=== PATIENT | female | born 1955 | race Caucasian/White ===

== ENCOUNTER → 2017-05-23 13:17 | Outpatient (CLI) | payer OTHER, MEDICAID, SELFPAY | PROVIDERS: Family Provider Family Medicine; PCP Family Medicine | DX: R69 Illness, unspecified (principal) | CPT/HCPCS: J0129 ==

== ENCOUNTER → 2017-05-31 10:06 | Outpatient (CLI) | payer MEDICAID, SELFPAY ==
[2017-05-31 10:15] VITALS: BP 140/74; PULSE 95; RESP 18; TEMP 36.5; O2SAT 97; BMI 25.7
== END ==
PROVIDERS: Family Provider Family Medicine; PCP Family Medicine
DX: M06.9 Rheumatoid arthritis, unspecified (principal)
CPT/HCPCS: 96365; A4216; J0129

== ENCOUNTER → 2017-07-01 14:30 | Outpatient (CLI) | payer MEDICAID, SELFPAY ==
[2017-07-01 14:45] VITALS: BP 111/67; PULSE 67; RESP 18; TEMP 36.3; O2SAT 96; BMI 25.7
== END ==
PROVIDERS: Family Provider Family Medicine; PCP Family Medicine
DX: M06.9 Rheumatoid arthritis, unspecified (principal)
CPT/HCPCS: 96365; A4216; J0129

== ENCOUNTER → 2017-07-25 16:03 | Outpatient (CLI) | payer MEDICAID, SELFPAY | PROVIDERS: Visit Provider Otolaryngology | DX: H92.10 Otorrhea, unspecified ear (principal) | CPT/HCPCS: 87070; 87075; 87186; 87205 ==

== ENCOUNTER → 2017-07-29 14:27 | Outpatient (CLI) | payer MEDICAID, SELFPAY ==
[2017-07-29 14:53] VITALS: BP 126/72; PULSE 85; RESP 18; TEMP 36.4; O2SAT 97
== END ==
PROVIDERS: Family Provider Family Medicine; PCP Family Medicine
DX: M06.9 Rheumatoid arthritis, unspecified (principal)
CPT/HCPCS: 96365; J7050; A4216; J0129

== ENCOUNTER → 2017-08-26 14:31 | Outpatient (CLI) | payer MEDICAID, SELFPAY ==
--- NOTE | 2017-08-26 14:00 | SPU_PTH ---
PATIENT: DAVID BERG LOC: LAB U#:[id number] AGE/SX: 69/F ROOM: RE08/26/[address]: Dr. Nnamdi Choi MD : 1955 BED: DIS: SPEC #: [id number] RECD: 08/27/17 12:39 STATUS: POLINA NELY #: [id number] DIANE: 08/26/17 14:[address]: Nnamdi Choi DEPT: CYTOLOGY RECD BY: Amadeo Sheffield ENTERED: 08/27/17 12:40 SP TYPE: Sputum Cy OTHR DR: Dr. 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 Special stain for acid fast bacilli is negative for organisms; matched control is appropriate. See cytology study and comment. SJ:rg 08/27/17 COMMENT Clinical correlation and appropriate follow up are necessary. CYTOLOGY STUDY Slides are reviewed. The specimen consists of benign squamous cells, macrophages, inflammatory cells and organisms consistent with bacteria. CYTOLOGY GROSS Received is 1.5 ml of thick yellow mucoid fluid labeled with the patient's name and and designated per the requisition as sputum. Submitted for cytology preparation. /SUBHASH/maximilian 08/27/17 TC:5 CPT: 30071, 66695
[2017-08-26 14:43] LABS: Acid Fast Stain SEE PATHOLOGY REPORT; Cytology, Body Fluid / CSF SEE PATHOLOGY REPORT
--- NOTE | 2017-08-28 | FLU_PTH ---
PATIENT: DAVID BERG LOC: [facility] U#:[id number] AGE/SX: 69/F ROOM: RE08/26/[address]: Dr. Nnamdi Choi MD : 1955 BED: DIS: SPEC #: [id number] RECD: 08/28/17 14:30 STATUS: POLINA NELY #: [id number] DIANE: 08/28/17 00:[address]: Nnamdi Choi DEPT: CYTOLOGY RECD BY: Gisela Dillard ENTERED: 08/28/17 14:31 SP TYPE: Fluid OTHR DR: Dr. 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 Special stain for acid fast bacilli is negative for organisms; matched control is appropriate. See cytology study and comment. SJ:rg 08/29/17 COMMENT Clinical correlation and appropriate follow up are necessary. Please make reference to previous cytology specimen ([id number]) sputum, negative for malignant cells. CYTOLOGY STUDY Slides are reviewed. The specimen consists of benign squamous cells, macrophages and neutrophils and organisms consistent with bacteria. CYTOLOGY GROSS Received is 1 ml of pink mucoid labeled with the patient's name and and designated per the requisition as sputum. Submitted for cytology preparation. / CC:cc 08/28/17 TC:5 CPT: 78199, 31431
[2017-08-28 13:44] LABS: Acid Fast Stain SEE PATHOLOGY REPORT; Cytology, Body Fluid / CSF SEE PATHOLOGY REPORT
== END ==
LOC: LABSPEC 08-23 14:47 → LAB 14:31
PROVIDERS: Family Provider Family Medicine; PCP Family Medicine; Visit Provider Internal Medicine Infectious Disease
DX: A15.0 Tuberculosis of lung (principal)
CPT/HCPCS: 88108; 88305; 88312; 88313

== ENCOUNTER → 2017-08-28 13:40 | Outpatient (CLI) | payer MEDICAID, SELFPAY ==
--- NOTE | 2017-08-28 13:48 | CT_ITS ---
STUDY: CT CHEST WITH CONTRAST REASON FOR EXAM: Female, 61 years old. Positive PPD. COPD RADIATION DOSAGE (If Supplied By Facility): CTDIvol = ( 10.38 ) mGy, DLP = ( 374.28 ) mGycm TECHNIQUE: Transaxial imaging was performed following intravenous administration of 100mL ml of Isovue 300 contrast material. Individualized dose optimization techniques were used for this CT. COMPARISON: None. FINDINGS: There are emphysematous changes of the lungs with emphysematous blebs. No infiltrates. No effusions. There is no demonstrated pleural abnormality. Normal heart and pericardium. Normal mediastinum. Normal hilar regions. Normal enhanced pulmonary arteries. Normal aorta arch and descending thoracic aorta. There are no demonstrated pulmonary emboli. Normal osseous structures. There is no demonstrated abnormality of the visualized upper abdomen. CT/Chest WITH Contrast IMPRESSION: COPD with no acute chest disease. Electronically Signed: Boubacar Sosa MD at 15:05 EDT , Service support ,
== END ==
PROVIDERS: Family Provider Family Medicine; PCP Family Medicine; Visit Provider Internal Medicine Infectious Disease
DX: A15.0 Tuberculosis of lung (principal)
CPT/HCPCS: 71260; Q9967

== ENCOUNTER → 2017-08-30 14:39 | Outpatient (CLI) | payer MEDICAID, SELFPAY ==
--- NOTE | 2017-08-30 | SPU_PTH ---
PATIENT: DAVID BERG LOC: [facility] U#:[id number] AGE/SX: 69/F ROOM: RE08/30/[address]: Dr. Nnamdi Choi MD : 1955 BED: DIS: SPEC #: [id number] RECD: 09/02/17 07:22 STATUS: POLINA GOODRICHNelida #: [id number] DIANE: 08/30/17 00:[address]: Nnamdi Choi DEPT: CYTOLOGY RECD BY: Guillermo Springer ENTERED: 09/02/17 07:22 SP TYPE: Sputum Cy OTHR DR: Dr. Rodney Pool MD Tissues: Sputum Procedures: Pap Stain (control) Special Stain Group II Special Stain Group I AFB Stain (control) Cytospin Fluid HEADER OPERATION: Not noted PRE-OP DIAGNOSIS: Tuberculosis TISSUE SUBMITTED: Sputum for cytology DIAGNOSIS CYTOLOGY Sputum for cytology (smears): Adequate for evaluation. Negative for malignant cells. Negative for acid-fast bacilli. AM:swapna 09/02/17 COMMENT AFB stain with matched control was used in the evaluation of this case. CYTOLOGY STUDY Slides are reviewed. CYTOLOGY GROSS Received is 1 ml of thick, yellow-beige mucoid fluid labeled with the patient's name and and designated per the requisition as sputum. Submitted for cytology preparation. / 08/30/17 TC:5 CPT: 58164, 00110
[2017-08-30 14:47] LABS: Acid Fast Stain SEE PATHOLOGY REPORT; Cytology, Body Fluid / CSF SEE PATHOLOGY REPORT
== END ==
PROVIDERS: Family Provider Family Medicine; PCP Family Medicine; Visit Provider Internal Medicine Infectious Disease
DX: A15.0 Tuberculosis of lung (principal)
CPT/HCPCS: 88108; 88312; 88313

== ENCOUNTER → 2017-08-30 16:59 | Outpatient (CLI) | payer MEDICAID, SELFPAY | PROVIDERS: Family Provider Family Medicine; PCP Family Medicine | DX: A15.0 Tuberculosis of lung (principal) | CPT/HCPCS: 88108; 88312; 88313; J0129 ==

== ENCOUNTER 2017-10-13 18:38 | Emergency (ER) | payer MEDICAID, SELFPAY ==
[2017-10-13 18:39] VITALS: BP 136/74; PULSE 77; RESP 22; TEMP 36.6; O2SAT 98; BMI 29.2
--- NOTE | 2017-10-13 19:17 | RAD_ITS ---
STUDY: X-RAY - LEFT FOOT CLINICAL: Female, 61 years old. Fall. Lateral ankle pain. TECHNIQUE: 3 view(s) of the foot. COMPARISON: None. FINDINGS: Normal talus, calcaneus, and tarsal bones. Normal visualized subtalar, talonavicular, calcaneocuboid, tarsal and tarsometatarsal articulations. There is a comminuted minimally displaced fracture of the base of the fifth metatarsal. An avulsion fracture of the tip of the lateral malleolus is also seen but is better seen on the dedicated ankle series. Normal metatarsophalangeal joint of the great toe. Normal tibial and fibular sesamoid bones. Normal interphalangeal joint of the great toe. Normal phalanges of the great toe. Normal second through fifth metatarsophalangeal joints. Normal interphalangeal joints and phalanges of the lesser toes. The soft tissue structures are unremarkable. RAD/Foot min 3 Views IMPRESSION: Fractures of the tip of the lateral malleolus and base of the fifth metatarsal as described. Electronically Signed: Carlos Calvin MD at 20:01 EDT , Service support ,
--- NOTE | 2017-10-13 19:19 | ED.VISSUMM ---
- ER Visit Summary Date of Service: 10/13/17 Chief Complaint: Left ankle pain History of Present Illness: The patient is a 61 F who presents with left ankle pain that began after a fall today. Patient states she fell down some wooden steps while carrying her dog. Patient denies any head injury or loss of consciousness. Patient states her pain is worse with any movement. Patient denies any knee pain. Patient denies any other injuries. Physical Examination: Vital signs are stable. Patient is afebrile. Patient is in no acute distress. Skin is warm and dry. There is superficial abrasions over the anterior ankle and lateral aspect of the left foot. There are no deep lacerations noted. There is no active bleeding. Musculoskeletal exam revealed tenderness, edema, and ecchymosis over the lateral aspect of the left ankle and left foot. There is no obvious deformity noted. Range of motion was limited in all motions of the left ankle secondary to pain. Pedal pulses are equal bilateral. Sensation was intact to light touch in all digits. Capillary refill is less than 2 seconds in all digits. There is no tenderness over the proximal fibula. Test Results: X-rays of the left ankle and left foot were obtained. There is a nondisplaced fracture of the left proximal fifth metatarsal. There is also a small avulsion of the lateral malleolus. Emergency Department Course and Treatment: Patient was placed in a boot orthosis. Patient was instructed to ice and elevate the left ankle. Patient was instructed to follow-up with orthopedics in 5-7 days. Patient understood and was agreeable with the plan. All questions were answered. Disposition: Discharged home Impression: Left fifth metatarsal fracture This note was generated with [employer] dictation software. It may contain incorrect words, spelling, and punctuation that were not noted in review of the chart prior to signing ED Disposition - Plan for ED Patient: Disposition: Home or Assisted Living Chief Complaint: Lower Extremity Injury Diagnosis: Nondisplaced fracture of fifth left metatarsal bone Instructions: ED Fx Foot Prescriptions: Hydrocodone Bitart/Apap 5-325 [[place] 5MG-325MG] 1 tab PO Q6H PRN PRN 3 Days #12 tab PRN Reason: Pain Referrals: Rodney Pool MD [Primary Care Provider] -
--- NOTE | 2017-10-13 19:25 | ED.DCSUM_ITS ---
- ER Visit Summary Date of Service: 10/13/17 Chief Complaint: Left ankle pain History of Present Illness: The patient is a 61 F who presents with left ankle pain that began after a fall today. Patient states she fell down some wooden steps while carrying her dog. Patient denies any head injury or loss of consciousness. Patient states her pain is worse with any movement. Patient denies any knee pain. Patient denies any other injuries. Physical Examination: Vital signs are stable. Patient is afebrile. Patient is in no acute distress. Skin is warm and dry. There is superficial abrasions over the anterior ankle and lateral aspect of the left foot. There are no deep lacerations noted. There is no active bleeding. Musculoskeletal exam revealed tenderness, edema, and ecchymosis over the lateral aspect of the left ankle and left foot. There is no obvious deformity noted. Range of motion was limited in all motions of the left ankle secondary to pain. Pedal pulses are equal bilateral. Sensation was intact to light touch in all digits. Capillary refill is less than 2 seconds in all digits. There is no tenderness over the proximal fibula. Test Results: X-rays of the left ankle and left foot were obtained. There is a nondisplaced fracture of the left proximal fifth metatarsal. There is also a small avulsion of the lateral malleolus. Emergency Department Course and Treatment: Patient was placed in a boot orthosis. Patient was instructed to ice and elevate the left ankle. Patient was instructed to follow-up with orthopedics in 5-7 days. Patient understood and was agreeable with the plan. All questions were answered. Disposition: Discharged home Impression: Left fifth metatarsal fracture This note was generated with [employer] dictation software. It may contain incorrect words, spelling, and punctuation that were not noted in review of the chart prior to signing ED Disposition - Plan for ED Patient: Disposition: Home or Assisted Living Chief Complaint: Lower Extremity Injury Diagnosis: Nondisplaced fracture of fifth left metatarsal bone Instructions: ED Fx Foot Prescriptions: Hydrocodone Bitart/Apap 5-325 [[place] 5MG-325MG] 1 tab PO Q6H PRN PRN 3 Days #12 tab PRN Reason: Pain Referrals: Rodney Pool MD [Primary Care Provider] -
[2017-10-13] MEDS: Morphine 4 MG/ML Syringe IV (19:34)
--- NOTE | 2017-10-13 19:40 | RAD_ITS ---
STUDY: X-RAY - LEFT ANKLE REASON FOR EXAM: Female, 61 years old. Fall. Lateral pain and swelling. TECHNIQUE: 3 view(s) of the ankle. COMPARISON: None. FINDINGS: There is a minimally displaced avulsion fracture of the tip of the lateral malleolus. There is overlying soft tissue swelling. Normal tibiotalar articulation and ankle mortise. There is a comminuted minimally displaced fracture of the base of the fifth metatarsal. Normal visualized talus and calcaneus. The visualized subtalar, talonavicular, calcaneocuboid and tarsal articulations are normal. The soft tissue structures are otherwise unremarkable. RAD/Ankle min 3 Views IMPRESSION: Minimally displaced avulsion fracture of the tip of the lateral malleolus with overlying soft tissue swelling. Comminuted transverse fracture of the base of the fifth metatarsal. Electronically Signed: Carlos Calvin MD at 20:00 EDT , Service support ,
[2017-10-13 21:14] VITALS: BP 136/87; PULSE 87; RESP 14; O2SAT 97
--- NOTE | 2017-10-13 21:15 | ED.RN ---
PT GIVEN WRITTEN AND VERBAL DISCHARGE INSTRUCTIONS AND HOME GOING PRESCRIPTIONS. PT VERBALIZES UNDERSTANDING, THIS RN EDUCATED PT ON PRESCRIPTION, USE AND SIDE EFFECTS. WALKING BOOT PLACED. PT EDUCATED ON USE OF BOOT AND CARE AT HOME. PT IV D/C AND COVERED WITH 2X2 GAUZE. LEG ABRASIONS WRAPPED. PT PLACED IN WHEELCHAIR AND WHEELED TO FAMILY VEHICLE.
== END 2017-10-13 21:21 | disposition home or self-care (01) ==
PROVIDERS: Emergency Provider Emergency Medicine; Family Provider Family Medicine; PCP Family Medicine
DX: S92.355A Nondisplaced fracture of fifth metatarsal bone, left foot, initial encounter for closed fracture (principal); S90.512A Abrasion, left ankle, initial encounter; W10.9XXA Fall (on) (from) unspecified stairs and steps, initial encounter; Y93.9 Activity, unspecified; Y92.9 Unspecified place or not applicable; M06.9 Rheumatoid arthritis, unspecified; Z87.891 Personal history of nicotine dependence; Z79.899 Other long term (current) drug therapy
CPT/HCPCS: 73610; 73630; 96374; 99285; A4216

== ENCOUNTER 2017-12-06 18:39 | Emergency (ER) | payer MEDICAID, SELFPAY ==
[2017-12-06 18:40] VITALS: BP 132/82; PULSE 90; RESP 18; TEMP 37.2; O2SAT 94; BMI 25.7
[2017-12-06] MEDS: Dicyclomine 10 MG Capsule 20 MG PO (19:59)
[2017-12-06] MEDS: Ondansetron 4 MG/2 ML Vial IV (20:01)
[2017-12-06] MEDS: Morphine 4 MG/ML Syringe IV (20:01)
[2017-12-06] MEDS: 0.9% Normal Saline 1,000 ML 1000 ML IV (20:02)
[2017-12-06 20:22] LABS: Absolute Neutrophil Count 6.7 X10^3/uL (2.0-7.7); Basophil# 0.01 X10^3/uL; Basophil% 0.1 % (0-1); Eosinophil# 0.02 X10^3/uL; Eosinophils% 0.2 % (0-5); Hematocrit 41.8 % (37-47); Hemoglobin 13.8 g/dl (12.0-15.0); Lymphocyte % 29.7 % (19-41); Mean Corpuscular Volume 93.9 fL (81-99); Mean Platelet Vol. 10.4 fl (6.2-12.0); Monocyte% 5.7 % (0-10); Neutrophil % 64.1 % (47-70); POSITIVE COUNT NO; POSITIVE DIFFERENTIAL NO; Platelet Count 272 K/mm3 (150-450); RBC Distribution Width CV 14.4 % (11.6-14.6); RBC Distribution Width SD 49.3 fl (35.1-43.9); Red Blood Count 4.45 M/mm3 (4.2-5.4); White Blood Count 10.5 K/mm3 (4.4-11.0)
[2017-12-06 20:23] LABS: POSITIVE MORPHOLOGY NO
[2017-12-06 20:42] LABS: AST(SGOT) 21 U/L (15-37); Alanine Aminotransfer ALT/SGPT 17 U/L (13-56); Albumin, Serum 3.5 g/dL (3.2-5.0); Alkaline Phosphatase 70 U/L (45-117); Anion Gap 9 (5-15); BUN 17 mg/dL (7-18); BUN/Creat Ratio 20.4 RATIO (10-20); Bilirubin, Direct 0.06 mg/dL (0.00-0.30); Calcium,Total 9.3 mg/dL (8.5-10.1); Chloride 104 mmol/L (98-107); Creatinine, Serum 0.83 mg/dL (0.55-1.02); EST Glomerular Filtration Rate 74 mL/min (>60); Est Glom Filt Rate - Afr Amer 90 mL/min (>60); Estimated Creatinine Clearance 62.24 ml/min; Globulin 4.1 g/dL (2.2-4.2); Glucose 118 mg/dL (74-106); Lipase 209 U/L (73-393); Potassium 3.8 mmol/L (3.5-5.1); Protein, Total 7.6 g/dL (6.4-8.2); Sodium Level 138 mmol/L (136-145)
[2017-12-06 21:06] LABS: Bacteria 0 SEEN /hpf (None Seen); Mucous, Urine 0 SEEN /hpf (<or=2+); Red Blood Cells-Urine 0 SEEN /hpf (0-5)
[2017-12-06 21:11] LABS: Color, Urine Yellow (Yellow); Glucose, Dipstick Normal (Normal); Ketone-Dipstick Negative (Negative); Leukocyte Esterase-Dipstick 100 /ul (Negative); Nitrite-Dipstick Negative (Negative); Occult Blood-Urine Negative /ul (Negative); Protein-Dipstick Negative (Negative); Urine Bilirubin Dipstick Negative (Negative); Urine Clarity Clear (Clear); Urine Urobilinogen Normal (Normal)
[2017-12-06 21:13] LABS: Lactic Acid 1.3 mmol/L (0.4-2.0)
[2017-12-06 21:34] LABS: Amorphous Sediment 1+; Squamous Epithelial Cells - UA 0-5 SEEN /hpf (5-10); White Blood Cells 0-5 SEEN /hpf (0-5)
[2017-12-06 22:40] VITALS: BP 129/81; PULSE 76; RESP 16; O2SAT 97
--- NOTE | 2017-12-06 23:46 | ED.DCSUM_ITS ---
- ER Visit Summary Date of Service: 12/06/17 Chief Complaint: Abdominal pain History of Present Illness: The patient is a [address] Pool. She reports her last bout was 3 days ago and typically she goes 3 times a day. She starts that she took 3 stool softeners and a Dulcolax yesterday. She performed an enema yesterday. Today she drank a bottle of mag citrate and is still not had about bowel movement. 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 Patient reports that she has diffuse abdominal pain began 2 days ago. Sick continuous waxing and waning pain. Is 1010 hrs. and 710 currently. Is worsened by nothing relieved by heating pad. She reports is been nausea and vomiting. This began yesterday. She is vomited 10 times. No blood or emesis. Patient reports she had a colonoscopy approximately 7 years ago. Physical Examination: Vitals: Stable. Afebrile. General: Well-nourished and well-developed. Head: Normocephalic atraumatic. Neck: Supple, no lymphadenopathy. No JVD. Nontender. Cardiovascular: Regular rate and rhythm. No murmurs. Respiratory: No respiratory distress. Clear to auscultation bilaterally. Abdominal: Soft, mild diffuse tenderness palpation and moderate left lower quadrant suprapubic tenderness, nondistended, normal bowel sounds. No guarding , rebound, or peritoneal signs. Back: Nontender. Extremities: Nontender, no edema. Skin: Normal color, no rash. Neurologic: Alert and oriented ?3. Cranial nerves II through XII are intact. Normal strength and sensation. Psych: Normal affect. Test Results: CBC is normal. Chem-7 is more for glucose of 118. LFTs are normal. Lipase normal. UA is negative. Lactic acid is 1.3. Clinical Impression(s) from Imaging Studies [facility] X-Ray 12/06/17 18:50 IMPRESSION: Nonspecific moderate general increase in bowel gas, predominantly colonic bowel gas with moderate stool. Cholelithiasis. Electronically Signed: Cristiana Castro MD at 19:45 EDT , Service support , Abdomen/Pelvis CT 08/24/18 19:16 IMPRESSION: Stool filled colon with dense solid stool of the sigmoid and distal colon, potential impaction. Minimal diverticulosis of the colon without evidence of diverticulitis. Some general stranding of the transverse mesial colon, nonspecific not apparently related to peridiverticular inflammation. Mild free fluid of the pelvis. Otherwise negative for bowel obstruction or perforation. A normal appendix is visualized. Negative for pelvic mass or free fluid of the pelvis. Cholelithiasis in a nondistended gallbladder. Mild general dilatation of the pancreatic duct without a visible abnormality of the pancreatic head on noncontrast CT imaging. No acute renal findings. Negative for hydronephrosis, renal, ureteral or bladder stones. Electronically Signed: Cristiana Castro MD at 20:48 EDT , Service support , Emergency Department Course and Treatment: Patient was treated morphine and Zofran IV. She was given Bentyl p.o. She is resting comfortably. She was treated with a soapsuds enema with no results. Treatment Plan: I do not feel the patient requires admission to the hospital. I do think that she could benefit from an outpatient colonoscopy. She will be discharged with instructions to use sorbitol to get her bowels to move. And follow-up with Dr. Griffith in 1-2 weeks for further evaluation and potential colonoscopy. She is for instructed to follow with her primary care physician 1- 2 days if she does not have a bowel movement. Return to the emergency department for any worsening symptoms. Disposition: To home in improved and stable condition. Impression: 1. Constipation. This note was generated with [employer] dictation software. It may contain incorrect words, spelling, and punctuation that were not noted in review of the chart prior to signing ED Disposition - Plan for ED Patient: Chief Complaint: Abd Pain Instructions: ED Constipation Referrals: Rodney Pool MD [Primary Care Provider] - 1-2 Days if not improving Leesa Griffith MD [STAFF PHYSICIAN] - 1-2 Weeks Additional Instructions: Icebreakers with sorbitol
[2017-12-07 00:11] VITALS: BP 127/79; PULSE 82; RESP 16; O2SAT 97
== END 2017-12-07 00:13 | disposition home or self-care (01) ==
PROVIDERS: Emergency Provider Emergency Medicine; Family Provider Family Medicine; PCP Family Medicine
DX: K59.00 Constipation, unspecified (principal); R06.00 Dyspnea, unspecified; R51 Headache; K57.30 Diverticulosis of large intestine without perforation or abscess without bleeding; K80.20 Calculus of gallbladder without cholecystitis without obstruction; J44.9 Chronic obstructive pulmonary disease, unspecified; G43.909 Migraine, unspecified, not intractable, without status migrainosus; Z86.39 Personal history of other endocrine, nutritional and metabolic disease; Z79.899 Other long term (current) drug therapy; Z87.891 Personal history of nicotine dependence
CPT/HCPCS: 74018; 74176; 80048; 80076; 81001; 83605; 83690; 85025; 96361; 96374; 96375; 99285; A4216; J2405

== ENCOUNTER 2017-12-07 10:38 | Observation (INO) | payer MEDICAID, SELFPAY ==
[2017-12-07 10:38] VITALS: BP 153/75; PULSE 88; RESP 18; TEMP 36.6; O2SAT 97; BMI 25.7
[2017-12-07 11:34] LABS: Absolute Lymphocyte Count 2.03 X10^3/ul (0.83-4.51); Absolute Neutrophil Count 5.7 X10^3/uL (2.0-7.7); Basophil# 0.01 X10^3/uL; Basophil% 0.1 % (0-1); Eosinophil# 0.03 X10^3/uL; Eosinophils% 0.4 % (0-5); Hematocrit 39.9 % (37-47); Hemoglobin 12.9 g/dl (12.0-15.0); Lymphocyte # 2.03 X10^3/ul (4.0); Lymphocyte % 24.8 % (19-41); Mean Corp Hgb Conc 32.3 g/gl (32-36); Mean Corpuscular Hgb 30.6 pg (27.0-32.0); Mean Corpuscular Volume 94.5 fL (81-99); Mean Platelet Vol. 9.9 fl (6.2-12.0); Monocyte# 0.42 X10^3/uL; Monocyte% 5.1 % (0-10); Neutrophil # 5.68 X10^3/uL (2.7-7.7); Neutrophil % 69.5 % (47-70); Platelet Count 280 K/mm3 (150-450); RBC Distribution Width CV 14.5 % (11.6-14.6); RBC Distribution Width SD 49.6 fl (35.1-43.9); Red Blood Count 4.22 M/mm3 (4.2-5.4); White Blood Count 8.2 K/mm3 (4.4-11.0)
[2017-12-07 11:35] LABS: POSITIVE COUNT NO; POSITIVE DIFFERENTIAL NO; POSITIVE MORPHOLOGY NO
[2017-12-07] MEDS: Morphine 4 MG/ML Syringe IV (11:39)
[2017-12-07] MEDS: 0.9% Normal Saline 1,000 ML 999 ML IV (11:39)
[2017-12-07 11:40] LABS: Anion Gap 8 (5-15); BUN 12 mg/dL (7-18); Calcium,Total 8.9 mg/dL (8.5-10.1); Chloride 107 mmol/L (98-107); EST Glomerular Filtration Rate 78 mL/min (>60); Est Glom Filt Rate - Afr Amer 94 mL/min (>60); Estimated Creatinine Clearance 64.58 ml/min; Glucose 112 mg/dL (74-106); Potassium 3.9 mmol/L (3.5-5.1); Sodium Level 139 mmol/L (136-145)
[2017-12-07] MEDS: Ondansetron 4 MG/2 ML Vial IV ×2 (11:40→21:16)
--- NOTE | 2017-12-07 11:44 | ED.RN ---
Gastrograph ordered as med by Dr Harrison, not showing on JUN. 50ml po given to pt as ordered.
[2017-12-07] MEDS: proMETHazine 25 MG/ML Syringe 6.25 MG IV (11:52)
[2017-12-07 12:14] VITALS: BP 136/90; PULSE 94; RESP 16; O2SAT 93
[2017-12-07 13:02] VITALS: BP 120/88; PULSE 88; RESP 16; O2SAT 95
--- NOTE | 2017-12-07 13:46 | ED.VISSUMM ---
- ER Visit Summary Date of Service: 12/07/17 Chief Complaint: Constipation History of Present Illness: The patient is a 62 F whose had constipation for the past 4 days. On the she took 3 stool softeners, Dulcolax, and an enema. On the she drank a bottle of mag citrate at home without improvement. She was seen in the emergency room that evening and a soapsuds enema was performed. Further workup including x-rays and CT were also performed that revealed significant compact stool in the sigmoid and distal descending colon that may represent impaction. After leaving the emergency room last evening patient performed 2 additional enemas and did take sorbitol. This morning she has taken 2 enemas without improvement. She is complaining of significant pain and cramping. Physical Examination: Vital signs are unremarkable. Patient is lying in bed. She is uncomfortable but in no distress. Heart is regular rate and rhythm. Lung sounds are clear. Abdomen is soft with mild diffuse tenderness. There is no guarding or rebound. Hypoactive but present bowel sounds are noted. Test Results: Workup from yesterday was reviewed. CBC and chemistry studies today are unremarkable. Emergency Department Course and Treatment: Patient was given a dose of morphine and Zofran to control her pain on arrival. I did discuss the case with Dr. Griffith. She recommended 50 mL of Gastrografin p.o. and see if that will help. I was advised by nursing that shortly after drinking that she did vomit and we are unsure how much she cut down. She was given a dose of Phenergan. Patient has been up ambulating to the restroom multiple times to urinate, but has not had a bowel movement. At this time she will require hospitalization for Gastrografin enema, which will not be able to be performed until Saturday. At this time patient be admitted for GoLYTELY and if she is not getting results will likely require a Gastrografin enema on Saturday. I did discuss this with the hospitalist. He wants to ensure the patient does not have expectation receiving narcotics for abdominal pain. I just went and discussed this with the patient and family member in the room. I advised that we can give her something for pain, but no narcotics would be used in her treatment. Treatment Plan: [] Disposition: Admit Impression: Constipation This note was generated with [employer] dictation software. It may contain incorrect words, spelling, and punctuation that were not noted in review of the chart prior to signing ED Disposition - Plan for ED Patient: Chief Complaint: Constipation Referrals: Rodney Pool MD [Primary Care Provider] -
--- NOTE | 2017-12-07 14:39 | PCM.HP.STD ---
Problem List (1) Constipation Status: Acute Qualifiers: Constipation type: unspecified constipation type Qualified Code(s): K59.00 - Constipation, unspecified History of Present Illness Date of Admission: 12/07/17 Chief Complaint: abdominal pain. The patient is a 62 year old F presents with 4-5 days of constipation. Patient has tried numerous laxatives and enemas. Was seen in . Had a CAT scan images confirm constipation. Patient tried magnesium citrate yesterday with no relief in the presented again to the emergency room. Patient did receive morphine in the emergency room and actually the day before. Patient does not take narcotics at home, however. The hospital service was asked to admit the patient for constipation lately and if all else fails to get a Gastrografin enema which not would not be able to be performed until the . Patient inquiring if that she is going to be under conscious sedation or knocked out for her Gastrografin enema she was informed that she would not. Patient states that she has had bouts of constipation and up until recently when she was starting treatment for latent tuberculosis where she is on bowel movements about every 1-2 days but prior to that was about every 3 days. [] Past Medical History Past Medical History (Chronic Problems): Chronic Problems TIA (transient ischemic attack) (Chronic) Tobacco use disorder (Chronic) Rheumatoid arthritis (Chronic) Mitral valve disorder (Chronic) Hyperlipidemia (Chronic) Chronic obstructive lung disease (Chronic) Medical History: Medical History (Last Updated 12/07/17 @ 14:43 by Mehran Dodd DO) Anxiety F41.9 Latent tuberculosis R76.11 Rheumatoid arthritis M06.9 TIA (transient ischemic attack) G45.9 Allergies acetaminophen [From Darvocet-N 100] Allergy (Verified 12/07/17 10:56) Hives codeine Allergy (Verified 12/07/17 10:56) Hives oxaprozin [From Daypro] Allergy (Verified 12/07/17 10:56) Hives oxybutynin Allergy (Verified 12/07/17 10:56) Unknown pentazocine lactate [From Talwin] Allergy (Verified 12/07/17 10:56) Itching propoxyphene HCl [From Darvon] Allergy (Verified 12/07/17 10:56) Hives propoxyphene napsylate [From Darvocet-N 100] Allergy (Verified 12/07/17 10:56) Hives rofecoxib [From Vioxx] Allergy (Verified 12/07/17 10:56) Rash tramadol HCl [From Ultram] Allergy (Verified 12/07/17 10:56) Upset Stomach cyclobenzaprine HCl [From Flexeril] Adverse Reaction (Verified 12/07/17 10:56) Upset Stomach venlafaxine HCl [From Effexor] Adverse Reaction (Verified 12/07/17 10:56) Upset Stomach PINE Allergy (Uncoded 12/07/17 10:56) Hives Home Medications: Ambulatory Orders Medication Instructions Recorded ALPRAZolam [Xanax] 1 mg PO BID PRN 12/16/13 Alendronate Sodium [Fosamax] 70 mg PO Q7D@0700 12/16/13 Carisoprodol 350 mg PO TID 12/16/13 Multivitamins,Therapeutic 1 tab PO DAILY 12/16/13 Quetiapine Fumarate [Seroquel] 200 mg PO QHS 12/16/13 Sodium Chloride 1 gm PO 5X/DAY 12/16/13 Ondansetron [Zofran Odt] 4 mg PO Q8H PRN PRN #10 tablet 05/06/17 Rizatriptan Benzoate [Maxalt] 10 mg PO PRN PRN 05/06/17 Abatacept [Orencia] 500 mg IV X1 12/06/17 Rifampin [Rifadin] 300 mg PO BID 12/06/17 Surgical History: reconstruction Smoking Status: Former smoker Tobacco Use: Non-smoker Alcohol: None Drugs: None - *Family History Paternal History Items: Heart Disease Review of Systems Constitutional: Denies: Chills, Fever, Weight Change Eyes: Denies: Blurred vision HEENT: Denies: Head Aches, Sinus Congestion, Sinus Drainage Cardiovascular: Denies: Chest Pain, Palpitations Respiratory: Denies: Cough, Shortness of breath at rest, Sputum production Gastrointestinal: Reports: Abdominal Pain, Constipation, Nausea. Denies: Vomiting Genitourinary: Reports: Dysuria Musculoskeletal: Denies: Joint Pain, Joint Tenderness Skin: Denies: Rash, Wounds Neurological: Denies: Numbness, Tingling, Focal weakness Psychiatric: Denies: Anxiety, Depression Endocrine: Denies: Change in Body Habitus Hematologic/ Lymphatic: Denies: Easy Bruising, Easy Bleeding, Hx of blood clot Comment: All review of systems are negative except as mentioned in the history of present illness and the other review of systems. VTE Information - Inpt Only VTE Present on Admission: No VTE Mechan Device Prophylaxis: None VTE Pharm Prophylaxis ordered?: Yes - Physical Exam General: Alert, No apparent distress HEENT: Atraumatic, Normocephalic Oral: Moist Mucosa, No Gingival or Mucosal Lesions/ Ulcerations Neck: No Nodes, Thyroid Normal Size and Texture Lungs: Clear to auscultation, Normal air movement, No rhonchi, No wheeze Cardiovascular: Regular rate, Regular Rhythm, Normal S1, Normal S2, No murmurs Abdomen: Bowel Sounds Present, Soft, Non-Distended, Tender Extremities: No edema, No Calf Tenderness Skin: No rashes, No breakdown Psych/Mental Status: Appropriate, Flat Affect Vital Signs Temp Pulse Resp BP Pulse Ox 36.6 C 88 16 120/88 H 95 12/07/17 10:38 12/07/17 13:02 12/07/17 13:02 12/07/17 13:02 12/07/17 13:02 Oxygen Delivery Method Room Air Weight: 68.039 kg Body Mass Index (BMI) 25.7 Finger Stick Blood Glucose 84 Laboratory Tests Past 24 Hrs 12/07/17 12/07/17 11:20 11:20 WBC 8.2 RBC 4.22 Hgb 12.9 Hct 39.9 MCV 94.5 MCH 30.6 MCHC 32.3 RDW 14.5 RDW Differential 49.6 H Plt Count 280 MPV 9.9 Immature Gran % (Auto) 0.100 Neut % (Auto) 69.5 Lymph % (Auto) 24.8 [place] % (Auto) 5.1 Eos % (Auto) 0.4 Baso % (Auto) 0.1 Absolute Neuts (auto) 5.7 Absolute Lymphs (auto) 2.03 Total Counted Not Reportable Sodium 139 Potassium 3.9 Chloride 107 Carbon Dioxide 24.0 Anion Gap 8 BUN 12 Creatinine 0.80 Estim Creat Clear Calc 64.58 Est GFR (MDRD) Af Amer 94 Est GFR (MDRD) Non-Af 78 BUN/Creatinine Ratio 15.0 Glucose 112 H Calcium 8.9 Assessment/Plan All Active Problems Constipation (Acute) 1. Constipation Patient is on no obvious medications that would induce consultation at home The plan is to give the patient GoLYTELY and monitor her response If patient does not respond to GoLYTELY and then the plan would be to have a Gastrografin enema performed on the Patient is having abdominal pain and fortunately has an allergy to acetaminophen but patient will receive Toradol as needed for pain. Patient was made aware of the risks of constipation with opiates and that she would not be receiving any opiates while she is here in the hospital Patient also advised that she would not have conscious sedation for a Gastrografin enema if she were to require it. 2. Latent tuberculosis Continue with rifampin Follow-up with infectious disease, patient does not really know who her infectious disease physician is 3. DVT prophylaxis with Lovenox Code Visit Inpatient E&M: 70546 Init Hosp L2
[2017-12-07 15:00] VITALS: BMI 25.7; BMI 26.2
[2017-12-07 15:06] VITALS: BP 124/68; PULSE 81; RESP 16; TEMP 37.1; O2SAT 95
[2017-12-07] MEDS: Electrolyte Solution/Peg's 4000 ML 2000 ML PO (17:19)
[2017-12-07] MEDS: Rizatriptan Benzoate 10 MG Tablet PO (17:23)
[2017-12-07] MEDS: SODIUM CHLORIDE 1 GM TABLET PO (17:23)
[2017-12-07] MEDS: 0.9% NaCl Peripheral Flush Adult/Peds IV (21:19)
[2017-12-07 21:20] VITALS: BP 134/81; PULSE 76; RESP 16; TEMP 37; O2SAT 97
[2017-12-08] MEDS: 0.9% NaCl Peripheral Flush Adult/Peds IV ×2 (01:15→07:39)
[2017-12-08] MEDS: Ketorolac 30 MG/ML Syringe IV ×2 (01:15→07:39)
[2017-12-08 05:10] VITALS: BP 140/82; PULSE 73; RESP 18; TEMP 36.8; O2SAT 96
[2017-12-08] MEDS: Ondansetron 4 MG/2 ML Vial IV (07:34)
[2017-12-08 08:55] VITALS: BP 127/76; PULSE 77; RESP 18; TEMP 37.1; O2SAT 96
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
[2017-12-08] MEDS: 0.9% Normal Saline 1,000 ML 150 ML IV (10:12)
[2017-12-08] MEDS: Enoxaparin 40 MG/0.4 ML Syringe SC (10:16)
[2017-12-08] MEDS: Dicyclomine 10 MG Capsule 20 MG PO (12:32)
--- NOTE | 2017-12-08 14:40 | PCM.DC ---
You will use the following diet at home:: No restrictions, High fiber Your food should be the consistency of: Regular Your liquids should be the consistency of: Regular/Thin Discharge Activity: Return to Normal Activity Call your doctor if you observe: Fever of 101 or Higher, - - worsening abdominal pain. no bowel movement in 4 days Allergies/Adverse Reactions: Allergies acetaminophen [From Darvocet-N 100] Allergy (Verified 12/07/17 10:56) Hives codeine Allergy (Verified 12/07/17 10:56) Hives oxaprozin [From Daypro] Allergy (Verified 12/07/17 10:56) Hives oxybutynin Allergy (Verified 12/07/17 10:56) Unknown pentazocine lactate [From Talwin] Allergy (Verified 12/07/17 10:56) Itching propoxyphene HCl [From Darvon] Allergy (Verified 12/07/17 10:56) Hives propoxyphene napsylate [From Darvocet-N 100] Allergy (Verified 12/07/17 10:56) Hives rofecoxib [From Vioxx] Allergy (Verified 12/07/17 10:56) Rash tramadol HCl [From Ultram] Allergy (Verified 12/07/17 10:56) Upset Stomach cyclobenzaprine HCl [From Flexeril] Adverse Reaction (Verified 12/07/17 10:56) Upset Stomach venlafaxine HCl [From Effexor] Adverse Reaction (Verified 12/07/17 10:56) Upset Stomach PINE Allergy (Uncoded 12/07/17 10:56) Hives Medications to take at Discharge ALPRAZolam [Xanax] 1 mg PO BID PRN 12/16/13 Alendronate Sodium [Fosamax] 70 mg PO Q7D@0700 12/16/13 Carisoprodol 350 mg PO TID 12/16/13 Multivitamins,Therapeutic 1 tab PO DAILY 12/16/13 Quetiapine Fumarate [Seroquel] 200 mg PO QHS 12/16/13 Sodium Chloride 1 gm PO 5X/DAY 12/16/13 Rizatriptan Benzoate [Maxalt] 10 mg PO PRN PRN 05/06/17 Rifampin [Rifadin] 300 mg PO BID 12/06/17 Bisacodyl [Dulcolax] 10 mg PO DAILY PRN #1 tab 12/08/17 Dicyclomine HCl [Bentyl] 20 mg PO TID PRN #20 capsule 12/08/17 Ondansetron [Zofran Odt] 4 mg PO Q8H PRN PRN #15 tab 12/08/17 Polyethylene Glycol 3350 [Miralax] 17 gm PO DAILY #1 packet 12/08/17 The following prescriptions were given: Ondansetron [Zofran Odt] 4 mg PO Q8H PRN PRN #15 tab PRN Reason: Nausea Bisacodyl [Dulcolax] 10 mg PO DAILY PRN #1 tab PRN Reason: Constipation Polyethylene Glycol 3350 [Miralax] 17 gm PO DAILY #1 packet Dicyclomine HCl [Bentyl] 20 mg PO TID PRN #20 capsule PRN Reason: abdominal cramps Primary Care Physician: Rodney Pool MD [Primary Care Provider] - Within 1 Week Test Results: Test results from this visit will be discussed in further detail at your follow-up appointment, if applicable. Proposed Discharge Date: 12/08/17
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
[2017-12-08 15:40] VITALS: BP 128/70; PULSE 60; RESP 18; TEMP 36.8; O2SAT 98
== END 2017-12-08 16:02 | disposition home or self-care (01) ==
LOC: ED 11:30 → MS3 12-09 00:14
PROVIDERS: Emergency Provider Emergency Medicine; Family Provider Family Medicine; PCP Family Medicine
DX: K59.00 Constipation, unspecified (principal); M06.9 Rheumatoid arthritis, unspecified; E78.5 Hyperlipidemia, unspecified; J44.9 Chronic obstructive pulmonary disease, unspecified; Z86.73 Personal history of transient ischemic attack (TIA), and cerebral infarction without residual deficits; Z87.891 Personal history of nicotine dependence; Z79.899 Other long term (current) drug therapy; R76.11 Nonspecific reaction to tuberculin skin test without active tuberculosis
CPT/HCPCS: 80048; 85025; 96361; 96372; 96374; 96375; 96376; 97161; 97165; 97802; 99218; J7030; A4216; G0378; J2405

== ENCOUNTER → 2017-12-31 14:30 | Outpatient (CLI) | payer MEDICAID, SELFPAY ==
--- NOTE | 2017-12-31 14:34 | CT_ITS ---
STUDY: CT LOWER EXTREMITY, LEFT, WITHOUT CONTRAST. REASON FOR EXAM: Female, 62 years old. Fall in September. Fracture of 5th metatarsal. RADIATION DOSAGE (If Supplied By Facility): CTDIvol = ( 15.35 ) mGy, DLP = ( 342.25 ) mGycm. Individualized dose optimization techniques were used for this CT.? TECHNIQUE: Thin slice helical CT acquisition was performed through the left ankle and foot without IV contrast, with coronal and sagittal 2-D multiplanar reformatted images saved to the PACS archive. COMPARISON: X-ray foot 10/13/2017 FINDINGS: Generalized osteopenia. There is mild DJD of the interphalangeal joints of each digit. There is mild DJD at the 1st digit metatarsophalangeal joint. Normal appearance of the ankle joint and subtalar joint. Normal appearance of the intertarsal and tarsometatarsal articulations. Tiny fracture fragment from the base of the lateral malleolus. There is soft tissue swelling overlying the lateral malleolus and extending into the dorsolateral foot. There is a 3 mm metallic focus in the soft tissues of the foot, overlying the 5th tarsometatarsal articulation. Uncertain significance of this foreign body. The fracture at the base of the 5th metatarsal is fused, a small residual cleft inferior lateral aspect with corticated margins. CT/Extremity Lower without Contra IMPRESSION: The fracture at the base of the 5th metacarpal exhibits appropriate union, with a small residual cleft of its inferior lateral aspect that has densely corticated margins consistent with healing. Tiny residual fracture fragment of cortical avulsion from the tip of the lateral malleolus. Lateral ankle and dorsal lateral foot soft tissue swelling. Tiny metallic radiodense foreign body as described above of uncertain significance. Electronically Signed: Guillermo Salazar, at 12:51 EDT Tel , Service support ,
== END ==
PROVIDERS: Family Provider Family Medicine; PCP Family Medicine; Visit Provider Podiatrist
DX: S92.352A Displaced fracture of fifth metatarsal bone, left foot, initial encounter for closed fracture (principal); S82.62XA Displaced fracture of lateral malleolus of left fibula, initial encounter for closed fracture
CPT/HCPCS: 73700

== ENCOUNTER → 2018-01-29 14:34 | Outpatient (CLI) | payer OTHER, MEDICAID, SELFPAY ==
[2018-01-29 14:59] VITALS: BP 120/70; PULSE 80; RESP 16; TEMP 36.4; O2SAT 90; BMI 25.7
== END ==
PROVIDERS: Family Provider Family Medicine; PCP Family Medicine
DX: M06.9 Rheumatoid arthritis, unspecified (principal)
CPT/HCPCS: 96365; J7050; A4216; J0129

== ENCOUNTER → 2018-02-26 14:59 | Outpatient (CLI) | payer OTHER, MEDICAID, SELFPAY ==
[2018-02-26 15:09] VITALS: BP 133/82; PULSE 83; RESP 16; TEMP 36.9; O2SAT 93; BMI 25.7
== END ==
PROVIDERS: Family Provider Family Medicine; PCP Family Medicine
DX: M06.9 Rheumatoid arthritis, unspecified (principal)
CPT/HCPCS: 96365; J7050; A4216; J0129

== ENCOUNTER → 2018-03-27 14:33 | Outpatient (CLI) | payer OTHER, MEDICAID, SELFPAY ==
[2018-02-26 15:09] VITALS: BMI 25.7
[2018-03-27 14:53] VITALS: BP 121/72; PULSE 93; RESP 16; TEMP 36.5; O2SAT 99; BMI 25.7
--- OUTSIDE RECORDS SUMMARY | 2018-05-13 11:54 | XMS RPT_ITS ---
:1955 Author Organization OHIP Support Name Relationship Address Phone D Unavailable Unavailable Unavailable GREG US Unavailable [address] + [place] [address] D Unavailable Unavailable Unavailable GREG US Unavailable [address] + [place] [address] D Unavailable Unavailable Unavailable GREG US Unavailable [address] + [place] [address] D Unavailable Unavailable Unavailable GREG US Unavailable [address] + [place] [address] D Unavailable Unavailable Unavailable GREG US Unavailable [address] + [place] [address] D Unavailable Unavailable Unavailable GREG US Unavailable [address] + [place] [address] D Unavailable Unavailable Unavailable GREG US Unavailable [address] + [place] [address] D Unavailable Unavailable Unavailable GREG US Unavailable [address] + [place] [address] D Unavailable Unavailable Unavailable GREG US Unavailable [address] + [place] [address] D Unavailable Unavailable Unavailable GREG US Unavailable [address] + [place] [address] D Unavailable Unavailable Unavailable GREG US Unavailable [address] + [place] [address] D Unavailable Unavailable Unavailable GREG US Unavailable [address] + [place] [address] D Unavailable Unavailable Unavailable GREG US Unavailable [address] + [place] [address] D Unavailable Unavailable Unavailable GREG US Unavailable [address] + [place] [address] D Unavailable Unavailable Unavailable GREG US Unavailable [address] + [place] [address] D Unavailable Unavailable Unavailable GREG US Unavailable [address] + [place] [address] D Unavailable Unavailable Unavailable GREG US Unavailable [address] + [place] [address] D Unavailable Unavailable Unavailable GREG US Unavailable [address] + [place] [address] Care Team Providers Name Role Phone LIZBETH POOL) Referring Unavailable JUILUS RUBY Referring Unavailable LIZBETH POOL) Attending Unavailable LAITH BELL (SURVEILLANCE SPECIALIST) Attending Unavailable LAITH BELL (SURVEILLANCE SPECIALIST) Referring Unavailable JAYLEEN GURROLA (PT) Attending Unavailable LIZBETH POOL) Referring Unavailable LIZBETH POOL) Attending Unavailable LIZBETH POOL) Referring Unavailable LIZBETH POOL) Referring Unavailable ELOISA MALDONADO (SURVEILLANCE SPECIALIST) Attending Unavailable LIZBETH POOL) Referring Unavailable WUNNING, BRUCE S Referring Unavailable JAYLEEN GURROLA (PT) Attending Unavailable JAYLEEN GURROLA (PT) Attending Unavailable JAYLEEN GURROLA (PT) Attending Unavailable WUNNING, BRUCE S Referring Unavailable WUNNING, BRUCE S Referring Unavailable JAYLEEN GURROLA (PT) Attending Unavailable WUNNING, BRUCE S Referring Unavailable WUNNING, BRUCE S Referring Unavailable WUNNING, BRUCE S Referring Unavailable WUNNING, BRUCE S Referring Unavailable WUNNING, BRUCE S Referring Unavailable WUNNING, BRUCE S Referring Unavailable LIZBETH POOL) Attending Unavailable LIZBETH POOL) Referring Unavailable LIZBETH POOL) Referring Unavailable JAYLEEN GURROLA (PT) Attending Unavailable LIZBETH POOL) Referring Unavailable WUNNING, BRUCE S Referring Unavailable WUNNING, BRUCE S Referring Unavailable JAYLEEN GURROLA (PT) Attending Unavailable WUNNING, BRUCE S Referring Unavailable BURSLEY, CHRISTOPHER Shavon () Referring Unavailable BURSLEY, CHRISTOPHER Shavon () Referring Unavailable BURSLEY, CHRISTOPHER Shavon () Referring Unavailable BURSLEY, CHRISTOPHER Shavon () Referring Unavailable Bursley, Rodney Primary Care Unavailable ELOISA ANDERSON Attending Unavailable ELOISA ANDERSON Referring Unavailable ELOISA ANDERSON Referring Unavailable Bursley, Rodney Primary Care Unavailable ELOISA ANDERSON Attending Unavailable ELOISA ANDERSON Attending Unavailable ELOISA ANDERSON Referring Unavailable Bursley, Rodney Primary Care Unavailable Vellanki, Corinne Consulting Unavailable Bursley, Rodney Primary Care Unavailable ELOISA ANDERSON Attending Unavailable ELOISA ANDERSON Referring Unavailable Nnamdi Choi Attending Unavailable JimboNnamdi Referring Unavailable Bursley, Rodney Primary Care Unavailable Bursley, Rodney Primary Care Unavailable Dante, Isaac Attending Unavailable Dante, Isaac Referring Unavailable Bursley, Rodney Primary Care Unavailable ELOISA ANDERSON Attending Unavailable ELOISA ANDERSON Referring Unavailable ELOISA ANDERSON Attending Unavailable ELOISA ANDERSON Referring Unavailable Bursley, Rodney Primary Care Unavailable ELOISA ANDERSON Attending Unavailable ELOISA ANDERSON Referring Unavailable Bursley, Rodney Primary Care Unavailable Bursley, Rodney Primary Care Unavailable ELOISA ANDERSON Attending Unavailable ELOISA ANDERSON Referring Unavailable Wunning, Bruce Attending Unavailable Wunning, Bruce Referring Unavailable Bursley, Rodney Primary Care Unavailable Jopperi, Mehran Admitting Unavailable Jopperi, Mehran Attending Unavailable Bursley, Rodney Primary Care Unavailable Jopperi, Mehran Consulting Unavailable Jopperi, Mehran Attending Unavailable Bursley, Rodney Primary Care Unavailable Bursley, Rodney Primary Care Unavailable Jopperi, Mehran Admitting Unavailable Jopperi, Mehran Attending Unavailable Bursley, Rodney Primary Care Unavailable Schwiger, Mehran Attending Unavailable Jimbo Nnamdi Attending Unavailable Jimbo, Nnamdi Referring Unavailable Bursley, Rodney Primary Care Unavailable JimboNnamdi Attending Unavailable Jimbo, Nnamdi Referring Unavailable Bursley, Rodney Primary Care Unavailable Wartmann, Rodney Attending Unavailable Wartmann, Rodney Referring Unavailable PROBLEMS PROBLEMS DATE TYPE CONDITION / CODE ATTENDING STATUS SOURCE 12/18/2017 Active Pain in left toe(s) JAYLEEN GURROLA Active [place] / M79.675(ICD-10) (PT) Clinic Main [place] Repository 12/18/2017 Active Pain in left ankle JAYLEEN GURROLA Active [place] and joints of left (PT) Clinic Main foot / [place] M25.572(ICD-10) Repository 04/10/2018 Active Prediabetes / NA Active [place] R73.03(ICD-10) Clinic Main [place] Repository 03/23/2013 Active Nonspecific reaction NA Active [place] to tuberculin skin Clinic Main test without active [place] tuberculosis / Repository R76.11(ICD-10) 04/20/2018 Unknown M06.9 - Rheumatoid ELOISA ANDERSON Active [place] arthritis, Community unspecified / Hospital M06.9(ICD-10) Repository 12/13/2015 Active Rheumatoid arthritis NA Active [place] with rheumatoid Clinic Main factor of multiple [place] sites without organ Repository or systems involvement / M05.79(ICD-10) 01/03/2018 Active Mixed hyperlipidemia NA Active [place] / E78.2(ICD-10) Clinic Main [place] Repository 01/03/2018 Active Other long term acute care registered nurse NA Active [place] (current) drug Clinic Main therapy / [place] Z79.899(ICD-10) Repository 01/03/2018 Active Age-related NA Active [place] osteoporosis without Clinic Main current pathological [place] fracture / Repository M81.0(ICD-10) 04/20/2018 Unknown S92.352A - Displaced Wunning, Active [place] fracture of fifth [facility] metatarsal bone, Hospital left foot, initial Repository encounter for closed fracture / S92.352A(ICD-10) 12/11/2017 Active Unknown / ARABELLA, Active [place] UNK(Unknown) LAITH (SURVEILLANCE SPECIALIST) Clinic Main [place] Repository 04/20/2018 Unknown K59.00 - Joppkrystin, Mehran Active [place] Constipation, Community unspecified / Hospital K59.00(ICD-10) Repository 04/20/2018 Unknown R10.9 - Unspecified DanteIsaac morrow Active [place] abdominal pain / Community R10.9(ICD-10) Hospital Repository 10/14/2017 Unknown S92.355A - Schwliam, Mehran Active [place] Nondisplaced Community fracture of fifth [facility] metatarsal bone, Repository left foot, initial encounter for closed fracture / S92.355A(ICD-10) 08/26/2017 Unknown 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, 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 / Nnamdi Community A15.0(ICD-10) Hospital Repository 07/25/2017 Active Vitamin D NA Active [place] deficiency, Clinic Main unspecified / [place] E55.9(ICD-10) Repository 07/25/2017 Active Pure NA Active [place] hypercholesterolemia Clinic Main , unspecified / [place] E78.00(ICD-10) Repository 04/20/2018 Unknown R69 - Illness, ELOISA ANDERSON Active [place] unspecified / Community R69(ICD-10) Hospital Repository PROCEDURES PROCEDURES No Procedure Records FoundRESULTS RESULTS NM CARDIAC PERF Observed: 04/30/2018 Status: F Source: [place] STRESS/PHARM 3:08 PM [facility]IC [facility] REPOSITORY * * *Final Report* * * DATE OF EXAM: Apr 30 2018 3:08PM WON 0006 - NM CARDIAC PERF STRESS/PHARM / PROCEDURE REASON: CHEST PAIN * * * * Physician Interpretation * * * * PATIENT: Name: DAVID BERG Age: 62 years Gender: F CONCLUSIONS: 1. SPECT Perfusion Study: Normal. 2. There is no scintigraphic evidence for inducible ischemia. 3. No evidence of scarred myocardium. 4. Functional capacity N/A (pharmacological). 5. Left ventricle is normal in size. The left ventricle systolic function is hyperdynamic. 6. This is a low risk scan. Gated Stress FBP LVEF % 84 Prior Study Comparison No prior nuclear cardiology exam available for comparison. Nuclear Med Report:1-Day Tc-Tetrofosmin Gated SPECT Myocardial Perfusion with Regadenoson Stress: Myocardial perfusion imaging was performed at rest 30 minutes following the IV injection of Tc-99m tetrofosmin. The patient received 0.4 mg of regadenoson, via rapid IV push, immediately followed by Tc-99m tetrofosmin IV. Gated post stress tomographic imaging was performed 30 to 60 minutes later. See administered doses below. [facility] Date of service: 04/30/2018 7:39:59 AM Ordering Physician: Requesting Physician: LIZBETH POOL Indication: Chest pain. Interpreting physician: Kaitlin Kemp MD Patient History: History of dyslipidemia. Medications currently taking are statins. Height: 162.56 cm BSA: 1.82 m? Weight: 73.03 kg BMI: 27.6 kg/m? Imaging Protocol Limitation Reason Patient motion, G.I. uptake and Breast attenuation. Exam Type: Rest Stress Radiopharm: Tc-99m Tetrofosmin Tc-99m Tetrofosmin Dosage(mCi): 13.5 34.5 Stress Agent: Regadenoson 0.4mg Supply provided from [facility] Resting Heart Rate: 78 bpm Resting Blood Press: 130/70 mmHg Image Quality The overall study imaging quality was deemed to be fair. The following technical issues were noted: Patient motion, G.I. uptake and Breast attenuation. FINDINGS: Left Ventricle Wall Motion: Stress IR:3D - All scored segments are normal. Rest IR:3D - Gated Stress FBP - Reversibility - Stress IR:3D Stress IR:3D Gated Stress FBP LVEF: 84 % ED Volume: 68 ml ES Volume: 11 ml TID: 0.89 Perfusion Findings Stress IR:3D - Summed Score=0 All scored segments reflect normal perfusion. Rest IR:3D - Summed Score=0 All scored segments reflect normal perfusion. Stress IR:3D Rest IR:3D Summed Score=0 Summed Score=0 LEFT VENTRICLE The left ventricle is normal in size. Left ventricular systolic function is hyperdynamic. Stress Test Findings: There is no scintigraphic evidence for inducible ischemia. There is no evidence of scarring. The stress test was terminated due to the following: End of Protocol. Peak HR 108 bpm. (68 % MPHR) Peak BP 148 mmHg/86 mmHg Patient experienced no symptoms during stress. Stress ECG normal ST segment response. Stress complications: none. Final Creative Developer: AKILAH Transcribe Date/Time: Apr 30 2018 7:39A Dictated by : KAITLIN KEMP MD This examination was interpreted and the report reviewed and electronically signed by: KAITLIN KEMP MD on Apr 30 2018 3:41PM EST [id number] PROGRESS Observed: 04/30/2018 Status: COMPLETED Source: [place] 1:31 PM [facility] REPOSITORY O ID: [id number] Author: Rohan Swift ([facility]) [place] Service: (none) Author Type: Geriatric Nurse Type: Progress Notes Filed: 04/30/2018 1:31 PM Note Text: Holter monitor placed, instructions provided, and verbal feedback demonstrating understanding received. KRYSTLE Rodas PROGRESS Observed: 04/30/2018 Status: COMPLETED Source: [place] 1:04 PM [facility] REPOSITORY HNO ID: [id number] Author: Esperanza Palacios Service: (none) Author Type: (none) Type: Progress Notes Filed: 04/30/2018 2:25 PM Note Text: RADIOLOGY SERVICE PROGRESS NOTE SERVICE DATE: 04/30/2018 SERVICE TIME: 1:04 PM PATIENT IDENTITY VERIFICATION COMPLETED USING TWO (2) METHODS: Patient confirmed name and Date of verbally. PATIENT GENDER DATA: .female : No ALLERGIES: Reviewed and unchanged MEDICATIONS REVIEWED: Yes PATIENT RELEVANT IMPLANT DATA REVIEWED: Not Applicable CREATININE: Creatinine Date Value Ref Range Status 01/03/2018 0.79 0.58 - 0.96 mg/dL Final 12/03/2017 0.86 0.58 - 0.96 mg/dL Final 07/25/2017 0.89 0.58 - 0.96 mg/dL Final eGFR-All Other Races Date Value Ref Range Status 01/03/2018 >60 . Final Comment: eGFR (Estimated GFR) Units of measure: mL/min/1.73 meters squared eGFR is derived from the reexpressed MDRD Study equation using the following parameters: serum creatinine, age, gender and race. The creatinine assay has been calibrated to be traceable to IDMS. An eGFR <60 mL/min/1.73m2 for >3 months is consistent with chronic kidney disease. Refer to KDOQI guidelines for clinical interpretation. In patients with unstable renal function, e.g. those with acute kidney injury, the eGFR may not accurately reflect actual GFR. eGFR- Date Value Ref Range Status 01/03/2018 >60 Final P.O.C.T. RESULTS: N/A April 30, [address] PERFORMED: No IV SITE: Ambulatory: A peripheral IV was started in the Left antecubital site with a Angio cath: 24 gauge. POST EXAM PIV STATUS: Discontinued PROCEDURE TYPE: NM Stress: 13.5mCi [id number] was administered IV for Rest Imaging at 12:03 by [employer]. 34.5 mCi Tc99m- Myoview was administered IV for Stress Imaging at 13:23 by [employer]. A Diagnostic radioactive procedure has taken place, with no further precautions necessary other than routine body substance precautions. More information regarding radiation safety can be found using this link: [email or web address] SIGNATURE: [employer] PATIENT NAME: David Berg DATE: April 30, 2018 TIME: 1:04 PM PAGER/CONTACT #: [email or web address] Observed: 04/30/2018 Status: COMPLETED Source: [place] 1:00 PM [facility] REPOSITORY Office Visit (CAWSTR) DAVID BERG ([id number]) 1955 F Date Time Provider Department 04/30/18 1:00 PM NATASHA FELIX) CAWSTR During your visit today, we recorded the following information about you: KRYSTLE Rodas 04/30/2018 1:31 PM Signed Holter monitor placed, instructions provided, and verbal feedback demonstrating understanding received. KRYSTLE Rodas Referring Provider: LIZBETH POOL) [[id number]] Allergies As of Date: 04/30/2018 Noted Allergy Reaction CODEINE 10/26/2004 2 - Rash 9 - Itching DARVOCET A500 (PROPOXYPHENE N-JESSICA*10/26/2004 2 - Rash 9 - Itching DARVON (PROPOXYPHENE HCL) 10/26/2004 2 - Rash 9 - Itching DAYPRO (OXAPROZIN) 01/02/2005 2 - Rash EFFEXOR (VENLAFAXINE HCL) 01/02/2005 5 - Intolerance Comments: decreased libido FLEXERIL (CYCLOBENZAPRINE HCL) 01/02/2005 8 - GI Upset 11 - Vomiting GABAPENTIN 12/15/2015 1 - Mental Status Change Comments: hangover NORCO (HYDROCODONE-ACETAMINOPHEN) 01/02/2005 8 - GI Upset 9 - Itching Comments: nausea, itching OXYBUTYNIN 11/20/2011 14 - Other: See Comments Comments: Urinary retention PINE TREES (TREES) 12/07/2008 Comments: rash TALWIN (PENTAZOCINE LACTATE) 01/02/2005 9 - Itching Comments: GI upset ULTRAM (TRAMADOL HCL) 01/02/2005 8 - GI Upset VIOXX (ROFECOXIB) 01/02/2005 2 - Rash Date Reviewed: 04/10/2018 Reviewed by: Kd Og Ma - Fully Assessed Primary Visit Diagnosis:Chest pain, unspecified type [R07.9] Order(s):NM CARDIAC PERF STRESS/PHARM [[id number]] Order #: [id number] Prescriptions as of 04/30/2018 Sig: CARISOPRODOL 350 MG TABLET Take 1 tablet by mouth three * OMEGA-3 FATTY ACIDS 1,000 MG * Take 2 capsules by mouth once* POTASSIUM CHLORIDE ER 8 MEQ C* take 1 capsule by mouth once * TRETINOIN 0.025 % TOPICAL GEL Apply 1 application to affect* ATORVASTATIN 20 MG TABLET Take 1 tablet by mouth daily * ERGOCALCIFEROL (VITAMIN D2) 5* Take 1 capsule by mouth once * ABATACEPT (WITH MALTOSE) 250 * Inject 750 mg intravenously q* CALCIUM CARBONATE 600 MG (1,5* Take 1 tablet by mouth once d* ROPINIROLE 1 MG TABLET Take 1 tablet by mouth daily * NICOTINE 10 MG INHALATION CAR* Inhale 2 Puffs as instructed * PROMETHAZINE 25 MG TABLET Take 1 tablet by mouth every * ONDANSETRON 4 MG DISINTEGRATI* Take 1 tablet by mouth every * ALPRAZOLAM 1 MG TABLET Take 1 mg by mouth twice jaleel* QUETIAPINE 100 MG TABLET Take 2 tablets by mouth daily* RIZATRIPTAN 10 MG TABLET Take 1 tablet by mouth at ons* ALENDRONATE 70 MG TABLET take 1 tablet by mouth ONCE E* Problem List As Of Date 04/30/2018 Noted Resolved Cleft lip, 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 Orbital mass [H05.89] INVALID FOR*06/01/2016 RLS (restless legs syndrome) [G25.81] INVALID FOR* Nasal septal deviation [J34.2] INVALID FOR*06/01/2016 Pruritus of forearm [L29.9] INVALID FOR*06/01/2016 Pruritus - disorder INVALID FOR*06/01/2016 Eczematous dermatitis [L30.9] INVALID FOR*06/01/2016 Lichenoid dermatitis [L28.0] INVALID FOR*06/01/2016 Excoriation [T14.8XXA] INVALID FOR*06/01/2016 Capsulitis [M77.9] INVALID FOR*06/01/2016 Closed fracture of lateral malleolus [S82.63XA] INVALID FOR*06/01/2016 Contusion of toe [S90.129A] INVALID FOR*06/01/2016 Migraine headache [G43.909] INVALID FOR* Falls [W19.XXXA] INVALID FOR* Arthritis of left knee [M17.12] INVALID FOR*06/01/2016 Leg ulcer, left (HCC) [L97.929] INVALID FOR*06/01/2016 Xerosis cutis [L85.3] INVALID FOR*06/01/2016 Palpitations [R00.2] INVALID FOR* Cervical strain [S16.1XXA] INVALID FOR*06/01/2016 Cervical disc disease [M50.90] INVALID FOR*06/01/2016 Bulimia [F50.2] INVALID FOR* Eating disorder [F50.9] INVALID FOR*06/01/2016 Positive PPD [R76.11] INVALID FOR* Personality disorder with predominantly sociopa*INVALID FOR* Insomnia [G47.00] INVALID FOR* Cataract of both eyes [H26.9] INVALID FOR*06/01/2016 More... Cervicalgia [M54.2] INVALID FOR* Lumbago [M54.5] INVALID FOR*06/01/2016 Encounter for long-term (current) use of medica*INVALID FOR*06/01/2016 Chronic pain syndrome [G89.4] INVALID FOR*06/01/2016 Left-sided low back pain with left-sided sciati*INVALID FOR* HNP (herniated nucleus pulposus), lumbar [M51.2*INVALID FOR* Rheumatoid arthritis involving multiple sites w*INVALID FOR* Dry eye syndrome [H04.129] INVALID FOR* Hyperlipidemia [E78.5] Acute left ankle pain [M25.572] INVALID FOR* Pain in toe of left foot [M79.675] INVALID FOR* Prediabetes [R73.03] Encounter Status:Closed by Rohan PATEL on 04/30/18 CNNURSE Observed: 04/30/2018 Status: COMPLETED Source: [place] 1:00 PM [facility] REPOSITORY Nurse Visit (CAWSTR) OTISDAVID ([id number]) 1955 F Date Time Provider Department 04/30/18 1:00 PM NURSE CARD ADMIN [facility] WSTR CAWSTR During your visit today, we recorded the following information about you: Lucho Gloria RN 04/30/2018 1:30 PM Signed lexiscan 0.4mg/5ml given over 10 second IV push. Lot number [id number], exp date 05-16-2021. Patient tolerated injection well. Lucho Gloria RN Referring Provider: LIZBETH POOL) [[id number]] Allergies As of Date: 04/30/2018 Noted Allergy Reaction CODEINE 10/26/2004 2 - Rash 9 - Itching DARVOCET A500 (PROPOXYPHENE N-JESSICA*10/26/2004 2 - Rash 9 - Itching DARVON (PROPOXYPHENE HCL) 10/26/2004 2 - Rash 9 - Itching DAYPRO (OXAPROZIN) 01/02/2005 2 - Rash EFFEXOR (VENLAFAXINE HCL) 01/02/2005 5 - Intolerance Comments: decreased libido FLEXERIL (CYCLOBENZAPRINE HCL) 01/02/2005 8 - GI Upset 11 - Vomiting GABAPENTIN 12/15/2015 1 - Mental Status Change Comments: hangover NORCO (HYDROCODONE-ACETAMINOPHEN) 01/02/2005 8 - GI Upset 9 - Itching Comments: nausea, itching OXYBUTYNIN 11/20/2011 14 - Other: See Comments Comments: Urinary retention PINE TREES (TREES) 12/07/2008 Comments: rash LEESAWIN (PENTAZOCINE LACTATE) 01/02/2005 9 - Itching Comments: GI upset ULTRAM (TRAMADOL HCL) 01/02/2005 8 - GI Upset VIOXX (ROFECOXIB) 01/02/2005 2 - Rash Date Reviewed: 04/10/2018 Reviewed by: Kd Og Ma - Fully Assessed Primary Visit Diagnosis:Palpitations [R00.2] Prescriptions as of 04/30/2018 Sig: CARISOPRODOL 350 MG TABLET Take 1 tablet by mouth three * OMEGA-3 FATTY ACIDS 1,000 MG * Take 2 capsules by mouth once* POTASSIUM CHLORIDE ER 8 MEQ C* take 1 capsule by mouth once * TRETINOIN 0.025 % TOPICAL GEL Apply 1 application to affect* ATORVASTATIN 20 MG TABLET Take 1 tablet by mouth daily * ERGOCALCIFEROL (VITAMIN D2) 5* Take 1 capsule by mouth once * ABATACEPT (WITH MALTOSE) 250 * Inject 750 mg intravenously q* CALCIUM CARBONATE 600 MG (1,5* Take 1 tablet by mouth once d* ROPINIROLE 1 MG TABLET Take 1 tablet by mouth daily * NICOTINE 10 MG INHALATION CAR* Inhale 2 Puffs as instructed * PROMETHAZINE 25 MG TABLET Take 1 tablet by mouth every * ONDANSETRON 4 MG DISINTEGRATI* Take 1 tablet by mouth every * ALPRAZOLAM 1 MG TABLET Take 1 mg by mouth twice jaleel* QUETIAPINE 100 MG TABLET Take 2 tablets by mouth daily* RIZATRIPTAN 10 MG TABLET Take 1 tablet by mouth at ons* ALENDRONATE 70 MG TABLET take 1 tablet by mouth ONCE E* Problem List As Of Date 04/30/2018 Noted Resolved Cleft lip, 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 Orbital mass [H05.89] INVALID FOR*06/01/2016 RLS (restless legs syndrome) [G25.81] INVALID FOR* Nasal septal deviation [J34.2] INVALID FOR*06/01/2016 Pruritus of forearm [L29.9] INVALID FOR*06/01/2016 Pruritus - disorder INVALID FOR*06/01/2016 Eczematous dermatitis [L30.9] INVALID FOR*06/01/2016 Lichenoid dermatitis [L28.0] INVALID FOR*06/01/2016 Excoriation [T14.8XXA] INVALID FOR*06/01/2016 Capsulitis [M77.9] INVALID FOR*06/01/2016 Closed fracture of lateral malleolus [S82.63XA] INVALID FOR*06/01/2016 Contusion of toe [S90.129A] INVALID FOR*06/01/2016 Migraine headache [G43.909] INVALID FOR* Falls [W19.XXXA] INVALID FOR* Arthritis of left knee [M17.12] INVALID FOR*06/01/2016 Leg ulcer, left (HCC) [L97.929] INVALID FOR*06/01/2016 Xerosis cutis [L85.3] INVALID FOR*06/01/2016 Palpitations [R00.2] INVALID FOR* Cervical strain [S16.1XXA] INVALID FOR*06/01/2016 Cervical disc disease [M50.90] INVALID FOR*06/01/2016 Bulimia [F50.2] INVALID FOR* Eating disorder [F50.9] INVALID FOR*06/01/2016 Positive PPD [R76.11] INVALID FOR* Personality disorder with predominantly sociopa*INVALID FOR* Insomnia [G47.00] INVALID FOR* Cataract of both eyes [H26.9] INVALID FOR*06/01/2016 More... Cervicalgia [M54.2] INVALID FOR* Lumbago [M54.5] INVALID FOR*06/01/2016 Encounter for long-term (current) use of medica*INVALID FOR*06/01/2016 Chronic pain syndrome [G89.4] INVALID FOR*06/01/2016 Left-sided low back pain with left-sided sciati*INVALID FOR* HNP (herniated nucleus pulposus), lumbar [M51.2*INVALID FOR* Rheumatoid arthritis involving multiple sites w*INVALID FOR* Dry eye syndrome [H04.129] INVALID FOR* Hyperlipidemia [E78.5] Acute left ankle pain [M25.572] INVALID FOR* Pain in toe of left foot [M79.675] INVALID FOR* Prediabetes [R73.03] Visit Notes: >> Lucho Gloria RN Wed Apr 30, 2018 1:27 PM Status: Signed lexiscan 0.4mg/5ml given over 10 second IV push. Lot number [id number], exp date 05-16-2021. Patient tolerated injection well. Lucho Gloria RN Encounter Status:Closed by LUCHO GLORIA RN on 05/01/18 PROGRESS Observed: 04/28/2018 Status: COMPLETED Source: [place] 3:01 PM [facility] REPOSITORY HNO ID: [id number] Author: Jayleen (Pt) [employer] Service: (none) Author Type: Physical Therapist Type: Progress Notes Filed: 04/28/2018 5:02 PM Note Text: Episode Visit Count: 24 Therapist That Will Oversee The Plan Of Care: Jayleen Gurrola PT Start of Care Date: 12/18/17 Onset Date: 10/12/17 Plan of Care Certification Date: 04/21/18 Patient Identified by Name and Date of : Yes REHABILITATION AND SPORTS THERAPY PHYSICAL THERAPY TREATMENT NOTE ASSESSMENT: David Berg demonstrated improvement by one point in pain after therapy. She found her foot felt cesspool cleaner after manual therapy. Tried adding 0.5lb weight to patient's L foot but she was unable to tolerate to trace the alphabet, so removed and had her perform without. Patient seems to have increased clicking/moving of peroneal tendon with the combined motion of plantarflexion and eversion. The patient will continue to benefit from continued skilled physical therapy for ther ex and manual PLAN FOR NEXT VISIT: Continue with strengthening of L ankle and foot (maybe try foam like marching or balance) and IASTM SUBJECTIVE: Patient reports clicking with ankle. The more she walks the more it clicks and the ankle gets sore and has to walk on outside of foot. The clicking occurs with normal heel strike and toe off walking. Patient gets SOB when on the bike and her R hip was hurting. Pain in toes seems better. Pain Score: 4/10 Pain Location: Foot - Left Description: Aching (Clicking) Frequency: Continuous Post Treatment Pain Score: 3/10 (feels cesspool cleaner) Pain Location: Foot - Left OBJECTIVE MEASURES WITH LEVEL OF FUNCTION: Palpation=Peroneal Tendons on lateral ankle painful to palpation. Palpation=base of 3rd toe tender to palpation. TREATMENT: Therapeutic Exercise: 4: TOGA toe exercise with toe abduction, toe adduction and great toe extension with 2-4 press into floor and 2nd-4th toe extension and 1st and fifth on floor x 10 each (difficult to spread toes apart) 5: Left ankle ABC'sx 1. Tried A-D with 0.5lb but caused shooting pain on 5th Met head, so removed for her to complete E-Z. 6: Seated BAPS left ball 4 A/P, lateral, cw and ccw 2x 10 each. (Patient reports clicking in ankle with this) (Clicking w/ CCW (PF and Eversion mov't); no clicking with CW) 7: Strap assist left gastroc stretch 3x30 seconds. 8: Left toe curls x 1 minute 10: Green Rep band resistive df,pf,inv and evr x2x15. Green band vended for home use to upgrade HEP. (clicking mentioned during exercise) Skilled Intervention: Patient was educated in proper exercise technique and purpose for exercises. Skilled judgment was provided in selection of appropriate interventions. Manual Therapy: 1: Passive left toe flexion 1-5 with distraction , 3-5 second hold x 2 each toe. 2: IASTM with patient prone lying at end of treatment left gastroc, achilles arch and base of toes x 10 minutes. 3: Prone L ankle anterior mobs to help with PF, Grade II, 2x20 4: Prone L ankle Posterior mobs to help with DF, Grade II, 2x20 Skilled Intervention: Manual skills to improve joint mobility, ROM, and decrease pain. Utilized anatomy knowledge of the therapist, and assessment of patient's response to intervention. Billing: [facility]: Therapeutic Exercise ([id number]): 1:1 time: 25 minutes (2 units: 23-37 mins) Manual Therapy ([id number]): 1:1 time: 15 minutes (1 unit: 8-22 mins) Total time: 40 minutes Jayleen Gurrola PT CNTHERAPY Observed: 04/28/2018 Status: COMPLETED Source: [place] 2:45 PM [facility] REPOSITORY OT/PT/Speech Visit (PTWS) DAVID BERG ([id number]) 1955 F Date Time Provider Department 04/28/18 2:45 PM JAYLEEN GURROLA (PT) PTWS Date Time Provider Department Center 04/28/2018 2:45 PM [id number], DIANA (PT)PTWS [facility] Reason for Visit: Physical Therapy [503] Primary Visit Diagnosis:Acute left ankle pain [M25.572] Other Visit Diagnosis:Pain in toe of left foot [M79.675] Allergies As of Date: 04/28/2018 Noted Allergy Reaction CODEINE 10/26/2004 2 - Rash 9 - Itching DARVOCET A500 (PROPOXYPHENE N-JESSICA*10/26/2004 2 - Rash 9 - Itching DARVON (PROPOXYPHENE HCL) 10/26/2004 2 - Rash 9 - Itching DAYPRO (OXAPROZIN) 01/02/2005 2 - Rash EFFEXOR (VENLAFAXINE HCL) 01/02/2005 5 - Intolerance Comments: decreased libido FLEXERIL (CYCLOBENZAPRINE HCL) 01/02/2005 8 - GI Upset 11 - Vomiting GABAPENTIN 12/15/2015 1 - Mental Status Change Comments: hangover NORCO (HYDROCODONE-ACETAMINOPHEN) 01/02/2005 8 - GI Upset 9 - Itching Comments: nausea, itching OXYBUTYNIN 11/20/2011 14 - Other: See Comments Comments: Urinary retention PINE TREES (TREES) 12/07/2008 Comments: rash TALWIN (PENTAZOCINE LACTATE) 01/02/2005 9 - Itching Comments: GI upset ULTRAM (TRAMADOL HCL) 01/02/2005 8 - GI Upset VIOXX (ROFECOXIB) 01/02/2005 2 - Rash Date Reviewed: 04/10/2018 Reviewed by: Kd Og Ma - Fully Assessed Prescriptions as of 04/28/2018 Sig: CARISOPRODOL 350 MG TABLET Take 1 tablet by mouth three * OMEGA-3 FATTY ACIDS 1,000 MG * Take 2 capsules by mouth once* POTASSIUM CHLORIDE ER 8 MEQ C* take 1 capsule by mouth once * TRETINOIN 0.025 % TOPICAL GEL Apply 1 application to affect* ATORVASTATIN 20 MG TABLET Take 1 tablet by mouth daily * ERGOCALCIFEROL (VITAMIN D2) 5* Take 1 capsule by mouth once * ABATACEPT (WITH MALTOSE) 250 * Inject 750 mg intravenously q* CALCIUM CARBONATE 600 MG (1,5* Take 1 tablet by mouth once d* ROPINIROLE 1 MG TABLET Take 1 tablet by mouth daily * NICOTINE 10 MG INHALATION CAR* Inhale 2 Puffs as instructed * PROMETHAZINE 25 MG TABLET Take 1 tablet by mouth every * ONDANSETRON 4 MG DISINTEGRATI* Take 1 tablet by mouth every * ALPRAZOLAM 1 MG TABLET Take 1 mg by mouth twice jaleel* QUETIAPINE 100 MG TABLET Take 2 tablets by mouth daily* RIZATRIPTAN 10 MG TABLET Take 1 tablet by mouth at ons* ALENDRONATE 70 MG TABLET take 1 tablet by mouth ONCE E* Progress Notes: Jayleen Gurrola, PT 04/28/2018 5:02 PM Signed Episode Visit Count: 24 Therapist That Will Oversee The Plan Of Care: Jayleen Gurrola PT Start of Care Date: 12/18/17 Onset Date: 10/12/17 Plan of Care Certification Date: 04/21/18 Patient Identified by Name and Date of : Yes REHABILITATION AND SPORTS THERAPY PHYSICAL THERAPY TREATMENT NOTE ASSESSMENT: David Berg demonstrated improvement by one point in pain after therapy. She found her foot felt cesspool cleaner after manual therapy. Tried adding 0.5lb weight to patient's L foot but she was unable to tolerate to trace the alphabet, so removed and had her perform without. Patient seems to have increased clicking/moving of peroneal tendon with the combined motion of plantarflexion and eversion. The patient will continue to benefit from continued skilled physical therapy for ther ex and manual PLAN FOR NEXT VISIT: Continue with strengthening of L ankle and foot (maybe try foam like marching or balance) and IASTM SUBJECTIVE: Patient reports clicking with ankle. The more she walks the more it clicks and the ankle gets sore and has to walk on outside of foot. The clicking occurs with normal heel strike and toe off walking. Patient gets SOB when on the bike and her R hip was hurting. Pain in toes seems better. Pain Score: 4/10 Pain Location: Foot - Left Description: Aching (Clicking) Frequency: Continuous Post Treatment Pain Score: 3/10 (feels cesspool cleaner) Pain Location: Foot - Left OBJECTIVE MEASURES WITH LEVEL OF FUNCTION: Palpation=Peroneal Tendons on lateral ankle painful to palpation. Palpation=base of 3rd toe tender to palpation. TREATMENT: Therapeutic Exercise: 4: TOGA toe exercise with toe abduction, toe adduction and great toe extension with 2-4 press into floor and 2nd-4th toe extension and 1st and fifth on floor x 10 each (difficult to spread toes apart) 5: Left ankle ABC'sx 1. Tried A-D with 0.5lb but caused shooting pain on 5th Met head, so removed for her to complete E-Z. 6: Seated BAPS left ball 4 A/P, lateral, cw and ccw 2x 10 each. (Patient reports clicking in ankle with this) (Clicking w/ CCW (PF and Eversion mov't); no clicking with CW) 7: Strap assist left gastroc stretch 3x30 seconds. 8: Left toe curls x 1 minute 10: Green Rep band resistive df,pf,inv and evr x2x15. Green band vended for home use to upgrade HEP. (clicking mentioned during exercise) Skilled Intervention: Patient was educated in proper exercise technique and purpose for exercises. Skilled judgment was provided in selection of appropriate interventions. Manual Therapy: 1: Passive left toe flexion 1-5 with distraction , 3-5 second hold x 2 each toe. 2: IASTM with patient prone lying at end of treatment left gastroc, achilles arch and base of toes x 10 minutes. 3: Prone L ankle anterior mobs to help with PF, Grade II, 2x20 4: Prone L ankle Posterior mobs to help with DF, Grade II, 2x20 Skilled Intervention: Manual skills to improve joint mobility, ROM, and decrease pain. Utilized anatomy knowledge of the therapist, and assessment of patient's response to intervention. Billing: [facility]: Therapeutic Exercise ([id number]): 1:1 time: 25 minutes (2 units: 23-37 mins) Manual Therapy ([id number]): 1:1 time: 15 minutes (1 unit: 8-22 mins) Total time: 40 minutes Jayleen Gurrola PT US FOOT LT Observed: 04/24/2018 Status: F Source: [place] 2:05 PM [facility] REPOSITORY * * *Final Report* * * DATE OF EXAM: Apr 24 2018 2:05PM RIOS 1141 - US FOOT LT / PROCEDURE REASON: M79.672 Pain in foot M77.42 Metatarsalgi, LT foot S82.65XD * * * * Physician Interpretation * * * * MSK_US SOFT TISSUE ULTRASOUND OF THE LEFT PLANTAR FOOT. HISTORY: Patient with left sided metatarsalgia, inability to flex her toes without pain. Pain over the fifth MTP joint with walking. History of injury to the anterior talofibular ligament and calcaneofibular ligament as well as peroneal retinaculum. TECHNIQUE: Grayscale and power Doppler ultrasound imaging was performed in the area of concern and images were saved to the permanent image archive. RESULT: Corresponding to the area of pain, there is mild capsular thickening and synovial proliferation with underlying marked bone irregularity versus erosions of the metatarsal head of the fifth MTP joint. No hyperemia. No joint effusion. Limited evaluation of the first through fifth flexor tendons did not reveal any abnormalities or sonographic signs of tenosynovitis. There is 6 mm x 2 mm x 6 mm plantar fibroma present located 3.4 cm proximally to the first MTP joint. There is mild plantar fascial thickening and hypoechogenicity proximally without focal pain. IMPRESSION: SYNOVIAL PROLIFERATION AND POSSIBLE UNDERLYING EROSIONS OF THE FIFTH MTP JOINT WITHOUT HYPEREMIA OR JOINT EFFUSION CORRESPONDING TO THE AREA OF PAIN. CORRELATION WITH PLAIN FILM IS RECOMMENDED. THE MOST RECENT PLAIN FILM IS 2014. SMALL PLANTAR FIBROMA ALONG THE MEDIAL ARCH. Creative Developer: ALEXEI Transcribe Date/Time: Apr 24 2018 2:58P Dictated by : GABY HERNÁNDEZ MD This examination was interpreted and the report reviewed and electronically signed by: GABY HERNÁNDEZ MD on Apr 24 2018 3:22PM EST [id number] Observed: 04/23/2018 Status: COMPLETED Source: [place] 3:06 PM [facility] REPOSITORY [facility] ID: [id number] Author: Jayleen (Kishan) Galile[employer] Service: (none) Author Type: Physical Therapist Type: Progress Notes Filed: 04/24/2018 11:41 AM Note Text: Episode Visit Count: 23 Therapist That Will Oversee The Plan Of Care: Jayleen Gurrola PT Start of Care Date: 12/18/17 Onset Date: 10/12/17 Plan of Care Certification Date: 04/21/18 Patient Identified by Name and Date of : Yes REHABILITATION AND SPORTS THERAPY PHYSICAL THERAPY TREATMENT NOTE ASSESSMENT: David Berg demonstrated improvements in gait on level surface. She has difficulty with clicking feel anterior and posterior left malleoli with active movement. Sight reduction in pain following treatment today. Improved strength noted with exercises that were done in therapy today. The patient will continue to benefit from continued skilled physical therapy for progression of strength and proprioception. PLAN FOR NEXT VISIT: Continue with strengthening of ankle and foot and IASTM SUBJECTIVE: Patient reports the left ankle is clicking with walking. She reports being uncomfortable as it clicks. Pain Score: 5/10 Pain Location: Foot - Left Description: Aching Frequency: Continuous Post Treatment Pain Score: 4/10 Pain Location: Foot - Left Post Treatment Pain Description: Aching OBJECTIVE MEASURES WITH LEVEL OF FUNCTION: Ambulation on level with B boots on with near normal gait today. TREATMENT: Therapeutic Exercise: 3: Passive left toe flexion 1-5 , 3-5 second hold x 2 each toe. 4: TOGA toe exercise with toe abduction, toe adduction and great toe extension with 2-4 press into floor and 2nd-4th toe extension and 1st and fifth on floor x 10 each 5: Left ankle ABC'sx 1. 6: Seated BAPS left ball 4 A/P, lateral, cw and ccw 2x 10 each. (Patient reports clicking in ankle with this) 7: Strap assist left gastroc stretch 3x30 seconds. 8: Left toe curls x 1 minute 9: Recumbent bike seat 6, legs 5 x 2 minutes with c/o right hip/groin discomfort with this. 10: *Green Rep band resistive df,pf,inv and evr x2x15. Green band vended for home use to upgrade HEP. 11: Ambulation on level with B boots on with near normal gait today. Skilled Intervention: Patient was educated in proper exercise technique and purpose for exercises. Reviewed and educated patient on additions/changes for home exercise program as above (*) Vended green band for HEP. Skilled judgment was provided in selection of appropriate interventions. Correct performance of therapeutic exercises was facilitated with verbal cuing. Manual Therapy: 2: IASTM with patient prone lying at end of treatment left gastroc, achilles arch and base of toes x 10 minutes. 3: Prone L ankle anterior mobs to help with PF, Grade II, 2x20 4: Prone L ankle Posterior mobs to help with DF, Grade II, 2x20 Skilled Intervention: Manual skills to improve joint mobility, ROM, and decrease pain. Utilized anatomy knowledge of the therapist, and assessment of patient's response to intervention. Billing: [facility]: Therapeutic Exercise ([id number]): 1:1 time: 32 minutes (2 units: 23-37 mins) Manual Therapy ([id number]): 1:1 time: 13 minutes (1 unit: 8-22 mins) Total time: 45 minutes GREGORY Felix PT CNTHERAPY Observed: 04/23/2018 Status: COMPLETED Source: [place] 2:15 PM [facility] [place] REPOSITORY OT/PT/Speech Visit (PTWS) DAVID BERG ([id number]) 1955 F Date Time Provider Department 04/23/18 2:15 PM CAT VILLALOBOS (ETHANOL OPERATOR) PTWS Date Time Provider Department Center 04/23/2018 2:15 PM [id number], NANCY (ETHANOL OPERATOR) PTWS [facility] Reason for Visit: Physical Therapy [503] Primary Visit Diagnosis:Acute left ankle pain [M25.572] Other Visit Diagnosis:Pain in toe of left foot [M79.675] Allergies As of Date: 04/23/2018 Noted Allergy Reaction CODEINE 10/26/2004 2 - Rash 9 - Itching DARVOCET A500 (PROPOXYPHENE N-JESSICA*10/26/2004 2 - Rash 9 - Itching DARVON (PROPOXYPHENE HCL) 10/26/2004 2 - Rash 9 - Itching DAYPRO (OXAPROZIN) 01/02/2005 2 - Rash EFFEXOR (VENLAFAXINE HCL) 01/02/2005 5 - Intolerance Comments: decreased libido FLEXERIL (CYCLOBENZAPRINE HCL) 01/02/2005 8 - GI Upset 11 - Vomiting GABAPENTIN 12/15/2015 1 - Mental Status Change Comments: hangover NORCO (HYDROCODONE-ACETAMINOPHEN) 01/02/2005 8 - GI Upset 9 - Itching Comments: nausea, itching OXYBUTYNIN 11/20/2011 14 - Other: See Comments Comments: Urinary retention PINE TREES (TREES) 12/07/2008 Comments: rash TALWIN (PENTAZOCINE LACTATE) 01/02/2005 9 - Itching Comments: GI upset ULTRAM (TRAMADOL HCL) 01/02/2005 8 - GI Upset VIOXX (ROFECOXIB) 01/02/2005 2 - Rash Date Reviewed: 04/10/2018 Reviewed by: Kd Og Ma - Fully Assessed Prescriptions as of 04/23/2018 Sig: CARISOPRODOL 350 MG TABLET Take 1 tablet by mouth three * OMEGA-3 FATTY ACIDS 1,000 MG * Take 2 capsules by mouth once* POTASSIUM CHLORIDE ER 8 MEQ C* take 1 capsule by mouth once * TRETINOIN 0.025 % TOPICAL GEL Apply 1 application to affect* ATORVASTATIN 20 MG TABLET Take 1 tablet by mouth daily * ERGOCALCIFEROL (VITAMIN D2) 5* Take 1 capsule by mouth once * ABATACEPT (WITH MALTOSE) 250 * Inject 750 mg intravenously q* CALCIUM CARBONATE 600 MG (1,5* Take 1 tablet by mouth once d* ROPINIROLE 1 MG TABLET Take 1 tablet by mouth daily * NICOTINE 10 MG INHALATION CAR* Inhale 2 Puffs as instructed * PROMETHAZINE 25 MG TABLET Take 1 tablet by mouth every * ONDANSETRON 4 MG DISINTEGRATI* Take 1 tablet by mouth every * ALPRAZOLAM 1 MG TABLET Take 1 mg by mouth twice jaleel* QUETIAPINE 100 MG TABLET Take 2 tablets by mouth daily* RIZATRIPTAN 10 MG TABLET Take 1 tablet by mouth at ons* ALENDRONATE 70 MG TABLET take 1 tablet by mouth ONCE E* Progress Notes: Jayleen Gurrola PT 04/24/2018 11:41 AM Signed Episode Visit Count: 23 Therapist That Will Oversee The Plan Of Care: Jayleen Gurrola PT Start of Care Date: 12/18/17 Onset Date: 10/12/17 Plan of Care Certification Date: 04/21/18 Patient Identified by Name and Date of : Yes REHABILITATION AND SPORTS THERAPY PHYSICAL THERAPY TREATMENT NOTE ASSESSMENT: David Berg demonstrated improvements in gait on level surface. She has difficulty with clicking feel anterior and posterior left malleoli with active movement. Sight reduction in pain following treatment today. Improved strength noted with exercises that were done in therapy today. The patient will continue to benefit from continued skilled physical therapy for progression of strength and proprioception. PLAN FOR NEXT VISIT: Continue with strengthening of ankle and foot and IASTM SUBJECTIVE: Patient reports the left ankle is clicking with walking. She reports being uncomfortable as it clicks. Pain Score: 5/10 Pain Location: Foot - Left Description: Aching Frequency: Continuous Post Treatment Pain Score: 4/10 Pain Location: Foot - Left Post Treatment Pain Description: Aching OBJECTIVE MEASURES WITH LEVEL OF FUNCTION: Ambulation on level with B boots on with near normal gait today. TREATMENT: Therapeutic Exercise: 3: Passive left toe flexion 1-5 , 3-5 second hold x 2 each toe. 4: TOGA toe exercise with toe abduction, toe adduction and great toe extension with 2-4 press into floor and 2nd-4th toe extension and 1st and fifth on floor x 10 each 5: Left ankle ABC'sx 1. 6: Seated BAPS left ball 4 A/P, lateral, cw and ccw 2x 10 each. (Patient reports clicking in ankle with this) 7: Strap assist left gastroc stretch 3x30 seconds. 8: Left toe curls x 1 minute 9: Recumbent bike seat 6, legs 5 x 2 minutes with c/o right hip/groin discomfort with this. 10: *Green Rep band resistive df,pf,inv and evr x2x15. Green band vended for home use to upgrade HEP. 11: Ambulation on level with B boots on with near normal gait today. Skilled Intervention: Patient was educated in proper exercise technique and purpose for exercises. Reviewed and educated patient on additions/changes for home exercise program as above (*) Vended green band for HEP. Skilled judgment was provided in selection of appropriate interventions. Correct performance of therapeutic exercises was facilitated with verbal cuing. Manual Therapy: 2: IASTM with patient prone lying at end of treatment left gastroc, achilles arch and base of toes x 10 minutes. 3: Prone L ankle anterior mobs to help with PF, Grade II, 2x20 4: Prone L ankle Posterior mobs to help with DF, Grade II, 2x20 Skilled Intervention: Manual skills to improve joint mobility, ROM, and decrease pain. Utilized anatomy knowledge of the therapist, and assessment of patient's response to intervention. Billing: [facility]: Therapeutic Exercise ([id number]): 1:1 time: 32 minutes (2 units: 23-37 mins) Manual Therapy ([id number]): 1:1 time: 13 minutes (1 unit: 8-22 mins) Total time: 45 minutes Cat Villalobos, PTAlfred Gurrola PT Previous Version Follow-up and Disposition History Recorded CNTHERAPY Observed: 04/21/2018 Status: COMPLETED Source: [place] 2:45 PM [facility] REPOSITORY OT/PT/Speech Visit (PTWS) DAVID BERG ([id number]) 1955 F Date Time Provider Department 04/21/18 2:45 PM JAYLEEN GURROLA (PT) PTWS Date Time Provider Department Center 04/21/2018 2:45 PM [id number], DIANA (PT)PTWS [facility] Reason for Visit: PT Progress Note [1596] Primary Visit Diagnosis:Acute left ankle pain [M25.572] Other Visit Diagnosis:Pain in toe of left foot [M79.675] Allergies As of Date: 04/21/2018 Noted Allergy Reaction CODEINE 10/26/2004 2 - Rash 9 - Itching DARVOCET A500 (PROPOXYPHENE N-JESSICA*10/26/2004 2 - Rash 9 - Itching DARVON (PROPOXYPHENE HCL) 10/26/2004 2 - Rash 9 - Itching DAYPRO (OXAPROZIN) 01/02/2005 2 - Rash EFFEXOR (VENLAFAXINE HCL) 01/02/2005 5 - Intolerance Comments: decreased libido FLEXERIL (CYCLOBENZAPRINE HCL) 01/02/2005 8 - GI Upset 11 - Vomiting GABAPENTIN 12/15/2015 1 - Mental Status Change Comments: hangover NORCO (HYDROCODONE-ACETAMINOPHEN) 01/02/2005 8 - GI Upset 9 - Itching Comments: nausea, itching OXYBUTYNIN 11/20/2011 14 - Other: See Comments Comments: Urinary retention PINE TREES (TREES) 12/07/2008 Comments: rash JONES (PENTAZOCINE LACTATE) 01/02/2005 9 - Itching Comments: GI upset ULTRAM (TRAMADOL HCL) 01/02/2005 8 - GI Upset VIOXX (ROFECOXIB) 01/02/2005 2 - Rash Date Reviewed: 04/10/2018 Reviewed by: Kd Og Ma - Fully Assessed Prescriptions as of 04/21/2018 Sig: CARISOPRODOL 350 MG TABLET Take 1 tablet by mouth three * OMEGA-3 FATTY ACIDS 1,000 MG * Take 2 capsules by mouth once* POTASSIUM CHLORIDE ER 8 MEQ C* take 1 capsule by mouth once * TRETINOIN 0.025 % TOPICAL GEL Apply 1 application to affect* ATORVASTATIN 20 MG TABLET Take 1 tablet by mouth daily * ERGOCALCIFEROL (VITAMIN D2) 5* Take 1 capsule by mouth once * ABATACEPT (WITH MALTOSE) 250 * Inject 750 mg intravenously q* CALCIUM CARBONATE 600 MG (1,5* Take 1 tablet by mouth once d* ROPINIROLE 1 MG TABLET Take 1 tablet by mouth daily * NICOTINE 10 MG INHALATION CAR* Inhale 2 Puffs as instructed * PROMETHAZINE 25 MG TABLET Take 1 tablet by mouth every * ONDANSETRON 4 MG DISINTEGRATI* Take 1 tablet by mouth every * ALPRAZOLAM 1 MG TABLET Take 1 mg by mouth twice jaleel* QUETIAPINE 100 MG TABLET Take 2 tablets by mouth daily* RIZATRIPTAN 10 MG TABLET Take 1 tablet by mouth at ons* ALENDRONATE 70 MG TABLET take 1 tablet by mouth ONCE E* Progress Notes: Jayleen Gurrola PT 04/21/2018 4:14 PM Signed Episode Visit Count: 22 Therapist That Will Oversee The Plan Of Care: Jayleen Gurrola PT Start of Care Date: 12/18/17 Onset Date: 10/12/17 Plan of Care Certification Date: 04/21/18 Patient Identified by Name and Date of : Yes REHABILITATION AND SPORTS THERAPY PHYSICAL THERAPY PROGRESS REPORT PLAN OF CARE UPDATE: Assessment: David Berg exhibits difficulty with wearing a regular shoe for a prolong period of time as she finds the shoe to be too tight. She is unable to descend stairs in a reciprocal fashion. She has improved her L ankle ROM to WFL and is improving her L ankle strength. She also has demonstrated a clinical significant change in her pain by 2 points with sitting and walking. She continues to be limited with walking in the community, stair negotiation, physical activities and squatting. She is progressing slower than expected towards her therapy goals since starting therapy 4 months ago s/p her fall down steps as demonstrated by: pain levels and documented subjective information on progress. She will benefit from continued skilled therapy requiring ther ex and manual in order to in order to improve her L ankle strength, help continue to decrease pain, and improve her ability to perform stairs in a reciprocal fashion. Patient mentioned a clicking that she feels when walking when she was lasts seen on 04/02/18 and continues to report the clicking as a dull symptom. She has an US scheduled for 04/24/18 to get her L foot checked out. The clicking could be due to tendon damage or scar tissue. Patient is hoping the US will provide her with insightful information. Functional gains: Increased independence with HEP Increased ROM Increased strength Decreased intensity of pain Goals updated on 04/21/2018. [place] in home exercise program.--MET for current HEP Patient will decrease pain rating by 2 points to meet minimal clinical important difference for numeric pain rating scale. (Sitting 4/10 and Weightbearing 6/10)--MET Patient will increase active ROM of L ankle to equal R ankle to allow pt to to achieve neutral postural alignment, improved performance of ADLs and to normalize gait mechanics / gait pattern.--MET Patient will increase strength of L ankle to 5/5 to allow for return to prior functional status, normalized gait mechanics and perform ADLs.--Progressing Patient will increase flexibility of calf to WNL to improve ability to maintain proper posture, restore normal mechanics and decrease pain.--Progressing Perform walking without pain.--Progressing Demonstrate improvement on functional score: Patient will increase his/her score on the Lower Extremity Functional Scale by at least 9 points to indicate a Minimal Clinical Important Difference. (Goal: 27/)--MET Normal gait.--Progressing Reciprocal stair negotiation.--MET for ascending stairs but has to do step to for descending stairs Goal Added: 04/21/2018 Patient will decrease pain rating by 2 points to meet minimal clinical important difference for numeric pain rating scale. (Sitting 2/10 and Weightbearing 4/10) Planned Interventions, Frequency, and Duration: 2x/week, 4 weeks Total Number of Visits Planned: 30 Patient to be seen for Therapeutic exercise;Neuromuscular re-education;Manual therapy;Self-mcfp management;Gait Training;Patient/Family/Caregiver Education;General Conditioning;Functional training PLAN FOR NEXT VISIT: Con't with strengthening of L foot mm to pt tolerance as well as manual. As patient gets most relief from IASTM. SUBJECTIVE: Patient finds if she is out and about running around she finds wearing the soft velcro slipper works out better. She states she can only wear her tennis shoe for a short time as her shoe is too tight and causes her pain. Finds the compression stocking to be helpful. When she walks, she reports she gets a click in her L ankle when she walks normally. It is a dull type of sx but not painful. US on , April 24 of her L foot in [place]. Patient states she has to sweep, dust, and mop her floor; she performs each task in 1/4 stretches and rests in btw. Takes her all day to clean her floor. Pain Score: (Sittin/10 Walkin/10) Pain Location: Foot - Left (across top and base of toes AND Lateral side of L ankle) Description: Aching;Throbbing Frequency: Continuous Post Treatment Pain Score: (Sittin/10 Walkin/10) Pain Location: Foot - Left (across top and base of toes AND Lateral side of L ankle) Post Treatment Pain Description: Aching OBJECTIVE MEASURES WITH LEVEL OF FUNCTION: LE AROM L Ankle Dorsiflexion: 20 Degrees L Ankle Plantar Flexion: 42 Degrees L Ankle Inversion: 25 L Ankle Eversion: 25 LE Strength L Ankle Dorsiflexion (L4): 4/5 (pain across top of toes) L Ankle Plantar Flexion: 4/5 (pain across bottom of foot) L Ankle Inversion: 4/5 L Ankle Eversion: 4/5 (pain on lateral ankle) Gait Gait Observation: Ambulation without AD wearing soft velcro slipper on L with good mechaincs at start of session and end of session. Patient with complaints of clicking in her L ankle that produce a dull feeling Stairs: ascending with reciprical method and descending with step to method TREATMENT: Therapeutic Exercise: 2: Patient instructed to continue with her HEP. Skilled Intervention: Patient education as noted. Manual Therapy: 1: Passive left toe flexion 1-5 with distraction , 3-5 second hold x 2 each toe. 2: IASTM with patient prone lying at end of treatment with L leg over bolster to perform left gastroc, achilles arch and base of toes x 10 minutes. 3: Prone L ankle anterior mobs to help with PF, Grade II, 1x10 and 1x5 4: Prone L ankle Posterior mobs to help with DF, Grade II, 1x10 and 1x5 Skilled Intervention: Manual skills to improve joint mobility, ROM, and decrease pain. Utilized anatomy knowledge of the therapist, and assessment of patient's response to intervention. Gait Trainin: Ambulation on carpet with heel strike and toe off on L foot 30 feet x1, 10 feet x2 4: Stairs with B UE support reciprical ascending and step to descending. Tried reciprical descending but was too painful in L ankle. Skilled Intervention: Correct performance of home program was facilitated with verbal cueing. Educated patient to perform reciprocal steps on the way up and step to when descending stairs. Billing:[facility]: Therapeutic Exercise ([id number]): 1:1 time: 5 minutes (no charge) Manual Therapy ([id number]): 1:1 time: 20 minutes (1 unit: 8-22 mins) Gait Training ([id number]): 1:1 time: 15 minutes (1 unit: 8-22 mins) Total time: 40 minutes Jayleen Gurrola PT, DPT, CLT Letter Text PROGRESS Observed: 04/21/2018 Status: COMPLETED Source: [place] 2:01 PM [facility] REPOSITORY HNO ID: [id number] Author: Jayleen Gurrola Service: (none) Author Type: Physical Therapist Type: Progress Notes Filed: 04/21/2018 4:14 PM Note Text: Episode Visit Count: 22 Therapist That Will Oversee The Plan Of Care: Jayleen Gurrola PT Start of Care Date: 12/18/17 Onset Date: 10/12/17 Plan of Care Certification Date: 04/21/18 Patient Identified by Name and Date of : Yes REHABILITATION AND SPORTS THERAPY PHYSICAL THERAPY PROGRESS REPORT PLAN OF CARE UPDATE: Assessment: David Berg exhibits difficulty with wearing a regular shoe for a prolong period of time as she finds the shoe to be too tight. She is unable to descend stairs in a reciprocal fashion. She has improved her L ankle ROM to WFL and is improving her L ankle strength. She also has demonstrated a clinical significant change in her pain by 2 points with sitting and walking. She continues to be limited with walking in the community, stair negotiation, physical activities and squatting. She is progressing slower than expected towards her therapy goals since starting therapy 4 months ago s/p her fall down steps as demonstrated by: pain levels and documented subjective information on progress. She will benefit from continued skilled therapy requiring ther ex and manual in order to in order to improve her L ankle strength, help continue to decrease pain, and improve her ability to perform stairs in a reciprocal fashion. Patient mentioned a clicking that she feels when walking when she was lasts seen on 04/02/18 and continues to report the clicking as a dull symptom. She has an US scheduled for 04/24/18 to get her L foot checked out. The clicking could be due to tendon damage or scar tissue. Patient is hoping the US will provide her with insightful information. Functional gains: Increased independence with HEP Increased ROM Increased strength Decreased intensity of pain Goals updated on 04/21/2018. [place] in home exercise program.--MET for current HEP Patient will decrease pain rating by 2 points to meet minimal clinical important difference for numeric pain rating scale. (Sitting 4/10 and Weightbearing 6/10)--MET Patient will increase active ROM of L ankle to equal R ankle to allow pt to to achieve neutral postural alignment, improved performance of ADLs and to normalize gait mechanics / gait pattern.--MET Patient will increase strength of L ankle to 5/5 to allow for return to prior functional status, normalized gait mechanics and perform ADLs.--Progressing Patient will increase flexibility of calf to WNL to improve ability to maintain proper posture, restore normal mechanics and decrease pain.--Progressing Perform walking without pain.--Progressing Demonstrate improvement on functional score: Patient will increase his/her score on the Lower Extremity Functional Scale by at least 9 points to indicate a Minimal Clinical Important Difference. (Goal: )--MET Normal gait.--Progressing Reciprocal stair negotiation.--MET for ascending stairs but has to do step to for descending stairs Goal Added: 04/21/2018 Patient will decrease pain rating by 2 points to meet minimal clinical important difference for numeric pain rating scale. (Sitting 2/10 and Weightbearing 4/10) Planned Interventions, Frequency, and Duration: 2x/week, 4 weeks Total Number of Visits Planned: 30 Patient to be seen for Therapeutic exercise;Neuromuscular re-education;Manual therapy;Self-mcfp management;Gait Training;Patient/Family/Caregiver Education;General Conditioning;Functional training PLAN FOR NEXT VISIT: Con't with strengthening of L foot mm to pt tolerance as well as manual. As patient gets most relief from IASTM. SUBJECTIVE: Patient finds if she is out and about running around she finds wearing the soft velcro slipper works out better. She states she can only wear her tennis shoe for a short time as her shoe is too tight and causes her pain. Finds the compression stocking to be helpful. When she walks, she reports she gets a click in her L ankle when she walks normally. It is a dull type of sx but not painful. US on , April 24 of her L foot in [place]. Patient states she has to sweep, dust, and mop her floor; she performs each task in 1/4 stretches and rests in btw. Takes her all day to clean her floor. Pain Score: (Sittin/10 Walkin/10) Pain Location: Foot - Left (across top and base of toes AND Lateral side of L ankle) Description: Aching;Throbbing Frequency: Continuous Post Treatment Pain Score: (Sittin/10 Walkin/10) Pain Location: Foot - Left (across top and base of toes AND Lateral side of L ankle) Post Treatment Pain Description: Aching OBJECTIVE MEASURES WITH LEVEL OF FUNCTION: LE AROM L Ankle Dorsiflexion: 20 Degrees L Ankle Plantar Flexion: 42 Degrees L Ankle Inversion: 25 L Ankle Eversion: 25 LE Strength L Ankle Dorsiflexion (L4): 4/5 (pain across top of toes) L Ankle Plantar Flexion: 4/5 (pain across bottom of foot) L Ankle Inversion: 4/5 L Ankle Eversion: 4/5 (pain on lateral ankle) Gait Gait Observation: Ambulation without AD wearing soft velcro slipper on L with good mechaincs at start of session and end of session. Patient with complaints of clicking in her L ankle that produce a dull feeling Stairs: ascending with reciprical method and descending with step to method TREATMENT: Therapeutic Exercise: 2: Patient instructed to continue with her HEP. Skilled Intervention: Patient education as noted. Manual Therapy: 1: Passive left toe flexion 1-5 with distraction , 3-5 second hold x 2 each toe. 2: IASTM with patient prone lying at end of treatment with L leg over bolster to perform left gastroc, achilles arch and base of toes x 10 minutes. 3: Prone L ankle anterior mobs to help with PF, Grade II, 1x10 and 1x5 4: Prone L ankle Posterior mobs to help with DF, Grade II, 1x10 and 1x5 Skilled Intervention: Manual skills to improve joint mobility, ROM, and decrease pain. Utilized anatomy knowledge of the therapist, and assessment of patient's response to intervention. Gait Trainin: Ambulation on carpet with heel strike and toe off on L foot 30 feet x1, 10 feet x2 4: Stairs with B UE support reciprical ascending and step to descending. Tried reciprical descending but was too painful in L ankle. Skilled Intervention: Correct performance of home program was facilitated with verbal cueing. Educated patient to perform reciprocal steps on the way up and step to when descending stairs. Billing:[facility]: Therapeutic Exercise ([id number]): 1:1 time: 5 minutes (no charge) Manual Therapy ([id number]): 1:1 time: 20 minutes (1 unit: 8-22 mins) Gait Training ([id number]): 1:1 time: 15 minutes (1 unit: 8-22 mins) Total time: 40 minutes Jayleen Gurrola, PT, DPT, CLT TB BY QU[employer]ERON Collected: 04/10/2018 Status: F Source: [place] 2:10 PM [facility] REPOSITORY TYPE CODE TESTS RESULT OUT OF REFERENCE UNITS RANGE LAB TBGNIL IU/mL TB NIL 0.06 LAB TBG1AG <0.35 IU/mL TB1 Ag minus 0.23 Nil LAB TBG2AG <0.35 IU/mL TB2 Ag minus 0.15 Nil LAB TBMITN Mitogen minus >10 Nil LAB TBGRES Negative TB Result Negative LAB TBGINT Interpretation No evidence of current or previous infection with Mycobacterium tuberculosis. Performed By: #### INFTBP #### [facility] [employer] [facility] [place] [address] HEMOGLOBIN A1C Collected: 04/10/2018 Status: F Source: [place] 2:09 PM [facility] REPOSITORY TYPE CODE TESTS RESULT OUT OF REFERENCE UNITS RANGE LAB HGBA1C 4.3-5.6 % High Hemoglobin A1c 5.9 Result Comment: [place] [employer] guidelines indicate that patients with HgbA1c in the range 5.7-6.4% are at increased risk for development of diabetes, and intervention by lifestyle modification may be beneficial. HgbA1c greater or equal to 6.5% is considered diagnostic of diabetes. LAB HBA0 mg/dL Est. Average Glucose 123 Result Comment: eAG: (Estimated average glucose) is a calculated value from HgbA1c and is commercial representative of the average blood glucose level in the last 2-3 month period. Performed By: #### HBA1C, VITD #### [facility] [employer] [address] [place] [address] VITAMIN D 25 HYDROXY Collected: 04/10/2018 Status: F Source: [place] 2:09 PM [facility] REPOSITORY TYPE CODE TESTS RESULT OUT OF REFERENCE UNITS RANGE LAB VITD 31.0-80.0 ng/mL Low Vitamin D 25 22.3 Hydroxy Result Comment: Classification of 25 [place] Vitamin D status: Insufficiency/Moderate Deficiency: < or = 30 ng/mL Sufficiency/Optimal Levels: 31 to 80 ng/mL Toxicity: > 100 ng/mL Test performed by chemiluminescent immunoassay. Performed By: #### HBA1C, VITD #### [facility] [employer] [facility] [place] [address] PROGRESS Observed: 04/10/2018 Status: COMPLETED Source: [place] 1:24 PM [facility] REPOSITORY O ID: [id number] Author: Lizbeth Lopez) Corine Service: (none) Author Type: Physician Type: Progress Notes Filed: 04/12/2018 11:33 AM Note Text: Chief Complaint Patient presents with: F/U 3 Month HPI David Berg is a 62 year old female who presents here today for 3 month follow up. Patient has been off the Rifampin for about 2 weeks for history of positive PPD test and abnormal CXR back in July of this year. Took Rifampin for about [address] Nelson's recommendations. At last OV with them, they recommend she finish abx and repeat TB test. Requesting today. Admits to night sweats. Denies cough, fever, hemoptysis. Patient following up with Dr. Mckinney and PT after left foot fracture back in September after falling down 3 stairs. Still wearing boot and attending PT once per week and sees Dr. Mckinney about once per month. Has insert she is to wear, but causes her too much pain. Feels PT more effective for her pain. Prediabetes: patient due for repeat A1C, did not draw before appointment today. Has been trying to avoid sweets, but doesn't like many vegetables or fruits and hates fish. Stopped buying cream sticks and cut back on chocolate milk, was drinking 1 gallon per day. Denies polyuria, polyphagia, polydipsia, vision changes. RLS: controlled on requip. Migraines: controlled with Maxalt at current dosage. Using a couple times per month. Past medical history, appointments, medications, allergies reviewed. Previous Medical History PAST MEDICAL HISTORY Diagnosis Date - Acute hepatitis C without mention of hepatic coma(070.51) - Anxiety state 05/29/2005 Dr. Ryan - Bulimia 02/16/2013 - Cervical vertebral fracture (HCC) 05/07/2011 - Chronic obstructive pulmonary disease (COPD) (HCC) - Cleft lip, unspecified 01/24/2005 - Contact dermatitis and other eczema, due to unspecified cause 09/07/2011 - DDD (degenerative disc disease), cervical 05/07/2011 - Depressive disorder, not elsewhere classified - Epileptic petit mal status (HCC) - Generalized osteoarthrosis, unspecified site neck - HEPATITIS C CARRIER--treated with IFN and ribavirin and is in remission (as of 05/21) 05/29/2005 - HNP (herniated nucleus pulposus), lumbar 06/27/2015 - Hyperlipidemia - Migraine headache 02/15/2012 - 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 Choi-ID - Psoriasis - Rheumatoid arthritis involving multiple sites with positive rheumatoid factor (HCC) 12/13/[address] Bowden - RLS (restless legs syndrome) 08/29/2011 - Vitamin D deficiency Previous Surgical History PAST SURGICAL HISTORY Procedure Laterality Date - COCHLEAR IMPLANT HX - COLONOSCOP W/ OR W/O BRSH SPEC 10/11/2009 Colonoscopy - OPEN RX NOSE FRACTURE x2 no breathing problems - PAST SURGICAL HISTORY OF X 2 - PAST SURGICAL HISTORY OF FACIAL RECONSTRUCTION - PAST SURGICAL HISTORY OF 1997 BILAT. SHOULDER SURGERY - PAST SURGICAL HISTORY OF 1994 CERVICAL SPINE FUSION C4, C5 (had cervical fx x3 - even after repair) - PAST SURGICAL HISTORY OF 1969 LEFT EAR CHOLESTEATOMA - PAST SURGICAL HISTORY OF CLEFT LIP - PAST SURGICAL HISTORY OF REBUILD JAW - PAST SURGICAL HISTORY OF 02/2006 lasik - PAST SURGICAL HISTORY OF 2004 bladder sling - TRACHEOSTOMY,EMERG,XTRACH age 3 or 4 during surgery; lost airway Family History FAMILY HISTORY Problem Relation Age of Onset - Stroke Mother - Hypertension Mother - Diabetes Father - Cancer Father melanoma - Cancer Sister thyroid - Cancer Brother 21 testicular - Breast Cancer Sister - Breast Cancer Sister - Breast Cancer Maternal Aunt - Cancer Other [id number]-[id number] Patient Allergies ALLERGIES Allergen Reactions - Codeine Rash, Itching - Darvocet A500 [Prop* Rash, Itching - Darvon [Propoxyphen* Rash, Itching - Daypro [Oxaprozin] Rash - Effexor [Venlafaxin* Intolerance decreased libido - Flexeril [Cyclobenz* GI Upset, Vomiting - Gabapentin Mental Status Change hangover - [place] [Hydrocodone-* GI Upset, Itching nausea, itching - Oxybutynin Other: See Comments Urinary retention - [place] [Trees] rash - [place] [Pentazocine* Itching GI upset - Ultram [Tramadol Hc* GI Upset - Vioxx [Rofecoxib] Rash Current Medications Current Outpatient Prescriptions on File Prior to Visit: abatacept (ORENCIA, WITH MALTOSE,) 250 mg injection Inject 750 mg intravenously q 4 WEEKS. alendronate (FOSAMAX) 70 mg tablet take 1 tablet by mouth ONCE EACH WEEK, IN THE MORNING WITH A FULL GLASS OF WATER, ON AN EMPTY STOMACH, AND DO NOT TAKE ANYTHING ELSE BY MOUT ALPRAZolam (XANAX) 1 mg tablet Take 1 mg by mouth twice daily. atorvastatin (LIPITOR) 20 mg tablet Take 1 tablet by mouth daily at bedtime. For cholesterol. calcium carbonate 600 mg-cholecalciferol 400 units (CALCIUM 600 + D) 600 mg(1,500mg) -400 unit tab Take 1 tablet by mouth once daily. carisoprodol (SOMA) 350 mg tablet Take 1 tablet by mouth three times daily as needed for Muscle Spasm for up to 30 days. Refill on start date. ergocalciferol, vitamin D2, (DRISDOL) 50,000 unit capsule Take 1 capsule by mouth once each week. nicotine (NICOTROL) 10 mg inhaler Inhale 2 Puffs as instructed as needed. omega-3 fatty acids 1,000 mg cap Take 2 capsules by mouth once daily. ondansetron orally disintegrating (ZOFRAN ODT) 4 mg disintegrating tablet Take 1 tablet by mouth every 12 hours as needed for Nausea/Vomiting. potassium chloride SR (MICRO-K) 8 mEq cpER take 1 capsule by mouth once daily with BREAKFAST promethazine (PHENERGAN) 25 mg tablet Take 1 tablet by mouth every 6 hours as needed for Nausea/Vomiting. QUEtiapine (SEROQUEL) 100 mg tablet Take 2 tablets by mouth daily at bedtime. rizatriptan (MAXALT) 10 mg tablet Take 1 tablet by mouth at onset of headache. May repeat after 1hr rOPINIRole (REQUIP) 1 mg tablet Take 1 tablet by mouth daily at bedtime. tretinoin (RETIN-A) 0.025 % gel Apply 1 application to affected area daily at bedtime. DX: Psoriasis L40.9/ 696.1 rifAMPin (RIFADIN) 150 mg capsule Take 300 mg by mouth once daily. No current facility-administered medications on file prior to visit. 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 Social History Main Topics Smoking status: Former Smoker Packs/day: 1.00 Years: 30.00 Types: Cigarettes, Pipe Quit date: 06/02/2017 Smokeless tobacco: Never Used Comment: vapes Alcohol use: No Drug use: No Comment: IV DRUG USER Sexual activity: Yes Partners with: Male control/protection: Surgical Social History Narrative PT ADMITS TO IV DRUG USE IN THE Review of Symptoms REVIEW OF SYSTEMS GENERAL: No weight loss, malaise or fevers RESPIRATORY: Negative for cough, hemoptysis, wheezing, COPD, dyspnea or shortness of breath CARDIOVASCULAR: Negative for chest pain, leg swelling, hypertension, CHF or palpitations GI: No nausea, vomiting, or diarrhea SKIN: Negative for lesions, rash, and itching EXAM: BP 118/82 Pulse 90 Resp 22 Wt 73 kg (161 lb) BMI 27.49 kg/m? General Appearance: Well appearing, alert, in no acute distress, well-hydrated, well nourished.. Skin: Skin color, texture, turgor normal, no suspicious rashes or lesions. Lungs: lungs clear to auscultation. No wheezing, rhonchi, rales. Heart: RRR without murmur, gallop, or rubs. No ectopy. Abdomen: Normal abdominal exam, Abdomen soft, non-tender. Bowel sounds normal. No masses, organomegaly. Extremities: No deformities, edema, skin discoloration, clubbing or cyanosis. Good capillary refill. . Health Maintenance List LUNG CANCER SCREENING due on 2012 MAMMOGRAM due on 06/28/2017 ANNUAL PCP TEAM CHRONIC DISEASE VISIT due on 01/08/2019 COLORECTAL CANCER SCREENING,SEE MODIFIER due on 10/12/2019 DIABETES SCREEN due on 01/03/2021 LIPID SCREEN due on 01/03/2023 PAP EVERY 5 YEARS due on 01/15/2023 HPV EVERY 5 YEARS due on 01/15/2023 DTAP,TDAP,TD(3 - Td) due on 09/15/2023 ONE PNEUMOVAX PRIOR TO AGE 65 Completed INFLUENZA Completed HEPATITIS C SCREENING Completed Data reviewed Component Latest Ref Rng AND Units 12/03/2017 01/03/2018 Protein, Total 6.3 - 8.0 g/dL 6.8 6.9 Albumin 3.9 - 4.9 g/dL 3.9 4.2 Calcium 8.5 - 10.2 mg/dL 9.7 9.4 Bilirubin, Total 0.2 - 1.3 mg/dL 0.2 <0.2 (L) Alkaline Phosphatase 32 - 117 U/L 62 58 AST 13 - 35 U/L 24 19 Glucose 74 - 99 mg/dL 85 104 (H) BUN 7 - 21 mg/dL 19 23 (H) Creatinine 0.58 - 0.96 mg/dL 0.86 0.79 Sodium 136 - 144 mmol/L 141 143 Potassium 3.7 - 5.1 mmol/L 4.8 4.6 Chloride 97 - 105 mmol/L 101 109 (H) CO2 22 - 30 mmol/L 26 23 Anion Gap 9 - 18 mmol/L 14 11 ALT 7 - 38 U/L 12 11 eGFR- >60 >60 eGFR-All Other Races . >60 >60 WBC 3.70 - 11.00 k/uL 5.98 RBC 3.90 - 5.20 m/uL 4.50 Hemoglobin 11.5 - 15.5 g/dL 13.6 Hematocrit 36.0 - 46.0 % 43.7 MCV 80.0 - 100.0 fL 97.1 MCH 26.0 - 34.0 pG 30.2 MCHC 30.5 - 36.0 g/dL 31.1 RDW-CV 11.5 - 15.0 % 15.2 (H) Platelet Count 150 - 400 k/uL 304 MPV 9.0 - 12.7 fL 11.1 Absolute nRBC <0.01 k/uL <0.01 Cholesterol, Total <200 mg/dL 229 (H) Triglyceride <150 mg/dL 76 HDL Cholesterol >39 mg/dL 88 LDL Cholesterol <100 mg/dL 126 (H) Non HDL Cholesterol <130 mg/dL 141 (H) Fasting Time hrs 9 VLDL Cholesterol <30 mg/dL 15 TC:HDL Ratio <5.10 2.60 LDL:HDL Ratio <2.54 1.43 Bilirubin, Conjug <0.2 mg/dL <0.2 Hemoglobin A1C 4.3 - 5.6 % 6.0 (H) Estimated Average Glucose mg/dL 126 Vitamin D 25 Hydroxy 31.0 - 80.0 ng/mL 20.7 (L) CRP <0.9 mg/dL 0.4 WSR 0 - 20 mm/hr 16 ASSESSMENT/PLAN: 1. Prediabetes - ICD9: 790.29, ICD10: R73.03 (primary diagnosis) Recheck A1C. Discussed diabetic diet and exercise as able with recent foot fracture. - HGB A1C 2. Vitamin D insufficiency - ICD9: 268.9, ICD10: E55.9 Recheck Vitamin D level. - VITAMIN D 25 HYDROXY 3. Mixed hyperlipidemia - ICD9: 272.2, ICD10: E78.2 - suboptimal control - Continue current medication. - Encouraged following a low fat, low cholesterol diet. - Discussed the benefits of regular aerobic exercise and weight loss. - OMEGA-3 FATTY ACIDS 1,000 MG CAPSULE 4. RLS (restless legs syndrome) - ICD9: 333.94, ICD10: G25.81 Controlled on Requip. 5. Migraine without aura and without status migrainosus, not intractable - ICD9: 346.10, ICD10: G43.009 Continue Maxalt PRN. Discussed avoidance of triggers. 6. Anxiety state - ICD9: 300.00, ICD10: F41.1 Controlled on current regimen. Recommendations per Dr. Ryan's office. 7. Positive PPD - ICD9: 795.51, ICD10: R76.11 Repeat TB test as patient has finished with Rifampin. - BLOOD TB SCREEN Lizbeth Pool MD CNOV Observed: 04/10/2018 Status: COMPLETED Source: [place] 1:20 PM [facility] REPOSITORY Office Visit (FAMPWS) DAVID BERG ([id number]) 1955 F Date Time Provider Department 04/10/18 1:20 PM LIZBETH POOL) FAMPWS During your visit today, we recorded the following information about you: Pulse Respiration Blood pressure Weight 90/minute 22/minute 118/82 73 kg Lizbeth Pool MD 04/12/2018 11:33 AM Signed Chief Complaint Patient presents with: F/U 3 Month HPI David Berg is a 62 year old female who presents here today for 3 month follow up. Patient has been off the Rifampin for about 2 weeks for history of positive PPD test and abnormal CXR back in July of this year. Took Rifampin for about [address] Nelson's recommendations. At last OV with them, they recommend she finish abx and repeat TB test. Requesting today. Admits to night sweats. Denies cough, fever, hemoptysis. Patient following up with Dr. Mckinney and PT after left foot fracture back in September after falling down 3 stairs. Still wearing boot and attending PT once per week and sees Dr. Mckinney about once per month. Has insert she is to wear, but causes her too much pain. Feels PT more effective for her pain. Prediabetes: patient due for repeat A1C, did not draw before appointment today. Has been trying to avoid sweets, but doesn't like many vegetables or fruits and hates fish. Stopped buying cream sticks and cut back on chocolate milk, was drinking 1 gallon per day. Denies polyuria, polyphagia, polydipsia, vision changes. RLS: controlled on requip. Migraines: controlled with Maxalt at current dosage. Using a couple times per month. Past medical history, appointments, medications, allergies reviewed. Previous Medical History PAST MEDICAL HISTORY Diagnosis Date - Acute hepatitis C without mention of hepatic coma(070.51) - Anxiety state 05/29/2005 Dr. Ryan - Bulimia 02/16/2013 - Cervical vertebral fracture (HCC) 05/07/2011 - Chronic obstructive pulmonary disease (COPD) (HCC) - Cleft lip, unspecified 01/24/2005 - Contact dermatitis and other eczema, due to unspecified cause 09/07/2011 - DDD (degenerative disc disease), cervical 05/07/2011 - Depressive disorder, not elsewhere classified - Epileptic petit mal status (HCC) - Generalized osteoarthrosis, unspecified site neck - HEPATITIS C CARRIER--treated with IFN and ribavirin and is in remission (as of 05/21) 05/29/2005 - HNP (herniated nucleus pulposus), lumbar 06/27/2015 - Hyperlipidemia - Migraine headache 02/15/2012 - 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 Choi-ID - Psoriasis - Rheumatoid arthritis involving multiple sites with positive rheumatoid factor (HCC) 12/13/[address] Bowden - RLS (restless legs syndrome) 08/29/2011 - Vitamin D deficiency Previous Surgical History PAST SURGICAL HISTORY Procedure Laterality Date - COCHLEAR IMPLANT HX - COLONOSCOP W/ OR W/O BRSH SPEC 10/11/2009 Colonoscopy - OPEN RX NOSE FRACTURE x2 no breathing problems - PAST SURGICAL HISTORY OF X 2 - PAST SURGICAL HISTORY OF FACIAL RECONSTRUCTION - PAST SURGICAL HISTORY OF 1997 BILAT. SHOULDER SURGERY - PAST SURGICAL HISTORY OF 1994 CERVICAL SPINE FUSION C4, C5 (had cervical fx x3 - even after repair) - PAST SURGICAL HISTORY OF 1969 LEFT EAR CHOLESTEATOMA - PAST SURGICAL HISTORY OF CLEFT LIP - PAST SURGICAL HISTORY OF REBUILD JAW - PAST SURGICAL HISTORY OF 02/2006 lasik - PAST SURGICAL HISTORY OF 2004 bladder sling - TRACHEOSTOMY,EMERG,XTRACH age 3 or 4 during surgery; lost airway Family History FAMILY HISTORY Problem Relation Age of Onset - Stroke Mother - Hypertension Mother - Diabetes Father - Cancer Father melanoma - Cancer Sister thyroid - Cancer Brother 21 testicular - Breast Cancer Sister - Breast Cancer Sister - Breast Cancer Maternal Aunt - Cancer Other [id number] Patient Allergies ALLERGIES Allergen Reactions - Codeine Rash, Itching - Darvocet A500 [Prop* Rash, Itching - Darvon [Propoxyphen* Rash, Itching - Daypro [Oxaprozin] Rash - Effexor [Venlafaxin* Intolerance decreased libido - Flexeril [Cyclobenz* GI Upset, Vomiting - Gabapentin Mental Status Change hangover - [place] [Hydrocodone-* GI Upset, Itching nausea, itching - Oxybutynin Other: See Comments Urinary retention - [place] [Trees] rash - Talwin [Pentazocine* Itching GI upset - Ultram [Tramadol Hc* GI Upset - Vioxx [Rofecoxib] Rash Current Medications Current Outpatient Prescriptions on File Prior to Visit: abatacept (ORENCIA, WITH MALTOSE,) 250 mg injection Inject 750 mg intravenously q 4 WEEKS. alendronate (FOSAMAX) 70 mg tablet take 1 tablet by mouth ONCE EACH WEEK, IN THE MORNING WITH A FULL GLASS OF WATER, ON AN EMPTY STOMACH, AND DO NOT TAKE ANYTHING ELSE BY MOUT ALPRAZolam (XANAX) 1 mg tablet Take 1 mg by mouth twice daily. atorvastatin (LIPITOR) 20 mg tablet Take 1 tablet by mouth daily at bedtime. For cholesterol. calcium carbonate 600 mg-cholecalciferol 400 units (CALCIUM 600 + D) 600 mg(1,500mg) -400 unit tab Take 1 tablet by mouth once daily. carisoprodol (SOMA) 350 mg tablet Take 1 tablet by mouth three times daily as needed for Muscle Spasm for up to 30 days. Refill on start date. ergocalciferol, vitamin D2, (DRISDOL) 50,000 unit capsule Take 1 capsule by mouth once each week. nicotine (NICOTROL) 10 mg inhaler Inhale 2 Puffs as instructed as needed. omega-3 fatty acids 1,000 mg cap Take 2 capsules by mouth once daily. ondansetron orally disintegrating (ZOFRAN ODT) 4 mg disintegrating tablet Take 1 tablet by mouth every 12 hours as needed for Nausea/Vomiting. potassium chloride SR (MICRO-K) 8 mEq cpER take 1 capsule by mouth once daily with BREAKFAST promethazine (PHENERGAN) 25 mg tablet Take 1 tablet by mouth every 6 hours as needed for Nausea/Vomiting. QUEtiapine (SEROQUEL) 100 mg tablet Take 2 tablets by mouth daily at bedtime. rizatriptan (MAXALT) 10 mg tablet Take 1 tablet by mouth at onset of headache. May repeat after 1hr rOPINIRole (REQUIP) 1 mg tablet Take 1 tablet by mouth daily at bedtime. tretinoin (RETIN-A) 0.025 % gel Apply 1 application to affected area daily at bedtime. DX: Psoriasis L40.9/ 696.1 rifAMPin (RIFADIN) 150 mg capsule Take 300 mg by mouth once daily. No current facility-administered medications on file prior to visit. 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 Social History Main Topics Smoking status: Former Smoker Packs/day: 1.00 Years: 30.00 Types: Cigarettes, Pipe Quit date: 06/02/2017 Smokeless tobacco: Never Used Comment: vapes Alcohol use: No Drug use: No Comment: IV DRUG USER Sexual activity: Yes Partners with: Male control/protection: Surgical Social History Narrative PT ADMITS TO IV DRUG USE IN THE Review of Symptoms REVIEW OF SYSTEMS GENERAL: No weight loss, malaise or fevers RESPIRATORY: Negative for cough, hemoptysis, wheezing, COPD, dyspnea or shortness of breath CARDIOVASCULAR: Negative for chest pain, leg swelling, hypertension, CHF or palpitations GI: No nausea, vomiting, or diarrhea SKIN: Negative for lesions, rash, and itching EXAM: BP 118/82 Pulse 90 Resp 22 Wt 73 kg (161 lb) BMI 27.49 kg/m? General Appearance: Well appearing, alert, in no acute distress, well-hydrated, well nourished.. Skin: Skin color, texture, turgor normal, no suspicious rashes or lesions. Lungs: lungs clear to auscultation. No wheezing, rhonchi, rales. Heart: RRR without murmur, gallop, or rubs. No ectopy. Abdomen: Normal abdominal exam, Abdomen soft, non-tender. Bowel sounds normal. No masses, organomegaly. Extremities: No deformities, edema, skin discoloration, clubbing or cyanosis. Good capillary refill. . Health Maintenance List LUNG CANCER SCREENING due on 2012 MAMMOGRAM due on 06/28/2017 ANNUAL PCP TEAM CHRONIC DISEASE VISIT due on 01/08/2019 COLORECTAL CANCER SCREENING,SEE MODIFIER due on 10/12/2019 DIABETES SCREEN due on 01/03/2021 LIPID SCREEN due on 01/03/2023 PAP EVERY 5 YEARS due on 01/15/2023 HPV EVERY 5 YEARS due on 01/15/2023 DTAP,TDAP,TD(3 - Td) due on 09/15/2023 ONE PNEUMOVAX PRIOR TO AGE 65 Completed INFLUENZA Completed HEPATITIS C SCREENING Completed Data reviewed Component Latest Ref Rng AND Units 12/03/2017 01/03/2018 Protein, Total 6.3 - 8.0 g/dL 6.8 6.9 Albumin 3.9 - 4.9 g/dL 3.9 4.2 Calcium 8.5 - 10.2 mg/dL 9.7 9.4 Bilirubin, Total 0.2 - 1.3 mg/dL 0.2 <0.2 (L) Alkaline Phosphatase 32 - 117 U/L 62 58 AST 13 - 35 U/L 24 19 Glucose 74 - 99 mg/dL 85 104 (H) BUN 7 - 21 mg/dL 19 23 (H) Creatinine 0.58 - 0.96 mg/dL 0.86 0.79 Sodium 136 - 144 mmol/L 141 143 Potassium 3.7 - 5.1 mmol/L 4.8 4.6 Chloride 97 - 105 mmol/L 101 109 (H) CO2 22 - 30 mmol/L 26 23 Anion Gap 9 - 18 mmol/L 14 11 ALT 7 - 38 U/L 12 11 eGFR- >60 >60 eGFR-All Other Races . >60 >60 WBC 3.70 - 11.00 k/uL 5.98 RBC 3.90 - 5.20 m/uL 4.50 Hemoglobin 11.5 - 15.5 g/dL 13.6 Hematocrit 36.0 - 46.0 % 43.7 MCV 80.0 - 100.0 fL 97.1 MCH 26.0 - 34.0 pG 30.2 MCHC 30.5 - 36.0 g/dL 31.1 RDW-CV 11.5 - 15.0 % 15.2 (H) Platelet Count 150 - 400 k/uL 304 MPV 9.0 - 12.7 fL 11.1 Absolute nRBC <0.01 k/uL <0.01 Cholesterol, Total <200 mg/dL 229 (H) Triglyceride <150 mg/dL 76 HDL Cholesterol >39 mg/dL 88 LDL Cholesterol <100 mg/dL 126 (H) Non HDL Cholesterol <130 mg/dL 141 (H) Fasting Time hrs 9 VLDL Cholesterol <30 mg/dL 15 TC:HDL Ratio <5.10 2.60 LDL:HDL Ratio <2.54 1.43 Bilirubin, Conjug <0.2 mg/dL <0.2 Hemoglobin A1C 4.3 - 5.6 % 6.0 (H) Estimated Average Glucose mg/dL 126 Vitamin D 25 Hydroxy 31.0 - 80.0 ng/mL 20.7 (L) CRP <0.9 mg/dL 0.4 WSR 0 - 20 mm/hr 16 ASSESSMENT/PLAN: 1. Prediabetes - ICD9: 790.29, ICD10: R73.03 (primary diagnosis) Recheck A1C. Discussed diabetic diet and exercise as able with recent foot fracture. - HGB A1C 2. Vitamin D insufficiency - ICD9: 268.9, ICD10: E55.9 Recheck Vitamin D level. - VITAMIN D 25 HYDROXY 3. Mixed hyperlipidemia - ICD9: 272.2, ICD10: E78.2 - suboptimal control - Continue current medication. - Encouraged following a low fat, low cholesterol diet. - Discussed the benefits of regular aerobic exercise and weight loss. - OMEGA-3 FATTY ACIDS 1,000 MG CAPSULE 4. RLS (restless legs syndrome) - ICD9: 333.94, ICD10: G25.81 Controlled on Requip. 5. Migraine without aura and without status migrainosus, not intractable - ICD9: 346.10, ICD10: G43.009 Continue Maxalt PRN. Discussed avoidance of triggers. 6. Anxiety state - ICD9: 300.00, ICD10: F41.1 Controlled on current regimen. Recommendations per Dr. Ryan's office. 7. Positive PPD - ICD9: 795.51, ICD10: R76.11 Repeat TB test as patient has finished with Rifampin. - BLOOD TB SCREEN Lizbeth Pool MD Referring Provider: LIZBETH POOL () [[id number]] Allergies As of Date: 04/10/2018 Noted Allergy Reaction CODEINE 10/26/2004 2 - Rash 9 - Itching DARVOCET A500 (PROPOXYPHENE N-JESSICA*10/26/2004 2 - Rash 9 - Itching DARVON (PROPOXYPHENE HCL) 10/26/2004 2 - Rash 9 - Itching DAYPRO (OXAPROZIN) 01/02/2005 2 - Rash EFFEXOR (VENLAFAXINE HCL) 01/02/2005 5 - Intolerance Comments: decreased libido FLEXERIL (CYCLOBENZAPRINE HCL) 01/02/2005 8 - GI Upset 11 - Vomiting GABAPENTIN 12/15/2015 1 - Mental Status Change Comments: hangover NORCO (HYDROCODONE-ACETAMINOPHEN) 01/02/2005 8 - GI Upset 9 - Itching Comments: nausea, itching OXYBUTYNIN 11/20/2011 14 - Other: See Comments Comments: Urinary retention PINE TREES (TREES) 12/07/2008 Comments: rash TALWIN (PENTAZOCINE LACTATE) 01/02/2005 9 - Itching Comments: GI upset ULTRAM (TRAMADOL HCL) 01/02/2005 8 - GI Upset VIOXX (ROFECOXIB) 01/02/2005 2 - Rash Date Reviewed: 04/10/2018 Reviewed by: Kd Og Ma - Fully Assessed Reason for Visit: F/U 3 Month [443] Primary Visit Diagnosis:Prediabetes [R73.03] Other Visit Diagnoses:Vitamin D insufficiency [E55.9] Mixed hyperlipidemia [E78.2] RLS (restless legs syndrome) [G25.81] Migraine without aura and without status migrainosus, not intractable [G43.009] Anxiety state [F41.1] Positive PPD [R76.11] Order(s):omega-3 fatty acids 1,000 mg capTake 2 capsules by mouth once daily.Disp: 60 capsuleRfl: 12 VITAMIN D 25 HYDROXY [SQVITD] Order #: [id number] FUTURE HGB A1C [MXMGD9Z] Order #: [id number] FUTURE BLOOD TB SCREEN [SQINFTBP] Order #: [id number] FUTURE Prescriptions as of 04/10/2018 Sig: ABATACEPT (WITH MALTOSE) 250 * Inject 750 mg intravenously q* ALENDRONATE 70 MG TABLET take 1 tablet by mouth ONCE E* ALPRAZOLAM 1 MG TABLET Take 1 mg by mouth twice jaleel* ATORVASTATIN 20 MG TABLET Take 1 tablet by mouth daily * CALCIUM CARBONATE 600 MG (1,5* Take 1 tablet by mouth once d* ERGOCALCIFEROL (VITAMIN D2) 5* Take 1 capsule by mouth once * NICOTINE 10 MG INHALATION CAR* Inhale 2 Puffs as instructed * OMEGA-3 FATTY ACIDS 1,000 MG * Take 2 capsules by mouth once* ONDANSETRON 4 MG DISINTEGRATI* Take 1 tablet by mouth every * POTASSIUM CHLORIDE ER 8 MEQ C* take 1 capsule by mouth once * PROMETHAZINE 25 MG TABLET Take 1 tablet by mouth every * QUETIAPINE 100 MG TABLET Take 2 tablets by mouth daily* RIZATRIPTAN 10 MG TABLET Take 1 tablet by mouth at ons* ROPINIROLE 1 MG TABLET Take 1 tablet by mouth daily * TRETINOIN 0.025 % TOPICAL GEL Apply 1 application to affect* X CARISOPRODOL 350 MG TABLET Take 1 tablet by mouth three * Problem List As Of Date 04/10/2018 Noted Resolved Cleft lip, 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 Orbital mass [H05.89] INVALID FOR*06/01/2016 RLS (restless legs syndrome) [G25.81] INVALID FOR* Nasal septal deviation [J34.2] INVALID FOR*06/01/2016 Pruritus of forearm [L29.9] INVALID FOR*06/01/2016 Pruritus - disorder INVALID FOR*06/01/2016 Eczematous dermatitis [L30.9] INVALID FOR*06/01/2016 Lichenoid dermatitis [L28.0] INVALID FOR*06/01/2016 Excoriation [T14.8XXA] INVALID FOR*06/01/2016 Capsulitis [M77.9] INVALID FOR*06/01/2016 Closed fracture of lateral malleolus [S82.63XA] INVALID FOR*06/01/2016 Contusion of toe [S90.129A] INVALID FOR*06/01/2016 Migraine headache [G43.909] INVALID FOR* Falls [W19.XXXA] INVALID FOR* Arthritis of left knee [M17.12] INVALID FOR*06/01/2016 Leg ulcer, left (HCC) [L97.929] INVALID FOR*06/01/2016 Xerosis cutis [L85.3] INVALID FOR*06/01/2016 Palpitations [R00.2] INVALID FOR* Cervical strain [S16.1XXA] INVALID FOR*06/01/2016 Cervical disc disease [M50.90] INVALID FOR*06/01/2016 Bulimia [F50.2] INVALID FOR* Eating disorder [F50.9] INVALID FOR*06/01/2016 Positive PPD [R76.11] INVALID FOR* Personality disorder with predominantly sociopa*INVALID FOR* Insomnia [G47.00] INVALID FOR* Cataract of both eyes [H26.9] INVALID FOR*06/01/2016 More... Cervicalgia [M54.2] INVALID FOR* Lumbago [M54.5] INVALID FOR*06/01/2016 Encounter for long-term (current) use of medica*INVALID FOR*06/01/2016 Chronic pain syndrome [G89.4] INVALID FOR*06/01/2016 Left-sided low back pain with left-sided sciati*INVALID FOR* HNP (herniated nucleus pulposus), lumbar [M51.2*INVALID FOR* Rheumatoid arthritis involving multiple sites w*INVALID FOR* Dry eye syndrome [H04.129] INVALID FOR* Hyperlipidemia [E78.5] Acute left ankle pain [M25.572] INVALID FOR* Pain in toe of left foot [M79.675] INVALID FOR* Prediabetes [R73.03] Prescriptions ordered this encounter Disp Refills Start End OMEGA-3 FATTY ACIDS 1,000 MG CAPSULE 60 c* 12 04/10/2018 Route: ORAL Sig: Take 2 capsules by mouth once daily. Medications Discontinued During This Encounter rifAMPin (RIFADIN) 150 mg capsule 12/06/2017 04/10/2018 Class: Historical Med Route: ORAL Sig: Take 300 mg by mouth once daily. Disc: Reason for discontinue is not on file. omega-3 fatty acids 1,000 mg cap 60 c* 12 02/21/2017 04/10/2018 Route: ORAL Sig: Take 2 capsules by mouth once daily. Disc: Reason for discontinue is not on file. Disposition: Return in about 4 months (around 08/09/2018). Follow-up and Disposition History Recorded Encounter Status:Closed by LIZBETH POOL MD on 04/12/18 PROGRESS Observed: 04/02/2018 Status: COMPLETED Source: [place] 4:05 PM [facility] [place] REPOSITORY O ID: [id number] Author: Varghese (Pt) Amanda Service: (none) Author Type: Physical Therapist Type: Progress Notes Filed: 04/02/2018 6:33 PM Note Text: Episode Visit Count: 21 Therapist That Will Oversee The Plan Of Care: Jayleen Gurrola PT Start of Care Date: 12/18/17 Onset Date: 10/12/17 Plan of Care Certification Date: 02/12/18 Patient Identified by Name and Date of : Yes [facility] PHYSICAL THERAPY TREATMENT NOTE ASSESSMENT: David Marcus Berg demonstrated improvements in gait on level at end of treatment to near normal with a reduction in pain from start of treatment. Patient with good follow through with HEP. Compression sock is helping with edema control and patient likes how she feels when wearing the sock. The patient will continue to benefit from continued skilled physical therapy for therapeutic exercise, manual therapy and plan of care update. PLAN FOR NEXT VISIT: POC update next visit. SUBJECTIVE: Patient reports the top of foot and ankle are hurting today. She reports having a click in ankle with heel to toe walk. She reports it is uncomfortable but not a sharp pain. Patient reports she loves the compression sock. Pain Score: 6/10 Pain Location: Foot - Left Description: Aching;Throbbing Frequency: Continuous Post Treatment Pain Score: 4/10 Pain Location: Foot - Left Post Treatment Pain Description: Aching OBJECTIVE MEASURES WITH LEVEL OF FUNCTION: Ambulation on level with B shoes on at end of treatment with minimal gait deviation! TREATMENT: Therapeutic Exercise: 3: Passive left toe flexion 1-5 , 3-5 second hold x 2 each toe. 4: TOGA toe exercise with toe abduction, toe adduction and great toe extension with 2-4 press into floor and 2nd-4th toe extension and 1st and fifth on floor x 10 each 5: Left ankle ABC'sx 1. 6: Seated BAPS left ball 4 A/P, lateral, cw and ccw 1x 10 each. 7: Strap assist left gastroc stretch 3x30 seconds. 8: Left toe curls x 1 minute 9: Upright bike seat 6 x 10: [place] Rep band resistive df,pf,inv and evr x2x15. 11: Ambulation on level with B shoes on at end of treatment with minimal gait deviation! Skilled Intervention: Patient was educated in proper exercise technique and purpose for exercises. Skilled judgment was provided in selection of appropriate interventions. Increased ball height with BAPS to ball 4 today. Correct performance of therapeutic exercises was facilitated with verbal cuing. Manual Therapy: 2: IASTM with patient prone lying at end of treatment left gastroc, achilles arch and base of toes x 10 minutes. 3: Prone L ankle anterior mobs to help with PF, Grade II, 1x10 and 1x5 4: Prone L ankle Posterior mobs to help with DF, Grade II, 1x10 and 1x5 Skilled Intervention: Manual skills to improve joint mobility, ROM, and decrease pain. Utilized anatomy knowledge of the therapist, and assessment of patient's response to intervention. Billing: [facility]: Therapeutic Exercise (60220): 1:1 time: 37 minutes (2 units: 23-37 mins) Manual Therapy ([id number]): 1:1 time: 12 minutes (1 unit: 8-22 mins) Total time: 49 minutes GREGORY Felix PT CNTHERAPY Observed: 04/02/2018 Status: COMPLETED Source: [place] 3:00 PM [facility] REPOSITORY OT/PT/Speech Visit (PTWS) DAVID BERG ([id number]) 1955 F Date Time Provider Department 04/02/18 3:00 PM CAT VILLALOBOS (ETHANOL OPERATOR) PTWS Date Time Provider Department Center 04/02/2018 3:00 PM [id number], NANCY (ETHANOL OPERATOR) PTWS [facility] Reason for Visit: Physical Therapy [503] Primary Visit Diagnosis:Acute left ankle pain [M25.572] Other Visit Diagnosis:Pain in toe of left foot [M79.675] Allergies As of Date: 04/02/2018 Noted Allergy Reaction CODEINE 10/26/2004 2 - Rash 9 - Itching DARVOCET A500 (PROPOXYPHENE N-JESSICA*10/26/2004 2 - Rash 9 - Itching DARVON (PROPOXYPHENE HCL) 10/26/2004 2 - Rash 9 - Itching DAYPRO (OXAPROZIN) 01/02/2005 2 - Rash EFFEXOR (VENLAFAXINE HCL) 01/02/2005 5 - Intolerance Comments: decreased libido FLEXERIL (CYCLOBENZAPRINE HCL) 01/02/2005 8 - GI Upset 11 - Vomiting GABAPENTIN 12/15/2015 1 - Mental Status Change Comments: hangover NORCO (HYDROCODONE-ACETAMINOPHEN) 01/02/2005 8 - GI Upset 9 - Itching Comments: nausea, itching OXYBUTYNIN 11/20/2011 14 - Other: See Comments Comments: Urinary retention PINE TREES (TREES) 12/07/2008 Comments: rash TALWIN (PENTAZOCINE LACTATE) 01/02/2005 9 - Itching Comments: GI upset ULTRAM (TRAMADOL HCL) 01/02/2005 8 - GI Upset VIOXX (ROFECOXIB) 01/02/2005 2 - Rash Date Reviewed: 01/15/2018 Reviewed by: Eloisa Maldonado - Fully Assessed Prescriptions as of 04/02/2018 Sig: ABATACEPT (WITH MALTOSE) 250 * Inject 750 mg intravenously q* ALENDRONATE 70 MG TABLET take 1 tablet by mouth ONCE E* ALPRAZOLAM 1 MG TABLET Take 1 mg by mouth twice jaleel* ATORVASTATIN 20 MG TABLET Take 1 tablet by mouth daily * CALCIUM CARBONATE 600 MG (1,5* Take 1 tablet by mouth once d* CARISOPRODOL 350 MG TABLET Take 1 tablet by mouth three * ERGOCALCIFEROL (VITAMIN D2) 5* Take 1 capsule by mouth once * NICOTINE 10 MG INHALATION CAR* Inhale 2 Puffs as instructed * OMEGA-3 FATTY ACIDS 1,000 MG * Take 2 capsules by mouth once* ONDANSETRON 4 MG DISINTEGRATI* Take 1 tablet by mouth every * POTASSIUM CHLORIDE ER 8 MEQ C* take 1 capsule by mouth once * PROMETHAZINE 25 MG TABLET Take 1 tablet by mouth every * QUETIAPINE 100 MG TABLET Take 2 tablets by mouth daily* RIFAMPIN 150 MG CAPSULE Take 300 mg by mouth once nicki* RIZATRIPTAN 10 MG TABLET Take 1 tablet by mouth at ons* ROPINIROLE 1 MG TABLET Take 1 tablet by mouth daily * TRETINOIN 0.025 % TOPICAL GEL Apply 1 application to affect* Progress Notes: Varghese Patel, PT 04/02/2018 6:33 PM Signed Episode Visit Count: 21 Therapist That Will Oversee The Plan Of Care: Jayleen Gurrola PT Start of Care Date: 12/18/17 Onset Date: 10/12/17 Plan of Care Certification Date: 02/12/18 Patient Identified by Name and Date of : Yes REHABILITATION AND SPORTS THERAPY PHYSICAL THERAPY TREATMENT NOTE ASSESSMENT: David Berg demonstrated improvements in gait on level at end of treatment to near normal with a reduction in pain from start of treatment. Patient with good follow through with HEP. Compression sock is helping with edema control and patient likes how she feels when wearing the sock. The patient will continue to benefit from continued skilled physical therapy for therapeutic exercise, manual therapy and plan of care update. PLAN FOR NEXT VISIT: POC update next visit. SUBJECTIVE: Patient reports the top of foot and ankle are hurting today. She reports having a click in ankle with heel to toe walk. She reports it is uncomfortable but not a sharp pain. Patient reports she loves the compression sock. Pain Score: 6/10 Pain Location: Foot - Left Description: Aching;Throbbing Frequency: Continuous Post Treatment Pain Score: 4/10 Pain Location: Foot - Left Post Treatment Pain Description: Aching OBJECTIVE MEASURES WITH LEVEL OF FUNCTION: Ambulation on level with B shoes on at end of treatment with minimal gait deviation! TREATMENT: Therapeutic Exercise: 3: Passive left toe flexion 1-5 , 3-5 second hold x 2 each toe. 4: TOGA toe exercise with toe abduction, toe adduction and great toe extension with 2-4 press into floor and 2nd-4th toe extension and 1st and fifth on floor x 10 each 5: Left ankle ABC'sx 1. 6: Seated BAPS left ball 4 A/P, lateral, cw and ccw 1x 10 each. 7: Strap assist left gastroc stretch 3x30 seconds. 8: Left toe curls x 1 minute 9: Upright bike seat 6 x 10: Austin Rep band resistive df,pf,inv and evr x2x15. 11: Ambulation on level with B shoes on at end of treatment with minimal gait deviation! Skilled Intervention: Patient was educated in proper exercise technique and purpose for exercises. Skilled judgment was provided in selection of appropriate interventions. Increased ball height with BAPS to ball 4 today. Correct performance of therapeutic exercises was facilitated with verbal cuing. Manual Therapy: 2: IASTM with patient prone lying at end of treatment left gastroc, achilles arch and base of toes x 10 minutes. 3: Prone L ankle anterior mobs to help with PF, Grade II, 1x10 and 1x5 4: Prone L ankle Posterior mobs to help with DF, Grade II, 1x10 and 1x5 Skilled Intervention: Manual skills to improve joint mobility, ROM, and decrease pain. Utilized anatomy knowledge of the therapist, and assessment of patient's response to intervention. Billing: [facility]: Therapeutic Exercise ([id number]): 1:1 time: 37 minutes (2 units: 23-37 mins) Manual Therapy ([id number]): 1:1 time: 12 minutes (1 unit: 8-22 mins) Total time: 49 minutes Cat Villalobos PTAlfred Patel PT Previous Version Follow-up and Disposition History Recorded PROGRESS Observed: 03/31/2018 Status: COMPLETED Source: [place] 4:30 PM [facility] REPOSITORY HNO ID: [id number] Author: Jayleen (Pt) [employer] Service: (none) Author Type: Physical Therapist Type: Progress Notes Filed: 04/01/2018 7:09 AM Note Text: Episode Visit Count: 20 Therapist That Will Oversee The Plan Of Care: Jayleen Gurrola PT Start of Care Date: 12/18/17 Onset Date: 10/12/17 Plan of Care Certification Date: 02/12/18 Patient Identified by Name and Date of : Yes REHABILITATION AND SPORTS THERAPY PHYSICAL THERAPY TREATMENT NOTE ASSESSMENT: David Berg demonstrated difficulty with burning pain base of 2nd toe today. Patient with improved ability to wear normal matching shoes to department today. Improved control with seated BAPS with less pain and fatigue. The patient will continue to benefit from continued skilled physical therapy for progression of strengthening and IASTM. PLAN FOR NEXT VISIT: POC update scheduled for 04/21/2018. Possible passive toe stretching pending patient's subjective c/o. SUBJECTIVE: Patient reports the base of 2nd toe is burning today and is more constant since last night. She reports today is the first day she wore B shoes out of the house. She reports increase posterior ankle and posterior foot are hurting more from wearing shoes. Pain Score: 6/10 Pain Location: Foot - Left Description: Aching;Burning Frequency: Continuous Post Treatment Pain Score: No Change OBJECTIVE MEASURES WITH LEVEL OF FUNCTION: Patient able to ambulate to department today with normal matching shoes today! TREATMENT: Therapeutic Exercise: 4: TOGA toe exercise with toe abduction, toe adduction and great toe extension with 2-4 press into floor and 2nd-4th toe extension and 1st and fifth on floor x 10 each 5: Left ankle ABC'sx 1. 6: Seated BAPS left ball 3 A/P, lateral, cw and ccw 2x 15 each. 7: Strap assist left gastroc stretch 3x30 seconds. 8: Left toe curls x 1 minute 10: Austin Rep band resistive df,pf,inv and evr x2x15. 11: Ambulation on level with B shoes on at end of treatment with minimal gait deviation! Skilled Intervention: Patient was educated in proper exercise technique and purpose for exercises. Skilled judgment was provided in selection of appropriate interventions. Correct performance of therapeutic exercises was facilitated with verbal cuing. Manual Therapy: 2: IASTM with patient prone lying at end of treatment left gastroc, achilles arch and base of toes x 10 minutes. 3: Prone L ankle anterior mobs to help with PF, Grade II, 1x10 and 1x5 4: Prone L ankle Posterior mobs to help with DF, Grade II, 1x10 and 1x5 Skilled Intervention: Manual skills to improve joint mobility, ROM, and decrease pain. Utilized anatomy knowledge of the therapist, and assessment of patient's response to intervention. Billing: [facility]: Therapeutic Exercise ([id number]): 1:1 time: 30 minutes (2 units: 23-37 mins) Manual Therapy ([id number]): 1:1 time: 12 minutes (1 unit: 8-22 mins) Total time: 42 minutes GREGORY Felix PT CNTHERAPY Observed: 03/31/2018 Status: COMPLETED Source: [place] 2:45 PM [facility] REPOSITORY OT/PT/Speech Visit (PTWS) DAVID BERG ([id number]) 1955 F Date Time Provider Department 03/31/18 2:45 PM CAT VILLALOBOS (ETHANOL OPERATOR) PTWS Date Time Provider Department Center 03/31/2018 2:45 PM [id number], NANCY (ETHANOL OPERATOR) PTWS [facility] Reason for Visit: Physical Therapy [503] Primary Visit Diagnosis:Acute left ankle pain [M25.572] Other Visit Diagnosis:Pain in toe of left foot [M79.675] Allergies As of Date: 03/31/2018 Noted Allergy Reaction CODEINE 10/26/2004 2 - Rash 9 - Itching DARVOCET A500 (PROPOXYPHENE N-JESSICA*10/26/2004 2 - Rash 9 - Itching DARVON (PROPOXYPHENE HCL) 10/26/2004 2 - Rash 9 - Itching DAYPRO (OXAPROZIN) 01/02/2005 2 - Rash EFFEXOR (VENLAFAXINE HCL) 01/02/2005 5 - Intolerance Comments: decreased libido FLEXERIL (CYCLOBENZAPRINE HCL) 01/02/2005 8 - GI Upset 11 - Vomiting GABAPENTIN 12/15/2015 1 - Mental Status Change Comments: hangover NORCO (HYDROCODONE-ACETAMINOPHEN) 01/02/2005 8 - GI Upset 9 - Itching Comments: nausea, itching OXYBUTYNIN 11/20/2011 14 - Other: See Comments Comments: Urinary retention PINE TREES (TREES) 12/07/2008 Comments: rash TALWIN (PENTAZOCINE LACTATE) 01/02/2005 9 - Itching Comments: GI upset ULTRAM (TRAMADOL HCL) 01/02/2005 8 - GI Upset VIOXX (ROFECOXIB) 01/02/2005 2 - Rash Date Reviewed: 01/15/2018 Reviewed by: Eloisa Maldonado - Fully Assessed Prescriptions as of 03/31/2018 Sig: ABATACEPT (WITH MALTOSE) 250 * Inject 750 mg intravenously q* ALENDRONATE 70 MG TABLET take 1 tablet by mouth ONCE E* ALPRAZOLAM 1 MG TABLET Take 1 mg by mouth twice jaleel* ATORVASTATIN 20 MG TABLET Take 1 tablet by mouth daily * CALCIUM CARBONATE 600 MG (1,5* Take 1 tablet by mouth once d* CARISOPRODOL 350 MG TABLET Take 1 tablet by mouth three * ERGOCALCIFEROL (VITAMIN D2) 5* Take 1 capsule by mouth once * NICOTINE 10 MG INHALATION CAR* Inhale 2 Puffs as instructed * OMEGA-3 FATTY ACIDS 1,000 MG * Take 2 capsules by mouth once* ONDANSETRON 4 MG DISINTEGRATI* Take 1 tablet by mouth every * POTASSIUM CHLORIDE ER 8 MEQ C* take 1 capsule by mouth once * PROMETHAZINE 25 MG TABLET Take 1 tablet by mouth every * QUETIAPINE 100 MG TABLET Take 2 tablets by mouth daily* RIFAMPIN 150 MG CAPSULE Take 300 mg by mouth once nicki* RIZATRIPTAN 10 MG TABLET Take 1 tablet by mouth at ons* ROPINIROLE 1 MG TABLET Take 1 tablet by mouth daily * TRETINOIN 0.025 % TOPICAL GEL Apply 1 application to affect* Progress Notes: Jayleen Gurrola PT 04/01/2018 7:09 AM Signed Episode Visit Count: 20 Therapist That Will Oversee The Plan Of Care: Jayleen Gurrola PT Start of Care Date: 12/18/17 Onset Date: 10/12/17 Plan of Care Certification Date: 02/12/18 Patient Identified by Name and Date of : Yes REHABILITATION AND SPORTS THERAPY PHYSICAL THERAPY TREATMENT NOTE ASSESSMENT: David Berg demonstrated difficulty with burning pain base of 2nd toe today. Patient with improved ability to wear normal matching shoes to department today. Improved control with seated BAPS with less pain and fatigue. The patient will continue to benefit from continued skilled physical therapy for progression of strengthening and IASTM. PLAN FOR NEXT VISIT: POC update scheduled for 04/21/2018. Possible passive toe stretching pending patient's subjective c/o. SUBJECTIVE: Patient reports the base of 2nd toe is burning today and is more constant since last night. She reports today is the first day she wore B shoes out of the house. She reports increase posterior ankle and posterior foot are hurting more from wearing shoes. Pain Score: 6/10 Pain Location: Foot - Left Description: Aching;Burning Frequency: Continuous Post Treatment Pain Score: No Change OBJECTIVE MEASURES WITH LEVEL OF FUNCTION: Patient able to ambulate to department today with normal matching shoes today! TREATMENT: Therapeutic Exercise: 4: TOGA toe exercise with toe abduction, toe adduction and great toe extension with 2-4 press into floor and 2nd-4th toe extension and 1st and fifth on floor x 10 each 5: Left ankle ABC'sx 1. 6: Seated BAPS left ball 3 A/P, lateral, cw and ccw 2x 15 each. 7: Strap assist left gastroc stretch 3x30 seconds. 8: Left toe curls x 1 minute 10: Austin Rep band resistive df,pf,inv and evr x2x15. 11: Ambulation on level with B shoes on at end of treatment with minimal gait deviation! Skilled Intervention: Patient was educated in proper exercise technique and purpose for exercises. Skilled judgment was provided in selection of appropriate interventions. Correct performance of therapeutic exercises was facilitated with verbal cuing. Manual Therapy: 2: IASTM with patient prone lying at end of treatment left gastroc, achilles arch and base of toes x 10 minutes. 3: Prone L ankle anterior mobs to help with PF, Grade II, 1x10 and 1x5 4: Prone L ankle Posterior mobs to help with DF, Grade II, 1x10 and 1x5 Skilled Intervention: Manual skills to improve joint mobility, ROM, and decrease pain. Utilized anatomy knowledge of the therapist, and assessment of patient's response to intervention. Billing: [facility]: Therapeutic Exercise ([id number]): 1:1 time: 30 minutes (2 units: 23-37 mins) Manual Therapy ([id number]): 1:1 time: 12 minutes (1 unit: 8-22 mins) Total time: 42 minutes Cat Villalobos, PT-Love Gurrola PT Previous Version Follow-up and Disposition History Recorded PROGRESS Observed: 03/26/2018 Status: COMPLETED Source: [place] 3:57 PM [facility] REPOSITORY HNO ID: [id number] Author: Jayleen (Pt) [employer] Service: (none) Author Type: Physical Therapist Type: Progress Notes Filed: 03/26/2018 6:34 PM Note Text: Episode Visit Count: 19 Therapist That Will Oversee The Plan Of Care: Jayleen Gurrola PT Start of Care Date: 12/18/17 Onset Date: 10/12/17 Plan of Care Certification Date: 02/12/18 Patient Identified by Name and Date of : Yes REHABILITATION AND SPORTS THERAPY PHYSICAL THERAPY TREATMENT NOTE ASSESSMENT: David Berg demonstrated improvements in gait on level with near normal gait today! Decrease edema in left ankle. Patient still with difficulty with pain anterior ankle and toes. Patient able to walk forward and lateral side stepping over 6 hurdles today with normal foot placement. The patient will continue to benefit from continued skilled physical therapy for progression of exercises and step ups onto uneven surface. PLAN FOR NEXT VISIT: try Great toe mobs (flexion/extension) to assist with great toe pain. Possibly add step ups onto uneven surface next visit. PLEASE have patient schedule a visit with Jayleen Gurrola in April as need to do a POC update. SUBJECTIVE: Patient reports she likes the compression stockings and feels they are helping with swelling. She reports the ankle hurts today. Pain Score: 5/10 Pain Location: Foot - Left (top of ankle) Description: Aching;Throbbing Frequency: Continuous Post Treatment Pain Score: 4/10 Pain Location: Foot - Left Post Treatment Pain Description: Aching OBJECTIVE MEASURES WITH LEVEL OF FUNCTION: Patient able to walk forward and lateral side stepping over 6 hurdles today with normal foot placement. TREATMENT: Therapeutic Exercise: 4: TOGA toe exercise with toe abduction, toe adduction and great toe extension with 2-4 press into floor and 2nd-4th toe extension and 1st and fifth on floor x 10 each 5: Left ankle ABC'sx 1. 6: Seated BAPS left ball 3 A/P, lateral, cw and ccw x 12 each. 7: Strap assist left gastroc stretch 3x30 seconds. 8: Left toe curls x 1 minute 10: [place] Rep band resistive df,pf,inv and evr x2x15. Skilled Intervention: Patient was educated in proper exercise technique and purpose for exercises. Skilled judgment was provided in selection of appropriate interventions. Correct performance of therapeutic exercises was facilitated with verbal and visual cuing. Manual Therapy: 2: IASTM with patient prone lying at end of treatment left gastroc, achilles arch and base of toes x 10 minutes. 3: Prone L ankle anterior mobs to help with PF, Grade II, 1x10 and 1x5 4: Prone L ankle Posterior mobs to help with DF, Grade II, 1x10 and 1x5 Skilled Intervention: Manual skills to improve joint mobility, ROM, and decrease pain. Utilized anatomy knowledge of the therapist, and assessment of patient's response to intervention. Gait Trainin: Gait on level near normal today. Used mirror for patient for visual feedback and she was pleased to see how she was walking. 2: Forward and lateral walking over 6, 6 hurdles back and forth x 2 with CGA and normal stepping with this activity. Skilled Intervention: Gait belt utilized during session for safety. Provided verbal instruction for home program to facilitate proper performance and compliance. Gait belt used for gait over hurdles. Billing: [facility]: Therapeutic Exercise ([id number]): 1:1 time: 22 minutes (1 unit: 8-22 mins) Manual Therapy ([id number]): 1:1 time: 12 minutes (1 unit: 8-22 mins) Gait Training ([id number]): 1:1 time: 10 minutes (1 unit: 8-22 mins) Total time: 44 minutes Cat Villalobos PTAlfred Gurrola PT CNTHERAPY Observed: 03/26/2018 Status: COMPLETED Source: [place] 3:00 PM [facility] REPOSITORY OT/PT/Speech Visit (PTWS) DAVID BERG ([id number]) 1955 F Date Time Provider Department 03/26/18 3:00 PM CAT VILLALOBOS (ETHANOL OPERATOR) PTWS Date Time Provider Department Center 03/26/2018 3:00 PM [id number], NANCY (ETHANOL OPERATOR) PTWS [facility] Reason for Visit: Physical Therapy [503] Primary Visit Diagnosis:Acute left ankle pain [M25.572] Other Visit Diagnosis:Pain in toe of left foot [M79.675] Allergies As of Date: 03/26/2018 Noted Allergy Reaction CODEINE 10/26/2004 2 - Rash 9 - Itching DARVOCET A500 (PROPOXYPHENE N-JESSICA*10/26/2004 2 - Rash 9 - Itching DARVON (PROPOXYPHENE HCL) 10/26/2004 2 - Rash 9 - Itching DAYPRO (OXAPROZIN) 01/02/2005 2 - Rash EFFEXOR (VENLAFAXINE HCL) 01/02/2005 5 - Intolerance Comments: decreased libido FLEXERIL (CYCLOBENZAPRINE HCL) 01/02/2005 8 - GI Upset 11 - Vomiting GABAPENTIN 12/15/2015 1 - Mental Status Change Comments: hangover NORCO (HYDROCODONE-ACETAMINOPHEN) 01/02/2005 8 - GI Upset 9 - Itching Comments: nausea, itching OXYBUTYNIN 11/20/2011 14 - Other: See Comments Comments: Urinary retention PINE TREES (TREES) 12/07/2008 Comments: rash TALWIN (PENTAZOCINE LACTATE) 01/02/2005 9 - Itching Comments: GI upset ULTRAM (TRAMADOL HCL) 01/02/2005 8 - GI Upset VIOXX (ROFECOXIB) 01/02/2005 2 - Rash Date Reviewed: 01/15/2018 Reviewed by: Eloisa Maldonado - Fully Assessed Prescriptions as of 03/26/2018 Sig: ABATACEPT (WITH MALTOSE) 250 * Inject 750 mg intravenously q* ALENDRONATE 70 MG TABLET take 1 tablet by mouth ONCE E* ALPRAZOLAM 1 MG TABLET Take 1 mg by mouth twice jaleel* ATORVASTATIN 20 MG TABLET Take 1 tablet by mouth daily * CALCIUM CARBONATE 600 MG (1,5* Take 1 tablet by mouth once d* CARISOPRODOL 350 MG TABLET Take 1 tablet by mouth three * ERGOCALCIFEROL (VITAMIN D2) 5* Take 1 capsule by mouth once * NICOTINE 10 MG INHALATION CAR* Inhale 2 Puffs as instructed * OMEGA-3 FATTY ACIDS 1,000 MG * Take 2 capsules by mouth once* ONDANSETRON 4 MG DISINTEGRATI* Take 1 tablet by mouth every * POTASSIUM CHLORIDE ER 8 MEQ C* take 1 capsule by mouth once * PROMETHAZINE 25 MG TABLET Take 1 tablet by mouth every * QUETIAPINE 100 MG TABLET Take 2 tablets by mouth daily* RIFAMPIN 150 MG CAPSULE Take 300 mg by mouth once nicki* RIZATRIPTAN 10 MG TABLET Take 1 tablet by mouth at ons* ROPINIROLE 1 MG TABLET Take 1 tablet by mouth daily * TRETINOIN 0.025 % TOPICAL GEL Apply 1 application to affect* Progress Notes: Jayleen Gurrola PT 03/26/2018 6:34 PM Signed Episode Visit Count: 19 Therapist That Will Oversee The Plan Of Care: Jayleen Gurrola PT Start of Care Date: 12/18/17 Onset Date: 10/12/17 Plan of Care Certification Date: 02/12/18 Patient Identified by Name and Date of : Yes REHABILITATION AND SPORTS THERAPY PHYSICAL THERAPY TREATMENT NOTE ASSESSMENT: David Berg demonstrated improvements in gait on level with near normal gait today! Decrease edema in left ankle. Patient still with difficulty with pain anterior ankle and toes. Patient able to walk forward and lateral side stepping over 6 hurdles today with normal foot placement. The patient will continue to benefit from continued skilled physical therapy for progression of exercises and step ups onto uneven surface. PLAN FOR NEXT VISIT: try Great toe mobs (flexion/extension) to assist with great toe pain. Possibly add step ups onto uneven surface next visit. PLEASE have patient schedule a visit with Jayleen Gurrola in April as need to do a POC update. SUBJECTIVE: Patient reports she likes the compression stockings and feels they are helping with swelling. She reports the ankle hurts today. Pain Score: 5/10 Pain Location: Foot - Left (top of ankle) Description: Aching;Throbbing Frequency: Continuous Post Treatment Pain Score: 4/10 Pain Location: Foot - Left Post Treatment Pain Description: Aching OBJECTIVE MEASURES WITH LEVEL OF FUNCTION: Patient able to walk forward and lateral side stepping over 6 hurdles today with normal foot placement. TREATMENT: Therapeutic Exercise: 4: TOGA toe exercise with toe abduction, toe adduction and great toe extension with 2-4 press into floor and 2nd-4th toe extension and 1st and fifth on floor x 10 each 5: Left ankle ABC'sx 1. 6: Seated BAPS left ball 3 A/P, lateral, cw and ccw x 12 each. 7: Strap assist left gastroc stretch 3x30 seconds. 8: Left toe curls x 1 minute 10: [place] Rep band resistive df,pf,inv and evr x2x15. Skilled Intervention: Patient was educated in proper exercise technique and purpose for exercises. Skilled judgment was provided in selection of appropriate interventions. Correct performance of therapeutic exercises was facilitated with verbal and visual cuing. Manual Therapy: 2: IASTM with patient prone lying at end of treatment left gastroc, achilles arch and base of toes x 10 minutes. 3: Prone L ankle anterior mobs to help with PF, Grade II, 1x10 and 1x5 4: Prone L ankle Posterior mobs to help with DF, Grade II, 1x10 and 1x5 Skilled Intervention: Manual skills to improve joint mobility, ROM, and decrease pain. Utilized anatomy knowledge of the therapist, and assessment of patient's response to intervention. Gait Trainin: Gait on level near normal today. Used mirror for patient for visual feedback and she was pleased to see how she was walking. 2: Forward and lateral walking over 6, 6 hurdles back and forth x 2 with CGA and normal stepping with this activity. Skilled Intervention: Gait belt utilized during session for safety. Provided verbal instruction for home program to facilitate proper performance and compliance. Gait belt used for gait over hurdles. Billing: [facility]: Therapeutic Exercise ([id number]): 1:1 time: 22 minutes (1 unit: 8-22 mins) Manual Therapy ([id number]): 1:1 time: 12 minutes (1 unit: 8-22 mins) Gait Training ([id number]): 1:1 time: 10 minutes (1 unit: 8-22 mins) Total time: 44 minutes Cat Villalobos, PTAlfred Gurrola PT Previous Version Follow-up and Disposition History Recorded PROGRESS Observed: 03/24/2018 Status: COMPLETED Source: [place] 3:55 PM [facility] REPOSITORY HNO ID: [id number] Author: Jayleen (Pt) [employer] Service: (none) Author Type: Physical Therapist Type: Progress Notes Filed: 03/25/2018 2:06 PM Note Text: Episode Visit Count: 18 Therapist That Will Oversee The Plan Of Care: Jayleen Gurrola PT Start of Care Date: 12/18/17 Onset Date: 10/12/17 Plan of Care Certification Date: 02/12/18 Patient Identified by Name and Date of : Yes REHABILITATION AND SPORTS THERAPY PHYSICAL THERAPY TREATMENT NOTE ASSESSMENT: David Berg demonstrated improvements in edema reduction left ankle at start of treatment. She is liking how compression stocking feel on her ankle and notes some soreness in calf muscle. Increase left great toe pain with BAPS today for unknown reason and pain persisted at end of treatment with weight bearing. The patient will continue to benefit from continued skilled physical therapy for progression of strength, AROM and pain control. PLAN FOR NEXT VISIT: Monitor delayed response to treatment as patient had increase great toe pain today. Consider trying Great toe mobs. PLEASE have patient schedule a visit with Jayleen Gurrola; will need to do a POC update in April SUBJECTIVE: Patient reports she has been wearing compression stocking during the day and off at night since last seen. Patient reports a slight reduction in swelling around left lateral ankle. Pain Score: 5/10 Pain Location: Foot - Left Description: Aching;Throbbing Frequency: Continuous Post Treatment Pain Score: 3/10 (left great toe pain 7/10 aching and throbbing) Pain Location: Foot - Left Post Treatment Pain Description: Aching OBJECTIVE MEASURES WITH LEVEL OF FUNCTION: Patient ambulates with decrease push off on left during swing through of gait. TREATMENT: Therapeutic Exercise: 4: TOGA toe exercise with toe abduction, toe adduction and great toe extension with 2-4 press into floor and 2nd-4th toe extension and 1st and fifth on floor x 10 each 5: Left ankle ABC'sx 1. 6: Seated BAPS left ball 3 A/P, lateral, cw and ccw x 10 each. 7: Strap assist left 2x30 seconds. 8: Left toe curls x 1 minute 10: Austin Rep band resistive df,pf,inv and evr x2x10. Skilled Intervention: Patient was educated in proper exercise technique and purpose for exercises. Skilled judgment was provided in selection of appropriate interventions. Correct performance of therapeutic exercises was facilitated with verbal cuing. Manual Therapy: 2: IASTM with patient prone lying at start of treatment left gastroc, achilles arch and base of toes x 13 minutes. 3: Prone L ankle anterior mobs to help with PF, Grade II, 1x10 and 1x5 4: Prone L ankle Posterior mobs to help with DF, Grade II, 1x10 and 1x5 Skilled Intervention: Manual skills to improve joint mobility, ROM, and decrease pain. Utilized anatomy knowledge of the therapist, and assessment of patient's response to intervention. Billing: [facility]: Therapeutic Exercise ([id number]): 1:1 time: 30 minutes (2 units: 23-37 mins) Manual Therapy ([id number]): 1:1 time: 15 minutes (1 unit: 8-22 mins) Total time: 45 minutes GREGORY Felix PT CNTHERAPY Observed: 03/24/2018 Status: COMPLETED Source: [place] 2:45 PM [facility] REPOSITORY OT/PT/Speech Visit (PTWS) DAVID BERG ([id number]) 1955 F Date Time Provider Department 03/24/18 2:45 PM CAT VILLALOBOS (ETHANOL OPERATOR) PTWS Date Time Provider Department Center 03/24/2018 2:45 PM [id number], NANCY (ETHANOL OPERATOR) PTWS [facility] Reason for Visit: Physical Therapy [503] Primary Visit Diagnosis:Acute left ankle pain [M25.572] Other Visit Diagnosis:Pain in toe of left foot [M79.675] Allergies As of Date: 03/24/2018 Noted Allergy Reaction CODEINE 10/26/2004 2 - Rash 9 - Itching DARVOCET A500 (PROPOXYPHENE N-JESSICA*10/26/2004 2 - Rash 9 - Itching DARVON (PROPOXYPHENE HCL) 10/26/2004 2 - Rash 9 - Itching DAYPRO (OXAPROZIN) 01/02/2005 2 - Rash EFFEXOR (VENLAFAXINE HCL) 01/02/2005 5 - Intolerance Comments: decreased libido FLEXERIL (CYCLOBENZAPRINE HCL) 01/02/2005 8 - GI Upset 11 - Vomiting GABAPENTIN 12/15/2015 1 - Mental Status Change Comments: hangover NORCO (HYDROCODONE-ACETAMINOPHEN) 01/02/2005 8 - GI Upset 9 - Itching Comments: nausea, itching OXYBUTYNIN 11/20/2011 14 - Other: See Comments Comments: Urinary retention PINE TREES (TREES) 12/07/2008 Comments: rash TALWIN (PENTAZOCINE LACTATE) 01/02/2005 9 - Itching Comments: GI upset ULTRAM (TRAMADOL HCL) 01/02/2005 8 - GI Upset VIOXX (ROFECOXIB) 01/02/2005 2 - Rash Date Reviewed: 01/15/2018 Reviewed by: Eloisa Maldonado - Fully Assessed Prescriptions as of 03/24/2018 Sig: ABATACEPT (WITH MALTOSE) 250 * Inject 750 mg intravenously q* ALENDRONATE 70 MG TABLET take 1 tablet by mouth ONCE E* ALPRAZOLAM 1 MG TABLET Take 1 mg by mouth twice jaleel* ATORVASTATIN 20 MG TABLET Take 1 tablet by mouth daily * CALCIUM CARBONATE 600 MG (1,5* Take 1 tablet by mouth once d* CARISOPRODOL 350 MG TABLET Take 1 tablet by mouth three * ERGOCALCIFEROL (VITAMIN D2) 5* Take 1 capsule by mouth once * NICOTINE 10 MG INHALATION CAR* Inhale 2 Puffs as instructed * OMEGA-3 FATTY ACIDS 1,000 MG * Take 2 capsules by mouth once* ONDANSETRON 4 MG DISINTEGRATI* Take 1 tablet by mouth every * POTASSIUM CHLORIDE ER 8 MEQ C* take 1 capsule by mouth once * PROMETHAZINE 25 MG TABLET Take 1 tablet by mouth every * QUETIAPINE 100 MG TABLET Take 2 tablets by mouth daily* RIFAMPIN 150 MG CAPSULE Take 300 mg by mouth once nicki* RIZATRIPTAN 10 MG TABLET Take 1 tablet by mouth at ons* ROPINIROLE 1 MG TABLET Take 1 tablet by mouth daily * TRETINOIN 0.025 % TOPICAL GEL Apply 1 application to affect* Progress Notes: Jayleen Gurrola, KISHAN 03/25/2018 2:06 PM Signed Episode Visit Count: 18 Therapist That Will Oversee The Plan Of Care: Jayleen Gurrola PT Start of Care Date: 12/18/17 Onset Date: 10/12/17 Plan of Care Certification Date: 02/12/18 Patient Identified by Name and Date of : Yes REHABILITATION AND SPORTS THERAPY PHYSICAL THERAPY TREATMENT NOTE ASSESSMENT: David Berg demonstrated improvements in edema reduction left ankle at start of treatment. She is liking how compression stocking feel on her ankle and notes some soreness in calf muscle. Increase left great toe pain with BAPS today for unknown reason and pain persisted at end of treatment with weight bearing. The patient will continue to benefit from continued skilled physical therapy for progression of strength, AROM and pain control. PLAN FOR NEXT VISIT: Monitor delayed response to treatment as patient had increase great toe pain today. Consider trying Great toe mobs. PLEASE have patient schedule a visit with Jayleen Gurrola; will need to do a POC update in April SUBJECTIVE: Patient reports she has been wearing compression stocking during the day and off at night since last seen. Patient reports a slight reduction in swelling around left lateral ankle. Pain Score: 5/10 Pain Location: Foot - Left Description: Aching;Throbbing Frequency: Continuous Post Treatment Pain Score: 3/10 (left great toe pain 7/10 aching and throbbing) Pain Location: Foot - Left Post Treatment Pain Description: Aching OBJECTIVE MEASURES WITH LEVEL OF FUNCTION: Patient ambulates with decrease push off on left during swing through of gait. TREATMENT: Therapeutic Exercise: 4: TOGA toe exercise with toe abduction, toe adduction and great toe extension with 2-4 press into floor and 2nd-4th toe extension and 1st and fifth on floor x 10 each 5: Left ankle ABC'sx 1. 6: Seated BAPS left ball 3 A/P, lateral, cw and ccw x 10 each. 7: Strap assist left 2x30 seconds. 8: Left toe curls x 1 minute 10: Austin Rep band resistive df,pf,inv and evr x2x10. Skilled Intervention: Patient was educated in proper exercise technique and purpose for exercises. Skilled judgment was provided in selection of appropriate interventions. Correct performance of therapeutic exercises was facilitated with verbal cuing. Manual Therapy: 2: IASTM with patient prone lying at start of treatment left gastroc, achilles arch and base of toes x 13 minutes. 3: Prone L ankle anterior mobs to help with PF, Grade II, 1x10 and 1x5 4: Prone L ankle Posterior mobs to help with DF, Grade II, 1x10 and 1x5 Skilled Intervention: Manual skills to improve joint mobility, ROM, and decrease pain. Utilized anatomy knowledge of the therapist, and assessment of patient's response to intervention. Billing: [facility]: Therapeutic Exercise ([id number]): 1:1 time: 30 minutes (2 units: 23-37 mins) Manual Therapy ([id number]): 1:1 time: 15 minutes (1 unit: 8-22 mins) Total time: 45 minutes GREGORY Felix PT Previous Version Follow-up and Disposition History Recorded PROGRESS Observed: 03/19/2018 Status: COMPLETED Source: [place] 6:32 PM [facility] REPOSITORY HNO ID: [id number] Author: Jayleen Gurrola Service: (none) Author Type: Physical Therapist Type: Progress Notes Filed: 03/21/2018 11:37 AM Note Text: Episode Visit Count: 17 Therapist That Will Oversee The Plan Of Care: Jayleen Gurrola PT Start of Care Date: 12/18/17 Onset Date: 10/12/17 Plan of Care Certification Date: 02/12/18 Patient Identified by Name and Date of : Yes REHABILITATION AND SPORTS THERAPY PHYSICAL THERAPY TREATMENT NOTE ASSESSMENT: David Berg demonstrated improvements in slight reduction in left foot pain after stopping the use of AFO. Patient with antalgic gait and has decrease push off during swing through of gait. The patient will continue to benefit from continued skilled physical therapy for progression of AROM, strengthening and pain control. PLAN FOR NEXT VISIT: Monitor response to treatment . Ask how compression stockings are feeling. PLEASE have patient schedule a visit with me will need to do a POC update in April with her as I think she is going out of town for the holidays. SUBJECTIVE: Patient reports she stopped wearing the brace and the foot on top has felt better. She reports she called her doctor's office to let them know she stopped wearing the brace. She reports she will be picking up her compression stocking today. Pain Score: 5/10 Pain Location: Foot - Left Description: Aching (tender and shock type pain left lateral malleoli) Frequency: Continuous Post Treatment Pain Score: 4/10 Pain Location: Foot - Left Post Treatment Pain Description: Aching OBJECTIVE MEASURES WITH LEVEL OF FUNCTION: Patient with antalgic gait and has decrease push off during swing through of gait. TREATMENT: Therapeutic Exercise: 4: TOGA toe exercise with toe abduction, toe adduction and great toe extension with 2-4 press into floor and 2nd-4th toe extension and 1st and fifth on floor x 10 each 5: Left ankle ABC'sx 1. 6: Seated BAPS left ball 3 A/P, lateral, cw and ccw x 10 each. 7: Strap assist left 2x30 seconds. 10: Austin Rep band resistive df,pf,inv and evr x2x10. 11: Provided patient with soft velcro shoes for home use. Skilled Intervention: Patient was educated in proper exercise technique and purpose for exercises. Skilled judgment was provided in selection of appropriate interventions. Correct performance of therapeutic exercises was facilitated with verbal cuing. Manual Therapy: 1: left LE in elevation over large wedge bolster retrograde massage to L foot, ankle, and calf x 8 minutes with push to patient tolerance. Skilled Intervention: Manual skills to improve joint mobility, ROM, and decrease pain. Utilized anatomy knowledge of the therapist, and assessment of patient's response to intervention. Billing: [facility]: Therapeutic Exercise ([id number]): 1:1 time: 35 minutes (2 units: 23-37 mins) Manual Therapy ([id number]): 1:1 time: 8 minutes (1 unit: 8-22 mins) Total time: 43 minutes Cat Villalobos PTAlfred Gurrola PT CNTHERAPY Observed: 03/19/2018 Status: COMPLETED Source: [place] 4:30 PM [facility] REPOSITORY OT/PT/Speech Visit (PTWS) DAVID BERG ([id number]) 1955 F Date Time Provider Department 03/19/18 4:30 PM CAT VILLALOBOS (ETHANOL OPERATOR) PTWS Date Time Provider Department Center 03/19/2018 4:30 PM [id number], NANCY (ETHANOL OPERATOR) PTWS [facility] Reason for Visit: Physical Therapy [503] Primary Visit Diagnosis:Acute left ankle pain [M25.572] Other Visit Diagnosis:Pain in toe of left foot [M79.675] Allergies As of Date: 03/19/2018 Noted Allergy Reaction CODEINE 10/26/2004 2 - Rash 9 - Itching DARVOCET A500 (PROPOXYPHENE N-JESSICA*10/26/2004 2 - Rash 9 - Itching DARVON (PROPOXYPHENE HCL) 10/26/2004 2 - Rash 9 - Itching DAYPRO (OXAPROZIN) 01/02/2005 2 - Rash EFFEXOR (VENLAFAXINE HCL) 01/02/2005 5 - Intolerance Comments: decreased libido FLEXERIL (CYCLOBENZAPRINE HCL) 01/02/2005 8 - GI Upset 11 - Vomiting GABAPENTIN 12/15/2015 1 - Mental Status Change Comments: hangover NORCO (HYDROCODONE-ACETAMINOPHEN) 01/02/2005 8 - GI Upset 9 - Itching Comments: nausea, itching OXYBUTYNIN 11/20/2011 14 - Other: See Comments Comments: Urinary retention PINE TREES (TREES) 12/07/2008 Comments: rash TALWIN (PENTAZOCINE LACTATE) 01/02/2005 9 - Itching Comments: GI upset ULTRAM (TRAMADOL HCL) 01/02/2005 8 - GI Upset VIOXX (ROFECOXIB) 01/02/2005 2 - Rash Date Reviewed: 01/15/2018 Reviewed by: Eloisa Maldonado - Fully Assessed Prescriptions as of 03/19/2018 Sig: CARISOPRODOL 350 MG TABLET Take 1 tablet by mouth three * POTASSIUM CHLORIDE ER 8 MEQ C* take 1 capsule by mouth once * TRETINOIN 0.025 % TOPICAL GEL Apply 1 application to affect* ATORVASTATIN 20 MG TABLET Take 1 tablet by mouth daily * ERGOCALCIFEROL (VITAMIN D2) 5* Take 1 capsule by mouth once * ABATACEPT (WITH MALTOSE) 250 * Inject 750 mg intravenously q* RIFAMPIN 150 MG CAPSULE Take 300 mg by mouth once nicki* CALCIUM CARBONATE 600 MG (1,5* Take 1 tablet by mouth once d* ROPINIROLE 1 MG TABLET Take 1 tablet by mouth daily * NICOTINE 10 MG INHALATION CAR* Inhale 2 Puffs as instructed * PROMETHAZINE 25 MG TABLET Take 1 tablet by mouth every * ONDANSETRON 4 MG DISINTEGRATI* Take 1 tablet by mouth every * ALPRAZOLAM 1 MG TABLET Take 1 mg by mouth twice jaleel* QUETIAPINE 100 MG TABLET Take 2 tablets by mouth daily* RIZATRIPTAN 10 MG TABLET Take 1 tablet by mouth at ons* ALENDRONATE 70 MG TABLET take 1 tablet by mouth ONCE E* OMEGA-3 FATTY ACIDS 1,000 MG * Take 2 capsules by mouth once* Progress Notes: Jayleen Gurrola PT 03/21/2018 11:37 AM Signed Episode Visit Count: 17 Therapist That Will Oversee The Plan Of Care: Jayleen Gurrola PT Start of Care Date: 12/18/17 Onset Date: 10/12/17 Plan of Care Certification Date: 02/12/18 Patient Identified by Name and Date of : Yes REHABILITATION AND SPORTS THERAPY PHYSICAL THERAPY TREATMENT NOTE ASSESSMENT: David Berg demonstrated improvements in slight reduction in left foot pain after stopping the use of AFO. Patient with antalgic gait and has decrease push off during swing through of gait. The patient will continue to benefit from continued skilled physical therapy for progression of AROM, strengthening and pain control. PLAN FOR NEXT VISIT: Monitor response to treatment . Ask how compression stockings are feeling. PLEASE have patient schedule a visit with me will need to do a POC update in April with her as I think she is going out of town for the holidays. SUBJECTIVE: Patient reports she stopped wearing the brace and the foot on top has felt better. She reports she called her doctor's office to let them know she stopped wearing the brace. She reports she will be picking up her compression stocking today. Pain Score: 5/10 Pain Location: Foot - Left Description: Aching (tender and shock type pain left lateral malleoli) Frequency: Continuous Post Treatment Pain Score: 4/10 Pain Location: Foot - Left Post Treatment Pain Description: Aching OBJECTIVE MEASURES WITH LEVEL OF FUNCTION: Patient with antalgic gait and has decrease push off during swing through of gait. TREATMENT: Therapeutic Exercise: 4: TOGA toe exercise with toe abduction, toe adduction and great toe extension with 2-4 press into floor and 2nd-4th toe extension and 1st and fifth on floor x 10 each 5: Left ankle ABC'sx 1. 6: Seated BAPS left ball 3 A/P, lateral, cw and ccw x 10 each. 7: Strap assist left 2x30 seconds. 10: Austin Rep band resistive df,pf,inv and evr x2x10. 11: Provided patient with soft velcro shoes for home use. Skilled Intervention: Patient was educated in proper exercise technique and purpose for exercises. Skilled judgment was provided in selection of appropriate interventions. Correct performance of therapeutic exercises was facilitated with verbal cuing. Manual Therapy: 1: left LE in elevation over large wedge bolster retrograde massage to L foot, ankle, and calf x 8 minutes with push to patient tolerance. Skilled Intervention: Manual skills to improve joint mobility, ROM, and decrease pain. Utilized anatomy knowledge of the therapist, and assessment of patient's response to intervention. Billing: [facility]: Therapeutic Exercise ([id number]): 1:1 time: 35 minutes (2 units: 23-37 mins) Manual Therapy ([id number]): 1:1 time: 8 minutes (1 unit: 8-22 mins) Total time: 43 minutes GREGORY Felix PT Previous Version Follow-up and Disposition History Recorded PROGRESS Observed: 03/12/2018 Status: COMPLETED Source: [place] 3:01 PM [facility] [place] REPOSITORY HNO ID: [id number] Author: Jayleen Gurrola Service: (none) Author Type: Physical Therapist Type: Progress Notes Filed: 03/14/2018 11:32 AM Note Text: Episode Visit Count: 16 Therapist That Will Oversee The Plan Of Care: Jayleen Gurrola PT Start of Care Date: 12/18/17 Onset Date: 10/12/17 Plan of Care Certification Date: 02/12/18 Patient Identified by Name and Date of : Yes REHABILITATION AND SPORTS THERAPY PHYSICAL THERAPY PROGRESS REPORT PLAN OF CARE UPDATE: Assessment: David Berg exhibits difficulty with L foot DF/PF, strength, and walking . She continues to be limited with walking and physical activities. She is progressing slower than expected towards her therapy goals as demonstrated by: pain levels and documented objective information regarding strength, range of motion and overall function. She will benefit from continued skilled therapy requiring ther ex, manual, and neuro re-education in order to improve L ankle ROM, L ankle strength, and gait. Functional gains: None at this time Goals updated on 03/12/2018. [place] in home exercise program.--MET for current HEP Patient will decrease pain rating by 2 points to meet minimal clinical important difference for numeric pain rating scale. (Sitting 4/10 and Weightbearing 6/10)--Progressing Patient will increase active ROM of L ankle to equal R ankle to allow pt to to achieve neutral postural alignment, improved performance of ADLs and to normalize gait mechanics / gait pattern.--Progressing Patient will increase strength of L ankle to 5/5 to allow for return to prior functional status, normalized gait mechanics and perform ADLs.--Progressing Patient will increase flexibility of calf to WNL to improve ability to maintain proper posture, restore normal mechanics and decrease pain.--Progressing Perform walking without pain.--Progressing Demonstrate improvement on functional score: Patient will increase his/her score on the Lower Extremity Functional Scale by at least 9 points to indicate a Minimal Clinical Important Difference. (Goal: )--Progressing Normal gait.--Progressing Reciprocal stair negotiation.--Not MET Planned Interventions, Frequency, and Duration: 2x/week, 4 weeks Total Number of Visits Planned: 24 Patient to be seen for Therapeutic exercise;Neuromuscular re-education;Manual therapy;Self-mcfp management;Gait Training;Patient/Family/Caregiver Education;General Conditioning;Functional training PLAN FOR NEXT VISIT: Ask how compression socks are working. Post-op shoe. Manual therapy followed by exercise. SUBJECTIVE: Patient doesn't like wearing her AFO brace. She can only handle for 3 hours. Has been struggling with wearing any longer. (Recommended she reach out to Dr. Mckinney to get recommendations for sx she is having with the new AFO brace). She can only put the brace in her winter boot. Patient now has tenderness/pain on the top of her L foot. Patient finds this new pain is limiting her from bending her toes. Pain Score: 7/10 Pain Location: Foot - Left (top of foot) Description: Throbbing Frequency: Continuous OBJECTIVE MEASURES WITH LEVEL OF FUNCTION: LE AROM L Ankle Dorsiflexion: 8 Degrees L Ankle Plantar Flexion: 30 Degrees L Ankle Inversion: 20 L Ankle Eversion: 12 LE Strength L Ankle Dorsiflexion (L4): 3-/5 L Ankle Plantar Flexion: 3-/5 (pain shooting from bottom of foot to top.) L Ankle Inversion: 3-/5 (pain on top of foot by big toe) L Ankle Eversion: 3-/5 Gait Gait Observation: Antalgic gait on L foot with decreased toe off wearing AFO and winter boot TREATMENT: Manual Therapy: 1: left LE in elevation over large wedge bolster retrograde massage to L foot, ankle, and calf x 15 minutes with push to patient tolerance (improved coloring in patients LE) 5: Patient instructed how to don her knee high compression sock that is to arrive. She is getting 3 pairs. She was shown to turn inside out and pull toes in. Reviewed with patient not to wear compression to bed due to concern of constriction. Patient verbalized understanding. 6: Suggested considering a post-op shoe to accomadate AFO. Showed a picture. Will fax today's treatment notes and ask Dr. Mckinney for a script. Skilled Intervention: Manual skills to improve joint mobility, ROM, and decrease pain. Utilized anatomy knowledge of the therapist, and assessment of patient's response to intervention. Billing: [facility]: Manual Therapy ([id number]): 1:1 time: 40 minutes (3 units: 38- 52 mins) Total time: 40 minutes Jayleen Gurrola PT CNTHERAPY Observed: 03/12/2018 Status: COMPLETED Source: [place] 2:45 PM [facility] REPOSITORY OT/PT/Speech Visit (PTWS) DAVID BERG ([id number]) 1955 Date Time Provider Department 03/12/18 2:45 PM JAYLEEN GURROLA (PT) PTWS Date Time Provider Department Center 03/12/2018 2:45 PM [id number], DIANA (PT)PTWS [facility] Reason for Visit: PT Progress Note [[id number]] Primary Visit Diagnosis:Acute left ankle pain [M25.572] Other Visit Diagnosis:Pain in toe of left foot [M79.675] Allergies As of Date: 03/12/2018 Noted Allergy Reaction CODEINE 10/26/2004 2 - Rash 9 - Itching DARVOCET A500 (PROPOXYPHENE N-JESSICA*10/26/2004 2 - Rash 9 - Itching DARVON (PROPOXYPHENE HCL) 10/26/2004 2 - Rash 9 - Itching DAYPRO (OXAPROZIN) 01/02/2005 2 - Rash EFFEXOR (VENLAFAXINE HCL) 01/02/2005 5 - Intolerance Comments: decreased libido FLEXERIL (CYCLOBENZAPRINE HCL) 01/02/2005 8 - GI Upset 11 - Vomiting GABAPENTIN 12/15/2015 1 - Mental Status Change Comments: hangover NORCO (HYDROCODONE-ACETAMINOPHEN) 01/02/2005 8 - GI Upset 9 - Itching Comments: nausea, itching OXYBUTYNIN 11/20/2011 14 - Other: See Comments Comments: Urinary retention PINE TREES (TREES) 12/07/2008 Comments: rash TALWIN (PENTAZOCINE LACTATE) 01/02/2005 9 - Itching Comments: GI upset ULTRAM (TRAMADOL HCL) 01/02/2005 8 - GI Upset VIOXX (ROFECOXIB) 01/02/2005 2 - Rash Date Reviewed: 01/15/2018 Reviewed by: Eloisa Maldonado - Fully Assessed Prescriptions as of 03/12/2018 Sig: CARISOPRODOL 350 MG TABLET Take 1 tablet by mouth three * POTASSIUM CHLORIDE ER 8 MEQ C* take 1 capsule by mouth once * TRETINOIN 0.025 % TOPICAL GEL Apply 1 application to affect* ATORVASTATIN 20 MG TABLET Take 1 tablet by mouth daily * ERGOCALCIFEROL (VITAMIN D2) 5* Take 1 capsule by mouth once * ABATACEPT (WITH MALTOSE) 250 * Inject 750 mg intravenously q* RIFAMPIN 150 MG CAPSULE Take 300 mg by mouth once nicki* CALCIUM CARBONATE 600 MG (1,5* Take 1 tablet by mouth once d* ROPINIROLE 1 MG TABLET Take 1 tablet by mouth daily * NICOTINE 10 MG INHALATION CAR* Inhale 2 Puffs as instructed * PROMETHAZINE 25 MG TABLET Take 1 tablet by mouth every * ONDANSETRON 4 MG DISINTEGRATI* Take 1 tablet by mouth every * ALPRAZOLAM 1 MG TABLET Take 1 mg by mouth twice jaleel* QUETIAPINE 100 MG TABLET Take 2 tablets by mouth daily* RIZATRIPTAN 10 MG TABLET Take 1 tablet by mouth at ons* ALENDRONATE 70 MG TABLET take 1 tablet by mouth ONCE E* OMEGA-3 FATTY ACIDS 1,000 MG * Take 2 capsules by mouth once* Progress Notes: Jayleen Gurrola PT 03/14/2018 11:32 AM Signed Episode Visit Count: 16 Therapist That Will Oversee The Plan Of Care: Jayleen Gurrola PT Start of Care Date: 12/18/17 Onset Date: 10/12/17 Plan of Care Certification Date: 02/12/18 Patient Identified by Name and Date of : Yes REHABILITATION AND SPORTS THERAPY PHYSICAL THERAPY PROGRESS REPORT PLAN OF CARE UPDATE: Assessment: David Berg exhibits difficulty with L foot DF/PF, strength, and walking . She continues to be limited with walking and physical activities. She is progressing slower than expected towards her therapy goals as demonstrated by: pain levels and documented objective information regarding strength, range of motion and overall function. She will benefit from continued skilled therapy requiring ther ex, manual, and neuro re-education in order to improve L ankle ROM, L ankle strength, and gait. Functional gains: None at this time Goals updated on 03/12/2018. [place] in home exercise program.--MET for current HEP Patient will decrease pain rating by 2 points to meet minimal clinical important difference for numeric pain rating scale. (Sitting 4/10 and Weightbearing 6/10)--Progressing Patient will increase active ROM of L ankle to equal R ankle to allow pt to to achieve neutral postural alignment, improved performance of ADLs and to normalize gait mechanics / gait pattern.--Progressing Patient will increase strength of L ankle to 5/5 to allow for return to prior functional status, normalized gait mechanics and perform ADLs.--Progressing Patient will increase flexibility of calf to WNL to improve ability to maintain proper posture, restore normal mechanics and decrease pain.--Progressing Perform walking without pain.--Progressing Demonstrate improvement on functional score: Patient will increase his/her score on the Lower Extremity Functional Scale by at least 9 points to indicate a Minimal Clinical Important Difference. (Goal: )--Progressing Normal gait.--Progressing Reciprocal stair negotiation.--Not MET Planned Interventions, Frequency, and Duration: 2x/week, 4 weeks Total Number of Visits Planned: 24 Patient to be seen for Therapeutic exercise;Neuromuscular re-education;Manual therapy;Self-mcfp management;Gait Training;Patient/Family/Caregiver Education;General Conditioning;Functional training PLAN FOR NEXT VISIT: Ask how compression socks are working. Post-op shoe. Manual therapy followed by exercise. SUBJECTIVE: Patient doesn't like wearing her AFO brace. She can only handle for 3 hours. Has been struggling with wearing any longer. (Recommended she reach out to Dr. Mckinney to get recommendations for sx she is having with the new AFO brace). She can only put the brace in her winter boot. Patient now has tenderness/pain on the top of her L foot. Patient finds this new pain is limiting her from bending her toes. Pain Score: 7/10 Pain Location: Foot - Left (top of foot) Description: Throbbing Frequency: Continuous OBJECTIVE MEASURES WITH LEVEL OF FUNCTION: LE AROM L Ankle Dorsiflexion: 8 Degrees L Ankle Plantar Flexion: 30 Degrees L Ankle Inversion: 20 L Ankle Eversion: 12 LE Strength L Ankle Dorsiflexion (L4): 3-/5 L Ankle Plantar Flexion: 3-/5 (pain shooting from bottom of foot to top.) L Ankle Inversion: 3-/5 (pain on top of foot by big toe) L Ankle Eversion: 3-/5 Gait Gait Observation: Antalgic gait on L foot with decreased toe off wearing AFO and winter boot TREATMENT: Manual Therapy: 1: left LE in elevation over large wedge bolster retrograde massage to L foot, ankle, and calf x 15 minutes with push to patient tolerance (improved coloring in patients LE) 5: Patient instructed how to don her knee high compression sock that is to arrive. She is getting 3 pairs. She was shown to turn inside out and pull toes in. Reviewed with patient not to wear compression to bed due to concern of constriction. Patient verbalized understanding. 6: Suggested considering a post-op shoe to accomadate AFO. Showed a picture. Will fax today's treatment notes and ask Dr. Mckinney for a script. Skilled Intervention: Manual skills to improve joint mobility, ROM, and decrease pain. Utilized anatomy knowledge of the therapist, and assessment of patient's response to intervention. Billing: [facility]: Manual Therapy ([id number]): 1:1 time: 40 minutes (3 units: 38- 52 mins) Total time: 40 minutes Jayleen Gurrola PT PROGRESS Observed: 03/10/2018 Status: COMPLETED Source: [place] 5:00 PM [facility] REPOSITORY HNO ID: [id number] Author: Jayleen Gurrola Service: (none) Author Type: Physical Therapist Type: Progress Notes Filed: 03/10/2018 6:28 PM Note Text: Episode Visit Count: 15 Therapist That Will Oversee The Plan Of Care: Jayleen Gurrola PT Start of Care Date: 12/18/17 Onset Date: 10/12/17 Plan of Care Certification Date: 02/12/18 Patient Identified by Name and Date of : Yes REHABILITATION AND SPORTS THERAPY PHYSICAL THERAPY TREATMENT NOTE ASSESSMENT: David Berg demonstrated difficulty with gait and increase swelling since last therapy. Decreased intensity of exercises today due to increase pain. Patient discouraged with the set back today. No change in pain with treatment today. The patient will continue to benefit from continued skilled physical therapy for Manual therapy and ankle and toe strengthening. PLAN FOR NEXT VISIT: Continue with exercises per patient tolerance. SUBJECTIVE: Patient reports increase pain and swelling after last visit. She reports wearing her new AFO as directed. She reports she walks flat footed with AFO but does not like it that she can't move her ankle as well. She reports the compression sock is not in yet. Pain Score: 7/10 Pain Location: Foot - Left;Ankle - Left Description: Aching;Throbbing Frequency: Continuous Post Treatment Pain Score: No Change OBJECTIVE MEASURES WITH LEVEL OF FUNCTION: Increase antalgic gait with decrease weight bearing left lower extremity today. TREATMENT: Therapeutic Exercise: 4: TOGA toe exercise with toe abduction, toe adduction and great toe extension with 2-4 press into floor and 2nd-4th toe extension and 1st and fifth on floor x 10 each 5: Left ankle ABC'sx 1. 6: Seated BAPS left ball 3 7: Strap assist left 2x30 seconds. 8: Left toe curls x 1 minute 9: Weight bearing left gastroc and soleus stretch 2x30 seconds. 10: [place] Rep band resistive df,pf,inv and evr x2x10. Skilled Intervention: Patient was educated in proper exercise technique and purpose for exercises. Skilled judgment was provided in selection of appropriate interventions. Correct performance of therapeutic exercises was facilitated with verbal cuing. Manual Therapy: 2: IASTM with patient prone lying at start of treatment left gastroc, achilles arch and base of toes x 13 minutes. 3: Prone L ankle anterior mobs to help with PF, Grade II, x10 4: Prone L ankle Posterior mobs to help with DF, Grade II, x10 Skilled Intervention: Manual skills to improve joint mobility, ROM, and decrease pain. Utilized anatomy knowledge of the therapist, and assessment of patient's response to intervention. Billing: [facility]: Therapeutic Exercise ([id number]): 1:1 time: 30 minutes (2 units: 23-37 mins) Manual Therapy ([id number]): 1:1 time: 15 minutes (1 units: 8-22 mins) Total time: 45 minutes Cat Villalobos PTAlfred Gurrola PT CNTHERAPY Observed: 03/10/2018 Status: COMPLETED Source: [place] 2:45 PM [facility] REPOSITORY OT/PT/Speech Visit (PTWS) DAVID BERG ([id number]) 1955 F Date Time Provider Department 03/10/18 2:45 PM CAT VILLALOBOS (ETHANOL OPERATOR) PTWS Date Time Provider Department Center 03/10/2018 2:45 PM [id number], NANCY (ETHANOL OPERATOR) PTWS [facility] Reason for Visit: Physical Therapy [503] Primary Visit Diagnosis:Acute left ankle pain [M25.572] Other Visit Diagnosis:Pain in toe of left foot [M79.675] Allergies As of Date: 03/10/2018 Noted Allergy Reaction CODEINE 10/26/2004 2 - Rash 9 - Itching DARVOCET A500 (PROPOXYPHENE N-JESSICA*10/26/2004 2 - Rash 9 - Itching DARVON (PROPOXYPHENE HCL) 10/26/2004 2 - Rash 9 - Itching DAYPRO (OXAPROZIN) 01/02/2005 2 - Rash EFFEXOR (VENLAFAXINE HCL) 01/02/2005 5 - Intolerance Comments: decreased libido FLEXERIL (CYCLOBENZAPRINE HCL) 01/02/2005 8 - GI Upset 11 - Vomiting GABAPENTIN 12/15/2015 1 - Mental Status Change Comments: hangover NORCO (HYDROCODONE-ACETAMINOPHEN) 01/02/2005 8 - GI Upset 9 - Itching Comments: nausea, itching OXYBUTYNIN 11/20/2011 14 - Other: See Comments Comments: Urinary retention PINE TREES (TREES) 12/07/2008 Comments: rash TALWIN (PENTAZOCINE LACTATE) 01/02/2005 9 - Itching Comments: GI upset ULTRAM (TRAMADOL HCL) 01/02/2005 8 - GI Upset VIOXX (ROFECOXIB) 01/02/2005 2 - Rash Date Reviewed: 01/15/2018 Reviewed by: Eloisa Maldonado - Fully Assessed Prescriptions as of 03/10/2018 Sig: TRETINOIN 0.025 % TOPICAL GEL Apply 1 application to affect* ATORVASTATIN 20 MG TABLET Take 1 tablet by mouth daily * ERGOCALCIFEROL (VITAMIN D2) 5* Take 1 capsule by mouth once * ABATACEPT (WITH MALTOSE) 250 * Inject 750 mg intravenously q* RIFAMPIN 150 MG CAPSULE Take 300 mg by mouth once nicki* CALCIUM CARBONATE 600 MG (1,5* Take 1 tablet by mouth once d* ROPINIROLE 1 MG TABLET Take 1 tablet by mouth daily * NICOTINE 10 MG INHALATION CAR* Inhale 2 Puffs as instructed * PROMETHAZINE 25 MG TABLET Take 1 tablet by mouth every * ONDANSETRON 4 MG DISINTEGRATI* Take 1 tablet by mouth every * ALPRAZOLAM 1 MG TABLET Take 1 mg by mouth twice jaleel* QUETIAPINE 100 MG TABLET Take 2 tablets by mouth daily* RIZATRIPTAN 10 MG TABLET Take 1 tablet by mouth at ons* ALENDRONATE 70 MG TABLET take 1 tablet by mouth ONCE E* OMEGA-3 FATTY ACIDS 1,000 MG * Take 2 capsules by mouth once* X POTASSIUM CHLORIDE ER 8 MEQ C* take 1 capsule by mouth once * Progress Notes: Jayleen Gurrola PT 03/10/2018 6:28 PM Signed Episode Visit Count: 15 Therapist That Will Oversee The Plan Of Care: Jayleen Gurrola PT Start of Care Date: 12/18/17 Onset Date: 10/12/17 Plan of Care Certification Date: 02/12/18 Patient Identified by Name and Date of : Yes REHABILITATION AND SPORTS THERAPY PHYSICAL THERAPY TREATMENT NOTE ASSESSMENT: David Berg demonstrated difficulty with gait and increase swelling since last therapy. Decreased intensity of exercises today due to increase pain. Patient discouraged with the set back today. No change in pain with treatment today. The patient will continue to benefit from continued skilled physical therapy for Manual therapy and ankle and toe strengthening. PLAN FOR NEXT VISIT: Continue with exercises per patient tolerance. SUBJECTIVE: Patient reports increase pain and swelling after last visit. She reports wearing her new AFO as directed. She reports she walks flat footed with AFO but does not like it that she can't move her ankle as well. She reports the compression sock is not in yet. Pain Score: 7/10 Pain Location: Foot - Left;Ankle - Left Description: Aching;Throbbing Frequency: Continuous Post Treatment Pain Score: No Change OBJECTIVE MEASURES WITH LEVEL OF FUNCTION: Increase antalgic gait with decrease weight bearing left lower extremity today. TREATMENT: Therapeutic Exercise: 4: TOGA toe exercise with toe abduction, toe adduction and great toe extension with 2-4 press into floor and 2nd-4th toe extension and 1st and fifth on floor x 10 each 5: Left ankle ABC'sx 1. 6: Seated BAPS left ball 3 7: Strap assist left 2x30 seconds. 8: Left toe curls x 1 minute 9: Weight bearing left gastroc and soleus stretch 2x30 seconds. 10: [place] Rep band resistive df,pf,inv and evr x2x10. Skilled Intervention: Patient was educated in proper exercise technique and purpose for exercises. Skilled judgment was provided in selection of appropriate interventions. Correct performance of therapeutic exercises was facilitated with verbal cuing. Manual Therapy: 2: IASTM with patient prone lying at start of treatment left gastroc, achilles arch and base of toes x 13 minutes. 3: Prone L ankle anterior mobs to help with PF, Grade II, x10 4: Prone L ankle Posterior mobs to help with DF, Grade II, x10 Skilled Intervention: Manual skills to improve joint mobility, ROM, and decrease pain. Utilized anatomy knowledge of the therapist, and assessment of patient's response to intervention. Billing: [facility]: Therapeutic Exercise ([id number]): 1:1 time: 30 minutes (2 units: 23-37 mins) Manual Therapy ([id number]): 1:1 time: 15 minutes (1 units: 8-22 mins) Total time: 45 minutes Cat Villalobos, PT-Love Gurrola PT Previous Version Follow-up and Disposition History Recorded CNPMelvi Observed: 03/10/2018 Status: COMPLETED Source: [place] 12:00 AM [facility] REPOSITORY Telephone (FAMPWS) DAVID BERG ([id number]) 1955 F Date Time Provider Department 03/10/18 LIZBETH POOL) CARO During your visit today, we recorded the following information about you: Estelle Camilo Psr 03/10/2018 11:55 AM Signed Patient has been identified by name and date of : Yes Pending Prescriptions Disp Refills POTASSIUM CHLORIDE ER 8 MEQ CAPSULE,EXTENDED RELEASE 90 capsule 1 Sig: take 1 capsule by mouth once daily with BREAKFAST ADAIR: No carisoprodol (SOMA) 350 mg tablet RX INSTRUCTIONS: Patient aware RX will be sent to pharmacy. No need to notify patient. Controlled medication - must be called in. Estelle Camilo Psr Johanne Rubio MA, MA 03/10/2018 3:14 PM Signed Patient has been identified by name and date of : Yes Pharmacy phones for refill(s): Pending Prescriptions Disp Refills POTASSIUM CHLORIDE ER 8 MEQ CAPSULE,EXTENDED RELEASE 90 capsule 1 Sig: take 1 capsule by mouth once daily with BREAKFAST ADAIR: No Last Office Visit:01/08/18 Next Scheduled Office Visit:04/10/18 Last Refill:02/21/17 Qty:90 Refills:1 LYNNE More Psr 03/12/2018 12:22 PM Signed Patient calling regarding the following ordered prescription SOMA. Patient only has enough for today and would like to pick it up today, please advise Allergies As of Date: 03/10/2018 Noted Allergy Reaction CODEINE 10/26/2004 2 - Rash 9 - Itching DARVOCET A500 (PROPOXYPHENE N-JESSICA*10/26/2004 2 - Rash 9 - Itching DARVON (PROPOXYPHENE HCL) 10/26/2004 2 - Rash 9 - Itching DAYPRO (OXAPROZIN) 01/02/2005 2 - Rash EFFEXOR (VENLAFAXINE HCL) 01/02/2005 5 - Intolerance Comments: decreased libido FLEXERIL (CYCLOBENZAPRINE HCL) 01/02/2005 8 - GI Upset 11 - Vomiting GABAPENTIN 12/15/2015 1 - Mental Status Change Comments: hangover NORCO (HYDROCODONE-ACETAMINOPHEN) 01/02/2005 8 - GI Upset 9 - Itching Comments: nausea, itching OXYBUTYNIN 11/20/2011 14 - Other: See Comments Comments: Urinary retention PINE TREES (TREES) 12/07/2008 Comments: rash TALWIN (PENTAZOCINE LACTATE) 01/02/2005 9 - Itching Comments: GI upset ULTRAM (TRAMADOL HCL) 01/02/2005 8 - GI Upset VIOXX (ROFECOXIB) 01/02/2005 2 - Rash Date Reviewed: 01/15/2018 Reviewed by: Eloisa Maldonado - Fully Assessed Reason for Visit: Refill Request [94] Order(s):potassium chloride SR (MICRO-K) 8 mEq cpERtake 1 capsule by mouth once daily with BREAKFASTDisp: 90 capsuleRfl: 1 Prescriptions as of 03/10/2018 Sig: POTASSIUM CHLORIDE ER 8 MEQ C* take 1 capsule by mouth once * TRETINOIN 0.025 % TOPICAL GEL Apply 1 application to affect* ATORVASTATIN 20 MG TABLET Take 1 tablet by mouth daily * ERGOCALCIFEROL (VITAMIN D2) 5* Take 1 capsule by mouth once * ABATACEPT (WITH MALTOSE) 250 * Inject 750 mg intravenously q* RIFAMPIN 150 MG CAPSULE Take 300 mg by mouth once nicki* CALCIUM CARBONATE 600 MG (1,5* Take 1 tablet by mouth once d* ROPINIROLE 1 MG TABLET Take 1 tablet by mouth daily * NICOTINE 10 MG INHALATION CAR* Inhale 2 Puffs as instructed * PROMETHAZINE 25 MG TABLET Take 1 tablet by mouth every * ONDANSETRON 4 MG DISINTEGRATI* Take 1 tablet by mouth every * ALPRAZOLAM 1 MG TABLET Take 1 mg by mouth twice jaleel* QUETIAPINE 100 MG TABLET Take 2 tablets by mouth daily* RIZATRIPTAN 10 MG TABLET Take 1 tablet by mouth at ons* ALENDRONATE 70 MG TABLET take 1 tablet by mouth ONCE E* OMEGA-3 FATTY ACIDS 1,000 MG * Take 2 capsules by mouth once* Problem List As Of Date 03/10/2018 Noted Resolved Cleft lip, 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 Orbital mass [H05.89] INVALID FOR*06/01/2016 RLS (restless legs syndrome) [G25.81] INVALID FOR* Nasal septal deviation [J34.2] INVALID FOR*06/01/2016 Pruritus of forearm [L29.9] INVALID FOR*06/01/2016 Pruritus - disorder INVALID FOR*06/01/2016 Eczematous dermatitis [L30.9] INVALID FOR*06/01/2016 Lichenoid dermatitis [L28.0] INVALID FOR*06/01/2016 Excoriation [T14.8XXA] INVALID FOR*06/01/2016 Capsulitis [M77.9] INVALID FOR*06/01/2016 Closed fracture of lateral malleolus [S82.63XA] INVALID FOR*06/01/2016 Contusion of toe [S90.129A] INVALID FOR*06/01/2016 Migraine headache [G43.909] INVALID FOR* Falls [W19.XXXA] INVALID FOR* Arthritis of left knee [M17.12] INVALID FOR*06/01/2016 Leg ulcer, left (HCC) [L97.929] INVALID FOR*06/01/2016 Xerosis cutis [L85.3] INVALID FOR*06/01/2016 Palpitations [R00.2] INVALID FOR* Cervical strain [S16.1XXA] INVALID FOR*06/01/2016 Cervical disc disease [M50.90] INVALID FOR*06/01/2016 Bulimia [F50.2] INVALID FOR* Eating disorder [F50.9] INVALID FOR*06/01/2016 Positive PPD [R76.11] INVALID FOR* Personality disorder with predominantly sociopa*INVALID FOR* Insomnia [G47.00] INVALID FOR* Cataract of both eyes [H26.9] INVALID FOR*06/01/2016 More... Cervicalgia [M54.2] INVALID FOR* Lumbago [M54.5] INVALID FOR*06/01/2016 Encounter for long-term (current) use of medica*INVALID FOR*06/01/2016 Chronic pain syndrome [G89.4] INVALID FOR*06/01/2016 Left-sided low back pain with left-sided sciati*INVALID FOR* HNP (herniated nucleus pulposus), lumbar [M51.2*INVALID FOR* Rheumatoid arthritis involving multiple sites w*INVALID FOR* Dry eye syndrome [H04.129] INVALID FOR* Hyperlipidemia [E78.5] Acute left ankle pain [M25.572] INVALID FOR* Pain in toe of left foot [M79.675] INVALID FOR* Prescriptions ordered this encounter Disp Refills Start End POTASSIUM CHLORIDE ER 8 MEQ CAPSULE,* 90 c* 1 03/10/2018 Sig: take 1 capsule by mouth once daily with BREAKFAST Medications Discontinued During This Encounter potassium chloride SR (MICRO-K) 8 mE* 90 c* 1 02/21/2017 03/10/2018 Sig: take 1 capsule by mouth once daily with BREAKFAST Disc: Reason for discontinue is not on file. Encounter Status:Closed by LIZBETH POOL MD on 03/10/18 PROGRESS Observed: 03/06/2018 Status: COMPLETED Source: [place] 8:43 PM [facility] REPOSITORY O ID: [id number] Author: Jayleen (Pt) [employer] Service: (none) Author Type: Physical Therapist Type: Progress Notes Filed: 03/06/2018 8:52 PM Note Text: Episode Visit Count: 14 Therapist That Will Oversee The Plan Of Care: Jayleen Gurrola PT Start of Care Date: 12/18/17 Onset Date: 10/12/17 Plan of Care Certification Date: 02/12/18 Patient Identified by Name and Date of : Yes REHABILITATION AND SPORTS THERAPY PHYSICAL THERAPY TREATMENT NOTE ASSESSMENT: David Berg demonstrated fair tolerance to additional of weight for ABCs and FWBing on the BAPS board. Patient had a very challenging time taping the BAPS board to the R or using medial muscles of the L foot. She reported increased soreness in big toe, pinky toe and medial side L ankle, which may be contributed to additional of weight and FWBing. Patient has an lace up leather AFO she was encouraged to follow a break in wearing program. The patient will continue to benefit from continued skilled physical therapy for ROM, strengthening in weight bearing, and manual. Patient seems to do well with manual performed prior to exercise. PLAN FOR NEXT VISIT: Assess delayed reponse to last session. Perform manual followed by exercise. Con't with weight bearing exercises. POC update: 03/12/18 SUBJECTIVE: Just picked up her leather AFO brace and has had it on for 15 minutes and thinks she can walk straighter. Doctor wants her to break in with a wearing program. Pain Score: 5/10 Pain Location: Foot - Left (ontop of toes and base of toes and lateral malleoli) Description: Aching;Throbbing Frequency: Continuous Post Treatment Pain Score: 6/10 Pain Location: (big toe, little toe and, medial ankle) Post Treatment Pain Description: Sore OBJECTIVE MEASURES WITH LEVEL OF FUNCTION: Gait Gait Observation: arrived walking with good gait. L toes pointed forward with heel strike and toe off. TREATMENT: Therapeutic Exercise: 4: TOGA toe exercise with toe abduction, toe adduction and great toe extension with 2-4 press into floor and 2nd-4th toe extension and 1st and fifth on floor x 10 each (great form) 5: Left ankle ABC'sx 1 with 1lb weight 6: Standing BAPS left FWB in // bars ball 3 A/P, lateral--difficult moving medially and cw--only did x5 and ccw x10 8: Left toe curls x 1 minute (patient reported discomfort in 2nd toe) 9: Weight bearing gastroc stretch with prostretch and green step on left 2x30 seconds. 10: Weight bearing soleus stretch on left 2x30 seconds. 11: Rocker board forward/backwards and sided to side x10 each without UE assist 12: Forward Step ups on Bosu x10 L and R 13: Step up and overs on Bosu x10 with B UE support Skilled Intervention: Patient was educated in proper exercise technique and purpose for exercises. Skilled judgment was provided in selection of appropriate interventions. Manual Therapy: 2: IASTM with patient prone lying at start of treatment left gastroc, achilles arch and base of toes x 13 minutes. 3: Prone L ankle anterior mobs to help with PF, Grade II, x10 4: Prone L ankle Posterior mobs to help with DF, Grade II, x10 5: L great toe dorsal (for extension) and plantar (for flexion) Grade II mobs x10 each to help improve toe off with gait 6: L ankle lateral (for inversion) and medial (for eversion) Grade II gapping x10 each Skilled Intervention: Manual skills to improve joint mobility, ROM, and decrease pain. Utilized anatomy knowledge of the therapist, and assessment of patient's response to intervention. Billing: [facility]: Therapeutic Exercise ([id number]): 1:1 time: 27 minutes (2 units: 23-37 mins) Manual Therapy ([id number]): 1:1 time: 18 minutes (1 unit: 8-22 mins) Total time: 45 minutes Jayleen Gurrola PT CNTHERAPY Observed: 03/05/2018 Status: COMPLETED Source: [place] 2:45 PM [facility] REPOSITORY OT/PT/Speech Visit (PTWS) DAVID BERG ([id number]) 1955 F Date Time Provider Department 03/05/18 2:45 PM JAYLEEN GURROLA (PT) PTWS Date Time Provider Department Center 03/05/2018 2:45 PM [id number], DIANA (PT)PTWS [facility] Reason for Visit: Physical Therapy [503] Primary Visit Diagnosis:Acute left ankle pain [M25.572] Other Visit Diagnosis:Pain in toe of left foot [M79.675] Allergies As of Date: 03/05/2018 Noted Allergy Reaction CODEINE 10/26/2004 2 - Rash 9 - Itching DARVOCET A500 (PROPOXYPHENE N-JESSICA*10/26/2004 2 - Rash 9 - Itching DARVON (PROPOXYPHENE HCL) 10/26/2004 2 - Rash 9 - Itching DAYPRO (OXAPROZIN) 01/02/2005 2 - Rash EFFEXOR (VENLAFAXINE HCL) 01/02/2005 5 - Intolerance Comments: decreased libido FLEXERIL (CYCLOBENZAPRINE HCL) 01/02/2005 8 - GI Upset 11 - Vomiting GABAPENTIN 12/15/2015 1 - Mental Status Change Comments: hangover NORCO (HYDROCODONE-ACETAMINOPHEN) 01/02/2005 8 - GI Upset 9 - Itching Comments: nausea, itching OXYBUTYNIN 11/20/2011 14 - Other: See Comments Comments: Urinary retention PINE TREES (TREES) 12/07/2008 Comments: rash TALWIN (PENTAZOCINE LACTATE) 01/02/2005 9 - Itching Comments: GI upset ULTRAM (TRAMADOL HCL) 01/02/2005 8 - GI Upset VIOXX (ROFECOXIB) 01/02/2005 2 - Rash Date Reviewed: 01/15/2018 Reviewed by: Eloisa Maldonado - Fully Assessed Prescriptions as of 03/05/2018 Sig: CARISOPRODOL 350 MG TABLET Take 1 tablet by mouth three * TRETINOIN 0.025 % TOPICAL GEL Apply 1 application to affect* ATORVASTATIN 20 MG TABLET Take 1 tablet by mouth daily * ERGOCALCIFEROL (VITAMIN D2) 5* Take 1 capsule by mouth once * ABATACEPT (WITH MALTOSE) 250 * Inject 750 mg intravenously q* RIFAMPIN 150 MG CAPSULE Take 300 mg by mouth once nicki* CALCIUM CARBONATE 600 MG (1,5* Take 1 tablet by mouth once d* ROPINIROLE 1 MG TABLET Take 1 tablet by mouth daily * NICOTINE 10 MG INHALATION CAR* Inhale 2 Puffs as instructed * PROMETHAZINE 25 MG TABLET Take 1 tablet by mouth every * ONDANSETRON 4 MG DISINTEGRATI* Take 1 tablet by mouth every * ALPRAZOLAM 1 MG TABLET Take 1 mg by mouth twice jaleel* QUETIAPINE 100 MG TABLET Take 2 tablets by mouth daily* POTASSIUM CHLORIDE ER 8 MEQ C* take 1 capsule by mouth once * RIZATRIPTAN 10 MG TABLET Take 1 tablet by mouth at ons* ALENDRONATE 70 MG TABLET take 1 tablet by mouth ONCE E* OMEGA-3 FATTY ACIDS 1,000 MG * Take 2 capsules by mouth once* Progress Notes: Jayleen Gurrola PT 03/06/2018 8:52 PM Signed Episode Visit Count: 14 Therapist That Will Oversee The Plan Of Care: Jayleen Gurrola PT Start of Care Date: 12/18/17 Onset Date: 10/12/17 Plan of Care Certification Date: 02/12/18 Patient Identified by Name and Date of : Yes REHABILITATION AND SPORTS THERAPY PHYSICAL THERAPY TREATMENT NOTE ASSESSMENT: David Berg demonstrated fair tolerance to additional of weight for ABCs and FWBing on the BAPS board. Patient had a very challenging time taping the BAPS board to the R or using medial muscles of the L foot. She reported increased soreness in big toe, pinky toe and medial side L ankle, which may be contributed to additional of weight and FWBing. Patient has an lace up leather AFO she was encouraged to follow a break in wearing program. The patient will continue to benefit from continued skilled physical therapy for ROM, strengthening in weight bearing, and manual. Patient seems to do well with manual performed prior to exercise. PLAN FOR NEXT VISIT: Assess delayed reponse to last session. Perform manual followed by exercise. Con't with weight bearing exercises. POC update: 03/12/18 SUBJECTIVE: Just picked up her leather AFO brace and has had it on for 15 minutes and thinks she can walk straighter. Doctor wants her to break in with a wearing program. Pain Score: 5/10 Pain Location: Foot - Left (ontop of toes and base of toes and lateral malleoli) Description: Aching;Throbbing Frequency: Continuous Post Treatment Pain Score: 6/10 Pain Location: (big toe, little toe and, medial ankle) Post Treatment Pain Description: Sore OBJECTIVE MEASURES WITH LEVEL OF FUNCTION: Gait Gait Observation: arrived walking with good gait. L toes pointed forward with heel strike and toe off. TREATMENT: Therapeutic Exercise: 4: TOGA toe exercise with toe abduction, toe adduction and great toe extension with 2-4 press into floor and 2nd-4th toe extension and 1st and fifth on floor x 10 each (great form) 5: Left ankle ABC'sx 1 with 1lb weight 6: Standing BAPS left FWB in // bars ball 3 A/P, lateral--difficult moving medially and cw--only did x5 and ccw x10 8: Left toe curls x 1 minute (patient reported discomfort in 2nd toe) 9: Weight bearing gastroc stretch with prostretch and green step on left 2x30 seconds. 10: Weight bearing soleus stretch on left 2x30 seconds. 11: Rocker board forward/backwards and sided to side x10 each without UE assist 12: Forward Step ups on Bosu x10 L and R 13: Step up and overs on Bosu x10 with B UE support Skilled Intervention: Patient was educated in proper exercise technique and purpose for exercises. Skilled judgment was provided in selection of appropriate interventions. Manual Therapy: 2: IASTM with patient prone lying at start of treatment left gastroc, achilles arch and base of toes x 13 minutes. 3: Prone L ankle anterior mobs to help with PF, Grade II, x10 4: Prone L ankle Posterior mobs to help with DF, Grade II, x10 5: L great toe dorsal (for extension) and plantar (for flexion) Grade II mobs x10 each to help improve toe off with gait 6: L ankle lateral (for inversion) and medial (for eversion) Grade II gapping x10 each Skilled Intervention: Manual skills to improve joint mobility, ROM, and decrease pain. Utilized anatomy knowledge of the therapist, and assessment of patient's response to intervention. Billing: [facility]: Therapeutic Exercise ([id number]): 1:1 time: 27 minutes (2 units: 23-37 mins) Manual Therapy ([id number]): 1:1 time: 18 minutes (1 unit: 8-22 mins) Total time: 45 minutes Jayleen Gurrola PT PROGRESS Observed: 03/03/2018 Status: COMPLETED Source: [place] 3:24 PM [facility] [place] REPOSITORY HNO ID: [id number] Author: Jayleen (Pt) [employer] Service: (none) Author Type: Physical Therapist Type: Progress Notes Filed: 03/04/2018 12:04 PM Note Text: Episode Visit Count: 13 Therapist That Will Oversee The Plan Of Care: Jayleen Gurrola PT Start of Care Date: 12/18/17 Onset Date: 10/12/17 Plan of Care Certification Date: 02/12/18 Patient Identified by Name and Date of : Yes REHABILITATION AND SPORTS THERAPY PHYSICAL THERAPY TREATMENT NOTE ASSESSMENT: David Velazquez Otis demonstrated improvements in left toe movement, gait and reduction in pain. Patient is pleased with current progress. The patient will continue to benefit from continued skilled physical therapy for continuation of improved ankle and toe mobility and gait. PLAN FOR NEXT VISIT: Continue with IASTM left gastroc and plantar surface of ball of foot and arch and foot intrinsic strengthening and BAPS SUBJECTIVE: Patient reports the carmen is doing much better. She reports feeling better and swelling is less. Pain Score: 4/10 Pain Location: Foot - Left (under toes) Description: Aching;Throbbing Frequency: Continuous Post Treatment Pain Score: 4/10 Pain Location: Ankle - Left Post Treatment Pain Description: Aching OBJECTIVE MEASURES WITH LEVEL OF FUNCTION: Gait on level with sock on with much improved left foot placement, heel strike and push off during swing through of gait. TREATMENT: Therapeutic Exercise: 3: Gait on level with sock on with much improved left foot placement, heel strike and push off during swing through of gait. 4: TOGA toe exercise with toe abduction , toe adduction and great toe extension with 2-4 press into floor and 2nd-4th toe extension and 1st and fifth on floor x 10 each 5: Left ankle ABC'sx 1. 6: Seated BAPS left PWB ball 3 A/P, lateral and cw and ccw 2x10 7: Austin Rep band resistive df,pf,inv and evr x2x10. Pain with eversion of ankle with resistance. 8: Left toe curls x 1 minute. 9: *Weight bearing gastroc and soleus stretch on left 2x30 seconds. Skilled Intervention: Patient was educated in proper exercise technique and purpose for exercises. Reviewed and educated patient on additions/changes for home exercise program as above (*) Skilled judgment was provided in selection of appropriate interventions. Provided written instruction for home exercise program to facilitate proper performance and compliance. Correct performance of therapeutic exercises was facilitated with verbal and visual cuing. Manual Therapy: 2: IASTM with patient prone lying at start of treatment left gastroc, achilles arch and base of toes x 13 minutes. 3: Prone L ankle anterior mobs to help with PF, Grade I-II, 2x10 4: Prone L ankle Posterior mobs to help with DF, Grade I-II, 2x10 Skilled Intervention: Manual skills to improve joint mobility, ROM, and decrease pain. Utilized anatomy knowledge of the therapist, and assessment of patient's response to intervention. Billing: [facility]: Therapeutic Exercise ([id number]): 1:1 time: 30 minutes (2 units: 23-37 mins) Manual Therapy ([id number]): 1:1 time: 15 minutes (1 unit: 8-22 mins) Total time: 45 minutes GREGORY Felix PT CNTHERAPY Observed: 03/03/2018 Status: COMPLETED Source: [place] 2:45 PM [facility] REPOSITORY OT/PT/Speech Visit (PTWS) DAVID BERG ([id number]) 1955 F Date Time Provider Department 03/03/18 2:45 PM CAT VILLALOBOS) PTWS Date Time Provider Department Center 03/03/2018 2:45 PM [id number] VILLALOBOSETHANOL OPERATOR) PTWS [facility] Reason for Visit: Physical Therapy [503] Primary Visit Diagnosis:Acute left ankle pain [M25.572] Other Visit Diagnosis:Pain in toe of left foot [M79.675] Allergies As of Date: 03/03/2018 Noted Allergy Reaction CODEINE 10/26/2004 2 - Rash 9 - Itching DARVOCET A500 (PROPOXYPHENE N-JESSICA*10/26/2004 2 - Rash 9 - Itching DARVON (PROPOXYPHENE HCL) 10/26/2004 2 - Rash 9 - Itching DAYPRO (OXAPROZIN) 01/02/2005 2 - Rash EFFEXOR (VENLAFAXINE HCL) 01/02/2005 5 - Intolerance Comments: decreased libido FLEXERIL (CYCLOBENZAPRINE HCL) 01/02/2005 8 - GI Upset 11 - Vomiting GABAPENTIN 12/15/2015 1 - Mental Status Change Comments: hangover NORCO (HYDROCODONE-ACETAMINOPHEN) 01/02/2005 8 - GI Upset 9 - Itching Comments: nausea, itching OXYBUTYNIN 11/20/2011 14 - Other: See Comments Comments: Urinary retention PINE TREES (TREES) 12/07/2008 Comments: rash TALWIN (PENTAZOCINE LACTATE) 01/02/2005 9 - Itching Comments: GI upset ULTRAM (TRAMADOL HCL) 01/02/2005 8 - GI Upset VIOXX (ROFECOXIB) 01/02/2005 2 - Rash Date Reviewed: 01/15/2018 Reviewed by: Eloisa Maldonado - Fully Assessed Prescriptions as of 03/03/2018 Sig: CARISOPRODOL 350 MG TABLET Take 1 tablet by mouth three * TRETINOIN 0.025 % TOPICAL GEL Apply 1 application to affect* ATORVASTATIN 20 MG TABLET Take 1 tablet by mouth daily * ERGOCALCIFEROL (VITAMIN D2) 5* Take 1 capsule by mouth once * ABATACEPT (WITH MALTOSE) 250 * Inject 750 mg intravenously q* RIFAMPIN 150 MG CAPSULE Take 300 mg by mouth once nicki* CALCIUM CARBONATE 600 MG (1,5* Take 1 tablet by mouth once d* ROPINIROLE 1 MG TABLET Take 1 tablet by mouth daily * NICOTINE 10 MG INHALATION CAR* Inhale 2 Puffs as instructed * PROMETHAZINE 25 MG TABLET Take 1 tablet by mouth every * ONDANSETRON 4 MG DISINTEGRATI* Take 1 tablet by mouth every * ALPRAZOLAM 1 MG TABLET Take 1 mg by mouth twice jaleel* QUETIAPINE 100 MG TABLET Take 2 tablets by mouth daily* POTASSIUM CHLORIDE ER 8 MEQ C* take 1 capsule by mouth once * RIZATRIPTAN 10 MG TABLET Take 1 tablet by mouth at ons* ALENDRONATE 70 MG TABLET take 1 tablet by mouth ONCE E* OMEGA-3 FATTY ACIDS 1,000 MG * Take 2 capsules by mouth once* Progress Notes: Jayleen Gurrola PT 03/04/2018 12:04 PM Signed Episode Visit Count: 13 Therapist That Will Oversee The Plan Of Care: Jayleen Gurrola PT Start of Care Date: 12/18/17 Onset Date: 10/12/17 Plan of Care Certification Date: 02/12/18 Patient Identified by Name and Date of : Yes REHABILITATION AND SPORTS THERAPY PHYSICAL THERAPY TREATMENT NOTE ASSESSMENT: David Berg demonstrated improvements in left toe movement, gait and reduction in pain. Patient is pleased with current progress. The patient will continue to benefit from continued skilled physical therapy for continuation of improved ankle and toe mobility and gait. PLAN FOR NEXT VISIT: Continue with IASTM left gastroc and plantar surface of ball of foot and arch and foot intrinsic strengthening and BAPS SUBJECTIVE: Patient reports the carmen is doing much better. She reports feeling better and swelling is less. Pain Score: 4/10 Pain Location: Foot - Left (under toes) Description: Aching;Throbbing Frequency: Continuous Post Treatment Pain Score: 4/10 Pain Location: Ankle - Left Post Treatment Pain Description: Aching OBJECTIVE MEASURES WITH LEVEL OF FUNCTION: Gait on level with sock on with much improved left foot placement, heel strike and push off during swing through of gait. TREATMENT: Therapeutic Exercise: 3: Gait on level with sock on with much improved left foot placement, heel strike and push off during swing through of gait. 4: TOGA toe exercise with toe abduction , toe adduction and great toe extension with 2-4 press into floor and 2nd-4th toe extension and 1st and fifth on floor x 10 each 5: Left ankle ABC'sx 1. 6: Seated BAPS left PWB ball 3 A/P, lateral and cw and ccw 2x10 7: Austin Rep band resistive df,pf,inv and evr x2x10. Pain with eversion of ankle with resistance. 8: Left toe curls x 1 minute. 9: *Weight bearing gastroc and soleus stretch on left 2x30 seconds. Skilled Intervention: Patient was educated in proper exercise technique and purpose for exercises. Reviewed and educated patient on additions/changes for home exercise program as above (*) Skilled judgment was provided in selection of appropriate interventions. Provided written instruction for home exercise program to facilitate proper performance and compliance. Correct performance of therapeutic exercises was facilitated with verbal and visual cuing. Manual Therapy: 2: IASTM with patient prone lying at start of treatment left gastroc, achilles arch and base of toes x 13 minutes. 3: Prone L ankle anterior mobs to help with PF, Grade I-II, 2x10 4: Prone L ankle Posterior mobs to help with DF, Grade I-II, 2x10 Skilled Intervention: Manual skills to improve joint mobility, ROM, and decrease pain. Utilized anatomy knowledge of the therapist, and assessment of patient's response to intervention. Billing: [facility]: Therapeutic Exercise ([id number]): 1:1 time: 30 minutes (2 units: 23-37 mins) Manual Therapy ([id number]): 1:1 time: 15 minutes (1 unit: 8-22 mins) Total time: 45 minutes GREGORY Felix PT Previous Version Follow-up and Disposition History Recorded PROGRESS Observed: 02/24/2018 Status: COMPLETED Source: [place] 3:41 PM [facility] [place] REPOSITORY HNO ID: [id number] Author: Jayleen Gurrola Service: (none) Author Type: Physical Therapist Type: Progress Notes Filed: 02/25/2018 11:41 AM Note Text: Episode Visit Count: 12 Therapist That Will Oversee The Plan Of Care: Jayleen Gurrola PT Start of Care Date: 12/18/17 Onset Date: 10/12/17 Plan of Care Certification Date: 02/12/18 Patient Identified by Name and Date of : Yes REHABILITATION AND SPORTS THERAPY PHYSICAL THERAPY TREATMENT NOTE ASSESSMENT: David Berg demonstrated improvements in gait pattern, improved toe movement and less pain today. Patient is pleased with current progress. The patient will continue to benefit from continued skilled physical therapy for progression of strength foot and ankle and toe movement. PLAN FOR NEXT VISIT: Continue with IASTM left gastroc and plantar surface of ball of foot and arch and foot intrinsic strengthening and BAPS SUBJECTIVE: Patient reports she is doing better today. She reports the tools used on bottom of the foot were helpful. Pain Score: 6/10 Pain Location: Foot - Right (right ankle distal achilles tendon) Description: Throbbing (base of toes and pad of plantar surface of foot.) Frequency: Continuous Post Treatment Pain Score: No Change OBJECTIVE MEASURES WITH LEVEL OF FUNCTION: Gait on level with much improved foot placement and gait pattern. TREATMENT: Therapeutic Exercise: 4: TOGA toe exercise with toe abduction , toe adduction and great toe extension with 2-4 press into floor and 2nd-4th toe extension and 1st and fifth on floor x 10 each 5: Left ankle ABC'sx 1. 6: Seated BAPS left PWB ball 3 A/P, lateral and cw and ccw 2x10 7: Austin Rep band resistive df,pf,inv and evr x2x10. Pain with eversion of ankle with resistance. 8: Gait on level with much imroved foot placement and gait pattern. Skilled Intervention: Patient was educated in proper exercise technique and purpose for exercises. Skilled judgment was provided in selection of appropriate interventions. Correct performance of therapeutic exercises was facilitated with verbal cuing. Manual Therapy: 2: IASTM with patient prone lying at start of treatment left gastroc, achilles arch and base of toes x 13 minutes. 3: L ankle anterior mobs to help with PF, Grade I-II, 3x5 4: L ankle Posterior mobs to help with DF, Grade I-II, 3x5 Skilled Intervention: Manual skills to improve joint mobility, ROM, and decrease pain. Utilized anatomy knowledge of the therapist, and assessment of patient's response to intervention. Billing: [facility]: Therapeutic Exercise ([id number]): 1:1 time: 25 minutes (2 units: 23-37 mins) Manual Therapy ([id number]): 1:1 time: 15 minutes (1 unit: 8-22 mins) Total time: 40 minutes Cat Villalobos PT-Love Gurrola PT CNTHERAPY Observed: 02/24/2018 Status: COMPLETED Source: [place] 2:45 PM [facility] [place] REPOSITORY OT/PT/Speech Visit (PTWS) DAVID BERG ([id number]) 1955 F Date Time Provider Department 02/24/18 2:45 PM CAT VILLALOBOS (ETHANOL OPERATOR) PTWS Date Time Provider Department Center 02/24/2018 2:45 PM [id number], NANCY (ETHANOL OPERATOR) PTWS [facility] Reason for Visit: Physical Therapy [503] Primary Visit Diagnosis:Acute left ankle pain [M25.572] Other Visit Diagnosis:Pain in toe of left foot [M79.675] Allergies As of Date: 02/24/2018 Noted Allergy Reaction CODEINE 10/26/2004 2 - Rash 9 - Itching DARVOCET A500 (PROPOXYPHENE N-JESSICA*10/26/2004 2 - Rash 9 - Itching DARVON (PROPOXYPHENE HCL) 10/26/2004 2 - Rash 9 - Itching DAYPRO (OXAPROZIN) 01/02/2005 2 - Rash EFFEXOR (VENLAFAXINE HCL) 01/02/2005 5 - Intolerance Comments: decreased libido FLEXERIL (CYCLOBENZAPRINE HCL) 01/02/2005 8 - GI Upset 11 - Vomiting GABAPENTIN 12/15/2015 1 - Mental Status Change Comments: hangover NORCO (HYDROCODONE-ACETAMINOPHEN) 01/02/2005 8 - GI Upset 9 - Itching Comments: nausea, itching OXYBUTYNIN 11/20/2011 14 - Other: See Comments Comments: Urinary retention PINE TREES (TREES) 12/07/2008 Comments: rash TALWIN (PENTAZOCINE LACTATE) 01/02/2005 9 - Itching Comments: GI upset ULTRAM (TRAMADOL HCL) 01/02/2005 8 - GI Upset VIOXX (ROFECOXIB) 01/02/2005 2 - Rash Date Reviewed: 01/15/2018 Reviewed by: Eloisa Maldonado - Fully Assessed Prescriptions as of 02/24/2018 Sig: CARISOPRODOL 350 MG TABLET Take 1 tablet by mouth three * TRETINOIN 0.025 % TOPICAL GEL Apply 1 application to affect* ATORVASTATIN 20 MG TABLET Take 1 tablet by mouth daily * ERGOCALCIFEROL (VITAMIN D2) 5* Take 1 capsule by mouth once * ABATACEPT (WITH MALTOSE) 250 * Inject 750 mg intravenously q* RIFAMPIN 150 MG CAPSULE Take 300 mg by mouth once nicki* CALCIUM CARBONATE 600 MG (1,5* Take 1 tablet by mouth once d* ROPINIROLE 1 MG TABLET Take 1 tablet by mouth daily * NICOTINE 10 MG INHALATION CAR* Inhale 2 Puffs as instructed * PROMETHAZINE 25 MG TABLET Take 1 tablet by mouth every * ONDANSETRON 4 MG DISINTEGRATI* Take 1 tablet by mouth every * ALPRAZOLAM 1 MG TABLET Take 1 mg by mouth twice jaleel* QUETIAPINE 100 MG TABLET Take 2 tablets by mouth daily* POTASSIUM CHLORIDE ER 8 MEQ C* take 1 capsule by mouth once * RIZATRIPTAN 10 MG TABLET Take 1 tablet by mouth at ons* ALENDRONATE 70 MG TABLET take 1 tablet by mouth ONCE E* OMEGA-3 FATTY ACIDS 1,000 MG * Take 2 capsules by mouth once* Progress Notes: Jayleen Gurrola PT 02/25/2018 11:41 AM Signed Episode Visit Count: 12 Therapist That Will Oversee The Plan Of Care: Jayleen Gurrola PT Start of Care Date: 12/18/17 Onset Date: 10/12/17 Plan of Care Certification Date: 02/12/18 Patient Identified by Name and Date of : Yes REHABILITATION AND SPORTS THERAPY PHYSICAL THERAPY TREATMENT NOTE ASSESSMENT: David Berg demonstrated improvements in gait pattern, improved toe movement and less pain today. Patient is pleased with current progress. The patient will continue to benefit from continued skilled physical therapy for progression of strength foot and ankle and toe movement. PLAN FOR NEXT VISIT: Continue with IASTM left gastroc and plantar surface of ball of foot and arch and foot intrinsic strengthening and BAPS SUBJECTIVE: Patient reports she is doing better today. She reports the tools used on bottom of the foot were helpful. Pain Score: 6/10 Pain Location: Foot - Right (right ankle distal achilles tendon) Description: Throbbing (base of toes and pad of plantar surface of foot.) Frequency: Continuous Post Treatment Pain Score: No Change OBJECTIVE MEASURES WITH LEVEL OF FUNCTION: Gait on level with much improved foot placement and gait pattern. TREATMENT: Therapeutic Exercise: 4: TOGA toe exercise with toe abduction , toe adduction and great toe extension with 2-4 press into floor and 2nd-4th toe extension and 1st and fifth on floor x 10 each 5: Left ankle ABC'sx 1. 6: Seated BAPS left PWB ball 3 A/P, lateral and cw and ccw 2x10 7: Austin Rep band resistive df,pf,inv and evr x2x10. Pain with eversion of ankle with resistance. 8: Gait on level with much imroved foot placement and gait pattern. Skilled Intervention: Patient was educated in proper exercise technique and purpose for exercises. Skilled judgment was provided in selection of appropriate interventions. Correct performance of therapeutic exercises was facilitated with verbal cuing. Manual Therapy: 2: IASTM with patient prone lying at start of treatment left gastroc, achilles arch and base of toes x 13 minutes. 3: L ankle anterior mobs to help with PF, Grade I-II, 3x5 4: L ankle Posterior mobs to help with DF, Grade I-II, 3x5 Skilled Intervention: Manual skills to improve joint mobility, ROM, and decrease pain. Utilized anatomy knowledge of the therapist, and assessment of patient's response to intervention. Billing: [facility]: Therapeutic Exercise ([id number]): 1:1 time: 25 minutes (2 units: 23-37 mins) Manual Therapy ([id number]): 1:1 time: 15 minutes (1 unit: 8-22 mins) Total time: 40 minutes GREGORY Felix PT Previous Version Follow-up and Disposition History Recorded PROGRESS Observed: 02/19/2018 Status: COMPLETED Source: [place] 4:06 PM [facility] [place] REPOSITORY HNO ID: [id number] Author: Varghese (Kishan) Amanda Service: (none) Author Type: Physical Therapist Type: Progress Notes Filed: 02/19/2018 4:42 PM Note Text: Episode Visit Count: 11 Therapist That Will Oversee The Plan Of Care: Jayleen Gurrola PT Start of Care Date: 12/18/17 Onset Date: 10/12/17 Plan of Care Certification Date: 02/12/18 Patient Identified by Name and Date of : Yes REHABILITATION AND SPORTS THERAPY PHYSICAL THERAPY TREATMENT NOTE ASSESSMENT: David Berg demonstrated difficulty with lateral left ankle pain above malleoli and pain plantar surface base of toes. Patient with a reduction in pain with addition of HAWKS data support specialist tools in addition to retrograde massage. Gait at times is improving with better foot placement and heel to toe off walk. The patient will continue to benefit from continued skilled physical therapy for manual therapy , stretching and strengthening of left foot and ankle. PLAN FOR NEXT VISIT: Review TOGA and continue with exercises for ankle and manual therapy for pain control. SUBJECTIVE: Patient reports left ankle and up calf hurt more after last therapy. She reports pad of left foot below base of toes feels like ridges and hurts. Pain Score: 8/10 Pain Location: Foot - Left;Ankle - Left Description: Aching;Throbbing Frequency: Continuous Post Treatment Pain Score: 6/10 Pain Location: Foot - Left;Ankle - Left Post Treatment Pain Description: Aching OBJECTIVE MEASURES WITH LEVEL OF FUNCTION: Increase pain with resistive eversion today. TREATMENT: Therapeutic Exercise: 5: Left ankle ABC'sx 1. 6: Seated BAPS left PWB ball 3 A/P, lateral and cw and ccw 2x10 7: Austin Rep band resistive df,pf,inv and evr x2x10. Pain with eversion of ankle with resistance. 8: Gait in // bars with emphasis on proper heel strike, foot flat and push off during swing through of gait. This is improving but patient still has pain. Skilled Intervention: Patient was educated in proper exercise technique and purpose for exercises. Skilled judgment was provided in selection of appropriate interventions. Correct performance of therapeutic exercises was facilitated with verbal and visual cuing. Manual Therapy: 1: left LE in elevation over large wedge bolster retrograde massage x 8 minutes with push to patient tolerance at end of treatment. 2: IASTM with patient prone lying at start of treatment left gastroc, achilles arch and base of toes x 15 minutes. Skilled Intervention: Manual skills to improve joint mobility, ROM, and decrease pain. Utilized anatomy knowledge of the therapist, and assessment of patient's response to intervention. Billing: [facility]: Therapeutic Exercise ([id number]): 1:1 time: 22 minutes (1 unit: 8-22 mins) Manual Therapy ([id number]): 1:1 time: 23 minutes (2 units: 23- 37 mins) Total time: 45 minutes GREGORY Felix PT CNTHERAPY Observed: 02/19/2018 Status: COMPLETED Source: [place] 3:00 PM [facility] REPOSITORY OT/PT/Speech Visit (PTWS) DAVID BERG ([id number]) 1955 F Date Time Provider Department 02/19/18 3:00 PM CAT VILLALOBOS (ETHANOL OPERATOR) PTWS Date Time Provider Department Center 02/19/2018 3:00 PM [id number], NANCY (ETHANOL OPERATOR) PTWS [facility] Reason for Visit: Physical Therapy [503] Primary Visit Diagnosis:Acute left ankle pain [M25.572] Other Visit Diagnosis:Pain in toe of left foot [M79.675] Allergies As of Date: 02/19/2018 Noted Allergy Reaction CODEINE 10/26/2004 2 - Rash 9 - Itching DARVOCET A500 (PROPOXYPHENE N-JESSICA*10/26/2004 2 - Rash 9 - Itching DARVON (PROPOXYPHENE HCL) 10/26/2004 2 - Rash 9 - Itching DAYPRO (OXAPROZIN) 01/02/2005 2 - Rash EFFEXOR (VENLAFAXINE HCL) 01/02/2005 5 - Intolerance Comments: decreased libido FLEXERIL (CYCLOBENZAPRINE HCL) 01/02/2005 8 - GI Upset 11 - Vomiting GABAPENTIN 12/15/2015 1 - Mental Status Change Comments: hangover NORCO (HYDROCODONE-ACETAMINOPHEN) 01/02/2005 8 - GI Upset 9 - Itching Comments: nausea, itching OXYBUTYNIN 11/20/2011 14 - Other: See Comments Comments: Urinary retention PINE TREES (TREES) 12/07/2008 Comments: rash TALWIN (PENTAZOCINE LACTATE) 01/02/2005 9 - Itching Comments: GI upset ULTRAM (TRAMADOL HCL) 01/02/2005 8 - GI Upset VIOXX (ROFECOXIB) 01/02/2005 2 - Rash Date Reviewed: 01/15/2018 Reviewed by: [facility] Center[facility]ip Maldonado - Fully Assessed Prescriptions as of 02/19/2018 Sig: CARISOPRODOL 350 MG TABLET Take 1 tablet by mouth three * TRETINOIN 0.025 % TOPICAL GEL Apply 1 application to affect* ATORVASTATIN 20 MG TABLET Take 1 tablet by mouth daily * ERGOCALCIFEROL (VITAMIN D2) 5* Take 1 capsule by mouth once * ABATACEPT (WITH MALTOSE) 250 * Inject 750 mg intravenously q* RIFAMPIN 150 MG CAPSULE Take 300 mg by mouth once nicki* CALCIUM CARBONATE 600 MG (1,5* Take 1 tablet by mouth once d* ROPINIROLE 1 MG TABLET Take 1 tablet by mouth daily * NICOTINE 10 MG INHALATION CAR* Inhale 2 Puffs as instructed * PROMETHAZINE 25 MG TABLET Take 1 tablet by mouth every * ONDANSETRON 4 MG DISINTEGRATI* Take 1 tablet by mouth every * ALPRAZOLAM 1 MG TABLET Take 1 mg by mouth twice jaleel* QUETIAPINE 100 MG TABLET Take 2 tablets by mouth daily* POTASSIUM CHLORIDE ER 8 MEQ C* take 1 capsule by mouth once * RIZATRIPTAN 10 MG TABLET Take 1 tablet by mouth at ons* ALENDRONATE 70 MG TABLET take 1 tablet by mouth ONCE E* OMEGA-3 FATTY ACIDS 1,000 MG * Take 2 capsules by mouth once* Progress Notes: Varghese Patel PT 02/19/2018 4:42 PM Signed Episode Visit Count: 11 Therapist That Will Oversee The Plan Of Care: Jayleen Gurrola PT Start of Care Date: 12/18/17 Onset Date: 10/12/17 Plan of Care Certification Date: 02/12/18 Patient Identified by Name and Date of : Yes REHABILITATION AND SPORTS THERAPY PHYSICAL THERAPY TREATMENT NOTE ASSESSMENT: David Berg demonstrated difficulty with lateral left ankle pain above malleoli and pain plantar surface base of toes. Patient with a reduction in pain with addition of HAWKS data support specialist tools in addition to retrograde massage. Gait at times is improving with better foot placement and heel to toe off walk. The patient will continue to benefit from continued skilled physical therapy for manual therapy , stretching and strengthening of left foot and ankle. PLAN FOR NEXT VISIT: Review TOGA and continue with exercises for ankle and manual therapy for pain control. SUBJECTIVE: Patient reports left ankle and up calf hurt more after last therapy. She reports pad of left foot below base of toes feels like ridges and hurts. Pain Score: 8/10 Pain Location: Foot - Left;Ankle - Left Description: Aching;Throbbing Frequency: Continuous Post Treatment Pain Score: 6/10 Pain Location: Foot - Left;Ankle - Left Post Treatment Pain Description: Aching OBJECTIVE MEASURES WITH LEVEL OF FUNCTION: Increase pain with resistive eversion today. TREATMENT: Therapeutic Exercise: 5: Left ankle ABC'sx 1. 6: Seated BAPS left PWB ball 3 A/P, lateral and cw and ccw 2x10 7: [place] Rep band resistive df,pf,inv and evr x2x10. Pain with eversion of ankle with resistance. 8: Gait in // bars with emphasis on proper heel strike, foot flat and push off during swing through of gait. This is improving but patient still has pain. Skilled Intervention: Patient was educated in proper exercise technique and purpose for exercises. Skilled judgment was provided in selection of appropriate interventions. Correct performance of therapeutic exercises was facilitated with verbal and visual cuing. Manual Therapy: 1: left LE in elevation over large wedge bolster retrograde massage x 8 minutes with push to patient tolerance at end of treatment. 2: IASTM with patient prone lying at start of treatment left gastroc, achilles arch and base of toes x 15 minutes. Skilled Intervention: Manual skills to improve joint mobility, ROM, and decrease pain. Utilized anatomy knowledge of the therapist, and assessment of patient's response to intervention. Billing: [facility]: Therapeutic Exercise ([id number]): 1:1 time: 22 minutes (1 unit: 8-22 mins) Manual Therapy ([id number]): 1:1 time: 23 minutes (2 units: 23- 37 mins) Total time: 45 minutes Cat Villalobos PTAlfred Patel PT Previous Version Follow-up and Disposition History Recorded PROGRESS Observed: 02/18/2018 Status: COMPLETED Source: [place] 7:13 AM [facility] REPOSITORY HNO ID: [id number] Author: Jayleen (Pt) [employer] Service: (none) Author Type: Physical Therapist Type: Progress Notes Filed: 02/18/2018 2:29 PM Note Text: Episode Visit Count: 10 Therapist That Will Oversee The Plan Of Care: Jayleen Gurrola PT Start of Care Date: 12/18/17 Onset Date: 10/12/17 Plan of Care Certification Date: 02/12/18 Patient Identified by Name and Date of : Yes REHABILITATION AND SPORTS THERAPY PHYSICAL THERAPY TREATMENT NOTE ASSESSMENT: David Berg demonstrated difficulty with walking for prolonged distances due to increase pain. Patient liked newly added foot intrinsic strengthening exercises. She was instructed not to do them more than 3 times per day as she has a tendency to over do exercises. Patient with a slight reduction in foot pain at end of treatment today. The patient will continue to benefit from continued skilled physical therapy for progression of exercises and manual retrograde massage for swelling reduction and pain control. PLAN FOR NEXT VISIT: Review TOGA exercises and progress ROM and strength of left foot and ankle. Pratice walking with a cane with correct mechanics. SUBJECTIVE: Patient reports temporary pain relief after last therapy. She reports the more she walks the more it hurts. She reports increase pain and swelling yesterday and today. Pain Score: 8/10 Pain Location: Foot - Left (top of foot and lateral foot) Description: Aching;Stiffness;Throbbing Frequency: Continuous Post Treatment Pain Score: 6/10 Pain Location: Foot - Left Post Treatment Pain Description: (decrease pain and looser) OBJECTIVE MEASURES WITH LEVEL OF FUNCTION: Improved heel to toe walk at end of treatment. TREATMENT: Therapeutic Exercise: 1: Seated AROM LEFT ankle df/pf,inv and evr x25 each. 2: Standing Gastroc stretch 30 sec, 3x 3: AROM left ankle circles cw and ccw 1x25 4: *TOGA toe exercise with toe abduction , toe extension and great toe extnesion with 2-4 press into floor. and 2nd-4th toe extension and 1st and fifth on floor x 10 each 6: Seated BAPS left PWB ball 3 A/P, lateral and cw and ccw 2x10 Skilled Intervention: Patient was educated in proper exercise technique and purpose for exercises. Reviewed and educated patient on additions/changes for home exercise program as above (*) Skilled judgment was provided in selection of appropriate interventions. Provided written instruction for home exercise program to facilitate proper performance and compliance. Correct performance of therapeutic exercises was facilitated with verbal and visual cuing. Manual Therapy: 1: left LE in elevation over large wedge bolster retrograde massage x 10 minutes with push to patient tolerance. 2: L ankle Posterior mobs prone lying with knee bent to help with DF, Grade I-II, 4x10 3: L ankle anterior mobs prone lying with knee bent to help with PF, Grade I-II, 4x10 5: L great toe dorsal (for extension) and plantar (for flexion) Grade I-II mobs 4x10 each to help improve toe off with gait Skilled Intervention: Manual skills to improve joint mobility, ROM, and decrease pain. Utilized anatomy knowledge of the therapist, and assessment of patient's response to intervention. Billing: [facility]: Therapeutic Exercise ([id number]): 1:1 time: 25 minutes (2 units: 23-37 mins) Manual Therapy ([id number]): 1:1 time: 20 minutes (1 unit: 8-22 mins) Total time: 45 minutes GREGORY Felix PT CNTHERAPY Observed: 02/17/2018 Status: COMPLETED Source: [place] 2:45 PM [facility] REPOSITORY OT/PT/Speech Visit (PTWS) DAVID BERG ([id number]) 1955 F Date Time Provider Department 02/17/18 2:45 PM CAT VILLALOBOS ([facility]) PTWS Date Time Provider Department Center 02/17/2018 2:45 PM [id number], NANCY (ETHANOL OPERATOR) PTWS [facility] Reason for Visit: Physical Therapy [503] Primary Visit Diagnosis:Acute left ankle pain [M25.572] Other Visit Diagnosis:Pain in toe of left foot [M79.675] Allergies As of Date: 02/17/2018 Noted Allergy Reaction CODEINE 10/26/2004 2 - Rash 9 - Itching DARVOCET A500 (PROPOXYPHENE N-JESSICA*10/26/2004 2 - Rash 9 - Itching DARVON (PROPOXYPHENE HCL) 10/26/2004 2 - Rash 9 - Itching DAYPRO (OXAPROZIN) 01/02/2005 2 - Rash EFFEXOR (VENLAFAXINE HCL) 01/02/2005 5 - Intolerance Comments: decreased libido FLEXERIL (CYCLOBENZAPRINE HCL) 01/02/2005 8 - GI Upset 11 - Vomiting GABAPENTIN 12/15/2015 1 - Mental Status Change Comments: hangover NORCO (HYDROCODONE-ACETAMINOPHEN) 01/02/2005 8 - GI Upset 9 - Itching Comments: nausea, itching OXYBUTYNIN 11/20/2011 14 - Other: See Comments Comments: Urinary retention PINE TREES (TREES) 12/07/2008 Comments: rash TALWIN (PENTAZOCINE LACTATE) 01/02/2005 9 - Itching Comments: GI upset ULTRAM (TRAMADOL HCL) 01/02/2005 8 - GI Upset VIOXX (ROFECOXIB) 01/02/2005 2 - Rash Date Reviewed: 01/15/2018 Reviewed by: Eloisa Maldonado - Fully Assessed Prescriptions as of 02/17/2018 Sig: CARISOPRODOL 350 MG TABLET Take 1 tablet by mouth three * TRETINOIN 0.025 % TOPICAL GEL Apply 1 application to affect* ATORVASTATIN 20 MG TABLET Take 1 tablet by mouth daily * ERGOCALCIFEROL (VITAMIN D2) 5* Take 1 capsule by mouth once * ABATACEPT (WITH MALTOSE) 250 * Inject 750 mg intravenously q* RIFAMPIN 150 MG CAPSULE Take 300 mg by mouth once nicki* CALCIUM CARBONATE 600 MG (1,5* Take 1 tablet by mouth once d* ROPINIROLE 1 MG TABLET Take 1 tablet by mouth daily * NICOTINE 10 MG INHALATION CAR* Inhale 2 Puffs as instructed * PROMETHAZINE 25 MG TABLET Take 1 tablet by mouth every * ONDANSETRON 4 MG DISINTEGRATI* Take 1 tablet by mouth every * ALPRAZOLAM 1 MG TABLET Take 1 mg by mouth twice jaleel* QUETIAPINE 100 MG TABLET Take 2 tablets by mouth daily* POTASSIUM CHLORIDE ER 8 MEQ C* take 1 capsule by mouth once * RIZATRIPTAN 10 MG TABLET Take 1 tablet by mouth at ons* ALENDRONATE 70 MG TABLET take 1 tablet by mouth ONCE E* OMEGA-3 FATTY ACIDS 1,000 MG * Take 2 capsules by mouth once* Progress Notes: Jayleen Gurrola PT 02/18/2018 2:29 PM Signed Episode Visit Count: 10 Therapist That Will Oversee The Plan Of Care: Jayleen Gurrola PT Start of Care Date: 12/18/17 Onset Date: 10/12/17 Plan of Care Certification Date: 02/12/18 Patient Identified by Name and Date of : Yes REHABILITATION AND SPORTS THERAPY PHYSICAL THERAPY TREATMENT NOTE ASSESSMENT: David eBrg demonstrated difficulty with walking for prolonged distances due to increase pain. Patient liked newly added foot intrinsic strengthening exercises. She was instructed not to do them more than 3 times per day as she has a tendency to over do exercises. Patient with a slight reduction in foot pain at end of treatment today. The patient will continue to benefit from continued skilled physical therapy for progression of exercises and manual retrograde massage for swelling reduction and pain control. PLAN FOR NEXT VISIT: Review TOGA exercises and progress ROM and strength of left foot and ankle. Pratice walking with a cane with correct mechanics. SUBJECTIVE: Patient reports temporary pain relief after last therapy. She reports the more she walks the more it hurts. She reports increase pain and swelling yesterday and today. Pain Score: 8/10 Pain Location: Foot - Left (top of foot and lateral foot) Description: Aching;Stiffness;Throbbing Frequency: Continuous Post Treatment Pain Score: 6/10 Pain Location: Foot - Left Post Treatment Pain Description: (decrease pain and looser) OBJECTIVE MEASURES WITH LEVEL OF FUNCTION: Improved heel to toe walk at end of treatment. TREATMENT: Therapeutic Exercise: 1: Seated AROM LEFT ankle df/pf,inv and evr x25 each. 2: Standing Gastroc stretch 30 sec, 3x 3: AROM left ankle circles cw and ccw 1x25 4: *TOGA toe exercise with toe abduction , toe extension and great toe extnesion with 2-4 press into floor. and 2nd-4th toe extension and 1st and fifth on floor x 10 each 6: Seated BAPS left PWB ball 3 A/P, lateral and cw and ccw 2x10 Skilled Intervention: Patient was educated in proper exercise technique and purpose for exercises. Reviewed and educated patient on additions/changes for home exercise program as above (*) Skilled judgment was provided in selection of appropriate interventions. Provided written instruction for home exercise program to facilitate proper performance and compliance. Correct performance of therapeutic exercises was facilitated with verbal and visual cuing. Manual Therapy: 1: left LE in elevation over large wedge bolster retrograde massage x 10 minutes with push to patient tolerance. 2: L ankle Posterior mobs prone lying with knee bent to help with DF, Grade I-II, 4x10 3: L ankle anterior mobs prone lying with knee bent to help with PF, Grade I-II, 4x10 5: L great toe dorsal (for extension) and plantar (for flexion) Grade I-II mobs 4x10 each to help improve toe off with gait Skilled Intervention: Manual skills to improve joint mobility, ROM, and decrease pain. Utilized anatomy knowledge of the therapist, and assessment of patient's response to intervention. Billing: [facility]: Therapeutic Exercise ([id number]): 1:1 time: 25 minutes (2 units: 23-37 mins) Manual Therapy ([id number]): 1:1 time: 20 minutes (1 unit: 8-22 mins) Total time: 45 minutes GREGORY Felix PT Previous Version Follow-up and Disposition History Recorded PROGRESS Observed: 02/12/2018 Status: COMPLETED Source: [place] 3:36 PM [facility] [place] REPOSITORY HNO ID: [id number] Author: Jayleen Gurrola Service: (none) Author Type: Physical Therapist Type: Progress Notes Filed: 02/16/2018 2:08 PM Note Text: Episode Visit Count: 9 Therapist That Will Oversee The Plan Of Care: Jayleen Gurrola PT Start of Care Date: 12/18/17 Onset Date: 10/12/17 Plan of Care Certification Date: 02/12/18 Patient Identified by Name and Date of : Yes REHABILITATION AND SPORTS THERAPY PHYSICAL THERAPY PROGRESS REPORT PLAN OF CARE UPDATE: Assessment: David Berg exhibits improvements in DF/PF/ and eversion by 5 degrees on her L ankle since starting therapy . She continues to be limited with walking, physical activities and carrying. She is progressing slower than expected towards her therapy goals as demonstrated by: pain levels and documented objective information regarding gait, range of motion, overall function and patient reported outcome measures. She will benefit from continued skilled therapy requiring manual, ther ex, gait, and neuro re-education in order to improve ROM, gait, and strength of L ankle. Patient liked the weight bearing gastroc stretch, so recommended she perform this at home. Functional gains: Increased independence with HEP Increased ROM Goals updated on 02/12/2018. [place] in home exercise program.--MET for current HEP Patient will decrease pain rating by 2 points to meet minimal clinical important difference for numeric pain rating scale. (Sitting 4/10 and Weightbearing 6/10)--Progressing Patient will increase active ROM of L ankle to equal R ankle to allow pt to to achieve neutral postural alignment, improved performance of ADLs and to normalize gait mechanics / gait pattern.--Progressing Patient will increase strength of L ankle to 5/5 to allow for return to prior functional status, normalized gait mechanics and perform ADLs.--Progressing Patient will increase flexibility of calf to WNL to improve ability to maintain proper posture, restore normal mechanics and decrease pain.--Progressing Perform walking without pain.--Progressing Demonstrate improvement on functional score: Patient will increase his/her score on the Lower Extremity Functional Scale by at least 9 points to indicate a Minimal Clinical Important Difference. (Goal: )--Progressing Normal gait.--Progressing Reciprocal stair negotiation.--Not MET Planned Interventions, Frequency, and Duration: 2x/week, 4 weeks Total Number of Visits Planned: 17 Patient to be seen for Therapeutic exercise;Neuromuscular re-education;Manual therapy;Self-mcfp management;Gait Training;Patient/Family/Caregiver Education;General Conditioning;Functional training PLAN FOR NEXT VISIT: Consider TOGA exercises. to help with toe pain.Con't with manual mobs and retrograde massage. Practice walking with correct mechanics. L ankle strengthening SUBJECTIVE: The massage helps for couple hours after PT and can walk a little longer. Patient got a script from and dropped at [facility] for compression stockings. Dr. Mckinney recommended 20-30mmHg. Pain Score: 7/10 Pain Location: Toe - Left (Big Toe of L foot and 2nd toe of L and MET heads) Description: Throbbing Frequency: Continuous OBJECTIVE MEASURES WITH LEVEL OF FUNCTION: LE AROM L Ankle Dorsiflexion: 15 Degrees L Ankle Plantar Flexion: 40 Degrees L Ankle Inversion: 21 L Ankle Eversion: 15 LE Strength L Ankle Dorsiflexion (L4): 3-/5 L Ankle Plantar Flexion: 3-/5 L Ankle Inversion: 3-/5 L Ankle Eversion: 3-/5 Gait Gait Observation: Patient has diffculty placing weight through her great toe for push off. Circumferential measurements taken at start of session Met heads=21cm Arch=21.6 cm Malleolus 21.7 cm Encouraged patient to keep her leg elevated. TREATMENT: Therapeutic Exercise: 1: Seated AROM LEFT anlke df/pf,inv and evr x25 each. 2: *Standing Gastroc stretch 30 sec, 3x 3: AROM left ankle circles cw and ccw 1x20 6: Seated BAPS left PWB ball 3 A/P, lateral and cw and ccw 2x10 (challening for lateral mov't) Skilled Intervention: Patient was educated in proper exercise technique and purpose for exercises. Reviewed and educated patient on additions/changes for home exercise program as above (*) Skilled judgment was provided in selection of appropriate interventions. Manual Therapy: 1: left LE in elevation over large wedge bolster retrograde massage x 10 minutes with push to patient tolerance. 2: L ankle Posterior mobs to help with DF, Grade I-II, 4x10 3: L ankle anterior mobs to help with PF, Grade I-II, 4x10 4: L ankle lateral (for inversion) and medial (for eversion) Grade I AND II gapping 4x10 each 5: L great toe dorsal (for extension) and plantar (for flexion) Grade I-II mobs 4x10 each to help improve toe off with gait 6: wrapped foot and ankle with soft compression velcro wrap Skilled Intervention: Manual skills to improve joint mobility, ROM, and decrease pain. Utilized anatomy knowledge of the therapist, and assessment of patient's response to intervention. Gait Trainin: Ambulation on level with no assistive device with no push off on left during swing through of gait. 2: Practiced ambulation with toe off but patient unable to perform d/t increased pain in L foot. Skilled Intervention: Facilitated proper gait cycle with the use of verbal and visual cues for correction of gait deviations identified in the objective section above. Billing: [facility]: Therapeutic Exercise ([id number]): 1:1 time: 15 minutes (1 unit: 8-22 mins) Manual Therapy ([id number]): 1:1 time: 22 minutes (1 unit: 8-22 mins) Gait Training ([id number]): 1:1 time: 8 minutes (1 unit: 8-22 mins) Total time: 45 minutes Jayleen Gurrola PT CNTHERAPY Observed: 02/12/2018 Status: COMPLETED Source: [place] 3:30 PM [facility] REPOSITORY OT/PT/Speech Visit (PTWS) DAVID BERG ([id number]) 1955 F Date Time Provider Department 02/12/18 3:30 PM JAYLEEN GURROLA (PT) PTWS Date Time Provider Department Center 02/12/2018 3:30 PM [id number], DIANA (PT)PTWS [facility] Reason for Visit: PT Progress Note [1596] Primary Visit Diagnosis:Acute left ankle pain [M25.572] Other Visit Diagnosis:Pain in toe of left foot [M79.675] Allergies As of Date: 02/12/2018 Noted Allergy Reaction CODEINE 10/26/2004 2 - Rash 9 - Itching DARVOCET A500 (PROPOXYPHENE N-JESSICA*10/26/2004 2 - Rash 9 - Itching DARVON (PROPOXYPHENE HCL) 10/26/2004 2 - Rash 9 - Itching DAYPRO (OXAPROZIN) 01/02/2005 2 - Rash EFFEXOR (VENLAFAXINE HCL) 01/02/2005 5 - Intolerance Comments: decreased libido FLEXERIL (CYCLOBENZAPRINE HCL) 01/02/2005 8 - GI Upset 11 - Vomiting GABAPENTIN 12/15/2015 1 - Mental Status Change Comments: hangover NORCO (HYDROCODONE-ACETAMINOPHEN) 01/02/2005 8 - GI Upset 9 - Itching Comments: nausea, itching OXYBUTYNIN 11/20/2011 14 - Other: See Comments Comments: Urinary retention PINE TREES (TREES) 12/07/2008 Comments: rash TALWIN (PENTAZOCINE LACTATE) 01/02/2005 9 - Itching Comments: GI upset ULTRAM (TRAMADOL HCL) 01/02/2005 8 - GI Upset VIOXX (ROFECOXIB) 01/02/2005 2 - Rash Date Reviewed: 01/15/2018 Reviewed by: Eloisa Maldonado - Fully Assessed Prescriptions as of 02/12/2018 Sig: CARISOPRODOL 350 MG TABLET Take 1 tablet by mouth three * TRETINOIN 0.025 % TOPICAL GEL Apply 1 application to affect* ATORVASTATIN 20 MG TABLET Take 1 tablet by mouth daily * ERGOCALCIFEROL (VITAMIN D2) 5* Take 1 capsule by mouth once * ABATACEPT (WITH MALTOSE) 250 * Inject 750 mg intravenously q* RIFAMPIN 150 MG CAPSULE Take 300 mg by mouth once nicki* CALCIUM CARBONATE 600 MG (1,5* Take 1 tablet by mouth once d* ROPINIROLE 1 MG TABLET Take 1 tablet by mouth daily * NICOTINE 10 MG INHALATION CAR* Inhale 2 Puffs as instructed * PROMETHAZINE 25 MG TABLET Take 1 tablet by mouth every * ONDANSETRON 4 MG DISINTEGRATI* Take 1 tablet by mouth every * ALPRAZOLAM 1 MG TABLET Take 1 mg by mouth twice jaleel* QUETIAPINE 100 MG TABLET Take 2 tablets by mouth daily* POTASSIUM CHLORIDE ER 8 MEQ C* take 1 capsule by mouth once * RIZATRIPTAN 10 MG TABLET Take 1 tablet by mouth at ons* ALENDRONATE 70 MG TABLET take 1 tablet by mouth ONCE E* OMEGA-3 FATTY ACIDS 1,000 MG * Take 2 capsules by mouth once* Progress Notes: Jayleen Gurrola, PT 02/16/2018 2:08 PM Signed Episode Visit Count: 9 Therapist That Will Oversee The Plan Of Care: Jayleen Gurrola PT Start of Care Date: 12/18/17 Onset Date: 10/12/17 Plan of Care Certification Date: 02/12/18 Patient Identified by Name and Date of : Yes REHABILITATION AND SPORTS THERAPY PHYSICAL THERAPY PROGRESS REPORT PLAN OF CARE UPDATE: Assessment: David Berg exhibits improvements in DF/PF/ and eversion by 5 degrees on her L ankle since starting therapy . She continues to be limited with walking, physical activities and carrying. She is progressing slower than expected towards her therapy goals as demonstrated by: pain levels and documented objective information regarding gait, range of motion, overall function and patient reported outcome measures. She will benefit from continued skilled therapy requiring manual, ther ex, gait, and neuro re-education in order to improve ROM, gait, and strength of L ankle. Patient liked the weight bearing gastroc stretch, so recommended she perform this at home. Functional gains: Increased independence with HEP Increased ROM Goals updated on 02/12/2018. [place] in home exercise program.--MET for current HEP Patient will decrease pain rating by 2 points to meet minimal clinical important difference for numeric pain rating scale. (Sitting 4/10 and Weightbearing 6/10)--Progressing Patient will increase active ROM of L ankle to equal R ankle to allow pt to to achieve neutral postural alignment, improved performance of ADLs and to normalize gait mechanics / gait pattern.--Progressing Patient will increase strength of L ankle to 5/5 to allow for return to prior functional status, normalized gait mechanics and perform ADLs.--Progressing Patient will increase flexibility of calf to WNL to improve ability to maintain proper posture, restore normal mechanics and decrease pain.--Progressing Perform walking without pain.--Progressing Demonstrate improvement on functional score: Patient will increase his/her score on the Lower Extremity Functional Scale by at least 9 points to indicate a Minimal Clinical Important Difference. (Goal: )--Progressing Normal gait.--Progressing Reciprocal stair negotiation.--Not MET Planned Interventions, Frequency, and Duration: 2x/week, 4 weeks Total Number of Visits Planned: 17 Patient to be seen for Therapeutic exercise;Neuromuscular re-education;Manual therapy;Self-mcfp management;Gait Training;Patient/Family/Caregiver Education;General Conditioning;Functional training PLAN FOR NEXT VISIT: Consider TOGA exercises. to help with toe pain.Con't with manual mobs and retrograde massage. Practice walking with correct mechanics. L ankle strengthening SUBJECTIVE: The massage helps for couple hours after PT and can walk a little longer. Patient got a script from and dropped at [facility] for compression stockings. Dr. Mckinney recommended 20-30mmHg. Pain Score: 7/10 Pain Location: Toe - Left (Big Toe of L foot and 2nd toe of L and MET heads) Description: Throbbing Frequency: Continuous OBJECTIVE MEASURES WITH LEVEL OF FUNCTION: LE AROM L Ankle Dorsiflexion: 15 Degrees L Ankle Plantar Flexion: 40 Degrees L Ankle Inversion: 21 L Ankle Eversion: 15 LE Strength L Ankle Dorsiflexion (L4): 3-/5 L Ankle Plantar Flexion: 3-/5 L Ankle Inversion: 3-/5 L Ankle Eversion: 3-/5 Gait Gait Observation: Patient has diffculty placing weight through her great toe for push off. Circumferential measurements taken at start of session Met heads=21cm Arch=21.6 cm Malleolus 21.7 cm Encouraged patient to keep her leg elevated. TREATMENT: Therapeutic Exercise: 1: Seated AROM LEFT anlke df/pf,inv and evr x25 each. 2: *Standing Gastroc stretch 30 sec, 3x 3: AROM left ankle circles cw and ccw 1x20 6: Seated BAPS left PWB ball 3 A/P, lateral and cw and ccw 2x10 (challening for lateral mov't) Skilled Intervention: Patient was educated in proper exercise technique and purpose for exercises. Reviewed and educated patient on additions/changes for home exercise program as above (*) Skilled judgment was provided in selection of appropriate interventions. Manual Therapy: 1: left LE in elevation over large wedge bolster retrograde massage x 10 minutes with push to patient tolerance. 2: L ankle Posterior mobs to help with DF, Grade I-II, 4x10 3: L ankle anterior mobs to help with PF, Grade I-II, 4x10 4: L ankle lateral (for inversion) and medial (for eversion) Grade I AND II gapping 4x10 each 5: L great toe dorsal (for extension) and plantar (for flexion) Grade I-II mobs 4x10 each to help improve toe off with gait 6: wrapped foot and ankle with soft compression velcro wrap Skilled Intervention: Manual skills to improve joint mobility, ROM, and decrease pain. Utilized anatomy knowledge of the therapist, and assessment of patient's response to intervention. Gait Trainin: Ambulation on level with no assistive device with no push off on left during swing through of gait. 2: Practiced ambulation with toe off but patient unable to perform d/t increased pain in L foot. Skilled Intervention: Facilitated proper gait cycle with the use of verbal and visual cues for correction of gait deviations identified in the objective section above. Billing: [facility]: Therapeutic Exercise ([id number]): 1:1 time: 15 minutes (1 unit: 8-22 mins) Manual Therapy ([id number]): 1:1 time: 22 minutes (1 unit: 8-22 mins) Gait Training ([id number]): 1:1 time: 8 minutes (1 unit: 8-22 mins) Total time: 45 minutes Jayleen Gurrola PT Follow-up and Disposition History Recorded Letter Text PROGRESS Observed: 02/10/2018 Status: COMPLETED Source: [place] 4:24 PM [facility] REPOSITORY HNO ID: [id number] Author: Jayleen Gurrola Service: (none) Author Type: Physical Therapist Type: Progress Notes Filed: 02/11/2018 7:39 AM Note Text: Episode Visit Count: 8 Therapist That Will Oversee The Plan Of Care: Jayleen Gurrola PT Start of Care Date: 12/18/17 Onset Date: 10/12/17 Plan of Care Certification Date: 12/18/17 Patient Identified by Name and Date of : Yes REHABILITATION AND SPORTS THERAPY PHYSICAL THERAPY TREATMENT NOTE ASSESSMENT: David Berg demonstrated improvements in pain reduction following exercises and manual therapy techniques. Patient with improved foot placement and gait with normal boots on today. The patient will continue to benefit from continued skilled physical therapy for progression of exercises and manual retrograde massage, PLAN FOR NEXT VISIT: POC update next visit: 02/12/18. Con't with exercise and manual to help improve ankle ROM. Retrograde massage SUBJECTIVE: Patient reports feeling about the same. Patient reports hurting distal achilles and across the toes. Patient reports doing okay with last therapy. Pain Score: 6/10 Pain Location: Foot - Left (achilles and around toes) Description: Aching Frequency: Continuous Post Treatment Pain Score: 4/10 Pain Location: Foot - Left Post Treatment Pain Description: Tingling OBJECTIVE MEASURES WITH LEVEL OF FUNCTION: Patient with improved foot placement and gait with normal boots on today. TREATMENT: Therapeutic Exercise: 1: Seated AROM LEFT anlke df/pf,inv and evr x25 each. 2: Long sitting strap assist gastroc stretch 3x30 seconds with instruction to stretch in pain free ROM. 3: AROM left ankle circles cw and ccw 1x20 4: Left seated toe towel scrunches x 2 minutes 5: Left ankle ABC'sx 1. 7: PROM left toe flexion 1-5 with 5 second hold x 3 each toe. 8: Yellow Rep band resistive Left aknle df,pf,inv and evr 2x10. Verbal cues for proper self performance of this exercise. Skilled Intervention: Patient was educated in proper exercise technique and purpose for exercises. Skilled judgment was provided in selection of appropriate interventions. Correct performance of therapeutic exercises was facilitated with verbal and visual cuing. Manual Therapy: 1: left LE in elevation over large wedge bolster retrograde massage x 10 minutes with push to patient tolerance. 2: Stool and strap assist left ankle Df and PF mobs 3x10 second holds. Skilled Intervention: Manual skills to improve joint mobility, ROM, and decrease pain. Utilized anatomy knowledge of the therapist, and assessment of patient's response to intervention. Billing: [facility]: Therapeutic Exercise ([id number]): 1:1 time: 33 minutes (2 units: 23-37 mins) Manual Therapy ([id number]): 1:1 time: 12 minutes (1 unit: 8-22 mins) Total time: 45 minutes Cat Villalobos PTAlferd Gurrola PT CNTHERAPY Observed: 02/10/2018 Status: COMPLETED Source: [place] 3:30 PM [facility] REPOSITORY OT/PT/Speech Visit (PTWS) DAVID BERG ([id number]) 1955 F Date Time Provider Department 02/10/18 3:30 PM CAT VILLALOBOS (ETHANOL OPERATOR) PTWS Date Time Provider Department Center 02/10/2018 3:30 PM [id number], NANCY (ETHANOL OPERATOR) PTWS [facility] Reason for Visit: Physical Therapy [503] Primary Visit Diagnosis:Acute left ankle pain [M25.572] Other Visit Diagnosis:Pain in toe of left foot [M79.675] Allergies As of Date: 02/10/2018 Noted Allergy Reaction CODEINE 10/26/2004 2 - Rash 9 - Itching DARVOCET A500 (PROPOXYPHENE N-JESSICA*10/26/2004 2 - Rash 9 - Itching DARVON (PROPOXYPHENE HCL) 10/26/2004 2 - Rash 9 - Itching DAYPRO (OXAPROZIN) 01/02/2005 2 - Rash EFFEXOR (VENLAFAXINE HCL) 01/02/2005 5 - Intolerance Comments: decreased libido FLEXERIL (CYCLOBENZAPRINE HCL) 01/02/2005 8 - GI Upset 11 - Vomiting GABAPENTIN 12/15/2015 1 - Mental Status Change Comments: hangover NORCO (HYDROCODONE-ACETAMINOPHEN) 01/02/2005 8 - GI Upset 9 - Itching Comments: nausea, itching OXYBUTYNIN 11/20/2011 14 - Other: See Comments Comments: Urinary retention PINE TREES (TREES) 12/07/2008 Comments: rash TALWIN (PENTAZOCINE LACTATE) 01/02/2005 9 - Itching Comments: GI upset ULTRAM (TRAMADOL HCL) 01/02/2005 8 - GI Upset VIOXX (ROFECOXIB) 01/02/2005 2 - Rash Date Reviewed: 01/15/2018 Reviewed by: Eloisa Maldonado - Fully Assessed Prescriptions as of 02/10/2018 Sig: CARISOPRODOL 350 MG TABLET Take 1 tablet by mouth three * TRETINOIN 0.025 % TOPICAL GEL Apply 1 application to affect* ATORVASTATIN 20 MG TABLET Take 1 tablet by mouth daily * ERGOCALCIFEROL (VITAMIN D2) 5* Take 1 capsule by mouth once * ABATACEPT (WITH MALTOSE) 250 * Inject 750 mg intravenously q* RIFAMPIN 150 MG CAPSULE Take 300 mg by mouth once nicki* CALCIUM CARBONATE 600 MG (1,5* Take 1 tablet by mouth once d* ROPINIROLE 1 MG TABLET Take 1 tablet by mouth daily * NICOTINE 10 MG INHALATION CAR* Inhale 2 Puffs as instructed * PROMETHAZINE 25 MG TABLET Take 1 tablet by mouth every * ONDANSETRON 4 MG DISINTEGRATI* Take 1 tablet by mouth every * ALPRAZOLAM 1 MG TABLET Take 1 mg by mouth twice jaleel* QUETIAPINE 100 MG TABLET Take 2 tablets by mouth daily* POTASSIUM CHLORIDE ER 8 MEQ C* take 1 capsule by mouth once * RIZATRIPTAN 10 MG TABLET Take 1 tablet by mouth at ons* ALENDRONATE 70 MG TABLET take 1 tablet by mouth ONCE E* OMEGA-3 FATTY ACIDS 1,000 MG * Take 2 capsules by mouth once* Progress Notes: Jayleen Gurrola PT 02/11/2018 7:39 AM Signed Episode Visit Count: 8 Therapist That Will Oversee The Plan Of Care: Jayleen Gurrola PT Start of Care Date: 12/18/17 Onset Date: 10/12/17 Plan of Care Certification Date: 12/18/17 Patient Identified by Name and Date of : Yes REHABILITATION AND SPORTS THERAPY PHYSICAL THERAPY TREATMENT NOTE ASSESSMENT: David Berg demonstrated improvements in pain reduction following exercises and manual therapy techniques. Patient with improved foot placement and gait with normal boots on today. The patient will continue to benefit from continued skilled physical therapy for progression of exercises and manual retrograde massage, PLAN FOR NEXT VISIT: POC update next visit: 02/12/18. Con't with exercise and manual to help improve ankle ROM. Retrograde massage SUBJECTIVE: Patient reports feeling about the same. Patient reports hurting distal achilles and across the toes. Patient reports doing okay with last therapy. Pain Score: 6/10 Pain Location: Foot - Left (achilles and around toes) Description: Aching Frequency: Continuous Post Treatment Pain Score: 4/10 Pain Location: Foot - Left Post Treatment Pain Description: Tingling OBJECTIVE MEASURES WITH LEVEL OF FUNCTION: Patient with improved foot placement and gait with normal boots on today. TREATMENT: Therapeutic Exercise: 1: Seated AROM LEFT anlke df/pf,inv and evr x25 each. 2: Long sitting strap assist gastroc stretch 3x30 seconds with instruction to stretch in pain free ROM. 3: AROM left ankle circles cw and ccw 1x20 4: Left seated toe towel scrunches x 2 minutes 5: Left ankle ABC'sx 1. 7: PROM left toe flexion 1-5 with 5 second hold x 3 each toe. 8: Yellow Rep band resistive Left aknle df,pf,inv and evr 2x10. Verbal cues for proper self performance of this exercise. Skilled Intervention: Patient was educated in proper exercise technique and purpose for exercises. Skilled judgment was provided in selection of appropriate interventions. Correct performance of therapeutic exercises was facilitated with verbal and visual cuing. Manual Therapy: 1: left LE in elevation over large wedge bolster retrograde massage x 10 minutes with push to patient tolerance. 2: Stool and strap assist left ankle Df and PF mobs 3x10 second holds. Skilled Intervention: Manual skills to improve joint mobility, ROM, and decrease pain. Utilized anatomy knowledge of the therapist, and assessment of patient's response to intervention. Billing: [facility]: Therapeutic Exercise ([id number]): 1:1 time: 33 minutes (2 units: 23-37 mins) Manual Therapy ([id number]): 1:1 time: 12 minutes (1 unit: 8-22 mins) Total time: 45 minutes Cat Villalobos PT-Love Gurrola PT Previous Version Follow-up and Disposition History Recorded PROGRESS Observed: 02/05/2018 Status: COMPLETED Source: [place] 3:44 PM [facility] REPOSITORY HNO ID: [id number] Author: Jayleen Gurrola Service: (none) Author Type: Physical Therapist Type: Progress Notes Filed: 02/07/2018 3:24 PM Note Text: Episode Visit Count: 7 Therapist That Will Oversee The Plan Of Care: Jayleen Gurrola PT Start of Care Date: 12/18/17 Onset Date: 10/12/17 Plan of Care Certification Date: 12/18/17 Patient Identified by Name and Date of : Yes REHABILITATION AND SPORTS THERAPY PHYSICAL THERAPY TREATMENT NOTE ASSESSMENT: David Berg demonstrated difficulty with DF of L foot and ability to walk with correct mechanics for heel strike and toe off. She had a cane but lost at [employer]. Recommend she get another cane and walk with a cane as not walking with proper form may cause potential knee/hip/low back pain. The patient will continue to benefit from continued skilled physical therapy for L ankle ROM and strengthening. PLAN FOR NEXT VISIT: Con't with L ankle ROM and strengthening. Practice walking with cane. POC update: 02/12/18 SUBJECTIVE: When got home from PT ankle swelled up again and was hurting. Patient lost her cane in [employer], so now is using a stick outside on her property. Doc took an impression of her foot to get a brace and told her it could take a year to stop swelling and walk correctly. Patient has a tubigrip she likes to use to help with swelling. Has pain in her R great toe. Patient will have brace in 4-6 weeks. Pain Score: 8/10 Pain Location: Foot - Left (top, across toes, and lateral side of foot) Description: Sore Frequency: Continuous Post Treatment Pain Score: 9/10 Pain Location: Foot - Left Post Treatment Pain Description: Sore OBJECTIVE MEASURES WITH LEVEL OF FUNCTION: LE PROM L Ankle Dorsiflexion: 10 Degrees L Ankle Plantar Flexion: 35 Degrees L Ankle Inversion: 20 Degrees L Ankle Eversion: 10 Degrees Gait Gait Observation: Antalgic gait on L entering session; lacking appropriate mechanics of heel strike and toe off. Recommendations for a 15-20mmHg Knee high Left Ankle= 25cm Calf= 28.2cm Length=~42 cm TREATMENT: Therapeutic Exercise: 1: Seated AROM LEFT anlke df/pf,inv and evr x24 each. New today: CW/CCW x24 (difficult going CCW) 2: Long sitting strap assist gastroc stretch 3x30 seconds with instruction to stretch in pain free ROM. 3: AROM left ankle circles cw and ccw 1x20 4: Left seated toe towel scrunches x 2 minutes 5: Left ankle ABC'sx 1. 8: *Yellow Rep band resistive Left aknle df,pf,inv and evr 1x10. (Difficult to perform DF. Issued yellow band.) Skilled Intervention: Patient was educated in proper exercise technique and purpose for exercises. Reviewed and educated patient on additions/changes for home exercise program as above (*) Skilled judgment was provided in selection of appropriate interventions. Provided written instruction for home exercise program to facilitate proper performance and compliance. Correct performance of therapeutic exercises was facilitated with verbal, visual and tactile cuing. Suggested using a frozen water bottle to roll L foot over Walking with cane as walks with antalgic gait on L. Patient was instructed she is not ready to walk without a cane. Manual Therapy: 2: L ankle Posterior mobs to help with DF, Grade I-II, 4x10 3: L ankle anterior mobs to help with PF, Grade I-II, 4x10 4: L ankle lateral (for inversion) and medial (for eversion) Grade I AND II gapping 4x10 each 5: L great toe dorsal (for extension) and plantar (for flexion) Grade I-II mobs 4x10 each to help improve toe off with gait Skilled Intervention: Manual skills to improve joint mobility, ROM, and decrease pain. Utilized anatomy knowledge of the therapist, and assessment of patient's response to intervention. Self-Fci Management: 1: Education on getting a compression stocking. Provided her with information on sizing. See objective section for measurements taken. Skilled Intervention: Education provided on compression stockings Billing: [facility]: Therapeutic Exercise ([id number]): 1:1 time: 22 minutes (1 unit: 8-22 mins) Manual Therapy ([id number]): 1:1 time: 12 minutes (1 unit: 8-22 mins) Educ Home Mgmt ([id number]): 1:1 time: 8 minutes (1 unit: 8-22 mins) Total time: 42 minutes Jayleen Gurrola PT CNTHERAPY Observed: 02/05/2018 Status: COMPLETED Source: [place] 3:30 PM [facility] [place] REPOSITORY OT/PT/Speech Visit (PTWS) DAVID BERG ([id number]) 1955 F Date Time Provider Department 02/05/18 3:30 PM JAYLEEN GURROLA (PT) PTWS Date Time Provider Department Center 02/05/2018 3:30 PM [id number], DIANA (PT)PTWS [facility] Reason for Visit: Physical Therapy [503] Primary Visit Diagnosis:Acute left ankle pain [M25.572] Other Visit Diagnosis:Pain in toe of left foot [M79.675] Allergies As of Date: 02/05/2018 Noted Allergy Reaction CODEINE 10/26/2004 2 - Rash 9 - Itching DARVOCET A500 (PROPOXYPHENE N-JESSICA*10/26/2004 2 - Rash 9 - Itching DARVON (PROPOXYPHENE HCL) 10/26/2004 2 - Rash 9 - Itching DAYPRO (OXAPROZIN) 01/02/2005 2 - Rash EFFEXOR (VENLAFAXINE HCL) 01/02/2005 5 - Intolerance Comments: decreased libido FLEXERIL (CYCLOBENZAPRINE HCL) 01/02/2005 8 - GI Upset 11 - Vomiting GABAPENTIN 12/15/2015 1 - Mental Status Change Comments: hangover NORCO (HYDROCODONE-ACETAMINOPHEN) 01/02/2005 8 - GI Upset 9 - Itching Comments: nausea, itching OXYBUTYNIN 11/20/2011 14 - Other: See Comments Comments: Urinary retention PINE TREES (TREES) 12/07/2008 Comments: rash TALWIN (PENTAZOCINE LACTATE) 01/02/2005 9 - Itching Comments: GI upset ULTRAM (TRAMADOL HCL) 01/02/2005 8 - GI Upset VIOXX (ROFECOXIB) 01/02/2005 2 - Rash Date Reviewed: 01/15/2018 Reviewed by: Eloisa Maldonado - Fully Assessed Prescriptions as of 02/05/2018 Sig: CARISOPRODOL 350 MG TABLET Take 1 tablet by mouth three * ATORVASTATIN 20 MG TABLET Take 1 tablet by mouth daily * ERGOCALCIFEROL (VITAMIN D2) 5* Take 1 capsule by mouth once * ABATACEPT (WITH MALTOSE) 250 * Inject 750 mg intravenously q* RIFAMPIN 150 MG CAPSULE Take 300 mg by mouth once nicki* CALCIUM CARBONATE 600 MG (1,5* Take 1 tablet by mouth once d* TRETINOIN 0.025 % TOPICAL GEL Apply 1 application to affect* ROPINIROLE 1 MG TABLET Take 1 tablet by mouth daily * NICOTINE 10 MG INHALATION CAR* Inhale 2 Puffs as instructed * PROMETHAZINE 25 MG TABLET Take 1 tablet by mouth every * ONDANSETRON 4 MG DISINTEGRATI* Take 1 tablet by mouth every * ALPRAZOLAM 1 MG TABLET Take 1 mg by mouth twice jaleel* QUETIAPINE 100 MG TABLET Take 2 tablets by mouth daily* POTASSIUM CHLORIDE ER 8 MEQ C* take 1 capsule by mouth once * RIZATRIPTAN 10 MG TABLET Take 1 tablet by mouth at ons* ALENDRONATE 70 MG TABLET take 1 tablet by mouth ONCE E* OMEGA-3 FATTY ACIDS 1,000 MG * Take 2 capsules by mouth once* Progress Notes: Jayleen Gurrola PT 02/07/2018 3:24 PM Signed Episode Visit Count: 7 Therapist That Will Oversee The Plan Of Care: Jayleen Gurrola PT Start of Care Date: 12/18/17 Onset Date: 10/12/17 Plan of Care Certification Date: 12/18/17 Patient Identified by Name and Date of : Yes REHABILITATION AND SPORTS THERAPY PHYSICAL THERAPY TREATMENT NOTE ASSESSMENT: David Berg demonstrated difficulty with DF of L foot and ability to walk with correct mechanics for heel strike and toe off. She had a cane but lost at [employer]. Recommend she get another cane and walk with a cane as not walking with proper form may cause potential knee/hip/low back pain. The patient will continue to benefit from continued skilled physical therapy for L ankle ROM and strengthening. PLAN FOR NEXT VISIT: Con't with L ankle ROM and strengthening. Practice walking with cane. POC update: 02/12/18 SUBJECTIVE: When got home from PT ankle swelled up again and was hurting. Patient lost her cane in [employer], so now is using a stick outside on her property. Doc took an impression of her foot to get a brace and told her it could take a year to stop swelling and walk correctly. Patient has a tubigrip she likes to use to help with swelling. Has pain in her R great toe. Patient will have brace in 4-6 weeks. Pain Score: 8/10 Pain Location: Foot - Left (top, across toes, and lateral side of foot) Description: Sore Frequency: Continuous Post Treatment Pain Score: 9/10 Pain Location: Foot - Left Post Treatment Pain Description: Sore OBJECTIVE MEASURES WITH LEVEL OF FUNCTION: LE PROM L Ankle Dorsiflexion: 10 Degrees L Ankle Plantar Flexion: 35 Degrees L Ankle Inversion: 20 Degrees L Ankle Eversion: 10 Degrees Gait Gait Observation: Antalgic gait on L entering session; lacking appropriate mechanics of heel strike and toe off. Recommendations for a 15-20mmHg Knee high Left Ankle= 25cm Calf= 28.2cm Length=~42 cm TREATMENT: Therapeutic Exercise: 1: Seated AROM LEFT anlke df/pf,inv and evr x24 each. New today: CW/CCW x24 (difficult going CCW) 2: Long sitting strap assist gastroc stretch 3x30 seconds with instruction to stretch in pain free ROM. 3: AROM left ankle circles cw and ccw 1x20 4: Left seated toe towel scrunches x 2 minutes 5: Left ankle ABC'sx 1. 8: *Yellow Rep band resistive Left aknle df,pf,inv and evr 1x10. (Difficult to perform DF. Issued yellow band.) Skilled Intervention: Patient was educated in proper exercise technique and purpose for exercises. Reviewed and educated patient on additions/changes for home exercise program as above (*) Skilled judgment was provided in selection of appropriate interventions. Provided written instruction for home exercise program to facilitate proper performance and compliance. Correct performance of therapeutic exercises was facilitated with verbal, visual and tactile cuing. Suggested using a frozen water bottle to roll L foot over Walking with cane as walks with antalgic gait on L. Patient was instructed she is not ready to walk without a cane. Manual Therapy: 2: L ankle Posterior mobs to help with DF, Grade I-II, 4x10 3: L ankle anterior mobs to help with PF, Grade I-II, 4x10 4: L ankle lateral (for inversion) and medial (for eversion) Grade I AND II gapping 4x10 each 5: L great toe dorsal (for extension) and plantar (for flexion) Grade I-II mobs 4x10 each to help improve toe off with gait Skilled Intervention: Manual skills to improve joint mobility, ROM, and decrease pain. Utilized anatomy knowledge of the therapist, and assessment of patient's response to intervention. Self-Fci Management: 1: Education on getting a compression stocking. Provided her with information on sizing. See objective section for measurements taken. Skilled Intervention: Education provided on compression stockings Billing: [facility]: Therapeutic Exercise ([id number]): 1:1 time: 22 minutes (1 unit: 8-22 mins) Manual Therapy ([id number]): 1:1 time: 12 minutes (1 unit: 8-22 mins) Educ Home Mgmt ([id number]): 1:1 time: 8 minutes (1 unit: 8-22 mins) Total time: 42 minutes Jayleen Gurrola PT PROGRESS Observed: 01/29/2018 Status: COMPLETED Source: [place] 7:15 PM [facility] [place] REPOSITORY HNO ID: [id number] Author: Jayleen (Kishan) [employer] Service: (none) Author Type: Physical Therapist Type: Progress Notes Filed: 01/31/2018 12:25 PM Note Text: Episode Visit Count: 6 Therapist That Will Oversee The Plan Of Care: Jayleen Gurrola PT Start of Care Date: 12/18/17 Onset Date: 10/12/17 Plan of Care Certification Date: 12/18/17 Patient Identified by Name and Date of : Yes REHABILITATION AND SPORTS THERAPY PHYSICAL THERAPY TREATMENT NOTE ASSESSMENT: David Berg demonstrated difficulty with increase tenderness top of left foot with passive flexion of 2nd toe. Patient continues to ambulate to department with no st cane but does report she is using it more at home. Patient still with difficulty putting full weight equally through her foot. Retrograde massage at end of therapy assisted patient with a reduction of pain. The patient will continue to benefit from continued skilled physical therapy for AROM, strengthening of left foot and ankle and manual techniques to assist with pain control. PLAN FOR NEXT VISIT: Monitor response to manual retrograde massage and exercises. Progress per patient tolerance. SUBJECTIVE: Patient reports iceing and elevating left ankle after last therapy which assisted with swelling. She would like to have retrograde massage following exercises today. Pain Score: 6/10 Pain Location: Foot - Left;Ankle - Left Description: Other: See comment (stinging pain top of left foot) Frequency: Continuous Post Treatment Pain Score: 5/10 Pain Location: Foot - Left;Ankle - Left Post Treatment Pain Description: Aching OBJECTIVE MEASURES WITH LEVEL OF FUNCTION: Tenderness top of left foot with passive flexion of 2nd toe. TREATMENT: Therapeutic Exercise: 1: AROM LEFT anlke df/pf,inv and evr 1x20 2: Long sitting strap assist gastroc stretch 3x30 seconds with instruction to stretch in pain free ROM. 3: AROM left ankle circles cw and ccw 1x20 4: Left seated toe towel scrunches x 1 minute 5: Left ankle ABC'sx 1. 6: Seated BAPS left PWB ball 2 A/P, lateral and cw and ccw 2x10. 7: PROM left toe flexion 1-5 with 5 second hold x 3 each toe. 8: Yellow Rep band resistive Left aknle df,pf,inv and evr 1x10. 9: Ambulation on level with no assistive device with verbal cues to increase weight bearing over arch of foot and paitient able to improve on this at end of traetment after manual therapy techniques. Skilled Intervention: Patient was educated in proper exercise technique and purpose for exercises. Skilled judgment was provided in selection of appropriate interventions. Correct performance of therapeutic exercises was facilitated with verbal and visual cuing. Manual Therapy: 1: left LE in elevation over large wedge bolster retrograde massage x 10 minutes with push to patient tolerance. Skilled Intervention: Manual skills to improve joint mobility, ROM, and decrease pain. Utilized anatomy knowledge of the therapist, and assessment of patient's response to intervention. Billing: [facility]: Therapeutic Exercise ([id number]): 1:1 time: 35 minutes (2 units: 23-37 mins) Manual Therapy ([id number]): 1:1 time: 10 minutes (1 unit: 8-22 mins) Total time: 45 minutes Cat Villalobos PTAlfred Gurrola PT CNTHERAPY Observed: 01/29/2018 Status: COMPLETED Source: [place] 4:30 PM [facility] REPOSITORY OT/PT/Speech Visit (PTWS) DAVID BERG ([id number]) 1955 F Date Time Provider Department 01/29/18 4:30 PM CAT VILLALOBOS (ETHANOL OPERATOR) PTWS Date Time Provider Department Center 01/29/2018 4:30 PM [id number], NANCY (ETHANOL OPERATOR) PTWS [facility] Reason for Visit: Physical Therapy [503] Primary Visit Diagnosis:Acute left ankle pain [M25.572] Other Visit Diagnosis:Pain in toe of left foot [M79.675] Allergies As of Date: 01/29/2018 Noted Allergy Reaction CODEINE 10/26/2004 2 - Rash 9 - Itching DARVOCET A500 (PROPOXYPHENE N-JESSICA*10/26/2004 2 - Rash 9 - Itching DARVON (PROPOXYPHENE HCL) 10/26/2004 2 - Rash 9 - Itching DAYPRO (OXAPROZIN) 01/02/2005 2 - Rash EFFEXOR (VENLAFAXINE HCL) 01/02/2005 5 - Intolerance Comments: decreased libido FLEXERIL (CYCLOBENZAPRINE HCL) 01/02/2005 8 - GI Upset 11 - Vomiting GABAPENTIN 12/15/2015 1 - Mental Status Change Comments: hangover NORCO (HYDROCODONE-ACETAMINOPHEN) 01/02/2005 8 - GI Upset 9 - Itching Comments: nausea, itching OXYBUTYNIN 11/20/2011 14 - Other: See Comments Comments: Urinary retention PINE TREES (TREES) 12/07/2008 Comments: rash TALWIN (PENTAZOCINE LACTATE) 01/02/2005 9 - Itching Comments: GI upset ULTRAM (TRAMADOL HCL) 01/02/2005 8 - GI Upset VIOXX (ROFECOXIB) 01/02/2005 2 - Rash Date Reviewed: 01/15/2018 Reviewed by: Eloisa Maldonado - Fully Assessed Prescriptions as of 01/29/2018 Sig: CARISOPRODOL 350 MG TABLET Take 1 tablet by mouth three * ATORVASTATIN 20 MG TABLET Take 1 tablet by mouth daily * ERGOCALCIFEROL (VITAMIN D2) 5* Take 1 capsule by mouth once * ABATACEPT (WITH MALTOSE) 250 * Inject 750 mg intravenously q* RIFAMPIN 150 MG CAPSULE Take 300 mg by mouth once nicki* CALCIUM CARBONATE 600 MG (1,5* Take 1 tablet by mouth once d* TRETINOIN 0.025 % TOPICAL GEL Apply 1 application to affect* ROPINIROLE 1 MG TABLET Take 1 tablet by mouth daily * NICOTINE 10 MG INHALATION CAR* Inhale 2 Puffs as instructed * PROMETHAZINE 25 MG TABLET Take 1 tablet by mouth every * ONDANSETRON 4 MG DISINTEGRATI* Take 1 tablet by mouth every * ALPRAZOLAM 1 MG TABLET Take 1 mg by mouth twice jaleel* QUETIAPINE 100 MG TABLET Take 2 tablets by mouth daily* POTASSIUM CHLORIDE ER 8 MEQ C* take 1 capsule by mouth once * RIZATRIPTAN 10 MG TABLET Take 1 tablet by mouth at ons* ALENDRONATE 70 MG TABLET take 1 tablet by mouth ONCE E* OMEGA-3 FATTY ACIDS 1,000 MG * Take 2 capsules by mouth once* Progress Notes: Jayleen Gurrola PT 01/31/2018 12:25 PM Signed Episode Visit Count: 6 Therapist That Will Oversee The Plan Of Care: Jayleen Gurrola PT Start of Care Date: 12/18/17 Onset Date: 10/12/17 Plan of Care Certification Date: 12/18/17 Patient Identified by Name and Date of : Yes REHABILITATION AND SPORTS THERAPY PHYSICAL THERAPY TREATMENT NOTE ASSESSMENT: David Berg demonstrated difficulty with increase tenderness top of left foot with passive flexion of 2nd toe. Patient continues to ambulate to department with no st cane but does report she is using it more at home. Patient still with difficulty putting full weight equally through her foot. Retrograde massage at end of therapy assisted patient with a reduction of pain. The patient will continue to benefit from continued skilled physical therapy for AROM, strengthening of left foot and ankle and manual techniques to assist with pain control. PLAN FOR NEXT VISIT: Monitor response to manual retrograde massage and exercises. Progress per patient tolerance. SUBJECTIVE: Patient reports iceing and elevating left ankle after last therapy which assisted with swelling. She would like to have retrograde massage following exercises today. Pain Score: 6/10 Pain Location: Foot - Left;Ankle - Left Description: Other: See comment (stinging pain top of left foot) Frequency: Continuous Post Treatment Pain Score: 5/10 Pain Location: Foot - Left;Ankle - Left Post Treatment Pain Description: Aching OBJECTIVE MEASURES WITH LEVEL OF FUNCTION: Tenderness top of left foot with passive flexion of 2nd toe. TREATMENT: Therapeutic Exercise: 1: AROM LEFT anlke df/pf,inv and evr 1x20 2: Long sitting strap assist gastroc stretch 3x30 seconds with instruction to stretch in pain free ROM. 3: AROM left ankle circles cw and ccw 1x20 4: Left seated toe towel scrunches x 1 minute 5: Left ankle ABC'sx 1. 6: Seated BAPS left PWB ball 2 A/P, lateral and cw and ccw 2x10. 7: PROM left toe flexion 1-5 with 5 second hold x 3 each toe. 8: Yellow Rep band resistive Left aknle df,pf,inv and evr 1x10. 9: Ambulation on level with no assistive device with verbal cues to increase weight bearing over arch of foot and paitient able to improve on this at end of traetment after manual therapy techniques. Skilled Intervention: Patient was educated in proper exercise technique and purpose for exercises. Skilled judgment was provided in selection of appropriate interventions. Correct performance of therapeutic exercises was facilitated with verbal and visual cuing. Manual Therapy: 1: left LE in elevation over large wedge bolster retrograde massage x 10 minutes with push to patient tolerance. Skilled Intervention: Manual skills to improve joint mobility, ROM, and decrease pain. Utilized anatomy knowledge of the therapist, and assessment of patient's response to intervention. Billing: [facility]: Therapeutic Exercise ([id number]): 1:1 time: 35 minutes (2 units: 23-37 mins) Manual Therapy ([id number]): 1:1 time: 10 minutes (1 unit: 8-22 mins) Total time: 45 minutes GREGORY Felix PT Previous Version Follow-up and Disposition History Recorded PROGRESS Observed: 01/28/2018 Status: COMPLETED Source: [place] 6:50 AM [facility] [place] REPOSITORY HNO ID: [id number] Author: Jayleen Gurrola Service: (none) Author Type: Physical Therapist Type: Progress Notes Filed: 01/28/2018 9:58 AM Note Text: Episode Visit Count: 5 Therapist That Will Oversee The Plan Of Care: Jayleen Gurrola PT Start of Care Date: 12/18/17 Onset Date: 10/12/17 Plan of Care Certification Date: 12/18/17 Patient Identified by Name and Date of : Yes REHABILITATION AND SPORTS THERAPY PHYSICAL THERAPY TREATMENT NOTE ASSESSMENT: David Berg demonstrated difficulty with walking with increase gait deviation with no assistive device. Patient able to improve push off and more normal gait with use of st cane and she was instructed to use cane at all times currently. Patient with no cane walks with pronation of left foot. Patient noted decrease pain top of foot following passive stretching of left toes into flexion. The patient will continue to benefit from continued skilled physical therapy for progression of gait, ROM of left toes and ankle and strength. PLAN FOR NEXT VISIT: Monitor and instruct for proper form with gait with straight cane and advance ROM and strengthening of left ankle and foot. SUBJECTIVE: Patient reports increase pain top of left foot since last seen. She also reports intermittent pain in left ankle as well. Patient reports she had some increase swelling but it is not bad today. Patient reports using a cane only on Saturday and has been going without a cane since that time. Pain Score: 6/10 Pain Location: Foot - Left;Ankle - Left Description: Aching;Shooting (shooting pain at times) Frequency: Continuous Post Treatment Pain Score: 7/10 Pain Location: Foot - Left;Ankle - Left Post Treatment Pain Description: Throbbing;Other: See comment (swollen) OBJECTIVE MEASURES WITH LEVEL OF FUNCTION: Patient with no assistive device ambulates with pronation of left foot with no push off over toes and with st cane ambulates with improved foot placement and push off over toes during swing through of gait. TREATMENT: Therapeutic Exercise: 1: AROM df/pf,inv and evr 2x15 2: Long sitting strap assist gastroc stretch 3x30 seconds with instruction to stretch in pain free ROM. 3: AROM left ankle circles cw and ccw 2x15 4: Left seated toe towel scrunches 1 minute x 2. 5: Left ankle ABC'sx 1. 6: Seated BAPS left PWB ball 2 A/P, lateral and cw and ccw 2x10. 7: *PROM right toe flexion 1-5 x 5 stretches each toe. 8: Instruction on ice and elevation at home to assist with edema control. Skilled Intervention: Patient was educated in proper exercise technique and purpose for exercises. Reviewed and educated patient on additions/changes for home exercise program as above (*) Skilled judgment was provided in selection of appropriate interventions. Correct performance of therapeutic exercises was facilitated with verbal and visual cuing. Billing: [facility]: Therapeutic Exercise ([id number]): 1:1 time: 42 minutes (3 units: 38-52 mins) Total time: 42 minutes GREGORY Felix PT CNTHERAPY Observed: 01/27/2018 Status: COMPLETED Source: [place] 3:30 PM [facility] [place] REPOSITORY OT/PT/Speech Visit (PTWS) DAVID BERG ([id number]) 1955 F Date Time Provider Department 01/27/18 3:30 PM CAT VILLALOBOS (ETHANOL OPERATOR) PTWS Date Time Provider Department Center 01/27/2018 3:30 PM [id number], NANCY (ETHANOL OPERATOR) PTWS [facility] Reason for Visit: Physical Therapy [503] Primary Visit Diagnosis:Acute left ankle pain [M25.572] Other Visit Diagnosis:Pain in toe of left foot [M79.675] Allergies As of Date: 01/27/2018 Noted Allergy Reaction CODEINE 10/26/2004 2 - Rash 9 - Itching DARVOCET A500 (PROPOXYPHENE N-JESSICA*10/26/2004 2 - Rash 9 - Itching DARVON (PROPOXYPHENE HCL) 10/26/2004 2 - Rash 9 - Itching DAYPRO (OXAPROZIN) 01/02/2005 2 - Rash EFFEXOR (VENLAFAXINE HCL) 01/02/2005 5 - Intolerance Comments: decreased libido FLEXERIL (CYCLOBENZAPRINE HCL) 01/02/2005 8 - GI Upset 11 - Vomiting GABAPENTIN 12/15/2015 1 - Mental Status Change Comments: hangover NORCO (HYDROCODONE-ACETAMINOPHEN) 01/02/2005 8 - GI Upset 9 - Itching Comments: nausea, itching OXYBUTYNIN 11/20/2011 14 - Other: See Comments Comments: Urinary retention PINE TREES (TREES) 12/07/2008 Comments: rash TALWIN (PENTAZOCINE LACTATE) 01/02/2005 9 - Itching Comments: GI upset ULTRAM (TRAMADOL HCL) 01/02/2005 8 - GI Upset VIOXX (ROFECOXIB) 01/02/2005 2 - Rash Date Reviewed: 01/15/2018 Reviewed by: Eloisa Maldonado - Fully Assessed Prescriptions as of 01/27/2018 Sig: CARISOPRODOL 350 MG TABLET Take 1 tablet by mouth three * ATORVASTATIN 20 MG TABLET Take 1 tablet by mouth daily * ERGOCALCIFEROL (VITAMIN D2) 5* Take 1 capsule by mouth once * ABATACEPT (WITH MALTOSE) 250 * Inject 750 mg intravenously q* RIFAMPIN 150 MG CAPSULE Take 300 mg by mouth once nicki* CALCIUM CARBONATE 600 MG (1,5* Take 1 tablet by mouth once d* TRETINOIN 0.025 % TOPICAL GEL Apply 1 application to affect* ROPINIROLE 1 MG TABLET Take 1 tablet by mouth daily * NICOTINE 10 MG INHALATION CAR* Inhale 2 Puffs as instructed * PROMETHAZINE 25 MG TABLET Take 1 tablet by mouth every * ONDANSETRON 4 MG DISINTEGRATI* Take 1 tablet by mouth every * ALPRAZOLAM 1 MG TABLET Take 1 mg by mouth twice jaleel* QUETIAPINE 100 MG TABLET Take 2 tablets by mouth daily* POTASSIUM CHLORIDE ER 8 MEQ C* take 1 capsule by mouth once * RIZATRIPTAN 10 MG TABLET Take 1 tablet by mouth at ons* ALENDRONATE 70 MG TABLET take 1 tablet by mouth ONCE E* OMEGA-3 FATTY ACIDS 1,000 MG * Take 2 capsules by mouth once* Progress Notes: Jayleen Gurrola PT 01/28/2018 9:58 AM Signed Episode Visit Count: 5 Therapist That Will Oversee The Plan Of Care: Jayleen Gurrola PT Start of Care Date: 12/18/17 Onset Date: 10/12/17 Plan of Care Certification Date: 12/18/17 Patient Identified by Name and Date of : Yes REHABILITATION AND SPORTS THERAPY PHYSICAL THERAPY TREATMENT NOTE ASSESSMENT: David Berg demonstrated difficulty with walking with increase gait deviation with no assistive device. Patient able to improve push off and more normal gait with use of st cane and she was instructed to use cane at all times currently. Patient with no cane walks with pronation of left foot. Patient noted decrease pain top of foot following passive stretching of left toes into flexion. The patient will continue to benefit from continued skilled physical therapy for progression of gait, ROM of left toes and ankle and strength. PLAN FOR NEXT VISIT: Monitor and instruct for proper form with gait with straight cane and advance ROM and strengthening of left ankle and foot. SUBJECTIVE: Patient reports increase pain top of left foot since last seen. She also reports intermittent pain in left ankle as well. Patient reports she had some increase swelling but it is not bad today. Patient reports using a cane only on Saturday and has been going without a cane since that time. Pain Score: 6/10 Pain Location: Foot - Left;Ankle - Left Description: Aching;Shooting (shooting pain at times) Frequency: Continuous Post Treatment Pain Score: 7/10 Pain Location: Foot - Left;Ankle - Left Post Treatment Pain Description: Throbbing;Other: See comment (swollen) OBJECTIVE MEASURES WITH LEVEL OF FUNCTION: Patient with no assistive device ambulates with pronation of left foot with no push off over toes and with st cane ambulates with improved foot placement and push off over toes during swing through of gait. TREATMENT: Therapeutic Exercise: 1: AROM df/pf,inv and evr 2x15 2: Long sitting strap assist gastroc stretch 3x30 seconds with instruction to stretch in pain free ROM. 3: AROM left ankle circles cw and ccw 2x15 4: Left seated toe towel scrunches 1 minute x 2. 5: Left ankle ABC'sx 1. 6: Seated BAPS left PWB ball 2 A/P, lateral and cw and ccw 2x10. 7: *PROM right toe flexion 1-5 x 5 stretches each toe. 8: Instruction on ice and elevation at home to assist with edema control. Skilled Intervention: Patient was educated in proper exercise technique and purpose for exercises. Reviewed and educated patient on additions/changes for home exercise program as above (*) Skilled judgment was provided in selection of appropriate interventions. Correct performance of therapeutic exercises was facilitated with verbal and visual cuing. Billing: [facility]: Therapeutic Exercise ([id number]): 1:1 time: 42 minutes (3 units: 38-52 mins) Total time: 42 minutes GREGORY Felix PT Previous Version Follow-up and Disposition History Recorded PROGRESS Observed: 01/24/2018 Status: COMPLETED Source: [place] 3:46 PM [facility] REPOSITORY HNO ID: [id number] Author: Jayleen (Kishan) [employer] Service: (none) Author Type: Physical Therapist Type: Progress Notes Filed: 01/26/2018 8:49 AM Note Text: Episode Visit Count: 4 Therapist That Will Oversee The Plan Of Care: Jayleen Gurrola PT Start of Care Date: 12/18/17 Onset Date: 10/12/17 Plan of Care Certification Date: 12/18/17 Patient Identified by Name and Date of : Yes REHABILITATION AND SPORTS THERAPY PHYSICAL THERAPY TREATMENT NOTE ASSESSMENT: David Berg demonstrated difficulty with walking initially with toe out on left and no push off. Patient was able to progress gait with // bar assist and st cane and had increase proper gait sequence with slight increase in pain. Patient is to continue to use st cane at home and keep working on proper gait per her pain tolerance and she understood. Patient very eager to ride her motorcycle and was instructed that this is not appropriate at current time. The patient will continue to benefit from continued skilled physical therapy for progression of strengthening and gait for left ankle. PLAN FOR NEXT VISIT: Continue with gait, intrinsic foot strengthening and activie exercises. SUBJECTIVE: Patient reports the left ankle is not feeling bad today. Patient reports she has been wearing brace and Ryka slip on sandle today with no increase in pain. Patient reports her foot Dr faxed order to therapy for progression of exercises and weight bearing. This is the same order that we had recieved previously for progression of exercises. Pain Score: 4/10 Pain Location: Ankle - Left Description: Aching;Sore (intermittent sharp pain top of foot.) Frequency: Continuous Post Treatment Pain Score: 5/10 Pain Location: Ankle - Left Post Treatment Pain Description: Aching OBJECTIVE MEASURES WITH LEVEL OF FUNCTION: Radiology US findings on 01/21/2018 ANTERIOR TALOFIBULAR LIGAMENT AND CALCANEOFIBULAR LIGAMENT INJURIES. THICKENING AND HYPEREMIA OF THE PERONEAL RETINACULUM CONSISTENT WITH MODERATE GRADE INJURY. NORMAL DYNAMIC EVALUATION OF THE PERONEAL TENDONS. Improved gait WBAT left foot out of boot at end of treatment today. TREATMENT: Therapeutic Exercise: 1: AROM df/pf,inv and evr 2x10 2: Long sitting strap assist gastroc stretch 3x30 seconds with instruction to stretch in pain free ROM. 3: AROM left ankle circles cw and ccw 2x10 4: Left seated toe towel scrunches 1 minute x 1 and 30 seconds x 1. 5: Left ankle ABC's in elevation x 1. 6: Seated BAPS left PWB ball 2 A/P, lateral and cw and ccw 2x10. Skilled Intervention: Patient was educated in proper exercise technique and purpose for exercises. Skilled judgment was provided in selection of appropriate interventions. Correct performance of therapeutic exercises was facilitated with verbal and visual cuing. Gait Trainin: Gait on level with tennis shoe on right and slip on shoe/sandle on left on level surface using // bars for assist for proper gait sequence. 2: Progressed to st cane on level with emphasis on left heel strike,foot flat and push off during swing through of gait. Patient was able to do this with cueing and slight increase in pain. Skilled Intervention: Patient was provided supervision during pre-gait/gait training to prevent falls and insure safety. Gait belt utilized during session for safety. Skilled judgment used to assess proper use of assistive device. Billing: [facility]: Therapeutic Exercise ([id number]): 1:1 time: 33 minutes (2 units: 23-37 mins) Gait Training ([id number]): 1:1 time: 10 minutes (1 unit: 8-22 mins) Total time: 43 minutes Cat Villalobos PTAlfred Gurrola PT CNTHERAPY Observed: 01/24/2018 Status: COMPLETED Source: [place] 3:30 PM [facility] REPOSITORY OT/PT/Speech Visit (PTWS) DAVID BERG ([id number]) 1955 F Date Time Provider Department 01/24/18 3:30 PM CAT VILLALOBOS (ETHANOL OPERATOR) PTWS Date Time Provider Department Center 01/24/2018 3:30 PM [id number], NANCY (ETHANOL OPERATOR) PTWS [facility] Reason for Visit: Physical Therapy [503] Primary Visit Diagnosis:Acute left ankle pain [M25.572] Other Visit Diagnosis:Pain in toe of left foot [M79.675] Allergies As of Date: 01/24/2018 Noted Allergy Reaction CODEINE 10/26/2004 2 - Rash 9 - Itching DARVOCET A500 (PROPOXYPHENE N-JESSICA*10/26/2004 2 - Rash 9 - Itching DARVON (PROPOXYPHENE HCL) 10/26/2004 2 - Rash 9 - Itching DAYPRO (OXAPROZIN) 01/02/2005 2 - Rash EFFEXOR (VENLAFAXINE HCL) 01/02/2005 5 - Intolerance Comments: decreased libido FLEXERIL (CYCLOBENZAPRINE HCL) 01/02/2005 8 - GI Upset 11 - Vomiting GABAPENTIN 12/15/2015 1 - Mental Status Change Comments: hangover NORCO (HYDROCODONE-ACETAMINOPHEN) 01/02/2005 8 - GI Upset 9 - Itching Comments: nausea, itching OXYBUTYNIN 11/20/2011 14 - Other: See Comments Comments: Urinary retention PINE TREES (TREES) 12/07/2008 Comments: rash TALWIN (PENTAZOCINE LACTATE) 01/02/2005 9 - Itching Comments: GI upset ULTRAM (TRAMADOL HCL) 01/02/2005 8 - GI Upset VIOXX (ROFECOXIB) 01/02/2005 2 - Rash Date Reviewed: 01/15/2018 Reviewed by: Eloisa Maldonado - Fully Assessed Prescriptions as of 01/24/2018 Sig: CARISOPRODOL 350 MG TABLET Take 1 tablet by mouth three * ATORVASTATIN 20 MG TABLET Take 1 tablet by mouth daily * ERGOCALCIFEROL (VITAMIN D2) 5* Take 1 capsule by mouth once * ABATACEPT (WITH MALTOSE) 250 * Inject 750 mg intravenously q* RIFAMPIN 150 MG CAPSULE Take 300 mg by mouth once nicki* CALCIUM CARBONATE 600 MG (1,5* Take 1 tablet by mouth once d* TRETINOIN 0.025 % TOPICAL GEL Apply 1 application to affect* ROPINIROLE 1 MG TABLET Take 1 tablet by mouth daily * NICOTINE 10 MG INHALATION CAR* Inhale 2 Puffs as instructed * PROMETHAZINE 25 MG TABLET Take 1 tablet by mouth every * ONDANSETRON 4 MG DISINTEGRATI* Take 1 tablet by mouth every * ALPRAZOLAM 1 MG TABLET Take 1 mg by mouth twice jaleel* QUETIAPINE 100 MG TABLET Take 2 tablets by mouth daily* POTASSIUM CHLORIDE ER 8 MEQ C* take 1 capsule by mouth once * RIZATRIPTAN 10 MG TABLET Take 1 tablet by mouth at ons* ALENDRONATE 70 MG TABLET take 1 tablet by mouth ONCE E* OMEGA-3 FATTY ACIDS 1,000 MG * Take 2 capsules by mouth once* Progress Notes: Jayleen Gurrola PT 01/26/2018 8:49 AM Signed Episode Visit Count: 4 Therapist That Will Oversee The Plan Of Care: Jayleen Gurrola PT Start of Care Date: 12/18/17 Onset Date: 10/12/17 Plan of Care Certification Date: 12/18/17 Patient Identified by Name and Date of : Yes REHABILITATION AND SPORTS THERAPY PHYSICAL THERAPY TREATMENT NOTE ASSESSMENT: David Berg demonstrated difficulty with walking initially with toe out on left and no push off. Patient was able to progress gait with // bar assist and st cane and had increase proper gait sequence with slight increase in pain. Patient is to continue to use st cane at home and keep working on proper gait per her pain tolerance and she understood. Patient very eager to ride her motorcycle and was instructed that this is not appropriate at current time. The patient will continue to benefit from continued skilled physical therapy for progression of strengthening and gait for left ankle. PLAN FOR NEXT VISIT: Continue with gait, intrinsic foot strengthening and activie exercises. SUBJECTIVE: Patient reports the left ankle is not feeling bad today. Patient reports she has been wearing brace and Ryka slip on sandle today with no increase in pain. Patient reports her foot Dr shepard order to therapy for progression of exercises and weight bearing. This is the same order that we had recieved previously for progression of exercises. Pain Score: 4/10 Pain Location: Ankle - Left Description: Aching;Sore (intermittent sharp pain top of foot.) Frequency: Continuous Post Treatment Pain Score: 5/10 Pain Location: Ankle - Left Post Treatment Pain Description: Aching OBJECTIVE MEASURES WITH LEVEL OF FUNCTION: Radiology US findings on 01/21/2018 ANTERIOR TALOFIBULAR LIGAMENT AND CALCANEOFIBULAR LIGAMENT INJURIES. THICKENING AND HYPEREMIA OF THE PERONEAL RETINACULUM CONSISTENT WITH MODERATE GRADE INJURY. NORMAL DYNAMIC EVALUATION OF THE PERONEAL TENDONS. Improved gait WBAT left foot out of boot at end of treatment today. TREATMENT: Therapeutic Exercise: 1: AROM df/pf,inv and evr 2x10 2: Long sitting strap assist gastroc stretch 3x30 seconds with instruction to stretch in pain free ROM. 3: AROM left ankle circles cw and ccw 2x10 4: Left seated toe towel scrunches 1 minute x 1 and 30 seconds x 1. 5: Left ankle ABC's in elevation x 1. 6: Seated BAPS left PWB ball 2 A/P, lateral and cw and ccw 2x10. Skilled Intervention: Patient was educated in proper exercise technique and purpose for exercises. Skilled judgment was provided in selection of appropriate interventions. Correct performance of therapeutic exercises was facilitated with verbal and visual cuing. Gait Trainin: Gait on level with tennis shoe on right and slip on shoe/sandle on left on level surface using // bars for assist for proper gait sequence. 2: Progressed to st cane on level with emphasis on left heel strike,foot flat and push off during swing through of gait. Patient was able to do this with cueing and slight increase in pain. Skilled Intervention: Patient was provided supervision during pre-gait/gait training to prevent falls and insure safety. Gait belt utilized during session for safety. Skilled judgment used to assess proper use of assistive device. Billing: [facility]: Therapeutic Exercise (44936): 1:1 time: 33 minutes (2 units: 23-37 mins) Gait Training (46014): 1:1 time: 10 minutes (1 unit: 8-22 mins) Total time: 43 minutes Cat Villalobos PT-Love Gurrola PT Previous Version Follow-up and Disposition History Recorded PROGRESS Observed: 01/24/2018 Status: COMPLETED Source: [place] 10:48 AM [facility] REPOSITORY HNO ID: [id number] Author: Eloisa Izaguirre Psr Service: (none) Author Type: (none) Type: Progress Notes Filed: 01/24/2018 10:48 AM Note Text: Pap logged and normal pap letter mailed to patient. Eloisa Izaguirre Psr US ANKLE LT Observed: 01/21/2018 Status: F Source: [place] 1:10 PM [facility] REPOSITORY * * *Final Report* * * DATE OF EXAM: Jan 21 2018 1:10PM RIOS 1139 - US ANKLE LT / PROCEDURE REASON: m25.572 m76.72 m77.42 * * * * Physician Interpretation * * * * LEFT LATERAL ANKLE ULTRASOUND: CLINICAL INFORMATION: Injury to left foot on 10/12/2017. TECHNIQUE: Loza-scale real-time ultrasound of the lateral ankle with dynamic imaging and power Doppler was performed. Images were archived for documentation. COMPARISON: Outside CT scan. FINDINGS: AREA OF PAIN/SYMPTOMS: Lateral ankle, around lateral malleolus. PERONEUS TENDONS: The peroneus longus and brevis tendons are intact. The peroneal retinaculum is moderately thickened and heterogeneous at the fibular attachment. There is mild surrounding soft tissue edema consistent with injury. Hyperemia in and around the retinaculum noted. There is normal dynamic motion. No fluid in, or nodularity to the tendon sheaths. The musculotendinous junctions are unremarkable. JOINT SPACES/LATERAL LIGAMENTS: The anterior tibiofibular is intact. The calcaneofibular ligament looks heterogeneous and thickened with mild hyperemia. There is thickening of the anterior talofibular ligament by the lateral malleolus and nonvisualization of the ligament by talus. Dynamic evaluation of the ATFL shows tear of the ligament. No dynamic anterior impingement is present. INFERIOR INTEROSSEOUS MEMBRANE: Unremarkable. SOFT TISSUES: There is swelling of the soft tissue noted. No soft tissue masses or fluid collections. IMPRESSION: ANTERIOR TALOFIBULAR LIGAMENT AND CALCANEOFIBULAR LIGAMENT INJURIES. THICKENING AND HYPEREMIA OF THE PERONEAL RETINACULUM CONSISTENT WITH MODERATE GRADE INJURY. NORMAL DYNAMIC EVALUATION OF THE PERONEAL TENDONS. Creative Developer: ALEXEI Transcribe Date/Time: Jan 21 2018 1:24P Dictated by : KALEN PEOPLES MD This examination was interpreted and the report reviewed and electronically signed by: KALEN PEOPLES MD on Jan 21 2018 3:23PM EST [id number] PROGRESS Observed: 01/15/2018 Status: COMPLETED Source: [place] 4:46 PM [facility] [place] REPOSITORY [facility] ID: [id number] Author: Jayleen (Pt) Galileo Service: (none) Author Type: Physical Therapist Type: Progress Notes Filed: 01/16/2018 12:12 PM Note Text: Episode Visit Count: 3 Therapist That Will Oversee The Plan Of Care: Jayleen Gurrola PT Start of Care Date: 12/18/17 Onset Date: 10/12/17 Plan of Care Certification Date: 12/18/17 [facility] PHYSICAL THERAPY PROGRESS REPORT PLAN OF CARE UPDATE: Assessment: David Berg exhibits difficulty with being able to place weight through her LE without her boot on due to doctors still trying to determine if she has another fracture. She has a diagnostic US she has to have done prior to increasing weight through foot without her boot on. She continues to be limited with walking, walking in the house and physical activities. She is progressing slower than expected towards her therapy goals as demonstrated by: documented subjective information on progress and documented objective information regarding gait, range of motion and overall function. She will benefit from continued skilled therapy requiring ther ex, manual, neuro and gait training in order to improve ROM, strength, balance, and gait. David Berg demonstrated difficulty with soreness in foot after last visit. She feels swelling is better since last seen. She noted fatigue with exercises today. Following retrograde massage patient felt numbness and tingling in toes. Functional gains: None at this time Goals updated on 01/15/2018. [place] in home exercise program.--MET for current HEP Patient will decrease pain rating by 2 points to meet minimal clinical important difference for numeric pain rating scale. (Sitting 4/10 and Weightbearing 6/10)--Progressing Patient will increase active ROM of L ankle to equal R ankle to allow pt to to achieve neutral postural alignment, improved performance of ADLs and to normalize gait mechanics / gait pattern.--NT Patient will increase strength of L ankle to 5/5 to allow for return to prior functional status, normalized gait mechanics and perform ADLs.--Progressing Patient will increase flexibility of calf to WNL to improve ability to maintain proper posture, restore normal mechanics and decrease pain.--Progressing Perform walking without pain.--Not able to put weight through leg yet. Demonstrate improvement on functional score: Patient will increase his/her score on the Lower Extremity Functional Scale by at least 9 points to indicate a Minimal Clinical Important Difference. (Goal: )--NT Normal gait.--Not MET Reciprocal stair negotiation.--Not MET Planned Interventions, Frequency, and Duration: 2x/week, 5 weeks Total Number of Visits Planned: 13 Patient to be seen for Therapeutic exercise;Neuromuscular re-education;Manual therapy;Self-mcfp management;Gait Training;Patient/Family/Caregiver Education;General Conditioning;Functional training PLAN FOR NEXT VISIT: Continue with NWB exercise and retrograde massage. Possibly add seated BAPS. SUBJECTIVE: Patient reports being sore in the evening after last therapy and better again today. Pain Score: 5/10 Pain Location: Foot - Left;Toe - Left (lateral foot and 5th toe) Description: Aching Frequency: Continuous Post Treatment Pain Score: No Change Pain Location: Foot - Left;Toe - Left (lateral foot and 5th toe) Post Treatment Pain Description: (tingling and numb toes and top of foot.) OBJECTIVE MEASURES WITH LEVEL OF FUNCTION: LE AROM L Ankle Dorsiflexion: 0 Degrees L Ankle Plantar Flexion: 30 Degrees L Ankle Inversion: 2 L Ankle Eversion: 2 LE Strength L LE Strength: not tested due to lack of ROM improved AROM of toes on left with towel toe scrunches. TREATMENT: Therapeutic Exercise: 1: AROM df/pf,inv and evr in elevation with leg over large wedge bolster 1x15 2: Long sitting strap assist gastroc stretch 3x20 seconds with instruction to stretch in pain free ROM. 3: AROM left ankle circles cw and ccw x 15 in elevation. 4: Left seated toe towel scrunches 3x30 seconds. 5: Left ankle ABC's in elevation x 1. Skilled Intervention: Patient was educated in proper exercise technique and purpose for exercises. Skilled judgment was provided in selection of appropriate interventions. Correct performance of therapeutic exercises was facilitated with verbal cuing. Manual Therapy: 1: left LE in elevation over large wedge bolster retrograde massage x 13 minutes with push to patient tolerance. Skilled Intervention: Manual skills to improve joint mobility, ROM, and decrease pain. Utilized anatomy knowledge of the therapist, and assessment of patient's response to intervention. Billing: [facility]: Therapeutic Exercise ([id number]): 1:1 time: 25 minutes (2 units: 23-37 mins) Manual Therapy (45150): 1:1 time: 13 minutes (1 unit: 8-22 mins) Total time: 38 minutes Cat Villalobos PT-Love Gurrola, PT HPV W/GENOTYPE Collected: 01/15/2018 Status: F Source: [place] 4:19 PM [facility] REPOSITORY TYPE CODE TESTS RESULT OUT OF REFERENCE UNITS RANGE LAB HPVT16 HPV HighRisk Negative for Type 16 HPV DNA high risk type 16 by PCR. LAB HPVT18 HPV HighRisk Negative for Type 18 HPV DNA high risk type 18 by PCR. LAB HPVHRO HPV HighRisk Negative for Other HPV DNA high risk types: 31,33,35,39,45 ,51,52,56,58,5 9,66,68 by PCR. Result Comment: This test was developed and its performance characteristics determined by [facility]'s Nnamdi Martines [facility] Pathology and Laboratory Medicine [place] ([facility]). It has not been cleared or approved by the FDA. [facility] is regulated under CLIA as qualified to perform high-complexity testing. This test is used for clinical purposes. It should not be regarded as inv estigational or for research. Performed By: #### HPVHRR #### [facility] [address] [id number] CYTOLOGY Observed: 01/15/2018 Status: C Source: [place] 4:19 [facility] REPOSITORY ADDITIONAL PROCEDURES PRESENT Specimen originated from [facility] Specimen #: [id number] Submitting Physician: ELOISA MALDONADO CNP SPECIMEN SUBMITTED A: CERVICAL, SCREENING, FLUID FINAL DIAGNOSIS A. CERVICAL, SCREENING, FLUID Satisfactory for interpretation. No endocervical component. Negative for intraepithelial lesion or malignancy. Acute inflammation. This specimen has been analyzed by the ThinPrep Imaging System, an automated imaging and review system, which assists the laboratory in evaluating cells on ThinPrep Pap tests. Following automated imaging, selected ferrell from every slide are reviewed by a material specialist. PIERCE Villatoro(ASCP) (Electronic Signature) ADDITIONAL PROCEDURE(S) HUMAN PAPILLOMA VIRUS Date Ordered: 01/17/2018 Date Reported: 01/20/2018 Procedure Results and Interpretation Negative for HPV DNA high risk type 16 by PCR. Negative for HPV DNA high risk type 18 by PCR. Negative for HPV DNA high risk types: 31,33,35,39,45,51,52,56,58,59,66,68 by PCR. This test was developed and its performance characteristics determined by [facility]'s [facility]namdi [facility] [place] ([facility]). It has not been cleared or approved by the FDA. [facility] is regulated under CLIA as qualified to perform high-complexity testing. This test is used for clinical purposes. It should not be regarded as investigational or for research. CLINICAL DATA ROUTINE EXAM, HPV Testing: Yes, automatic HPV patients over 30 Date of Last Menstrual Period: Postmenopausal STAINS A: CERVICAL, SCREENING, FLUID THIN PREP MAILROOM CLERK Leta Gallegos M.D., Bottom Worker Date of Report: 01/24/2018 Date of Procedure: 01/15/2018 Date of Receipt: 01/17/2018 Submitted by: ELOISA MALDONADO CNP Location: [facility] Diagnostic interpretation performed at [facility], [address] [place] [address]. The Pap Smear is a screening test for cervical cancer. False negative results occur with all screening tests, emphasizing the need for rescreening at recommended intervals, and clinical correlation. CNOV Observed: 01/15/2018 Status: COMPLETED Source: [place] 4:00 PM [facility] REPOSITORY Office Visit (WOOB) DAVID BERG Marcus ([id number]) 1955 F Date Time Provider Department 01/15/18 4:00 PM ELOISA MALDONADO (SURVEILLANCE SPECIALIST) WOOB During your visit today, we recorded the following information about you: Blood pressure Weight Height 124/80 68 kg 1.63 m Eloisa Maldonado APRN.CNP 01/15/2018 4:55 PM Signed David Velazquez Otis is a 62 year old who presents for her annual gynecologic exam without complaints. Postmenopausal: Yes since age 51 HRT use: Yes, oral How lon years. Last Pap: 2012 normal HPV: 2012 negative History of abnormal pap: Yes, needed several repeat Paps until normal Last mammogram: 2012 normal History of abnormal mammogram: No Sexually active: No Exercise: foot broken Diet: not very balanced Obstetric History T2 L2 SAB0 TAB4 Ectopic0 Multiple0 Live Births0 PAST MEDICAL HISTORY Diagnosis Date - Acute hepatitis C without mention of hepatic coma(070.51) - Anxiety state 05/29/2005 Dr. Connor Davis 02/16/2013 - Cervical vertebral fracture (HCC) 05/07/2011 - Chronic obstructive pulmonary disease (COPD) (HCC) - Cleft lip, unspecified 01/24/2005 - Contact dermatitis and other eczema, due to unspecified cause 09/07/2011 - DDD (degenerative disc disease), cervical 05/07/2011 - Depressive disorder, not elsewhere classified - Epileptic petit mal status (HCC) - Generalized osteoarthrosis, unspecified site neck - HEPATITIS C CARRIER--treated with IFN and ribavirin and is in remission (as of 05/21) 05/29/2005 - HNP (herniated nucleus pulposus), lumbar 06/27/2015 - Hyperlipidemia - Migraine headache 02/15/2012 - 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 Choi-ID - Psoriasis - Rheumatoid arthritis involving multiple sites with positive rheumatoid factor ([facility]) 12/13/[address] Bowden - RLS (restless legs syndrome) 08/29/2011 - Vitamin D deficiency PAST SURGICAL HISTORY Procedure Laterality Date - COCHLEAR IMPLANT HX - COLONOSCOP W/ OR W/O BRSH SPEC 10/11/2009 Colonoscopy - OPEN RX NOSE FRACTURE x2 no breathing problems - PAST SURGICAL HISTORY OF X 2 - PAST SURGICAL HISTORY OF FACIAL RECONSTRUCTION - PAST SURGICAL HISTORY OF 1997 BILAT. SHOULDER SURGERY - PAST SURGICAL HISTORY OF 1994 CERVICAL SPINE FUSION C4, C5 (had cervical fx x3 - even after repair) - PAST SURGICAL HISTORY OF 1969 LEFT EAR CHOLESTEATOMA - PAST SURGICAL HISTORY OF CLEFT LIP - PAST SURGICAL HISTORY OF REBUILD JAW - PAST SURGICAL HISTORY OF 02/2006 lasik - PAST SURGICAL HISTORY OF 2004 bladder sling - TRACHEOSTOMY,EMERG,XTRACH age 3 or 4 during surgery; lost airway FAMILY HISTORY Problem Relation Age of Onset - Stroke Mother - Hypertension Mother - Diabetes Father - Cancer Father melanoma - Cancer Sister thyroid - Cancer Brother 21 testicular - Breast Cancer Sister - Breast Cancer Sister - Breast Cancer Maternal Aunt - Cancer Other Y-qcrgco-Okvfmvmasd SOCIAL HISTORY Social History Substance Use Topics - Smoking status: Former Smoker Packs/day: 1.00 Years: 30.00 Types: Cigarettes, Pipe Quit date: 06/02/2017 - Smokeless tobacco: Never Used Comment: vapes - Alcohol use No REVIEW OF SYSTEMS Abdomen: No abdominal pain, nausea, vomiting, diarrhea, or constipation. No bloating, early satiety, indigestion, or increased flatulence. Bladder: No dysuria, gross hematuria, urinary frequency, urinary urgency, or incontinence Breast: No breast lumps, nipple d/c, overlying skin changes, redness or skin retraction Allergies and current medication updated:Yes EXAM: BP 124/80 Ht 5' 4.173 (1.63m) Wt 150 lb (68.0kg) BMI 25.61 kg/(m2). GENERAL: pleasant, female in no apparent distress HEENT: Normocephalic, atraumatic, mucus membranes moist and no lesions NECK: Supple, full range of motion, no adenopathy and thyroid normal DERMATOLOGY: Normal, without lesions, non-icteric and non-hirsute BREAST: soft, non-tender, symmetric, no dominant mass, normal nipple-areolar complex, no lymphadenopathy and no nipple discharge CHEST: Normal inspiratory effort ABDOMEN: soft, non-tender and no masses PELVIC: external genitalia normal, normal Bartholin's glands, urethra, [place]'s glands, no vulvar lesions, no cervical lesions, good vaginal support, physiologic discharge present, normal appearing perineal body and perianal region. Anxious and uncomfortable with entire pelvic exam. BIMANUAL: uterus normal size, shape and consistency, no adnexal masses and non-tender RECTOVAGINAL: deferred. NEURO: alert and oriented x3,exam grossly non-focal EXTREMITIES: normal ASSESSMENT/PLAN: 1) Health maintenance: Pap done with HPV. Mammogram declined Colon cancer screening: up to date with screening 2) Follow up one year or sooner as needed Eloisa Maldonado APRN.SURVEILLANCE SPECIALIST Eloisa Izaguirre Psravin 01/24/2018 10:48 AM Signed Pap logged and normal pap letter mailed to patient. Eloisa Izaguirre Psr Referring Provider: LIZBETH POOL) [[id number]] Allergies As of Date: 01/15/2018 Noted Allergy Reaction CODEINE 10/26/2004 2 - Rash 9 - Itching DARVOCET A500 (PROPOXYPHENE N-JESSICA*10/26/2004 2 - Rash 9 - Itching DARVON (PROPOXYPHENE HCL) 10/26/2004 2 - Rash 9 - Itching DAYPRO (OXAPROZIN) 01/02/2005 2 - Rash EFFEXOR (VENLAFAXINE HCL) 01/02/2005 5 - Intolerance Comments: decreased libido FLEXERIL (CYCLOBENZAPRINE HCL) 01/02/2005 8 - GI Upset 11 - Vomiting GABAPENTIN 12/15/2015 1 - Mental Status Change Comments: hangover NORCO (HYDROCODONE-ACETAMINOPHEN) 01/02/2005 8 - GI Upset 9 - Itching Comments: nausea, itching OXYBUTYNIN 11/20/2011 14 - Other: See Comments Comments: Urinary retention PINE TREES (TREES) 12/07/2008 Comments: rash TALWIN (PENTAZOCINE LACTATE) 01/02/2005 9 - Itching Comments: GI upset ULTRAM (TRAMADOL HCL) 01/02/2005 8 - GI Upset VIOXX (ROFECOXIB) 01/02/2005 2 - Rash Date Reviewed: 01/15/2018 Reviewed by: Eloisa SladeWaitressFlip Maldonado - Fully Assessed Primary Visit Diagnosis:Encounter for gynecological examination (general) (routine) without abnormal findings [Z01.419] Other Visit Diagnoses:Encounter for screening for human papillomavirus (HPV) [Z11.51] Pap smear for cervical cancer screening [Z12.4] Encounter for screening mammogram for breast cancer [Z12.31] Order(s):PAP FLUID CERVICAL SCREENING [[id number]] Order #: [id number]. #:[id number] DELFINA SCREENING [[id number]] Order #: [id number] FUTURE HPV W/GENOTYPE [SQHPVHRR] Order #: [id number]. #:[id number] Prescriptions as of 01/15/2018 Sig: CARISOPRODOL 350 MG TABLET Take 1 tablet by mouth three * ATORVASTATIN 20 MG TABLET Take 1 tablet by mouth daily * ERGOCALCIFEROL (VITAMIN D2) 5* Take 1 capsule by mouth once * ABATACEPT (WITH MALTOSE) 250 * Inject 750 mg intravenously q* RIFAMPIN 150 MG CAPSULE Take 300 mg by mouth once nicki* CALCIUM CARBONATE 600 MG (1,5* Take 1 tablet by mouth once d* TRETINOIN 0.025 % TOPICAL GEL Apply 1 application to affect* ROPINIROLE 1 MG TABLET Take 1 tablet by mouth daily * NICOTINE 10 MG INHALATION CAR* Inhale 2 Puffs as instructed * PROMETHAZINE 25 MG TABLET Take 1 tablet by mouth every * ONDANSETRON 4 MG DISINTEGRATI* Take 1 tablet by mouth every * ALPRAZOLAM 1 MG TABLET Take 1 mg by mouth twice jaleel* QUETIAPINE 100 MG TABLET Take 2 tablets by mouth daily* POTASSIUM CHLORIDE ER 8 MEQ C* take 1 capsule by mouth once * RIZATRIPTAN 10 MG TABLET Take 1 tablet by mouth at ons* ALENDRONATE 70 MG TABLET take 1 tablet by mouth ONCE E* OMEGA-3 FATTY ACIDS 1,000 MG * Take 2 capsules by mouth once* Problem List As Of Date 01/15/2018 Noted Resolved Cleft lip, 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 Orbital mass [H05.89] INVALID FOR*06/01/2016 RLS (restless legs syndrome) [G25.81] INVALID FOR* Nasal septal deviation [J34.2] INVALID FOR*06/01/2016 Pruritus of forearm [L29.9] INVALID FOR*06/01/2016 Pruritus - disorder INVALID FOR*06/01/2016 Eczematous dermatitis [L30.9] INVALID FOR*06/01/2016 Lichenoid dermatitis [L28.0] INVALID FOR*06/01/2016 Excoriation [T14.8XXA] INVALID FOR*06/01/2016 Capsulitis [M77.9] INVALID FOR*06/01/2016 Closed fracture of lateral malleolus [S82.63XA] INVALID FOR*06/01/2016 Contusion of toe [S90.129A] INVALID FOR*06/01/2016 Migraine headache [G43.909] INVALID FOR* Falls [W19.XXXA] INVALID FOR* Arthritis of left knee [M17.12] INVALID FOR*06/01/2016 Leg ulcer, left (HCC) [L97.929] INVALID FOR*06/01/2016 Xerosis cutis [L85.3] INVALID FOR*06/01/2016 Palpitations [R00.2] INVALID FOR* Cervical strain [S16.1XXA] INVALID FOR*06/01/2016 Cervical disc disease [M50.90] INVALID FOR*06/01/2016 Bulimia [F50.2] INVALID FOR* Eating disorder [F50.9] INVALID FOR*06/01/2016 Positive PPD [R76.11] INVALID FOR* Personality disorder with predominantly sociopa*INVALID FOR* Insomnia [G47.00] INVALID FOR* Cataract of both eyes [H26.9] INVALID FOR*06/01/2016 More... Cervicalgia [M54.2] INVALID FOR* Lumbago [M54.5] INVALID FOR*06/01/2016 Encounter for long-term (current) use of medica*INVALID FOR*06/01/2016 Chronic pain syndrome [G89.4] INVALID FOR*06/01/2016 Left-sided low back pain with left-sided sciati*INVALID FOR* HNP (herniated nucleus pulposus), lumbar [M51.2*INVALID FOR* Rheumatoid arthritis involving multiple sites w*INVALID FOR* Dry eye syndrome [H04.129] INVALID FOR* Hyperlipidemia [E78.5] Acute left ankle pain [M25.572] INVALID FOR* Pain in toe of left foot [M79.675] INVALID FOR* Disposition: Return in 1 year (on 01/15/2019) for Annual Exam. Follow-up and Disposition History Recorded Letter Text Eloisa Maldonado CNP [facility] [address], [place] [address] [facility] [address] [facility] [address] 01/24/2018 [facility]: [id number] Dear David, We are pleased to inform you that your recent Pap Test was within normal limits. Because Pap tests are so effective in the early detection of cervical cancer, you are encouraged to continue having the test at regular intervals. You will be due for a 1 year Gynecological Exam after this date 01/15/2019. If you have any questions regarding the above information, do not hesitate to call our office at between the hours of 8:00 a.m. and 5:00 p.m. Sincerely, Eloisa Mladonado CNP Encounter Status:Closed by ELOISA MALDONADO on 01/15/18 PROGRESS Observed: 01/15/2018 Status: COMPLETED Source: [place] 3:56 PM [facility] REPOSITORY HNO ID: [id number] Author: Eloisa Maldonado Service: (none) Author Type: Nurse Practitioner Type: Progress Notes Filed: 01/15/2018 4:55 PM Note Text: David Berg is a 62 year old who presents for her annual gynecologic exam without complaints. Postmenopausal: Yes since age 51 HRT use: Yes, oral How lon years. Last Pap: 2012 normal HPV: 2013 negative History of abnormal pap: Yes, needed several repeat Paps until normal Last mammogram: 2013 normal History of abnormal mammogram: No Sexually active: No Exercise: foot broken Diet: not very balanced Obstetric History T2 L2 SAB0 TAB4 Ectopic0 Multiple0 Live Births0 PAST MEDICAL HISTORY Diagnosis Date - Acute hepatitis C without mention of hepatic coma(070.51) - Anxiety state 05/29/2005 Dr. Ryan - Bulimia 02/16/2013 - Cervical vertebral fracture (HCC) 05/07/2011 - Chronic obstructive pulmonary disease (COPD) (HCC) - Cleft lip, unspecified 01/24/2005 - Contact dermatitis and other eczema, due to unspecified cause 09/07/2011 - DDD (degenerative disc disease), cervical 05/07/2011 - Depressive disorder, not elsewhere classified - Epileptic petit mal status (HCC) - Generalized osteoarthrosis, unspecified site neck - HEPATITIS C CARRIER--treated with IFN and ribavirin and is in remission (as of 05/21) 05/29/2005 - HNP (herniated nucleus pulposus), lumbar 06/27/2015 - Hyperlipidemia - Migraine headache 02/15/2012 - 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 Choi-ID - Psoriasis - Rheumatoid arthritis involving multiple sites with positive rheumatoid factor (HCC) 12/13/[address] Bowden - RLS (restless legs syndrome) 08/29/2011 - Vitamin D deficiency PAST SURGICAL HISTORY Procedure Laterality Date - COCHLEAR IMPLANT HX - COLONOSCOP W/ OR W/O [facility] 10/11/2009 Colonoscopy - OPEN RX NOSE FRACTURE x2 no breathing problems - PAST SURGICAL HISTORY OF X 2 - PAST SURGICAL HISTORY OF FACIAL RECONSTRUCTION - PAST SURGICAL HISTORY OF 1997 BILAT. SHOULDER SURGERY - PAST SURGICAL HISTORY OF 1994 CERVICAL SPINE FUSION C4, C5 (had cervical fx x3 - even after repair) - PAST SURGICAL HISTORY OF 1969 LEFT EAR CHOLESTEATOMA - PAST SURGICAL HISTORY OF CLEFT LIP - PAST SURGICAL HISTORY OF REBUILD JAW - PAST SURGICAL HISTORY OF 02/2006 lasik - PAST SURGICAL HISTORY OF 2004 bladder sling - TRACHEOSTOMY,EMERG,XTRACH age 3 or 4 during surgery; lost airway FAMILY HISTORY Problem Relation Age of Onset - Stroke Mother - Hypertension Mother - Diabetes Father - Cancer Father melanoma - Cancer Sister thyroid - Cancer Brother 21 testicular - Breast Cancer Sister - Breast Cancer Sister - Breast Cancer Maternal Aunt - Cancer Other [employer]bele[employer] SOCIAL HISTORY Social History Substance Use Topics - Smoking status: Former Smoker Packs/day: 1.00 Years: 30.00 Types: Cigarettes, Pipe Quit date: 06/02/2017 - Smokeless tobacco: Never Used Comment: vapes - Alcohol use No REVIEW OF SYSTEMS Abdomen: No abdominal pain, nausea, vomiting, diarrhea, or constipation. No bloating, early satiety, indigestion, or increased flatulence. Bladder: No dysuria, gross hematuria, urinary frequency, urinary urgency, or incontinence Breast: No breast lumps, nipple d/c, overlying skin changes, redness or skin retraction Allergies and current medication updated:Yes EXAM: BP 124/80 Ht 5' 4.173 (1.63m) Wt 150 lb (68.0kg) BMI 25.61 kg/(m2). GENERAL: pleasant, female in no apparent distress HEENT: Normocephalic, atraumatic, mucus membranes moist and no lesions NECK: Supple, full range of motion, no adenopathy and thyroid normal DERMATOLOGY: Normal, without lesions, non-icteric and non-hirsute BREAST: soft, non-tender, symmetric, no dominant mass, normal nipple-areolar complex, no lymphadenopathy and no nipple discharge CHEST: Normal inspiratory effort ABDOMEN: soft, non-tender and no masses PELVIC: external genitalia normal, normal Bartholin's glands, urethra, [place]'s glands, no vulvar lesions, no cervical lesions, good vaginal support, physiologic discharge present, normal appearing perineal body and perianal region. Anxious and uncomfortable with entire pelvic exam. BIMANUAL: uterus normal size, shape and consistency, no adnexal masses and non-tender RECTOVAGINAL: deferred. NEURO: alert and oriented x3,exam grossly non-focal EXTREMITIES: normal ASSESSMENT/PLAN: 1) Health maintenance: Pap done with HPV. Mammogram declined Colon cancer screening: up to date with screening 2) Follow up one year or sooner as needed Eloisa Maldonado APRN.SURVEILLANCE SPECIALIST CNTHERAPY Observed: 01/15/2018 Status: COMPLETED Source: [place] 3:00 PM [facility] REPOSITORY OT/PT/Speech Visit (PTWS) DAVID BERG ([id number]) 1955 F Date Time Provider Department 01/15/18 3:00 PM CAT VILLALOBOS (ETHANOL OPERATOR) PTWS Date Time Provider Department Center 01/15/2018 3:00 PM [id number], NANCY (ETHANOL OPERATOR) PTWS [facility] Reason for Visit: Physical Therapy [503] Primary Visit Diagnosis:Acute left ankle pain [M25.572] Other Visit Diagnosis:Pain in toe of left foot [M79.675] Allergies As of Date: 01/15/2018 Noted Allergy Reaction CODEINE 10/26/2004 2 - Rash 9 - Itching DARVOCET A500 (PROPOXYPHENE N-JESSICA*10/26/2004 2 - Rash 9 - Itching DARVON (PROPOXYPHENE HCL) 10/26/2004 2 - Rash 9 - Itching DAYPRO (OXAPROZIN) 01/02/2005 2 - Rash EFFEXOR (VENLAFAXINE HCL) 01/02/2005 5 - Intolerance Comments: decreased libido FLEXERIL (CYCLOBENZAPRINE HCL) 01/02/2005 8 - GI Upset 11 - Vomiting GABAPENTIN 12/15/2015 1 - Mental Status Change Comments: hangover NORCO (HYDROCODONE-ACETAMINOPHEN) 01/02/2005 8 - GI Upset 9 - Itching Comments: nausea, itching OXYBUTYNIN 11/20/2011 14 - Other: See Comments Comments: Urinary retention PINE TREES (TREES) 12/07/2008 Comments: rash LEESAWIN (PENTAZOCINE LACTATE) 01/02/2005 9 - Itching Comments: GI upset ULTRAM (TRAMADOL HCL) 01/02/2005 8 - GI Upset VIOXX (ROFECOXIB) 01/02/2005 2 - Rash Date Reviewed: 01/15/2018 Reviewed by: Eloisa Maldonado - Fully Assessed Prescriptions as of 01/15/2018 Sig: CARISOPRODOL 350 MG TABLET Take 1 tablet by mouth three * ATORVASTATIN 20 MG TABLET Take 1 tablet by mouth daily * ERGOCALCIFEROL (VITAMIN D2) 5* Take 1 capsule by mouth once * ABATACEPT (WITH MALTOSE) 250 * Inject 750 mg intravenously q* RIFAMPIN 150 MG CAPSULE Take 300 mg by mouth once nicki* CALCIUM CARBONATE 600 MG (1,5* Take 1 tablet by mouth once d* TRETINOIN 0.025 % TOPICAL GEL Apply 1 application to affect* ROPINIROLE 1 MG TABLET Take 1 tablet by mouth daily * NICOTINE 10 MG INHALATION CAR* Inhale 2 Puffs as instructed * PROMETHAZINE 25 MG TABLET Take 1 tablet by mouth every * ONDANSETRON 4 MG DISINTEGRATI* Take 1 tablet by mouth every * ALPRAZOLAM 1 MG TABLET Take 1 mg by mouth twice jaleel* QUETIAPINE 100 MG TABLET Take 2 tablets by mouth daily* POTASSIUM CHLORIDE ER 8 MEQ C* take 1 capsule by mouth once * RIZATRIPTAN 10 MG TABLET Take 1 tablet by mouth at ons* ALENDRONATE 70 MG TABLET take 1 tablet by mouth ONCE E* OMEGA-3 FATTY ACIDS 1,000 MG * Take 2 capsules by mouth once* Progress Notes: Jayleen Gurrola PT 01/16/2018 12:12 PM Signed Episode Visit Count: 3 Therapist That Will Oversee The Plan Of Care: Jayleen Gurrola PT Start of Care Date: 12/18/17 Onset Date: 10/12/17 Plan of Care Certification Date: 12/18/17 REHABILITATION AND SPORTS THERAPY PHYSICAL THERAPY PROGRESS REPORT PLAN OF CARE UPDATE: Assessment: David Berg exhibits difficulty with being able to place weight through her LE without her boot on due to doctors still trying to determine if she has another fracture. She has a diagnostic US she has to have done prior to increasing weight through foot without her boot on. She continues to be limited with walking, walking in the house and physical activities. She is progressing slower than expected towards her therapy goals as demonstrated by: documented subjective information on progress and documented objective information regarding gait, range of motion and overall function. She will benefit from continued skilled therapy requiring ther ex, manual, neuro and gait training in order to improve ROM, strength, balance, and gait. David Berg demonstrated difficulty with soreness in foot after last visit. She feels swelling is better since last seen. She noted fatigue with exercises today. Following retrograde massage patient felt numbness and tingling in toes. Functional gains: None at this time Goals updated on 01/15/2018. [place] in home exercise program.--MET for current HEP Patient will decrease pain rating by 2 points to meet minimal clinical important difference for numeric pain rating scale. (Sitting 4/10 and Weightbearing 6/10)--Progressing Patient will increase active ROM of L ankle to equal R ankle to allow pt to to achieve neutral postural alignment, improved performance of ADLs and to normalize gait mechanics / gait pattern.--NT Patient will increase strength of L ankle to 5/5 to allow for return to prior functional status, normalized gait mechanics and perform ADLs.--Progressing Patient will increase flexibility of calf to WNL to improve ability to maintain proper posture, restore normal mechanics and decrease pain.--Progressing Perform walking without pain.--Not able to put weight through leg yet. Demonstrate improvement on functional score: Patient will increase his/her score on the Lower Extremity Functional Scale by at least 9 points to indicate a Minimal Clinical Important Difference. (Goal: )--NT Normal gait.--Not MET Reciprocal stair negotiation.--Not MET Planned Interventions, Frequency, and Duration: 2x/week, 5 weeks Total Number of Visits Planned: 13 Patient to be seen for Therapeutic exercise;Neuromuscular re-education;Manual therapy;Self-mcfp management;Gait Training;Patient/Family/Caregiver Education;General Conditioning;Functional training PLAN FOR NEXT VISIT: Continue with NWB exercise and retrograde massage. Possibly add seated BAPS. SUBJECTIVE: Patient reports being sore in the evening after last therapy and better again today. Pain Score: 5/10 Pain Location: Foot - Left;Toe - Left (lateral foot and 5th toe) Description: Aching Frequency: Continuous Post Treatment Pain Score: No Change Pain Location: Foot - Left;Toe - Left (lateral foot and 5th toe) Post Treatment Pain Description: (tingling and numb toes and top of foot.) OBJECTIVE MEASURES WITH LEVEL OF FUNCTION: LE AROM L Ankle Dorsiflexion: 0 Degrees L Ankle Plantar Flexion: 30 Degrees L Ankle Inversion: 2 L Ankle Eversion: 2 LE Strength L LE Strength: not tested due to lack of ROM improved AROM of toes on left with towel toe scrunches. TREATMENT: Therapeutic Exercise: 1: AROM df/pf,inv and evr in elevation with leg over large wedge bolster 1x15 2: Long sitting strap assist gastroc stretch 3x20 seconds with instruction to stretch in pain free ROM. 3: AROM left ankle circles cw and ccw x 15 in elevation. 4: Left seated toe towel scrunches 3x30 seconds. 5: Left ankle ABC's in elevation x 1. Skilled Intervention: Patient was educated in proper exercise technique and purpose for exercises. Skilled judgment was provided in selection of appropriate interventions. Correct performance of therapeutic exercises was facilitated with verbal cuing. Manual Therapy: 1: left LE in elevation over large wedge bolster retrograde massage x 13 minutes with push to patient tolerance. Skilled Intervention: Manual skills to improve joint mobility, ROM, and decrease pain. Utilized anatomy knowledge of the therapist, and assessment of patient's response to intervention. Billing: [facility]: Therapeutic Exercise ([id number]): 1:1 time: 25 minutes (2 units: 23-37 mins) Manual Therapy ([id number]): 1:1 time: 13 minutes (1 unit: 8-22 mins) Total time: 38 minutes Cat Villalobos PT-Love Gurrola PT Previous Version Follow-up and Disposition History Recorded PROGRESS Observed: 01/13/2018 Status: COMPLETED Source: [place] 4:31 PM [facility] [place] REPOSITORY HNO ID: [id number] Author: Jayleen (John Gurrola Service: (none) Author Type: Physical Therapist Type: Progress Notes Filed: 01/13/2018 7:12 PM Note Text: Episode Visit Count: 2 Therapist That Will Oversee The Plan Of Care: Jayleen Gurrola PT Start of Care Date: 12/18/17 Onset Date: 10/12/17 Plan of Care Certification Date: 12/18/17 Patient Identified by Name and Date of : Yes REHABILITATION AND SPORTS THERAPY PHYSICAL THERAPY TREATMENT NOTE ASSESSMENT: David Berg demonstrated difficulty with pain in left lateral foot and 5th toe. Patient with antalgic gait with boot on left foot. Patient is frustrated that she in still not allowed to weight bear without the boot on as she is to wait for diagnostic US prior to increase weight bearing without boot. The patient will continue to benefit from continued skilled physical therapy for AROM, toe scrunches, and retrograde massage left lower extremity. PLAN FOR NEXT VISIT: Monitor response to treatment. Continue with AROM and retrograde massage left LE. SUBJECTIVE: Patient reports she is to have an US in [place] on 01/21/2018 to check for tissue damage. She reports she is not to walk without the brace until after further testing is done. She reports the Dr wants us to do retrograde massage for swelling. Patient reports the left 5th toe and lateral foot hurt today. Pain Score: 6/10 Pain Location: Foot - Left;Toe - Left (lateral foot and 5th toe) Description: Aching;Throbbing Frequency: Continuous Post Treatment Pain Score: 5/10 Pain Location: Ankle - Left Post Treatment Pain Description: Aching OBJECTIVE MEASURES WITH LEVEL OF FUNCTION: Patient with antalgic gait with boot on left foot. TREATMENT: Therapeutic Exercise: 1: *AROM df/pf,inv and evr in elevation with leg over large wedge bolster 1x15 2: *Long sitting strap assist gastroc stretch 3x20 seconds with instruction to stretch in pain free ROM. (Patient has dog leash at home to assist with this.) 3: *AROM left ankle circles cw and ccw x 15 in elevation. 4: *Left seated toe towel scrunches 3x30 seconds. 5: Instruction on elevation above level of heart for active ankle exercises to assist with edema control. Skilled Intervention: Patient was educated in proper exercise technique and purpose for exercises. Reviewed and educated patient on additions/changes for home exercise program as above (*) Skilled judgment was provided in selection of appropriate interventions. Provided written instruction for home exercise program to facilitate proper performance and compliance. Correct performance of therapeutic exercises was facilitated with verbal and visual cuing. Patient education as noted. Manual Therapy: 1: left LE in elevation over large wedge bolster retrograde massage x 10 minutes with push to patient tolerance. Skilled Intervention: Manual skills to improve joint mobility, ROM, and decrease pain. Utilized anatomy knowledge of the therapist, and assessment of patient's response to intervention. Billing: [facility]: Therapeutic Exercise ([id number]): 1:1 time: 30 minutes (2 units: 23-37 mins) Manual Therapy ([id number]): 1:1 time: 10 minutes (1 unit: 8-22 mins) Total time: 40 minutes GREGORY Felix PT CNTHERAPY Observed: 01/13/2018 Status: COMPLETED Source: [place] 3:30 PM [facility] REPOSITORY OT/PT/Speech Visit (PTWS) DAVID BERG ([id number]) 1955 F Date Time Provider Department 01/13/18 3:30 PM CAT VILLALOBOS (ETHANOL OPERATOR) PTWS Date Time Provider Department Center 01/13/2018 3:30 PM [id number], NANCY (ETHANOL OPERATOR) PTWS [facility] Reason for Visit: Physical Therapy [503] Primary Visit Diagnosis:Acute left ankle pain [M25.572] Other Visit Diagnosis:Pain in toe of left foot [M79.675] Allergies As of Date: 01/13/2018 Noted Allergy Reaction CODEINE 10/26/2004 2 - Rash 9 - Itching DARVOCET A500 (PROPOXYPHENE N-JESSICA*10/26/2004 2 - Rash 9 - Itching DARVON (PROPOXYPHENE HCL) 10/26/2004 2 - Rash 9 - Itching DAYPRO (OXAPROZIN) 01/02/2005 2 - Rash EFFEXOR (VENLAFAXINE HCL) 01/02/2005 5 - Intolerance Comments: decreased libido FLEXERIL (CYCLOBENZAPRINE HCL) 01/02/2005 8 - GI Upset 11 - Vomiting GABAPENTIN 12/15/2015 1 - Mental Status Change Comments: hangover NORCO (HYDROCODONE-ACETAMINOPHEN) 01/02/2005 8 - GI Upset 9 - Itching Comments: nausea, itching OXYBUTYNIN 11/20/2011 14 - Other: See Comments Comments: Urinary retention PINE TREES (TREES) 12/07/2008 Comments: rash TALWIN (PENTAZOCINE LACTATE) 01/02/2005 9 - Itching Comments: GI upset ULTRAM (TRAMADOL HCL) 01/02/2005 8 - GI Upset VIOXX (ROFECOXIB) 01/02/2005 2 - Rash Date Reviewed: 01/08/2018 Reviewed by: Kd Og Ma - Fully Assessed Prescriptions as of 01/13/2018 Sig: CARISOPRODOL 350 MG TABLET Take 1 tablet by mouth three * ATORVASTATIN 20 MG TABLET Take 1 tablet by mouth daily * ERGOCALCIFEROL (VITAMIN D2) 5* Take 1 capsule by mouth once * ABATACEPT (WITH MALTOSE) 250 * Inject 750 mg intravenously q* RIFAMPIN 150 MG CAPSULE Take 300 mg by mouth once nicki* CALCIUM CARBONATE 600 MG (1,5* Take 1 tablet by mouth once d* TRETINOIN 0.025 % TOPICAL GEL Apply 1 application to affect* ROPINIROLE 1 MG TABLET Take 1 tablet by mouth daily * NICOTINE 10 MG INHALATION CAR* Inhale 2 Puffs as instructed * PROMETHAZINE 25 MG TABLET Take 1 tablet by mouth every * ONDANSETRON 4 MG DISINTEGRATI* Take 1 tablet by mouth every * ALPRAZOLAM 1 MG TABLET Take 1 mg by mouth twice jaleel* QUETIAPINE 100 MG TABLET Take 2 tablets by mouth daily* POTASSIUM CHLORIDE ER 8 MEQ C* take 1 capsule by mouth once * RIZATRIPTAN 10 MG TABLET Take 1 tablet by mouth at ons* ALENDRONATE 70 MG TABLET take 1 tablet by mouth ONCE E* OMEGA-3 FATTY ACIDS 1,000 MG * Take 2 capsules by mouth once* Progress Notes: Jayleen Gurrola PT 01/13/2018 7:12 PM Signed Episode Visit Count: 2 Therapist That Will Oversee The Plan Of Care: Jayleen Gurrola PT Start of Care Date: 12/18/17 Onset Date: 10/12/17 Plan of Care Certification Date: 12/18/17 Patient Identified by Name and Date of : Yes REHABILITATION AND SPORTS THERAPY PHYSICAL THERAPY TREATMENT NOTE ASSESSMENT: David Marcus Berg demonstrated difficulty with pain in left lateral foot and 5th toe. Patient with antalgic gait with boot on left foot. Patient is frustrated that she in still not allowed to weight bear without the boot on as she is to wait for diagnostic US prior to increase weight bearing without boot. The patient will continue to benefit from continued skilled physical therapy for AROM, toe scrunches, and retrograde massage left lower extremity. PLAN FOR NEXT VISIT: Monitor response to treatment. Continue with AROM and retrograde massage left LE. SUBJECTIVE: Patient reports she is to have an US in [place] on 01/21/2018 to check for tissue damage. She reports she is not to walk without the brace until after further testing is done. She reports the Dr wants us to do retrograde massage for swelling. Patient reports the left 5th toe and lateral foot hurt today. Pain Score: 6/10 Pain Location: Foot - Left;Toe - Left (lateral foot and 5th toe) Description: Aching;Throbbing Frequency: Continuous Post Treatment Pain Score: 5/10 Pain Location: Ankle - Left Post Treatment Pain Description: Aching OBJECTIVE MEASURES WITH LEVEL OF FUNCTION: Patient with antalgic gait with boot on left foot. TREATMENT: Therapeutic Exercise: 1: *AROM df/pf,inv and evr in elevation with leg over large wedge bolster 1x15 2: *Long sitting strap assist gastroc stretch 3x20 seconds with instruction to stretch in pain free ROM. (Patient has dog leash at home to assist with this.) 3: *AROM left ankle circles cw and ccw x 15 in elevation. 4: *Left seated toe towel scrunches 3x30 seconds. 5: Instruction on elevation above level of heart for active ankle exercises to assist with edema control. Skilled Intervention: Patient was educated in proper exercise technique and purpose for exercises. Reviewed and educated patient on additions/changes for home exercise program as above (*) Skilled judgment was provided in selection of appropriate interventions. Provided written instruction for home exercise program to facilitate proper performance and compliance. Correct performance of therapeutic exercises was facilitated with verbal and visual cuing. Patient education as noted. Manual Therapy: 1: left LE in elevation over large wedge bolster retrograde massage x 10 minutes with push to patient tolerance. Skilled Intervention: Manual skills to improve joint mobility, ROM, and decrease pain. Utilized anatomy knowledge of the therapist, and assessment of patient's response to intervention. Billing: [facility]: Therapeutic Exercise ([id number]): 1:1 time: 30 minutes (2 units: 23-37 mins) Manual Therapy ([id number]): 1:1 time: 10 minutes (1 unit: 8-22 mins) Total time: 40 minutes Cat Villalobos, PT-Love Gurrola PT Previous Version Follow-up and Disposition History Recorded EKG1 Observed: 01/08/2018 Status: F Source: [place] 4:30 PM [facility] REPOSITORY NAME : DAVID BERG PID : [id number] : 1955 Gender : Female Race : ORD : Procedure Date : Jan 08 2018 16:30:27 Edit Date : Jan 10 2018 08:07:59 Diagnosis:NORMAL SINUS RHYTHM NORMAL ECG Confirmed by KALEN PEDRO D.O. ([id number]) on 01/10/2018 8:07:30 AM Ventricular Rate : 81 BPM Atrial Rate : 81 BPM P-R Interval : 178 ms QRS Duration : 90 ms Q-T Interval : 376 ms QTC Calculation(Bezet) : 436 ms P Java : 57 degrees R Java : 64 degrees T Java : 67 degrees Test Reason : Location : 185 : [facility] Overread By : KALEN PEDRO D.O. Edited By : KALEN PEDRO D.O. Referred By : BENITEZ, Acquired by : LORELEI, PROGRESS Observed: 01/08/2018 Status: COMPLETED Source: [place] 3:49 PM [facility] REPOSITORY HNO ID: [id number] Author: Lizbeth Lopez) Corine Service: (none) Author Type: Physician Type: Progress Notes Filed: 01/09/2018 11:45 PM Note Text: Chief Complaint Patient presents with: F/U 3 Month Imm/Inj: Flu Vaccine HPI David Berg is a 62 year old female who presents here today for 3 month follow up. Patient in a walking boot on her left side today due to foot and ankle fracture 3 months ago after a fall down stairs caused by her dogs. Following up with Dr. Mckinney at [facility]. Told at last OV not healing correctly so will need US which is scheduled for January 21. Told to continue wearing the boot until results come back. Unable to attend PT at this time. Working with Rheumatology to restart her Orencia after she had positive TB testing. Cleared by Infectious disease earlier this month to restart Orencia and is fighting insurance company to get re-approved. Still on Rifampin daily until March. Does not have scheduled appointment with ID office. RLS: controlled with current dose of Requip. Anxiety: controlled on current regimen as recommended by Dr. Ryan. Reviewed recent labs with patient. Taking 50,000 units of vitamin D weekly for vitamin D deficiency per rheumatology recommendations. Lipids elevated and has not been on statin for months because she only got the initial 30 days and was told no refills were sent to her pharmacy. New finding of prediabetes. Discussed cause and diabetic diet. Will need recheck in 3 months. Past medical history, appointments, medications, allergies reviewed. Previous Medical History PAST MEDICAL HISTORY Diagnosis Date - Acute hepatitis C without mention of hepatic coma(070.51) - Anxiety state 05/29/2005 Dr. Ryan - Bulimia 02/16/2013 - Cervical vertebral fracture (HCC) 05/07/2011 - Chronic obstructive pulmonary disease (COPD) (HCC) - Cleft lip, unspecified 01/24/2005 - Contact dermatitis and other eczema, due to unspecified cause 09/07/2011 - DDD (degenerative disc disease), cervical 05/07/2011 - Depressive disorder, not elsewhere classified - Epileptic petit mal status (HCC) - Generalized osteoarthrosis, unspecified site neck - HEPATITIS C CARRIER--treated with IFN and ribavirin and is in remission (as of 05/21) 05/29/2005 - HNP (herniated nucleus pulposus), lumbar 06/27/2015 - Hyperlipidemia - Migraine headache 02/15/2012 - 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 Choi-ID - Psoriasis - Rheumatoid arthritis involving multiple sites with positive rheumatoid factor (HCC) 12/13/[address] Bowden - RLS (restless legs syndrome) 08/29/2011 - Vitamin D deficiency Previous Surgical History PAST SURGICAL HISTORY Procedure Laterality Date - COCHLEAR IMPLANT HX - COLONOSCOP W/ OR W/O BRSH SPEC 10/11/2009 Colonoscopy - OPEN RX NOSE FRACTURE x2 no breathing problems - PAST SURGICAL HISTORY OF X 2 - PAST SURGICAL HISTORY OF FACIAL RECONSTRUCTION - PAST SURGICAL HISTORY OF 1997 BILAT. SHOULDER SURGERY - PAST SURGICAL HISTORY OF 1994 CERVICAL SPINE FUSION C4, C5 (had cervical fx x3 - even after repair) - PAST SURGICAL HISTORY OF 1969 LEFT EAR CHOLESTEATOMA - PAST SURGICAL HISTORY OF CLEFT LIP - PAST SURGICAL HISTORY OF REBUILD JAW - PAST SURGICAL HISTORY OF 02/2006 lasik - PAST SURGICAL HISTORY OF 2004 bladder sling - TRACHEOSTOMY,EMERG,XTRACH age 3 or 4 during surgery; lost airway Family History FAMILY HISTORY Problem Relation Age of Onset - Stroke Mother - Hypertension Mother - Diabetes Father - Cancer Father melanoma - Cancer Sister thyroid - Cancer Brother 21 testicular - Breast Cancer Sister - Breast Cancer Sister - Breast Cancer Maternal Aunt - Cancer Other M-prolmx-Rcojhrvshx Patient Allergies ALLERGIES Allergen Reactions - Codeine Rash, Itching - Darvocet A500 [Prop* Rash, Itching - Darvon [Propoxyphen* Rash, Itching - Daypro [Oxaprozin] Rash - Effexor [Venlafaxin* Intolerance decreased libido - Flexeril [Cyclobenz* GI Upset, Vomiting - Gabapentin Mental Status Change hangover - [place] [Hydrocodone-* GI Upset, Itching nausea, itching - Oxybutynin Other: See Comments Urinary retention - [place] [Trees] rash - [place] [Pentazocine* Itching GI upset - Ultram [Tramadol Hc* GI Upset - Vioxx [Rofecoxib] Rash Current Medications Current Outpatient Prescriptions on File Prior to Visit: ergocalciferol, vitamin D2, (DRISDOL) 50,000 unit capsule Take 1 capsule by mouth once each week. abatacept (ORENCIA, WITH MALTOSE,) 250 mg injection Inject 750 mg intravenously q 4 WEEKS. rifAMPin (RIFADIN) 150 mg capsule Take 300 mg by mouth once daily. calcium carbonate 600 mg-cholecalciferol 400 units (CALCIUM 600 + D) 600 mg(1,500mg) -400 unit tab Take 1 tablet by mouth once daily. carisoprodol (SOMA) 350 mg tablet Take 1 tablet by mouth three times daily as needed for Muscle Spasm for up to 30 days. Refill on start date. tretinoin (RETIN-A) 0.025 % gel Apply 1 application to affected area daily at bedtime. DX: Psoriasis L40.9/ 696.1 rOPINIRole (REQUIP) 1 mg tablet Take 1 tablet by mouth daily at bedtime. nicotine (NICOTROL) 10 mg inhaler Inhale 2 Puffs as instructed as needed. promethazine (PHENERGAN) 25 mg tablet Take 1 tablet by mouth every 6 hours as needed for Nausea/Vomiting. ondansetron orally disintegrating (ZOFRAN ODT) 4 mg disintegrating tablet Take 1 tablet by mouth every 12 hours as needed for Nausea/Vomiting. atorvastatin (LIPITOR) 20 mg tablet Take 1 tablet by mouth daily at bedtime. For cholesterol. ALPRAZolam (XANAX) 1 mg tablet Take 1 mg by mouth twice daily. QUEtiapine (SEROQUEL) 100 mg tablet Take 2 tablets by mouth daily at bedtime. potassium chloride SR (MICRO-K) 8 mEq cpER take 1 capsule by mouth once daily with BREAKFAST rizatriptan (MAXALT) 10 mg tablet Take 1 tablet by mouth at onset of headache. May repeat after 1hr alendronate (FOSAMAX) 70 mg tablet take 1 tablet by mouth ONCE EACH WEEK, IN THE MORNING WITH A FULL GLASS OF WATER, ON AN EMPTY STOMACH, AND DO NOT TAKE ANYTHING ELSE BY MOUT omega-3 fatty acids 1,000 mg cap Take 2 capsules by mouth once daily. No current facility-administered medications on file prior to visit. 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 Social History Main Topics Smoking status: Current Some Day Smoker Packs/day: 1.00 Years: 30.00 Types: Cigarettes Last attempt to quit: 01/13/2014 Smokeless tobacco: Never Used Comment: vapes Alcohol use: No Drug use: No Comment: IV DRUG USER Sexual activity: Yes Partners with: Male control/protection: Surgical Social History Narrative PT ADMITS TO IV DRUG USE IN THE Review of Symptoms REVIEW OF SYSTEMS GENERAL: No weight loss, malaise or fevers RESPIRATORY: Negative for cough, hemoptysis, wheezing, COPD, dyspnea or shortness of breath CARDIOVASCULAR: Chest pain-Admits to sharp pain in center of her chest which comes on randomly and lasts for 15 minutes. Admits to nausea and diaphoresis. Denies radiation to neck or arm, lightheadedness, SOB, worsening with exertion or improvement with rest. GI: No nausea, vomiting, or diarrhea SKIN: Negative for lesions, rash, and itching EXAM: BP 114/76 Pulse 90 Resp 20 Wt 68 kg (150 lb) BMI 25.93 kg/m? General Appearance: Well appearing, alert, in no acute distress, well-hydrated, well nourished.. Skin: Skin color, texture, turgor normal, no suspicious rashes or lesions. Lungs: Lungs clear to auscultation. No wheezing, rhonchi, rales. Heart: RRR without murmur, gallop, or rubs. No ectopy. Abdomen: Normal abdominal exam, Abdomen soft, non-tender. Bowel sounds normal. No masses, organomegaly. Extremities: No deformities, edema, skin discoloration, clubbing or cyanosis. Good capillary refill. . Health Maintenance List PAP EVERY 5 YEARS due on 06/27/2017 HPV EVERY 5 YEARS due on 06/27/2017 MAMMOGRAM due on 06/28/2017 INFLUENZA(1) due on 12/14/2017 ANNUAL PCP TEAM CHRONIC DISEASE VISIT due on 10/07/2018 COLORECTAL CANCER SCREENING,SEE MODIFIER due on 10/12/2019 DIABETES SCREEN due on 01/03/2021 LIPID SCREEN due on 01/03/2023 DTAP,TDAP,TD(3 - Td) due on 09/15/2023 ONE PNEUMOVAX PRIOR TO AGE 65 Completed HEPATITIS C SCREENING Completed Data reviewed Component Latest Ref Rng AND Units 07/25/2017 12/03/2017 01/03/2018 Protein, Total 6.3 - 8.0 g/dL 7.0 6.8 6.9 Albumin 3.9 - 4.9 g/dL 4.3 3.9 4.2 Calcium 8.5 - 10.2 mg/dL 9.5 9.7 9.4 Bilirubin, Total 0.2 - 1.3 mg/dL 0.2 0.2 <0.2 (L) Alkaline Phosphatase 32 - 117 U/L 68 62 58 AST 13 - 35 U/L 26 24 19 Glucose 74 - 99 mg/dL 93 85 104 (H) BUN 7 - 21 mg/dL 11 19 23 (H) Creatinine 0.58 - 0.96 mg/dL 0.89 0.86 0.79 Sodium 136 - 144 mmol/L 140 141 143 Potassium 3.7 - 5.1 mmol/L 4.4 4.8 4.6 Chloride 97 - 105 mmol/L 103 101 109 (H) CO2 22 - 30 mmol/L 25 26 23 Anion Gap 9 - 18 mmol/L 12 14 11 ALT 7 - 38 U/L 16 12 11 eGFR- >60 >60 >60 eGFR-All Other Races . >60 >60 >60 WBC 3.70 - 11.00 k/uL 5.98 RBC 3.90 - 5.20 m/uL 4.50 Hemoglobin 11.5 - 15.5 g/dL 13.6 Hematocrit 36.0 - 46.0 % 43.7 MCV 80.0 - 100.0 fL 97.1 MCH 26.0 - 34.0 pG 30.2 MCHC 30.5 - 36.0 g/dL 31.1 RDW-CV 11.5 - 15.0 % 15.2 (H) Platelet Count 150 - 400 k/uL 304 MPV 9.0 - 12.7 fL 11.1 Absolute nRBC <0.01 k/uL <0.01 Cholesterol, Total <200 mg/dL 220 (H) 229 (H) Triglyceride <150 mg/dL 228 (H) 76 HDL Cholesterol >39 mg/dL 53 88 LDL Cholesterol <100 mg/dL 121 (H) 126 (H) Non HDL Cholesterol <130 mg/dL 167 (H) 141 (H) Fasting Time hrs 0 9 VLDL Cholesterol <30 mg/dL 46 (H) 15 TC:HDL Ratio <5.10 4.15 2.60 LDL:HDL Ratio <2.54 2.28 1.43 Bilirubin, Conjug <0.2 mg/dL <0.2 TB Result Negative Positive (A) TB Antigen Response <0.35 IU/mL 0.39 (H) Mitogen Response >0.49 IU/mL >10.00 TB Interpretation Result is consistent with current or previous infection with Mycobacterium . . . Hemoglobin A1C 4.3 - 5.6 % 6.0 (H) Estimated Average Glucose mg/dL 126 Vitamin D 25 Hydroxy 31.0 - 80.0 ng/mL 19.3 (L) 20.7 (L) CRP <0.9 mg/dL 0.4 WSR 0 - 20 mm/hr 16 EKG: NSR at 81 bpm ASSESSMENT/PLAN: 1. Chest pain, unspecified type - ICD9: 786.50, ICD10: R07.9 (primary diagnosis) Negative EKG. With multiple risk factors, will obtain stress test and check Xray. - ECG COMPLETE W INTERPRETATION - XR CHEST 2V FRONTAL/LAT - NM CARDIAC PERF STRESS/PHARM 2. Prediabetes - ICD9: 790.29, ICD10: R73.03 Repeat in 3 months. Given information for home on meal planning and carb counting. - HGB A1C 3. Rheumatoid arthritis involving multiple sites with positive rheumatoid factor (HCC) - ICD9: 714.0, ICD10: M05.79 Recommendations per specialist. Continue current regimen. 4. Mixed hyperlipidemia - ICD9: 272.2, ICD10: E78.2 - poor control - Begin treatment with atorvastatin (Lipitor) 20 mg - Encouraged following a low fat, low cholesterol diet. - Discussed the benefits of regular aerobic exercise and weight loss. - ATORVASTATIN 20 MG TABLET 5. RLS (restless legs syndrome) - ICD9: 333.94, ICD10: G25.81 Controlled with requip. 6. Anxiety state - ICD9: 300.00, ICD10: F41.[address] Recommend[address] Ryan. 7. Vitamin D deficiency - ICD9: 268.9, ICD10: E55.9 Continue weekly supplement as ordered by rheumatology. Recheck in 3 months. 8. Tobacco use disorder - ICD9: 305.1, ICD10: F17.200 - Cessation encouraged. - Physiologic and physical aspects of tobacco addiction as well as strategies for quitting were discussed. - Counseling was given focusing on the harmful effects of this addiction especially given the patient's medical condition(s) which will be worsened because of the chemicals in tobacco. 9. Need for vaccination - ICD9: V05.9, ICD10: Z23 - INFLUENZA VACCINE QUADRIVALENT AGE 3 YRS PLUS + IM 10. Screening for cervical cancer - ICD9: V76.2, ICD10: Z12.4 - CONSULT TO GYNECOLOGY 11. Screening mammogram, encounter for - ICD9: V76.12, ICD10: Z12.31 - Set up for mammogram, yearly mammogram recommended - Follow up for annual exam in one year. - DELFINA SCREENING I spent 40 minutes in the visit, with more than 50% of the total hytn-sb-rwbm time of the visit in counseling / coordination of care. Lizbeth Pool MD PROGRESS Observed: 01/08/2018 Status: COMPLETED Source: [place] 3:45 PM [facility] [place] REPOSITORY O ID: [id number] Author: Kd Og Ma Service: (none) Author Type: (none) Type: Progress Notes Filed: 01/09/2018 11:45 PM Note Text: 62 year old female here for INACTIVATED INFLUENZA VACCINE. Season Patient is identified by name and date of : Yes [] CONTRAINDICATIONS color enhanced section Age less than 6 months? No Allergy to eggs, chicken, chicken feathers, or chicken dander? No Allergy to thimerosal (a preservative) or formaldehyde, gelatin? No History of severe reaction to any vaccine component or a previous dose of influenza vaccination? No History of Guillain-[place] Syndrome within 6 weeks after a previous influenza vaccine? No Patient is not moderately or severely ill? No Current temperature greater or equal to 100.4F? No History of Bone Marrow Transplant prior 6 months or solid organ transplant in the past 3 months ? No History of fainting after a prior injection or medical procedure? No- ? If patient has fainted in the past, the CDC recommends sitting or lying down for 15 minutes after the vaccination. [] VERIFICATION color enhanced section Was the answer Yes for any of the above contraindications? No contraindications present. Acceptable to proceed with vaccine. Patient/guardian agrees the above answers are true to the best of their knowledge? Yes Flu vaccine information sheet given? Yes [facility] of immunizations adminstered today. Patient age: [age] year old For The Flu Season 6-35 months old: Fluzone 0.25 ml - IM (Preservative Free) 3 years of age: Fluzone 0.5 ml - IM (Preservative Free) 3 years and older: Fluzone 0.5 ml- IM-(with Preservatives) 65+ years old: 2-49 years old Fluzone High-Dose 0.5 ml - IM (Preservative Free) FLUMIST- intranasal REMEMBER: If patient is less than 9 years of age and this is the first vaccine of Influenza to be received in any flu season, they should receive a second dose in one months time. CNOV Observed: 01/08/2018 Status: COMPLETED Source: [place] 3:40 PM [facility] REPOSITORY [facility] DAVID BERG ([id number]) 1955 F Date Time Provider Department 01/08/18 3:40 PM LIZBETH POOL) [facility] During your visit today, we recorded the following information about you: Pulse Respiration Blood pressure Weight 90/minute 20/minute 114/76 68 kg Kd Coronadoevelyn Linder 01/09/2018 11:45 PM Signed 62 year old female here for INACTIVATED INFLUENZA VACCINE. [id number] Season Patient is identified by name and date of : Yes [] CONTRAINDICATIONS color enhanced section Age less than 6 months? No Allergy to eggs, chicken, chicken feathers, or chicken dander? No Allergy to thimerosal (a preservative) or formaldehyde, gelatin? No History of severe reaction to any vaccine component or a previous dose of influenza vaccination? No History of Guillain-[place] Syndrome within 6 weeks after a previous influenza vaccine? No Patient is not moderately or severely ill? No Current temperature greater or equal to 100.4F? No History of Bone Marrow Transplant prior 6 months or solid organ transplant in the past 3 months ? No History of fainting after a prior injection or medical procedure? No- ? If patient has fainted in the past, the CDC recommends sitting or lying down for 15 minutes after the vaccination. [] VERIFICATION color enhanced section Was the answer Yes for any of the above contraindications? No contraindications present. Acceptable to proceed with vaccine. Patient/guardian agrees the above answers are true to the best of their knowledge? Yes Flu vaccine information sheet given? Yes See immunization activity in [facility] for details of immunizations adminstered today. Patient age: [age] year old For The [id number] Flu Season 6-35 months old: Fluzone 0.25 ml - IM (Preservative Free) 3 years of age: Fluzone 0.5 ml - IM (Preservative Free) 3 years and older: Fluzone 0.5 ml- IM-(with Preservatives) 65+ years old: 2-49 years old Fluzone High-Dose 0.5 ml - IM (Preservative Free) FLUMIST- intranasal REMEMBER: If patient is less than 9 years of age and this is the first vaccine of Influenza to be received in any flu season, they should receive a second dose in one months time. Lizbeth Pool MD 01/09/2018 11:45 PM Signed Chief Complaint Patient presents with: F/U 3 Month Imm/Inj: Flu Vaccine HPI David Berg is a 62 year old female who presents here today for 3 month follow up. Patient in a walking boot on her left side today due to foot and ankle fracture 3 months ago after a fall down stairs caused by her dogs. Following up with Dr. Mckinney at [facility]. Told at last OV not healing correctly so will need US which is scheduled for January 21. Told to continue wearing the boot until results come back. Unable to attend PT at this time. Working with Rheumatology to restart her Orencia after she had positive TB testing. Cleared by Infectious disease earlier this month to restart Orencia and is fighting insurance company to get re-approved. Still on Rifampin daily until March. Does not have scheduled appointment with ID office. RLS: controlled with current dose of Requip. Anxiety: controlled on current regimen as recommended by Dr. Ryan. Reviewed recent labs with patient. Taking 50,000 units of vitamin D weekly for vitamin D deficiency per rheumatology recommendations. Lipids elevated and has not been on statin for months because she only got the initial 30 days and was told no refills were sent to her pharmacy. New finding of prediabetes. Discussed cause and diabetic diet. Will need recheck in 3 months. Past medical history, appointments, medications, allergies reviewed. Previous Medical History PAST MEDICAL HISTORY Diagnosis Date - Acute hepatitis C without mention of hepatic coma(070.51) - Anxiety state 05/29/2005 Dr. Ryan - Bulimia 02/16/2013 - Cervical vertebral fracture (HCC) 05/07/2011 - Chronic obstructive pulmonary disease (COPD) (HCC) - Cleft lip, unspecified 01/24/2005 - Contact dermatitis and other eczema, due to unspecified cause 09/07/2011 - DDD (degenerative disc disease), cervical 05/07/2011 - Depressive disorder, not elsewhere classified - Epileptic petit mal status (HCC) - Generalized osteoarthrosis, unspecified site neck - HEPATITIS C CARRIER--treated with IFN and ribavirin and is in remission (as of 05/21) 05/29/2005 - HNP (herniated nucleus pulposus), lumbar 06/27/2015 - Hyperlipidemia - Migraine headache 02/15/2012 - 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 Choi-ID - Psoriasis - Rheumatoid arthritis involving multiple sites with positive rheumatoid factor (HCC) 12/13/[address] Bowden - RLS (restless legs syndrome) 08/29/2011 - Vitamin D deficiency Previous Surgical History PAST SURGICAL HISTORY Procedure Laterality Date - COCHLEAR IMPLANT HX - COLONOSCOP W/ OR W/O BRSH SPEC 10/11/2009 Colonoscopy - OPEN RX NOSE FRACTURE x2 no breathing problems - PAST SURGICAL HISTORY OF X 2 - PAST SURGICAL HISTORY OF FACIAL RECONSTRUCTION - PAST SURGICAL HISTORY OF 1997 BILAT. SHOULDER SURGERY - PAST SURGICAL HISTORY OF 1994 CERVICAL SPINE FUSION C4, C5 (had cervical fx x3 - even after repair) - PAST SURGICAL HISTORY OF 1969 LEFT EAR CHOLESTEATOMA - PAST SURGICAL HISTORY OF CLEFT LIP - PAST SURGICAL HISTORY OF REBUILD JAW - PAST SURGICAL HISTORY OF 02/2006 lasik - PAST SURGICAL HISTORY OF 2004 bladder sling - TRACHEOSTOMY,EMERG,XTRACH age 3 or 4 during surgery; lost airway Family History FAMILY HISTORY Problem Relation Age of Onset - Stroke Mother - Hypertension Mother - Diabetes Father - Cancer Father melanoma - Cancer Sister thyroid - Cancer Brother 21 testicular - Breast Cancer Sister - Breast Cancer Sister - Breast Cancer Maternal Aunt - Cancer Other I-iccoqx-Isptgwodbi Patient Allergies ALLERGIES Allergen Reactions - Codeine Rash, Itching - Darvocet A500 [Prop* Rash, Itching - Darvon [Propoxyphen* Rash, Itching - Daypro [Oxaprozin] Rash - Effexor [Venlafaxin* Intolerance decreased libido - Flexeril [Cyclobenz* GI Upset, Vomiting - Gabapentin Mental Status Change hangover - [place] [Hydrocodone-* GI Upset, Itching nausea, itching - Oxybutynin Other: See Comments Urinary retention - [place] [Trees] rash - [place] [Pentazocine* Itching GI upset - Ultram [Tramadol Hc* GI Upset - Vioxx [Rofecoxib] Rash Current Medications Current Outpatient Prescriptions on File Prior to Visit: ergocalciferol, vitamin D2, (DRISDOL) 50,000 unit capsule Take 1 capsule by mouth once each week. abatacept (ORENCIA, WITH MALTOSE,) 250 mg injection Inject 750 mg intravenously q 4 WEEKS. rifAMPin (RIFADIN) 150 mg capsule Take 300 mg by mouth once daily. calcium carbonate 600 mg-cholecalciferol 400 units (CALCIUM 600 + D) 600 mg(1,500mg) -400 unit tab Take 1 tablet by mouth once daily. carisoprodol (SOMA) 350 mg tablet Take 1 tablet by mouth three times daily as needed for Muscle Spasm for up to 30 days. Refill on start date. tretinoin (RETIN-A) 0.025 % gel Apply 1 application to affected area daily at bedtime. DX: Psoriasis L40.9/ 696.1 rOPINIRole (REQUIP) 1 mg tablet Take 1 tablet by mouth daily at bedtime. nicotine (NICOTROL) 10 mg inhaler Inhale 2 Puffs as instructed as needed. promethazine (PHENERGAN) 25 mg tablet Take 1 tablet by mouth every 6 hours as needed for Nausea/Vomiting. ondansetron orally disintegrating (ZOFRAN ODT) 4 mg disintegrating tablet Take 1 tablet by mouth every 12 hours as needed for Nausea/Vomiting. atorvastatin (LIPITOR) 20 mg tablet Take 1 tablet by mouth daily at bedtime. For cholesterol. ALPRAZolam (XANAX) 1 mg tablet Take 1 mg by mouth twice daily. QUEtiapine (SEROQUEL) 100 mg tablet Take 2 tablets by mouth daily at bedtime. potassium chloride SR (MICRO-K) 8 mEq cpER take 1 capsule by mouth once daily with BREAKFAST rizatriptan (MAXALT) 10 mg tablet Take 1 tablet by mouth at onset of headache. May repeat after 1hr alendronate (FOSAMAX) 70 mg tablet take 1 tablet by mouth ONCE EACH WEEK, IN THE MORNING WITH A FULL GLASS OF WATER, ON AN EMPTY STOMACH, AND DO NOT TAKE ANYTHING ELSE BY MOUT omega-3 fatty acids 1,000 mg cap Take 2 capsules by mouth once daily. No current facility-administered medications on file prior to visit. 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 Social History Main Topics Smoking status: Current Some Day Smoker Packs/day: 1.00 Years: 30.00 Types: Cigarettes Last attempt to quit: 01/13/2014 Smokeless tobacco: Never Used Comment: vapes Alcohol use: No Drug use: No Comment: IV DRUG USER Sexual activity: Yes Partners with: Male control/protection: Surgical Social History Narrative PT ADMITS TO IV DRUG USE IN THE Review of Symptoms REVIEW OF SYSTEMS GENERAL: No weight loss, malaise or fevers RESPIRATORY: Negative for cough, hemoptysis, wheezing, COPD, dyspnea or shortness of breath CARDIOVASCULAR: Chest pain-Admits to sharp pain in center of her chest which comes on randomly and lasts for 15 minutes. Admits to nausea and diaphoresis. Denies radiation to neck or arm, lightheadedness, SOB, worsening with exertion or improvement with rest. GI: No nausea, vomiting, or diarrhea SKIN: Negative for lesions, rash, and itching EXAM: BP 114/76 Pulse 90 Resp 20 Wt 68 kg (150 lb) BMI 25.93 kg/m? General Appearance: Well appearing, alert, in no acute distress, well-hydrated, well nourished.. Skin: Skin color, texture, turgor normal, no suspicious rashes or lesions. Lungs: Lungs clear to auscultation. No wheezing, rhonchi, rales. Heart: RRR without murmur, gallop, or rubs. No ectopy. Abdomen: Normal abdominal exam, Abdomen soft, non-tender. Bowel sounds normal. No masses, organomegaly. Extremities: No deformities, edema, skin discoloration, clubbing or cyanosis. Good capillary refill. . Health Maintenance List PAP EVERY 5 YEARS due on 06/27/2017 HPV EVERY 5 YEARS due on 06/27/2017 MAMMOGRAM due on 06/28/2017 INFLUENZA(1) due on 12/14/2017 ANNUAL PCP TEAM CHRONIC DISEASE VISIT due on 10/07/2018 COLORECTAL CANCER SCREENING,SEE MODIFIER due on 10/12/2019 DIABETES SCREEN due on 01/03/2021 LIPID SCREEN due on 01/03/2023 DTAP,TDAP,TD(3 - Td) due on 09/15/2023 ONE PNEUMOVAX PRIOR TO AGE 65 Completed HEPATITIS C SCREENING Completed Data reviewed Component Latest Ref Rng AND Units 07/25/2017 12/03/2017 01/03/2018 Protein, Total 6.3 - 8.0 g/dL 7.0 6.8 6.9 Albumin 3.9 - 4.9 g/dL 4.3 3.9 4.2 Calcium 8.5 - 10.2 mg/dL 9.5 9.7 9.4 Bilirubin, Total 0.2 - 1.3 mg/dL 0.2 0.2 <0.2 (L) Alkaline Phosphatase 32 - 117 U/L 68 62 58 AST 13 - 35 U/L 26 24 19 Glucose 74 - 99 mg/dL 93 85 104 (H) BUN 7 - 21 mg/dL 11 19 23 (H) Creatinine 0.58 - 0.96 mg/dL 0.89 0.86 0.79 Sodium 136 - 144 mmol/L 140 141 143 Potassium 3.7 - 5.1 mmol/L 4.4 4.8 4.6 Chloride 97 - 105 mmol/L 103 101 109 (H) CO2 22 - 30 mmol/L 25 26 23 Anion Gap 9 - 18 mmol/L 12 14 11 ALT 7 - 38 U/L 16 12 11 eGFR- >60 >60 >60 eGFR-All Other Races . >60 >60 >60 WBC 3.70 - 11.00 k/uL 5.98 RBC 3.90 - 5.20 m/uL 4.50 Hemoglobin 11.5 - 15.5 g/dL 13.6 Hematocrit 36.0 - 46.0 % 43.7 MCV 80.0 - 100.0 fL 97.1 MCH 26.0 - 34.0 pG 30.2 MCHC 30.5 - 36.0 g/dL 31.1 RDW-CV 11.5 - 15.0 % 15.2 (H) Platelet Count 150 - 400 k/uL 304 MPV 9.0 - 12.7 fL 11.1 Absolute nRBC <0.01 k/uL <0.01 Cholesterol, Total <200 mg/dL 220 (H) 229 (H) Triglyceride <150 mg/dL 228 (H) 76 HDL Cholesterol >39 mg/dL 53 88 LDL Cholesterol <100 mg/dL 121 (H) 126 (H) Non HDL Cholesterol <130 mg/dL 167 (H) 141 (H) Fasting Time hrs 0 9 VLDL Cholesterol <30 mg/dL 46 (H) 15 TC:HDL Ratio <5.10 4.15 2.60 LDL:HDL Ratio <2.54 2.28 1.43 Bilirubin, Conjug <0.2 mg/dL <0.2 TB Result Negative Positive (A) TB Antigen Response <0.35 IU/mL 0.39 (H) Mitogen Response >0.49 IU/mL >10.00 TB Interpretation Result is consistent with current or previous infection with Mycobacterium . . . Hemoglobin A1C 4.3 - 5.6 % 6.0 (H) Estimated Average Glucose mg/dL 126 Vitamin D 25 Hydroxy 31.0 - 80.0 ng/mL 19.3 (L) 20.7 (L) CRP <0.9 mg/dL 0.4 WSR 0 - 20 mm/hr 16 EKG: NSR at 81 bpm ASSESSMENT/PLAN: 1. Chest pain, unspecified type - ICD9: 786.50, ICD10: R07.9 (primary diagnosis) Negative EKG. With multiple risk factors, will obtain stress test and check Xray. - ECG COMPLETE W INTERPRETATION - XR CHEST 2V FRONTAL/LAT - NM CARDIAC PERF STRESS/PHARM 2. Prediabetes - ICD9: 790.29, ICD10: R73.03 Repeat in 3 months. Given information for home on meal planning and carb counting. - HGB A1C 3. Rheumatoid arthritis involving multiple sites with positive rheumatoid factor (HCC) - ICD9: 714.0, ICD10: M05.79 Recommendations per specialist. Continue current regimen. 4. Mixed hyperlipidemia - ICD9: 272.2, ICD10: E78.2 - poor control - Begin treatment with atorvastatin (Lipitor) 20 mg - Encouraged following a low fat, low cholesterol diet. - Discussed the benefits of regular aerobic exercise and weight loss. - ATORVASTATIN 20 MG TABLET 5. RLS (restless legs syndrome) - ICD9: 333.94, ICD10: G25.81 Controlled with requip. 6. Anxiety state - ICD9: 300.00, ICD10: F41.[address] Ryan. 7. Vitamin D deficiency - ICD9: 268.9, ICD10: E55.9 Continue weekly supplement as ordered by rheumatology. Recheck in 3 months. 8. Tobacco use disorder - ICD9: 305.1, ICD10: F17.200 - Cessation encouraged. - Physiologic and physical aspects of tobacco addiction as well as strategies for quitting were discussed. - Counseling was given focusing on the harmful effects of this addiction especially given the patient's medical condition(s) which will be worsened because of the chemicals in tobacco. 9. Need for vaccination - ICD9: V05.9, ICD10: Z23 - INFLUENZA VACCINE QUADRIVALENT AGE 3 YRS PLUS + IM 10. Screening for cervical cancer - ICD9: V76.2, ICD10: Z12.4 - CONSULT TO GYNECOLOGY 11. Screening mammogram, encounter for - ICD9: V76.12, ICD10: Z12.31 - Set up for mammogram, yearly mammogram recommended - Follow up for annual exam in one year. - DELFINA SCREENING I spent 40 minutes in the visit, with more than 50% of the total [id number]-bn-[id number] time of the visit in counseling / coordination of care. Lizbeth Pool MD Referring Provider: LIZBETH POOL () [[id number]] Allergies As of Date: 01/08/2018 Noted Allergy Reaction CODEINE 10/26/2004 2 - Rash 9 - Itching DARVOCET A500 (PROPOXYPHENE N-JESSICA*10/26/2004 2 - Rash 9 - Itching DARVON (PROPOXYPHENE HCL) 10/26/2004 2 - Rash 9 - Itching DAYPRO (OXAPROZIN) 01/02/2005 2 - Rash EFFEXOR (VENLAFAXINE HCL) 01/02/2005 5 - Intolerance Comments: decreased libido FLEXERIL (CYCLOBENZAPRINE HCL) 01/02/2005 8 - GI Upset 11 - Vomiting GABAPENTIN 12/15/2015 1 - Mental Status Change Comments: hangover NORCO (HYDROCODONE-ACETAMINOPHEN) 01/02/2005 8 - GI Upset 9 - Itching Comments: nausea, itching OXYBUTYNIN 11/20/2011 14 - Other: See Comments Comments: Urinary retention PINE TREES (TREES) 12/07/2008 Comments: rash TALWIN (PENTAZOCINE LACTATE) 01/02/2005 9 - Itching Comments: GI upset ULTRAM (TRAMADOL HCL) 01/02/2005 8 - GI Upset VIOXX (ROFECOXIB) 01/02/2005 2 - Rash Date Reviewed: 01/08/2018 Reviewed by: Kd Og Ma - Fully Assessed Reason for Visit: F/U 3 Month [443] Imm/Inj [58] Cmt: Flu Vaccine Reason For Visit History Recorded Primary Visit Diagnosis:Chest pain, unspecified type [R07.9] Other Visit Diagnoses:Prediabetes [R73.03] Rheumatoid arthritis involving multiple sites with positive rheumatoid factor (HCC) [M05.79] Mixed hyperlipidemia [E78.2] RLS (restless legs syndrome) [G25.81] Anxiety state [F41.1] Vitamin D deficiency [E55.9] Tobacco use disorder [F17.200] Need for vaccination [Z23] Screening for cervical cancer [Z12.4] Screening mammogram, encounter for [Z12.31] Order(s):INFLUENZA VACCINE QUADRIVALENT AGE 3 YRS PLUS + IM [35126GSA] Order #: [id number] atorvastatin (LIPITOR) 20 mg tabletTake 1 tablet by mouth daily at bedtime. For cholesterol.Disp: 30 tabletRfl: 5 HGB A1C [PBSCN5S] Order #: [id number] FUTURE CONSULT TO GYNECOLOGY [9075] Order #: [id number]: 1 DELFINA SCREENING [3544790] Order #: [id number] FUTURE ECG COMPLETE W INTERPRETATION [ECG01] Order #: [id number] FUTURE XR CHEST 2V FRONTAL/LAT [[id number]] Order #: [id number] FUTURE NM CARDIAC PERF STRESS/PHARM [[id number]] Order #: [id number] FUTURE Prescriptions as of 01/08/2018 Sig: ATORVASTATIN 20 MG TABLET Take 1 tablet by mouth daily * ERGOCALCIFEROL (VITAMIN D2) 5* Take 1 capsule by mouth once * ABATACEPT (WITH MALTOSE) 250 * Inject 750 mg intravenously q* RIFAMPIN 150 MG CAPSULE Take 300 mg by mouth once nicki* CALCIUM CARBONATE 600 MG (1,5* Take 1 tablet by mouth once d* X CARISOPRODOL 350 MG TABLET Take 1 tablet by mouth three * TRETINOIN 0.025 % TOPICAL GEL Apply 1 application to affect* ROPINIROLE 1 MG TABLET Take 1 tablet by mouth daily * NICOTINE 10 MG INHALATION CAR* Inhale 2 Puffs as instructed * PROMETHAZINE 25 MG TABLET Take 1 tablet by mouth every * ONDANSETRON 4 MG DISINTEGRATI* Take 1 tablet by mouth every * ALPRAZOLAM 1 MG TABLET Take 1 mg by mouth twice jaleel* QUETIAPINE 100 MG TABLET Take 2 tablets by mouth daily* POTASSIUM CHLORIDE ER 8 MEQ C* take 1 capsule by mouth once * RIZATRIPTAN 10 MG TABLET Take 1 tablet by mouth at ons* ALENDRONATE 70 MG TABLET take 1 tablet by mouth ONCE E* OMEGA-3 FATTY ACIDS 1,000 MG * Take 2 capsules by mouth once* Problem List As Of Date 01/08/2018 Noted Resolved Cleft lip, 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 Orbital mass [H05.89] INVALID FOR*06/01/2016 RLS (restless legs syndrome) [G25.81] INVALID FOR* Nasal septal deviation [J34.2] INVALID FOR*06/01/2016 Pruritus of forearm [L29.9] INVALID FOR*06/01/2016 Pruritus - disorder INVALID FOR*06/01/2016 Eczematous dermatitis [L30.9] INVALID FOR*06/01/2016 Lichenoid dermatitis [L28.0] INVALID FOR*06/01/2016 Excoriation [T14.8XXA] INVALID FOR*06/01/2016 Capsulitis [M77.9] INVALID FOR*06/01/2016 Closed fracture of lateral malleolus [S82.63XA] INVALID FOR*06/01/2016 Contusion of toe [S90.129A] INVALID FOR*06/01/2016 Migraine headache [G43.909] INVALID FOR* Falls [W19.XXXA] INVALID FOR* Arthritis of left knee [M17.12] INVALID FOR*06/01/2016 Leg ulcer, left (HCC) [L97.929] INVALID FOR*06/01/2016 Xerosis cutis [L85.3] INVALID FOR*06/01/2016 Palpitations [R00.2] INVALID FOR* Cervical strain [S16.1XXA] INVALID FOR*06/01/2016 Cervical disc disease [M50.90] INVALID FOR*06/01/2016 Bulimia [F50.2] INVALID FOR* Eating disorder [F50.9] INVALID FOR*06/01/2016 Positive PPD [R76.11] INVALID FOR* Personality disorder with predominantly sociopa*INVALID FOR* Insomnia [G47.00] INVALID FOR* Cataract of both eyes [H26.9] INVALID FOR*06/01/2016 More... Cervicalgia [M54.2] INVALID FOR* Lumbago [M54.5] INVALID FOR*06/01/2016 Encounter for long-term (current) use of medica*INVALID FOR*06/01/2016 Chronic pain syndrome [G89.4] INVALID FOR*06/01/2016 Left-sided low back pain with left-sided sciati*INVALID FOR* HNP (herniated nucleus pulposus), lumbar [M51.2*INVALID FOR* Rheumatoid arthritis involving multiple sites w*INVALID FOR* Dry eye syndrome [H04.129] INVALID FOR* Hyperlipidemia [E78.5] Acute left ankle pain [M25.572] INVALID FOR* Pain in toe of left foot [M79.675] INVALID FOR* Prescriptions ordered this encounter Disp Refills Start End ATORVASTATIN 20 MG TABLET 30 t* 5 01/08/2018 Route: ORAL Sig: Take 1 tablet by mouth daily at bedtime. For cholesterol. Medications Discontinued During This Encounter atorvastatin (LIPITOR) 20 mg tablet 30 t* 5 07/27/2017 01/08/2018 Route: ORAL Sig: Take 1 tablet by mouth daily at bedtime. For cholesterol. Disc: Reason for discontinue is not on file. Disposition: Return in about 3 months (around 04/09/2018). Follow-up and Disposition History Recorded Letter Text [facility] [address], [place] [address] TO WHOM IT MAY CONCERN: This is to confirm that David Berg had an appointment and was seen at the [facility] in the Department of Family Medicine Lizbeth Pool M.D on 01/08/2018. Sincerely yours, Lizbeth Pool M.D Encounter Status:Closed by LIZBETH POOL MD on 01/09/18 CBC Collected: 01/03/2018 Status: F Source: [place] 9:00 AM [facility] REPOSITORY TYPE CODE TESTS RESULT OUT OF REFERENCE UNITS RANGE LAB WBC 3.70-11.00 k/uL WBC 5.98 LAB RBC 3.90-5.20 m/uL RBC 4.50 LAB HGB 11.5-15.5 g/dL Hemoglobin 13.6 LAB HCT 36.0-46.0 % Hematocrit 43.7 LAB MCV 80.0-100.0 fL MCV 97.1 LAB MCH 26.0-34.0 pG MCH 30.2 LAB MCHC 30.5-36.0 g/dL MCHC 31.1 LAB RDWCV 11.5-15.0 % RDW-CV High 15.2 LAB PLTCT 150-400 k/uL Platelet Count 304 LAB MPV 9.0-12.7 fL MPV 11.1 LAB ABSNUC <0.01 k/uL Absolute nRBC <0.01 Performed By: #### CBC, WSR, CRP #### [facility] [employer] [address] [place], [place] [address] SED RATE WESTERGREN Collected: 01/03/2018 Status: F Source: [place] 9:00 AM [facility] REPOSITORY TYPE CODE TESTS RESULT OUT OF REFERENCE UNITS RANGE LAB WSR 0-20 mm/hr Sed Rate Westergren 16 Performed By: #### CBC, WSR, CRP #### [facility] [address] [place], [place] [address] C-REACTIVE PROTEIN Collected: 01/03/2018 Status: F Source: [place] 9:00 AM [facility] REPOSITORY TYPE CODE TESTS RESULT OUT OF REFERENCE UNITS RANGE LAB CRP <0.9 mg/dL C-Reactive 0.4 Protein Performed By: #### CBC, WSR, CRP #### [facility] [address] [place], [place] [address] COMP METABOLIC PANEL Collected: 01/03/2018 Status: F Source: [place] 9:00 AM [facility] [place] REPOSITORY TYPE CODE TESTS RESULT OUT OF REFERENCE UNITS RANGE LAB TP 6.3-8.0 g/dL Protein, Total 6.9 LAB ALB 3.9-4.9 g/dL Albumin 4.2 LAB CA 8.5-10.2 mg/dL Calcium, Total 9.4 LAB TBIL 0.2-1.3 mg/dL Low Bilirubin, Total <0.2 LAB ALKP 32-117 U/L Alkaline Phosphatase 58 LAB AST 13-35 U/L AST 19 LAB GLU 74-99 mg/dL Glucose High 104 Result Comment: The [place] Diabetes Association (ADA) provides guidance for cutoff values for fasting glucose and random glucose. The ADA defines fasting as no caloric intake for at least 8 hours. Fas ting plasma glucose results between 100 to 125 mg/dL indicate increased risk for diabetes (prediabetes). Fasting plasma glucose results greater than or equal to 126 mg/dL meet the criteria for diagnosis of diabetes. In the absence of unequivocal hyperglycemia, results should be confirmed by repeat testing. In a patient with classic symptoms of hyperglycemia or hyperglycemic crisis, random plasma glucose results greater than or equal to 200 mg/dL meet the criteria for diagnosis of diabetes. Reference: Standards of Medical Care in Diabetes 2016, [place] Diabetes Association. Diabetes Care. 2016.39(Suppl 1). LAB BUN 7-21 mg/dL BUN High 23 LAB CRET 0.58-0.96 mg/dL Creatinine 0.79 LAB NA 136-144 mmol/L Sodium 143 LAB K 3.7-5.1 mmol/L Potassium 4.6 LAB CL 97-105 mmol/L Chloride High 109 LAB CO2 22-30 mmol/L CO2 23 LAB AGAP 9-18 mmol/L Anion Gap 11 LAB ALT 7-38 U/L ALT 11 LAB GFRAA eGFR- Amer. >60 LAB GFRNAA . eGFR-All Other Races >60 Result Comment: eGFR (Estimated GFR) Units of measure: mL/min/1.73 meters squared eGFR is derived from the reexpressed MDRD Study equation using the following parameters: serum creatinine, age, gender and race. The creatinine assay has been calibrated to be traceable to IDMS. An eGFR <60 mL/min/1.73m2 for >3 months is consistent with chronic kidney disease. Refer to KDOQI guidelines for clinical interpretation. In patients with unstable renal function, e.g. those with acute kidney injury, the eGFR may not accurately reflect actual GFR. Performed By: #### CMP, LIPB, VITD #### [facility] [address] [place], [place] [address] LIPID PANEL, BASIC Collected: 01/03/2018 Status: F Source: [place] 9:00 AM [facility] REPOSITORY TYPE CODE TESTS RESULT OUT OF REFERENCE UNITS RANGE LAB CHOL <200 mg/dL Cholesterol High 229 Result Comment: <200 mg/dL, Desirable 200-239 mg/dL, Borderline high >239 mg/dL, High LAB TRIGLY <150 mg/dL Triglyceride 76 Result Comment: <150 mg/dL, Normal 150-199 mg/dL, Borderline high 200-499 mg/dL, High >499 mg/dL, Very high LAB HDL >39 mg/dL HDL-Cholesterol 88 Result Comment: 40-59 mg/dL, Acceptable >59 mg/dL, High: Negative risk factor for coronary heart disease <40 mg/dL, Low: Positive risk factor for coronary heart disease LAB LDL <100 mg/dL LDL-Cholesterol High 126 Result Comment: <100 mg/dL, Optimal 100-129 mg/dL, Near optimal/above optimal 130-159 mg/dL, Borderline high 160-189 mg/dL, High >189 mg/dL, Very high Secondary prevention optimal LDL Cholesterol levels are recommended to be < 70 mg/dL LAB NONHDL <130 mg/dL Non HDL High Cholesterol 141 Result Comment: <130 mg/dL, Optimal 130-159 mg/dL, Near optimal/above optimal 160-189 mg/dL, Borderline high 190-219 mg/dL, High >219 mg/dL, Very high Secondary prevention optimal non HDL Cholesterol levels are recommended to be < 100 mg/dL LAB FT hrs Fasting Time 9 LAB VLDL <30 mg/dL VLDL Cholesterol 15 LAB TCHDL <5.10 TC:HDL Ratio 2.60 LAB LDLHDL <2.54 LDL:HDL Ratio 1.43 Result Comment: Reference: 1. National Cholesterol Education Program ATP III Guideline At-A-Glance Quick Desk Reference: National Heart, Lung, and Blood [place]. National Institutes of Health. 2001: NIH Publication No. 01-3305. 2. An International Atherosclerosis Society position paper: global recommendations for the management of dyslipidemia: executive summary, Atherosclerosis. 2014: 232(2):410-413. Performed By: #### CMP, LIPB, VITD #### [facility] [employer] [address] [place], [place] [address] VITAMIN D 25 HYDROXY Collected: 01/03/2018 Status: F Source: [place] 9:00 AM [facility] REPOSITORY TYPE CODE TESTS RESULT OUT OF REFERENCE UNITS RANGE LAB VITD 31.0-80.0 ng/mL Low Vitamin D 25 20.7 Hydroxy Result Comment: Classification of 25 [place] Vitamin D status: Insufficiency/Moderate Deficiency: < or = 30 ng/mL Sufficiency/Optimal Levels: 31 to 80 ng/mL Toxicity: > 100 ng/mL Test performed by chemiluminescent immunoassay. Performed By: #### CMP, LIPB, VITD #### [facility] [employer] [address] [place], [place] [address] HEMOGLOBIN A1C Collected: 01/03/2018 Status: F Source: [place] 9:00 AM [facility] REPOSITORY TYPE CODE TESTS RESULT OUT OF REFERENCE UNITS RANGE LAB HGBA1C 4.3-5.6 % High Hemoglobin A1c 6.0 LAB HBA0 mg/dL Est. Average Glucose 126 Result Comment: eAG: (Estimated average glucose) is a calculated value from HgbA1c and is commercial representative of the average blood glucose level in the last 2-3 month period. Performed By: #### HBA1C #### [facility] [employer] [address] [place], [place] [address] EXTREMITY LOWER Observed: 12/31/2017 Status: F Source: [place] WITHOUT CONTRA 2:34 PM [facility] REPOSITORY [facility] Imaging Services [address] [place] [address] Extremity Lower without Contra MR#: [id number] Acct: [id number] Name: DAVID BERG Marcus Rep #: [id number] : 1955 F 62 From: Guillermo Salazar MD PCP: Rodney Pool MD Status: REG CLI Study: Extremity Lower without Contra Date of Exam: 12/31/17 Exam# [id number] Ordering Dr: Bruce Mckinney DPM STUDY: CT LOWER EXTREMITY, LEFT, WITHOUT CONTRAST. REASON FOR EXAM: Female, 62 years old. Fall in September. Fracture of 5th metatarsal. RADIATION DOSAGE (If Supplied By Facility): CTDIvol = ( 15.35 ) mGy, DLP = ( 342.25 ) mGycm. Individualized dose optimization techniques were used for this CT.? TECHNIQUE: Thin slice helical CT acquisition was performed through the left ankle and foot without IV contrast, with coronal and sagittal 2-D multiplanar reformatted images saved to the PACS archive. COMPARISON: X-ray foot 10/13/2017 FINDINGS: Generalized osteopenia. There is mild DJD of the interphalangeal joints of each digit. There is mild DJD at the 1st digit metatarsophalangeal joint. Normal appearance of the ankle joint and subtalar joint. Normal appearance of the intertarsal and tarsometatarsal articulations. Tiny fracture fragment from the base of the lateral malleolus. There is soft tissue swelling overlying the lateral malleolus and extending into the dorsolateral foot. There is a 3 mm metallic focus in the soft tissues of the foot, overlying the 5th tarsometatarsal articulation. Uncertain significance of this foreign body. The fracture at the base of the 5th metatarsal is fused, a small residual cleft inferior lateral aspect with corticated margins. CT/Extremity Lower without Contra IMPRESSION: The fracture at the base of the 5th metacarpal exhibits appropriate union, with a small residual cleft of its inferior lateral aspect that has densely corticated margins consistent with healing. Tiny residual fracture fragment of cortical avulsion from the tip of the lateral malleolus. Lateral ankle and dorsal lateral foot soft tissue swelling. Tiny metallic radiodense foreign body as described above of uncertain significance. Electronically Signed: Guillermo Salazar, at 12:51 EDT Tel , Service support , CC: Rodney Pool MD; Bruce Mckinney DPM Creative Developer: Signed PROGRESS Observed: 12/18/2017 Status: COMPLETED Source: [place] 2:46 PM [facility] [place] REPOSITORY HNO ID: [id number] Author: Jayleen (Pt) [employer] Service: (none) Author Type: Physical Therapist Type: Progress Notes Filed: 01/03/2018 9:56 AM Note Text: Rec'd a fax on 01/02/18 that patient can start PT from Dr. Hank DPM. Order placed in [facility] for patient to schedule 2x a week for 6 weeks with either Jayleen Gurrola or Cat Villalobos. Episode Visit Count: 1 Therapist That Will Oversee The Plan Of Care: Jayleen Gurrola PT Start of Care Date: 12/18/17 Onset Date: 10/12/17 Plan of Care Certification Date: 12/18/17 Patient Identified by Name and Date of : Yes REHABILITATION AND SPORTS THERAPY PHYSICAL THERAPY EVALUATION PLAN OF CARE: Assessment: David Berg presents with the chief complaint of L ankle pain and L 5th toe pain. She presents with impairments of L ankle ROM, pain to palpation at medial/lateral malleoli as well as L 5th ray, impaired gait, balance and L ankle strength. She may benefit from skilled therapy services to improve ROM, strength, gait, and balance. Waiting to schedule as patient stated she had a fracture noted in her 5th ray last week but has to change care as her insurance is not accepted any longer at [facility]. She has an appointment scheduled with [facility] this afternoon, so will await to ensure she is clear to continue with outpatient PT. Will need to place order in [facility] once given the ok. Patient in agreement with plan and eager to improve her ROM and gait! Prognosis: Fair Fair due to: clinical presentation;coping skills;limited support system Goals for Episode of Care: created on 12/18/17 through 02/12/18 [place] in home exercise program. Patient will decrease pain rating by 2 points to meet minimal clinical important difference for numeric pain rating scale. Patient will increase active ROM of L ankle to equal R ankle to allow pt to to achieve neutral postural alignment, improved performance of ADLs and to normalize gait mechanics / gait pattern . Patient will increase strength of L ankle to 5/5 to allow for return to prior functional status, normalized gait mechanics and perform ADLs. Patient will increase flexibility of calf to WNL to improve ability to maintain proper posture, restore normal mechanics and decrease pain. Perform walking without pain. Demonstrate improvement on functional score: Patient will increase his/her score on the Lower Extremity Functional Scale by at least 9 points to indicate a Minimal Clinical Important Difference. (Goal: ) Normal gait. Reciprocal stair negotiation. Planned Interventions, Frequency, and Duration: Current Frequency: 2x/week (Waiting on ok from new doctor) Duration: 6 weeks Total Number of Visits Planned: 13 Planned Treatment Interventions: Therapeutic exercise;Neuromuscular re-education;Manual therapy;Self-mcfp management;Gait Training;Patient/Family/Caregiver Education;General Conditioning;Functional training PLAN FOR NEXT VISIT: inquire about outcome of visit with [facility], ROM, stretching, and IASTM Patient demonstrates good understanding of plan of care and treatment. The above goals and plan of care were discussed and agreed upon by patient/family. SUBJECTIVE: David Berg is a 62 year old female seen today for broke L foot. Had x-rays on foot done last at [facility], which showed another fx at the 5th metatarsal but now higher then the original fracture. Patient has been in a boot since fall and today is the first day she has removed. She is wearing a ASO over L foot. Patient reports it swells alot when she is on her foot and if it is down. Her L foot continues to hard. Sees a specialist today at 1:45pm at the [facility] due to [facility] telling her last week that they were not taking her insurance any longer. Patient had an order for PT but doesn't know where it is (will ask Dr. Pool for an order). Had home OT and PT 2x times each. She told them not to come back to her home becuase they didn't do anything; just talked to her. Patient stated her ankle felt better in boot but hurt her L 5th toe. Functional Limitations: standing;walking;rising from a chair;physical activities;carrying;pushing;pulling (riding motorcycle) Prior Level of Function: Independent without limitations Patient Goals: get back to walking normally and riding motorcycle as L foot is the shifter foot Intake Information: Prescription present (message sent to Dr. Pool for an order for PT) Previous Treatment: (Boot and 2 visits each of home PT/OT) Pain Score: (Sittin/10 Weight bearing 8/10) Pain Location: Ankle - Left (Left 5th toe) Description: Throbbing Frequency: Continuous Post Treatment Pain Score: 4/10 Pain Location: Ankle - Left (L 5th toe) Post Treatment Pain Description: Throbbing OBJECTIVE MEASURES WITH LEVEL OF FUNCTION: Ankle Observations Weight Bearing Status: WBAT R Ankle Presents with: Swelling (R ankle circumferences= 27.5 cm) L Ankle Presents with: (L ankle circumferences= 21.5 cm) L Ankle Palpation Tenderness: Medial malleolus;Lateral malleolus;Achilles tendon (L 5th metatrsal) Gait Gait Observation: walking with L leg out to the side and cane on R side LE AROM R Ankle Dorsiflexion: 20 Degrees R Ankle Plantar Flexion: 45 Degrees R Ankle Inversion: 25 R Ankle Eversion: 25 L Ankle Dorsiflexion: (0) L Ankle Plantar Flexion: 30 Degrees L Ankle Inversion: 2 L Ankle Eversion: 2 LE Strength R LE Strength: 5/5 all for R ankle L LE Strength: not tested due to lack of ROM Special Tests - Ankle Ankle Special Tests: (deferred d/t concern of another fx) Education: Education Learning Preferences: Demonstration;Explanation;Performance Barriers: Emotions Learning/educational needs: Plan of Care;Home exercise program;Safety Education Provided: Yes, see treatment interventions for education provided Education Provided To: Patient Education Mode/Type: Demonstration;Explanation/Discussion;Performance;Teach Back Response to Education/Teach Back: States/Identifies TREATMENT: Evaluation Therapeutic Exercise: 1: Ankle pumps x10 caused ankle pain and heel cord pain. Cues to perform in pain free range 2: Walking cues to keep toe pointed forward vs out to the side. Recommended she asked doctor today about returning to boot. Skilled Intervention: Patient was educated in proper exercise technique and purpose for exercises. Skilled judgment was provided in selection of appropriate interventions. Manual Therapy: 1: Patient seated in chair: IAS with therapist hands and warm lotion to L heel cord and L ankle x10 minutes Skilled Intervention: Manual skills to improve joint mobility, ROM, and decrease pain. Utilized anatomy knowledge of the therapist, and assessment of patient's response to intervention. Billing: [facility]: Evaluation - Moderate Complexity (31568) Manual Therapy (28594): 1:1 time: 12 minutes (1 unit: 8-22 mins) Total time: 38 minutes Jayleen Gurrola PT PROGRESS Observed: 12/18/2017 Status: COMPLETED Source: [place] 2:45 PM [facility] REPOSITORY HNO ID: [id number] Author: Jayleen Hancock) Galileo Service: (none) Author Type: Physical Therapist Type: Progress Notes Filed: 12/18/2017 2:56 PM Note Text: PROGRESS Observed: 12/18/2017 Status: COMPLETED Source: [place] 1:56 PM [facility] REPOSITORY HNO ID: [id number] Author: Laith Bella) Pee Service: (none) Author Type: Nurse Practitioner Type: Progress Notes Filed: 12/18/2017 2:02 PM Note Text: Received letter from infectious disease, Dr. Choi who states OK to resume Orencia. Spoke with Angie from [facility]. They will fax form for us to complete. Ly Glasgow CNP CNTHERAPY Observed: 12/18/2017 Status: COMPLETED Source: [place] 12:15 PM [facility] REPOSITORY OT/PT/Speech Visit (PTWS) DAVID BERG ([id number]) 1955 F Date Time Provider Department 12/18/17 12:15 PM JAYLEEN GURROLAPT) PTWS Date Time Provider Department Center 12/18/2017 12:15 PM [id number], DIANA (PT)PTWS [facility] Reason for Visit: PT Eval [747] Patient Education [91] Primary Visit Diagnosis:Pain in toe of left foot [M79.675] Other Visit Diagnosis:Acute left ankle pain [M25.572] Allergies As of Date: 12/18/2017 Noted Allergy Reaction CODEINE 10/26/2004 2 - Rash 9 - Itching DARVOCET A500 (PROPOXYPHENE N-JESSICA*10/26/2004 2 - Rash 9 - Itching DARVON (PROPOXYPHENE HCL) 10/26/2004 2 - Rash 9 - Itching DAYPRO (OXAPROZIN) 01/02/2005 2 - Rash EFFEXOR (VENLAFAXINE HCL) 01/02/2005 5 - Intolerance Comments: decreased libido FLEXERIL (CYCLOBENZAPRINE HCL) 01/02/2005 8 - GI Upset 11 - Vomiting GABAPENTIN 12/15/2015 1 - Mental Status Change Comments: hangover NORCO (HYDROCODONE-ACETAMINOPHEN) 01/02/2005 8 - GI Upset 9 - Itching Comments: nausea, itching OXYBUTYNIN 11/20/2011 14 - Other: See Comments Comments: Urinary retention PINE TREES (TREES) 12/07/2008 Comments: rash TALWIN (PENTAZOCINE LACTATE) 01/02/2005 9 - Itching Comments: GI upset ULTRAM (TRAMADOL HCL) 01/02/2005 8 - GI Upset VIOXX (ROFECOXIB) 01/02/2005 2 - Rash Date Reviewed: 12/11/2017 Reviewed by: Karli Oropeza Ma - Fully Assessed Prescriptions as of 12/18/2017 Sig: RIFAMPIN 150 MG CAPSULE Take 300 mg by mouth once nicki* CALCIUM CARBONATE 600 MG (1,5* Take 1 tablet by mouth once d* CARISOPRODOL 350 MG TABLET Take 1 tablet by mouth three * TRETINOIN 0.025 % TOPICAL GEL Apply 1 application to affect* ROPINIROLE 1 MG TABLET Take 1 tablet by mouth daily * NICOTINE 10 MG INHALATION CAR* Inhale 2 Puffs as instructed * PROMETHAZINE 25 MG TABLET Take 1 tablet by mouth every * ONDANSETRON 4 MG DISINTEGRATI* Take 1 tablet by mouth every * ATORVASTATIN 20 MG TABLET Take 1 tablet by mouth daily * ALPRAZOLAM 1 MG TABLET Take 1 mg by mouth twice jaleel* QUETIAPINE 100 MG TABLET Take 2 tablets by mouth daily* POTASSIUM CHLORIDE ER 8 MEQ C* take 1 capsule by mouth once * RIZATRIPTAN 10 MG TABLET Take 1 tablet by mouth at ons* ALENDRONATE 70 MG TABLET take 1 tablet by mouth ONCE E* OMEGA-3 FATTY ACIDS 1,000 MG * Take 2 capsules by mouth once* X ABATACEPT (WITH MALTOSE) 250 * Inject 750 mg intravenously o* Progress Notes: Jayleen Gurrola, PT 12/18/2017 2:56 PM Signed Jayleen Gurrola, PT 01/03/2018 9:56 AM Addendum Rec'd a fax on 01/02/18 that patient can start PT from Dr. Hank DPM. Order placed in [facility] for patient to schedule 2x a week for 6 weeks with either Jayleen Gurrola or Cat Villalobos. Episode Visit Count: 1 Therapist That Will Oversee The Plan Of Care: Jayleen Gurrola PT Start of Care Date: 12/18/17 Onset Date: 10/12/17 Plan of Care Certification Date: 12/18/17 Patient Identified by Name and Date of : Yes [facility] PHYSICAL THERAPY EVALUATION PLAN OF CARE: Assessment: David Berg presents with the chief complaint of L ankle pain and L 5th toe pain. She presents with impairments of L ankle ROM, pain to palpation at medial/lateral malleoli as well as L 5th ray, impaired gait, balance and L ankle strength. She may benefit from skilled therapy services to improve ROM, strength, gait, and balance. Waiting to schedule as patient stated she had a fracture noted in her 5th ray last week but has to change care as her insurance is not accepted any longer at [facility]. She has an appointment scheduled with [facility] this afternoon, so will await to ensure she is clear to continue with outpatient PT. Will need to place order in [facility] once given the ok. Patient in agreement with plan and eager to improve her ROM and gait! Prognosis: Fair Fair due to: clinical presentation;coping skills;limited support system Goals for Episode of Care: created on 12/18/17 through 02/12/18 [place] in home exercise program. Patient will decrease pain rating by 2 points to meet minimal clinical important difference for numeric pain rating scale. Patient will increase active ROM of L ankle to equal R ankle to allow pt to to achieve neutral postural alignment, improved performance of ADLs and to normalize gait mechanics / gait pattern . Patient will increase strength of L ankle to 5/5 to allow for return to prior functional status, normalized gait mechanics and perform ADLs. Patient will increase flexibility of calf to WNL to improve ability to maintain proper posture, restore normal mechanics and decrease pain. Perform walking without pain. Demonstrate improvement on functional score: Patient will increase his/her score on the Lower Extremity Functional Scale by at least 9 points to indicate a Minimal Clinical Important Difference. (Goal: ) Normal gait. Reciprocal stair negotiation. Planned Interventions, Frequency, and Duration: Current Frequency: 2x/week (Waiting on ok from new doctor) Duration: 6 weeks Total Number of Visits Planned: 13 Planned Treatment Interventions: Therapeutic exercise;Neuromuscular re-education;Manual therapy;Self-mcfp management;Gait Training;Patient/Family/Caregiver Education;General Conditioning;Functional training PLAN FOR NEXT VISIT: inquire about outcome of visit with [facility], ROM, stretching, and IASTM Patient demonstrates good understanding of plan of care and treatment. The above goals and plan of care were discussed and agreed upon by patient/family. SUBJECTIVE: David Berg is a 62 year old female seen today for broke L foot. Had x-rays on foot done last at [facility], which showed another fx at the 5th metatarsal but now higher then the original fracture. Patient has been in a boot since fall and today is the first day she has removed. She is wearing a ASO over L foot. Patient reports it swells alot when she is on her foot and if it is down. Her L foot continues to hard. Sees a specialist today at 1:45pm at the [facility] due to [facility] telling her last week that they were not taking her insurance any longer. Patient had an order for PT but doesn't know where it is (will ask Dr. Pool for an order). Had home OT and PT 2x times each. She told them not to come back to her home becuase they didn't do anything; just talked to her. Patient stated her ankle felt better in boot but hurt her L 5th toe. Functional Limitations: standing;walking;rising from a chair;physical activities;carrying;pushing;pulling (riding motorcycle) Prior Level of Function: Independent without limitations Patient Goals: get back to walking normally and riding motorcycle as L foot is the shifter foot Intake Information: Prescription present (message sent to Dr. Pool for an order for PT) Previous Treatment: (Boot and 2 visits each of home PT/OT) Pain Score: (Sittin/10 Weight bearing 8/10) Pain Location: Ankle - Left (Left 5th toe) Description: Throbbing Frequency: Continuous Post Treatment Pain Score: 4/10 Pain Location: Ankle - Left (L 5th toe) Post Treatment Pain Description: Throbbing OBJECTIVE MEASURES WITH LEVEL OF FUNCTION: Ankle Observations Weight Bearing Status: WBAT R Ankle Presents with: Swelling (R ankle circumferences= 27.5 cm) L Ankle Presents with: (L ankle circumferences= 21.5 cm) L Ankle Palpation Tenderness: Medial malleolus;Lateral malleolus;Achilles tendon (L 5th metatrsal) Gait Gait Observation: walking with L leg out to the side and cane on R side LE AROM R Ankle Dorsiflexion: 20 Degrees R Ankle Plantar Flexion: 45 Degrees R Ankle Inversion: 25 R Ankle Eversion: 25 L Ankle Dorsiflexion: (0) L Ankle Plantar Flexion: 30 Degrees L Ankle Inversion: 2 L Ankle Eversion: 2 LE Strength R LE Strength: 5/5 all for R ankle L LE Strength: not tested due to lack of ROM Special Tests - Ankle Ankle Special Tests: (deferred d/t concern of another fx) Education: Education Learning Preferences: Demonstration;Explanation;Performance Barriers: Emotions Learning/educational needs: Plan of Care;Home exercise program;Safety Education Provided: Yes, see treatment interventions for education provided Education Provided To: Patient Education Mode/Type: Demonstration;Explanation/Discussion;Performance;Teach Back Response to Education/Teach Back: States/Identifies TREATMENT: Evaluation Therapeutic Exercise: 1: Ankle pumps x10 caused ankle pain and heel cord pain. Cues to perform in pain free range 2: Walking cues to keep toe pointed forward vs out to the side. Recommended she asked doctor today about returning to boot. Skilled Intervention: Patient was educated in proper exercise technique and purpose for exercises. Skilled judgment was provided in selection of appropriate interventions. Manual Therapy: 1: Patient seated in chair: IASTM with therapist hands and warm lotion to L heel cord and L ankle x10 minutes Skilled Intervention: Manual skills to improve joint mobility, ROM, and decrease pain. Utilized anatomy knowledge of the therapist, and assessment of patient's response to intervention. Billing: [facility]: Evaluation - Moderate Complexity (22782) Manual Therapy (16486): 1:1 time: 12 minutes (1 unit: 8-22 mins) Total time: 38 minutes Jayleen Gurrola, PT Previous Version Jayleen Gurrola, PT 01/03/2018 9:56 AM Signed Addended by: JAYLEEN GURROLA I on: 01/03/2018 09:56 AM Modules accepted: Orders PROGRESS Observed: 12/11/2017 Status: COMPLETED Source: [place] 12:52 PM [facility] [place] REPOSITORY [facility] ID: [id number] Author: Laith Bella) Pee Service: (none) Author Type: Nurse Practitioner Type: Progress Notes Filed: 12/11/2017 1:30 PM Note Text: RHEUMATOLOGY FOLLOW UP NOTE 62 year old female with PMH significant for rheumatoid arthritis who presents for follow up Last seen in the Rheumatology Department on 12/05/16 HPI: Hx of Hep C interferon/ribavarin/RA RA--> Rx: SSZ and Enbrel. Per patient Enbrel has helped tremendously but lost efficacy after about 2 1/2 years RF positive, CCP negative, Hep C viral load negative. No cryos, no abnormal proteins. Orencia resumed 11/2009 - stopped 05/2011- lung infections- emphysema. RTX 01/2012, 08/2012. 02/2013 not helpful, resume orencia 07/2013. stopped again 10/2014 (self), resumed orencia 2015. Repeat quantiferon was negative and she had evaluation with ID Today's Visit: Has been getting Orencia infusions at [facility] though it has been several months since her last infusion. 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 Started therapy over 1 month ago and is expected to complete 4 full months Fractured the L foot 10/12/17 after falling down 3 stairs coming out of the house. Wears boot and is following with Orthopaedics Feeling very stiff, worse in the morning for 1-2 hours Reports swelling of the hands PAST MEDICAL HISTORY Diagnosis Date - Acute hepatitis C without mention of hepatic coma(070.51) - Anxiety state 05/29/2005 Dr. Ryan - Bulimia 02/16/2013 - Cervical vertebral fracture (HCC) 05/07/2011 - Chronic obstructive pulmonary disease (COPD) (HCC) - Cleft lip, unspecified 01/24/2005 - Contact dermatitis and other eczema, due to unspecified cause 09/07/2011 - DDD (degenerative disc disease), cervical 05/07/2011 - Depressive disorder, not elsewhere classified - Epileptic petit mal status (HCC) last one was at least 10 yrs ago - Generalized osteoarthrosis, unspecified site neck - HEPATITIS C CARRIER--treated with IFN and ribavirin and is in remission (as of 05/21) 05/29/2005 - HNP (herniated nucleus pulposus), lumbar 06/27/2015 - Hyperlipidemia - Migraine headache 02/15/2012 - 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 Choi-ID - Psoriasis - Rheumatoid arthritis involving multiple sites with positive rheumatoid factor ([facility]) 12/13/[address] Bowden - RLS (restless legs syndrome) 08/29/2011 - Vitamin D deficiency Current Outpatient Prescriptions: rifAMPin (RIFADIN) 150 mg capsule Take 300 mg by mouth once daily. carisoprodol (SOMA) 350 mg tablet Take 1 tablet by mouth three times daily as needed for Muscle Spasm for up to 30 days. Refill on start date. tretinoin (RETIN-A) 0.025 % gel Apply 1 application to affected area daily at bedtime. DX: Psoriasis L40.9/ 696.1 rOPINIRole (REQUIP) 1 mg tablet Take 1 tablet by mouth daily at bedtime. nicotine (NICOTROL) 10 mg inhaler Inhale 2 Puffs as instructed as needed. promethazine (PHENERGAN) 25 mg tablet Take 1 tablet by mouth every 6 hours as needed for Nausea/Vomiting. ondansetron orally disintegrating (ZOFRAN ODT) 4 mg disintegrating tablet Take 1 tablet by mouth every 12 hours as needed for Nausea/Vomiting. atorvastatin (LIPITOR) 20 mg tablet Take 1 tablet by mouth daily at bedtime. For cholesterol. ALPRAZolam (XANAX) 1 mg tablet Take 1 mg by mouth twice daily. QUEtiapine (SEROQUEL) 100 mg tablet Take 2 tablets by mouth daily at bedtime. potassium chloride SR (MICRO-K) 8 mEq cpER take 1 capsule by mouth once daily with BREAKFAST rizatriptan (MAXALT) 10 mg tablet Take 1 tablet by mouth at onset of headache. May repeat after 1hr alendronate (FOSAMAX) 70 mg tablet take 1 tablet by mouth ONCE EACH WEEK, IN THE MORNING WITH A FULL GLASS OF WATER, ON AN EMPTY STOMACH, AND DO NOT TAKE ANYTHING ELSE BY MOUT calcium carbonate 600 mg-cholecalciferol 400 units (CALCIUM 600 + D) 600 mg(1,500mg) -400 unit tab Take 1 tablet by mouth once daily. omega-3 fatty acids 1,000 mg cap Take 2 capsules by mouth once daily. abatacept (ORENCIA, WITH MALTOSE,) 250 mg injection Inject 750 mg intravenously once every month. No current facility-administered medications for this visit. REVIEW OF SYSTEMS: December 11, 2017 CONSTITUTIONAL: Fever: No Fatigue: Yes Pain: No EYES: Pain: No Redness: No Loss of vision: No Dryness: No EAR, NOSE, MOUTH, THROAT: Nose bleeds: No Hearing loss: Yes Sores in mouth: No Swallowing problems: No Dry mouth: Yes CARDIOVASCULAR: Chest pain: Yes Swelling in the feet or legs: No RESPIRATORY: Shortness of breath: No Pain with breathing: No Chronic cough: No Coughing up blood: No GASTROINTESTINAL: Heartburn: No Nausea: No Diarrhea: No Blood in the stool or black stool: No Abdominal pain: No GENITOURINARY: Blood in urine: No Pain or burning on urination: No MUSCULOSKELETAL: Joint pain: Yes Joint swelling: Yes Morning stiffness in joints: Yes Muscle weakness: Yes Back pain: Yes SKIN: Rashes: No Sun sensitive rashes: Yes Color changes of hands or feet in the cold: No Hair loss: No Nail changes: Yes NEUROLOGICAL: Headaches: Yes Dizziness: No Numbness or tingling: No Memory loss: No Seizures: No HEMATOLOGIC/LYMPHATIC: Swollen glands: No Anemia: No ALLERGIES/IMMUNOLOGIC: Allergies (other than medications): No Increased susceptibility to infection: No KNOWN MEDICAL CONDITIONS: Diabetes: No Thyroid disease: No High blood pressure: No Physical Exam BP 127/63 (BP Site: Right Arm, BP Position: Sitting, BP Cuff Size: Regular Adult) Pulse 79 Temp 36.7 ?C (98.1 ?F) (Oral) General appearance: well appearing, alert, in no acute distress and well-hydrated, well nourished Eyes: Anicteric sclera. Pupils are equally round and reactive to light. Extraocular movements are intact. No conjunctival pallor ENT: Lips, teeth, and gums normal. Oropharynx and tongue normal. No lesions or exudate. Neck: No mass or asymmetry. Resp: Normal respiratory effort. Clear to auscultation. No wheezes CV: RRR without murmur. No lower extremity edema Abdom: BS normal. Lymphatic: Normal exam of the neck Skin: No rash, thickening, nodules, discoloration. Musculoskeletal: No joint pain, synovitis, swelling or tenderness. FROM upper and lower extremity joints, pain in R shoulder with ROM L foot in walking boot Neuro: Gait- antalgic with cane. Cranial nerves II-XII grossly intact. Sensory exam normal. Peripheral pulses: 2+ DP pulses bilaterally LABS Component Latest Ref Rng AND Units 12/03/2017 Glucose 74 - 99 mg/dL 85 BUN 7 - 21 mg/dL 19 Creatinine 0.58 - 0.96 mg/dL 0.86 Sodium 136 - 144 mmol/L 141 Potassium 3.7 - 5.1 mmol/L 4.8 Chloride 97 - 105 mmol/L 101 CO2 22 - 30 mmol/L 26 Anion Gap 9 - 18 mmol/L 14 Calcium 8.5 - 10.2 mg/dL 9.7 eGFR- >60 eGFR-All Other Races . >60 Albumin 3.9 - 4.9 g/dL 3.9 Bilirubin, Total 0.2 - 1.3 mg/dL 0.2 Bilirubin, Conjug <0.2 mg/dL <0.2 Alkaline Phosphatase 32 - 117 U/L 62 AST 13 - 35 U/L 24 ALT 7 - 38 U/L 12 Protein, Total 6.3 - 8.0 g/dL 6.8 Assessment: (M05.79) Rheumatoid arthritis involving multiple sites with positive rheumatoid factor (HCC) (primary encounter diagnosis) (E55.9) Vitamin D deficiency (M81.0) Senile osteoporosis 62 year old female with PMH significant for rheumatoid arthritis presents for follow up. Was doing well on monthly Orencia infusions at [facility]. Currently being treated for LTBI with Rifampin. Infusions have been on hold since . Left message for her infectious disease doctor, Dr. Choi ([phone]) to see when we can resume Orencia infusions Will fax orders to [facility] once I have documentation from his office that it is OK to resume Osteopenia with recent L foot fracture. She is on fosamax. Due for repeat DXA after 02/21/18- ordered today Has not been taking calcium/vitamin D. Reinforced the importance of staying on these medications. Checking vitamin D level today. Plan: Labs today Will resume Orencia once cleared by infectious disease Schedule DXA after 02/21/18 Follow up 6 months 25 minutes spent [id number] with the patient during this office visit during which counseling or coordination of care activities account for more than 50 percent of this office visit. Ly Glasgow CNP CNOV Observed: 12/11/2017 Status: COMPLETED Source: [place] 12:40 PM [facility] REPOSITORY Office Visit (RHEUMN) DAVID BERG ([id number]) 1955 F Date Time Provider Department 12/11/17 12:40 PM LAITH GLASGOW (MARY) RHEUMN During your visit today, we recorded the following information about you: Temperature Pulse Blood pressure 98.1 degrees 79/minute 127/63 Laith Glasgow APRN.MARY 12/11/2017 1:30 PM Signed RHEUMATOLOGY FOLLOW UP NOTE 62 year old female with PMH significant for rheumatoid arthritis who presents for follow up Last seen in the Rheumatology Department on 12/05/16 HPI: Hx of Hep C interferon/ribavarin/RA RA--> Rx: SSZ and Enbrel. Per patient Enbrel has helped tremendously but lost efficacy after about 2 1/2 years RF positive, CCP negative, Hep C viral load negative. No cryos, no abnormal proteins. Orencia resumed 11/2009 - stopped 05/2011- lung infections- emphysema. RTX 01/2012, 08/2012. 02/2013 not helpful, resume orencia 07/2013. stopped again 10/2014 (self), resumed orencia 2015. Repeat quantiferon was negative and she had evaluation with ID Today's Visit: Has been getting Orencia infusions at [facility] though it has been several months since her last infusion. 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 Started therapy over 1 month ago and is expected to complete 4 full months Fractured the L foot 10/12/17 after falling down 3 stairs coming out of the house. Wears boot and is following with Orthopaedics Feeling very stiff, worse in the morning for 1-2 hours Reports swelling of the hands PAST MEDICAL HISTORY Diagnosis Date - Acute hepatitis C without mention of hepatic coma(070.51) - Anxiety state 05/29/2005 Dr. Ryan - Bulimia 02/16/2013 - Cervical vertebral fracture (HCC) 05/07/2011 - Chronic obstructive pulmonary disease (COPD) (HCC) - Cleft lip, unspecified 01/24/2005 - Contact dermatitis and other eczema, due to unspecified cause 09/07/2011 - DDD (degenerative disc disease), cervical 05/07/2011 - Depressive disorder, not elsewhere classified - Epileptic petit mal status (HCC) last one was at least 10 yrs ago - Generalized osteoarthrosis, unspecified site neck - HEPATITIS C CARRIER--treated with IFN and ribavirin and is in remission (as of 05/21) 05/29/2005 - HNP (herniated nucleus pulposus), lumbar 06/27/2015 - Hyperlipidemia - Migraine headache 02/15/2012 - 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 Choi-ID - Psoriasis - Rheumatoid arthritis involving multiple sites with positive rheumatoid factor (HCC) 12/13/[address] Bowden - RLS (restless legs syndrome) 08/29/2011 - Vitamin D deficiency Current Outpatient Prescriptions: rifAMPin (RIFADIN) 150 mg capsule Take 300 mg by mouth once daily. carisoprodol (SOMA) 350 mg tablet Take 1 tablet by mouth three times daily as needed for Muscle Spasm for up to 30 days. Refill on start date. tretinoin (RETIN-A) 0.025 % gel Apply 1 application to affected area daily at bedtime. DX: Psoriasis L40.9/ 696.1 rOPINIRole (REQUIP) 1 mg tablet Take 1 tablet by mouth daily at bedtime. nicotine (NICOTROL) 10 mg inhaler Inhale 2 Puffs as instructed as needed. promethazine (PHENERGAN) 25 mg tablet Take 1 tablet by mouth every 6 hours as needed for Nausea/Vomiting. ondansetron orally disintegrating (ZOFRAN ODT) 4 mg disintegrating tablet Take 1 tablet by mouth every 12 hours as needed for Nausea/Vomiting. atorvastatin (LIPITOR) 20 mg tablet Take 1 tablet by mouth daily at bedtime. For cholesterol. ALPRAZolam (XANAX) 1 mg tablet Take 1 mg by mouth twice daily. QUEtiapine (SEROQUEL) 100 mg tablet Take 2 tablets by mouth daily at bedtime. potassium chloride SR (MICRO-K) 8 mEq cpER take 1 capsule by mouth once daily with BREAKFAST rizatriptan (MAXALT) 10 mg tablet Take 1 tablet by mouth at onset of headache. May repeat after 1hr alendronate (FOSAMAX) 70 mg tablet take 1 tablet by mouth ONCE EACH WEEK, IN THE MORNING WITH A FULL GLASS OF WATER, ON AN EMPTY STOMACH, AND DO NOT TAKE ANYTHING ELSE BY MOUT calcium carbonate 600 mg-cholecalciferol 400 units (CALCIUM 600 + D) 600 mg(1,500mg) -400 unit tab Take 1 tablet by mouth once daily. omega-3 fatty acids 1,000 mg cap Take 2 capsules by mouth once daily. abatacept (ORENCIA, WITH MALTOSE,) 250 mg injection Inject 750 mg intravenously once every month. No current facility-administered medications for this visit. REVIEW OF SYSTEMS: December 11, 2017 CONSTITUTIONAL: Fever: No Fatigue: Yes Pain: No EYES: Pain: No Redness: No Loss of vision: No Dryness: No EAR, NOSE, MOUTH, THROAT: Nose bleeds: No Hearing loss: Yes Sores in mouth: No Swallowing problems: No Dry mouth: Yes CARDIOVASCULAR: Chest pain: Yes Swelling in the feet or legs: No RESPIRATORY: Shortness of breath: No Pain with breathing: No Chronic cough: No Coughing up blood: No GASTROINTESTINAL: Heartburn: No Nausea: No Diarrhea: No Blood in the stool or black stool: No Abdominal pain: No GENITOURINARY: Blood in urine: No Pain or burning on urination: No MUSCULOSKELETAL: Joint pain: Yes Joint swelling: Yes Morning stiffness in joints: Yes Muscle weakness: Yes Back pain: Yes SKIN: Rashes: No Sun sensitive rashes: Yes Color changes of hands or feet in the cold: No Hair loss: No Nail changes: Yes NEUROLOGICAL: Headaches: Yes Dizziness: No Numbness or tingling: No Memory loss: No Seizures: No HEMATOLOGIC/LYMPHATIC: Swollen glands: No Anemia: No ALLERGIES/IMMUNOLOGIC: Allergies (other than medications): No Increased susceptibility to infection: No KNOWN MEDICAL CONDITIONS: Diabetes: No Thyroid disease: No High blood pressure: No Physical Exam BP 127/63 (BP Site: Right Arm, BP Position: Sitting, BP Cuff Size: Regular Adult) Pulse 79 Temp 36.7 ?C (98.1 ?F) (Oral) General appearance: well appearing, alert, in no acute distress and well-hydrated, well nourished Eyes: Anicteric sclera. Pupils are equally round and reactive to light. Extraocular movements are intact. No conjunctival pallor ENT: Lips, teeth, and gums normal. Oropharynx and tongue normal. No lesions or exudate. Neck: No mass or asymmetry. Resp: Normal respiratory effort. Clear to auscultation. No wheezes CV: RRR without murmur. No lower extremity edema Abdom: BS normal. Lymphatic: Normal exam of the neck Skin: No rash, thickening, nodules, discoloration. Musculoskeletal: No joint pain, synovitis, swelling or tenderness. FROM upper and lower extremity joints, pain in R shoulder with ROM L foot in walking boot Neuro: Gait- antalgic with cane. Cranial nerves II-XII grossly intact. Sensory exam normal. Peripheral pulses: 2+ DP pulses bilaterally LABS Component Latest Ref Rng AND Units 12/03/2017 Glucose 74 - 99 mg/dL 85 BUN 7 - 21 mg/dL 19 Creatinine 0.58 - 0.96 mg/dL 0.86 Sodium 136 - 144 mmol/L 141 Potassium 3.7 - 5.1 mmol/L 4.8 Chloride 97 - 105 mmol/L 101 CO2 22 - 30 mmol/L 26 Anion Gap 9 - 18 mmol/L 14 Calcium 8.5 - 10.2 mg/dL 9.7 eGFR- >60 eGFR-All Other Races . >60 Albumin 3.9 - 4.9 g/dL 3.9 Bilirubin, Total 0.2 - 1.3 mg/dL 0.2 Bilirubin, Conjug <0.2 mg/dL <0.2 Alkaline Phosphatase 32 - 117 U/L 62 AST 13 - 35 U/L 24 ALT 7 - 38 U/L 12 Protein, Total 6.3 - 8.0 g/dL 6.8 Assessment: (M05.79) Rheumatoid arthritis involving multiple sites with positive rheumatoid factor (HCC) (primary encounter diagnosis) (E55.9) Vitamin D deficiency (M81.0) Senile osteoporosis 62 year old female with PMH significant for rheumatoid arthritis presents for follow up. Was doing well on monthly Orencia infusions at [facility]. Currently being treated for LTBI with Rifampin. Infusions have been on hold since . Left message for her infectious disease doctor, Dr. Choi ([phone]) to see when we can resume Orencia infusions Will fax orders to [facility] once I have documentation from his office that it is OK to resume Osteopenia with recent L foot fracture. She is on fosamax. Due for repeat DXA after 02/21/18- ordered today Has not been taking calcium/vitamin D. Reinforced the importance of staying on these medications. Checking vitamin D level today. Plan: Labs today Will resume Orencia once cleared by infectious disease Schedule DXA after 02/21/18 Follow up 6 months 25 minutes spent [id number] with the patient during this office visit during which counseling or coordination of care activities account for more than 50 percent of this office visit. MARY Contreras APRN.MARY 12/11/2017 1:15 PM Signed Have your labs done Schedule bone density AFTER 02/21/[address] Choi and send you a [employer] message once I get his approval to resume infusions Referring Provider: LAITH GLASGOW ([facility]) [[id number]] Allergies As of Date: 12/11/2017 Noted Allergy Reaction CODEINE 10/26/2004 2 - Rash 9 - Itching DARVOCET A500 (PROPOXYPHENE N-JESSICA*10/26/2004 2 - Rash 9 - Itching DARVON (PROPOXYPHENE HCL) 10/26/2004 2 - Rash 9 - Itching DAYPRO (OXAPROZIN) 01/02/2005 2 - Rash EFFEXOR (VENLAFAXINE HCL) 01/02/2005 5 - Intolerance Comments: decreased libido FLEXERIL (CYCLOBENZAPRINE HCL) 01/02/2005 8 - GI Upset 11 - Vomiting GABAPENTIN 12/15/2015 1 - Mental Status Change Comments: hangover NORCO (HYDROCODONE-ACETAMINOPHEN) 01/02/2005 8 - GI Upset 9 - Itching Comments: nausea, itching OXYBUTYNIN 11/20/2011 14 - Other: See Comments Comments: Urinary retention PINE TREES (TREES) 12/07/2008 Comments: rash TALWIN (PENTAZOCINE LACTATE) 01/02/2005 9 - Itching Comments: GI upset ULTRAM (TRAMADOL HCL) 01/02/2005 8 - GI Upset VIOXX (ROFECOXIB) 01/02/2005 2 - Rash Date Reviewed: 12/11/2017 Reviewed by: Karli Oropeza Ma - Fully Assessed Primary Visit Diagnosis:Rheumatoid arthritis involving multiple sites with positive rheumatoid factor (HCC) [M05.79] Other Visit Diagnoses:Vitamin D deficiency [E55.9] Senile osteoporosis [M81.0]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 Comment: IG% - Immature Granulocytes (promyelocytes, myelocytes and metamyelocytes) > 1% indicates that a LEFT SHIFT is Present. LAB L100.2620 2.0-7.7 X10 3/uL Normal Absolute Neut 5.7 LAB L100.2720 0.83-4.51 X10 3/ul Normal Absolute Lymph 2.03 Performed By: #### L100.0100 #### [facility] [address] [place], [place], [address] BASIC METABOLIC Collected: 12/07/2017 Status: F Source: [place] PROFILE (BMP) 11:20 AM [facility] REPOSITORY TYPE CODE TESTS RESULT OUT OF RANGE REFERENCE UNITS LAB L501.0100 74-106 mg/dL High GLU 112 Result Comment: Fasting Glucose result from 100 to 125 mg/dL suggests IMPAIRED HOMEOSTASIS per A.D.A. criteria. Please note revised GLUCOSE reference range effective 2017. LAB L501.1000 7-18 mg/dL Normal BUN 12 LAB L501.1100 0.55-1.02 mg/dL Normal CREAT,SERUM 0.80 Result Comment: The validity of the calculated GFR AND GFRAA in patients over 70 years has not been determined. Clinical correlation is essential. LAB L501.1110 >60 mL/min Normal EST GFR 78 Result Comment: Non- GFR Calc LAB L501.1115 >60 mL/min Normal EST GFR - AA 94 Result Comment: GFR Calc LAB L501.1255 ml/min Normal Estimated CRCL 64.58 LAB L501.1300 10-20 RATIO Normal BUN/CRE 15.0 LAB L501.2200 8.5-10 mg/dL Normal .1 CA 8.9 LAB L501.5300 136-14 mmol/L Normal 5 NA 139 LAB L501.5600 3.5-5. mmol/L Normal 1 K 3.9 LAB L501.5900 98-107 mmol/L Normal CL 107 LAB L501.6100 21.0-3 mmol/L Normal 2.0 CO2 24.0 LAB L501.6200 5-15 Normal GAP 8 Performed By: #### L500.2500 #### [facility] [address] [place], [address] EMERGENCY DEPARTMENT Observed: 12/07/2017 Status: F Source: [place] SUMMARY 12:36 AM [facility] REPOSITORY [facility] Medical Records Department [address] [facility] [address] Emergency Department Summary 12/06/17 2345 MR#: [id number] Acct: [id number] Name: DAVID BERG Rep #: [id number] : 1955 62 From: Isaac Howell MD PCP: Rodney Pool MD Status: DEP ER - ER Visit Summary Date of Service: 12/06/17 Chief Complaint: Abdominal pain History of Present Illness: The patient is a [address] Pool. She reports her last bout was 3 days ago and typically she goes 3 times a day. She starts that she took 3 stool softeners and a Dulcolax yesterday. She performed an enema yesterday. Today she drank a bottle of mag citrate and is still not had about bowel movement. 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 Patient reports that she has diffuse abdominal pain began 2 days ago. Sick continuous waxing and waning pain. Is 1010 hrs. and 710 currently. Is worsened by nothing relieved by heating pad. She reports is been nausea and vomiting. This began yesterday. She is vomited 10 times. No blood or emesis. Patient reports she had a colonoscopy approximately 7 years ago. Physical Examination: Vitals: Stable. Afebrile. General: Well-nourished and well-developed. Head: Normocephalic atraumatic. Neck: Supple, no lymphadenopathy. No JVD. Nontender. Cardiovascular: Regular rate and rhythm. No murmurs. Respiratory: No respiratory distress. Clear to auscultation bilaterally. Abdominal: Soft, mild diffuse tenderness palpation and moderate left lower quadrant suprapubic tenderness, nondistended, normal bowel sounds. No guarding, rebound, or peritoneal signs. Back: Nontender. Extremities: Nontender, no edema. Skin: Normal color, no rash. Neurologic: Alert and oriented 3. Cranial nerves II through XII are intact. Normal strength and sensation. Psych: Normal affect. Test Results: CBC is normal. Chem-7 is more for glucose of 118. LFTs are normal. Lipase normal. UA is negative. Lactic acid is 1.3. Clinical Impression(s) from Imaging Studies KUB X-Ray 12/06/17 18:50 IMPRESSION: Nonspecific moderate general increase in bowel gas, predominantly colonic bowel gas with moderate stool. Cholelithiasis. Electronically Signed: Cristiana Castro MD at 19:45 EDT , Service support , Abdomen/Pelvis CT 12/06/17 19:16 IMPRESSION: Stool filled colon with dense solid stool of the sigmoid and distal colon, potential impaction. Minimal diverticulosis of the colon without evidence of diverticulitis. Some general stranding of the transverse mesial colon, nonspecific not apparently related to peridiverticular inflammation. Mild free fluid of the pelvis. Otherwise negative for bowel obstruction or perforation. A normal appendix is visualized. Negative for pelvic mass or free fluid of the pelvis. Cholelithiasis in a nondistended gallbladder. Mild general dilatation of the pancreatic duct without a visible abnormality of the pancreatic head on noncontrast CT imaging. No acute renal findings. Negative for hydronephrosis, renal, ureteral or bladder stones. Electronically Signed: Cristiana Castro MD at 20:48 EDT , Service support , Emergency Department Course and Treatment: Patient was treated morphine and Zofran IV. She was given Bentyl p.o. She is resting comfortably. She was treated with a soapsuds enema with no results. Treatment Plan: I do not feel the patient requires admission to the hospital. I do think that she could benefit from an outpatient colonoscopy. She will be discharged with instructions to use sorbitol to get her bowels to move. And follow-up with Dr. Griffith in 1-2 weeks for further evaluation and potential colonoscopy. She is for instructed to follow with her primary care physician 1-2 days if she does not have a bowel movement. Return to the emergency department for any worsening symptoms. Disposition: To home in improved and stable condition. Impression: 1. Constipation. This note was generated with Ubimo[employer] software. It may contain incorrect words, spelling, and punctuation that were not noted in review of the chart prior to signing ED Disposition - Plan for ED Patient: Chief Complaint: Abd Pain Instructions: ED Constipation Referrals: Rodney Pool MD [Primary Care Provider] - 1-2 Days if not improving Leesa Griffith MD [STAFF PHYSICIAN] - 1-2 Weeks Additional Instructions: Icebreakers with sorbitol What to do if you have Problems For any increased pain, shortness of breath, bleeding, nausea or vomiting, chest pain, or any unexpected problems, contact your Primary Care Provider. Call [facility] ([phone]) or report to the closest Emergency Room. Call 911 if necessary. 12/07/17 0036 <Electronically signed by Isaac Howell MD> Date Isaac Howell MD Cosigner Signature (If Indicated): Date CC: Rodney Pool MD URINALYSIS, COMPLETE Collected: 12/06/2017 Status: F Source: [place] 8:57 PM [facility] REPOSITORY Order Comment: How was Urine Obtained? CLEAN CATCH TYPE CODE TESTS RESULT OUT OF RANGE REFERENCE UNITS LAB L400.3000 Yellow COLOR Normal Yellow LAB L400.3050 Clear Normal CLARITY Clear LAB L400.3200 Normal mg/dl Normal GLUCOSE, UR Normal LAB L400.3300 Negative mg/dL Normal BILIRUBIN URINE Negative LAB L400.3400 Negative mg/dl Normal KETONE UR Negative LAB L400.3465 1.002-1.030 Normal SP.GR. DIPSTX 1.010 LAB L400.3550 5.0 - 8.0 pH UR Normal 8.0 LAB L400.3600 Negative mg/dl PROT Normal DIPSTX Negative LAB L400.3700 Normal mg/dl Normal UROBILI Normal LAB L400.3750 Negative Normal NITRITE UR Negative LAB L400.3780 Negative /ul Normal OCCULT BLOOD-UR Negative LAB L400.3800 Negative /ul High LEUK ESTERASE 100 LAB L400.4050 0-5 /hpf WBC Normal 0-5 SEEN LAB L400.4100 0-5 /hpf 0 Normal RBC-UA SEEN LAB L400.4150 5-10 /hpf SQUAM Normal EPI 0-5 SEEN LAB L400.4300 None Seen /hpf 0 Normal BACTERIA SEEN LAB L400.4350 <or=2+ /hpf 0 Normal MUCUS, URINE SEEN LAB L400.4900 1+ Normal AMORPHOUS Performed By: #### L400.0001 #### [facility] [address] [place], [place], [address] LACTIC ACID Collected: 12/06/2017 Status: F Source: [place] 8:10 PM [facility] REPOSITORY Order Comment: Yes/No query for Sepsis Lactate Rule Y TYPE CODE TESTS RESULT OUT OF RANGE REFERENCE UNITS LAB L503.6005 0.4-2.0 mmol/L Normal LACTIC ACID 1.3 Performed By: #### L503.6005 #### [facility] [address] [place], [place], [address] CBC W/DIFF, AUTOMATED Collected: 12/06/2017 Status: F Source: [place] 8:00 PM [facility] REPOSITORY TYPE CODE TESTS RESULT OUT OF RANGE REFERENCE UNITS LAB L100.1000 4.4-11.0 K/mm3 Normal WBC 10.5 LAB L100.1200 4.2-5.4 M/mm3 Normal RBC 4.45 LAB L100.1300 12.0-15.0 g/dl Normal HGB 13.8 LAB L100.1400 37-47 % Normal HCT 41.8 LAB L100.1500 81-99 fL Normal MCV 93.9 LAB L100.1600 27.0-32.0 pg Normal MCH 31.0 LAB L100.1700 32-36 g/gl Normal MCHC 33.0 LAB L100.1810 11.6-14.6 % Normal RDW CV 14.4 LAB L100.1820 35.1-43.9 fl High RDW SD 49.3 LAB L100.1900 150-450 K/mm3 Normal PLT 272 LAB L100.2000 6.2-12.0 fl Normal MPV 10.4 LAB L100.2100 47-70 % Normal NEUT% 64.1 LAB L100.2200 19-41 % Normal LY% 29.7 LAB L100.2300 0-10 % Normal MONO% 5.7 LAB L100.2400 0-5 % Normal EO% 0.2 LAB L100.2500 0-1 % Normal BASO% 0.1 LAB L100.2550 0.0-0.9 % Normal IM GRAN % 0.200 Result Comment: IG% - Immature Granulocytes (promyelocytes, myelocytes and metamyelocytes) > 1% indicates that a LEFT SHIFT is Present. LAB L100.2620 2.0-7.7 X10 3/uL Normal Absolute Neut 6.7 LAB L100.2720 0.83-4.51 X10 3/ul Normal Absolute Lymph 3.10 Performed By: #### L100.0100 #### [facility] [address] [place], [place], [address] BASIC METABOLIC Collected: 12/06/2017 Status: F Source: [place] PROFILE ([facility]) 8:00 PM [facility] REPOSITORY TYPE CODE TESTS RESULT OUT OF RANGE REFERENCE UNITS LAB L501.0100 74-106 mg/dL High GLU 118 Result Comment: Fasting Glucose result from 100 to 125 mg/dL suggests IMPAIRED HOMEOSTASIS per A.D.A. criteria. Please note revised GLUCOSE reference range effective 2017. LAB L501.1000 7-18 mg/dL Normal BUN 17 LAB L501.1100 0.55-1.02 mg/dL Normal CREAT,SERUM 0.83 Result Comment: The validity of the calculated GFR AND GFRAA in patients over 70 years has not been determined. Clinical correlation is essential. LAB L501.1110 >60 mL/min Normal EST GFR 74 Result Comment: Non- GFR Calc LAB L501.1115 >60 mL/min Normal EST GFR - AA 90 Result Comment: GFR Calc LAB L501.1255 ml/min Normal Estimated CRCL 62.24 LAB L501.1300 10-20 RATIO High BUN/CRE 20.4 LAB L501.2200 8.5-10 mg/dL Normal .1 CA 9.3 LAB L501.5300 136-14 mmol/L Normal 5 NA 138 LAB L501.5600 3.5-5. mmol/L Normal 1 K 3.8 LAB L501.5900 98-107 mmol/L Normal CL 104 LAB L501.6100 21.0-3 mmol/L Normal 2.0 CO2 25.0 LAB L501.6200 5-15 Normal GAP 9 Performed By: #### L500.2500, L500.3400, L501.2450 #### [facility] [address] [facility] [place], [place], [id number] LIVER PROFILE Collected: 12/06/2017 Status: F Source: [place] 8:00 PM [facility] REPOSITORY TYPE CODE TESTS RESULT OUT OF RANGE REFERENCE UNITS LAB L501.1500 6.4-8.2 g/dL Normal T PROT 7.6 LAB L501.1800 3.2-5.0 g/dL Normal ALB 3.5 LAB L501.1950 2.2-4.2 g/dL Normal GLOB 4.1 LAB L501.4100 15-37 U/L Normal AST 21 LAB L501.4305 45-117 U/L Normal ALK P 70 LAB L501.4405 13-56 U/L Normal ALT 17 LAB L501.4600 0.20-1.00 mg/dL Normal T BILI 0.20 LAB L501.4700 0.00-0.30 mg/dL Normal D BILI 0.06 Performed By: #### L500.2500, L500.3400, L501.2450 #### [facility] [address] [facility] [place], [address] LIPASE Collected: 12/06/2017 Status: F Source: [place] 8:00 PM [facility] REPOSITORY TYPE CODE TESTS RESULT OUT OF RANGE REFERENCE UNITS LAB L501.2450 73-393 U/L Normal LIPASE 209 Performed By: #### L500.2500, L500.3400, L501.2450 #### [facility] [address] [place], [address] ABDOMEN/PELVIS WITHOUT Observed: 12/06/2017 Status: F Source: [place] CONT 7:17 PM [facility] REPOSITORY [facility] Imaging Services [address] [place] [address] Abdomen/Pelvis without Cont MR#: [id number] Acct: [id number] Name: DAVID BERG Rep #: [id number] : 1955 F 62 From: Cristiana Castro MD PCP: Rodney Pool MD Status: REG ER Study: Abdomen/Pelvis without Cont Date of Exam: 12/06/17 Exam# [id number] Ordering Dr: Isaac Howell MD STUDY: CT ABDOMEN AND PELVIS WITHOUT CONTRAST REASON FOR EXAM: Female, 62 years old. Constipation, nausea and vomiting. RADIATION DOSAGE (If Supplied By Facility): CTDIvol = ( 7.89 ) mGy, DLP = ( 354.60 ) mGycm TECHNIQUE: Transaxial images were obtained from the dome of the diaphragm to the symphysis pubis without oral contrast, and without intravenous contrast. Sagittal and coronal images were reconstructed. Individualized dose optimization techniques were used for this CT. COMPARISON: None. FINDINGS: The visualized lung bases are unremarkable. The visualized portions of the heart are within normal limits. Normal liver. Multiple moderate-sized gallstones and a nondistended gallbladder. Normal spleen. Mild dilatation of the pancreatic duct without other identified abnormality of the pancreas. Normal bilateral adrenal glands. Normal right kidney. Normal left kidney. Normal visualized stomach. Normal small intestine. Stool filled colon mildly distended. Minimal diverticulosis without evidence of acute diverticulitis. The appendix is visualized and appears normal. There is diffuse atherosclerotic calcification of the abdominal aorta, without a demonstrated aneurysm. Normal inferior vena cava. Normal retroperitoneum. Normal urinary bladder. Negative for pelvic mass or free fluid of the pelvis. Mild free fluid of the pelvis. Normal abdominal wall. Mild degenerative changes of the lumbar spine. Mild old superior and plate concavity of T12. CT/Abdomen/Pelvis without Cont IMPRESSION: Stool filled colon with dense solid stool of the sigmoid and distal colon, potential impaction. Minimal diverticulosis of the colon without evidence of diverticulitis. Some general stranding of the transverse mesial colon, nonspecific not apparently related to peridiverticular inflammation. Mild free fluid of the pelvis. Otherwise negative for bowel obstruction or perforation. A normal appendix is visualized. Negative for pelvic mass or free fluid of the pelvis. Cholelithiasis in a nondistended gallbladder. Mild general dilatation of the pancreatic duct without a visible abnormality of the pancreatic head on noncontrast CT imaging. No acute renal findings. Negative for hydronephrosis, renal, ureteral or bladder stones. Electronically Signed: Cristiana Castro MD at 20:48 EDT , Service support , CC: Rodney Pool MD; Isaac Howell MD Creative Developer: Signed ABDOMEN SINGLE VIEW Observed: 12/06/2017 Status: F Source: [place] 6:45 PM [facility] REPOSITORY [facility] Imaging Services [address] [place] [id number] Abdomen Single View MR#: [id number] Acct: [id number] Name: DAVID BERG Rep #: [id number] : 1955 F 62 From: Cristiana Castro MD PCP: Rodney Pool MD Status: REG ER Study: Abdomen Single View Date of Exam: 12/06/17 Exam# [id number] Ordering Dr: Isaac Howell MD STUDY: X-RAY - ABDOMEN/PELVIS REASON FOR EXAM: Female, 62 years old. Lower abdominal pain for 2 days. TECHNIQUE: 1 view COMPARISON: None. FINDINGS: Nondistended stomach. Nondistended small bowel. Nonspecific increase primarily colonic bowel gas with moderate stool. There is no demonstrated free abdominal air. Negative for organomegaly. Multiple calcifications of the right upper quadrant in a row consistent with gallstones. Normal soft tissue structures. Normal visualized osseous structures. RAD/Abdomen Single View IMPRESSION: Nonspecific moderate general increase in bowel gas, predominantly colonic bowel gas with moderate stool. Cholelithiasis. Electronically Signed: Cristiana Castro MD at 19:45 EDT , Service support , CC: Rodney Pool MD; Isaac Howell MD Creative Developer: Signed BASIC METABOLIC PANL Collected: 12/03/2017 Status: F Source: [place] 11:32 AM [facility] REPOSITORY TYPE CODE TESTS RESULT OUT OF REFERENCE UNITS RANGE LAB GLU 74-99 mg/dL Glucose 85 Result Comment: The [place] [employer] (ADA) provides guidance for cutoff values for fasting glucose and random glucose. The ADA defines fasting as no caloric intake for at least 8 hours. Fas ting plasma glucose results between 100 to 125 mg/dL indicate increased risk for diabetes (prediabetes). Fasting plasma glucose results greater than or equal to 126 mg/dL meet the criteria for diagnosis of diabetes. In the absence of unequivocal hyperglycemia, results should be confirmed by repeat testing. In a patient with classic symptoms of hyperglycemia or hyperglycemic crisis, random plasma glucose results greater than or equal to 200 mg/dL meet the criteria for diagnosis of diabetes. Reference: Standards of Medical Care in Diabetes 2016, [place] [employer]. Diabetes Care. 2016.39(Suppl 1). LAB BUN 7-21 mg/dL BUN 19 LAB CRET 0.58-0.96 mg/dL Creatinine 0.86 LAB NA 136-144 mmol/L Sodium 141 LAB K 3.7-5.1 mmol/L Potassium 4.8 LAB CL 97-105 mmol/L Chloride 101 LAB CO2 22-30 mmol/L CO2 26 LAB AGAP 9-18 mmol/L Anion Gap 14 LAB CA 8.5-10.2 mg/dL Calcium, Total 9.7 LAB GFRAA eGFR- Amer. >60 LAB GFRNAA . eGFR-All Other Races >60 Result Comment: eGFR (Estimated GFR) Units of measure: mL/min/1.73 meters squared eGFR is derived from the reexpressed MDRD Study equation using the following parameters: serum creatinine, age, gender and race. The creatinine assay has been calibrated to be traceable to IDMS. An eGFR <60 mL/min/1.73m2 for >3 months is consistent with chronic kidney disease. Refer to KDOQI guidelines for clinical interpretation. In patients with unstable renal function, e.g. those with acute kidney injury, the eGFR may not accurately reflect actual GFR. Performed By: #### BMP, [facility] #### [facility] [employer] [address] [id number] HEPATIC FUNCTN PANEL Collected: 12/03/2017 Status: F Source: [place] 11:32 AM [facility] REPOSITORY TYPE CODE TESTS RESULT OUT OF REFERENCE UNITS [facility] ALB 3.9-4.9 g/dL Albumin 3.9 LAB TBIL 0.2-1.3 mg/dL Bilirubin, Total 0.2 LAB CBIL <0.2 mg/dL Bilirubin,Conjuga <0.2 mor LAB ALKP 32-117 U/L Alkaline Phosphatase 62 LAB AST 13-35 U/L AST 24 LAB ALT 7-38 U/L ALT 12 LAB TP 6.3-8.0 g/dL Protein, Total 6.8 Performed By: #### BMP, [facility] #### [facility] [address] [place], [place] [id number] EMERGENCY DEPARTMENT Observed: 10/13/2017 Status: F Source: [place] SUMMARY 8:22 PM [facility] REPOSITORY [facility] Medical Records Department [address] [place] [address] Emergency Department Summary 10/13/171918 MR#: [id number] Acct: [id number] Name: DAVID BERG Rep #: [id number] : 1955 61 From: Mehran Alatorre DO PCP: Rodney Pool MD Status: REG ER - ER Visit Summary Date of Service: 10/13/17 Chief Complaint: Left ankle pain History of Present Illness: The patient is a 61 F who presents with left ankle pain that began after a fall today. Patient states she fell down some wooden steps while carrying her dog. Patient denies any head injury or loss of consciousness. Patient states her pain is worse with any movement. Patient denies any knee pain. Patient denies any other injuries. Physical Examination: Vital signs are stable. Patient is afebrile. Patient is in no acute distress. Skin is warm and dry. There is superficial abrasions over the anterior ankle and lateral aspect of the left foot. There are no deep lacerations noted. There is no active bleeding. Musculoskeletal exam revealed tenderness, edema, and ecchymosis over the lateral aspect of the left ankle and left foot. There is no obvious deformity noted. Range of motion was limited in all motions of the left ankle secondary to pain. Pedal pulses are equal bilateral. Sensation was intact to light touch in all digits. Capillary refill is less than 2 seconds in all digits. There is no tenderness over the proximal fibula. Test Results: X-rays of the left ankle and left foot were obtained. There is a nondisplaced fracture of the left proximal fifth metatarsal. There is also a small avulsion of the lateral malleolus. Emergency Department Course and Treatment: Patient was placed in a boot orthosis. Patient was instructed to ice and elevate the left ankle. Patient was instructed to follow-up with orthopedics in 5-7 days. Patient understood and was agreeable with the plan. All questions were answered. Disposition: Discharged home Impression: Left fifth metatarsal fracture This note was generated with [employer] dictation software. It may contain incorrect words, spelling, and punctuation that were not noted in review of the chart prior to signing ED Disposition - Plan for ED Patient: Disposition: Home or Assisted Living Chief Complaint: Lower Extremity Injury Diagnosis: Nondisplaced fracture of fifth left metatarsal bone Instructions: ED Fx Foot Prescriptions: Hydrocodone Bitart/Apap 5-325 [[place] 5MG-325MG] 1 tab PO Q6H PRN PRN 3 Days #12 tab PRN Reason: Pain Referrals: Rodney Pool MD [Primary Care Provider] - What to do if you have Problems For any increased pain, shortness of breath, bleeding, nausea or vomiting, chest pain, or any unexpected problems, contact your Primary Care Provider. Call [facility] ([phone]) or report to the closest Emergency Room. Call 911 if necessary. 10/13/172021 <Electronically signed by Mehran Alatorre DO> Date Mehran Alatorre DO Cosigner Signature (If Indicated): Date CC: Rodney Pool MD ANKLE MIN 3 VIEWS Observed: 10/13/2017 Status: F Source: [place] 7:18 PM [facility] [place] REPOSITORY [facility] Imaging Services [address] [place] [id number] Ankle min 3 Views MR#: [id number] Acct: [id number] Name: DAVID BERG Rep #: [id number] : 1955 F 61 From: Otis Calvin MD PCP: Rodney Pool MD Status: REG ER Study: Ankle min 3 Views Date of Exam: 10/13/17 Exam# [id number] Ordering Dr: Mehran Alatorre DO STUDY: X-RAY - LEFT ANKLE REASON FOR EXAM: Female, 61 years old. Fall. Lateral pain and swelling. TECHNIQUE: 3 view(s) of the ankle. COMPARISON: None. FINDINGS: There is a minimally displaced avulsion fracture of the tip of the lateral malleolus. There is overlying soft tissue swelling. Normal tibiotalar articulation and ankle mortise. There is a comminuted minimally displaced fracture of the base of the fifth metatarsal. Normal visualized talus and calcaneus. The visualized subtalar, talonavicular, calcaneocuboid and tarsal articulations are normal. The soft tissue structures are otherwise unremarkable. RAD/Ankle min 3 Views IMPRESSION: Minimally displaced avulsion fracture of the tip of the lateral malleolus with overlying soft tissue swelling. Comminuted transverse fracture of the base of the fifth metatarsal. Electronically Signed: Otis Calvin MD at 20:00 EDT , Service support , CC: Rodney Pool MD; Mehran Alatorre DO Creative Developer: Signed FOOT MIN 3 VIEWS Observed: 10/13/2017 Status: F Source: [place] 7:18 PM [facility] [place] REPOSITORY [facility] Imaging Services [address] [place] [address] Foot min 3 Views MR#: [id number] Acct: [id number] Name: DAVID BERG Rep #: [id number] : 1955 F 61 From: Otis Calvin MD PCP: Rodney Pool MD Status: REG ER Study: Foot min 3 Views Date of Exam: 10/13/17 Exam# [id number] Ordering Dr: Mehran Alatorre DO STUDY: X-RAY - LEFT FOOT CLINICAL: Female, 61 years old. Fall. Lateral ankle pain. TECHNIQUE: 3 view(s) of the foot. COMPARISON: None. FINDINGS: Normal talus, calcaneus, and tarsal bones. Normal visualized subtalar, talonavicular, calcaneocuboid, tarsal and tarsometatarsal articulations. There is a comminuted minimally displaced fracture of the base of the fifth metatarsal. An avulsion fracture of the tip of the lateral malleolus is also seen but is better seen on the dedicated ankle series. Normal metatarsophalangeal joint of the great toe. Normal tibial and fibular sesamoid bones. Normal interphalangeal joint of the great toe. Normal phalanges of the great toe. Normal second through fifth metatarsophalangeal joints. Normal interphalangeal joints and phalanges of the lesser toes. The soft tissue structures are unremarkable. RAD/Foot min 3 Views IMPRESSION: Fractures of the tip of the lateral malleolus and base of the fifth metatarsal as described. Electronically Signed: Otis Calvin MD at 20:01 EDT , Service support , CC: Rodney Pool MD; Mehran Alatorre DO Creative Developer: Signed PROGRESS Observed: 10/07/2017 Status: COMPLETED Source: [place] 11:49 AM [facility] REPOSITORY HNO ID: [id number] Author: Lizbeth Lopez) Corine Service: (none) Author Type: Physician Type: Progress Notes Filed: 10/07/2017 2:07 PM Note Text: Chief Complaint No chief complaint on file. HPI David Berg is a 61 year old female who presents here today for medication refill appointment. Called in requesting refill on Soma, but had not been seen in last 6 months. Patient requesting Soma for chronic neck spasms 2/2 previous cervical vertebral fracture in 2011. Working well for symptoms as prescribed. Not following up with pain management at this time. Needs refill on Requip for RLS and tretinoin. Complaining today of some intermittent chest pain as well. Has been present for the last 1-2 months and described as sharp stabbing pain over left side of chest without radiation to back, neck, or arm. Typically sitting when pain occurs and resolves in <5 minutes. Admits to occasional SOB. Denies nausea, diaphoresis, worsening with exertion, improvement with rest. Has not taken anything for pain. Not sure if related to anxiety. Past medical history, appointments, medications, allergies reviewed. Previous Medical History PAST MEDICAL HISTORY Diagnosis Date - Acute hepatitis C without mention of hepatic coma(070.51) - Anxiety state 05/29/2005 - Bulimia 02/16/2013 - Cervical vertebral fracture (HCC) 05/07/2011 - Chronic obstructive pulmonary disease (COPD) ([facility]) - Cleft lip, unspecified 01/24/2005 - Contact dermatitis and other eczema, due to unspecified cause 09/07/2011 - DDD (degenerative disc disease), cervical 05/07/2011 - Depressive disorder, not elsewhere classified - Epileptic petit mal status ([facility]) last one was at least 10 yrs ago - Generalized osteoarthrosis, unspecified site neck - HEPATITIS C CARRIER--treated with IFN and ribavirin and is in remission (as of 05/21) 05/29/2005 - HNP (herniated nucleus pulposus), lumbar 06/27/2015 - Hyperlipidemia - Migraine headache 02/15/2012 - 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 Bowden - RLS (restless legs syndrome) 08/29/2011 - Vitamin D deficiency Previous Surgical History PAST SURGICAL HISTORY Procedure Laterality Date - COCHLEAR IMPLANT HX - COLONOSCOP W/ OR W/O BRSH SPEC 10/11/2009 Colonoscopy - OPEN RX NOSE FRACTURE x2 no breathing problems - PAST SURGICAL HISTORY OF X 2 - PAST SURGICAL HISTORY OF FACIAL RECONSTRUCTION - PAST SURGICAL HISTORY OF 1997 BILAT. SHOULDER SURGERY - PAST SURGICAL HISTORY OF 1994 CERVICAL SPINE FUSION C4, C5 (had cervical fx x3 - even after repair) - PAST SURGICAL HISTORY OF 1969 LEFT EAR CHOLESTEATOMA - PAST SURGICAL HISTORY OF CLEFT LIP - PAST SURGICAL HISTORY OF REBUILD JAW - PAST SURGICAL HISTORY OF 02/2006 lasik - PAST SURGICAL HISTORY OF 2004 bladder sling - TRACHEOSTOMY,EMERG,XTRACH age 3 or 4 during surgery; lost airway Family History FAMILY HISTORY Problem Relation Age of Onset - Stroke Mother - Hypertension Mother - Diabetes Father - Cancer Father melanoma - Cancer Sister thyroid - Cancer Brother 21 testicular - Breast Cancer Sister - Breast Cancer Sister - Breast Cancer Maternal Aunt - Cancer Other X-qhqpdg-Uasllitqdj Patient Allergies ALLERGIES Allergen Reactions - Codeine Rash, Itching - Darvocet A500 [Prop* Rash, Itching - Darvon [Propoxyphen* Rash, Itching - Daypro [Oxaprozin] Rash - Effexor [Venlafaxin* Intolerance decreased libido - Flexeril [Cyclobenz* GI Upset, Vomiting - Gabapentin Mental Status Change hangover - [place] [Hydrocodone-* GI Upset, Itching nausea, itching - Oxybutynin Other: See Comments Urinary retention - [place] [Trees] rash - Talwin [Pentazocine* Itching GI upset - Ultram [Tramadol Hc* GI Upset - Vioxx [Rofecoxib] Rash Current Medications Current Outpatient Prescriptions on File Prior to Visit: nicotine (NICOTROL) 10 mg inhaler Inhale 2 Puffs as instructed as needed. promethazine (PHENERGAN) 25 mg tablet Take 1 tablet by mouth every 6 hours as needed for Nausea/Vomiting. ondansetron orally disintegrating (ZOFRAN ODT) 4 mg disintegrating tablet Take 1 tablet by mouth every 12 hours as needed for Nausea/Vomiting. cholecalciferol, Vitamin D3, (VITAMIN D3) 50,000 unit cap capsule Take 1 capsule by mouth once each week. atorvastatin (LIPITOR) 20 mg tablet Take 1 tablet by mouth daily at bedtime. For cholesterol. ALPRAZolam (XANAX) 1 mg tablet Take 1 mg by mouth twice daily. QUEtiapine (SEROQUEL) 100 mg tablet Take 2 tablets by mouth daily at bedtime. potassium chloride SR (MICRO-K) 8 mEq cpER take 1 capsule by mouth once daily with BREAKFAST rizatriptan (MAXALT) 10 mg tablet Take 1 tablet by mouth at onset of headache. May repeat after 1hr rOPINIRole (REQUIP) 1 mg tablet Take 1 tablet by mouth daily at bedtime. alendronate (FOSAMAX) 70 mg tablet take 1 tablet by mouth ONCE EACH WEEK, IN THE MORNING WITH A FULL GLASS OF WATER, ON AN EMPTY STOMACH, AND DO NOT TAKE ANYTHING ELSE BY MOUT calcium carbonate 600 mg-cholecalciferol 400 units (CALCIUM 600 + D) 600 mg(1,500mg) -400 unit tab Take 1 tablet by mouth once daily. omega-3 fatty acids 1,000 mg cap Take 2 capsules by mouth once daily. tretinoin (RETIN-A) 0.025 % gel Apply 1 application to affected area daily at bedtime. DX: Psoriasis L40.9/ 696.1 isoniazid (INH, NYDRAZID) 300 mg tablet Take 1 tablet by mouth once daily. ergocalciferol, vitamin D2, (DRISDOL) 50,000 unit capsule Take 1 capsule by mouth once each week. abatacept (ORENCIA, WITH MALTOSE,) 250 mg injection Inject 750 mg intravenously once every month. (Patient not taking: Reported on 10/07/2017 ) No current facility-administered medications on file prior to visit. 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 Social History Main Topics Smoking status: Current Some Day Smoker Packs/day: 1.00 Years: 30.00 Types: Cigarettes Last attempt to quit: 01/13/2014 Smokeless tobacco: Never Used Comment: vapes Alcohol use: No Drug use: No Comment: IV DRUG USER Sexual activity: Yes Partners with: Male control/protection: Surgical Social History Narrative PT ADMITS TO IV DRUG USE IN THE Review of Symptoms REVIEW OF SYSTEMS GENERAL: No weight loss, malaise or fevers RESPIRATORY: See HPI CARDIOVASCULAR: See HPI GI: No nausea, vomiting, or diarrhea SKIN: Negative for lesions, rash, and itching EXAM: BP 124/78 Pulse 64 Resp 18 Wt 68 kg (150 lb) BMI 25.93 kg/m? General Appearance: Well appearing, alert, in no acute distress, well-hydrated, well nourished.. Skin: Skin color, texture, turgor normal, no suspicious rashes or lesions. Lungs: Lungs clear to auscultation. No wheezing, rhonchi, rales. Heart: RRR without murmur, gallop, or rubs. No ectopy. Health Maintenance List ZOSTER VACCINE (SHINGRIX)(1 of 2) due on 10/17/2007 PAP EVERY 5 YEARS due on 06/27/2017 HPV EVERY 5 YEARS due on 06/27/2017 MAMMOGRAM due on 06/28/2017 COLORECTAL CANCER SCREENING,SEE MODIFIER due on 10/12/2019 DIABETES SCREEN due on 07/25/2020 LIPID SCREEN due on 07/25/2022 DTAP,TDAP,TD(3 - Td) due on 09/15/2023 ONE PNEUMOVAX PRIOR TO AGE 65 Completed INFLUENZA Completed HEPATITIS C SCREENING Completed ASSESSMENT/PLAN: 1. Atypical chest pain - ICD9: 786.59, ICD10: R07.89 (primary diagnosis) Offered EKG and repeat CXR which patient is refusing at this time. Discussed danger if this is cardiac in nature, but patient would like to keep journal of symptoms to see if there is obvious correlation/trigger. Discussed red flag symptoms she should be seen in ED for. 2. Psoriasis - ICD9: 696.1, ICD10: L40.9 Refill tretinoin. - TRETINOIN 0.025 % TOPICAL GEL 3. RLS (restless legs syndrome) - ICD9: 333.94, ICD10: G25.81 Controlled. Refill requip. - ROPINIROLE 1 MG TABLET 4. Chronic pain syndrome - ICD9: 338.4, ICD10: G89.4 Controlled with current regimen. Refill soma. Recheck in 2- 3 months. Discuss pain management referral at future OV. - CARISOPRODOL 350 MG TABLET 5. Chronic low back pain with right-sided sciatica, unspecified back pain laterality - ICD9: 724.2, 724.3, 338.29, ICD10: M54.41, G89.29 - CARISOPRODOL 350 MG TABLET Lizbeth Pool MD CNOV Observed: 10/07/2017 Status: COMPLETED Source: [place] 11:40 AM [facility] REPOSITORY Office Visit (FAMPWS) DAVID BERG ([id number]) 1955 F Date Time Provider Department 10/07/17 11:40 AM LIZBETH POOL) FAMPWS During your visit today, we recorded the following information about you: Pulse Respiration Blood pressure Weight 64/minute 18/minute 124/78 68 kg Lizbeth Pool MD 10/07/2017 2:07 PM Signed Chief Complaint No chief complaint on file. HPI David Berg is a 61 year old female who presents here today for medication refill appointment. Called in requesting refill on Soma, but had not been seen in last 6 months. Patient requesting Soma for chronic neck spasms 2/2 previous cervical vertebral fracture in 2011. Working well for symptoms as prescribed. Not following up with pain management at this time. Needs refill on Requip for RLS and tretinoin. Complaining today of some intermittent chest pain as well. Has been present for the last 1-2 months and described as sharp stabbing pain over left side of chest without radiation to back, neck, or arm. Typically sitting when pain occurs and resolves in <5 minutes. Admits to occasional SOB. Denies nausea, diaphoresis, worsening with exertion, improvement with rest. Has not taken anything for pain. Not sure if related to anxiety. Past medical history, appointments, medications, allergies reviewed. Previous Medical History PAST MEDICAL HISTORY Diagnosis Date - Acute hepatitis C without mention of hepatic coma(070.51) - Anxiety state 05/29/2005 - Bulimia 02/16/2013 - Cervical vertebral fracture (HCC) 05/07/2011 - Chronic obstructive pulmonary disease (COPD) (HCC) - Cleft lip, unspecified 01/24/2005 - Contact dermatitis and other eczema, due to unspecified cause 09/07/2011 - DDD (degenerative disc disease), cervical 05/07/2011 - Depressive disorder, not elsewhere classified - Epileptic petit mal status (HCC) last one was at least 10 yrs ago - Generalized osteoarthrosis, unspecified site neck - HEPATITIS C CARRIER--treated with IFN and ribavirin and is in remission (as of 05/21) 05/29/2005 - HNP (herniated nucleus pulposus), lumbar 06/27/2015 - Hyperlipidemia - Migraine headache 02/15/2012 - 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 Bowden - RLS (restless legs syndrome) 08/29/2011 - Vitamin D deficiency Previous Surgical History PAST SURGICAL HISTORY Procedure Laterality Date - COCHLEAR IMPLANT HX - COLONOSCOP W/ OR W/O BRSH SPEC 10/11/2009 Colonoscopy - OPEN RX NOSE FRACTURE x2 no breathing problems - PAST SURGICAL HISTORY OF X 2 - PAST SURGICAL HISTORY OF FACIAL RECONSTRUCTION - PAST SURGICAL HISTORY OF 1997 BILAT. SHOULDER SURGERY - PAST SURGICAL HISTORY OF 1994 CERVICAL SPINE FUSION C4, C5 (had cervical fx x3 - even after repair) - PAST SURGICAL HISTORY OF 1969 LEFT EAR CHOLESTEATOMA - PAST SURGICAL HISTORY OF CLEFT LIP - PAST SURGICAL HISTORY OF REBUILD JAW - PAST SURGICAL HISTORY OF 02/2006 lasik - PAST SURGICAL HISTORY OF 2004 bladder sling - TRACHEOSTOMY,EMERG,XTRACH age 3 or 4 during surgery; lost airway Family History FAMILY HISTORY Problem Relation Age of Onset - Stroke Mother - Hypertension Mother - Diabetes Father - Cancer Father melanoma - Cancer Sister thyroid - Cancer Brother 21 testicular - Breast Cancer Sister - Breast Cancer Sister - Breast Cancer Maternal Aunt - Cancer Other S-gndzyd-Aprpsalwti Patient Allergies ALLERGIES Allergen Reactions - Codeine Rash, Itching - Darvocet A500 [Prop* Rash, Itching - Darvon [Propoxyphen* Rash, Itching - Daypro [Oxaprozin] Rash - Effexor [Venlafaxin* Intolerance decreased libido - Flexeril [Cyclobenz* GI Upset, Vomiting - Gabapentin Mental Status Change hangover - [place] [Hydrocodone-* GI Upset, Itching nausea, itching - Oxybutynin Other: See Comments Urinary retention - [place] [Trees] rash - [place] [Pentazocine* Itching GI upset - Ultram [Tramadol Hc* GI Upset - Vioxx [Rofecoxib] Rash Current Medications Current Outpatient Prescriptions on File Prior to Visit: nicotine (NICOTROL) 10 mg inhaler Inhale 2 Puffs as instructed as needed. promethazine (PHENERGAN) 25 mg tablet Take 1 tablet by mouth every 6 hours as needed for Nausea/Vomiting. ondansetron orally disintegrating (ZOFRAN ODT) 4 mg disintegrating tablet Take 1 tablet by mouth every 12 hours as needed for Nausea/Vomiting. cholecalciferol, Vitamin D3, (VITAMIN D3) 50,000 unit cap capsule Take 1 capsule by mouth once each week. atorvastatin (LIPITOR) 20 mg tablet Take 1 tablet by mouth daily at bedtime. For cholesterol. ALPRAZolam (XANAX) 1 mg tablet Take 1 mg by mouth twice daily. QUEtiapine (SEROQUEL) 100 mg tablet Take 2 tablets by mouth daily at bedtime. potassium chloride SR (MICRO-K) 8 mEq cpER take 1 capsule by mouth once daily with BREAKFAST rizatriptan (MAXALT) 10 mg tablet Take 1 tablet by mouth at onset of headache. May repeat after 1hr rOPINIRole (REQUIP) 1 mg tablet Take 1 tablet by mouth daily at bedtime. alendronate (FOSAMAX) 70 mg tablet take 1 tablet by mouth ONCE EACH WEEK, IN THE MORNING WITH A FULL GLASS OF WATER, ON AN EMPTY STOMACH, AND DO NOT TAKE ANYTHING ELSE BY MOUT calcium carbonate 600 mg-cholecalciferol 400 units (CALCIUM 600 + D) 600 mg(1,500mg) -400 unit tab Take 1 tablet by mouth once daily. omega-3 fatty acids 1,000 mg cap Take 2 capsules by mouth once daily. tretinoin (RETIN-A) 0.025 % gel Apply 1 application to affected area daily at bedtime. DX: Psoriasis L40.9/ 696.1 isoniazid (INH, NYDRAZID) 300 mg tablet Take 1 tablet by mouth once daily. ergocalciferol, vitamin D2, (DRISDOL) 50,000 unit capsule Take 1 capsule by mouth once each week. abatacept (ORENCIA, WITH MALTOSE,) 250 mg injection Inject 750 mg intravenously once every month. (Patient not taking: Reported on 10/07/2017 ) No current facility-administered medications on file prior to visit. 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 Social History Main Topics Smoking status: Current Some Day Smoker Packs/day: 1.00 Years: 30.00 Types: Cigarettes Last attempt to quit: 01/13/2014 Smokeless tobacco: Never Used Comment: vapes Alcohol use: No Drug use: No Comment: IV DRUG USER Sexual activity: Yes Partners with: Male control/protection: Surgical Social History Narrative PT ADMITS TO IV DRUG USE IN THE Review of Symptoms REVIEW OF SYSTEMS GENERAL: No weight loss, malaise or fevers RESPIRATORY: See HPI CARDIOVASCULAR: See HPI GI: No nausea, vomiting, or diarrhea SKIN: Negative for lesions, rash, and itching EXAM: BP 124/78 Pulse 64 Resp 18 Wt 68 kg (150 lb) BMI 25.93 kg/m? General Appearance: Well appearing, alert, in no acute distress, well-hydrated, well nourished.. Skin: Skin color, texture, turgor normal, no suspicious rashes or lesions. Lungs: Lungs clear to auscultation. No wheezing, rhonchi, rales. Heart: RRR without murmur, gallop, or rubs. No ectopy. Health Maintenance List ZOSTER VACCINE (SHINGRIX)(1 of 2) due on 10/17/2007 PAP EVERY 5 YEARS due on 06/27/2017 HPV EVERY 5 YEARS due on 06/27/2017 MAMMOGRAM due on 06/28/2017 COLORECTAL CANCER SCREENING,SEE MODIFIER due on 10/12/2019 DIABETES SCREEN due on 07/25/2020 LIPID SCREEN due on 07/25/2022 DTAP,TDAP,TD(3 - Td) due on 09/15/2023 ONE PNEUMOVAX PRIOR TO AGE 65 Completed INFLUENZA Completed HEPATITIS C SCREENING Completed ASSESSMENT/PLAN: 1. Atypical chest pain - ICD9: 786.59, ICD10: R07.89 (primary diagnosis) Offered EKG and repeat CXR which patient is refusing at this time. Discussed danger if this is cardiac in nature, but patient would like to keep journal of symptoms to see if there is obvious correlation/trigger. Discussed red flag symptoms she should be seen in ED for. 2. Psoriasis - ICD9: 696.1, ICD10: L40.9 Refill tretinoin. - TRETINOIN 0.025 % TOPICAL GEL 3. RLS (restless legs syndrome) - ICD9: 333.94, ICD10: G25.81 Controlled. Refill requip. - ROPINIROLE 1 MG TABLET 4. Chronic pain syndrome - ICD9: 338.4, ICD10: G89.4 Controlled with current regimen. Refill soma. Recheck in 2- 3 months. Discuss pain management referral at future OV. - CARISOPRODOL 350 MG TABLET 5. Chronic low back pain with right-sided sciatica, unspecified back pain laterality - ICD9: 724.2, 724.3, 338.29, ICD10: M54.41, G89.29 - CARISOPRODOL 350 MG TABLET Lizbeth Pool MD Referring Provider: SELF [[id number]] Allergies As of Date: 10/07/2017 Noted Allergy Reaction CODEINE 10/26/2004 2 - Rash 9 - Itching DARVOCET A500 (PROPOXYPHENE N-JESSICA*10/26/2004 2 - Rash 9 - Itching DARVON (PROPOXYPHENE HCL) 10/26/2004 2 - Rash 9 - Itching DAYPRO (OXAPROZIN) 01/02/2005 2 - Rash EFFEXOR (VENLAFAXINE HCL) 01/02/2005 5 - Intolerance Comments: decreased libido FLEXERIL (CYCLOBENZAPRINE HCL) 01/02/2005 8 - GI Upset 11 - Vomiting GABAPENTIN 12/15/2015 1 - Mental Status Change Comments: hangover NORCO (HYDROCODONE-ACETAMINOPHEN) 01/02/2005 8 - GI Upset 9 - Itching Comments: nausea, itching OXYBUTYNIN 11/20/2011 14 - Other: See Comments Comments: Urinary retention PINE TREES (TREES) 12/07/2008 Comments: rash TALWIN (PENTAZOCINE LACTATE) 01/02/2005 9 - Itching Comments: GI upset ULTRAM (TRAMADOL HCL) 01/02/2005 8 - GI Upset VIOXX (ROFECOXIB) 01/02/2005 2 - Rash Date Reviewed: 10/07/2017 Reviewed by: Kd Og Ma - Fully Assessed Primary Visit Diagnosis:Atypical chest pain [R07.89] Other Visit Diagnoses:Psoriasis [L40.9] RLS (restless legs syndrome) [G25.81] Chronic pain syndrome [G89.4] Chronic low back pain with right-sided sciatica, unspecified back pain laterality [M54.41, G89.29] Order(s):tretinoin (RETIN-A) 0.025 % gelApply 1 application to affected area daily at bedtime. DX: Psoriasis L40.9/ 696.1Disp: 15 gRfl: 2 rOPINIRole (REQUIP) 1 mg tabletTake 1 tablet by mouth daily at bedtime.Disp: 30 tabletRfl: 5 carisoprodol (SOMA) 350 mg tabletTake 1 tablet by mouth three times daily as needed for Muscle Spasm for up to 30 days. Refill on start date.Disp: 90 tabletRfl: 0 Prescriptions as of 10/07/2017 Sig: TRETINOIN 0.025 % TOPICAL GEL Apply 1 application to affect* ROPINIROLE 1 MG TABLET Take 1 tablet by mouth daily * NICOTINE 10 MG INHALATION CAR* Inhale 2 Puffs as instructed * PROMETHAZINE 25 MG TABLET Take 1 tablet by mouth every * ONDANSETRON 4 MG DISINTEGRATI* Take 1 tablet by mouth every * CHOLECALCIFEROL (VITAMIN D3) * Take 1 capsule by mouth once * ATORVASTATIN 20 MG TABLET Take 1 tablet by mouth daily * ALPRAZOLAM 1 MG TABLET Take 1 mg by mouth twice jaleel* QUETIAPINE 100 MG TABLET Take 2 tablets by mouth daily* POTASSIUM CHLORIDE ER 8 MEQ C* take 1 capsule by mouth once * RIZATRIPTAN 10 MG TABLET Take 1 tablet by mouth at ons* ALENDRONATE 70 MG TABLET take 1 tablet by mouth ONCE E* CALCIUM CARBONATE 600 MG (1,5* Take 1 tablet by mouth once d* OMEGA-3 FATTY ACIDS 1,000 MG * Take 2 capsules by mouth once* CARISOPRODOL 350 MG TABLET Take 1 tablet by mouth three * ISONIAZID 300 MG TABLET Take 1 tablet by mouth once d* ERGOCALCIFEROL (VITAMIN D2) 5* Take 1 capsule by mouth once * ABATACEPT (WITH MALTOSE) 250 * Inject 750 mg intravenously o* Patient not taking: Reported on 10/07/2017 Problem List As Of Date 10/07/2017 Noted Resolved Cleft lip, 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 Orbital mass [H05.89] INVALID FOR*06/01/2016 RLS (restless legs syndrome) [G25.81] INVALID FOR* Nasal septal deviation [J34.2] INVALID FOR*06/01/2016 Pruritus of forearm [L29.9] INVALID FOR*06/01/2016 Pruritus - disorder INVALID FOR*06/01/2016 Eczematous dermatitis [L30.9] INVALID FOR*06/01/2016 Lichenoid dermatitis [L28.0] INVALID FOR*06/01/2016 Excoriation [T14.8XXA] INVALID FOR*06/01/2016 Capsulitis [M77.9] INVALID FOR*06/01/2016 Closed fracture of lateral malleolus [S82.63XA] INVALID FOR*06/01/2016 Contusion of toe [S90.129A] INVALID FOR*06/01/2016 Migraine headache [G43.909] INVALID FOR* Falls [W19.XXXA] INVALID FOR* Arthritis of left knee [M17.12] INVALID FOR*06/01/2016 Leg ulcer, left (HCC) [L97.929] INVALID FOR*06/01/2016 Xerosis cutis [L85.3] INVALID FOR*06/01/2016 Palpitations [R00.2] INVALID FOR* Cervical strain [S16.1XXA] INVALID FOR*06/01/2016 Cervical disc disease [M50.90] INVALID FOR*06/01/2016 Bulimia [F50.2] INVALID FOR* Eating disorder [F50.9] INVALID FOR*06/01/2016 Positive PPD [R76.11] INVALID FOR* Personality disorder with predominantly sociopa*INVALID FOR* Insomnia [G47.00] INVALID FOR* Cataract of both eyes [H26.9] INVALID FOR*06/01/2016 More... Cervicalgia [M54.2] INVALID FOR* Lumbago [M54.5] INVALID FOR*06/01/2016 Encounter for long-term (current) use of medica*INVALID FOR*06/01/2016 Chronic pain syndrome [G89.4] INVALID FOR*06/01/2016 Left-sided low back pain with left-sided sciati*INVALID FOR* HNP (herniated nucleus pulposus), lumbar [M51.2*INVALID FOR* Rheumatoid arthritis involving multiple sites w*INVALID FOR* Dry eye syndrome [H04.129] INVALID FOR* Hyperlipidemia [E78.5] Prescriptions ordered this encounter Disp Refills Start End TRETINOIN 0.025 % TOPICAL GEL 15 g 2 10/07/2017 Route: TOPICAL Sig: Apply 1 application to affected area daily at bedtime. DX: Psoriasis L40.9/ 696.1 ROPINIROLE 1 MG TABLET 30 t* 5 10/07/2017 Route: ORAL Sig: Take 1 tablet by mouth daily at bedtime. CARISOPRODOL 350 MG TABLET 90 t* 0 10/07/2017 11/06/2017 Class: Print RX Route: ORAL Sig: Take 1 tablet by mouth three times daily as needed for Muscle Spasm for up to 30 days. Refill on start date. Medications Discontinued During This Encounter tretinoin (RETIN-A) 0.025 % gel 15 g 2 05/31/2016 10/07/2017 Route: TOPICAL Sig: Apply 1 application to affected area daily at bedtime. DX: Psoriasis L40.9/ 696.1 Disc: Reason for discontinue is not on file. rOPINIRole (REQUIP) 1 mg tablet 30 t* 5 02/21/2017 10/07/2017 Route: ORAL Sig: Take 1 tablet by mouth daily at bedtime. Disc: Reason for discontinue is not on file. carisoprodol (SOMA) 350 mg tablet 90 t* 0 08/30/2017 10/07/2017 Class: Call Rx Route: ORAL Sig: Take 1 tablet by mouth three times daily as needed for Muscle Spasm for up to 30 days. Refill on start date. Disc: Reason for discontinue is not on file. Disposition: Return in about 3 months (around 01/07/2018). Follow-up and Disposition History Recorded Encounter Status:Closed by LIZBETH POOL MD on 10/07/17 SPUTUM FOR CYTOLOGY Observed: 08/30/2017 Status: F Source: [place] 12:00 AM [facility] REPOSITORY Patient: DAVID BERG : 1955 (61/F) Acct Num: [id number] Phys: Jimbo KAISER,Nnamdi Unit Num: [id number] Loc: LABSPEC Specimen: [id number] Received: 09/02/17721 Spec Type: Sputum Cy TISSUES TISSUES: Sputum COMMENT AFB stain with matched control was used in the evaluation of this case. CYTOLOGY GROSS Received is 1 ml of thick, yellow-beige mucoid fluid labeled with the patient's name and and designated per the requisition as sputum. Submitted for cytology preparation. / 08/30/17 TC:5 CPT: 22136, 96867 CYTOLOGY STUDY Slides are reviewed. DIAGNOSIS CYTOLOGY Sputum for cytology (smears): Adequate for evaluation. Negative for malignant cells. Negative for acid-fast bacilli. AM: 09/02/17 HEADER OPERATION: Not noted PRE-OP DIAGNOSIS: Tuberculosis TISSUE SUBMITTED: Sputum for cytology Signed Horace Limaih 09/02/17 <signature on file> Performed By: #### PSPU #### [facility] [address] [place], [place], [address] [employer] STAIN AND Collected: 08/30/2017 Status: F Source: [place] CYTOLOGY 12:00 AM [facility] [place] REPOSITORY TYPE CODE TESTS RESULT OUT OF RANGE REFERENCE UNITS LAB L350.1000 SEE Normal PATHOLOGY CYTOLOGY,BF REPORT /CSF Result Comment: Specimen submitted to Anatomical Pathology Department for testing. LAB L350.1400 Normal SEE ACID FAST PATHOLOGY REPORT STAIN Result Comment: Specimen submitted to Anatomical Pathology Department for testing. Performed By: #### L349.9000 #### [facility] [address] [place], [address] CHEST WITH CONTRAST Observed: 08/28/2017 Status: F Source: [place] 1:48 PM [facility] REPOSITORY [facility] Imaging Services [address] [place] [address] Chest WITH Contrast MR#: [id number] Acct: [id number] Name: DAVID BERG Rep #: [id number] : 1955 F 61 From: Boubacar Sosa MD PCP: Rodney Pool MD Status: REG CLI Study: Chest WITH Contrast Date of Exam: 08/28/17 Exam# [id number] Ordering Dr: Nnamdi Choi MD STUDY: CT CHEST WITH CONTRAST REASON FOR EXAM: Female, 61 years old. Positive PPD. COPD RADIATION DOSAGE (If Supplied By Facility): CTDIvol = ( 10.38 ) mGy, DLP = ( 374.28 ) mGycm TECHNIQUE: Transaxial imaging was performed following intravenous administration of 100mL ml of Isovue 300 contrast material. Individualized dose optimization techniques were used for this CT. COMPARISON: None. FINDINGS: There are emphysematous changes of the lungs with emphysematous blebs. No infiltrates. No effusions. There is no demonstrated pleural abnormality. Normal heart and pericardium. Normal mediastinum. Normal hilar regions. Normal enhanced pulmonary arteries. Normal aorta arch and descending thoracic aorta. There are no demonstrated pulmonary emboli. Normal osseous structures. There is no demonstrated abnormality of the visualized upper abdomen. CT/Chest WITH Contrast IMPRESSION: COPD with no acute chest disease. Electronically Signed: Boubacar Sosa MD at 15:05 EDT , Service support , CC: Rodney Pool MD; Nnamdi Choi MD Creative Developer: Signed FLUID/WASHING Observed: 08/28/2017 Status: F Source: [place] 12:00 AM [facility] [place] REPOSITORY Patient: DAVID BERG : 1955 (61/F) Acct Num: [id number] Phys: Jimbo KAISER,Nnamdi Unit Num: [id number] Loc: LAB Specimen: [id number] Received: 08/28/17 - 1430 Spec Type: Fluid TISSUES TISSUES: Sputum COMMENT Clinical correlation and appropriate follow up are necessary. Please make reference to previous cytology specimen ([id number]) sputum, negative for malignant cells. CYTOLOGY GROSS Received is 1 ml of pink mucoid labeled with the patient's name and and designated per the requisition as sputum. Submitted for cytology preparation. / CC:cc 08/28/17 TC:5 CPT: 68713, 87543 CYTOLOGY STUDY Slides are reviewed. The specimen consists of benign squamous cells, macrophages and neutrophils and organisms consistent with bacteria. DIAGNOSIS CYTOLOGY Sputum for cytology (smears): Negative for malignant cells. Special stain for acid fast bacilli is negative for organisms; matched control is appropriate. See cytology study and comment. SJ:swapna 08/29/17 HEADER OPERATION: Not noted PRE-OP DIAGNOSIS: Tuberculosis lung, A15.0 TISSUE SUBMITTED: Sputum for cytology Signed Bong Palmer 08/29/17 <signature on file> Performed By: #### PFLU #### [facility] [address] [place], [address] AFB STAIN AND Collected: 08/28/2017 Status: F Source: [place] CYTOLOGY 12:00 AM [facility] [place] REPOSITORY TYPE CODE TESTS RESULT OUT OF RANGE REFERENCE UNITS LAB L350.1000 SEE Normal PATHOLOGY CYTOLOGY,BF REPORT /CSF Result Comment: Specimen submitted to Anatomical Pathology Department for testing. LAB L350.1400 Normal SEE ACID FAST PATHOLOGY REPORT STAIN Result Comment: Specimen submitted to Anatomical Pathology Department for testing. Performed By: #### L349.9000 #### [facility] [address] [place], [address] SPUTUM FOR CYTOLOGY Observed: 08/26/2017 Status: F Source: [place] 2:00 PM [facility] [place] REPOSITORY Patient: DAVID BERG : 1955 (61/F) Acct Num: [id number] Phys: Jimbo KAISER,Nnamdi Unit Num: [id number] Loc: LAB Specimen: [id number] Received: 08/27/17 - 1239 Spec Type: Sputum Cy TISSUES TISSUES: Sputum COMMENT Clinical correlation and appropriate follow up are necessary. CYTOLOGY GROSS Received is 1.5 ml of thick yellow mucoid fluid labeled with the patient's name and and designated per the requisition as sputum. Submitted for cytology preparation. /RY/cc 08/27/17 TC:5 CPT: 91621, 18640 CYTOLOGY STUDY Slides are reviewed. The specimen consists of benign squamous cells, macrophages, inflammatory cells and organisms consistent with bacteria. DIAGNOSIS CYTOLOGY Sputum for cytology (smears): Negative for malignant cells. Special stain for acid fast bacilli is negative for organisms; matched control is appropriate. See cytology study and comment. SJ:swapna 08/27/17 HEADER OPERATION: Not noted PRE-OP DIAGNOSIS: Tuberculosis lung, A15.0 TISSUE SUBMITTED: Sputum for cytology Signed Bong Palmer 08/27/17 <signature on file> Performed By: #### PSPU #### [facility] [address] [place], [address] AFB STAIN AND Collected: 08/26/2017 Status: F Source: [place] CYTOLOGY 2:00 PM [facility] [place] REPOSITORY TYPE CODE TESTS RESULT OUT OF RANGE REFERENCE UNITS LAB L350.1000 SEE Normal PATHOLOGY CYTOLOGY,BF REPORT /CSF Result Comment: Specimen submitted to Anatomical Pathology Department for testing. LAB L350.1400 Normal SEE ACID FAST PATHOLOGY REPORT STAIN Result Comment: Specimen submitted to Anatomical Pathology Department for testing. Performed By: #### L349.9000 #### [facility] [address] [place], [address] PROGRESS Observed: 08/09/2017 Status: COMPLETED Source: [place] 10:38 AM [facility] REPOSITORY HNO ID: [id number] Author: Pam Winkler) Aaron Service: (none) Author Type: Registered Nurse Type: Progress Notes Filed: 08/09/2017 10:40 AM Note Text: PRIMARY CARE COORDINATION FOLLOW-UP NOTE Provider Action/FYI FYI Patient identified by name and date of . YES Spoke to patient Summary: ID Consult faxed to KIRSTY Walker RN August 09, 2017 10:40 AM Pt requesting PCC fax consult to Infectious Disease to [facility]. States they need a copy of the referral in order to provide transportation to the appt. Nursing Associate plan for next outreach: No further follow up needed at this time Signature Pam Walker RN August 09, 2017 MARYTOUTREACH Observed: 08/09/2017 Status: COMPLETED Source: [place] 12:00 AM [facility] REPOSITORY Patient Outreach (FAMPWS) DAVID BERG ([id number]) 1955 F Date Time Provider Department 08/09/17 [facility] During your visit today, we recorded the following information about you: Pam Walker RN 08/09/2017 10:40 AM Signed PRIMARY CARE COORDINATION FOLLOW-UP NOTE Provider Action/FYI FYI Patient identified by name and date of . YES Spoke to patient Summary: ID Consult faxed to KIRSTY Walker RN August 09, 2017 10:40 AM Pt requesting PCC fax consult to Infectious Disease [facility]. States they need a copy of the referral in order to provide transportation to the appt. Nursing Associate plan for next outreach: No further follow up needed at this time Signature Pam Walker RN August 09, 2017 Allergies As of Date: 08/09/2017 Noted Allergy Reaction CODEINE 10/26/2004 2 - Rash 9 - Itching DARVOCET A500 (PROPOXYPHENE N-JESSICA*10/26/2004 2 - Rash 9 - Itching DARVON (PROPOXYPHENE HCL) 10/26/2004 2 - Rash 9 - Itching DAYPRO (OXAPROZIN) 01/02/2005 2 - Rash EFFEXOR (VENLAFAXINE HCL) 01/02/2005 5 - Intolerance Comments: decreased libido FLEXERIL (CYCLOBENZAPRINE HCL) 01/02/2005 8 - GI Upset 11 - Vomiting GABAPENTIN 12/15/2015 1 - Mental Status Change Comments: hangover NORCO (HYDROCODONE-ACETAMINOPHEN) 01/02/2005 8 - GI Upset 9 - Itching Comments: nausea, itching OXYBUTYNIN 11/20/2011 14 - Other: See Comments Comments: Urinary retention PINE TREES (TREES) 12/07/2008 Comments: rash TALWIN (PENTAZOCINE LACTATE) 01/02/2005 9 - Itching Comments: GI upset ULTRAM (TRAMADOL HCL) 01/02/2005 8 - GI Upset VIOXX (ROFECOXIB) 01/02/2005 2 - Rash Date Reviewed: 04/10/2017 Reviewed by: Kd Og Ma - Fully Assessed Reason for Visit: String Top Sealer - Patient Initiated [3614] Prescriptions as of 08/09/2017 Sig: PROMETHAZINE 25 MG TABLET Take 1 tablet by mouth every * ONDANSETRON 4 MG DISINTEGRATI* Take 1 tablet by mouth every * ISONIAZID 300 MG TABLET Take 1 tablet by mouth once d* RIFAMPIN 300 MG CAPSULE Take 2 capsules by mouth once* PYRAZINAMIDE 500 MG TABLET Take 3 tablets by mouth once * ETHAMBUTOL 400 MG TABLET Take 3 tablets by mouth once * CARISOPRODOL 350 MG TABLET Take 1 tablet by mouth three * CHOLECALCIFEROL (VITAMIN D3) * Take 1 capsule by mouth once * ATORVASTATIN 20 MG TABLET Take 1 tablet by mouth daily * ALPRAZOLAM 1 MG TABLET Take 1 mg by mouth twice jaleel* NICOTINE 10 MG INHALATION CAR* Inhale 2 Puffs as instructed * QUETIAPINE 100 MG TABLET Take 2 tablets by mouth daily* ERGOCALCIFEROL (VITAMIN D2) 5* Take 1 capsule by mouth once * POTASSIUM CHLORIDE ER 8 MEQ C* take 1 capsule by mouth once * RIZATRIPTAN 10 MG TABLET Take 1 tablet by mouth at ons* ROPINIROLE 1 MG TABLET Take 1 tablet by mouth daily * ALENDRONATE 70 MG TABLET take 1 tablet by mouth ONCE E* CALCIUM CARBONATE 600 MG (1,5* Take 1 tablet by mouth once d* OMEGA-3 FATTY ACIDS 1,000 MG * Take 2 capsules by mouth once* ABATACEPT (WITH MALTOSE) 250 * Inject 750 mg intravenously o* TRETINOIN 0.025 % TOPICAL GEL Apply 1 application to affect* Problem List As Of Date 08/09/2017 Noted Resolved Cleft lip, 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 Orbital mass [H05.89] INVALID FOR*06/01/2016 RLS (restless legs syndrome) [G25.81] INVALID FOR* Nasal septal deviation [J34.2] INVALID FOR*06/01/2016 Pruritus of forearm [L29.9] INVALID FOR*06/01/2016 Pruritus - disorder INVALID FOR*06/01/2016 Eczematous dermatitis [L30.9] INVALID FOR*06/01/2016 Lichenoid dermatitis [L28.0] INVALID FOR*06/01/2016 Excoriation [T14.8XXA] INVALID FOR*06/01/2016 Capsulitis [M77.9] INVALID FOR*06/01/2016 Closed fracture of lateral malleolus [S82.63XA] INVALID FOR*06/01/2016 Contusion of toe [S90.129A] INVALID FOR*06/01/2016 Migraine headache [G43.909] INVALID FOR* Falls [W19.XXXA] INVALID FOR* Arthritis of left knee [M17.12] INVALID FOR*06/01/2016 Leg ulcer, left (HCC) [L97.929] INVALID FOR*06/01/2016 Xerosis cutis [L85.3] INVALID FOR*06/01/2016 Palpitations [R00.2] INVALID FOR* Cervical strain [S16.1XXA] INVALID FOR*06/01/2016 Cervical disc disease [M50.90] INVALID FOR*06/01/2016 Bulimia [F50.2] INVALID FOR* Eating disorder [F50.9] INVALID FOR*06/01/2016 Positive PPD [R76.11] INVALID FOR* Personality disorder with predominantly sociopa*INVALID FOR* Insomnia [G47.00] INVALID FOR* Cataract of both eyes [H26.9] INVALID FOR*06/01/2016 More... Cervicalgia [M54.2] INVALID FOR* Lumbago [M54.5] INVALID FOR*06/01/2016 Encounter for long-term (current) use of medica*INVALID FOR*06/01/2016 Chronic pain syndrome [G89.4] INVALID FOR*06/01/2016 Left-sided low back pain with left-sided sciati*INVALID FOR* HNP (herniated nucleus pulposus), lumbar [M51.2*INVALID FOR* Rheumatoid arthritis involving multiple sites w*INVALID FOR* Dry eye syndrome [H04.129] INVALID FOR* Hyperlipidemia [E78.5] Encounter Status:Closed by PAM WALKER on 08/09/17 PROGRESS Observed: 08/08/2017 Status: COMPLETED Source: [place] 3:50 PM [facility] REPOSITORY HNO ID: [id number] Author: Pam (Manda) Aaron Service: (none) Author Type: Registered Nurse Type: Progress Notes Filed: 08/08/2017 3:55 PM Note Text: PRIMARY CARE COORDINATION FOLLOW-UP NOTE Provider Action/FYI Appt with Dr. Nnamdi Choi, ID scheduled for 08/15 @ 3:15 Patient identified by name and date of . YES Spoke to patient Summary: TC to patient, instructed on appt date and time, address and phone number. Sent website with Dr. Choi's address, phone number and appt date in time to patient by mail. Copy of medical records, face sheet and insurance card faxed to Dr. Choi's office. TC to Dr. Nnamdi Choi's office in [place], appt scheduled for August 15 at 3:15.. Pt to arrive by 3:00. TC to patient, asked if she would accept a sooner appointment with Infectious Disease than 09/10? States yes, she just needs 5 business days to arrange transportation. Nursing Associate plan for next outreach: No further follow up needed at this time Signature Pam Walker RN August 08, 2017 CNPTOUTREACH Observed: 08/08/2017 Status: COMPLETED Source: [place] 12:00 AM [facility] REPOSITORY Patient Outreach (FAMPWS) DAVID BERG ([id number]) 1955 F Date Time Provider Department 08/08/17 PAM WALKER) FAMPWS During your visit today, we recorded the following information about you: Pam Walker RN 08/08/2017 3:55 PM Signed PRIMARY CARE COORDINATION FOLLOW-UP NOTE Provider Action/FYI Appt with Dr. Nnamdi Choi, ID scheduled for 08/15 @ 3:15 Patient identified by name and date of . YES Spoke to patient Summary: TC to patient, instructed on appt date and time, address and phone number. Sent website with Dr. Choi's address, phone number and appt date in time to patient by mail. Copy of medical records, face sheet and insurance card faxed to Dr. Choi's office. TC to Dr. Nnamdi Choi's office in [place], appt scheduled for August 15 at 3:15.. Pt to arrive by 3:00. TC to patient, asked if she would accept a sooner appointment with Infectious Disease than 09/10? States yes, she just needs 5 business days to arrange transportation. Nursing Associate plan for next outreach: No further follow up needed at this time Signature Pam Walker RN August 08, 2017 Allergies As of Date: 08/08/2017 Noted Allergy Reaction CODEINE 10/26/2004 2 - Rash 9 - Itching DARVOCET A500 (PROPOXYPHENE N-JESSICA*10/26/2004 2 - Rash 9 - Itching DARVON (PROPOXYPHENE HCL) 10/26/2004 2 - Rash 9 - Itching DAYPRO (OXAPROZIN) 01/02/2005 2 - Rash EFFEXOR (VENLAFAXINE HCL) 01/02/2005 5 - Intolerance Comments: decreased libido FLEXERIL (CYCLOBENZAPRINE HCL) 01/02/2005 8 - GI Upset 11 - Vomiting GABAPENTIN 12/15/2015 1 - Mental Status Change Comments: hangover NORCO (HYDROCODONE-ACETAMINOPHEN) 01/02/2005 8 - GI Upset 9 - Itching Comments: nausea, itching OXYBUTYNIN 11/20/2011 14 - Other: See Comments Comments: Urinary retention PINE TREES (TREES) 12/07/2008 Comments: rash TALWIN (PENTAZOCINE LACTATE) 01/02/2005 9 - Itching Comments: GI upset ULTRAM (TRAMADOL HCL) 01/02/2005 8 - GI Upset VIOXX (ROFECOXIB) 01/02/2005 2 - Rash Date Reviewed: 04/10/2017 Reviewed by: Kd Og Ma - Fully Assessed Reason for Visit: String Top Sealer- Other [[id number]] Cmt: Infectious Disease appointment Prescriptions as of 08/08/2017 Sig: PROMETHAZINE 25 MG TABLET Take 1 tablet by mouth every * ONDANSETRON 4 MG DISINTEGRATI* Take 1 tablet by mouth every * ISONIAZID 300 MG TABLET Take 1 tablet by mouth once d* RIFAMPIN 300 MG CAPSULE Take 2 capsules by mouth once* PYRAZINAMIDE 500 MG TABLET Take 3 tablets by mouth once * ETHAMBUTOL 400 MG TABLET Take 3 tablets by mouth once * CARISOPRODOL 350 MG TABLET Take 1 tablet by mouth three * CHOLECALCIFEROL (VITAMIN D3) * Take 1 capsule by mouth once * ATORVASTATIN 20 MG TABLET Take 1 tablet by mouth daily * ALPRAZOLAM 1 MG TABLET Take 1 mg by mouth twice jaleel* NICOTINE 10 MG INHALATION CAR* Inhale 2 Puffs as instructed * QUETIAPINE 100 MG TABLET Take 2 tablets by mouth daily* ERGOCALCIFEROL (VITAMIN D2) 5* Take 1 capsule by mouth once * POTASSIUM CHLORIDE ER 8 MEQ C* take 1 capsule by mouth once * RIZATRIPTAN 10 MG TABLET Take 1 tablet by mouth at ons* ROPINIROLE 1 MG TABLET Take 1 tablet by mouth daily * ALENDRONATE 70 MG TABLET take 1 tablet by mouth ONCE E* CALCIUM CARBONATE 600 MG (1,5* Take 1 tablet by mouth once d* OMEGA-3 FATTY ACIDS 1,000 MG * Take 2 capsules by mouth once* ABATACEPT (WITH MALTOSE) 250 * Inject 750 mg intravenously o* TRETINOIN 0.025 % TOPICAL GEL Apply 1 application to affect* Problem List As Of Date 08/08/2017 Noted Resolved Cleft lip, 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 Orbital mass [H05.89] INVALID FOR*06/01/2016 RLS (restless legs syndrome) [G25.81] INVALID FOR* Nasal septal deviation [J34.2] INVALID FOR*06/01/2016 Pruritus of forearm [L29.9] INVALID FOR*06/01/2016 Pruritus - disorder INVALID FOR*06/01/2016 Eczematous dermatitis [L30.9] INVALID FOR*06/01/2016 Lichenoid dermatitis [L28.0] INVALID FOR*06/01/2016 Excoriation [T14.8XXA] INVALID FOR*06/01/2016 Capsulitis [M77.9] INVALID FOR*06/01/2016 Closed fracture of lateral malleolus [S82.63XA] INVALID FOR*06/01/2016 Contusion of toe [S90.129A] INVALID FOR*06/01/2016 Migraine headache [G43.909] INVALID FOR* Falls [W19.XXXA] INVALID FOR* Arthritis of left knee [M17.12] INVALID FOR*06/01/2016 Leg ulcer, left (HCC) [L97.929] INVALID FOR*06/01/2016 Xerosis cutis [L85.3] INVALID FOR*06/01/2016 Palpitations [R00.2] INVALID FOR* Cervical strain [S16.1XXA] INVALID FOR*06/01/2016 Cervical disc disease [M50.90] INVALID FOR*06/01/2016 Bulimia [F50.2] INVALID FOR* Eating disorder [F50.9] INVALID FOR*06/01/2016 Positive PPD [R76.11] INVALID FOR* Personality disorder with predominantly sociopa*INVALID FOR* Insomnia [G47.00] INVALID FOR* Cataract of both eyes [H26.9] INVALID FOR*06/01/2016 More... Cervicalgia [M54.2] INVALID FOR* Lumbago [M54.5] INVALID FOR*06/01/2016 Encounter for long-term (current) use of medica*INVALID FOR*06/01/2016 Chronic pain syndrome [G89.4] INVALID FOR*06/01/2016 Left-sided low back pain with left-sided sciati*INVALID FOR* HNP (herniated nucleus pulposus), lumbar [M51.2*INVALID FOR* Rheumatoid arthritis involving multiple sites w*INVALID FOR* Dry eye syndrome [H04.129] INVALID FOR* Hyperlipidemia [E78.5] Encounter Status:Closed by PAM WALKER on 08/08/17 CNPN Observed: 08/07/2017 Status: COMPLETED Source: [place] 12:00 AM [facility] REPOSITORY Telephone ([facility]) DAVID BERG ([id number]) 1955 F Date Time Provider Department 08/07/17 LIZBETH POOL) [facility] During your visit today, we recorded the following information about you: Juarez Mccormick RN 08/07/2017 9:35 AM Signed Patient calls in stating she has a new roommate and she is wondering if her roommate should be concerned about getting TB from the patient. She also wants to know if we offer a vaccine to protect against TB. Please advise. Juarez Pool MD 08/07/2017 5:28 PM Signed We do not have TB vaccination. With positive blood test and abnormal CXR, would treat this as active TB which increases risk for transmission. Kd Og Lynne 08/07/2017 5:43 PM Signed TC to patient, notified of provider's message. Patient states that she took the medication for 3 days and it made her sick to her stomach that she threw them up. Advised patient she was given Zofran for her nausea, patient then states that she doesn't like the Zofran because it dissolves on her tongue. May patient have something else for nausea? Patient states she will not take her medications until she sees ID to confirm her diagnosis - Advised pt that it is important to take medications, and will have schedulers contact patient to set up sooner appt with ID - patient is willing to travel Lizbeth Pool MD 08/08/2017 1:01 PM Signed With findings of positive blood test and chest xray without definitive testing from bronchoscopy, it appears this patient has active tuberculosis which is contagious. She needs to be on treatment starting now and still needs to follow up with ID or pulm, whichever we can get her in with to confirm TB diagnosis. I will call her in rx for phenergan for nausea instead of dissolving zofran and will be contacting health department as there is risk of spread of TB with patient non compliance. Cheli Rodarte RN 08/08/2017 1:50 PM Signed Ayaka, [employer] @ [facility] calling to follow up on diagnosis of active TB. Reviewed information from provider's notes. She requested I contact patient with Dr. Pool's most recent note. I spoke with patient and gave her message from provider's office. I strongly encouraged her to take medications and to call back if she was still having nausea with the Phenergan. She has an appointment with PCP on 08/14 and ID on 09/10. Cheli Pool MD 08/08/2017 2:00 PM Signed Please contact patient to cancel appointment on 08/14 with this office. With active TB diagnosis, I have no further recommendations for treatment until after she sees ID and I have concerns about spread to other patients in waiting room. Yanet Burns JAELYN 08/08/2017 2:20 PM Signed Patient notified that appointment with PCP will be cancelled until after appointment with ID. Allergies As of Date: 08/07/2017 Noted Allergy Reaction CODEINE 10/26/2004 2 - Rash 9 - Itching DARVOCET A500 (PROPOXYPHENE N-JESSICA*10/26/2004 2 - Rash 9 - Itching DARVON (PROPOXYPHENE HCL) 10/26/2004 2 - Rash 9 - Itching DAYPRO (OXAPROZIN) 01/02/2005 2 - Rash EFFEXOR (VENLAFAXINE HCL) 01/02/2005 5 - Intolerance Comments: decreased libido FLEXERIL (CYCLOBENZAPRINE HCL) 01/02/2005 8 - GI Upset 11 - Vomiting GABAPENTIN 12/15/2015 1 - Mental Status Change Comments: hangover NORCO (HYDROCODONE-ACETAMINOPHEN) 01/02/2005 8 - GI Upset 9 - Itching Comments: nausea, itching OXYBUTYNIN 11/20/2011 14 - Other: See Comments Comments: Urinary retention PINE TREES (TREES) 12/07/2008 Comments: rash TALWIN (PENTAZOCINE LACTATE) 01/02/2005 9 - Itching Comments: GI upset ULTRAM (TRAMADOL HCL) 01/02/2005 8 - GI Upset VIOXX (ROFECOXIB) 01/02/2005 2 - Rash Date Reviewed: 04/10/2017 Reviewed by: Kd Og Ma - Fully Assessed Reason for Visit: TB Question [Other] Primary Visit Diagnosis:Positive TB test [R76.11] Order(s):promethazine (PHENERGAN) 25 mg tabletTake 1 tablet by mouth every 6 hours as needed for Nausea/Vomiting.Disp: 30 tabletRfl: 0 CONSULT TO PULM/CRITICAL CARE [[id number]] Order #: [id number]: 1 Prescriptions as of 08/07/2017 Sig: PROMETHAZINE 25 MG TABLET Take 1 tablet by mouth every * ONDANSETRON 4 MG DISINTEGRATI* Take 1 tablet by mouth every * ISONIAZID 300 MG TABLET Take 1 tablet by mouth once d* RIFAMPIN 300 MG CAPSULE Take 2 capsules by mouth once* PYRAZINAMIDE 500 MG TABLET Take 3 tablets by mouth once * ETHAMBUTOL 400 MG TABLET Take 3 tablets by mouth once * CARISOPRODOL 350 MG TABLET Take 1 tablet by mouth three * CHOLECALCIFEROL (VITAMIN D3) * Take 1 capsule by mouth once * ATORVASTATIN 20 MG TABLET Take 1 tablet by mouth daily * ALPRAZOLAM 1 MG TABLET Take 1 mg by mouth twice jaleel* NICOTINE 10 MG INHALATION CAR* Inhale 2 Puffs as instructed * QUETIAPINE 100 MG TABLET Take 2 tablets by mouth daily* ERGOCALCIFEROL (VITAMIN D2) 5* Take 1 capsule by mouth once * POTASSIUM CHLORIDE ER 8 MEQ C* take 1 capsule by mouth once * RIZATRIPTAN 10 MG TABLET Take 1 tablet by mouth at ons* ROPINIROLE 1 MG TABLET Take 1 tablet by mouth daily * ALENDRONATE 70 MG TABLET take 1 tablet by mouth ONCE E* CALCIUM CARBONATE 600 MG (1,5* Take 1 tablet by mouth once d* OMEGA-3 FATTY ACIDS 1,000 MG * Take 2 capsules by mouth once* ABATACEPT (WITH MALTOSE) 250 * Inject 750 mg intravenously o* TRETINOIN 0.025 % TOPICAL GEL Apply 1 application to affect* Problem List As Of Date 08/07/2017 Noted Resolved Cleft lip, 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 Orbital mass [H05.89] INVALID FOR*06/01/2016 RLS (restless legs syndrome) [G25.81] INVALID FOR* Nasal septal deviation [J34.2] INVALID FOR*06/01/2016 Pruritus of forearm [L29.9] INVALID FOR*06/01/2016 Pruritus - disorder INVALID FOR*06/01/2016 Eczematous dermatitis [L30.9] INVALID FOR*06/01/2016 Lichenoid dermatitis [L28.0] INVALID FOR*06/01/2016 Excoriation [T14.8XXA] INVALID FOR*06/01/2016 Capsulitis [M77.9] INVALID FOR*06/01/2016 Closed fracture of lateral malleolus [S82.63XA] INVALID FOR*06/01/2016 Contusion of toe [S90.129A] INVALID FOR*06/01/2016 Migraine headache [G43.909] INVALID FOR* Falls [W19.XXXA] INVALID FOR* Arthritis of left knee [M17.12] INVALID FOR*06/01/2016 Leg ulcer, left (HCC) [L97.929] INVALID FOR*06/01/2016 Xerosis cutis [L85.3] INVALID FOR*06/01/2016 Palpitations [R00.2] INVALID FOR* Cervical strain [S16.1XXA] INVALID FOR*06/01/2016 Cervical disc disease [M50.90] INVALID FOR*06/01/2016 Bulimia [F50.2] INVALID FOR* Eating disorder [F50.9] INVALID FOR*06/01/2016 Positive PPD [R76.11] INVALID FOR* Personality disorder with predominantly sociopa*INVALID FOR* Insomnia [G47.00] INVALID FOR* Cataract of both eyes [H26.9] INVALID FOR*06/01/2016 More... Cervicalgia [M54.2] INVALID FOR* Lumbago [M54.5] INVALID FOR*06/01/2016 Encounter for long-term (current) use of medica*INVALID FOR*06/01/2016 Chronic pain syndrome [G89.4] INVALID FOR*06/01/2016 Left-sided low back pain with left-sided sciati*INVALID FOR* HNP (herniated nucleus pulposus), lumbar [M51.2*INVALID FOR* Rheumatoid arthritis involving multiple sites w*INVALID FOR* Dry eye syndrome [H04.129] INVALID FOR* Hyperlipidemia [E78.5] Prescriptions ordered this encounter Disp Refills Start End PROMETHAZINE 25 MG TABLET 30 t* 0 08/08/2017 Route: ORAL Sig: Take 1 tablet by mouth every 6 hours as needed for Nausea/Vomiting. Encounter Status:Closed by CHELI RODARTE RN on 08/08/17 LLUVIA Observed: 08/03/2017 Status: COMPLETED Source: [place] 12:00 AM [facility] REPOSITORY [facility] DAVID BERG ([id number]) 1955 F Date Time Provider Department 08/03/17 LIZBETH POOL) [facility] During your visit today, we recorded the following information about you: Juarez Mccormick RN 08/03/2017 9:52 AM Signed Patient calls in stating she gets extremely nauseated from the TB medications that she is on. She is wondering if she can have Zofran to help with this. Says she has tried taking with and without food with no relief. She uses [facility] [place]. Juarez Monsalve MD 08/03/2017 10:24 AM Signed Let patient know script sent to [facility]. Signed Prescriptions Disp Refills ondansetron orally disintegrating (ZOFRAN ODT) 4 mg disintegrating tablet 60 tablet 0 Sig: Take 1 tablet by mouth every 12 hours as needed for Nausea/Vomiting. Authorizing Provider: BRUCE MONSALVE RN 08/05/2017 8:24 AM Signed Patient reports she has been vomiting for 3 days. The medications are making her sick. Zofran is not helping. Has a CHAVIS - asking if she can take maxalt? Please advise patient. Sheyla Palafox APRN.MARY 08/05/2017 9:35 AM Signed Please call patient and let her know she can take the maxalt, however if she has been vomiting for three days she should be seen in the office or go to the ER. Thanks, Sheyla Palafox, TANYA.MARY Lua LPN 08/05/2017 9:48 AM Signed Spoke with pt states does not want to take this medication for tb. This i what she says is causing dry mouth, stomach pain, vomiting. States it makes her feel terrible.Explained even if this is latent its important to take medication so it never comes back out. Pt states'' its been this way for years why now are they making me take this medication?'' Asking this to be sent to doctor so he knows she is going to stop taking this. Sheyla Palafox APRN.MARY 08/05/2017 9:55 AM Signed I will let Dr. Pool know, however she should continue to take medications as advised. Thanks, Sheyla Palafox APRN.MARY Lua LPN 08/05/2017 11:41 AM Signed Pt notified. Lizbeth Pool MD 08/07/2017 8:53 AM Signed She should continue this medication until she is cleared by infectious disease. She had a repeat positive TB test and abnormal CXR, which is why we started her on the medications. Leesa Lua [employer] 08/07/2017 9:28 AM Signed Called pt again, This nurse once again stresses the importance of her continuing in taking this medication. Leesa Lua [employer] 08/07/2017 9:43 AM Signed Pt has been off medication past two days. Nurse stresses importance of her taking this. She states is not able to get into infectious disease until September 10 . She iis asking if could get something for side effects of the medications she was having , nausea , vomiting, headaches and felt like her stomach was being twisted.. Explained I would send a note back to doctor for his thoughts. Lizbeth Pool MD 08/07/2017 11:57 AM Signed Looks like she has rx for zofran already. Would have her take that for nausea/vomiting. If she is willing to travel to [place] may be able to get her in sooner with ID. Allergies As of Date: 08/03/2017 Noted Allergy Reaction CODEINE 10/26/2004 2 - Rash 9 - Itching DARVOCET A500 (PROPOXYPHENE N-JESSICA*10/26/2004 2 - Rash 9 - Itching DARVON (PROPOXYPHENE HCL) 10/26/2004 2 - Rash 9 - Itching DAYPRO (OXAPROZIN) 01/02/2005 2 - Rash EFFEXOR (VENLAFAXINE HCL) 01/02/2005 5 - Intolerance Comments: decreased libido FLEXERIL (CYCLOBENZAPRINE HCL) 01/02/2005 8 - GI Upset 11 - Vomiting GABAPENTIN 12/15/2015 1 - Mental Status Change Comments: hangover NORCO (HYDROCODONE-ACETAMINOPHEN) 01/02/2005 8 - GI Upset 9 - Itching Comments: nausea, itching OXYBUTYNIN 11/20/2011 14 - Other: See Comments Comments: Urinary retention PINE TREES (TREES) 12/07/2008 Comments: rash TALWIN (PENTAZOCINE LACTATE) 01/02/2005 9 - Itching Comments: GI upset ULTRAM (TRAMADOL HCL) 01/02/2005 8 - GI Upset VIOXX (ROFECOXIB) 01/02/2005 2 - Rash Date Reviewed: 04/10/2017 Reviewed by: Kd Og Ma - Fully Assessed Reason for Visit: Medication Request [138] Order(s):ondansetron orally disintegrating (ZOFRAN ODT) 4 mg disintegrating tabletTake 1 tablet by mouth every 12 hours as needed for Nausea/Vomiting.Disp: 60 tabletRfl: 0 Prescriptions as of 08/03/2017 Sig: ONDANSETRON 4 MG DISINTEGRATI* Take 1 tablet by mouth every * ISONIAZID 300 MG TABLET Take 1 tablet by mouth once d* RIFAMPIN 300 MG CAPSULE Take 2 capsules by mouth once* PYRAZINAMIDE 500 MG TABLET Take 3 tablets by mouth once * ETHAMBUTOL 400 MG TABLET Take 3 tablets by mouth once * CARISOPRODOL 350 MG TABLET Take 1 tablet by mouth three * CHOLECALCIFEROL (VITAMIN D3) * Take 1 capsule by mouth once * ATORVASTATIN 20 MG TABLET Take 1 tablet by mouth daily * ALPRAZOLAM 1 MG TABLET Take 1 mg by mouth twice jaleel* NICOTINE 10 MG INHALATION CAR* Inhale 2 Puffs as instructed * QUETIAPINE 100 MG TABLET Take 2 tablets by mouth daily* ERGOCALCIFEROL (VITAMIN D2) 5* Take 1 capsule by mouth once * POTASSIUM CHLORIDE ER 8 MEQ C* take 1 capsule by mouth once * RIZATRIPTAN 10 MG TABLET Take 1 tablet by mouth at ons* ROPINIROLE 1 MG TABLET Take 1 tablet by mouth daily * ALENDRONATE 70 MG TABLET take 1 tablet by mouth ONCE E* CALCIUM CARBONATE 600 MG (1,5* Take 1 tablet by mouth once d* OMEGA-3 FATTY ACIDS 1,000 MG * Take 2 capsules by mouth once* ABATACEPT (WITH MALTOSE) 250 * Inject 750 mg intravenously o* TRETINOIN 0.025 % TOPICAL GEL Apply 1 application to affect* Problem List As Of Date 08/03/2017 Noted Resolved Cleft lip, 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 Orbital mass [H05.89] INVALID FOR*06/01/2016 RLS (restless legs syndrome) [G25.81] INVALID FOR* Nasal septal deviation [J34.2] INVALID FOR*06/01/2016 Pruritus of forearm [L29.9] INVALID FOR*06/01/2016 Pruritus - disorder INVALID FOR*06/01/2016 Eczematous dermatitis [L30.9] INVALID FOR*06/01/2016 Lichenoid dermatitis [L28.0] INVALID FOR*06/01/2016 Excoriation [T14.8XXA] INVALID FOR*06/01/2016 Capsulitis [M77.9] INVALID FOR*06/01/2016 Closed fracture of lateral malleolus [S82.63XA] INVALID FOR*06/01/2016 Contusion of toe [S90.129A] INVALID FOR*06/01/2016 Migraine headache [G43.909] INVALID FOR* Falls [W19.XXXA] INVALID FOR* Arthritis of left knee [M17.12] INVALID FOR*06/01/2016 Leg ulcer, left (HCC) [L97.929] INVALID FOR*06/01/2016 Xerosis cutis [L85.3] INVALID FOR*06/01/2016 Palpitations [R00.2] INVALID FOR* Cervical strain [S16.1XXA] INVALID FOR*06/01/2016 Cervical disc disease [M50.90] INVALID FOR*06/01/2016 Bulimia [F50.2] INVALID FOR* Eating disorder [F50.9] INVALID FOR*06/01/2016 Positive PPD [R76.11] INVALID FOR* Personality disorder with predominantly sociopa*INVALID FOR* Insomnia [G47.00] INVALID FOR* Cataract of both eyes [H26.9] INVALID FOR*06/01/2016 More... Cervicalgia [M54.2] INVALID FOR* Lumbago [M54.5] INVALID FOR*06/01/2016 Encounter for long-term (current) use of medica*INVALID FOR*06/01/2016 Chronic pain syndrome [G89.4] INVALID FOR*06/01/2016 Left-sided low back pain with left-sided sciati*INVALID FOR* HNP (herniated nucleus pulposus), lumbar [M51.2*INVALID FOR* Rheumatoid arthritis involving multiple sites w*INVALID FOR* Dry eye syndrome [H04.129] INVALID FOR* Hyperlipidemia [E78.5] Prescriptions ordered this encounter Disp Refills Start End ONDANSETRON 4 MG DISINTEGRATING TABL* 60 t* 0 08/03/2017 Route: ORAL Sig: Take 1 tablet by mouth every 12 hours as needed for Nausea/Vomiting. Encounter Status:Closed by LEESA LUA LPN on 08/05/17 CHONG Observed: 07/30/2017 Status: COMPLETED Source: [place] 12:00 AM [facility] REPOSITORY [facility] DAVID BERG ([id number]) 1955 F Date Time Provider Department 07/30/17 LIZBETH POOL) ROBEL During your visit today, we recorded the following information about you: Allergies As of Date: 07/30/2017 Noted Allergy Reaction CODEINE 10/26/2004 2 - Rash 9 - Itching DARVOCET A500 (PROPOXYPHENE N-JESSICA*10/26/2004 2 - Rash 9 - Itching DARVON (PROPOXYPHENE HCL) 10/26/2004 2 - Rash 9 - Itching DAYPRO (OXAPROZIN) 01/02/2005 2 - Rash EFFEXOR (VENLAFAXINE HCL) 01/02/2005 5 - Intolerance Comments: decreased libido FLEXERIL (CYCLOBENZAPRINE HCL) 01/02/2005 8 - GI Upset 11 - Vomiting GABAPENTIN 12/15/2015 1 - Mental Status Change Comments: hangover NORCO (HYDROCODONE-ACETAMINOPHEN) 01/02/2005 8 - GI Upset 9 - Itching Comments: nausea, itching OXYBUTYNIN 11/20/2011 14 - Other: See Comments Comments: Urinary retention PINE TREES (TREES) 12/07/2008 Comments: rash TALWIN (PENTAZOCINE LACTATE) 01/02/2005 9 - Itching Comments: GI upset ULTRAM (TRAMADOL HCL) 01/02/2005 8 - GI Upset VIOXX (ROFECOXIB) 01/02/2005 2 - Rash Date Reviewed: 04/10/2017 Reviewed by: Kd Og Ma - Fully Assessed Visit Diagnosis:Medication management [Z79.899] Order(s):HGB A1C [[id number]] Order #: [id number] FUTURE Prescriptions as of 07/30/2017 Sig: X CHOLECALCIFEROL (VITAMIN D3) * Take 1 capsule by mouth once * X ATORVASTATIN 20 MG TABLET Take 1 tablet by mouth daily * ALPRAZOLAM 1 MG TABLET Take 1 mg by mouth twice jalele* X NICOTINE 10 MG INHALATION CAR* Inhale 2 Puffs as instructed * QUETIAPINE 100 MG TABLET Take 2 tablets by mouth daily* POTASSIUM CHLORIDE ER 8 MEQ C* take 1 capsule by mouth once * RIZATRIPTAN 10 MG TABLET Take 1 tablet by mouth at ons* ALENDRONATE 70 MG TABLET take 1 tablet by mouth ONCE E* OMEGA-3 FATTY ACIDS 1,000 MG * Take 2 capsules by mouth once* X ERGOCALCIFEROL (VITAMIN D2) 5* Take 1 capsule by mouth once * X ROPINIROLE 1 MG TABLET Take 1 tablet by mouth daily * X CALCIUM CARBONATE 600 MG (1,5* Take 1 tablet by mouth once d* X ABATACEPT (WITH MALTOSE) 250 * Inject 750 mg intravenously o* X TRETINOIN 0.025 % TOPICAL GEL Apply 1 application to affect* Problem List As Of Date 07/30/2017 Noted Resolved Cleft lip, 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 Orbital mass [H05.89] INVALID FOR*06/01/2016 RLS (restless legs syndrome) [G25.81] INVALID FOR* Nasal septal deviation [J34.2] INVALID FOR*06/01/2016 Pruritus of forearm [L29.9] INVALID FOR*06/01/2016 Pruritus - disorder INVALID FOR*06/01/2016 Eczematous dermatitis [L30.9] INVALID FOR*06/01/2016 Lichenoid dermatitis [L28.0] INVALID FOR*06/01/2016 Excoriation [T14.8XXA] INVALID FOR*06/01/2016 Capsulitis [M77.9] INVALID FOR*06/01/2016 Closed fracture of lateral malleolus [S82.63XA] INVALID FOR*06/01/2016 Contusion of toe [S90.129A] INVALID FOR*06/01/2016 Migraine headache [G43.909] INVALID FOR* Falls [W19.XXXA] INVALID FOR* Arthritis of left knee [M17.12] INVALID FOR*06/01/2016 Leg ulcer, left (HCC) [L97.929] INVALID FOR*06/01/2016 Xerosis cutis [L85.3] INVALID FOR*06/01/2016 Palpitations [R00.2] INVALID FOR* Cervical strain [S16.1XXA] INVALID FOR*06/01/2016 Cervical disc disease [M50.90] INVALID FOR*06/01/2016 Bulimia [F50.2] INVALID FOR* Eating disorder [F50.9] INVALID FOR*06/01/2016 Positive PPD [R76.11] INVALID FOR* Personality disorder with predominantly sociopa*INVALID FOR* Insomnia [G47.00] INVALID FOR* Cataract of both eyes [H26.9] INVALID FOR*06/01/2016 More... Cervicalgia [M54.2] INVALID FOR* Lumbago [M54.5] INVALID FOR*06/01/2016 Encounter for long-term (current) use of medica*INVALID FOR*06/01/2016 Chronic pain syndrome [G89.4] INVALID FOR*06/01/2016 Left-sided low back pain with left-sided sciati*INVALID FOR* HNP (herniated nucleus pulposus), lumbar [M51.2*INVALID FOR* Rheumatoid arthritis involving multiple sites w*INVALID FOR* Dry eye syndrome [H04.129] INVALID FOR* Hyperlipidemia [E78.5] Encounter Status:Closed by EPIC, PRODUSER on 01/24/18 XR CERVICAL 4V Observed: 07/29/2017 Status: F Source: [place] AP/LAT/OBL 4:26 PM [facility] [place] REPOSITORY * * *Final Report* * * DATE OF EXAM: Jul 29 2017 4:26PM WOX [id number] - XR CERVICAL 4V AP/LAT/OBL / PROCEDURE REASON: neck pain * * * * Physician Interpretation * * * * HISTORY: neck pain TECHNIQUE: Cervical spine, 5 views COMPARISON: 05/07/2011 RESULT: Again seen is mild gentle curvature convex left on the frontal view and there is straightening of the normal cervical lordotic curvature on the lateral view. Only the first 5 cervical vertebral bodies are seen. As before there is bony fusion C 3-4 probably postsurgical rather than developmental. There may be some bony fusion across the facet joints at this level as well. There is mild disc space narrowing C2- 3 and C4-5 with small multilevel endplate osteophytes. Normal atlantodental interval. There is bilateral multilevel neural foraminal narrowing. Bones are osteopenic. Unchanged wires transfix the right mandible 2 of which are broken. There is a right cochlear device. IMPRESSION: LIMITED EXAM WITH STABLE POSTSURGICAL AND DEGENERATIVE CHANGE Creative Developer: [facility] Transcribe Date/Time: Jul 29 2017 4:59P Dictated by : HILDA PRINCE MD This examination was interpreted and the report reviewed and electronically signed by: HILDA PRINCE MD on Jul 29 2017 5:07PM EST [id number] XR CHEST 2V FRONTAL/LAT Observed: 07/29/2017 Status: F Source: [place] 4:26 PM [facility] REPOSITORY * * *Final Report* * * DATE OF EXAM: Jul 29 2017 4:26PM WOX [id number] - XR CHEST 2V FRONTAL/LAT / PROCEDURE REASON: Nonspecific reaction to tuberculin skin test without active tuberculosis * * * * Physician Interpretation * * * * EXAMINATION: CHEST RADIOGRAPH (2 VIEW FRONTAL and LATERAL) Clinical History: Nonspecific reaction to tuberculin skin test without active tuberculosis MQ: XC2_5 Comparison: Chest x-ray on 10/23/2013 RESULT: Lines, tubes, and devices: None. Lungs and pleura: Questionable small patchy opacity overlying the left midlung. No lung mass. No pleural effusion. Cardiomediastinal silhouette: Normal cardiomediastinal silhouette. Other: Stable synostoses of the right first and second ribs. IMPRESSION: Questionable small patchy opacity overlying the left midlung. Suggest follow-up. Creative Developer: ALEXEI Transcribe Date/Time: Jul 29 2017 7:17P Dictated by : HENNY MACE MD This examination was interpreted and the report reviewed and electronically signed by: HENNY MACE MD on Jul 29 2017 7:19PM EST [id number] PROGRESS Observed: 07/29/2017 Status: COMPLETED Source: [place] 4:13 PM [facility] REPOSITORY O ID: [id number] Author: Shania Diaz (Rt) Philip Garcia Service: (none) Author Type: Warehouse Manager Type: Progress Notes Filed: 07/29/2017 4:26 PM Note Text: Radiology Service Progress Note PATIENT NAME: David Berg DATE OF SERVICE: July 29, 2017 TIME: 4:13 PM PATIENT IDENTITY VERIFICATION COMPLETED USING TWO (2) METHODS: Patient confirmed name verbally and Date of . PATIENT GENDER DATA: Female. status: : No status: NO. PATIENT RELEVANT IMPLANT DATA REVIEWED: Not Applicable RADIOLOGY DEPARTMENT: General X-ray: Exam(s) Completed: Spine X-Ray(s): Cervical AP / LAT / OBL PERIPHERAL IV DATA: Not applicable SIGNED BY: RT Le July 29, 2017 4:13 PM Observed: 07/25/2017 Status: F Source: [place] CULTURE, EAR/MASTOID 11:05 AM [facility] [place] REPOSITORY Gram Stain Gram Stain 1+ Epithelial cells No White Blood Cells 4+ Gram positive cocci 2+ Gram positive rods 1+ Gram negative rods Ear/Mast Cult #1 There are no CLSI standards for interpretation of this Drug/Organism combination. #2 Clinical correlation necessary, Possible skin contamination. ORGANISM 1: Corynebacterium amycolatum Amount Growth 3+ ORGANISM 2: Staphylococcus epidermidis Amount Growth Rare Staphylococcus epidermidis: REACTION Benzylpenicillin NF >=0.5 R Cefoxitin *NF - Clindamycin $$ >=8 R Inducable Clindamycin Resistan - Erythromycin $ >=8 R Gentamicin $ <=0.5 S Levofloxacin $ >=8 R Linezolid $$$$ 1 S Oxacillin NF <=0.25 S Tigecycline $$$$ 0.25 S Rifampin $$ <=0.5 S Tetracycline NF 2 S Vancomycin $ 1 S (NF) indicates non-formulary drug at [facility]. Approval by Infectious Disease Specialist required before non-formulary drugs may be ordered and/or dispensed. * CLSI guidelines does not recommend testing of cephalosporins. This interpretation is deduced from Beta-lactam/penicillin results. Cult, Anaerobic Studies have confirmed that Anaerobic Gram Positive Cocci are routinely susceptible to: Penicillin/Ampicillin, Ampicillin/Sulbactam, Piperacillin/Tazobactam, Cefoxatin, Ertapenem, Imipenem, Meropenem and Metronidazole and vary in resistance to: Clindamycin and Moxifloxacin. ORGANISM 1: Anaerobic cocci Performed By: #### M100.1100 #### [facility] [place], [address] COMP METABOLIC PANEL Collected: 07/25/2017 Status: F Source: [place] 10:20 AM [facility] REPOSITORY TYPE CODE TESTS RESULT OUT OF REFERENCE UNITS RANGE LAB TP 6.3-8.0 g/dL Protein, Total 7.0 LAB ALB 3.9-4.9 g/dL Albumin 4.3 LAB CA 8.5-10.2 mg/dL Calcium, Total 9.5 LAB TBIL 0.2-1.3 mg/dL Bilirubin, Total 0.2 LAB ALKP 32-117 U/L Alkaline Phosphatase 68 LAB AST 13-35 U/L AST 26 LAB GLU 74-99 mg/dL Glucose 93 Result Comment: The [place] Diabetes Association (ADA) provides guidance for cutoff values for fasting glucose and random glucose. The ADA defines fasting as no caloric intake for at least 8 hours. Fas ting plasma glucose results between 100 to 125 mg/dL indicate increased risk for diabetes (prediabetes). Fasting plasma glucose results greater than or equal to 126 mg/dL meet the criteria for diagnosis of diabetes. In the absence of unequivocal hyperglycemia, results should be confirmed by repeat testing. In a patient with classic symptoms of hyperglycemia or hyperglycemic crisis, random plasma glucose results greater than or equal to 200 mg/dL meet the criteria for diagnosis of diabetes. Reference: Standards of Medical Care in Diabetes 2016, [place] Diabetes Association. Diabetes Care. 2016.39(Suppl 1). LAB BUN 7-21 mg/dL BUN 11 LAB CRET 0.58-0.96 mg/dL Creatinine 0.89 LAB NA 136-144 mmol/L Sodium 140 LAB K 3.7-5.1 mmol/L Potassium 4.4 LAB CL 97-105 mmol/L Chloride 103 LAB CO2 22-30 mmol/L CO2 25 LAB AGAP 9-18 mmol/L Anion Gap 12 LAB ALT 7-38 U/L ALT 16 LAB GFRAA eGFR- Amer. >60 LAB GFRNAA . eGFR-All Other Races >60 Result Comment: eGFR (Estimated GFR) Units of measure: mL/min/1.73 meters squared eGFR is derived from the reexpressed MDRD Study equation using the following parameters: serum creatinine, age, gender and race. The creatinine assay has been calibrated to be traceable to IDMS. An eGFR <60 mL/min/1.73m2 for >3 months is consistent with chronic kidney disease. Refer to KDOQI guidelines for clinical interpretation. In patients with unstable renal function, e.g. those with acute kidney injury, the eGFR may not accurately reflect actual GFR. Performed By: #### CMP, LIPB, VITD, INFTBG #### [facility] [address] [place] [place], [place] [address] LIPID PANEL, BASIC Collected: 07/25/2017 Status: F Source: [place] 10:20 AM [facility] REPOSITORY TYPE CODE TESTS RESULT OUT OF REFERENCE UNITS RANGE LAB CHOL <200 mg/dL Cholesterol High 220 Result Comment: <200 mg/dL, Desirable 200-239 mg/dL, Borderline high >239 mg/dL, High LAB TRIGLY <150 mg/dL Triglyceride High 228 Result Comment: <150 mg/dL, Normal 150-199 mg/dL, Borderline high 200-499 mg/dL, High >499 mg/dL, Very high LAB HDL >39 mg/dL HDL-Cholesterol 53 Result Comment: 40-59 mg/dL, Acceptable >59 mg/dL, High: Negative risk factor for coronary heart disease <40 mg/dL, Low: Positive risk factor for coronary heart disease LAB LDL <100 mg/dL LDL-Cholesterol High 121 Result Comment: <100 mg/dL, Optimal 100-129 mg/dL, Near optimal/above optimal 130-159 mg/dL, Borderline high 160-189 mg/dL, High >189 mg/dL, Very high Secondary prevention optimal LDL Cholesterol levels are recommended to be < 70 mg/dL LAB NONHDL <130 mg/dL Non HDL High Cholesterol 167 Result Comment: <130 mg/dL, Optimal 130-159 mg/dL, Near optimal/above optimal 160-189 mg/dL, Borderline high 190-219 mg/dL, High >219 mg/dL, Very high Secondary prevention optimal non HDL Cholesterol levels are recommended to be < 100 mg/dL LAB FT hrs Fasting Time 0 LAB VLDL <30 mg/dL High VLDL Cholesterol 46 LAB TCHDL <5.10 TC:HDL Ratio 4.15 LAB LDLHDL <2.54 LDL:HDL Ratio 2.28 Result Comment: Reference: 1. National Cholesterol Education Program ATP III Guideline At-A-Glance Quick Desk Reference: National Heart, Lung, and Blood [place]. National Institutes of Health. 2001: NIH Publication No. 01-3305. 2. An International Atherosclerosis Society position paper: global recommendations for the management of dyslipidemia: executive summary, Atherosclerosis. 2014: 232(2):410-413. Performed By: #### CMP, LIPB, VITD, INFTBG #### [facility] [employer] [address] [id number] VITAMIN D 25 HYDROXY Collected: 07/25/2017 Status: F Source: [place] 10:20 AM [facility] REPOSITORY TYPE CODE TESTS RESULT OUT OF REFERENCE UNITS RANGE LAB VITD 31.0-80.0 ng/mL Low Vitamin D 25 19.3 Hydroxy Result Comment: Classification of 25 [place] Vitamin D status: Insufficiency/Moderate Deficiency: < or = 30 ng/mL Sufficiency/Optimal Levels: 31 to 80 ng/mL Toxicity: > 100 ng/mL Test performed by chemiluminescent immunoassay. Performed By: #### CMP, LIPB, VITD, INFTBG #### [facility] [employer] [address] [place], [place] [address] TB BY [employer] Collected: 07/25/2017 Status: F Source: [place] 10:20 AM [facility] REPOSITORY TYPE CODE TESTS RESULT OUT OF RANGE REFERENCE UNITS LAB TBGRES Negative TB Result Positive Abnormal Alert LAB TBGUI <0.35 IU/mL High TB Antigen 0.39 Response LAB TBGMIT >0.49 IU/mL Mitogen >10.00 Response LAB TBGINT Interpretation Result is consistent with current or previous infection with Mycobacterium tuberculosis. Performed By: #### CMP, LIPB, VITD, INFTBG #### [facility] [employer] [address] [place], [place] [address] ALLERGIES ALLERGIES DATE TYPE / CODE NAME / CODE REACTION SEVERITY SOURCE 12/08/19 Drug propoxyphene Hives Unknown [place] 18 Allergy/[id number] HCl/[id number](RXNO [facility] (SNOMED CT) ) Hospital Repository 12/08/19 Drug propoxyphene Hives Unknown [place] 18 Allergy/617003824 napsylate/[id number] [facility] ([facility]NORM) Hospital Repository 12/08/19 Drug pentazocine Itching Unknown [place] 18 Allergy/156103372 lactate/A576595045( [facility] (SNOMED [facility]) RXNORM) Hospital Repository 12/08/19 Drug cyclobenzaprine Upset Stomach Unknown [place] 18 Allergy/716630225 HCl/H228948130(RXNO [facility] (SNOMED CT) ) Hospital Repository 12/08/19 Drug tramadol Upset Stomach Unknown [place] 18 Allergy/896596309 HCl/M745026403(RXNO [facility] (SNOMED CT) ) Hospital Repository 12/08/19 Drug venlafaxine Upset Stomach Unknown [place] 18 Allergy/833214994 HCl/K311695125(RXNO [facility] (SNOMED CT) ) Hospital Repository 12/08/19 Drug codeine/[id number]( Hives Unknown [place] 18 Allergy/007475988 RXNORM) [facility] (SNOMED CT) Hospital Repository 12/08/19 Drug acetaminophen/F0060 Hives Unknown [place] 18 Allergy/030689483 74837(RXNORM) [facility] (SNOM[facility] Hospital Repository 12/08/19 Drug oxaprozin/O86067680 Hives Unknown [place] 18 Allergy/751496435 3(RXNORM) [facility] (SNOMED CT) Hospital Repository 12/08/19 Drug oxybutynin/M1273836 Unknown Unknown [place] 18 Allergy/695869339 15(RXNORM) [facility] (SNOMED CT) Hospital Repository 12/08/19 Drug rofecoxib/Y85690130 Rash Unknown [place] 18 Allergy/398482353 7(RXNORM) [facility] (SNOMED CT) Hospital Repository 12/08/19 Miscellaneous PINE Hives Unknown [place] 18 Allergy/657647957 [facility] (SNOMED CT) Hospital Repository 12/15/19 DRUG GABAPENTIN Mental Chg [place] 16 INGREDI/239165208 Clinic Main (SNOMED CT) [place] Repository 11/20/19 DRUG OXYBUTYNIN OTHER: SEE C [place] 12 INGREDI/158243543 Clinic Main (SNOMED CT) [place] Repository 12/08/19 Environ/558458562 TREES [place] 09 (SNOMED CT) Clinic Main [place] Repository 01/03/20 DRUG OXAPROZIN RASH [place] 05 INGREDI/322635144 Clinic Main (SNOMED CT) [place] Repository 01/03/20 DRUG VENLAFAXINE HCL INTOLERANCE [place] 05 INGREDI/576825450 Clinic Main (SNOMED CT) [place] Repository 01/03/20 DRUG CYCLOBENZAPRINE HCL GI UPSET [place] 05 INGREDI/971496828 Clinic Main (SNOMED CT) [place] Repository 01/03/20 DRUG/044245045(SN HYDROCODONE-ACETAMI GI UPSET [place] [address]) NOPHEN Clinic Main [place] Repository 01/03/20 DRUG PENTAZOCINE LACTATE ITCHING [place] 05 INGREDI/989394992 Clinic Main (SNOMED CT) [place] Repository 01/03/20 DRUG TRAMADOL HCL GI UPSET [place] 05 INGREDI/004122148 Clinic Main (SNOMED CT) [place] Repository 01/03/20 DRUG ROFECOXIB RASH [place] 05 INGREDI/169012834 Clinic Main (SNOMED CT) [place] Repository 10/27/19 DRUG CODEINE RASH [place] 05 INGREDI/997237669 Clinic Main (SNOMED CT) [place] Repository 10/27/19 DRUG/564070666(SN PROPOXYPHENE RASH [place] [address]) N-ACETAMINOPHEN Clinic Main [place] Repository 10/27/19 DRUG PROPOXYPHENE HCL RASH [place] 05 INGREDI/471206226 Clinic Main (SNOMED CT) [place] Repository ENCOUNTERS ENCOUNTERS ADMIT/DISCHARGE ACCOUNT ADMITTING ENCOUNTER LOCATION SOURCE NUMBER CLASS 04/30/2018/04/30/19 [id number] Ambulatory [place] 19 [facility] Main [place] Repository 04/30/2018/04/30/19 [id number] Ambulatory [place] 19 [facility] Main [place] Repository 04/30/2018/04/30/19 [id number] Ambulatory [place] [facility] Main [place] Repository 04/30/2018/04/30/19 [id number] Ambulatory [place] [address] [facility] Main [place] Repository 04/28/2018/04/29/19 [id number] Ambulatory [place] [address] [facility] Main [place] Repository 04/24/2018/04/24/19 [id number] Ambulatory [place] [address] [facility] [place] Repository 04/23/2018/04/24/19 [id number] Ambulatory [place] [address] [facility] [place] Repository 04/21/2018/04/22/19 [id number] Ambulatory [place] 19 [facility] [place] Repository 04/10/2018/04/10/20 [id number] Ambulatory [place] 18 [facility] Main [place] Repository 04/10/2018/04/14/20 [id number] Ambulatory [place] 18 [facility] [place] Repository 04/02/2018/04/03/20 [id number] Ambulatory [place] 18 [facility] [place] Repository 03/31/2018/04/01/20 [id number] Ambulatory [place] [address] [facility] [place] Repository 03/27/2018 [id number] Ambulatory [facility] ing:MEDOUT Repository 03/26/2018/03/27/20 [id number] Ambulatory [place] 18 [facility] [place] Repository 03/24/2018/03/26/20 [id number] Ambulatory [place] 18 [facility] [place] Repository 03/19/2018/03/21/20 [id number] Ambulatory [place] 18 [facility] [place] Repository 03/12/2018/03/14/20 [id number] Ambulatory [place] 18 [facility] [place] Repository 03/10/2018/03/12/20 [id number] Ambulatory [place] 18 [facility] [place] Repository 03/05/2018/03/07/20 [id number] Ambulatory [place] 18 [facility] [place] Repository 03/03/2018/03/04/20 [id number] Ambulatory [place] [address] [facility] [place] Repository 02/26/2018 [id number] Ambulatory [facility] ing:MEDOUTP Repository 02/24/2018/02/27/20 [id number] Ambulatory [place] [address] [facility] Main [place] Repository 02/19/2018/02/21/20 [id number] Ambulatory [place] [address] [facility] [place] Repository 02/17/2018/02/19/20 [id number] Ambulatory [place] [address] [facility] [place] Repository 02/12/2018/02/18/20 [id number] Ambulatory [place] [address] [facility] [place] Repository 02/10/2018/02/12/20 [id number] Ambulatory [place] [address] [facility] [place] Repository 02/05/2018/02/08/20 [id number] Ambulatory [place] [address] [facility] [place] Repository 01/29/2018/02/01/20 [id number] Ambulatory [place] [address] [facility] [place] Repository 01/29/2018 [id number] Ambulatory [facility] ing:MEDOUTP Repository 01/27/2018/01/29/20 [id number] Ambulatory [place] 18 [facility] [place] Repository 01/24/2018/01/28/20 [id number] Ambulatory [place] [address] [facility] [place] Repository 01/21/2018/01/22/20 [id number] Ambulatory [place] [address] [facility] [place] Repository 01/15/2018/01/17/20 [id number] Ambulatory [place] [address] [facility] [place] Repository 01/15/2018/01/16/20 [id number] Ambulatory [place] 18 [facility] [place] Repository 01/13/2018/01/15/20 [id number] Ambulatory [place] 18 [facility] [place] Repository 01/08/2018/01/11/20 [id number] Ambulatory [place] [address] [facility] [place] Repository 01/08/2018/01/09/20 [id number] Ambulatory [place] [address] [facility] [place] Repository 01/03/2018/01/04/20 [id number] Ambulatory [place] [address] [facility] [place] Repository 12/31/2017 [id number] Ambulatory [facility] ing:CT Repository 12/18/2017/12/20/19 [id number] Ambulatory [place] 18 [facility] [place] Repository 12/11/2017/12/12/19 [id number] Ambulatory [address] Repository 12/07/2017 [id number] Yousif Mehran Ambulatory BMSBuilding:Shavon Ma [facility] Repository 12/07/2017/12/09/19 [id number] Yousif Mehran Ambulatory [address] Hospital[facility] Hospital ing:YI9Aasf: Repository EA254Igl: 1 12/07/2017 [id number] Ambulatory BMSBuilding:Shavon Ma [facility] Repository 12/06/2017/12/08/19 [id number] Emergency [address] HospitalBuild Hospital ing:ED Repository 10/13/2017/10/14/19 [id number] Emergency [place] [facility] ing:ED Repository 10/07/2017/10/09/19 [id number] Ambulatory [address] Repository 08/30/2017 [id number] Ambulatory [facility] Hospital ing:MEDOUTP Repository 08/30/2017 [id number] Ambulatory [facility] ing:[facility]SPEC Repository 08/28/2017 [id number] Ambulatory [facility] Hospital ing:CT Repository 08/26/2017 [id number] Ambulatory [facility] Hospital ing:LAB Repository 07/29/2017/07/30/19 [id number] Ambulatory [address] Repository 07/29/2017 [id number] Ambulatory [facility] Repository 07/29/2017 [id number] Ambulatory [facility] Hospital ing:MEDOUTP Repository 07/25/2017 [id number] Ambulatory [facility] Hospital ing:LABSPEC Repository 07/25/2017/07/26/19 [id number] Ambulatory [address] Repository 07/01/2017 [id number] [facility] ing:[facility]P Repository 05/31/2017 [id number] [facility] Repository 05/23/2017 [id number] Ambulatory [place] [facility] Repository PAYERS PAYERS ENCOUNTER GUARANTOR PAYER SUBSCRIBER SOURCE 03/27/2018 DAVID L Primary DAVID L [place] [id number] ICKES Insurance:MEDICAL THOMASDOB: [facility] [id number] Hospital [address]Tju: (330) Number: Repository [phone] () [id number] Date:2061-08-12[address] [place] [address]MC: 03/27/2018 Secondary DAVID L [place] Insurance:CARESOURCEP THOMASDOB: [facility] Number: [id number] Hospital [id number] Repository Date:2018-02-26[address]ATTN: [place] [address]VL: 03/27/2018 Tertiary NOT GIVENUNK [place] Insurance:SELF PAY [facility] Number: Effective Repository Date:2018-02-26 02/26/2018 DAVID L Primary DAVID L [place] [id number] ICKES Insurance:MEDICAL THOMASDOB: [facility] [id number] Hospital [address]Mmt: (330) Number: Repository [phone] () [id number] Date:3598-30-25[address] [address]LE: 02/26/2018 Secondary DAVID L [place] Insurance:CARESOURCEP THOMASDOB: [facility] Number: [id number] Hospital [id number] Repository Date:2018-01-29[address]ATTN: [place] [address]UH: 02/26/2018 Tertiary NOT GIVENUNK [place] Insurance:SELF PAY [facility] Number: Effective Repository Date:2018-01-29 01/29/2018 DAVID L Primary DAVID L [place] [id number] ICKES Insurance:MEDICAL THOMASDOB: [facility] [place] [id number] [address]Lab: [phone]) Number: Repository [phone] () [id number] Date:1192-07-97[address] [place] [address]OM: 01/29/2018 Secondary DAVID L [place] Insurance:CARESOURCEP THOMASDOB: [facility] Number: [id number] Hospital [id number] Repository Date:2018-01-24 [address]ATTN: [place] [address]PR: 01/29/2018 Tertiary NOT GIVENUNK [place] Insurance:SELF PAY [facility] Number: Effective Repository Date:2018-01-24 12/31/2017 DAVID L Primary DAVID L [place] [id number] ICKES Insurance:MEDICAL THOMASDOB: [facility] [id number] Hospital 65187Uzc: (330) Number: Repository [phone] () [id number] Date:[id number] [address]CG: 12/31/2017 Secondary DAVID L [place] Insurance:CARESOURCEP THOMASDOB: [facility] Number: [id number] Hospital [id number] Repository Date:2017-12-24 [address]ATTN: [place] [address]TK: 12/31/2017 Tertiary NOT GIVENUNK [place] Insurance:SELF PAY [facility] Number: Effective Repository Date:2017-12-24 12/07/2017 DAVID L Primary DAVID L [place] [id number] [place]CK[place] Insurance:CARESOURCEP THOMASDOB: [facility] Number: [id number] Hospital [address]Kwh: [phone]) [id number] Repository [phone] () Date:2017-12-07 [address]ATTN: [place] [address]OJ: 12/07/2017 Secondary NOT GIVENUNK [place] Insurance:SELF PAY [facility] Number: Effective Repository Date:2017-12-07 12/07/2017 DAVID L Primary DAVID L [place] [id number] ICKES Insurance:MEDICAL THOMASDOB: [facility] [id number] Hospital [address]Ijf: (330) Number: Repository [phone] () [id number] Date:4112-25-84[address] [place] [address]SY: 12/07/2017 Secondary DAVID L [place] Insurance:CARESOURCEP THOMASDOB: [facility] Number: [id number] Hospital [id number] Repository Date:2017-12-07P [address]ATTN: [place] [address]YK: 12/07/2017 Tertiary NOT GIVENUNK [place] Insurance:SELF PAY [facility] Number: Effective Repository Date:2017-12-07 12/07/2017 DAVID L Primary DAVID L [place] [id number] [place]CK[place] Insurance:CARESOURCEP THOMASDOB: [facility] Number: [id number] Hospital [address]Nvk: 330 [id number] Repository [phone] () Date:2017-12-07P [address]ATTN: [place] [address]NH: 12/07/2017 Secondary NOT GIVENUNK [place] Insurance:SELF PAY [facility] Number: Effective Repository Date:2017-12-07 12/06/2017 DAVID L Primary DAVID L [place] [id number] [place] Insurance:MEDICAL THOMASDOB: [facility] [id number] Hospital 201[address]Lys: (330) Number: Repository [phone] () [id number] Date:4148-84-06JE [address] [place] [address]TA: 12/06/2017 Secondary DAVID L [place] Insurance:CARESOURCEP THOMASDOB: [facility] Number: [id number] Hospital [id number] Repository Date:2017-12-06 [address]ATTN: [place] [address]FB: 12/06/2017 Tertiary NOT GIVENUNK [place] Insurance:SELF PAY [facility] Number: Effective Repository Date:2017-12-06 10/13/2017 DAVID L Primary DAVID L [place] [id number] [place] Insurance:CARESOURCEP THOMASDOB: [facility] Number: [id number] Hospital 230[address]Poq: [phone]) [id number] Repository [phone] () Date:2017-10-13 [address]ATTN: [place] [address]SC: 10/13/2017 Secondary NOT GIVENUNK [place] Insurance:SELF PAY [facility] Number: Effective Repository Date:2017-10-13 08/30/2017 DAVID L Primary DAVID L [place] [id number] [place] Insurance:CARESOURCEP THOMASDOB: [facility] Number: [id number] Hospital 90370Mop: [phone] [id number] Repository [phone] (HP) Date:2017-07-29 [address]ATTN: [place] [address]RH: 08/30/2017 Secondary NOT GIVENUNK [place] Insurance:SELF PAY [facility] Number: Effective Repository Date:2017-07-29 08/30/2017 DAVID L Primary DAVID L [place] [id number] [place]CK[place] Insurance:CARESOURCEP THOMASDOB: [facility] Number: [id number] Hospital 87872Nwr: [phone] [id number] Repository [phone] (HP) Date:2017-08-30 [address]ATTN: [place] [address]HW: 08/30/2017 Secondary NOT GIVENUNK [place] Insurance:SELF PAY [facility] Number: Effective Repository Date:2017-08-30 08/28/2017 DAVID L Primary DAVID L [place] [id number] [place] Insurance:CARESOURCEP THOMASDOB: [facility] Number: [id number] Hospital [address]Wwm: [phone]) [id number] Repository [phone] (HP) Date:2017-08-15 [address]ATTN: [place] [address]YR: 08/28/2017 Secondary NOT GIVENUNK [place] Insurance:SELF PAY [facility] Number: Effective Repository Date:2017-08-15 08/26/2017 DAVID L Primary DAVID L [place] [id number] [place] Insurance:CARESOURCEP THOMASDOB: [facility] Number: [id number] Hospital 67[address]Vsc: [phone]) [id number] Repository [phone] (HP) Date:2017-08-23 [address]ATTN: [place] [address]RH: 08/26/2017 Secondary NOT GIVENUNK [place] Insurance:SELF PAY [facility] Number: Effective Repository Date:2017-08-23 07/29/2017 DAVID L Primary DAVID L [place] [id number] [place]CK[place] Insurance:CARESOURCEP THOMASDOB: [facility] Number: [id number] Hospital 16853Zqw: [phone]) [id number] Repository [phone] (HP) Date:2017-07-01 [address]ATTN: [place] [address]PO: 07/29/2017 Secondary NOT GIVENUNK [place] Insurance:SELF PAY [facility] Number: Effective Repository Date:2017-07-01 07/25/2017 DAVID L Primary DAVID L [place] [id number] [place] Insurance:CARESOURCEP THOMASDOB: [facility] Number: [id number] Hospital 60294Rtl: [phone]) [id number] Repository [phone] () Date:2017-07-25 [address]ATTN: [place] [address]GQ: 07/25/2017 Secondary NOT GIVENUNK [place] Insurance:SELF PAY [facility] Number: Effective Repository Date:2017-07-25 07/01/2017 DAVID L Primary DAVID L [place] [id number] [place] Insurance:CARESOURCEP THOMASDOB: [facility] Number: [id number] Hospital 487[address]Kzk: ([phone]) [id number] Repository [phone] () Date:2017-06-25P [address]ATTN: [place] [address]NT: 07/01/2017 Secondary NOT GIVENUNK [place] Insurance:SELF PAY [facility] Number: Effective Repository Date:2017-06-25 05/31/2017 DAVID L Primary DAVID L [place] [id number] [place] Insurance:CARESOURCEP THOMASDOB: [facility] Number: [id number] Hospital 094[address]Unv: [phone] [id number] Repository [phone] (HP) Date:2017-05-30 [address]ATTN: [place] [address]GN: 05/31/2017 Secondary NOT GIVENUNK [place] Insurance:SELF PAY [facility] Number: Effective Repository Date:2017-05-30 05/23/2017 DAVID L Primary DAVID L [place] [id number] [place] Insurance:MEDICAL THOMASDOB: [facility] [id number] Hospital [address]Fzm: ([phone]) Number: Repository [phone] () [id number] Date:5250-51-26[address] [address]AX: 05/23/2017 Secondary DAVID L [place] Insurance:CARESOPRUDENCIO GIBSONB: [facility] Number: [id number] Hospital [id number] Repository Date:2017-04-18P [address]ATTN: [place] [address]NV: 05/23/2017 Tertiary NOT GIVENUNK [place] Insurance:SELF PAY [facility] Number: Effective Repository Date:2017-04-18
== END ==
PROVIDERS: Family Provider Family Medicine; PCP Family Medicine
DX: M06.9 Rheumatoid arthritis, unspecified (principal)
CPT/HCPCS: 96365; J7050; A4216; J0129

== ENCOUNTER → 2018-05-19 14:36 | Outpatient (CLI) | payer OTHER, MEDICAID, SELFPAY ==
[2018-03-27 14:53] VITALS: BMI 25.7
[2018-05-19 14:51] VITALS: BP 119/72; PULSE 75; RESP 16; TEMP 36.6; BMI 25.7
== END ==
PROVIDERS: Family Provider Family Medicine; PCP Family Medicine
DX: M06.9 Rheumatoid arthritis, unspecified (principal)
CPT/HCPCS: 96365; J7050; A4216; J0129

== ENCOUNTER → 2018-07-11 14:31 | Outpatient (CLI) | payer OTHER, MEDICAID, SELFPAY ==
[2018-05-19 14:51] VITALS: BMI 25.7
[2018-07-11 14:38] VITALS: BP 115/67; PULSE 89; RESP 16; TEMP 36.2; O2SAT 93; BMI 25.4
[2018-07-11 15:22] LABS: ALB/GLOB Ratio 1.2 RATIO (0.9-2.4); AST(SGOT) 27 U/L (15-37); Alanine Aminotransfer ALT/SGPT 23 U/L (13-56); Albumin, Serum 3.7 g/dL (3.2-5.0); Alkaline Phosphatase 76 U/L (45-117); Anion Gap 4 (5-15); BUN 10 mg/dL (7-18); BUN/Creat Ratio 11.5 RATIO (10-20); Calcium,Total 8.9 mg/dL (8.5-10.1); Chloride 109 mmol/L (98-107); Creatinine, Serum 0.87 mg/dL (0.55-1.02); EST Glomerular Filtration Rate 70 mL/min (>60); Est Glom Filt Rate - Afr Amer 85 mL/min (>60); Estimated Creatinine Clearance 59.38 ml/min; Globulin 3.2 g/dL (2.2-4.2); Glucose 96 mg/dL (74-106); Protein, Total 6.9 g/dL (6.4-8.2); Sodium Level 140 mmol/L (136-145)
[2018-07-11 18:29] LABS: Absolute Lymphocyte Count 2.89 X10^3/ul (0.83-4.51); Absolute Neutrophil Count 2.7 X10^3/uL (2.0-7.7); Basophil# 0.02 X10^3/uL; Basophil% 0.3 % (0-1); Eosinophil# 0.07 X10^3/uL; Eosinophils% 1.2 % (0-5); Hematocrit 41.4 % (37-47); Hemoglobin 13.8 g/dl (12.0-15.0); Lymphocyte # 2.89 X10^3/ul (4.0); Lymphocyte % 47.9 % (19-41); Mean Corp Hgb Conc 33.3 g/gl (32-36); Mean Corpuscular Hgb 31.7 pg (27.0-32.0); Monocyte# 0.36 X10^3/uL; Neutrophil # 2.69 X10^3/uL (2.7-7.7); Neutrophil % 44.6 % (47-70); POSITIVE COUNT NO; POSITIVE DIFFERENTIAL NO; POSITIVE MORPHOLOGY NO; Platelet Count 268 K/mm3 (150-450); RBC Distribution Width CV 14.9 % (11.6-14.6); RBC Distribution Width SD 51.7 fl (35.1-43.9); Red Blood Count 4.36 M/mm3 (4.2-5.4)
== END ==
PROVIDERS: Family Provider Family Medicine; PCP Family Medicine; Referring Provider Family Medicine; Visit Provider Family Medicine
DX: M06.9 Rheumatoid arthritis, unspecified (principal)
CPT/HCPCS: 96365; 80053; 85025; J7050; A4216; J0129

== ENCOUNTER 2018-07-23 17:59 | Emergency (ER) | payer OTHER, MEDICAID, SELFPAY ==
[2018-07-11 14:38] VITALS: BMI 25.4
[2018-07-23 18:00] VITALS: BP 153/83; PULSE 99; RESP 16; TEMP 36.2; BMI 24.6
--- NOTE | 2018-07-23 18:21 | ED.VISSUMM ---
- ER Visit Summary Date of Service: 07/23/18 Chief Complaint: Abdominal pain History of Present Illness: The patient is a 62 F who presents the emergency department with vomiting diarrhea and abdominal pain. The patient states that 11 days ago she was having difficulty urinating which is not uncommon for her and began to self cath. After 3 days she is able urinate again. However she developed vomiting and diarrhea. She notes that at nighttime she gets a severe cramping pain that makes her go to the bathroom and while she is having the pain she vomits. No syncope. No blood in the stool or vomit. No fevers. No bad food exposure, no recent antibiotics or travel. Last emesis was at 0430 hours. She states she called her doctor's office and was advised to come to the emergency department to get imaging. Physical Examination: Afebrile vital signs are stable Gen: Well-nourished well-developed Head: Normocephalic atraumatic Eyes: Perrl EOMI ENT: TMs clear no rhinorrhea moist mucous membranes Neck: Supple no lymphadenopathy no JVD nontender CVS: Regular rate rhythm no murmurs normal S1-S2 Respiratory: No distress clear to auscultation bilaterally chest nontender Abdomen: Soft minimally tender on the left side of the abdomen without guarding or rebound nondistended normal bowel sounds no masses Back: Nontender Extremity: Nontender no edema Skin: Normal color no rash Neuro: alert orientated ?3 CN II-XII intact normal strength sensation reflexes gait cerebellar Psych: Normal affect normal mood Test Results: White count 10.5. Potassium 3.3. Liver lipase normal. Urinalysis normal. CT the pelvis was performed which demonstrates circumferential thickening of the descending and sigmoid colon consistent with a nonspecific colitis versus other. Please see radiologist read for further details. Emergency Department Course and Treatment: Patient will be discharged home on Cipro and Flagyl. She is instructed to follow-up with primary care in the office. Return if worsening or concerns. I will write for some Zofran as well as Larslan for pain. Impression: 1. Acute colitis This note was generated with [employer] Easy dictation software. It may contain incorrect words, spelling, and punctuation that were not noted in review of the chart prior to signing ED Disposition - Plan for ED Patient: Disposition: Home or Assisted Living Diagnosis: Colitis Prescriptions: Hydrocodone Bitart/Apap 5-325 [Larslan 5MG-325MG] 1 tab PO Q6H PRN PRN 3 Days #10 tab PRN Reason: Pain Ondansetron [Zofran Odt] 4 mg PO Q8H PRN PRN #10 tab PRN Reason: Nausea Metronidazole [Flagyl] 500 mg PO Q8H #21 tab Ciprofloxacin [Cipro] 500 mg PO BID #14 tab Referrals: Rodney Pool MD [Primary Care Provider] - 1 Week
[2018-07-23 18:47] LABS: Bacteria 0 SEEN /hpf (None Seen); Mucous, Urine 0 SEEN /hpf (<or=2+); Red Blood Cells-Urine 0 SEEN /hpf (0-5)
[2018-07-23] MEDS: 0.9% Normal Saline 1,000 ML 1000 ML IV (19:03)
[2018-07-23 19:05] LABS: Color, Urine Yellow (Yellow); Glucose, Dipstick Normal (Normal); Ketone-Dipstick Negative (Negative); Leukocyte Esterase-Dipstick 25 /ul (Negative); Nitrite-Dipstick Negative (Negative); Occult Blood-Urine Negative /ul (Negative); Protein-Dipstick Negative (Negative); Urine Bilirubin Dipstick Negative (Negative); Urine Clarity Clear (Clear); Urine Urobilinogen Normal (Normal); Urine pH 6.5 (5.0 - 8.0)
--- NOTE | 2018-07-23 19:15 | ED.RN ---
ATTEMPTED TO DRAW LABS 6 TIMES BY 3 DIFFERENT PEOPLE AND WAS UNSUCCESSFUL. PT IS REFUSING TO ALLOW ANYONE TO USE HER HANDS. LAB WAS CALLED TO COME ATTEMPT.
[2018-07-23 19:19] LABS: Squamous Epithelial Cells - UA 0-5 SEEN /hpf (5-10); White Blood Cells 0-5 SEEN /hpf (0-5)
[2018-07-23 19:54] LABS: Absolute Lymphocyte Count 3.56 X10^3/ul (0.83-4.51); Basophil# 0.01 X10^3/uL; Basophil% 0.1 % (0-1); Eosinophil# 0.09 X10^3/uL; Eosinophils% 0.9 % (0-5); Hematocrit 43.1 % (37-47); Hemoglobin 14.7 g/dl (12.0-15.0); Lymphocyte # 3.56 X10^3/ul (4.0); Mean Corp Hgb Conc 34.1 g/gl (32-36); Mean Corpuscular Hgb 31.4 pg (27.0-32.0); Mean Corpuscular Volume 92.1 fL (81-99); Mean Platelet Vol. 10.3 fl (6.2-12.0); Monocyte# 0.81 X10^3/uL; Monocyte% 7.7 % (0-10); Neutrophil # 5.99 X10^3/uL (2.7-7.7); Neutrophil % 57.1 % (47-70); POSITIVE COUNT NO; POSITIVE DIFFERENTIAL NO; POSITIVE MORPHOLOGY NO; Platelet Count 231 K/mm3 (150-450); RBC Distribution Width CV 14.6 % (11.6-14.6); RBC Distribution Width SD 49.4 fl (35.1-43.9); Red Blood Count 4.68 M/mm3 (4.2-5.4); White Blood Count 10.5 K/mm3 (4.4-11.0)
[2018-07-23 20:12] LABS: AST(SGOT) 23 U/L (15-37); Alanine Aminotransfer ALT/SGPT 22 U/L (13-56); Albumin, Serum 3.6 g/dL (3.2-5.0); Alkaline Phosphatase 80 U/L (45-117); Anion Gap 6 (5-15); BUN 8 mg/dL (7-18); BUN/Creat Ratio 11.4 RATIO (10-20); Bilirubin, Direct 0.08 mg/dL (0.00-0.30); Calcium,Total 8.5 mg/dL (8.5-10.1); Chloride 109 mmol/L (98-107); EST Glomerular Filtration Rate 90 mL/min (>60); Est Glom Filt Rate - Afr Amer 109 mL/min (>60); Globulin 3.5 g/dL (2.2-4.2); Glucose 94 mg/dL (74-106); Lipase 121 U/L (73-393); Potassium 3.3 mmol/L (3.5-5.1); Protein, Total 7.1 g/dL (6.4-8.2); Sodium Level 139 mmol/L (136-145)
--- NOTE | 2018-07-23 20:19 | CT_ITS ---
STUDY: CT ABDOMEN AND PELVIS WITH CONTRAST REASON FOR EXAM: Female, 62 years old. Left lower quadrant pain, vomiting and diarrhea x9 days. The bladder sling. RADIATION DOSAGE (If Supplied By Facility): CTDIvol = ( 9.12 ) mGy, DLP = ( 676.00 ) mGycm TECHNIQUE: Transaxial images were obtained from the dome of the diaphragm to the symphysis pubis without oral contrast. 100ML IV/Oral Isovue 300 was administered. Sagittal and coronal images were reconstructed. Individualized dose optimization techniques were used for this CT. COMPARISON: December 06, 2017 CT abdomen and pelvis FINDINGS: The visualized lung bases are unremarkable. The visualized portions of the heart are within normal limits. Normal liver. Gallstones. Normal spleen. Prominent pancreatic duct measures up to 4 mm. Pancreas is otherwise unremarkable. Normal bilateral adrenal glands. Normal right kidney. Normal left kidney. Normal visualized stomach. Normal small intestine. Circumferential thickening sigmoid colon. There appear to be 2-3 additional areas of segmental narrowing and concentric thickening of the left colon. Colon is filled with contrast. Appendix not visualized. Normal abdominal aorta. Normal inferior vena cava. Normal retroperitoneum. Retroaortic renal vein on the left. Normal urinary bladder. Normal abdominal wall. Laminectomy L5. Pars defect on the right. CT/Abdomen/Pelvis WITH Contrast IMPRESSION: Multifocal thickening and narrowing of the left colon and sigmoid colon. Differential considerations include neoplasm and/or nonspecific colitis. Follow-up endoscopy recommended. Cholelithiasis. Prominent pancreatic duct. Follow-up MRCP and MRI may be helpful nonemergently. Electronically Signed: Scott Reid MD at 22:38 EDT , Service support ,
[2018-07-23 21:05] VITALS: BP 159/67; PULSE 82; RESP 18; O2SAT 98
[2018-07-23] MEDS: Ondansetron ODT 4 MG Tablet PO (23:13)
[2018-07-23] MEDS: Ciprofloxacin 500 MG Tablet PO (23:13)
[2018-07-23] MEDS: metroNIDAZOLE 500 MG Tablet PO (23:13)
[2018-07-23] MEDS: HYDROcodone Bitartrate/Apap 5/325 Tablet PO (23:14)
[2018-07-23 23:17] VITALS: BP 149/81; PULSE 89; RESP 16; O2SAT 97
== END 2018-07-23 23:18 | disposition home or self-care (01) ==
PROVIDERS: Emergency Provider Emergency Medicine; Family Provider Family Medicine; PCP Family Medicine
DX: K52.9 Noninfective gastroenteritis and colitis, unspecified (principal); J44.9 Chronic obstructive pulmonary disease, unspecified; M06.9 Rheumatoid arthritis, unspecified; E78.00 Pure hypercholesterolemia, unspecified; Z87.891 Personal history of nicotine dependence; Z79.899 Other long term (current) drug therapy
CPT/HCPCS: 36415; 74177; 80048; 80076; 81001; 83690; 85025; 96360; 96361; 99285; J7030; Q9967

== ENCOUNTER → 2018-08-08 | Outpatient (CLI) | payer MEDICAID, SELFPAY ==
[2018-07-11 14:38] VITALS: BMI 25.4
[2018-07-23 18:00] VITALS: BMI 24.6
[2018-08-08 15:32] VITALS: BP 129/69; PULSE 90; RESP 18; TEMP 36.4; O2SAT 95; BMI 24.9
== END | disposition home or self-care (01) ==
LOC: MEDOUTP 15:29
PROVIDERS: Family Provider Family Medicine; PCP Family Medicine; Referring Provider Family Medicine; Visit Provider Family Medicine
DX: M06.9 Rheumatoid arthritis, unspecified (principal)
CPT/HCPCS: 96365; J7050; A4216; J0129

== ENCOUNTER → 2018-09-05 | Outpatient (CLI) | payer MEDICAID, SELFPAY ==
[2018-08-08 15:32] VITALS: BMI 24.9
[2018-09-05 14:41] VITALS: BP 115/55; PULSE 96; RESP 16; TEMP 36.6; O2SAT 93; BMI 24.9
== END | disposition home or self-care (01) ==
LOC: MEDOUTP 14:28
PROVIDERS: Family Provider Family Medicine; PCP Family Medicine
DX: M06.9 Rheumatoid arthritis, unspecified (principal)
CPT/HCPCS: 96365; J7050; A4216; J0129

== ENCOUNTER → 2018-10-03 | Outpatient (CLI) | payer MEDICAID, SELFPAY ==
[2018-09-05 14:41] VITALS: BMI 24.9
[2018-10-03 11:40] VITALS: BP 115/69; PULSE 78; RESP 16; TEMP 36.8; O2SAT 96; BMI 23.1
== END | disposition home or self-care (01) ==
LOC: MEDOUTP 11:23
PROVIDERS: Family Provider Family Medicine; PCP Family Medicine
DX: M06.9 Rheumatoid arthritis, unspecified (principal)
CPT/HCPCS: 96365; J7050; A4216; J0129

== ENCOUNTER → 2018-10-30 | Outpatient (CLI) | payer MEDICAID, SELFPAY ==
[2018-10-03 11:40] VITALS: BMI 23.1
== END | disposition home or self-care (01) ==
LOC: LABSPEC 15:58
PROVIDERS: Family Provider Family Medicine; PCP Family Medicine; Referring Provider Otolaryngology; Visit Provider Otolaryngology
DX: H92.10 Otorrhea, unspecified ear (principal)
CPT/HCPCS: 87070; 87075; 87205

== ENCOUNTER → 2018-11-11 14:31 | Outpatient (CLI) | payer MEDICAID, SELFPAY ==
[2018-10-03 11:40] VITALS: BMI 23.1
[2018-11-11 14:42] VITALS: BP 103/59; PULSE 77; RESP 16; TEMP 36.6; BMI 22.8
== END ==
PROVIDERS: Family Provider Family Medicine; PCP Family Medicine; Referring Provider Nurse Practitioner Family; Visit Provider Nurse Practitioner Family
DX: M06.9 Rheumatoid arthritis, unspecified (principal)
CPT/HCPCS: 96365; J7050; A4216; J0129

== ENCOUNTER → 2018-12-09 | Outpatient (CLI) | payer MEDICAID, SELFPAY ==
[2018-11-11 14:42] VITALS: BMI 22.8
[2018-12-09 14:46] VITALS: BP 116/68; PULSE 81; RESP 16; TEMP 36.3; O2SAT 96; BMI 23.1
== END | disposition home or self-care (01) ==
LOC: MEDOUTP 14:40
PROVIDERS: Family Provider Family Medicine; PCP Family Medicine; Referring Provider Nurse Practitioner Family; Visit Provider Nurse Practitioner Family
DX: M06.9 Rheumatoid arthritis, unspecified (principal)
CPT/HCPCS: 96365; J7050; A4216; J0129

== ENCOUNTER → 2019-01-06 14:50 | Outpatient (CLI) | payer MEDICAID, SELFPAY ==
[2018-12-09 14:46] VITALS: BMI 23.1
[2019-01-06 15:03] VITALS: BP 114/72; PULSE 91; RESP 16; TEMP 36.8; O2SAT 95; BMI 21.8
== END ==
PROVIDERS: Family Provider Family Medicine; PCP Family Medicine; Referring Provider Nurse Practitioner Family; Visit Provider Nurse Practitioner Family
DX: M05.79 Rheumatoid arthritis with rheumatoid factor of multiple sites without organ or systems involvement (principal)
CPT/HCPCS: 96365; J7050; A4216; J0129

== ENCOUNTER → 2019-05-20 14:58 | Outpatient (CLI) | payer MEDICAID, SELFPAY ==
[2019-01-06 15:03] VITALS: BMI 21.8
--- NOTE | 2019-05-20 15:02 | CT_ITS ---
STUDY: CT BRAIN WITHOUT CONTRAST REASON FOR EXAM: Female, 63 years old. VISION CHANGES, FALLING 2 GROWTHS BEHIND EACH EYE, SOME TINGLING TEMPORAL REGION. H/O COCHLEAR IMPLANT. RADIATION DOSAGE (If Supplied By Facility): CTDIvol = ( 44.99 ) mGy, DLP = ( 779.24 ) mGycm TECHNIQUE: Transaxial CT imaging of the brain was performed without administration of intravenous contrast material. Individualized dose optimization techniques were used for this CT. COMPARISON: 05/06/2017 FINDINGS: Normal soft tissue structures. Right electronic/cochlear device of the right scalp causes significant spray artifact. Normal size ventricles and extra-axial spaces for the patient''s age. Normal white matter tracts of the cerebral hemispheres. Normal basal ganglia and thalami. Normal brainstem. Normal cerebellum. There is no intracranial hemorrhage. There are no findings of an acute ischemic infarction. Normal visualized paranasal sinuses. There are operative changes of the right mastoid air cells and ear cavity. Stable since prior study. There are operative changes of the right mandible partially visualized. CT/Brain/Head without Contrast IMPRESSION: 1. No acute intracranial hemorrhage or mass effect. 2. Stable exam. 3. Right cochlear implant. Electronically Signed: Gareth Sherman MD ([place]) at 12:43 EST , Service support ,
== END ==
LOC: CT 15:00
PROVIDERS: PCP Family Medicine; Referring Provider Family Medicine; Visit Provider Family Medicine
DX: H53.9 Unspecified visual disturbance (principal)
CPT/HCPCS: 70450

== ENCOUNTER → 2019-12-31 10:40 | Outpatient (CLI) | payer MEDICAID, SELFPAY ==
[2019-01-06 15:03] VITALS: BMI 21.8
--- NOTE | 2019-12-31 10:43 | ART_ITS ---
Reason For Study: PVD Procedure A bilateral lower extremity continuous wave Doppler with analog waveform analysis,segmental pressures,and ankle brachial indexes with exercise. Left Segmental Pressures Left brachial= 134mmHg. Left posterior tibial artery = 148mmHg. Left dorsalis pedis artery = 154mmHg. Left digit = 136 mmHg. The left dorsalis pedis waveforms are triphasic. The left posterior tibial artery waveforms are triphasic. Right Segmental Pressures Right brachial= 133mmHg. Right posterior tibial artery = 147mmHg. Right dorsalis pedis artery = 137mmHg. Right digit = 122 mmHg. The right dorsalis pedis waveforms are triphasic. The right posterior tibial artery waveforms are triphasic. Indices The right ankle brachial index by the dorsalis pedis is 1.02. The right ankle brachial index by the posterior tibial artery is 1.1.. The right digital-brachial index is .91. The right post exercise ankle brachial index is 1.19. The left ankle brachial index by the dorsalis pedis is 1.15. The left ankle brachial index by the posterior tibial artery is 1.1. The left digital-brachial index is 1.01. The left post exercise ankle brachial index is 1.22. Interpretation Summary Triphasic Doppler waveforms are noted at ankle level bilaterally. Pulse-volume recording waveform amplitudes appear diminished at digital level bilaterally, but are otherwise satisfactory at all other levels bilaterally. Resting ankle-brachial indices are normal bilaterally. Digital-brachial indices are normal bilaterally. Following a period of exercise, ankle pressures augment bilaterally, which is a normal physiological response. There is no evidence of significant arterial occlusive disease in the lower extremities bilaterally. Ordering Physician: Bruce Mckinney Performed By: REJI ETIENNE T
== END ==
PROVIDERS: PCP Family Medicine; Referring Provider Podiatrist; Visit Provider Podiatrist
DX: I73.9 Peripheral vascular disease, unspecified (principal)
CPT/HCPCS: 93924

== ENCOUNTER 2020-08-04 14:50 | Emergency (ER) | payer MEDICAID, SELFPAY ==
[2019-01-06 15:03] VITALS: BMI 21.8
[2020-08-04 14:52] VITALS: BP 134/72; PULSE 76; RESP 18; TEMP 36.2; O2SAT 98; BMI 18.8
--- NOTE | 2020-08-04 15:03 | EKG12_ITS ---
Test Reason : Blood Pressure : / mmHG Vent. Rate : 074 BPM Atrial Rate : 074 BPM P-R Int : 158 ms QRS Dur : 084 ms QT Int : 376 ms P-R-T Axes : 053 059 070 degrees QTc Int : 417 ms Normal sinus rhythm Septal infarct , age undetermined Abnormal ECG Confirmed by LAURITA KAISER, DESMOND ([id number]), features editor JAIMEE ROMERO ([id number]) on 08/08/2020 9:56:00 AM Referred By: NEGIN Confirmed By:RICK SHAY MD
--- NOTE | 2020-08-04 15:18 | CT_ITS ---
INDICATION: epigastric pain, recent biliary stent placement EXAMINATION: CT Abdomen And Pelvis W/ Contrast Injection TECHNIQUE: Helically acquired images were obtained of the abdomen and pelvis after IV contrast. A radiation dose optimization technique was used for this scan. IV Contrast dosage and agent: 75 cc ISOVUE 300 Oral contrast: Yes COMPARISON: 07/23/2018. FINDINGS: Visualized lung bases: Unremarkable Liver: No intrahepatic biliary ductal dilatation. The common bile duct is mildly dilated measuring 9 mm consistent with reservoir effect. Gallbladder: Surgically absent. Spleen: Unremarkable Pancreas: A biliary stent is seen traversing the uncinate process of the pancreas. Adrenal Glands: Unremarkable Kidneys: Unremarkable Vasculature: Severe aortoiliac atherosclerotic disease. GI Tract: Scattered diverticula throughout the colon without evidence of inflammation. Redemonstration of multifocal wall thickening of the descending and sigmoid colon. Lymphadenopathy: None Peritoneum: Small amount of free fluid in the pelvis. Significant amount of free air seen in the right pararenal space and surrounding the second portion of the duodenum/pancreatic head. Bladder: Unremarkable Reproductive organs: Unremarkable Bones/Soft tissues: Mild scattered degenerative changes of the visualized spine. CT/Abdomen/Pelvis WITH Contrast IMPRESSION: A biliary stent is seen traversing the uncinate process of the pancreas. As it is unclear if this stent communicates with the common bile duct, it could be within an accessory pancreatic duct (duct of Santorini). No intrahepatic biliary ductal dilatation. The common bile duct is mildly dilated measuring 9 mm consistent with reservoir effect. Significant amount of free air seen in the right pararenal space and surrounding the second portion of the duodenum/pancreatic head/uncinate process, likely postsurgical. Redemonstration of multifocal wall thickening of the descending and sigmoid colon. Differential considerations include neoplasm and/or nonspecific colitis. Follow-up endoscopy is again recommended. Electronically Signed: Jm Elizondo MD at 18:38 EDT Tel , Service support ,
[2020-08-04 15:23] LABS: Absolute Neutrophil Count 6.1 X10^3/uL (2.0-7.7); Basophil# 0.02 X10^3/uL; Basophil% 0.2 % (0-1); Eosinophil# 0.03 X10^3/uL; Eosinophils% 0.3 % (0-5); Hematocrit 40.8 % (37-47); Hemoglobin 12.8 g/dL (12.0-15.0); Lymphocyte % 27.9 % (19-41); Mean Corp Hgb Conc 31.4 g/dL (32-36); Mean Corpuscular Hgb 31.6 pg (27.0-32.0); Mean Corpuscular Volume 100.7 fL (81-99); Mean Platelet Vol. 9.7 fl (6.2-12.0); Monocyte# 0.52 X10^3/uL; Monocyte% 5.6 % (0-10); NRBC Flagged by Analyzer 0 % (0-5); Neutrophil # 6.12 X10^3/uL (2.7-7.7); Neutrophil % 65.7 % (47-70); Platelet Count 230 K/mm3 (150-450); RBC Distribution Width CV 15.2 % (11.6-14.6); RBC Distribution Width SD 56.8 fl (35.1-43.9); Red Blood Count 4.05 M/mm3 (4.2-5.4); White Blood Count 9.3 K/mm3 (4.4-11.0)
[2020-08-04] MEDS: 0.9% Normal Saline 1,000 ML 999 ML IV (15:24)
[2020-08-04] MEDS: Morphine 4 MG/ML Syringe IV (15:24)
[2020-08-04] MEDS: Ondansetron 4 MG/2 ML Vial IV (15:24)
[2020-08-04 15:44] LABS: Anion Gap 4 (5-15); BUN 8 mg/dL (7-18); BUN/Creat Ratio 9.7 RATIO (10-20); Chloride 106 mmol/L (98-107); Creatinine, Serum 0.83 mg/dL (0.55-1.02); EST Glomerular Filtration Rate 74 mL/min (>60); Est Glom Filt Rate - Afr Amer 90 mL/min (>60); Estimated Creatinine Clearance 55.36 ml/min; Glucose 94 mg/dL (74-106); Lipase 516 U/L (73-393); Potassium 3.4 mmol/L (3.5-5.1); Sodium Level 139 mmol/L (136-145)
[2020-08-04 15:46] LABS: Lactic Acid 0.9 mmol/L (0.4-1.9)
[2020-08-04 16:24] LABS: Bacteria 0 SEEN /hpf (None Seen); Mucous, Urine 0 SEEN /hpf (<or=2+); Red Blood Cells-Urine 0 SEEN /hpf (0-5)
[2020-08-04 16:34] VITALS: BP 149/79
[2020-08-04] MEDS: HYDROmorphone 0.5 MG/0.5 ML SYRINGE IV (16:40)
[2020-08-04 16:41] VITALS: BP 149/79; PULSE 84; RESP 18; TEMP 36.9; O2SAT 94
[2020-08-04 16:44] LABS: Color, Urine Yellow (Yellow); Glucose, Dipstick Normal (Normal); Ketone-Dipstick Negative (Negative); Leukocyte Esterase-Dipstick 100 /ul (Negative); Nitrite-Dipstick Negative (Negative); Occult Blood-Urine Negative /ul (Negative); Protein-Dipstick Negative (Negative); Specific Gravity, Urine 1.005 (1.002-1.030); Urine Bilirubin Dipstick Negative (Negative); Urine Clarity Clear (Clear); Urine Urobilinogen Normal (Normal)
[2020-08-04 16:50] LABS: Squamous Epithelial Cells - UA 0-5 SEEN /hpf (5-10); White Blood Cells 0-5 SEEN /hpf (0-5)
[2020-08-04 16:56] LABS: AST(SGOT) 46 U/L (15-37); Alanine Aminotransfer ALT/SGPT 57 U/L (13-56); Albumin, Serum 3.8 g/dL (3.2-5.0); Alkaline Phosphatase 96 U/L (45-117); Bilirubin, Direct 0.14 mg/dL (0.00-0.30); Globulin 3.4 g/dL (2.2-4.2); Protein, Total 7.2 g/dL (6.4-8.2)
--- NOTE | 2020-08-04 17:03 | ED.DCSUM_ITS ---
History of Present Illness Chief Complaint: Abd Pain Informant: Patient - Abdominal Pain/Flank Pain Onset: Yesterday Context: Gradual Onset Timing: Continuous Narrative: Patient is a 64-year-old female with new diagnosis of pancreatic mass presenting with worsening epigastric abdominal pain. Patient had an ERCP with pancreatic duct stent placed 2 days ago. She states since then she has had worsening pain in her epigastric region. It radiates to her back. She is unable to eat or drink anything because of pain. She has had nausea. States he has been passing gas but has not had a bowel movement. Patient was instructed to come to the ER tomorrow but could not arrange transportation so she came today. She states of movement also makes the pain worse and if she stands up and hunches over that helps her feel better. She never had any like this before. She denies any other complaints at this time. Past Medical History - Allergies and Home Meds Allergies/Adverse Reactions: Allergies acetaminophen [From Darvocet-N 100] Allergy (Verified 08/04/20 14:54) Hives codeine Allergy (Verified 08/04/20 14:54) Hives oxaprozin [From Daypro] Allergy (Verified 08/04/20 14:54) Hives oxybutynin Allergy (Verified 08/04/20 14:54) Unknown pentazocine lactate [From Talwin] Allergy (Verified 08/04/20 14:54) Itching propoxyphene HCl [From Darvon] Allergy (Verified 08/04/20 14:54) Hives propoxyphene napsylate [From Darvocet-N 100] Allergy (Verified 08/04/20 14:54) Hives rofecoxib [From Vioxx] Allergy (Verified 08/04/20 14:54) Rash tramadol HCl [From Ultram] Allergy (Verified 08/04/20 14:54) Upset Stomach cyclobenzaprine HCl [From Flexeril] Adverse Reaction (Verified 08/04/20 14:54) Upset Stomach venlafaxine HCl [From Effexor] Adverse Reaction (Verified 08/04/20 14:54) Upset Stomach PINE Allergy (Uncoded 08/04/20 14:54) Hives Primary Care Physician: Rodney Pool MD [Primary Care Provider] - Past Medical History: - - pancreatic mass Surgical History: cholecystectomy Lives: Alone Smoking Status: Former smoker - Family History Paternal Family History: Reports: Heart Disease Review of Systems General: Denies: Chills, Fever, Sweats Eyes: Denies: Visual changes - bilaterally, Diplopia ENT: Denies: Rhinorrhea, Sore throat Cardiovascular: Denies: Chest pain, Palpitations Respiratory: Denies: Dyspnea, Cough, Dyspnea on exertion Gastrointestinal: Reports: Abdominal pain, Nausea. Denies: Vomiting, Diarrhea, Melena, Hematochezia Genitourinary: Denies: Dysuria, Hematuria, Frequency Musculoskeletal: Denies: Back pain, Extremity Pain Skin: Denies: Rash, Wounds Neurological: Denies: Headache, Weakness, Numbness Physical Exam Vital Signs/Narrative: Vital Signs Temp Pulse Resp BP Pulse Ox 08/04/20 16:41 98.4 F 84 18 149/79 H 94 08/04/20 16:34 149/79 H 08/04/20 14:52 97.2 F L 76 18 134/72 H 98 Inital Vital Signs reviewed: Yes General: Well nourished, Well developed, No Acute Distress, - - thin Head: Normocephalic, Atraumatic Eyes: Perrl, EOMI ENT: Moist mucous membranes, No rhinorrhea Neck: Supple, Nontender Cardiovascular: Regular rate, Regular rhythm, No murmurs Respiratory: No distress, CTA bilaterally, Chest nontender Abdomen: Soft, Nondistended, Normal bowel sounds, Tender - epigastric , Guarding. Negative for: Rebound tenderness, Mass Back: Nontender, Normal Inspection Extremities: Nontender, No edema Skin: Normal color, No rash Neurological: Alert, Oriented x3, Cranial nerves II-XII grossly intact, Normal Strength, Normal Sensation Psychological: Normal affect, Normal Mood Diagnostic/Tx/Re-eval Clinical Impression(s) from Imaging Studies Abdomen/Pelvis CT 08/04/20 15:18 IMPRESSION: A biliary stent is seen traversing the uncinate process of the pancreas. As it is unclear if this stent communicates with the common bile duct, it could be within an accessory pancreatic duct (duct of Santorini). No intrahepatic biliary ductal dilatation. The common bile duct is mildly dilated measuring 9 mm consistent with reservoir effect. Significant amount of free air seen in the right pararenal space and surrounding the second portion of the duodenum/pancreatic head/uncinate process, likely postsurgical. Redemonstration of multifocal wall thickening of the descending and sigmoid colon. Differential considerations include neoplasm and/or nonspecific colitis. Follow-up endoscopy is again recommended. Electronically Signed: Jm Elizondo MD at 18:38 EDT Tel , Service support , Laboratory Data 08/04/20 08/04/20 08/04/20 15:10 15:10 15:10 WBC 9.3 RBC 4.05 L Hgb 12.8 Hct 40.8 MCV 100.7 H MCH 31.6 MCHC 31.4 L RDW Std Deviation 56.8 H RDW Coeff of Fidelina 15.2 H Plt Count 230 MPV 9.7 Immature Gran % (Auto) 0.300 Neut % (Auto) 65.7 Lymph % (Auto) 27.9 Saunders % (Auto) 5.6 Eos % (Auto) 0.3 Baso % (Auto) 0.2 Absolute Neuts (auto) 6.1 Absolute Lymphs (auto) 2.60 Nucleated RBC % 0 Sodium 139 Potassium 3.4 L Chloride 106 Carbon Dioxide 29.0 Anion Gap 4 L BUN 8 Creatinine 0.83 Estim Creat Clear Calc 55.36 Est GFR (MDRD) Af Amer 90 Est GFR (MDRD) Non-Af 74 BUN/Creatinine Ratio 9.7 L Glucose 94 Lactic Acid 0.9 Calcium 9.0 Total Bilirubin Direct Bilirubin AST ALT Alkaline Phosphatase Troponin I < 0.015 Total Protein Albumin Globulin Lipase 516 H Urine Color Urine Clarity Urine pH Ur Specific [place] Urine Protein Urine Glucose (UA) Urine Ketones Urine Occult Blood Urine Nitrite Urine Bilirubin Urine Urobilinogen Ur Leukocyte Esterase Urine RBC Urine WBC Ur Squamous Epith Cells Urine Bacteria Urine Mucus 08/04/20 08/04/20 15:10 16:18 WBC RBC Hgb Hct MCV MCH MCHC RDW Std Deviation RDW Coeff of Fidelina Plt Count MPV Immature Gran % (Auto) Neut % (Auto) Lymph % (Auto) Saunders % (Auto) Eos % (Auto) Baso % (Auto) Absolute Neuts (auto) Absolute Lymphs (auto) Nucleated RBC % Sodium Potassium Chloride Carbon Dioxide Anion Gap BUN Creatinine Estim Creat Clear Calc Est GFR (MDRD) Af Amer Est GFR (MDRD) Non-Af BUN/Creatinine Ratio Glucose Lactic Acid Calcium Total Bilirubin 0.40 Direct Bilirubin 0.14 AST 46 H ALT 57 H Alkaline Phosphatase 96 Troponin I Total Protein 7.2 Albumin 3.8 Globulin 3.4 Lipase Urine Color Yellow Urine Clarity Clear Urine pH 7.0 Ur Specific [place] 1.005 Urine Protein Negative Urine Glucose (UA) Normal Urine Ketones Negative Urine Occult Blood Negative Urine Nitrite Negative Urine Bilirubin Negative Urine Urobilinogen Normal Ur Leukocyte Esterase 100 H Urine RBC 0 SEEN Urine WBC 0-5 SEEN Ur Squamous Epith Cells 0-5 SEEN Urine Bacteria 0 SEEN Urine Mucus 0 SEEN - Medical Decision Making Patient evaluated for 2 days of worsening epigastric pain. She had a pancreatic stent placed 2 days ago for mass. This was done at [facility] with . He is contacted who recommend CT with p.o. and IV contrast, n.p.o. and IV fluids. He called back again and I informed him that the patient's lipase is elevated. Given this he feels that she will require admission to [facility]. Patient is accepted to Dr. Esparza service. Patient is given for morphine and then a 0.5 of Dilaudid. On reevaluation she has improvement of her symptoms. She is given IV fluids as well as Zofran. Patient is agreeable this plan of care. CT shows a biliary stent transversing the uncinate process of the pancreas. Is unclear if it communicates with the common bile duct. Common bile duct is mildly dilated measuring 9 mm consistent with reservoir effect. Significant free air seen in the right pararenal space and surrounding the second portion of the duodenum/pancreatic head/uncinate process, likely postsurgical. ED Disposition - Plan for ED Patient: Disposition: [facility] Diagnosis: Pancreatitis Referrals: Rodney Pool MD [Primary Care Provider] -
[2020-08-04] MEDS: 0.9% Normal Saline 1,000 ML 150 ML IV (17:10)
--- NOTE | 2020-08-04 17:39 | NURSING ---
1710 CALLED [facility] TUCKER TALKED TO VIDYA. DR PALM ACCEPTED PATIENT. WAITING ON ROOM
[2020-08-04 19:00] VITALS: BP 156/86; PULSE 78; RESP 16; TEMP 36.9; O2SAT 94
== END 2020-08-04 19:17 | disposition short-term general hospital (02) ==
LOC: ED 15:38
PROVIDERS: Emergency Provider Emergency Medicine; PCP Family Medicine
DX: K85.90 Acute pancreatitis without necrosis or infection, unspecified (principal); Z90.49 Acquired absence of other specified parts of digestive tract; Z87.891 Personal history of nicotine dependence
CPT/HCPCS: 74177; 80048; 80076; 81001; 83605; 83690; 84484; 85025; 93005; 96361; 96374; 96375; 99285; J7030; Q9967; A4216; J2405

== ENCOUNTER 2021-07-24 08:53 | Emergency (ER) | payer MEDICAID, SELFPAY ==
[2021-07-24 08:54] VITALS: BP 125/64; PULSE 125; RESP 16; TEMP 36.4; O2SAT 95; BMI 22.3
--- NOTE | 2021-07-24 09:13 | EKG12_ITS ---
Test Reason : ABD PAIN Blood Pressure : / mmHG Vent. Rate : 113 BPM Atrial Rate : 113 BPM P-R Int : 168 ms QRS Dur : 080 ms QT Int : 338 ms P-R-T Axes : 061 034 077 degrees QTc Int : 463 ms Sinus tachycardia Septal infarct (cited on or before 20-FEB-2013) Abnormal ECG Confirmed by SANJUANITA KAISER, RUT ([id number]), associate editor JEFF ZELAYA ([id number]) on 07/26/2021 11:38:22 AM Referred By: ISABELLE Confirmed By:RUT GANN MD
--- NOTE | 2021-07-24 09:14 | CT_ITS ---
STUDY: CT CERVICAL SPINE WITHOUT CONTRAST REASON FOR EXAM: Female, 65 years old. Trauma RADIATION DOSAGE (If Supplied By Facility): CTDIvol = ( 16 ) mGy, DLP = ( 232.32 ) mGycm TECHNIQUE: High resolution transaxial imaging was performed without contrast material. Sagittal and coronal images were reconstructed. Individualized dose optimization techniques were used for this CT. COMPARISON: None available. FINDINGS: There is no evidence of fracture or dislocation in the cervical spine. The dens is intact. Alignment is normal. The vertebral body heights are well-maintained. There is bony fusion of the C3 and C4 vertebral bodies. The visualized paraspinal soft tissues are within normal limits. CT/Spine Cervical without Contras IMPRESSION: No fracture or dislocation in the cervical spine. Bony fusion of C3 and C4 vertebral bodies. Electronically Signed: Jameel Burton MD at 11:58 EDT ,
--- NOTE | 2021-07-24 09:14 | CT_ITS ---
STUDY: CT BRAIN WITHOUT CONTRAST REASON FOR EXAM: Female, 65 years old. Trauma RADIATION DOSAGE (If Supplied By Facility): CTDIvol = ( 47.06 ) mGy, DLP = ( 855.03 ) mGycm TECHNIQUE: Transaxial CT imaging of the brain was performed without administration of intravenous contrast material. Individualized dose optimization techniques were used for this CT. COMPARISON: 05/06/17 FINDINGS: The study is limited by streak artifact from the patient''s right cochlear implant. There is no acute bleed or infarct. There are normal white matter tracts. The ventricles are normal in configuration. There is no hydrocephalus. The visualized paranasal sinuses are clear. The mastoid air cells are well aerated. There is no skull fracture. CT/Brain/Head without Contrast IMPRESSION: Study limited by streak artifact from the patient''s right cochlear implant. No acute intracranial abnormality. Electronically Signed: Jameel Burton MD at 11:43 EDT ,
--- NOTE | 2021-07-24 09:14 | CT_ITS ---
STUDY: CT CHEST WITH CONTRAST REASON FOR EXAM: Female, 65 years old. Trauma RADIATION DOSAGE (If Supplied By Facility): CTDIvol = ( 12.53 ) mGy, DLP = ( 1087.35 ) mGycm TECHNIQUE: Transaxial imaging was performed following intravenous administration of 100 ml of ISOVUE-300 contrast material. Coronal and sagittal reformatted images were created. Individualized dose optimization techniques were used for this CT. COMPARISON: 08/28/17 FINDINGS: The study is limited by patient motion and by streak artifact due to the patient''s arms being at her sides. There are stable mild emphysematous changes. There are no pulmonary infiltrates or pleural effusions. There is no pneumothorax. The heart and pericardium are within normal limits. There is no thoracic lymphadenopathy. There is no evidence of thoracic aortic aneurysm. Please see the report for the CT of the abdomen and pelvis which is dictated separately. The visualized thoracic osseous structures are intact. CT/Chest WITH Contrast IMPRESSION: No acute thoracic pathology. Electronically Signed: Jameel Burton MD at 12:07 EDT ,
--- NOTE | 2021-07-24 09:14 | CT_ITS ---
We are attempting to reach an attending provider to discuss findings. An addendum with communication details will be sent when the communication is complete. STUDY: CT ABDOMEN AND PELVIS WITH CONTRAST REASON FOR EXAM: Female, 65 years old. Trauma RADIATION DOSAGE (If Supplied By Facility): CTDIvol = ( 12.53 ) mGy, DLP = ( 1087.35 ) mGycm TECHNIQUE: Transaxial images were obtained from the dome of the diaphragm to the symphysis pubis without oral contrast. 100 ml of ISOVUE-300 contrast was administered. Sagittal and coronal images were reconstructed. Individualized dose optimization techniques were used for this CT. COMPARISON: 08/04/20 FINDINGS: The visualized lung bases are clear. The visualized portions of the heart and pericardium are within normal limits. The patient is status post cholecystectomy. The liver is within normal limits. There are no suspicious hepatic lesions. The spleen is normal in size. The pancreas is within normal limits. The adrenal glands are within normal limits. There are no renal or ureteral stones. There is no hydronephrosis. There are no focal renal lesions. Normal visualized stomach. There is no bowel obstruction or inflammation. The appendix is not visualized, but there are no findings to suggest acute appendicitis. The aorta is normal in caliber. There are atherosclerotic calcifications noted in the aorta and its branches. There is no abdominal or pelvic free air, free fluid, fluid collection or lymphadenopathy. There is a moderate compression fracture of the L1 vertebral body (approximately 40% loss of height anteriorly). There is no fracture fragment retropulsion or canal stenosis. There is no additional acute fracture or dislocation. There are stable postsurgical changes from a prior L5 laminectomy. CT/Abdomen/Pelvis WITH Contrast IMPRESSION: Moderate compression fracture of L1. No fracture fragment retropulsion or canal stenosis. No additional acute traumatic findings in the abdomen or pelvis. Electronically Signed: Jameel Burton MD at 11:50 EDT ,
--- NOTE | 2021-07-24 09:19 | EDS_ITS ---
HPI HPI - Fall History of Present Illness Chief Complaint: Fall Narrative Narrative: 65-year-old female presenting with back pain and epigastric pain. Patient states that she has chronic recurrent pancreatitis which started about a year ago. She states he saw a Dr. Esparza in [place] and had pancreatic stents placed. She states that her epigastric pain is similar to what it has been in the past. She was supposed to have a CT scan done of her pancreas to reevaluate this today, but states that when she tried to call her physician she was sent to the emergency room. Patient relates that she had a fall from 18 feet about 5 days ago on . Patient states she was on an extension ladder which fell and she is not sure how she landed or if she lost consciousness but states that she was able to crawl back to her house. She does not have any neck pain. She does not have a headache. No visual complaints or blurring. She states she does have a lump on the back of her head. Today she is able to ambulate. She complains of the back pain which is worse today. No paresthesias. She was able to ambulate with her baseline wheeled walker. Patient is not on blood thinners. Patient has no pain in her extremities. She is not anticoagulated. [facility] Medical History Abnormal findings on diagnostic imaging of liver and biliary tract Abnormal weight loss Anxiety Bulimia Calculus of gallbladder without cholecystitis without obstruction Cochlear implant in place DDD (degenerative disc disease), cervical Hepatitis C Idiopathic chronic pancreatitis Latent tuberculosis Migraines Osteoporosis Pancreatic duct stricture Personality disorder Rheumatoid arthritis Severe protein-calorie malnutrition Steatorrhea, pancreatic TIA (transient ischemic attack) Home Medications alprazolam [Xanax] 1 mg PO BID 12/16/13 [History Last Taken 12/04/17 22:00 1 MG] quetiapine 200 mg PO QHS 12/16/13 [History Last Taken 12/04/17 22:00] sodium chloride 1 g PO TID 12/16/13 [History Last Taken 12/04/17 22:00 1 GM] rizatriptan 10 mg PO PRN PRN 05/06/17 [History Last Taken 12/04/17 22:00 10 MG] polyethylene glycol 3350 17 g PO DAILY #1 packet 12/08/17 [Rx Last Taken Unknown] Ropinirole Hcl [Requip] 1 tab PO QHS 07/23/18 [History Last Taken Unknown] apremilast 30 mg PO DAILY 08/04/20 [History Last Taken Unknown] atorvastatin 20 mg PO QHS 08/04/20 [History Last Taken Unknown] calcium carbonate-vitamin D3 1 tablet PO DAILY 08/04/20 [History Last Taken Unknown] dicyclomine 10 mg PO 4X/DAY PRN 08/04/20 [History Last Taken Unknown] food supplemt, lactose-reduced 237 ml PO TIDCM 08/04/20 [History Last Taken Unknown] yltsim-ineftgrx-eyiiugo 2 capsule PO ACHS 08/04/20 [History Last Taken Unknown] magnesium oxide 400 mg PO DAILY 08/04/20 [History Last Taken Unknown] omega-3 fatty acids 2 tablet PO DAILY 08/04/20 [History Last Taken Unknown] omeprazole 40 mg PO DAILY 08/04/20 [History Last Taken Unknown] potassium chloride 8 meq PO BREAKFAST 08/04/20 [History Last Taken Unknown] psyllium husk 0.52 gm PO DAILY 08/04/20 [History Last Taken Unknown] tizanidine 4 mg PO TID PRN 08/04/20 [History Last Taken Unknown] topiramate 25 mg tablet 25 mg PO DAILY 07/17/21 [History Last Taken Unknown] lidocaine [Lidoderm] 1 patch TOPICAL DAILY PRN #15 ea 07/24/21 [Rx Last Taken Unknown] oxycodone-acetaminophen [Endocet] 1 tab PO Q6H PRN 3 Days #12 tab 07/24/21 [Rx Last Taken Unknown] Allergy/AdvReac Type Severity Reaction Status Date / Time acetaminophen Allergy Hives Verified 07/24/21 08:59 [From Darvocet-N 100] codeine Allergy Hives Verified 07/24/21 08:59 oxaprozin [From Daypro] Allergy Hives Verified 07/24/21 08:59 oxybutynin Allergy Unknown Verified 07/24/21 08:59 pentazocine lactate Allergy Itching Verified 07/24/21 08:59 [From Talwin] propoxyphene HCl Allergy Hives Verified 07/24/21 08:59 [From Darvon] propoxyphene napsylate Allergy Hives Verified 07/24/21 08:59 [From Darvocet-N 100] rofecoxib [From Vioxx] Allergy Rash Verified 07/24/21 08:59 tramadol HCl [From Ultram] Allergy Upset Verified 07/24/21 08:59 Stomach cyclobenzaprine HCl AdvReac Upset Verified 07/24/21 08:59 [From Flexeril] Stomach venlafaxine HCl AdvReac Upset Verified 07/24/21 08:59 [From Effexor] Stomach PINE Allergy Hives Uncoded 07/24/21 08:59 Family History Mother CVA (cerebral vascular accident) Hypertension Father Cancer Diabetes Sister Thyroid disorder Surgical History H/O section History of bladder surgery History of cochlear implant History of tracheostomy Hx of cholecystectomy Social History Smoking Status: Former smoker quit date: 06/02/17 pack-years: 30 alcohol intake: never ROS ROS ED Constitutional Constitutional ED: Denies chills or fever(s) Eyes Eyes: Denies blurry vision or change in vision ENT ENT ED: Denies rhinorrhea or sore throat Cardiovascular Cardiovascular: Denies chest pain or palpitations Respiratory/Chest Respiratory/Chest: Denies cough, dyspnea or sputum Gastrointestinal Gastrointestinal: Reports abdominal pain and nausea; Denies diarrhea or vomiting Genitourinary Genitourinary ED: Denies dysuria or hematuria Musculoskeletal Musculoskeletal: Reports back pain Integumentary Denies rash Neurologic Neurologic: Denies headache(s) or weakness Psychiatric Psychiatric: Denies anxiety or depression Endocrine Endocrinology: Denies polydipsia or polyuria EXAM Physical Exam Const Vital Signs: 07/24/21 08:54 07/24/21 09:13 07/24/21 12:15 Temperature 97.5 F L Temperature Source Temporal Pulse Rate 125 H 92 Respiratory Rate 16 16 Respiratory Effort Normal Non-Labored Respiratory Depth Normal Respiratory Pattern Normal Blood Pressure 125/64 H 129/92 H Blood Pressure Mean 84 104 Pulse Ox 95 96 Oxygen Delivery Method Room Air Room Air Room Air 07/24/21 13:02 Temperature Temperature Source Pulse Rate 78 Respiratory Rate 16 Respiratory Effort Respiratory Depth Respiratory Pattern Blood Pressure 144/33 H Blood Pressure Mean Pulse Ox 97 Oxygen Delivery Method Positive well nourished General Appearance ED: NAD HEENT Reports normocephalic HEENT Narrative: Small cephalhematoma at the vertex of the scalp. Face and Sinus: normal facial exam External Ear: external ears normal Tympanic Membrane ED: Yes TM normal on the right and TM normal on the left Mouth ED: Yes oral and palatal mucosa normal and Yes moist mucous membranes normal Mouth: oral and palatal mucosa normal Throat: posterior oropharynx normal and tonsils normal Eyes PERRL and EOMs intact bilaterally Neck full ROM Chest Wall inspection of chest normal and palpation of chest normal Chest Narrative: Equal symmetric breath sounds and chest wall rise. Resp normal respiratory effort and clear to auscultation bilaterally Cardio regular rhythm Rate: tachycardic GI GI Narrative: Epigastric tenderness Palpation: soft and guarding Back/Spine Lumbar Spine / Lower Back: lumbar spinal tenderness L3, L4 and L5 Neuro oriented x3, CN's II-XII intact bilaterally, moves all extremities, no focal motor deficits and no sensory deficits noted Sensorium / Orientation: alert Psych mental status grossly normal and thought process normal Skin Lesions: no lesions Rashes: no rashes MDM MDM MDM Narrative Medical decision making narrative: 64-year-old female presenting with back pain after falling off of a ladder. She states he did hit her head. He is unsure if he lost consciousness. She was able to crawl from the site where she fell and get into the house. She reports that she was able to walk today but has been in a lot of pain since the fall. She has 5-5 lower extremity strength. Sensation is intact. She has a small cephalhematoma. Patient alert and awake. She is complaining of the pain rating around her left side up under her rib cage and she stating she has chronic pancreatitis and has stents. Currently she is going to follow-up with Dr. Fu for stent assessment. I did check an EKG given the location of her pain and her potation this is a sinus rhythm with a ventricular 113 bpm. Patient given a liter of IV fluids and fentanyl for pain. Her heart rate did come down to 78. Her pain was controlled with the fentanyl. Obtain lab work and her CBC is within normal limits. BMP shows slight hypokalemia at 3.2 otherwise is normal. LFTs are within normal limits. Lipase within normal limits. Urine drug screen positive for benzodiazepine which she is prescribed. EtOH negative. PT/INR within normal limits. CT of the brain and cervical spine are negative for acute pathology. CT chest abdomen pelvis was ordered due to the location of her pain and the elevation of which she fell. The only acute finding on the CT of the chest/abdomen/pelvis is an L1 compression fracture with loss of height about 40%. Given that she fell on and the only injury found was an orthopedic spine injury which can be followed up outpatient I spoke with Dr. Guzman. He agreed and stated he can get her in either Saturday or Saturday to have her assessed. She does not want to stay in the hospital. She is ambulatory. No red flag signs or symptoms. Patient will be scribed Percocet which she is tolerated in the past. She is given Lidoderm patches as well. Her sister will pick her up. Patient discharged in stable condition. Impression: 1. Fall 2. Closed head injury 3. Left rib pain 4. Left-sided abdominal pain 5. L1 compression fracture Lab Data Labs: Laboratory Results - last 24 hr 07/24/21 07/24/21 07/24/21 10:16 10:16 10:16 WBC 7.1 RBC 4.43 Hgb 14.4 Hct 42.3 MCV 95.5 MCH 32.5 H MCHC 34.0 RDW Std Deviation 50.5 H RDW Coeff of Fidelina 14.5 Plt Count 172 MPV 10.2 Immature Gran % (Auto) 0.400 Neut % (Auto) 68.9 Lymph % (Auto) 23.0 Osborne % (Auto) 7.3 Eos % (Auto) 0.1 Baso % (Auto) 0.3 Absolute Neuts (auto) 4.9 Absolute Lymphs (auto) 1.63 Nucleated RBC % 0 PT 12.6 INR 1.0 Sodium 135 L Potassium 3.2 L Chloride 103 Carbon Dioxide 27.0 Anion Gap 5 BUN 12 Creatinine 0.79 Estim Creat Clear Calc 62.94 Est GFR (MDRD) Af Amer 94 Est GFR (MDRD) Non-Af 78 BUN/Creatinine Ratio 15.2 Glucose 114 H Calcium 9.5 Total Bilirubin 0.40 Direct Bilirubin 0.12 AST 25 ALT 22 Alkaline Phosphatase 78 Total Protein 7.7 Albumin 3.9 Globulin 3.8 Lipase 145 Urine Color Urine Clarity Urine pH Ur Specific [place] Urine Protein Urine Glucose (UA) Urine Ketones Urine Occult Blood Urine Nitrite Urine Bilirubin Urine Urobilinogen Ur Leukocyte Esterase Urine RBC Urine WBC Ur Squamous Epith Cells Urine Bacteria Urine Mucus Urine Opiates Screen Urine Methadone Screen Ur Barbiturates Screen Ur Phencyclidine Scrn Ur Amphetamines Screen MDMA (Ecstasy) Screen U Benzodiazepines Scrn Urine Cocaine Screen U Cannabinoids Screen Ur Drug Screen Comment Ethyl Alcohol Blood Type Antibody Screen 07/24/21 07/24/21 07/24/21 10:16 10:16 10:30 WBC RBC Hgb Hct MCV MCH MCHC RDW Std Deviation RDW Coeff of Fidelina Plt Count MPV Immature Gran % (Auto) Neut % (Auto) Lymph % (Auto) Osborne % (Auto) Eos % (Auto) Baso % (Auto) Absolute Neuts (auto) Absolute Lymphs (auto) Nucleated RBC % PT INR Sodium Potassium Chloride Carbon Dioxide Anion Gap BUN Creatinine Estim Creat Clear Calc Est GFR (MDRD) Af Amer Est GFR (MDRD) Non-Af BUN/Creatinine Ratio Glucose Calcium Total Bilirubin Direct Bilirubin AST ALT Alkaline Phosphatase Total Protein Albumin Globulin Lipase Urine Color Urine Clarity Urine pH Ur Specific [place] Urine Protein Urine Glucose (UA) Urine Ketones Urine Occult Blood Urine Nitrite Urine Bilirubin Urine Urobilinogen Ur Leukocyte Esterase Urine RBC Urine WBC Ur Squamous Epith Cells Urine Bacteria Urine Mucus Urine Opiates Screen NEGATIVE Urine Methadone Screen NEGATIVE Ur Barbiturates Screen NEGATIVE Ur Phencyclidine Scrn NEGATIVE Ur Amphetamines Screen NEGATIVE MDMA (Ecstasy) Screen NEGATIVE U Benzodiazepines Scrn POSITIVE H Urine Cocaine Screen NEGATIVE U Cannabinoids Screen POSITIVE H Ur Drug Screen Comment Ethyl Alcohol < 3.0 Blood Type A POSITIVE Antibody Screen NEGATIVE 07/24/21 10:30 WBC RBC Hgb Hct MCV MCH MCHC RDW Std Deviation RDW Coeff of Fidelina Plt Count MPV Immature Gran % (Auto) Neut % (Auto) Lymph % (Auto) Osborne % (Auto) Eos % (Auto) Baso % (Auto) Absolute Neuts (auto) Absolute Lymphs (auto) Nucleated RBC % PT INR Sodium Potassium Chloride Carbon Dioxide Anion Gap BUN Creatinine Estim Creat Clear Calc Est GFR (MDRD) Af Amer Est GFR (MDRD) Non-Af BUN/Creatinine Ratio Glucose Calcium Total Bilirubin Direct Bilirubin AST ALT Alkaline Phosphatase Total Protein Albumin Globulin Lipase Urine Color Yellow Urine Clarity Sl. Cloudy Urine pH 5.0 Ur Specific [place] 1.025 Urine Protein 30 H Urine Glucose (UA) Normal Urine Ketones 5 H Urine Occult Blood 10 H Urine Nitrite Negative Urine Bilirubin 1 H Urine Urobilinogen 1 H Ur Leukocyte Esterase 500 H Urine RBC 0-5 SEEN Urine WBC 25-50 SEEN Ur Squamous Epith Cells 0 SEEN Urine Bacteria 1+ Urine Mucus 2+ Urine Opiates Screen Urine Methadone Screen Ur Barbiturates Screen Ur Phencyclidine Scrn Ur Amphetamines Screen MDMA (Ecstasy) Screen U Benzodiazepines Scrn Urine Cocaine Screen U Cannabinoids Screen Ur Drug Screen Comment Ethyl Alcohol Blood Type Antibody Screen Radiography Diagnostic Testing: Clinical Impression(s) from Imaging Studies Abdomen/Pelvis CT 07/24/21 09:14 IMPRESSION: Moderate compression fracture of L1. No fracture fragment retropulsion or canal stenosis. No additional acute traumatic findings in the abdomen or pelvis. Electronically Signed: Jameel Burton MD at 11:50 EDT , ADDENDUM: 07/24/21 1231 IMPRESSION: Moderate compression fracture of L1. No fracture fragment retropulsion or canal stenosis. No additional acute traumatic findings in the abdomen or pelvis. N.B. : The above Results were Read Back by Jameel Burton MD to Thomas Sylvester DO, and understanding confirmed on 07/24/2021 12:24:12 (ET). Electronically Signed: Jameel Burton MD at 11:50 EDT , Brain CT 07/24/21 09:14 IMPRESSION: Study limited by streak artifact from the patient''s right cochlear implant. No acute intracranial abnormality. Electronically Signed: Jameel Burton MD at 11:43 EDT , Cervical Spine CT 07/24/21 09:14 IMPRESSION: No fracture or dislocation in the cervical spine. Bony fusion of C3 and C4 vertebral bodies. Electronically Signed: Jameel Burton MD at 11:58 EDT , Chest CT 07/24/21 09:14 IMPRESSION: No acute thoracic pathology. Electronically Signed: Jameel Burton MD at 12:07 EDT , Discharge Plan Triage Chief Complaint: Fall ED Provider: Thomas Sylvester Dx/Rx/DC Orders Instructions: ED Fracture, Vertebral Compression, ED Head Injury (Adult) Prescriptions: New oxycodone-acetaminophen [Endocet] 5-325 mg tablet 1 tab PO Q6H PRN (Reason: pain) 3 Days Qty: 12 RF: 0 lidocaine [Lidoderm] 5 % adhesive patch,medicated 1 patch topical DAILY PRN (Reason: pain) Qty: 15 RF: 0 No Action topiramate 25 mg tablet 25 mg PO DAILY RF: 0 sodium chloride 1 GM tablet 1 g PO TID RF: 0 alprazolam [Xanax] 1 MG tablet 1 mg PO BID RF: 0 quetiapine 100 MG tablet 200 mg PO QHS RF: 0 rizatriptan 10 tablet 10 mg PO PRN PRN (Reason: Headache) RF: 0 polyethylene glycol 3350 17 GM powder in packet 17 g PO DAILY Qty: 1 RF: 0 Ropinirole Hcl [Requip] 1 MG tablet 1 tab PO QHS RF: 0 atorvastatin 20 MG tablet 20 mg PO QHS RF: 0 potassium chloride 8 MEQ capsule, extended release 8 meq PO BREAKFAST RF: 0 omega-3 fatty acids 1,000 MG capsule 2 tablet PO DAILY RF: 0 tizanidine 4 MG tablet 4 mg PO TID PRN (Reason: muscle spasms) RF: 0 omeprazole 40 MG capsule,delayed release(DR/EC) 40 mg PO DAILY RF: 0 magnesium oxide 400 MG tablet 400 mg PO DAILY RF: 0 dicyclomine 10 MG capsule 10 mg PO 4X/DAY PRN (Reason: abdominal pain) RF: 0 food supplemt, lactose-reduced 237 ML liquid 237 ml PO TIDCM RF: 0 psyllium husk 0.52 GM capsule 0.52 gm PO DAILY RF: 0 calcium carbonate-vitamin D3 1 EACH tablet 1 tablet PO DAILY RF: 0 eigvuy-gptcpytm-eqmdkpp 1 CAPSULE capsule 2 capsule PO ACHS RF: 0 apremilast 30 MG tablet 30 mg PO DAILY RF: 0 Primary Care Provider: Rodney Pool Referrals: Rodney Pool MD [Primary Care Provider] - Bari Guzman DO [STAFF PHYSICIAN] - As soon as possible Disposition Disposition: Home, Self Care
[2021-07-24 10:31] LABS: Absolute Lymphocyte Count 1.63 X10^3/uL (0.83-4.51); Absolute Neutrophil Count 4.9 X10^3/uL (2.0-7.7); Basophil# 0.02 X10^3/uL; Basophil% 0.3 % (0-1); Eosinophil# 0.01 X10^3/uL; Eosinophils% 0.1 % (0-5); Hematocrit 42.3 % (37-47); Hemoglobin 14.4 g/dL (12.0-15.0); Lymphocyte # 1.63 X10^3/ul (0.83-4.51); Mean Corpuscular Hgb 32.5 pg (27.0-32.0); Mean Corpuscular Volume 95.5 fL (81-99); Mean Platelet Vol. 10.2 fl (6.2-12.0); Monocyte# 0.52 X10^3/uL; Monocyte% 7.3 % (0-10); NRBC Flagged by Analyzer 0 % (0-5); Neutrophil # 4.89 X10^3/uL (2.7-7.7); Neutrophil % 68.9 % (47-70); Platelet Count 172 K/mm3 (150-450); RBC Distribution Width CV 14.5 % (11.6-14.6); RBC Distribution Width SD 50.5 fl (35.1-43.9); Red Blood Count 4.43 M/mm3 (4.2-5.4); White Blood Count 7.1 K/mm3 (4.4-11.0)
[2021-07-24] MEDS: Ondansetron 4 MG/2 ML Vial IV (10:32)
[2021-07-24] MEDS: fentaNYL 100 MCG/2 ML Ampul 25 MCG IV (10:32)
[2021-07-24] MEDS: 0.9% Normal Saline 1,000 ML 999 ML IV (10:33)
[2021-07-24 10:40] LABS: Prothrombin Time (Protime)PT. 12.6 SECONDS (11.7-14.9)
[2021-07-24 10:43] LABS: Squamous Epithelial Cells - UA 0 SEEN /hpf (5-10)
[2021-07-24 10:44] LABS: Color, Urine Yellow (Yellow); Glucose, Dipstick Normal (Normal); Ketone-Dipstick 5 mg/dl (Negative); Leukocyte Esterase-Dipstick 500 /ul (Negative); Nitrite-Dipstick Negative (Negative); Occult Blood-Urine 10 /ul (Negative); Protein-Dipstick 30 mg/dl (Negative); Specific Gravity, Urine 1.025 (1.002-1.030); Urine Clarity Sl. Cloudy (Clear); Urine Urobilinogen 1 mg/dl (Normal)
[2021-07-24 10:45] LABS: Urine Bilirubin Dipstick 1 mg/dL (Negative)
[2021-07-24 10:46] LABS: AST(SGOT) 25 U/L (15-37); Alanine Aminotransfer ALT/SGPT 22 U/L (13-56); Albumin, Serum 3.9 g/dL (3.2-5.0); Alkaline Phosphatase 78 U/L (45-117); Anion Gap 5 (5-15); BUN 12 mg/dL (7-18); BUN/Creat Ratio 15.2 RATIO (10-20); Bilirubin, Direct 0.12 mg/dL (0.00-0.30); Calcium,Total 9.5 mg/dL (8.5-10.1); Chloride 103 mmol/L (98-107); Creatinine, Serum 0.79 mg/dL (0.55-1.02); EST Glomerular Filtration Rate 78 mL/min (>60); Est Glom Filt Rate - Afr Amer 94 mL/min (>60); Estimated Creatinine Clearance 62.94 ml/min; Globulin 3.8 g/dL (2.2-4.2); Glucose 114 mg/dL (74-106); Lipase 145 U/L (73-393); Potassium 3.2 mmol/L (3.5-5.1); Protein, Total 7.7 g/dL (6.4-8.2); Sodium Level 135 mmol/L (136-145)
[2021-07-24 10:51] LABS: Bacteria 1+ /hpf (None Seen); Mucous, Urine 2+ /hpf (<or=2+); Red Blood Cells-Urine 0-5 SEEN /hpf (0-5); White Blood Cells 25-50 SEEN /hpf (0-5)
[2021-07-24 10:54] LABS: Amphetamine Urine VISTA NEGATIVE (<1000 ng/mL); Barbiturate Urine VISTA NEGATIVE (< 200 ng/mL); Benzodiazepine Urine VISTA POSITIVE (< 200 ng/mL); Cocaine Urine VISTA NEGATIVE (< 300 ng/mL); Ecstacy Urine VISTA NEGATIVE (< 500 ng/mL); Methadone Urine VISTA NEGATIVE (< 300 ng/mL); PCP Urine VISTA NEGATIVE (< 25 ng/mL); THC Urine VISTA POSITIVE (< 50 ng/mL); Vista UDS pH Range 5
[2021-07-24 11:10] LABS: Alcohol, Blood (Medical)-Serum < 3.0 mg/dL
[2021-07-24 12:15] VITALS: BP 129/92; PULSE 92; RESP 16; O2SAT 96
[2021-07-24] MEDS: oxyCODONE 5 MG Tablet PO (13:01)
[2021-07-24 13:02] VITALS: BP 144/33; PULSE 78; RESP 16; O2SAT 97
== END 2021-07-24 13:15 | disposition home or self-care (01) ==
PROVIDERS: Emergency Provider Student in an Organized Health Care Education/Training Program; PCP Family Medicine; Visit Provider Student in an Organized Health Care Education/Training Program
DX: S32.019A Unspecified fracture of first lumbar vertebra, initial encounter for closed fracture (principal); M06.9 Rheumatoid arthritis, unspecified; K86.1 Other chronic pancreatitis; F41.9 Anxiety disorder, unspecified; M81.0 Age-related osteoporosis without current pathological fracture; G43.909 Migraine, unspecified, not intractable, without status migrainosus; Z86.73 Personal history of transient ischemic attack (TIA), and cerebral infarction without residual deficits; Z87.19 Personal history of other diseases of the digestive system; Z79.899 Other long term (current) drug therapy; Z87.891 Personal history of nicotine dependence; W11.XXXA Fall on and from ladder, initial encounter; S00.03XA Contusion of scalp, initial encounter; Y93.9 Activity, unspecified; Y92.9 Unspecified place or not applicable; E87.6 Hypokalemia
CPT/HCPCS: 70450; 71260; 72125; 74177; 80048; 80076; 80307; 81001; 82077; 83690; 85025; 85610; 86850; 86900; 86901; 93005; 96361; 96374; 96375; 99284; J7030; Q9967; J2405

== ENCOUNTER 2021-08-11 09:01 | Day surgery (SDC) | payer MEDICAID, SELFPAY ==
[2021-08-11] VITALS (7 sets, daily range): BP systolic 132–152; BP diastolic 62–85; PULSE 72–85; RESP 14–16; TEMP 36.5–36.6; O2SAT 94–99; BMI 21.6
[2021-08-11] MEDS: Lactated Ringers 1,000 ML 15 ML IV (09:46)
--- NOTE | 2021-08-11 10:20 | RAD_ITS ---
STUDY: X-RAY - LUMBAR SPINE REASON FOR EXAM: Female, 65 years old. KYPHOPLASTY L1 TECHNIQUE: 7 intraoperative view(s) of the lumbar spine were obtained. COMPARISON: None FINDINGS: 7 limited intraoperative studies were performed as the patient has undergone kyphoplasty at L1. No intraoperative complications noted. Methacrylate cement noted within the body of L1 and no extravasation noted. RAD/Spine 1 View Any Level IMPRESSION: No intraoperative complications during L1 kyphoplasty Electronically Signed: Jose Del Valle MD at 16:23 EDT ,
[2021-08-11] MEDS: Cefazolin 2 GM in 0.9% Normal Saline 100 ML IV (10:35)
[2021-08-11] MEDS: 0.9% Normal Saline (Pres. free 10 ML Vial (11:00)
--- NOTE | 2021-08-11 14:01 | SUR.PHASEII ---
Per Dr Leach, will prescribe pt medication from office. pt still in pain at d/c time. Dr Leach aware. pt to use warm compress on back, and rest.
== END 2021-08-11 14:02 | disposition home or self-care (01) ==
LOC: SDC 09:01 → AC 09:02
PROVIDERS: PCP Family Medicine; Referring Provider Anesthesiology Pain Medicine; Visit Provider Anesthesiology Pain Medicine
PROC: (CPT 22514; principal; 2021-08-11 10:15)
DX: S32.010A Wedge compression fracture of first lumbar vertebra, initial encounter for closed fracture (principal); M06.9 Rheumatoid arthritis, unspecified; J44.9 Chronic obstructive pulmonary disease, unspecified; K86.1 Other chronic pancreatitis; F41.9 Anxiety disorder, unspecified; M19.90 Unspecified osteoarthritis, unspecified site; Z87.19 Personal history of other diseases of the digestive system; E78.00 Pure hypercholesterolemia, unspecified; M50.30 Other cervical disc degeneration, unspecified cervical region; G43.909 Migraine, unspecified, not intractable, without status migrainosus; M81.0 Age-related osteoporosis without current pathological fracture; Z86.73 Personal history of transient ischemic attack (TIA), and cerebral infarction without residual deficits; Z79.899 Other long term (current) drug therapy; W11.XXXA Fall on and from ladder, initial encounter; Z87.891 Personal history of nicotine dependence
CPT/HCPCS: 22514; 01942; 72020; 76000; 87426; J7120; J2405; J3490

== ENCOUNTER 2021-10-23 20:20 | Emergency (ER) | payer MEDICAID, SELFPAY ==
[2021-10-23 20:22] VITALS: BP 173/103; PULSE 98; RESP 15; TEMP 36.4; O2SAT 97; BMI 22.3
[2021-10-23 20:30] VITALS: BP 174/93; PULSE 89; RESP 18; O2SAT 97
--- NOTE | 2021-10-23 21:06 | EX.ED.DYSGE1 ---
HPI History of Present Illness Chief Complaint: Hypertension Narrative Narrative: 66-year-old female presenting with hypertension. She does not have any symptoms of headache, visual complaints, nausea, vomiting. No fever or chills. She states her blood pressures have been high all day. She was told to double her blood pressure medicine but does not know the name of it. She states she feels otherwise well. She states typically her blood pressures run low and she has to take a salt pill to keep it up. PFSH PFS Medical History Abnormal findings on diagnostic imaging of liver and biliary tract Abnormal weight loss Anemia Anxiety Arthritis Back pain Broken back Bulimia Calculus of gallbladder without cholecystitis without obstruction Cardiology follow-up encounter Cochlear implant in place COPD (chronic obstructive pulmonary disease) DDD (degenerative disc disease), cervical Former smoker Hepatitis C High cholesterol History of echocardiogram History of irregular heartbeat History of stress test Hx of fracture of nose Idiopathic chronic pancreatitis Injury of back Injury of head and neck Latent tuberculosis Leg cramps Migraine headache Migraines Osteoporosis Pancreatic duct stricture Personality disorder Rheumatoid arthritis Rheumatoid arthritis Severe protein-calorie malnutrition Steatorrhea, pancreatic Syncope TIA (transient ischemic attack) Wears dentures Wears hearing aid Home Medications alprazolam 1 mg tablet (Xanax) 1 mg PO BID 12/16/13 [History Last Taken 12/04/17 22:00 1 MG] sodium chloride 1 gram tablet 1 g PO TID SALT SUPPLEMENT 12/16/13 [History Last Taken 12/04/17 22:00 1 GM] rizatriptan 10 mg tablet 10 mg PO PRN PRN Headache 05/06/17 [History Last Taken 12/04/17 22:00 10 MG] Ropinirole Hcl [Requip] 1 tab PO QHS 07/23/18 [History Last Taken Unknown] apremilast 30 mg tablet 30 mg PO DAILY 08/04/20 [History Last Taken Unknown] atorvastatin 20 mg tablet 20 mg PO QHS 08/04/20 [History Last Taken Unknown] calcium carbonate 600 mg-vitamin D3 10 mcg (400 unit) tablet 1 tablet PO DAILY 08/04/20 [History Last Taken Unknown] dicyclomine 10 mg capsule 10 mg PO 4X/DAY PRN abdominal pain 08/04/20 [History Last Taken Unknown] bypjva-dicmjoyy-bsnyetk 6,000-19,000-30,000 unit capsule,delayed rel 2 capsule PO ACHS 08/04/20 [History Last Taken Unknown] magnesium oxide 400 mg (241.3 mg magnesium) tablet 400 mg PO DAILY 08/04/20 [History Last Taken Unknown] omega-3 fatty acids 1,000 mg capsule 2 tablet PO DAILY 08/04/20 [History Last Taken Unknown] potassium chloride 8 mEq capsule,extended release 8 meq PO BREAKFAST 08/04/20 [History Last Taken Unknown] psyllium husk 0.52 gram capsule 0.52 gm PO DAILY 08/04/20 [History Last Taken Unknown] topiramate 25 mg tablet 25 mg PO DAILY 07/17/21 [History Last Taken Unknown] abatacept 125 mg/mL subcutaneous syringe 125 syringe subcut QWEEK 07/28/21 [History Last Taken Unknown] quetiapine 100 mg tablet 100 mg PO QHS ANXIETY 07/28/21 [History Last Taken Unknown] albuterol sulfate 3 mg inhalation Q4H PRN PRN Wheezing 08/11/21 [History Last Taken Unknown] bacitracin zinc 500 unit/gram topical ointment 1 applic topical DAILY 08/11/21 [History Last Taken Unknown] benzonatate 100 mg capsule 100 mg PO TID PRN Cough 08/11/21 [History Last Taken Unknown] betamethasone, augmented 0.05 % topical ointment (Diprolene (augmented)) 1 applic topical DAILY 08/11/21 [History Last Taken Unknown] nicotine 10 mg inhalation cartridge (Nicotrol) 1 inh inhalation BID 08/11/21 [History Last Taken Unknown] tretinoin 0.025 % topical gel (Retin-A) 1 applic topical QHS 08/11/21 [History Last Taken Unknown] Allergy/AdvReac Type Severity Reaction Status Date / Time acetaminophen Allergy Hives Verified 10/23/21 20:22 [From Darvocet-N 100] codeine Allergy Hives Verified 10/23/21 20:22 oxaprozin [From Daypro] Allergy Hives Verified 10/23/21 20:22 oxybutynin Allergy Unknown Verified 10/23/21 20:22 pentazocine lactate Allergy Itching Verified 10/23/21 20:22 [From Talwin] propoxyphene HCl Allergy Hives Verified 10/23/21 20:22 [From Darvon] propoxyphene napsylate Allergy Hives Verified 10/23/21 20:22 [From Darvocet-N 100] rofecoxib [From Vioxx] Allergy Rash Verified 10/23/21 20:22 tramadol HCl [From Ultram] Allergy Upset Verified 10/23/21 20:22 Stomach cyclobenzaprine HCl AdvReac Upset Verified 10/23/21 20:22 [From Flexeril] Stomach venlafaxine HCl AdvReac Upset Verified 10/23/21 20:22 [From Effexor] Stomach PINE Allergy Hives Uncoded 10/23/21 20:22 Family History Mother CVA (cerebral vascular accident) Hypertension Father Cancer Diabetes Sister Thyroid disorder Surgical History H/O section History of back surgery History of bladder surgery History of cochlear implant History of tracheostomy Hx of cholecystectomy Hx of LASIK Hx of neck surgery Hx of tubal ligation Social History Smoking Status: Former smoker quit date: 06/02/17 pack-years: 30 alcohol intake: never ROS ROS ED Constitutional Constitutional ED: Denies chills or fever(s) Eyes Eyes: Denies change in vision or diplopia ENT ENT ED: Denies rhinorrhea or sore throat Cardiovascular Cardiovascular: Denies chest pain or palpitations Respiratory/Chest Respiratory/Chest: Denies cough or dyspnea Gastrointestinal Gastrointestinal: Denies abdominal pain or constipation Genitourinary Genitourinary ED: Denies dysuria or hematuria Musculoskeletal Musculoskeletal: Denies arthralgias or back pain Integumentary Denies abscess or Abrasions Neurologic Neurologic: Denies headache(s) or paresthesias Psychiatric Psychiatric: Denies anxiety or depression EXAM Physical Exam Const Vital Signs: 10/23/21 20:22 10/23/21 20:30 10/23/21 20:30 Temperature 97.5 F L Temperature Source Temporal Pulse Rate 98 89 Respiratory Rate 15 18 Respiratory Effort Normal Non-Labored Respiratory Pattern Normal Blood Pressure 173/103 H 174/93 H Blood Pressure Mean 126 120 Pulse Ox 97 97 Oxygen Delivery Method Room Air Room Air Positive well nourished General Appearance ED: NAD HEENT Reports moist mucous membranes and dry mucous membranes Negative for trauma Mouth ED: Yes dry mucous membranes Mouth: dry mucous membranes Eyes PERRL and EOMs intact bilaterally Resp normal respiratory effort Cardio regular rate and regular rhythm GI normal to inspection, nondistended, normoactive bowel sounds Neuro oriented x3 and CN's II-XII intact bilaterally Sensorium / Orientation: alert Psych mental status grossly normal Skin no rashes or lesions noted MDM MDM MDM Narrative Medical decision making narrative: Patient presenting with hypertension. She states she is not having any other symptoms other than mild headache. She denies visual complaints. She not having chest pain or shortness of breath. Her blood pressure is now 169/82. She tells me that her blood pressure was sometimes runs low so I did not give her any more. She states that she has to leave because her dogs. I do not have a reason to acutely treat her for her blood pressure if it is coming down and she is not have any red flag signs or symptoms. She was given return precautions prior to discharge. After she left I did speak with Dr. Garcia who stated that she is on losartan 25 mg and this is what was doubled. He tells me that she had reported some visual disturbance in the right eye. I did discuss with him that she did not mention this to me and she is not having any deficits or any complaints. He states that he will call her in the morning. Impression: 1. Elevated blood pressure Lab Data Attestation: I reviewed the patient's lab results. Discharge Plan Triage Chief Complaint: Hypertension ED Provider: Thomas Sylvester Dx/Rx/DC Orders Instructions: ED Hypertension, Established Prescriptions: No Action topiramate 25 mg tablet 25 mg PO DAILY Orencia 125 mg/mL syringe 125 syringe subcut QWEEK sodium chloride 1 GM tablet 1 g PO TID alprazolam [Xanax] 1 MG tablet 1 mg PO BID quetiapine 100 mg tablet 100 mg PO QHS rizatriptan 10 tablet 10 mg PO PRN PRN (Reason: Headache) Label Comments: Ropinirole Hcl [Requip] 1 MG tablet 1 tab PO QHS Label Comments: take 1 tablet by mouth at bedtime atorvastatin 20 MG tablet 20 mg PO QHS potassium chloride 8 MEQ capsule, extended release 8 meq PO BREAKFAST omega-3 fatty acids 1,000 MG capsule 2 tablet PO DAILY magnesium oxide 400 MG tablet 400 mg PO DAILY dicyclomine 10 MG capsule 10 mg PO 4X/DAY PRN (Reason: abdominal pain) psyllium husk 0.52 GM capsule 0.52 gm PO DAILY calcium carbonate-vitamin D3 1 EACH tablet 1 tablet PO DAILY dxpsmg-obcrzpjy-wucdaae 1 CAPSULE capsule 2 capsule PO ACHS apremilast 30 MG tablet 30 mg PO DAILY albuterol sulfate 2.5 mg /3 mL (0.083 %) solution for nebulization 3 mg inhalation Q4H PRN PRN (Reason: Wheezing) betamethasone, augmented [Diprolene (augmented)] 0.05 % Ointment 1 applic TOPICAL DAILY bacitracin zinc 500 unit/gram Ointment 1 applic TOPICAL DAILY Nicotrol 10 mg Cartridge 1 inh INHALATION BID tretinoin [Retin-A] 0.025 % Gel 1 applic TOPICAL QHS benzonatate [Tessalon Perles] 100 mg Capsule 100 mg PO TID PRN (Reason: Cough) Primary Care Provider: Rodney Pool Referrals: Rodney Pool MD [Primary Care Provider] - Disposition Disposition: Home, Self Care
[2021-10-23 21:12] VITALS: BP 169/82
== END 2021-10-23 21:16 | disposition home or self-care (01) ==
LOC: ED 21:08
PROVIDERS: Emergency Provider Student in an Organized Health Care Education/Training Program; PCP Family Medicine; Visit Provider Student in an Organized Health Care Education/Training Program
DX: R03.0 Elevated blood-pressure reading, without diagnosis of hypertension (principal); M06.9 Rheumatoid arthritis, unspecified; J44.9 Chronic obstructive pulmonary disease, unspecified; K86.1 Other chronic pancreatitis; E78.00 Pure hypercholesterolemia, unspecified; Z87.891 Personal history of nicotine dependence; F41.9 Anxiety disorder, unspecified; M81.0 Age-related osteoporosis without current pathological fracture; G43.909 Migraine, unspecified, not intractable, without status migrainosus; Z86.73 Personal history of transient ischemic attack (TIA), and cerebral infarction without residual deficits; Z79.899 Other long term (current) drug therapy
CPT/HCPCS: 99282

== ENCOUNTER 2021-11-06 22:54 | Emergency (ER) | payer MEDICAID, SELFPAY ==
[2021-11-06 22:55] VITALS: BP 112/51; PULSE 56; RESP 16; TEMP 36.4; O2SAT 97; BMI 22.3
--- NOTE | 2021-11-06 23:17 | EKG12_ITS ---
Test Reason : DYSRHYTHMIA Blood Pressure : / mmHG Vent. Rate : 066 BPM Atrial Rate : 066 BPM P-R Int : 200 ms QRS Dur : 092 ms QT Int : 396 ms P-R-T Axes : 054 065 080 degrees QTc Int : 415 ms Sinus rhythm with Premature atrial complexes Septal infarct , age undetermined Abnormal ECG Confirmed by SANJUANITA KAISER, RUT ([id number]), market editor JAIMEE ROMERO ([id number]) on 11/07/2021 11:40:51 AM Referred By: CHON Confirmed By:RUT GANN MD
--- NOTE | 2021-11-06 23:17 | RAD_ITS ---
EXAM: XR CHEST, 1 VIEW CLINICAL INDICATION: CAD TECHNIQUE: Frontal view of the chest. This report was created using [employer] report generation technology. COMPARISON: None. FINDINGS: LUNGS AND PLEURAL SPACES: Unremarkable. No consolidation or edema. No pneumothorax. No effusion. HEART: Unremarkable. Cardiac silhouette not enlarged. MEDIASTINUM: Central airways and mediastinal contour are unremarkable. BONES/JOINTS: Unremarkable. SOFT TISSUES: Unremarkable. RAD/Chest 1 View (Portable) IMPRESSION: No radiographic evidence of acute cardiopulmonary disease. Electronically Signed: Bob Cornell MD at 0:43 EDT ,
--- NOTE | 2021-11-06 23:18 | EDS_ITS ---
HPI History of Present Illness Chief Complaint: Hypotension Narrative Narrative: 66-year-old female presents with her sister because of reported hypotension, generalized weakness, and lightheadedness. She has multiple medical problems ranging from pancreatitis, the COPD, TIA and frequent falls with compression fracture of L1 lumbar vertebra. She has hypertension, she used to take salt tablets for hypotension, but over the last year she states she is had problems with high blood pressure. She started losartan 50 mg orally. She states that today her blood pressure was elevated at 170 systolic. She called her primary care provider, Dr. Pool, who told her to take another losartan. This evening, after she had taken it around 4:56 PM, 6 hours ago, she became lightheaded when she stood up and off balance. Her sister reports systolic blood pressure at 98. She denies any fevers or chills. She has chronic diarrhea from her pancreas problems. Of note, she also takes a benzodiazepine and something for her restless leg syndrome. She states she is felt tired all day and just wants to sleep. Her sister states she is concerned that if her blood pressure is too low that her heart will stop if she went to sleep. Patient denies any chest pain. No shortness of breath, no dysuria or hematuria, no other symptoms except for generalized weakness, lightheadedness, and fatigue. [facility] Medical History Abnormal findings on diagnostic imaging of liver and biliary tract Abnormal weight loss Anemia Anxiety Arthritis Back pain Broken back Bulimia Calculus of gallbladder without cholecystitis without obstruction Cardiology follow-up encounter Cochlear implant in place COPD (chronic obstructive pulmonary disease) DDD (degenerative disc disease), cervical Former smoker Hepatitis C High cholesterol History of echocardiogram History of irregular heartbeat History of stress test Hx of fracture of nose Idiopathic chronic pancreatitis Injury of back Injury of head and neck Latent tuberculosis Leg cramps Migraine headache Migraines Osteoporosis Pancreatic duct stricture Personality disorder Rheumatoid arthritis Rheumatoid arthritis Severe protein-calorie malnutrition Steatorrhea, pancreatic Syncope TIA (transient ischemic attack) Wears dentures Wears hearing aid Home Medications alprazolam 1 mg tablet (Xanax) 1 mg PO BID 12/16/13 [History Last Taken 12/04/17 22:00 1 MG] sodium chloride 1 gram tablet 1 g PO TID SALT SUPPLEMENT 12/16/13 [History Last Taken 12/04/17 22:00 1 GM] rizatriptan 10 mg tablet 10 mg PO PRN PRN Headache 05/06/17 [History Last Taken 12/04/17 22:00 10 MG] Ropinirole Hcl [Requip] 1 tab PO QHS 07/23/18 [History Last Taken Unknown] apremilast 30 mg tablet 30 mg PO DAILY 08/04/20 [History Last Taken Unknown] atorvastatin 20 mg tablet 20 mg PO QHS 08/04/20 [History Last Taken Unknown] calcium carbonate 600 mg-vitamin D3 10 mcg (400 unit) tablet 1 tablet PO DAILY 08/04/20 [History Last Taken Unknown] dicyclomine 10 mg capsule 10 mg PO 4X/DAY PRN abdominal pain 08/04/20 [History Last Taken Unknown] vyepfd-apmszusa-mhbzfst 6,000-19,000-30,000 unit capsule,delayed rel 2 capsule PO ACHS 08/04/20 [History Last Taken Unknown] magnesium oxide 400 mg (241.3 mg magnesium) tablet 400 mg PO DAILY 08/04/20 [History Last Taken Unknown] omega-3 fatty acids 1,000 mg capsule 2 tablet PO DAILY 08/04/20 [History Last Taken Unknown] potassium chloride 8 mEq capsule,extended release 8 meq PO BREAKFAST 08/04/20 [History Last Taken Unknown] psyllium husk 0.52 gram capsule 0.52 gm PO DAILY 08/04/20 [History Last Taken Unknown] topiramate 25 mg tablet 25 mg PO DAILY 07/17/21 [History Last Taken Unknown] abatacept 125 mg/mL subcutaneous syringe 125 syringe subcut QWEEK 07/28/21 [History Last Taken Unknown] quetiapine 100 mg tablet 100 mg PO QHS ANXIETY 07/28/21 [History Last Taken Unknown] albuterol sulfate 2.5 mg/3 mL (0.083 %) solution for nebulization 3 mg inhalatio n Q4H PRN PRN Wheezing 08/11/21 [History Last Taken Unknown] bacitracin zinc 500 unit/gram topical ointment 1 applic topical DAILY 08/11/21 [History Last Taken Unknown] benzonatate 100 mg capsule 100 mg PO TID PRN Cough 08/11/21 [History Last Taken Unknown] betamethasone, augmented 0.05 % topical ointment (Diprolene (augmented)) 1 applic topical DAILY 08/11/21 [History Last Taken Unknown] nicotine 10 mg inhalation cartridge (Nicotrol) 1 inh inhalation BID 08/11/21 [History Last Taken Unknown] tretinoin 0.025 % topical gel (Retin-A) 1 applic topical QHS 08/11/21 [History Last Taken Unknown] losartan 50 mg tablet 50 mg PO 10/30/21 [History Last Taken Unknown] alprazolam 1 mg tablet 1 mg PO BID PRN Anxiety 11/06/21 [History Last Taken Unknown] Allergy/AdvReac Type Severity Reaction Status Date / Time acetaminophen Allergy Hives Verified 11/06/21 23:09 [From Darvocet-N 100] codeine Allergy Hives Verified 11/06/21 23:09 oxaprozin [From Daypro] Allergy Hives Verified 11/06/21 23:09 oxybutynin Allergy Unknown Verified 11/06/21 23:09 pentazocine lactate Allergy Itching Verified 11/06/21 23:09 [From Talwin] propoxyphene HCl Allergy Hives Verified 11/06/21 23:09 [From Darvon] propoxyphene napsylate Allergy Hives Verified 11/06/21 23:09 [From Darvocet-N 100] rofecoxib [From Vioxx] Allergy Rash Verified 11/06/21 23:09 tramadol HCl [From Ultram] Allergy Upset Verified 11/06/21 23:09 Stomach cyclobenzaprine HCl AdvReac Upset Verified 11/06/21 23:09 [From Flexeril] Stomach venlafaxine HCl AdvReac Upset Verified 11/06/21 23:09 [From Effexor] Stomach PINE Allergy Hives Uncoded 11/06/21 23:09 Family History Mother CVA (cerebral vascular accident) Hypertension Father Cancer Diabetes Sister Thyroid disorder Surgical History H/O section History of back surgery History of bladder surgery History of cochlear implant History of tracheostomy Hx of cholecystectomy Hx of LASIK Hx of neck surgery Hx of tubal ligation Social History Smoking Status: Current every day smoker tobacco type: cigarettes alcohol intake: never ROS ROS ED ROS Narrative Constitutional: No fever, no chills. Fatigue. HEENT: No sore throat. No neck pain. No loss of vision. No rhinorrhea. Cardiovascular: No chest pain. No palpitations. No pedal edema. Respiratory: No cough, no shortness of breath. Abdominal: No abdominal pain. No nausea. No vomiting. Genitourinary: No dysuria. No hematuria. Musculoskeletal: No myalgias. No arthralgias. Neurologic: No headaches. No dizziness. Positive lightheadedness. Generalized weakness. Skin: No rash. No change in color. Psychiatric: No depression. No anxiety. EXAM Physical Exam Narrative Exam Narrative: Afebrile. Vital signs noted. HEENT: Normocephalic. Atraumatic. PERRL, EOMI. Neck soft and supple. No point tenderness or step off. Cardiovascular: Regular rate and rhythm with intermittent bradycardia. No murmurs, rubs, or gallops appreciated. Respiratory: No tachypnea. Lungs clear to auscultation bilaterally. Gastrointestinal: Abdomen soft, nontender, with normoactive bowel sounds. No rebound or guarding. Neurological: Awake. Intermittently sleeping. Easily awakened. Alert. Nonfocal, nonlateralizing. Skin: No rash. Normal color. No pallor. Musculoskeletal: No pedal edema. Full range of motion extremities. Currently wearing back brace. Const Vital Signs: 11/06/21 22:55 11/06/21 23:08 11/06/21 23:32 Temperature 97.6 F L Temperature Source Temporal Pulse Rate 56 L 58 L Pulse Rate [Lying] Respiratory Rate 16 17 Respiratory Effort Normal Non-Labored Respiratory Pattern Normal Blood Pressure 112/51 L 124/72 H Blood Pressure [Lying] Blood Pressure Mean 71 89 Blood Pressure Mean [Lying] Pulse Ox 97 96 Oxygen Delivery Method Room Air Room Air 11/06/21 23:32 11/06/21 23:38 11/06/21 23:45 Temperature Temperature Source Pulse Rate Pulse Rate [Lying] 63 67 Respiratory Rate Respiratory Effort Respiratory Pattern Blood Pressure Blood Pressure [Lying] 124/72 H 127/82 H Blood Pressure Mean Blood Pressure Mean [Lying] 89 97 Pulse Ox Oxygen Delivery Method Room Air 11/06/21 23:49 11/07/21 00:17 11/07/21 01:00 Temperature Temperature Source Pulse Rate 64 Pulse Rate [Lying] 71 Respiratory Rate 17 17 Respiratory Effort Respiratory Pattern Blood Pressure 122/80 H Blood Pressure [Lying] Blood Pressure Mean 94 Blood Pressure Mean [Lying] Pulse Ox 98 Oxygen Delivery Method Room Air Room Air 11/07/21 01:07 Temperature Temperature Source Pulse Rate 78 Pulse Rate [Lying] Respiratory Rate 19 H Respiratory Effort Respiratory Pattern Blood Pressure 98/74 Blood Pressure [Lying] Blood Pressure Mean Blood Pressure Mean [Lying] Pulse Ox 96 Oxygen Delivery Method MDM MDM MDM Narrative Medical decision making narrative: She is not hypotensive currently. I do feel that this may be an accidental medication overdose that is causing her transient reported hypotension. Sepsis work-up was pursued however, and she was bolused normal saline 1 L intravenously. Her blood pressure has remained normal here in the emergency department. CBC is grossly normal with a normal white count of 8.1, hemoglobin normal at 12.9, hematocrit 39.3 with normal platelet count of 232. Her electrolyte panel shows potassium slightly low 3.3 which was replaced orally. BUN elevated at 19 with a creatinine of 0.99. Although her lactic acid is elevated at 2.5, she was bolused normal saline and she has a normal blood pressure currently. I do think that she had a transient hypotension secondary to the extra medication that she took. Her EKG interpreted by myself demonstrates normal sinus rhythm at 66 bpm with PACs. No evidence of an acute STEMI. Chest x-ray interpreted by myself shows no acute process. Urinalysis shows no evidence of infection. I am not concerned for sepsis with her elevation in lactic acid. Once again I think it is from her transient hypotension. It was reported by RN, that the patient did not want the second liter of normal saline that was ordered for her lactic acidosis. At this point in time, upon repeat examination she feels improved. She states that she was sleeping and feels improved. I feel she be discharged safely home with follow- up. She was told not to take extra doses of her medication until she does repeat blood pressure check. She will continue her losartan 50 mg once daily. She will follow-up with her primary care physician. Return instructions to the emergency department were reviewed. Disposition is discharged home in stable condition. Lab Data Attestation: I reviewed the patient's lab results. Labs: Laboratory Results - last 24 hr 11/06/21 11/06/2111/06/22 23:30 23:30 23:30 WBC 8.1 RBC 3.95 L Hgb 12.9 Hct 39.3 MCV 99.5 H MCH 32.7 H MCHC 32.8 RDW Std Deviation 58.4 H RDW Coeff of Fidelina 15.8 H Plt Count 232 MPV 9.5 Immature Gran % (Auto) 0.200 Neut % (Auto) 40.6 L Lymph % (Auto) 52.3 H Barron % (Auto) 5.5 Eos % (Auto) 1.0 Baso % (Auto) 0.4 Absolute Neuts (auto) 3.3 Absolute Lymphs (auto) 4.25 Nucleated RBC % 0 Sodium 141 Potassium 3.3 L Chloride 110 H Carbon Dioxide 23.0 Anion Gap 8 BUN 19 H Creatinine 0.99 Estim Creat Clear Calc 49.57 Est GFR (MDRD) Af Amer 73 Est GFR (MDRD) Non-Af 60 BUN/Creatinine Ratio 19.2 Glucose 114 H Lactic Acid 2.5 H* Calcium 9.0 Total Bilirubin 0.20 AST 26 ALT 27 Alkaline Phosphatase 65 Total Protein 6.6 Albumin 3.4 Globulin 3.2 Albumin/Globulin Ratio 1.1 Urine Color Urine Clarity Urine pH Ur Specific Effie Urine Protein Urine Glucose (UA) Urine Ketones Urine Occult Blood Urine Nitrite Urine Bilirubin Urine Urobilinogen Ur Leukocyte Esterase Urine RBC Urine WBC Ur Squamous Epith Cells Urine Bacteria Urine Mucus 11/06/21 23:50 WBC RBC Hgb Hct MCV MCH MCHC RDW Std Deviation RDW Coeff of Fidelina Plt Count MPV Immature Gran % (Auto) Neut % (Auto) Lymph % (Auto) Barron % (Auto) Eos % (Auto) Baso % (Auto) Absolute Neuts (auto) Absolute Lymphs (auto) Nucleated RBC % Sodium Potassium Chloride Carbon Dioxide Anion Gap BUN Creatinine Estim Creat Clear Calc Est GFR (MDRD) Af Amer Est GFR (MDRD) Non-Af BUN/Creatinine Ratio Glucose Lactic Acid Calcium Total Bilirubin AST ALT Alkaline Phosphatase Total Protein Albumin Globulin Albumin/Globulin Ratio Urine Color Straw Urine Clarity Clear Urine pH 6.5 Ur Specific Effie 1.010 Urine Protein Negative Urine Glucose (UA) Normal Urine Ketones Negative Urine Occult Blood Negative Urine Nitrite Negative Urine Bilirubin Negative Urine Urobilinogen Normal Ur Leukocyte Esterase Negative Urine RBC 0 SEEN Urine WBC 0-5 SEEN Ur Squamous Epith Cells 0-5 SEEN Urine Bacteria RARE Urine Mucus 0 SEEN Radiography Diagnostic Testing: Clinical Impression(s) from Imaging Studies Chest X-Ray 11/06/21 23:17 IMPRESSION: No radiographic evidence of acute cardiopulmonary disease. Electronically Signed: Bob Cornell MD at 0:43 EDT Reading Location ID and State: [facility] / [place] Tel , Service support , Discharge Plan Triage Chief Complaint: Hypotension ED Provider: Jose Armando Kirkpatrick Dx/Rx/DC Orders Clinical Impression: Transient hypotension, Lactic acidosis, Hypokalemia, Accidental medication overdose Instructions: ED Low Blood Pressure, All Causes, ED Hypokalemia Prescriptions: No Action topiramate 25 mg tablet 25 mg PO DAILY Orencia 125 mg/mL syringe 125 syringe subcut QWEEK losartan 50 mg tablet 50 mg PO sodium chloride 1 GM tablet 1 g PO TID alprazolam [Xanax] 1 MG tablet 1 mg PO BID quetiapine 100 mg tablet 100 mg PO QHS rizatriptan 10 tablet 10 mg PO PRN PRN (Reason: Headache) Label Comments: Ropinirole Hcl [Requip] 1 MG tablet 1 tab PO QHS Label Comments: take 1 tablet by mouth at bedtime atorvastatin 20 MG tablet 20 mg PO QHS potassium chloride 8 MEQ capsule, extended release 8 meq PO BREAKFAST omega-3 fatty acids 1,000 MG capsule 2 tablet PO DAILY magnesium oxide 400 MG tablet 400 mg PO DAILY dicyclomine 10 MG capsule 10 mg PO 4X/DAY PRN (Reason: abdominal pain) psyllium husk 0.52 GM capsule 0.52 gm PO DAILY calcium carbonate-vitamin D3 1 EACH tablet 1 tablet PO DAILY kmupkv-ynrxnlfh-laypyxg 1 CAPSULE capsule 2 capsule PO ACHS apremilast 30 MG tablet 30 mg PO DAILY albuterol sulfate 2.5 mg /3 mL (0.083 %) solution for nebulization 3 mg inhalation Q4H PRN PRN (Reason: Wheezing) betamethasone, augmented [Diprolene (augmented)] 0.05 % Ointment 1 applic TOPICAL DAILY bacitracin zinc 500 unit/gram Ointment 1 applic TOPICAL DAILY Nicotrol 10 mg Cartridge 1 inh INHALATION BID tretinoin [Retin-A] 0.025 % Gel 1 applic TOPICAL QHS benzonatate [Tessalon Perles] 100 mg Capsule 100 mg PO TID PRN (Reason: Cough) alprazolam 1 mg tablet 1 mg PO BID PRN (Reason: Anxiety) Label Comments: take 1 tablet by mouth twice a day if needed for anxiety Primary Care Provider: Rodney Pool Referrals: Rodney Pool MD [Primary Care Provider] - 1 Day Disposition Disposition: Home, Self Care
[2021-11-06 23:32] VITALS: BP 124/72; PULSE 58; RESP 17; O2SAT 96
[2021-11-06 23:38] VITALS: BP 124/72; PULSE 63
[2021-11-06 23:39] LABS: Absolute Lymphocyte Count 4.25 X10^3/uL (0.83-4.51); Absolute Neutrophil Count 3.3 X10^3/uL (2.0-7.7); Basophil# 0.03 X10^3/uL; Basophil% 0.4 % (0-1); Eosinophil# 0.08 X10^3/uL; Hematocrit 39.3 % (37-47); Hemoglobin 12.9 g/dL (12.0-15.0); Lymphocyte # 4.25 X10^3/ul (0.83-4.51); Lymphocyte % 52.3 % (19-41); Mean Corp Hgb Conc 32.8 g/dL (32-36); Mean Corpuscular Hgb 32.7 pg (27.0-32.0); Mean Corpuscular Volume 99.5 fL (81-99); Mean Platelet Vol. 9.5 fl (6.2-12.0); Monocyte# 0.45 X10^3/uL; Monocyte% 5.5 % (0-10); NRBC Flagged by Analyzer 0 % (0-5); Neutrophil # 3.29 X10^3/uL (2.7-7.7); Neutrophil % 40.6 % (47-70); Platelet Count 232 K/mm3 (150-450); RBC Distribution Width CV 15.8 % (11.6-14.6); RBC Distribution Width SD 58.4 fl (35.1-43.9); Red Blood Count 3.95 M/mm3 (4.2-5.4); White Blood Count 8.1 K/mm3 (4.4-11.0)
[2021-11-06 23:45] VITALS: BP 127/82; PULSE 67
[2021-11-06 23:49] VITALS: PULSE 71
[2021-11-06] MEDS: 0.9% Normal Saline 1,000 ML 999 ML IV (23:51)
[2021-11-07] LABS: Mucous, Urine 0 SEEN /hpf (<or=2+); Red Blood Cells-Urine 0 SEEN /hpf (0-5)
[2021-11-07] LABS: ALB/GLOB Ratio 1.1 RATIO (0.9-2.4); AST(SGOT) 26 U/L (15-37); Alanine Aminotransfer ALT/SGPT 27 U/L (13-56); Albumin, Serum 3.4 g/dL (3.2-5.0); Alkaline Phosphatase 65 U/L (45-117); Anion Gap 8 (5-15); BUN 19 mg/dL (7-18); BUN/Creat Ratio 19.2 RATIO (10-20); Chloride 110 mmol/L (98-107); Creatinine, Serum 0.99 mg/dL (0.55-1.02); EST Glomerular Filtration Rate 60 mL/min (>60); Est Glom Filt Rate - Afr Amer 73 mL/min (>60); Estimated Creatinine Clearance 49.57 ml/min; Globulin 3.2 g/dL (2.2-4.2); Glucose 114 mg/dL (74-106); Potassium 3.3 mmol/L (3.5-5.1); Protein, Total 6.6 g/dL (6.4-8.2); Sodium Level 141 mmol/L (136-145)
[2021-11-07 00:02] LABS: Color, Urine Straw (Yellow); Glucose, Dipstick Normal (Normal); Ketone-Dipstick Negative (Negative); Leukocyte Esterase-Dipstick Negative /ul (Negative); Nitrite-Dipstick Negative (Negative); Occult Blood-Urine Negative /ul (Negative); Protein-Dipstick Negative (Negative); Urine Bilirubin Dipstick Negative (Negative); Urine Clarity Clear (Clear); Urine Urobilinogen Normal (Normal); Urine pH 6.5 (5.0 - 8.0)
[2021-11-07 00:13] LABS: Bacteria RARE /hpf (None Seen); Squamous Epithelial Cells - UA 0-5 SEEN /hpf (5-10); White Blood Cells 0-5 SEEN /hpf (0-5)
[2021-11-07 00:17] VITALS: BP 122/80; PULSE 64; RESP 17; O2SAT 98
[2021-11-07 00:53] LABS: Lactic Acid 2.5 mmol/L (0.4-1.9)
[2021-11-07 01:00] VITALS: RESP 17
[2021-11-07] MEDS: Potassium Chloride Oral Tablet 20 MEQ 40 MEQ PO (01:04)
[2021-11-07 01:07] VITALS: BP 98/74; PULSE 78; RESP 19; O2SAT 96
[2021-11-07 03:52] LABS: Reflex Lactate? Y
== END 2021-11-07 01:13 | disposition home or self-care (01) ==
PROVIDERS: Emergency Provider Emergency Medicine; PCP Family Medicine; Visit Provider Emergency Medicine
DX: I95.2 Hypotension due to drugs (principal); M06.9 Rheumatoid arthritis, unspecified; J44.9 Chronic obstructive pulmonary disease, unspecified; K85.00 Idiopathic acute pancreatitis without necrosis or infection; E78.00 Pure hypercholesterolemia, unspecified; M81.0 Age-related osteoporosis without current pathological fracture; Z86.73 Personal history of transient ischemic attack (TIA), and cerebral infarction without residual deficits; F41.9 Anxiety disorder, unspecified; Z79.899 Other long term (current) drug therapy; F17.210 Nicotine dependence, cigarettes, uncomplicated; I49.1 Atrial premature depolarization; E87.2 Acidosis; E87.6 Hypokalemia; R29.6 Repeated falls; T46.5X5A Adverse effect of other antihypertensive drugs, initial encounter
CPT/HCPCS: 36415; 71045; 80053; 81001; 83605; 85025; 87040; 87077; 87086; 87088; 93005; 96360; 99285; J7030; A4216

== ENCOUNTER 2021-12-11 14:45 | Outpatient (RCR) | payer MEDICAID, SELFPAY ==
--- NOTE | 2021-12-11 18:36 | HP.OTEVAL ---
Patient's Visit Information DAVID BERG is a 66 year old F, referred to Occupational Therapy by DARREN Trujillo, with a diagnosis of right distal radius fx. Date of Evaluation: 12/11/21 Occupational Therapist: Bernarda Hernandez, TIERNEY/Marcus, CHT - Subjective This 66 year old female was seen for OT eval with dx or right distal radius fx. (non-displaced) pt states she tripped whiled outside her home- pt states she was going from the [employer] and while walking to her home she tripped over a landscape log- pt states she just thought she sprained her wrist for over a week- states she went to urgent care who did x-rays - this may have been end of August or early September. placed in a cast than a brace about two weeks ago. pt arrives today without brace- pt is right hand- pt states she can not lift gallon of milk out of her fridge-. pt does watch her grandchildren daily until 3pm- and has one grandson who does not go to school-. pt is currently limited with her strength of her right UE limiting her IND with ADLs and home mtg. pt would like to return to her PLOF- pt states she does have upcoming pancreas sx . - ADLs Kitchen: Lift gallon of milk Household: Vacuum, Laundry Comments: slow Yard: Mow lawn, [place] Comments: needs to wear back brace. started mowing the yard and did OK. Comments: pt lives in mobile home has ramp built 4-5 years ago- pt has fall risk. pt sleeps in hospital bed with trapize bar. pt lives a lone. pt has to do cooking and cleaning and yard work. pt having trouble with pushing off the tub to get herself out of the bathtub. - Pain right wrist 3 Pain Intensity Range: 5, 6 - ROM Forearm: right supination 60* left WNL Wrist: right 60/55 left 65/65 Opposition: Kapandji opposition scale right 10 left 10 ROM Comments: right RD 15* UD 30*. left RD 15* UD 30* - Strength Inweaver: right 15# left 40# Lateral Pinch: right 2# left 10# Tripod Pinch: right 2# left 10# Strength Comments: pt demo with weakness of right system planning engineer and pinch strength - Sensation Sensation Comments: denies - Quick DASH-Disab of Arm,Shoulder& Hand Quick DASH Score: 56.8175 - Goals Goal:: pt will demo a increase in right system planning engineer by 20# or greater to increase pts ind. with ADL and IADLs by d/c. pt will demo a increase in right lateral and tripod pinch strength by 4# to increase pts ind. with ADLs and IADLs by d.c Goal:: pt will report no pain greater than 2/10 with use of right hand with ADLs and IADLS by dc Goal:: pt will demo understanding of ad. eq. to increase safety and functional ind. with ADLs and IADls Goal:: pt will report return of mowing her grass with wrist brace on JUDY by d/c - Rehabilitation General Assessment: pt demo with weakness of right system planning engineer/pinch increasing difficulty with ADls and IADls. pt would benefit from skilled OT services 1-2x week for 4 weeks to return pt to PLOF. Today therapist ed. pt on increase use of right UE with ADLs and IADls. Pt was advised to wear wrist brace with home mtg. tasks - pt demo understanding and agree to POC. Rehabilitation Potential: Good - Anticipated Interventions Strengthening, Education re assistive Equipment, Education re Diagnosis, Home Program - Visit Plan Frequency: 1-2x /Week Duration: 4 Weeks TEXT: Thank you for the opportunity to evaluate your patient. For Medicare and Medicare HMO plans, please review the plan of care and approve it. It will need to be FAXED BACK to us at [phone] for Medicare purposes. Please let me know if there are questions or concerns regarding this plan of care. Physician Signature: Date:
--- NOTE | 2022-03-27 13:25 | HP.OT.NRP ---
DAVID BERG was seen in my office for initial evaluation on 12/11/21. The following Plan of Care was established for this patient: Initial Frequency: 1-2x /Week Initial Duration: 4 Weeks Anticipated Interventions: Strengthening, Education re assistive Equipment, Education re Diagnosis, Home Program This patient was last seen in our office 12/11/21. Pertinent comments regarding their Occupational therapy will appear below: pt was seen for OT eval only- pt did not return for further therapy apts and due to time lapse in services pt d/c At this point I will be discontinuing this patient from occupational therapy. I would be happy to see this patient again in the future if found appropriate by the physician. Thank you! Bernarda Hernandez, OTR/L, CHT
== END 2021-12-11 19:00 | disposition home or self-care (01) ==
LOC: OT 14:45
PROVIDERS: PCP Family Medicine
DX: S52.501D Unspecified fracture of the lower end of right radius, subsequent encounter for closed fracture with routine healing (principal); X58.XXXD Exposure to other specified factors, subsequent encounter
CPT/HCPCS: 97166; 97530

== ENCOUNTER → 2021-12-15 | Outpatient (CLI) | payer MEDICAID, SELFPAY ==
[2021-12-15 16:03] LABS: Absolute Lymphocyte Count 2.66 X10^3/uL (0.83-4.51); Absolute Neutrophil Count 2.5 X10^3/uL (2.0-7.7); Basophil# 0.04 X10^3/uL; Basophil% 0.7 % (0-1); Eosinophil# 0.08 X10^3/uL; Eosinophils% 1.4 % (0-5); Hematocrit 41.6 % (37-47); Hemoglobin 13.6 g/dL (12.0-15.0); Lymphocyte # 2.66 X10^3/ul (0.83-4.51); Lymphocyte % 46.3 % (19-41); Mean Corp Hgb Conc 32.7 g/dL (32-36); Mean Corpuscular Hgb 33.2 pg (27.0-32.0); Mean Corpuscular Volume 101.5 fL (81-99); Mean Platelet Vol. 10.5 fl (6.2-12.0); Monocyte# 0.42 X10^3/uL; Monocyte% 7.3 % (0-10); NRBC Flagged by Analyzer 0 % (0-5); Neutrophil # 2.54 X10^3/uL (2.7-7.7); Neutrophil % 44.1 % (47-70); Platelet Count 270 K/mm3 (150-450); RBC Distribution Width CV 14.9 % (11.6-14.6); White Blood Count 5.8 K/mm3 (4.4-11.0)
[2021-12-15 16:18] LABS: Erythrocyte Sedimentation Rate 20 mm/hr (0-30)
[2021-12-15 16:58] LABS: Hemoglobin A1c 5.6 % (3.8-5.6)
[2021-12-15 17:30] LABS: ALB/GLOB Ratio 1.1 RATIO (0.9-2.4); AST(SGOT) 32 U/L (15-37); Alanine Aminotransfer ALT/SGPT 29 U/L (13-56); Albumin, Serum 3.6 g/dL (3.2-5.0); Alkaline Phosphatase 71 U/L (45-117); Anion Gap 6 (5-15); BUN 12 mg/dL (7-18); BUN/Creat Ratio 14.2 RATIO (10-20); CRP < 2.90 mg/L (0.0-3.0); Calcium,Total 9.9 mg/dL (8.5-10.1); Chloride 108 mmol/L (98-107); Creatinine, Serum 0.85 mg/dL (0.55-1.02); EST Glomerular Filtration Rate 72 mL/min (>60); Est Glom Filt Rate - Afr Amer 87 mL/min (>60); Free T3 3.3 pg/mL (2.18-3.98); Globulin 3.4 g/dL (2.2-4.2); Glucose 101 mg/dL (74-106); Potassium 3.7 mmol/L (3.5-5.1); Sodium Level 141 mmol/L (136-145); T4 Free Direct 0.93 ng/dL (0.76-1.46); T4 Total, Thyroxin 9.3 ug/dL (4.8-13.9)
[2021-12-18 08:51] LABS: Vitamin B12 475 pg/mL (211-911); Vitamin D,25 Hydroxy 35.4 ng/mL
== END | disposition home or self-care (01) ==
LOC: LAB 14:43
PROVIDERS: PCP Family Medicine; Referring Provider Student in an Organized Health Care Education/Training Program; Visit Provider Student in an Organized Health Care Education/Training Program
DX: I73.89 Other specified peripheral vascular diseases (principal); R25.2 Cramp and spasm
CPT/HCPCS: 36415; 80053; 82306; 82607; 82746; 83036; 83735; 84425; 84436; 84439; 84443; 84481; 85025; 85652; 86140

== ENCOUNTER 2021-12-28 09:21 | Day surgery (SDC) | payer MEDICAID, SELFPAY ==
[2021-12-28] VITALS (9 sets, daily range): BP systolic 121–174; BP diastolic 63–93; PULSE 68–81; RESP 16–18; TEMP 36.5–36.9; O2SAT 92–98; BMI 22.7
--- NOTE | 2021-12-28 09:32 | HP.PCM_ITS ---
History and Physical Date of Admission: 12/28/21 DAVID BERG, is a 65 F who presents to the office today for Initial consult. David established with this clinic 09.20.21 with referral from PCP for continued management of pancreatitis with pancreatic duct stricture. History of acute pancreatitis several times a month secondary to ampullary stricture and pancreatic duct stricture. Addition symptoms include steatorrhea and severe protein calorie malnutrition with weight loss. ERCP performed with short pancreatic duct stent placed with subsequent contained duodenal perforation. Then underwent PEG placement that was not tolerated well and removed. Repeat ERCP and pancreatic duct stenting; however, stent dislodged. No alcohol use. Quite smoking 2.2013 following ?s r/t COPD. PMH HCV without coma in 1979 Tx with interferon and ribavirin, negative RNA 2015; bulimia, COPD, cochlear implant with silver screws, epileptic petit mal status; hyperlipidemia; nephrotic syndrome; orthostatic hypotension; osteoporosis; psoriasis; rheumatoid arthritis (Dr. Bowden) US RUQ 01.07.2020 finding coarse echotexture of liver. Remaining exam without abnormality. EGD and EUS 04.06.20 finding mild duodenitis; diffusely dilated PD suspect pancreatic divisum; normal CBD. Cholecystectomy laparoscopic 06.03.[address] Esparza. ERCP 08.02.20 with major ampulla sphincterotomy with PD stenting. Subsequent contained duodenal perforation, not peritonitic. Upper GI 08.08.20 finding no evidence for full-thickness perforation to the level of the ligament of Treitz. ERCP 09.26.20 for stent replacement. Stool testing 02.10.21 enteric pathogens, C.Difficile WNL. ROS Const Constitutional: No anorexia, fatigue, fever(s), weight change or sleep problems Eyes Eyes: No change in vision ENT ENT: No abnormal hearing, difficulty swallowing, mouth lesions, tongue swelling or throat swelling Resp Respiratory: No cough or shortness of breath Cardio Cardiology: No chest pain at rest, chest pain with exertion, shortness of breath or dyspnea on exertion Gastro GI: No difficulty swallowing Genitourinary-Female: No difficulty urinating or burning urination Musc Musculoskeletal: No joint pain, joint swelling, muscle weakness or decreased muscle mass Skin Skin: No hair loss in leg, yellowing of the eye, itchy eyes, rash, skin ulcer or skin swelling Neuro Neurology: No abnormal hearing, abnormal movements, confusion, unsteady gait/balance or memory loss Psych Psychiatric: No anxiety, No confusion and No memory loss Endo Endocrine: No fatigue or weight change Aller/Imm Allergy/Immunologic: No itchy eyes, throat swelling or tongue swelling Javier/Lymp Hematologic/Lymphatic: No easy bleeding, easy bruising or enlarged lymph nodes Exam Const General: cooperative and comfortable Nutritional Appearance: average body habitus and well nourished [facility] Head: normal to inspection Ears: hearing grossly normal bilaterally Nose: external nose normal Face and sinus: normal facial exam Mouth: oral mucosae normal Throat: posterior oropharynx normal Eyes General: appearance normal, both eyes and all related structures Neck Neck: normal visual inspection Chest Chest palpation & inspection: normal inspection of the chest and normal palpation of entire chest wall Resp Effort & Inspection: normal respiratory effort Auscultation: Bilateral: Clear to Auscultation Cardio Palpation: normal PMI Rate: regular rate Rhythm: regular rhythm GI Inspection: normal to inspection Auscultation: normal bowel sounds Percussion: normal to percussion Palpation: no hepatosplenomegaly Skin General: no rashes or lesions noted Neuro General: patient alert Extrem General: normal to inspection Psych Affect: normal affect Quality Reporting Tobacco Screening ([facility] 138) Smoking Status: Former smoker Assessment and Plan Assessment and Plan (1) Pancreatitis: ?Status:?Acute ?Plan - Dr. Del Castillo Friend, DO: Pancreatic divisum causing acute recurrent pancreatitis status post stent placement and stent was dislodged.? She will get scheduled for an ERCP to evaluate her hepatobiliary system.? After we evaluate her hepatobiliary system I will have a better idea regarding her anatomy. I have re-examined the patient. There are no clinical changes since date of exam.
[2021-12-28] MEDS: Lactated Ringers 1,000 ML 15 ML IV (09:40)
--- NOTE | 2021-12-28 09:58 | SUR.PREOP ---
talked with pt about transportation after surgery- she initially was going home with zulma rahman without an escort- explained she needed a responsible person to go home with her- she initially said she didn't have someone to take her home but than after further discussion she does have a friend to come get her- she called the friend while nurses in the room and he will pick her up
--- NOTE | 2021-12-28 11:26 | RAD_ITS ---
STUDY: ERCP. REASON FOR EXAM: Female, 66 years old. ERCP, DUCT REPLACEMENT FLUOROSCOPY TIME (if supplied): ( 9 minutes and 51 seconds ) minutes/seconds. 2 images were submitted. TECHNIQUE: An ERCP was performed by the tutoring clinician. COMPARISON: None. FINDINGS: Limited imaging demonstrates a dilated common bile duct with multiple filling defects. RAD/ERCP Biliary/Pancreas IMPRESSION: Multiple filling defects in a dilated common bile duct. Electronically Signed: Aiden Curtis MD at 10:00 EDT ,
--- NOTE | 2021-12-28 12:49 | OP.ERCP_ITS ---
Patient Name: Mary Gonzalez Procedure Date: 12/28/2021 10:58 AM Date of : 1955 Age: 66 Procedure: ERCP Indications: Benign stricture of the common bile duct, Chronic recurrent pancreatitis Providers: Abundio Fu DO Referring MD: Rodney Pool Medicines: General Anesthesia, Monitored Anesthesia Care Patient Profile: This is a 66 year old female. Refer to note in patient chart for documentation of history and physical. Patient has symptoms of chronic epigastric abdominal pain. She is status post ERCP for biliary evaluation and ERCP for pancreatic evaluation within the past three years. Complications: No immediate complications. Procedure: Pre-Anesthesia Assessment: - Prior to the procedure, a History and Physical was performed, and patient medications and allergies were reviewed. The patient is competent. The risks and benefits of the procedure and the sedation options and risks were discussed with the patient. All questions were answered and informed consent was obtained. Patient identification and proposed procedure were verified by the physician in the pre-procedure area. Mental Status Examination: alert and oriented. Airway Examination: normal oropharyngeal airway and neck mobility. Respiratory Examination: clear to auscultation. CV Examination: normal. Prophylactic Antibiotics: The patient does not require prophylactic antibiotics. Prior Anticoagulants: The patient has taken no previous anticoagulant or antiplatelet agents. ASA Grade Assessment: II - A patient with mild systemic disease. After reviewing the risks and benefits, the patient was deemed in satisfactory condition to undergo the procedure. The anesthesia plan was to use moderate sedation / analgesia (conscious sedation). Immediately prior to administration of medications, the patient was re-assessed for adequacy to receive sedatives. The heart rate, respiratory rate, oxygen saturations, blood pressure, adequacy of pulmonary ventilation, and response to care were monitored throughout the procedure. The physical status of the patient was re-assessed after the procedure. After obtaining informed consent, the scope was passed under direct vision. Throughout the procedure, the patient's blood pressure, pulse, and oxygen saturations were monitored continuously. The Duodenoscope was introduced through the mouth, and advanced to the duodenum and to cannulate the ventral pancreatic duct. The ERCP was accomplished without difficulty. The ERCP was technically difficult and complex due to challenging cannulation because of papillary stenosis. The patient tolerated the procedure well. Scope In: 11:29:56 AM Scope Out: 12:38:25 PM Total Procedure Duration Time 1 hour 8 minutes 29 seconds Findings: The sports physical therapist film was normal. The esophagus was successfully intubated under direct vision. The scope was advanced to a normal major papilla in the descending duodenum without detailed examination of the pharynx, larynx and associated structures, and upper GI tract. The upper GI tract was grossly normal. The bile duct was deeply cannulated with the short-nosed traction sphincterotome. Contrast was injected. I personally interpreted the bile duct images. There was brisk flow of contrast through the ducts. Image quality was excellent. Contrast extended to the main bile duct. Contrast extended to the pancreatic duct. The biliary orifice was stenotic. This appeared benign. Opacification of the entire biliary tree except for the cystic duct and gallbladder was successful. The maximum diameter of the ducts was 10 mm. The lower third of the main bile duct contained a single localized stenosis 6 mm in length. The main bile duct was moderately dilated, secondary to a stricture. The largest diameter was 10 mm. A straight Roadrunner wire was passed into the biliary tree. A 5 mm biliary sphincterotomy was made with a traction (standard) sphincterotome using ERBE electrocautery. There was no post-sphincterotomy bleeding. The biliary tree was swept with a 15 mm balloon starting at the bifurcation. Sludge was swept from the duct. Deep cannulation of the ventral pancreatic duct was accomplished. The ventral pancreatic duct in the head of the pancreas contained a severe stenosis one mm in length. Dilation of the common bile duct with a 6-7-8 mm balloon (to a maximum balloon size of 6 mm) dilator was successful. Impression: - Biliary papillary stenosis, benign. - A single localized biliary stricture was found in the lower third of the main bile duct. The stricture was inflammatory. - The entire main bile duct was moderately dilated, secondary to a stricture. - A pancreatic duct stricture was found. - A biliary sphincterotomy was performed. - The biliary tree was swept and sludge was found. - Common bile duct was successfully dilated. Procedure Code(s): --- Professional --- 11679, 59, Endoscopic retrograde cholangiopancreatography (ERCP); with trans-endoscopic balloon dilation of biliary/pancreatic duct(s) or of ampulla (sphincteroplasty), including sphincterotomy, when performed, each duct 21741, 51, Endoscopic retrograde cholangiopancreatography (ERCP); with removal of calculi/debris from biliary/pancreatic duct(s) 78499, 26, Endoscopic catheterization of the biliary ductal system, radiological supervision and interpretation CPT copyright 2017 [employer]. All rights reserved. The codes documented in this report are preliminary and upon cage operator review may be revised to meet current compliance requirements. Abundio Fu DO 12/28/2021 12:49:35 PM This report has been signed electronically. Number of Addenda: 0 Note Initiated On: 12/28/2021 10:58 AM
--- NOTE | 2021-12-28 12:50 | OP.CCLET_ITS ---
12/28/2021 Rodney Pool Re : ERCP procedure for Mary Pool This procedure was performed on December. My impressions and recommendations are as follows: Impressions : - Biliary papillary stenosis, benign. - A single localized biliary stricture was found in the lower third of the main bile duct. The stricture was inflammatory. - The entire main bile duct was moderately dilated, secondary to a stricture. - A pancreatic duct stricture was found. - A biliary sphincterotomy was performed. - The biliary tree was swept and sludge was found. - Common bile duct was successfully dilated. Recommendations : My findings are described in the full procedure note, which is enclosed. If I can be of further assistance, please feel free to contact me at . Sincerely, Abundio Fu, 12/28/2021 12:49:35 PM This report has been signed electronically.
== END 2021-12-28 14:38 | disposition home or self-care (01) ==
LOC: EN 09:23 → AC 09:26
PROVIDERS: PCP Family Medicine; Referring Provider Family Medicine; Visit Provider Internal Medicine Gastroenterology
PROC: (CPT 43260; principal; 2021-12-28 10:10)
DX: K86.1 Other chronic pancreatitis (principal); M06.9 Rheumatoid arthritis, unspecified; J44.9 Chronic obstructive pulmonary disease, unspecified; Z87.891 Personal history of nicotine dependence; Z79.899 Other long term (current) drug therapy; E78.00 Pure hypercholesterolemia, unspecified; G25.81 Restless legs syndrome; Z86.73 Personal history of transient ischemic attack (TIA), and cerebral infarction without residual deficits; L40.9 Psoriasis, unspecified; Z90.49 Acquired absence of other specified parts of digestive tract
CPT/HCPCS: 43262; 43264; 74330; 76000; J7120; C1769; J2405

== ENCOUNTER 2022-01-02 15:08 | Emergency (ER) | payer MEDICAID, SELFPAY ==
[2022-01-02 15:09] VITALS: BP 92/54; PULSE 88; RESP 15; TEMP 35.9; O2SAT 98; BMI 22.8
== END 2022-01-02 15:59 | disposition left against medical advice (07) ==
LOC: ED 16:04
PROVIDERS: PCP Family Medicine
DX: Z53.21 Procedure and treatment not carried out due to patient leaving prior to being seen by health care provider (principal)

== ENCOUNTER 2022-01-05 12:07 | Emergency (ER) | payer MEDICAID, SELFPAY ==
[2022-01-05 12:09] VITALS: BP 126/70; PULSE 83; RESP 14; TEMP 36.1; O2SAT 95; BMI 22.8
--- NOTE | 2022-01-05 12:41 | EDS_ITS ---
HPI History of Present Illness Chief Complaint: Abd Pain Informant: patient Narrative Narrative: 66-year-old female presenting to the emergency department with a chief complaint of abdominal pain. Patient has a history of pancreatitis and has had 2 prior pancreatic duct stents placed. The last was performed on [address] Fu here at the hospital. She states that she has not had anything to eat since then because of nausea. She notes continued abdominal pain. She denies any bowel or bladder changes. She notes that she has been trying to drink fluids but her urine is very bubbly and she is not making much of it. She does not know about any fevers. She states that she spoke with Dr. Fu this morning who advised her to come to emergency. [facility] Medical History Abnormal findings on diagnostic imaging of liver and biliary tract Abnormal weight loss Anemia Anxiety Arthritis Back pain Broken back Bulimia Calculus of gallbladder without cholecystitis without obstruction Cardiology follow-up encounter Chest pain Cochlear implant in place COPD (chronic obstructive pulmonary disease) DDD (degenerative disc disease), cervical Easy bruising Former smoker Hepatitis Hepatitis C High cholesterol History of echocardiogram History of irregular heartbeat History of stress test Hx of fracture of nose Idiopathic chronic pancreatitis Injury of back Injury of head and neck Latent tuberculosis Leg cramps Marijuana use Migraine headache Migraines Nicotine dependence Osteoporosis Pancreatic duct stricture Personality disorder Psoriasis Restless legs Rheumatoid arthritis Severe protein-calorie malnutrition Shortness of breath on exertion Steatorrhea, pancreatic Syncope TIA (transient ischemic attack) Wears dentures Wears hearing aid Home Medications alprazolam 1 mg tablet (Xanax) 1 mg PO BID 12/16/13 [History Last Taken 12/04/17 22:00 1 MG] rizatriptan 10 mg tablet 10 mg PO PRN PRN Migraine Headache 05/06/17 [History Last Taken 12/04/17 22:00 10 MG] Ropinirole Hcl [Requip] 1 tab PO QHS RLS 07/23/18 [History Last Taken Unknown] apremilast 30 mg tablet (Otezla) 30 mg PO DAILY psoriasis 08/04/20 [History Last Taken Unknown] atorvastatin 20 mg tablet 20 mg PO QHS cholesterol 08/04/20 [History Last Taken Unknown] calcium carbonate 600 mg-vitamin D3 10 mcg (400 unit) tablet 1 tablet PO DAILY 08/04/20 [History Last Taken Unknown] xwgdzy-ihebwiex-jftfdxc 6,000-19,000-30,000 unit capsule,delayed rel (Creon) 2 capsule PO ACHS 08/04/20 [History Last Taken Unknown] magnesium oxide 400 mg (241.3 mg magnesium) tablet 400 mg PO DAILY 08/04/20 [History Last Taken Unknown] omega-3 fatty acids 1,000 mg capsule 2 tablet PO BID 08/04/20 [History Last Nestor en Unknown] abatacept 125 mg/mL subcutaneous syringe 125 mg subcut QWEEK 07/28/21 [History Last Taken Unknown] quetiapine 100 mg tablet 100 mg PO QHS RLS 07/28/21 [History Last Taken Unknown] albuterol sulfate 2.5 mg/3 mL (0.083 %) solution for nebulization 3 mg inhalation Q4H PRN PRN Wheezing 08/11/21 [History Last Taken Unknown] bacitracin zinc 500 unit/gram topical ointment 1 applic topical DAILY 08/11/21 [History Last Taken Unknown] benzonatate 100 mg capsule 100 mg PO TID PRN Cough 08/11/21 [History Last Taken Unknown] betamethasone, augmented 0.05 % topical ointment (Diprolene (augmented)) 1 applic topical DAILY 08/11/21 [History Last Taken Unknown] nicotine 10 mg inhalation cartridge (Nicotrol) 1 inh inhalation 4X/DAY 08/11/21 [History Last Taken Unknown] tretinoin 0.025 % topical gel (Retin-A) 1 applic topical QHS 08/11/21 [History Last Taken Unknown] losartan 50 mg tablet 25 mg PO DAILY PRN elevated BP 11/08/21 [History Last Taken Unknown] oxycodone 10 mg tablet 10 mg PO BID PRN pain 10 days #20 tabs 12/29/21 [Rx Last Taken Unknown] Allergy/AdvReac Type Severity Reaction Status Date / Time bupropion Allergy Other Verified 01/05/22 13:27 codeine Allergy Hives Verified 01/05/22 13:27 gabapentin Allergy Other Verified 01/05/22 13:27 oxaprozin [From Daypro] Allergy Hives Verified 01/05/22 13:27 oxybutynin Allergy Unknown Verified 01/05/22 13:27 pentazocine [From Talwin] Allergy Itching Verified 01/05/22 13:27 pentazocine lactate Allergy Itching Verified 01/05/22 13:27 [From Talwin] propoxyphene HCl Allergy Hives Verified 01/05/22 13:27 [From Darvon] propoxyphene napsylate Allergy Hives Verified 01/05/22 13:27 [From Darvocet-N 100] rofecoxib [From Vioxx] Allergy Rash Verified 01/05/22 13:27 tramadol HCl [From Ultram] Allergy Upset Verified 01/05/22 13:27 Stomach cyclobenzaprine HCl AdvReac Upset Verified 01/05/22 13:27 [From Flexeril] Stomach hydrocodone AdvReac Other Verified 01/05/22 13:27 venlafaxine HCl AdvReac Upset Verified 01/05/22 13:27 [From Effexor] Stomach PINE Allergy Hives Uncoded 01/05/22 13:27 Family History Mother CVA (cerebral vascular accident) Hypertension Father Cancer Diabetes Sister Thyroid disorder Surgical History H/O section History of back surgery History of bladder surgery History of cochlear implant History of colonoscopy History of ERCP History of kyphoplasty History of mandibular surgery History of nasal surgery History of repair of cleft lip History of rotator cuff surgery History of tracheostomy Hx of cholecystectomy Hx of LASIK Hx of neck surgery Hx of tubal ligation Social History Smoking Status: Former smoker quit date: 06/02/17 pack-years: 30 alcohol intake: never ROS ROS ED Constitutional Constitutional ED: Denies chills, fever(s) or weight loss Eyes Eyes: Denies change in vision or diplopia ENT ENT ED: Denies ear pain, rhinorrhea or sore throat Cardiovascular Cardiovascular: Denies chest pain, orthopnea, palpitations or racing heartbeat Respiratory/Chest Respiratory/Chest: Denies cough, dyspnea or orthopnea Gastrointestinal Gastrointestinal: Reports abdominal pain and nausea; Denies diarrhea or vomiting Genitourinary Genitourinary ED: Denies dysuria, hematuria or urinary frequency Musculoskeletal Musculoskeletal: Denies arthralgias or myalgias Integumentary Denies abscess or rash Neurologic Neurologic: Denies headache(s) or weakness Psychiatric Psychiatric: Denies anxiety, depression, suicidal ideation or suicidal thoughts Endocrine Endocrinology: Denies polydipsia, polyphagia or polyuria Allergic/Immunologic Allergic/Immunologic ED: Denies mouth swelling, tongue swelling or urticaria EXAM Physical Exam Const Vital Signs: 01/05/22 12:09 01/05/22 13:26 01/05/22 14:12 Temperature 96.9 F L 97.4 F L Temperature Source Temporal Temporal Pulse Rate 83 79 74 Respiratory Rate 14 18 16 Blood Pressure 126/70 H 128/70 H 124/71 H Blood Pressure Mean 88 89 88 Pulse Ox 95 98 99 Oxygen Delivery Method Room Air Room Air Positive well nourished and well developed General Appearance ED: well developed HEENT Reports normocephalic, head/scalp atraumatic and moist mucous membranes Eyes PERRL and EOMs intact bilaterally Neck no lymphadenopathy, supple and no JVD Resp normal respiratory effort and clear to auscultation bilaterally Cardio regular rate, regular rhythm and no murmurs GI Inspection: Negative for abdominal distention Auscultation: normoactive bowel sounds Palpation: soft, tender epigastric and guarding; Negative for rebound tenderness present Back/Spine no CVA tenderness and normal ROM Extremity normal to inspection General Extremety ED: Negative for edema General Extremity: Negative for edema Neuro oriented x3 and CN's II-XII intact bilaterally Sensorium / Orientation: alert Motor Exam: strength 5/5 throughout Psych mental status grossly normal Mood & Affect: Negative for depressed or tearful Skin no rashes or lesions noted and no wounds MDM MDM MDM Narrative Medical decision making narrative: White count elevated 14.3. Lipase is elevated at 1183. Amylase 203. Transaminases are slightly elevated with an AST of 67 and ALT of 58. However total bilirubin is 0.5 with a direct bilirubin of 0.16. Alk phos normal at 107. Patient received IV fluids Dilaudid and Zofran. CT was obtained read by ravin santamaria reviewed by myself. While awaiting the CT results I administered Zosyn and off of my wet read. I discussed with the radiologist regarding the results. We are concerned about an intra-abdominal abscess/phlegmon around the lower portions of the duodenum and near the hepatic flexure of the large intestine. I reviewed the CT with Dr. Fu who also reviewed it. Dr. Fu is concerned t hat the patient may require a tertiary care facility. I spoke with the patient and she states she has been to [facility] in the past and would like to go there again today. I ordered a lactic acid which returned at 0.6 as well as blood cultures which were obtained prior to the administration of antibiotics. The patient was excepted [facility] ED to ED transfer by Dr. Adair who is on-call for surgery. I also spoke with Dr. Garcia from the emergency department. Lab Data Attestation: I reviewed the patient's lab results. Labs: Laboratory Results - last 24 hr 01/05/22 01/05/22 01/05/22 12:21 12:21 14:59 WBC 14.3 H RBC 4.17 L Hgb 14.2 Hct 42.0 MCV 100.7 H MCH 34.1 H MCHC 33.8 RDW Std Deviation 55.4 H RDW Coeff of Fidelina 14.7 H Plt Count 349 MPV 10.3 Immature Gran % (Auto) 0.800 Neut % (Auto) 80.6 H Lymph % (Auto) 11.0 L [place] % (Auto) 7.1 Eos % (Auto) 0.1 Baso % (Auto) 0.4 Absolute Neuts (auto) 11.5 H Absolute Lymphs (auto) 1.58 Nucleated RBC % 0 Sodium 134 L Potassium 3.4 L Chloride 94 L Carbon Dioxide 28.0 Anion Gap 12 BUN 19 H Creatinine 0.91 Estim Creat Clear Calc 53.93 Est GFR (MDRD) Af Amer 80 Est GFR (MDRD) Non-Af 66 BUN/Creatinine Ratio 20.8 H Glucose 114 H Lactic Acid 0.6 Calcium 9.3 Total Bilirubin 0.50 Direct Bilirubin 0.16 AST 67 H ALT 58 H Alkaline Phosphatase 107 Total Protein 7.5 Albumin 2.8 L Globulin 4.7 H Amylase 203 H Lipase 1183 H Radiography Diagnostic Testing: Clinical Impression(s) from Imaging Studies Abdomen/Pelvis CT 01/05/22 14:06 IMPRESSION: Suspect colitis of the hepatic flexure the colon with surrounding inflammation with adherent loops of small bowel in a 2.5 cm fluid collection which may represent a duodenal diverticulum or phlegmon. Electronically Signed: Guillermo Martin MD at 14:43 EDT , ADDENDUM: 01/05/22 1505 IMPRESSION: Suspect colitis of the hepatic flexure the colon with surrounding inflammation with adherent loops of small bowel in a 2.5 cm fluid collection which may represent a duodenal diverticulum or phlegmon. N.B. : The above Results were Read Back by Guillermo Martin MD to Dr. Rodri Pond MD, and understanding confirmed on 01/05/2022 14:58:17 (ET). Electronically Signed: Guillermo Martin MD at 14:43 EDT , Discharge Plan Dx/Rx/DC Orders Clinical Impression: Pancreatitis, Chronic obstructive lung disease, Hyperlipidemia, Rheumatoid arthritis, Abdominal pain, acute, Intra-abdominal abscess Disposition Disposition: Acute Care [facility]
[2022-01-05] MEDS: 0.9% Normal Saline 1,000 ML 1000 ML IV (12:49)
[2022-01-05] MEDS: Ondansetron 4 MG/2 ML Vial IV (12:49)
[2022-01-05] MEDS: HYDROmorphone 1 MG/ML Syringe 0.5 MG IV (12:49)
[2022-01-05 12:50] LABS: Absolute Lymphocyte Count 1.58 X10^3/uL (0.83-4.51); Absolute Neutrophil Count 11.5 X10^3/uL (2.0-7.7); Basophil# 0.06 X10^3/uL; Basophil% 0.4 % (0-1); Eosinophil# 0.02 X10^3/uL; Eosinophils% 0.1 % (0-5); Hemoglobin 14.2 g/dL (12.0-15.0); Lymphocyte # 1.58 X10^3/ul (0.83-4.51); Mean Corp Hgb Conc 33.8 g/dL (32-36); Mean Corpuscular Hgb 34.1 pg (27.0-32.0); Mean Corpuscular Volume 100.7 fL (81-99); Mean Platelet Vol. 10.3 fl (6.2-12.0); Monocyte# 1.02 X10^3/uL; Monocyte% 7.1 % (0-10); NRBC Flagged by Analyzer 0 % (0-5); Neutrophil % 80.6 % (47-70); Platelet Count 349 K/mm3 (150-450); RBC Distribution Width CV 14.7 % (11.6-14.6); RBC Distribution Width SD 55.4 fl (35.1-43.9); Red Blood Count 4.17 M/mm3 (4.2-5.4); White Blood Count 14.3 K/mm3 (4.4-11.0)
[2022-01-05 13:05] LABS: AST(SGOT) 67 U/L (15-37); Alanine Aminotransfer ALT/SGPT 58 U/L (13-56); Albumin, Serum 2.8 g/dL (3.2-5.0); Alkaline Phosphatase 107 U/L (45-117); Amylase 203 U/L (25-115); Anion Gap 12 (5-15); BUN 19 mg/dL (7-18); BUN/Creat Ratio 20.8 RATIO (10-20); Bilirubin, Direct 0.16 mg/dL (0.00-0.30); Calcium,Total 9.3 mg/dL (8.5-10.1); Chloride 94 mmol/L (98-107); Creatinine, Serum 0.91 mg/dL (0.55-1.02); EST Glomerular Filtration Rate 66 mL/min (>60); Est Glom Filt Rate - Afr Amer 80 mL/min (>60); Estimated Creatinine Clearance 53.93 ml/min; Globulin 4.7 g/dL (2.2-4.2); Glucose 114 mg/dL (74-106); Lipase 1183 U/L (73-393); Potassium 3.4 mmol/L (3.5-5.1); Protein, Total 7.5 g/dL (6.4-8.2); Sodium Level 134 mmol/L (136-145)
[2022-01-05 13:26] VITALS: BP 128/70; PULSE 79; RESP 18; TEMP 36.3; O2SAT 98
--- NOTE | 2022-01-05 14:06 | CT_ITS ---
We are attempting to reach an attending provider to discuss findings. An addendum with communication details will be sent when the communication is complete. STUDY: CT ABDOMEN AND PELVIS WITH CONTRAST REASON FOR EXAM: Female, 66 years old. pancreatitis RADIATION DOSAGE (If Supplied By Facility): CTDIvol = ( 17.39 ) mGy, DLP = ( 532.38 ) mGycm TECHNIQUE: Transaxial images were obtained from the dome of the diaphragm to the symphysis pubis without oral contrast. IV 100mL Isovue-370 was administered. Sagittal and coronal images were reconstructed. Individualized dose optimization techniques were used for this CT. COMPARISON: 07/24/2021 FINDINGS: Some dependent bibasilar atelectasis. The visualized portions of the heart are within normal limits. Normal liver. There are surgical clips in the gallbladder fossa consistent with a prior cholecystectomy. Normal spleen. Normal pancreas. Moderate pancreatic ductal dilatation including a prominent accessory pancreatic duct. Normal bilateral adrenal glands. Normal right kidney. Normal left kidney. Normal visualized stomach. Normal small intestine. Wall thickening of the hepatic flexure the colon with stranding of the surrounding fat and matting of the adjacent loops of small bowel. There is a 2.5 cm round collection of fluid and gas anterior to the third portion of the duodenum which may represent a duodenal diverticulum or phlegmon from the inflammation. The appendix is visualized and appears normal. Normal abdominal aorta. Normal inferior vena cava. Normal retroperitoneum. Normal urinary bladder. Normal abdominal wall. Mild dextro scoliosis of the lumbar spine with degenerative disc disease. Chronic compression fractures of the T12 and L1 with vertebroplasty of L1. CT/Abdomen/Pelvis W IV Cont ONLY IMPRESSION: Suspect colitis of the hepatic flexure the colon with surrounding inflammation with adherent loops of small bowel in a 2.5 cm fluid collection which may represent a duodenal diverticulum or phlegmon. Electronically Signed: Guillermo Martin MD at 14:43 EDT ,
[2022-01-05 14:12] VITALS: BP 124/71; PULSE 74; RESP 16; O2SAT 99
--- NOTE | 2022-01-05 15:31 | NURSING ---
FAXED FACESHEET TO [facility]
[2022-01-05 15:33] LABS: Lactic Acid 0.6 mmol/L (0.4-1.9)
--- NOTE | 2022-01-05 15:39 | NURSING ---
CALLED [facility], ETA IS 20 MIN
[2022-01-05 15:41] VITALS: BP 122/75; PULSE 78; RESP 16; TEMP 36.5; O2SAT 98
--- NOTE | 2022-01-05 15:45 | ED.RN ---
Addendum entered by Martina Juarez 01/05/22 16:00: PT REPORTS IV SITE TENDER. SWELLING AND FIRM. APPEARS INFILTRATED. IV ACCESS REMOVED AND ATTEMPTING TO OBTAIN IV NEW ACCESS Original Note: ATTEMPTING
--- NOTE | 2022-01-05 16:00 | NURSING ---
CALLED NEED A MEDIC [facility]. ETA IS 1830. WILL BE THE 1800 CREW FROM [place]
[2022-01-05] MEDS: HYDROmorphone 0.5 MG/0.5 ML SYRINGE IV ×2 (16:07→18:57)
[2022-01-05] MEDS: 0.9% Normal Saline 1,000 ML 250 ML IV ×2 (16:09→19:44)
[2022-01-05 18:18] VITALS: BP 132/74; PULSE 87; RESP 16; O2SAT 98
[2022-01-05 19:27] VITALS: BP 116/74; PULSE 75; RESP 18; TEMP 36.7; O2SAT 100
== END 2022-01-05 20:42 | disposition short-term general hospital (02) ==
LOC: ED 13:10
PROVIDERS: Emergency Provider Emergency Medicine; PCP Family Medicine; Visit Provider Emergency Medicine
DX: K65.1 Peritoneal abscess (principal); M06.9 Rheumatoid arthritis, unspecified; J44.9 Chronic obstructive pulmonary disease, unspecified; K86.1 Other chronic pancreatitis; F41.9 Anxiety disorder, unspecified; M50.30 Other cervical disc degeneration, unspecified cervical region; E78.5 Hyperlipidemia, unspecified; M81.0 Age-related osteoporosis without current pathological fracture; L40.9 Psoriasis, unspecified; Z86.73 Personal history of transient ischemic attack (TIA), and cerebral infarction without residual deficits; G25.81 Restless legs syndrome; Z87.891 Personal history of nicotine dependence; Z87.19 Personal history of other diseases of the digestive system; Z79.899 Other long term (current) drug therapy
CPT/HCPCS: 74177; 80048; 80076; 82150; 83605; 83690; 85025; 87040; 96361; 96365; 96375; 96376; 99284; Q9967; J2405

== ENCOUNTER 2022-01-14 15:47 | Emergency (ER) | payer MEDICAID, SELFPAY ==
[2022-01-14] VITALS (7 sets, daily range): BP systolic 130–156; BP diastolic 63–80; PULSE 71–88; RESP 18–24; TEMP 36.6–36.8; O2SAT 88–95; BMI 22.3
--- NOTE | 2022-01-14 16:07 | CT_ITS ---
STUDY: CT Abdomen And Pelvis W/ Contrast Injection 01/14/2022 5:48 PM REASON FOR EXAM: Female, 66 years old. ABDOMINAL PAIN abdominal abscess Technologist Notes has SANDRA drain from wound to abdomen (surgery with Dr. Fu for pancreatic stent, and transferred to [facility])- reports drain not draining. Some confusion noted in triage. Patient has a history of pancreatitis and has had 2 prior pancreatic duct stents placed. TECHNIQUE: Transaxial images were obtained without oral contrast, and with IV 100mL Isovue-300 intravenous contrast. Individualized dose optimization techniques were used for this CT. COMPARISON: 01/05/2022 FINDINGS: There is bilateral pneumonia. There are bilateral pleural effusions. There is periportal edema noted. There are surgical clips in the gallbladder fossa consistent with a prior cholecystectomy. Unremarkable spleen. Intrahepatic biliary dilation is stable. Stable heterogeneous area in the left lobe of the liver. There is an abscess around the pancreas. There is a pig tail drain in the abscess that measures 26 mm. There is a 2nd lobulated abscess that measures 55 x 12. There is a stable curvilinear portion of the abscess along the inferior edge of the right lobe of the liver. Unremarkable bilateral adrenal glands. No acute findings of the right kidney. No acute findings of the left kidney. Unremarkable visualized stomach. Unremarkable small intestine. There are multiple colonic diverticula consistent with diverticulosis. There is non-visualization of the appendix. Stable mural wall thickening of the cecum and ascending colon. This may suggest a mild colitis. There are calcifications of the abdominal aorta. This is consistent for atherosclerotic disease. There is no abdominal aortic aneurysm. Unremarkable inferior vena cava. Subcentimeter mesenteric lymph nodes. Stable retrocardiac adenopathy. Unremarkable urinary bladder. There is an umbilical hernia containing fat. There are diffuse degenerative changes of the visualized lumbar spine. Kyphoplasty changes at L1. CT/Abdomen/Pelvis W IV Cont ONLY IMPRESSION: (NOT LISTED IN ORDER OF SIGNIFICANCE) Single pigtail drain noted in the pancreatic abscess. Stable appearance of the larger nondrained abscess surrounding the pancreas. There are bilateral pleural effusions. There is bilateral pneumonia. Stable mural wall thickening of the cecum and ascending colon. This may suggest a mild colitis. Other findings as above. Electronically Signed: Rod More MD at 17:55 EDT ,
--- NOTE | 2022-01-14 16:10 | RAD_ITS ---
STUDY: X-RAY CHEST REASON FOR EXAM: Female, 66 years old. shortness of breath TECHNIQUE: XR Chest 1 View COMPARISON: 7. FINDINGS: There is atherosclerotic calcification of the aortic arch with tortuosity. There are diffuse degenerative changes of the visualized thoracic spine. There is degenerative osteoarthritis of the bilateral shoulders. There are bilateral pleural effusions. Normal size heart. Normal mediastinum and blair. Normal visualized pulmonary arteries. There is no demonstrated abnormality of the visualized soft tissue structures of the upper abdomen. RAD/Chest 1 View (Portable) IMPRESSION: There are bilateral pleural effusions. Electronically Signed: Rod More MD at 16:30 EDT ,
[2022-01-14] MEDS: 0.9% Normal Saline 1,000 ML 1000 ML IV (16:30)
[2022-01-14 16:49] LABS: Absolute Lymphocyte Count 1.82 X10^3/uL (0.83-4.51); Absolute Neutrophil Count 8.7 X10^3/uL (2.0-7.7); Basophil# 0.03 X10^3/uL; Basophil% 0.3 % (0-1); Eosinophil# 0.02 X10^3/uL; Eosinophils% 0.2 % (0-5); Hematocrit 36.9 % (37-47); Hemoglobin 11.6 g/dL (12.0-15.0); Lymphocyte # 1.82 X10^3/ul (0.83-4.51); Lymphocyte % 15.9 % (19-41); Mean Corp Hgb Conc 31.4 g/dL (32-36); Mean Corpuscular Hgb 31.9 pg (27.0-32.0); Mean Corpuscular Volume 101.4 fL (81-99); Mean Platelet Vol. 10.4 fl (6.2-12.0); Monocyte# 0.83 X10^3/uL; Monocyte% 7.2 % (0-10); NRBC Flagged by Analyzer 0 % (0-5); Neutrophil # 8.67 X10^3/uL (2.7-7.7); Neutrophil % 75.7 % (47-70); Platelet Count 449 K/mm3 (150-450); RBC Distribution Width CV 15.3 % (11.6-14.6); RBC Distribution Width SD 57.3 fl (35.1-43.9); Red Blood Count 3.64 M/mm3 (4.2-5.4); White Blood Count 11.5 K/mm3 (4.4-11.0)
[2022-01-14 16:56] LABS: AST(SGOT) 32 U/L (15-37); Alanine Aminotransfer ALT/SGPT 20 U/L (13-56); Albumin, Serum 2.1 g/dL (3.2-5.0); Alkaline Phosphatase 62 U/L (45-117); Anion Gap 7 (5-15); BUN 11 mg/dL (7-18); BUN/Creat Ratio 17.9 RATIO (10-20); Bilirubin, Direct 0.12 mg/dL (0.00-0.30); Calcium,Total 8.6 mg/dL (8.5-10.1); Chloride 102 mmol/L (98-107); Creatinine, Serum 0.62 mg/dL (0.55-1.02); EST Glomerular Filtration Rate 104 mL/min (>60); Est Glom Filt Rate - Afr Amer 126 mL/min (>60); Estimated Creatinine Clearance 79.16 ml/min; Glucose 115 mg/dL (74-106); Potassium 3.2 mmol/L (3.5-5.1); Protein, Total 6.1 g/dL (6.4-8.2); Sodium Level 142 mmol/L (136-145)
[2022-01-14 17:33] LABS: Lipase 197 U/L (73-393)
[2022-01-14 17:42] LABS: Ammonia < 10.0 umol/L (11-32); BNP,B-Type NATRIURETIC PEPTIDE 430.2 pg/mL (0-100)
--- NOTE | 2022-01-14 18:06 | NURSING ---
DR VILLA FOR DR WALTON
--- NOTE | 2022-01-14 18:15 | NURSING ---
CALLED [facility] FOR TRANSFER. TALKED TO VIDYA. SHE IS TALKING TO ICE BAG ASSEMBLER CALLED RADIOLOGY TO TRANSMIT RADS AND CTS
[2022-01-14] MEDS: Potassium Chloride Oral Tablet 20 MEQ 40 MEQ PO (19:01)
--- NOTE | 2022-01-14 19:05 | NURSING ---
PT UP TO [facility] UNABLE TO URINATE
--- NOTE | 2022-01-14 19:29 | EDS_ITS ---
HPI <SLICK Rincon - Last Filed: 01/14/22 19:37> History of Present Illness Chief Complaint: Wound Check Narrative Narrative: 66-year-old female with history of chronic pancreatitis, hypertension, COPD, TIA presents to the emergency department with weakness, confusion, coughing. Patient on 07 January had a drain placed via radiology to decrease abdominal abscess surrounding the pancreas. Patient went to Dr. Fu's office today to follow-up, however it was Saturday so the office was closed, she believe that that was Saturday. Patient was also hypoxic on arrival to the emergency department. Patient states that she has generally feels wiped out. She has nothing but sleeping all day, she also complains of a cough. Patient also states that she is unable to flush one of her drains. [facility] <SLICK Rincon - Last Filed: 01/14/22 19:37> [facility] Medical History Abnormal findings on diagnostic imaging of liver and biliary tract Abnormal weight loss Anemia Anxiety Arthritis Back pain Broken back Bulimia Calculus of gallbladder without cholecystitis without obstruction Cardiology follow-up encounter Chest pain Cochlear implant in place COPD (chronic obstructive pulmonary disease) DDD (degenerative disc disease), cervical Easy bruising Former smoker Hepatitis Hepatitis C High cholesterol History of echocardiogram History of irregular heartbeat History of stress test Hx of fracture of nose Idiopathic chronic pancreatitis Injury of back Injury of head and neck Latent tuberculosis Leg cramps Marijuana use Migraine headache Migraines Nicotine dependence Osteoporosis Pancreatic duct stricture Personality disorder Psoriasis Restless legs Rheumatoid arthritis Severe protein-calorie malnutrition Shortness of breath on exertion Steatorrhea, pancreatic Syncope TIA (transient ischemic attack) Wears dentures Wears hearing aid Home Medications alprazolam 1 mg tablet (Xanax) 1 mg PO BID 12/16/13 [History Last Taken 01/04/22] rizatriptan 10 mg tablet 10 mg PO PRN PRN Migraine Headache 05/06/17 [History Last Taken 01/03/22] apremilast 30 mg tablet (Otezla) 30 mg PO DAILY psoriasis 08/04/20 [History Last Taken 2 Days Ago ~01/03/22] calcium carbonate 600 mg-vitamin D3 10 mcg (400 unit) tablet 1 tablet PO DAILY SUPPLEMENT 08/04/20 [History Last Taken 01/03/22] otwpht-wuvndbzw-seqkich 6,000-19,000-30,000 unit capsule,delayed rel (Creon) 2 capsule PO ACHS 08/04/20 [History Last Taken Unknown] magnesium oxide 400 mg (241.3 mg magnesium) tablet 400 mg PO DAILY SUPPLEMENT 08/04/20 [History Last Taken 01/04/22] omega-3 fatty acids 1,000 mg capsule 2,000 mg PO DAILY 08/04/20 [History Last Taken 01/04/22] abatacept 125 mg/mL subcutaneous syringe 125 mg subcut FR 07/28/21 [History Last Taken 12/22/21] albuterol sulfate 2.5 mg/3 mL (0.083 %) solution for nebulization 3 mg inhalation Q4H PRN PRN Wheezing 08/11/21 [History Last Taken 3 Weeks Ago ~12/15/21] bacitracin zinc 500 unit/gram topical ointment 1 applic topical DAILY PRN Skin Cleansing 08/11/21 [History Last Taken 01/04/22] benzonatate 100 mg capsule 100 mg PO TID PRN Cough 08/11/21 [History Last Taken 2 Weeks Ago ~12/22/21] betamethasone, augmented 0.05 % topical ointment (Diprolene (augmented)) 1 applic topical DAILY SKIN 08/11/21 [History Last Taken 01/03/22] nicotine 10 mg inhalation cartridge (Nicotrol) 1 inh inhalation 4X/DAY PRN Smoking Cessation 08/11/21 [History Last Taken 01/05/22] tretinoin 0.025 % topical gel (Retin-A) 1 applic topical QHS PSORIASIS 08/11/21 [History Last Taken 1 Week Ago ~12/29/21] losartan 50 mg tablet 25 mg PO DAILY PRN elevated BP 11/08/21 [History Last Taken 2 Weeks Ago ~12/22/21] atorvastatin 40 mg tablet 20 mg PO QHS cholesterol 01/05/22 [History Last Taken Unknown] ergocalciferol (vitamin D2) 1,250 mcg (50,000 unit) capsule (Vitamin D2) 1,250 mcg PO FR SUPPLEMENT 01/05/22 [History Last Taken 12/22/21] quetiapine 200 mg tablet 100 mg PO QHS RLS 01/05/22 [History Last Taken 12/26/21] ropinirole 1 mg tablet 1 mg PO QHS RLS 01/05/22 [History Last Taken 12/26/21] oxycodone 10 mg tablet 10 mg PO Q8H PRN pain 14 days #30 tabs 01/10/22 [Rx Last Taken Unknown] Allergy/AdvReac Type Severity Reaction Status Date / Time bupropion Allergy Other Verified 01/14/22 15:48 codeine Allergy Hives Verified 01/14/22 15:48 gabapentin Allergy Other Verified 01/14/22 15:48 oxaprozin [From Daypro] Allergy Hives Verified 01/14/22 15:48 oxybutynin Allergy Unknown Verified 01/14/22 15:48 pentazocine [From Talwin] Allergy Itching Verified 01/14/22 15:48 pentazocine lactate Allergy Itching Verified 01/14/22 15:48 [From Talwin] propoxyphene HCl Allergy Hives Verified 01/14/22 15:48 [From Darvon] propoxyphene napsylate Allergy Hives Verified 01/14/22 15:48 [From Darvocet-N 100] rofecoxib [From Vioxx] Allergy Rash Verified 01/14/22 15:48 tramadol HCl [From Ultram] Allergy Upset Verified 01/14/22 15:48 Stomach cyclobenzaprine HCl AdvReac Upset Verified 01/14/22 15:48 [From Flexeril] Stomach hydrocodone AdvReac Other Verified 01/14/22 15:48 venlafaxine HCl AdvReac Upset Verified 01/14/22 15:48 [From Effexor] Stomach PINE Allergy Hives Uncoded 01/14/22 15:48 Family History Mother CVA (cerebral vascular accident) Hypertension Father Cancer Diabetes Sister Thyroid disorder Surgical History H/O section History of back surgery History of bladder surgery History of cochlear implant History of colonoscopy History of ERCP History of kyphoplasty History of mandibular surgery History of nasal surgery History of repair of cleft lip History of rotator cuff surgery History of tracheostomy Hx of cholecystectomy Hx of LASIK Hx of neck surgery Hx of tubal ligation Social History Smoking Status: Former smoker quit date: 06/02/17 pack-years: 30 alcohol intake: never ROS <SLICK Rincon - Last Filed: 01/14/22 19:37> ROS ED ROS Narrative Constitutional: Negative for fever, chills, weight loss, weakness Eyes: Negative for vision loss, vision change, double vision ENT: Negative for any sore throat, ear pain, congestion Cardiovascular: Negative for any chest pain, tightness, palpitations Respiratory: Negative for any sputum production, hemoptysis, dyspnea, dyspnea on exertion, orthopnea. Positive for cough Gastrointestinal: Negative for any abdominal pain, nausea, vomiting, diarrhea, constipation, blood in stool, blood in vomit. Patient does have 2 drains placed, patient states that the 1 SANDRA drain is not draining as well, she also complains of inability to flush one of her drains : Negative for any urinary frequency, dysuria, retention, blood in urine Muscle skeletal: Negative for any muscle joint pain, stiffness, myalgias, arthralgias, neck pain, back pain Neurological: Negative for any headache, syncope, numbness or tingling, dizziness Skin: Negative for any rashes, lumps, itching, abrasions, lacerations Psychiatric: Negative for any depression, anxiety, stress, suicidal ideation, homicidal ideation Hematologic: Negative for any easy bruising, excessive bruising, easy bleeding Allergies: Negative for any eczema, hives, rash EXAM <SLICK Rincon - Last Filed: 01/14/22 19:37> Physical Exam Narrative Exam Narrative: Vital signs reviewed. Patient was hypoxic on initial exam, patient was placed on 2 L nasal cannula. HEET: Head normocephalic atraumatic, TMs clear bilaterally. Posterior pharynx is clear, dry mucous membranes. Nares clear bilaterally. Neck: Supple with no lymphadenopathy or tenderness. No signs of meningismus, negative jolt sign. Cardiac: Regular rate and rhythm no murmurs gallops or rubs, equal peripheral pulses bilaterally. Respiratory: Patient has rhonchorous breath sounds, crackles throughout pulmonary exam. No chest tenderness. Patient does have a harsh cough however is unable to bring up any sputum Abdomen: Soft, nontender, nondistended. No abdominal bruit or pulsatile masses. No hepatosplenomegaly. Patient has 2 drains, patient's abdomen is nontender, both drains seem to be functioning. The drain that she is supposed to flush, I was able flushed with ease, I believe the patient did not know how to work the stopcock. Extremities: No peripheral edema, no signs of gross trauma or deformity. Active full range of motion of all extremities. Neuro: Cranial nerves II through XII intact, no focal neurological deficits. Skin: Clean dry and intact with no rash, purpura, petechiae, vesicles or pustules. Backs/flank: No CVA tenderness, no midline spinal tenderness, no deformity. Psych: Normal mood and affect. No SI, HI or acute psychosis. Const Vital Signs: 01/14/22 15:48 01/14/22 16:05 01/14/22 16:07 Temperature 98.2 F 98.3 F Temperature Source Temporal Temporal Pulse Rate 88 83 76 Respiratory Rate 18 22 H 22 H Blood Pressure 131/63 H 130/74 H 130/74 H Blood Pressure Mean 85 92 92 Pulse Ox 88 95 94 Oxygen Delivery Method Room Air Nasal Cannula Nasal Cannula Oxygen Flow Rate (L/min) 2 2 01/14/22 17:53 01/14/22 17:55 01/14/22 19:03 Temperature 97.9 F 97.9 F 98.2 F Temperature Source Temporal Temporal Temporal Pulse Rate 77 77 71 Respiratory Rate 18 24 H 18 Blood Pressure 153/73 H 153/77 H 147/80 H Blood Pressure Mean 99 102 102 Pulse Ox 92 92 95 Oxygen Delivery Method Nasal Cannula Nasal Cannula Room Air Oxygen Flow Rate (L/min) 2 2 <Dr. Thomas Sylvester, DO - Last Filed: 01/14/22 20:47> Physical Exam Const Vital Signs: 01/14/22 15:48 01/14/22 16:05 01/14/22 16:07 Temperature 98.2 F 98.3 F Temperature Source Temporal Temporal Pulse Rate 88 83 76 Respiratory Rate 18 22 H 22 H Blood Pressure 131/63 H 130/74 H 130/74 H Blood Pressure Mean 85 92 92 Pulse Ox 88 95 94 Oxygen Delivery Method Room Air Nasal Cannula Nasal Cannula Oxygen Flow Rate (L/min) 2 2 01/14/22 17:53 01/14/22 17:55 01/14/22 19:03 Temperature 97.9 F 97.9 F 98.2 F Temperature Source Temporal Temporal Temporal Pulse Rate 77 77 71 Respiratory Rate 18 24 H 18 Blood Pressure 153/73 H 153/77 H 147/80 H Blood Pressure Mean 99 102 102 Pulse Ox 92 92 95 Oxygen Delivery Method Nasal Cannula Nasal Cannula Room Air Oxygen Flow Rate (L/min) 2 2 MDM <Bobo Amezcua ELECTRICAL PROJECT ENGINEER-C - Last Filed: 01/14/22 19:37> MDM Lab Data Attestation: I reviewed the patient's lab results. Labs: Laboratory Results - last 24 hr 01/14/22 01/14/22 01/14/22 16:30 16:30 16:30 WBC 11.5 H RBC 3.64 L Hgb 11.6 L Hct 36.9 L MCV 101.4 H MCH 31.9 MCHC 31.4 L RDW Std Deviation 57.3 H RDW Coeff of Fidelina 15.3 H Plt Count 449 MPV 10.4 Immature Gran % (Auto) 0.700 Neut % (Auto) 75.7 H Lymph % (Auto) 15.9 L [place] % (Auto) 7.2 Eos % (Auto) 0.2 Baso % (Auto) 0.3 Absolute Neuts (auto) 8.7 H Absolute Lymphs (auto) 1.82 Nucleated RBC % 0 Sodium 142 Potassium 3.2 L Chloride 102 Carbon Dioxide 33.0 H Anion Gap 7 BUN 11 Creatinine 0.62 Estim Creat Clear Calc 79.16 Est GFR (MDRD) Af Amer 126 Est GFR (MDRD) Non-Af 104 BUN/Creatinine Ratio 17.9 Glucose 115 H Lactic Acid Calcium 8.6 Total Bilirubin 0.30 Direct Bilirubin 0.12 AST 32 ALT 20 Alkaline Phosphatase 62 Ammonia < 10.0 L B-Natriuretic Peptide 430.2 H Total Protein 6.1 L Albumin 2.1 L Globulin 4.0 Lipase 01/14/22 01/14/22 16:30 16:30 WBC RBC Hgb Hct MCV MCH MCHC RDW Std Deviation RDW Coeff of Fidelina Plt Count MPV Immature Gran % (Auto) Neut % (Auto) Lymph % (Auto) [place] % (Auto) Eos % (Auto) Baso % (Auto) Absolute Neuts (auto) Absolute Lymphs (auto) Nucleated RBC % Sodium Potassium Chloride Carbon Dioxide Anion Gap BUN Creatinine Estim Creat Clear Calc Est GFR (MDRD) Af Amer Est GFR (MDRD) Non-Af BUN/Creatinine Ratio Glucose Lactic Acid 1.0 Calcium Total Bilirubin Direct Bilirubin AST ALT Alkaline Phosphatase Ammonia B-Natriuretic Peptide Total Protein Albumin Globulin Lipase 197 Radiography Diagnostic Testing: Clinical Impression(s) from Imaging Studies Abdomen/Pelvis CT 01/14/22 16:07 IMPRESSION: (NOT LISTED IN ORDER OF SIGNIFICANCE) Single pigtail drain noted in the pancreatic abscess. Stable appearance of the larger nondrained abscess surrounding the pancreas. There are bilateral pleural effusions. There is bilateral pneumonia. Stable mural wall thickening of the cecum and ascending colon. This may suggest a mild colitis. Other findings as above. Electronically Signed: Rod More MD at 17:55 EDT , Chest X-Ray 01/14/22 16:10 IMPRESSION: There are bilateral pleural effusions. Electronically Signed: Rod More MD at 16:30 EDT , Treatment and Re-Evaluation Narrative: Patient appears lethargic, patient was hypoxic placed on 2 L nasal cannula. Patient presents to the emergency department for feeling of weakness, concerning for some of her drains in her abdomen. Patient did receive a full work-up, patient's laboratory studies show slight leukocytosis with a white blood count of 11.5, hemoglobin was 11.6. Patient's potassium was 3.2, this was replaced orally. Patient's ammonia was negative. Patient's proBNP was slightly elevated at 430. Patient's lipase was unremarkable. Patient did receive a chest x-ray, chest x-ray showed that there were bilateral pleural effusions. Patient received a CT scan of the abdomen pelvis with IV contrast, this did show a single pigtail drain noted in the pancreatic abscess. Stable appearance of the larger nonrate abscess surrounding the pancreas. There are bilateral pleural effusions, there is bilateral pneumonia. Stable mural wall thickening of the cecum and ascending colon. This may suggest mild colitis. Patient appears to be in no distress, patient is doing well on 2 L nasal cannula, patient appears to be in no pain. Patient was ambulated without her oxygen, patient merely dropped to 85%. At this time, secondary to the pleural effusions, pneumonia, I believe the patient needs admitted to the hospital. I did speak with the hospitalist here however he believes that since the patient does have a big abscess around the pancreas that has not have a drain the patient needs to be transferred to [facility]. At this time, I did speak with the transfer center, I did talk with Dr. Vides, the hospitalist who will admit this patient. Patient stable for admission and transfer. Patient was started on IV Zosyn, vancomycin to cover her for hospital-acquired pneumonia <Dr. Thomas Sylvester, DO - Last Filed: 01/14/22 20:47> [facility] Narrative Medical decision making narrative: This patient was seen with a PA/ELECTRICAL PROJECT ENGINEER Individually assessed they patient including history and physical. I have reviewed everything on the chart that is available and agree with the documentation provided by the PA/ELECTRICAL PROJECT ENGINEER including discussion about the assessment, treatment plan, discussion, and return precautions. This is a 66-year-old female presenting with chief complaint of generalized weakness and some confusion. She was noted to be hypoxic and placed on 2 L nasal cannula. Patient does not appear to be any respiratory distress although she does complain of shortness of breath and coughing. She was concerned with the functionality of her drains which appear to be functional. She seems to be confused on how to take care of her self. I did obtain an EKG and on my interpretation this is a normal sinus rhythm with a ventricular rate of 69 bpm without sign of ischemic change or dysrhythmia. Rapid COVID testing was negative. Blood work was obtained and she had a slight leukocytosis of 11.5 which is slightly increased from just under 11 on her previous visit in [facility] on the . Hemoglobin was stable at 11.6 and was previously 12.2 at [facility] on the . Potassium was 3.2 and was repleted. BUN/creatinine normal.proBNP slightly elevated at 430 and chest x-ray on my interpretation shows small bilateral pleural effusions. These are new from her previous CT imaging of her abdomen pelvis which did not show these. Did not find a history of echocardiogram in our system and no history of CHF that I can find. Ammonia level within normal limits. Lactic acid within normal limits. LFTs and lipase are unremarkable. CT of the abdomen pelvis was obtained this does show an area with a drain in place and 1 abscess however there is a pancreatic abscess surrounding this. There is also concern for these pleural effusions and interpreted by the radiologist as pneumonia. Patient was 89% on room air in the bed prior to ambulatory testing and dropped to 85%. After that she was placed on 2 L nasal cannula and has remained stable. Patient covered with vancomycin and Zosyn. She was given 40 mg of Lasix. Patient was discussed with the hospitalist who felt the patient was best served at [facility] where she had her previous surgeries due to this new abscess which was not present previously. Patient is treated for hospital-acquired pneumonia and given dose of Lasix for her pleural effusions and elevated BNP. Patient was accepted and is pending transfer to [facility]. We have not obtained a bed yet. Impression: 1. Pancreatic abscess 2. Leukocytosis 3. Bilateral pleural effusions 4. Hospital-acquired pneumonia 5. Hypoxic respiratory failure 6. Hypokalemia 7. Generalized weakness Lab Data Labs: Laboratory Results - last 24 hr 01/14/22 01/14/22 01/14/22 16:30 16:30 16:30 WBC 11.5 H RBC 3.64 L Hgb 11.6 L Hct 36.9 L MCV 101.4 H MCH 31.9 MCHC 31.4 L RDW Std Deviation 57.3 H RDW Coeff of Fidelina 15.3 H Plt Count 449 MPV 10.4 Immature Gran % (Auto) 0.700 Neut % (Auto) 75.7 H Lymph % (Auto) 15.9 L [place] % (Auto) 7.2 Eos % (Auto) 0.2 Baso % (Auto) 0.3 Absolute Neuts (auto) 8.7 H Absolute Lymphs (auto) 1.82 Nucleated RBC % 0 Sodium 142 Potassium 3.2 L Chloride 102 Carbon Dioxide 33.0 H Anion Gap 7 BUN 11 Creatinine 0.62 Estim Creat Clear Calc 79.16 Est GFR (MDRD) Af Amer 126 Est GFR (MDRD) Non-Af 104 BUN/Creatinine Ratio 17.9 Glucose 115 H Lactic Acid Calcium 8.6 Total Bilirubin 0.30 Direct Bilirubin 0.12 AST 32 ALT 20 Alkaline Phosphatase 62 Ammonia < 10.0 L B-Natriuretic Peptide 430.2 H Total Protein 6.1 L Albumin 2.1 L Globulin 4.0 Lipase 01/14/22 01/14/22 16:30 16:30 WBC RBC Hgb Hct MCV MCH MCHC RDW Std Deviation RDW Coeff of Fidelina Plt Count MPV Immature Gran % (Auto) Neut % (Auto) Lymph % (Auto) [place] % (Auto) Eos % (Auto) Baso % (Auto) Absolute Neuts (auto) Absolute Lymphs (auto) Nucleated RBC % Sodium Potassium Chloride Carbon Dioxide Anion Gap BUN Creatinine Estim Creat Clear Calc Est GFR (MDRD) Af Amer Est GFR (MDRD) Non-Af BUN/Creatinine Ratio Glucose Lactic Acid 1.0 Calcium Total Bilirubin Direct Bilirubin AST ALT Alkaline Phosphatase Ammonia B-Natriuretic Peptide Total Protein Albumin Globulin Lipase 197 Radiography Diagnostic Testing: Clinical Impression(s) from Imaging Studies Abdomen/Pelvis CT 01/14/22 16:07 IMPRESSION: (NOT LISTED IN ORDER OF SIGNIFICANCE) Single pigtail drain noted in the pancreatic abscess. Stable appearance of the larger nondrained abscess surrounding the pancreas. There are bilateral pleural effusions. There is bilateral pneumonia. Stable mural wall thickening of the cecum and ascending colon. This may suggest a mild colitis. Other findings as above. Electronically Signed: Rod More MD at 17:55 EDT , Chest X-Ray 01/14/22 16:10 IMPRESSION: There are bilateral pleural effusions. Electronically Signed: Rod More MD at 16:30 EDT , Discharge Plan Triage Chief Complaint: Wound Check ED Midlevel Provider: Bobo Amezcua ED Provider: Thomas Sylvester Dx/Rx/DC Orders Clinical Impression: Bilateral pleural effusion, HABP (hospital-acquired bacterial pneumonia), Abscess of pancreas, Hypoxia Prescriptions: No Action Orencia 125 mg/mL syringe 125 mg subcut FR oxycodone 10 mg tablet 10 mg PO Q8H PRN (Reason: pain) 14 Days Qty: 30 0RF losartan 50 mg tablet 25 mg PO DAILY PRN (Reason: elevated BP) alprazolam [Xanax] 1 MG tablet 1 mg PO BID rizatriptan 10 tablet 10 mg PO PRN PRN (Reason: Migraine Headache) Label Comments: omega-3 fatty acids 1,000 MG capsule 2,000 mg PO DAILY magnesium oxide 400 MG tablet 400 mg PO DAILY calcium carbonate-vitamin D3 1 EACH tablet 1 tablet PO DAILY Creon 1 CAPSULE capsule 2 capsule PO ACHS Otezla 30 MG tablet 30 mg PO DAILY albuterol sulfate 2.5 mg /3 mL (0.083 %) solution for nebulization 3 mg inhalation Q4H PRN PRN (Reason: Wheezing) betamethasone, augmented [Diprolene (augmented)] 0.05 % Ointment 1 applic TOPICAL DAILY bacitracin zinc 500 unit/gram Ointment 1 applic TOPICAL DAILY PRN (Reason: Skin Cleansing) Nicotrol 10 mg Cartridge 1 inh INHALATION 4X/DAY PRN (Reason: Smoking Cessation) tretinoin [Retin-A] 0.025 % Gel 1 applic TOPICAL QHS benzonatate [Tessalon Perles] 100 mg Capsule 100 mg PO TID PRN (Reason: Cough) atorvastatin 40 mg tablet 20 mg PO QHS Label Comments: take 1/2 tablet by mouth at bedtime for cholesterol ropinirole 1 mg tablet 1 mg PO QHS Label Comments: take 1 tablet by mouth at bedtime quetiapine 200 mg tablet 100 mg PO QHS ergocalciferol (vitamin D2) [Vitamin D2] 1,250 mcg (50,000 unit) capsule 1,250 mcg PO Primary Care Provider: Rodney Pool Referrals: Rodney Pool MD [Primary Care Provider] - Disposition Disposition: Acute Care Hospital
[2022-01-14] MEDS: Vancomycin IV 1,000 MG/200 ML BAG 200 MG IV (19:38)
[2022-01-14 20:47] LABS: Troponin-I HS 92 pg/mL (3.0-54.0)
[2022-01-14 21:30] LABS: Troponin-I HS 76 pg/mL (3.0-54.0)
== END 2022-01-14 21:38 | disposition short-term general hospital (02) ==
PROVIDERS: Nurse Practitioner; Emergency Provider Student in an Organized Health Care Education/Training Program; PCP Family Medicine; Visit Provider Student in an Organized Health Care Education/Training Program
DX: K85.90 Acute pancreatitis without necrosis or infection, unspecified (principal); J44.9 Chronic obstructive pulmonary disease, unspecified; J96.91 Respiratory failure, unspecified with hypoxia; J90 Pleural effusion, not elsewhere classified; J18.9 Pneumonia, unspecified organism; I10 Essential (primary) hypertension; Y95 Nosocomial condition; E78.00 Pure hypercholesterolemia, unspecified; D72.829 Elevated white blood cell count, unspecified; E87.6 Hypokalemia; G25.81 Restless legs syndrome; R53.1 Weakness; Z79.899 Other long term (current) drug therapy; Z86.73 Personal history of transient ischemic attack (TIA), and cerebral infarction without residual deficits; Z87.891 Personal history of nicotine dependence
CPT/HCPCS: 71045; 74177; 80048; 80076; 82140; 83605; 83690; 83880; 84484; 85025; 87428; 93005; 96361; 96365; 96368; 99283; J7030; J7050; Q9967; A4216

== ENCOUNTER 2022-01-22 13:23 | Inpatient (IN) | payer MEDICAID, SELFPAY ==
[2022-01-22] VITALS (7 sets, daily range): BP systolic 109–163; BP diastolic 73–94; PULSE 79–95; RESP 16–24; TEMP 36.6–37.3; O2SAT 92–96; BMI 23.1; BMI 20.9; BMI 21.5
--- NOTE | 2022-01-22 14:12 | ED.VIS.GI ---
HPI HPI - GI History of Present Illness Chief Complaint: GI Bleed Informant: patient Abdominal Pain/Flank Pain Onset: Days Nausea/Vomiting/Emesis GI Symptom: Positive for Nausea Associated Symptoms Associated Symptoms: Negative for Dysuria, Frequency, Hematuria or Urgency Narrative Narrative: 66-year-old female history of anemia, TIA, COPD, pancreatitis with a stent. 915 I tried to put in a pancreatic stent there were complications. She was then transferred to [facility] was discharged on Saturday. States that they did place some abdominal drains. She also developed pneumonia while in the hospital. States she has had dark stools even prior to being discharged in the hospital and if continued she came in to be evaluated. She said her stools look like coffee grounds. She has had nausea without vomiting. She has had no hematemesis. Prior similar symptoms: No Recent Illness/Hospitalization: Yes PFSH PFS Medical History Abnormal findings on diagnostic imaging of liver and biliary tract Abnormal weight loss Anemia Anxiety Arthritis Back pain Broken back Bulimia Calculus of gallbladder without cholecystitis without obstruction Cardiology follow-up encounter Chest pain Cochlear implant in place COPD (chronic obstructive pulmonary disease) DDD (degenerative disc disease), cervical Easy bruising Former smoker Hepatitis Hepatitis C High cholesterol History of echocardiogram History of irregular heartbeat History of stress test Hx of fracture of nose Idiopathic chronic pancreatitis Injury of back Injury of head and neck Latent tuberculosis Leg cramps Marijuana use Migraine headache Migraines Nicotine dependence Osteoporosis Pancreatic duct stricture Personality disorder Psoriasis Restless legs Rheumatoid arthritis Severe protein-calorie malnutrition Shortness of breath on exertion Steatorrhea, pancreatic Syncope TIA (transient ischemic attack) Wears dentures Wears hearing aid Home Medications alprazolam 1 mg tablet (Xanax) 1 mg PO BID 12/16/13 [History Last Taken 01/04/22] rizatriptan 10 mg tablet 10 mg PO PRN PRN Migraine Headache 05/06/17 [History Last Taken 01/03/22] apremilast 30 mg tablet (Otezla) 30 mg PO DAILY psoriasis 08/04/20 [History Last Taken 2 Days Ago ~01/03/22] calcium carbonate 600 mg-vitamin D3 10 mcg (400 unit) tablet 1 tablet PO DAILY SUPPLEMENT 08/04/20 [History Last Taken 01/03/22] irtakh-zijvwyzn-lqfbnyn 6,000-19,000-30,000 unit capsule,delayed rel (Creon) 2 capsule PO ACHS 08/04/20 [History Last Taken Unknown] magnesium oxide 400 mg (241.3 mg magnesium) tablet 400 mg PO DAILY SUPPLEMENT 08/04/20 [History Last Taken 01/04/22] omega-3 fatty acids 1,000 mg capsule 2,000 mg PO DAILY 08/04/20 [History Last Taken 01/04/22] abatacept 125 mg/mL subcutaneous syringe 125 mg subcut FR 07/28/21 [History Last Taken 12/22/21] albuterol sulfate 2.5 mg/3 mL (0.083 %) solution for nebulization 3 mg inhalation Q4H PRN PRN Wheezing 08/11/21 [History Last Taken 3 Weeks Ago ~12/15/21] bacitracin zinc 500 unit/gram topical ointment 1 applic topical DAILY PRN Skin Cleansing 08/11/21 [History Last Taken 01/04/22] benzonatate 100 mg capsule 100 mg PO TID PRN Cough 08/11/21 [History Last Taken 2 Weeks Ago ~12/22/21] betamethasone, augmented 0.05 % topical ointment (Diprolene (augmented)) 1 applic topical DAILY SKIN 08/11/21 [History Last Taken 01/03/22] nicotine 10 mg inhalation cartridge (Nicotrol) 1 inh inhalation 4X/DAY PRN Smoking Cessation 08/11/21 [History Last Taken 01/05/22] tretinoin 0.025 % topical gel (Retin-A) 1 applic topical QHS PSORIASIS 08/11/21 [History Last Taken 1 Week Ago ~12/29/21] losartan 50 mg tablet 25 mg PO DAILY PRN elevated BP 11/08/21 [History Last Taken 2 Weeks Ago ~12/22/21] atorvastatin 40 mg tablet 20 mg PO QHS cholesterol 01/05/22 [History Last Taken Unknown] ergocalciferol (vitamin D2) 1,250 mcg (50,000 unit) capsule (Vitamin D2) 1,250 mcg PO FR SUPPLEMENT 01/05/22 [History Last Taken 12/22/21] quetiapine 200 mg tablet 100 mg PO QHS RLS 01/05/22 [History Last Taken 12/26/21] ropinirole 1 mg tablet 1 mg PO QHS RLS 01/05/22 [History Last Taken 12/26/21] oxycodone 10 mg tablet 10 mg PO Q8H PRN pain 14 days #30 tabs 01/10/22 [Rx Last Taken Unknown] Allergy/AdvReac Type Severity Reaction Status Date / Time bupropion Allergy Other Verified 01/14/22 15:48 codeine Allergy Hives Verified 01/14/22 15:48 gabapentin Allergy Other Verified 01/14/22 15:48 oxaprozin [From Daypro] Allergy Hives Verified 01/14/22 15:48 oxybutynin Allergy Unknown Verified 01/14/22 15:48 pentazocine [From Talwin] Allergy Itching Verified 01/14/22 15:48 pentazocine lactate Allergy Itching Verified 01/14/22 15:48 [From Talwin] propoxyphene HCl Allergy Hives Verified 01/14/22 15:48 [From Darvon] propoxyphene napsylate Allergy Hives Verified 01/14/22 15:48 [From Darvocet-N 100] rofecoxib [From Vioxx] Allergy Rash Verified 01/14/22 15:48 tramadol HCl [From Ultram] Allergy Upset Verified 01/14/22 15:48 Stomach cyclobenzaprine HCl AdvReac Upset Verified 01/14/22 15:48 [From Flexeril] Stomach hydrocodone AdvReac Other Verified 01/14/22 15:48 venlafaxine HCl AdvReac Upset Verified 01/14/22 15:48 [From Effexor] Stomach PINE Allergy Hives Uncoded 01/14/22 15:48 Family History Mother CVA (cerebral vascular accident) Hypertension Father Cancer Diabetes Sister Thyroid disorder Surgical History H/O section History of back surgery History of bladder surgery History of cochlear implant History of colonoscopy History of ERCP History of kyphoplasty History of mandibular surgery History of nasal surgery History of repair of cleft lip History of rotator cuff surgery History of tracheostomy Hx of cholecystectomy Hx of LASIK Hx of neck surgery Hx of tubal ligation Social History Smoking Status: Former smoker quit date: 06/02/17 pack-years: 30 alcohol intake: never ROS ROS ED ROS Narrative Nausea. Dark stool. Review of Systems ROS Unobtainable: Denies due to encephalopathy Constitutional Constitutional ED: Denies chills or fever(s) ENT ENT ED: Denies ear pain Cardiovascular Cardiovascular: Denies chest pain Respiratory/Chest Respiratory/Chest: Denies cough Gastrointestinal Gastrointestinal: Reports melena and nausea; Denies abdominal pain Genitourinary Genitourinary ED: Denies dysuria or hematuria Musculoskeletal Musculoskeletal: Denies arthralgias Integumentary Denies abscess Neurologic Neurologic: Denies headache(s) Psychiatric Psychiatric: Denies anxiety Endocrine Endocrinology: Denies polydipsia Hematologic/Lymphatic Hematologic/Lymphatic: Denies easy bleeding Allergic/Immunologic Allergic/Immunologic ED: Denies mouth swelling or tongue swelling EXAM Physical Exam Narrative Exam Narrative: 66-year-old female no acute distress. Vital signs stable afebrile. H EENT exam unremarkable. Neck nontender. Lungs have rhonchi on the left. She has a reported history of pneumonia. Right is more clear. Abdomen soft. She has 2 drains ports in the right side. Minimally tender. Nondistended. No peritoneal signs. Moving all 4 extremities. Nontender no edema. Neurologically she is awake and alert. No focal motor deficits. Const Vital Signs: 01/22/22 13:24 01/22/22 13:42 01/22/22 15:12 Temperature 97.9 F Temperature Source Temporal Pulse Rate 95 91 93 Respiratory Rate 16 21 H 20 H Blood Pressure 149/78 H 149/83 H 151/81 H Blood Pressure Mean 101 105 104 Pulse Ox 94 92 92 Oxygen Delivery Method Room Air Room Air Room Air Positive well nourished and well developed; Negative for obese, cachectic, contractures or unkempt General Appearance ED: well developed and NAD; Negative for unkempt, cachectic, contractures or pallor Nutritional Appearance: Negative for cachectic or obese HEENT Reports moist mucous membranes normocephalic and atraumatic; Negative for trauma or tenderness Eyes PERRL and EOMs intact bilaterally General Eye ED: Negative for pale conjunctiva or scleral icterus Neck no lymphadenopathy, supple and no JVD General: Negative for tenderness Carotids: Negative for other Resp normal respiratory effort and No clear to auscultation bilaterally Resp Narrative: Left-sided rhonchi. History of recent pneumonia. Effort and Inspection: Negative for respiratory distress or retractions Auscultation: rales and rhonchi; Negative for wheezes Cardio regular rate, regular rhythm, S1 normal heart sound, S2 normal heart sound and no murmurs Rate: Negative for bradycardia or tachycardic Rhythm: Negative for abnormal rhythm GI non-distended and no masses; Negative for non-tender GI Narrative: Tender. 2 drainage tubes on the right. Inspection: Negative for abdominal distention Auscultation: normoactive bowel sounds Palpation: soft and tender; Negative for guarding, rigid, hepatomegaly or splenomegaly Back/Spine no CVA tenderness General Back: Negative for CVA tenderness Cervical Spine: Negative for cervical spine tenderness Thoracic Spine / Upper Back: Negative for thoracic spinal tenderness Lumbar Spine / Lower Back: Negative for lumbar spinal tenderness Coccyx: Negative for other Neuro CN's II-XII intact bilaterally and moves all extremities Sensorium / Orientation: alert, oriented to person, oriented to place and oriented to time; Negative for orientation impaired, confused, lethargic or stuporous Motor Exam: strength 5/5 throughout Psych mental status grossly normal and thought process normal Appearance: Negative for unkempt Attitude: No agitated Mood & Affect: Negative for depressed, anxious or tearful Skin no wounds General Skin Exam: Negative for jaundice or pallor Lesions: no lesions Rashes: no rashes Trauma: Negative for abrasion Nails: Negative for discolored MDM MDM MDM Narrative Medical decision making narrative: 66-year-old female with possibly GI bleed with dark stool. Has had extensive past medical history and her recent complicated course. Screening labs will be obtained along with a type and screen. She will be treated with IV Protonix for the possibility of an upper GI bleed. Repeat exam unchanged. Patient's family members in the room. Said ever since she was discharged from [facility] she is been unable to care for self. I did do a rectal exam there was no stool and no blood or melena. We went over all of her test results. I have spoken to the hospitalist. She will be admitted to [facility] for failure to thrive. Lab Data Attestation: I reviewed the patient's lab results. Lab results narrative: CBC unremarkable white count 8.6 H&H of 13.6 and 41.8. Platelets 390. Electrolytes show a gap of 11 normal BUN and creatinine. Liver enzymes are unremarkable. Blood type is a positive. Labs: Laboratory Results - last 24 hr 01/22/22 01/22/22 01/22/22 14:20 14:20 14:20 WBC 8.6 RBC 4.30 Hgb 13.6 Hct 41.8 MCV 97.2 MCH 31.6 MCHC 32.5 RDW Std Deviation 55.5 H RDW Coeff of Fidelina 15.7 H Plt Count 390 MPV 10.3 Immature Gran % (Auto) 0.700 Neut % (Auto) 76.1 H Lymph % (Auto) 16.9 L [place] % (Auto) 6.0 Eos % (Auto) 0.2 Baso % (Auto) 0.1 Absolute Neuts (auto) 6.6 Absolute Lymphs (auto) 1.46 Nucleated RBC % 0 Sodium 138 Potassium 3.5 Chloride 101 Carbon Dioxide 26.0 Anion Gap 11 BUN 9 Creatinine 0.70 Estim Creat Clear Calc 70.11 Est GFR (MDRD) Af Amer 109 Est GFR (MDRD) Non-Af 90 BUN/Creatinine Ratio 12.9 Glucose 100 Calcium 9.6 Total Bilirubin 0.30 AST 30 ALT 32 Alkaline Phosphatase 64 Total Protein 6.8 Albumin 2.8 L Globulin 4.0 Albumin/Globulin Ratio 0.7 L Blood Type A POSITIVE Antibody Screen NEGATIVE Discharge Plan Triage Chief Complaint: GI Bleed ED Provider: Yaniv Buenrostro Dx/Rx/DC Orders Clinical Impression: Adult failure to thrive, Weakness, History of pneumonia Prescriptions: No Action Orencia 125 mg/mL syringe 125 mg subcut FR oxycodone 10 mg tablet 10 mg PO Q8H PRN (Reason: pain) 14 Days Qty: 30 0RF losartan 50 mg tablet 25 mg PO DAILY PRN (Reason: elevated BP) alprazolam [Xanax] 1 MG tablet 1 mg PO BID rizatriptan 10 tablet 10 mg PO PRN PRN (Reason: Migraine Headache) Label Comments: omega-3 fatty acids 1,000 MG capsule 2,000 mg PO DAILY magnesium oxide 400 MG tablet 400 mg PO DAILY calcium carbonate-vitamin D3 1 EACH tablet 1 tablet PO DAILY Creon 1 CAPSULE capsule 2 capsule PO ACHS Otezla 30 MG tablet 30 mg PO DAILY albuterol sulfate 2.5 mg /3 mL (0.083 %) solution for nebulization 3 mg inhalation Q4H PRN PRN (Reason: Wheezing) betamethasone, augmented [Diprolene (augmented)] 0.05 % Ointment 1 applic TOPICAL DAILY bacitracin zinc 500 unit/gram Ointment 1 applic TOPICAL DAILY PRN (Reason: Skin Cleansing) Nicotrol 10 mg Cartridge 1 inh INHALATION 4X/DAY PRN (Reason: Smoking Cessation) tretinoin [Retin-A] 0.025 % Gel 1 applic TOPICAL QHS benzonatate [Tessalon Perles] 100 mg Capsule 100 mg PO TID PRN (Reason: Cough) atorvastatin 40 mg tablet 20 mg PO QHS Label Comments: take 1/2 tablet by mouth at bedtime for cholesterol ropinirole 1 mg tablet 1 mg PO QHS Label Comments: take 1 tablet by mouth at bedtime quetiapine 200 mg tablet 100 mg PO QHS ergocalciferol (vitamin D2) [Vitamin D2] 1,250 mcg (50,000 unit) capsule 1,250 mcg PO Primary Care Provider: Rodney Pool Referrals: Rodney Pool MD [Primary Care Provider] - Disposition Disposition: Acute Care Hospital [facility]
[2022-01-22 14:32] LABS: Absolute Lymphocyte Count 1.46 X10^3/uL (0.83-4.51); Absolute Neutrophil Count 6.6 X10^3/uL (2.0-7.7); Basophil# 0.01 X10^3/uL; Basophil% 0.1 % (0-1); Eosinophil# 0.02 X10^3/uL; Eosinophils% 0.2 % (0-5); Hematocrit 41.8 % (37-47); Hemoglobin 13.6 g/dL (12.0-15.0); Lymphocyte # 1.46 X10^3/ul (0.83-4.51); Lymphocyte % 16.9 % (19-41); Mean Corp Hgb Conc 32.5 g/dL (32-36); Mean Corpuscular Hgb 31.6 pg (27.0-32.0); Mean Corpuscular Volume 97.2 fL (81-99); Mean Platelet Vol. 10.3 fl (6.2-12.0); Monocyte# 0.52 X10^3/uL; NRBC Flagged by Analyzer 0 % (0-5); Neutrophil # 6.55 X10^3/uL (2.7-7.7); Neutrophil % 76.1 % (47-70); Platelet Count 390 K/mm3 (150-450); RBC Distribution Width CV 15.7 % (11.6-14.6); RBC Distribution Width SD 55.5 fl (35.1-43.9); White Blood Count 8.6 K/mm3 (4.4-11.0)
[2022-01-22 14:50] LABS: ALB/GLOB Ratio 0.7 RATIO (0.9-2.4); AST(SGOT) 30 U/L (15-37); Alanine Aminotransfer ALT/SGPT 32 U/L (13-56); Albumin, Serum 2.8 g/dL (3.2-5.0); Alkaline Phosphatase 64 U/L (45-117); Anion Gap 11 (5-15); BUN 9 mg/dL (7-18); BUN/Creat Ratio 12.9 RATIO (10-20); Calcium,Total 9.6 mg/dL (8.5-10.1); Chloride 101 mmol/L (98-107); EST Glomerular Filtration Rate 90 mL/min (>60); Est Glom Filt Rate - Afr Amer 109 mL/min (>60); Estimated Creatinine Clearance 70.11 ml/min; Glucose 100 mg/dL (74-106); Potassium 3.5 mmol/L (3.5-5.1); Protein, Total 6.8 g/dL (6.4-8.2); Sodium Level 138 mmol/L (136-145)
[2022-01-22] MEDS: Ondansetron 4 MG/2 ML Vial IV (16:51)
[2022-01-22] MEDS: Morphine 4 MG/ML Syringe IV (16:51)
--- NOTE | 2022-01-22 16:57 | NURSING ---
Abdominal drains flushed at this time per pt/pt family. 30 cc fluid drained from SANDRA drains of cloudy/yellow green fluid. Both drains flush easily. Pt does have slight discomfort upon inital flush to L drain.
--- NOTE | 2022-01-22 17:00 | NURSING ---
MED SURG JOPPERI FAILURE TO THRIVE, PNEUMONIA, ABD ABSCESS
--- NOTE | 2022-01-22 18:41 | PCM.HP.STD ---
HPI - General General Date of Admission: 01/22/22 Date of Service: 01/22/22 Chief Complaint: confusion. weakness. lack of appetite HPI Narrative DAVID BERG, is a 66 F who presents presents to [facility] after just being discharged from [facility] on the . Patient was there for pancreatitis and drain placement for bowel perforations. Patient was discharged with antibiotics Bactrim, Augmentin and fluconazole. Patient has not been eating much of anything stating that she does not have an appetite but then states that she does vomit when she tries to eat and take medications. Family was concerned because she was noted to be driving yesterday and driving on the wrong side of the road and patient stated that she could not turn. There is concerned about polypharmacy as patient was discharged with pain medications. [facility] Medical History (Updated 01/22/22 @ 18:[address] Mehran Dodd, DO) Abnormal findings on diagnostic imaging of liver and biliary tract Abnormal weight loss Anemia Anxiety Arthritis Back pain Broken back Bulimia Calculus of gallbladder without cholecystitis without obstruction Cardiology follow-up encounter Chest pain Chronic pancreatitis Cochlear implant in place COPD (chronic obstructive pulmonary disease) DDD (degenerative disc disease), cervical Easy bruising Former smoker Hepatitis Hepatitis C High cholesterol History of echocardiogram History of irregular heartbeat History of stress test Hx of fracture of nose Idiopathic chronic pancreatitis Injury of back Injury of head and neck Latent tuberculosis Leg cramps Marijuana use Migraine headache Migraines Nicotine dependence Osteoporosis Pancreatic duct stricture Personality disorder Psoriasis Restless legs Rheumatoid arthritis Severe protein-calorie malnutrition Shortness of breath on exertion Steatorrhea, pancreatic Syncope TIA (transient ischemic attack) Wears dentures Wears hearing aid Home Medications alprazolam 1 mg tablet (Xanax) 1 mg PO BID mood 12/16/13 [History Last Taken 01/04/22] rizatriptan 10 mg tablet 10 mg PO PRN PRN Migraine Headache 05/06/17 [History Last Taken 01/03/22] apremilast 30 mg tablet (Otezla) 30 mg PO DAILY psoriasis 08/04/20 [History Last Taken 2 Days Ago ~01/03/22] calcium carbonate 600 mg-vitamin D3 10 mcg (400 unit) tablet 1 tablet PO DAILY SUPPLEMENT 08/04/20 [History Last Taken 01/03/22] qzdjtu-ljabamrv-myajovc 6,000-19,000-30,000 unit capsule,delayed rel (Creon) 2 capsule PO ACHS Check with primary doctor 08/04/20 [History Last Taken Unknown] magnesium oxide 400 mg (241.3 mg magnesium) tablet 400 mg PO DAILY SUPPLEMENT 08/04/20 [History Last Taken 01/04/22] omega-3 fatty acids 1,000 mg capsule 2,000 mg PO DAILY supplement 08/04/20 [History Last Taken 01/04/22] abatacept 125 mg/mL subcutaneous syringe 125 mg subcut FR Check with primary doctor 07/28/21 [History Last Taken 3 Weeks Ago ~01/01/22] albuterol sulfate 2.5 mg/3 mL (0.083 %) solution for nebulization 3 mg inhalation Q4H PRN PRN Wheezing 08/11/21 [History Last Taken 3 Weeks Ago ~12/15/21] bacitracin zinc 500 unit/gram topical ointment 1 applic topical DAILY PRN Skin Cleansing 08/11/21 [History Last Taken 01/04/22] betamethasone, augmented 0.05 % topical ointment (Diprolene (augmented)) 1 applic topical DAILY SKIN 08/11/21 [History Last Taken 01/03/22] nicotine 10 mg inhalation cartridge (Nicotrol) 1 inh inhalation 4X/DAY PRN Smoking Cessation 08/11/21 [History Last Taken 01/21/22] tretinoin 0.025 % topical gel (Retin-A) 1 applic topical QHS PSORIASIS 08/11/21 [History Last Taken 1 Week Ago ~12/29/21] losartan 50 mg tablet 25 mg PO DAILY PRN elevated BP 11/08/21 [History Last Taken 2 Weeks Ago ~12/22/21] atorvastatin 40 mg tablet 20 mg PO QHS cholesterol 01/05/22 [History Last Taken 01/21/22] ergocalciferol (vitamin D2) 1,250 mcg (50,000 unit) capsule (Vitamin D2) 1,250 mcg PO FR SUPPLEMENT 01/05/22 [History Last Taken 12/22/21] quetiapine 200 mg tablet 100 mg PO QHS RLS 01/05/22 [History Last Taken 12/26/21] ropinirole 1 mg tablet 1 mg PO QHS RLS 01/05/22 [History Last Taken 12/26/21] oxycodone 10 mg tablet 10 mg PO Q8H PRN pain 14 days #30 tabs 01/10/22 [Rx Last Taken 01/20/22] amoxicillin 875 mg-potassium clavulanate 125 mg tablet 1 tab PO BID infection 01/22/22 [History Last Taken 01/22/22] fluconazole 200 mg tablet 200 mg PO DAILY infection 01/22/22 [History Last Taken 01/22/22] pantoprazole 40 mg tablet,delayed release 40 mg PO DAILY stomach 01/22/22 [History Last Taken 01/22/22] sennosides 8.6 mg-docusate sodium 50 mg tablet (Senna Plus) 1 tab PO BID Check with primary doctor 01/22/22 [History Last Taken 01/22/22] sulfamethoxazole 800 mg-trimethoprim 160 mg tablet 1 tab PO Q12H Check with primary doctor 01/22/22 [History Last Taken 01/22/22] Allergy/AdvReac Type Severity Reaction Status Date / Time bupropion Allergy Other Verified 01/14/22 15:48 codeine Allergy Hives Verified 01/14/22 15:48 gabapentin Allergy Other Verified 01/14/22 15:48 oxaprozin [From Daypro] Allergy Hives Verified 01/14/22 15:48 oxybutynin Allergy Unknown Verified 01/14/22 15:48 pentazocine [From Talwin] Allergy Itching Verified 01/14/22 15:48 pentazocine lactate Allergy Itching Verified 01/14/22 15:48 [From Talwin] propoxyphene HCl Allergy Hives Verified 01/14/22 15:48 [From Darvon] propoxyphene napsylate Allergy Hives Verified 01/14/22 15:48 [From Darvocet-N 100] rofecoxib [From Vioxx] Allergy Rash Verified 01/14/22 15:48 tramadol HCl [From Ultram] Allergy Upset Verified 01/14/22 15:48 Stomach cyclobenzaprine HCl AdvReac Upset Verified 01/14/22 15:48 [From Flexeril] Stomach hydrocodone AdvReac Other Verified 01/14/22 15:48 venlafaxine HCl AdvReac Upset Verified 01/14/22 15:48 [From Effexor] Stomach PINE Allergy Hives Uncoded 01/14/22 15:48 Family History Mother CVA (cerebral vascular accident) Hypertension Father Cancer Diabetes Sister Thyroid disorder Surgical History H/O section History of back surgery History of bladder surgery History of cochlear implant History of colonoscopy History of ERCP History of kyphoplasty History of mandibular surgery History of nasal surgery History of repair of cleft lip History of rotator cuff surgery History of tracheostomy Hx of cholecystectomy Hx of LASIK Hx of neck surgery Hx of tubal ligation Social History Smoking Status: Former smoker quit date: 06/02/17 pack-years: 30 alcohol intake: never ROS ROS Narrative Lack of appetite. Short of breath. Recent pneumonia. All review of systems were negative except as mentioned above in the history of present illness and the other review of systems. Vital Signs Vital Signs Vital Signs: 01/22/22 13:24 01/22/22 13:42 01/22/22 15:12 Temperature 36.6 C Temperature Source Temporal Pulse Rate 95 91 93 Respiratory Rate 16 21 H 20 H Blood Pressure 149/78 H 149/83 H 151/81 H Blood Pressure Mean 101 105 104 Blood Pressure Source Blood Pressure Position Blood Pressure Location Pulse Ox 94 92 92 Oxygen Delivery Method Room Air Room Air Room Air Oxygen Flow Rate (L/min) 01/22/22 16:59 01/22/22 17:02 01/22/22 18:15 Temperature 36.6 C 36.6 C 37.3 C H Temperature Source Temporal Temporal Temporal Pulse Rate 95 95 83 Respiratory Rate 24 H 24 H 18 Blood Pressure 163/81 H 163/81 H 154/94 H Blood Pressure Mean 108 108 114 Blood Pressure Source Monitor Blood Pressure Position Semi-Fowlers Blood Pressure Location Right Arm Pulse Ox 94 94 96 Oxygen Delivery Method Nasal Cannula Nasal Cannula Nasal Cannula Oxygen Flow Rate (L/min) 2 2 3 Weight Weight: 55.5 kg Body Mass Index (BMI) 20.9 Physical Exam Const alert and no apparent distress Constitutional Narrative: Hard of hearing. Appears older than stated age. HEENT normocephalic and head/scalp atraumatic Resp normal respiratory effort, no retractions, no use of accessory muscles and clear to auscultation bilaterally Cardio regular rate, regular rhythm, S1 normal heart sound and S2 normal heart sound GI GI Narrative: Tender palpation. Nondistended. Drains in place with serous fluid. Extremity normal to inspection and no clubbing, cyanosis or edema Neuro oriented x3, moves all extremities and no focal motor deficits Sensorium / Orientation: awake Psych Psych Narrative: Flat affect Results Lab / Micro Data Result Diagrams: 01/22/22 14:20 01/22/22 14:20 Labs: Laboratory Results - last 24 hr 01/22/22 14:20: WBC 8.6, RBC 4.30, Hgb 13.6, Hct 41.8, MCV 97.2, MCH 31.6, MCHC 32.5, RDW Std Deviation 55.5 H, RDW Coeff of Fidelina 15.7 H, Plt Count 390, MPV 10.3, Immature Gran % (Auto) 0.700, Neut % (Auto) 76.1 H, Lymph % (Auto) 16.9 L, [place]clennan % (Auto) 6.0, Eos % (Auto) 0.2, Baso % (Auto) 0.1, Absolute Neuts (auto) 6.6, Absolute Lymphs (auto) 1.46, Nucleated RBC % 0 01/22/22 14:20: Sodium 138, Potassium 3.5, Chloride 101, Carbon Dioxide 26.0, Anion Gap 11, BUN 9, Creatinine 0.70, Estim Creat Clear Calc 70.11, Est GFR (MDRD) Af Amer 109, Est GFR (MDRD) Non-Af 90, BUN/Creatinine Ratio 12.9, Glucose 100, Calcium 9.6, Total Bilirubin 0.30, AST 30, ALT 32, Alkaline Phosphatase 64, Total Protein 6.8, Albumin 2.8 L, Globulin 4.0, Albumin/Globulin Ratio 0.7 L 01/22/22 14:20: Blood Type A POSITIVE, Antibody Screen NEGATIVE Assessment & Plan Assessment/Plan (1) Adult failure to thrive: PLAN: PT OT evaluate and treat Patient is open to going to a retirement facility Case management to assist (2) History of pneumonia: PLAN: Unclear the type of pneumonia but patient was treated for that. Currently on oxygen. Lung exam is unremarkable. Check chest x-ray (3) Encephalopathy: PLAN: May been toxic from the oxycodone The daughter was initially asking what should be done about her driving before I really do much about was going on with her. May been a culmination of patient taking the oxycodone but also being profoundly debilitated from her 3-week hospitalization Would recommend seeing how she responds with therapy, nutrition and to the point where she could be potentially deemed safe to drive. If not, I did state that she may need to go to a electrical automation engineer to have a formal driving assessment. (4) Severe protein-calorie malnutrition: PLAN: Secondary to chronic pancreatitis. Patient is not interested in a J-tube. Spoke with the patient about PICC line and TPN. Patient had initial apprehension about that, being concerned about the PICC line and worried be located in her chest. I offered reassurance in the patient's sister, who had a PICC line for other reasons, helped reassure the patient. Discussed with Dr. Fu, to whom the patient is seen before, and that is also his recommendation that the patient have PICC line and TPN (5) Chronic pancreatitis: QUALIFIERS: Pancreatitis type: alcohol induced Qualified Code(s): K86.0 - Alcohol-induced chronic pancreatitis PLAN: Due to history of alcohol as well as pancreatic duct stricture. Patient has been offered Whipple procedure but has declined that in the past and does not want any surgery. Patient can have diet as tolerated but given her nutritional status she will also be on TPN. Continue with pancreatic enzymes. (6) Abdominal abscess: PLAN: [address] with just serous fluid. They, the patient and her sister, expressed reluctance about being transferred to [facility] saying that they would never want to go back there again as it was filthy. Did state that she would need to follow-up with Dr. Esparza at [facility] to see about getting her drains removed at a later point. Unless her condition changes I do not feel that there is any acute needs for addressing her drains at this point. Check records from [facility] to see what the cultures grew out. Patient not able to take pills so we will hold off on her oral Augmentin, fluconazole and Bactrim. In the meantime, patient will be on IV Unasyn and IV fluconazole. I am not sure about the indication for the Bactrim but if does show that she did have a gram-positive organism that was not sensitive to Unasyn then another agent will need to be added. Given the fact that she does not appear to be toxic and holding off on vancomycin at this point in time. PLAN: Plan VTE prophylaxis: Moderate risk. Enoxaparin. CODE STATUS: Addressed with the patient. Patient wishes to be full CODE STATUS. Charges/Coding Visit Charges Inpatient E&M: 66238 Init Hosp L3
--- NOTE | 2022-01-22 19:30 | RAD_ITS ---
INDICATION: recent pneumonia EXAMINATION/TECHNIQUE: X-RAY - XR Chest 2 Views COMPARISON: Chest x-ray 01/14/[address] abdomen and pelvis 01/14/2022. FINDINGS: LINES/DEVICES: None. LUNGS: Blunting of the costophrenic angles, left greater than right. Small pleural effusions seen on comparison CT likely persist. There is also mild bibasilar airspace disease, left greater than right favored to represent atelectasis. Alveolar filling process such as pneumonia is not completely excluded. MEDIASTINUM AND CARDIOVASCULAR STRUCTURES: Normal size and contour of the cardiomediastinal silhouette. No evidence of pulmonary vascular congestion. BONES AND SOFT TISSUES: Incompletely visualized drainage catheter right upper quadrant and surgical clips right upper quadrant. RAD/Chest PA and Lateral IMPRESSION: 1. Persistent, mild, left greater than right, small pleural effusions and overlying airspace disease most likely representing atelectasis. Electronically Signed: Matthieu Kirkpatrick DO at 20:35 EDT ,
[2022-01-22] MEDS: 0.9% Saline Lock 10 ML Syringe IV (20:09)
[2022-01-22] MEDS: 0.9% Normal Saline 1,000 ML 150 ML IV (20:09)
[2022-01-22] MEDS: Acetaminophen 325 MG Tablet 650 MG PO (22:27)
[2022-01-22] MEDS: oxyCODONE 5 MG Tablet PO (22:27)
[2022-01-22] MEDS: QUEtiapine 100 MG Tablet PO (22:31)
[2022-01-22] MEDS: Senna/Docusate Sodium 1 Tablet PO (22:31)
[2022-01-22] MEDS: Pramipexole Di-HCl 0.5 MG Tablet PO (22:31)
[2022-01-23 05:10] VITALS: BP 122/59; PULSE 74; RESP 16; TEMP 36.7; O2SAT 94
[2022-01-23 05:19] LABS: ALB/GLOB Ratio 0.7 RATIO (0.9-2.4); AST(SGOT) 25 U/L (15-37); Alanine Aminotransfer ALT/SGPT 25 U/L (13-56); Albumin, Serum 2.2 g/dL (3.2-5.0); Alkaline Phosphatase 51 U/L (45-117); Anion Gap 9 (5-15); BUN 10 mg/dL (7-18); BUN/Creat Ratio 13.8 RATIO (10-20); Calcium,Total 8.3 mg/dL (8.5-10.1); Chloride 105 mmol/L (98-107); Creatinine, Serum 0.72 mg/dL (0.55-1.02); EST Glomerular Filtration Rate 86 mL/min (>60); Est Glom Filt Rate - Afr Amer 104 mL/min (>60); Estimated Creatinine Clearance 68.16 ml/min; Globulin 3.3 g/dL (2.2-4.2); Glucose 79 mg/dL (74-106); Magnesium 2.1 mg/dL (1.6-2.6); Phosphorus 2.6 mg/dL (2.5-4.9); Protein, Total 5.5 g/dL (6.4-8.2); Sodium Level 140 mmol/L (136-145)
--- NOTE | 2022-01-23 07:14 | PN.HOSP_ITS ---
Subjective Subjective Follow-up for adult failure to thrive, debilitated. No fever. Recently had multiple procedures and ER visit, loss of appetite. Loss of weight.Normally she weighs 133 pounds, in December 2021 present weight is 125 p ounds. Objective Data Objective Data Vital Signs: Vital Signs Temp Pulse Resp BP Pulse Ox O2 Del Method O2 Flow Rate 98.1 F 74 16 122/59 H 94 Nasal Cannula 3 01/23/22 05:10 01/23/22 05:10 01/23/22 05:10 01/23/22 05:10 01/23/22 05:10 01/23/22 05:10 01/23/22 05:10 Oxygen Flow Rate (L/min) 3 Oxygen Delivery Method Nasal Cannula Weight: 125 lb 7.088 oz Body Mass Index (BMI) 21.5 Intake & Output: Intake and Output for Last 24 Hours 01/21/22 01/22/22 01/23/22 23:59 23:59 23:59 Intake Total 35 / 35 1200 / 1200 Output Total 15 / 0 / 0 Balance 1200 / 1200 Lab / Micro Data Result Diagrams: 01/22/22 14:20 01/23/22 04:08 Labs: Laboratory Results - last 24 hr 01/22/22 14:20: WBC 8.6, RBC 4.30, Hgb 13.6, Hct 41.8, MCV 97.2, MCH 31.6, MCHC 32.5, RDW Std Deviation 55.5 H, RDW Coeff of Fidelina 15.7 H, Plt Count 390, MPV 10.3, Immature Gran % (Auto) 0.700, Neut % (Auto) 76.1 H, Lymph % (Auto) 16.9 L, [place] % (Auto) 6.0, Eos % (Auto) 0.2, Baso % (Auto) 0.1, Absolute Neuts (auto) 6 .6, Absolute Lymphs (auto) 1.46, Nucleated RBC % 0 01/22/22 14:20: Sodium 138, Potassium 3.5, Chloride 101, Carbon Dioxide 26.0, Anion Gap 11, BUN 9, Creatinine 0.70, Estim Creat Clear Calc 70.11, Est GFR (MDRD) Af Amer 109, Est GFR (MDRD) Non-Af 90, BUN/Creatinine Ratio 12.9, Glucose 100, Calcium 9.6, Total Bilirubin 0.30, AST 30, ALT 32, Alkaline Phosphatase 64, Total Protein 6.8, Albumin 2.8 L, Globulin 4.0, Albumin/Globulin Ratio 0.7 L 01/22/22 14:20: Blood Type A POSITIVE, Antibody Screen NEGATIVE 01/23/22 04:08: Sodium 140, Potassium 3.0 L, Chloride 105, Carbon Dioxide 26.0, Anion Gap 9, BUN 10, Creatinine 0.72, Estim Creat Clear Calc 68.16, Est GFR (MDRD) Af Amer 104, Est GFR (MDRD) Non-Af 86, BUN/Creatinine Ratio 13.8, Glucose 79, Calcium 8.3 L, Phosphorus 2.6, Magnesium 2.1, Total Bilirubin 0.40, AST 25, ALT 25, Alkaline Phosphatase 51, Total Protein 5.5 L, Albumin 2.2 L, Globulin 3.3, Albumin/Globulin Ratio 0.7 L Radiography Diagnostic Testing: Radiology Impression Chest X-Ray 01/22/22 19:30 IMPRESSION: 1. Persistent, mild, left greater than right, small pleural effusions and overlying airspace disease most likely representing atelectasis. Physical Exam Narrative Seen and examined. Patient has history of chronic pancreatitis with pancreatic duct stricture. While attempting biliary/pancreatic stent she had rupture about 11/2 years ago and similar thing happened on 12/28 when biliary sphincterotomy and CBD was dilated. As per patient, she had a stent put and had bowel perforation in but I do not see in Dr. Fu's operative note Patient came back to ER Was transferred to [facility]. She was found to have intra-abdominal abscesses and phlegmon for which she had abdominal drain and discharge on January 21 and she came back hospital on patient is not able to eat or drink cannot Physical exam General: Alert, Oriented x3, Cooperative, severe acute protein calorie malnutrition HEENT: Atraumatic, PERRLA, EOMI, Normocephalic Oral: Oral mucosa dry no Gingival or Mucosal Lesions/ Ulcerations Neck: Supple, No JVD, Negative Carotid Bruits Lungs: Air entry diminished in bilateral lung bases. Bibasilar crepitations. Cardiovascular: Regular rate, Regular Rhythm, Normal S1, Normal S2, No murmurs Abdomen: Bowel Sounds Present, Soft, 2 abdominal drains present. Generalized tenderness mainly in lower quadrants. : No renal angle tenderness. No suprapubic tenderness. Extremities: No edema, Capillary Refill Less than 3 Seconds Skin: No rashes, No breakdown Musculoskeletal: No Tenderness to Palpation of Joints or Extremities. Moderate muscle atrophy, loss of subcutaneous fat Neurological: Cranial nerves II-XII grossly intact, DTR 2+/4, muscle strength 4/5 at major joints Psych/Mental Status: Flat affect Assessment & Plan Assessment/Plan (1) Adult failure to thrive: PLAN: This is 66-year-old female with history of COPD, anemia who was recently discharged from [facility] on 01/21 after treatment for pancreatitis and drain placement for bowel perforation. Patient on discharge antibiotics Bactrim Augmentin and fluconazole. Patient has not been eating with no appetite with vomiting on p.o. intake with medications/meal. Patient admitted with confusion and weakness and adult failure to thrive 1. Adult failure to thrive: Patient lost about 8 pounds suggestive of acute severe protein calorie malnutrition from 133 pounds, prior to procedure to c urrent 125 pound. Interpersonal Communications Professor consulted. Patient does not want PICC line/TPN. PICC line canceled. Patient also J or G-tube. Was discussed with strapper operator. PT OT evaluate and treat Patient is open to going to a residential facility Case management to assist 2. Acute encephalopathy probably due to oxycodone/polypharmacy: Resolved. Patient was also found to have driving on the wrong side by the daughter. I would not suggest driving back after discharge but patient can follow-up with vertical borer and PCP to check. 3. Chronic pancreatitis from chronic alcohol use complicated with biliary and pancreatic strictures: Patient declined Whipple's procedure in the past. She stated she had 2 times bowel perforation and attempt to put biliary stricture first 1 about 1 and half years ago and second 1 12/28. ERCP from 12/28 reviewed. It shows major inflammatory stricture in the lower one third of main bile duct which was successfully dilated. I do not see mention of biliary stenting in procedure note but patient is stated she had biliary stent which could not be found and caused bowel perforation. 4. Recent abdominal abscesses: Patient has 2 drain put in in [facility]. Has serous fluid. She was discharged on 01/21, after 3 weeks of hospital course when she was admitted back on 01/22. Patient had to follow Dr. Esparza at [facility] about getting her drains removed at later point. Patient was not able to take her pills therefore Augmentin fluconazole and Bactrim was held. In the meantime patient on IV Unasyn and IV fluconazole. We will try to get medical record from [facility] regarding cultures PT and OT to continue 5. History of recent bilateral pneumonia: Chest x-ray individually reviewed. Shows a small left CP angle effusion with obliteration. Bibasilar atelectasis. Patient does not have acute symptoms suggestive of pneumonia. VT prophylaxis, moderate risk on enoxaparin. Living will/advanced directive/end of life care: Patient does not have living will or advanced directive. She states that she does not have good quality of life because of loss of appetite, could not eat. After discussion of benefits/risks procedures involved with full code, DNR CC arrest and DNR CC, the patient opted for full code. Patient does want artificial life support including intubation, tube feed, ventilator and/chest compression, central venous catheter, vasopressor and DC shock if needed Total time spent in [id number] encounter in discussion of advanced directive 16 minutes. PLAN: Plan VTE prophylaxis: Moderate risk. Enoxaparin. CODE STATUS: Addressed with the patient. Patient wishes to be full CODE STATUS. Charges/Coding Visit Charges Inpatient E&M: 44639 Subs Hosp L3 Procedures Hospitalists Procedures: 68354 Advncd Care Plan 30 Min
[2022-01-23 08:05] VITALS: BP 106/92; PULSE 80; RESP 18; TEMP 36.4; O2SAT 91
[2022-01-23 08:08] VITALS: BP 106/92; PULSE 80; RESP 18; TEMP 36.4; O2SAT 91
--- NOTE | 2022-01-23 08:09 | PCA ---
[facility] of chart
[2022-01-23] MEDS: oxyCODONE 5 MG Tablet PO ×2 (09:46→17:31)
[2022-01-23] MEDS: Pantoprazole Sodium 40 MG Tablet PO (09:46)
[2022-01-23] MEDS: Senna/Docusate Sodium 1 Tablet PO ×2 (09:46→21:37)
[2022-01-23] MEDS: Enoxaparin 40 MG/0.4 ML Syringe SC (09:50)
--- NOTE | 2022-01-23 10:25 | CASEMGMT ---
RN OSCAR Face to Face with patient for initial transition planning/care coordination assessment. RN CM introduced self and role at [facility]. Patient sitting in chair, alert and oriented. Patient willing to participate in assessment and is able to answer all questions appropriately. Care providers, pharmacy, and demographics verified. Patient wishes to discharge home with possible HHC, patient willing to go to SNF if needed for additional therapy. Patient states she has no further needs or concerns at this time. CM to follow for discharge planning needs that may arise. PCP: Corine Specialists: ZARINA Esparza; Friend, ZARINA; Alfred setter machine Preferred Pharmacy: [facility], [facility] retail at discharge. Insurance: [employer] Prescription Benefit: yes Living Will/HPOA: none LNOK: daughter Living Arrangements: Patient lives alone in a mobile home with ramp to enter the home. Patient states she was independent at home. Transportation: self DME/HHC: Patient states she has shower chair, BSC, raised toilet, walker, hospital bed with trapeze bar. No previous HHC or SNF. Will monitor progress with therapy for recommendations Disposition Plan: TBD anticipate home with HHC vs SNF pending progress with therapy. Mackenzie HERNANDEZN, RN, CM
[2022-01-23 13:30] VITALS: O2SAT 97
[2022-01-23] MEDS: 0.9% Saline Lock 10 ML Syringe IV (13:51)
--- NOTE | 2022-01-23 14:57 | CASEMGMT ---
JONATHAN MOORE in to pt room to discuss dc planning. Pt lying in bed with oxygen on. Pt has 2 SANDRA's out on gown. Pt states she is not sure she can return home with her two big dogs. She states her brother is caring for them now. Patient states she would like to return home and would like to see how she feels tomorrow. Patient was provided a list of [facility] providers including quality and resource use data and consistent with the patient?s preferred geographic region, medical needs, and insurance network were provided from the [employer]. Patient to review list and JONATHAN MOORE to check back in tomorrow with her. Spoke with pt nurse, no wounds just SANDRA drains that are being flushed.
[2022-01-23 15:16] VITALS: BP 152/70; PULSE 72; RESP 18; TEMP 36.6; O2SAT 97
--- NOTE | 2022-01-23 15:19 | PCA ---
got complete medical record faxed from [facility] placed in chart
[2022-01-23] MEDS: Ensure Plus High Protein 120 ML LIQUID PO ×2 (17:31→21:41)
[2022-01-23 21:30] VITALS: BP 173/71; PULSE 68; RESP 16; TEMP 36.5; O2SAT 96
[2022-01-23] MEDS: QUEtiapine 100 MG Tablet PO (21:36)
[2022-01-23] MEDS: Pramipexole Di-HCl 0.5 MG Tablet PO (21:36)
[2022-01-23] MEDS: oxyCODONE 5 MG Tablet 10 MG PO (21:41)
[2022-01-24] VITALS (8 sets, daily range): BP systolic 132–172; BP diastolic 68–93; PULSE 72–81; RESP 16–18; TEMP 36.6–36.8; O2SAT 92–95
[2022-01-24 08:47] LABS: Absolute Lymphocyte Count 2.13 X10^3/uL (0.83-4.51); Absolute Neutrophil Count 3.8 X10^3/uL (2.0-7.7); Basophil# 0.02 X10^3/uL; Basophil% 0.3 % (0-1); Eosinophil# 0.14 X10^3/uL; Hematocrit 35.9 % (37-47); Hemoglobin 11.5 g/dL (12.0-15.0); Lymphocyte # 2.13 X10^3/ul (0.83-4.51); Lymphocyte % 30.9 % (19-41); Mean Corpuscular Hgb 31.9 pg (27.0-32.0); Mean Corpuscular Volume 99.7 fL (81-99); Mean Platelet Vol. 10.2 fl (6.2-12.0); Monocyte# 0.78 X10^3/uL; Monocyte% 11.3 % (0-10); NRBC Flagged by Analyzer 0 % (0-5); Neutrophil % 55.1 % (47-70); Platelet Count 320 K/mm3 (150-450); RBC Distribution Width CV 15.7 % (11.6-14.6); RBC Distribution Width SD 57.6 fl (35.1-43.9); White Blood Count 6.9 K/mm3 (4.4-11.0)
[2022-01-24 09:29] LABS: ALB/GLOB Ratio 0.7 RATIO (0.9-2.4); AST(SGOT) 21 U/L (15-37); Alanine Aminotransfer ALT/SGPT 22 U/L (13-56); Albumin, Serum 2.3 g/dL (3.2-5.0); Alkaline Phosphatase 49 U/L (45-117); Anion Gap 5 (5-15); BUN 7 mg/dL (7-18); Calcium,Total 8.4 mg/dL (8.5-10.1); Chloride 107 mmol/L (98-107); Creatinine, Serum 0.58 mg/dL (0.55-1.02); EST Glomerular Filtration Rate 110 mL/min (>60); Est Glom Filt Rate - Afr Amer 133 mL/min (>60); Estimated Creatinine Clearance 84.62 ml/min; Globulin 3.4 g/dL (2.2-4.2); Glucose 106 mg/dL (74-106); Potassium 3.2 mmol/L (3.5-5.1); Protein, Total 5.7 g/dL (6.4-8.2); Sodium Level 140 mmol/L (136-145)
[2022-01-24] MEDS: Ensure Plus High Protein 120 ML LIQUID PO ×4 (09:57→22:17)
[2022-01-24] MEDS: Senna/Docusate Sodium 1 Tablet PO ×2 (09:58→22:14)
[2022-01-24] MEDS: Enoxaparin 40 MG/0.4 ML Syringe SC (09:58)
[2022-01-24] MEDS: Pantoprazole Sodium 40 MG Tablet PO (09:58)
[2022-01-24] MEDS: 0.9% Saline Lock 10 ML Syringe IV (09:58)
--- NOTE | 2022-01-24 10:13 | CASEMGMT ---
Addendum entered by Yamilet Peter 01/24/22 12:54: Spoke with hospitalist who states pt declined Peg tube today. JONATHAN MOORE in to pt room to discuss with patient. Pt aware this is her decision, she states she is scared about getting the tube. Pt at this time does not want peg and will consider. Updated hospitalist. Addendum entered by Yamilet Peter 01/24/22 12:43: JONATHAN MOORE in to pt room, pt with family at bedside. Pt states she wants to go to [facility]. Family states they have called and there is a bed available. Family also states pt needs picc and TPN that she refused prior. Updated SW and hospitalist. Original Note: JONATHAN MOORE in to pt room, pt states she is too weak to return home. She would like to look in to options for s/t rehab in a SNF. Updated CLEM.
--- NOTE | 2022-01-24 10:52 | CASEMGMT ---
Addendum entered by Juana Betancur 01/24/22 12:52: Market Specialist in to meet with pt and family. Family and pt have decided would like [facility]. Pt family on phone with [facility] at this time. Family was notified bed are open and pt can be accepted. SW explained a referral would still need to be sent. Family understanding after discussion. SW explained SNF will review information sent and make a determination based on this information. SW asked for back-up choice incase pt is not accepted. Family hesitant to provide second choice until SW explained [facility] would be sent referral first and second choice would only be contacted if pt is not accepted at first choice. Family stated [facility]. SW updated Trinidad Obrien discharge office assistant. Trinidad to send referral. Plan: [facility], pending acceptance and precert. LUZMA Hidalgo Original Note: Social Work SW in to pt room to discuss d/c plan. SW introduced self and role at the hospital. Pt agreeable to discussing discharge plan. A printed list of SNF providers including quality and resource use data and consistent with the patient?s preferred geographic region, medical needs, and insurance network via the [facility] Guide Link. Pt is unsure which provider to pick at this time. Pt would like to review choices with family this afternoon. SW to meet with pt and family later today to obtain pt choice. PLAN: SNF, pending acceptance and precert LUZMA Hidalgo
--- NOTE | 2022-01-24 11:54 | PCM.PN.HOSP ---
Subjective Subjective Follow-up for fatigue, generalized weakness and abdominal abscesses Objective Data Objective Data Vital Signs: Vital Signs Temp Pulse Resp BP Pulse Ox O2 Del Method O2 Flow Rate 98.3 F 74 16 145/81 H 95 Nasal Cannula 2 01/24/22 08:02 01/24/22 08:02 01/24/22 08:02 01/24/22 08:02 01/24/22 10:03 01/24/22 09:10 01/24/22 10:03 Oxygen Flow Rate (L/min) 2 Oxygen Delivery Method Nasal Cannula Weight: 130 lb 1.164 oz Body Mass Index (BMI) 21.5 Intake & Output: Intake and Output for Last 24 Hours 01/22/22 01/23/22 01/24/22 23:59 23:59 23:59 Intake Total 2262 / 2262 352 / 352 Output Total 290 / 290 710 / 710 Balance 1971 / 1971 -358 / -358 Medical Nutrition Assessment Dietitian: Malnutrition Criteria Met Start: 01/23/22 10:41 Freq: Status: Active Protocol: Document 01/23/22 10:41 AG (Rec: 01/23/22 10:42 AG [id number]) Nutrition Malnutrition Evidence of Malnutrition Exists Yes Malnutrition (moderate): Acute Illness/Injury Evidenced By Suboptimal Energy Intake ( Moderate),Weight Loss ( Moderate),Physical Changes ( Moderate) Clinical Problem Acute Disease or Injury Related Malnutrition Etiology moderate, acute malnutrition r /t inadequate energy intake d/ t GI dysfunction Signs/Symptoms as evidenced by estimated PO intake meeting <75% of estimated energy needs >1 week ; unintentional wt loss of 3. 1kg/5% <1 month; Moderate muscle wasting/fat loss evident per physical exam in orbital, temporal, clavicle, and acromion areas Status Active Problem Recommendation Dietitian Recommendations/Changes Recommend advance diet as tolerated to regular-fat restricted, fiber restricted. Continue to offer ensure plus high protein although anticipate pt will continue to refuse. Will offer ensure clear w/ meals. Will monitor daily wts, PO intake, and adjust recommendations as indicated- may be appropriate for TPN if PO intake declines or if pt does not tolerate diet and if pt is agreeable to TPN. Lab / Micro Data Result Diagrams: 01/24/22 08:35 01/24/22 08:35 Labs: Laboratory Results - last 24 hr 01/24/22 08:35: WBC 6.9, RBC 3.60 L, Hgb 11.5 L, Hct 35.9 L, MCV 99.7 H, MCH 31.9, MCHC 32.0, RDW Std Deviation 57.6 H, RDW Coeff of Fidelina 15.7 H, Plt Count 320, MPV 10.2, Immature Gran % (Auto) 0.400, Neut % (Auto) 55.1, Lymph % (Auto) 30.9, Bertie % (Auto) 11.3 H, Eos % (Auto) 2.0, Baso % (Auto) 0.3, Absolute Neuts (auto) 3.8, Absolute Lymphs (auto) 2.13, Nucleated RBC % 0 01/24/22 08:35: Sodium 140, Potassium 3.2 L, Chloride 107, Carbon Dioxide 28.0, Anion Gap 5, BUN 7, Creatinine 0.58, Estim Creat Clear Calc 84.62, Est GFR (MDRD) Af Amer 133, Est GFR (MDRD) Non-Af 110, BUN/Creatinine Ratio 12.0, Glucose 106, Calcium 8.4 L, Total Bilirubin 0.20, AST 21, ALT 22, Alkaline Phosphatase 49, Total Protein 5.7 L, Albumin 2.3 L, Globulin 3.4, Albumin/Globulin Ratio 0.7 L Physical Exam Narrative Seen and examined. Patient has history of chronic pancreatitis with pancreatic duct stricture. While attempting biliary/pancreatic stent she had rupture about 11/2 years ago and similar thing happened on 12/28 when biliary sphincterotomy and CBD was dilated. As per patient, she had a stent put and had bowel perforation in but I do not see in Dr. Fu's operative note Patient came back to ER Was transferred to [facility]. She was found to have intra-abdominal abscesses and phlegmon for which she had abdominal drain and discharge on January 21 and she came back hospital on patient is not able to eat or drink cannot Physical exam General: Alert, Oriented x3, Cooperative, severe acute protein calorie malnutrition HEENT: Atraumatic, PERRLA, EOMI, Normocephalic Oral: Oral mucosa dry no Gingival or Mucosal Lesions/ Ulcerations Neck: Supple, No JVD, Negative Carotid Bruits Lungs: Air entry diminished in bilateral lung bases. Bibasilar crepitations. Cardiovascular: Regular rate, Regular Rhythm, Normal S1, Normal S2, No murmurs Abdomen: Bowel Sounds Present, Soft, 2 abdominal drains present. Purulent color pus in tube. Mild generalized tenderness mainly in lower quadrants. : No renal angle tenderness. No suprapubic tenderness. Extremities: No edema, Capillary Refill Less than 3 Seconds Skin: No rashes, No breakdown Musculoskeletal: No Tenderness to Palpation of Joints or Extremities. Moderate muscle atrophy, loss of subcutaneous fat Neurological: Cranial nerves II-XII grossly intact, DTR 2+/4, muscle strength 4/5 at major joints Psych/Mental Status: Flat affect Assessment & Plan Assessment/Plan (1) Adult failure to thrive: PLAN: This is 66-year-old female with history of COPD, anemia who was recently discharged from [facility] on 01/21 after treatment for pancreatitis and drain placement for bowel perforation. Patient on discharge antibiotics Bactrim Augmentin and fluconazole. Patient has not been eating with no appetite with vomiting on p.o. intake with medications/meal. Patient admitted with confusion and weakness and adult failure to thrive 1. Adult failure to thrive: Patient lost about 8 pounds suggestive of acute severe protein calorie malnutrition from 133 pounds, prior to procedure to current 125 pound. Supervisor [employer] consulted. Patient does not want PICC line/TPN. PICC line canceled. Patient also J or G-tube. Was discussed with advocacy director. PT OT evaluate and treat Patient is open to going to a retirement facility. Case management to assist 2. Acute encephalopathy probably due to oxycodone/polypharmacy: Resolved. Patient was also found to have driving on the wrong side by the daughter. I would not suggest driving back after discharge but patient can follow-up with supervising appraiser and PCP to check. 01/24: Acute encephalopathy resolved. 3. Chronic pancreatitis from chronic alcohol use complicated with biliary and pancreatic strictures: Patient declined Whipple's procedure in the past. She stated she had 2 times bowel perforation and attempt to put biliary stricture first 1 about 1 and half years ago and second 1 12/28. ERCP from 12/28 reviewed. It shows major inflammatory stricture in the lower one third of main bile duct which was successfully dilated. I do not see mention of biliary stenting in procedure note but patient is stated she had biliary stent which could not be found and caused bowel perforation. 01/24: Patient gets abdominal pain half an hour after eating food. States since she is trying to force in the food. 4. Recent abdominal abscesses: Patient has 2 drain put in in [facility]. Has serous fluid. She was discharged on 01/21, after 3 weeks of hospital course when she was admitted back on 01/22. Patient had to follow Dr. Esparza at [facility] about getting her drains removed at later point. Patient was not able to take her pills therefore Augmentin fluconazole and Bactrim was held. In the meantime patient on IV Unasyn and IV fluconazole. We will try to get medical record from [facility] regarding cultures PT and OT to continue 01/24: Peritoneal fluid culture from [facility] reviewed in [facility]. Gram stain reported no organism moderate PMNs. Culture few Nandini albicans. Continue antibiotic. 5. History of recent bilateral pneumonia: Chest x-ray individually reviewed. Shows a small left CP angle effusion with obliteration. Bibasilar atelectasis. Patient does not have acute symptoms suggestive of pneumonia. VT prophylaxis, moderate risk on enoxaparin. Patient had echo on 01/19/2022 in [facility]. Reported technically difficult study, LV normal size EF 56%. Grade 1 LV diastolic dysfunction. RV systolic function normal. No significant valve disease. 1-2+ MR, trivial AI. Trivial TR. Living will/advanced directive/end of life care: Patient does not have living will or advanced directive. She states that she does not have good quality of life because of loss of appetite, could not eat. After discussion of benefits/risks procedures involved with full code, DNR CC arrest and DNR CC, the patient opted for full code. Patient does want artificial life support including intubation, tube feed, ventilator and/chest compression, central venous catheter, vasopressor and DC shock if needed Total time spent in [id number] encounter in discussion of advanced directive 16 minutes. PLAN: Plan VTE prophylaxis: Moderate risk. Enoxaparin. CODE STATUS: Addressed with the patient. Patient wishes to be full CODE STATUS. Charges/Coding Visit Charges Inpatient E&M: 78923 Subs Hosp L2
--- NOTE | 2022-01-24 13:34 | CASEMGMT ---
Discharge Remote Sensing Specialist Trinidad segura title i assistant sent referral to [facility] via [facility]. Will follow up. Plan: [facility], Waiting Acceptance Trinidad Yusuf Discharge Remote Sensing Specialist
--- NOTE | 2022-01-24 15:15 | CASEMGMT ---
Discharge Repairer Welding Equipment Trinidad segura assistant facility manager got a call from Alejandra at [facility]. Patient was denied. CLEM Arias notified. Referral sent to patient second choice [facility]. Plan: [facility], Waiting on Acceptance Trinidad Yusuf Discharge Repairer Welding Equipment
--- NOTE | 2022-01-24 15:52 | CASEMGMT ---
Social Work SW notified pt and family of denial for [facility]. PT and family upset. SW explained no reason was given. SW explained referral was sent to [facility]. Pt and family voiced understanding. PLAN: [facility], pending acceptance and precert LUZMA Hidalgo
--- NOTE | 2022-01-24 15:55 | CASEMGMT ---
Addendum entered by Yamilet Peter 01/24/22 15:56: Pt family notified that pt has decided to have picc line now. Family left for the day, JONATHAN MOORE in to pt room. Pt states she is agreeable to picc line at this time. Updated hospitalist. Original Note: Spoke with hospitalist who states pt declined picc today. JONATHAN MOORE in to pt room to discuss with patient. Pt aware this is her decision, she states she is scared about getting the picc. Pt at this time does not want picc and will consider. Updated hospitalist. Addendum entered by Yamilet Peter 01/24/22 12:43: JONATHAN MOORE in to pt room, pt with family at bedside. Pt states she wants to go to [facility]. Family states they have called and there is a bed available. Family also states pt needs picc and TPN that she refused prior. Updated SW and hospitalist. Original Note: JONATHAN MOORE in to pt room, pt states she is too weak to return home. She would like to look in to options for s/t rehab in a SNF. Updated SW.
--- NOTE | 2022-01-24 16:30 | NURSING ---
talked with well drill operator regarding PICC placement. scheduled for 01/25/22 @[id number].
[2022-01-24] MEDS: oxyCODONE 5 MG Tablet 10 MG PO (17:12)
[2022-01-24] MEDS: Pramipexole Di-HCl 0.5 MG Tablet PO (22:14)
[2022-01-24] MEDS: QUEtiapine 100 MG Tablet PO (22:15)
[2022-01-25] VITALS (8 sets, daily range): BP systolic 124–156; BP diastolic 72–84; PULSE 82–89; RESP 16–18; TEMP 36.9–37.5; O2SAT 89–99
[2022-01-25 05:28] LABS: Absolute Lymphocyte Count 2.22 X10^3/uL (0.83-4.51); Absolute Neutrophil Count 3.3 X10^3/uL (2.0-7.7); Basophil# 0.03 X10^3/uL; Basophil% 0.5 % (0-1); Eosinophil# 0.18 X10^3/uL; Eosinophils% 2.8 % (0-5); Hematocrit 35.2 % (37-47); Hemoglobin 11.6 g/dL (12.0-15.0); Lymphocyte # 2.22 X10^3/ul (0.83-4.51); Mean Corpuscular Hgb 32.7 pg (27.0-32.0); Mean Corpuscular Volume 99.2 fL (81-99); Mean Platelet Vol. 9.7 fl (6.2-12.0); Monocyte# 0.77 X10^3/uL; Monocyte% 11.8 % (0-10); NRBC Flagged by Analyzer 0 % (0-5); Neutrophil % 50.6 % (47-70); Platelet Count 268 K/mm3 (150-450); RBC Distribution Width CV 15.3 % (11.6-14.6); RBC Distribution Width SD 56.8 fl (35.1-43.9); Red Blood Count 3.55 M/mm3 (4.2-5.4); White Blood Count 6.5 K/mm3 (4.4-11.0)
[2022-01-25 05:55] LABS: ALB/GLOB Ratio 0.7 RATIO (0.9-2.4); AST(SGOT) 22 U/L (15-37); Alanine Aminotransfer ALT/SGPT 22 U/L (13-56); Albumin, Serum 2.4 g/dL (3.2-5.0); Alkaline Phosphatase 50 U/L (45-117); Anion Gap 5 (5-15); BUN 8 mg/dL (7-18); BUN/Creat Ratio 16.6 RATIO (10-20); Calcium,Total 8.5 mg/dL (8.5-10.1); Chloride 106 mmol/L (98-107); Creatinine, Serum 0.48 mg/dL (0.55-1.02); EST Glomerular Filtration Rate 137 mL/min (>60); Est Glom Filt Rate - Afr Amer 166 mL/min (>60); Estimated Creatinine Clearance 102.25 ml/min; Globulin 3.4 g/dL (2.2-4.2); Glucose 102 mg/dL (74-106); Potassium 2.9 mmol/L (3.5-5.1); Protein, Total 5.8 g/dL (6.4-8.2); Sodium Level 139 mmol/L (136-145)
--- NOTE | 2022-01-25 08:55 | CASEMGMT ---
Discharge Underwriting Assistant This hand sign writer called to follow up on referral and left a message. Kyra ELAM Distributor Of Directories
[2022-01-25] MEDS: ALPRAZolam 0.5 MG Tablet 1 MG PO (09:37)
[2022-01-25] MEDS: oxyCODONE 5 MG Tablet 10 MG PO ×2 (09:38→18:21)
[2022-01-25] MEDS: Pantoprazole Sodium 40 MG Tablet PO (09:42)
[2022-01-25] MEDS: Enoxaparin 40 MG/0.4 ML Syringe SC (09:42)
[2022-01-25] MEDS: Senna/Docusate Sodium 1 Tablet PO ×2 (09:42→21:16)
--- NOTE | 2022-01-25 12:16 | CM.UR ---
Social Work SW called [facility] to check on referral. Yolanda out for the day. SW was notified facility has no open beds. SW in to meet with pt to discuss alternative choice for SNF. Pt shared next choice would be [facility] then [facility]. SW [facility] Plan: [facility], pending acceptance and precert LUZMA Hidalgo
--- NOTE | 2022-01-25 14:26 | CASEMGMT ---
Social Work SW received reply from [facility] via [facility]. SNF unable to accept pt due to hx of alcohol & drug abuse and Personality Disorder diagnosis. SW [facility] PLAN: [facility], pending acceptance and precert LUZMA Hidalgo
[2022-01-25] MEDS: Ensure Plus High Protein 120 ML LIQUID PO ×2 (14:51→17:16)
--- NOTE | 2022-01-25 18:59 | PN.HOSP_ITS ---
Subjective Subjective Patient was seen and examined today, she was able to eat a whopper today at lunch without any problem, a PICC line had been inserted this morning for possible TPN-this examiner does not feel the patient needs TPN at this time, if things change however, she may need TPN in the near future so have elected to keep her PICC line and. We are currently awaiting approval for transfer to an extended care facility for rehab services. I talked with gastroenterology about her care today and asked them to consult regarding the need for any TPN at this time. Objective Data Objective Data Vital Signs: Vital Signs Temp Pulse Resp BP Pulse Ox O2 Del Method O2 Flow Rate 98.6 F 82 16 124/72 H 99 Room Air 2 01/25/22 14:53 01/25/22 14:53 01/25/22 14:53 01/25/22 14:53 01/25/22 14:53 01/25/22 14:57 01/25/22 07:53 Oxygen Flow Rate (L/min) 2 Oxygen Delivery Method Room Air Weight: 58 kg Body Mass Index (BMI) 21.5 Intake & Output: Intake and Output for Last 24 Hours 01/23/22 01/24/22 01/25/22 23:59 23:59 23:59 Intake Total 2262 / 2262 1208 / 1208 436 / 436 Output Total 290 / 290 1680 / 1680 1140 / 1140 Balance 1971 / 1971 -472 / -472 -704 / -704 Medical Nutrition Assessment Dietitian: Malnutrition Criteria Met Start: 01/23/22 10:41 Freq: Status: Active Protocol: Document 01/23/22 10:41 (Rec: 01/23/22 10:42 [id number]) Nutrition Malnutrition Evidence of Malnutrition Exists Yes Malnutrition (moderate): Acute Illness/Injury Evidenced By Suboptimal Energy Intake ( Moderate),Weight Loss ( Moderate),Physical Changes ( Moderate) Clinical Problem Acute Disease or Injury Related Malnutrition Etiology moderate, acute malnutrition r /t inadequate energy intake d/ t GI dysfunction Signs/Symptoms as evidenced by estimated PO intake meeting <75% of estimated energy needs >1 week ; unintentional wt loss of 3. 1kg/5% <1 month; Moderate muscle wasting/fat loss evident per physical exam in orbital, temporal, clavicle, and acromion areas Status Active Problem Recommendation Dietitian Recommendations/Changes Recommend advance diet as tolerated to regular-fat restricted, fiber restricted. Continue to offer ensure plus high protein although anticipate pt will continue to refuse. Will offer ensure clear w/ meals. Will monitor daily wts, PO intake, and adjust recommendations as indicated- may be appropriate for TPN if PO intake declines or if pt does not tolerate diet and if pt is agreeable to TPN. Lab / Micro Data Result Diagrams: 01/25/22 05:21 01/25/22 05:21 Labs: Laboratory Results - last 24 hr 01/25/22 05:21: WBC 6.5, RBC 3.55 L, Hgb 11.6 L, Hct 35.2 L, MCV 99.2 H, MCH 32. 7 H, MCHC 33.0, RDW Std Deviation 56.8 H, RDW Coeff of Fidelina 15.3 H, Plt Count 268, MPV 9.7, Immature Gran % (Auto) 0.300, Neut % (Auto) 50.6, Lymph % (Auto) 34.0, [place] % (Auto) 11.8 H, Eos % (Auto) 2.8, Baso % (Auto) 0.5, Absolute Neuts (auto) 3.3, Absolute Lymphs (auto) 2.22, Nucleated RBC % 0 01/25/22 05:21: Sodium 139, Potassium 2.9 L, Chloride 106, Carbon Dioxide 28.0, Anion Gap 5, BUN 8, Creatinine 0.48 L, Estim Creat Clear Calc 102.25, Est GFR (MDRD) Af Amer 166, Est GFR (MDRD) Non-Af 137, BUN/Creatinine Ratio 16.6, Glucose 102, Calcium 8.5, Total Bilirubin 0.20, AST 22, ALT 22, Alkaline Phosphatase 50, Total Protein 5.8 L, Albumin 2.4 L, Globulin 3.4, Albumin/Globulin Ratio 0.7 L Physical Exam Const alert, oriented x3, no apparent distress and healthy appearing General Appearance: cooperative, well kempt and well developed Orientation / Consciousness: awake, oriented to person, oriented to place and oriented to time HEENT normocephalic and moist oral mucous membranes Eyes PERRL, EOMs intact bilaterally and conjunctivae normal Neck supple, no JVD, thyroid normal and no carotid bruits General: trachea midline Resp normal respiratory effort and clear to auscultation bilaterally Auscultation: Negative for rales, rhonchi or wheezes Cardio regular rate, regular rhythm, no murmurs, no rub and no gallops GI GI Narrative: There are noted to be 2 drains present in the abdominal wall with suction bulbs attached, abdomen is soft and nontender at this time, bowel sounds are present in all 4 quadrant Extremity no clubbing, cyanosis or edema Skin no rashes or lesions noted General Skin Exam: no breakdown Neuro oriented x3, CN's II-XII intact bilaterally, no focal motor deficits and no sensory deficits noted Sensorium / Orientation: awake and alert Speech: speech normal Psych affect normal Assessment & Plan Assessment/Plan (1) Abdominal abscess: PLAN: Plan 1. Acute debility-PT and OT will continue to see the patient, she will need placement in a long term facility at least short-term rehab services. #2 toxic encephalopathy-resolved at this time, suspected to be secondary to narcotics usage #3 moderate acute protein caloric malnutrition-diet is a regular diet as recommended, Ensure clear with meals is being given to the patient, daily weights will be monitored, p.o. intake will be monitored, again I do not feel the patient needs TPN at this time unless her p.o. intake declines dramatically, patient refuses to consider a PEG tube insertion-she states she had a PEG tube in the past and did not like it. Again patient currently has a PICC line and, I have elected to leave it in at this time. Patient will be seen by flori umanzorerologsara for consultation. #4 chronic pancreatitis-complicates care, management, recovery, and prognosis #5 abdominal abscess-patient has [address] at this time, she will need to follow-up with her [facility] physician regarding removing these drains. Patient is currently on Unasyn and Diflucan. I will need to verify with infectious diseases how long the patient needs to remain on antibiotics Charges/Coding Visit Charges Inpatient E&M: 20355 Subs Hosp L2
--- NOTE | 2022-01-25 19:08 | PCM.CONS.GEN ---
Assessment & Plan Assessment/Plan (1) Abdominal abscess: PLAN: She has abdominal drain and it seems to be draining fairly well. She will need that removed in the future by surgery or IR. 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 She needs to have her Creon increased to 4 to 5 pills per meal as she is eating. She will get chronic pain with eating due to chronic pancreatitis and with recent history of acute pancreatitis she will get even more pain. I told her that she will need to go on an stool softener also. (3) Severe protein-calorie malnutrition: PLAN: She does not need TPN at this time as she is tolerating p.o. which is better for her got and it we will cut down on possible translocation of bacteria along with decreased risk of TPN induced cholestasis. I will put her on scheduled Reglan and azithromycin in order to increase motility to her gut. She will also need to be on a stool softener. HPI Consult Data Date of Consult: 01/25/22 HPI Narrative Reason for Consultation: Need for tpn HPI Narrative: DAVID OTIS, is a 66 F who presents DAVID BERG, is a 66 F who presents to the office today for a follow-up visit after being recently discharged from the hospital.Sukumar established with this clinic 09.20.21 with referral from PCP for continued management of pancreatitis with pancreatic duct stricture. History of acute pancreatitis several times a month secondary to ampullary stricture and pancreatic duct stricture. Addition symptoms include steatorrhea and severe protein calorie malnutrition with weight loss. ERCP performed with short pancreatic duct stent placed with subsequent contained duodenal perforation. Then underwent PEG placement that was not tolerated well and removed. Repeat ERCP and pancreatic duct stenting; however, stent dislodged. No alcohol use. Quite smoking 2.2013 following ?s r/t COPD. PMH HCV without coma in 1979 Tx with interferon and ribavirin, negative RNA 2015; bulimia, COPD, cochlear implant with silver screws, epileptic petit mal status; hyperlipidemia; nephrotic syndrome; orthostatic hypotension; osteoporosis; psoriasis; rheumatoid arthritis (Dr. Bowden) US RUQ 01.07.2020 finding coarse echotexture of liver. Remaining exam without abnormality. EGD and EUS 04.06.20 finding mild duodenitis; diffusely dilated PD suspect pancreatic divisum; normal CBD. Cholecystectomy laparoscopic 06.03.[address] Esparza. ERCP 08.02.20 with major ampulla sphincterotomy with PD stenting. Subsequent contained duodenal perforation, not peritonitic. Upper GI 08.08.20 finding no evidence for full-thickness perforation to the level of the ligament of Treitz. ERCP 09.26.20 for stent replacement. Stool testing 02.10.21 enteric pathogens, C.Difficile WNL. She underwent ERCP on 01/04/2022 and was discovered to have a very torturous pancreatic duct.? The pancreatic duct stent was placed.? She came back to the hospital the next day with excruciating pain.? She was discovered to have a fluid collection next to the duodenum she was sent to [facility] evaluation.? She was discovered to have a fluid collection adjacent to the duodenum and a percutaneous drain was placed.? She still has a drain in place at this time.? She has been getting good drainage until recently.? She is having a lot of pain and does not have any pain medicine besides tramadol at home.? She says that she is eating as much as she can with pancreatic enzymes.? She has been on pancreatic enzymes.? The suggestion was for her to stay in the hospital? on TPN.? As per nursing she ate a very good diet for lunch and had part of her dinner and an Ensure with dinner. She is having some abdominal pain at this time. FORMERLY [facility], [facility] Medical History (Updated 01/22/22 @ 18:[address] Mehran Dodd, DO) Abnormal findings on diagnostic imaging of liver and biliary tract Abnormal weight loss Anemia Anxiety Arthritis Back pain Broken back Bulimia Calculus of gallbladder without cholecystitis without obstruction Cardiology follow-up encounter Chest pain Chronic pancreatitis Cochlear implant in place COPD (chronic obstructive pulmonary disease) DDD (degenerative disc disease), cervical Easy bruising Former smoker Hepatitis Hepatitis C High cholesterol History of echocardiogram History of irregular heartbeat History of stress test Hx of fracture of nose Idiopathic chronic pancreatitis Injury of back Injury of head and neck Latent tuberculosis Leg cramps Marijuana use Migraine headache Migraines Nicotine dependence Osteoporosis Pancreatic duct stricture Personality disorder Psoriasis Restless legs Rheumatoid arthritis Severe protein-calorie malnutrition Shortness of breath on exertion Steatorrhea, pancreatic Syncope TIA (transient ischemic attack) Wears dentures Wears hearing aid Home Medications alprazolam 1 mg tablet (Xanax) 1 mg PO BID mood 12/16/13 [History Last Taken 01/04/22] rizatriptan 10 mg tablet 10 mg PO PRN PRN Migraine Headache 05/06/17 [History Last Taken 01/03/22] apremilast 30 mg tablet (Otezla) 30 mg PO DAILY psoriasis 08/04/20 [History Last Taken 2 Days Ago ~01/03/22] calcium carbonate 600 mg-vitamin D3 10 mcg (400 unit) tablet 1 tablet PO DAILY SUPPLEMENT 08/04/20 [History Last Taken 01/03/22] kgrpal-[id number]-qdkkkhz 6,000-19,000-30,000 unit capsule,delayed rel (Creon) 2 capsule PO ACHS Check with primary doctor 08/04/20 [History Last Taken Unknown] magnesium oxide 400 mg (241.3 mg magnesium) tablet 400 mg PO DAILY SUPPLEMENT 08/04/20 [History Last Taken 01/04/22] omega-3 fatty acids 1,000 mg capsule 2,000 mg PO DAILY supplement 08/04/20 [History Last Taken 01/04/22] abatacept 125 mg/mL subcutaneous syringe 125 mg subcut FR Check with primary doctor 07/28/21 [History Last Taken 3 Weeks Ago ~01/01/22] albuterol sulfate 2.5 mg/3 mL (0.083 %) solution for nebulization 3 mg inhalation Q4H PRN PRN Wheezing 08/11/21 [History Last Taken 3 Weeks Ago ~12/15/21] bacitracin zinc 500 unit/gram topical ointment 1 applic topical DAILY PRN Skin Cleansing 08/11/21 [History Last Taken 01/04/22] betamethasone, augmented 0.05 % topical ointment (Diprolene (augmented)) 1 applic topical DAILY SKIN 08/11/21 [History Last Taken 01/03/22] nicotine 10 mg inhalation cartridge (Nicotrol) 1 inh inhalation 4X/DAY PRN Smoking Cessation 08/11/21 [History Last Taken 01/21/22] tretinoin 0.025 % topical gel (Retin-A) 1 applic topical QHS PSORIASIS 08/11/21 [History Last Taken 1 Week Ago ~12/29/21] losartan 50 mg tablet 25 mg PO DAILY PRN elevated BP 11/08/21 [History Last Taken 2 Weeks Ago ~12/22/21] atorvastatin 40 mg tablet 20 mg PO QHS cholesterol 01/05/22 [History Last Taken 01/21/22] ergocalciferol (vitamin D2) 1,250 mcg (50,000 unit) capsule (Vitamin D2) 1,250 mcg PO FR SUPPLEMENT 01/05/22 [History Last Taken 12/22/21] quetiapine 200 mg tablet 100 mg PO QHS RLS 01/05/22 [History Last Taken 12/26/21] ropinirole 1 mg tablet 1 mg PO QHS RLS 01/05/22 [History Last Taken 12/26/21] oxycodone 10 mg tablet 10 mg PO Q8H PRN pain 14 days #30 tabs 01/10/22 [Rx Last Taken 01/20/22] amoxicillin 875 mg-potassium clavulanate 125 mg tablet 1 tab PO BID infection 01/22/22 [History Last Taken 01/22/22] fluconazole 200 mg tablet 200 mg PO DAILY infection 01/22/22 [History Last Taken 01/22/22] pantoprazole 40 mg tablet,delayed release 40 mg PO DAILY stomach 01/22/22 [History Last Taken 01/22/22] sennosides 8.6 mg-docusate sodium 50 mg tablet (Senna Plus) 1 tab PO BID Check with primary doctor 01/22/22 [History Last Taken 01/22/22] sulfamethoxazole 800 mg-trimethoprim 160 mg tablet 1 tab PO Q12H Check with primary doctor 01/22/22 [History Last Taken 01/22/22] Allergy/AdvReac Type Severity Reaction Status Date / Time bupropion Allergy Other Verified 01/14/22 15:48 codeine Allergy Hives Verified 01/14/22 15:48 gabapentin Allergy Other Verified 01/14/22 15:48 oxaprozin [From Daypro] Allergy Hives Verified 01/14/22 15:48 oxybutynin Allergy Unknown Verified 01/14/22 15:48 pentazocine [From Talwin] Allergy Itching Verified 01/14/22 15:48 pentazocine lactate Allergy Itching Verified 01/14/22 15:48 [From Talwin] propoxyphene HCl Allergy Hives Verified 01/14/22 15:48 [From Darvon] propoxyphene napsylate Allergy Hives Verified 01/14/22 15:48 [From Darvocet-N 100] rofecoxib [From Vioxx] Allergy Rash Verified 01/14/22 15:48 tramadol HCl [From Ultram] Allergy Upset Verified 01/14/22 15:48 Stomach cyclobenzaprine HCl AdvReac Upset Verified 01/14/22 15:48 [From Flexeril] Stomach hydrocodone AdvReac Other Verified 01/14/22 15:48 venlafaxine HCl AdvReac Upset Verified 01/14/22 15:48 [From Effexor] Stomach PINE Allergy Hives Uncoded 01/14/22 15:48 Family History Mother CVA (cerebral vascular accident) Hypertension Father Cancer Diabetes Sister Thyroid disorder Surgical History H/O section History of back surgery History of bladder surgery History of cochlear implant History of colonoscopy History of ERCP History of kyphoplasty History of mandibular surgery History of nasal surgery History of repair of cleft lip History of rotator cuff surgery History of tracheostomy Hx of cholecystectomy Hx of LASIK Hx of neck surgery Hx of tubal ligation Social History Smoking Status: Former smoker quit date: 06/02/17 pack-years: 30 alcohol intake: never ROS ROS Narrative Lack of appetite. Short of breath. Recent pneumonia. All review of systems were negative except as mentioned above in the history of present illness and the other review of systems. Physical Exam Const alert, oriented x3, no apparent distress and healthy appearing General Appearance: cooperative, well kempt and well developed Orientation / Consciousness: awake, oriented to person, oriented to place and oriented to time HEENT normocephalic and moist oral mucous membranes Eyes PERRL, EOMs intact bilaterally and conjunctivae normal Neck supple, no JVD, thyroid normal and no carotid bruits General: trachea midline Resp normal respiratory effort and clear to auscultation bilaterally Auscultation: Negative for rales, rhonchi or wheezes Cardio regular rate, regular rhythm, no murmurs, no rub and no gallops GI GI Narrative: There are noted to be 2 drains present in the abdominal wall with suction bulbs attached, abdomen is soft and nontender at this time, bowel sounds are present in all 4 quadrant Extremity no clubbing, cyanosis or edema Skin no rashes or lesions noted General Skin Exam: no breakdown Neuro oriented x3, CN's II-XII intact bilaterally, no focal motor deficits and no sensory deficits noted Sensorium / Orientation: awake and alert Speech: speech normal Psych affect normal Medical Records Data Medical Nutrition Assessment Dietitian: Malnutrition Criteria Met Start: 01/23/22 10:41 Freq: Status: Active Protocol: Document 01/23/22 10:41 AG (Rec: 01/23/22 10:42 AG [id number]) Nutrition Malnutrition Evidence of Malnutrition Exists Yes Malnutrition (moderate): Acute Illness/Injury Evidenced By Suboptimal Energy Intake ( Moderate),Weight Loss ( Moderate),Physical Changes ( Moderate) Clinical Problem Acute Disease or Injury Related Malnutrition Etiology moderate, acute malnutrition r /t inadequate energy intake d/ t GI dysfunction Signs/Symptoms as evidenced by estimated PO intake meeting <75% of estimated energy needs >1 week ; unintentional wt loss of 3. 1kg/5% <1 month; Moderate muscle wasting/fat loss evident per physical exam in orbital, temporal, clavicle, and acromion areas Status Active Problem Recommendation Dietitian Recommendations/Changes Recommend advance diet as tolerated to regular-fat restricted, fiber restricted. Continue to offer ensure plus high protein although anticipate pt will continue to refuse. Will offer ensure clear w/ meals. Will monitor daily wts, PO intake, and adjust recommendations as indicated- may be appropriate for TPN if PO intake declines or if pt does not tolerate diet and if pt is agreeable to TPN. Lab / Micro Data Result Diagrams: 01/25/22 05:21 01/25/22 05:21 Labs: Laboratory Results - last 24 hr 01/25/22 05:21: WBC 6.5, RBC 3.55 L, Hgb 11.6 L, Hct 35.2 L, MCV 99.2 H, MCH 32.7 H, MCHC 33.0, RDW Std Deviation 56.8 H, RDW Coeff of Fidelina 15.3 H, Plt Count 268, MPV 9.7, Immature Gran % (Auto) 0.300, Neut % (Auto) 50.6, Lymph % (Auto) 34.0, [place] % (Auto) 11.8 H, Eos % (Auto) 2.8, Baso % (Auto) 0.5, Absolute Neuts (auto) 3.3, Absolute Lymphs (auto) 2.22, Nucleated RBC % 0 01/25/22 05:21: Sodium 139, Potassium 2.9 L, Chloride 106, Carbon Dioxide 28.0, Anion Gap 5, BUN 8, Creatinine 0.48 L, Estim Creat Clear Calc 102.25, Est GFR (MDRD) Af Amer 166, Est GFR (MDRD) Non-Af 137, BUN/Creatinine Ratio 16.6, Glucose 102, Calcium 8.5, Total Bilirubin 0.20, AST 22, ALT 22, Alkaline Phosphatase 50, Total Protein 5.8 L, Albumin 2.4 L, Globulin 3.4, Albumin/Globulin Ratio 0.7 L Charges/Coding Visit Charges Inpatient E&M: 80617 Init Hosp L3
[2022-01-25] MEDS: QUEtiapine 100 MG Tablet PO (21:17)
[2022-01-25] MEDS: Pramipexole Di-HCl 0.5 MG Tablet PO (21:18)
[2022-01-25] MEDS: 0.9% Saline Lock 10 ML Syringe IV (21:19)
[2022-01-25] MEDS: Docusate Sodium 100 MG/10 ML UDC 200 MG PO (21:20)
[2022-01-25] MEDS: Metoclopramide 10 MG/2 ML Vial IV (23:59)
[2022-01-26] VITALS (9 sets, daily range): BP systolic 112–132; BP diastolic 61–69; PULSE 82–93; RESP 18; TEMP 36.7–37.1; O2SAT 87–97
[2022-01-26] MEDS: Metoclopramide 10 MG/2 ML Vial IV ×4 (05:08→23:36)
[2022-01-26 05:56] LABS: Absolute Neutrophil Count 3.5 X10^3/uL (2.0-7.7); Basophil# 0.03 X10^3/uL; Basophil% 0.4 % (0-1); Eosinophil# 0.15 X10^3/uL; Eosinophils% 2.2 % (0-5); Hematocrit 35.3 % (37-47); Hemoglobin 11.3 g/dL (12.0-15.0); Lymphocyte % 34.4 % (19-41); Mean Corpuscular Hgb 31.9 pg (27.0-32.0); Mean Corpuscular Volume 99.7 fL (81-99); Mean Platelet Vol. 9.9 fl (6.2-12.0); Monocyte# 0.72 X10^3/uL; Monocyte% 10.8 % (0-10); NRBC Flagged by Analyzer 0 % (0-5); Neutrophil # 3.46 X10^3/uL (2.7-7.7); Neutrophil % 51.8 % (47-70); Platelet Count 248 K/mm3 (150-450); RBC Distribution Width CV 15.4 % (11.6-14.6); RBC Distribution Width SD 57.5 fl (35.1-43.9); Red Blood Count 3.54 M/mm3 (4.2-5.4); White Blood Count 6.7 K/mm3 (4.4-11.0)
[2022-01-26] MEDS: 0.9% Saline Lock 10 ML Syringe IV ×4 (06:30→23:37)
[2022-01-26 06:34] LABS: ALB/GLOB Ratio 0.6 RATIO (0.9-2.4); AST(SGOT) 30 U/L (15-37); Alanine Aminotransfer ALT/SGPT 26 U/L (13-56); Albumin, Serum 2.3 g/dL (3.2-5.0); Alkaline Phosphatase 50 U/L (45-117); Anion Gap 6 (5-15); BUN 14 mg/dL (7-18); BUN/Creat Ratio 19.7 RATIO (10-20); Calcium,Total 8.3 mg/dL (8.5-10.1); Chloride 107 mmol/L (98-107); Creatinine, Serum 0.71 mg/dL (0.55-1.02); EST Glomerular Filtration Rate 88 mL/min (>60); Est Glom Filt Rate - Afr Amer 107 mL/min (>60); Estimated Creatinine Clearance 69.12 ml/min; Globulin 3.6 g/dL (2.2-4.2); Glucose 101 mg/dL (74-106); Potassium 3.5 mmol/L (3.5-5.1); Protein, Total 5.9 g/dL (6.4-8.2); Sodium Level 142 mmol/L (136-145)
[2022-01-26] MEDS: ALPRAZolam 0.5 MG Tablet 1 MG PO ×2 (10:00→18:35)
[2022-01-26] MEDS: oxyCODONE 5 MG Tablet 10 MG PO ×3 (10:00→23:36)
[2022-01-26] MEDS: Senna/Docusate Sodium 1 Tablet PO (10:03)
[2022-01-26] MEDS: Enoxaparin 40 MG/0.4 ML Syringe SC (10:03)
[2022-01-26] MEDS: Pantoprazole Sodium 40 MG Tablet PO (10:03)
[2022-01-26] MEDS: Docusate Sodium 100 MG Capsule PO (11:19)
--- NOTE | 2022-01-26 11:54 | CASEMGMT ---
Discharge Habitat Management Coordinator Ashley from [facility] reached out. Referral is in review. SNF wanted more information on PICC and the talk about TPN. CLEM Hastings notified. Kyra ELAM Telephone Interviewer
--- NOTE | 2022-01-26 13:25 | CT_ITS ---
STUDY: CT ABDOMEN AND PELVIS WITH CONTRAST REASON FOR EXAM: Female, 66 years old. abd abscess RADIATION DOSAGE (If Supplied By Facility): CTDIvol = ( 13.28 ) mGy, DLP = ( 625.99 ) mGycm TECHNIQUE: Transaxial images were obtained from the dome of the diaphragm to the symphysis pubis without oral contrast. Oral and amp; IV Gastrografin and amp; 100mL Isovue-370 was administered. Sagittal and coronal images were reconstructed. Individualized dose optimization techniques were used for this CT. COMPARISON: None. FINDINGS: The visualized lung bases demonstrate within the posterior basilar segments small infiltrates versus foci of atelectasis. Pleural effusions have resolved. The visualized portions of the heart are within normal limits. Normal liver. Gallbladder is surgically absent. There are 2 drainage catheters seen in the gallbladder fossa. Previously visualized multilocular abscess in this region is resolved. Small residual phlegmon is seen between the 2 drainage catheters. This measures 3.4 cm AP by 1.57 cm transverse. Normal spleen. Normal pancreas. Normal bilateral adrenal glands. Normal right kidney. Normal left kidney. Normal visualized stomach. Normal small intestine. Normal colon. Interval resolution of mural thickening of cecum and ascending colon. The appendix is visualized and appears normal. Normal abdominal aorta. Normal inferior vena cava. Normal retroperitoneum. Normal urinary bladder. Normal abdominal wall. Normal osseous structures. CT/Abdomen/Pelvis WITH Contrast IMPRESSION: Interval drainage of abscess within the gallbladder fossa. Small residual phlegmon is seen between the 2 drainage catheters which project in the right upper quadrant. Status post cholecystectomy. Electronically Signed: Richard Sharma MD, BRENDA at 17:15 EDT ,
--- NOTE | 2022-01-26 13:27 | PCM.CONS.GEN ---
Assessment & Plan Assessment/Plan (1) Abdominal abscess: PLAN: Drain in place. Last CT 01/14. Will get repeat now. Would stop abx only when abscess is resolved. If she leaves, ok to go out back on prior bactrim, augmentin, and fluc. She is not sure who is managing these from [facility]. I can assist if she does not have followup already scheduled. Will follow, thank you (2) Chronic pancreatitis: QUALIFIERS: Pancreatitis type: alcohol induced Qualified Code(s): K86.0 - Alcohol-induced chronic pancreatitis HPI Consult Data Date of Consult: 01/26/22 HPI Narrative Reason for Consultation: abd abscess HPI Narrative: DAVID BERG, is a 66 F with h/o etoh and chronic pancreatitis. Recent stent placed, complicated by duodenal perf, sent to [facility]. Perc drain placed, discharged on bactrim, augmentin, and fluc. Admitted here with worsened abd pain, need for TPN. Has been on unasyn and fluc IV here. Feeling better, seen by GI. Able to eat now. Full ROS performed and neg except as noted above. [facility] Medical History Abnormal findings on diagnostic imaging of liver and biliary tract Abnormal weight loss Anemia Anxiety Arthritis Back pain Broken back Bulimia Calculus of gallbladder without cholecystitis without obstruction Cardiology follow-up encounter Chest pain Chronic pancreatitis Cochlear implant in place COPD (chronic obstructive pulmonary disease) DDD (degenerative disc disease), cervical Easy bruising Former smoker Hepatitis Hepatitis C High cholesterol History of echocardiogram History of irregular heartbeat History of stress test Hx of fracture of nose Idiopathic chronic pancreatitis Injury of back Injury of head and neck Latent tuberculosis Leg cramps Marijuana use Migraine headache Migraines Nicotine dependence Osteoporosis Pancreatic duct stricture Personality disorder Psoriasis Restless legs Rheumatoid arthritis Severe protein-calorie malnutrition Shortness of breath on exertion Steatorrhea, pancreatic Syncope TIA (transient ischemic attack) Wears dentures Wears hearing aid Home Medications alprazolam 1 mg tablet (Xanax) 1 mg PO BID mood 12/16/13 [History Last Taken 01/04/22] rizatriptan 10 mg tablet 10 mg PO PRN PRN Migraine Headache 05/06/17 [History Last Taken 01/03/22] apremilast 30 mg tablet (Otezla) 30 mg PO DAILY psoriasis 08/04/20 [History Last Taken 2 Days Ago ~01/03/22] calcium carbonate 600 mg-vitamin D3 10 mcg (400 unit) tablet 1 tablet PO DAILY SUPPLEMENT 08/04/20 [History Last Taken 01/03/22] gjzijs-htohyafw-bsbcoga 6,000-19,000-30,000 unit capsule,delayed rel (Creon) 2 capsule PO ACHS Check with primary doctor 08/04/20 [History Last Taken Unknown] magnesium oxide 400 mg (241.3 mg magnesium) tablet 400 mg PO DAILY SUPPLEMENT 08/04/20 [History Last Taken 01/04/22] omega-3 fatty acids 1,000 mg capsule 2,000 mg PO DAILY supplement 08/04/20 [History Last Taken 01/04/22] abatacept 125 mg/mL subcutaneous syringe 125 mg subcut FR Check with primary doctor 07/28/21 [History Last Taken 3 Weeks Ago ~01/01/22] albuterol sulfate 2.5 mg/3 mL (0.083 %) solution for nebulization 3 mg inhalation Q4H PRN PRN Wheezing 08/11/21 [History Last Taken 3 Weeks Ago ~12/15/21] bacitracin zinc 500 unit/gram topical ointment 1 applic topical DAILY PRN Skin Cleansing 08/11/21 [History Last Taken 01/04/22] betamethasone, augmented 0.05 % topical ointment (Diprolene (augmented)) 1 applic topical DAILY SKIN 08/11/21 [History Last Taken 01/03/22] nicotine 10 mg inhalation cartridge (Nicotrol) 1 inh inhalation 4X/DAY PRN Smoking Cessation 08/11/21 [History Last Taken 01/21/22] tretinoin 0.025 % topical gel (Retin-A) 1 applic topical QHS PSORIASIS 08/11/21 [History Last Taken 1 Week Ago ~12/29/21] losartan 50 mg tablet 25 mg PO DAILY PRN elevated BP 11/08/21 [History Last Taken 2 Weeks Ago ~12/22/21] atorvastatin 40 mg tablet 20 mg PO QHS cholesterol 01/05/22 [History Last Taken 01/21/22] ergocalciferol (vitamin D2) 1,250 mcg (50,000 unit) capsule (Vitamin D2) 1,250 mcg PO FR SUPPLEMENT 01/05/22 [History Last Taken 12/22/21] quetiapine 200 mg tablet 100 mg PO QHS RLS 01/05/22 [History Last Taken 12/26/21] ropinirole 1 mg tablet 1 mg PO QHS RLS 01/05/22 [History Last Taken 12/26/21] oxycodone 10 mg tablet 10 mg PO Q8H PRN pain 14 days #30 tabs 01/10/22 [Rx Last Taken 01/20/22] amoxicillin 875 mg-potassium clavulanate 125 mg tablet 1 tab PO BID infection 01/22/22 [History Last Taken 01/22/22] fluconazole 200 mg tablet 200 mg PO DAILY infection 01/22/22 [History Last Taken 01/22/22] pantoprazole 40 mg tablet,delayed release 40 mg PO DAILY stomach 01/22/22 [History Last Taken 01/22/22] sennosides 8.6 mg-docusate sodium 50 mg tablet (Senna Plus) 1 tab PO BID Check with primary doctor 01/22/22 [History Last Taken 01/22/22] sulfamethoxazole 800 mg-trimethoprim 160 mg tablet 1 tab PO Q12H Check with primary doctor 01/22/22 [History Last Taken 01/22/22] Allergy/AdvReac Type Severity Reaction Status Date / Time bupropion Allergy Other Verified 01/14/22 15:48 codeine Allergy Hives Verified 01/14/22 15:48 gabapentin Allergy Other Verified 01/14/22 15:48 oxaprozin [From Daypro] Allergy Hives Verified 01/14/22 15:48 oxybutynin Allergy Unknown Verified 01/14/22 15:48 pentazocine [From Talwin] Allergy Itching Verified 01/14/22 15:48 pentazocine lactate Allergy Itching Verified 01/14/22 15:48 [From Talwin] propoxyphene HCl Allergy Hives Verified 01/14/22 15:48 [From Darvon] propoxyphene napsylate Allergy Hives Verified 01/14/22 15:48 [From Darvocet-N 100] rofecoxib [From Vioxx] Allergy Rash Verified 01/14/22 15:48 tramadol HCl [From Ultram] Allergy Upset Verified 01/14/22 15:48 Stomach cyclobenzaprine HCl AdvReac Upset Verified 01/14/22 15:48 [From Flexeril] Stomach hydrocodone AdvReac Other Verified 01/14/22 15:48 venlafaxine HCl AdvReac Upset Verified 01/14/22 15:48 [From Effexor] Stomach PINE Allergy Hives Uncoded 01/14/22 15:48 Family History Mother CVA (cerebral vascular accident) Hypertension Father Cancer Diabetes Sister Thyroid disorder Surgical History H/O section History of back surgery History of bladder surgery History of cochlear implant History of colonoscopy History of ERCP History of kyphoplasty History of mandibular surgery History of nasal surgery History of repair of cleft lip History of rotator cuff surgery History of tracheostomy Hx of cholecystectomy Hx of LASIK Hx of neck surgery Hx of tubal ligation Social History Smoking Status: Former smoker quit date: 06/02/17 pack-years: 30 alcohol intake: never Physical Exam Const alert, oriented x3 and no apparent distress General Appearance: cooperative HEENT normocephalic and head/scalp atraumatic Eyes PERRL and EOMs intact bilaterally Neck supple and No nodes Resp normal air movement and clear to auscultation bilaterally Cardio regular rate and regular rhythm GI soft to palpation, non-tender and non-distended Extremity General Extremity: Negative for edema Skin no rashes or lesions noted Skin Narrative: abd drain in place Neuro CN's II-XII intact bilaterally Medical Records Data Medical Nutrition Assessment Dietitian: Malnutrition Criteria Met Start: 01/23/22 10:41 Freq: Status: Active Protocol: Document 01/23/22 10:41 AG (Rec: 01/23/22 10:42 [id number]) Nutrition Malnutrition Evidence of Malnutrition Exists Yes Malnutrition (moderate): Acute Illness/Injury Evidenced By Suboptimal Energy Intake ( Moderate),Weight Loss ( Moderate),Physical Changes ( Moderate) Clinical Problem Acute Disease or Injury Related Malnutrition Etiology moderate, acute malnutrition r /t inadequate energy intake d/ t GI dysfunction Signs/Symptoms as evidenced by estimated PO intake meeting <75% of estimated energy needs >1 week ; unintentional wt loss of 3. 1kg/5% <1 month; Moderate muscle wasting/fat loss evident per physical exam in orbital, temporal, clavicle, and acromion areas Status Active Problem Recommendation Dietitian Recommendations/Changes Recommend advance diet as tolerated to regular-fat restricted, fiber restricted. Continue to offer ensure plus high protein although anticipate pt will continue to refuse. Will offer ensure clear w/ meals. Will monitor daily wts, PO intake, and adjust recommendations as indicated- may be appropriate for TPN if PO intake declines or if pt does not tolerate diet and if pt is agreeable to TPN. Lab / Micro Data Attestation: I reviewed the patient's lab results. Result Diagrams: 01/26/22 05:50 01/26/22 05:50 Labs: Laboratory Results - last 24 hr 01/26/22 05:50: WBC 6.7, RBC 3.54 L, Hgb 11.3 L, Hct 35.3 L, MCV 99.7 H, MCH 31.9, MCHC 32.0, RDW Std Deviation 57.5 H, RDW Coeff of Fidelina 15.4 H, Plt Count 248, MPV 9.9, Immature Gran % (Auto) 0.400, Neut % (Auto) 51.8, Lymph % (Auto) 34.4, [place] % (Auto) 10.8 H, Eos % (Auto) 2.2, Baso % (Auto) 0.4, Absolute Neuts (auto) 3.5, Absolute Lymphs (auto) 2.30, Nucleated RBC % 0 01/26/22 05:50: Sodium 142, Potassium 3.5, Chloride 107, Carbon Dioxide 29.0, Anion Gap 6, BUN 14, Creatinine 0.71, Estim Creat Clear Calc 69.12, Est GFR (MDRD) Af Amer 107, Est GFR (MDRD) Non-Af 88, BUN/Creatinine Ratio 19.7, Glucose 101, Calcium 8.3 L, Total Bilirubin 0.20, AST 30, ALT 26, Alkaline Phosphatase 50, Total Protein 5.9 L, Albumin 2.3 L, Globulin 3.6, Albumin/Globulin Ratio 0.6 L
--- NOTE | 2022-01-26 14:53 | CASEMGMT ---
Discharge Data Governance Analyst Ashley from [place] requested updated patient information. DC Surg Physician Asst sent information. Clinical team is reviewing referral. CLEM Hastings notified. Kyra ELAM Surg Physician Asst
[2022-01-26] MEDS: Ondansetron 4 MG/2 ML Vial IV (15:17)
--- NOTE | 2022-01-26 15:17 | PCM.PN.HOSP ---
Subjective Subjective Patient was seen and examined today, gastroenterology did not recommend instituting TPN at this time, I went over this with the patient again and told her that I did not advise her going on TPN either. We are currently awaiting approval for the patient to go to an extended care facility for short-term rehab services. Infectious diseases saw the patient today and recommends continuing Unasyn and Diflucan for now and transitioning to oral antibiotics until her abscess clears. A repeat CT of the abdomen and pelvis was ordered today. Objective Data Objective Data Vital Signs: Vital Signs Temp Pulse Resp BP Pulse Ox O2 Del Method O2 Flow Rate 98.7 F 91 18 112/61 96 Room Air 2 01/26/22 12:29 01/26/22 12:29 01/26/22 12:29 01/26/22 12:29 01/26/22 12:29 01/26/22 12:29 01/25/22 20:10 Oxygen Flow Rate (L/min) 2 Oxygen Delivery Method Room Air Weight: 57.8 kg Body Mass Index (BMI) 21.5 Intake & Output: Intake and Output for Last 24 Hours 01/24/22 01/25/22 01/26/22 23:59 23:59 23:59 Intake Total 1208 / 1208 436 / 436 906 / 906 Output Total 1680 / 1680 1140 / 1165 662 / 662 Balance -472 / -472 -704 / -729 244 / 244 Medical Nutrition Assessment Dietitian: Malnutrition Criteria Met Start: 01/23/22 10:41 Freq: Status: Active Protocol: Document 01/23/22 10:41 AG (Rec: 01/23/22 10:42 [id number]) Nutrition Malnutrition Evidence of Malnutrition Exists Yes Malnutrition (moderate): Acute Illness/Injury Evidenced By Suboptimal Energy Intake ( Moderate),Weight Loss ( Moderate),Physical Changes ( Moderate) Clinical Problem Acute Disease or Injury Related Malnutrition Etiology moderate, acute malnutrition r /t inadequate energy intake d/ t GI dysfunction Signs/Symptoms as evidenced by estimated PO intake meeting <75% of estimated energy needs >1 week ; unintentional wt loss of 3. 1kg/5% <1 month; Moderate muscle wasting/fat loss evident per physical exam in orbital, temporal, clavicle, and acromion areas Status Active Problem Recommendation Dietitian Recommendations/Changes Recommend advance diet as tolerated to regular-fat restricted, fiber restricted. Continue to offer ensure plus high protein although anticipate pt will continue to refuse. Will offer ensure clear w/ meals. Will monitor daily wts, PO intake, and adjust recommendations as indicated- may be appropriate for TPN if PO intake declines or if pt does not tolerate diet and if pt is agreeable to TPN. Lab / Micro Data Result Diagrams: 01/26/22 05:50 01/26/22 05:50 Labs: Laboratory Results - last 24 hr 01/26/22 05:50: WBC 6.7, RBC 3.54 L, Hgb 11.3 L, Hct 35.3 L, MCV 99.7 H, MCH 31.9, MCHC 32.0, RDW Std Deviation 57.5 H, RDW Coeff of Fidelina 15.4 H, Plt Count 248, MPV 9.9, Immature Gran % (Auto) 0.400, Neut % (Auto) 51.8, Lymph % (Auto) 34.4, [place] % (Auto) 10.8 H, Eos % (Auto) 2.2, Baso % (Auto) 0.4, Absolute Neuts (auto) 3.5, Absolute Lymphs (auto) 2.30, Nucleated RBC % 0 01/26/22 05:50: Sodium 142, Potassium 3.5, Chloride 107, Carbon Dioxide 29.0, Anion Gap 6, BUN 14, Creatinine 0.71, Estim Creat Clear Calc 69.12, Est GFR (MDRD) Af Amer 107, Est GFR (MDRD) Non-Af 88, BUN/Creatinine Ratio 19.7, Glucose 101, Calcium 8.3 L, Total Bilirubin 0.20, AST 30, ALT 26, Alkaline Phosphatase 50, Total Protein 5.9 L, Albumin 2.3 L, Globulin 3.6, Albumin/Globulin Ratio 0.6 L Physical Exam Narrative alert, oriented x3, no apparent distress and healthy appearing General Appearance: cooperative, well kempt and well developed Orientation / Consciousness: awake, oriented to person, oriented to place and oriented to time HEENT normocephalic and moist oral mucous membranes Eyes PERRL, EOMs intact bilaterally and conjunctivae normal Neck supple, no JVD, thyroid normal and no carotid bruits General: trachea midline Resp normal respiratory effort and clear to auscultation bilaterally Auscultation: Negative for rales, rhonchi or wheezes Cardio regular rate, regular rhythm, no murmurs, no rub and no gallops GI GI Narrative: There are noted to be 2 drains present in the abdominal wall with suction bulbs attached, abdomen is soft and nontender at this time, bowel sounds are present in all 4 quadrant Extremity no clubbing, cyanosis or edema Skin no rashes or lesions noted General Skin Exam: no breakdown Neuro oriented x3, CN's II-XII intact bilaterally, no focal motor deficits and no sensory deficits noted Sensorium / Orientation: awake and alert Speech: speech normal Psych affect normal Assessment & Plan Assessment/Plan (1) Abdominal abscess: PLAN: Plan 1. Acute debility-PT and OT will continue to see the patient, she will need placement in a senior care facility at least short-term rehab services. #2 toxic encephalopathy-resolved at this time, suspected to be secondary to narcotics usage #3 moderate acute protein caloric malnutrition-diet is a regular diet as recommended, Ensure clear with meals is being given to the patient, daily weights will be monitored, p.o. intake will be monitored, again I do not feel the patient needs TPN at this time unless her p.o. intake declines dramatically. #4 chronic pancreatitis-complicates care, management, recovery, and prognosis #5 abdominal abscess-patient has [address] at this time, she will need to follow-up with her [facility] physician regarding removing these drains. Patient is currently on Unasyn and Diflucan. Infectious diseases saw the patient today and reordered a CT scan. Charges/Coding Visit Charges Inpatient E&M: 63714 Subs Hosp L2
--- NOTE | 2022-01-26 15:46 | CASEMGMT ---
Discharge Ship Design Teacher Patient accepted at [facility]. Pre-cert is being started. CLEM Hastings notified. Kyra ELAM Excellence Coach
--- NOTE | 2022-01-26 16:38 | CASEMGMT ---
Social Work Pt has been accepted at [facility] and precert has been started. SW met with pt and informed that [facility] has accepted but pt cannot discharge until precert is obtained. SNF notified to call the unit directly if precert is obtained over the weekend. With pt permission, phone call to pt dgdiogo Cee and updated on above. Physician updated. Plan: [facility], pending precert LUZMA Hsieh
[2022-01-26] MEDS: Ensure Plus High Protein 120 ML LIQUID PO (18:35)
--- NOTE | 2022-01-26 19:25 | PN_ITS ---
Subjective Subjective Patient says that she has abdominal pain on and off. She rates it anywhere from a 5 out of 10 to 8 out of 10. She is not receiving a lot of narcotics at this time. She is tolerating a diet. When she eats too much she does get bloated and distended. She had 1 bowel movement yesterday and small bowel movement to day. She has been afebrile. Objective Data Objective Data Vital Signs: Vital Signs Temp Pulse Resp BP Pulse Ox O2 Del Method O2 Flow Rate 98.2 F 91 18 128/64 H 93 Room Air 2 01/26/22 17:51 01/26/22 17:51 01/26/22 17:51 01/26/22 17:51 01/26/22 17:51 01/26/22 17:51 01/25/22 20:10 Oxygen Flow Rate (L/min) 2 Oxygen Delivery Method Room Air Weight: 127 lb 6.835 oz Body Mass Index (BMI) 21.5 Intake & Output: Intake and Output for Last 24 Hours 01/24/22 01/25/22 01/26/22 23:59 23:59 23:59 Intake Total 1208 / 1208 436 / 436 1776 / 1776 Output Total 1680 / 1680 1140 / 1165 673 / 673 Balance -472 / -472 -704 / -729 1103 / 1103 Medical Nutrition Assessment Dietitian: Malnutrition Criteria Met Start: 01/23/22 10:41 Freq: Status: Active Protocol: Document 01/23/22 10:41 (Rec: 01/23/22 10:42 [id number]) Nutrition Malnutrition Evidence of Malnutrition Exists Yes Malnutrition (moderate): Acute Illness/Injury Evidenced By Suboptimal Energy Intake ( Moderate),Weight Loss ( Moderate),Physical Changes ( Moderate) Clinical Problem Acute Disease or Injury Related Malnutrition Etiology moderate, acute malnutrition r /t inadequate energy intake d/ t GI dysfunction Signs/Symptoms as evidenced by estimated PO intake meeting <75% of estimated energy needs >1 week ; unintentional wt loss of 3. 1kg/5% <1 month; Moderate muscle wasting/fat loss evident per physical exam in orbital, temporal, clavicle, and acromion areas Status Active Problem Recommendation Dietitian Recommendations/Changes Recommend advance diet as tolerated to regular-fat restricted, fiber restricted. Continue to offer ensure plus high protein although anticipate pt will continue to refuse. Will offer ensure clear w/ meals. Will monitor daily wts, PO intake, and adjust recommendations as indicated- may be appropriate for TPN if PO intake declines or if pt does not tolerate diet and if pt is agreeable to TPN. Lab / Micro Data Result Diagrams: 01/26/22 05:50 01/26/22 05:50 Labs: Laboratory Results - last 24 hr 01/26/22 05:50: WBC 6.7, RBC 3.54 L, Hgb 11.3 L, Hct 35.3 L, MCV 99.7 H, MCH 31.9, MCHC 32.0, RDW Std Deviation 57.5 H, RDW Coeff of Fidelina 15.4 H, Plt Count 248, MPV 9.9, Immature Gran % (Auto) 0.400, Neut % (Auto) 51.8, Lymph % (Auto) 34.4, [place] % (Auto) 10.8 H, Eos % (Auto) 2.2, Baso % (Auto) 0.4, Absolute Neuts (auto) 3.5, Absolute Lymphs (auto) 2.30, Nucleated RBC % 0 01/26/22 05:50: Sodium 142, Potassium 3.5, Chloride 107, Carbon Dioxide 29.0, Anion Gap 6, BUN 14, Creatinine 0.71, Estim Creat Clear Calc 69.12, Est GFR (MDRD) Af Amer 107, Est GFR (MDRD) Non-Af 88, BUN/Creatinine Ratio 19.7, Glucose 101, Calcium 8.3 L, Total Bilirubin 0.20, AST 30, ALT 26, Alkaline Phosphatase 50, Total Protein 5.9 L, Albumin 2.3 L, Globulin 3.6, Albumin/Globulin Ratio 0.6 L Radiography Diagnostic Testing: Radiology Impression Abdomen/Pelvis CT 01/26/22 13:25 IMPRESSION: Interval drainage of abscess within the gallbladder fossa. Small residual phlegmon is seen between the 2 drainage catheters which project in the right upper quadrant. Status post cholecystectomy. Electronically Signed: Richard Sharma MD, BRENDA at 17:15 EDT Reading Location ID and State: [facility] / [place] Tel , Service support , Physical Exam Narrative alert, oriented x3, no apparent distress and healthy appearing General Appearance: cooperative, well kempt and well developed Orientation / Consciousness: awake, oriented to person, oriented to place and oriented to time HEENT normocephalic and moist oral mucous membranes Eyes PERRL, EOMs intact bilaterally and conjunctivae normal Neck supple, no JVD, thyroid normal and no carotid bruits General: trachea midline Resp normal respiratory effort and clear to auscultation bilaterally Auscultation: Negative for rales, rhonchi or wheezes Cardio regular rate, regular rhythm, no murmurs, no rub and no gallops GI GI Narrative: There are noted to be 2 drains present in the abdominal wall with suction bulbs attached, abdomen is soft and nontender at this time, bowel sounds are present in all 4 quadrant Extremity no clubbing, cyanosis or edema Skin no rashes or lesions noted General Skin Exam: no breakdown Neuro oriented x3, CN's II-XII intact bilaterally, no focal motor deficits and no sens ory deficits noted Sensorium / Orientation: awake and alert Speech: speech normal Psych affect normal Assessment & Plan Assessment/Plan (1) Abdominal abscess: PLAN: Intra-abdominal abscess status post percutaneous drainage. She seen by infectious disease and he recommended antibiotic therapy. Appreciate infectious disease input. (2) Chronic pancreatitis: QUALIFIERS: Pancreatitis type: alcohol induced Qualified Code(s): K86.0 - Alcohol-induced chronic pancreatitis PLAN: Chronic recurrent alcoholic pancreatitis with stricturing disease. Recommend to increase pancreatic enzymes up to 5 pills with each meal and snacks. (3) Severe protein-calorie malnutrition: PLAN: Continue 2000 kcal diet. Supplement with protein supplements. No need for TPN at this time. Charges/Coding Visit Charges Inpatient E&M: 60333 Subs Hosp L2
[2022-01-26] MEDS: Pramipexole Di-HCl 0.5 MG Tablet PO (23:12)
[2022-01-26] MEDS: Amox/Clavulanate 875 MG Tablet PO (23:14)
[2022-01-26] MEDS: Smz/Tmp Ds Tablet 1 TABLET PO (23:15)
[2022-01-27] VITALS (7 sets, daily range): BP systolic 118–124; BP diastolic 55–69; PULSE 81–95; RESP 15–20; TEMP 36.7–37; O2SAT 84–95
[2022-01-27] MEDS: 0.9% Saline Lock 10 ML Syringe IV ×3 (00:03→07:10)
[2022-01-27] MEDS: Metoclopramide 10 MG/2 ML Vial IV ×3 (06:59→17:31)
[2022-01-27] MEDS: Fluconazole 100 MG Tablet 200 MG PO (09:39)
[2022-01-27] MEDS: Enoxaparin 40 MG/0.4 ML Syringe SC (09:39)
[2022-01-27] MEDS: Amox/Clavulanate 875 MG Tablet PO ×2 (09:39→22:26)
[2022-01-27] MEDS: Docusate Sodium 100 MG Capsule PO (09:39)
[2022-01-27] MEDS: Senna/Docusate Sodium 1 Tablet PO (09:41)
[2022-01-27] MEDS: Smz/Tmp Ds Tablet 1 TABLET PO ×2 (09:42→22:23)
[2022-01-27] MEDS: Pantoprazole Sodium 40 MG Tablet PO (09:46)
[2022-01-27] MEDS: ALPRAZolam 0.5 MG Tablet 1 MG PO (10:03)
[2022-01-27] MEDS: oxyCODONE 5 MG Tablet 10 MG PO ×2 (10:08→17:30)
--- NOTE | 2022-01-27 10:57 | PCM.PN.HOSP ---
Subjective Subjective Patient was seen and examined today, she does not complain of any abdominal pain. CT scan yesterday showed resolution of her previously noted abdominal abscess, I changed her over to oral antibiotics yesterday after talking with infectious diseases. Patient question today whether she needed to go to a fdc for rehab services, I told her I felt that she would benefit from short-term inpatient rehab services and I thought her family would want her to do this also. Objective Data Objective Data Vital Signs: Vital Signs Temp Pulse Resp BP Pulse Ox O2 Del Method O2 Flow Rate 98.0 F 93 16 121/58 H 93 Nasal Cannula 2 01/27/22 09:30 01/27/22 09:30 01/27/22 09:30 01/27/22 09:30 01/27/22 09:30 01/27/22 10:18 01/27/22 10:18 Oxygen Flow Rate (L/min) 2 Oxygen Delivery Method Nasal Cannula Weight: 57.8 kg Body Mass Index (BMI) 21.5 Intake & Output: Intake and Output for Last 24 Hours 01/25/22 01/26/22 01/27/22 23:59 23:59 23:59 Intake Total 436 / 436 1776 / 2376 620 / 620 Output Total 1140 / 1165 673 / 673 200 / 200 Balance -704 / -729 1103 / 1703 420 / 420 Medical Nutrition Assessment Dietitian: Malnutrition Criteria Met Start: 01/23/22 10:41 Freq: Status: Active Protocol: Document 01/23/22 10:41 AG (Rec: 01/23/22 10:42 AG [id number]) Nutrition Malnutrition Evidence of Malnutrition Exists Yes Malnutrition (moderate): Acute Illness/Injury Evidenced By Suboptimal Energy Intake ( Moderate),Weight Loss ( Moderate),Physical Changes ( Moderate) Clinical Problem Acute Disease or Injury Related Malnutrition Etiology moderate, acute malnutrition r /t inadequate energy intake d/ t GI dysfunction Signs/Symptoms as evidenced by estimated PO intake meeting <75% of estimated energy needs >1 week ; unintentional wt loss of 3. 1kg/5% <1 month; Moderate muscle wasting/fat loss evident per physical exam in orbital, temporal, clavicle, and acromion areas Status Active Problem Recommendation Dietitian Recommendations/Changes Recommend advance diet as tolerated to regular-fat restricted, fiber restricted. Continue to offer ensure plus high protein although anticipate pt will continue to refuse. Will offer ensure clear w/ meals. Will monitor daily wts, PO intake, and adjust recommendations as indicated- may be appropriate for TPN if PO intake declines or if pt does not tolerate diet and if pt is agreeable to TPN. Lab / Micro Data Result Diagrams: 01/26/22 05:50 01/26/22 05:50 Radiography Diagnostic Testing: Radiology Impression Abdomen/Pelvis CT 01/26/22 13:25 IMPRESSION: Interval drainage of abscess within the gallbladder fossa. Small residual phlegmon is seen between the 2 drainage catheters which project in the right upper quadrant. Status post cholecystectomy. Electronically Signed: Richard Sharma MD, BRENDA at 17:15 EDT , Physical Exam Narrative alert, oriented x3, no apparent distress and healthy appearing General Appearance: cooperative, well kempt and well developed Orientation / Consciousness: awake, oriented to person, oriented to place and oriented to time HEENT normocephalic and moist oral mucous membranes Eyes PERRL, EOMs intact bilaterally and conjunctivae normal Neck supple, no JVD, thyroid normal and no carotid bruits General: trachea midline Resp normal respiratory effort and clear to auscultation bilaterally Auscultation: Negative for rales, rhonchi or wheezes Cardio regular rate, regular rhythm, no murmurs, no rub and no gallops GI GI Narrative: There are noted to be 2 drains present in the abdominal wall with suction bulbs attached, abdomen is soft and nontender at this time, bowel sounds are present in all 4 quadrant Extremity no clubbing, cyanosis or edema Skin no rashes or lesions noted General Skin Exam: no breakdown Neuro oriented x3, CN's II-XII intact bilaterally, no focal motor deficits and no sensory deficits noted Sensorium / Orientation: awake and alert Speech: speech normal Psych affect normal Assessment & Plan Assessment/Plan (1) Chronic pancreatitis: QUALIFIERS: Pancreatitis type: alcohol induced Qualified Code(s): K86.0 - Alcohol-induced chronic pancreatitis (2) Abdominal abscess: PLAN: Plan 1. Acute debility-PT and OT will continue to see the patient, she will need placement in a senior living facility at least short-term rehab services. #2 toxic encephalopathy-resolved at this time, suspected to be secondary to narcotics usage #3 moderate acute protein caloric malnutrition-diet is a regular diet as recommended, Ensure clear with meals is being given to the patient, daily weights will be monitored, p.o. intake will be monitored, again I do not feel the patient needs TPN at this time unless her p.o. intake declines dramatically. #4 chronic pancreatitis-complicates care, management, recovery, and prognosis #5 abdominal abscess-patient has [address] at this time, again patient's CAT scan yesterday showed resolution of the patient's previously noted abscesses, patient remains on oral antibiotics-Bactrim DS, Augmentin, and Diflucan-she will need 14 more days of treatment per infectious diseases. Charges/Coding Visit Charges Inpatient E&M: 02735 Subs Hosp L2
[2022-01-27] MEDS: Ensure Plus High Protein 120 ML LIQUID PO (13:38)
[2022-01-27] MEDS: Acetaminophen 325 MG Tablet 650 MG PO (22:23)
[2022-01-27] MEDS: Pramipexole Di-HCl 0.5 MG Tablet PO (22:23)
[2022-01-28] VITALS (8 sets, daily range): BP systolic 102–133; BP diastolic 48–72; PULSE 72–86; RESP 14–18; TEMP 36.4–36.8; O2SAT 92–96
[2022-01-28] MEDS: Metoclopramide 10 MG/2 ML Vial IV ×5 (00:13→23:30)
[2022-01-28] MEDS: 0.9% Saline Lock 10 ML Syringe IV ×3 (00:13→23:29)
[2022-01-28] MEDS: oxyCODONE 5 MG Tablet PO ×4 (00:18→17:08)
[2022-01-28] MEDS: Docusate Sodium 100 MG Capsule PO ×2 (08:16→21:38)
[2022-01-28] MEDS: Fluconazole 100 MG Tablet 200 MG PO (08:17)
[2022-01-28] MEDS: Enoxaparin 40 MG/0.4 ML Syringe SC (08:18)
[2022-01-28] MEDS: Smz/Tmp Ds Tablet 1 TABLET PO ×2 (08:19→21:38)
[2022-01-28] MEDS: Pantoprazole Sodium 40 MG Tablet PO (08:19)
[2022-01-28] MEDS: Senna/Docusate Sodium 1 Tablet PO ×2 (08:21→21:38)
[2022-01-28] MEDS: Amox/Clavulanate 875 MG Tablet PO ×2 (08:22→21:38)
--- NOTE | 2022-01-28 12:10 | PN.HOSP_ITS ---
Subjective Subjective Patient was seen and examined today, she has no complaints of any abdominal pain, she is able to take oral nourishment. At this time, we are awaiting approval for the patient to go to a chcf facility, she states that she does not want to go back to [facility] to have her drains removed when they need to be removed-according to the medical record here, the drains were put in by Dr. Esparza at [facility]. Objective Data Objective Data Vital Signs: Vital Signs Temp Pulse Resp BP Pulse Ox O2 Del Method O2 Flow Rate 98.0 F 75 16 103/72 96 Room Air 2 01/28/22 10:30 01/28/22 10:30 01/28/22 10:30 01/28/22 10:30 01/28/22 10:30 01/28/22 10:30 01/28/22 08:10 Oxygen Flow Rate (L/min) 2 Oxygen Delivery Method Room Air Weight: 59 kg Body Mass Index (BMI) 21.5 Intake & Output: Intake and Output for Last 24 Hours 01/26/22 01/27/22 01/28/22 23:59 23:59 23:59 Intake Total 1776 / 2376 700 / 700 Output Total 673 / 673 560 / 760 710 / 710 Balance 1103 / 1703 140 / -60 -710 / -710 Medical Nutrition Assessment Dietitian: Malnutrition Criteria Met Start: 01/23/22 10:41 Freq: Status: Active Protocol: Document 01/23/22 10:41 AG (Rec: 01/23/22 10:42 AG [id number]) Nutrition Malnutrition Evidence of Malnutrition Exists Yes Malnutrition (moderate): Acute Illness/Injury Evidenced By Suboptimal Energy Intake ( Moderate),Weight Loss ( Moderate),Physical Changes ( Moderate) Clinical Problem Acute Disease or Injury Related Malnutrition Etiology moderate, acute malnutrition r /t inadequate energy intake d/ t GI dysfunction Signs/Symptoms as evidenced by estimated PO intake meeting <75% of estimated energy needs >1 week ; unintentional wt loss of 3. 1kg/5% <1 month; Moderate muscle wasting/fat loss evident per physical exam in orbital, temporal, clavicle, and acromion areas Status Active Problem Recommendation Dietitian Recommendations/Changes Recommend advance diet as tolerated to regular-fat restricted, fiber restricted. Continue to offer ensure plus high protein although anticipate pt will continue to refuse. Will offer ensure clear w/ meals. Will monitor daily wts, PO intake, and adjust recommendations as indicated- may be appropriate for TPN if PO intake declines or if pt does not tolerate diet and if pt is agreeable to TPN. Lab / Micro Data Result Diagrams: 01/26/22 05:50 01/26/22 05:50 Physical Exam Narrative alert, oriented x3, no apparent distress and healthy appearing General Appearance: cooperative, well kempt and well developed Orientation / Consciousness: awake, oriented to person, oriented to place and oriented to time HEENT normocephalic and moist oral mucous membranes Eyes PERRL, EOMs intact bilaterally and conjunctivae normal Neck supple, no JVD, thyroid normal and no carotid bruits General: trachea midline Resp normal respiratory effort and clear to auscultation bilaterally Auscultation: Negative for rales, rhonchi or wheezes Cardio regular rate, regular rhythm, no murmurs, no rub and no gallops GI GI Narrative: There are noted to be 2 drains present in the abdominal wall with suction bulbs attached, abdomen is soft and nontender at this time, bowel sounds are present i n all 4 quadrant Extremity no clubbing, cyanosis or edema Skin no rashes or lesions noted General Skin Exam: no breakdown Neuro oriented x3, CN's II-XII intact bilaterally, no focal motor deficits and no sensory deficits noted Sensorium / Orientation: awake and alert Speech: speech normal Psych affect normal Assessment & Plan Assessment/Plan (1) Chronic pancreatitis: QUALIFIERS: Pancreatitis type: alcohol induced Qualified Code(s): K86.0 - Alcohol-induced chronic pancreatitis (2) Abdominal abscess: PLAN: Plan 1. Acute debility-PT and OT will continue to see the patient, she will need placement in a ch[facility] facility at least short-term rehab services. #2 toxic encephalopathy-resolved at this time, suspected to be secondary to narcotics usage #3 moderate acute protein caloric malnutrition-diet is a regular diet as recommended, Ensure clear with meals is being given to the patient, daily weights will be monitored, p.o. intake will be monitored, again I do not feel the patient needs TPN at this time unless her p.o. intake declines dramatically. #4 chronic pancreatitis-complicates care, management, recovery, and prognosis #5 abdominal abscess-patient has [address] at this time, again patient's CAT scan showed resolution of the patient's previously noted abscesses, patient remains on oral antibiotics-Bactrim DS, Augmentin, and Diflucan-she will need 13 more days of treatment per infectious diseases. Patient does not want to go back to [facility] regarding removal of her abdominal drains, I talked with Dr. Fu regarding her care, he will see the patient in follow-up in his office and refer her to Dr. Hanson for removal of the drains when he feels it is appropriate. I talked with Dr. Fu about this by phone and he was okay with the plan. I also talked with Dr. Hanson and he prefers that he had the direction of gastroenterology before he removes the tubes. Again, if the patient agrees, the other option would be for the patient to follow-up with Dr. Esparza at [facility]-again she does not want to go back up there at this time. Charges/Coding Visit Charges Inpatient E&M: 02282 Subs Hosp L2
[2022-01-28] MEDS: Ensure Plus High Protein 120 ML LIQUID PO ×3 (13:11→21:38)
[2022-01-28] MEDS: oxyCODONE 5 MG Tablet 10 MG PO (21:38)
[2022-01-28] MEDS: Pramipexole Di-HCl 0.5 MG Tablet PO (21:38)
[2022-01-28] MEDS: QUEtiapine 100 MG Tablet PO (21:38)
[2022-01-29] VITALS (8 sets, daily range): BP systolic 118–133; BP diastolic 59–74; PULSE 77–87; RESP 14–18; TEMP 36.4–37.2; O2SAT 92–95
[2022-01-29] MEDS: 0.9% Saline Lock 10 ML Syringe IV ×7 (05:44→23:55)
[2022-01-29] MEDS: Metoclopramide 10 MG/2 ML Vial IV ×4 (05:44→23:55)
[2022-01-29] MEDS: Amox/Clavulanate 875 MG Tablet PO ×2 (10:06→20:53)
[2022-01-29] MEDS: Pantoprazole Sodium 40 MG Tablet PO (10:06)
[2022-01-29] MEDS: Docusate Sodium 100 MG Capsule PO ×2 (10:06→20:52)
[2022-01-29] MEDS: Enoxaparin 40 MG/0.4 ML Syringe SC (10:06)
[2022-01-29] MEDS: Fluconazole 100 MG Tablet 200 MG PO (10:06)
[2022-01-29] MEDS: Smz/Tmp Ds Tablet 1 TABLET PO ×2 (10:09→20:53)
[2022-01-29] MEDS: Senna/Docusate Sodium 1 Tablet PO ×2 (10:10→20:52)
[2022-01-29] MEDS: Ensure Plus High Protein 120 ML LIQUID PO ×3 (10:10→16:03)
[2022-01-29] MEDS: oxyCODONE 5 MG Tablet 10 MG PO (10:18)
--- NOTE | 2022-01-29 10:40 | CASEMGMT ---
Discharge Dairy Feed Sales Consultant Ashley messaged in [facility] asking for additional information and said pre-cert has never been started. This tag writer called and spoke to Ashley asking why pre-cert was never started when we were told it was started. Ashley stated that clinical team at [facility] decided they need more information about the drains that patient has. This tag writer sent progress notes and asked for pre-cert to be started as soon as possible. CLEM bangura. Kyra ELAM Hvac Installer
--- NOTE | 2022-01-29 11:21 | CASEMGMT ---
Social Work SW updated Dr. Edgar about precert confusion with SNF and that it had not been started so pt will likely not be able to discharge today. LUZMA Hidalgo
--- NOTE | 2022-01-29 13:16 | CM.UR ---
Discharge Germination Worker This commercial insurance underwriter called Shannon. Pre-cert still has not been started. Kyra ELAM Photolithographer
--- NOTE | 2022-01-29 14:03 | CASEMGMT ---
Discharge Food Services Coordinator Shannon reached out. Pre-cert has just now been submitted. Kyra ELAM English Adjunct Faculty
--- NOTE | 2022-01-29 15:31 | PCM.PN.HOSP ---
Subjective Subjective DS 01/29/22 CC: Abdominal Pain Ms. Gonzalez reports overall she is feeling better than she was but continues to have abdominal pain. Drains in place. Eating better, no significant nausea. No chest pain, no changes in breathing. No bowel or bladder changes. Does feel generally weak, however. Objective Data Objective Data Vital Signs: Vital Signs Temp Pulse Resp BP Pulse Ox O2 Del Method O2 Flow Rate 97.5 F L 79 18 126/61 H 94 Nasal Cannula 2 01/29/22 14:46 01/29/22 14:46 01/29/22 14:46 01/29/22 14:46 01/29/22 14:46 01/29/22 14:46 01/29/22 14:46 Oxygen Flow Rate (L/min) 2 Oxygen Delivery Method Nasal Cannula Weight: 61 kg Body Mass Index (BMI) 21.5 Intake & Output: Intake and Output for Last 24 Hours 01/27/22 01/28/22 01/29/22 23:59 23:59 23:59 Intake Total 700 / 700 240 / 240 Output Total 560 / 760 1090 / 1095 760 / 760 Balance 140 / -60 -1070 / -1075 -520 / -520 Medical Nutrition Assessment Dietitian: Malnutrition Criteria Met Start: 01/23/22 10:41 Freq: Status: Active Protocol: Document 01/23/22 10:41 AG (Rec: 01/23/22 10:42 AG [id number]) Nutrition Malnutrition Evidence of Malnutrition Exists Yes Malnutrition (moderate): Acute Illness/Injury Evidenced By Suboptimal Energy Intake ( Moderate),Weight Loss ( Moderate),Physical Changes ( Moderate) Clinical Problem Acute Disease or Injury Related Malnutrition Etiology moderate, acute malnutrition r /t inadequate energy intake d/ t GI dysfunction Signs/Symptoms as evidenced by estimated PO intake meeting <75% of estimated energy needs >1 week ; unintentional wt loss of 3. 1kg/5% <1 month; Moderate muscle wasting/fat loss evident per physical exam in orbital, temporal, clavicle, and acromion areas Status Active Problem Recommendation Dietitian Recommendations/Changes Recommend advance diet as tolerated to regular-fat restricted, fiber restricted. Continue to offer ensure plus high protein although anticipate pt will continue to refuse. Will offer ensure clear w/ meals. Will monitor daily wts, PO intake, and adjust recommendations as indicated- may be appropriate for TPN if PO intake declines or if pt does not tolerate diet and if pt is agreeable to TPN. Lab / Micro Data Result Diagrams: 01/26/22 05:50 01/26/22 05:50 Micro: Microbiology 01/28/22 05:15 Sputum, Expectorated/Coughed Gram Stain - Final 01/28/22 05:15 Sputum, Expectorated/Coughed Respiratory Culture - Preliminary Coag Negative Staph Physical Exam Const alert and no apparent distress HEENT normocephalic Eyes Eyes Narrative: EOM grossly intact, anicteric Neck supple Resp normal respiratory effort Resp Narrative: Somewhat diminished at the bases Cardio regular rate and regular rhythm GI GI Narrative: Pt unhappy with abdominal exam, did not seem exquisitely tender when palpating, particularly outside of the left upper quadrant. No rebound/guarding/rigidity Extremity Extremity Narrative: No significant edema noted Neuro moves all extremities Neuro Narrative: No overt focal deficits appreciated Psych Psych Narrative: Cooperative Assessment & Plan Assessment/Plan (1) Chronic pancreatitis: QUALIFIERS: Pancreatitis type: alcohol induced Qualified Code(s): K86.0 - Alcohol-induced chronic pancreatitis (2) Abdominal abscess: PLAN: Plan 1. Acute debility PT and OT will continue to see the patient, she will need placement in a alf facility at least short-term rehab services. 2. toxic encephalopathy resolved at this time, suspected to be secondary to narcotics usage 3. moderate acute protein caloric malnutrition diet is a regular diet as recommended, Ensure clear with meals is being given to the patient, daily weights will be monitored, p.o. intake will be monitored, Do not feel pt needs TPN at this time. If continued good PO intake will d/c PICC 4. chronic pancreatitis complicates care, management, recovery, and prognosis Supporitve care Continue pancrelipase 5. abdominal abscess [address] Most recent CT showed resolution of previously noted abscesses Will need 14 days total of abx per ID She is presently on Bactrim DS, augmentin, and diflucan She has refused going back to [facility]- she will f/u outpatient with Dr. Fu in 10-14 days for further management and referrals Previous provider spoke with surgery who preferred GI f/u with further referral if/when needed Jazmin Edgar MD Charges/Coding Visit Charges Inpatient E&M: 20636 Subs Hosp L2
--- NOTE | 2022-01-29 17:50 | PN_ITS ---
Subjective Subjective Patient states that she feels about the same. She rates her pain at a 3 or 5 out of 10. She is tolerating a diet. Objective Data Objective Data Vital Signs: Vital Signs Temp Pulse Resp BP Pulse Ox O2 Del Method O2 Flow Rate 97.5 F L 79 18 126/61 H 94 Room Air 2 01/29/22 16:14 01/29/22 16:14 01/29/22 16:14 01/29/22 16:14 01/29/22 16:14 01/29/22 16:14 01/29/22 16:14 Oxygen Flow Rate (L/min) 2 Oxygen Delivery Method Room Air Weight: 134 lb 7.712 oz Body Mass Index (BMI) 21.5 Intake & Output: Intake and Output for Last 24 Hours 01/27/22 01/28/22 01/29/22 23:59 23:59 23:59 Intake Total 700 / 700 240 / 240 Output Total 560 / 760 1090 / 1095 776 / 776 Balance 140 / -60 -1070 / -1075 -536 / -536 Medical Nutrition Assessment Dietitian: Malnutrition Criteria Met Start: 01/23/22 10:4 1 Freq: Status: Active Protocol: Document 01/23/22 10:41 AG (Rec: 01/23/22 10:42 AG [id number]) Nutrition Malnutrition Evidence of Malnutrition Exists Yes Malnutrition (moderate): Acute Illness/Injury Evidenced By Suboptimal Energy Intake ( Moderate),Weight Loss ( Moderate),Physical Changes ( Moderate) Clinical Problem Acute Disease or Injury Related Malnutrition Etiology moderate, acute malnutrition r /t inadequate energy intake d/ t GI dysfunction Signs/Symptoms as evidenced by estimated PO intake meeting <75% of estimated energy needs >1 week ; unintentional wt loss of 3. 1kg/5% <1 month; Moderate muscle wasting/fat loss evident per physical exam in orbital, temporal, clavicle, and acromion areas Status Active Problem Recommendation Dietitian Recommendations/Changes Recommend advance diet as tolerated to regular-fat restricted, fiber restricted. Continue to offer ensure plus high protein although anticipate pt will continue to refuse. Will offer ensure clear w/ meals. Will monitor daily wts, PO intake, and adjust recommendations as indicated- may be appropriate for TPN if PO intake declines or if pt does not tolerate diet and if pt is agreeable to TPN. Lab / Micro Data Result Diagrams: 01/26/22 05:50 01/26/22 05:50 Micro: Microbiology 01/28/22 05:15 Sputum, Expectorated/Coughed Gram Stain - Final 01/28/22 05:15 Sputum, Expectorated/Coughed Respiratory Culture - Preliminary Coag Negative Staph Physical Exam Const alert and no apparent distress HEENT normocephalic Eyes Eyes Narrative: EOM grossly intact, anicteric Neck supple Resp normal respiratory effort Resp Narrative: Somewhat diminished at the bases Cardio regular rate and regular rhythm GI GI Narrative: Abdominal exam unchanged. No signs of acute abdomen. No fluid wave, discoloration or excoriation. Extremity Extremity Narrative: No significant edema noted Neuro moves all extremities Neuro Narrative: No overt focal deficits appreciated Psych Psych Narrative: Cooperative Assessment & Plan Assessment/Plan (1) Abdominal abscess: PLAN: PLAN: Intra-abdominal abscess status post percutaneous drainage.? She seen by infectious disease and he recommended antibiotic therapy.? Appreciate infectious disease input. She will be on 2 weeks of oral antibiotics and that intra- abdominal drain will be removed as an outpatient. (2) Chronic pancreatitis: QUALIFIERS: Pancreatitis type: alcohol induced Qualified Code(s): K86.0 - Alcohol-induced chronic pancreatitis PLAN: Alcohol-induced chronic pancreatitis Chronic recurrent alcoholic pancreatitis with stricturing disease.? Recommend to increase pancreatic enzymes up to 5 pills with each meal and snacks. (3) Severe protein-calorie malnutrition: PLAN: Continue 2000 kcal diet.? Supplement with protein supplements.? No need for TPN at this time. Charges/Coding Visit Charges Inpatient E&M: 81371 Subs Hosp L2
[2022-01-29] MEDS: oxyCODONE 5 MG Tablet PO (20:51)
[2022-01-29] MEDS: Pramipexole Di-HCl 0.5 MG Tablet PO (20:53)
[2022-01-30 02:14] VITALS: BP 131/70; PULSE 72; RESP 16; TEMP 36.5; O2SAT 94
[2022-01-30] MEDS: 0.9% Saline Lock 10 ML Syringe IV ×5 (06:13→23:58)
[2022-01-30] MEDS: Metoclopramide 10 MG/2 ML Vial IV ×4 (06:13→23:58)
[2022-01-30 07:01] LABS: Absolute Lymphocyte Count 2.16 X10^3/uL (0.83-4.51); Absolute Neutrophil Count 3.2 X10^3/uL (2.0-7.7); Basophil# 0.04 X10^3/uL; Basophil% 0.7 % (0-1); Eosinophil# 0.15 X10^3/uL; Eosinophils% 2.4 % (0-5); Hematocrit 36.6 % (37-47); Hemoglobin 11.9 g/dL (12.0-15.0); Lymphocyte # 2.16 X10^3/ul (0.83-4.51); Lymphocyte % 35.1 % (19-41); Mean Corp Hgb Conc 32.5 g/dL (32-36); Mean Corpuscular Hgb 31.8 pg (27.0-32.0); Mean Corpuscular Volume 97.9 fL (81-99); Mean Platelet Vol. 10.5 fl (6.2-12.0); Monocyte# 0.56 X10^3/uL; Monocyte% 9.1 % (0-10); NRBC Flagged by Analyzer 0 % (0-5); Neutrophil # 3.22 X10^3/uL (2.7-7.7); Neutrophil % 52.4 % (47-70); Platelet Count 256 K/mm3 (150-450); RBC Distribution Width CV 15.6 % (11.6-14.6); Red Blood Count 3.74 M/mm3 (4.2-5.4); White Blood Count 6.2 K/mm3 (4.4-11.0)
[2022-01-30 07:38] LABS: ALB/GLOB Ratio 0.7 RATIO (0.9-2.4); AST(SGOT) 51 U/L (15-37); Alanine Aminotransfer ALT/SGPT 39 U/L (13-56); Albumin, Serum 2.5 g/dL (3.2-5.0); Alkaline Phosphatase 56 U/L (45-117); Anion Gap 7 (5-15); BUN 12 mg/dL (7-18); Calcium,Total 8.9 mg/dL (8.5-10.1); Chloride 107 mmol/L (98-107); Creatinine, Serum 0.66 mg/dL (0.55-1.02); EST Glomerular Filtration Rate 95 mL/min (>60); Est Glom Filt Rate - Afr Amer 115 mL/min (>60); Estimated Creatinine Clearance 74.36 ml/min; Globulin 3.7 g/dL (2.2-4.2); Glucose 96 mg/dL (74-106); Potassium 3.8 mmol/L (3.5-5.1); Protein, Total 6.2 g/dL (6.4-8.2); Sodium Level 140 mmol/L (136-145)
[2022-01-30] MEDS: Fluconazole 100 MG Tablet 200 MG PO (08:36)
[2022-01-30] MEDS: Amox/Clavulanate 875 MG Tablet PO ×2 (08:36→21:04)
[2022-01-30] MEDS: Smz/Tmp Ds Tablet 1 TABLET PO ×2 (08:36→21:04)
[2022-01-30] MEDS: Pantoprazole Sodium 40 MG Tablet PO (08:37)
[2022-01-30] MEDS: Enoxaparin 40 MG/0.4 ML Syringe SC (08:37)
[2022-01-30] MEDS: Senna/Docusate Sodium 1 Tablet PO (08:37)
[2022-01-30] MEDS: Ensure Plus High Protein 120 ML LIQUID PO ×3 (08:38→16:40)
[2022-01-30] MEDS: Docusate Sodium 100 MG Capsule PO (08:38)
[2022-01-30 10:00] VITALS: BP 153/55; PULSE 81; RESP 16; TEMP 37.1; O2SAT 97
[2022-01-30 11:47] VITALS: O2SAT 94
[2022-01-30 12:16] VITALS: O2SAT 93
--- NOTE | 2022-01-30 13:13 | CASEMGMT ---
Social Work SW in to provide update to pt. SW explained there was confusion with [facility] and insurance authorization had not been started until yesterday afternoon. Pt voiced understanding. Pt asked about [facility] vs. [facility] now that PICC will be removed. SW explained that if pt would like [facility] a new referral would have to be sent and pt would likely be waiting longer. Pt voiced understanding, stated would like to continue with [facility]. PLAN: BLAISE, pending precert LUZMA Hidalgo
--- NOTE | 2022-01-30 13:47 | CASEMGMT ---
Social Work SW reached out to Shannon via [facility] to inquire on precert updates. SW to await response. LUZMA Hidalgo
--- NOTE | 2022-01-30 16:31 | PN.HOSP_ITS ---
Subjective Subjective DOS 01/30/2022 CC: Abdominal pain Patient continues to report some generalized abdominal pain but is better than admission and has been fairly stable over the past several days. Denies changes in bowel or bladder, reports still eating well and denies nausea. No chest pain or shortness of breath. No further complaints today Objective Data Objective Data Vital Signs: Vital Signs Temp Pulse Resp BP Pulse Ox O2 Del Method O2 Flow Rate 98.7 F 81 16 153/55 H 93 Room Air 2 01/30/22 10:01/30/22 10:00 01/30/22 10:00 01/30/22 10:00 01/30/22 12:16 01/30/22 14:10 01/30/22 02:14 Oxygen Flow Rate (L/min) 2 Oxygen Delivery Method Room Air Weight: 59 kg Body Mass Index (BMI) 21.5 Intake & Output: Intake and Output for Last 24 Hours 01/28/22 01/29/22 01/30/22 23:59 23:59 23:59 Intake Total 240 / 240 400 / 400 Output Total 1090 / 1095 776 / 1086 325 / 325 Balance -1070 / -1075 -536 / -846 75 / 75 Medical Nutrition Assessment Dietitian: Malnutrition Criteria Met Start: 01/23/22 10:41 Freq: Status: Active Protocol: Document 01/23/22 10:41 AG (Rec: 01/23/22 10:42 [id number]) Nutrition Malnutrition Evidence of Malnutrition Exists Yes Malnutrition (moderate): Acute Illness/Injury Evidenced By Suboptimal Energy Intake ( Moderate),Weight Loss ( Moderate),Physical Changes ( Moderate) Clinical Problem Acute Disease or Injury Related Malnutrition Etiology moderate, acute malnutrition r /t inadequate energy intake d/ t GI dysfunction Signs/Symptoms as evidenced by estimated PO intake meeting <75% of estimated energy needs >1 week ; unintentional wt loss of 3. 1kg/5% <1 month; Moderate muscle wasting/fat loss evident per physical exam in orbital, temporal, clavicle, and acromion areas Status Active Problem Recommendation Dietitian Recommendations/Changes Recommend advance diet as tolerated to regular-fat restricted, fiber restricted. Continue to offer ensure plus high protein although anticipate pt will continue to refuse. Will offer ensure clear w/ meals. Will monitor daily wts, PO intake, and adjust recommendations as indicated- may be appropriate for TPN if PO intake declines or if pt does not tolerate diet and if pt is agreeable to TPN. Lab / Micro Data Result Diagrams: 01/30/22 06:06 01/30/22 06:06 Labs: Laboratory Results - last 24 hr 01/30/22 06:06: WBC 6.2, RBC 3.74 L, Hgb 11.9 L, Hct 36.6 L, MCV 97.9, MCH 31.8, MCHC 32.5, RDW Std Deviation 56.0 H, RDW Coeff of Fidelina 15.6 H, Plt Count 256, MPV 10.5, Immature Gran % (Auto) 0.300, Neut % (Auto) 52.4, Lymph % (Auto) 35.1, [place]ady % (Auto) 9.1, Eos % (Auto) 2.4, Baso % (Auto) 0.7, Absolute Neuts (auto) 3.2, Absolute Lymphs (auto) 2.16, Nucleated RBC % 0 01/30/22 06:06: Sodium 140, Potassium 3.8, Chloride 107, Carbon Dioxide 26.0, Anion Gap 7, BUN 12, Creatinine 0.66, Estim Creat Clear Calc 74.36, Est GFR (MDRD) Af Amer 115, Est GFR (MDRD) Non-Af 95, BUN/Creatinine Ratio 18.0, Glucose 96, Calcium 8.9, Total Bilirubin 0.20, AST 51 H, ALT 39, Alkaline Phosphatase 56, Total Protein 6.2 L, Albumin 2.5 L, Globulin 3.7, Albumin/Globulin Ratio 0.7 L Micro: Microbiology 01/28/22 05:15 Sputum, Expectorated/Coughed Gram Stain - Final 01/28/22 05:15 Sputum, Expectorated/Coughed Respiratory Culture - Final Physical Exam Const alert and no apparent distress HEENT normocephalic Eyes Eyes Narrative: EOM grossly intact, anicteric Neck supple Resp normal respiratory effort Resp Narrative: Somewhat diminished at the bases Cardio regular rate and regular rhythm GI GI Narrative: Abdominal exam unchanged. No signs of acute abdomen. Extremity Extremity Narrative: No significant edema noted Neuro moves all extremities Neuro Narrative: No overt focal deficits appreciated Psych Psych Narrative: Cooperative Assessment & Plan Assessment/Plan (1) Chronic pancreatitis: QUALIFIERS: Pancreatitis type: alcohol induced Qualified Code(s): K86.0 - Alcohol-induced chronic pancreatitis (2) Abdominal abscess: PLAN: Plan 1. Acute debility Continues to be generally weak Awaiting SNF placement 2. toxic encephalopathy resolved at this time, suspected to be secondary to narcotics usage 3. moderate acute protein caloric malnutrition diet is a regular diet as recommended, Ensure clear with meals is being given to the patient, daily weights will be monitored, p.o. intake will be monitored, Do not feel pt needs TPN at this time. If continued good PO intake will d/c PICC upon discharge 4. chronic pancreatitis complicates care, management, recovery, and prognosis Supportive care Continue pancrelipase 5. abdominal abscess [address] Most recent CT showed resolution of previously noted abscesses Will need 14 days total of abx per ID She is presently on Bactrim DS, augmentin, and diflucan She has refused going back to [facility]- Friend with GI discussed with her previous physician Dr. Esparza at [facility] regarding drains Recommended to consult interventional radiology to verify no leaks and drains, and if no leaks observed they can be removed Jazmin Edgar MD Charges/Coding Visit Charges Inpatient E&M: 62065 Subs Hosp L2
--- NOTE | 2022-01-30 17:21 | PCM.PROGNOTE ---
Subjective Subjective She says she is about the same as yesterday and regarding her pain. She is tolerating a diet. She states that she wants the tube out of her abdomen and she does not want to go back to [place] to have it removed. Objective Data Objective Data Vital Signs: Vital Signs Temp Pulse Resp BP Pulse Ox O2 Del Method O2 Flow Rate 98.7 F 81 16 153/55 H 93 Room Air 2 01/30/22 10:00 01/30/22 10:00 01/30/22 10:00 01/30/22 10:00 01/30/22 12:16 01/30/22 14:10 01/30/22 02:14 Oxygen Flow Rate (L/min) 2 Oxygen Delivery Method Room Air Weight: 130 lb 1.164 oz Body Mass Index (BMI) 21.5 Intake & Output: Intake and Output for Last 24 Hours 01/28/22 01/29/22 01/30/22 23:59 23:59 23:59 Intake Total 240 / 240 400 / 400 Output Total 1090 / 1095 776 / 1086 325 / 325 Balance -1070 / -1075 -536 / -846 75 / 75 Medical Nutrition Assessment Dietitian: Malnutrition Criteria Met Start: 01/23/22 10:41 Freq: Status: Active Protocol: Document 01/23/22 10:41 AG (Rec: 01/23/22 10:42 AG [id number]) Nutrition Malnutrition Evidence of Malnutrition Exists Yes Malnutrition (moderate): Acute Illness/Injury Evidenced By Suboptimal Energy Intake ( Moderate),Weight Loss ( Moderate),Physical Changes ( Moderate) Clinical Problem Acute Disease or Injury Related Malnutrition Etiology moderate, acute malnutrition r /t inadequate energy intake d/ t GI dysfunction Signs/Symptoms as evidenced by estimated PO intake meeting <75% of estimated energy needs >1 week ; unintentional wt loss of 3. 1kg/5% <1 month; Moderate muscle wasting/fat loss evident per physical exam in orbital, temporal, clavicle, and acromion areas Status Active Problem Recommendation Dietitian Recommendations/Changes Recommend advance diet as tolerated to regular-fat restricted, fiber restricted. Continue to offer ensure plus high protein although anticipate pt will continue to refuse. Will offer ensure clear w/ meals. Will monitor daily wts, PO intake, and adjust recommendations as indicated- may be appropriate for TPN if PO intake declines or if pt does not tolerate diet and if pt is agreeable to TPN. Lab / Micro Data Result Diagrams: 01/30/22 06:06 01/30/22 06:06 Labs: Laboratory Results - last 24 hr 01/30/22 06:06: WBC 6.2, RBC 3.74 L, Hgb 11.9 L, Hct 36.6 L, MCV 97.9, MCH 31.8, MCHC 32.5, RDW Std Deviation 56.0 H, RDW Coeff of Fidelina 15.6 H, Plt Count 256, MPV 10.5, Immature Gran % (Auto) 0.300, Neut % (Auto) 52.4, Lymph % (Auto) 35.1, [place] % (Auto) 9.1, Eos % (Auto) 2.4, Baso % (Auto) 0.7, Absolute Neuts (auto) 3.2, Absolute Lymphs (auto) 2.16, Nucleated RBC % 0 01/30/22 06:06: Sodium 140, Potassium 3.8, Chloride 107, Carbon Dioxide 26.0, Anion Gap 7, BUN 12, Creatinine 0.66, Estim Creat Clear Calc 74.36, Est GFR (MDRD) Af Amer 115, Est GFR (MDRD) Non-Af 95, BUN/Creatinine Ratio 18.0, Glucose 96, Calcium 8.9, Total Bilirubin 0.20, AST 51 H, ALT 39, Alkaline Phosphatase 56, Total Protein 6.2 L, Albumin 2.5 L, Globulin 3.7, Albumin/Globulin Ratio 0.7 L Micro: Microbiology 01/28/22 05:15 Sputum, Expectorated/Coughed Gram Stain - Final 01/28/22 05:15 Sputum, Expectorated/Coughed Respiratory Culture - Final Physical Exam Const alert and no apparent distress HEENT normocephalic Eyes Eyes Narrative: EOM grossly intact, anicteric Neck supple Resp normal respiratory effort Resp Narrative: Somewhat diminished at the bases Cardio regular rate and regular rhythm GI GI Narrative: Abdominal exam unchanged. No signs of acute abdomen. Extremity Extremity Narrative: No significant edema noted Neuro moves all extremities Neuro Narrative: No overt focal deficits appreciated Psych Psych Narrative: Cooperative Assessment & Plan Assessment/Plan (1) Abdominal abscess: PLAN: I talk with Dr. Srinivas Esparza from [facility] who was involved in her care at [facility]. 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 At this time does not seem to be any signs of abscess formation and she remains on antibiotics. He said that if interventional radiology can inject some dye into the drain and make sure that there is no communication with the duodenum ensuring that perforation is totally sealed that is okay to take the drain out. (2) Chronic pancreatitis: QUALIFIERS: Pancreatitis type: alcohol induced Qualified Code(s): K86.0 - Alcohol-induced chronic pancreatitis PLAN: Continue pancreatic enzyme replacement as previously ordered. (3) Severe protein-calorie malnutrition: PLAN: Patient is eating well and she continues to gain weight. She is up to 130 pounds. That is up 4 pounds from admission. She is tolerating a diet with pancreatic enzyme replacement. (4) Encephalopathy: PLAN: She has a baseline slurred speech secondary to chronic alcoholism in the past. I am not sure she has a history of Warnicke encephalopathy. I would recommend B12 and folate replacement on a daily basis. Charges/Coding Visit Charges Inpatient E&M: 83039 [facility] Hosp L3
[2022-01-30] MEDS: oxyCODONE 5 MG Tablet 10 MG PO (19:45)
[2022-01-30 20:00] VITALS: BP 135/69; PULSE 84; RESP 16; TEMP 36.8; O2SAT 94
[2022-01-30 20:33] VITALS: BP 135/69; PULSE 84; RESP 16; TEMP 36.8; O2SAT 94
[2022-01-30] MEDS: QUEtiapine 100 MG Tablet PO (21:04)
[2022-01-30] MEDS: Pramipexole Di-HCl 0.5 MG Tablet PO (21:04)
[2022-01-31 02:33] VITALS: BP 119/59; PULSE 70; RESP 16; TEMP 36.6; O2SAT 93
[2022-01-31] MEDS: 0.9% Saline Lock 10 ML Syringe IV (05:19)
[2022-01-31] MEDS: Metoclopramide 10 MG/2 ML Vial IV (05:19)
[2022-01-31 05:54] LABS: Absolute Lymphocyte Count 3.08 X10^3/uL (0.83-4.51); Basophil# 0.03 X10^3/uL; Basophil% 0.4 % (0-1); Eosinophil# 0.14 X10^3/uL; Hematocrit 37.7 % (37-47); Lymphocyte # 3.08 X10^3/ul (0.83-4.51); Lymphocyte % 44.9 % (19-41); Mean Corp Hgb Conc 31.8 g/dL (32-36); Mean Corpuscular Hgb 30.8 pg (27.0-32.0); Mean Corpuscular Volume 96.9 fL (81-99); Mean Platelet Vol. 10.9 fl (6.2-12.0); Monocyte# 0.63 X10^3/uL; Monocyte% 9.2 % (0-10); NRBC Flagged by Analyzer 0 % (0-5); Neutrophil # 2.95 X10^3/uL (2.7-7.7); Neutrophil % 43.1 % (47-70); Platelet Count 273 K/mm3 (150-450); RBC Distribution Width CV 15.7 % (11.6-14.6); RBC Distribution Width SD 56.2 fl (35.1-43.9); Red Blood Count 3.89 M/mm3 (4.2-5.4); White Blood Count 6.9 K/mm3 (4.4-11.0)
[2022-01-31 06:41] LABS: ALB/GLOB Ratio 0.6 RATIO (0.9-2.4); AST(SGOT) 52 U/L (15-37); Alanine Aminotransfer ALT/SGPT 46 U/L (13-56); Albumin, Serum 2.6 g/dL (3.2-5.0); Alkaline Phosphatase 61 U/L (45-117); Anion Gap 8 (5-15); BUN 17 mg/dL (7-18); BUN/Creat Ratio 22.5 RATIO (10-20); Calcium,Total 9.3 mg/dL (8.5-10.1); Chloride 108 mmol/L (98-107); Creatinine, Serum 0.76 mg/dL (0.55-1.02); EST Glomerular Filtration Rate 82 mL/min (>60); Est Glom Filt Rate - Afr Amer 99 mL/min (>60); Estimated Creatinine Clearance 64.58 ml/min; Glucose 91 mg/dL (74-106); Potassium 3.7 mmol/L (3.5-5.1); Protein, Total 6.6 g/dL (6.4-8.2); Sodium Level 141 mmol/L (136-145)
[2022-01-31 08:00] VITALS: BP 128/65; PULSE 78; RESP 16; TEMP 36.8; O2SAT 93
--- NOTE | 2022-01-31 08:01 | RAD_ITS ---
PROCEDURE: GASTROGRAFIN injection of drainage tubes DATE OF EXAMINATION: 01/31/2022 INDICATION: Female, 66 years old. Checking for possible fistulous connection to bowel PHYSICIAN: Ivon FLUOROSCOPY TIME (if supplied): (1:10) minutes/seconds RADIATION DOSAGE (If Supplied By Facility): CTDIvol = ( ) mGy, DLP = ( ) mGycm CONSENT: The risks, benefits and alternatives to the procedure were explained to the patient, and the patient agreed to the procedure and signed the consent. SEDATION: None STERILE BARRIER TECHNIQUE: The following sterile barrier precautions were used during the procedure: hand hygiene; use of 2% chlorhexidine aseptic; use of a cap, mask, sterile gown, sterile gloves, sterile full body drape, and a large sterile sheet. PROCEDURE/TECHNIQUE: (All elements of maximal sterile barrier technique followed, including US elements as applicable) The risks, benefits, and alternatives to the procedure were explained to patient, and the patient agreed to the procedure and signed a consent form for the procedure. A timeout was performed to confirm the patient''s identity, the type of procedure, to be performed and the site of entry. Patient was placed in the supine position on the fluoroscopic table. Under fluoroscopic guidance, GASTROGRAFIN was injected into each of the 2 drainage tubes. Drain #1 showed free flow of contrast material into the peritoneal cavity with no evidence to suspect there is a communication with bowel. Drain 2. Showed localized spillage of contrast onto the skin and down the patient''s flank also on the skin outside the body. This suggests that there is either a fibrin sheath within the 2. Drainage tubes so that there is no contrast entering the peritoneal cavity or the there is another type of obstruction. The oblique films clearly show leakage from drain 2. On to the patient''s flank. RAD/Fluoroscopy 1 Hr or Less IMPRESSION: No evidence of a fistulous connection to bowel with either of the drainage tubes. Drain #1 shows free flow of contrast within the peritoneal cavity, no bowel is noted. Drain 2. Only demonstrated GASTROGRAFIN contrast on the patient''s skin and down the right flank also on the patient''s skin. This suggests the drain is occluded perhaps due to a fibrin sheath. Electronically Signed: Jose Del Valle MD at 10:30 EDT ,
--- NOTE | 2022-01-31 08:27 | PCM.PN.HOSP ---
Subjective Subjective DOS: 01/31/2022 CC: Terminal pain She reports having continued abdominal pain though significantly improved. She is to have IR study to see if drains can be pulled this morning and she is very happy about that. Feels much better than when she presented. Has been trying to get up and walk around, still some generalized weakness but would ideally like to go home and started to SNF upon discharge. Appetite improving, no significant nausea, no chest pain or changes in her breathing. No changes in bowel or bladder. Objective Data Objective Data Vital Signs: Vital Signs Temp Pulse Resp BP Pulse Ox O2 Del Method O2 Flow Rate 97.8 F 70 16 119/59 L 93 Room Air 2 01/31/22 02:33 01/31/22 02:33 01/31/22 02:33 01/31/22 02:33 01/31/22 02:33 01/31/22 02:33 01/31/22 02:33 Oxygen Flow Rate (L/min) 2 Oxygen Delivery Method Room Air Weight: 58.2 kg Body Mass Index (BMI) 21.5 Intake & Output: Intake and Output for Last 24 Hours 01/29/22 01/30/22 01/31/22 23:59 23:59 23:59 Intake Total 240 / 240 400 / 400 Output Total 776 / 1086 325 / 342 428 / 428 Balance -536 / -846 75 / 58 -428 / -428 Medical Nutrition Assessment Dietitian: Malnutrition Criteria Met Start: 01/23/22 10:41 Freq: Status: Active Protocol: Document 01/23/22 10:41 (Rec: 01/23/22 10:42 [id number]) Nutrition Malnutrition Evidence of Malnutrition Exists Yes Malnutrition (moderate): Acute Illness/Injury Evidenced By Suboptimal Energy Intake ( Moderate),Weight Loss ( Moderate),Physical Changes ( Moderate) Clinical Problem Acute Disease or Injury Related Malnutrition Etiology moderate, acute malnutrition r /t inadequate energy intake d/ t GI dysfunction Signs/Symptoms as evidenced by estimated PO intake meeting <75% of estimated energy needs >1 week ; unintentional wt loss of 3. 1kg/5% <1 month; Moderate muscle wasting/fat loss evident per physical exam in orbital, temporal, clavicle, and acromion areas Status Active Problem Recommendation Dietitian Recommendations/Changes Recommend advance diet as tolerated to regular-fat restricted, fiber restricted. Continue to offer ensure plus high protein although anticipate pt will continue to refuse. Will offer ensure clear w/ meals. Will monitor daily wts, PO intake, and adjust recommendations as indicated- may be appropriate for TPN if PO intake declines or if pt does not tolerate diet and if pt is agreeable to TPN. Lab / Micro Data Result Diagrams: 01/31/22 04:30 01/31/22 04:30 Labs: Laboratory Results - last 24 hr 01/31/22 04:30: WBC 6.9, RBC 3.89 L, Hgb 12.0, Hct 37.7, MCV 96.9, MCH 30.8, MCHC 31.8 L, RDW Std Deviation 56.2 H, RDW Coeff of Fidelina 15.7 H, Plt Count 273, MPV 10.9, Immature Gran % (Auto) 0.400, Neut % (Auto) 43.1 L, Lymph % (Auto) 44.9 H, [place] % (Auto) 9.2, Eos % (Auto) 2.0, Baso % (Auto) 0.4, Absolute Neuts (auto) 3.0, Absolute Lymphs (auto) 3.08, Nucleated RBC % 0 01/31/22 04:30: Sodium 141, Potassium 3.7, Chloride 108 H, Carbon Dioxide 25.0, Anion Gap 8, BUN 17, Creatinine 0.76, Estim Creat Clear Calc 64.58, Est GFR (MDRD) Af Amer 99, Est GFR (MDRD) Non-Af 82, BUN/Creatinine Ratio 22.5 H, Glucose 91, Calcium 9.3, Total Bilirubin 0.30, AST 52 H, ALT 46, Alkaline Phosphatase 61, Total Protein 6.6, Albumin 2.6 L, Globulin 4.0, Albumin/Globulin Ratio 0.6 L Micro: Microbiology 01/28/22 05:15 Sputum, Expectorated/Coughed Gram Stain - Final 01/28/22 05:15 Sputum, Expectorated/Coughed Respiratory Culture - Final Physical Exam Const alert and no apparent distress HEENT normocephalic Eyes Eyes Narrative: EOM grossly intact, anicteric Neck supple Resp normal respiratory effort Resp Narrative: Somewhat diminished at the bases Cardio regular rate and regular rhythm GI GI Narrative: Abdominal exam unchanged. No signs of acute abdomen. Extremity Extremity Narrative: No significant edema noted Neuro moves all extremities Neuro Narrative: No overt focal deficits appreciated Psych Psych Narrative: Cooperative Assessment & Plan Assessment/Plan (1) Chronic pancreatitis: QUALIFIERS: Pancreatitis type: alcohol induced Qualified Code(s): K86.0 - Alcohol-induced chronic pancreatitis (2) Abdominal abscess: PLAN: Plan #abdominal abscess-most recent CT demonstrated resolution [address] Most recent CT showed resolution of previously noted abscesses Will need 14 days total of abx per ID She is presently on Bactrim DS, augmentin, and diflucan She has refused going back to [facility]-Dr. Fu with GI discussed with her previous physician Dr. Esparza at [facility] regarding drains Will have study with interventional radiology today to see if there are any leaks, if not drains will be able to be pulled #Acute debility Continues to be generally weak feels she is improving SNF versus home with resources on discharge #Toxic encephalopathy resolved at this time, suspected to be secondary to narcotics usage #Moderate acute protein caloric malnutrition diet is a regular diet as recommended, Ensure clear with meals is being given to the patient, daily weights will be monitored, p.o. intake will be monitored, Do not feel pt needs TPN at this time. If continued good PO intake will d/c PICC upon discharge #Chronic pancreatitis complicates care, management, recovery, and prognosis Supportive care Continue pancrelipase Jazmin Edgar MD Charges/Coding Visit Charges Inpatient E&M: 63574 Subs Hosp L2
[2022-01-31 10:00] VITALS: BP 128/65; PULSE 78; RESP 16; TEMP 36.8; O2SAT 93
[2022-01-31] MEDS: Smz/Tmp Ds Tablet 1 TABLET PO ×2 (10:11→19:52)
[2022-01-31] MEDS: Cyanocobalamin 500 MCG Tablet 1000 MCG PO (10:11)
[2022-01-31] MEDS: Folic Acid 1 MG Tablet PO (10:11)
[2022-01-31] MEDS: Pantoprazole Sodium 40 MG Tablet PO (10:11)
[2022-01-31] MEDS: Docusate Sodium 100 MG Capsule PO ×2 (10:12→19:52)
[2022-01-31] MEDS: Enoxaparin 40 MG/0.4 ML Syringe SC (10:12)
[2022-01-31] MEDS: Senna/Docusate Sodium 1 Tablet PO (10:12)
[2022-01-31] MEDS: Amox/Clavulanate 875 MG Tablet PO ×2 (10:13→19:51)
[2022-01-31] MEDS: Fluconazole 100 MG Tablet 200 MG PO (10:13)
[2022-01-31] MEDS: Ensure Plus High Protein 120 ML LIQUID PO (10:14)
[2022-01-31] MEDS: Metoclopramide 10 MG Tablet PO ×3 (12:05→19:54)
--- NOTE | 2022-01-31 12:20 | CASEMGMT ---
Social Work SW called [facility] to follow up on precert as SNf not responding in [facility]. Road Gang Supervisor at [facility] informed that admission coordinator, Lynn, not at work today and Ashley was supposed to be covering for Lynn but had car troubles. [facility] unsure if anyone from admissions will be in today. SW requested secretary specialist have DON or someone else at [facility] who is charge to call back to discuss pt case. [facility] took contact number and stated would give information to someone who can help. PLAN: Await call back from [facility] regarding precert LUZMA Hidalgo
--- NOTE | 2022-01-31 13:22 | CASEMGMT ---
JONATHAN MOORE to pt's room. Pt was sitting on the side of the bed. Pt reports feeling she can DC home without any services if drains get pulled. Pt denied needing HH or therapy. Pt is ambulating I and reports eating well. JONATHAN MOORE will continue to follow. Update SW.
[2022-01-31 14:00] VITALS: BP 127/70; PULSE 81; RESP 18; TEMP 36.6; O2SAT 94
--- NOTE | 2022-01-31 17:09 | PCM.PROGNOTE ---
Subjective Subjective Patient does not have any abdominal pain. She is eating very well. She is stooling. She denies any fevers. She denies any abdominal distention, nausea. She is taking her pancreatic enzymes with each meal. We increase it to 5 pills per meal. Objective Data Objective Data Vital Signs: Vital Signs Temp Pulse Resp BP Pulse Ox O2 Del Method O2 Flow Rate 97.8 F 81 18 127/70 H 94 Room Air 2 01/31/22 14:00 01/31/22 14:00 01/31/22 14:00 01/31/22 14:00 01/31/22 14:00 01/31/22 14:00 01/31/22 02:33 Oxygen Flow Rate (L/min) 2 Oxygen Delivery Method Room Air Weight: 128 lb 4.944 oz Body Mass Index (BMI) 21.5 Intake & Output: Intake and Output for Last 24 Hours 01/29/22 01/30/22 01/31/22 23:59 23:59 23:59 Intake Total 240 / 240 400 / 400 Output Total 776 / 1086 325 / 342 433 / 433 Balance -536 / -846 75 / 58 -433 / -433 Medical Nutrition Assessment Dietitian: Malnutrition Criteria Met Start: 01/23/22 10:41 Freq: Status: Active Protocol: Document 01/23/22 10:41 AG (Rec: 01/23/22 10:42 AG [id number]) Nutrition Malnutrition Evidence of Malnutrition Exists Yes Malnutrition (moderate): Acute Illness/Injury Evidenced By Suboptimal Energy Intake ( Moderate),Weight Loss ( Moderate),Physical Changes ( Moderate) Clinical Problem Acute Disease or Injury Related Malnutrition Etiology moderate, acute malnutrition r /t inadequate energy intake d/ t GI dysfunction Signs/Symptoms as evidenced by estimated PO intake meeting <75% of estimated energy needs >1 week ; unintentional wt loss of 3. 1kg/5% <1 month; Moderate muscle wasting/fat loss evident per physical exam in orbital, temporal, clavicle, and acromion areas Status Active Problem Recommendation Dietitian Recommendations/Changes Recommend advance diet as tolerated to regular-fat restricted, fiber restricted. Continue to offer ensure plus high protein although anticipate pt will continue to refuse. Will offer ensure clear w/ meals. Will monitor daily wts, PO intake, and adjust recommendations as indicated- may be appropriate for TPN if PO intake declines or if pt does not tolerate diet and if pt is agreeable to TPN. Lab / Micro Data Result Diagrams: 01/31/22 04:30 01/31/22 04:30 Labs: Laboratory Results - last 24 hr 01/31/22 04:30: WBC 6.9, RBC 3.89 L, Hgb 12.0, Hct 37.7, MCV 96.9, MCH 30.8, MCHC 31.8 L, RDW Std Deviation 56.2 H, RDW Coeff of Fidelina 15.7 H, Plt Count 273, MPV 10.9, Immature Gran % (Auto) 0.400, Neut % (Auto) 43.1 L, Lymph % (Auto) 44.9 H, Childress % (Auto) 9.2, Eos % (Auto) 2.0, Baso % (Auto) 0.4, Absolute Neuts (auto) 3.0, Absolute Lymphs (auto) 3.08, Nucleated RBC % 0 01/31/22 04:30: Sodium 141, Potassium 3.7, Chloride 108 H, Carbon Dioxide 25.0, Anion Gap 8, BUN 17, Creatinine 0.76, Estim Creat Clear Calc 64.58, Est GFR (MDRD) Af Amer 99, Est GFR (MDRD) Non-Af 82, BUN/Creatinine Ratio 22.5 H, Glucose 91, Calcium 9.3, Total Bilirubin 0.30, AST 52 H, ALT 46, Alkaline Phosphatase 61, Total Protein 6.6, Albumin 2.6 L, Globulin 4.0, Albumin/Globulin Ratio 0.6 L Micro: Microbiology 01/28/22 05:15 Sputum, Expectorated/Coughed Gram Stain - Final 01/28/22 05:15 Sputum, Expectorated/Coughed Respiratory Culture - Final Radiography Diagnostic Testing: Radiology Impression Fluoroscopy 01/31/22 08:01 IMPRESSION: No evidence of a fistulous connection to bowel with either of the drainage tubes. Drain #1 shows free flow of contrast within the peritoneal cavity, no bowel is noted. Drain 2. Only demonstrated GASTROGRAFIN contrast on the patient''s skin and down the right flank also on the patient''s skin. This suggests the drain is occluded perhaps due to a fibrin sheath. Electronically Signed: Jose Del Valle MD at 10:30 EDT , Physical Exam Const alert and no apparent distress HEENT normocephalic Eyes Eyes Narrative: EOM grossly intact, anicteric Neck supple Resp normal respiratory effort Resp Narrative: Somewhat diminished at the bases Cardio regular rate and regular rhythm GI normal to inspection, nondistended, normoactive bowel sounds, soft to palpation, non-tender and non-distended GI Narrative: Abdominal exam unchanged. No signs of acute abdomen. [address] 1 drain which is the first drain has some serosanguineous and bilious fluid. The second drain has clear Gastrografin and. Extremity Extremity Narrative: No significant edema noted Neuro moves all extremities Neuro Narrative: No overt focal deficits appreciated Psych Psych Narrative: Cooperative Assessment & Plan Assessment/Plan (1) Abdominal abscess: PLAN: Appreciate interventional radiology for evaluating the patient. The drain #1 is draining clear fluid and there is Gastrografin angiogram #2. The plan is for her to get discharged home and follow-up as an outpatient for reassessment of the percutaneous drains and hopefully if they are remaining the same day can be pulled by interventional radiology. (2) Chronic pancreatitis: QUALIFIERS: Pancreatitis type: alcohol induced Qualified Code(s): K86.0 - Alcohol-induced chronic pancreatitis PLAN: Continue pancreatic enzymes 5 pills per meal and Reglan 3 times a day. (3) Severe protein-calorie malnutrition: PLAN: Patient is eating 1500 kcal a day. That is enough to maintain her current weight. (4) Encephalopathy: PLAN: She is not showing any signs of encephalopathy at this time. (5) Adult failure to thrive: Charges/Coding Visit Charges Inpatient E&M: 09837 Subs Hosp L3
[2022-01-31] MEDS: ALPRAZolam 0.5 MG Tablet 1 MG PO (17:12)
[2022-01-31 19:33] VITALS: BP 127/67; PULSE 90; RESP 18; TEMP 36.7; O2SAT 95
[2022-01-31] MEDS: oxyCODONE 5 MG Tablet 10 MG PO (19:45)
[2022-01-31] MEDS: Pramipexole Di-HCl 0.5 MG Tablet PO (19:53)
[2022-01-31] MEDS: QUEtiapine 100 MG Tablet PO (19:54)
[2022-02-01] VITALS (8 sets, daily range): BP systolic 107–130; BP diastolic 63–66; PULSE 73–100; RESP 14–16; TEMP 36.4–36.9; O2SAT 92–96
[2022-02-01] MEDS: Metoclopramide 10 MG Tablet PO ×2 (05:39→10:28)
[2022-02-01] MEDS: ALPRAZolam 0.5 MG Tablet 1 MG PO (05:43)
[2022-02-01] MEDS: Cyanocobalamin 500 MCG Tablet 1000 MCG PO (08:38)
[2022-02-01] MEDS: Folic Acid 1 MG Tablet PO (08:38)
[2022-02-01] MEDS: oxyCODONE 5 MG Tablet 10 MG PO (08:48)
--- NOTE | 2022-02-01 09:06 | PCM.PN.HOSP ---
Subjective Subjective DOS: 02/01/2022 CC: Abdominal soreness Did have drains evaluated yesterday, but given study results drains were not pulled, discussed with GI and she would benefit from follow-up in 1 week with repeat study and plan to pull drains at that time. She reports her abdomen is still somewhat sore, but overall much better than when she came in. No chest pain or shortness of breath. Eating much better, no further complaints today Objective Data Objective Data Vital Signs: Vital Signs Temp Pulse Resp BP Pulse Ox O2 Del Method O2 Flow Rate 98.5 F 92 16 121/64 H 92 Room Air 2 02/01/22 09:02 02/01/22 09:02 02/01/22 09:02 02/01/22 09:02 02/01/22 09:02 02/01/22 09:02 02/01/22 09:02 Oxygen Flow Rate (L/min) 2 Oxygen Delivery Method Room Air Weight: 57.1 kg Body Mass Index (BMI) 21.5 Intake & Output: Intake and Output for Last 24 Hours 01/30/22 01/31/22 02/01/22 23:59 23:59 23:59 Intake Total 400 / 400 300 / 700 800 / 800 Output Total 325 / 342 433 / 433 605 / 605 Balance 75 / 58 -133 / 267 195 / 195 Medical Nutrition Assessment Dietitian: Malnutrition Criteria Met Start: 01/23/22 10:41 Freq: Status: Active Protocol: Document 01/23/22 10:41 AG (Rec: 01/23/22 10:42 AG [id number]) Nutrition Malnutrition Evidence of Malnutrition Exists Yes Malnutrition (moderate): Acute Illness/Injury Evidenced By Suboptimal Energy Intake ( Moderate),Weight Loss ( Moderate),Physical Changes ( Moderate) Clinical Problem Acute Disease or Injury Related Malnutrition Etiology moderate, acute malnutrition r /t inadequate energy intake d/ t GI dysfunction Signs/Symptoms as evidenced by estimated PO intake meeting <75% of estimated energy needs >1 week ; unintentional wt loss of 3. 1kg/5% <1 month; Moderate muscle wasting/fat loss evident per physical exam in orbital, temporal, clavicle, and acromion areas Status Active Problem Recommendation Dietitian Recommendations/Changes Recommend advance diet as tolerated to regular-fat restricted, fiber restricted. Continue to offer ensure plus high protein although anticipate pt will continue to refuse. Will offer ensure clear w/ meals. Will monitor daily wts, PO intake, and adjust recommendations as indicated- may be appropriate for TPN if PO intake declines or if pt does not tolerate diet and if pt is agreeable to TPN. Lab / Micro Data Result Diagrams: 01/31/22 04:30 01/31/22 04:30 Micro: Microbiology 01/28/22 05:15 Sputum, Expectorated/Coughed Gram Stain - Final 01/28/22 05:15 Sputum, Expectorated/Coughed Respiratory Culture - Final Radiography Diagnostic Testing: Radiology Impression Fluoroscopy 01/31/22 08:01 IMPRESSION: No evidence of a fistulous connection to bowel with either of the drainage tubes. Drain #1 shows free flow of contrast within the peritoneal cavity, no bowel is noted. Drain 2. Only demonstrated GASTROGRAFIN contrast on the patient''s skin and down the right flank also on the patient''s skin. This suggests the drain is occluded perhaps due to a fibrin sheath. Electronically Signed: Jose Del Valle MD at 10:30 EDT , Physical Exam Const alert and no apparent distress HEENT normocephalic Eyes Eyes Narrative: EOM grossly intact, anicteric Neck supple Resp normal respiratory effort Resp Narrative: Somewhat diminished at the bases Cardio regular rate and regular rhythm GI GI Narrative: Abdominal exam unchanged. No signs of acute abdomen. Extremity Extremity Narrative: No significant edema noted Neuro moves all extremities Neuro Narrative: No overt focal deficits appreciated Psych Psych Narrative: Cooperative Assessment & Plan Assessment/Plan (1) Chronic pancreatitis: QUALIFIERS: Pancreatitis type: alcohol induced Qualified Code(s): K86.0 - Alcohol-induced chronic pancreatitis (2) Abdominal abscess: PLAN: Plan #abdominal abscess-most recent CT demonstrated resolution [address] Most recent CT showed resolution of previously noted abscesses Will need 14 days total of abx per ID She is presently on Bactrim DS, augmentin, and diflucan She has refused going back to [facility]-Dr. Fu with GI discussed with her previous physician Dr. Esparza at [facility] regarding drains Study with interventional radiology 01/31/2022, given results unable to pull drains. Discussed with Dr. Fu who recommended repeat in 1 week with outpatient pulling of the drains Will discuss best way to coordinate this with healthcare team #Acute debility Improving #Toxic encephalopathy resolved at this time, suspected to be secondary to narcotics usage #Moderate acute protein caloric malnutrition diet is a regular diet as recommended, Ensure clear with meals is being given to the patient, daily weights will be monitored, p.o. intake will be monitored, Do not feel pt needs TPN at this time. If continued good PO intake will d/c PICC upon discharge #Chronic pancreatitis complicates care, management, recovery, and prognosis Supportive care Continue pancrelipase Jazmin Edgar MD Charges/Coding Visit Charges Inpatient E&M: 73175 Subs Hosp L2
--- NOTE | 2022-02-01 09:14 | CASEMGMT ---
Discharge Director Of Student Financial Services Ashley from [facility] reached out. Pre-cert has been obtained. CLEM Hastings notified. Kyra ELAM Etl Tester
[2022-02-01] MEDS: Fluconazole 100 MG Tablet 200 MG PO (09:34)
[2022-02-01] MEDS: Docusate Sodium 100 MG Capsule PO (09:34)
[2022-02-01] MEDS: Amox/Clavulanate 875 MG Tablet PO (09:34)
[2022-02-01] MEDS: Smz/Tmp Ds Tablet 1 TABLET PO (09:34)
[2022-02-01] MEDS: Triamcinolone Ointment 1 APPLIC TUBE TOPICAL (09:35)
[2022-02-01] MEDS: Enoxaparin 40 MG/0.4 ML Syringe SC (09:37)
[2022-02-01] MEDS: Pantoprazole Sodium 40 MG Tablet PO (09:37)
[2022-02-01] MEDS: Senna/Docusate Sodium 1 Tablet PO (09:38)
--- NOTE | 2022-02-01 11:26 | NURSING ---
0930 Flushed ludivina yuko drains with 10 cc ns. Flushed easily.
--- NOTE | 2022-02-01 11:37 | CASEMGMT ---
JONATHAN CM to pt's room to discuss DC. Pt will be DC with drains in place. Pt denied needing SN in the home but wants the hospital nurse to provide education on drain care and flushes. Follow-up appointment to be schedule with radiology for evaluation and possible removal of drains. Nurse advised of education request.
--- NOTE | 2022-02-01 11:49 | CASEMGMT ---
Addendum entered by Chaparrita Downing 02/01/22 15:58: RN CM to Pt room. Pt, again, denied needing any SN at home regarding her drains. Pt voiced understanding of caring for drains. Nurse educated Pt of drain care including flushing and dressing. Pt said nurse naomie a picture with a diagram, which helped. Pt advised she will not shower or get the area wet. Pt plans to sponge bathe. Pt is aware to call with any issues. Pt has Rx. Addendum entered by Yamilet Peter 02/01/22 15:24: Order entered by for abd single view xray. TC to Nicky in radiology. She states she will make sure scheduling schedules this for the . They will call pt to make sure time works for that date. Pt reports she has an appt on the with . Nurse aware and updated hospitalist. Addendum entered by Yamilet Peter 02/01/22 14:27: JONATHAN MOORE in to pt room again. Discussed again if pt is comfortable flushing her drains. Pt states she was doing this prior to this hospitalization but would like a review from the nurse. Pt has alcohol swabs and prefilled saline syringes at home. Rx given for tape, 4x4's, 4x4 split gauze, syringes, ABD pads and NS bottles. After nurse reviews with patient, JONATHAN MOORE to check back to make sure she still does not want HHC. Original Note: TC to Radiology nurse Nicky. She states that an ambulatory order needs entered for an abd single view xray. She states once this is entered it will go to scheduling to schedule. Updated hospitalist and message sent to to enter order.
--- NOTE | 2022-02-01 13:01 | CASEMGMT ---
Social Work SW met with pt and informed that [facility] is able to accept. Pt confirms that she no longer feels she needs SNF and can return home at this time. tammie Abdi payroll administrative assistant updated and to notify [facility]. LUZMA Hsieh
--- NOTE | 2022-02-01 13:02 | CASEMGMT ---
Discharge Principal Military Analyst This fiction and nonfiction prose writer tried calling [facility] and was on hold for a decent amount of time. This fiction and nonfiction prose writer messaged in [facility] and let [facility] know patient will not be going to [facility] Rae DC Industrial Safety And Health Manager
--- NOTE | 2022-02-01 15:03 | DCINST_ITS ---
Discharge Instructions Diet Discharge Diet: 2000 mg Sodium Diet Activity Discharge Activity: Return to Normal Activity Follow Up Care Test Results: Test results from this visit will be discussed in further detail at your follow- up appointment, if applicable. Discharge Plan Admission Admit Date/Time: 01/22/22 18:31 Primary Reason for Your Visit: Weakness Attending Provider: Jazmin Edgar Primary Care Provider: Rodney Pool Consulting Providers: Mehran Dodd ; Britton Dixon ; Nnamdi Choi ; Richard Schroeder ; Jacky Del Valle Instructions Patient Instructions: Understanding Pancreatitis, Pancreatitis Chronic Dc Additional Instructions / Restrictions: *Please take this with you to your next doctors appointment* -Please follow up with Dr. Fu with GI within 1 week -You will need to take pancreatic enzymes, up to 5 pills with each meal and snacks -You have been placed on Bactrim, diflucan, and Augmentin and will need to remain on these through 02/10, capsule be sent to preferred pharmacy on file, you will need to take a dose of both Bactrim and Augmentin tonight, followed by 9 more days of all 3. -You will also need to follow with an infectious disease doctor. If you are unable to continue to follow at [facility], please follow up with Dr. Maria Dolores dong with infectious disease upon discharge. ?Prior to admission it appears you has been on Orencia this was held due to year infection, and you remain on antibiotics. Will be important to have close follow-up with your primary care physician to discuss when it is appropriate to resume this medication ?Would advise you to not resume Xanax upon discharge as this can lead to falls and confusion ? He will need to follow-up with interventional radiology in 1 week for further evaluation of your drains, this will be arranged, however, if you do not hear about scheduling within 24 to [address] Fu's office to inquire about the evaluation. ? Would advised against using both Xanax and oxycodone at the same time as well. ?You have been placed on Reglan 10 mg tablets to take 4 times daily. Please discuss the prescription and continuation with your GI doctor or primary care physician upon discharge and for further refills if needed. ?You will be instructed on how to flush your drains prior to discharge. You will do this twice daily ? Please keep drain site clean and dry. You will be instructed on how to care for this prior to discharge All medications have been sent to [facility] retail pharmacy -Please call your primary care provider's office upon discharge to schedule a hospital follow up within 1 week. -For any concerning signs or symptoms please call 911 or proceed to the nearest emergency department Discharge Orders/Prescriptions Prescriptions: New Creon 6,000-19,000 -30,000 unit Capsule,Delayed Release(Dr/Ec) See Rx Instructions .ROUTE .COMPLEX 30 Days Qty: 150 0RF Rx Instructions: Take up to 5 caps with meals and snacks cyanocobalamin (vitamin B-12) 500 mcg Tablet 1,000 mcg PO BREAKFAST 30 Days Qty: 60 0RF docusate sodium 100 mg Capsule 100 mg PO BID 30 Days Qty: 60 0RF folic acid 1 mg Tablet 1 mg PO BREAKFAST 30 Days Qty: 30 0RF metoclopramide HCl 10 mg Tablet 10 mg PO Q6H 14 Days Qty: 56 0RF Continued losartan 50 mg tablet 25 mg PO DAILY PRN (Reason: elevated BP) rizatriptan 10 tablet 10 mg PO PRN PRN (Reason: Migraine Headache) Label Comments: omega-3 fatty acids 1,000 MG capsule 2,000 mg PO DAILY magnesium oxide 400 MG tablet 400 mg PO DAILY calcium carbonate-vitamin D3 1 EACH tablet 1 tablet PO DAILY albuterol sulfate 2.5 mg /3 mL (0.083 %) solution for nebulization 3 mg inhalation Q4H PRN PRN (Reason: Wheezing) betamethasone, augmented [Diprolene (augmented)] 0.05 % Ointment 1 applic TOPICAL DAILY bacitracin zinc 500 unit/gram Ointment 1 applic TOPICAL DAILY PRN (Reason: Skin Cleansing) Nicotrol 10 mg Cartridge 1 inh INHALATION 4X/DAY PRN (Reason: Smoking Cessation) tretinoin [Retin-A] 0.025 % Gel 1 applic TOPICAL QHS atorvastatin 40 mg tablet 20 mg PO QHS Label Comments: take 1/2 tablet by mouth at bedtime for cholesterol ropinirole 1 mg tablet 1 mg PO QHS Label Comments: take 1 tablet by mouth at bedtime quetiapine 200 mg tablet 100 mg PO QHS ergocalciferol (vitamin D2) [Vitamin D2] 1,250 mcg (50,000 unit) capsule 1,250 mcg PO FR sennosides-docusate sodium [Senna Plus] 8.6-50 mg tablet 1 tab PO BID Label Comments: take 1 tablet by mouth twice a day pantoprazole 40 mg tablet,delayed release (DR/EC) 40 mg PO DAILY Label Comments: take 1 tablet by mouth once daily AT 6AM fluconazole 200 mg tablet 200 mg PO DAILY 9 Days Qty: 9 0RF Rx Instructions: Please take for 9 days starting 02/02/2022 sulfamethoxazole-trimethoprim 800-160 mg tablet 1 tab PO Q12H 9 Days Qty: 19 0RF Label Comments: take 1 tablet by mouth every 12 hours amoxicillin-pot clavulanate 875-125 mg tablet 1 tab PO BID 9 Days Qty: 19 0RF Rx Instructions: You will need to take 1 tab tonight followed by 1 tab twice a day for 9 days Held abatacept 125 mg/mL syringe 125 mg subcut FR Hold Instructions: Resume on 02/14/22. You are on antibiotics for an infection that he had in your abdomen, this medication has been held. Please discuss with your primary care physician to determine when it is appropriate to resume this medication alprazolam [Xanax] 1 MG tablet 1 mg PO BID Hold Instructions: Resume on 02/14/22. Please discuss with your care physician for his resuming this medication Discontinued oxycodone 10 mg tablet 10 mg PO Q8H PRN (Reason: pain) 14 Days Qty: 30 0RF Creon 1 CAPSULE capsule 2 capsule PO ACHS Otezla 30 MG tablet 30 mg PO DAILY Referrals / Follow Up: Rodney Pool MD [Primary Care Provider] - Within 1 Week Abundio Fu DO [Med Staff - Active Staff] - Within 1 Week (Follow up with Dr. Fu in 1 week) Nnamdi Choi MD [Med Staff - Active Staff] - Within 1 Week (Follow up with Dr. Choi upon discharge with Infectious Disease if you are unable to continue to follow with your doctor at [facility]) Disposition Disposition (needs filled in before D/C Order can be placed): Home, Self Care
[2022-02-01] MEDS: 0.9% Saline Lock 10 ML Syringe IV (15:32)
--- NOTE | 2022-02-01 16:34 | DS.PCM_ITS ---
Providers Date of Admission: 01/22/22 Date of Discharge: 02/01/22 Primary Care Physician: Dr. Rodney Pool MD Consultations 01/25/22 15:57 Consult: Gastroenterology Routine Consulting Provider: [facility] Reason for Consult: ? need for TPN EMERGENT Consult: No Notified: Yes Date Notified: 01/25/22 Time Notified: 15:57 Method of Notification: Verbal 01/25/22 19:23 Consult: Infectious Disease Routine Consulting Provider: Nnamdi Choi Reason for Consult: ? continued need for antibiotic coverage, ? oral EMERGENT Consult: No Notified: Yes Date Notified: 01/26/22 Time Notified: 04:55 Method of Notification: Answering Service 01/30/22 16:28 Consult: Interventional Radiology Routine Consulting Provider: Jacky Del Valle Reason for Consult: Abdominal abcess drain- dye to verify no leak and pull EMERGENT Consult: No Notified: Yes Date Notified: 01/31/22 Time Notified: 08:30 Method of Notification: spoke on phone Comments:: C/s req per GI. Pt has abd drains, abcesses resolved Reason For Visit: FAILURE TO THRIVE Diagnosis Discharge Diagnosis (1) Chronic pancreatitis: Status: Chronic Code(s): K86.1 - Other chronic pancreatitis Qualifiers: Pancreatitis type: alcohol induced Qualified Code(s): K86.0 - Alcohol- induced chronic pancreatitis (2) Abdominal abscess: Status: Acute Plan #abdominal abscess-most recent CT demonstrated resolution #Acute debility #Toxic encephalopathy #Chronic pancreatitis Medications at Discharge Home Medications alprazolam 1 mg tablet (Xanax) 1 mg PO BID mood 12/16/13 rizatriptan 10 mg tablet 10 mg PO PRN PRN Migraine Headache 05/06/17 calcium carbonate 600 mg-vitamin D3 10 mcg (400 unit) tablet 1 tablet PO DAILY SUPPLEMENT 08/04/20 magnesium oxide 400 mg (241.3 mg magnesium) tablet 400 mg PO DAILY SUPPLEMENT 08/04/20 omega-3 fatty acids 1,000 mg capsule 2,000 mg PO DAILY supplement 08/04/20 abatacept 125 mg/mL subcutaneous syringe 125 mg subcut FR Check with primary doctor 07/28/21 albuterol sulfate 2.5 mg/3 mL (0.083 %) solution for nebulization 3 mg inhalation Q4H PRN PRN Wheezing 08/11/21 bacitracin zinc 500 unit/gram topical ointment 1 applic topical DAILY PRN Skin Cleansing 08/11/21 betamethasone, augmented 0.05 % topical ointment (Diprolene (augmented)) 1 applic topical DAILY SKIN 08/11/21 nicotine 10 mg inhalation cartridge (Nicotrol) 1 inh inhalation 4X/DAY PRN Smoking Cessation 08/11/21 tretinoin 0.025 % topical gel (Retin-A) 1 applic topical QHS PSORIASIS 08/11/21 losartan 50 mg tablet 25 mg PO DAILY PRN elevated BP 11/08/21 atorvastatin 40 mg tablet 20 mg PO QHS cholesterol 01/05/22 ergocalciferol (vitamin D2) 1,250 mcg (50,000 unit) capsule (Vitamin D2) 1,250 mcg PO FR SUPPLEMENT 01/05/22 quetiapine 200 mg tablet 100 mg PO QHS RLS 01/05/22 ropinirole 1 mg tablet 1 mg PO QHS RLS 01/05/22 pantoprazole 40 mg tablet,delayed release 40 mg PO DAILY stomach 01/22/22 sennosides 8.6 mg-docusate sodium 50 mg tablet (Senna Plus) 1 tab PO BID Check with primary doctor 01/22/22 amoxicillin 875 mg-potassium clavulanate 125 mg tablet 1 tab PO BID infection 9 days #19 tabs 02/01/22 cyanocobalamin (vitamin B-12) 500 mcg tablet 1,000 mcg PO BREAKFAST 30 days #60 tabs 02/01/22 docusate sodium 100 mg capsule 100 mg PO BID 30 days #60 caps 02/01/22 fluconazole 200 mg tablet 200 mg PO DAILY infection 9 days #9 tabs 02/01/22 folic acid 1 mg tablet 1 mg PO BREAKFAST 30 days #30 tabs 02/01/22 syxxeu-spdiwsko-xiodmqp 6,000-19,000-30,000 unit capsule,delayed rel (Creon) See Rx Instructions .Route .COMPLEX 30 days #150 caps 02/01/22 metoclopramide HCl 10 mg tablet 10 mg PO Q6H 14 days #56 tabs 02/01/22 sulfamethoxazole 800 mg-trimethoprim 160 mg tablet 1 tab PO Q12H Check with primary doctor 9 days #19 tabs 02/01/22 Hospital Course Procedures - (IR fluoroscopy drain evaluation) Summary of Care Provided Minutes Spent on Discharge: 37 Hospital Course: Ms. Gonzalez is a 66-year-old female with a history of COPD, alcohol abuse, chronic pancreatitis leading to pancreatic stricture with resultant perforation and abscess formation requiring 2 drains to be placed who presented to [facility] 01/22/2022 with confusion, weakness, lack of appetite. She had just been discharged from [facility] on the where she was admitted for pancreatitis and drain placement after perforation. She had been discharged on Bactrim, Augmentin and fluconazole. She was admitted to our facility 01/22/2022 for failure to thrive and encephalopathy. GI was consulted as well as infectious disease for recommendations. Follow-up with Dr. Esparza at [facility] was discussed but she was adamantly and consistently against this and insisted her current condition and problem be addressed through our health system. There was concern on admission that due to her poor p.o. intake that she would need a PICC line for TPN, but her appetite improved significantly and she was tolerating diet without any incident by discharge. In regards to her pancreatic stricture due to chronic pancreatitis secondary to chronic alcohol use she was recommended to have a Whipple procedure previously but she had refused. She did have the 2 perforations with the first 1 roughly 1.5 years ago and the second was 12/28. She had a repeat CT abdomen to assess for any remainder of abscess, none was found. She was transition from IV antibiotics back to Bactrim, Augmentin, fluconazole with plan for 14 days total. She continued to clinically improve and after Dr. Fu with gastroenterology talked to Dr. Esparza at [facility] the decision was made for interventional radiology to put dye through drains to assess for any residual perforation. 1 did not seem to demonstrate any communication, but the other was inconclusive. After discussion with gastroenterology it was deemed that she would be able to go home with repeat evaluation within 1 week with plan to pull the drains if feasible and follow-up with GI shortly after. In regards to her failure to thrive, her appetite improved significantly and she continue to work with physical therapy and by discharge was deemed to no longer need SNF upon discharge. She is coherent and able to discuss her current medical problems and expressed wish to go home. Her discharge instructions were as follows: -Please follow up with Dr. Fu with GI within 1 week -You will need to take pancreatic enzymes, up to 5 pills with each meal and snacks -You have been placed on Bactrim, diflucan, and Augmentin and will need to remain on these through 02/10, capsule be sent to preferred pharmacy on file, you will need to take a dose of both Bactrim and Augmentin tonight, followed by 9 more days of all 3. -You will also need to follow with an infectious disease doctor. If you are unable to continue to follow at [facility], please follow up with Dr. Choi with infectious disease upon discharge. ?Prior to admission it appears you has been on Orencia this was held due to year infection, and you remain on antibiotics.? Will be important to have close follow-up with your primary care physician to discuss when it is appropriate to resume this medication ?Would advise you to not resume Xanax upon discharge as this can lead to falls and confusion ? He will need to follow-up with interventional radiology in 1 week for further evaluation of your drains, this will be arranged, however, if you do not hear about scheduling within 24 to [address] Fu's office to inquire about the evaluation. ? Would advised against using both Xanax and oxycodone at the same time as well. ?You have been placed on Reglan 10 mg tablets to take 4 times daily.? Please discuss the prescription and continuation with your GI doctor or primary care physician upon discharge and for further refills if needed. ?You will be instructed on how to flush your drains prior to discharge.? You will do this twice daily ? Please keep drain site clean and dry.? You will be instructed on how to care for this prior to discharge All medications have been sent to [facility] retail pharmacy -Please call your primary care provider's office upon discharge to schedule a hospital follow up within 1 week. -For any concerning signs or symptoms please call 911 or proceed to the nearest emergency department Physical Exam Const alert and no apparent distress HEENT normocephalic Eyes Eyes Narrative: EOM grossly intact, anicteric Neck supple Resp normal respiratory effort Resp Narrative: Somewhat diminished at the bases Cardio regular rate and regular rhythm GI GI Narrative: Abdominal exam unchanged. No signs of acute abdomen. Extremity Extremity Narrative: No significant edema noted Neuro moves all extremities Neuro Narrative: No overt focal deficits appreciated Psych Psych Narrative: Cooperative Weight / BMI Weight Weight: 57.1 kg Body Mass Index (BMI) 21.5 ABG / Lab / Microbiology Data Result Diagrams: 01/31/22 04:30 01/31/22 04:30 Microbiology: Microbiology 01/28/22 05:15 Sputum, Expectorated/Coughed Gram Stain - Final 01/28/22 05:15 Sputum, Expectorated/Coughed Respiratory Culture - Final D/C Instructions Discharge Diet: 2000 mg Sodium Diet Meaningful Use Info Meaningful Use Diagnoses (Choose all that apply): None applicable Discharge Plan Admission Admit Date/Time: 01/22/22 18:31 Primary Reason for Your Visit: Weakness Attending Provider: Jazmin Edgar Primary Care Provider: Rodney Pool Consulting Providers: Mehran Dodd ; Britton Dixon ; Nnamdi Choi ; Richard Schroeder ; Jacky Del Valle Instructions Patient Instructions: Understanding Pancreatitis, Pancreatitis Chronic Dc Additional Instructions / Restrictions: *Please take this with you to your next doctors appointment* -Please follow up with Dr. Fu with GI within 1 week -You will need to take pancreatic enzymes, up to 5 pills with each meal and snacks -You have been placed on Bactrim, diflucan, and Augmentin and will need to remain on these through 02/10, capsule be sent to preferred pharmacy on file, you will need to take a dose of both Bactrim and Augmentin tonight, followed by 9 more days of all 3. -You will also need to follow with an infectious disease doctor. If you are unable to continue to follow at [facility], please follow up with Dr. Choi with infectious disease upon discharge. ?Prior to admission it appears you has been on Orencia this was held due to year infection, and you remain on antibiotics. Will be important to have close follow-up with your primary care physician to discuss when it is appropriate to resume this medication ?Would advise you to not resume Xanax upon discharge as this can lead to falls and confusion ? He will need to follow-up with interventional radiology in 1 week for further evaluation of your drains, this will be arranged, however, if you do not hear about scheduling within 24 to [address] Fu's office to inquire about the evaluation. ? Would advised against using both Xanax and oxycodone at the same time as well. ?You have been placed on Reglan 10 mg tablets to take 4 times daily. Please discuss the prescription and continuation with your GI doctor or primary care physician upon discharge and for further refills if needed. ?You will be instructed on how to flush your drains prior to discharge. You will do this twice daily ? Please keep drain site clean and dry. You will be instructed on how to care for this prior to discharge All medications have been sent to [facility] retail pharmacy -Please call your primary care provider's office upon discharge to schedule a hospital follow up within 1 week. -For any concerning signs or symptoms please call 911 or proceed to the nearest emergency department Discharge Orders/Prescriptions Prescriptions: New Creon 6,000-19,000 -30,000 unit Capsule,Delayed Release(Dr/Ec) See Rx Instructions .ROUTE .COMPLEX 30 Days Qty: 150 0RF Rx Instructions: Take up to 5 caps with meals and snacks cyanocobalamin (vitamin B-12) 500 mcg Tablet 1,000 mcg PO BREAKFAST 30 Days Qty: 60 0RF docusate sodium 100 mg Capsule 100 mg PO BID 30 Days Qty: 60 0RF folic acid 1 mg Tablet 1 mg PO BREAKFAST 30 Days Qty: 30 0RF metoclopramide HCl 10 mg Tablet 10 mg PO Q6H 14 Days Qty: 56 0RF Continued losartan 50 mg tablet 25 mg PO DAILY PRN (Reason: elevated BP) rizatriptan 10 tablet 10 mg PO PRN PRN (Reason: Migraine Headache) Label Comments: omega-3 fatty acids 1,000 MG capsule 2,000 mg PO DAILY magnesium oxide 400 MG tablet 400 mg PO DAILY calcium carbonate-vitamin D3 1 EACH tablet 1 tablet PO DAILY albuterol sulfate 2.5 mg /3 mL (0.083 %) solution for nebulization 3 mg inhalation Q4H PRN PRN (Reason: Wheezing) betamethasone, augmented [Diprolene (augmented)] 0.05 % Ointment 1 applic TOPICAL DAILY bacitracin zinc 500 unit/gram Ointment 1 applic TOPICAL DAILY PRN (Reason: Skin Cleansing) Nicotrol 10 mg Cartridge 1 inh INHALATION 4X/DAY PRN (Reason: Smoking Cessation) tretinoin [Retin-A] 0.025 % Gel 1 applic TOPICAL QHS atorvastatin 40 mg tablet 20 mg PO QHS Label Comments: take 1/2 tablet by mouth at bedtime for cholesterol ropinirole 1 mg tablet 1 mg PO QHS Label Comments: take 1 tablet by mouth at bedtime quetiapine 200 mg tablet 100 mg PO QHS ergocalciferol (vitamin D2) [Vitamin D2] 1,250 mcg (50,000 unit) capsule 1,250 mcg PO FR sennosides-docusate sodium [Senna Plus] 8.6-50 mg tablet 1 tab PO BID Label Comments: take 1 tablet by mouth twice a day pantoprazole 40 mg tablet,delayed release (DR/EC) 40 mg PO DAILY Label Comments: take 1 tablet by mouth once daily AT 6AM fluconazole 200 mg tablet 200 mg PO DAILY 9 Days Qty: 9 0RF Rx Instructions: Please take for 9 days starting 02/02/2022 sulfamethoxazole-trimethoprim 800-160 mg tablet 1 tab PO Q12H 9 Days Qty: 19 0RF Label Comments: take 1 tablet by mouth every 12 hours amoxicillin-pot clavulanate 875-125 mg tablet 1 tab PO BID 9 Days Qty: 19 0RF Rx Instructions: You will need to take 1 tab tonight followed by 1 tab twice a day for 9 days Held abatacept 125 mg/mL syringe 125 mg subcut FR Hold Instructions: Resume on 02/14/22. You are on antibiotics for an infection that he had in your abdomen, this medication has been held. Please discuss with your primary care physician to determine when it is appropriate to resume this medication alprazolam [Xanax] 1 MG tablet 1 mg PO BID Hold Instructions: Resume on 02/14/22. Please discuss with your care physician for his resuming this medication Discontinued oxycodone 10 mg tablet 10 mg PO Q8H PRN (Reason: pain) 14 Days Qty: 30 0RF Creon 1 CAPSULE capsule 2 capsule PO ACHS Otezla 30 MG tablet 30 mg PO DAILY Referrals / Follow Up: Rodney Pool MD [Primary Care Provider] - Within 1 Week Abundio Fu DO [Med Staff - Active Staff] - Within 1 Week (Follow up with Dr. Fu in 1 week) Nnamdi Choi MD [Med Staff - Active Staff] - Within 1 Week (Follow up with Dr. Choi upon discharge with Infectious Disease if you are unable to continue to follow with your doctor at [facility]) Disposition Disposition (needs filled in before D/C Order can be placed): Home, Self Care Charges/Coding Visit Charges Inpatient E&M: 17184 Disch Hosp
--- NOTE | 2022-02-06 14:37 | CASEMGMT ---
Received request for medical records to support need for wound rx. Faxed dc summary at this time to Rissa Magallanes.
== END 2022-02-01 16:27 | disposition home or self-care (01) | DRG 421 ==
LOC: ED 16:53 → MS3 18:42
PROVIDERS: Internal Medicine; Emergency Provider Emergency Medicine; PCP Family Medicine; Visit Provider Internal Medicine
DX: R62.7 Adult failure to thrive (principal); G92.9 Unspecified toxic encephalopathy; E43 Unspecified severe protein-calorie malnutrition; J44.9 Chronic obstructive pulmonary disease, unspecified; K86.0 Alcohol-induced chronic pancreatitis; E78.00 Pure hypercholesterolemia, unspecified; G43.909 Migraine, unspecified, not intractable, without status migrainosus; L02.211 Cutaneous abscess of abdominal wall; Z87.891 Personal history of nicotine dependence; R53.1 Weakness; T40.2X5A Adverse effect of other opioids, initial encounter; Z51.5 Encounter for palliative care; Z66 Do not resuscitate; R53.81 Other malaise; Z87.01 Personal history of pneumonia (recurrent)
CPT/HCPCS: 36415; 36569; 71046; 74177; 76000; 80053; 83735; 84100; 85025; 86850; 86900; 86901; 87070; 87205; 97110; 97116; 97163; 97166; 97530; 97535; 97802; 97803; 99285; 99406; J7030; J7040; Q9967; A4216; J0295; J2405; J3490

== ENCOUNTER → 2022-02-15 | Outpatient (CLI) | payer MEDICAID, SELFPAY | END | disposition home or self-care (01) | LOC: RAD 10:19 | PROVIDERS: PCP Family Medicine; Referring Provider Internal Medicine Gastroenterology; Visit Provider Internal Medicine Gastroenterology | DX: K86.0 Alcohol-induced chronic pancreatitis (principal) ==

== ENCOUNTER → 2022-02-23 | Outpatient (CLI) | payer MEDICAID, SELFPAY ==
--- NOTE | 2022-02-23 09:45 | ART_ITS ---
Reason For Study: PVD Procedure A bilateral lower extremity continuous wave Doppler with analog waveform analysis,segmental pressures,and ankle brachial indexes without exercise. Left Segmental Pressures Left brachial= 126mmHg. Left posterior tibial artery = 136mmHg. Left dorsalis pedis artery = 134mmHg. Left digit = 126 mmHg. The left posterior tibial artery waveforms are triphasic. The left dorsalis pedis waveforms are triphasic. Right Segmental Pressures Right brachial= 117mmHg. Right posterior tibial artery = 122mmHg. Right dorsalis pedis artery = 125mmHg. Right digit = 103 mmHg. The right posterior tibial artery waveforms are triphasic. The right dorsalis pedis waveforms are triphasic. Indices The right ankle brachial index by the posterior tibial artery is 0.97. The right ankle brachial index by the dorsalis pedis is 0.99. The right digital-brachial index is 0.82. The left ankle brachial index by the posterior tibial artery is 1.08. The left ankle brachial index by the dorsalis pedis is 1.06. The left digital-brachial index is 1.00. VL/Lower Ext Art Exam w/o Exercis Interpretation Summary Triphasic Doppler waveforms are noted at ankle level bilaterally. Pulse-volume recordings appear satisfactory at all levels bilaterally. Resting ankle-brachial indices are norm al bilaterally. Digital-brachial indices are normal bilaterally. There is no evidence of significant arterial occlusive disease in the lower ext remities bilaterally. Ordering Physician: Kalen Riojas Referring Physician: KALEN RIOJAS DPM Performed By: Tejas Santoyo RVT
--- NOTE | 2022-02-23 09:45 | VDLE_ITS ---
Reason For Study: Foot Cramps RIGHT LEFT CFV is compressible, spontaneous, phasic, CFV is compressible, spontaneous, phasic, competent and demonstrates normal competent, and demonstrates normal augmentation. augmentation. FV is compressible, spontaneous, phasic, FV is compressible, spontaneous, phasic, competent and demonstrates normal competent and demonstrates normal augmentation. augmentation. POP V is compressible, spontaneous, phasic, POP V is compressible, spontaneous, phasic, competent and demonstrates normal competent and demonstrates normal augmentation. augmentation. T/P Trunk is compressible. T/P Trunk is compressible. PTV is compressible. PTV is compressible. RT PerV is compressible. LT PerV is compressible. SFJ is competent and measures 0.42 x 0.51 cm. SFJ is competent and measures 0.48 x 0.59 cm. GSV proximal thigh measures 0.40 x 0.45 cm. GSV proximal thigh measures 0.36 x 0.39 cm. GSV at knee measures 0.38 x 0.43 cm. GSV at knee measures 0.38 x 0.36 cm. GSV is competent throughout. GSV is competent throughout. SSV proximal calf is competent and measures SSV proximal calf is competent and measures 0.23 x 0.23 cm. 0.27 x 0.27 cm. Procedure Exam performed in department. This is a venous duplex using B-mode, color flow and spectral Doppler. The exam was diagnostic. VL/Venous Duplex US - Evangelist Extrem Interpretation Summary Deep veins of the lower extremities are bilaterally patent and compressible seg mentally. There is no evidence of deep vein thrombosis on either side. Valvular competence appears in tact within the proximal deep venous systems bilaterally. The great saphenous veins appear bila terally patent and compressible segmentally. Sapheno-femoral junctions are bilaterally competent . Valvular competence appears to be intact segmentally within the great saphenous veins bilaterally. Small saphenous veins are patent and competent bilaterally. Ordering Physician: Matthieu Riojas Referring Physician: Jm Pool Performed By: Tejas Santoyo RVT
== END | disposition home or self-care (01) ==
LOC: CVS 09:43
PROVIDERS: PCP Family Medicine; Visit Provider Student in an Organized Health Care Education/Training Program
DX: I73.89 Other specified peripheral vascular diseases (principal); R25.2 Cramp and spasm
CPT/HCPCS: 93923; 93970

== ENCOUNTER → 2022-09-04 | Outpatient (CLI) | payer MEDICAID, SELFPAY ==
--- NOTE | 2022-09-04 14:53 | US_ITS ---
EXAM: Diagnostic bilateral breast mammogram and diagnostic bilateral breast ultrasound REASON FOR EXAM: Female, 66 years old. Right breast tenderness for 6 months duration. PERTINENT HISTORY: Non-contributory. TECHNIQUE: Digital bilateral breast leah (3D mammographic acquisition) in the CC and MLO projections. 2-D mediolateral oblique (MLO) and craniocaudad (CC) views of both breasts were obtained. CAD: Full Field Digital Mammography with Computer Added Detection was performed. Real-time trejo scale and color sonographic images were obtained of the right outer and retroareolar breast in the clinical area of concern. COMPARISON: None. FINDINGS: Mammogram findings: Breast Composition: There are scattered areas of fibroglandular density. There are no dominant masses or suspicious calcifications. No other significant abnormalities are identified. Ultrasound was obtained for further assessment of both breasts. Ultrasound findings: The right outer breast from the 6:00 to 12:00 position and the retroareolar breast in the clinical area of concern was assessed. Normal fibroglandular tissue. No abnormal masses or fluid collections. US/Breast Limited Unilateral IMPRESSION: Negative diagnostic mammogram. No abnormal masses or fluid collections on ultrasound examination of the clinical area of concern in the right breast. ASSESSMENT CATEGORY: BIRADS Category 1: Negative. A letter regarding these results will be sent to the patient by the facility within 30 days. No further assessment is recommended. Follow up with physical examination is recommended. If clinical concerns for enlarging mass or nipple discharge, repeat diagnostic ultrasound and mammogram is recommended. Approximately 10% of breast cancers are not detected by mammography. A normal mammogram should not delay biopsy of a clinically suspicious abnormality. Electronically Signed: Venkata Duong MD at 16:28 EDT ,
== END | disposition home or self-care (01) ==
PROVIDERS: PCP Family Medicine; Referring Provider Internal Medicine; Visit Provider Internal Medicine
DX: N64.4 Mastodynia (principal)
CPT/HCPCS: 77062; 76642; 77066; G0279

== ENCOUNTER 2022-09-21 11:56 | Day surgery (SDC) | payer MEDICAID, SELFPAY ==
[2022-09-21 12:18] VITALS: BP 138/90; PULSE 83; RESP 16; TEMP 36.3; O2SAT 95; BMI 24.7
[2022-09-21] MEDS: Lactated Ringers 1,000 ML 15 ML IV (12:20)
[2022-09-21] MEDS: Cefazolin 2 GM in 0.9% Normal Saline 100 ML IV (13:20)
--- NOTE | 2022-09-21 13:20 | RAD_ITS ---
CLINICAL HISTORY: Female, 66 years old. Compression fracture of T12. PROCEDURE: KYPHOPLASTY - T12 FLUOROSCOPY TIME (if supplied): (50 seconds) minutes/seconds. 10 images. 18.36 mGy RAD/Thoracic Spine 2 Views IMPRESSION: Intraoperative imaging provided for kyphoplasty of the T12 vertebra. Electronically Signed: Aiden Curtis MD at 14:35 EDT ,
--- NOTE | 2022-09-21 13:30 | BONBX_PTH ---
PATIENT: DAVID BERG [place] [facility] [id number] AGE/SX: 66/F ROOM: RE09/21/[address]: Dr. Bruce Carmona MD : [id number] BED: DIS: 09/21/2022 SPEC #: [id number] RECD: 09/21/22 15:26 STATUS: POLINA RENelida #: [id number] DIANE: 09/21/22 13:[address]: Bruce Carmona DEPT: SURGICAL PATHOLOGY RECD BY: Gisela Dillard ENTERED: 09/24/22 08:06 SP TYPE: Bone OTHR DR: Dr. Sanam Alex MD Tissues: Vertebra, NOS Procedures: Decalcification bone/plaque Surgery Specimen Level V HEADER OPERATION: Kyphoplasty at T12 PRE-OP DIAGNOSIS: T12 compression fracture TISSUE SUBMITTED: Bone biopsy T12 MICROSCOPIC DIAGNOSIS T12 bone biopsy: Fragments of blood clots, negative for malignancy. See comment. SJ:swapna 09/25/2022 COMMENT Bony fragments are not seen. Trilineage hematopoiesis is noted. Correlation with clinical findings and appropriate follow up are necessary. MICROSCOPIC DESCRIPTION Slides are reviewed. GROSS DESCRIPTION Received in fixative is one container labeled with the patient's name and designated bone biopsy T12. The specimen consists of multiple irregular fragments of blood clot mixed with possible fragments of bone that in aggregate measure 2.0 x 1.5 x 0.1 cm. The specimen is totally submitted in one cassette after decalcification. / ERICA:swapna 09/24/2022 TC:5 CPT: 52822, 92493
[2022-09-21] MEDS: Lidocaine 1% (30 ml sdv) 30 ML Vial (13:40)
[2022-09-21] MEDS: Bupivacaine Mpf 0.5% 30 ML VIAL (13:40)
[2022-09-21] MEDS: BACITRACIN/POLYMYXIN B 15 GM Tube 1 APPLIC (14:01)
--- NOTE | 2022-09-21 14:05 | OP.PCM_ITS ---
Report of Operation Date of Procedure: 09/21/22 Description of Surgical Findings:: PROCEDURES: 1. Inés balloon kyphoplasty at the T12 level 2. Insertion of [employer] HV-R bone cement under low pressure at the T12 3. Bone biopsy at T12 4. Fluoroscopic guidance and interpretation of images PREOPERATIVE DIAGNOSES: Age-related osteoporosis with pathological fracture of T12 POSTOPERATIVE DIAGNOSES: Age-related osteoporosis with pathological fracture of T12 ANESTHESIA: MAC COMPLICATIONS: None BLOOD LOSS: Minimal PROCEDURE IN DETAIL: History and physical today was reviewed. Risks and benefits of procedure explained. The patient understood, agreed to procedure, informed consent was obtained. IV inserted per routine protocol. The patient was taken to the operating room, placed in the prone position with a pillow positioned underneath the chest. A 2 g of Ancef IV piggyback was infused per anesthesia. The upper and middle back area was prepped and draped in a sterile fashion using iodine x3. Under direct visualization with fluoroscopy with the C-arm, which brought into position on AP as well as lateral view at the T12 level., the T12 pedicle was then identified. In the view of the collapsed T12, a transpedicular approach to the vertebral body was appropriate. Starting on the left side at T12 level, an 11-gauge needle was advanced through the T12 pedicle through the junction of the pedicle and the vertebral body on the left side. Position was then confirmed on AP as well as lateral view. Following satisfactory placement of the needle to make sure it is further off the midline and interlaminar space. The stylet of the needle was then removed. A guide pen and then inserted through the 11-gauge trocar and advanced approximately 3 mm from the anterior cortex on the lateral view. AP and lateral images were then taken to verify position and trajectory of the needle. The needle was then removed leaving the guide pen in place. The introducer was then placed over the guide pen and advanced through the pedicle. Once the guidewire was at the junction of the pedicle and the vertebral body, a lateral image was taken to ensure that the cannula was positioned approximately 1 cm past the vertebral body and a lateral image was then taken to ensure correct [id number] and through the cannula, a drill was then advanced into the vertebral body under fluoroscopic guidance towards the anterior cortex creating a channel. The anterior cortex were then probed with guide pen to ensure no perforation in the anterior cortex. After completion of the entry into the vertebral body, a 30 mL inflatable bone tamp was then inserted through the cannula and advanced under direct fluoroscopic guidance into the vertebral body near the anterior cortex., The biopsy was then taken at the T12 level. After completion of the entry into the vertebral body, a balloon tamp utilizing radiopaque marker bands on the bone tamp were identified using AP and lateral images. Once the bone tamp was in position, it was inflated to approximately 2 mL and making sure that the pressure is not passing 250 psi. Expansion of the bone tamp was then done sequentially in an increments of 0.25 to 0.5 mL of contrast with a careful attention was being paid to the inflation pressure and the balloon position. The inflation was then monitored on AP and lateral view images. The final balloon volume was 3 mL on the left side at T12 level. There was no breach of the lateral wall or the anterior cortex of the vertebral body. Direct reduction of the fracture was then achieved. Endplate movement was then noticed and approximately 5 mm of the height oriental orthodox was achieved at T12 . Under fluoroscopic imaging and a bone void filler, internal fixation was achieved through a low pressure injection of a inés HV-R bone cement. The cavity was then filled with a total volume of 5 mL on the left side at T12, Once the bone cement had hardened, the cannula was then removed. Once the cannula was removed and satisfactory hemostasis was maintained, the incision as then closed with a skin glue at the skin. The patient was kept in the prone position for approximately 10 minutes post-cement injection. the patient was then turned into supine position, monitored briefly and returned to PACU. The patient was moving both of her lower extremities at the same time without any apparent neurological deficits. Throughout the procedure, there were no intraoperative complications, Motor as well as sensory exam was unchanged from prior to procedure. ESTIMATED BLOOD LOSS: Minimal less than 10 mL ASSESSMENT AND PLAN: This is a 66-year-old Femae with age-related osteoporosis with pathological fracture of T12 status post Inés balloon kyphoplasty at T12 and insertion of HV?R bone cement under low pressure at T12 biopsy of T12 under fluoroscopic guidance. The patient will continue her current medication. A prescription was given to the patient for Dilaudid 2 mg 1 p.o every 6 hours as needed for acute postoperative pain total of 12. The patient will follow-up in approximately 1 week for re-evaluation.
[2022-09-21 14:10] VITALS: BP 103/66; BP 138/90; PULSE 92; RESP 14; TEMP 36.8; O2SAT 90
[2022-09-21 14:15] VITALS: BP 117/69; BP 138/90; PULSE 83; RESP 16; O2SAT 94
[2022-09-21 14:20] VITALS: BP 126/68; BP 138/90; PULSE 83; RESP 16; O2SAT 93
[2022-09-21 14:25] VITALS: BP 124/76; BP 138/90; PULSE 79; RESP 16; TEMP 36.9; O2SAT 93
[2022-09-21 14:59] VITALS: BP 138/90
== END 2022-09-21 15:02 | disposition home or self-care (01) ==
LOC: SDC 11:58 → AC 11:59
PROVIDERS: PCP Internal Medicine; Referring Provider Anesthesiology Pain Medicine; Visit Provider Anesthesiology Pain Medicine
PROC: (CPT 20245; principal; 2022-09-21 13:15)
DX: M80.08XA Age-related osteoporosis with current pathological fracture, vertebra(e), initial encounter for fracture (principal); J44.9 Chronic obstructive pulmonary disease, unspecified; G40.A09 Absence epileptic syndrome, not intractable, without status epilepticus; Z98.1 Arthrodesis status; B19.20 Unspecified viral hepatitis C without hepatic coma; Z87.891 Personal history of nicotine dependence; F41.0 Panic disorder [episodic paroxysmal anxiety]; Z79.891 Long term (current) use of opiate analgesic; M47.817 Spondylosis without myelopathy or radiculopathy, lumbosacral region
CPT/HCPCS: 20245; 22513; 01941; 72070; 76000; 88307; 88311; J7120; J2405

== ENCOUNTER → 2022-12-10 | Outpatient (CLI) | payer MEDICAID, SELFPAY | END | disposition home or self-care (01) | LOC: LABSPEC 15:18 | PROVIDERS: PCP Internal Medicine; Referring Provider Otolaryngology; Visit Provider Otolaryngology | DX: H66.90 Otitis media, unspecified, unspecified ear (principal) | CPT/HCPCS: 87070; 87075; 87077; 87186; 87205 ==

== ENCOUNTER 2023-03-25 15:30 | Outpatient (RCR) | payer MEDICAID, SELFPAY ==
--- NOTE | 2023-01-09 12:00 | HP.PTEVAL_ITS ---
Patient's Visit Information Visit Information Visit Information: DAVID BERG is a 67 year old F referred to Physical Therapy by Dr. Bari Guzman DO with a diagnosis of T12 compression fracture. Date of Evaluation: 01/08/23 Physical Therapist: Mario Bang DPT Visit Plan Frequency: 2x /Week Duration: 6 Weeks Plan: Start with core stability, BLE strengthening in aquatic setting. Pt. wants to be able to complete all IADLS and housework without issues, progress to activities to increase her tolerance in these areas. Subjective Subjective: Pt. is here today for her initial evaluation with diagnosis of T12 compression fracture. Pt. reports having compression fracture in July 2021 and again in 2022. Pt. does have osteoporosis and RA. She also has a pancreatic issue causing her to be hospitalized for a month or so last year. Pt. denies N/T in either LE. Pt. stays at home mostly and would like to be able to tolerate more activities around the house, including her IADLs. Pt. reports feeling weak in her legs and back. Pt. is hopeful to get back to all of her activities without limitations and reduce her low back pain. Pain low back: Pain Intensity (Out of 10): 5 Pain Intensity Range: 10 Objective Objective: POSTURE: Pt. has slight flexed posture with increased thoracic kyphosis. PALPATION: Pt. has tenderness along B lumbar erector spinae. Pt. has pain with palpation throughout thoracic spine. NEURO: Pt. has normal sensation in BLEs. Pt. has normal DTR of BLEs. Pt. is able to rise on heels and toes without issues. ROM: LUMBAR SPINE: flexion mod loss increase NW, ext mod loss increase NW, SB mod loss bilat increase NW, rotation mod loss increase NW ludivina. MMT: PT. had 4/5 strength throughout BLEs, poor core strength, GAIT: PT. ambulates without AD, but has very methodical pattern, minimal arm swing. STAIRS: Pt. able to complete with reciprocal pattern with 2 HR with marked functional weakness in BLEs. Balance/Special Test Scores Oswestry Low Back Score: 36 Goals Goal 1:: LTG: Pt. to be I with HEP. Goal Time Frame: 4-6 Weeks Goal 2:: STG: Pt. to be able to sleep throughout the night without increase in symptoms. Goal Time Frame: 2-4 Weeks Goal 3:: LTG: Pt. to be able to stand and walk for 30 minutes with less than 0- 3/10 pain in lumbar spine. Goal Time Frame: 4-6 Weeks Goal 4:: LTG: Pt. to complete all household work and IADLs with 0-3/10 in lumbar spine. Goal Time Frame: 4-6 Weeks Goal 5:: LTG: Pt. to have increased core and B hip strength to at least 5-/5 throughout to allow for increased tolerance with all household work. Goal Time Frame: 4-6 Weeks Rehabilitation Potential Physical Therapy Diagnosis: Pt. has signs and symptoms consistent with T12 compression fracture with subsequent BLE weakness, core weakness. She has had a longer hospital stay and 2 compression fractures in the past year or so. She has a generalized weakness that I would like to work on in the aquatic setting. Rehabilitation Potential: Good Anticipated Interventions Patient/Client Instruction: Educate patient on: Condition, Plan of Care, Risk Factors and Benefits of Fitness Program For the Purpose of:: To foster healthy habits, To improve decision making, To facilitate caregiver knowledge, To improve self management and To prevent re- injury Therapeutic Exercise to Include: Power training, Endurance training, Balance training, Coordination, Body mechanics, Postural training, In an aquatic setting and Dynamic Lumbar Stabilization For the Purpose of:: To decrease pain, To increase ROM, To improve nutrient delivery to tissue, To increase oxygenation perfusion, To improve muscle performance and motor function, To improve gait and locomotor functions and To decrease soft tissue restriction Text: Thank you for the opportunity to evaluate your patient. For Medicare and Medicare HMO plans, please review the plan of care and approve it. It will need to be FAXED BACK to us at [phone] for Medicare purposes. For Medicare only, by signing this I certify the plan of care. Please let me know if there are questions or concerns regarding this plan of care. Physician Signature: Date:
--- NOTE | 2023-02-13 14:31 | HP.PTREVAL_ITS ---
Re-Evaluation Intro: Dr. Bari Guzman, DO, It has been my pleasure to treat DAVID BERG over the last 7 visits for T12 compression fracture. Please see the progress note below for an update on the physical therapy plan of care! Subjective Subjective: Pt. reports being more sore today, but also had to help more with her sister after being in a car wreck. Pt. is going to have a lumbar injection in the next few weeks. She reports having much better mid back pain, I can handle that pain,' but is still having increased LBP. Objective Objective/Function: Pt. reports being only able to stand for 10-15 minutes. It feels like my legs cant hold the rest of my body up. 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 Pt. reports feeling better with being partial flexed. ROM: LUMBAR SPINE: flexion min loss increase NW, ext mod/max loss increase NW, SB mod loss bilt increase NW, rotation min loss bilat increase NW L worse than R. Pt. has improved HS length 65deg R and 63deg on L, in 90/90 positioning. MMT: RLE: ankle 5/5 throughout; knee ext 4+/5, flexion 4/5; hip: flexion 4+/5, abd 4/5, ext 4/5. LLE; ankle 5/5 throughout; knee ext 4/5, flexion 4-/5; hip: flexion 4+/5, abd 4/5, ext 4/5. Core strength: Poor+ GAIT: pt. ambulates well, slight increase in lateral sway, but not too bad. David is improving, but is still having more pain than I would like her to have. She reports feeling pretty good while in pool, but increased pressure on her low back when getting out and with working at home. I would like her to continue with strengthening in aquatic setting, with eventually progressing out. Plan Plan Plan: Cont. with aquatic therapy, focus on core and LE strengthening. Balance/Gait/Functional tests Balance/Special Test Scores Oswestry Low Back Score: 23 Goals Goals Goal 1:: LTG: Pt. to be I with HEP. Goal Time Frame: 4-6 Weeks Goal Progress: Progressing Goal 2:: STG: Pt. to be able to sleep throughout the night without increase in symptoms. (Pt. does wake up if she rolls over) Goal Time Frame: 2-4 Weeks Goal Progress: Progressing Goal 3:: LTG: Pt. to be able to stand and walk for 30 minutes with less than 0- 3/10 pain in lumbar spine. Goal Time Frame: 4-6 Weeks Goal Progress: Progressing Goal 4:: LTG: Pt. to complete all household work and IADLs with 0-3/10 in lumbar spine. (She is able to complete but for only short periods of time.) Goal Time Frame: 4-6 Weeks Goal Progress: Progressing Goal 5:: LTG: Pt. to have increased core and B hip strength to at least 5-/5 throughout to allow for increased tolerance with all household work. Goal Time Frame: 4-6 Weeks Goal Progress: Progressing Anticipated Interventions Anticipated Interventions Patient/Client Instruction: Educate patient on: Condition, Plan of Care, Risk Factors and Benefits of Fitness Program For the Purpose of:: To foster healthy habits, To improve decision making, To facilitate caregiver knowledge, To improve self management and To prevent re- injury Therapeutic Exercise to Include: Power training, Endurance training, Balance training, Coordination, Body mechanics, Postural training, In an aquatic setting and Dynamic Lumbar Stabilization For the Purpose of:: To decrease pain, To increase ROM, To improve nutrient delivery to tissue, To increase oxygenation perfusion, To improve muscle performance and motor function, To improve gait and locomotor functions and To decrease soft tissue restriction Re-Evaluation Ending Re-evaluation ending: Please do not hesitate to contact me at [phone] by phone or if you have questions or concerns regarding this new plan of care! Sincerely, Mario Bang DPT
== END 2023-03-25 19:00 | disposition home or self-care (01) ==
LOC: PT 15:30
PROVIDERS: PCP Internal Medicine; Referring Provider Orthopaedic Surgery; Visit Provider Orthopaedic Surgery
DX: S22.080D Wedge compression fracture of T11-T12 vertebra, subsequent encounter for fracture with routine healing (principal); M54.6 Pain in thoracic spine; R53.1 Weakness
CPT/HCPCS: 97113; 97161; 97164

== ENCOUNTER → 2023-03-27 | Outpatient (CLI) | payer MEDICAID, SELFPAY | END | disposition home or self-care (01) | PROVIDERS: PCP Internal Medicine; Visit Provider Otolaryngology | DX: H92.10 Otorrhea, unspecified ear (principal) | CPT/HCPCS: 87070; 87075; 87077; 87186; 87205 ==

== ENCOUNTER → 2023-04-26 | Outpatient (CLI) | payer MEDICAID, SELFPAY | END | disposition home or self-care (01) | PROVIDERS: PCP Internal Medicine; Visit Provider Otolaryngology | DX: H92.12 Otorrhea, left ear (principal) | CPT/HCPCS: 87070; 87075; 87077; 87186; 87205 ==

== ENCOUNTER → 2023-08-15 | Outpatient (CLI) | payer MEDICAID, SELFPAY | END | disposition home or self-care (01) | LOC: LAB 15:01 | PROVIDERS: PCP Internal Medicine; Referring Provider Otolaryngology; Visit Provider Otolaryngology | DX: H92.10 Otorrhea, unspecified ear (principal) | CPT/HCPCS: 87070; 87075; 87205 ==

== ENCOUNTER → 2024-01-24 | Outpatient (CLI) | payer MEDICAID, SELFPAY ==
--- NOTE | 2024-01-24 13:48 | CT_ITS ---
STUDY: CT BRAIN WITHOUT CONTRAST REASON FOR EXAM: Female, 68 years old. Myoclonus RADIATION DOSAGE (If Supplied By Facility): CTDIvol = ( 47.06 ) mGy, DLP = ( 872.68 ) mGycm TECHNIQUE: Transaxial CT imaging of the brain was performed without administration of intravenous contrast material. Individualized dose optimization techniques were used for this CT. COMPARISON: Comparison is made with prior study of July 24, 2021. FINDINGS: Normal soft tissue structures. Normal calvarium. Limited study due to streak artifact caused from the patient''s right cochlear implant. Normal size ventricles and extra-axial spaces for the patient''s age. Normal white matter tracts of the cerebral hemispheres. Normal basal ganglia and thalami. Normal brainstem. Normal cerebellum. There is no intracranial hemorrhage. There are no findings of an acute ischemic infarction. Normal visualized paranasal sinuses. CT/Brain/Head without Contrast IMPRESSION: Normal unenhanced CT scan of the brain. Stable examination. Electronically Signed: Aiden Curtis MD at 15:35 EDT ,
--- NOTE | 2024-01-24 13:48 | CT_ITS ---
STUDY: CT CERVICAL SPINE WITHOUT CONTRAST REASON FOR EXAM: Female, 68 years old. Myoclonus RADIATION DOSAGE (If Supplied By Facility): CTDIvol = ( 16.72 ) mGy, DLP = ( 289.48 ) mGycm TECHNIQUE: High resolution transaxial imaging was performed without contrast material. Sagittal and coronal images were reconstructed. Individualized dose optimization techniques were used for this CT. COMPARISON: Comparison is made with prior study of July 24, 2021. FINDINGS: The patient appears to be status post right anoplasty. Normal craniovertebral junction. Normal anterior atlantoaxial articulation. Normal odontoid process. There is straightening of the normal cervical lordosis. Normal vertebral bodies and posterior osseous elements. C2-3: Mild degree of anterior spondylosis. C3-4: There is fusion of the C3-C4 vertebral bodies. C4-5: Fusion of the C4-C5 vertebral bodies. C5-6: Moderate degree of disc space narrowing and spondylosis at the C5-C6 level. C6-7: Mild degree of disc space narrowing. C7-T1: Normal endplates. Normal disc height and morphology. Normal central canal and intervertebral neuroforamina. Normal visualized soft tissue structures. CT/Spine Cervical without Contras IMPRESSION: Fusion of the C3-C4 and C4-C5 vertebral bodies. Electronically Signed: Aiden Curtis MD at 15:37 EDT ,
== END | disposition home or self-care (01) ==
LOC: CT 13:44
PROVIDERS: PCP Internal Medicine; Referring Provider Psychiatry & Neurology Neurology; Visit Provider Psychiatry & Neurology Neurology
DX: G25.3 Myoclonus (principal)
CPT/HCPCS: 70450; 72125

== ENCOUNTER 2024-03-23 07:38 | Emergency (ER) | payer MEDICAID, SELFPAY ==
[2024-03-23 07:40] VITALS: BP 151/75; PULSE 76; RESP 18; TEMP 36.8; O2SAT 94; BMI 20.9
[2024-03-23 08:05] VITALS: O2SAT 93
--- NOTE | 2024-03-23 08:13 | ED.VIS.DYS ---
HPI History of Present Illness Chief Complaint: Shortness of Breath Informant: patient Narrative Narrative: History of COPD remote tobacco productive cough progress over 9 days. No fevers. No chills or sweats. No vomiting diarrhea. No urinary symptoms. She went to urgent care today reported pulse ox 91% she was sent here. Occasional wheezing she is not a diabetic she has inhaler. Sick contacts from her sister. She used her inhaler a couple times over the past week. [facility] Medical History Uses feeding tube Chronic pancreatitis Severe protein-calorie malnutrition History of pneumonia Weakness Adult failure to thrive Marijuana use Restless legs Psoriasis Easy bruising Hepatitis Shortness of breath on exertion Nicotine dependence Chest pain Wears dentures Wears hearing aid Arthritis Anemia High cholesterol Back pain Injury of back Migraine headache Injury of head and neck Syncope Former smoker COPD (chronic obstructive pulmonary disease) Broken back Leg cramps History of echocardiogram History of stress test Cardiology follow-up encounter History of irregular heartbeat Hx of fracture of nose Personality disorder Osteoporosis Migraines DDD (degenerative disc disease), cervical Cochlear implant in place Bulimia Hepatitis C Calculus of gallbladder without cholecystitis without obstruction Abnormal findings on diagnostic imaging of liver and biliary tract Abnormal weight loss Steatorrhea, pancreatic Severe protein-calorie malnutrition Pancreatic duct stricture Idiopathic chronic pancreatitis Rheumatoid arthritis Anxiety Latent tuberculosis TIA (transient ischemic attack) Home Medications ?Medication ?Instructions ?Recorded ?Last Taken ?Type alprazolam 1 mg tablet (Xanax) 1 mg PO BID mood 12/16/13 01/04/22 History rizatriptan 10 mg tablet 10 mg PO PRN PRN Migraine Headache 05/06/17 01/03/22 History calcium 600 mg (as 1 tablet PO DAILY SUPPLEMENT 08/04/20 01/03/22 History carbonate)-vitamin D3 10 mcg (400 unit) tablet magnesium oxide 400 mg (241.3 mg 400 mg PO DAILY SUPPLEMENT 08/04/20 01/04/22 History magnesium) tablet abatacept 125 mg/mL subcutaneous 125 mg subcut FR Check with 07/28/21 3 Weeks Ago History syringe primary doctor ~01/01/22 albuterol sulfate 2.5 mg/3 mL 3 mg inhalation Q4H PRN PRN 08/11/21 3 Weeks Ago History (0.083 %) solution for nebulization Wheezing ~12/15/21 bacitracin zinc 500 unit/gram 1 applic topical DAILY PRN Skin 08/11/21 01/04/22 History topical ointment Cleansing betamethasone, augmented 0.05 % 1 applic topical DAILY SKIN 08/11/21 01/03/22 History topical ointment (Diprolene (augmented)) nicotine 10 mg inhalation 1 inh inhalation 4X/DAY PRN 08/11/21 01/21/22 History cartridge (Nicotrol) Smoking Cessation tretinoin 0.025 % topical gel 1 applic topical QHS PSORIASIS 08/11/21 1 Week Ago History (Retin-A) ~12/29/21 ergocalciferol (vitamin D2) 1,250 1,250 mcg PO FR SUPPLEMENT 01/05/22 12/22/21 History mcg (50,000 unit) capsule (Vitamin D2) quetiapine 200 mg tablet 100 mg PO QHS RLS 01/05/22 12/26/21 History ropinirole 1 mg tablet 1 mg PO QHS RLS 01/05/22 12/26/21 History cyanocobalamin (vitamin B-12) 500 1,000 mcg (2 x 500 mcg) PO 02/01/22 Unknown Rx mcg tablet BREAKFAST 30 days #60 tabs folic acid 1 mg tablet 1 mg PO BREAKFAST 30 days #30 tabs 02/01/22 Unknown Rx [id number] See Rx Instructions .Route 02/01/22 Unknown Rx 6,000-19,000-30,000 unit .COMPLEX 30 days #150 caps capsule,delayed rel (Creon) polyethylene glycol 3350 17 4 g PO DAILY 11/26/22 Unknown History gram/dose oral powder (Miralax) diclofenac potassium 50 mg tablet 50 mg PO TID PRN pain #90 tabs 12/25/22 Unknown Rx azithromycin 250 mg tablet 250 mg PO DAILY #4 TABLETS 03/23/24 Unknown Rx prednisone 20 mg tablet 60 mg (3 x 20 mg) PO DAILY #12 03/23/24 Unknown Rx TABLETS Allergy/AdvReac Type Severity Reaction Status Date / Time bupropion Allergy Other Verified 03/27/24 16:45 codeine Allergy Hives Verified 03/27/24 16:45 Environmental Allergies: Allergy Hives Verified 03/27/24 16:45 Uncoded (pine) gabapentin Allergy Other Verified 03/27/24 16:45 oxaprozin (From Daypro) Allergy Hives Verified 03/27/24 16:45 oxybutynin Allergy Unknown Verified 03/27/24 16:45 oxycodone Allergy Itching Verified 03/27/24 16:45 pentazocine (From Talwin) Allergy Itching Verified 03/27/24 16:45 pentazocine lactate (From Allergy Itching Verified 03/27/24 16:45 Talwin) propoxyphene HCl (From Allergy Hives Verified 03/27/24 16:45 Darvon) propoxyphene napsylate (From Allergy Hives Verified 03/27/24 16:45 Darvocet-N 100) rofecoxib (From Vioxx) Allergy Rash Verified 03/27/24 16:45 tramadol HCl (From Ultram) Allergy Upset Verified 03/27/24 16:45 Stomach cyclobenzaprine HCl (From AdvReac Upset Verified 03/27/24 16:45 Flexeril) Stomach hydrocodone AdvReac Other Verified 03/27/24 16:45 venlafaxine HCl (From AdvReac Upset Verified 03/27/24 16:45 Effexor) Stomach Family History Mother CVA (cerebral vascular accident) Hypertension Father Cancer Diabetes Sister Thyroid disorder Surgical History History of ERCP History of kyphoplasty History of nasal surgery History of repair of cleft lip History of colonoscopy History of rotator cuff surgery History of mandibular surgery Hx of LASIK Hx of neck surgery History of back surgery Hx of tubal ligation History of tracheostomy History of bladder surgery H/O section History of cochlear implant Hx of cholecystectomy Social History Smoking Status: Current every day smoker tobacco type: cigarettes alcohol intake: never ROS ROS ED Constitutional Constitutional ED: Denies chills, fever(s) or sweats Eyes Eyes: Denies change in vision ENT ENT ED: Denies dysphagia or sore throat Cardiovascular Cardiovascular: Denies chest pain, leg edema, palpitations or racing heartbeat Respiratory/Chest Respiratory/Chest: Reports cough and dyspnea; Denies dyspnea on exertion Gastrointestinal Gastrointestinal: Denies abdominal pain, diarrhea, nausea or vomiting Genitourinary Genitourinary ED: Denies dysuria, hematuria or urinary frequency Musculoskeletal Musculoskeletal: Denies back pain, extremity pain or neck pain Integumentary Denies rash or wounds Neurologic Neurologic: Denies headache(s), paresthesias or weakness EXAM Physical Exam Const Vital Signs: 03/23/24 07:40 03/23/24 08:05 03/23/24 09:01 Temperature 98.3 F Temperature Source Oral Pulse Rate 76 67 Respiratory Rate 18 16 Respiratory Pattern Tachypnea Normal Blood Pressure 151/75 H Blood Pressure Mean 100 Pulse Ox 94 Oxygen Delivery Method Room Air Room Air Positive well nourished and well developed Constitutional Narrative: Nontoxic General Appearance ED: well developed and NAD HEENT Reports moist mucous membranes normocephalic and atraumatic Eyes EOMs intact bilaterally and conjunctivae normal General Eye ED: Yes normal appearance of both eyes Neck no lymphadenopathy and supple General: Negative for tenderness Chest Wall Chest: Negative for tenderness Resp Resp Narrative: Mild coarse sounds lower lobes with expiratory wheeze. No distress. Effort and Inspection: Negative for respiratory distress Cardio regular rate, regular rhythm and no murmurs Peripheral Pulses: pulses 2+ throughout GI non-tender Palpation: Negative for guarding or rebound tenderness present Extremity normal to inspection General Extremety ED: Negative for edema or tenderness General Extremity: Negative for edema Neuro oriented x3 and no sensory deficits noted Sensorium / Orientation: awake and alert Skin no rashes or lesions noted and no wounds MDM MDM MDM Narrative Medical decision making narrative: Interventions / MDM: Differential diagnosis: COPD exacerbation, bronchitis Diagnosis considered but do not suspect: Pneumonia however chest x-ray negative. My EKG interpretation: Sinus rate of 71, no ST changes. Isolated T wave version aVL nonspecific. Imaging independently reviewed and interpreted by myself: 2 view chest x-ray: No acute process. External documents reviewed: N/A Test considered but not ordered:N/A ED course: Patient 94% on arrival mild wheezing exam history of COPD. Will give aerosol treatments. EKG sinus rhythm nonspecific findings. Two-view chest x-ray she is ordered for prednisone and Zithromax with her COPD history. Will reevaluate. 911: Wheezing improved, chest x-ray negative. She is clinically feeling better. Will ambulate with a pulse ox. Patient ambulated pulse ox 94%. She is continued on antibiotics and steroids. Outpatient follow-up with her doctor. Return precautions. All questions were answered. Re-evaluation: stable Disposition discussed with patient/family/significant other: Patient per radiology atelectasis at the bases. No infiltrates. Case discussed with consulting clinician: N/A This note was generated with [employer] dictation software. It may contain incorrect words, spelling, and punctuation that were not noted in checking the note before signing. Radiography Diagnostic Testing: Clinical Impression(s) from Imaging Studies Chest X-Ray 03/23/24 08:45 IMPRESSION: Hyperinflation. Increased markings at the lung bases with blunting of both costophrenic angles suggests some bibasilar atelectasis. Electronically Signed: Aiden Curtis MD at 9:19 EST , Discharge Plan Triage Chief Complaint: Shortness of Breath ED Provider: Kevon No Dx/Rx/DC Orders Clinical Impression: COPD exacerbation, Bronchitis, Hypoxia Instructions: Diagnosing COPD, ED Upper Resp Infec Abx Tx Prescriptions: New azithromycin 250 mg tablet 250 mg PO DAILY Qty: 4 0RF prednisone 20 mg tablet 60 mg PO DAILY Qty: 12 0RF No Action abatacept 125 mg/mL syringe 125 mg subcut FR polyethylene glycol 3350 [Miralax] 17 gram/dose powder 4 g PO DAILY alprazolam [Xanax] 1 MG tablet 1 mg PO BID rizatriptan 10 tablet 10 mg PO PRN PRN (Reason: Migraine Headache) Patient Comments: magnesium oxide 400 MG tablet 400 mg PO DAILY calcium carbonate-vitamin D3 1 EACH tablet 1 tablet PO DAILY albuterol sulfate 2.5 mg /3 mL (0.083 %) solution for nebulization 3 mg inhalation Q4H PRN PRN (Reason: Wheezing) betamethasone, augmented [Diprolene (augmented)] 0.05 % Ointment 1 applic TOPICAL DAILY bacitracin zinc 500 unit/gram Ointment 1 applic TOPICAL DAILY PRN (Reason: Skin Cleansing) Nicotrol 10 mg Cartridge 1 inh INHALATION 4X/DAY PRN (Reason: Smoking Cessation) tretinoin [Retin-A] 0.025 % Gel 1 applic TOPICAL QHS ropinirole 1 mg tablet 1 mg PO QHS Patient Comments: take 1 tablet by mouth at bedtime quetiapine 200 mg tablet 100 mg PO QHS ergocalciferol (vitamin D2) [Vitamin D2] 1,250 mcg (50,000 unit) capsule 1,250 mcg PO FR Creon 6,000-19,000 -30,000 unit Capsule,Delayed Release(Dr/Ec) See Rx Instructions .ROUTE .COMPLEX 30 Days Qty: 150 0RF Rx Instructions: Take up to 5 caps with meals and snacks cyanocobalamin (vitamin B-12) 500 mcg Tablet 1,000 mcg PO BREAKFAST 30 Days Qty: 60 0RF folic acid 1 mg Tablet 1 mg PO BREAKFAST 30 Days Qty: 30 0RF diclofenac potassium 50 mg tablet 50 mg PO TID PRN (Reason: pain) Qty: 90 0RF Primary Care Provider: Sanam Alex Referrals: Sanam Alex MD [Primary Care Provider] - Activity Restrictions/Additional Instructions: Your chest x-ray negative for pneumonia. With history of COPD history of cough and sputum. You were started on Zithromax and prednisone. With walking your oxygen dropped down to 85%. Recommendations for you to stay in the hospital secondary to this. Take antibiotics and steroids as prescribed. We develop worsening symptoms return immediately to the ED for reevaluation. If you change your mind and are able to take care of your home situation, return to ED for plan admission and blood work. Print Language: Czech Disposition Disposition: Home, Self Care Discharge Date/Time: 03/23/24 10:08
--- NOTE | 2024-03-23 08:15 | EKG12_ITS ---
Test Reason : SOB Blood Pressure : */* mmHG Vent. Rate : 71 BPM Atrial Rate : 71 BPM P-R Int : 176 ms QRS Dur : 96 ms QT Int : 396 ms P-R-T Axes : 69 57 72 degrees QTcB Int : 430 ms Normal sinus rhythm Septal infarct , age undetermined Abnormal ECG Confirmed by JOSIE KAISER, CHARLOTTE ([id number]), editor map MARIANO GARCIA ([id number]) on 03/24/2024 8:14:21 AM Referred By: Confirmed By: CHARLOTTE GALINDO MD
[2024-03-23 08:45] VITALS: BP 128/74; PULSE 78; RESP 16; TEMP 36.6; O2SAT 89
--- NOTE | 2024-03-23 08:45 | RAD_ITS ---
STUDY: X-RAY CHEST REASON FOR EXAM: Female, 68 years old. One week history of cough. History of COPD. TECHNIQUE: PA and lateral views of the chest. COMPARISON: Comparison is made with prior study dated January 22, 2022. FINDINGS: EKG electrodes are seen. There is hyperinflation of the lungs consistent with chronic obstructive lung disease (COPD). Mild degree of increased linear markings at the lung bases suggestive of bibasilar atelectasis. There is blunting of both costophrenic angles. Normal size heart. Normal mediastinum and blair. Normal visualized pulmonary arteries. There is atherosclerotic calcification of the aortic arch with tortuosity. Prior vertebroplasty of the T12 and L1 vertebrae. Normal visualized ribs, clavicles, and shoulders. There is no demonstrated abnormality of the visualized soft tissue structures of the upper abdomen. RAD/Chest PA and Lateral IMPRESSION: Hyperinflation. Increased markings at the lung bases with blunting of both costophrenic angles suggests some bibasilar atelectasis. Electronically Signed: Aiden Curtis MD at 9:19 EST ,
[2024-03-23] MEDS: Ipratropium/Albuterol Sulfate 3 ML AMPUL.NEB INHALATION (09:00)
[2024-03-23 09:01] VITALS: PULSE 67; RESP 16
[2024-03-23] MEDS: predniSONE 20 MG Tablet 60 MG PO (09:21)
[2024-03-23] MEDS: Azithromycin 250 MG Tablet 500 MG PO (09:22)
[2024-03-23 09:32] VITALS: O2SAT 92
== END 2024-03-23 10:08 | disposition home or self-care (01) ==
PROVIDERS: Emergency Provider Emergency Medicine; PCP Internal Medicine; Visit Provider Emergency Medicine
DX: J44.1 Chronic obstructive pulmonary disease with (acute) exacerbation (principal); E78.00 Pure hypercholesterolemia, unspecified; J40 Bronchitis, not specified as acute or chronic; R09.02 Hypoxemia; B19.20 Unspecified viral hepatitis C without hepatic coma; Z86.73 Personal history of transient ischemic attack (TIA), and cerebral infarction without residual deficits; F41.9 Anxiety disorder, unspecified; Z79.899 Other long term (current) drug therapy; G43.909 Migraine, unspecified, not intractable, without status migrainosus; G25.81 Restless legs syndrome; Z98.51 Tubal ligation status; Z90.49 Acquired absence of other specified parts of digestive tract; F17.210 Nicotine dependence, cigarettes, uncomplicated
CPT/HCPCS: 71046; 93005; 94640; 99283

== ENCOUNTER 2024-03-27 16:44 | Emergency (ER) | payer MEDICAID, SELFPAY ==
[2024-03-27 16:45] VITALS: BP 159/91; PULSE 76; RESP 18; TEMP 36.2; O2SAT 99; BMI 20.5
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
[2024-03-27] MEDS: HYDROmorphone 2 MG TABLET PO (18:00)
[2024-03-27 18:42] VITALS: BP 159/91; PULSE 76; RESP 18; TEMP 36.2; O2SAT 99
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
== END 2024-03-27 18:52 | disposition home or self-care (01) ==
PROVIDERS: Emergency Provider Emergency Medicine; PCP Internal Medicine; Visit Provider Emergency Medicine
DX: S16.1XXA Strain of muscle, fascia and tendon at neck level, initial encounter (principal); J44.9 Chronic obstructive pulmonary disease, unspecified; E78.00 Pure hypercholesterolemia, unspecified; V43.62XA Car passenger injured in collision with other type car in traffic accident, initial encounter; Z86.73 Personal history of transient ischemic attack (TIA), and cerebral infarction without residual deficits; Z86.19 Personal history of other infectious and parasitic diseases; F41.9 Anxiety disorder, unspecified; Z79.899 Other long term (current) drug therapy; G43.909 Migraine, unspecified, not intractable, without status migrainosus; G25.81 Restless legs syndrome; Z98.51 Tubal ligation status; Z90.49 Acquired absence of other specified parts of digestive tract; F17.210 Nicotine dependence, cigarettes, uncomplicated
CPT/HCPCS: 70450; 72040; 72125; 73590; 99282

== ENCOUNTER → 2024-05-07 | Outpatient (CLI) | payer MEDICAID, SELFPAY | END | disposition home or self-care (01) | LOC: LABSPEC 15:11 | PROVIDERS: PCP Internal Medicine; Referring Provider Otolaryngology; Visit Provider Otolaryngology | DX: H92.10 Otorrhea, unspecified ear (principal) | CPT/HCPCS: 87070; 87077; 87186; 87205 ==

== ENCOUNTER 2024-06-11 13:02 | Emergency (ER) | payer MEDICAID, SELFPAY ==
[2024-06-11 13:03] VITALS: BP 141/93; PULSE 88; RESP 16; TEMP 36.4; O2SAT 96
--- NOTE | 2024-06-11 13:50 | ED.VIS.GI ---
HPI HPI - GI History of Present Illness Chief Complaint: Abd Pain Narrative Narrative: 68-year-old female, hard of hearing but can read lips, presents with constipation and abdominal pain that she has had for the last 5 days. She states she tried to take a bowel prep, and still has not had a bowel movement. She is taking Dulcolax and stool softeners as well. She states that yesterday she had 1 episode of vomiting. She has epigastric and diffuse abdominal pain, and states she had small liquid stool yesterday. No fevers or chills. No exacerbating or alleviating factors. She does state that she has not had any prior abdominal surgeries. [facility] Medical History Uses feeding tube Chronic pancreatitis Severe protein-calorie malnutrition History of pneumonia Weakness Adult failure to thrive Marijuana use Restless legs Psoriasis Easy bruising Hepatitis Shortness of breath on exertion Nicotine dependence Chest pain Wears dentures Wears hearing aid Arthritis Anemia High cholesterol Back pain Injury of back Migraine headache Injury of head and neck Syncope Former smoker COPD (chronic obstructive pulmonary disease) Broken back Leg cramps History of echocardiogram History of stress test Cardiology follow-up encounter History of irregular heartbeat Hx of fracture of nose Personality disorder Osteoporosis Migraines DDD (degenerative disc disease), cervical Cochlear implant in place Bulimia Hepatitis C Calculus of gallbladder without cholecystitis without obstruction Abnormal findings on diagnostic imaging of liver and biliary tract Abnormal weight loss Steatorrhea, pancreatic Severe protein-calorie malnutrition Pancreatic duct stricture Idiopathic chronic pancreatitis Rheumatoid arthritis Anxiety Latent tuberculosis TIA (transient ischemic attack) Home Medications ?Medication ?Instructions ?Recorded ?Last Taken ?Type alprazolam 1 mg tablet (Xanax) 1 mg PO BID mood 12/16/13 01/04/22 History Held on 02/01/22. Instructions: Resume on 02/14/22. Please discuss with your care physician for his resuming this medication rizatriptan 10 mg tablet 10 mg PO PRN PRN Migraine Headache 05/06/17 01/03/22 History magnesium oxide 400 mg (241.3 mg 400 mg PO DAILY SUPPLEMENT 08/04/20 01/04/22 History magnesium) tablet abatacept 125 mg/mL subcutaneous 125 mg subcut FR Check with 07/28/21 3 Weeks Ago History syringe primary doctor ~01/01/22 Held on 02/01/22. Instructions: Resume on 02/14/22. You are on antibiotics for an infection that he had in your abdomen, this medication has been held. Please discuss with your primary care physician to determine when it is appropriate to resume this medication albuterol sulfate 2.5 mg/3 mL 3 mg inhalation Q4H PRN PRN 08/11/21 3 Weeks Ago History (0.083 %) solution for nebulization Wheezing ~12/15/21 nicotine 10 mg inhalation 1 inh inhalation 4X/DAY PRN 08/11/21 01/21/22 History cartridge (Nicotrol) Smoking Cessation ergocalciferol (vitamin D2) 1,250 1,250 mcg PO FR SUPPLEMENT 01/05/22 12/22/21 History mcg (50,000 unit) capsule (Vitamin D2) quetiapine 200 mg tablet 100 mg PO QHS RLS 01/05/22 12/26/21 History ropinirole 1 mg tablet 1 mg PO QHS RLS 01/05/22 12/26/21 History cyanocobalamin (vitamin B-12) 500 1,000 mcg (2 x 500 mcg) PO 02/01/22 Unknown Rx mcg tablet BREAKFAST 30 days #60 tabs folic acid 1 mg tablet 1 mg PO BREAKFAST 30 days #30 tabs 02/01/22 Unknown Rx [id number] See Rx Instructions .Route 02/01/22 Unknown Rx 6,000-19,000-30,000 unit .COMPLEX 30 days #150 caps capsule,delayed rel (Creon) polyethylene glycol 3350 17 4 g PO DAILY 11/26/22 Unknown History gram/dose oral powder (Miralax) prednisone 20 mg tablet 60 mg (3 x 20 mg) PO DAILY #12 03/23/24 Unknown Rx TABLETS amoxicillin 875 mg tablet 875 mg PO BID 04/23/24 Unknown History apremilast 30 mg tablet (Otezla) 30 mg PO BID 04/23/24 Unknown History budesonide-formoterol HFA 80 inhalation 04/23/24 Unknown History mcg-4.5 mcg/actuation aerosol inhaler (Symbicort) ciprofloxacin HCl 250 mg tablet 500 mg PO BID 04/23/24 Unknown History dicyclomine 10 mg capsule 10 mg PO .QID PRN 04/23/24 Unknown History omega-3 acid ethyl esters 1 gram 1 cap PO BID 04/23/24 Unknown History capsule ciprofloxacin 500 mg/5 mL oral 500 mg (5 mL) PO BID 10 days #100 06/11/24 Unknown Rx suspension (Cipro) mL metronidazole 500 mg tablet 500 mg PO TID 10 days #30 tabs 06/11/24 Unknown Rx Allergy/AdvReac Type Severity Reaction Status Date / Time bupropion Allergy Other Verified 04/23/24 14:40 codeine Allergy Hives Verified 04/23/24 14:40 Environmental Allergies: Allergy Hives Verified 04/23/24 14:40 Uncoded (pine) gabapentin Allergy Other Verified 04/23/24 14:40 oxaprozin (From Daypro) Allergy Hives Verified 04/23/24 14:40 oxybutynin Allergy Unknown Verified 04/23/24 14:40 oxycodone Allergy Itching Verified 04/23/24 14:40 pentazocine (From Talwin) Allergy Itching Verified 04/23/24 14:40 pentazocine lactate (From Allergy Itching Verified 04/23/24 14:40 Talwin) propoxyphene HCl (From Allergy Hives Verified 04/23/24 14:40 Darvon) propoxyphene napsylate (From Allergy Hives Verified 04/23/24 14:40 Darvocet-N 100) rofecoxib (From Vioxx) Allergy Rash Verified 04/23/24 14:40 tramadol HCl (From Ultram) Allergy Upset Verified 04/23/24 14:40 Stomach cyclobenzaprine HCl (From AdvReac Upset Verified 04/23/24 14:40 Flexeril) Stomach hydrocodone AdvReac Other Verified 04/23/24 14:40 venlafaxine HCl (From AdvReac Upset Verified 04/23/24 14:40 Effexor) Stomach Family History Mother CVA (cerebral vascular accident) Hypertension Father Cancer Diabetes Sister Thyroid disorder Surgical History History of ERCP History of kyphoplasty History of nasal surgery History of repair of cleft lip History of colonoscopy History of rotator cuff surgery History of mandibular surgery Hx of LASIK Hx of neck surgery History of back surgery Hx of tubal ligation History of tracheostomy History of bladder surgery H/O section History of cochlear implant Hx of cholecystectomy Social History Smoking Status: Current every day smoker tobacco type: cigarettes alcohol intake: never ROS ROS ED ROS Narrative Review of systems positive for constipation. Positive abdominal pain. 1 episode of nausea and vomiting within the last 24 hours. No fevers or chills. No exacerbating or alleviating factors. EXAM Physical Exam Narrative Exam Narrative: Afebrile. Vital signs noted. Nontoxic-appearing. Cardiovascular examination reveals a regular rate and rhythm. Lungs are clear to auscultation bilaterally. The abdomen is soft without guarding or rebound with tenderness mainly in the epigastrium and in the bilateral lower quadrants, then diffusely. Positive bowel sounds. Neurological examination shows her to be hard of hearing but she can read lips and is interactive and answers questions appropriately. Moves all extremities. Const Vital Signs: 06/11/24 13:03 06/11/24 15:02 Temperature 97.5 F L Temperature Source Temporal Pulse Rate 88 88 Respiratory Rate 16 24 H Blood Pressure 141/93 H 118/74 Blood Pressure Mean 109 88 Pulse Ox 96 96 Oxygen Delivery Method Room Air Room Air MDM MDM MDM Narrative Medical decision making narrative: Differential diagnosis includes but not limited to fecal impaction versus partial small bowel obstruction versus diverticulitis versus pancreatitis. Comprehensive workup was pursued. She states that she has been tolerating p.o. fluids but she will be bolused normal saline 1 L intravenously. I do feel CT imaging is indicated as well. I reviewed her laboratory work and she has normal white count of 10.7 with hemoglobin 14.7, hematocrit 44.4, platelet count normal at 279. CMP noted to have AST slightly elevated at 34 which I think is nonspecific, otherwise unremarkable. Urinalysis obtained and reviewed and is negative for infection. I do not feel antibiotics are indicated. CT of the abdomen and pelvis was obtained. Patient was reassessed and was still having pain. She was administered morphine which she has received in the past. She has multiple allergies to medications. I reviewed the radiology report of the CT of the abdomen and pelvis and it is consistent with colitis of the proximal to mid sigmoid colon with mural wall thickening. There is no evidence of obstruction or fecal impaction. In discussion with the patient, she does not want admission to the hospital and wants to go home. She was given her first dose of ciprofloxacin and Flagyl and prescription written for the next 10 days. She was told to return with increased pain, fever, new or worsening symptoms, otherwise follow-up with her primary care provider. Once again, I did offer her admission for pain control as well, and she declines preferring outpatient trial. As she is not febrile and does not have a white count here, I do feel that she merits outpatient trial. Disposition is discharged home in stable condition. History & Record Review Discussion w/independent historian: Patient Lab Data Attestation: I reviewed the patient's lab results. Labs: Laboratory Results - last 24 hr 06/11/24 06/11/24 06/11/24 13:58 13:58 14:15 WBC Cancelled 10.7 Corrected WBC Cancelled RBC Cancelled 4.53 Hgb Cancelled 14.7 Hct Cancelled 44.4 MCV Cancelled 98.0 MCH Cancelled 32.5 H MCHC Cancelled 33.1 RDW Std Deviation Cancelled 48.6 H RDW Coeff of Fidelina Cancelled 13.4 Plt Count Cancelled 279 MPV Cancelled 9.9 Immature Gran % (Auto) Cancelled 0.300 Neut % (Auto) Cancelled 52.4 Lymph % (Auto) Cancelled 38.4 [place] % (Auto) Cancelled 6.8 Eos % (Auto) Cancelled 1.5 Baso % (Auto) Cancelled 0.6 Absolute Neuts (auto) Cancelled 5.6 Absolute Lymphs (auto) Cancelled 4.11 Total Counted Cancelled Neutrophils % (Manual) Cancelled Band Neutrophils % Cancelled Lymphocytes % (Manual) Cancelled Monocytes % (Manual) Cancelled Eosinophils % (Manual) Cancelled Basophils % (Manual) Cancelled Metamyelocytes % Cancelled Myelocytes % Cancelled Promyelocytes % Cancelled Blast Cells % Cancelled Plasma Cell % (Manual) Cancelled Other Cells % Cancelled Nucleated RBC % Cancelled 0 Nucleated RBCs/100 WBC Cancelled Differential Comment Cancelled Diff Path Review Cancelled Hypersegmented Neuts Cancelled Atypical Lymphocytes Cancelled Reactive Lymphocytes Cancelled Smudge Cells Cancelled Toxic Granulation Cancelled Toxic Vacuolation Cancelled Dohle Bodies Cancelled Nathan Rods Cancelled Platelet Estimate Cancelled Plt Morphology Comment Cancelled RBC Morphology Cancelled Cancelled Polychromasia Cancelled Hypochromasia Cancelled Basophilic Stippling Cancelled Anisocytosis Cancelled Microcytosis Cancelled Macrocytosis Cancelled Spherocytes Cancelled Sickle Cells Cancelled Target Cells Cancelled Tear Drop Cells Cancelled Ovalocytes Cancelled Stomatocytes Cancelled Echeverria-[place] Bodies Cancelled Luis Cells Cancelled Bite Cells Cancelled Crenated Cell Cancelled Acanthocytes (Spur) Cancelled Rouleaux Cancelled Schistocytes Cancelled Sodium 135 Potassium 4.2 Chloride Direct 97 Carbon Dioxide 25.4 Anion Gap 12 BUN 15 Creatinine 1.0 Est GFR (MDRD) Non-Af 60 BUN/Creatinine Ratio 15.0 Glucose 90 Calcium 9.7 Total Bilirubin 0.32 AST 34 H ALT 12 Alkaline Phosphatase 68 Total Protein 6.9 Albumin 4.1 Globulin 2.8 Albumin/Globulin Ratio 1.4 Lipase 37 Urine Color Urine Clarity Urine pH Ur Specific [place] Urine Protein Urine Glucose (UA) Urine Ketones Urine Occult Blood Urine Nitrite Urine Bilirubin Urine Urobilinogen Ur Leukocyte Esterase Urine RBC Urine WBC Ur Squamous Epith Cells Urine Bacteria Hyaline Casts Urine Mucus 06/11/24 15:05 WBC Corrected WBC RBC Hgb Hct MCV MCH MCHC RDW Std Deviation RDW Coeff of Fidelina Plt Count MPV Immature Gran % (Auto) Neut % (Auto) Lymph % (Auto) [place] % (Auto) Eos % (Auto) Baso % (Auto) Absolute Neuts (auto) Absolute Lymphs (auto) Total Counted Neutrophils % (Manual) Band Neutrophils % Lymphocytes % (Manual) Monocytes % (Manual) Eosinophils % (Manual) Basophils % (Manual) Metamyelocytes % Myelocytes % Promyelocytes % Blast Cells % Plasma Cell % (Manual) Other Cells % Nucleated RBC % Nucleated RBCs/100 WBC Differential Comment Diff Path Review Hypersegmented Neuts Atypical Lymphocytes Reactive Lymphocytes Smudge Cells Toxic Granulation Toxic Vacuolation Dohle Bodies Nathan Rods Platelet Estimate Plt Morphology Comment RBC Morphology Polychromasia Hypochromasia Basophilic Stippling Anisocytosis Microcytosis Macrocytosis Spherocytes Sickle Cells Target Cells Tear Drop Cells Ovalocytes Stomatocytes Echeverria-[place] Bodies Luis Cells Bite Cells Crenated Cell Acanthocytes (Spur) Rouleaux Schistocytes Sodium Potassium Chloride Direct Carbon Dioxide Anion Gap BUN Creatinine Est GFR (MDRD) Non-Af BUN/Creatinine Ratio Glucose Calcium Total Bilirubin AST ALT Alkaline Phosphatase Total Protein Albumin Globulin Albumin/Globulin Ratio Lipase Urine Color Yellow Urine Clarity Clear Urine pH 6.0 Ur Specific [place] 1.015 Urine Protein 15 H Urine Glucose (UA) Normal Urine Ketones Negative Urine Occult Blood Negative Urine Nitrite Negative Urine Bilirubin Negative Urine Urobilinogen Normal Ur Leukocyte Esterase 25 H Urine RBC 0-5 SEEN Urine WBC 0-5 SEEN Ur Squamous Epith Cells 0 SEEN Urine Bacteria 0 SEEN Hyaline Casts 0-5 SEEN Urine Mucus 0 SEEN Radiography Diagnostic Testing: Clinical Impression(s) from Imaging Studies Abdomen/Pelvis CT 06/11/24 15:19 IMPRESSION: Mild/moderate segmental wall thickening of the proximal and mid sigmoid colon likely related to infectious/inflammatory colitis. No obstruction. One or more dose reduction techniques were used (e.g., Automated exposure control, adjustment of the mA and/or kV according to patient size, use of iterative reconstruction technique). [facility] T[facility] Chief Complaint: Abd Pain ED Provider: Jose Armando Kirkpatrick Dx/Rx/DC Orders Clinical Impression: Colitis, Abdominal pain Instructions: ED Understanding Colitis Prescriptions: New ciprofloxacin [Cipro] 500 mg/5 mL suspension,microcapsule recon 500 mg PO BID 10 Days Qty: 100 0RF metronidazole 500 mg tablet 500 mg PO TID 10 Days Qty: 30 0RF No Action abatacept 125 mg/mL syringe 125 mg subcut FR polyethylene glycol 3350 [Miralax] 17 gram/dose powder 4 g PO DAILY amoxicillin 875 mg tablet 875 mg PO BID budesonide-formoterol [Symbicort] 80-4.5 mcg/actuation HFA aerosol inhaler inhalation dicyclomine 10 mg capsule 10 mg PO .QID PRN omega-3 acid ethyl esters 1 gram capsule 1 cap PO BID Otezla 30 mg tablet 30 mg PO BID ciprofloxacin HCl 250 mg tablet 500 mg PO BID alprazolam [Xanax] 1 MG tablet 1 mg PO BID rizatriptan 10 tablet 10 mg PO PRN PRN (Reason: Migraine Headache) Patient Comments: magnesium oxide 400 MG tablet 400 mg PO DAILY albuterol sulfate 2.5 mg /3 mL (0.083 %) solution for nebulization 3 mg inhalation Q4H PRN PRN (Reason: Wheezing) Nicotrol 10 mg Cartridge 1 inh INHALATION 4X/DAY PRN (Reason: Smoking Cessation) ropinirole 1 mg tablet 1 mg PO QHS Patient Comments: take 1 tablet by mouth at bedtime quetiapine 200 mg tablet 100 mg PO QHS ergocalciferol (vitamin D2) [Vitamin D2] 1,250 mcg (50,000 unit) capsule 1,250 mcg PO FR Creon 6,000-19,000 -30,000 unit Capsule,Delayed Release(Dr/Ec) See Rx Instructions .ROUTE .COMPLEX 30 Days Qty: 150 0RF Rx Instructions: Take up to 5 caps with meals and snacks cyanocobalamin (vitamin B-12) 500 mcg Tablet 1,000 mcg PO BREAKFAST 30 Days Qty: 60 0RF folic acid 1 mg Tablet 1 mg PO BREAKFAST 30 Days Qty: 30 0RF prednisone 20 mg tablet 60 mg PO DAILY Qty: 12 0RF Primary Care Provider: Sanam Alex Referrals: Sanam Alex MD [Primary Care Provider] - 3-5 Days if not improving Activity Restrictions/Additional Instructions: Take antibiotics as directed. Return to the emergency department with sustained high fever, increased pain, new or worsening symptoms. Print Language: Swedish Disposition Disposition: Home, Self Care
[2024-06-11] MEDS: 0.9% Normal Saline (1000mL) 1,000 ML 999 ML IV (14:03)
[2024-06-11] MEDS: Ondansetron 4 MG/2 ML Vial IV ×2 (14:04→16:27)
[2024-06-11 14:22] LABS: Absolute Lymphocyte Count 4.11 X10^3/uL (0.83-4.51); Absolute Neutrophil Count 5.6 X10^3/uL (2.0-7.7); Basophil# 0.06 X10^3/uL; Basophil% 0.6 % (0-1); Eosinophil# 0.16 X10^3/uL; Eosinophils% 1.5 % (0-5); Hematocrit 44.4 % (37-47); Hemoglobin 14.7 g/dL (12.0-15.0); Lymphocyte # 4.11 X10^3/ul (0.83-4.51); Lymphocyte % 38.4 % (19-41); Mean Corp Hgb Conc 33.1 g/dL (32-36); Mean Corpuscular Hgb 32.5 pg (27.0-32.0); Mean Platelet Vol. 9.9 fl (6.2-12.0); Monocyte# 0.73 X10^3/uL; Monocyte% 6.8 % (0-10); NRBC Flagged by Analyzer 0 % (0-5); Neutrophil # 5.62 X10^3/uL (2.7-7.7); Neutrophil % 52.4 % (47-70); Platelet Count 279 K/mm3 (150-450); RBC Distribution Width CV 13.4 % (11.6-14.6); RBC Distribution Width SD 48.6 fl (35.1-43.9); Red Blood Count 4.53 M/mm3 (4.2-5.4); White Blood Count 10.7 K/mm3 (4.4-11.0)
[2024-06-11 14:24] LABS: Lipase 37 U/L (13-75)
[2024-06-11 14:50] LABS: ALB/GLOB Ratio 1.4 RATIO (0.9-2.4); AST(SGOT) 34 U/L (<=31); Alanine Aminotransfer ALT/SGPT 12 U/L (<=34); Albumin, Serum 4.1 g/dL (3.4-4.8); Alkaline Phosphatase 68 U/L (35-104); Anion Gap 12 (5-15); BUN 15 mg/dL (4-19); Calcium 9.7 mg/dL (7.6-11.0); Carbon Dioxide 25.4 mmol/L (22.0-29.0); Chloride 97 mmol/L (96-108); EST Glomerular Filtration Rate 60 (>60); Globulin 2.8 g/dL (2.2-4.2); Glucose 90 mg/dL (70-99); Potassium 4.2 mmol/L (3.3-5.1); Protein, Total 6.9 g/dL (5.9-8.4); Sodium Level 135 mmol/L (133-145); Total Bilirubin 0.32 mg/dL (0.00-1.30)
[2024-06-11 15:02] VITALS: BP 118/74; PULSE 88; RESP 24; O2SAT 96
[2024-06-11 15:13] LABS: Bacteria 0 SEEN /hpf (None Seen); Mucous, Urine 0 SEEN /hpf (<or=2+); Squamous Epithelial Cells - UA 0 SEEN /hpf (5-10)
[2024-06-11 15:15] LABS: Color, Urine Yellow (Yellow); Glucose, Dipstick Normal (Normal); Ketone-Dipstick Negative (Negative); Leukocyte Esterase-Dipstick 25 /ul (Negative); Nitrite-Dipstick Negative (Negative); Occult Blood-Urine Negative /ul (Negative); Protein-Dipstick 15 mg/dl (Negative); Specific Gravity, Urine 1.015 (1.002-1.030); Urine Bilirubin Dipstick Negative (Negative); Urine Clarity Clear (Clear); Urine Urobilinogen Normal (Normal)
--- NOTE | 2024-06-11 15:18 | ED.RN ---
This RN discussed pt pain 12/23, new order for Tylenol 652 PO. Pt informed this RN 1000 mg Tylenol taken couple hours [employer]. Dr. Kirkpatrick made aware, no new orders for pain medications. Pain still 12/23.
--- NOTE | 2024-06-11 15:19 | CT_ITS ---
PROCEDURE: CT abdomen pelvis with IV contrast REASON FOR EXAM: Pain TECHNIQUE: Multiple contiguous axial images through the abdomen and pelvis were obtained after the administration of intravenous contrast. Two-dimensional coronal and sagittal reformatted images were reconstructed. Low-dose imaging technique was utilized. COMPARISON: 01/26/2022 FINDINGS: Lung bases are clear. Liver, spleen, pancreas and adrenal glands are within normal limits. Gallbladder is surgically absent. No significant biliary ductal dilation. Kidneys enhance symmetrically. No suspicious renal mass, calculi or hydronephrosis. Urinary bladder is within normal limits. Mild/moderate segmental wall thickening of the proximal to mid sigmoid colon within the pelvis concerning for colitis. Prominent distal colonic diverticulosis also noted without significant surrounding inflammatory changes. No pericolonic abscess. No bowel obstruction. No pelvic free fluid. No free air. Calcified nonaneurysmal abdominal aorta. No suspicious adenopathy. Superficial soft tissues are within normal limits. No acute osseous abnormality. Chronic compression fractures at T12 and L1 status post vertebroplasty. CT/Abdomen/Pelvis W IV Cont ONLY IMPRESSION: Mild/moderate segmental wall thickening of the proximal and mid sigmoid colon l ikely related to infectious/inflammatory colitis. No obstruction. One or more dose reduction techniques were used (e.g., Automated exposure contr ol, adjustment of the mA and/or kV according to patient size, use of iterative reconstruction technique). Reading Location: [facility]
[2024-06-11 15:25] LABS: Red Blood Cells-Urine 0-5 SEEN /hpf (0-5); White Blood Cells 0-5 SEEN /hpf (0-5)
[2024-06-11 15:26] LABS: Hyaline Cast 0-5 SEEN /lpf (0-5)
[2024-06-11] MEDS: Ciprofloxacin 500 MG Tablet PO (16:26)
[2024-06-11] MEDS: metroNIDAZOLE 500 MG Tablet PO (16:26)
[2024-06-11] MEDS: Morphine 4 MG/ML Syringe IV (16:27)
[2024-06-11 16:59] VITALS: BP 134/67; PULSE 79; RESP 24; TEMP 36.8; O2SAT 94
== END 2024-06-11 17:04 | disposition home or self-care (01) ==
PROVIDERS: Emergency Provider Emergency Medicine; PCP Internal Medicine; Visit Provider Emergency Medicine
DX: R10.9 Unspecified abdominal pain (principal); J44.9 Chronic obstructive pulmonary disease, unspecified; K52.9 Noninfective gastroenteritis and colitis, unspecified; E78.00 Pure hypercholesterolemia, unspecified; Z86.73 Personal history of transient ischemic attack (TIA), and cerebral infarction without residual deficits; F41.9 Anxiety disorder, unspecified; Z79.899 Other long term (current) drug therapy; G43.909 Migraine, unspecified, not intractable, without status migrainosus; Z79.51 Long term (current) use of inhaled steroids; G25.81 Restless legs syndrome; Z98.51 Tubal ligation status; Z90.49 Acquired absence of other specified parts of digestive tract; F17.210 Nicotine dependence, cigarettes, uncomplicated
CPT/HCPCS: 74177; 80053; 81001; 83690; 85025; 96361; 96374; 96375; 96376; 99283; Q9967; A4216; J2405

== ENCOUNTER 2024-07-25 11:24 | Emergency (ER) | payer MEDICAID, SELFPAY ==
[2024-07-25 11:25] VITALS: BP 156/80; PULSE 78; RESP 19; TEMP 36.7; O2SAT 97; BMI 20.7
--- NOTE | 2024-07-25 11:41 | EDS_ITS ---
HPI <DARREN Sinha - Last Filed: 07/25/24 13:19> HPI - Fall History of Present Illness Chief Complaint: Fall Narrative Narrative: 68-year-old female had a mechanical fall 2 days ago injuring her head and right shoulder. She normally uses a walker and has a ramp going into her home but states she wanted to carry all her grocery bags at once up the ramp so was not using it. She tripped over an uneven area and fell forward hitting her face and right shoulder on the ground. She had brief LOC. No blood thinners. She has had persistent right shoulder pain since then and went to urgent care but they sent her here for evaluation. She denies headache, visual changes, neck pain, or nausea or vomiting. She has a history of right shoulder rotator cuff surgery about 30 years ago. She denies weakness numbness or tingling. [facility] <DARREN Sinha - Last Filed: 07/25/24 13:19> [facility] Medical History Uses feeding tube Chronic pancreatitis Severe protein-calorie malnutrition History of pneumonia Weakness Adult failure to thrive Marijuana use Restless legs Psoriasis Easy bruising Hepatitis Shortness of breath on exertion Nicotine dependence Chest pain Wears dentures Wears hearing aid Arthritis Anemia High cholesterol Back pain Injury of back Migraine headache Injury of head and neck Syncope Former smoker COPD (chronic obstructive pulmonary disease) Broken back Leg cramps History of echocardiogram History of stress test Cardiology follow-up encounter History of irregular heartbeat Hx of fracture of nose Personality disorder Osteoporosis Migraines DDD (degenerative disc disease), cervical Cochlear implant in place Bulimia Hepatitis C Calculus of gallbladder without cholecystitis without obstruction Abnormal findings on diagnostic imaging of liver and biliary tract Abnormal weight loss Steatorrhea, pancreatic Severe protein-calorie malnutrition Pancreatic duct stricture Idiopathic chronic pancreatitis Rheumatoid arthritis Anxiety Latent tuberculosis TIA (transient ischemic attack) Home Medications ?Medication ?Instructions ?Recorded ?Last Taken ?Type alprazolam 1 mg tablet (Xanax) 1 mg PO BID mood 12/16/ 01/04/22 History Held on 02/01/22. Instructions: Resume on 02/14/22. Please discuss with your care physician for his resuming this medication rizatriptan 10 mg tablet 10 mg PO PRN PRN Migraine He adache 05/06/17 01/03/22 History magnesium oxide 400 mg (241.3 mg 400 mg PO DAILY SUPPL EMENT 08/04/20 01/04/22 History magnesium) tablet abatacept 125 mg/mL subcutaneous 125 mg subcut FR [facility] with 07/28/21 3 Weeks Ago History syringe primary doctor ~01/01/22 Held on 02/01/22. Instructions: Resume on 02/14/22. You are on antibiotics for an infection that he had in your abdomen, this medication has been held. Please discuss with your primary care physician to determine when it is appropriate to resume this medication albuterol sulfate 2.5 mg/3 mL 3 mg inhalation Q4H PRN PRN 08/11/21 3 Weeks Ago History (0.083 %) solution for nebulization Wheezing ~ 2 nicotine 10 mg inhalation 1 inh inhalation 4X/DAY PRN 08/11/21 01/21/22 History cartridge (Nicotrol) Smoking Cessation ergocalciferol (vitamin D2) 1,250 1,250 mcg PO FR SUPP LEMENT 01/05/22 12/22/21 History mcg (50,000 unit) capsule (Vitamin D2) quetiapine 200 mg tablet 100 mg PO QHS RLS 01/05/22 0 12/26/21 History ropinirole 1 mg tablet 1 mg PO QHS RLS 01/05/22 History cyanocobalamin (vitamin B-12) 500 1,000 mcg (2 x 500 m cg) PO 02/01/22 Unknown Rx mcg tablet BREAKFAST 30 days #60 tabs folic acid 1 mg tablet 1 mg PO BREAKFAST 30 days #3 0 tabs 02/01/22 Unknown Rx [id number] See Rx Instructions .Route 1 Unknown Rx 6,000-19,000-30,000 unit .COMPLEX 30 days #150 caps capsule,delayed rel (Creon) polyethylene glycol 3350 17 4 g PO DAILY 11/26/22 Unkn own History gram/dose oral powder (Miralax) prednisone 20 mg tablet 60 mg (3 x 20 mg) PO DAILY # 12 03/23/24 Unknown Rx TABLETS amoxicillin 875 mg tablet 875 mg PO BID 04/23/24 Unkno wn History apremilast 30 mg tablet (Otezla) 30 mg PO BID 04/23/24 Unknown History budesonide-formoterol HFA 80 inhalation 04/23/24 Unkno wn History mcg-4.5 mcg/actuation aerosol inhaler (Symbicort) ciprofloxacin HCl 250 mg tablet 500 mg PO BID 04/23/24 Unknown History dicyclomine 10 mg capsule 10 mg PO .QID PRN 04/23/24 U nknown History omega-3 acid ethyl esters 1 gram 1 cap PO BID 04/23/24 Unknown History capsule ciprofloxacin 500 mg/5 mL oral 500 mg (5 mL) PO BID 10 days #100 06/11/24 Unknown Rx suspension (Cipro) mL metronidazole 500 mg tablet 500 mg PO TID 10 days #30 tabs 06/11/24 Unknown Rx hydrocodone-acetaminophen 5-325mg 1 tab PO Q6H PRN pedro n 3 days #12 07/25/24 Unknown Rx 5mg-325mg tabs Allergy/AdvReac Type Severity Reaction Status Date / Time bupropion Allergy Other Verified 07/25/24 11:27 codeine Allergy Hives Verified 07/25/24 11:27 Environmental Allergies: Allergy Hives Verified 07/25/24 11:27 Uncoded (pine) gabapentin Allergy Other Verified 07/25/24 11:27 oxaprozin (From Daypro) Allergy Hives Verified 07/25/24 11:27 oxybutynin Allergy Unknown Verified 07/25/24 11:27 oxycodone Allergy Itching Verified 07/25/24 11:27 pentazocine (From Talwin) Allergy Itching Verified 07/25/24 11:27 pentazocine lactate (From Allergy Itching Verified 07/25/24 11:27 Talwin) propoxyphene HCl (From Allergy Hives Verified 07/25/24 11:27 Darvon) propoxyphene napsylate (From Allergy Hives Verified 07/25/24 11:27 Darvocet-N 100) rofecoxib (From Vioxx) Allergy Rash Verified 07/25/24 11:27 tramadol HCl (From Ultram) Allergy Upset Verified 07/25/24 11:27 Stomach cyclobenzaprine HCl (From AdvReac Upset Verified 07/25/24 11:27 Flexeril) Stomach hydrocodone AdvReac Other Verified 07/25/24 11:27 venlafaxine HCl (From AdvReac Upset Verified 07/25/24 11:27 Effexor) Stomach Family History Mother CVA (cerebral vascular accident) Hypertension Father Cancer Diabetes Sister Thyroid disorder Surgical History History of ERCP History of kyphoplasty History of nasal surgery History of repair of cleft lip History of colonoscopy History of rotator cuff surgery History of mandibular surgery Hx of LASIK Hx of neck surgery History of back surgery Hx of tubal ligation History of tracheostomy History of bladder surgery H/O section History of cochlear implant Hx of cholecystectomy Social History Smoking Status: Light Smoker (<10/day) alcohol intake: never ROS <DARREN Sinha - Last Filed: 07/25/24 13:19> ROS ED ROS Narrative GI: Negative for nausea, vomiting. Neuro: Negative for headache, motor/sensory dysfunction. Skin: Positive for abrasions Musc: Positive for right shoulder, trauma. EXAM <DARREN Sinha - Last Filed: 07/25/24 13:19> Physical Exam Narrative Exam Narrative: CONST: Patient sitting in no acute distress. EYES: Normal inspection. PERRL, EOMI. ENT: Soft tissue swelling and periorbital ecchymosis of left orbit. No crepitus. No Holt sign, no nasal septal hematoma or hemotympanum, no CSF otorrhea or rhinorrhea. NECK: Normal inspection. No midline tenderness or step-offs. RESP: No respiratory distress, CTAB. Chest wall nontender. CVS: Regular rate and rhythm, no murmur, no gallop. Back: Normal inspection, no midline tenderness. SKIN: Color normal, no rash, warm, dry, intact. EXTREMITIES: Normal appearance extremities. Chronic bilateral shoulder surgical scars. The right shoulder has a small depression lateral to the scar and is tender to the touch. Significantly limited shoulder range of motion due to pain. 2+ radial pulses, normal motor and sensory function in median radial and ulnar distributions. Full range of motion of lower extremities, no bony tenderness, 2+ DP pulses. NEURO: Alert and answering questions appropriately. PSYCH: Normal affect. Const Vital Signs: 07/25/24 11:25 07/25/24 11:38 Temperature 98.1 F Temperature Source Temporal Pulse Rate 78 Respiratory Rate 19 H Respiratory Effort Normal Respiratory Depth Normal Respiratory Pattern Normal Blood Pressure 156/80 H Blood Pressure Mean 105 Pulse Ox 97 Oxygen Delivery Method Room Air Room Air <Dr. Yaniv Buenrostro MD - Last Filed: 07/25/24 11:51> Physical Exam Const Vital Signs: 07/25/24 11:25 07/25/24 11:38 Temperature 98.1 F Temperature Source Temporal Pulse Rate 78 Respiratory Rate 19 H Respiratory Effort Normal Respiratory Depth Normal Respiratory Pattern Normal Blood Pressure 156/80 H Blood Pressure Mean 105 Pulse Ox 97 Oxygen Delivery Method Room Air Room Air MDM <DARREN Sinha - Last Filed: 07/25/24 13:19> MDM MDM Narrative Medical decision making narrative: Differential includes shoulder contusion, rotator cuff tear, fracture, dislocation 68-year-old female had a mechanical fall 2 days ago with facial injury and right shoulder injury. She reports brief LOC. No blood thinners. Her only complaint is right shoulder pain and limited range of motion. She appears well nontoxic. Vital signs stable. She has left-sided facial contusions and a healing abrasion. Neurologically intact. No midline cervical tenderness. She also is significantly tender over the right anterior shoulder with limited movement. Distally neurovascularly intact. CT brain and facial bones are negative for acute injuries. She was given a tetanus update for the abrasions and [place] for right shoulder pain. Shoulder x-ray is negative. Clinically I suspect a rotator cuff injury. She was provided a sling, advised to do passive range of motion and follow-up with orthopedics for further evaluation. She was discharged in stable condition. I have personally performed a face to face assessment of the patient and have reviewed the ALEJANDRA Note. I performed a substantive portion of the visit including all aspects of the following. My soto findings include: History is 64-year-old female typically uses a walker came home with her groceries on did 1 to make multiple trips up and down a ramp to get in her house show she was using her walker she had multiple bags of groceries she fell hitting her left side of face and eyebrow and a brief loss of consciousness and also injured her right shoulder. She has had prior bilateral rotator cuff repairs many years ago. She is unable to lift her right shoulder due to pain. She is not on blood thinners she denies any neck pain. Denies other injuries. Exam is [well-appearing 68-year-old female. Vital signs are stable and afebril e. H EENT exam pupils round react light. Extra motions are intact. She has a close laceration left lateral periorbital area. There is bruising just below her eye. No bony deformity. Mild swelling. No active bleeding. Scalp nontender. C-spine and neck nontender. Back nontender. Lungs clear. Heart regular rhythm. Chest wall ribs nontender. Abdomen soft nontender. Pelvic girdle intact. Her left upper and both lower extremities are nontender no deformity with normal range of motion. She has tenderness to the right shoulder she is unable to lift her right arm over her shoulder. Right elbow, forearm, wrist and hand are nontender. Normal test design engineer strength. Normal radial pulse. No deformity. Left upper extremity is nontender. Neurologically she is awake alert. Answering questions following commands. No focal motor deficits. GCS 15.] Medical Decision Making [68-year-old fell injured her head and right shoulder. Right shoulder x-ray to be obtained. CT of her head and facial bones will be obtained. She has no neck pain. Injury occurred 2 days ago I do not think she needs a CT spine or any labs. She will be given a [place] for pain.] Other additions or changes: [None] Radiography Diagnostic Testing: Clinical Impression(s) from Imaging Studies Brain CT 07/25/24 11:58 IMPRESSION: Visualization limited by streak artifact. No obvious acute intracranial finding. Reading Location: [facility] Facial/Sinus 07/25/24 11:58 IMPRESSION: No CT evidence of acute maxillofacial fracture. Chronic findings as described. Reading Location: [facility] Shoulder X-Ray 07/25/24 12:05 IMPRESSION: NEGATIVE SHOULDER SERIES Reading Location: [facility] ED attending interpretation of right shoulder shows no fracture or dislocation. <Dr. Yaniv Buenrostro MD - Last Filed: 07/25/24 11:51> MDM MDM Narrative Medical decision making narrative: I have personally performed a face to face assessment of the patient and have reviewed the ALEJANDRA Note. I performed a substantive portion of the visit including all aspects of the following. My soto findings include: History is 64-year-old female typically uses a walker came home with her groceries on did 1 to make multiple trips up and down a ramp to get in her house show she was using her walker she had multiple bags of groceries she fell hitting her left side of face and eyebrow and a brief loss of consciousness and also injured her right shoulder. She has had prior bilateral rotator cuff repairs many years ago. She is unable to lift her right shoulder due to pain. She is not on blood thinners she denies any neck pain. Denies other injuries. Exam is [well-appearing 68-year-old female. Vital signs are stable and afebrile. H EENT exam pupils round react light. Extra motions are intact. She has a close laceration left lateral periorbital area. There is bruising just below her eye. No bony deformity. Mild swelling. No active bleeding. Scalp nontender. C-spine and neck nontender. Back nontender. Lungs clear. Heart regular rhythm. Chest wall ribs nontender. Abdomen soft nontender. Pelvic girdle intact. Her left upper and both lower extremities are nontender no deformity with normal range of motion. She has tenderness to the right shoulder she is unable to lift her right arm over her shoulder. Right elbow, forearm, wrist and hand are nontender. Normal test design engineer strength. Normal radial pulse. No deformity. Left upper extremity is nontender. Neurologically she is awake alert. Answering questions following commands. No focal motor deficits. GCS 15.] Medical Decision Making [68-year-old fell injured her head and right shoulder. Right shoulder x-ray to be obtained. CT of her head and facial bones will be obtained. She has no neck pain. Injury occurred 2 days ago I do not think she needs a CT spine or any labs. She will be given a [place] for pain.] Other additions or changes: [None] History & Record Review Discussion w/independent historian: Patient Additional record(s) reviewed:: Prior inpatient record, Prior outpatient record, Prior ED visit and Prior labs Radiography Diagnostic Testing: Clinical Impression(s) from Imaging Studies Brain CT 07/25/24 11:58 IMPRESSION: Visualization limited by streak artifact. No obvious acute intracranial finding. Reading Location: [facility] Facial/Sinus 07/25/24 11:58 IMPRESSION: No CT evidence of acute maxillofacial fracture. Chronic findings as described. Reading Location: [facility] Shoulder X-Ray 07/25/24 12:05 IMPRESSION: NEGATIVE SHOULDER SERIES Reading Location: [facility] Discharge Plan Triage Chief Complaint: Fall ED Midlevel Provider: Gala Merida ED Provider: Yaniv Buenrostro Dx/Rx/DC Orders Clinical Impression: Acute pain of right shoulder, Fall, Head injury, closed, with brief LOC, Contusion of face Instructions: ED Shoulder Sprain Prescriptions: New hydrocodone-acetaminophen 5-325 mg tablet 1 tab PO Q6H PRN (Reason: pain) 3 Days Qty: 12 0RF No Action abatacept 125 mg/mL syringe 125 mg subcut FR polyethylene glycol 3350 [Miralax] 17 gram/dose powder 4 g PO DAILY amoxicillin 875 mg tablet 875 mg PO BID budesonide-formoterol [Symbicort] 80-4.5 mcg/actuation HFA aerosol inhaler inhalation dicyclomine 10 mg capsule 10 mg PO .QID PRN omega-3 acid ethyl esters 1 gram capsule 1 cap PO BID Otezla 30 mg tablet 30 mg PO BID ciprofloxacin HCl 250 mg tablet 500 mg PO BID alprazolam [Xanax] 1 MG tablet 1 mg PO BID rizatriptan 10 tablet 10 mg PO PRN PRN (Reason: Migraine Headache) Patient Comments: magnesium oxide 400 MG tablet 400 mg PO DAILY albuterol sulfate 2.5 mg /3 mL (0.083 %) solution for nebulization 3 mg inhalation Q4H PRN PRN (Reason: Wheezing) Nicotrol 10 mg Cartridge 1 inh INHALATION 4X/DAY PRN (Reason: Smoking Cessation) ropinirole 1 mg tablet 1 mg PO QHS Patient Comments: take 1 tablet by mouth at bedtime quetiapine 200 mg tablet 100 mg PO QHS ergocalciferol (vitamin D2) [Vitamin D2] 1,250 mcg (50,000 unit) capsule 1,250 mcg PO FR Creon 6,000-19,000 -30,000 unit Capsule,Delayed Release(Dr/Ec) See Rx Instructions .ROUTE .COMPLEX 30 Days Qty: 150 0RF Rx Instructions: Take up to 5 caps with meals and snacks cyanocobalamin (vitamin B-12) 500 mcg Tablet 1,000 mcg PO BREAKFAST 30 Days Qty: 60 0RF folic acid 1 mg Tablet 1 mg PO BREAKFAST 30 Days Qty: 30 0RF ciprofloxacin [Cipro] 500 mg/5 mL suspension,microcapsule recon 500 mg PO BID 10 Days Qty: 100 0RF metronidazole 500 mg tablet 500 mg PO TID 10 Days Qty: 30 0RF prednisone 20 mg tablet 60 mg PO DAILY Qty: 12 0RF Primary Care Provider: Sanam Alex Referrals: Sanam Alex MD [Primary Care Provider] - Toni Quintana MD [Med Staff - Active Staff] - Activity Restrictions/Additional Instructions: Your CT scans and x-ray of your right shoulder showed no broken bones. Ice and take the [place] as needed for pain. It is important you follow-up with an orthopedic doctor for further evaluation of her right shoulder as you may have injured the soft tissues or muscles. Print Language: Uruguayan Disposition Disposition: Home, Self Care Discharge Date/Time: 07/25/24 13:14
[2024-07-25] MEDS: Diphth,Pertuss(Acell),Tet Vac 0.5 ML Vial IM (11:47)
[2024-07-25] MEDS: HYDROcodone Bitartrate/Apap 5/325 Tablet PO (11:52)
--- NOTE | 2024-07-25 11:58 | CT_ITS ---
EXAM: SINUS/FACIAL BONE CLINICAL HISTORY: HEAD INJURY COMPARISON: Same-day CT head. TECHNIQUE: Helical CT of the facial bones without IV contrast. Reformatted images are included for review. Dose reduction techniques were used including intermediate exposure control (AEC),iterative reconstruction technique, and/or mA and/or KV dose adjustments based on patient's size. FINDINGS: See CT head for discussion of paranasal sinuses and intracranial findings. Right cochlear implant. Prior right mandibular surgery with wire fixation. Severe right TMJ arthrosis. Asymmetric atrophy or prior surgical removal of the right submandibular and parotid glands. There is no linear lucency, cortical irregularity or bony deformity to suggest acute displaced fracture. 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 Calcific plaque of the cervical carotid arteries. Multiple mandibular periapical lucencies. Maxillary edentulism. No facial soft tissue contusion or edema. CT/Sinus/Facial Bone IMPRESSION: No CT evidence of acute maxillofacial fracture. Chronic findings as described. Reading Location: [id number]
--- NOTE | 2024-07-25 11:58 | CT_ITS ---
EXAM: BRAIN/HEAD WITHOUT CONTRAST CLINICAL HISTORY: 68 y/o F with FALL. COMPARISON: None. TECHNIQUE: Routine CT imaging of the head without IV contrast. Additional multiplanar reformats were obtained. Dose reduction techniques were used including intermediate exposure control (AEC),iterative reconstruction technique, and/or mA and/or KV dose adjustments based on patient's size. FINDINGS: Visualization is limited by metallic streak artifact. Right cochlear implant. No large intracerebral hematoma. Mild patchy supratentorial white matter hypodensities. The basal cisterns are patent. No ventriculomegaly. Prior ocular lens replacements. The visualized paranasal sinuses are unremarkable. No acute calvarial fracture or scalp hematoma. Severe right TMJ arthrosis. CT/Brain/Head without Contrast IMPRESSION: Visualization limited by streak artifact. No obvious acute intracranial findin g. Reading Location: [id number]
--- NOTE | 2024-07-25 12:05 | RAD_ITS ---
PROCEDURE: SHOULDER MIN 2 VIEWS 07/25/2024 REASON FOR EXAM: PAIN TECHNIQUE: 4 view(s) of the right shoulder COMPARISON: None. FINDINGS: Bones: No acute osseous fracture. No aggressive osseous lesions. Joints: Normal alignment of the acromioclavicular and glenohumeral joints. Soft tissues: Soft tissues are unremarkable. Other: Visualized portions of the right lung are unremarkable. RAD/Shoulder min 2 Views IMPRESSION: NEGATIVE SHOULDER SERIES Reading Location: [id number]
== END 2024-07-25 13:14 | disposition home or self-care (01) ==
PROVIDERS: Emergency Provider Emergency Medicine; PCP Internal Medicine; Visit Provider Emergency Medicine
DX: M25.511 Pain in right shoulder (principal); J44.9 Chronic obstructive pulmonary disease, unspecified; S06.9X1A Unspecified intracranial injury with loss of consciousness of 30 minutes or less, initial encounter; E78.00 Pure hypercholesterolemia, unspecified; W10.2XXA Fall (on)(from) incline, initial encounter; Y93.89 Activity, other specified; Y92.009 Unspecified place in unspecified non-institutional (private) residence as the place of occurrence of the external cause; Z86.73 Personal history of transient ischemic attack (TIA), and cerebral infarction without residual deficits; F41.9 Anxiety disorder, unspecified; Z79.899 Other long term (current) drug therapy; Z79.51 Long term (current) use of inhaled steroids; G25.81 Restless legs syndrome; Z98.51 Tubal ligation status; Z90.49 Acquired absence of other specified parts of digestive tract; F17.200 Nicotine dependence, unspecified, uncomplicated; S00.83XA Contusion of other part of head, initial encounter
CPT/HCPCS: 70450; 70486; 73030; 99282

== ENCOUNTER 2024-11-27 16:11 | Emergency (ER) | payer MEDICAID, SELFPAY ==
[2024-11-27 16:11] VITALS: BP 152/84; PULSE 100; RESP 18; TEMP 37.7; O2SAT 100
[2024-11-27 16:14] VITALS: BP 152/84; PULSE 102; RESP 18; TEMP 37.7; O2SAT 100; BMI 21.2
--- NOTE | 2024-11-27 17:06 | CT_ITS ---
PROCEDURE: CT ABDOMEN/PELVIS W IV CONT ONLY 11/27/2024 REASON FOR EXAM: PAIN TECHNIQUE: CT ABDOMEN/PELVIS W IV CONT ONLY Coronal and Sagittal reconstruction series were provided. CONTRAST: Isovue 370 VOLUME: 100 mL One or more dose reduction techniques were used (e.g., Automated exposure control, adjustment of the mA and/or kV according to patient size, use of iterative reconstruction technique. RADIATION DOSE SUMMARY: DLP: 447.46 mGycm COMPARISON: Abdominal CT 06/11/2024. FINDINGS: Lung bases: Clear. Liver: Hepatic steatosis. No focal lesion. Gallbladder: Surgically absent. Chronic presumed age-related and/or postoperative prominence of the CBD and main pancreatic duct, unchanged. Spleen: Normal size and morphology. Pancreas: Prominence of the pancreatic duct. No discrete focal lesion. Adrenals: Unremarkable. Kidneys: Normal in size with symmetric enhancement. No hydronephrosis. Bladder: Collapsed, limiting its evaluation. Reproductive Organs: Grossly unremarkable uterus and adnexae. Bowel: Unremarkable stomach and small bowel. Normal appendix. No bowel obstruction. Segmental wall thickening and inflammation involving the rectosigmoid colon compatible with colitis. Lymph nodes: No suspicious lymph node enlargement. Vasculature: Normal caliber abdominal aorta and IVC. Moderate-advanced atherosclerotic disease. Peritoneum / Retroperitoneum: No free fluid or air. Bones: No acute abnormality. Chronic compression fracture deformities of T12 and L1 with kyphoplasty bone cement. Qualitative osteopenia. CT/Abdomen/Pelvis W IV Cont ONLY IMPRESSION: Segmental colitis of the rectosigmoid colon. Reading Location: [id number]
--- NOTE | 2024-11-27 17:14 | EDS_ITS ---
HPI History of Present Illness Chief Complaint: Wound Narrative Narrative: Patient is a 69-year-old female presenting emergency department for abdominal pain and diarrhea. Patient has a past medical history as below. 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 States that she has had it shaved off multiple times. She reports over the past 4 days she has developed left lower quadrant abdominal pain that has continued to worsen. Endorses multiple episodes of diarrhea daily. Describes the diarrhea has mucousy and stringy with some pink tinges. Endorses some mild nausea with no vomiting. Denies any fever or chills. Denies any recent travel. Denies any recent antibiotic use. No new pets at home. [facility] Medical History Uses feeding tube Chronic pancreatitis Severe protein-calorie malnutrition History of pneumonia Weakness Adult failure to thrive Marijuana use Restless legs Psoriasis Easy bruising Hepatitis Shortness of breath on exertion Nicotine dependence Chest pain Wears dentures Wears hearing aid Arthritis Anemia High cholesterol Back pain Injury of back Migraine headache Injury of head and neck Syncope Former smoker COPD (chronic obstructive pulmonary disease) Broken back Leg cramps History of echocardiogram History of stress test Cardiology follow-up encounter History of irregular heartbeat Hx of fracture of nose Personality disorder Osteoporosis Migraines DDD (degenerative disc disease), cervical Cochlear implant in place Bulimia Hepatitis C Calculus of gallbladder without cholecystitis without obstruction Abnormal findings on diagnostic imaging of liver and biliary tract Abnormal weight loss Steatorrhea, pancreatic Severe protein-calorie malnutrition Pancreatic duct stricture Idiopathic chronic pancreatitis Rheumatoid arthritis Anxiety Latent tuberculosis TIA (transient ischemic attack) Home Medications ?Medication ?Instructions ?Recorded ?Last Taken ?Type alprazolam 1 mg tablet (Xanax) 1 mg PO BID mood 01/04/22 History Held on 02/01/22. Instructions: Resume on 02/14/22. Please discuss with your care physician for his resuming this medication rizatriptan 10 mg tablet 10 mg PO PRN PRN Migraine He adache 05/06/17 01/03/22 History magnesium oxide 400 mg (241.3 mg 400 mg PO DAILY SUPPL EMENT 08/04/20 01/04/22 History magnesium) tablet abatacept 125 mg/mL subcutaneous 125 mg subcut FR [facility] k with 07/28/21 3 Weeks Ago History syringe primary doctor ~01/01/22 Held on 02/01/22. Instructions: Resume on 02/14/22. You are on antibiotics for an infection that he had in your abdomen, this medication has been held. Please discuss with your primary care physician to determine when it is appropriate to resume this medication albuterol sulfate 2.5 mg/3 mL 3 mg inhalation Q4H PRN PRN 08/11/21 3 Weeks Ago History (0.083 %) solution for nebulization Wheezing ~ 2 ergocalciferol (vitamin D2) 1,250 1,250 mcg PO FR SUPP LEMENT 01/05/22 12/22/21 History mcg (50,000 unit) capsule (Vitamin D2) ropinirole 1 mg tablet 1 mg PO QHS RLS 01/05/22 History cyanocobalamin (vitamin B-12) 500 1,000 mcg (2 x 500 m cg) PO 02/01/22 Unknown Rx mcg tablet BREAKFAST 30 days #60 tabs folic acid 1 mg tablet 1 mg PO BREAKFAST 30 days #3 0 tabs 02/01/22 Unknown Rx [id number] See Rx Instructions .Route 1 Unknown Rx 6,000-19,000-30,000 unit .COMPLEX 30 days #150 caps capsule,delayed rel (Creon) apremilast 30 mg tablet (Otezla) 30 mg PO BID 04/23/24 Unknown History budesonide-formoterol HFA 80 inhalation 04/23/24 Unkno wn History mcg-4.5 mcg/actuation aerosol inhaler (Symbicort) omega-3 acid ethyl esters 1 gram 1 cap PO BID 04/23/24 Unknown History capsule hydrocodone-acetaminophen 5-325mg 1 tab PO Q6H PRN pedro n 3 days #12 07/25/24 Unknown Rx 5mg-325mg tabs albuterol sulfate 90 mcg/actuation 2 puff inhalation Q 4 PRN wheezing 07/31/24 Unknown History aerosol inhaler polyethylene glycol 3350 17 17 g PO DAILY 07/31/24 Unk nown History gram/dose oral powder (Miralax) quetiapine 200 mg tablet 200 mg PO QHS RLS 07/31/24 U nknown History vancomycin 125 mg capsule 125 mg PO Q6H 10 days #40 ca ps 11/27/24 Unknown Rx (Vancocin) Allergy/AdvReac Type Severity Reaction Status Date / Time bupropion Allergy Other Verified 11/27/24 16:15 codeine Allergy Hives Verified 11/27/24 16:15 Environmental Allergies: Allergy Hives Verified 11/27/24 16:15 Uncoded (pine) gabapentin Allergy Other Verified 11/27/24 16:15 oxaprozin (From Daypro) Allergy Hives Verified 11/27/24 16:15 oxybutynin Allergy Unknown Verified 11/27/24 16:15 oxycodone Allergy Itching Verified 11/27/24 16:15 pentazocine (From Talwin) Allergy Itching Verified 11/27/24 16:15 pentazocine lactate (From Allergy Itching Verified 11/27/24 16:15 Talwin) propoxyphene HCl (From Allergy Hives Verified 11/27/24 16:15 Darvon) propoxyphene napsylate (From Allergy Hives Verified 11/27/24 16:15 Darvocet-N 100) rofecoxib (From Vioxx) Allergy Rash Verified 11/27/24 16:15 tramadol HCl (From Ultram) Allergy Upset Verified 11/27/24 16:15 Stomach cyclobenzaprine HCl (From AdvReac Upset Verified 11/27/24 16:15 Flexeril) Stomach hydrocodone AdvReac Other Verified 11/27/24 16:15 venlafaxine HCl (From AdvReac Upset Verified 11/27/24 16:15 Effexor) Stomach Family History Mother CVA (cerebral vascular accident) Hypertension Father Cancer Diabetes Sister Thyroid disorder Surgical History History of ERCP History of kyphoplasty History of nasal surgery History of repair of cleft lip History of colonoscopy History of rotator cuff surgery History of mandibular surgery Hx of LASIK Hx of neck surgery History of back surgery Hx of tubal ligation History of tracheostomy History of bladder surgery H/O section History of cochlear implant Hx of cholecystectomy Social History Smoking Status: Light Smoker (<10/day) alcohol intake: never substance use type: does not use ROS ROS ED ROS Narrative See HPI EXAM Physical Exam Narrative Exam Narrative: Vital signs: Reviewed General: Alert and oriented. No acute distress HEENT: Head is normocephalic and atraumatic, sinuses nontender, pupils equal round and reactive. Nares are patent. Oropharynx and throat exams normal. Neck: Supple without lymphadenopathy nontender Cardiovascular: Regular rate and rhythm, no murmurs. No rubs or gallops. Normal S1 and S2 Respiratory: Clear to auscultation bilaterally. No wheezes, rales, rhonchi Abdominal: Soft with tenderness to palpation in the left lower and suprapubic quadrants. Normal bowel sounds. No guarding or rebound. : completed with nurse at bedside, healed wound to right lateral gluteal cleft. No erythema, warmth or fluctuance. No abscess. Extremities: No tenderness. No bruising. Normal range of motion. Normal sensation. Skin: No rash or redness. Neurological: Cranial nerves II through XII are grossly intact. Normal strength and sensation. Normal cerebellar function The rest of the physical exam is unremarkable Const Vital Signs: 11/27/24 16:11 11/27/24 16:14 11/27/24 17:56 Temperature 99.9 F H 99.9 F H 99.7 F H Temperature Source Oral Oral Oral Pulse Rate 100 102 H 95 Respiratory Rate 18 18 18 Blood Pressure 152/84 H 152/84 H 147/68 H Blood Pressure Mean 106 106 94 Pulse Ox 100 100 95 Oxygen Delivery Method Room Air Room Air Room Air 11/27/24 19:00 Temperature Temperature Source Pulse Rate 82 Respiratory Rate 18 Blood Pressure 132/77 H Blood Pressure Mean 95 Pulse Ox 97 Oxygen Delivery Method Room Air MDM MDM MDM Narrative Medical decision making narrative: Patient is a 69-year-old female presenting emergency department for diarrhea and abdominal pain. Patient was seen and examined. Vitals are stable. Patient resting bed comfortably no acute distress. Differential includes but is not limited to: Diverticulitis, viral versus bacterial diarrhea, fistula, colitis Fluid bolus ordered. Analgesia given. Labs and imaging ordered. CBC with mild leukocytosis of 13.8 and normal hemoglobin. CMP with no significant abnormalities. Lipase within normal limits. Urinalysis with no evidence of infection. CT shows segmental colitis of the rectosigmoid colon. Stool studies came back as positive for C. difficile. Patient given p.o. vancomycin here. She was updated on the lab and imaging findings. C. difficile colitis was discussed with her. Precautions were discussed with her. She will be given prescription for p.o. vancomycin for the next 10 days. Patient discharged from the Emergency Department. I do not feel that the patient's evaluation reveals any acute reason for admission at this time. I instructed them to either follow- up with their primary care physician or promptly return to the Emergency Department for reevaluation should symptoms worsen or new symptoms develop. I explained what symptoms would indicate the need to return to the emergency department. Shared decision making was used. The patient voiced understanding of the treatment plan and is agreeable with it. Clinical impression: C. difficile colitis History & Record Review Discussion w/independent historian: Patient Lab Data Attestation: I reviewed the patient's lab results. Labs: Laboratory Results - last 24 hr 11/27/24 11/27/24 17:25 19:10 WBC 13.8 H RBC 4.62 Hgb 14.7 Hct 43.4 MCV 93.9 MCH 31.8 MCHC 33.9 RDW Std Deviation 53.1 H RDW Coeff of Fidelina 15.4 H Plt Count 235 MPV 10.0 Immature Gran % (Auto) 0.400 Neut % (Auto) 74.7 H Lymph % (Auto) 14.8 L [place] % (Auto) 9.6 Eos % (Auto) 0.3 Baso % (Auto) 0.2 Absolute Neuts (auto) 10.3 H Absolute Lymphs (auto) 2.04 Nucleated RBC % 0 Sodium 135 Potassium 4.4 Chloride 99 Carbon Dioxide 20.8 L Anion Gap 15 BUN 15 Creatinine 0.80 Estim Creat Clear Calc 58.93 Est GFR (MDRD) Non-Af 80 BUN/Creatinine Ratio 19.1 Glucose 119 H Calcium 9.7 Total Bilirubin 0.35 AST 24 ALT 12 Alkaline Phosphatase 79 Total Protein 7.1 Albumin 4.3 Globulin 2.8 Albumin/Globulin Ratio 1.5 Lipase 48 Urine Color Straw Urine Clarity Clear Urine pH 7.0 Ur Specific [place] 1.015 Urine Protein 15 H Urine Glucose (UA) Normal Urine Ketones Negative Urine Occult Blood Negative Urine Nitrite Negative Urine Bilirubin Negative Urine Urobilinogen Normal Ur Leukocyte Esterase 25 H Radiography Diagnostic Testing: Clinical Impression(s) from Imaging Studies Abdomen/Pelvis CT 11/27/24 17:06 IMPRESSION: Segmental colitis of the rectosigmoid colon. Reading Location: [facility] Discharge Plan Triage Chief Complaint: Wound ED Provider: Preethi Anthony Dx/Rx/DC Orders Clinical Impression: C. difficile colitis Instructions: C diff, C. Diff Prevent Infection, My C. Diff Infection Treatment Plan Prescriptions: New vancomycin [Vancocin] 125 mg capsule 125 mg PO Q6H 10 Days Qty: 40 0RF No Action abatacept 125 mg/mL syringe 125 mg subcut FR polyethylene glycol 3350 [Miralax] 17 gram/dose powder 17 g PO DAILY budesonide-formoterol [Symbicort] 80-4.5 mcg/actuation HFA aerosol inhaler inhalation omega-3 acid ethyl esters 1 gram capsule 1 cap PO BID Otezla 30 mg tablet 30 mg PO BID albuterol sulfate 90 mcg/actuation HFA aerosol inhaler 2 puff inhalation Q4 PRN (Reason: wheezing) alprazolam [Xanax] 1 MG tablet 1 mg PO BID rizatriptan 10 tablet 10 mg PO PRN PRN (Reason: Migraine Headache) Patient Comments: magnesium oxide 400 MG tablet 400 mg PO DAILY albuterol sulfate 2.5 mg /3 mL (0.083 %) solution for nebulization 3 mg inhalation Q4H PRN PRN (Reason: Wheezing) ropinirole 1 mg tablet 1 mg PO QHS Patient Comments: take 1 tablet by mouth at bedtime ergocalciferol (vitamin D2) [Vitamin D2] 1,250 mcg (50,000 unit) capsule 1,250 mcg PO FR quetiapine 200 mg tablet 200 mg PO QHS Creon 6,000-19,000 -30,000 unit Capsule,Delayed Release(Dr/Ec) See Rx Instructions .ROUTE .COMPLEX 30 Days Qty: 150 0RF Rx Instructions: Take up to 5 caps with meals and snacks cyanocobalamin (vitamin B-12) 500 mcg Tablet 1,000 mcg PO BREAKFAST 30 Days Qty: 60 0RF folic acid 1 mg Tablet 1 mg PO BREAKFAST 30 Days Qty: 30 0RF hydrocodone-acetaminophen 5-325 mg tablet 1 tab PO Q6H PRN (Reason: pain) 3 Days Qty: 12 0RF Primary Care Provider: Sanam Alex Referrals: Sanam Alex MD [Primary Care Provider] - 2 Days Activity Restrictions/Additional Instructions: Take the antibiotic as prescribed. Your evaluation in the Emergency Department did not reveal any acute reason for admission. However, I want to emphasize that you may be early in the course of a disease process or illness even if it is not present. For this reason you should follow-up within 24 hours for reevaluation with either your primary care physician or if necessary back here in the Emergency Department. You should return to the Emergency Department immediately if your symptoms worsen or new symptoms develop. Print Language: Dominican Disposition Disposition: Home, Self Care
[2024-11-27] MEDS: fentaNYL 100 MCG/2 ML Ampul 50 MCG IV (17:21)
[2024-11-27] MEDS: 0.9% Normal Saline (1000mL) 1,000 ML 1000 ML IV (17:21)
[2024-11-27 17:38] LABS: Hematocrit 43.4 % (37-47); Hemoglobin 14.7 g/dL (12.0-15.0); Immature Granulocytes Count 0.060 X10^3/uL (0.0-0.0); Mean Corp Hgb Conc 33.9 g/dL (32-36); Mean Corpuscular Volume 93.9 fL (81-99); Mean Platelet Vol. 10.0 fl (6.2-12.0); NRBC Flagged by Analyzer 0 % (0-5); Platelet Count 235 K/mm3 (150-450); RBC Distribution Width CV 15.4 % (11.6-14.6); RBC Distribution Width SD 53.1 fl (35.1-43.9); Red Blood Count 4.62 M/mm3 (4.2-5.4); White Blood Count 13.8 K/mm3 (4.4-11.0)
[2024-11-27 17:56] VITALS: BP 147/68; PULSE 95; RESP 18; TEMP 37.6; O2SAT 95
[2024-11-27 18:02] LABS: AST(SGOT) 24 U/L (<=31); Alanine Aminotransfer ALT/SGPT 12 U/L (<=34); Albumin, Serum 4.3 g/dL (3.4-4.8); Alkaline Phosphatase 79 U/L (35-104); Anion Gap 15 (5-15); BUN 15 mg/dL (4-19); BUN/Creat Ratio 19.1 RATIO (10-20); Calcium,Total 9.7 mg/dL (7.6-11.0); Carbon Dioxide 20.8 mmol/L (21.0-32.0); Chloride 99 mmol/L (98-108); Estimated Creatinine Clearance 58.93 ml/min (50-250); Globulin 2.8 g/dL (2.2-4.2); Glucose 119 mg/dL (70-99); Lipase 48 U/L (13-75); Potassium 4.4 mmol/L (3.3-5.1)
[2024-11-27 19:00] VITALS: BP 132/77; PULSE 82; RESP 18; O2SAT 97
[2024-11-27 19:16] LABS: Mucous, Urine 0 SEEN /hpf (<or=2+); Red Blood Cells-Urine 0 SEEN /hpf (0-5)
[2024-11-27 19:35] LABS: Color, Urine Straw (Yellow); Glucose, Dipstick Normal (Normal); Ketone-Dipstick Negative (Negative); Leukocyte Esterase-Dipstick 25 /ul (Negative); Nitrite-Dipstick Negative (Negative); Occult Blood-Urine Negative /ul (Negative); Protein-Dipstick 15 mg/dl (Negative); Specific Gravity, Urine 1.015 (1.002-1.030); Urine Bilirubin Dipstick Negative (Negative)
[2024-11-27 21:00] VITALS: PULSE 68; RESP 18
[2024-11-27 21:11] LABS: Squamous Epithelial Cells - UA 0-5 SEEN /hpf (5-10); Transitional Epithelial - Ur 0 SEEN /hpf (0-5)
[2024-11-27 21:19] VITALS: BP 132/77; PULSE 82; RESP 18; TEMP 37.6; O2SAT 97
[2024-11-27] MEDS: Vancomycin 125 MG/5 ML Susp PO.SYRINGE PO (21:25)
== END 2024-11-27 21:28 | disposition home or self-care (01) ==
PROVIDERS: Emergency Provider Student in an Organized Health Care Education/Training Program; PCP Internal Medicine; Visit Provider Student in an Organized Health Care Education/Training Program
DX: A04.72 Enterocolitis due to Clostridium difficile, not specified as recurrent (principal); J44.9 Chronic obstructive pulmonary disease, unspecified; E78.00 Pure hypercholesterolemia, unspecified; R10.32 Left lower quadrant pain; R19.7 Diarrhea, unspecified; Z85.828 Personal history of other malignant neoplasm of skin; Z86.73 Personal history of transient ischemic attack (TIA), and cerebral infarction without residual deficits; F41.9 Anxiety disorder, unspecified; Z79.899 Other long term (current) drug therapy; G43.909 Migraine, unspecified, not intractable, without status migrainosus; Z79.51 Long term (current) use of inhaled steroids; Z98.51 Tubal ligation status; Z90.49 Acquired absence of other specified parts of digestive tract; F17.200 Nicotine dependence, unspecified, uncomplicated
CPT/HCPCS: 74177; 80053; 81001; 83690; 85025; 87493; 87506; 96361; 96374; 99283; Q9967; A4216

== ENCOUNTER → 2024-12-30 | Outpatient (CLI) | payer MEDICAID, SELFPAY ==
--- NOTE | 2024-12-30 13:46 | CT_ITS ---
PROCEDURE: ABDOMEN/PELVIS WITH CONTRAST 12/30/2024 REASON FOR EXAM: LLQ ABD PAIN/INFX IN ABD TECHNIQUE: Procedure Code: CTABDPELW Modality: CT Procedure: ABDOMEN/PELVIS WITH CONTRAST Coronal and Sagittal reconstruction series were provided. CONTRAST: Isovue-300 VOLUME: 98 mL One or more dose reduction techniques were used (e.g., Automated exposure control, adjustment of the mA and/or kV according to patient size, use of iterative reconstruction technique. RADIATION DOSE SUMMARY: CTDlvol: 13+ 13 mGy DLP: 624 mGycm COMPARISON: August 27, 2024. FINDINGS: The lung bases are clear. The peripheral soft tissues are unremarkable. Degenerative changes of the spine. T12 and L1 vertebroplasties. Moderate atherosclerosis. Normal caliber abdominal aorta. No suspicious lymphadenopathy. The liver is unremarkable. The gallbladder is surgically absent. The pancreatic duct measures up to 5 mm in diameter and is unchanged from the prior CT. The spleen, adrenals are unremarkable. Symmetric enhancement of the bilateral kidneys. The urinary bladder is unremarkable. Slightly decreased but still persistent long segment sigmoid colon wall thickening. The uterus is surgically absent. CT/Abdomen/Pelvis WITH Contrast IMPRESSION: Persistent but slightly improved long-segment sigmoid colonic wall thickening, most consistent with resolving infectious/inflammatory colitis given interval improvement since 11/27/2024. Stable mild pancreatic ductal dilatation (5 mm), most consistent with age-relat ed/post-cholecystectomy change. No further immediate workup required in the absence of symptoms or abnormal labs. Reading Location: [id number]
== END | disposition home or self-care (01) ==
LOC: CT 13:41
PROVIDERS: PCP Internal Medicine; Referring Provider Internal Medicine; Visit Provider Internal Medicine
DX: R10.32 Left lower quadrant pain (principal); K65.9 Peritonitis, unspecified
CPT/HCPCS: 74177; Q9967; A4216

== ENCOUNTER 2025-03-06 04:53 | Emergency (ER) | payer MEDICAID, SELFPAY ==
[2025-03-06 04:59] VITALS: BP 115/73; PULSE 117; RESP 15; TEMP 36.7; O2SAT 98; BMI 18.3
--- NOTE | 2025-03-06 05:13 | CT_ITS ---
PROCEDURE: BRAIN/HEAD WITHOUT CONTRAST 03/06/2025 REASON FOR EXAM: ALTERED MENTAL STATUS TECHNIQUE: Procedure Code: CTBR Modality: CT Procedure: BRAIN/HEAD WITHOUT CONTRAST Coronal and Sagittal reconstruction series were provided. One or more dose reduction techniques were used (e.g., Automated exposure control, adjustment of the mA and/or kV according to patient size, use of iterative reconstruction technique. RADIATION DOSE SUMMARY: CTDI Vol 44.99 mGy DLP :846.73 mGycm FINDINGS: Right cochlear implant inducing beam hardening artifacts degrading the images quality Otherwise, the visualized brain parenchyma shows normal appearance. No focal parenchymal abnormalities are demonstrated. Velez-white matter differentiation is maintained. Normal CT appearance of the posterior fossa structures. No intracerebral or extra-axial hemorrhage. No midline shifts or deformity. Normal size and configuration of the cerebral ventricles. Prominent fronto-parietal extra-axial CSF spaces. No definite calvarial fractures. The osseous structures in the skull base are unremarkable. Paranasal sinuses are unremarkable. Abnormal contour of the nasal bones. CT/Brain/Head without Contrast IMPRESSION: No intracerebral or extra-axial hemorrhage. No acute cerebrovascular insult. If clinical symptoms persist, further evaluati on with MRI may be considered as clinically warranted. Stable study findings. [facility]
--- NOTE | 2025-03-06 05:13 | EKG12_ITS ---
Test Reason : DYSRHYTHMIA Blood Pressure : */* mmHG Vent. Rate : 111 BPM Atrial Rate : 111 BPM P-R Int : 172 ms QRS Dur : 88 ms QT Int : 346 ms P-R-T Axes : 66 33 58 degrees QTcB Int : 470 ms Sinus tachycardia Septal infarct (cited on or before 20-Feb-2013) Abnormal ECG When compared with ECG of 23-Mar-2024 07:51, Vent. rate has increased by 40 bpm Serial changes of Septal infarct Present Confirmed by JOSIE KAISER, CHARLOTTE ([id number]), tape editor JAIMEE ROMERO ([id number]) on 03/09/2025 10:32:21 AM Referred By: Confirmed By: CHARLOTTE GALINDO MD
--- OUTSIDE RECORDS SUMMARY | 2025-03-06 05:32 | XMS RPT_ITS | CCD ---
Author Organization [facility] Care Team Providers Care Bike Designer Name Role Phone Lizbeth Pool MD Primary Care Provider Natasha Ray MD Unavailable [phone] Isaias KAISER, Vonnie Unavailable Dr. Rodney Pool Primary Care Provider Dr. Rodney Pool Referring Provider [phone] Nurse, Surgery Attending Provider Unavailable Dr. Bari Guzman Attending Provider [phone] Dr. Grant Obrien Attending Provider [phone] Abundio Fu Attending Provider [phone] Lizbeth Pool MD Primary Care Provider Natasha Ray MD Unavailable [phone] Vonnie Esparza MD Unavailable [phone] Rodney Pool Primary Care Provider Dr. Rodney Pool Referring Provider [phone] Dr. Bari Guzman Attending Provider [phone] Dr. Grant Obrien Attending Provider [phone] DARREN Granado Attending Provider [phone] Dr. Abundio Fu Other Provider [phone] Lizbeth Pool MD Primary Care Provider Natasha Ray MD Unavailable Benigno RN, Shira Unavailable Unavailable STEVIE VIEYRA, LIZBETH Primary Care Unavail able PHYSICIAN, NOT RECORDED Attending UnavailLizbeth Garcia MD Unavailable Elisabet Tapia DO Unavailable Ibrahima CASTILLO, Mary Grace Unavailable Unavailabl e Kevin CASTILLO, Sen Unavailable Dr. Rodney Pool Primary Care Provider [phone] Dr. Rodney Pool Referring Provider Dr. Abundio Fu Attending Provider Dr. Yaniv Buenrostro Emergency Provider Dr. Mehran Dodd Admit Provider Dr. Mehran Dodd Attending Provider Dr. Mehran Dodd Other Provider Dr. Britton Dixon Attending Provider Dr. Britton Dixon Other Provider Dr. Richard Schroeder Attending Provider Dr. Richard Schroeder Other Provider Dr. Nnamdi Choi Other Provider Dr. Jazmin Edgar Attending Provider Dr. Jazmin Edgar Other Provider Dr. Jacky Del Valle Other Provider González ZAMBRANO, Jenna Unavailable Shorty KAISER, Shay Muñoz Unavailable Lizbeth Pool MD Unavailable Kevin CASTILLO, Sen Unavailable Dandre CASTILLO, Hilda Unavailable Unavailable Franco [facility], Sarah Unavailable Dr. Rodney Pool Primary Care Provider Dr. Rodney Pool Referring Provider Dr. Bari Guzman Attending Provider Dr. Grant Obrien Attending Provider DARREN Granado Attending Provider Dr. Abundio Fu Attending Provider Tank, Dr. Del Castillo Other Provider Dr. Yaniv Buenrostro Emergency Provider Dr. Mehran Dodd Admit Provider Dr. Mehran Dodd Attending Provider Dr. Mehran Dodd Other Provider Dr. Britton Dixon Attending Provider Dr. Britton Dixon Other Provider Dr. Richard Schroeder Attending Provider Dr. Richard Schroeder Other Provider Dr. Jazmin Edgar Referring Provider Dr. Nnamdi Choi Other Provider Dr. Jazmin Edgar Attending Provider Dr. Jazmin Edgar Other Provider Dr. Jacky Del Valle Other Provider Lizbeth Pool MD Unavailable Elisabet Tapia DO Unavailable Ibrahima CASTILLO, [facility] Unavailable Unavailabl e Lzibeth Pool MD Primary Care Provider Natasha Ray MD Unavailable Vonnie Esparza MD Unavailable Sen Brown RN Unavailable Jenna Claudio PA-C Unavailable Shorty KAISER, Shay Muñoz Unavailable Lizbeth Pool MD Unavailable Dr. Rodney Pool Primary Care Provider Dr. Rodney Pool Referring Provider Dr. Bari Guzman Attending Provider Dr. Grant Obrien Attending Provider Dr. Rodney Pool Primary Care Provider Dr. Rodney Pool Referring Provider DARREN Granado Attending Provider Dr. Grant Obrien Attending Provider Sen Brown RN Unavailable Unavailable Primary Care Provider Unavailabl Greg Collins MD Primary Care Provider AJLEN LIRIANO Referring Unavailable PROVIDER, UNKNOWN Attending Unavailable PROVIDER, UNKNOWN Admitting Unavailable PROVIDER, UNKNOWN Attending Unavailable PROVIDER, UNKNOWN Admitting Unavailable Claudio PAYanaC, Jenna Unavailable Lizbeth Pool MD Primary Care Provider González ZAMBRANO, Jenna Unavailable González ZAMBRANO, Jenna Unavailable Isaias KAISER, Vonnie Unavailable Dr. Rodney Pool Primary Care Provider Dr. Rodney Pool Referring Provider Dr. Bari Guzman Attending Provider Dr. Grant Obrien Attending Provider Dr. Greg Abrams Primary Care Provider Dr. Greg Abrams Referring Provider Jenna Claudio PA-C Unavailable Greg Abrams MD Primary Care Provider Natasha Ray MD Unavailable Lizbeth Pool MD Primary Care Provider Sen Brown RN Unavailable Jenna Claudio PA-C Unavailable Hilda Amos RN Unavailable Unavailable Sarah Gamez RPh Unavailable GREG ABRAMS Primary Care Unavailable JOAN LOUIS Attending Unavailable GREG ABRAMS Primary Care Unavailable JOAN LOUIS Attending Unavailable Tripathi LEARNING DISABILITIES TEACHER.PANEL ASSEMBLER, Luana Unavailable Abby LEARNING DISABILITIES TEACHER.ALMOND ROASTER, Delaney Unavailable Abby LEARNING DISABILITIES TEACHER.ALMOND ROASTER, Delaney Monet Unavailable Abby LEARNING DISABILITIES TEACHER.ALMOND ROASTER, Delaney Unavailable Abby LEARNING DISABILITIES TEACHER.ALMOND ROASTER, Delaney Unavailable Isai KAISER, Dr. Greg Walter Primary Care Provider Dr. Kevon No DO Attending Provider Dr. Kevon No DO Emergency Provider Isai KAISER, Dr. Greg Walter Referring Provider Haley Mendieta Attending Provider Micah KAISER, Dr. Burns Attending Provider Luther KAISER, Dr. Oneal Attending Provider Luther KAISER, Dr. Oneal Referring Provider Kaya KAISER, Jose Armando Attending Provider Jose Armando Kirkpatrick MD Emergency Provider Porter KAISER, Dr. Purvis Emergency Provider Abby LEARNING DISABILITIES TEACHER.ALMOND ROASTER, Delaney Unavailable Tripathi LEARNING DISABILITIES TEACHER.PANEL ASSEMBLER, Luana Unavailable Tripathi LEARNING DISABILITIES TEACHER.PANEL ASSEMBLER, Luana Unavailable Dr. Greg Abrams MD Primary Care Provider Dr. Greg Abrams MD Referring Provider Toni Quintana MD Attending Provider Dr. Russell Anthony MD Emergency Provider Unavailab le Unavailable Primary Care Provider UnavailDr. Greg Mascorro MD Primary Care Physician Gabrielle KAISER, Dr. Oro Attending Physician Unavaila angelina Anthony MD, Dr. Oro Emergency Department Physici an Unavailable Alf KAISER, Dr. Lakhani Attending Physician Dr. Lesvia Milner MD Referring Provider Dr. Greg Abrams MD Referring Provider Maryse Katz Attending Physician [phone] Jayleen Cerna Attending Physician [phone] Micah KAISER, Dr. Burns Attending Physician [phone] SUKHJINDER GRIFFITH Attending Unavailable ANASTACIO ABRAMS Referring Unavailable EMI BARBOZA Attending Unava ilable Grant Obrien Attending Unavailable Greg Abrams Primary Care Unavailable Grant Obrien Attending Unavailable Greg Abrams Primary Care Unavailable Greg Abrams Primary Care Unavailable Jayleen Mazariegos Attending Unavailable Greg Abrams Referring Unavailable End: 10-21-2024 Tobacco use and exposure Smokeless tobacco non-user [facility] Work Phone: Start: 03-17-2021 End: 12-29-2024 Alcohol intake Current non-drinker of alcohol (finding) [facility] Start: 02-21-2017 Tobacco Comment angelica [facility] Start: 1955 Sex Assigned At Not on file C [facility] Start: 11-23-2020 End: 03-19-2022 Exposure to SARS-CoV-2 (event) Not sure [facility] Start: 07-24-2021 End: 11-26-2022 Tobacco smoking status NHIS Unknown if ever smoked [facility] Start: 08-04-2020 Alone [facility] Start: 1955 Sex Assigned At Female [facility] Start: 10-08-2021 End: 10-18-2021 Exposure to SARS-CoV-2 (event) Unable to assess [facility] Work Phone: Start: 06-02-1987 End: 10-21-2024 Tobacco smoking status NHIS Smokes tobacco daily [facility] Start: 02-08-2022 History SDOH Financial 5 [facility] Start: 02-08-2022 History SDOH Food Worry 1 [facility] Start: 02-08-2022 History SDOH Transpo rt Med 2 [facility] Start: 10-15-2022 End: 02-04-2024 Tobacco use panel [facility] Start: 03-16-2012 End: 03-09-2022 How hard is it for you to pay for the very basics like food, housing, medical care, and heating Not hard at all [facility] (I/We) worried mary grace er (my/our) food would run out before (I/we) got money to buy more. Never true [facility] In the past 12 month s, was there a time when you were not able to pay the mortgage or rent on time? No [facility] Start: 12-07-2017 None [facility] Start: 12-08-2017 Cigarettes [facility] Start: 02-15-2021 End: 03-17-2021 Exposure to SARS-CoV-2 (event) Yes [facility] Start: 07-25-2024 End: 11-27-2024 Tobacco smoking status NHIS Current Light tobacco smoker [facility] Start: 03-09-2022 End: 07-25-2024 Sex Female (finding) [facility] Start: 10-21-2024 Tobacco Comment 04/18ppd 10/21/2024 [facility] Medical Equipment Procedure Code Equipment Code Equipment Origin al Text Equipment Identifier Dates Kyphoplasty TOÑITO KYPHO AUTOPLEX FDA S tart: 08-11-2021 Kyphoplasty TOÑITO KYPHO AUTOPLEX FDA S tart: 08-11-2021 Kyphoplasty TOÑITO KYPHO AUTOPLEX FDA S tart: 08-11-2021 Kyphoplasty TOÑITO KYPHO AUTOPLEX FDA S tart: 08-11-2021 Kyphoplasty TOÑITO KYPHO AUTOPLEX FDA S tart: 08-11-2021 Kyphoplasty TOÑITO KYPHO AUTOPLEX FDA S tart: 08-11-2021 Kyphoplasty TOÑITO KYPHO AUTOPLEX FDA S tart: 08-11-2021 Kyphoplasty TOÑITO KYPHO AUTOPLEX FDA S tart: 08-11-2021 Kyphoplasty TOÑITO KYPHO AUTOPLEX FDA S tart: 08-11-2021 Kyphoplasty TOÑITO KYPHO AUTOPLEX FDA S tart: 08-11-2021 Kyphoplasty TOÑITO KYPHO AUTOPLEX FDA S tart: 08-11-2021 Kyphoplasty TOÑITO KYPHO AUTOPLEX FDA S tart: 08-11-2021 Kyphoplasty Orthopaedic ceme nt, non-antimicrobial [id number] FDA Start: 09-21-2022 Kyphoplasty TOÑITO KYPHO AUTOPLEX FDA S tart: 08-11-2021 Kyphoplasty TOÑITO KYPHO AUTOPLEX FDA S tart: 08-11-2021 Kyphoplasty TOÑITO KYPHO AUTOPLEX FDA S tart: 08-11-2021 Kyphoplasty TOÑITO KYPHO AUTOPLEX FDA S tart: 08-11-2021 Kyphoplasty TOÑITO KYPHO AUTOPLEX FDA S tart: 08-11-2021 Kyphoplasty TOÑITO KYPHO AUTOPLEX FDA S tart: 08-11-2021 Kyphoplasty TOÑITO KYPHO AUTOPLEX FDA S tart: 08-11-2021 Kyphoplasty TOÑITO KYPHO AUTOPLEX FDA S tart: 08-11-2021 Kyphoplasty TOÑITO KYPHO AUTOPLEX FDA S tart: 08-11-2021 Kyphoplasty TOÑITO KYPHO AUTOPLEX FDA S tart: 08-11-2021 Kit Advanix Jacinto flex 5fr Straight Polymer 3cm Stent Rapid Exchange Pusher - [id number] Start: 08-02-2020 Kit Endovive 20f r Standard [place] Silicone Peg Pull Method Fenestrate - [id number] Start: 08-09-2020 Catheter Skater Choice Lock 14fr Pigtail Curve Slip-Coat Polyurethane 25cm - [id number] Start: 01-15-2022 Goals Date Patient Goal Desired Activity /State Personal health goal Functional Status Date Assessment Result Facility 02-01-2025 Functional status [facility] 02-01-2025 [facility] Work Phone: 02-09-2022 Are you deaf, or do you have serious difficulty hearing No 02/09/2022 3:38 PM Shira Curtis, JONATHAN [facility] 02-09-2022 Are you blind, or do you have serious difficulty seeing, even when wearing glasses No 02/09/2022 3:38 PM Shira Curtis RN [facility] 10-28-2022 Do you have serious difficulty walking or climbing stairs No 02/09/2022 3:38 PM EDT Shira Albert, JONATHAN No [facility] 02-09-2022 Do you have difficul ty dressing or bathing No 02/09/2022 3:38 PM EDT Shira Albert, RN No [facility] 02-01-2022 Functional status [facility] Work Phone: 01-09-2022 Because of a physica l, mental, or emotional condition, do you have difficulty doing errands alone such as visiting a physician's office or shopping No 01/09/2022 12:23 PM EDT Virginia Frankel, JONATHAN No [facility] Mental Status Date Assessment Result Facility 09-21-2022 Cognitive function Voice/Name [facility] Work Phone: 02-09-2022 Because of a physica l, mental, or emotional condition, do you have serious difficulty concentrating, remembering, or making decisions Yes 02/09/2022 3:38 PM EDT Shira Albert, JONATHAN Yes [facility] 02-01-2022 Cognitive function Voice/Name [facility] Work Phone: 12-28-2021 Cognitive function Voice/Name [facility] Work Phone: 11-06-2021 Cognitive function Level Of Cons ciousness Awake;Alert;Appropriate;Fol lows Commands [facility] Work Phone: 10-23-2021 Cognitive function Level Of Cons ciousness Awake;Alert;Appropriate;Fol lows Commands [facility] Work Phone: 08-11-2021 Cognitive function Voice/Name [facility] Work Phone: Clinical Notes 06-27-2015 to 02-16-2025 Emi Torrez MD - 02/01/2025 1:00 PM EDT Note Date & Type Note Facility 02-16-2025 Note [facility] 02-09-2025 Note [facility] 02-02-2025 Note [facility] 02-01-2025 History of Present illness Narrative Subjective David Berg is a 69 y.o. female who presents for the following: Suspicious Skin Lesion (Upper back/shoulders lesions, left thigh lesion, left medial knee lesion, right lower leg lesion, right thigh lesion and b/l elbow lesions. Personal history of squamous cell carcinoma. Customer Sales Service Manager offered and declined. ). Review of Systems: No other skin or systemic complaints other than what is documented elsewhere in the note. The following portions of the chart were reviewed this encounter and updated as appropriate: Allergies Meds Problems Med Hx Surg Hx Fam Hx Skin Cancer History Biopsy Log Book No skin cancers from Specimen Tracking. Additional History SCCis, right buttocks- 9.25 s/p MOHS Dr. Griffith Objective Well appearing patient in no apparent distress; mood and affect are within normal limits. A full examination was performed including scalp, face, neck, chest, abdomen, back, bilateral upper extremities, bilateral lower extremities, buttocks. Patient's scalp and ears were not examined. The patient declines removal of the bra today and declines examination of the areas beneath the bra and these areas (portions of the breasts/chest/back) were not examined. Patient declines exam lower abdomen/mons pubis, groin, genitalia, perineal and perianal skin and these areas were not examined with the exception of the scar site that patient DID request examined on the R medial buttock. All findings within normal limits unless otherwise noted below. Assessment/Plan Skin Exam 1. ACTINIC KERATOSIS (2) Left Elbow - Posterior, Right Lower Leg - Anterior Erythematous scaly macule(s) -Discussed nature of diagnosis and treatment options. -Patient wishes to proceed with Cryotherapy today -Possible side effects of liquid nitrogen treatment reviewed including formation of blisters, crusting, tenderness, scar, and discoloration which may be permanent. -Patient advised to return the office for re-evaluation if the treated lesion(s) do not resolve within 4-6 weeks. Patient verbalizes understanding. - Destr of lesion - Left Elbow - Posterior, Right Lower Leg - Anterior Complexity: simple Destruction method: cryotherapy Informed consent: discussed and consent obtained Lesion destroyed using liquid nitrogen: Yes Outcome: patient tolerated procedure well with no complications Post-procedure details: wound care instructions given 2. MULTIPLE BENIGN NEVI Generalized Brown and contreras macules and papules with reassuring findings on dermoscopy -These lesions have benign, reassuring patterns on dermoscopy -Recommend continued self observation, and to contact the office if any changes in nevi are noticed 3. LENTIGO Generalized Contreras macules -Benign appearing on exam -Reassurance, recommend observation 4. SEBORRHEIC KERATOSIS Generalized Stuck on, waxy macule(s)/papule(s)/plaque(s) with comedo-like openings and milia like cysts -Discussed the nature of the diagnosis -Reassurance, recommend continued observation 5. HEMANGIOMA OF SKIN Generalized Hood red papules -Discussed the nature of the diagnosis -Reassurance, recommend continued observation 6. PERSONAL HISTORY OF SKIN CANCER Generalized Personal History of Non-Melanoma Skin Cancer, SCCis R medial buttock, December 2024 -Well healed scar(s) with no evidence of recurrence -Discussed the need for annual or semi-annual skin examinations and to return sooner if any new or changing lesions are noticed. Patient verbalizes understanding 7. DERMATOLOGIC PROBLEM This Visit - Follow Up In Dermatology Discussed/information given on safe sun practices and use of sunscreen, sun protective clothing or sun avoidance. Recommend to use over the counter medication of sunscreen with a SPF 30 or higher on a daily basis prior to sun exposure to reduce the risk of skin cancer. Follow up in 6 months for FSE Discussed if there are any changes or development of concerning symptoms (lesion/skin condition is changing, bleeding, enlarging, or worsening) the patient is to contact my office. The patient verbalizes understanding. Emi Torrez MD 02/01/2025 documented in this encounter [facility] Work Phone: 01-22-2025 Note [facility] 01-13-2025 Note [facility] 01-12-2025 Note [facility] 01-12-2025 Note [facility] 01-08-2025 Evaluation note Diagnosis Onset Date Resolution C. difficile colitis inactive Dec 2:53pm Non-specific colitis noneactive Dec 2:53pm [facility] Work Phone: 1(791) 390-687109-26-2025 Evaluation note* Diagnosis Onset Date Resolution Status Admit Date C. difficile colitis inactive Dec 2:53pm Non-specific colitis noneactive Dec 2:53pm Forgetfulness acute January 12:45pm Frequent falls acute January 12:45pm Hand cramps acute January 19, 2025 12:45pm Right hand pain acute January 192024 12:45pm [facility] Work Phone: [phone] 557-917009-26-2025 [facility] [address] [place] [address] OFFICE VISIT Date of Service: 01/08/25 MR#: [id number] Acct: [id number] Name: DAVID BERG Rep #: [id number] : 1955 Provider: DARREN Joyce Age/Sex: 69/F Location: [facility] [place] Status: Signed Intake Vital Signs 11/27/24 16:11 Height 5 ft 4 in Intake Visit Reasons: Colitis Chief Complaint: C. difficile infection Biopsychologist Required: No Accompanied by: Self Is patient in pain?: No Allergies bupropion Allergy (Verified 01/08/25 14:59) Other codeine Allergy (Verified 01/08/25 14:59) Hives Environmental Allergies: Uncoded (pine) Allergy (Verified 01/08/25 14:59) Hives gabapentin Allergy (Verified 01/08/25 14:59) Other oxaprozin (From Daypro) Allergy (Verified 01/08/25 14:59) Hives oxybutynin Allergy (Verified 01/08/25 14:59) Unknown oxycodone Allergy (Verified 01/08/25 14:59) Itching pentazocine (From Talwin) Allergy (Verified 01/08/25 14:59) Itching pentazocine lactate (From Talwin) Allergy (Verified 01/08/25 14:59) Itching propoxyphene HCl (From Darvon) Allergy (Verified 01/08/25 14:59) Hives propoxyphene napsylate (From Darvocet-N 100) Allergy (Verified 01/08/25 14:59) Hives rofecoxib (From Vioxx) Allergy (Verified 01/08/25 14:59) Rash tramadol HCl (From Ultram) Allergy (Verified 01/08/25 14:59) Upset Stomach cyclobenzaprine HCl (From Flexeril) Adverse Reaction (Verified 01/08/25 14:59) Upset Stomach hydrocodone Adverse Reaction (Verified 01/08/25 14:59) Other venlafaxine HCl (From Effexor) Adverse Reaction (Verified 01/08/25 14:59) Upset Stomach Medications ?Medication ?Instructions ?Recorded ?Confirmed ?Type alprazolam 1 mg tablet (Xanax) 1 mg PO BID mood 01/08/25 History Held on 02/01/22. Instructions: Resume on 02/14/22. Please discuss with your care physician for his resuming this medication rizatriptan 10 mg tablet 10 mg PO PRN PRN Migraine He adache 05/06/17 01/08/25 History magnesium oxide 400 mg (241.3 mg 400 mg PO DAILY SUPPL EMENT 08/04/20 01/08/25 History magnesium) tablet abatacept 125 mg/mL subcutaneous 125 mg subcut FR [facility] with 07/28/21 01/08/25 History syringe primary doctor Held on 02/01/22. Instructions: Resume on 02/14/22. You are on antibiotics for an infection that he had in your abdomen, this medication has been held. Please discuss with your primary care physician to determine when it is appropriate to resume this medication albuterol sulfate 2.5 mg/3 mL 3 mg inhalation Q4H PRN PRN 08/11/21 01/08/25 History (0.083 %) solution for nebulization Wheezing ergocalciferol (vitamin D2) 1,250 1,250 mcg PO FR SUPP LEMENT 01/05/22 01/08/25 History mcg (50,000 unit) capsule (Vitamin D2) ropinirole 1 mg tablet 1 mg PO QHS RLS 01/05/22 History cyanocobalamin (vitamin B-12) 500 1,000 mcg (2 x 500 m cg) PO 02/01/22 01/08/25 Rx mcg tablet BREAKFAST 30 days #60 tabs folic acid 1 mg tablet 1 mg PO BREAKFAST 30 days #3 0 tabs 10/20/22 09/26/25 Rx [id number] See Rx Instructions .Route 1 01/08/25 Rx 6,000-19,000-30,000 unit .COMPLEX 30 days #150 caps capsule,delayed rel (Creon) apremilast 30 mg tablet (Otezla) 30 mg PO BID 04/23/24 01/08/25 History budesonide-formoterol HFA 80 inhalation 04/23/2401/08 History mcg-4.5 mcg/actuation aerosol inhaler (Symbicort) albuterol sulfate 90 mcg/actuation 2 puff inhalation Q 4 PRN wheezing 07/31/24 01/08/25 History aerosol inhaler polyethylene glycol 3350 17 17 g PO DAILY 07/31/24 History gram/dose oral powder (Miralax) quetiapine 200 mg tablet 200 mg PO QHS RLS 07/31/24 0 01/08/25 History vancomycin 125 mg capsule 125 mg PO Q6H 10 days #40 ca ps 11/28/24 01/08/25 Rx atorvastatin 10 mg tablet (Lipitor) 10 mg PO QDAY 12/1501/08/25 History dicyclomine 10 mg capsule 10 mg PO BID #30 caps 01/08/25 Rx nitroglycerin 0.4 mg sublingual 0.4 mg sublingual Q5M PRN 01/08/25 01/08/25 History tablet Have you fallen in the past year?: Yes [facility] Medical History Uses feeding tube Chronic pancreatitis Severe protein-calorie malnutrition History of pneumonia Weakness Adult failure to thrive Marijuana use Restless legs Psoriasis Easy bruising Hepatitis Shortness of breath on exertion Nicotine dependence Chest pain Wears dentures Wears hearing aid Arthritis Anemia High cholesterol Back pain Injury of back Migraine headache Injury of head and neck Syncope Former smoker COPD (chronic obstructive pulmonary disease) Broken back Leg cramps History of echocardiogram History of stress test Cardiology follow-up encounter History of irregular heartbeat Hx of fracture of nose Personality disorder Osteoporosis Migraines DDD (degenerative disc disease), cervical Cochlear implant in place Bulimia Hepatitis C Calculus of gallbladder without cholecystitis without obstruction Abnormal findings on diagnostic imaging of liver and biliary tract Abnormal weight loss Steatorrhea, pancreatic Severe protein-calorie malnutrition Pancreatic duct stricture Idiopathic chronic pancreatitis Rheumatoid arthritis Anxiety Latent tuberculosis TIA (transient ischemic attack) Surgical History History of ERCP History of kyphoplasty History of nasal surgery History of repair of cleft lip History of colonoscopy History of rotator cuff surgery History of mandibular surgery Hx of LASIK Hx of neck surgery History of back surgery Hx of tubal ligation History of tracheostomy History of bladder surgery H/O section History of cochlear implant Hx of cholecystectomy Family History Mother CVA (cerebral vascular accident) Hypertension Father Cancer Diabetes Sister Thyroid disorder Social History Smoking Status: Light Smoker (<10/day) alcohol intake: never substance use type: does not use HPI HPI Chief Complaint: C. difficile infection Details: DAVID BERG, is a 69 F who presents to the office today for follow-up. I Established in 2021 for management of pancreatic duct stricture. Patient with past medical history of pancreatitis. ERCP in the past and developed abdominal abscess. [facility] with abdominal pain and diarrhea. 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 Patient gets that shaved off . CBC with mild leukocytosis and normal hemoglobin. CMP without abnormalities. CT showing segmental colitis of the rec tosigmoid colon. Stool studies positive for C. difficile. Patient started on oral vancomycin for 10days. CT abdomen pelvis 11.27.24 segmental colitis of the rectosigmoid colon. PCP . for diarrhea similar to when she had C. difficile a month prior. Stool testing was again positive with toxin. She was started on vancomycin 125 4 times a day for [address] abdomen pelvis ..25Persistent but slightly improved long-segment sigmoid colonic wall thickening, most consistent with resolving infectious/inflammatory colitis given interval improvement since 11/27/2024. OV ..25 patient continues to have loose bowel movements up to 8 times per day. She has left-sided cramping abdominal pain. Patient does not believe that she has ever had C. difficile in the past. She denies recent history of antibiotic use besides vancomycin. She was started on vancomycin on [id number] and has been taking it since. CT abdomen pelvis was improving. ROS Const Constitutional: Positive for fatigue, fever(s), frequent falls, headache(s), weakness and weight change (loss) ENT ENT: Positive for headache(s); No difficulty swallowing Gastro GI: Positive for abdominal pain, bloating, change in bowel habits, constipation,diarrhea, Blood in stool, nausea/dyspepsia and vomiting; No belching, coffee ground emesis, cramping, heartburn, difficulty swallowing, feeling full early, excessive flatus, incontinent of stools, loose stools, Black,tarry stools, pain with swallowing or other Musc Musculoskeletal: Positive for abnormal gait, joint pain, back pain, joint swelling, muscle cramps, muscle weakness, numbness, stiffness, tingling, Arthritis, restless legs and leg pain at night Skin Skin: Positive for dry skin, lesions, itchy eyes and rash; No yellowing of the eye Neuro Neurology: Positive for abnormal gait, dizziness, weakness, frequent falls, headache(s), numbness, tingling, restless legs and seizures (petimal) Psych Psychiatric: Positive for anxiety, No depression and Positive for inattentiveness Endo Endocrine: Positive for fatigue and weight change (loss) Aller/Imm Allergy/Immunologic: Positive for itchy eyes Javier/Lymp Hematologic/Lymphatic: Positive for easy bruising; No easy bleeding Exam Const General: cooperative Nutritional Appearance: thin Orientation: alert [facility] Head: normal to inspection Eyes General: appearance normal, both eyes and all related structures Neck Neck: normal visual inspection Chest Chest palpation & inspection: normal inspection of the chest Resp Effort & Inspection: normal respiratory effort GI Inspection: normal to inspection Assessment and Plan Assessment and Plan (1) Non-specific colitis: (2) C. difficile colitis: Status: Inactive Plan: Shira is a 69-year-old male patient with past medical history of chronic pancreatitis and recent C. difficile infection. Patient was diagnosed with C. difficile in November 2024 and was started on a 10-day course of vancomycin. She finished the course and was doing well up until mid December when she again developed diarrhea. Patient was seen by her primary care provider and C. difficile PCR andtoxin was positive yet again. CT abdomen pelvis showed improving colitis. CBC was without leukocytosis and CMP was within normal limits. She was started on another course of vancomycin for 10 days. Patient currently still on vancomycin. She continues to have loose bowel movements up to 8 times per day and left-sided abdominal pain. I recommended she complete the course of vancomycin. I have provided a prescription for dicyclomine for her to take for her abdominal pain. She will follow-up in 1 month or call us ifsymptoms do not resolve. Following her appointment in 1 month we will schedule herfor colonoscopy. - Continue vancomycin - Follow-up in 1 month or call our office if symptoms persist - Dicyclomine as needed for abdominal pain - Colonoscopy will be scheduled at 1 month follow-up. Medications: New dicyclomine 10 mg PO BID 30 caps 2RF Coding Level of Care Code Off vis,est,level 4 Diagnoses Non-specific colitis K52.9 C. difficile colitis A04.72 Clinical Quality Measures Falls Risk Screening/Assistive Devices Have you fallen in the past year?: Yes 01/08/25 1536 sov DARREN> Date _ Marsye BANKS Cosigner Signature: Date (if applicable) CC: ~ [facility]09-26-2025 Progress note Author Maryse Vasquez [facility] Note Date/Time January 08, 2025 3:20pm [facility] [address] [place] [address] OFFICE VISIT Date of Service: 01/08/25 MR#: [id number] Acct: [id number] Name: DAVID BERG Rep #: [id number] : 1955 Provider: DARREN Joyce Age/Sex: 69/F Location: [facility] Status: Signed Intake Vital Signs 11/27/24 16:11 Height 5 ft 4 in Intake Visit Reasons: Colitis Chief Complaint: C. difficile infection Biopsychologist Required: No Accompanied by: Self Is patient in pain?: No Allergies bupropion Allergy (Verified 01/08/25 14:59) Other codeine Allergy (Verified 01/08/25 14:59) Hives Environmental Allergies: Uncoded (pine) Allergy (Verified 01/08/25 14:59) Hives gabapentin Allergy (Verified 01/08/25 14:59) Other oxaprozin (From Daypro) Allergy (Verified 01/08/25 14:59) Hives oxybutynin Allergy (Verified 01/08/25 14:59) Unknown oxycodone Allergy (Verified 01/08/25 14:59) Itching pentazocine (From Talwin) Allergy (Verified 01/08/25 14:59) Itching pentazocine lactate (From Talwin) Allergy (Verified 01/08/25 14:59) Itching propoxyphene HCl (From Darvon) Allergy (Verified 01/08/25 14:59) Hives propoxyphene napsylate (From Darvocet-N 100) Allergy (Verified 01/08/25 14:59) Hives rofecoxib (From Vioxx) Allergy (Verified 01/08/25 14:59) Rash tramadol HCl (From Ultram) Allergy (Verified 01/08/25 14:59) Upset Stomach cyclobenzaprine HCl (From Flexeril) Adverse Reaction (Verified 01/08/25 14:59) Upset Stomach hydrocodone Adverse Reaction (Verified 01/08/25 14:59) Other venlafaxine HCl (From Effexor) Adverse Reaction (Verified 01/08/25 14:59) Upset Stomach Medications ?Medication ?Instructions ?Recorded ?Confirmed ?Type alprazolam 1 mg tablet (Xanax) 1 mg PO BID mood 01/08/25 History Held on 02/01/22. Instructions: Resume on 02/14/22. Please discuss with your care physician for his resuming this medication rizatriptan 10 mg tablet 10 mg PO PRN PRN Migraine He adache 05/06/17 01/08/25 History magnesium oxide 400 mg (241.3 mg 400 mg PO DAILY SUPPL EMENT 08/04/20 01/08/25 History magnesium) tablet abatacept 125 mg/mL subcutaneous 125 mg subcut FR [facility] with 07/28/21 01/08/25 History syringe primary doctor Held on 02/01/22. Instructions: Resume on 02/14/22. You are on antibiotics for an infection that he had in your abdomen, this medication has been held. Please discuss with your primary care physician to determine when it is appropriate to resume this medication albuterol sulfate 2.5 mg/3 mL 3 mg inhalation Q4H PRN PRN 08/11/21 01/08/25 History (0.083 %) solution for nebulization Wheezing ergocalciferol (vitamin D2) 1,250 1,250 mcg PO FR SUPP LEMENT 01/05/22 01/08/25 History mcg (50,000 unit) capsule (Vitamin D2) ropinirole 1 mg tablet 1 mg PO QHS RLS 01/05/22 History cyanocobalamin (vitamin B-12) 500 1,000 mcg (2 x 500 m cg) PO 02/01/22 01/08/25 Rx mcg tablet BREAKFAST 30 days #60 tabs folic acid 1 mg tablet 1 mg PO BREAKFAST 30 days #3 0 tabs 02/01/22 01/08/25 Rx chvmqk-srxbrimt-ktixojn See Rx Instructions .Route 1 01/08/25 Rx 6,000-19,000-30,000 unit .COMPLEX 30 days #150 caps capsule,delayed rel (Creon) apremilast 30 mg tablet (Otezla) 30 mg PO BID 04/23/24 01/08/25 History budesonide-formoterol HFA 80 inhalation 04/23/2401/08 History mcg-4.5 mcg/actuation aerosol inhaler (Symbicort) albuterol sulfate 90 mcg/actuation 2 puff inhalation Q 4 PRN wheezing 07/31/24 01/08/25 History aerosol inhaler polyethylene glycol 3350 17 17 g PO DAILY 07/31/24 History gram/dose oral powder (Miralax) quetiapine 200 mg tablet 200 mg PO QHS RLS 07/31/24 0 01/08/25 History vancomycin 125 mg capsule 125 mg PO Q6H 10 days #40 ca ps 11/28/24 01/08/25 Rx atorvastatin 10 mg tablet (Lipitor) 10 mg PO QDAY 12/1501/08/25 History dicyclomine 10 mg capsule 10 mg PO BID #30 caps 01/08/25 Rx nitroglycerin 0.4 mg sublingual 0.4 mg sublingual Q5M PRN 01/08/25 01/08/25 History tablet Have you fallen in the past year?: Yes PFSH Medical History Uses feeding tube Chronic pancreatitis Severe protein-calorie malnutrition History of pneumonia Weakness Adult failure to thrive Marijuana use Restless legs Psoriasis Easy bruising Hepatitis Shortness of breath on exertion Nicotine dependence Chest pain Wears dentures Wears hearing aid Arthritis Anemia High cholesterol Back pain Injury of back Migraine headache Injury of head and neck Syncope Former smoker COPD (chronic obstructive pulmonary disease) Broken back Leg cramps History of echocardiogram History of stress test Cardiology follow-up encounter History of irregular heartbeat Hx of fracture of nose Personality disorder Osteoporosis Migraines DDD (degenerative disc disease), cervical Cochlear implant in place Bulimia Hepatitis C Calculus of gallbladder without cholecystitis without obstruction Abnormal findings on diagnostic imaging of liver and biliary tract Abnormal weight loss Steatorrhea, pancreatic Severe protein-calorie malnutrition Pancreatic duct stricture Idiopathic chronic pancreatitis Rheumatoid arthritis Anxiety Latent tuberculosis TIA (transient ischemic attack) Surgical History History of ERCP History of kyphoplasty History of nasal surgery History of repair of cleft lip History of colonoscopy History of rotator cuff surgery History of mandibular surgery Hx of LASIK Hx of neck surgery History of back surgery Hx of tubal ligation History of tracheostomy History of bladder surgery H/O section History of cochlear implant Hx of cholecystectomy Family History Mother CVA (cerebral vascular accident) Hypertension Father Cancer Diabetes Sister Thyroid disorder Social History Smoking Status: Light Smoker (<10/day) alcohol intake: never substance use type: does not use HPI HPI Chief Complaint: C. difficile infection Details: DAVID BERG, is a 69 F who presents to the office today for follow-up. [facility] Established in 2021 for management of pancreatic duct stricture. Patient with past medical history of pancreatitis. ERCP in the past and developed abdominal abscess. [facility] with abdominal pain and diarrhea. 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 Patient gets that shaved off . CBC with mild leukocytosis and normal hemoglobin. CMP without abnormalities. CT showing segmental colitis of the rectosigmoid colon. Stool studies positive for C. difficile. Patient started on oral vancomycin for [address] abdomen pelvis 11.27.24 segmental colitis of the rectosigmoid colon. PCP 12.29.24 for diarrhea similar to when she had C. difficile a month prior. Stool testing was again positive with toxin. She was started on vancomycin 125 4 times a day for [address] abdomen pelvis 12.30.24Persistent but slightly improved long-segment sigmoid colonic wall thickening, most consistent with resolving infectious/inflammatory colitis given interval improvement since 11/27/2024. OV ..25 patient continues to have loose bowel movements up to 8 times per day. She has left-sided cramping abdominal pain. Patient does not believe that she has ever had C. difficile in the past. She denies recent history of antibiotic use besides vancomycin. She was started on vancomycin on the and has been taking it since. CT abdomen pelvis was improving. ROS Const Constitutional: Positive for fatigue, fever(s), frequent falls, headache(s), weakness and weight change (loss) ENT ENT: Positive for headache(s); No difficulty swallowing Gastro GI: Positive for abdominal pain, bloating, change in bowel habits, constipation,diarrhea, Blood in stool, nausea/dyspepsia and vomiting; No belching, coffee ground emesis, cramping, heartburn, difficulty swallowing, feeling full early, excessive flatus, incontinent of stools, loose stools, Black,tarry stools, pain with swallowing or other Musc Musculoskeletal: Positive for abnormal gait, joint pain, back pain, joint swelling, muscle cramps, muscle weakness, numbness, stiffness, tingling, Arthritis, restless legs and leg pain at night Skin Skin: Positive for dry skin, lesions, itchy eyes and rash; No yellowing of the eye Neuro Neurology: Positive for abnormal gait, dizziness, weakness, frequent falls, headache(s), numbness, tingling, restless legs and seizures (petimal) Psych Psychiatric: Positive for anxiety, No depression and Positive for inattentiveness Endo Endocrine: Positive for fatigue and weight change (loss) Aller/Imm Allergy/Immunologic: Positive for itchy eyes Javier/Lymp Hematologic/Lymphatic: Positive for easy bruising; No easy bleeding Exam Const General: cooperative Nutritional Appearance: thin Orientation: alert HEN[facility] Head: normal to inspection Eyes General: appearance normal, both eyes and all related structures Neck Neck: normal visual inspection Chest Chest palpation & inspection: normal inspection of the chest Resp Effort & Inspection: normal respiratory effort GI Inspection: normal to inspection Assessment and Plan Assessment and Plan (1) Non-specific colitis: (2) C. difficile colitis: Status: Inactive Plan: Shira is a 69-year-old male patient with past medical history of chronic pancreatitis and recent C. difficile infection. Patient was diagnosed with C. difficile in November 2024 and was started on a 10-day course of vancomycin. She finished the course and was doing well up until mid December when she again developed diarrhea. Patient was seen by her primary care provider and C. difficile PCR and toxin was positive yet again. CT abdomen pelvis showed improving colitis. CBC was without leukocytosis and CMP was within normal limits. She was started on another course of vancomycin for 10 days. Patient currently still on vancomycin. She continues to have loose bowel movements up to 8 times per day and left-sided abdominal pain. I recommended she complete the course of vancomycin. I have provided a prescription for dicyclomine for her to take for her abdominal pain. She will follow-up in 1 month or call us ifsymptoms do not resolve. Following her appointment in 1 month we will schedule her for colonoscopy. - Continue vancomycin - Follow-up in 1 month or call our office if symptoms persist - Dicyclomine as needed for abdominal pain - Colonoscopy will be scheduled at 1 month follow-up. Medications: New dicyclomine 10 mg PO BID 30 caps 2RF Coding Level of Care Code Off vis,est,level 4 Diagnoses Non-specific colitis K52.9 C. difficile colitis A04.72 Clinical Quality Measures Falls Risk Screening/Assistive Devices Have you fallen in the past year?: Yes 01/08/25 8245 <Electronically signed by Maryse BANKS> Date _ Maryse BANKS Cosigner Signature: Date (if applicable) CC: ~ [employer] [facility] Work Phone: [phone] 172-929909-18-2025 Radiology Diagnostic study note [facility] Imaging Services [address] [place] [address] Abdomen/Pelvis WITH Contrast MR#: [id number] Acct: [id number] Name: DAVID BERG Rep #: [id number] : 1955 F 69 From: Rolando Vann MD PCP: Dr. Greg Abrams MD Status: RE G CLI Study:Abdomen/Pelvis WITH Contrast Date of Ex am: 12/30/24 Exam# [id number] Ordering Dr: García Milner MD PROCEDURE: ABDOMEN/PELVIS WITH CONTRAST 12/30/2024 REASON FOR EXAM: LLQ ABD PAIN/INFX IN ABD TECHNIQUE: Procedure Code: [id number] Modality: CT Procedure: ABDOMEN/PELVIS WITH CONTRAST Coronal and Sagittal reconstruction series were provided. CONTRAST: Isovue-300 VOLUME: 98 mL One or more dose reduction techniques were used (e.g., Automated exposure control, adjustment of the mA and/or kV according to patient size, use of iterative reconstruction technique. RADIATION DOSE SUMMARY: CTDlvol: 13+ 13 mGy DLP: 624 mGycm COMPARISON: August 27, 2024. FINDINGS: The lung bases are clear. The peripheral soft tissues are unremarkable. Degenerative changes of thespine. T12 and L1 vertebroplasties. Moderate atherosclerosis. Normal caliber abdominal aorta. No suspicious lymphadenopathy. The liver is unremarkable. The gallbladder is surgically absent. The pancreatic duct measures up to 5 mm in diameter and is unchanged from the prior CT. The spleen, adrenals are unremarkable. Symmetric enhancement of the bilateral kidneys. The urinary bladder is unremarkable. Slightly decreased but still persistent long segment sigmoid colon wall thickening. The uterus is surgically absent. CT/Abdomen/Pelvis WITH Contrast IMPRESSION: Persistent but slightly improved long-segment sigmoid colonic wall thickening, most consistent withresolving infectious/inflammatory colitis given interval improvement since 11/27/2024. Stable mild pancreatic ductal dilatation (5 mm), most consistent with age-related/post-cholecystectomy change. No further immediate workup required in the absence of symptoms or abnormal labs. Reading Location: [facility] CC: Dr. Lesvia Milner MD; Dr. Greg Abrams MD ~ Fringing Machine Operator: Signed [facility]09-16-20[facility] History of Present illness Narrative* Lesvia Milner MD - 12/29/2024 12:46 PM EDT Reason for Visit Abdominal pain and diarrhea HPI David Berg is a 69-year-old female with a history of C. difficile infection and pancreatic disease, presenting with recurrent diarrhea, abdominal pain, and perianal ulcer related to a biopsy. David reports a recurrence of symptoms similar to a previous C. difficile infection treated in November with vancomycin. She describes significant flatulence, abdominal pain, and diarrhea with increased mucus content, noting, It's more like blowing bubbles, boom, a lot of gas. She also reports nausea, which was not present during her initial infection. She denies recent antibiotic use other than vancomycin for the initial C. difficile infection. David has a history of rectal cancer and underwent a procedure to remove cancerous tissue from her perianal skin a few weeks ago, resulting in an open sore. She reports significant pain when cleaningthe area due to the diarrhea and mucus. She is under the care of Dr. Griffith at [facility] and has a follow-up appointment on . She has been using pillows to alleviate discomfort when sitting and is concerned about the risk of infection due to the open sore. David also has a history of pancreatic disease and is taking Creon to aid digestion. She reports a lack of appetite and difficulty eating, stating, I can't eat. I do, I have to take 5 Creon pills todigest, but I have no appetite, none. She is making an effort to stay hydrated to avoid dehydration. David lives alone with two dogs and is responsible for caring for her 96-year-old mother, who is being discharged from rehab today. She expresses concern about her ability to care for her mother given her current health condition. SOCIAL HISTORY[1] Past medical history, appointments, medications, allergies reviewed. Pertinent Lab/Diagnostic Studies are reviewed and discussed today Current Outpatient Medications: iv contrast (will be provided with radiology test) enteric contrast (will be provided with radiology test) nitroglycerin sublingual (NITROQUICK) 0.4 mg SL tablet atorvastatin (LIPITOR) 40 mg tablet diclofenac, EC, (VOLTAREN) 75 mg EC tablet rOPINIRole (REQUIP) 1 mg tablet hydrOXYchloroQUINE (PLAQUENIL) 200 mg tablet budesonide-formoterol (SYMBICORT) 160-4.5 mcg/actuation inhaler cholecalciferol, Vitamin D3, (VITAMIN D3) 1,250 mcg (50,000 unit) cap capsule magnesium oxide (MAG-OX) 400 mg (241.3 mg magnesium) tablet mzpzxa-nyxrkexh-vbbekyb (CREON) 6,000-19,000 -30,000 unit delayed release capsule folic acid 1 mg tablet tiotropium bromide (SPIRIVA RESPIMAT) 2.5 mcg/actuation inhaler tiotropium bromide (SPIRIVA RESPIMAT) 2.5 mcg/actuation inhaler rizatriptan (MAXALT) 10 mg tablet omega-3 fatty acids 1,000 mg cap polyethylene glycol 3350 (MIRALAX) 17 gram/dose powder varenicline (CHANTIX) 1 mg tablet varenicline (CHANTIX) 0.5 mg tablet Blood Pressure Monitor (BLOOD PRESSURE KIT) FINGER PULSE OXIMETER [employer] albuterol HFA (VENTOLIN HFA) 90 mcg/actuation inhaler cyanocobalamin (VITAMIN B-12) 1,000 mcg tab [employer] omega 6-mrf-cgg-fish oil 1,000 mg (250 mg-750 mg)/5 mL liqd Nebulizers ALPRAZolam (XANAX) 1 mg tablet QUEtiapine (SEROQUEL) 100 mg tablet Current Facility-Administered Medications: Adult Home Parenteral Nutrition 3:1 Health Maintenance Shingrix Vaccine(1 of 2) RSV Vaccine(1 - Risk 60-74 years 1-dose series) Mammogram Screening Bone Density Screening Influenza Vaccine(1)@ Review Of Systems Constitutional: (+) loss of appetite, (+) generalized weakness Gastrointestinal: (+) diarrhea, (+) mucus in stool, (+) abdominal pain, (+) nausea, (+) flatulence,(+) rectal pain Skin: (+) perirectal ulcerated skin lesion with drainage Physical Exam BP 127/79 Pulse 74 Temp 36.4 C (97.5 F) (Oral) Resp 16 Wt 54.6 kg (120 lb 6.4 oz) SpO2 94% BMI 21.23 kg/m GENERAL: NAD, alert and oriented. SKIN: Unremarkable, no rash or skin lesions. HEAD: Normocephalic LUNGS: Clear to auscultation bilaterally, no wheezes/rhonchi/rales. HEART: Regular rate and rhythm, no murmurs. No ectopy. EXTREMITIES: Normal, no deformities, no skin discoloration, no edema. ABDOMEN: Soft, but tender to palpation, on the left lower quadrnat, unclear if rebound was present.increased bowel sounds. No NEURO: Awake, alert and oriented x3, cranial nerves II-XII grossly intact, normal gait, no involuntary motions. Assessment and Plan 1. Diarrhea, unspecified type (R19.7) 2. Left lower quadrant abdominal pain (R10.32) 3. H/O Clostridium difficile infection (Z86.19) Acute onset of diarrhea, increased flatus, abdominal pain, and nausea, with a history of C. difficile infection treated with vancomycin in November. High suspicion for recurrent C. difficile infection. - Ordered stool PCR for C. difficile and additional stool studies. - Ordered STAT CT abdomen to evaluate for other intra-abdominal pathology. - Ordered blood work. - Advised patient to maintain adequate hydration. - Instructed patient to avoid caring for her mother due to high risk of contagion if C. difficile is confirmed. - Advised patient to postpone spinal injections until C. difficile infection is ruled out. - Advised patient to withhold vancomycin until test results are available. 4. Infection in abdomen (HCC) (K65.9) suspected diverticulitis or colitis 5. Pancreatic disease (HCC) (K86.9) Voice recognition software was used to compose this office note. Please excuse any unintended typographical errors. Recording using [employer] software for draft documentation of the visit was discussed with the patient/authorized ambulatory services representative; all questions welcomed and answered. Patient/authorized ambulatory services representative agreed to proceed Lesvia Milner MD [1] Social History Tobacco Use Smoking status: Every Day Average packs/day: 1 pack/day for 30.0 years (30.0 ttl pk-yrs) Types: Cigarettes Start date: 06/02/1987 Last attempt to quit: 06/02/2017 Years since quittin.5 Smokeless tobacco: Never Tobacco comments: 04/18ppd 10/21/2024 Vaping Use Vaping status: Never Used Substance Use Topics Alcohol use: No Drug use: No Comment: IV DRUG USER documented [facility] Instructions* Patient Instructions* Lesvia Milner MD - 12/29/2024 12:02 PM EDT We discussed your abdominal pain, diarrhea, and concerns about a possible recurrence of C. diff: - A stool test has been ordered to check for C. diff and other potential causes of your symptoms. Please provide a stool sample at the lab today. - A CT scan of your abdomen has been ordered stat to evaluate your abdominal pain and other symptoms. This will be scheduled at [place], either today or tomorrow. - Blood work has been ordered to further assess your condition. Please complete this today. - Do not take the Vancomycin you have at home until we confirm the diagnosis. I will call you with further instructions once the test results are available. - Stay hydrated by drinking plenty of fluids to prevent dehydration. Continue monitoring your skin for signs of dehydration. We discussed your recent rectal surgery and wound care: - The wound does not appear to be infected, but it is important to keep it clean, especially given your diarrhea and mucus. Continue your current efforts to maintain cleanliness and prevent infection. - You have a follow-up appointment with Dr. Griffith on to monitor the healing of your wound. We discussed your pancreatic disease and current symptoms: - Continue taking Creon as prescribed to aid in digestion. - If your symptoms worsen or you experience new issues, please let me know. We discussed your caregiving responsibilities: - You should not care for your mother at this time, as C. diff is highly contagious, and your mother could become seriously ill if exposed. Please inform your sisters that you are unable to assist until your condition improves and the test results confirm you are no longer contagious. Additional instructions: - If you are scheduled for spinal injections tomorrow, you must cancel this appointment. It is not safe to proceed with the injections if you have C. diff. - Focus on resting, staying hydrated, and completing the tests as soon as possible. I will follow up with you once we have the results. Please contact our office if your symptoms worsen or if you have any questions. documented in this encounter[facility] Telephone encounter Note * Telephone Encounter - Sarah Turner RN - 12/29/2024 9:18 AM EDT Patient calls and states that she was previously seen in ER and diagnosed with C-Diff on 11/27/2024. Patient was treated with Vancomycin for C-Diff. Patient calling today to report that she still is having loose stool. Patient is asking if orders can be placed to check stool again. Advised patient that she needs to be seen for this by provider. Patient is scheduled to see Dr. Milner today 12/29/2024 to discuss. Sarah Turner RN [facility]09-16-2025 Miscellaneous Notes* Telephone Encounter - Sarah Turner RN - 12/29/2024 9:18 AM EDT Patient calls and states that she was previously seen in ER and diagnosed with C-Diff on 11/27/2024. Patient was treated with Vancomycin for C-Diff. Patient calling today to report that she still is having loose stool. Patient is asking if orders can be placed to check stool again. Advised patient that she needs to be seen for this by provider. Patient is scheduled to see Dr. Milner today 12/29/2024 to discuss. Sarah Turner RN documented in this encounterSelect [facility] [place]-12-2025 Note* Addendum Note - Malika Ignacio MA - 12/25/2024 12:18 PM EDTAddended by: MALIKA IGNACIO on: 12/25/2024 12:18 PM Modules accepted: Orders [facility]09-12-2025 Miscellaneous Notes* Addendum Note - Malika Ignacio MA - 12/25/2024 12:18 PM EDTAddended by: MALIKA IGNACIO on: 12/25/2024 12:18 PM Modules accepted: Orders * Telephone Encounter - Jazmine Mcgill - 12/25/2024 8:51 AM EDT Prescription Refill Information The patient has been identified by name and date of : Yes Caregiver verified no other encounters exist for this prescription request: Yes Caregiver confirmed with patient/requestor that no other refills are due, in the near future, with this provider at this time: Yes The last office visit in the department: 12-21-24 Does the patient have a future office visit with this provider/department: Yes Nitroglycerin tablets [facility] Jazmine Allison December 25, 2024 8:55 AM documented in this encounterSelect [facility] [place] Telephone encounter Note * Telephone Encounter - Jazmine Mcgill - 12/25/2024 8:51 AM EDT Prescription Refill Information The patient has been identified by name and date of : Yes Caregiver verified no other encounters exist for this prescription request: Yes Caregiver confirmed with patient/requestor that no other refills are due, in the near future, with this provider at this time: Yes The last office visit in the department: 12-21-24 Does the patient have a future office visit with this provider/department: Yes Nitroglycerin tablets [facility] Jazmine Allison December 25, 2024 8:55 AM [facility]-08-[facility] Instructions* Patient Instructions* Natasha Ray MD - 12/21/2024 2:47 PM EDT We discussed your heart symptoms: - You mentioned occasional episodes of right arm pain and a squeezing sensation in your chest that occur about once a month, typically while at rest. These episodes last up to 15 minutes. - I prescribed nitroglycerin tablets to use during these episodes. Place one tablet under your tongue when the symptoms occur, and sit down to rest. Be cautious, as nitroglycerin can cause lightheadedness. If your symptoms do not improve or worsen, please seek medical attention immediately. We discussed your cholesterol: - Your cholesterol levels are high, and we will restart you on atorvastatin (Lipitor) to help manage this. The prescription has been sent to [facility]. - High cholesterol can contribute to blockages in your arteries, which increases your risk of heartdisease. This is often hereditary, even if your diet is healthy. - We will recheck your cholesterol with fasting blood work in March or April. Please fast for 12 hours before the test. We discussed your smoking: - You are currently smoking five cigarettes a day. I encourage you to quit smoking as soon as you feel ready, as this will significantly improve your overall health and reduce your risk of heart and lung problems. We discussed your wound care: - You mentioned difficulty managing the bandage on your wound. Please continue to clean and dress the wound as instructed. If you need assistance, consider asking a family member or friend for help or using a mirror to better visualize the area. Please contact our office if you have any new or worsening symptoms, or if you have questions aboutyour medications or care plan. documented in this encounterSelect [facility] [place]-2025 History of Present illness Narrative* Natasha Ray MD - 12/21/2024 2:40 PM EDT Images from the original note were not included. [facility] SE[facility]IOLOGY Cardiology ([facility]) [address] [facility] [id number] OUTPATIENT VISIT DATE 12/21/2024 PRIMARY CARE PHYSICIAN: Lizbeth Pool [address] [place] [address] HISTORY OF PRESENT ILLNESS: Ms. Berg is a 69 year old woman with a history of SVT (likely atrial tachycardia), syncope due toorthostatic hypotension, hyperlipidemia and prior smoking who presents for routine follow-up. The patient reports experiencing episodes of chest discomfort described as a squeezing sensation, accompanied by right arm pain. These episodes occur approximately once a month, last up to 15 minutes, and are not associated with physical activity, as they can occur while she is at rest, such as watching TV. She denies any recent stressors during these episodes. She denies any syncope but notes occasional dizziness. She has a history of hypercholesterolemia and was previously on atorvastatin, which is not currently on her medication list. She recalls a carotid ultrasound indicating approximately 60% stenosis on one side. She denies any current cholesterol medication use. She is a current smoker, consuming about five cigarettes per day. She has attempted to quit using Chantix and plans to quit once she has healed from a recent procedure. She recently underwent a procedure on and is experiencing difficulty managing the wound care due to its location. She reports pain and challenges in changing the bandage. She has a family history of atrial fibrillation in her sister. PAST MEDICAL HISTORY Diagnosis Date Acute hepatitis C without mention of hepatic coma(070.51) negative RNA in 2016 Acute left ankle pain 12/18/2017 Acute pneumonia 01/15/2022 Anxiety state 05/29/2005 Dr. 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 Not on medications, not seeing neurology. 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 Choi-ID Prediabetes Psoriasis Rheumatoid arthritis involving multiple sites with positive rheumatoid factor (HCC) 12/13/[address] Bowden RLS (restless legs syndrome) 08/29/2011 Vasovagal syncope Vitamin D deficiency PAST SURGICAL HISTORY Procedure Laterality Date BACK SURGERY HX 09/27/2022 CHOLECYSTECTOMY [id number] lap COCHLEAR IMPLANT HX COLONOSCOPY FLX DX W/COLLJ SPEC WHEN PFRMD 10/11/2009 Colonoscopy COLONOSCOPY FLX DX W/COLLJ SPEC WHEN PFRMD 09/30/2018 Colonoscopy EGD EUS N/A 04/06/2020 diffusely dilated PD, suspected pancreas divisum, mild duodenitis ESOPHAGOGASTRODUODENOSCOPY TRANSORAL DIAGNOSTIC 09/30/2018 EGD IR VASCULAR ACCESS TEAM PICC INSERTION RADIO 02/08/2022 MOHS 12/17/2024 SCC right buttock OPEN TREATMENT NASAL FRACTURE UNCOMPLICATED x2 no breathing problems PAST SURGICAL HISTORY OF X 2 PAST SURGICAL HISTORY OF FACIAL RECONSTRUCTION PAST SURGICAL HISTORY OF 1997 BILAT. SHOULDER SURGERY PAST SURGICAL HISTORY OF 1994 CERVICAL SPINE FUSION C4, C5 (had cervical fx x3 - even after repair) PAST SURGICAL HISTORY OF 1969 LEFT EAR CHOLESTEATOMA PAST SURGICAL HISTORY OF CLEFT LIP PAST SURGICAL HISTORY OF 02/2006 lasik PAST SURGICAL HISTORY OF 2004 bladder sling PAST SURGICAL HISTORY OF 08/09/2020 Upper endoscopy, percutaneous endoscopic gastrostomy (PEG) tube placed PEG TUBE REMV CATARACT EXTRACAP,INSERT LENS Bilateral TRACHEOSTOMY EMERGENCY PROCEDURE TRANSTRACHEAL age 3 or 4 during surgery; lost airway SOCIAL HISTORY Social History Tobacco Use Smoking status: Every Day Average packs/day: 1 pack/day for 30.0 years (30.0 ttl pk-yrs) Types: Cigarettes Start date: 06/02/1987 Last attempt to quit: 06/02/2017 Years since quittin.5 Smokeless tobacco: Never Tobacco comments: 04/18ppd 10/21/2024 Vaping Use Vaping status: Never Used Substance Use Topics Alcohol use: No Drug use: No Comment: IV DRUG USER FAMILY HISTORY Problem Relation Age of Onset Stroke Mother Hypertension Mother Diabetes Father Cancer Father melanoma Kidney transplant Father Thyroid Cancer Sister Breast Cancer Sister Thyroid Cancer Sister Breast Cancer Sister Prostate Cancer Brother Cancer Brother 21 testicular Breast Cancer Maternal Aunt Cancer Other C-tkfdvc-Uuzkakwdmp ALLERGIES: ALLERGIES Allergen Reactions Acetaminophen Other: See Comments pt told not to take due to liver damage Bupropion Other: See Comments unable to urinate Bupropion Hcl Unknown Codeine Rash, Itching Darvon [Propoxyphen* Itching Daypro [Oxaprozin] Rash Effexor [Venlafaxin* Intolerance decreased libido Flexeril [Cyclobenz* GI Upset, Vomiting Gabapentin Mental Status Change hangover Ibuprofen Other: See Comments pt was told not to take due to kindey damage Stebbins [Hydrocodone-* GI Upset, Itching nausea, itching Oxybutynin Other: See Comments Urinary retention Pentazocine Itching I[place]ia Trees [Trees] rash Tramadol Intolerance MEDICATIONS: diclofenac, EC, (VOLTAREN) 75 mg EC tablet^Take 1 tablet by mouth two times a day. for pain/inflammation. Take with food.^Disp: 60 tablet^Rfl: 0 rOPINIRole (REQUIP) 1 mg tablet^Take 1 tablet by mouth every afternoon.^Disp: 30 tablet^Rfl: 5 hydrOXYchloroQUINE (PLAQUENIL) 200 mg tablet^Take 1 tablet by mouth once daily.^Disp: 90 tablet^Rfl: 1 budesonide-formoterol (SYMBICORT) 160-4.5 mcg/actuation inhaler^Inhale 2 puffs as instructed two times a day.^Disp: ^Rfl: cholecalciferol, Vitamin D3, (VITAMIN D3) 1,250 mcg (50,000 unit) cap capsule^Take 1 capsule by mouth one time a week.^Disp: 12 capsule^Rfl: 1 magnesium oxide (MAG-OX) 400 mg (241.3 mg magnesium) tablet^Take 1 tablet by mouth once daily.^Disp: 30 tablet^Rfl: 11 zvjwpm-jxjinceh-ggnmegv (CREON) 6,000-19,000 -30,000 unit delayed release capsule^Take 2 capsules by mouth with meals and at bedtime.^Disp: 240 capsule^Rfl: 11 folic acid 1 mg tablet^Take 1 tablet by mouth once daily. Take with breakfast^Disp: 30 tablet^Rfl: 11 tiotropium bromide (SPIRIVA RESPIMAT) 2.5 mcg/actuation inhaler^Inhale 2 puffs as instructed once daily.^Disp: 1 each^Rfl: 5 tiotropium bromide (SPIRIVA RESPIMAT) 2.5 mcg/actuation inhaler^Inhale 2 puffs as instructed once daily.^Disp: 1 each^Rfl: 5 rizatriptan (MAXALT) 10 mg tablet^Take 1 tablet by mouth at onset of headache. May repeat after 1hr^Disp: 24 tablet^Rfl: 0 omega-3 fatty acids 1,000 mg cap^Take 2 capsules by mouth once daily.^Disp: 60 capsule^Rfl: 12 polyethylene glycol 3350 (MIRALAX) 17 gram/dose powder^Take 17 g by mouth two times a day as neededfor constipation.^Disp: 507 g^Rfl: 1 varenicline (CHANTIX) 1 mg tablet^Take 1 tablet by mouth two times a day with meals. Start this dose day 8, continue at least 11 weeks, my refill for up to one year^Disp: 90 tablet^Rfl: 1 varenicline (CHANTIX) 0.5 mg tablet^Days 1 to 3: Take 0.5 mg once daily. Days 4 to 7: 0.5 mg twice daily. Then take 1 mg twice daily for at least 11 weeks. Choose a fixed quit smoking date or a gradual discontinuation of smoking with a stop date within the first twelve weeks. 3^Disp: 11 tablet^Rfl:0 Blood Pressure Monitor (BLOOD PRESSURE KIT)^1 Each once daily as needed. Dx: recurrent syncope R55^Disp: 1 Kit^Rfl: 0 FINGER PULSE OXIMETER^1 Each once daily.^Disp: 1 Each^Rfl: 0 Miscellaneous Medical Supply^Hospital Bed--Extra long. Note: prior hospital bed broke due to long lower extremities pushing on foot of the bed^Disp: 1 Each^Rfl: 0 albuterol HFA (VENTOLIN HFA) 90 mcg/actuation inhaler^Inhale 2 Puffs as instructed every 4 hours asneeded for wheezing/shortness of breath.^Disp: 1 Each^Rfl: 1 cyanocobalamin (VITAMIN B-12) 1,000 mcg tab^Take 1 tablet by mouth once daily.^Disp: 90 tablet^Rfl:3 Miscellaneous Medical Supply^Theraworx topical foam for muscle cramp and spasm. Apply 1 to 2 pumps to legs or hands as needed for cramping as directed per package directions.^Disp: 1 Each^Rfl: 5 omega 8-jho-cpq-fish oil 1,000 mg (250 mg-750 mg)/5 mL liqd^Take 1,000 mg by mouth once daily.^Disp: 90 mL^Rfl: 1 Nebulizers^1 Each once daily.^Disp: 1 Each^Rfl: 0 ALPRAZolam (XANAX) 1 mg tablet^Take 1 mg by mouth twice daily.^Disp: ^Rfl: QUEtiapine (SEROQUEL) 100 mg tablet^Take 2 tablets by mouth daily at bedtime.^Disp: 180 tablet^Rfl:1 REVIEW OF SYSTEMS: Review of Systems Constitutional: Negative for chills, fever, malaise/fatigue and weight loss. HENT: Negative for hearing loss and sore throat. Eyes: Negative for blurred vision and double vision. Respiratory: Negative. Cardiovascular: Negative. Gastrointestinal: Positive for abdominal pain, heartburn and nausea. Negative for blood in stool, constipation, diarrhea, melena and vomiting. Genitourinary: Negative for dysuria, frequency, hematuria and urgency. Musculoskeletal: Negative. Skin: Negative. Neurological: Negative for dizziness, seizures, loss of consciousness, weakness and headaches. Endo/Heme/Allergies: Negative for environmental allergies. Does not bruise/bleed easily. Psychiatric/Behavioral: Negative for depression. PHYSICAL EXAMINATION: BP 142/80 (BP Site: Right Arm, BP Position: Sitting, BP Cuff Size: Regular Adult) Pulse 76 Wt 54.4 kg (120 lb) SpO2 94% BMI 21.16 kg/m General: Thin somewhat cachectic woman sitting appears comfortable mildly anxious no apparent distress. HEENT: Carotid upstrokes are brisk bilaterally without bruits. No JVD appreciated. Pulmonary: Lungs are clear no rales, wheezes, rhonchi Cardiovascular: Normal S1, S2 with regular rate and rhythm. No murmurs, rubs, or gallops appreciated. Abdomen: Soft, flat, diminished bowel sounds. Place. No erythema. Extremities: Warm, well-perfused, no lower extremity edema. CARDIOVASCULAR MEDICINE TESTING: Lexiscan Myoview stress test 04/30/2018: CONCLUSIONS: 1. SPECT Perfusion Study: Normal. 2. There is no scintigraphic evidence for inducible ischemia. 3. No evidence of scarred myocardium. 4. Functional capacity N/A (pharmacological). 5. Left ventricle is normal in size. The left ventricle systolic function is hyperdynamic. 6. This is a low risk scan. Gated Stress FBP LVEF % 84 Echocardiogram 08/29/2023: - The left ventricle is normal in size. There is mild left ventricular hypertrophy. Left ventricular systolic function is normal. EF = 64 5% (2D biplane). Normal left ventricular diastolic function. - The right ventricle is normal in size. Right ventricular systolic function is normal. - Mild (1+) mitral valve regurgitation. - There is systolic anterior motion (LINDSAY) at rest with an LVOT gradient of 5 mmHg, no change with valsalva. No evidence of significant outflow tract obstruction. - Exam was compared with the prior echocardiographic exam performed on 01/19/2022. Mitral regurgitation appears less severe in today's study. Echocardiogram 01/19/2022: - Technically difficult exam due to uncooperative patient and respiratory interference. - Exam indication: Abnormal ECG - The left ventricle is normal in size. There is no left ventricular hypertrophy. Left ventricular systolic function is normal. EF = 56 5% (3D) Grade I left ventricular diastolic dysfunction. - The right ventricle is normal in size. Right ventricular systolic function is normal. - No significant valve disease: Trivial AI, 1-2+ MR, trivial TR - The patient has not had a prior CC echocardiographic exam for comparison. Echocardiogram 04/22/2020: CONCLUSIONS: - Exam indication: Syncope - The left ventricle is normal in size. Left ventricular systolic function is normal. EF = 63 5% (2D biplane) Normal left ventricular diastolic function. - The right ventricle is normal in size. Right ventricular systolic function is normal. - There is LINDSAY at rest with an LVOT gradient of 3 mmHg. No change with valsalva. No evidence of significant outflow tract obstruction. - Exam was compared with the prior CC echocardiographic exam performed on 02/17/2013 (Stress). There has been no change. Extended Monitor 02/08/20-02/22/20: Patient had a min HR of 45 bpm, max HR of 182 bpm, and avg HR of 79bpm. Predominant underlying rhythm was Sinus Rhythm. 376 Supraventricular Tachycardia runs occurred, the run with the fastest interval lasting 4 beats with a max rate of 182 bpm, the longest lasting 2 mins 43 secs with an avg rate of 133 bpm. Supraventricular Tachycardia was detected within +/- 45 seconds of symptomatic patient event(s). Isolated SVEs were rare (<1.0%), SVE Couplets were rare (<1.0%), andSVE Triplets were rare (<1.0%). Isolated VEs were rare (<1.0%), and no VE Couplets or VE Triplets were present. Holter monitor 12/29/2019: IMPRESSIONS AND FINDINGS: Sinus rhythm Maximum HR-144 bpm, minimum HR-52 bpm. Average HR-79 bpm. Very rare SVEs were seen as singles. Runs of SVT / atrial tachycardia were present. Longest run 16 beats, 108 bpm, fastest run 7 beats, 112 bpm. One VE was seen as a single. No symptoms noted on patient diary. Patient event markers were not activated. Brief Interpretation ; Sinus rhythm ; Supraventricular ectopy ; atrial/supraventricular tachycardiarun(s) ; ventricular ectopic Carotid ultrasound 05/31/2022: IMPRESSION Compared to prior study of 05/15/2019, Unable to reproduce velocities in the right internal carotid artery of 40-59%. No change on the left. RIGHT SIDE Internal carotid artery: 20-39% stenosis. Vertebral artery: Patent and antegrade flow noted. High resistive signal suggests non-dominant vessel or more distal disease; clinical correlation is suggested. Innominate artery: Unable to visualize. LEFT SIDE Internal carotid artery: 20-39% stenosis. Vertebral artery: Patent and antegrade flow noted. Carotid ultrasound 05/15/2019: IMPRESSION RIGHT SIDE Internal carotid artery: 40-59% stenosis. Tortuous vessel from mid to distal . Degree of stenosis may be overestimated due to tortuosity at mid to distal vessel. Vertebral artery: Patent and antegrade flow noted. High resistive signal suggests non-dominant vessel or more distal disease; clinical correlation is suggested. Innominate artery: Unable to visualize. Subclavian artery: Unable to visualized origin. Proximal vessel is patent. LEFT SIDE Internal carotid artery: 20-39% stenosis. Vertebral artery: Patent and antegrade flow noted. CT chest without IV contrast 12/28/2019: Heart, pericardium, and thoracic vessels: The thoracic aorta and main pulmonary artery are normal in caliber. The cardiac chambers are normal in size. No coronary artery atherosclerotic calcifications are noted, although the study is not optimized for coronary assessment. No pericardial effusion orthickening. IMPRESSION: Ms. Berg is a 69 year old woman with multiple medical problems and syncope secondary to orthostatic hypotension. She has history of SVT likely atrial tachycardia with associated feelings of palpitations. Her risk factors for coronary disease include a longstanding history of smoking, known carotid artery disease, and dyslipidemia. She had a low risk stress test completed in 2019. PLAN AND RECOMMENDATIONS: 1. Other chest pain - ICD9: 786.59, ICD10: R07.89 (primary diagnosis) Patient with intermittent episodes of chest tightness. Interestingly she is very active and does not have symptoms of chest pain or pressure with activities. Her symptoms usually last 10 to 15 minutes. Differential includes possible coronary vasospasm. Discussed possibly adding nitroglycerin to herregimen. I am afraid to add on Imdur given her difficulties with orthostasis. 2. Orthostatic hypotension - ICD9: 458.0, ICD10: I95.1 - COMPREHENSIVE METABOLIC PANEL 3. Palpitations - ICD9: 785.1, ICD10: R00.2 4. Mixed hyperlipidemia - ICD9: 272.2, ICD10: E78.2 Restart atorvastatin 40 mg daily. Recheck fasting blood work in 3 to 4 months - ATORVASTATIN 40 MG TABLET - COMPREHENSIVE METABOLIC PANEL - LIPID PANEL, FASTING 5. Vasovagal syncope - ICD9: 780.2, ICD10: R55 6. Bilateral carotid artery stenosis - ICD9: 433.10, 433.30, ICD10: I65.23 Natasha Ray MD documented in this encounterSelect [facility]-20[facility] NoteProm[facility] History of Present illness Narrative* Sukhjinder Griffith MD - 12/17/2024 1:00 PM EDT Office Visit Note Date: 12/17/2024 Surgeon: Sukhjinder Griffith MD Office Location: DO [address] [facility] [address] [facility] [address] [facility] [address] Dept: [phone] Dept Referring Provider: DARREN Osorio [address] [place] [address] [facility] David Berg is a 69 y.o. female who presents for the following: MOHS Surgery (Right Buttock) According to the patient, the lesion has been present for approximately 6 months at the time of diagnosis. The lesion is painful. The lesion has not been treated previously. The patient does not have a pacemaker / defibrillator. The patient does not have a heart valve / joint replacement. The patient is not on blood thinners. The patient does have a history of hepatitis B or C. The patient does not have a history of HIV. The patient does have a history of immunosuppression (e.g. organ transplantation, malignancy, medications) Review of Systems: No other skin or systemic complaints other than what is documented elsewhere in the note. MEDICAL HISTORY: clinically relevant history including significant past medical history, medications and allergies was reviewed and documented in Epic. Objective Well appearing patient in no apparent distress; mood and affect are within normal limits. Vital signs: See record. Noted on the Right Buttock Is a 1.5 x 2.2 cm scar The patient confirmed the identified site. Discussion: The nature of the diagnosis was explained. The lesion is a skin cancer. It has a risk of local growth and distant spread. The condition is associated with sun exposure. Warning signs of non-melanoma skin cancer discussed. Patient was instructed to perform monthly self skin examination. We recommended that the patient have regular full skin exams given an increased risk of subsequent skin cancers. The patient was instructed to use sun protective behaviors including use of broad spectrum sunscreens and sun protective clothing to reduce risk of skin cancers. Risks, benefits, side effects of Mohs surgery were discussed with patient and the patient voiced understanding. It was explained that even though the cure rate of Mohs is very high it is not 100%. Risks of surgery including but not limited to bleeding, infection, numbness, nerve damage, and scar were reviewed. Discussion included wound care requirements, activity restrictions, likely scar outcomeand time to heal. After Mohs surgery, the defect may need to be repaired surgically and the scar may be longer than the original lesion. Reconstruction options, risks, and benefits were reviewed including second intention healing, linear repair (4-1 ratio was explained), local flaps, skin grafts, cartilage grafts and interpolation flaps (the need for multiple surgeries was explained). Possible outcomes were reviewed including likely scar appearance, failure of flap survival, infection, bleeding and the need for revision surgery. The patient has a squamous cell carcinoma in situ. It was reviewed with the patient that the skin cancer will continue to progress without treatment. The pathology was reviewed, the photograph was reviewed, and the referring physician's note was reviewed. Medical Decision Making - moderate Column 1 - chronic illness with progression Column 3 - decision regarding minor surgery with identified risk factors (bleeding, infection, scarring). Moderate risk of morbidity from additional treatment - mohs surgery Patient elected for Mohs surgery. Russell Belle RN am scribing for, and in the presence of Sukhjinder Griffith MD I, Jake X Wang, MD, personally performed the services described in the documentation as scribed by Russell Cruz RN in my presence, and confirm it is both accurate and complete. * Sukhjinder Griffith MD - 12/17/2024 1:00 PM EDT Mohs Surgery Operative Note Date of Surgery: 12/17/2024 Surgeon: Sukhjinder Griffith MD Office Location: [address] [address] Dept: [phone] Dept Referring Provider: DARREN Osorio [address] [facility] [address] [place] [address] Assessment/Plan Pre-procedure: Obtained informed consent: written from patient The surgical site was identified and confirmed with the patient. The biopsy site is labeled left buttock but the photo shows the lesion is on right buttock, and the patient agreed. Intra-operative: Audible time out called at : 1:51 PM 12/17/24 by: RUSSELL CRUZ RN Verified patient name, birthdate, site, specimen bottle label & requisition. The planned procedure(s) was again reviewed with the patient. The risks of bleeding, infection, nerve damage and scarring were reviewed. Written authorization was obtained. The patient identity, surgical site, and planned procedure(s) were verified. The provider acted as both surgeon and pathologist. SQUAMOUS CELL CARCINOMA IN SITU OF SKIN OF TRUNK Right Buttock - Staff Communication: Dermatology Local Anesthesia: Site Location: Left Buttock 1 % Lidocaine / Epinephrine - Amount:5.5cc - Mohs surgery Consent obtained: written [place] Protocol: Procedure explained and questions answered to patient or proxy's satisfaction: Yes Test results available and properly labeled: Yes Pathology report reviewed: Yes External notes reviewed: Yes Photo or diagram used for site identification: Yes Site/side marked: Yes Slide independently reviewed by Mohs surgeon: Yes Immediately prior to procedure a time out was called: Yes Patient identity confirmed: verbally with patient Preparation: Patient was prepped and draped in usual sterile fashion Anticoagulation: Is the patient taking prescription anticoagulant and/or aspirin prescribed/recommended by a physician? No Was the anticoagulation regimen changed prior to Mohs? No Anesthesia: Anesthesia method: local infiltration Local anesthetic: lidocaine 1% WITH epi Procedure Details: Case ID Number: [id number] Biopsy accession number: [id number] Date of biopsy: 05/23/2023 Pre-Op diagnosis: squamous cell carcinoma SCC subtype: in situ Surgical site (from skin exam): Right Buttock Pre-operative length (cm): 1.5 Pre-operative width (cm): 2.2 Indications for Mohs surgery: tumor size greater than 2 cm Micrographic Surgery Details: Post-operative length (cm): 3 Post-operative width (cm): 2.2 Number of Mohs stages: 1 Stage 1 Comments: The patient was brought into the operating room and placed in the procedure chair in the appropriate position. The area positive by previous biopsy was identified and confirmed with the patient. The area of clinically obvious tumor was debulked using a curette and/or scalpel as needed. Anincision was made following the Mohs approach through the skin. The specimen was taken to the lab, divided into 2 piece(s) and appropriately chromacoded and processed. Tumor features identified on Mohs section: no tumor identified Depth of defect: subcutaneous fat Patient tolerance of procedure: tolerated well, no immediate complications Reconstruction: Was the defect reconstructed?: No Repair: After a discussion with the patient regarding the options for wound closure, a decision wasmade to proceed with second intention healing. Dressing/Follow-up: Surgifoam was placed in the wound. A pressure dressing was placed to help stabilize the wound and to minimize the risk of postoperative bleeding. Wound care was discussed, and thepatient was given written post- operative wound care instructions. This Visit - mupirocin (Bactroban) 2 % ointment - Apply topically once daily for 14 days. Apply to wound on left buttock Mupirocin ointment was prescribed for wound care. The patient will follow up with Sukhjinder Griffith MD in 2 weeks, and will follow up with their primary fishing gear mechanic as scheduled. IRussell RN am scribing for, and in the presence of Sukhjinder Griffith MD I, Jake X Wang, MD, personally performed the services described in the documentation as scribed by Russell Cruz RN in my presence, and confirm it is both accurate and complete. [facility] Work Phone: [phone] 486-340208-28-2025 Telephone encounter Note* Telephone Encounter - Luana Tripathi APRN.CNS - 12/10/2024 4:32 PM EDT Looks that that has been ordered previously by another provider. I can send a prescription in for her. [facility]08-28-2025 Miscellaneous Notes* Telephone Encounter - Luana Tripathi APRN.CNS - 12/10/2024 4:32 PM EDT Looks that that has been ordered previously by another provider. I can send a prescription in for her. * Telephone Encounter - Avani Rayo RN - 12/10/2024 4:06 PM EDT Patient asking if PCP or cdl team truck driver would be agreeable to reordering diclofenac tablets to help with her mid and lower back discomfort and chronic discomfort from her rheumatoid arthritis. She states diclofenac oral tablets are effective for her and she likes that they are not a narcotic. She is asking for 50 mg tablets, however this dose is not seen. Please advise patient. Call patient with an update. [phone] documented [facility] Telephone encounter Note * Telephone Encounter - Avani Rayo RN - 12/10/2024 4:06 PM EDT Patient asking if PCP or cdl team truck driver would be agreeable to reordering diclofenac tablets to help with her mid and lower back discomfort and chronic discomfort from her rheumatoid arthritis. She states diclofenac oral tablets are effective for her and she likes that they are not a narcotic. She is asking for 50 mg tablets, however this dose is not seen. Please advise patient. Call patient with an update. [phone] [facility]08-27-2025 Telephone encounter Note* Telephone Encounter - Ani Dumont LPN - 12/09/2024 3:26 PM EDT This was rec'd 12/08/24 and pcp signed. It was noted no pull on and send pads. This was faxed back. [facility]08-27-2025 Miscellaneous Notes* Telephone Encounter - Ani Dumont LPN - 12/09/2024 3:26 PM EDT This was rec'd 12/08/24 and pcp signed. It was noted no pull on and send pads. This was faxed back. * Telephone Encounter - Ani Dumont LPN - 12/09/2024 9:01 AM EDT Nothing rec'd at this time. * Telephone Encounter - Avani Rayo RN - 12/08/2024 9:20 AM EDT Patient states PCP office should be receiving a fax from [facility], with an order for incontinence pads for patient. She states she no longer wants pull-up briefs. She wants pads. Patient asking for provider to sign order and fax back to number listed on form. Avani Rayo RN documented [facility] Telephone encounter Note * Telephone Encounter - Ani Dumont LPN - 12/09/2024 9:01 AM EDT Nothing rec'd at this time. [facility]08-26-2025 Telephone encounter Note* Telephone Encounter - Avani Rayo RN - 12/08/2024 9:20 AM EDT Patient states PCP office should be receiving a fax from [facility], with an order for incontinence pads for patient. She states she no longer wants pull-up briefs. She wants pads. Patient asking for provider to sign order and fax back to number listed on form. Avani Rayo RN [facility]08-15-2025 Discharge summary [facility] Medical Records Department [address] [place] [address] Emergency Department Summary 11/27/24 MR#: [id number] Acct: [id number] Name: DAVID BERG Marcus Rep #:[id number] : 1955 69 From: Russell Anthony MD PCP: Dr. Greg Abrams MD Status:RE G ER Location: ED HPI History of Present Illness Chief Complaint: Wound Narrative Narrative: Patient is a 69-year-old female presenting emergency department for abdominal pain and diarrhea. Patient has a past medical history as below. 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 States that she has had it shaved off multiple times. She reports over the past 4 days she has developed left lower quadrant abdominal pain that has continued to worsen. Endorses multiple episodes of diarrhea daily. Describes the diarrhea has mucousy and stringy with some pink tinges. Endorses some mildnausea with no vomiting. Denies any fever or chills. Denies any recent travel. Denies any recent antibiotic use. No new pets at home. [facility] Medical History Uses feeding tube Chronic pancreatitis Severe protein-calorie malnutrition History of pneumonia Weakness Adult failure to thrive Marijuana use Restless legs Psoriasis Easy bruising Hepatitis Shortness of breath on exertion Nicotine dependence Chest pain Wears dentures Wears hearing aid Arthritis Anemia High cholesterol Back pain Injury of back Migraine headache Injury of head and neck Syncope Former smoker COPD (chronic obstructive pulmonary disease) Broken back Leg cramps History of echocardiogram History of stress test Cardiology follow-up encounter History of irregular heartbeat Hx of fracture of nose Personality disorder Osteoporosis Migraines DDD (degenerative disc disease), cervical Cochlear implant in place Bulimia Hepatitis C Calculus of gallbladder without cholecystitis without obstruction Abnormal findings on diagnostic imaging of liver and biliary tract Abnormal weight loss Steatorrhea, pancreatic Severe protein-calorie malnutrition Pancreatic duct stricture Idiopathic chronic pancreatitis Rheumatoid arthritis Anxiety Latent tuberculosis TIA (transient ischemic attack) Home Medications ?Medication ?Instructions ?Recorded ?Last Taken ?Type alprazolam 1 mg tablet (Xanax) 1 mg PO BID mood 01/04/22 History Held on 02/01/22. Instructions: Resume on 02/14/22. Please discuss with your care physician for his resuming this medication rizatriptan 10 mg tablet 10 mg PO PRN PRN Migraine He adache 05/06/17 01/03/22 History magnesium oxide 400 mg (241.3 mg 400 mg PO DAILY SUPPL EMENT 08/04/20 01/04/22 History magnesium) tablet abatacept 125 mg/mL subcutaneous 125 mg subcut FR Che[facility] k with 07/28/21 3 Weeks Ago History syringe primary doctor ~01/01/22 Held on 02/01/22. Instructions: Resume on 02/14/22. You are on antibiotics for an infection that he had in your abdomen, this medication has been held. Please discuss with your primary care physician to determine when it is appropriate to resume this medication albuterol sulfate 2.5 mg/3 mL 3 mg inhalation Q4H PRN PRN 08/11/21 3 Weeks Ago History (0.083 %) solution for nebulization Wheezing ~ 2 ergocalciferol (vitamin D2) 1,250 1,250 mcg PO FR SUPP LEMENT 01/05/22 12/22/21 History mcg (50,000 unit) capsule (Vitamin D2) ropinirole 1 mg tablet 1 mg PO QHS RLS 01/05/22 History cyanocobalamin (vitamin B-12) 500 1,000 mcg (2 x 500 m cg) PO 02/01/22 Unknown Rx mcg tablet BREAKFAST 30 days #60 tabs folic acid 1 mg tablet 1 mg PO BREAKFAST 30 days #3 0 tabs 02/01/22 Unknown Rx [id number] See Rx Instructions .Route 1 Unknown Rx 6,000-19,000-30,000 unit .COMPLEX 30 days #150 caps capsule,delayed rel (Creon) apremilast 30 mg tablet (Otezla) 30 mg PO BID 04/23/24 Unknown History budesonide-formoterol HFA 80 inhalation 04/23/24 Unkno wn History mcg-4.5 mcg/actuation aerosol inhaler (Symbicort) omega-3 acid ethyl esters 1 gram 1 cap PO BID 04/23/24 Unknown History capsule hydrocodone-acetaminophen 5-325mg 1 tab PO Q6H PRN pedro n 3 days #12 07/25/24 Unknown Rx 5mg-325mg tabs albuterol sulfate 90 mcg/actuation 2 puff inhalation Q 4 PRN wheezing 07/31/24 Unknown History aerosol inhaler polyethylene glycol 3350 17 17 g PO DAILY 07/31/24 Unk nown History gram/dose oral powder (Miralax) quetiapine 200 mg tablet 200 mg PO QHS RLS 07/31/24 U nknown History vancomycin 125 mg capsule 125 mg PO Q6H 10 days #40 ca ps 11/27/24 Unknown Rx (Vancocin) Allergy/AdvReac Type Severity Reaction Status Date / Time bupropion Allergy Other Verified 11/27/24 16:15 codeine Allergy Hives Verified 11/27/24 16:15 Environmental Allergies: Allergy Hives Verified 11/27/24 16:15 Uncoded (pine) gabapentin Allergy Other Verified 11/27/24 16:15 oxaprozin (From Daypro) Allergy Hives Verified 11/27/24 16:15 oxybutynin Allergy Unknown Verified 11/27/24 16:15 oxycodone Allergy Itching Verified 11/27/24 16:15 pentazocine (From Talwin) Allergy Itching Verified 11/27/24 16:15 pentazocine lactate (From Allergy Itching Verified 11/27/24 16:15 Talwin) propoxyphene HCl (From Allergy Hives Verified 11/27/24 16:15 Darvon) propoxyphene napsylate (From Allergy Hives Verified 11/27/24 16:15 Darvocet-N 100) rofecoxib (From Vioxx) Allergy Rash Verified 11/27/24 16:15 tramadol HCl (From Ultram) Allergy Upset Verified 11/27/24 16:15 Stomach cyclobenzaprine HCl (From AdvReac Upset Verified 11/27/24 16:15 Flexeril) Stomach hydrocodone AdvReac Other Verified 11/27/24 16:15 venlafaxine HCl (From AdvReac Upset Verified 11/27/24 16:15 Effexor) Stomach Family History Mother CVA (cerebral vascular accident) Hypertension Father Cancer Diabetes Sister Thyroid disorder Surgical History History of ERCP History of kyphoplasty History of nasal surgery History of repair of cleft lip History of colonoscopy History of rotator cuff surgery History of mandibular surgery Hx of LASIK Hx of neck surgery History of back surgery Hx of tubal ligation History of tracheostomy History of bladder surgery H/O section History of cochlear implant Hx of cholecystectomy Social History Smoking Status: Light Smoker (<10/day) alcohol intake: never substance use type: does not use ROS ROS ED ROS Narrative See HPI EXAM Physical Exam Narrative Exam Narrative: Vital signs: Reviewed General: Alert and oriented. No acute distress HEENT: Head is normocephalic and atraumatic, sinuses nontender, pupils equal round and reactive. Nares are patent. Oropharynx and throat exams normal. Neck: Supple without lymphadenopathy nontender Cardiovascular: Regular rate and rhythm, no murmurs. No rubs or gallops. Normal S1 and S2 Respiratory: Clear to auscultation bilaterally. No wheezes, rales, rhonchi Abdominal: Soft with tenderness to palpation in the left lower and suprapubic quadrants. Normal bowel sounds. No guarding or rebound. : completed with nurse at bedside, healed wound to right lateral gluteal cleft. No erythema, warmth or fluctuance. No abscess. Extremities: No tenderness. No bruising. Normal range of motion. Normal sensation. Skin: No rash or redness. Neurological: Cranial nerves II through XII are grossly intact. Normal strengthand sensation. Normal cerebellar function The rest of the physical exam is unremarkable Const Vital Signs: 11/27/24 16:11 11/27/24 16:14 11/27/24 17:56 Temperature 99.9 F H 99.9 F H 99.7 F H Temperature Source Oral Oral Oral Pulse Rate 100 102 H 95 Respiratory Rate 18 18 18 Blood Pressure 152/84 H 152/84 H 147/68 H Blood Pressure Mean 106 106 94 Pulse Ox 100 100 95 Oxygen Delivery Method Room Air Room Air Room Air 11/27/24 19:00 Temperature Temperature Source Pulse Rate 82 Respiratory Rate 18 Blood Pressure 132/77 H Blood Pressure Mean 95 Pulse Ox 97 Oxygen Delivery Method Room Air MDM MDM MDM Narrative Medical decision making narrative: Patient is a 69-year-old female presenting emergency department for diarrhea andabdominal pain. Patient was seen and examined. Vitals are stable. Patient resting bed comfortably no acute distress. Differential includes but is not limited to: Diverticulitis, viral versus bacterial diarrhea, fistula, colitis Fluid bolus ordered. Analgesia given. Labs and imaging ordered. CBC with mild leukocytosis of 13.8 and normal hemoglobin. CMP with no significant abnormalities. Lipase within normal limits. Urinalysis with no evidence of infection. CT shows segmental colitis of the rectosigmoid colon. Stool studiesc gerhard back as positive for C. difficile. Patient given p.o. vancomycin here. She was updated on the lab and imaging findings. C. difficile colitis was discussed with her. Precautions were discussed with her. She will be given prescription for p.o. vancomycin for the next 10 days. Patient discharged from the Emergency Department. I do not feel that the patient's evaluation reveals any acute reason for admission at this time. I instructed them to either follow-up with their primary care physician or promptly return to the Emergency Department for reevaluation should symptoms worsen or new symptoms develop. I explained what symptoms would indicate the need to return to the emergency department. Shared decision making was used. The patient voiced understanding ofthe treatment plan and is agreeable with it. Clinical impression: C. difficile colitis History & Record Review Discussion w/independent historian: Patient Lab Data Attestation: I reviewed the patient's lab results. Labs: Laboratory Results - last 24 hr 11/27/24 11/27/24 17:25 19:10 WBC 13.8 H RBC 4.62 Hgb 14.7 Hct 43.4 MCV 93.9 MCH 31.8 MCHC 33.9 RDW Std Deviation 53.1 H RDW Coeff of Fidelina 15.4 H Plt Count 235 MPV 10.0 Immature Gran % (Auto) 0.400 Neut % (Auto) 74.7 H Lymph % (Auto) 14.8 L [place] % (Auto) 9.6 Eos % (Auto) 0.3 Baso % (Auto) 0.2 Absolute Neuts (auto) 10.3 H Absolute Lymphs (auto) 2.04 Nucleated RBC % 0 Sodium 135 Potassium 4.4 Chloride 99 Carbon Dioxide 20.8 L Anion Gap 15 BUN 15 Creatinine 0.80 Estim Creat Clear Calc 58.93 Est GFR (MDRD) Non-Af 80 BUN/Creatinine Ratio 19.1 Glucose 119 H Calcium 9.7 Total Bilirubin 0.35 AST 24 ALT 12 Alkaline Phosphatase 79 Total Protein 7.1 Albumin 4.3 Globulin 2.8 Albumin/Globulin Ratio 1.5 Lipase 48 Urine Color Straw Urine Clarity Clear Urine pH 7.0 Ur Specific [place] 1.015 Urine Protein 15 H Urine Glucose (UA) Normal Urine Ketones Negative Urine Occult Blood Negative Urine Nitrite Negative Urine Bilirubin Negative Urine Urobilinogen Normal Ur Leukocyte Esterase 25 H Radiography Diagnostic Testing: Clinical Impression(s) from Imaging Studies Abdomen/Pelvis CT 11/27/24 17:06 IMPRESSION: Segmental colitis of the rectosigmoid colon. Reading Location: [facility] Discharge Plan Triage Chief Complaint: Wound ED Provider: Russell Anthony Dx/Rx/DC Orders Clinical Impression: C. difficile colitis Instructions: C diff, C. Diff Prevent Infection, My C. Diff Infection TreatmentPlan Prescriptions: New vancomycin [Vancocin] 125 mg capsule 125 mg PO Q6H 10 Days Qty: 40 0RF No Action abatacept 125 mg/mL syringe 125 mg subcut FR polyethylene glycol 3350 [Miralax] 17 gram/dose powder 17 g PO DAILY budesonide-formoterol [Symbicort] 80-4.5 mcg/actuation HFA aerosol inhaler inhalation omega-3 acid ethyl esters 1 gram capsule 1 cap PO BID Otezla 30 mg tablet 30 mg PO BID albuterol sulfate 90 mcg/actuation HFA aerosol inhaler 2 puff inhalation Q4 PRN (Reason: wheezing) alprazolam [Xanax] 1 MG tablet 1 mg PO BID rizatriptan 10 tablet 10 mg PO PRN PRN (Reason: Migraine Headache) Patient Comments: magnesium oxide 400 MG tablet 400 mg PO DAILY albuterol sulfate 2.5 mg /3 mL (0.083 %) solution for nebulization 3 mg inhalation Q4H PRN PRN (Reason: Wheezing) ropinirole 1 mg tablet 1 mg PO QHS Patient Comments: take 1 tablet by mouth at bedtime ergocalciferol (vitamin D2) [Vitamin D2] 1,250 mcg (50,000 unit) capsule 1,250 mcg PO FR quetiapine 200 mg tablet 200 mg PO QHS Creon 6,000-19,000 -30,000 unit Capsule,Delayed Release(Dr/Ec) See Rx Instructions .ROUTE .COMPLEX 30 Days Qty: 150 0RF Rx Instructions: Take up to 5 caps with meals and snacks cyanocobalamin (vitamin B-12) 500 mcg Tablet 1,000 mcg PO BREAKFAST 30 Days Qty: 60 0RF folic acid 1 mg Tablet 1 mg PO BREAKFAST 30 Days Qty: 30 0RF hydrocodone-acetaminophen 5-325 mg tablet 1 tab PO Q6H PRN (Reason: pain) 3 Days Qty: 12 0RF Primary Care Provider: Greg Abrams Referrals: Greg Abrams MD [Primary Care Provider] - 2 Days Activity Restrictions/Additional Instructions: Take the antibiotic as prescribed. Your evaluation in the Emergency Department did not reveal any acute reason for admission. However, I want to emphasize thatyou may be early in the course of a disease process or illness even if it is notpresent. For this reason you should follow-up within 24 hours for reevaluation with either your primary care physician or if necessary back here in the Emergency Department. You should return to the Emergency Department immediately if your symptoms worsen or new symptoms develop. Print Language: Azerbaijani Disposition Disposition: Home, Self Care What to do if you have Problems For any increased pain, shortness of breath, bleeding, nausea or vomiting, chestpain, or any unexpected problems, contact your Primary Care Provider. Call [facility] ([phone]) or report tothe closest Emergency Room. Call 911 if necessary. 11/27/242102 Cosigner Signature (if applicable): CC: Dr. Greg Abrams MD ~ Signed [facility]08-15-2025 Radiology Diagnostic study note [facility] Imaging Services [address] [place] [address], [place] [id number] Abdomen/Pelvis W IV Cont ONLY MR#: [id number] Acct: [id number] Name: DAVID BERG Rep #: [id number] : 1955 F 69 From: Parrish Sutherland MD PCP: Dr. Greg Abrams MD Status: RE G ER Study:Abdomen/Pelvis W IV Cont ONLY Date of E xam: 11/27/24 Exam# [id number] Ordering Dr: Jaswinder Anthony MD PROCEDURE: CT ABDOMEN/PELVIS W IV CONT ONLY 11/27/2024 REASON FOR EXAM: PAIN TECHNIQUE: CT ABDOMEN/PELVIS W IV CONT ONLY Coronal and Sagittal reconstruction series wereprovided. CONTRAST: Isovue 370 VOLUME: 100 mL One or more dose reduction techniques were used (e.g., Automated exposure control, adjustment of the mA and/or kV according to patient size, use of iterative reconstruction technique. RADIATION DOSE SUMMARY: DLP: 447.46 mGycm COMPARISON: Abdominal CT 06/11/2024. FINDINGS: Lung bases: Clear. Liver: Hepatic steatosis. No focal lesion. Gallbladder: Surgically absent. Chronic presumed age-related and/or postoperative prominence of theCBD and main pancreatic duct, unchanged. Spleen: Normal size and morphology. Pancreas: Prominence of the pancreatic duct. No discrete focal lesion. Adrenals: Unremarkable. Kidneys: Normal in size with symmetric enhancement. No hydronephrosis. Bladder: Collapsed, limiting its evaluation. Reproductive Organs: Grossly unremarkable uterus and adnexae. Bowel: Unremarkable stomach and small bowel. Normal appendix. No bowel obstruction. Segmental wall thickening and inflammation involving the rectosigmoid colon compatible with colitis. Lymph nodes: No suspicious lymph node enlargement. Vasculature: Normal caliber abdominal aorta and IVC. Moderate-advanced atherosclerotic disease. Peritoneum / Retroperitoneum: No free fluid or air. Bones: No acute abnormality. Chronic compression fracture deformities of T12 and L1 with kyphoplasty bone cement. Qualitative osteopenia. CT/Abdomen/Pelvis W IV Cont ONLY IMPRESSION: Segmental colitis of the rectosigmoid colon. Reading Location: [facility] CC: Dr. Russell Anthony MD; Dr. Greg Abrams MD ~ Fringing Machine Operator: Signed [facility]08-15-2025 Telephone encounter Note* Telephone Encounter - Smith Hollins RN - 11/27/2024 3:05 PM EDT Reason for Conversation Rectal Problem Background Pt reports diarrhea with blood every 10-15 min constant for 3 days now. Small blood clot s and a lot of mucous coming out of rectum. Walks bent over due to pain in LLQ and pubic area. Rectal pain. Hasn't eaten for 4 days. Drinking tea and jamal milk. No dizziness. No nausea or vomiting. Disposition Go to ED Now Advised pt to call 911 since she lives alone. Pt states she will not call 911- she will call her sister to drive her. Reason for Disposition SEVERE rectal bleeding (e.g., large blood clots; constant or on and off bleeding) 1. APPEARANCE of BLOOD: Light red and pink with a lot of mucous. Pt thinks the mucous is making theblood pink/light red. Mixed in the stool. Has a lump at side of rectum. Derm did bx- came back squamous cell carcinoma. Pt afraid it's tunneling in. 2. AMOUNT: Doesn't know. Just knows it's been coming out every 10-15 min for 3 days it's slimey andpink. Small clots. 3. FREQUENCY: 3 days now, every 10 to 15 min, including night hours. 4. ONSET: 3 days ago. 5. DIARRHEA: Diarrhea. Every 15 minutes, even in middle of night. 6. CONSTIPATION: Not at all, stool is liquid. 7. RECURRENT SYMPTOMS: No 8. BLOOD THINNERS: No 9. OTHER SYMPTOMS: Abdominal pain in LLQ. Rectal pain. Very tired. No dizziness. Walks bent over due to pain LLQ and at pubic area. Chills/hot. No nausea or vomiting. No appetite. Hasn't eaten in 4 days. Drinking liquids: ice tea, jamal milk. 10. : No No Additional Information on file. Protocols Used Rectal Qwouqdas-FOBLI-HV [facility]08-15-2025 Miscellaneous Notes* Telephone Encounter - Smith Hollins RN - 11/27/2024 3:05 PM EDT Reason for Conversation Rectal Problem Background Pt reports diarrhea with blood every 10-15 min constant for 3 days now. Small blood clot s and a lot of mucous coming out of rectum. Walks bent over due to pain in LLQ and pubic area. Rectal pain. Hasn't eaten for 4 days. Drinking tea and jamal milk. No dizziness. No nausea or vomiting. Disposition Go to ED Now Advised pt to call 911 since she lives alone. Pt states she will not call 911- she will call her sister to drive her. Reason for Disposition SEVERE rectal bleeding (e.g., large blood clots; constant or on and off bleeding) 1. APPEARANCE of BLOOD: Light red and pink with a lot of mucous. Pt thinks the mucous is making theblood pink/light red. Mixed in the stool. Has a lump at side of rectum. Derm did bx- came back squamous cell carcinoma. Pt afraid it's tunneling in. 2. AMOUNT: Doesn't know. Just knows it's been coming out every 10-15 min for 3 days it's slimey andpink. Small clots. 3. FREQUENCY: 3 days now, every 10 to 15 min, including night hours. 4. ONSET: 3 days ago. 5. DIARRHEA: Diarrhea. Every 15 minutes, even in middle of night. 6. CONSTIPATION: Not at all, stool is liquid. 7. RECURRENT SYMPTOMS: No 8. BLOOD THINNERS: No 9. OTHER SYMPTOMS: Abdominal pain in LLQ. Rectal pain. Very tired. No dizziness. Walks bent over due to pain LLQ and at pubic area. Chills/hot. No nausea or vomiting. No appetite. Hasn't eaten in 4 days. Drinking liquids: ice tea, jamal milk. 10. : No No Additional Information on file. Protocols Used Rectal Ictkhxzr-[id number]-GC documented in [facility] Discharge summary Author Russell Anthony [facility] Note Date/Time November 27, 2024 9: 03pm [facility] Medical Records Department [address] [place] [address] Emergency Department Summary 11/27/24 MR#: [id number] Acct: [id number] Name: DAVID BERG Rep #:[id number] : 1955 69 From: Russell Anthony MD PCP: Dr. Greg Abrams MD Status:RE G ER Location: ED HPI History of Present Illness Chief Complaint: Wound Narrative Narrative: Patient is a 69-year-old female presenting emergency department for abdominal pain and diarrhea. Patient has a past medical history as below. 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 States that she has had it shaved off multiple times. She reports over the past 4 days she has developed left lower quadrant abdominal pain that has continued to worsen. Endorses multiple episodes of diarrhea daily. Describes the diarrhea has mucousy and stringy with some pink tinges. Endorses some mildnausea with no vomiting. Denies any fever or chills. Denies any recent travel. Denies any recent antibiotic use. No new pets at home. [facility] Medical History Uses feeding tube Chronic pancreatitis Severe protein-calorie malnutrition History of pneumonia Weakness Adult failure to thrive Marijuana use Restless legs Psoriasis Easy bruising Hepatitis Shortness of breath on exertion Nicotine dependence Chest pain Wears dentures Wears hearing aid Arthritis Anemia High cholesterol Back pain Injury of back Migraine headache Injury of head and neck Syncope Former smoker COPD (chronic obstructive pulmonary disease) Broken back Leg cramps History of echocardiogram History of stress test Cardiology follow-up encounter History of irregular heartbeat Hx of fracture of nose Personality disorder Osteoporosis Migraines DDD (degenerative disc disease), cervical Cochlear implant in place Bulimia Hepatitis C Calculus of gallbladder without cholecystitis without obstruction Abnormal findings on diagnostic imaging of liver and biliary tract Abnormal weight loss Steatorrhea, pancreatic Severe protein-calorie malnutrition Pancreatic duct stricture Idiopathic chronic pancreatitis Rheumatoid arthritis Anxiety Latent tuberculosis TIA (transient ischemic attack) Home Medications ?Medication ?Instructions ?Recorded ?Last Taken ?Type alprazolam 1 mg tablet (Xanax) 1 mg PO BID mood 01/04/22 History Held on 02/01/22. Instructions: Resume on 02/14/22. Please discuss with your care physician for his resuming this medication rizatriptan 10 mg tablet 10 mg PO PRN PRN Migraine He adache 05/06/17 01/03/22 History magnesium oxide 400 mg (241.3 mg 400 mg PO DAILY SUPPL EMENT 08/04/20 01/04/22 History magnesium) tablet abatacept 125 mg/mL subcutaneous 125 mg subcut FR Che k with 07/28/21 3 Weeks Ago History syringe primary doctor ~01/01/22 Held on 02/01/22. Instructions: Resume on 02/14/22. You are on antibiotics for an infection that he had in your abdomen, this medication has been held. Please discuss with your primary care physician to determine when it is appropriate to resume this medication albuterol sulfate 2.5 mg/3 mL 3 mg inhalation Q4H PRN PRN 08/11/21 3 Weeks Ago History (0.083 %) solution for nebulization Wheezing ~ 2 ergocalciferol (vitamin D2) 1,250 1,250 mcg PO FR SUPP LEMENT 01/05/22 12/22/21 History mcg (50,000 unit) capsule (Vitamin D2) ropinirole 1 mg tablet 1 mg PO QHS RLS 01/05/22 History cyanocobalamin (vitamin B-12) 500 1,000 mcg (2 x 500 m cg) PO 02/01/22 Unknown Rx mcg tablet BREAKFAST 30 days #60 tabs folic acid 1 mg tablet 1 mg PO BREAKFAST 30 days #3 0 tabs 02/01/22 Unknown Rx [id number] See Rx Instructions .Route 1 Unknown Rx 6,000-19,000-30,000 unit .COMPLEX 30 days #150 caps capsule,delayed rel (Creon) apremilast 30 mg tablet (Otezla) 30 mg PO BID 04/23/24 Unknown History budesonide-formoterol HFA 80 inhalation 04/23/24 Unkno wn History mcg-4.5 mcg/actuation aerosol inhaler (Symbicort) omega-3 acid ethyl esters 1 gram 1 cap PO BID 04/23/24 Unknown History capsule hydrocodone-acetaminophen 5-325mg 1 tab PO Q6H PRN pedro n 3 days #12 07/25/24 Unknown Rx 5mg-325mg tabs albuterol sulfate 90 mcg/actuation 2 puff inhalation Q 4 PRN wheezing 07/31/24 Unknown History aerosol inhaler polyethylene glycol 3350 17 17 g PO DAILY 07/31/24 Unk nown History gram/dose oral powder (Miralax) quetiapine 200 mg tablet 200 mg PO QHS RLS 07/31/24 U nknown History vancomycin 125 mg capsule 125 mg PO Q6H 10 days #40 ca ps 11/27/24 Unknown Rx (Vancocin) Allergy/AdvReac Type Severity Reaction Status Date / Time bupropion Allergy Other Verified 11/27/24 16:15 codeine Allergy Hives Verified 11/27/24 16:15 Environmental Allergies: Allergy Hives Verified 11/27/24 16:15 Uncoded (pine) gabapentin Allergy Other Verified 11/27/24 16:15 oxaprozin (From Daypro) Allergy Hives Verified 11/27/24 16:15 oxybutynin Allergy Unknown Verified 11/27/24 16:15 oxycodone Allergy Itching Verified 11/27/24 16:15 pentazocine (From Talwin) Allergy Itching Verified 11/27/24 16:15 pentazocine lactate (From Allergy Itching Verified 11/27/24 16:15 Talwin) propoxyphene HCl (From Allergy Hives Verified 11/27/24 16:15 Darvon) propoxyphene napsylate (From Allergy Hives Verified 11/27/24 16:15 Darvocet-N 100) rofecoxib (From Vioxx) Allergy Rash Verified 11/27/24 16:15 tramadol HCl (From Ultram) Allergy Upset Verified 11/27/24 16:15 Stomach cyclobenzaprine HCl (From AdvReac Upset Verified 11/27/24 16:15 Flexeril) Stomach hydrocodone AdvReac Other Verified 11/27/24 16:15 venlafaxine HCl (From AdvReac Upset Verified 11/27/24 16:15 Effexor) Stomach Family History Mother CVA (cerebral vascular accident) Hypertension Father Cancer Diabetes Sister Thyroid disorder Surgical History History of ERCP History of kyphoplasty History of nasal surgery History of repair of cleft lip History of colonoscopy History of rotator cuff surgery History of mandibular surgery Hx of LASIK Hx of neck surgery History of back surgery Hx of tubal ligation History of tracheostomy History of bladder surgery H/O section History of cochlear implant Hx of cholecystectomy Social History Smoking Status: Light Smoker (<10/day) alcohol intake: never substance use type: does not use ROS ROS ED ROS Narrative See HPI EXAM Physical Exam Narrative Exam Narrative: Vital signs: Reviewed General: Alert and oriented. No acute distress HEENT: Head is normocephalic and atraumatic, sinuses nontender, pupils equal round and reactive. Nares are patent. Oropharynx and throat exams normal. Neck: Supple without lymphadenopathy nontender Cardiovascular: Regular rate and rhythm, no murmurs. No rubs or gallops. Normal S1 and S2 Respiratory: Clear to auscultation bilaterally. No wheezes, rales, rhonchi Abdominal: Soft with tenderness to palpation in the left lower and suprapubic quadrants. Normal bowel sounds. No guarding or rebound. : completed with nurse at bedside, healed wound to right lateral gluteal cleft. No erythema, warmth or fluctuance. No abscess. Extremities: No tenderness. No bruising. Normal range of motion. Normal sensation. Skin: No rash or redness. Neurological: Cranial nerves II through XII are grossly intact. Normal strengthand sensation. Normal cerebellar function The rest of the physical exam is unremarkable Const Vital Signs: 11/27/24 16:11 11/27/24 16:14 11/27/24 17:56 Temperature 99.9 F H 99.9 F H 99.7 F H Temperature Source Oral Oral Oral Pulse Rate 100 102 H 95 Respiratory Rate 18 18 18 Blood Pressure 152/84 H 152/84 H 147/68 H Blood Pressure Mean 106 106 94 Pulse Ox 100 100 95 Oxygen Delivery Method Room Air Room Air Room Air 11/27/24 19:00 Temperature Temperature Source Pulse Rate 82 Respiratory Rate 18 Blood Pressure 132/77 H Blood Pressure Mean 95 Pulse Ox 97 Oxygen Delivery Method Room Air MDM MDM MDM Narrative Medical decision making narrative: Patient is a 69-year-old female presenting emergency department for diarrhea andabdominal pain. Patient was seen and examined. Vitals are stable. Patient resting bed comfortably no acute distress. Differential includes but is not limited to: Diverticulitis, viral versus bacterial diarrhea, fistula, colitis Fluid bolus ordered. Analgesia given. Labs and imaging ordered. CBC with mild leukocytosis of 13.8 and normal hemoglobin. CMP with no significant abnormalities. Lipase within normal limits. Urinalysis with no evidence of infection. CT shows segmental colitis of the rectosigmoid colon. Stool studiescame back as positive for C. difficile. Patient given p.o. vancomycin here. She was updated on the lab and imaging findings. C. difficile colitis was discussed with her. Precautions were discussed with her. She will be given prescription for p.o. vancomycin for the next 10 days. Patient discharged from the Emergency Department. I do not feel that the patient's evaluation reveals any acute reason for admission at this time. I instructed them to either follow-up with their primary care physician or promptly return to the Emergency Department for reevaluation should symptoms worsen or new symptoms develop. I explained what symptoms would indicate the need to return to the emergency department. Shared decision making was used. The patient voiced understanding ofthe treatment plan and is agreeable with it. Clinical impression: C. difficile colitis History & Record Review Discussion w/independent historian: Patient Lab Data Attestation: I reviewed the patient's lab results. Labs: Laboratory Results - last 24 hr 11/27/24 11/27/24 17:25 19:10 WBC 13.8 H RBC 4.62 Hgb 14.7 Hct 43.4 MCV 93.9 MCH 31.8 MCHC 33.9 RDW Std Deviation 53.1 H RDW Coeff of Fidelina 15.4 H Plt Count 235 MPV 10.0 Immature Gran % (Auto) 0.400 Neut % (Auto) 74.7 H Lymph % (Auto) 14.8 L [place] % (Auto) 9.6 Eos % (Auto) 0.3 Baso % (Auto) 0.2 Absolute Neuts (auto) 10.3 H Absolute Lymphs (auto) 2.04 Nucleated RBC % 0 Sodium 135 Potassium 4.4 Chloride 99 Carbon Dioxide 20.8 L Anion Gap 15 BUN 15 Creatinine 0.80 Estim Creat Clear Calc 58.93 Est GFR (MDRD) Non-Af 80 BUN/Creatinine Ratio 19.1 Glucose 119 H Calcium 9.7 Total Bilirubin 0.35 AST 24 ALT 12 Alkaline Phosphatase 79 Total Protein 7.1 Albumin 4.3 Globulin 2.8 Albumin/Globulin Ratio 1.5 Lipase 48 Urine Color Straw Urine Clarity Clear Urine pH 7.0 Ur Specific [place] 1.015 Urine Protein 15 H Urine Glucose (UA) Normal Urine Ketones Negative Urine Occult Blood Negative Urine Nitrite Negative Urine Bilirubin Negative Urine Urobilinogen Normal Ur Leukocyte Esterase 25 H Radiography Diagnostic Testing: Clinical Impression(s) from Imaging Studies Abdomen/Pelvis CT 11/27/24 17:06 IMPRESSION: Segmental colitis of the rectosigmoid colon. Reading Location: [id number] Discharge Plan Triage Chief Complaint: Wound ED Provider: Russell Anthony Dx/Rx/DC Orders Clinical Impression: C. difficile colitis Instructions: C diff, C. Diff Prevent Infection, My C. Diff Infection TreatmentPlan Prescriptions: New vancomycin [Vancocin] 125 mg capsule 125 mg PO Q6H 10 Days Qty: 40 0RF No Action abatacept 125 mg/mL syringe 125 mg subcut FR polyethylene glycol 3350 [Miralax] 17 gram/dose powder 17 g PO DAILY budesonide-formoterol [Symbicort] 80-4.5 mcg/actuation HFA aerosol inhaler inhalation omega-3 acid ethyl esters 1 gram capsule 1 cap PO BID Otezla 30 mg tablet 30 mg PO BID albuterol sulfate 90 mcg/actuation HFA aerosol inhaler 2 puff inhalation Q4 PRN (Reason: wheezing) alprazolam [Xanax] 1 MG tablet 1 mg PO BID rizatriptan 10 tablet 10 mg PO PRN PRN (Reason: Migraine Headache) Patient Comments: magnesium oxide 400 MG tablet 400 mg PO DAILY albuterol sulfate 2.5 mg /3 mL (0.083 %) solution for nebulization 3 mg inhalation Q4H PRN PRN (Reason: Wheezing) ropinirole 1 mg tablet 1 mg PO QHS Patient Comments: take 1 tablet by mouth at bedtime ergocalciferol (vitamin D2) [Vitamin D2] 1,250 mcg (50,000 unit) capsule 1,250 mcg PO FR quetiapine 200 mg tablet 200 mg PO QHS Creon 6,000-19,000 -30,000 unit Capsule,Delayed Release(Dr/Ec) See Rx Instructions .ROUTE .COMPLEX 30 Days Qty: 150 0RF Rx Instructions: Take up to 5 caps with meals and snacks cyanocobalamin (vitamin B-12) 500 mcg Tablet 1,000 mcg PO BREAKFAST 30 Days Qty: 60 0RF folic acid 1 mg Tablet 1 mg PO BREAKFAST 30 Days Qty: 30 0RF hydrocodone-acetaminophen 5-325 mg tablet 1 tab PO Q6H PRN (Reason: pain) 3 Days Qty: 12 0RF Primary Care Provider: Greg Abrams Referrals: Greg Abrams MD [Primary Care Provider] - 2 Days Activity Restrictions/Additional Instructions: Take the antibiotic as prescribed. Your evaluation in the Emergency Department did not reveal any acute reason for admission. However, I want to emphasize thatyou may be early in the course of a disease process or illness even if it is notpresent. For this reason you should follow-up within 24 hours for reevaluation with either your primary care physician or if necessary back here in the Emergency Department. You should return to the Emergency Department immediately if your symptoms worsen or new symptoms develop. Print Language: Azerbaijani Disposition Disposition: Home, Self Care What to do if you have Problems For any increased pain, shortness of breath, bleeding, nausea or vomiting, chestpain, or any unexpected problems, contact your Primary Care Provider. Call [facility] ([phone]) or report to the closest Emergency Room. Call 911 if necessary. 11/27/242102 <Electronically signed by Russell Anthony MD> Cosigner Signature (if applicable): CC: Dr. Greg Abrams MD ~ Signed [facility] Work Phone: [phone]) 863-639708-14-2025 Telephone encounter Note* Telephone Encounter - Deloris Juarez APRN.CNP - 11/26/2024 2:41 PM EDT Ok to resume the Orenica injection, please let her know. Also will need follow up in a few months. Deloris Juarez APRN.EDMUND [facility]08-14-2025 Miscellaneous Notes* Telephone Encounter - Deloris Juarez APRN.CNP - 11/26/2024 2:41 PM EDT Ok to resume the Orenica injection, please let her know. Also will need follow up in a few months. Deloris Juarez APRN.CNP * Telephone Encounter - Ally Barclay - 11/26/2024 1:11 PM EDT Patient has been identified by name and date of : Yes Reason for call: Patient called saying her ulcer is gone and she wants to start back up on the medication that was stopped because of it. Please advise and call pt back. personal fitness manager: Patient Phone number: [phone] (home) [phone] (work) [phone] (cell) documented in this encounter[facility] Telephone encounter Note * Telephone Encounter - Ally Barclay - 11/26/2024 1:11 PM EDT Patient has been identified by name and date of : Yes Reason for call: Patient called saying her ulcer is gone and she wants to start back up on the medication that was stopped because of it. Please advise and call pt back. personal fitness manager: Patient Phone number: [phone] (home) [phone] (work) [phone] (cell) [facility]07-21-2025 Telephone encounter Note* Telephone Encounter - Leta Bautista - 11/02/2024 1:25 PM EDT Patient needs her medication sent to a new pharmacy due to closing. Please send to [facility] on file. [facility] Work Phone: 1(813) 235-557107-21-2025 Miscellaneous Notes* Telephone Encounter - Leta Bautista - 11/02/2024 1:25 PM EDT Patient needs her medication sent to a new pharmacy due to closing. Please send to [facility] on file. * Telephone Encounter - Leta Bautista - 11/02/2024 1:24 PM EDT Prescription Refill Information The patient has been identified by name and date of : Yes Caregiver verified no other encounters exist for this prescription request: Yes Caregiver confirmed with patient/requestor that no other refills are due, in the near future, with this provider at this time: Yes The last office visit in the department: 09-30-24 Does the patient have a future office visit with this provider/department: Yes Requested Prescriptions Pending Prescriptions Disp Refills rOPINIRole (REQUIP) 1 mg tablet 30 tablet 5 Sig: Take 1 tablet by mouth every afternoon. Leta Allison November 02, 2024 1:24 PM documented in this encounterSelect [facility]20[facility] Telephone encounter Note * Telephone Encounter - Leta Bautista - 11/02/2024 1:24 PM EDT Prescription Refill Information The patient has been identified by name and date of : Yes Caregiver verified no other encounters exist for this prescription request: Yes Caregiver confirmed with patient/requestor that no other refills are due, in the near future, with this provider at this time: Yes The last office visit in the department: 09-30-24 Does the patient have a future office visit with this provider/department: Yes Requested Prescriptions Pending Prescriptions Disp Refills rOPINIRole (REQUIP) 1 mg tablet 30 tablet 5 Sig: Take 1 tablet by mouth every afternoon. Leta Allison November 02, 2024 1:24 PM [facility]07-10-2025 History of Present illness Narrative* Deloris Juarez, LEARNING DISABILITIES TEACHER.ALMOND ROASTER - 10/22/2024 2:00 PM EDT Images from the original note were not included. Rheumatology FOLLOW UP VISIT- DISTANCE VISIT- TELEPHONE I have communicated my name and active licensure. The patient's identity and physical location wereverified at the time of this visit. Either the patient or their legal ambulatory services representative has been informed of the risks and benefits of -- and alternatives to -- treatment through a remote evaluation andconsents to proceed with the evaluation remotely. Referring Provider: Deloris Juarez Date of Service: 10/22/2024 Gender: female Ethnicity: White Age: [age] year old Chief Complaint: No chief complaint on file. Last Rheumatology visit: 10/22/2024 (with Deloris Juarez) David Berg is a 68 year old White female who presents on 10/22/2024 for DISTANCE visit for evaluation of No chief complaint on file.. She is currently taking hydroxychloroquine sulfate. David is RF positive - 49 (06/23/2012) and CCP negative - 17 (06/23/2012). Her most recent BOB was negative (08/23/1999). INTERVAL HISTORY David Berg is a 69-year-old female with a history of RA and severe osteoporosis, presenting fora telephone encounter to discuss medication management. David has been on subcutaneous Orencia for several months for RA management. She is requesting a new authorization for Orencia but has not had an in-person visit with rheumatology for an extended period. Earlier this month, her local care team recommended holding Orencia due to a pressure ulceration in the lower back/groin region being evaluated for infection. She has a history of a positive PPD and TB skin test and has been treated with INH in the past. She also has severe osteoporosis with a history of fractures. She has declined bone therapy due to jaw issues from an old injury and poor dentition, with sporadic follow-up with her dentist. Patient-Entered Data RAPID 3 [place] Activities of Daily Living No Data Dress self? - Get in and out of bed? - Walk outdoors? - Wash and dry body? - Get in and out of car? - RAPID 3 Disease Activity Weighed Score Levels: 0 - 1: Near Remission 1.3 - 2.0: Low Severity 2.3 - 4.0: Moderate Severity 4.3 - 10.0: High Severity 05/18/2016 12/11/2017 01/12/2019 RAPID-3 Weighed Score RAPID 3 Weighed Score 7.6 5.9 5.4 PROMIS Assessments 11/15/2016 12/11/2017 01/12/2019 PROMIS Assessments Physical Health Percentile 6.55 7 3.92 3.92 Mental Health Percentile 3.07 3 18.67 5.26 Pain Score 7 2 7 6 PROMIS Physical Function T-Score 33.62 PROMIS Functional Status Percentile 5.05 Multiple values from one day are sorted in reverse-chronological order Impression Diagnoses: (M05.79) Rheumatoid arthritis involving multiple sites with positive rheumatoid factor (HCC) (primary encounter diagnosis) (M81.0) Post-menopausal osteoporosis (L89.159) Pressure injury of skin of sacral region, unspecified injury stage (Z86.15) Personal history of latent tuberculosis infection Blood TB: Positive (09/03/2024) Hepatitis A Antibody test: Negative (09/03/2024) Hepatitis B Antibody test: Negative (09/03/2024) Hepatitis B Antibody test: Positive (09/03/2024) At today's visit, the patient's disease appears to be: active but stable from last visit Plan # Rheumatoid arthritis involving multiple sites with positive rheumatoid factor (HCC) (M05.79) Currently managed with Orencia, which has been held due to potential infection risk from a pressureulcer. Has not had a live visit with rheumatology for some time. - Initiate Plaquenil 1 pill per day; discussed need for yearly eye exam. - Hold Orencia until cleared from an infectious standpoint by her medical team. - Follow-up in approximately 2 months to assess wound healing and potential resumption of Orencia. # Post-menopausal osteoporosis (M81.0) Severe osteoporosis with a history of fractures. Patient has declined bone therapy due to jaw issues from a past injury and poor dentition. - Patient elects to hold off on further bone therapy at this time. # Pressure injury of skin of sacral region, unspecified injury stage (L89.159) Pressure ulceration in the lower back/groin region being evaluated for infectious reasons by the local care team. - Monitor healing progress; follow-up with Dr. Jones in approximately 2 months. # Personal history of latent tuberculosis infection (Z86.15) History of positive PPD and TB skin test; previously treated with INH. Return in about 6 weeks (around 12/03/2024) for first avail with dr jones . I spent a total of 20 minutes on the date of the service Deloris Juarez APRN.ALMOND ROASTER cc: PCP: Lizbeth Pool [address] [place] [address] Subjective HISTORY OF PRESENT ILLNESS Rheumatology Follow up: Past Prior History: Hx of Hep C interferon/ribavarin/RA Past treatment: SSZ and Enbrel. Per patient Enbrel has helped tremendously but lost efficacy after about 2 1/2 years RF positive, CCP negative, Hep C viral load negative. No cryos, no abnormal proteins. Orencia resumed 11/2009 - stopped 05/2011- lung infections- emphysema. RTX 01/2012, 08/2012. 02/2013- not helpful Resume orencia 07/2013. stopped again 10/2014 (self), resumed orencia 2015- current Repeat quantiferon was negative and she had evaluation with ID - recommended treatment for LTBI- she took for 4 months only. states that was her completed course. Cleared by ID for Orenica. + ETOH induced pancreatitis Osteoporosis: She fell off a ladder 18 feet in July 2021- L1, required kyphoplasty, torn ligament of ankle. then fractured her wrist several weeks later, again from a fall. Prior has used fosamax [id number] with ? compliance. DXA has shown Osteopenia. 09/2018. DXA 11/2022-> There has been a 3.5% decrease in left femoral neck bone density and a 3.7% decrease in total left hip bone mineral density since the previous study in 2019. INTERVAL HISTORY David Berg is a 69-year-old female with a history of RA and severe osteoporosis, presenting fora telephone encounter to discuss medication management. David has been on subcutaneous Orencia for several months for RA management. She is requesting a new authorization for Orencia but has not had an in-person visit with rheumatology for an extended period. Earlier this month, her local care team recommended holding Orencia due to a pressure ulceration in the lower back/groin region being evaluated for infection. She has a history of a positive PPD and TB skin test and has been treated with INH in the past. She also has severe osteoporosis with a history of fractures. She has declined bone therapy due to jaw issues from an old injury and poor dentition, with sporadic follow-up with her dentist. Disease History PAIN EVALUATION No data found in the last 1 encounters. Objective Treatment History Relevant Previous Investigations Latest Ref Rng & Units 11/21/2023 02/04/2024 03/26/2024 09/03/2024 CBC WBC 3.70 - 11.00 k/uL 7.64 6.54 6.24 6.67 Hemoglobin 11.5 - 15.5 g/dL 14.3 15.7 15.3 13.6 Hematocrit 36.0 - 46.0 % 44.2 45.7 46.8 41.7 Platelet Count 150 - 400 k/uL 236 230 294 241 Abs Neut (ANC) 1.45 - 7.50 k/uL 4.85 3.49 Abs Lymph 1.00 - 4.00 k/uL 1.29 2.59 Latest Ref Rng & Units 01/06/2024 02/04/2024 03/26/2024 09/03/2024 CMP Sodium 136 - 144 mmol/L 142 144 141 Potassium 3.7 - 5.1 mmol/L 4.2 3.6 4.5 4.8 Chloride 98 - 107 mmol/L 103 103 105 CO2 22 - 30 mmol/L 28 28 22 Glucose 74 - 99 mg/dL 91 140 172 BUN 7 - 21 mg/dL 6 11 18 Creatinine 0.58 - 0.96 mg/dL 0.70 0.84 0.88 Calcium 8.5 - 10.2 mg/dL 10.7 10.9 9.9 AST 13 - 35 U/L 37 33 21 ALT 7 - 38 U/L 22 24 11 Alkaline Phosphatase 34 - 123 U/L 80 78 70 Latest Ref Rng & Units 08/23/1999 Uric Acid Uric Acid 2.0 - 7.0 mg/dL 4.8 Latest Ref Rng & Units 05/12/2019 12/03/2019 11/30/2021 02/04/2024 ESR, WSR WSR 0 - 20 mm/hr 8 2 9 5 Latest Ref Rng & Units 12/03/2019 08/06/2020 11/30/2021 02/04/2024 CRP CRP <0.9 mg/dL 0.1 3.1 2.0 <0.3 Latest Ref Rng & Units 08/23/1999 02/24/2009 09/12/2011 C3, C4 C3 68 - 260 mg/dL 87 C4 12 - 46 mg/dL 12 13 23 Latest Ref Rng & Units 08/23/1999 02/24/2009 06/23/2012 RF and CCP Rheumatoid Factor <20 IU/mL 1240 61 49 CCP Antibody, IgG <20 Units <15 17 Latest Ref Rng & Units 12/07/2011 02/13/2016 02/04/2024 09/03/2024 Hepatitis Screen Hep A Ab, IgM Negative Negative Hep B Core Ab, IgM Negative Negative Hep B Core Ab, Total Negative Negative Negative Negative Hep B Surf Ab Qual Negative Negative Negative Hep C Antibody IA Negative Positive Positive Positive Positive Hep B Surface Ag Negative Negative Negative HBsAg Negative Negative Negative 02/23/2019 11/30/2021 02/04/2024 09/03/2024 TB Screen TB Interpretation Result is consistent with current or previous infection with Mycobacterium tuberculosis. This result is indeterminate for Mycobacterium tuberculosis complex antigen responsiveness. Specimens from immunocompromised patients, those <5 years of age, and those with a known recent exposuremay fall under this category. Please correlate with clinical picture and other alternative assessments. Infection with M. tuberculosis complex is unlikely. If latent tuberculosis infection is highly suspected, a negative result does not rule out the infection. Specimens from immunocompromised patients and those <5 years of age may show false negative results. In case of a contact investigation, please repeat 8-12 weeks after a known exposure. The result suggests an infection with either M. tu berculosis complex and/or any of M. kansasii, M. szulgai, M. marinum, and M. flavescens; however, active and latent infections cannot be distinguished by this test. A positive result may not be reliable if obtained within several months of a Tuberculin Skin Test. Clinical and epidemiological correlation is required. TB Result Positive Indeterminate Negative Positive Latest Ref Rng & Units 08/04/2020 01/06/2022 01/15/2022 01/17/2022 Antibodies PT Sec 9.7 - 13.0 sec 10.9 10.8 11.3 10.6 PT INR 0.9 - 1.3 1.1 1.0 1.1 1.0 Latest Ref Rng & Units 09/12/2011 ANCA Myeloperoxidase Antibody (MPO) 0 - 20 Units Test not performed on samples negative by immunofluorescence. Proteinase-3 Antibody 0 - 20 Units Test not performed on samples negative by immunofluorescence. P-ANCA Fluorescence NEGAT Negative C-ANCA Fluorescence NEGAT Negative Myeloperoxidase Antibody (MPO) 0 - 20 Units Test not performed on samples negative by immunofluorescence. Proteinase-3 Antibody 0 - 20 Units Test not performed on samples negative by immunofluorescence. Latest Ref Rng & Units 10/22/2012 09/08/2014 09/21/2021 10/30/2023 Urinalysis Protein, Urine Negative mg/dL neg Negative PROTEIN UA (POCT) Negative mg/dL Negative Negative RBC, Urine 0 - 3 /HPF 0-3 Imaging / Studies Last XR Hand/Finger - Impression Only XR HAND GENERAL 3V PA/LAT/OBL RIGHT Exam End: 10/04/2021 8:11 AM (Final result) Impression: IMPRESSION: No hand fracture or dislocation. Fringing Machine Operator: ALEXEI Transcribe Date/Time: Oct 04 2021 8:22A Dictated by : NELDA ABREU MD... Last MRI Hand - Impression Only No resulted procedures found. Last XR Chest - Impression Only XR CHEST 2V FRONTAL/LAT Exam End: 09/30/2024 3:01 PM (Final result) Impression: IMPRESSION: No acute radiographic abnormality. ... Last XR Cervical Spine - Impression Only XR CERV OTHER 4V AP/LAT/OBL Collected: 07/29/2017 4:26 PM (Final result) Impression: IMPRESSION: LIMITED EXAM WITH STABLE POSTSURGICAL AND DEGENERATIVE CHANGE Fringing Machine Operator: ALEXEI Transcribe Date/Time: Jul 29 2017 4:59P Dictated by : HILDA PRINCE MD... Review of Systems Review of Systems CONSTITUTION: Negative for: Fever and Recent weight change HEENT: Negative for: Mouth sores and Dry mouth RESPIRATORY: Positive for: Cough GASTROINTESTINAL: Negative for: Diarrhea and Heartburn MUSCULOSKELETAL: Positive for: Arthralgias, Joint swelling and Morning Joint Stiffness Negative for: Myalgias and Muscle weakness NEUROLOGICAL: Negative for: Headaches and Numbness SKIN: Negative for: Rash and Skin changes EYES: Negative for: Eye pain, Eye redness and Eye dryness CARDIOVASCULAR: Negative for: Chest pain and Leg swelling GENITOURINARY: Negative for: Dysuria and Hematuria HEMATOLOGIC/LYMPHATIC: All other reviewed and negative other than HPI. Problem List ACTIVE PROBLEM LIST Anxiety State Generalized Convulsive Epilepsy (Hcc) Other Emphysema (Hcc) Epigastric Pain Low Back Pain Ddd (Degenerative Disc Disease), Cervical Nerve Sheath Tumor Rls (Restless Legs Syndrome) Migraine Headache Falls Palpitations Positive Ppd Insomnia Cervicalgia Left-Sided Low Back Pain With Left-Sided Sciatica Hnp (Herniated Nucleus Pulposus), Lumbar Rheumatoid Arthritis Involving Multiple Sites With Positive Rheumatoid Factor (Hcc) Dry Eye Syndrome Hyperlipidemia Pain in Toe of Left Foot Prediabetes Constipation, Unspecified Left Sided Colitis Without Complications (Hcc) Syncope Orthostatic Hypotension Steatorrhea, Pancreatic (Hcc) Pancreas Divisum Severe Protein-Calorie Malnutrition (Hcc) Abscess Abscess of Abdominal Cavity (Hcc) Other Chest Pain Nausea & Vomiting Bilateral Carotid Artery Stenosis Past Medical History PAST MEDICAL HISTORY Diagnosis Date Acute hepatitis C without mention of hepatic coma(070.51) negative RNA in 2016 Acute left ankle pain 12/18/2017 Acute pneumonia 01/15/2022 Anxiety state 05/29/2005 Dr. 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 Not on medications, not seeing neurology. 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 Choi-ID Prediabetes Psoriasis Rheumatoid arthritis involving multiple sites with positive rheumatoid factor (HCC) 12/13/[address] Bowden RLS (restless legs syndrome) 08/29/2011 Vasovagal syncope Vitamin D deficiency Past Surgical History PAST SURGICAL HISTORY Procedure Laterality Date BACK SURGERY HX 09/27/2022 CHOLECYSTECTOMY [id number] lap COCHLEAR IMPLANT HX COLONOSCOPY FLX DX W/COLLJ SPEC WHEN PFRMD 10/11/2009 Colonoscopy COLONOSCOPY FLX DX W/COLLJ SPEC WHEN PFRMD 09/30/2018 Colonoscopy EGD EUS N/A 04/06/2020 diffusely dilated PD, suspected pancreas divisum, mild duodenitis ESOPHAGOGASTRODUODENOSCOPY TRANSORAL DIAGNOSTIC 09/30/2018 EGD IR VASCULAR ACCESS TEAM PICC INSERTION RADIO 02/08/2022 OPEN TREATMENT NASAL FRACTURE UNCOMPLICATED x2 no breathing problems PAST SURGICAL HISTORY OF X 2 PAST SURGICAL HISTORY OF FACIAL RECONSTRUCTION PAST SURGICAL HISTORY OF 1997 BILAT. SHOULDER SURGERY PAST SURGICAL HISTORY OF 1994 CERVICAL SPINE FUSION C4, C5 (had cervical fx x3 - even after repair) PAST SURGICAL HISTORY OF 1969 LEFT EAR CHOLESTEATOMA PAST SURGICAL HISTORY OF CLEFT LIP PAST SURGICAL HISTORY OF 02/2006 lasik PAST SURGICAL HISTORY OF 2004 bladder sling PAST SURGICAL HISTORY OF 08/09/2020 Upper endoscopy, percutaneous endoscopic gastrostomy (PEG) tube placed PEG TUBE REMV CATARACT EXTRACAP,INSERT LENS Bilateral TRACHEOSTOMY EMERGENCY PROCEDURE TRANSTRACHEAL age 3 or 4 during surgery; lost airway Family History FAMILY HISTORY Problem Relation Age of Onset Stroke Mother Hypertension Mother Diabetes Father Cancer Father melanoma Kidney transplant Father Thyroid Cancer Sister Breast Cancer Sister Thyroid Cancer Sister Breast Cancer Sister Prostate Cancer Brother Cancer Brother 21 testicular Breast Cancer Maternal Aunt Cancer Other C-bdpnes-Iyefmqwssu Social History Social History Tobacco Use Smoking status: Every Day Average packs/day: 1 pack/day for 30.0 years (30.0 ttl pk-yrs) Types: Cigarettes Start date: 06/02/1987 Last attempt to quit: 06/02/2017 Years since quittin.4 Smokeless tobacco: Never Tobacco comments: 04/18ppd 10/21/2024 Vaping Use Vaping status: Never Used Substance Use Topics Alcohol use: No Drug use: No Comment: IV DRUG USER Medications Current Outpatient Medications Medication Sig hydrOXYchloroQUINE (PLAQUENIL) 200 mg tablet Take 1 tablet by mouth once daily. budesonide-formoterol (SYMBICORT) 160-4.5 mcg/actuation inhaler Inhale 2 puffs as instructed two times a day. cholecalciferol, Vitamin D3, (VITAMIN D3) 1,250 mcg (50,000 unit) cap capsule Take 1 capsule by mouth one time a week. magnesium oxide (MAG-OX) 400 mg (241.3 mg magnesium) tablet Take 1 tablet by mouth once daily. bnuleh-cexgtqjv-wrvlxnz (CREON) 6,000-19,000 -30,000 unit delayed release capsule Take 2 capsules by mouth with meals and at bedtime. folic acid 1 mg tablet Take 1 tablet by mouth once daily. Take with breakfast tiotropium bromide (SPIRIVA RESPIMAT) 2.5 mcg/actuation inhaler Inhale 2 puffs as instructed once daily. tiotropium bromide (SPIRIVA RESPIMAT) 2.5 mcg/actuation inhaler Inhale 2 puffs as instructed once daily. rizatriptan (MAXALT) 10 mg tablet Take 1 tablet by mouth at onset of headache. May repeat after 1hr omega-3 fatty acids 1,000 mg cap Take 2 capsules by mouth once daily. polyethylene glycol 3350 (MIRALAX) 17 gram/dose powder Take 17 g by mouth two times a day as neededfor constipation. varenicline (CHANTIX) 1 mg tablet Take 1 tablet by mouth two times a day with meals. Start this dose day 8, continue at least 11 weeks, my refill for up to one year varenicline (CHANTIX) 0.5 mg tablet Days 1 to 3: Take 0.5 mg once daily. Days 4 to 7: 0.5 mg twice daily. Then take 1 mg twice daily for at least 11 weeks. Choose a fixed quit smoking date or a gradual discontinuation of smoking with a stop date within the first twelve weeks. 3 Blood Pressure Monitor (BLOOD PRESSURE KIT) 1 Each once daily as needed. Dx: recurrent syncope R55 FINGER PULSE OXIMETER 1 Each once daily. Miscellaneous Medical Supply Hospital Bed--Extra long. Note: prior hospital bed broke due to long lower extremities pushing on foot of the bed albuterol HFA (VENTOLIN HFA) 90 mcg/actuation inhaler Inhale 2 Puffs as instructed every 4 hours asneeded for wheezing/shortness of breath. cyanocobalamin (VITAMIN B-12) 1,000 mcg tab Take 1 tablet by mouth once daily. Miscellaneous Medical Supply Theraworx topical foam for muscle cramp and spasm. Apply 1 to 2 pumps to legs or hands as needed for cramping as directed per package directions. rOPINIRole (REQUIP) 1 mg tablet take 1 tablet by mouth once daily omega 4-fmy-xda-fish oil 1,000 mg (250 mg-750 mg)/5 mL liqd Take 1,000 mg by mouth once daily. Nebulizers 1 Each once daily. ALPRAZolam (XANAX) 1 mg tablet Take 1 mg by mouth twice daily. QUEtiapine (SEROQUEL) 100 mg tablet Take 2 tablets by mouth daily at bedtime. Current Facility-Administered Medications Medication Dose Route Frequency Adult Home Parenteral Nutrition 3:1 INTRAVENOUS DAILY Physical Exam There were no vitals taken for this visit. Physical Exam There is currently no information documented on the homunculus. Go to the Rheumatology activity andcomplete the homunculus joint exam. Joint Exam 10/22/2024 No joint exam has been documented for this visit Joint Exam Data (across time) 11/29/2021 02/04/2024 Joint Exam Total Tender 4 12 Total Swollen 0 0 CRP (mg/L) 20 Medical Decision Making: Problems: Moderate: 1+ chronic illnesses with change Data: Unique test result(s) reviewed: 3+ Risk: Moderate: Moderate risk from testing/treatment and Drug management Medical Decision Making Level: 4 - Moderate documented in [facility] [place] NotePromedica [facility] Miscellaneous Notes* Telephone Encounter - Natasha Duong MA - 10/22/2024 9:41 AM EDT Called pt back, and offered her Phone Call appointment with Deloris ,as pt doesn't know how to do Zoom appt. Offered her an appointment for today at 2 pm Pt accepted the appt and pt is scheduled Natasha Duong MA * Telephone Encounter - Janine Webster - 10/22/2024 9:27 AM EDT Patient called back * Telephone Encounter - Lyssa Hawkins MA - 10/22/2024 8:11 AM EDT Called again and message left, see below. * Telephone Encounter - Lyssa Hawkins MA - 10/21/2024 3:30 PM EDT Called and message left to call us back. She will need a visit with Deloris to have new documentation about the efficacy of the Orencia injections for her. 10/22/24 there are video visits available, if she is able to do any of the visits, please schedule her, or transfer to rheumatology. * Telephone Encounter - Lyssa Hawkins MA - 10/20/2024 2:34 PM EDT We will need more information to have the prior authorization done for the medication Orencia. See last office visit 02/04/24, does not reflect that she is using the medication or not, and she has prescription for it, but the TB test was positive and no conclusion on that one. Sending this information to the insurance will not be sufficient to get an approval. Please advise. * Telephone Encounter - Lyssa Hawkins MA - 10/12/2024 2:14 PM EDT The injections Orencia needs prior authorization. Initiated on Covermymeds DAVID BERG (Soto: [id number]) DARREN . In the process of filling the questions out, noticed that the TB test done on 09/03/24 was positive.No outcome noted. I will need more information in order to complete the prior authorization. We will have to discuss this with Deloris Juarez NP, she is on vacation, we will reach out upon her return. documented in this encounterSelect [facility] [place]-2025 Telephone encounter Note * Telephone Encounter - Natasha Duong MA - 10/22/2024 9:41 AM EDT Called pt back, and offered her Phone Call appointment with Deloris ,as pt doesn't know how to do Zoom appt. Offered her an appointment for today at 2 pm Pt accepted the appt and pt is scheduled Natasha Duong MA [facility]07-10-2025 Telephone encounter Note* Telephone Encounter - Janine Webster - 10/22/2024 9:27 AM EDT Patient called back [facility]07-10-20[facility] Telephone encounter Note* Telephone Encounter - Lyssa Hawkins MA - 10/22/2024 8:11 AM EDT Called again and message left, see below. [facility]07-09-2025 Telephone encounter Note* Telephone Encounter - Lyssa Hawkins MA - 10/21/2024 3:30 PM EDT Called and message left to call us back. She will need a visit with Deloris to have new documentation about the efficacy of the Orencia injections for her. 10/22/24 there are video visits available, if she is able to do any of the visits, please schedule her, or transfer to rheumatology. [facility]07-09-[facility] Instructions* Patient Instructions* Kylah Mcnamara APRN.ALMOND ROASTER - 10/21/2024 1:43 PM EDT Continue your current inhalers with Symbicort, Spiriva and Albuterol as needed. Make sure you are waiting at least 4 hours between doses of Albuterol. Rinse your mouth out well after you use the Symbicort inhaler. Obtain a flutter valve. You can also try also taking Mucinex if your sputum is thick and hard to cough up. Follow-up in 4 months. I highly recommend starting Chantix. Quitting smoking is one of the best things you can do for yourlung health. Make sure rheumatology is aware of the wound you are being treated for. documented in this encounterSelect [facility] [place]-2025 History of Present illness Narrative* Kylah Mcnamara APRN.CNP - 10/21/2024 1:00 PM EDT Images from the original note were not included. Pulmonary Medicine Patients name: David Berg PCP: Greg Abrams MD CC: follow-up COPD HPI: David Berg is a 69 year old female current [id number] smoker, (had previously quit in 2017 until 2022) with PMH significant for longstanding rheumatoid arthritis, COPD, history of bulimia,hepatitis C status posttreatment, chronic pancreatitis with insufficiency and history of PEG tube placement, HLD, HTN, history of nephrotic syndrome, positive PPD without tuberculosis, psoriasis. Newpatient 08/17/24 for cough and recurrent bronchitis. PFT showed moderate obstruction with improvementin her small airways post bronchodilator. Advised using flutter valve and increased to triple therapy. Current inhaled therapy with Symbicort and Spiriva. She presents today for follow-up. Since her last visit, she completed chest CT which showed mild emphysema but did not reveal any other significant abnormalities. Today, she reports she continues to cough, has noted some improvement but still can't lay flat. Sputum is typically clear but is sometimes yellow. Did not obtain flutter valve to help mobilize sputum. Wheezing has improved. No chest tightness. Exertional dyspnea with a lot of walking. No fevers, chills, or night sweats. No recent hospitalizations or ED visits or upperrespiratory infections. Has not needed steroids/antibiotics related to breathing. Albuterol use is a 3-4x a day. Currently smoking 5 cigarettes a day. Was previously prescribed Chantix but hasn't started. 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 Per patient, it has not been healing well and causing her pain. PAST MEDICAL HISTORY Diagnosis Date Acute hepatitis C without mention of hepatic coma(070.51) negative RNA in 2015 Acute left ankle pain 12/18/2017 Acute pneumonia 01/15/2022 Anxiety state 05/29/2005 Dr. 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 Not on medications, not seeing neurology. 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 Choi-ID Prediabetes Psoriasis Rheumatoid arthritis involving multiple sites with positive rheumatoid factor ([facility]) 12/13/[address] Bowden RLS (restless legs syndrome) 08/29/2011 Vasovagal syncope Vitamin D deficiency Allergies: Acetaminophen Other: See Comments Comment:pt told not to take due to liver damage Bupropion Other: See Comments Comment:unable to urinate Bupropion Hcl Unknown Codeine Rash, Itching Darvon [Propoxyphen* Itching Daypro [Oxaprozin] Rash Effexor [Venlafaxin* Intolerance Comment:decreased libido Flexeril [Cyclobenz* GI Upset, Vomiting Gabapentin Mental Status Change Comment:hangover Ibuprofen Other: See Comments Comment:pt was told not to take due to kindey damage Stebbins [Hydrocodone-* GI Upset, Itching Comment:nausea, itching Oxybutynin Other: See Comments Comment:Urinary retention Pentazocine Itching [place] Trees [Trees] Comment:rash Tramadol Intolerance Medication List Accurate as of October 21, 2024 1:29 PM. If you have any questions, ask your nurse or doctor. START taking these medications budesonide-formoterol 160-4.5 mcg/actuation inhaler Commonly known as: SYMBICORT Inhale 2 puffs as instructed two times a day. Started by: Kylah Mcnamara APRN.ALMOND ROASTER CONTINUE taking these medications albuterol HFA 90 mcg/actuation inhaler Commonly known as: VENTOLIN HFA Inhale 2 Puffs as instructed every 4 hours as needed for wheezing/shortness of breath. ALPRAZolam 1 mg tablet Commonly known as: XANAX Blood Pressure Monitor Commonly known as: BLOOD PRESSURE KIT 1 Each once daily as needed. Dx: recurrent syncope R55 cholecalciferol (Vitamin D3) 1,250 mcg (50,000 unit) Cap capsule Commonly known as: VITAMIN D3 Take 1 capsule by mouth one time a week. CREON 6,000-19,000 -30,000 unit delayed release capsule Generic drug: ktcaly-frwxmpam-glqkrae Take 2 capsules by mouth with meals and at bedtime. cyanocobalamin 1,000 mcg Tab Commonly known as: VITAMIN B-12 Take 1 tablet by mouth once daily. FINGER PULSE OXIMETER 1 Each once daily. folic acid 1 mg tablet Take 1 tablet by mouth once daily. Take with breakfast magnesium oxide 400 mg (241.3 mg magnesium) tablet Commonly known as: MAG-OX Take 1 tablet by mouth once daily. * Miscellaneous Medical Supply Theraworx topical foam for muscle cramp and spasm. Apply 1 to 2 pumps to legs or hands as needed for cramping as directed per package directions. *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 difficulty expectorating phlegm. She states she will have coughing fits and eventually is able to expectorate phlegm that is mainly clear, sometimes yellow, no hemoptysis. She cannot lie flat due to coughing. She has heard some occasional wheezing. No significant dyspnea on exertion. Denies GERD symptoms. Pulmonary function test performed several months ago shows moderate obstruction with improvement in her small airways postbronchodilator. She had a sputum culture performed in March which was significant for gram-negative organisms, not Pseudomonas. She denies any current fevers, chills, chest pain. She is thin but has not had any recent weight loss DATA: SERVICE DATE: 08/17/2024 SERVICE TIME: 12:52 PM Oral Exhaled Nitric Oxide measurement: 28.0 (ppb) PFT 04/2024: Spirometry shows moderate obstruction with improvement in small airways postbronchodilator Labs: Sputum culture 03/2024: Culture Few Citrobacter freundii complex Abnormal Few normal respiratory esthela Abnormal Rare Escherichia coli Abnormal Rare Chryseobacterium gleum Abnormal Culture Many normal respiratory esthela Abnormal Few Chryseobacterium gleum Abnormal Imaging / Diagnostic Studies: DATE OF EXAM: Mar 26 2024 3:26PM WOX 5291 - XR CHEST 2V FRONTAL/LAT / CLINICAL HISTORY: COPD with exacerbation (HCC) Pneumonia of both lower lobes due to infectious organism MQ: [id number] EXAM DATE/TIME: 03/26/2024 3:26 PM COMPARISON: Chest x-ray 03/19/2022 RESULT: Lines, tubes, and devices: None. Lungs and pleura: No consolidation. No lung mass. No pleural effusion. No pneumothorax. Cardiomediastinal silhouette: Normal cardiomediastinal silhouette. Bones and soft tissues: Prior vertebroplasty at T11 and T12. Chest x-ray pertinent for tuboplasty and chronic changes PAST MEDICAL HISTORY Diagnosis Date Acute hepatitis C without mention of hepatic coma(070.51) negative RNA in 2016 Acute left ankle pain 12/18/2017 Acute pneumonia 01/15/2022 Anxiety state 05/29/2005 Dr. 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 Not on medications, not seeing neurology. 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 Choi-ID Prediabetes Psoriasis Rheumatoid arthritis involving multiple sites with positive rheumatoid factor (HCC) 12/13/[address] Bowden RLS (restless legs syndrome) 08/29/2011 Vasovagal syncope Vitamin D deficiency ALLERGIES Allergen Reactions Acetaminophen Other: See Comments pt told not to take due to liver damage Bupropion Other: See Comments unable to urinate Bupropion Hcl Unknown Codeine Rash, Itching Darvon [Propoxyphen* Itching Daypro [Oxaprozin] Rash Effexor [Venlafaxin* Intolerance decreased libido Flexeril [Cyclobenz* GI Upset, Vomiting Gabapentin Mental Status Change hangover Ibuprofen Other: See Comments pt was told not to take due to kindey damage Stebbins [Hydrocodone-* GI Upset, Itching nausea, itching Oxybutynin Other: See Comments Urinary retention Pentazocine Itching Iberia Trees [Trees] rash Tramadol Intolerance polyethylene glycol 3350 (MIRALAX) 17 gram/dose powder^Take 17 g by mouth two times a day as neededfor constipation.^Disp: 507 g^Rfl: 1 ORENCIA 125 mg/mL injection^INJECT THE CONTENTS OF 1 SYRINGE (125 MG) UNDER THE SKIN ONCE EACH WEEK^Disp: 4 mL^Rfl: 0 folic acid 1 mg tablet^Take 1 tablet by mouth once daily. Take with breakfast^Disp: 30 tablet^Rfl: 2 ergocalciferol 50,000 unit capsule (VITAMIN D2, DRISDOL)^Take 1 capsule by mouth one time a week.^Disp: 12 capsule^Rfl: 1 magnesium oxide (MAG-OX) 400 mg (241.3 mg magnesium) tablet^Take 1 tablet by mouth once daily.^Disp: 30 tablet^Rfl: 2 albuterol HFA (VENTOLIN HFA) 90 mcg/actuation inhaler^Inhale 2 Puffs as instructed every 4 hours asneeded for wheezing/shortness of breath.^Disp: 1 Each^Rfl: 1 rizatriptan (MAXALT) 10 mg tablet^Take 1 tablet by mouth at onset of headache. May repeat after 1hr^Disp: 24 tablet^Rfl: 0 cyanocobalamin (VITAMIN B-12) 1,000 mcg tab^Take 1 tablet by mouth once daily.^Disp: 90 tablet^Rfl:3 omega-3 fatty acids 1,000 mg cap^Take 2 capsules by mouth once daily.^Disp: 60 capsule^Rfl: 12 uqmdvj-qcocebuq-rahybbi (CREON) 6,000-19,000 -30,000 unit delayed release capsule^Take 2 capsules by mouth with meals and at bedtime.^Disp: 240 capsule^Rfl: 0 OTEZLA 30 mg tablet^Take 30 mg by mouth once daily.^Disp: ^Rfl: rOPINIRole (REQUIP) 1 mg tablet^take 1 tablet by mouth once daily^Disp: 30 tablet^Rfl: 5 ALPRAZolam (XANAX) 1 mg tablet^Take 1 mg by mouth twice daily.^Disp: ^Rfl: QUEtiapine (SEROQUEL) 100 mg tablet^Take 2 tablets by mouth daily at bedtime.^Disp: 180 tablet^Rfl:1 urqbwnunib-qvuwtszu-mdodrtxtsi (BREZTRI AEROSPHERE) 160-9-4.8 mcg/actuation HFA aerosol inhaler^Inhale 2 puffs as instructed two times a day.^Disp: 1 each^Rfl: 11 varenicline (CHANTIX) 1 mg tablet^Take 1 tablet by mouth two times a day with meals. Start this dose day 8, continue at least 11 weeks, my refill for up to one year^Disp: 90 tablet^Rfl: 1 varenicline (CHANTIX) 0.5 mg tablet^Days 1 to 3: Take 0.5 mg once daily. Days 4 to 7: 0.5 mg twice daily. Then take 1 mg twice daily for at least 11 weeks. Choose a fixed quit smoking date or a gradual discontinuation of smoking with a stop date within the first twelve weeks. 3^Disp: 11 tablet^Rfl:0 predniSONE (DELTASONE) 10 mg tablet^Take two tablets for 5 days then one tablet for 5 days then discontinue^Disp: 15 tablet^Rfl: 0 (Patient not taking: Reported on 07/25/2024) Blood Pressure Monitor (BLOOD PRESSURE KIT)^1 Each once daily as needed. Dx: recurrent syncope R55^Disp: 1 Kit^Rfl: 0 FINGER PULSE OXIMETER^1 Each once daily.^Disp: 1 Each^Rfl: 0 benzonatate (TESSALON PERLE) 100 mg capsule^Take 1-2 capsules by mouth three times a day as needed.^Disp: 60 capsule^Rfl: 1 Miscellaneous Medical Supply^Hospital Bed--Extra long. Note: prior hospital bed broke due to long lower extremities pushing on foot of the bed^Disp: 1 Each^Rfl: 0 pglobj-qwxuisjs-qbpwyzq (CREON) 6,000-19,000 -30,000 unit delayed release capsule^Take 2 capsules by mouth with meals and at bedtime for 5 days.^Disp: 40 capsule^Rfl: 0 Miscellaneous Medical Supply^Theraworx topical foam for muscle cramp and spasm. Apply 1 to 2 pumps to legs or hands as needed for cramping as directed per package directions.^Disp: 1 Each^Rfl: 5 omega 5-njo-rdn-fish oil 1,000 mg (250 mg-750 mg)/5 mL liqd^Take 1,000 mg by mouth once daily.^Disp: 90 mL^Rfl: 1 Nebulizers^1 Each once daily.^Disp: 1 Each^Rfl: 0 Social History Tobacco Use Smoking status: Former Average packs/day: 1 pack/day for 30.0 years (30.0 ttl pk-yrs) Types: Cigarettes Start date: 06/02/1987 Quit date: 06/02/2017 Years since quittin.2 Smokeless tobacco: Never Vaping Use Vaping status: Never Used Substance Use Topics Alcohol use: No Drug use: No Comment: IV DRUG USER Pets: None FAMILY HISTORY Problem Relation Age of Onset Stroke Mother Hypertension Mother Diabetes Father Cancer Father melanoma Kidney transplant Father Thyroid Cancer Sister Breast Cancer Sister Thyroid Cancer Sister Breast Cancer Sister Prostate Cancer Brother Cancer Brother 21 testicular Breast Cancer Maternal Aunt Cancer Other K-mfboki-Ouiwunldvz PAST SURGICAL HISTORY Procedure Laterality Date BACK SURGERY HX 09/27/2022 CHOLECYSTECTOMY [id number] lap COCHLEAR IMPLANT HX COLONOSCOPY FLX DX W/COLLJ SPEC WHEN PFRMD 10/11/2009 Colonoscopy COLONOSCOPY FLX DX W/COLLJ SPEC WHEN PFRMD 09/30/2018 Colonoscopy EGD EUS N/A 04/06/2020 diffusely dilated PD, suspected pancreas divisum, mild duodenitis ESOPHAGOGASTRODUODENOSCOPY TRANSORAL DIAGNOSTIC 09/30/2018 EGD IR VASCULAR ACCESS TEAM PICC INSERTION RADIO 02/08/2022 OPEN TREATMENT NASAL FRACTURE UNCOMPLICATED x2 no breathing problems PAST SURGICAL HISTORY OF X 2 PAST SURGICAL HISTORY OF FACIAL RECONSTRUCTION PAST SURGICAL HISTORY OF 1997 BILAT. SHOULDER SURGERY PAST SURGICAL HISTORY OF 1994 CERVICAL SPINE FUSION C4, C5 (had cervical fx x3 - even after repair) PAST SURGICAL HISTORY OF 1969 LEFT EAR CHOLESTEATOMA PAST SURGICAL HISTORY OF CLEFT LIP PAST SURGICAL HISTORY OF 02/2006 lasik PAST SURGICAL HISTORY OF 2004 bladder sling PAST SURGICAL HISTORY OF 08/09/2020 Upper endoscopy, percutaneous endoscopic gastrostomy (PEG) tube placed PEG TUBE REMV CATARACT EXTRACAP,INSERT LENS Bilateral TRACHEOSTOMY EMERGENCY PROCEDURE TRANSTRACHEAL age 3 or 4 during surgery; lost airway PMH, Social history, family history and surgical history reviewed and updated in EMR REVIEW OF SYSTEMS: CONSTITUTIONAL: No fevers, chills, nightsweats, unintended weight loss HEENT: Denies nasal congestion/sinus symptoms, allergy problems. EYES: Visual changes CARDIOVASCULAR: No chest pain, palpitations, orthopnea, edema. Cannot lie flat due to coughing PULM: See HPI GI: No dysphagia/odynophagia, problematic reflux. NEURO: No balance problems, peripheral weakness/paresthesias or numbness of concern. MUSC-SKEL: Polyarticular joint pain and back pain PSY: No concerns regarding depression, anxiety INTEGUMENTARY: Psoriasis PHYSICAL EXAMINATION: BP 112/70 Pulse 92 Resp 17 Wt 118 lb (53.5kg) SpO2 95% General Appearance: Thin female, NAD. Skin: Skin color, texture, turgor normal, no suspicious rashes or lesions. Head: Normocephalic, no masses, lesions, tenderness or abnormalities. Eyes: Sclera, conjunctiva normal. Oropharynx: No oral lesions. Neck: No masses or adenopathy. Lungs: Not labored, normal percussion, few crackles on the right. Heart: Regular rate and rhythm, no murmurs. Extremities: No edema or clubbing. Musculoskeletal: No major joint deformities. Assessment/Plan: 1. Moderate COPD -Changed inhaled therapy to Breztri -Bronchopulmonary hygiene with Acapella/flutter device twice daily 2. Recurrent pneumonia -Clinical history and underlying longstanding rheumatoid arthritis concerning for possible bronchiectasis -Chest CT 3. Rheumatoid arthritis multiple sites -Disease modifying drug therapy per rheumatology 4. Former cigarette smoker -Former smoker sequelae of COPD -Continue abstinence - Qualifies for lung cancer screening based on smoking history, age, and duration of cessation lessthan 15 years Emi Jones MD [facility] [place] documented in [facility] encounter[facility] [place] NoteProm[facility] Tele[facility] encounter Note* Telephone Encounter - Judith Cordova LPN - 08/17/2024 1:06 PM EDT Patient phones requesting refills as follows: Requested Prescriptions Pending Prescriptions Disp Refills rizatriptan (MAXALT) 10 mg tablet 24 tablet 0 Sig: Take 1 tablet by mouth at onset of headache. May repeat after 1hr omega-3 fatty acids 1,000 mg cap 60 capsule 12 Sig: Take 2 capsules by mouth once daily. Please review and advise. Judith Cordova LPN [facility] [place]05-05-2025 NotePromed[facility] Procedure note* Chelsey Hemphill RPFT - 08/17/2024 12:52 PM EDTAssociated Order(s): NITRIC OXIDE, EXHALED RESPIRATORY THERAPY ORAL EXHALED NITRIC OXIDE SERVICE DATE: 08/17/2024 SERVICE TIME: 12:52 PM Oral Exhaled Nitric Oxide measurement: 28.0 (ppb) Normal: Adult <25 ppb, pediatric (<12 years) <20 ppb High Normal / Increased: Adult 25-50 ppb, pediatric (<12 years) 20-35 ppb Moderately raised exhaled Nitric Oxide may indicate underlying inflammation, but note that: Cold and influenza can raise exhaled Nitric Oxide and some patients have higher baseline exhaled Nitric Oxide levels than others. High: Adult >50 ppb, pediatric (<12 years) >35 ppb Indicative of ongoing eosinophilic inflammation. Symptomatic patient likely to respond to steroids. Possible causes (if already on steroids): Poor compliance, recent allergen exposure, steroid dose inadequate, and steroid resistance. Note that not all patients with high exhaled nitric oxide levels display symptoms. Oral Exhaled Nitric Oxide measurement (Previous Encounters) Test Date Oral Exhaled Nitric Oxide (ppb) 08/17/2024 28.0 NAME: RICH Link PATIENT NAME: David Berg DATE: August 17, 2024 TIME: 12:52 PM [facility] [place]05-05-2025 Procedure note* Chelsey Hemphill RPFT - 08/17/2024 12:52 PM EDTAssociated Order(s): NITRIC OXIDE, EXHALED RESPIRATORY THERAPY ORAL EXHALED NITRIC OXIDE SERVICE DATE: 08/17/2024 SERVICE TIME: 12:52 PM Oral Exhaled Nitric Oxide measurement: 28.0 (ppb) Normal: Adult <25 ppb, pediatric (<12 years) <20 ppb High Normal / Increased: Adult 25-50 ppb, pediatric (<12 years) 20-35 ppb Moderately raised exhaled Nitric Oxide may indicate underlying inflammation, but note that: Cold and influenza can raise exhaled Nitric Oxide and some patients have higher baseline exhaled Nitric Oxide levels than others. High: Adult >50 ppb, pediatric (<12 years) >35 ppb Indicative of ongoing eosinophilic inflammation. Symptomatic patient likely to respond to steroids. Possible causes (if already on steroids): Poor compliance, recent allergen exposure, steroid dose inadequate, and steroid resistance. Note that not all patients with high exhaled nitric oxide levels display symptoms. Oral Exhaled Nitric Oxide measurement (Previous Encounters) Test Date Oral Exhaled Nitric Oxide (ppb) 08/17/2024 28.0 NAME: RICH Link PATIENT NAME: David Berg DATE: August 17, 2024 TIME: 12:52 PM documented in this encounterSelect [facility] [place] Telephone encounter Note * Telephone Encounter - Vanessa Tadeo RN - 08/17/2024 10:20 AM EDT Images from the original note were not included. Most recent Rheumatology visit: 02/04/2024 (with Deloris Juarez) Last Bone Density on file: 12/14/2022 Rheumatology Care Team: None on file Recent Office Visits - This Specialty 02/04/2024 Rheumatoid arthritis involving multiple sites with positive rheumatoid factor (HCC) Rheumatology Deloris Juarez, LEARNING DISABILITIES TEACHER.[employer]MOND ROASTER 11/29/2021 Inflammatory arthritis Rheumatology Deloris Juarez APRN.[employer] ROASTER 01/12/2019 Rheumatoid arthritis involving multiple sites with positive rheumatoid factor (HCC) Rheumatology Deloris Juarez (Capper Machine Operator) Upcoming Rheumatology Appointments - Next 365 Days No appointments to display CBC: Latest Ref Rng & Units 02/04/2024 03/26/2024 CBC WBC 3.70 - 11.00 k/uL 6.54 6.24 Hemoglobin 11.5 - 15.5 g/dL 15.7 15.3 Hematocrit 36.0 - 46.0 % 45.7 46.8 Platelet Count 150 - 400 k/uL 230 294 Abs Neut (ANC) 1.45 - 7.50 k/uL 4.85 Abs Lymph 1.00 - 4.00 k/uL 1.29 Vitamin D: None on file in the last 6 months LFT: Latest Ref Rng & Units 02/04/2024 03/26/2024 CMP Sodium 136 - 144 mmol/L 142 144 Potassium 3.7 - 5.1 mmol/L 3.6 4.5 Chloride 98 - 107 mmol/L 103 103 CO2 22 - 30 mmol/L 28 28 Glucose 74 - 99 mg/dL 91 140 BUN 7 - 21 mg/dL 6 11 Creatinine 0.58 - 0.96 mg/dL 0.70 0.84 Calcium 8.5 - 10.2 mg/dL 10.7 10.9 AST 13 - 35 U/L 37 33 ALT 7 - 38 U/L 22 24 Alkaline Phosphatase 34 - 123 U/L 80 78 Hepatic Function: Creatinine: Latest Ref Rng & Units 02/04/2024 03/26/2024 Creatinine Creatinine 0.58 - 0.96 mg/dL 0.70 0.84 ESR/CRP: None on file in the last 6 months Uric Acid: None on file in the last 6 months Open Standing (Multiple Instance) Lab Orders None Open Future (Single Instance) Lab Orders Expected Expires Ordered VITAMIN B12 [SQB12] 09/13/24 01/28/25 07/14/24 Auth. provider: Greg Abrams MD Assoc. diagnoses: Macrocytosis without anemia, Encounter for long-term current use of medication LIPID PANEL, FASTING [SQLIPB] 09/13/24 09/13/24 07/14/24 Auth. provider: Greg Abrams MD Assoc. diagnoses: Hyperlipidemia, unspecified hyperlipidemia type, Encounter for long-term current use of medication FOLATE, SERUM [SQSERFOL] 09/13/24 01/28/25 07/14/24 Auth. provider: Greg Abrams MD Assoc. diagnoses: Macrocytosis without anemia, Encounter for long-term current use of medication COMPREHENSIVE METABOLIC PANEL [SQCMP] 09/13/24 01/28/25 07/14/24 Auth. provider: Greg Abrams MD Assoc. diagnoses: Hyperkalemia, Encounter for long-term current use of medication COMPLETE BLOOD COUNT AND DIFFERENTIAL [SQCBCDIF] 09/13/24 01/28/25 07/14/24 Auth. provider: Greg Abrams MD Assoc. diagnoses: Macrocytosis without anemia, Encounter for long-term current use of medication VITAMIN D 25 HYDROXY [SQVITD] 09/13/24 12/13/24 07/14/24 Auth. provider: Greg Abrams MD Assoc. diagnoses: Vitamin D deficiency, Encounter for long-term current use of medication MAGNESIUM [SQMG1] 09/13/24 12/13/24 07/14/24 Auth. provider: Greg Abrams MD Assoc. diagnoses: Encounter for long-term current use of medication [facility] [place]05-05-2025 Miscellaneous Notes* Telephone Encounter - Vanessa Tadeo RN - 08/17/2024 10:20 AM EDT Images from the original note were not included. Most recent Rheumatology visit: 02/04/2024 (with Deloris Juarez) Last Bone Density on file: 12/14/2022 Rheumatology Care Team: None on file Recent Office Visits - This Specialty 02/04/2024 Rheumatoid arthritis involving multiple sites with positive rheumatoid factor (HCC) Rheumatology Deloris Juarez, LEARNING DISABILITIES TEACHER.[employer]D ROASTER 11/29/2021 Inflammatory arthritis Rheumatology Deloris Juarez LEARNING DISABILITIES TEACHER.ALMOND ROASTER 01/12/2019 Rheumatoid arthritis involving multiple sites with positive rheumatoid factor (HCC) Rheumatology Deloris Juarez (Capper Machine Operator) Upcoming Rheumatology Appointments - Next 365 Days No appointments to display CBC: Latest Ref Rng & Units 02/04/2024 03/26/2024 CBC WBC 3.70 - 11.00 k/uL 6.54 6.24 Hemoglobin 11.5 - 15.5 g/dL 15.7 15.3 Hematocrit 36.0 - 46.0 % 45.7 46.8 Platelet Count 150 - 400 k/uL 230 294 Abs Neut (ANC) 1.45 - 7.50 k/uL 4.85 Abs Lymph 1.00 - 4.00 k/uL 1.29 Vitamin D: None on file in the last 6 months LFT: Latest Ref Rng & Units 02/04/2024 03/26/2024 CMP Sodium 136 - 144 mmol/L 142 144 Potassium 3.7 - 5.1 mmol/L 3.6 4.5 Chloride 98 - 107 mmol/L 103 103 CO2 22 - 30 mmol/L 28 28 Glucose 74 - 99 mg/dL 91 140 BUN 7 - 21 mg/dL 6 11 Creatinine 0.58 - 0.96 mg/dL 0.70 0.84 Calcium 8.5 - 10.2 mg/dL 10.7 10.9 AST 13 - 35 U/L 37 33 ALT 7 - 38 U/L 22 24 Alkaline Phosphatase 34 - 123 U/L 80 78 Hepatic Function: Creatinine: Latest Ref Rng & Units 02/04/2024 03/26/2024 Creatinine Creatinine 0.58 - 0.96 mg/dL 0.70 0.84 ESR/CRP: None on file in the last 6 months Uric Acid: None on file in the last 6 months Open Standing (Multiple Instance) Lab Orders None Open Future (Single Instance) Lab Orders Expected Expires Ordered VITAMIN B12 [SQB12] 09/13/24 01/28/25 07/14/24 Auth. provider: Greg Abrams MD Assoc. diagnoses: Macrocytosis without anemia, Encounter for long-term current use of medication LIPID PANEL, FASTING [SQLIPB] 09/13/24 09/13/24 07/14/24 Auth. provider: Greg Abrams MD Assoc. diagnoses: Hyperlipidemia, unspecified hyperlipidemia type, Encounter for long-term current use of medication FOLATE, SERUM [SQSERFOL] 09/13/24 01/28/25 07/14/24 Auth. provider: Greg Abrams MD Assoc. diagnoses: Macrocytosis without anemia, Encounter for long-term current use of medication COMPREHENSIVE METABOLIC PANEL [SQCMP] 09/13/24 01/28/25 07/14/24 Auth. provider: Greg Abrams MD Assoc. diagnoses: Hyperkalemia, Encounter for long-term current use of medication COMPLETE BLOOD COUNT AND DIFFERENTIAL [SQCBCDIF] 09/13/24 01/28/25 07/14/24 Auth. provider: Greg Abrams MD Assoc. diagnoses: Macrocytosis without anemia, Encounter for long-term current use of medication VITAMIN D 25 HYDROXY [SQVITD] 09/13/24 12/13/24 07/14/24 Auth. provider: Greg Abrams MD Assoc. diagnoses: Vitamin D deficiency, Encounter for long-term current use of medication MAGNESIUM [SQMG1] 09/13/24 12/13/24 07/14/24 Auth. provider: Greg Abrams MD Assoc. diagnoses: Encounter for long-term current use of medication [facility] [place] Telephone encounter Note * Telephone Encounter - Jazmine Mcgill - 08/04/2024 8:52 AM EDT Prescription Refill Information The patient has been identified by name and date of : Yes Caregiver verified no other encounters exist for this prescription request: Yes Caregiver confirmed with patient/requestor that no other refills are due, in the near future, with this provider at this time: Yes The last office visit in the department: 04-21-24 Does the patient have a future office visit with this provider/department: Yes Requested Prescriptions Pending Prescriptions Disp Refills polyethylene glycol 3350 (MIRALAX) 17 gram/dose powder 507 g 1 Sig: Take 17 g by mouth two times a day as needed for constipation. Jazmine Allison August 04, 2024 8:52 AM [facility]04-22-2025 Miscellaneous Notes* Telephone Encounter - Jazmine Mcgill - 08/04/2024 8:52 AM EDT Prescription Refill Information The patient has been identified by name and date of : Yes Caregiver verified no other encounters exist for this prescription request: Yes Caregiver confirmed with patient/requestor that no other refills are due, in the near future, with this provider at this time: Yes The last office visit in the department: 04-21-24 Does the patient have a future office visit with this provider/department: Yes Requested Prescriptions Pending Prescriptions Disp Refills polyethylene glycol 3350 (MIRALAX) 17 gram/dose powder 507 g 1 Sig: Take 17 g by mouth two times a day as needed for constipation. Jazmine Allison August 04, 2024 8:52 AM documented in this encounter[facility] [place]04-[facility]25 Evaluation note* Diagnosis Onset Date Resolution Status Admit Date Acute pain of right shoulder inactiv e July 31, 2024 1:26pm [facility] Work Phone: [phone] Radiology Diagnostic study note [facility] Imaging Services [address] [place] [address] Shoulder min 2 Views MR#: [id number] Acct: [id number] Name: DAVID BERG Rep #: [id number] : 1955 F 68 From: Joycelyn Arvizu MD PCP: Dr. Greg Abrams MD Status: RE G ER Study:Shoulder min 2 Views Date of Exam: 07/25/24 Exam# [id number] Ordering Dr: Gala Sears PROCEDURE: SHOULDER MIN 2 VIEWS 07/25/2024 REASON FOR EXAM: PAIN TECHNIQUE: 4 view(s) of the right shoulder COMPARISON: None. FINDINGS: Bones: No acute osseous fracture. No aggressive osseous lesions. Joints: Normal alignment of the acromioclavicular and glenohumeral joints. Soft tissues: Soft tissues are unremarkable. Other: Visualized portions of the right lung are unremarkable. RAD/Shoulder min 2 Views IMPRESSION: NEGATIVE SHOULDER SERIES Reading Location: [facility] CC: Dr. Greg Abrams MD; DARREN Sinha ~ Fringing Machine Operator: Signed [facility]04-12-2025 Radiology Diagnostic study note [facility] Imaging Services [address] [place] [id number] Sinus/Facial Bone MR#: [id number] Acct: [id number] Name: DAVID BERG Rep #: [id number] : 1955 F 68 From: Joycelyn Arvizu MD PCP: Dr. Greg Abrams MD Status: RE G ER Study:Sinus/Facial Bone Date of Exam: Exam# [id number] Ordering Dr: Gala Sears EXAM: SINUS/FACIAL BONE CLINICAL HISTORY: HEAD INJURY COMPARISON: Same-day CT head. TECHNIQUE: Helical CT of the facial bones without IV contrast. Reformatted images are included for review. Dose reduction techniques were used including intermediate exposure control (AEC),iterative reconstruction technique, and/or mA and/or KV dose adjustments based on patient's size. FINDINGS: See CT head for discussion of paranasal sinuses and intracranial findings. Right cochlear implant. Prior right mandibular surgery with wire fixation. Severe right TMJ arthrosis. Asymmetric atrophy or prior surgical removal of the right submandibular and parotid glands. There is no linear lucency, cortical irregularity or bony deformity to suggest acute displaced fracture. 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 Calcific plaque of the cervical carotid arteries. Multiple mandibular periapical lucencies. Maxillary edentulism. No facial softtissue contusion or edema. CT/Sinus/Facial Bone IMPRESSION: No CT evidence of acute maxillofacial fracture. Chronic findings as described. Reading Location: [id number] CC: Dr. Greg Abrams MD; DARREN Sinha ~ Fringing Machine Operator: Signed [facility]04-12-2025 Radiology Diagnostic study note [facility] Imaging Services [address] [place], [place] [address] Brain/Head without Contrast MR#: [id number] Acct: [id number] Name: DAVID BERG Rep #: [id number] : 1955 F 68 From: Joycelyn Arvizu MD PCP: Dr. Greg Abrams MD Status: WY E ER Study:Brain/Head without Contrast Date of Exa m: 07/25/24 Exam# [id number] Ordering Dr: Gala Sears EXAM: BRAIN/HEAD WITHOUT CONTRAST CLINICAL HISTORY: 68 y/o F with FALL. COMPARISON: None. TECHNIQUE: Routine CT imaging of the head without IV contrast. Additional multiplanar reformats were obtained. Dose reduction techniques were used including intermediate exposure control (AEC),iterative reconstruction technique, and/or mA and/or KV dose adjustments based on patient's size. FINDINGS: Visualization is limited by metallic streak artifact. Right cochlear implant. No large intracerebral hematoma. Mild patchy supratentorial white matter hypodensities. The basal cisterns are patent. No ventriculomegaly. Prior ocular lens replacements. The visualized paranasal sinuses are unremarkable. No acute calvarial fracture or scalp hematoma. Severe right TMJ arthrosis. CT/Brain/Head without Contrast IMPRESSION: Visualization limited by streak artifact. No obvious acute intracranial finding. Reading Location: [id number] CC: Dr. Greg Abrams MD; DARREN Sinha ~ Fringing Machine Operator: Signed [facility]04-12[facility]20[facility] History of Present illness Narrative* Bruce Flores, TANYA.ALMOND ROASTER - 07/25/2024 11:10 AM EDT Images from the original note were not included. Subjective HPI Nontoxic-appearing 68-year-old female presents urgent care chief complaint fall. Patient states around a day and a half ago she tripped going up a ramp. States hit her right shoulder and left side ofher face on a wooden deck. States she did lose consciousness for a few minutes. Presents today for evaluation. No other concerns. .Patient presents with: Fall: Right shoulder injury with bruising to Left face/eye PAST MEDICAL HISTORY Diagnosis Date Acute hepatitis C without mention of hepatic coma(070.51) negative RNA in 2016 Acute left ankle pain 12/18/2017 Acute pneumonia 01/15/2022 Anxiety state 05/29/2005 Dr. 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 Not on medications, not seeing neurology. 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 Choi-ID Prediabetes Psoriasis Rheumatoid arthritis involving multiple sites with positive rheumatoid factor (HCC) 12/13/[address] Bowden RLS (restless legs syndrome) 08/29/2011 Vasovagal syncope Vitamin D deficiency PAST SURGICAL HISTORY Procedure Laterality Date BACK SURGERY HX 09/27/2022 CHOLECYSTECTOMY [id number] lap COCHLEAR IMPLANT HX COLONOSCOPY FLX DX W/COLLJ SPEC WHEN PFRMD 10/11/2009 Colonoscopy COLONOSCOPY FLX DX W/COLLJ SPEC WHEN PFRMD 09/30/2018 Colonoscopy EGD EUS N/A 04/06/2020 diffusely dilated PD, suspected pancreas divisum, mild duodenitis ESOPHAGOGASTRODUODENOSCOPY TRANSORAL DIAGNOSTIC 09/30/2018 EGD IR VASCULAR ACCESS TEAM PICC INSERTION RADIO 02/08/2022 OPEN TREATMENT NASAL FRACTURE UNCOMPLICATED x2 no breathing problems PAST SURGICAL HISTORY OF X 2 PAST SURGICAL HISTORY OF FACIAL RECONSTRUCTION PAST SURGICAL HISTORY OF 1997 BILAT. SHOULDER SURGERY PAST SURGICAL HISTORY OF 1994 CERVICAL SPINE FUSION C4, C5 (had cervical fx x3 - even after repair) PAST SURGICAL HISTORY OF 1969 LEFT EAR CHOLESTEATOMA PAST SURGICAL HISTORY OF CLEFT LIP PAST SURGICAL HISTORY OF 02/2006 lasik PAST SURGICAL HISTORY OF 2004 bladder sling PAST SURGICAL HISTORY OF 08/09/2020 Upper endoscopy, percutaneous endoscopic gastrostomy (PEG) tube placed REMV CATARACT EXTRACAP,INSERT LENS Bilateral TRACHEOSTOMY EMERGENCY PROCEDURE TRANSTRACHEAL age 3 or 4 during surgery; lost airway ALLERGIES Acetaminophen, Bupropion, Bupropion Hcl, Codeine, Darvon [Propoxyphene], Daypro [Oxaprozin], Effexor [Venlafaxine Hcl], Flexeril [Cyclobenzaprine Hcl], Gabapentin, Ibuprofen, Stebbins [Hydrocodone-Acetaminophen], Oxybutynin, Pentazocine, [place]ber[place] Trees [Trees], and Tramadol MEDICATIONS ORENCIA 125 mg/mL injection^INJECT THE CONTENTS OF 1 SYRINGE (125 MG) UNDER THE SKIN ONCE EACH WEEK^Disp: 4 mL^Rfl: 0 folic acid 1 mg tablet^Take 1 tablet by mouth once daily. Take with breakfast^Disp: 30 tablet^Rfl: 2 ergocalciferol 50,000 unit capsule (VITAMIN D2, DRISDOL)^Take 1 capsule by mouth one time a week.^Disp: 12 capsule^Rfl: 1 magnesium oxide (MAG-OX) 400 mg (241.3 mg magnesium) tablet^Take 1 tablet by mouth once daily.^Disp: 30 tablet^Rfl: 2 varenicline (CHANTIX) 1 mg tablet^Take 1 tablet by mouth two times a day with meals. Start this dose day 8, continue at least 11 weeks, my refill for up to one year^Disp: 90 tablet^Rfl: 1 varenicline (CHANTIX) 0.5 mg tablet^Days 1 to 3: Take 0.5 mg once daily. Days 4 to 7: 0.5 mg twice daily. Then take 1 mg twice daily for at least 11 weeks. Choose a fixed quit smoking date or a gradual discontinuation of smoking with a stop date within the first twelve weeks. 3^Disp: 11 tablet^Rfl:0 Blood Pressure Monitor (BLOOD PRESSURE KIT)^1 Each once daily as needed. Dx: recurrent syncope R55^Disp: 1 Kit^Rfl: 0 FINGER PULSE OXIMETER^1 Each once daily.^Disp: 1 Each^Rfl: 0 benzonatate (TESSALON PERLE) 100 mg capsule^Take 1-2 capsules by mouth three times a day as needed.^Disp: 60 capsule^Rfl: 1 Miscellaneous Medical Supply^Hospital Bed--Extra long. Note: prior hospital bed broke due to long lower extremities pushing on foot of the bed^Disp: 1 Each^Rfl: 0 budesonide-formoterol (SYMBICORT) 80-4.5 mcg/actuation inhaler^Inhale 2 Puffs as instructed two times a day.^Disp: 1 Each^Rfl: 11 albuterol HFA (VENTOLIN HFA) 90 mcg/actuation inhaler^Inhale 2 Puffs as instructed every 4 hours asneeded for wheezing/shortness of breath.^Disp: 1 Each^Rfl: 1 rizatriptan (MAXALT) 10 mg tablet^Take 1 tablet by mouth at onset of headache. May repeat after 1hr^Disp: 24 tablet^Rfl: 0 cyanocobalamin (VITAMIN B-12) 1,000 mcg tab^Take 1 tablet by mouth once daily.^Disp: 90 tablet^Rfl:3 omega-3 fatty acids 1,000 mg cap^Take 2 capsules by mouth once daily.^Disp: 60 capsule^Rfl: 12 polyethylene glycol 3350 (MIRALAX) 17 gram/dose powder^Take 17 g by mouth two times a day as neededfor constipation.^Disp: 507 g^Rfl: 1 Miscellaneous Medical Supply^Theraworx topical foam for muscle cramp and spasm. Apply 1 to 2 pumps to legs or hands as needed for cramping as directed per package directions.^Disp: 1 Each^Rfl: 5 rOPINIRole (REQUIP) 1 mg tablet^take 1 tablet by mouth once daily^Disp: 30 tablet^Rfl: 5 omega 4-sca-djd-fish oil 1,000 mg (250 mg-750 mg)/5 mL liqd^Take 1,000 mg by mouth once daily.^Disp: 90 mL^Rfl: 1 Nebulizers^1 Each once daily.^Disp: 1 Each^Rfl: 0 ALPRAZolam (XANAX) 1 mg tablet^Take 1 mg by mouth twice daily.^Disp: ^Rfl: QUEtiapine (SEROQUEL) 100 mg tablet^Take 2 tablets by mouth daily at bedtime.^Disp: 180 tablet^Rfl:1 predniSONE (DELTASONE) 10 mg tablet^Take two tablets for 5 days then one tablet for 5 days then discontinue^Disp: 15 tablet^Rfl: 0 (Patient not taking: Reported on 07/25/2024) nhngdy-egxvqyfl-xkybafx (CREON) 6,000-19,000 -30,000 unit delayed release capsule^Take 2 capsules by mouth with meals and at bedtime for 5 days.^Disp: 40 capsule^Rfl: 0 tgggtf-glovxcpl-jiemcka (CREON) 6,000-19,000 -30,000 unit delayed release capsule^Take 2 capsules by mouth with meals and at bedtime.^Disp: 240 capsule^Rfl: 0 OTEZLA 30 mg tablet^Take 30 mg by mouth once daily.^Disp: ^Rfl: FAMILY HISTORY Problem Relation Age of Onset Stroke Mother Hypertension Mother Diabetes Father Cancer Father melanoma Kidney transplant Father Thyroid Cancer Sister Breast Cancer Sister Thyroid Cancer Sister Breast Cancer Sister Prostate Cancer Brother Cancer Brother 21 testicular Breast Cancer Maternal Aunt Cancer Other A-wqonyd-Lgyimlwnjf Social History Tobacco Use Smoking status: Every Day Current packs/day: 0.00 Average packs/day: 1 pack/day for 30.0 years (30.0 ttl pk-yrs) Types: Cigarettes Start date: 06/02/1987 Last attempt to quit: 06/02/2017 Years since quittin.1 Smokeless tobacco: Never Vaping Use Vaping status: Never Used Substance Use Topics Alcohol use: No Drug use: No Comment: IV DRUG USER BP 143/79 Pulse 77 Resp 16 Wt 51.7 kg (114 lb) SpO2 96% BMI 20.10 kg/m Review of Systems Constitutional: Negative for chills, fever and malaise/fatigue. Musculoskeletal: Positive for falls, joint pain and neck pain. Negative for back pain and myalgias. Neurological: Positive for loss of consciousness and headaches. Negative for dizziness and weakness. Objective Physical Exam Constitutional: General: She is not in acute distress. Appearance: She is not toxic-appearing. HENT: Head: Normocephalic. Comments: Ecchymosis with laceration noted highlighted area. Nose: Nose normal. Eyes: Pupils: Pupils are equal, round, and reactive to light. Cardiovascular: Rate and Rhythm: Normal rate. Pulmonary: Effort: Pulmonary effort is normal. No respiratory distress. Musculoskeletal: Cervical back: Normal range of motion. Skin: General: Skin is warm and dry. Neurological: General: No focal deficit present. Mental Status: She is alert. ASSESSMENT/PLAN: 1. Injury of head, initial encounter - ICD9: 959.01, ICD10: S09.90XA Concerned about orbital bone fracture and subdural hemorrhage due to LOC. Referred to ED. Will be seen at [facility] Bruce Flores APRN.ALMOND ROASTER documented in this encounterSelect [facility] [place]04-[facility]-2025 Telephone encounter Note * Telephone Encounter - Ani Dumont LPN - 07/24/2024 4:28 PM EDT My chart message to pt. [place] [address]-11-2025 Miscellaneous Notes* Telephone Encounter - Ani Dumont LPN - 07/24/2024 4:28 PM EDT My chart message to pt. * Telephone Encounter - Greg Abrams MD - 07/14/2024 8:12 PM EDT Okay to resume meds. Calcium depends on whether she is able to get 1200 to 1500 mg calcium in diet daily. Labs ordered so may do before September appointment The following approved medication requests have been transmitte d electronically. Requested Prescriptions Signed Prescriptions Disp Refills folic acid 1 mg tablet 30 tablet 2 Sig: Take 1 tablet by mouth once daily. Take with breakfast Authorizing Provider: GREG ABRAMS ergocalciferol 50,000 unit capsule (VITAMIN D2, DRISDOL) 12 capsule 1 Sig: Take 1 capsule by mouth one time a week. Authorizing Provider: GREG ABRAMS magnesium oxide (MAG-OX) 400 mg (241.3 mg magnesium) tablet 30 tablet 2 Sig: Take 1 tablet by mouth once daily. Authorizing Provider: GREG ABRAMS MD * Telephone Encounter - Lexi Main LPN - 07/14/2024 4:19 PM EDT The patient has been identified by name and date of : Yes Caregiver verified no other encounters exist for this prescription request: Yes Caregiver confirmed with patient/requestor that no other refills are due, in the near future, with this provider at this time: Yes The last office visit in the department: 05/04/2024 Does the patient have a future office visit with this provider/department: Yes 09/30/2024 Requested Prescriptions Pending Prescriptions Disp Refills folic acid 1 mg tablet 30 tablet 2 Sig: Take 1 tablet by mouth once daily. Take with breakfast ergocalciferol 50,000 unit capsule (VITAMIN D2, DRISDOL) 12 capsule 1 Sig: Take 1 capsule by mouth one time a week. magnesium oxide (MAG-OX) 400 mg (241.3 mg magnesium) tablet 30 tablet 1 Sig: Take 1 tablet by mouth once daily. Patient not sure if she was to continue taking these, rx ran out on some of them some time ago. Asking about Calcium also Lexi Main LPN July 14, 2024 4:24 PM documented in this encounterSelect [facility] [place]04-[facility]-2025 Telephone encounter Note * Telephone Encounter - Aziza Hernandez MA - 07/20/2024 12:08 PM EDT Images from the original note were not included. Most recent Rheumatology visit: 02/04/2024 (with Deloris Juarez) Last Bone Density on file: 12/14/2022 Rheumatology Care Team: None on file Recent Office Visits - This Specialty 02/04/2024 Rheumatoid arthritis involving multiple sites with positive rheumatoid factor (HCC) Rheumatology Deloris Juarez APRN.EDMUND 11/29/2021 Inflammatory arthritis Rheumatology Deloris Juarez APRN.EDMUND 01/12/2019 Rheumatoid arthritis involving multiple sites with positive rheumatoid factor (HCC) Rheumatology Deloris Juarez (Capper Machine Operator) Upcoming Rheumatology Appointments - Next 365 Days No appointments to display CBC: Latest Ref Rng & Units 02/04/2024 03/26/2024 CBC WBC 3.70 - 11.00 k/uL 6.54 6.24 Hemoglobin 11.5 - 15.5 g/dL 15.7 15.3 Hematocrit 36.0 - 46.0 % 45.7 46.8 Platelet Count 150 - 400 k/uL 230 294 Abs Neut (ANC) 1.45 - 7.50 k/uL 4.85 Abs Lymph 1.00 - 4.00 k/uL 1.29 Vitamin D: Latest Ref Rng & Units 11/21/2023 02/04/2024 Vitamin D Vitamin D 25 Hydroxy 31.0 - 80.0 ng/mL 43.0 36.6 LFT: Latest Ref Rng & Units 02/04/2024 03/26/2024 CMP Sodium 136 - 144 mmol/L 142 144 Potassium 3.7 - 5.1 mmol/L 3.6 4.5 Chloride 98 - 107 mmol/L 103 103 CO2 22 - 30 mmol/L 28 28 Glucose 74 - 99 mg/dL 91 140 BUN 7 - 21 mg/dL 6 11 Creatinine 0.58 - 0.96 mg/dL 0.70 0.84 Calcium 8.5 - 10.2 mg/dL 10.7 10.9 AST 13 - 35 U/L 37 33 ALT 7 - 38 U/L 22 24 Alkaline Phosphatase 34 - 123 U/L 80 78 Hepatic Function: Creatinine: Latest Ref Rng & Units 02/04/2024 03/26/2024 Creatinine Creatinine 0.58 - 0.96 mg/dL 0.70 0.84 ESR/CRP: Latest Ref Rng & Units 11/30/2021 02/04/2024 ESR, WSR WSR 0 - 20 mm/hr 9 5 Latest Ref Rng & Units 11/30/2021 02/04/2024 CRP CRP <0.9 mg/dL 2.0 <0.3 Uric Acid: None on file in the last 6 months Open Standing (Multiple Instance) Lab Orders None Open Future (Single Instance) Lab Orders Expected Expires Ordered VITAMIN B12 [SQB12] 09/13/24 01/28/25 07/14/24 Auth. provider: Greg Abrams MD Assoc. diagnoses: Macrocytosis without anemia, Encounter for long-term current use of medication LIPID PANEL, FASTING [SQLIPB] 09/13/24 09/13/24 07/14/24 Auth. provider: Greg Abrams MD Assoc. diagnoses: Hyperlipidemia, unspecified hyperlipidemia type, Encounter for long-term current use of medication FOLATE, SERUM [SQSERFOL] 09/13/24 01/28/25 07/14/24 Auth. provider: Greg Abrams MD Assoc. diagnoses: Macrocytosis without anemia, Encounter for long-term current use of medication COMPREHENSIVE METABOLIC PANEL [SQCMP] 09/13/24 01/28/25 07/14/24 Auth. provider: Greg Abrams MD Assoc. diagnoses: Hyperkalemia, Encounter for long-term current use of medication COMPLETE BLOOD COUNT AND DIFFERENTIAL [SQCBCDIF] 09/13/24 01/28/25 07/14/24 Auth. provider: Greg Abrams MD Assoc. diagnoses: Macrocytosis without anemia, Encounter for long-term current use of medication VITAMIN D 25 HYDROXY [SQVITD] 09/13/24 12/13/24 07/14/24 Auth. provider: Greg Abrams MD Assoc. diagnoses: Vitamin D deficiency, Encounter for long-term current use of medication MAGNESIUM [SQMG1] 09/13/24 12/13/24 07/14/24 Auth. provider: Greg Abrams MD Assoc. diagnoses: Encounter for long-term current use of medication [facility]04-07-[facility] Miscellaneous Notes* Telephone Encounter - Aziza Hernandez MA - 07/20/2024 12:08 PM EDT Images from the original note were not included. Most recent Rheumatology visit: 02/04/2024 (with Deloris Juarez) Last Bone Density on file: 12/14/2022 Rheumatology Care Team: None on file Recent Office Visits - This Specialty 02/04/2024 Rheumatoid arthritis involving multiple sites with positive rheumatoid factor (HCC) Rheumatology Deloris Juarez APRN.ALMOND ROASTER 11/29/2021 Inflammatory arthritis Rheumatology Deloris Juarez APRN.ALMOND ROASTER 01/12/2019 Rheumatoid arthritis involving multiple sites with positive rheumatoid factor (HCC) Rheumatology Deloris Juarez (Capper Machine Operator) Upcoming Rheumatology Appointments - Next 365 Days No appointments to display CBC: Latest Ref Rng & Units 02/04/2024 03/26/2024 CBC WBC 3.70 - 11.00 k/uL 6.54 6.24 Hemoglobin 11.5 - 15.5 g/dL 15.7 15.3 Hematocrit 36.0 - 46.0 % 45.7 46.8 Platelet Count 150 - 400 k/uL 230 294 Abs Neut (ANC) 1.45 - 7.50 k/uL 4.85 Abs Lymph 1.00 - 4.00 k/uL 1.29 Vitamin D: Latest Ref Rng & Units 11/21/2023 02/04/2024 Vitamin D Vitamin D 25 Hydroxy 31.0 - 80.0 ng/mL 43.0 36.6 LFT: Latest Ref Rng & Units 02/04/2024 03/26/2024 CMP Sodium 136 - 144 mmol/L 142 144 Potassium 3.7 - 5.1 mmol/L 3.6 4.5 Chloride 98 - 107 mmol/L 103 103 CO2 22 - 30 mmol/L 28 28 Glucose 74 - 99 mg/dL 91 140 BUN 7 - 21 mg/dL 6 11 Creatinine 0.58 - 0.96 mg/dL 0.70 0.84 Calcium 8.5 - 10.2 mg/dL 10.7 10.9 AST 13 - 35 U/L 37 33 ALT 7 - 38 U/L 22 24 Alkaline Phosphatase 34 - 123 U/L 80 78 Hepatic Function: Creatinine: Latest Ref Rng & Units 02/04/2024 03/26/2024 Creatinine Creatinine 0.58 - 0.96 mg/dL 0.70 0.84 ESR/CRP: Latest Ref Rng & Units 11/30/2021 02/04/2024 ESR, WSR WSR 0 - 20 mm/hr 9 5 Latest Ref Rng & Units 11/30/2021 02/04/2024 CRP CRP <0.9 mg/dL 2.0 <0.3 Uric Acid: None on file in the last 6 months Open Standing (Multiple Instance) Lab Orders None Open Future (Single Instance) Lab Orders Expected Expires Ordered VITAMIN B12 [SQB12] 09/13/24 01/28/25 07/14/24 Auth. provider: Greg Abrams MD Assoc. diagnoses: Macrocytosis without anemia, Encounter for long-term current use of medication LIPID PANEL, FASTING [SQLIPB] 09/13/24 09/13/24 07/14/24 Auth. provider: Greg Abrams MD Assoc. diagnoses: Hyperlipidemia, unspecified hyperlipidemia type, Encounter for long-term current use of medication FOLATE, SERUM [SQSERFOL] 09/13/24 01/28/25 07/14/24 Auth. provider: Greg Abrams MD Assoc. diagnoses: Macrocytosis without anemia, Encounter for long-term current use of medication COMPREHENSIVE METABOLIC PANEL [SQCMP] 09/13/24 01/28/25 07/14/24 Auth. provider: Greg Abrams MD Assoc. diagnoses: Hyperkalemia, Encounter for long-term current use of medication COMPLETE BLOOD COUNT AND DIFFERENTIAL [SQCBCDIF] 09/13/24 01/28/25 07/14/24 Auth. provider: Greg Abrams MD Assoc. diagnoses: Macrocytosis without anemia, Encounter for long-term current use of medication VITAMIN D 25 HYDROXY [SQVITD] 09/13/24 12/13/24 07/14/24 Auth. provider: Greg Abrams MD Assoc. diagnoses: Vitamin D deficiency, Encounter for long-term current use of medication MAGNESIUM [SQMG1] 09/13/24 12/13/24 07/14/24 Auth. provider: Greg Abrams MD Assoc. diagnoses: Encounter for long-term current use of medication [facility] [place] Telephone encounter Note * Telephone Encounter - Greg Abrams MD - 07/14/2024 8:12 PM EDT Okay to resume meds. Calcium depends on whether she is able to get 1200 to 1500 mg calcium in diet daily. Labs ordered so may do before September appointment The following approved medication requests have been transmitte d electronically. Requested Prescriptions Signed Prescriptions Disp Refills folic acid 1 mg tablet 30 tablet 2 Sig: Take 1 tablet by mouth once daily. Take with breakfast Authorizing Provider: GREG ABRAMS ergocalciferol 50,000 unit capsule (VITAMIN D2, DRISDOL) 12 capsule 1 Sig: Take 1 capsule by mouth one time a week. Authorizing Provider: GREG ABRAMS magnesium oxide (MAG-OX) 400 mg (241.3 mg magnesium) tablet 30 tablet 2 Sig: Take 1 tablet by mouth once daily. Authorizing Provider: GREG ABRAMS MD [facility]04-01-2025 Telephone encounter Note* Telephone Encounter - Lexi Main LPN - 07/14/2024 4:19 PM EDT The patient has been identified by name and date of : Yes Caregiver verified no other encounters exist for this prescription request: Yes Caregiver confirmed with patient/requestor that no other refills are due, in the near future, with this provider at this time: Yes The last office visit in the department: 05/04/2024 Does the patient have a future office visit with this provider/department: Yes 09/30/2024 Requested Prescriptions Pending Prescriptions Disp Refills folic acid 1 mg tablet 30 tablet 2 Sig: Take 1 tablet by mouth once daily. Take with breakfast ergocalciferol 50,000 unit capsule (VITAMIN D2, DRISDOL) 12 capsule 1 Sig: Take 1 capsule by mouth one time a week. magnesium oxide (MAG-OX) 400 mg (241.3 mg magnesium) tablet 30 tablet 1 Sig: Take 1 tablet by mouth once daily. Patient not sure if she was to continue taking these, rx ran out on some of them some time ago. Asking about Calcium also Lexi Main LPN July 14, 2024 4:24 PM [facility]03-16-[facility]25 Telephone encounter Note* Telephone Encounter - Rodney Lee RN - 06/28/2024 9:24 AM EDT Patient calling with request for asked was there an order for her to get a stool sample for C-diff.She stated she spoke to Dr. Abrams's nurse and was told that she may need to be tested for C-diffif she continue to have loose stool. Patient denies any new or worsening symptoms of which a provider is not aware: Yes. Informed pt that there is not an order in the system and informed her that shewill need to call the office tomorrow to request the lab to be order then go to the lab to get the specimen cup. She stated understanding. [facility]03-[facility] Miscellaneous Notes* Telephone Encounter - Rodney Lee RN - 06/28/2024 9:24 AM EDT Patient calling with request for asked was there an order for her to get a stool sample for C-diff.She stated she spoke to Dr. Abrams's nurse and was told that she may need to be tested for C-diffif she continue to have loose stool. Patient denies any new or worsening symptoms of which a provider is not aware: Yes. Informed pt that there is not an order in the system and informed her that shewill need to call the office tomorrow to request the lab to be order then go to the lab to get the specimen cup. She stated understanding. documented in this encounter[facility] [place] History of Present illness Narrative* Bernie Vera, OD - 06/25/2024 1:13 PM EDT 1. PCO (posterior capsular opacification), left (Primary) Good improvement in vision today compared to previous visit Suspect PCO not central involving- will monitor to monitor 2. Blurry vision 3. Myopia, bilateral 4. Regular astigmatism of left eye Finalized spec rx- printed for patient 5. Vitreous syneresis of both eyes Stable- monitor Follow-up in 1 year for complete eye exam Bernie Vera, ADRI June 25, 2024 1:14 PM documented in this encounter[facility] [place] Telephone encounter Note * Telephone Encounter - Tracy Chiu RN - 06/23/2024 11:00 AM EDT Protocol recommends go to ER. Pt states she will go. Reason for Disposition [1] SEVERE abdominal pain AND [2] age > 60 years Answer Assessment - Initial Assessment Questions 1. DIARRHEA SEVERITY: Severe diarrhea occurring since 06/12. Please see triage note 06/11. Pt states she went to the ER and they did a CT scan and told her she had a bowel infection and prescribed her Flagyl and Cipro for 10 days. Pt completed all the antibiotics. Pt went in to ER on the as she hadn't had a BM and was having left sided abdominal pain and had taken multiple laxatives. She has had on average at least 15 liquid brown diarrhea stools per day. States occasionally the stool will get soft and mushy. Pt states she also notes bright red blood in the stool as well. - NO DIARRHEA (SCALE 0) - MILD (SCALE 1-3): Few loose or mushy stools; increase of 1 to 3 stools over normal daily number of stools; mild increase in ostomy output. - MODERATE (SCALE 4-7): Increase of 4-6 stools daily over normal; moderate increase in ostomy output. - SEVERE (SCALE 8-10; OR WORST POSSIBLE): Increase of 7 or more stools daily over normal; moderate increase in ostomy output; incontinence. 2. ONSET: see above 3. STOOL DESCRIPTION: brown water with bright red blood at the end. 4. VOMITING: nauseated and no appetite. States hasn't been eating. 5. ABDOMEN PAIN: constant left sided abdominal pain-sore, sharp 6. ABDOMEN PAIN SEVERITY: 6-7/10 but hs gotten to be as bad as 10/10. - MILD (1-3): Doesn't interfere with normal activities, abdomen soft and not tender to touch. - MODERATE (4-7): Interferes with normal activities or awakens from sleep, abdomen tender to touch. - SEVERE (8-10): Excruciating pain, doubled over, unable to do any normal activities. 7. ORAL INTAKE:pt states she is drinking a lot of water and tea 8. HYDRATION: dry mouth, urinating less frequently-states sometimes it doesn't want to come out andwhen it does, it is just a small amount and real yellow 9. EXPOSURE: n/a 10. ANTIBIOTIC USE: yes started antibiotics on 06/11 11. OTHER SYMPTOMS: abd pain and blood in stool 12. : n/a Protocols used: [id number] [facility]03-11-2025 Miscellaneous Notes* Telephone Encounter - Tracy Chiu RN - 06/23/2024 11:00 AM EDT Protocol recommends go to ER. Pt states she will go. Reason for Disposition [1] SEVERE abdominal pain AND [2] age > 60 years Answer Assessment - Initial Assessment Questions 1. DIARRHEA SEVERITY: Severe diarrhea occurring since 06/12. Please see triage note 06/11. Pt states she went to the ER and they did a CT scan and told her she had a bowel infection and prescribed her Flagyl and Cipro for 10 days. Pt completed all the antibiotics. Pt went in to ER on the as she hadn't had a BM and was having left sided abdominal pain and had taken multiple laxatives. She has had on average at least 15 liquid brown diarrhea stools per day. States occasionally the stool will get soft and mushy. Pt states she also notes bright red blood in the stool as well. - NO DIARRHEA (SCALE 0) - MILD (SCALE 1-3): Few loose or mushy stools; increase of 1 to 3 stools over normal daily number of stools; mild increase in ostomy output. - MODERATE (SCALE 4-7): Increase of 4-6 stools daily over normal; moderate increase in ostomy output. - SEVERE (SCALE 8-10; OR WORST POSSIBLE): Increase of 7 or more stools daily over normal; moderate increase in ostomy output; incontinence. 2. ONSET: see above 3. STOOL DESCRIPTION: brown water with bright red blood at the end. 4. VOMITING: nauseated and no appetite. States hasn't been eating. 5. ABDOMEN PAIN: constant left sided abdominal pain-sore, sharp 6. ABDOMEN PAIN SEVERITY: 6-7/10 but hs gotten to be as bad as 10/10. - MILD (1-3): Doesn't interfere with normal activities, abdomen soft and not tender to touch. - MODERATE (4-7): Interferes with normal activities or awakens from sleep, abdomen tender to touch. - SEVERE (8-10): Excruciating pain, doubled over, unable to do any normal activities. 7. ORAL INTAKE:pt states she is drinking a lot of water and tea 8. HYDRATION: dry mouth, urinating less frequently-states sometimes it doesn't want to come out andwhen it does, it is just a small amount and real yellow 9. EXPOSURE: n/a 10. ANTIBIOTIC USE: yes started antibiotics on 06/11 11. OTHER SYMPTOMS: abd pain and blood in stool 12. : n/a Protocols used: [id number] documented in this encounter[facility] [place] Telephone encounter Note * Telephone Encounter - Quyen Heard LPN - 06/23/2024 10:51 AM EDT Pt called with sx of L sided abdominal pain and watery diarrhea up to 10 times a day. Pt was in [facility] for colon infection. RN requested to triage pt. Quyen Heard LPN [facility]03-11-2025 Miscellaneous Notes* Telephone Encounter - Quyen Heard LPN - 06/23/2024 10:51 AM EDT Pt called with sx of L sided abdominal pain and watery diarrhea up to 10 times a day. Pt was in [facility] for colon infection. RN requested to triage pt. Quyen Heard LPN documented in this encounterSelect [facility] [place]25 Telephone encounter Note * Telephone Encounter - Avani Rayo RN - 06/11/2024 11:20 AM EST Triage Protocol Recommended: ER. Pt agreeable. Pt states she will contact her sister to take her, or will call 911. Reason for Disposition [1] Vomiting AND [2] contains bile (green color) Answer Assessment - Initial Assessment Questions Patient calling with concern for no bowel movement in 5 days and episodes of intermittent severe left side abdominal pain. States it feels like something is twisted. States was crying last night. Reports she had a sudden episode of vomiting last evening. Reports bloating and unable to stand up without abd pain. Having small amounts of brown liquid coming from her rectum when trying to have a bowel movement. She states she took multiple dulcolax tabs and bottle of Mag Citrate with no result. 1. STOOL PATTERN OR FREQUENCY: variable 1-3 days 2. STRAINING: at times 3. ONSET: 5 days ago 5. RECTAL PAIN: no 6. BM COMPOSITION: brown liquid 7. BLOOD ON STOOLS: denies 8. CHRONIC CONSTIPATION: has had constipation before but not recently 8. CHANGES IN DIET OR HYDRATION: denies, states she is drinking lots of water 9. MEDICINES: Denies taking new medicines 10. LAXATIVES: reports she has tried stool softeners, dulcolax and Mg Citrate 11. ACTIVITY: usually somewhat active around her home 12. CAUSE: Pt not certain 13. MEDICAL HISTORY: (yes-see history) 14. OTHER SYMPTOMS: as above Protocols used: [id number] [facility]02-27-[facility]25 Miscellaneous Notes* Telephone Encounter - Avani Rayo RN - 06/11/2024 11:20 AM EST Triage Protocol Recommended: ER. Pt agreeable. Pt states she will contact her sister to take her, or will call 911. Reason for Disposition [1] Vomiting AND [2] contains bile (green color) Answer Assessment - Initial Assessment Questions Patient calling with concern for no bowel movement in 5 days and episodes of intermittent severe left side abdominal pain. States it feels like something is twisted. States was crying last night. Reports she had a sudden episode of vomiting last evening. Reports bloating and unable to stand up without abd pain. Having small amounts of brown liquid coming from her rectum when trying to have a bowel movement. She states she took multiple dulcolax tabs and bottle of Mag Citrate with no result. 1. STOOL PATTERN OR FREQUENCY: variable 1-3 days 2. STRAINING: at times 3. ONSET: 5 days ago 5. RECTAL PAIN: no 6. BM COMPOSITION: brown liquid 7. BLOOD ON STOOLS: denies 8. CHRONIC CONSTIPATION: has had constipation before but not recently 8. CHANGES IN DIET OR HYDRATION: denies, states she is drinking lots of water 9. MEDICINES: Denies taking new medicines 10. LAXATIVES: reports she has tried stool softeners, dulcolax and Mg Citrate 11. ACTIVITY: usually somewhat active around her home 12. CAUSE: Pt not certain 13. MEDICAL HISTORY: (yes-see history) 14. OTHER SYMPTOMS: as above Protocols used: [id number] documented in this encounterSelect [facility] [place]-2025 Telephone encounter Note * Telephone Encounter - Cherie Retana MA - 05/26/2024 9:34 AM EST АНДРЕЙ 02/04/2024. No future appointment scheduled. [facility] Miscellaneous Notes* Telephone Encounter - Cherie Retana MA - 05/26/2024 9:34 AM EST АНДРЕЙ 02/04/2024. No future appointment scheduled. documented in this encounterSelect [facility] [place]01-30-2025 Telephone encounter Note * Telephone Encounter - Ani Dumont LPN - 05/14/2024 11:21 AM EST Pt notified via jaylyn parkinson. [facility]01-30-[facility]25 Miscellaneous Notes* Telephone Encounter - Ani Dumont LPN - 05/14/2024 11:21 AM EST Pt notified via jaylyn parkinson. * Telephone Encounter - Greg Abrams MD - 05/08/2024 1:19 PM EST Even though some things grew, mostly normal respiratory esthela and other things that grew had insignificant colony counts. Noted rare gram positive cocci on the smear result and no polymorphonuclear leukocytes, so does notlook consistent with a source of infection. See if has any other questions about the results of 04/21/24 culture. Other cultures also with insignificant colony counts * Telephone Encounter - Malika Mott LPN - 05/08/2024 10:04 AM EST Pt called for results on the sputum. She was given results from 04-28-24 but questioning an abnormalresult. Please review and advise pt. Malika Mott LPN documented in this encounterSelect [facility] [place]01-[facility]-2025 Telephone encounter Note * Telephone Encounter - Greg Abrams MD - 05/08/2024 1:19 PM EST Even though some things grew, mostly normal respiratory esthela and other things that grew had insignificant colony counts. Noted rare gram positive cocci on the smear result and no polymorphonuclear leukocytes, so does notlook consistent with a source of infection. See if has any other questions about the results of 04/21/24 culture. Other cultures also with insignificant colony counts [facility] [place]01-24-[facility]25 Telephone encounter Note* Telephone Encounter - Malika Mott LPN - 05/08/2024 10:04 AM EST Pt called for results on the sputum. She was given results from 04-28-24 but questioning an abnormalresult. Please review and advise pt. Malika Mott LPN [facility]01-21-2025 Telephone encounter Note* Telephone Encounter - Nicky Navarro LPN - 05/05/2024 12:24 PM EST Many normal esthela, few Chryseobacterium, insignificant colony count. No further workup Message left that she will be able to review results and to call if any questions. [facility]01-[facility] Miscellaneous Notes* Telephone Encounter - Nicky Navarro LPN - 05/05/2024 12:24 PM EST Many normal esthela, few Chryseobacterium, insignificant colony count. No further workup Message left that she will be able to review results and to call if any questions. * Telephone Encounter - Linda Hartman RN - 04/24/2024 11:56 AM EST Called and left a voicemail for the Patient to call back and ask for a nurse to receive the providers message. Linda Hartman RN * Telephone Encounter - Luana Tripathi APRN.CNS - 04/24/2024 9:57 AM EST No need for any changes at this time, results are still preliminary, should be available next week. * Telephone Encounter - Avani Rayo RN - 04/24/2024 9:48 AM EST Patient requesting provider SERA Lockhart to advise on her recent culture results, when final reports have been received. Patient wishes to verify that the medications she has been ordered will be effective for her. Avani Rayo RN documented in this encounterSelect [facility] [place]-20-2025 Instructions* Patient Instructions* Luana Tripathi APRN.CNS - 05/04/2024 2:44 PM EST Use your maintenance inhaler, Symbicort (budesonide/formoterol) 2 puffs twice a day every day Use your albuterol inhaler as needed for cough wheeze and shortness of breath in addition to your Symbicort inhaler. documented in this encounterSelect [facility] [place] History of Present illness Narrative* Luana Tripathi APRN.CNS - 05/04/2024 2:00 PM EST odayoSUBJECTIVE: Depression Screening Never done Shingrix Vaccine(1 of 2) Never done Alpha-1 Antitrypsin Deficiency Screening Never done RSV Vaccine(1 - Risk 60-74 years 1-dose series) Never done Cervical Cancer Screening due on 01/15/2019 Lung Cancer Screening due on 12/27/2020 Mammogram Screening due on 09/05/2023 DTaP,Tdap,Td Vaccine(3 - Td or Tdap) due on 09/15/2023 Influenza Vaccine(1) due on 12/15/2023 Advance Directive Discussion Never done HPI David Berg is a 68 year old female. PMH significant for ACTIVE PROBLEM LIST Anxiety State Generalized Convulsive Epilepsy (Hcc) Other Emphysema (Hcc) Epigastric Pain Low Back Pain Ddd (Degenerative Disc Disease), Cervical Nerve Sheath Tumor Rls (Restless Legs Syndrome) Migraine Headache Falls Palpitations Positive Ppd Insomnia Cervicalgia Left-Sided Low Back Pain With Left-Sided Sciatica Hnp (Herniated Nucleus Pulposus), Lumbar Rheumatoid Arthritis Involving Multiple Sites With Positive Rheumatoid Factor (Hcc) Dry Eye Syndrome Hyperlipidemia Pain in Toe of Left Foot Prediabetes Constipation, Unspecified Left Sided Colitis Without Complications (Hcc) Syncope Orthostatic Hypotension Steatorrhea, Pancreatic Pancreas Divisum Severe Protein-Calorie Malnutrition (Hcc) Abscess Abscess of Abdominal Cavity (Hcc) Other Chest Pain Nausea & Vomiting Bilateral Carotid Artery Stenosis Presents today for recheck of pneumonia / COPD exacerbation. See previous notes. Today notes she isfeeling improved. She does continue to have cough and shortness of breath. Sputum production is decreased. Wheezing is decreased. She notes that she takes deep breath she will cough a lot. Pulmonary function test was completed. Has not scheduled an appointment with warehouse receiving clerk. Reports not consistently using Symbicort as she feels she will become dependent on it. Has been using albuterol as needed but tries to avoid it. Currently holding her dose of abatacept for RA with her acute respiratory infection. Review of Systems Constitutional: Negative. Respiratory: Positive for cough and shortness of breath. Musculoskeletal: Positive for arthralgias. Objective BP 117/76 Pulse 80 Resp 16 Wt 52 kg (114 lb 10.2 oz) BMI 20.21 kg/m Physical Exam Vitals and nursing note reviewed. Constitutional: Appearance: Normal appearance. HENT: Head: Normocephalic and atraumatic. Eyes: Conjunctiva/sclera: Conjunctivae normal. Cardiovascular: Rate and Rhythm: Normal rate. Pulmonary: Effort: Pulmonary effort is normal. No respiratory distress. Breath sounds: Normal breath sounds. Decreased air movement present. Comments: diffuse wheezes, decreased breath sounds but moving air adequately. Musculoskeletal: Right hand: Deformity present. No tenderness. Decreased range of motion. Left hand: Deformity and tenderness present. Decreased range of motion. Cervical back: Tenderness present. Decreased range of motion. Thoracic back: Tenderness present. Decreased range of motion. Lumbar back: Tenderness present. Decreased range of motion. Right lower leg: Tenderness present. Left lower leg: Tenderness present. Right foot: Decreased range of motion. Tenderness present. Left foot: Decreased range of motion. Tenderness present. Skin: General: Skin is warm and dry. Neurological: General: No focal deficit present. Mental Status: She is alert and oriented to person, place, and time. ALLERGIES Allergen Reactions Acetaminophen Other: See Comments pt told not to take due to liver damage Bupropion Other: See Comments unable to urinate Bupropion Hcl Unknown Codeine Rash, Itching Darvon [Propoxyphen* Itching Daypro [Oxaprozin] Rash Effexor [Venlafaxin* Intolerance decreased libido Flexeril [Cyclobenz* GI Upset, Vomiting Gabapentin Mental Status Change hangover Ibuprofen Other: See Comments pt was told not to take due to kindey damage Stebbins [Hydrocodone-* GI Upset, Itching nausea, itching Oxybutynin Other: See Comments Urinary retention Pentazocine Itching [place] Trees [Trees] rash Tramadol Intolerance Medications varenicline (CHANTIX) 1 mg tablet^Take 1 tablet by mouth two times a day with meals. Start this dose day 8, continue at least 11 weeks, my refill for up to one year^Disp: 90 tablet^Rfl: 1 varenicline (CHANTIX) 0.5 mg tablet^Days 1 to 3: Take 0.5 mg once daily. Days 4 to 7: 0.5 mg twice daily. Then take 1 mg twice daily for at least 11 weeks. Choose a fixed quit smoking date or a gradual discontinuation of smoking with a stop date within the first twelve weeks. 3^Disp: 11 tablet^Rfl:0 predniSONE (DELTASONE) 10 mg tablet^Take two tablets for 5 days then one tablet for 5 days then discontinue^Disp: 15 tablet^Rfl: 0 abatacept (ORENCIA) 125 mg/mL injection^INJECT THE CONTENTS OF 1 SYRINGE (125 MG) UNDER THE SKIN ONCE EACH WEEK^Disp: 4 mL^Rfl: 0 Blood Pressure Monitor (BLOOD PRESSURE KIT)^1 Each once daily as needed. Dx: recurrent syncope R55^Disp: 1 Kit^Rfl: 0 FINGER PULSE OXIMETER^1 Each once daily.^Disp: 1 Each^Rfl: 0 benzonatate (TESSALON PERLE) 100 mg capsule^Take 1-2 capsules by mouth three times a day as needed.^Disp: 60 capsule^Rfl: 1 Miscellaneous Medical Supply^Hospital Bed--Extra long. Note: prior hospital bed broke due to long lower extremities pushing on foot of the bed^Disp: 1 Each^Rfl: 0 budesonide-formoterol (SYMBICORT) 80-4.5 mcg/actuation inhaler^Inhale 2 Puffs as instructed two times a day.^Disp: 1 Each^Rfl: 11 albuterol HFA (VENTOLIN HFA) 90 mcg/actuation inhaler^Inhale 2 Puffs as instructed every 4 hours asneeded for wheezing/shortness of breath.^Disp: 1 Each^Rfl: 1 rizatriptan (MAXALT) 10 mg tablet^Take 1 tablet by mouth at onset of headache. May repeat after 1hr^Disp: 24 tablet^Rfl: 0 cyanocobalamin (VITAMIN B-12) 1,000 mcg tab^Take 1 tablet by mouth once daily.^Disp: 90 tablet^Rfl:3 ergocalciferol 50,000 unit capsule (VITAMIN D2, DRISDOL)^Take 1 capsule by mouth one time a week.^Disp: 12 capsule^Rfl: 1 magnesium oxide (MAG-OX) 400 mg (241.3 mg magnesium) tablet^Take 1 tablet by mouth once daily.^Disp: 30 tablet^Rfl: 1 omega-3 fatty acids 1,000 mg cap^Take 2 capsules by mouth once daily.^Disp: 60 capsule^Rfl: 12 polyethylene glycol 3350 (MIRALAX) 17 gram/dose powder^Take 17 g by mouth two times a day as neededfor constipation.^Disp: 507 g^Rfl: 1 folic acid 1 mg tablet^Take 1 tablet by mouth once daily. Take with breakfast^Disp: 30 tablet^Rfl: 2 Miscellaneous Medical Supply^Theraworx topical foam for muscle cramp and spasm. Apply 1 to 2 pumps to legs or hands as needed for cramping as directed per package directions.^Disp: 1 Each^Rfl: 5 OTEZLA 30 mg tablet^Take 30 mg by mouth once daily.^Disp: ^Rfl: rOPINIRole (REQUIP) 1 mg tablet^take 1 tablet by mouth once daily^Disp: 30 tablet^Rfl: 5 omega 5-fsr-oic-fish oil 1,000 mg (250 mg-750 mg)/5 mL liqd^Take 1,000 mg by mouth once daily.^Disp: 90 mL^Rfl: 1 Nebulizers^1 Each once daily.^Disp: 1 Each^Rfl: 0 ALPRAZolam (XANAX) 1 mg tablet^Take 1 mg by mouth twice daily.^Disp: ^Rfl: QUEtiapine (SEROQUEL) 100 mg tablet^Take 2 tablets by mouth daily at bedtime.^Disp: 180 tablet^Rfl:1 hfqmwk-ehxcerqc-byvkrrv (CREON) 6,000-19,000 -30,000 unit delayed release capsule^Take 2 capsules by mouth with meals and at bedtime for 5 days.^Disp: 40 capsule^Rfl: 0 dyffxt-cpfgzpxv-iiwqjmd (CREON) 6,000-19,000 -30,000 unit delayed release capsule^Take 2 capsules by mouth with meals and at bedtime.^Disp: 240 capsule^Rfl: 0 PAST MEDICAL HISTORY Diagnosis Date Acute hepatitis C without mention of hepatic coma(070.51) negative RNA in 2016 Acute left ankle pain 12/18/2017 Acute pneumonia 01/15/2022 Anxiety state 05/29/2005 Dr. 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 Not on medications, not seeing neurology. 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 Choi-ID Prediabetes Psoriasis Rheumatoid arthritis involving multiple sites with positive rheumatoid factor (HCC) 12/13/[address] Bowden RLS (restless legs syndrome) 08/29/2011 Vasovagal syncope Vitamin D deficiency Social History Tobacco Use Smoking status: Every Day Current packs/day: 0.00 Average packs/day: 1 pack/day for 30.0 years (30.0 ttl pk-yrs) Types: Cigarettes Start date: 06/02/1987 Last attempt to quit: 06/02/2017 Years since quittin.9 Smokeless tobacco: Never Vaping Use Vaping status: Never Used Substance Use Topics Alcohol use: No Drug use: No Comment: IV DRUG USER CXR 03/26/2024 IMPRESSION: No acute radiographic abnormality. RESPIRATORY CULTURE AND STAIN Order: [id number] Status: Final result Visible to patient: Yes (not seen) Dx: COPD with exacerbation (HCC); Pneumon... Specimen Information: Sputum 0 Result Notes important suggestion Newer results are available. Click to view them now. Culture Few Citrobacter freundii complex Abnormal Few normal respiratory esthela Abnormal Rare Escherichia coli Abnormal Rare Chryseobacterium gleum Abnormal Insignificant colony counts. No further workup. No Staphylococcus aureus isolated. No Pseudomonas aeruginosa isolated. This test was developed and its performance characteristics determined by the [facility]'s [facility] Pathology [facility] Laboratory [facility] [place] ([facility]). It has not been cleared or approved by the FDA. [facility] is regulated under CLIA as qualified to perform high-complexity testing. This test is used for clinical purposes. It should not be regarded as investigational or for research. Smear Result No organisms seen No Polymorphonuclear Leukocytes ASSESSMENT/PLAN: 1. COPD with exacerbation (HCC) - ICD9: 491.21, ICD10: J44.1 (primary diagnosis) 2. Pneumonia of both lower lobes due to infectious organism - ICD9: 486, ICD10: J18.9 She is nearly back to baseline. Reports not consistently using Symbicort, endorsed doing this. Albuterol as needed for cough wheeze or shortness of breath. PFTs were completed and showed moderate obstruction. Consider making appointment with warehouse receiving clerk.. 3. Tobacco use - ICD9: 305.1, ICD10: Z72.0 - Cessation encouraged. Medical Decision Making: Problems: Low: Acute, uncomplicated illness or injury Risk: Moderate: Drug management Medical Decision Making Level: 3 - Low documented in [facility]2025 NoteProm[facility]-14-2025 NoteProm[facility]01-14-2025 History of Present illness Narrative* Chelsey Hemphill RPFT - 04/28/2024 12:54 PM EST PULM FUNCTION: Provider: Luana Tripathi APRN.PANEL ASSEMBLER Assisting Tech: Chelsey Hemphill RPFT Spirometry w/BD: 1 documented in this encounterSelect [facility]01-10-2025 Telephone encounter Note * Telephone Encounter - Linda Hartman RN - 04/24/2024 11:56 AM EST Called and left a voicemail for the Patient to call back and ask for a nurse to receive the providers message. Linda Hartman, RN [facility]01-10-2025 Telephone encounter Note* Telephone Encounter - Luana Tripathi APRN.CNS - 04/24/2024 9:57 AM EST No need for any changes at this time, results are still preliminary, should be available next week. [facility]01-10-2025 Telephone encounter Note* Telephone Encounter - Avani Rayo RN - 04/24/2024 9:48 AM EST Patient requesting provider SERA Lockhart to advise on her recent culture results, when final reports have been received. Patient wishes to verify that the medications she has been ordered will be effective for her. Avani Rayo RN [facility]01-09-2025 Evaluation note* Diagnosis Onset Date Resolution Status Admit Date Neck pain with history of cervical spinal surgery acute April 23, 2024 2:28pm Degenerative disc disease, cervical noneactive April 23 2:28pm [facility] Work Phone: 1(156) 211-207201-09-2025 Telephone encounter Note* Telephone Encounter - Luana Tripathi APRN.CNS - 04/23/2024 4:00 PM EST ok [facility]01-09-2025 Miscellaneous Notes* Telephone Encounter - Luana Tripathi APRN.CNS - 04/23/2024 4:00 PM EST ok * Telephone Encounter - Malika Mott LPN - 04/23/2024 9:48 AM EST [facility] Malika Mott LPN * Telephone Encounter - Shira Garcia LPN - 04/23/2024 9:40 AM EST No answer. Left message for patient to call office and ask to speak to a nurse regarding nicotine inhaler * Telephone Encounter - Luana Tripathi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 EQUIPMENT REPAIRER: No RADIOLOGY DEPARTMENT: General X-ray: Exam(s) Completed: Chest X-Ray PERIPHERAL IV DATA: Not applicable SIGNED BY: RT Le(R) March 26, 2024 3:15 PM documented in this encounterSelect Medical [facility]ty [facility] [place]12-12-2024 [facility]12-12-[facility]24 Telephone encounter Note* Telephone Encounter - Vanessa Tadeo RN - 03/26/2024 2:37 PM EST [facility] patient request to release medical recorders fromDeloris Juarez CNP to their office. Most recent lab results and office note from Deloris Juarez CNPfaxed to [facility] at [phone]. Vanessa Tadeo RN [facility]12-12-2024 Miscellaneous Notes* Telephone Encounter - Vanessa Tadeo RN - 03/26/2024 2:37 PM EST Received fax from [facility] with patient request to release medical recorders fromDeloris Juarez CNP to their office. Most recent lab results and office note from Deloris Juarez CNPfaxed to [facility] at [phone]. Vanessa Tadeo RN documented in this encounterSelect Medical [facility]ty [facility] [place]12-12-2024 [facility]Prom[facility]12-12-2024 History of Present illness Narrative* Luana Tripathi, TANYA.PANEL ASSEMBLER - 03/26/2024 2:28 PM EST SUBJECTIVE: Depression Screening Never done Shingrix Vaccine(1 of 2) Never done Alpha-1 Antitrypsin Deficiency Screening Never done RSV Vaccine(1 - Risk 60-74 years 1-dose series) Never done Cervical Cancer Screening due on 01/15/2019 Lung Cancer Screening due on 12/27/2020 Advance Directive Discussion Never done BP Controlled (<130/80) due on 07/07/2023 Mammogram Screening due on 09/05/2023 DTaP,Tdap,Td Vaccine(3 - Td or Tdap) due on 09/15/2023 Influenza Vaccine(1) due on 12/15/2023 HPI David Berg is a 68 year old female. PMH significant for ACTIVE PROBLEM LIST Anxiety State Generalized Convulsive Epilepsy (Hcc) Other Emphysema (Hcc) Epigastric Pain Low Back Pain Ddd (Degenerative Disc Disease), Cervical Nerve Sheath Tumor Rls (Restless Legs Syndrome) Migraine Headache Falls Palpitations Positive Ppd Insomnia Cervicalgia Left-Sided Low Back Pain With Left-Sided Sciatica Hnp (Herniated Nucleus Pulposus), Lumbar Rheumatoid Arthritis Involving Multiple Sites With Positive Rheumatoid Factor (Hcc) Dry Eye Syndrome Hyperlipidemia Pain in Toe of Left Foot Prediabetes Constipation, Unspecified Left Sided Colitis Without Complications (Hcc) Syncope Orthostatic Hypotension Steatorrhea, Pancreatic Pancreas Divisum Severe Protein-Calorie Malnutrition (Hcc) Abscess Abscess of Abdominal Cavity (Hcc) Other Chest Pain Nausea & Vomiting Bilateral Carotid Artery Stenosis Presents today regarding ER follow up. She was seen at [facility] March 23 for shortness of breath. Chest x-ray had findings consistent with bibasilar atelectasis / pneumonia. She was advised to be admitted to the hospital but declined. She was prescribed Zithromax and prednisone 60 mg x 4 days anddischarged to home with caution to return to ER for any concerning symptoms. Today reports she continues to feel poorly with cough wheeze shortness of breath increased sputum production. Reports she had to leave the hospital to go feed her dogs. 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 Review of Systems Constitutional: Positive for fatigue. Respiratory: Positive for cough, shortness of breath and wheezing. Objective BP 144/84 Pulse 76 Resp 16 Wt 54.6 kg (120 lb 5.9 oz) SpO2 97% BMI 21.06 kg/m Physical Exam Vitals and nursing note reviewed. Constitutional: Appearance: Normal appearance. HENT: Head: Normocephalic and atraumatic. Eyes: Conjunctiva/sclera: Conjunctivae normal. Cardiovascular: Rate and Rhythm: Normal rate. Pulmonary: Effort: Pulmonary effort is normal. Breath sounds: Decreased air movement present. Wheezing present. Comments: diffuse wheezes, decreed breath sounds but moving air adequately. Musculoskeletal: Right hand: Deformity present. No tenderness. Decreased range of motion. Left hand: Deformity and tenderness present. Decreased range of motion. Cervical back: Decreased range of motion. Thoracic back: Tenderness present. Decreased range of motion. Lumbar back: Tenderness present. Decreased range of motion. Right foot: Decreased range of motion. Tenderness present. Left foot: Decreased range of motion. Tenderness present. Skin: General: Skin is warm and dry. Neurological: General: No focal deficit present. Mental Status: She is alert and oriented to person, place, and time. ALLERGIES Allergen Reactions Acetaminophen Other: See Comments pt told not to take due to liver damage Bupropion Hcl Unknown Codeine Rash, Itching Darvon [Propoxyphen* Itching Daypro [Oxaprozin] Rash Effexor [Venlafaxin* Intolerance decreased libido Flexeril [Cyclobenz* GI Upset, Vomiting Gabapentin Mental Status Change hangover Ibuprofen Other: See Comments pt was told not to take due to kindey damage Stebbins [Hydrocodone-* GI Upset, Itching nausea, itching Oxybutynin Other: See Comments Urinary retention Pentazocine Itching Iberia Trees [Trees] rash Tramadol Intolerance azithromycin (ZITHROMAX) 250 mg tablet^once daily.^Disp: ^Rfl: predniSONE (DELTASONE) 20 mg tablet^once daily.^Disp: ^Rfl: qcbslu-mqokvzai-irnlljj (CREON) 6,000-19,000 -30,000 unit delayed release capsule^Take 2 capsules by mouth with meals and at bedtime for 5 days.^Disp: 40 capsule^Rfl: 0 ORENCIA 125 mg/mL injection^INJECT THE CONTENTS OF 1 SYRINGE (125 MG) UNDER THE SKIN ONCE EACH WEEK^Disp: 4 mL^Rfl: 0 rizatriptan (MAXALT) 10 mg tablet^Take 1 tablet by mouth at onset of headache. May repeat after 1hr^Disp: 24 tablet^Rfl: 0 cyanocobalamin (VITAMIN B-12) 1,000 mcg tab^Take 1 tablet by mouth once daily.^Disp: 90 tablet^Rfl:3 ergocalciferol 50,000 unit capsule (VITAMIN D2, DRISDOL)^Take 1 capsule by mouth one time a week.^Disp: 12 capsule^Rfl: 1 magnesium oxide (MAG-OX) 400 mg (241.3 mg magnesium) tablet^Take 1 tablet by mouth once daily.^Disp: 30 tablet^Rfl: 1 omega-3 fatty acids 1,000 mg cap^Take 2 capsules by mouth once daily.^Disp: 60 capsule^Rfl: 12 polyethylene glycol 3350 (MIRALAX) 17 gram/dose powder^Take 17 g by mouth two times a day as neededfor constipation.^Disp: 507 g^Rfl: 1 folic acid 1 mg tablet^Take 1 tablet by mouth once daily. Take with breakfast^Disp: 30 tablet^Rfl: 2 Miscellaneous Medical Supply^Theraworx topical foam for muscle cramp and spasm. Apply 1 to 2 pumps to legs or hands as needed for cramping as directed per package directions.^Disp: 1 Each^Rfl: 5 OTEZLA 30 mg tablet^Take 30 mg by mouth once daily.^Disp: ^Rfl: albuterol HFA (VENTOLIN HFA) 90 mcg/actuation inhaler^Inhale 2 Puffs as instructed every 4 hours asneeded for wheezing/shortness of breath.^Disp: 1 Each^Rfl: 1 rOPINIRole (REQUIP) 1 mg tablet^take 1 tablet by mouth once daily^Disp: 30 tablet^Rfl: 5 omega 0-xbo-gze-fish oil 1,000 mg (250 mg-750 mg)/5 mL liqd^Take 1,000 mg by mouth once daily.^Disp: 90 mL^Rfl: 1 budesonide-formoterol (SYMBICORT) 160-4.5 mcg/actuation inhaler^Inhale 2 Puffs as instructed twice daily.^Disp: 11 g^Rfl: 5 Nebulizers^1 Each once daily.^Disp: 1 Each^Rfl: 0 Blood Pressure Monitor (BLOOD PRESSURE KIT)^1 Each once daily as needed. Dx: recurrent syncope R55^Disp: 1 Kit^Rfl: 0 ALPRAZolam (XANAX) 1 mg tablet^Take 1 mg by mouth twice daily.^Disp: ^Rfl: QUEtiapine (SEROQUEL) 100 mg tablet^Take 2 tablets by mouth daily at bedtime.^Disp: 180 tablet^Rfl:1 vcnebf-yugnbvno-jnbtooa (CREON) 6,000-19,000 -30,000 unit delayed release capsule^Take 2 capsules by mouth with meals and at bedtime.^Disp: 240 capsule^Rfl: 0 iv contrast (will be provided with radiology test)^CT PANCREAS W Inject, intravenously, once for 1 dose.No IV access, insert saline lock prior to the beginning of sedation, infusion, injection of imaging exam. Discontinue saline lock post exam. If Pt. has a central line or IVAD, may access for administration according to line specific nursing protocol. Once exam is complete flush line and de-access according to line specific nursing protocol in the CT contrast administration guidelines link.^Disp: 1 Each^Rfl: 0 (Patient not taking: Reported on 10/30/2023) dicyclomine (BENTYL) 10 mg capsule^Take 1 capsule by mouth four times daily as needed. For abdominal pain.^Disp: 120 capsule^Rfl: 0 (Patient not taking: Reported on 03/23/2024) nicotine (NICOTROL) 10 mg inhaler^Inhale 1 Puff as instructed as needed.^Disp: 1 Each^Rfl: 1 PAST MEDICAL HISTORY Diagnosis Date Acute hepatitis C without mention of hepatic coma(070.51) negative RNA in 2016 Acute left ankle pain 12/18/2017 Acute pneumonia 01/15/2022 Anxiety state 05/29/2005 Dr. 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 Not on medications, not seeing neurology. 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 Choi-ID Prediabetes Psoriasis Rheumatoid arthritis involving multiple sites with positive rheumatoid factor (HCC) 12/13/[address] Bowden RLS (restless legs syndrome) 08/29/2011 Vasovagal syncope Vitamin D deficiency Social History Tobacco Use Smoking status: Former Current packs/day: 0.00 Average packs/day: 1 pack/day for 30.0 years (30.0 ttl pk-yrs) Types: Cigarettes Start date: 06/02/1987 Quit date: 06/02/2017 Years since quittin.8 Smokeless tobacco: Never Vaping Use Vaping status: Never Used Substance Use Topics Alcohol use: No Drug use: No Comment: IV DRUG USER ASSESSMENT/PLAN: 1. COPD with exacerbation (HCC) - ICD9: 491.21, ICD10: J44.1 (primary diagnosis) 2. Pneumonia of both lower lobes due to infectious organism - ICD9: 486, ICD10: J18.9 Feeling somewhat improved. 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 3-7 day recheck with CXR. ER for severe or concerning symptoms. - COMPLETE BLOOD COUNT AND DIFFERENTIAL - COMPREHENSIVE METABOLIC PANEL - FINGER PULSE OXIMETER - XR CHEST 2V FRONTAL/LAT - AZITHROMYCIN 250 MG TABLET - AMOXICILLIN 875 MG TABLET - PREDNISONE 10 MG TABLET - CONSULT TO PULM/CRITICAL CARE - BUDESONIDE-FORMOTEROL HFA 80 MCG-4.5 MCG/ACTUATION AEROSOL INHALER Luana Tripathi APRN.PANEL ASSEMBLER Medical Decision Making: Problems: Moderate: 1+ chronic illnesses with change Data: Unique source(s) for external note(s) reviewed: 1 Unique test result(s) reviewed: 1 Unique test(s) ordered: 3+ Risk: Moderate: Drug management Medical Decision Making Level: 4 - Moderate documented in this encounterSelect [facility] [place] Telephone encounter Note * Telephone Encounter - Elodia Norwood - 03/24/2024 4:55 PM EST Pt was seen in express care they sent her to ER due to low oxygen, ER wanted to admit her but she couldn't stay as she needed to care for her dogs. She is asking if her heart could be causing that. Pt states she feels better today and asked for a nurse to call her back tomorrow to discuss. [facility]12-09-2024 Telephone encounter Note* Telephone Encounter - Malika Mott LPN - 03/23/2024 11:09 AM EST DIMAI: Darcy, Pharmacist with [facility] called to let you know they received a prescription Creon and it was for [address] webb. Darcy, wanted you to know the Creon comes packed 100 per pack. They are going to dispense 100 tablets. Malika Mott LPN [facility]12-09-2024 Miscellaneous Notes* Telephone Encounter - Malika Mott LPN - 03/23/2024 11:09 AM EST FYI: Darcy, Pharmacist with [facility] called to let you know they received a prescription Creon and it was for [address] webb. Darcy, wanted you to know the Creon comes packed 100 per pack. They are going to dispense 100 tablets. Malika Mott LPN documented in this encounterSelect Medical Specialty [facility] [place]12-09-2024 [facility]Prom[facility]12-09-20[facility] History of Present illness Narrative* Solange Barboza PA-C - 03/23/2024 7:45 AM EST This note was created using Avazriter. Subjective David Berg is a 68 year old female. HPI Patient presents with a chief complaint of cough. She has been coughing for a week. She has had shortness of breath. She has a history of COPD. Noted to have pulse ox of 91%. She is not on oxygen at home. Review of Systems Constitutional: Positive for fatigue. HENT: Positive for congestion. Respiratory: Positive for cough, shortness of breath and wheezing. Cardiovascular: Negative. Gastrointestinal: Negative. Genitourinary: Negative. Musculoskeletal: Negative. All other systems reviewed and are negative. PAST MEDICAL HISTORY Diagnosis Date Acute hepatitis C without mention of hepatic coma(070.51) negative RNA in 2016 Acute left ankle pain 12/18/2017 Acute pneumonia 01/15/2022 Anxiety state 05/29/2005 Dr. 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 Not on medications, not seeing neurology. 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 Choi-ID Prediabetes Psoriasis Rheumatoid arthritis involving multiple sites with positive rheumatoid factor (HCC) 12/13/2015 Seeing Dr. Bowden RLS (restless legs syndrome) 08/29/2011 Vasovagal syncope Vitamin D deficiency Current Outpatient Medications Medication Sig Dispense Refill xvgcqh-exnajzqc-vakhnmd (CREON) 6,000-19,000 -30,000 unit delayed release capsule Take 2 capsules by mouth with meals and at bedtime for 5 days. 40 capsule 0 ORENCIA 125 mg/mL injection INJECT THE CONTENTS OF 1 SYRINGE (125 MG) UNDER THE SKIN ONCE EACH WEEK4 mL 0 rizatriptan (MAXALT) 10 mg tablet Take 1 tablet by mouth at onset of headache. May repeat after 1hr24 tablet 0 cyanocobalamin (VITAMIN B-12) 1,000 mcg tab Take 1 tablet by mouth once daily. 90 tablet 3 ergocalciferol 50,000 unit capsule (VITAMIN D2, DRISDOL) Take 1 capsule by mouth one time a week. 12 capsule 1 magnesium oxide (MAG-OX) 400 mg (241.3 mg magnesium) tablet Take 1 tablet by mouth once daily. 30 tablet 1 omega-3 fatty acids 1,000 mg cap Take 2 capsules by mouth once daily. 60 capsule 12 polyethylene glycol 3350 (MIRALAX) 17 gram/dose powder Take 17 g by mouth two times a day as neededfor constipation. 507 g 1 folic acid 1 mg tablet Take 1 tablet by mouth once daily. Take with breakfast 30 tablet 2 [employer] Theraworx topical foam for muscle cramp and spasm. Apply 1 to 2 pumps to legs or hands as needed for cramping as directed per package directions. 1 Each 5 OTEZLA 30 mg tablet Take 30 mg by mouth once daily. albuterol HFA (VENTOLIN HFA) 90 mcg/actuation inhaler Inhale 2 Puffs as instructed every 4 hours asneeded for wheezing/shortness of breath. 1 Each 1 rOPINIRole (REQUIP) 1 mg tablet take 1 tablet by mouth once daily 30 tablet 5 omega 4-qvs-zfz-fish oil 1,000 mg (250 mg-750 mg)/5 mL liqd Take 1,000 mg by mouth once daily. 90 mL 1 Nebulizers 1 Each once daily. 1 Each 0 Blood Pressure Monitor (BLOOD PRESSURE KIT) 1 Each once daily as needed. Dx: recurrent syncope R55 1 Kit 0 ALPRAZolam (XANAX) 1 mg tablet Take 1 mg by mouth twice daily. QUEtiapine (SEROQUEL) 100 mg tablet Take 2 tablets by mouth daily at bedtime. 180 tablet 1 dtkyqg-dqstmgbk-sopocgg (CREON) 6,000-19,000 -30,000 unit delayed release capsule Take 2 capsules by mouth with meals and at bedtime. 240 capsule 0 iv contrast (will be provided with radiology test) CT PANCREAS W Inject, intravenously, once for 1 dose.No IV access, insert saline lock prior to the beginning of sedation, infusion, injection of imaging exam. Discontinue saline lock post exam. If Pt. has a central line or IVAD, may access for administration according to line specific nursing protocol. Once exam is complete flush line and de-access according to line specific nursing protocol in the CT contrast administration guidelines link. (Patient not taking: Reported on 10/30/2023) 1 Each 0 dicyclomine (BENTYL) 10 mg capsule Take 1 capsule by mouth four times daily as needed. For abdominal pain. (Patient not taking: Reported on 03/23/2024) 120 capsule 0 budesonide-formoterol (SYMBICORT) 160-4.5 mcg/actuation inhaler Inhale 2 Puffs as instructed twice daily. 11 g 5 nicotine (NICOTROL) 10 mg inhaler Inhale 1 Puff as instructed as needed. 1 Each 1 Current Facility-Administered Medications Medication Dose Route Frequency Provider Last Rate Last Admin Adult Home Parenteral Nutrition 3:1 INTRAVENOUS DAILY Shay Oro MD PAST SURGICAL HISTORY Procedure Laterality Date BACK SURGERY HX 09/27/2022 CHOLECYSTECTOMY 803157 lap COCHLEAR IMPLANT HX COLONOSCOPY FLX DX W/COLLJ SPEC WHEN PFRMD 10/11/2009 Colonoscopy COLONOSCOPY FLX DX W/COLLJ SPEC WHEN PFRMD 09/30/2018 Colonoscopy EGD EUS N/A 04/06/2020 diffusely dilated PD, suspected pancreas divisum, mild duodenitis ESOPHAGOGASTRODUODENOSCOPY TRANSORAL DIAGNOSTIC 09/30/2018 EGD IR VASCULAR ACCESS TEAM PICC INSERTION RADIO 02/08/2022 OPEN TREATMENT NASAL FRACTURE UNCOMPLICATED x2 no breathing problems PAST SURGICAL HISTORY OF X 2 PAST SURGICAL HISTORY OF FACIAL RECONSTRUCTION PAST SURGICAL HISTORY OF 1997 BILAT. SHOULDER SURGERY PAST SURGICAL HISTORY OF 1994 CERVICAL SPINE FUSION C4, C5 (had cervical fx x3 - even after repair) PAST SURGICAL HISTORY OF 1969 LEFT EAR CHOLESTEATOMA PAST SURGICAL HISTORY OF CLEFT LIP PAST SURGICAL HISTORY OF 02/2006 lasik PAST SURGICAL HISTORY OF 2004 bladder sling PAST SURGICAL HISTORY OF 08/09/2020 Upper endoscopy, percutaneous endoscopic gastrostomy (PEG) tube placed REMV CATARACT EXTRACAP,INSERT LENS Bilateral TRACHEOSTOMY EMERGENCY PROCEDURE TRANSTRACHEAL age 3 or 4 during surgery; lost airway FAMILY HISTORY Problem Relation Age of Onset Stroke Mother Hypertension Mother Diabetes Father Cancer Father melanoma Kidney transplant Father Thyroid Cancer Sister Breast Cancer Sister Thyroid Cancer Sister Breast Cancer Sister Prostate Cancer Brother Cancer Brother 21 testicular Breast Cancer Maternal Aunt Cancer Other G-owaeoi-Juwexzhrzv Social History Tobacco Use Smoking status: Former Current packs/day: 0.00 Average packs/day: 1 pack/day for 30.0 years (30.0 ttl pk-yrs) Types: Cigarettes Start date: 06/02/1987 Quit date: 06/02/2017 Years since quittin.8 Smokeless tobacco: Never Vaping Use Vaping status: Never Used Substance Use Topics Alcohol use: No Drug use: No Comment: IV DRUG USER Objective BP 140/78 Pulse 90 Temp 36.9 C (98.5 F) Resp 21 Wt 53.8 kg (118 lb 9.7 oz) SpO2 91% BMI20.76 kg/m Physical Exam Vitals reviewed. Constitutional: Appearance: Normal appearance. HENT: Head: Normocephalic and atraumatic. Pulmonary: Effort: No respiratory distress. Neurological: General: No focal deficit present. Mental Status: She is alert and oriented to person, place, and time. Assessment and Plan ASSESSMENT/PLAN: 1. Hypoxia - ICD9: 799.02, ICD10: R09.02 Recommended patient go to [facility] ED due to pulse ox being 91% here. Patient declined squad, will go to [place] across the [address]. Solange Barboza PA-C [facility] Telephone encounter Note * Telephone Encounter - Nora Vazquez RN - 03/21/2024 4:04 PM EST Patient calling with medication/refill: Patient/caregiver requesting refill of Creon be called to [facility] pharmacy at [phone]., Allergies reviewed: Yes, Medication, dosage and sig reviewed: Yes., Do you have enough medication to last until the office reopens? No. , and Have you contacted your pharmacy to ask for enough medication to get by until the office reopens? Yes. Patient denies anynew or worsening symptoms of which a provider is not aware:Yes . Allergies reviewed: Yes ALLERGIES Allergen Reactions Acetaminophen Other: See Comments pt told not to take due to liver damage Bupropion Hcl Unknown Codeine Rash, Itching Darvon [Propoxyphen* Itching Daypro [Oxaprozin] Rash Effexor [Venlafaxin* Intolerance decreased libido Flexeril [Cyclobenz* GI Upset, Vomiting Gabapentin Mental Status Change hangover Ibuprofen Other: See Comments pt was told not to take due to kindey damage Stebbins [Hydrocodone-* GI Upset, Itching nausea, itching Oxybutynin Other: See Comments Urinary retention Pentazocine Itching Iberia Trees [Trees] rash Tramadol Intolerance The following medications were verbally ordered by and read back to provider Dr. Mary Kate Naqvi on 03/21/2024 at 4:46 PM by Juarez Alexander RN. Requested Prescriptions Signed Prescriptions Disp Refills njmpdd-bilpgnyc-ggckvdd (CREON) 6,000-19,000 -30,000 unit delayed release capsule 40 capsule 0 Sig: Take 2 capsules by mouth with meals and at bedtime for 5 days. The prescription(s) were escripted to [facility]; by Juarez Alexander RN. Escript confirmed receipt from pharmacy at 4:44 PM Patient/Family notified: Yes [facility]12-07-[facility] Miscellaneous Notes* Telephone Encounter - Nora Vazquez RN - 03/21/2024 4:04 PM EST Patient calling with medication/refill: Patient/caregiver requesting refill of Creon be called to [facility] pharmacy at [phone]., Allergies reviewed: Yes, Medication, dosage and sig reviewed: Yes., Do you have enough medication to last until the office reopens? No. , and Have you contacted your pharmacy to ask for enough medication to get by until the office reopens? Yes. Patient denies anynew or worsening symptoms of which a provider is not aware:Yes . Allergies reviewed: Yes ALLERGIES Allergen Reactions Acetaminophen Other: See Comments pt told not to take due to liver damage Bupropion Hcl Unknown Codeine Rash, Itching Darvon [Propoxyphen* Itching Daypro [Oxaprozin] Rash Effexor [Venlafaxin* Intolerance decreased libido Flexeril [Cyclobenz* GI Upset, Vomiting Gabapentin Mental Status Change hangover Ibuprofen Other: See Comments pt was told not to take due to kindey damage Stebbins [Hydrocodone-* GI Upset, Itching nausea, itching Oxybutynin Other: See Comments Urinary retention Pentazocine Itching Iberia Trees [Trees] rash Tramadol Intolerance The following medications were verbally ordered by and read back to provider Dr. Mary Kate Naqvi on 03/21/2024 at 4:46 PM by Juarez Alexander RN. Requested Prescriptions Signed Prescriptions Disp Refills gqhwez-jmmqwcub-iorbwlr (CREON) 6,000-19,000 -30,000 unit delayed release capsule 40 capsule 0 Sig: Take 2 capsules by mouth with meals and at bedtime for 5 days. The prescription(s) were escripted to [facility]; by Juarez Alexander RN. Escript confirmed receipt from pharmacy at 4:44 PM Patient/Family notified: Yes documented [facility] [place] History of Present illness Narrative* Natasha Ray MD - 03/16/2024 3:20 PM EST Images from the original note were not included. [facility] SE[facility]ARDIOLOGY Cardiology ([facility]) [address] [facility] [id number] OUTPATIENT VISIT DATE 03/16/2024 PRIMARY CARE PHYSICIAN: Lizbeth Pool [address] [place] [address] HISTORY OF PRESENT ILLNESS: Ms. Berg is a 68 year old woman with a history of SVT (likely atrial tachycardia), syncope due toorthostatic hypotension, hyperlipidemia and prior smoking who presents for routine follow-up. Unfortunately, patient went back to smoking. She is hoping to get back on Nicotrol to help with her smoking cessation. She had 1 episode of severe chest pain and palpitations. It started with a migraine headache that progressed for over 24 hours. She did not seek medical attention. She has had not had symptoms of palpitations or heart racing. She denies symptoms concerning for congestive heart failure including PND, orthopnea, or lower extremity edema. PAST MEDICAL HISTORY Diagnosis Date Acute hepatitis C without mention of hepatic coma(070.51) negative RNA in 2016 Acute left ankle pain 12/18/2017 Acute pneumonia 01/15/2022 Anxiety state 05/29/2005 Dr. 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 Not on medications, not seeing neurology. 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 Choi-ID Prediabetes Psoriasis Rheumatoid arthritis involving multiple sites with positive rheumatoid factor (HCC) 12/13/[address] Bowden RLS (restless legs syndrome) 08/29/2011 Vasovagal syncope Vitamin D deficiency PAST SURGICAL HISTORY Procedure Laterality Date BACK SURGERY HX 09/27/2022 CHOLECYSTECTOMY [id number] lap COCHLEAR IMPLANT HX COLONOSCOPY FLX DX W/COLLJ SPEC WHEN PFRMD 10/11/2009 Colonoscopy COLONOSCOPY FLX DX W/COLLJ SPEC WHEN PFRMD 09/30/2018 Colonoscopy EGD EUS N/A 04/06/2020 diffusely dilated PD, suspected pancreas divisum, mild duodenitis ESOPHAGOGASTRODUODENOSCOPY TRANSORAL DIAGNOSTIC 09/30/2018 EGD IR VASCULAR ACCESS TEAM PICC INSERTION RADIO 02/08/2022 OPEN TREATMENT NASAL FRACTURE UNCOMPLICATED x2 no breathing problems PAST SURGICAL HISTORY OF X 2 PAST SURGICAL HISTORY OF FACIAL RECONSTRUCTION PAST SURGICAL HISTORY OF 1997 BILAT. SHOULDER SURGERY PAST SURGICAL HISTORY OF 1994 CERVICAL SPINE FUSION C4, C5 (had cervical fx x3 - even after repair) PAST SURGICAL HISTORY OF 1969 LEFT EAR CHOLESTEATOMA PAST SURGICAL HISTORY OF CLEFT LIP PAST SURGICAL HISTORY OF 02/2006 lasik PAST SURGICAL HISTORY OF 2004 bladder sling PAST SURGICAL HISTORY OF 08/09/2020 Upper endoscopy, percutaneous endoscopic gastrostomy (PEG) tube placed REMV CATARACT EXTRACAP,INSERT LENS Bilateral TRACHEOSTOMY EMERGENCY PROCEDURE TRANSTRACHEAL age 3 or 4 during surgery; lost airway SOCIAL HISTORY Social History Tobacco Use Smoking status: Former Current packs/day: 0.00 Average packs/day: 1 pack/day for 30.0 years (30.0 ttl pk-yrs) Types: Cigarettes Start date: 06/02/1987 Quit date: 06/02/2017 Years since quittin.7 Smokeless tobacco: Never Vaping Use Vaping status: Never Used Substance Use Topics Alcohol use: No Drug use: No Comment: IV DRUG USER FAMILY HISTORY Problem Relation Age of Onset Stroke Mother Hypertension Mother Diabetes Father Cancer Father melanoma Kidney transplant Father Thyroid Cancer Sister Breast Cancer Sister Thyroid Cancer Sister Breast Cancer Sister Prostate Cancer Brother Cancer Brother 21 testicular Breast Cancer Maternal Aunt Cancer Other L-bssdzi-Wjhatvtbve ALLERGIES: ALLERGIES Allergen Reactions Acetaminophen Other: See Comments pt told not to take due to liver damage Bupropion Hcl Unknown Codeine Rash, Itching Darvon [Propoxyphen* Itching Daypro [Oxaprozin] Rash Effexor [Venlafaxin* Intolerance decreased libido Flexeril [Cyclobenz* GI Upset, Vomiting Gabapentin Mental Status Change hangover Ibuprofen Other: See Comments pt was told not to take due to kindey damage Stebbins [Hydrocodone-* GI Upset, Itching nausea, itching Oxybutynin Other: See Comments Urinary retention Pentazocine Itching Iberia Trees [Trees] rash Tramadol Intolerance MEDICATIONS: ORENCIA 125 mg/mL injection^INJECT THE CONTENTS OF 1 SYRINGE (125 MG) UNDER THE SKIN ONCE EACH WEEK^Disp: 4 mL^Rfl: 0 rizatriptan (MAXALT) 10 mg tablet^Take 1 tablet by mouth at onset of headache. May repeat after 1hr^Disp: 24 tablet^Rfl: 0 cyanocobalamin (VITAMIN B-12) 1,000 mcg tab^Take 1 tablet by mouth once daily.^Disp: 90 tablet^Rfl:3 ergocalciferol 50,000 unit capsule (VITAMIN D2, DRISDOL)^Take 1 capsule by mouth one time a week.^Disp: 12 capsule^Rfl: 1 magnesium oxide (MAG-OX) 400 mg (241.3 mg magnesium) tablet^Take 1 tablet by mouth once daily.^Disp: 30 tablet^Rfl: 1 omega-3 fatty acids 1,000 mg cap^Take 2 capsules by mouth once daily.^Disp: 60 capsule^Rfl: 12 drufhf-gofzfvyl-litlhmz (CREON) 6,000-19,000 -30,000 unit delayed release capsule^Take 2 capsules by mouth with meals and at bedtime.^Disp: 240 capsule^Rfl: 0 polyethylene glycol 3350 (MIRALAX) 17 gram/dose powder^Take 17 g by mouth two times a day as neededfor constipation.^Disp: 507 g^Rfl: 1 folic acid 1 mg tablet^Take 1 tablet by mouth once daily. Take with breakfast^Disp: 30 tablet^Rfl: 2 [employer]ellaneous [employer]^Theraworx topical foam for muscle cramp and spasm. Apply 1 to 2 pumps to legs or hands as needed for cramping as directed per package directions.^Disp: 1 Each^Rfl: 5 OTEZLA 30 mg tablet^Take 30 mg by mouth once daily.^Disp: ^Rfl: albuterol HFA (VENTOLIN HFA) 90 mcg/actuation inhaler^Inhale 2 Puffs as instructed every 4 hours asneeded for wheezing/shortness of breath.^Disp: 1 Each^Rfl: 1 rOPINIRole (REQUIP) 1 mg tablet^take 1 tablet by mouth once daily^Disp: 30 tablet^Rfl: 5 dicyclomine (BENTYL) 10 mg capsule^Take 1 capsule by mouth four times daily as needed. For abdominal pain.^Disp: 120 capsule^Rfl: 0 omega 9-jnv-wfl-fish oil 1,000 mg (250 mg-750 mg)/5 mL liqd^Take 1,000 mg by mouth once daily.^Disp: 90 mL^Rfl: 1 budesonide-formoterol (SYMBICORT) 160-4.5 mcg/actuation inhaler^Inhale 2 Puffs as instructed twice daily.^Disp: 11 g^Rfl: 5 nicotine (NICOTROL) 10 mg inhaler^Inhale 1 Puff as instructed as needed.^Disp: 1 Each^Rfl: 1 Nebulizers^1 Each once daily.^Disp: 1 Each^Rfl: 0 Blood Pressure Monitor (BLOOD PRESSURE KIT)^1 Each once daily as needed. Dx: recurrent syncope R55^Disp: 1 Kit^Rfl: 0 ALPRAZolam (XANAX) 1 mg tablet^Take 1 mg by mouth twice daily.^Disp: ^Rfl: QUEtiapine (SEROQUEL) 100 mg tablet^Take 2 tablets by mouth daily at bedtime.^Disp: 180 tablet^Rfl:1 iv contrast (will be provided with radiology test)^CT PANCREAS W Inject, intravenously, once for 1 dose.No IV access, insert saline lock prior to the beginning of sedation, infusion, injection of imaging exam. Discontinue saline lock post exam. If Pt. has a central line or IVAD, may access for administration according to line specific nursing protocol. Once exam is complete flush line and de-access according to line specific nursing protocol in the CT contrast administration guidelines link.^Disp: 1 Each^Rfl: 0 (Patient not taking: Reported on 10/30/2023) REVIEW OF SYSTEMS: Review of Systems Constitutional: Negative for chills, fever, malaise/fatigue and weight loss. HENT: Negative for hearing loss and sore throat. Eyes: Negative for blurred vision and double vision. Respiratory: Negative. Cardiovascular: Negative. Gastrointestinal: Positive for abdominal pain, heartburn and nausea. Negative for blood in stool, constipation, diarrhea, melena and vomiting. Genitourinary: Negative for dysuria, frequency, hematuria and urgency. Musculoskeletal: Negative. Skin: Negative. Neurological: Negative for dizziness, seizures, loss of consciousness, weakness and headaches. Endo/Heme/Allergies: Negative for environmental allergies. Does not bruise/bleed easily. Psychiatric/Behavioral: Negative for depression. PHYSICAL EXAMINATION: BP 138/80 Pulse 74 Resp 16 Wt 53 kg (116 lb 13.5 oz) BMI 20.45 kg/m General: Thin somewhat cachectic woman sitting appears comfortable mildly anxious no apparent distress. HEENT: Carotid upstrokes are brisk bilaterally without bruits. No JVD appreciated. Pulmonary: Lungs are clear no rales, wheezes, rhonchi Cardiovascular: Normal S1, S2 with regular rate and rhythm. No murmurs, rubs, or gallops appreciated. Abdomen: Soft, flat, diminished bowel sounds. Place. No erythema. Extremities: Warm, well-perfused, no lower extremity edema. CARDIOVASCULAR MEDICINE TESTING: Lexiscan Myoview stress test 04/30/2018: CONCLUSIONS: 1. SPECT Perfusion Study: Normal. 2. There is no scintigraphic evidence for inducible ischemia. 3. No evidence of scarred myocardium. 4. Functional capacity N/A (pharmacological). 5. Left ventricle is normal in size. The left ventricle systolic function is hyperdynamic. 6. This is a low risk scan. Gated Stress FBP LVEF % 84 Echocardiogram 08/29/2023: - The left ventricle is normal in size. There is mild left ventricular hypertrophy. Left ventricular systolic function is normal. EF = 64 5% (2D biplane). Normal left ventricular diastolic function. - The right ventricle is normal in size. Right ventricular systolic function is normal. - Mild (1+) mitral valve regurgitation. - There is systolic anterior motion (LINDSAY) at rest with an LVOT gradient of 5 mmHg, no change with valsalva. No evidence of significant outflow tract obstruction. - Exam was compared with the prior CC echocardiographic exam performed on 01/19/2022. Mitral regurgitation appears less severe in today's study. Echocardiogram 01/19/2022: - Technically difficult exam due to uncooperative patient and respiratory interference. - Exam indication: Abnormal ECG - The left ventricle is normal in size. There is no left ventricular hypertrophy. Left ventricular systolic function is normal. EF = 56 5% (3D) Grade I left ventricular diastolic dysfunction. - The right ventricle is normal in size. Right ventricular systolic function is normal. - No significant valve disease: Trivial AI, 1-2+ MR, trivial TR - The patient has not had a prior CC echocardiographic exam for comparison. Echocardiogram 04/22/2020: CONCLUSIONS: - Exam indication: Syncope - The left ventricle is normal in size. Left ventricular systolic function is normal. EF = 63 5% (2D biplane) Normal left ventricular diastolic function. - The right ventricle is normal in size. Right ventricular systolic function is normal. - There is LINDSAY at rest with an LVOT gradient of 3 mmHg. No change with valsalva. No evidence of significant outflow tract obstruction. - Exam was compared with the prior CC echocardiographic exam performed on 02/17/2013 (Stress). There has been no change. Extended Monitor 02/08/20-02/22/20: Patient had a min HR of 45 bpm, max HR of 182 bpm, and avg HR of 79bpm. Predominant underlying rhythm was Sinus Rhythm. 376 Supraventricular Tachycardia runs occurred, the run with the fastest interval lasting 4 beats with a max rate of 182 bpm, the longest lasting 2 mins 43 secs with an avg rate of 133 bpm. Supraventricular Tachycardia was detected within +/- 45 seconds of symptomatic patient event(s). Isolated SVEs were rare (<1.0%), SVE Couplets were rare (<1.0%), andSVE Triplets were rare (<1.0%). Isolated VEs were rare (<1.0%), and no VE Couplets or VE Triplets were present. Holter monitor 12/29/2019: IMPRESSIONS AND FINDINGS: Sinus rhythm Maximum HR-144 bpm, minimum HR-52 bpm. Average HR-79 bpm. Very rare SVEs were seen as singles. Runs of SVT / atrial tachycardia were present. Longest run 16 beats, 108 bpm, fastest run 7 beats, 112 bpm. One VE was seen as a single. No symptoms noted on patient diary. Patient event markers were not activated. Brief Interpretation ; Sinus rhythm ; Supraventricular ectopy ; atrial/supraventricular tachycardiarun(s) ; ventricular ectopic Carotid ultrasound 05/31/2022: IMPRESSION Compared to prior study of 05/15/2019, Unable to reproduce velocities in the right internal carotid artery of 40-59%. No change on the left. RIGHT SIDE Internal carotid artery: 20-39% stenosis. Vertebral artery: Patent and antegrade flow noted. High resistive signal suggests non-dominant vessel or more distal disease; clinical correlation is suggested. Innominate artery: Unable to visualize. LEFT SIDE Internal carotid artery: 20-39% stenosis. Vertebral artery: Patent and antegrade flow noted. Carotid ultrasound 05/15/2019: IMPRESSION RIGHT SIDE Internal carotid artery: 40-59% stenosis. Tortuous vessel from mid to distal . Degree of stenosis may be overestimated due to tortuosity at mid to distal vessel. Vertebral artery: Patent and antegrade flow noted. High resistive signal suggests non-dominant vessel or more distal disease; clinical correlation is suggested. Innominate artery: Unable to visualize. Subclavian artery: Unable to visualized origin. Proximal vessel is patent. LEFT SIDE Internal carotid artery: 20-39% stenosis. Vertebral artery: Patent and antegrade flow noted. CT chest without IV contrast 12/28/2019: Heart, pericardium, and thoracic vessels: The thoracic aorta and main pulmonary artery are normal in caliber. The cardiac chambers are normal in size. No coronary artery atherosclerotic calcifications are noted, although the study is not optimized for coronary assessment. No pericardial effusion orthickening. IMPRESSION: Ms. Berg is a 68 year old woman with multiple medical problems and syncope secondary to orthostatic hypotension. She has history of SVT likely atrial tachycardia with associated feelings of palpitations. Her risk factors for coronary disease include a longstanding history of smoking, known carotid artery disease, and dyslipidemia. She had a low risk stress test completed in 2019. PLAN AND RECOMMENDATIONS: 1. Other chest pain - ICD9: 786.59, ICD10: R07.89 (primary diagnosis) Patient longstanding history of atypical chest pain. Recent event seem like it was caused by her migraine headache. I have asked her to seek emergency medical attention if she has recurrent symptoms. 2. Palpitations - ICD9: 785.1, ICD10: R00.2 Remains relatively asymptomatic 3. Orthostatic hypotension - ICD9: 458.0, ICD10: I95.1 Doing well on current regimen. 4. Mixed hyperlipidemia - ICD9: 272.2, ICD10: E78.2 Patient stopped taking her Lipitor. She wanted to try to treat her cholesterol naturally. Most recent fasting lipid panel was completed in November. LDL cholesterol is 126 mg/dL. Discussed the risk benefits of statin medication with her in detail. Patient is reluctant to consider new medications at this time 5. Bilateral carotid artery stenosis - ICD9: 433.10, 433.30, ICD10: I65.23 Mild disease most recent carotid ultrasound 6. Vasovagal syncope - ICD9: 780.2, ICD10: R55 Natasha Ray MD documented [facility] Tele[facility] encounter Note* Telephone Encounter - Tracy Chiu RN - 03/10/2024 3:43 PM EST Please see phone encounter 03/05 [facility]11-26-2024 Miscellaneous Notes* Telephone Encounter - Tracy Chiu RN - 03/10/2024 3:43 PM EST Please see phone encounter 03/05 * Telephone Encounter - Malika Mott LPN - 02/27/2024 1:57 PM EST Pt called [facility] and did not hear back. She will try them again. Malika Mott LPN * Telephone Encounter - Malika Mott LPN - 02/19/2024 3:01 PM EST Spoke with pt and information listed below given. Pt reports [facility] got her the bed. Pt instructed to call [facility] and see where they got the bed and let our office know so we can request a mattress for her. Malika Mott LPN * Telephone Encounter - Luana Tripathi APRN.CNS - 02/13/2024 5:09 PM EDT ok sed it where needed * Telephone Encounter - Malika Mott LPN - 02/13/2024 4:51 PM EDT Sherry with [employer] ([facility] called to let you know they received an order for a matress for a semielectric bed and they are not able to supply this. Pt did not get her bed from them. Sherry reports pt will need to contact the company where she got her bed. Malika Mott LPN documented in this encounterSelect [facility] [place]11-[facility]-2024 Telephone encounter Note * Telephone Encounter - Nicky Navarro LPN - 03/10/2024 11:13 AM EST Order and office note has been faxed. PATIENT NOTIFIED OF SAME. [facility]11-26-2024 Miscellaneous Notes* Telephone Encounter - Nicky Navarro LPN - 03/10/2024 11:13 AM EST Order and office note has been faxed. PATIENT NOTIFIED OF SAME. * Telephone Encounter - Delaney Mora APRN.CNP - 03/10/2024 11:06 AM EST New order placed. * Telephone Encounter - Nicky Navarro LPN - 03/10/2024 10:52 AM EST Spoke with a ambulatory services representative at [facility] and a new order for the hospital bed and mattress is needed with previous dx from original order. Note: office note needs to state that patient needs a hospital bed due to needing frequent body prosition changes that is not possible with a regular bed. * Telephone Encounter - Nicky Navarro LPN - 03/10/2024 10:14 AM EST Patient was seen 02/13/24. She states that she does need a new bed as foot board of bed is broken and cuts her feet (note patient does have restless legs) Tries to keep a blanket over the foot board to prevent lacerations but sometimes she kicks the blanket off. Is needing a new mattress as current is no longer supportive. * Telephone Encounter - Greg Abrams MD - 03/09/2024 6:53 PM EST See 02/03/24 telephone encounter response by Delaney for 01/23/24 telephone encounter: I had placed the orders for the new mattress, I got a fax stating she does not meet the specific requirements, in order to support the order she will need to come in for an appointment. Okay to wait until scheduled 03/26 appointment if she feels she can wait that long. See if something changed since January and if needs appointment moved up in order to get order filed. See if there are requirements that need med and whether meets them * Telephone Encounter - Cat Cam LPN - 03/05/2024 2:46 PM EST Lynn from [facility]. They stated that they are needing a new rxs for hospital bed and hospital matress. patient is due for a replacement. This is going to [facility] at fax# [phone] Please review and advise. Cat Cam LPN documented in this encounterSelect [facility] [place]11-26-2024 Telephone encounter Note * Telephone Encounter - Delaney Mora APRN.EDMUND - 03/10/2024 11:06 AM EST New order placed. [facility]11-26-2024 Telephone encounter Note* Telephone Encounter - Nicky Navarro LPN - 03/10/2024 10:52 AM EST Spoke with a ambulatory services representative at [facility] and a new order for the hospital bed and mattress is needed with previous dx from original order. Note: office note needs to state that patient needs a hospital bed due to needing frequent body prosition changes that is not possible with a regular bed. [facility]11-26-2024 Telephone encounter Note* Telephone Encounter - Nicky Navarro LPN - 03/10/2024 10:14 AM EST Patient was seen 02/13/24. She states that she does need a new bed as foot board of bed is broken and cuts her feet (note patient does have restless legs) Tries to keep a blanket over the foot board to prevent lacerations but sometimes she kicks the blanket off. Is needing a new mattress as current is no longer supportive. [facility]11-25-2024 Telephone encounter Note* Telephone Encounter - Greg Abrams MD - 03/09/2024 6:53 PM EST See 02/03/24 telephone encounter response by Delaney for 01/23/24 telephone encounter: I had placed the orders for the new mattress, I got a fax stating she does not meet the specific requirements, in order to support the order she will need to come in for an appointment. Okay to wait until scheduled 03/26 appointment if she feels she can wait that long. See if something changed since January and if needs appointment moved up in order to get order filed. See if there are requirements that need med and whether meets them [facility]11-25-2024 Telephone encounter Note* Telephone Encounter - Aziza Hernandez MA - 03/09/2024 9:18 AM EST Images from the original note were not included. Most recent Rheumatology visit: 02/04/2024 (with Deloris Juarez) Last Bone Density on file: 12/14/2022 Rheumatology Care Team: None on file Recent Office Visits - This Specialty 02/04/2024 Rheumatoid arthritis involving multiple sites with positive rheumatoid factor (HCC) Rheumatology Deloris Juarez APRN.ALMOND ROASTER 11/29/2021 Inflammatory arthritis Rheumatology Deloris Juarez APRN.ALMOND ROASTER 01/12/2019 Rheumatoid arthritis involving multiple sites with positive rheumatoid factor (HCC) Rheumatology Deloris Juarez, LEARNING DISABILITIES TEACHER.ALMOND ROASTER Upcoming Rheumatology Appointments - Next 365 Days No appointments to display CBC: Latest Ref Rng & Units 11/21/2023 02/04/2024 CBC WBC 3.70 - 11.00 k/uL 7.64 6.54 Hemoglobin 11.5 - 15.5 g/dL 14.3 15.7 Hematocrit 36.0 - 46.0 % 44.2 45.7 Platelet Count 150 - 400 k/uL 236 230 Vitamin D: Latest Ref Rng & Units 11/21/2023 02/04/2024 Vitamin D Vitamin D 25 Hydroxy 31.0 - 80.0 ng/mL 43.0 36.6 LFT: Latest Ref Rng & Units 01/06/2024 02/04/2024 CMP Sodium 136 - 144 mmol/L 142 Potassium 3.7 - 5.1 mmol/L 4.2 3.6 Chloride 98 - 107 mmol/L 103 CO2 22 - 30 mmol/L 28 Glucose 74 - 99 mg/dL 91 BUN 7 - 21 mg/dL 6 Creatinine 0.58 - 0.96 mg/dL 0.70 Calcium 8.5 - 10.2 mg/dL 10.7 AST 13 - 35 U/L 37 ALT 7 - 38 U/L 22 Alkaline Phosphatase 34 - 123 U/L 80 Hepatic Function: Creatinine: Latest Ref Rng & Units 11/21/2023 02/04/2024 Creatinine Creatinine 0.58 - 0.96 mg/dL 0.84 0.70 ESR/CRP: Latest Ref Rng & Units 11/30/2021 02/04/2024 ESR, WSR WSR 0 - 20 mm/hr 9 5 Latest Ref Rng & Units 11/30/2021 02/04/2024 CRP CRP <0.9 mg/dL 2.0 <0.3 Uric Acid: None on file in the last 6 months Open Standing (Multiple Instance) Lab Orders None Open Future (Single Instance) Lab Orders Expected Expires Ordered COMPREHENSIVE METABOLIC PANEL [SQCMP] 03/15/24 06/14/24 11/29/23 Auth. provider: Greg Abrams MD Assoc. diagnoses: Hyperkalemia COMPLETE BLOOD COUNT AND DIFFERENTIAL [SQCBCDIF] 03/15/24 06/14/24 11/29/23 Auth. provider: Greg Abrams MD Assoc. diagnoses: Macrocytosis without anemia FOLATE, SERUM [SQSERFOL] 03/15/24 06/14/24 11/29/23 Auth. provider: Greg Abrams MD Assoc. diagnoses: Macrocytosis without anemia VITAMIN B12 [SQB12] 03/15/24 06/14/24 11/29/23 Auth. provider: Greg Abrams MD Assoc. diagnoses: Macrocytosis without anemia [facility]11-25-2024 Miscellaneous Notes* Telephone Encounter - Aziza Hernandez MA - 03/09/2024 9:18 AM EST Images from the original note were not included. Most recent Rheumatology visit: 02/04/2024 (with Deloris Juarez) Last Bone Density on file: 12/14/2022 Rheumatology Care Team: None on file Recent Office Visits - This Specialty 02/04/2024 Rheumatoid arthritis involving multiple sites with positive rheumatoid factor (HCC) Rheumatology Deloris Juarez, LEARNING DISABILITIES TEACHER.ALMOND ROASTER 11/29/2021 Inflammatory arthritis Rheumatology Deloris Juarez, LEARNING DISABILITIES TEACHER.ALMOND ROASTER 01/12/2019 Rheumatoid arthritis involving multiple sites with positive rheumatoid factor (HCC) Rheumatology Deloris Juarez, LEARNING DISABILITIES TEACHER.ALMOND ROASTER Upcoming Rheumatology Appointments - Next 365 Days No appointments to display CBC: Latest Ref Rng & Units 11/21/2023 02/04/2024 CBC WBC 3.70 - 11.00 k/uL 7.64 6.54 Hemoglobin 11.5 - 15.5 g/dL 14.3 15.7 Hematocrit 36.0 - 46.0 % 44.2 45.7 Platelet Count 150 - 400 k/uL 236 230 Vitamin D: Latest Ref Rng & Units 11/21/2023 02/04/2024 Vitamin D Vitamin D 25 Hydroxy 31.0 - 80.0 ng/mL 43.0 36.6 LFT: Latest Ref Rng & Units 01/06/2024 02/04/2024 CMP Sodium 136 - 144 mmol/L 142 Potassium 3.7 - 5.1 mmol/L 4.2 3.6 Chloride 98 - 107 mmol/L 103 CO2 22 - 30 mmol/L 28 Glucose 74 - 99 mg/dL 91 BUN 7 - 21 mg/dL 6 Creatinine 0.58 - 0.96 mg/dL 0.70 Calcium 8.5 - 10.2 mg/dL 10.7 AST 13 - 35 U/L 37 ALT 7 - 38 U/L 22 Alkaline Phosphatase 34 - 123 U/L 80 Hepatic Function: Creatinine: Latest Ref Rng & Units 11/21/2023 02/04/2024 Creatinine Creatinine 0.58 - 0.96 mg/dL 0.84 0.70 ESR/CRP: Latest Ref Rng & Units 11/30/2021 02/04/2024 ESR, WSR WSR 0 - 20 mm/hr 9 5 Latest Ref Rng & Units 11/30/2021 02/04/2024 CRP CRP <0.9 mg/dL 2.0 <0.3 Uric Acid: None on file in the last 6 months Open Standing (Multiple Instance) Lab Orders None Open Future (Single Instance) Lab Orders Expected Expires Ordered COMPREHENSIVE METABOLIC PANEL [SQCMP] 03/15/24 06/14/24 11/29/23 Auth. provider: Greg Abrams MD Assoc. diagnoses: Hyperkalemia COMPLETE BLOOD COUNT AND DIFFERENTIAL [SQCBCDIF] 03/15/24 06/14/24 11/29/23 Auth. provider: Greg Abrams MD Assoc. diagnoses: Macrocytosis without anemia FOLATE, SERUM [SQSERFOL] 03/15/24 06/14/24 11/29/23 Auth. provider: Greg Abrams MD Assoc. diagnoses: Macrocytosis without anemia VITAMIN B12 [SQB12] 03/15/24 06/14/24 11/29/23 Auth. provider: Greg Abrams MD Assoc. diagnoses: Macrocytosis without anemia documented in this encounterSelect [facility] [place]11-21-2024 Telephone encounter Note * Telephone Encounter - Cat Cam LPN - 03/05/2024 2:46 PM EST [facility] They stated that they are needing a new rxs for hospital bed and hospital matress. patient is due for a replacement. This is going to [facility] at fax# [phone] Please review and advise. Cat Cam LPN [facility]11-14-2024 Telephone encounter Note* Telephone Encounter - Malika Mott LPN - 02/27/2024 1:57 PM EST Pt called [facility] and did not hear back. She will try them again. Malika Mott LPN [facility]11-07-2024 Telephone encounter Note* Telephone Encounter - Meenu Ceja MA - 02/20/2024 1:30 PM EST I spoke with patient to inform her that I Faxed as requested to [phone].I also let her know that a copy is available via [employer] under letters. Thank you, Meenu Ceja MA [facility]11-07-2024 Miscellaneous Notes* Telephone Encounter - Meenu Ceja MA - 02/20/2024 1:30 PM EST I spoke with patient to inform her that I Faxed as requested to [phone].I also let her know that a copy is available via [employer] under letters. Thank you, Meenu Ceja MA * Telephone Encounter - Meenu Ceja MA - 02/20/2024 11:59 AM EST I did a letter for her to confirm that she was seen in office on 02/04/2024 with you. Is this okay?If so I will go ahead and fax to [facility] as she has requested. Thank you, Meenu Ceja MA * Telephone Encounter - Isabel Emanuel - 02/20/2024 11:37 AM EST David is calling Deloris Juarez APRN.CNP today to request verification that she was seen on 02/04/24 in office to go to [email or web address] services for her to remain on the ride program. Please faxto fax [phone], Attn: Bere. Please fax as soon as possible so patient can remain on the program. Patient has been identified by name and birthdate. Duration of symptoms: N/A Person calling: self Call patient at: on cell [phone] (home) [phone] (cell) Was an appointment scheduled: No Closing statement: Results or non-symptom based questions: Thank you for calling [facility], your call will be returned within the next business day. Isabel Allison documented in this encounterSelect Medical [facility]ty [facility] [place]11-07-2024 Telephone encounter Note * Telephone Encounter - Meenu Ceja MA - 02/20/2024 11:59 AM EST I did a letter for her to confirm that she was seen in office on 02/04/2024 with you. Is this okay?If so I will go ahead and fax to [facility] as she has requested. Thank you, Meenu Ceja MA [facility]11-07-2024 Telephone encounter Note* Telephone Encounter - Isabel Emanuel - 02/20/2024 11:37 AM EST David is calling Deloris Juarez APRN.CNP today to request verification that she was seen on 02/04/24 in office to go to [email or web address] services for her to remain on the ride program. Please faxto fax [phone], Attn: Bere. Please fax as soon as possible so patient can remain on the program. Patient has been identified by name and birthdate. Duration of symptoms: N/A Person calling: self Call patient at: on cell [phone] (home) [phone] (cell) Was an appointment scheduled: No Closing statement: Results or non-symptom based questions: Thank you for calling [facility], your call will be returned within the next business day. Isabel Allison [facility]11-06-2024 Telephone encounter Note* Telephone Encounter - Malika Mott LPN - 02/19/2024 3:01 PM EST Spoke with pt and information listed below given. Pt reports [facility] got her the bed. Pt instructed to call [employer] and see where they got the bed and let our office know so we can request a mattress for her. Malika Mott LPN [facility]11-06-2024 Telephone encounter Note* Telephone Encounter - Magui Sherman - 02/19/2024 11:19 AM EST Relayed message below and patient understood. Lab work placed in mail today. Had questions regarding taking Prolia, she read information and it said if you have bone dense you should not take it. Just has concerns with what it will/can do to her fragile bones. [facility]11-06-2024 Miscellaneous Notes* Telephone Encounter - Magui Sherman - 02/19/2024 11:19 AM EST Relayed message below and patient understood. Lab work placed in mail today. Had questions regarding taking Prolia, she read information and it said if you have bone dense you should not take it. Just has concerns with what it will/can do to her fragile bones. * Telephone Encounter - Deloris Juarez APRN.EDMUND - 02/19/2024 9:45 AM EST Please let her know the labs are stable at this time. (we can mail her a copy as well as she does not have my chart) Deloris Juarez APRN.EDMUND * Telephone Encounter - Avani Rayo RN - 02/15/2024 9:23 AM EDT Patient requesting provider to advise her on her recent lab results from 02/04/24 when able. Thank you. Avani Rayo RN documented in this encounterSelect Medical [facility] [place]11-[facility]-2024 Telephone encounter Note * Telephone Encounter - Deloris Juarez APRN.EDMUND - 02/19/2024 9:45 AM EST Please let her know the labs are stable at this time. (we can mail her a copy as well as she does not have my chart) Deloris Juarez APRN.EDMUND [facility]11-02-2024 Telephone encounter Note* Telephone Encounter - Avani Rayo RN - 02/15/2024 9:23 AM EDT Patient requesting provider to advise her on her recent lab results from 02/04/24 when able. Thank you. Avani Rayo RN [facility]10-31-2024 Telephone encounter Note* Telephone Encounter - Luana Tripathi APRN.PANEL ASSEMBLER - 02/13/2024 5:09 PM EDT ok sed it where needed [facility]10-31-2024 Telephone encounter Note* Telephone Encounter - Malika Mott LPN - 02/13/2024 4:51 PM EDT Sherry with [employer] (DME) called to let you know they received an order for a matress for a semielectric bed and they are not able to supply this. Pt did not get her bed from them. Sherry reports pt will need to contact the company where she got her bed. Malika Mott LPN [facility] History of Present illness Narrative* Luana Tripathi APRN.PANEL ASSEMBLER - 02/13/2024 1:00 PM EDT SUBJECTIVE: Depression Screening Never done Shingrix Vaccine(1 of 2) Never done Alpha-1 Antitrypsin Deficiency Screening Never done RSV Vaccine(1 - Risk 60-74 years 1-dose series) Never done Cervical Cancer Screening due on 01/15/2019 Lung Cancer Screening due on 12/27/2020 Advance Directive Discussion Never done BP Controlled (<130/80) due on 07/07/2023 Mammogram Screening due on 09/05/2023 DTaP,Tdap,Td Vaccine(3 - Td or Tdap) due on 09/15/2023 Influenza Vaccine(1) due on 12/15/2023 HPI David Berg is a 68 year old female. PMH significant for ACTIVE PROBLEM LIST Anxiety State Generalized Convulsive Epilepsy (Hcc) Other Emphysema (Hcc) Epigastric Pain Low Back Pain Ddd (Degenerative Disc Disease), Cervical Nerve Sheath Tumor Rls (Restless Legs Syndrome) Migraine Headache Falls Palpitations Positive Ppd Insomnia Cervicalgia Left-Sided Low Back Pain With Left-Sided Sciatica Hnp (Herniated Nucleus Pulposus), Lumbar Rheumatoid Arthritis Involving Multiple Sites With Positive Rheumatoid Factor (Hcc) Dry Eye Syndrome Hyperlipidemia Pain in Toe of Left Foot Prediabetes Constipation, Unspecified Left Sided Colitis Without Complications (Hcc) Syncope Orthostatic Hypotension Steatorrhea, Pancreatic Pancreas Divisum Severe Protein-Calorie Malnutrition (Hcc) Abscess Abscess of Abdominal Cavity (Hcc) Other Chest Pain Nausea & Vomiting Bilateral Carotid Artery Stenosis Presents regarding a replacement mattress for hospital bed. She reports she has used a hospital bedevery day for the last 15 years for mobility issues related to rheumatoid arthritis. She is in need of a replacement mattress due to the breakdown of her current mattress especially inthe central portion, it is caved in. This is a 15 year old mattress. She uses a trapeze mechanical maintenance worker overhead on the hospital bed frame to help her get out of bed. She cannot get out of a normal bed due toarthritis in her spine, arms and legs. She is currently using the hospital bed mattress daily and will ice is much benefit from it. Review of Systems Constitutional: Negative. Musculoskeletal: Positive for arthralgias, back pain, gait problem and joint swelling. Objective BP 149/77 Pulse 76 Resp 16 Wt 54 kg (119 lb 0.8 oz) BMI 20.83 kg/m Physical Exam Vitals and nursing note reviewed. Constitutional: Appearance: Normal appearance. HENT: Head: Normocephalic and atraumatic. Eyes: Conjunctiva/sclera: Conjunctivae normal. Cardiovascular: Rate and Rhythm: Normal rate. Pulmonary: Effort: Pulmonary effort is normal. Musculoskeletal: Right hand: Deformity present. No tenderness. Decreased range of motion. Left hand: Deformity and tenderness present. Decreased range of motion. Cervical back: Tenderness present. Decreased range of motion. Thoracic back: Tenderness present. Decreased range of motion. Lumbar back: Tenderness present. Decreased range of motion. Right foot: Decreased range of motion. Tenderness present. Left foot: Decreased range of motion. Tenderness present. Skin: General: Skin is warm and dry. Neurological: General: No focal deficit present. Mental Status: She is alert and oriented to person, place, and time. ALLERGIES Allergen Reactions Acetaminophen Other: See Comments pt told not to take due to liver damage Bupropion Hcl Unknown Codeine Rash, Itching Darvon [Propoxyphen* Itching Daypro [Oxaprozin] Rash Effexor [Venlafaxin* Intolerance decreased libido Flexeril [Cyclobenz* GI Upset, Vomiting Gabapentin Mental Status Change hangover Ibuprofen Other: See Comments pt was told not to take due to kindey damage Stebbins [Hydrocodone-* GI Upset, Itching nausea, itching Oxybutynin Other: See Comments Urinary retention Pentazocine Itching Iberia Trees [Trees] rash Tramadol Intolerance rizatriptan (MAXALT) 10 mg tablet^Take 1 tablet by mouth at onset of headache. May repeat after 1hr^Disp: 24 tablet^Rfl: 0 ORENCIA 125 mg/mL injection^INJECT THE CONTENTS OF 1 SYRINGE (125 MG) UNDER THE SKIN ONCE EACH WEEK^Disp: 4 mL^Rfl: 0 cyanocobalamin (VITAMIN B-12) 1,000 mcg tab^Take 1 tablet by mouth once daily.^Disp: 90 tablet^Rfl:3 ergocalciferol 50,000 unit capsule (VITAMIN D2, DRISDOL)^Take 1 capsule by mouth one time a week.^Disp: 12 capsule^Rfl: 1 magnesium oxide (MAG-OX) 400 mg (241.3 mg magnesium) tablet^Take 1 tablet by mouth once daily.^Disp: 30 tablet^Rfl: 1 omega-3 fatty acids 1,000 mg cap^Take 2 capsules by mouth once daily.^Disp: 60 capsule^Rfl: 12 polyethylene glycol 3350 (MIRALAX) 17 gram/dose powder^Take 17 g by mouth two times a day as neededfor constipation.^Disp: 507 g^Rfl: 1 folic acid 1 mg tablet^Take 1 tablet by mouth once daily. Take with breakfast^Disp: 30 tablet^Rfl: 2 Miscellaneous Medical Supply^Theraworx topical foam for muscle cramp and spasm. Apply 1 to 2 pumps to legs or hands as needed for cramping as directed per package directions.^Disp: 1 Each^Rfl: 5 OTEZLA 30 mg tablet^Take 30 mg by mouth once daily.^Disp: ^Rfl: albuterol HFA (VENTOLIN HFA) 90 mcg/actuation inhaler^Inhale 2 Puffs as instructed every 4 hours asneeded for wheezing/shortness of breath.^Disp: 1 Each^Rfl: 1 rOPINIRole (REQUIP) 1 mg tablet^take 1 tablet by mouth once daily^Disp: 30 tablet^Rfl: 5 dicyclomine (BENTYL) 10 mg capsule^Take 1 capsule by mouth four times daily as needed. For abdominal pain.^Disp: 120 capsule^Rfl: 0 omega 4-mbs-ljb-fish oil 1,000 mg (250 mg-750 mg)/5 mL liqd^Take 1,000 mg by mouth once daily.^Disp: 90 mL^Rfl: 1 Nebulizers^1 Each once daily.^Disp: 1 Each^Rfl: 0 Blood Pressure Monitor (BLOOD PRESSURE KIT)^1 Each once daily as needed. Dx: recurrent syncope R55^Disp: 1 Kit^Rfl: 0 ALPRAZolam (XANAX) 1 mg tablet^Take 1 mg by mouth twice daily.^Disp: ^Rfl: QUEtiapine (SEROQUEL) 100 mg tablet^Take 2 tablets by mouth daily at bedtime.^Disp: 180 tablet^Rfl:1 fibhgp-ypqkvaqg-sobpwof (CREON) 6,000-19,000 -30,000 unit delayed release capsule^Take 2 capsules by mouth with meals and at bedtime.^Disp: 240 capsule^Rfl: 0 iv contrast (will be provided with radiology test)^CT PANCREAS W Inject, intravenously, once for 1 dose.No IV access, insert saline lock prior to the beginning of sedation, infusion, injection of imaging exam. Discontinue saline lock post exam. If Pt. has a central line or IVAD, may access for administration according to line specific nursing protocol. Once exam is complete flush line and de-access according to line specific nursing protocol in the CT contrast administration guidelines link.^Disp: 1 Each^Rfl: 0 (Patient not taking: Reported on 10/30/2023) budesonide-formoterol (SYMBICORT) 160-4.5 mcg/actuation inhaler^Inhale 2 Puffs as instructed twice daily.^Disp: 11 g^Rfl: 5 nicotine (NICOTROL) 10 mg inhaler^Inhale 1 Puff as instructed as needed.^Disp: 1 Each^Rfl: 1 PAST MEDICAL HISTORY Diagnosis Date Acute hepatitis C without mention of hepatic coma(070.51) negative RNA in 2016 Acute left ankle pain 12/18/2017 Acute pneumonia 01/15/2022 Anxiety state 05/29/2005 Dr. 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 Not on medications, not seeing neurology. 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 Choi-ID Prediabetes Psoriasis Rheumatoid arthritis involving multiple sites with positive rheumatoid factor (HCC) 12/13/[address] Bowden RLS (restless legs syndrome) 08/29/2011 Vasovagal syncope Vitamin D deficiency Social History Tobacco Use Smoking status: Former Current packs/day: 0.00 Average packs/day: 1 pack/day for 30.0 years (30.0 ttl pk-yrs) Types: Cigarettes Start date: 06/02/1987 Quit date: 06/02/2017 Years since quittin.7 Smokeless tobacco: Never Vaping Use Vaping status: Never Used Substance Use Topics Alcohol use: No Drug use: No Comment: IV DRUG USER ASSESSMENT/PLAN: 1. Rheumatoid arthritis involving multiple sites with positive rheumatoid factor (HCC) - ICD9: 714.0, ICD10: M05.79 (primary diagnosis) 2. HNP (herniated nucleus pulposus), lumbar - ICD9: 722.10, ICD10: M51.26 3. Chronic left-sided low back pain with left-sided sciatica - ICD9: 724.2, 724.3, 338.29, ICD10: M54.42, G89.29 4. Gait difficulty - ICD9: 781.2, ICD10: R26.9 She has a 15-year-old hospital bed and mattress that she has been using daily due to her severe rheumatoid arthritis. She is unable to use a normal bed she cannot get in and out of bed and has been using the hospital bed. She notes the frame of her hospital bed is still in good shape but she needs the mattress replaced as it has become worn out and caved in especially the central portion of themattress. Luana Tripathi APRN.CNS Medical Decision Making: Problems: Moderate: 2+ stable chronic illnesses Risk: Low: Low risk from testing/treatment Medical Decision Making Level: 3 - Low documented [facility] [place] Telephone encounter Note * Telephone Encounter - Aziza Hernandez MA - 02/11/2024 8:04 AM EDT Images from the original note were not included. Most recent Rheumatology visit: 02/04/2024 (with Deloris Juarez) Last Bone Density on file: 12/14/2022 Rheumatology Care Team: None on file Recent Office Visits - This Specialty 02/04/2024 Rheumatoid arthritis involving multiple sites with positive rheumatoid factor (HCC) Rheumatology Deloris Juarez APRN.ALMOND ROASTER 11/29/2021 Inflammatory arthritis Rheumatology Deloris Juarez APRN.ALMOND ROASTER 01/12/2019 Rheumatoid arthritis involving multiple sites with positive rheumatoid factor (HCC) Rheumatology Deloris Juarez APRN.ALMOND ROASTER Upcoming Rheumatology Appointments - Next 365 Days No appointments to display CBC: Latest Ref Rng & Units 11/21/2023 02/04/2024 CBC WBC 3.70 - 11.00 k/uL 7.64 6.54 Hemoglobin 11.5 - 15.5 g/dL 14.3 15.7 Hematocrit 36.0 - 46.0 % 44.2 45.7 Platelet Count 150 - 400 k/uL 236 230 Vitamin D: Latest Ref Rng & Units 11/21/2023 02/04/2024 Vitamin D Vitamin D 25 Hydroxy 31.0 - 80.0 ng/mL 43.0 36.6 LFT: Latest Ref Rng & Units 01/06/2024 02/04/2024 CMP Sodium 136 - 144 mmol/L 142 Potassium 3.7 - 5.1 mmol/L 4.2 3.6 Chloride 98 - 107 mmol/L 103 CO2 22 - 30 mmol/L 28 Glucose 74 - 99 mg/dL 91 BUN 7 - 21 mg/dL 6 Creatinine 0.58 - 0.96 mg/dL 0.70 Calcium 8.5 - 10.2 mg/dL 10.7 AST 13 - 35 U/L 37 ALT 7 - 38 U/L 22 Alkaline Phosphatase 34 - 123 U/L 80 Hepatic Function: Creatinine: Latest Ref Rng & Units 11/21/2023 02/04/2024 Creatinine Creatinine 0.58 - 0.96 mg/dL 0.84 0.70 ESR/CRP: Latest Ref Rng & Units 11/30/2021 02/04/2024 ESR, WSR WSR 0 - 20 mm/hr 9 5 Latest Ref Rng & Units 11/30/2021 02/04/2024 CRP CRP <0.9 mg/dL 2.0 <0.3 Uric Acid: None on file in the last 6 months Open Standing (Multiple Instance) Lab Orders None Open Future (Single Instance) Lab Orders Expected Expires Ordered COMPREHENSIVE METABOLIC PANEL [SQCMP] 03/15/24 06/14/24 11/29/23 Auth. provider: Greg Abrams MD Assoc. diagnoses: Hyperkalemia COMPLETE BLOOD COUNT AND DIFFERENTIAL [SQCBCDIF] 03/15/24 06/14/24 11/29/23 Auth. provider: Greg Abrams MD Assoc. diagnoses: Macrocytosis without anemia FOLATE, SERUM [SQSERFOL] 03/15/24 06/14/24 11/29/23 Auth. provider: Greg Abrams MD Assoc. diagnoses: Macrocytosis without anemia VITAMIN B12 [SQB12] 03/15/24 06/14/24 11/29/23 Auth. provider: Greg Abrams MD Assoc. diagnoses: Macrocytosis without anemia [facility] Miscellaneous Notes* Telephone Encounter - Aziza Hernandez MA - 02/11/2024 8:04 AM EDT Images from the original note were not included. Most recent Rheumatology visit: 02/04/2024 (with Deloris Juarez) Last Bone Density on file: 12/14/2022 Rheumatology Care Team: None on file Recent Office Visits - This Specialty 02/04/2024 Rheumatoid arthritis involving multiple sites with positive rheumatoid factor (HCC) Rheumatology Deloris Juarez, LEARNING DISABILITIES TEACHER.[employer] ROASTER 11/29/2021 Inflammatory arthritis Rheumatology Deloris Juarez, LEARNING DISABILITIES TEACHER.[employer]D ROASTER 01/12/2019 Rheumatoid arthritis involving multiple sites with positive rheumatoid factor (HCC) Rheumatology Deloris Juarez, LEARNING DISABILITIES TEACHER.ALMOND ROASTER Upcoming Rheumatology Appointments - Next 365 Days No appointments to display CBC: Latest Ref Rng & Units 11/21/2023 02/04/2024 CBC WBC 3.70 - 11.00 k/uL 7.64 6.54 Hemoglobin 11.5 - 15.5 g/dL 14.3 15.7 Hematocrit 36.0 - 46.0 % 44.2 45.7 Platelet Count 150 - 400 k/uL 236 230 Vitamin D: Latest Ref Rng & Units 11/21/2023 02/04/2024 Vitamin D Vitamin D 25 Hydroxy 31.0 - 80.0 ng/mL 43.0 36.6 LFT: Latest Ref Rng & Units 01/06/2024 02/04/2024 CMP Sodium 136 - 144 mmol/L 142 Potassium 3.7 - 5.1 mmol/L 4.2 3.6 Chloride 98 - 107 mmol/L 103 CO2 22 - 30 mmol/L 28 Glucose 74 - 99 mg/dL 91 BUN 7 - 21 mg/dL 6 Creatinine 0.58 - 0.96 mg/dL 0.70 Calcium 8.5 - 10.2 mg/dL 10.7 AST 13 - 35 U/L 37 ALT 7 - 38 U/L 22 Alkaline Phosphatase 34 - 123 U/L 80 Hepatic Function: Creatinine: Latest Ref Rng & Units 11/21/2023 02/04/2024 Creatinine Creatinine 0.58 - 0.96 mg/dL 0.84 0.70 ESR/CRP: Latest Ref Rng & Units 11/30/2021 02/04/2024 ESR, WSR WSR 0 - 20 mm/hr 9 5 Latest Ref Rng & Units 11/30/2021 02/04/2024 CRP CRP <0.9 mg/dL 2.0 <0.3 Uric Acid: None on file in the last 6 months Open Standing (Multiple Instance) Lab Orders None Open Future (Single Instance) Lab Orders Expected Expires Ordered COMPREHENSIVE METABOLIC PANEL [SQCMP] 03/15/24 06/14/24 11/29/23 Auth. provider: Greg Abrams MD Assoc. diagnoses: Hyperkalemia COMPLETE BLOOD COUNT AND DIFFERENTIAL [SQCBCDIF] 03/15/24 06/14/24 11/29/23 Auth. provider: Greg Abrams MD Assoc. diagnoses: Macrocytosis without anemia FOLATE, SERUM [SQSERFOL] 03/15/24 06/14/24 11/29/23 Auth. provider: Greg Abrams MD Assoc. diagnoses: Macrocytosis without anemia VITAMIN B12 [SQB12] 03/15/24 06/14/24 11/29/23 Auth. provider: Greg Abrams MD Assoc. diagnoses: Macrocytosis without anemia documented in this encounter[facility] [place] Telephone encounter Note * Telephone Encounter - Nicky Navarro LPN - 02/10/2024 12:53 PM EDT Prescription Refill Information The patient has been identified by name and date of : Yes Caregiver verified no other encounters exist for this prescription request: Yes Caregiver confirmed with patient/requestor that no other refills are due, in the near future, with this provider at this time: Yes The last office visit in the department: 10/30/23 Does the patient have a future office visit with this provider/department: Yes 02/13/24 Requested Prescriptions Pending Prescriptions Disp Refills rizatriptan (MAXALT) 10 mg tablet 24 tablet 2 Sig: Take 1 tablet by mouth at onset of headache. May repeat after 1hr Nicky Navarro LPN February 10, 2024 12:53 PM [place] [id number] Miscellaneous Notes* Telephone Encounter - Nicky Navarro LPN - 02/10/2024 12:53 PM EDT Prescription Refill Information The patient has been identified by name and date of : Yes Caregiver verified no other encounters exist for this prescription request: Yes Caregiver confirmed with patient/requestor that no other refills are due, in the near future, with this provider at this time: Yes The last office visit in the department: 10/30/23 Does the patient have a future office visit with this provider/department: Yes 02/13/24 Requested Prescriptions Pending Prescriptions Disp Refills rizatriptan (MAXALT) 10 mg tablet 24 tablet 2 Sig: Take 1 tablet by mouth at onset of headache. May repeat after 1hr Nicky Navarro LPN February 10, 2024 12:53 PM * Telephone Encounter - Kathleen Conley - 02/10/2024 11:13 AM EDT David is calling Greg Abrams MD today requesting a refill on migraine medication. Unable to locate under current medication list. Please advise [facility] documented in this encounter[facility] [place] Telephone encounter Note * Telephone Encounter - Kathleen Conley - 02/10/2024 11:13 AM EDT David is calling Greg Abrams MD today requesting a refill on migraine medication. Unable to locate under current medication list. Please advise [facility] Telephone encounter Note* Telephone Encounter - Sarah (Pharmacy [facility] Keating - 02/05/2024 9:54 AM EDT Images from the original note were not included. Good morning Deloris, Additional info needed, please see below. [facility] Miscellaneous Notes* Telephone Encounter - Sarah (Pharmacy Srinivas)Pam - 02/05/2024 9:54 AM EDT Images from the original note were not included. Good morning Deloris, Additional info needed, please see below. documented in this encounterSelect [facility] [place]-2024 Instructions* Patient Instructions* Deloris Juarez APRN.CNP - 02/04/2024 11:49 AM EDT Ok with Rheumatology to use Consentyx instead Orenica. documented in this encounterSelect [facility] [place]24 History of Present illness Narrative* Deloris Juarez APRN.CNP - 02/04/2024 11:21 AM EDT Images from the original note were not included. Rheumatology FOLLOW UP VISIT Referring Provider: Deloris Juarez Date of Service: 02/04/2024 Gender: female Ethnicity: White Age: [age] year old Chief Complaint: Follow Up (RA ) Last Rheumatology visit: 02/04/2024 (with Deloris Juarez) David Berg is a 68 year old White female who presents on 02/04/2024 for in person visit for evaluation of Follow Up (RA ). She is currently taking abatacept. David is RF positive - 49 (06/23/2012) and CCP negative - 17 (06/23/2012). Her most recent BOB was negative (08/23/1999). INTERVAL HISTORY Here for follow up for Osteoporosis and RA. She is going to have epidural injeciton for DDD of her spine, prior compression fx. Has sig pain of her back, limited mobility She has new psoriasis of her hands, seeing derm, considering starting consentyx but has not startedyet. Would be acceptable to start on biologic again She also need bone therapy for osteoporosis. Has sig jnt pain and stiffness today Patient-Entered Data RAPID 3 [place] Activities of Daily Living No Data Dress self? - Get in and out of bed? - Walk outdoors? - Wash and dry body? - Get in and out of car? - RAPID 3 Disease Activity Weighed Score Levels: 0 - 1: Near Remission 1.3 - 2.0: Low Severity 2.3 - 4.0: Moderate Severity 4.3 - 10.0: High Severity 05/18/2016 12/11/2017 01/12/2019 RAPID-3 Weighed Score RAPID 3 Weighed Score 7.6 5.9 5.4 PROMIS Assessments 11/15/2016 12/11/2017 01/12/2019 PROMIS Assessments Physical Health Percentile 6.55 7 3.92 3.92 Mental Health Percentile 3.07 3 18.67 5.26 Pain Score 7 2 7 6 PROMIS Physical Function T-Score 33.62 PROMIS Functional Status Percentile 5.05 Multiple values from one day are sorted in reverse-chronological order Impression Diagnoses: (M05.79) Rheumatoid arthritis involving multiple sites with positive rheumatoid factor (HCC) (primary encounter diagnosis) (M81.0) Post-menopausal osteoporosis Blood TB: Negative (02/04/2024) Hepatitis B Antibody test: Negative (02/04/2024) Hepatitis B Antibody test: Positive (02/04/2024) At today's visit, the patient's disease appears to be active Plan (M05.79) Rheumatoid arthritis involving multiple sites with positive rheumatoid factor (HCC) (primary encounter diagnosis) Comment: Not doing well She has sig psoriasis and has jnt pain / swelling She has not been on a biologic in sometime, difficult time with insurance We can submit new PA now Check labs Needs more routine follow up Plan: COMPLETE BLOOD COUNT, COMPREHENSIVE METABOLIC PANEL, SEDIMENTATION RATE, WESTERGREN, C-REACTIVE PROTEIN, BLOOD TB SCREEN, HEP REMOTE PANEL BL (M81.0) Age-related osteoporosis without current pathological fracture Comment: Discussed vert fx, from traumatic fall, Declining bone mass in November 2022 Failed oral bisphosphonate. She is taking vitamin D, had high calcium, supplemental calcium was stopped. Getting calcium via diet. I highly recommend prolia, we an submit for prolia again now Return in about 6 months (around 08/04/2024). I spent a total of 20 minutes on the date of the service which included preparing to see the patient, [id number] patient care, completing clinical documentation, obtaining and/or reviewing separately obtained history, performing a medically appropriate examination, and counseling and educating the patient/family/caregiver. Deloris Juarez APRN.ALMOND ROASTER cc: PCP: Lizbeth Pool [address] [place] [address] Subjective HISTORY OF PRESENT ILLNESS Rheumatology Follow up: Past Prior History: Hx of Hep C interferon/ribavarin/RA Past treatment: SSZ and Enbrel. Per patient Enbrel has helped tremendously but lost efficacy after about 2 1/2 years RF positive, CCP negative, Hep C viral load negative. No cryos, no abnormal proteins. Orencia resumed 11/2009 - stopped 05/2011- lung infections- emphysema. RTX 01/2012, 08/2012. 02/2013- not helpful Resume orencia 07/2013. stopped again 10/2014 (self), resumed orencia 2015- current Repeat quantiferon was negative and she had evaluation with ID - recommended treatment for LTBI- she took for 4 months only. states that was her completed course. Cleared by ID for Orenica. + ETOH induced pancreatitis Osteoporosis: She fell off a ladder 18 feet in July 2021- L1, required kyphoplasty, torn ligament of ankle. then fractured her wrist several weeks later, again from a fall. Prior has used fosamax [id number] with ? compliance. DXA has shown Osteopenia. 09/2018. DXA 11/2022-> There has been a 3.5% decrease in left femoral neck bone density and a 3.7% decrease in total left hip bone mineral density since the previous study in 2019. INTERVAL HISTORY Here for follow up for Osteoporosis and RA. She is going to have epidural injeciton for DDD of her spine, prior compression fx. Has sig pain of her back, limited mobility She has new psoriasis of her hands, seeing derm, considering starting consentyx but has not startedyet. Would be acceptable to start on biologic again She also need bone therapy for osteoporosis. Has sig jnt pain and stiffness today Disease History PAIN EVALUATION No data found in the last 1 encounters. Objective Treatment History Relevant Previous Investigations Latest Ref Rng & Units 02/27/2022 05/02/2022 11/21/2023 02/04/2024 CBC WBC 3.70 - 11.00 k/uL 7.34 7.49 7.64 6.54 Hemoglobin 11.5 - 15.5 g/dL 14.0 14.4 14.3 15.7 Hematocrit 36.0 - 46.0 % 45.8 44.4 44.2 45.7 Platelet Count 150 - 400 k/uL 323 247 236 230 Abs Neut (ANC) 1.45 - 7.50 k/uL 3.27 3.12 Abs Lymph 1.00 - 4.00 k/uL 3.24 3.80 Latest Ref Rng & Units 05/27/2023 11/21/2023 01/06/2024 02/04/2024 CMP Sodium 136 - 144 mmol/L 139 142 142 Potassium 3.7 - 5.1 mmol/L 3.4 5.2 4.2 3.6 Chloride 98 - 107 mmol/L 102 105 103 CO2 22 - 30 mmol/L 24 24 28 Glucose 74 - 99 mg/dL 106 97 91 BUN 7 - 21 mg/dL 12 13 6 Creatinine 0.58 - 0.96 mg/dL 0.84 0.84 0.70 Calcium 8.5 - 10.2 mg/dL 10.8 9.9 10.7 AST 13 - 35 U/L 102 34 37 ALT 7 - 38 U/L 68 28 22 Alkaline Phosphatase 34 - 123 U/L 80 73 80 Latest Ref Rng & Units 08/23/1999 Uric Acid Uric Acid 2.0 - 7.0 mg/dL 4.8 Latest Ref Rng & Units 05/12/2019 12/03/2019 11/30/2021 02/04/2024 ESR, WSR WSR 0 - 20 mm/hr 8 2 9 5 Latest Ref Rng & Units 12/03/2019 08/06/2020 11/30/2021 02/04/2024 CRP CRP <0.9 mg/dL 0.1 3.1 2.0 <0.3 Latest Ref Rng & Units 08/23/1999 02/24/2009 09/12/2011 C3, C4 C3 68 - 260 mg/dL 87 C4 12 - 46 mg/dL 12 13 23 Latest Ref Rng & Units 08/23/1999 02/24/2009 06/23/2012 RF and CCP Rheumatoid Factor <20 IU/mL 1240 61 49 CCP Antibody, IgG <20 Units <15 17 Latest Ref Rng & Units 02/24/2009 12/07/2011 02/13/2016 02/04/2024 Hepatitis Screen Hep B Core Ab, Total Negative Negative Negative Negative Negative Hep B Surf Ab Qual Negative Negative Negative Negative Hep C Antibody IA Negative Positive Positive Positive Positive Hep B Surface Ag Negative Negative HBsAg Negative Negative Negative Negative 04/10/2018 02/23/2019 11/30/2021 02/04/2024 TB Screen TB Interpretation No evidence of current or previous infection with Mycobacterium tuberculosis. Result is consistent with current or previous infection with Mycobacterium tuberculosis. This result is indeterminate for Mycobacterium tuberculosis complex antigen responsiveness. Specimens from immunocompromised patients, those <5 years of age, and those with a known recent exposuremay fall under this category. Please correlate with clinical picture and other alternative assessments. Infection with M. tuberculosis complex is unlikely. If latent tuberculosis infection is highly suspected, a negative result does not rule out the infection. Specimens from immunocompromised patients and those <5 years of age may show false negative results. In case of a contact investigation, please repeat 8-12 weeks after a known exposure. TB Result Negative Positive Indeterminate Negative Latest Ref Rng & Units 08/04/2020 01/06/2022 01/15/2022 01/17/2022 Antibodies PT Sec 9.7 - 13.0 sec 10.9 10.8 11.3 10.6 PT INR 0.9 - 1.3 1.1 1.0 1.1 1.0 Latest Ref Rng & Units 09/12/2011 ANCA Myeloperoxidase Antibody (MPO) 0 - 20 Units Test not performed on samples negative by immunofluorescence. Proteinase-3 Antibody 0 - 20 Units Test not performed on samples negative by immunofluorescence. P-ANCA Fluorescence NEGAT Negative C-ANCA Fluorescence NEGAT Negative Myeloperoxidase Antibody (MPO) 0 - 20 Units Test not performed on samples negative by immunofluorescence. Proteinase-3 Antibody 0 - 20 Units Test not performed on samples negative by immunofluorescence. Latest Ref Rng & Units 10/22/2012 09/08/2014 09/21/2021 10/30/2023 Urinalysis Protein, Urine Negative mg/dL neg Negative PROTEIN UA (POCT) Negative mg/dL Negative Negative RBC, Urine 0 - 3 /HPF 0-3 Imaging / Studies Last XR Hand/Finger - Impression Only XR HAND GENERAL 3V PA/LAT/OBL RIGHT Exam End: 10/04/2021 8:11 AM (Final result) Impression: IMPRESSION: No hand fracture or dislocation. Fringing Machine Operator: ALEXEI Transcribe Date/Time: Oct 04 2021 8:22A Dictated by : NELDA ABREU MD... Last MRI Hand - Impression Only No resulted procedures found. Last XR Chest - Impression Only XR CHEST 2V FRONTAL/LAT Exam End: 03/19/2022 1:08 PM (Final result) Impression: IMPRESSION: No acute radiographic abnormality. ... Last XR Cervical Spine - Impression Only XR CERV OTHER 4V AP/LAT/OBL Collected: 07/29/2017 4:26 PM (Final result) Impression: IMPRESSION: LIMITED EXAM WITH STABLE POSTSURGICAL AND DEGENERATIVE CHANGE Fringing Machine Operator: ALEXEI Transcribe Date/Time: Jul 29 2017 4:59P Dictated by : HILDA PRINCE MD... Review of Systems Review of Systems CONSTITUTION: Negative for: Fever and Recent weight change HEENT: Negative for: Mouth sores and Dry mouth RESPIRATORY: Positive for: Cough GASTROINTESTINAL: Negative for: Diarrhea and Heartburn MUSCULOSKELETAL: Positive for: Arthralgias, Joint swelling and Morning Joint Stiffness Negative for: Myalgias and Muscle weakness NEUROLOGICAL: Negative for: Headaches and Numbness SKIN: Negative for: Rash and Skin changes EYES: Negative for: Eye pain, Eye redness and Eye dryness CARDIOVASCULAR: Negative for: Chest pain and Leg swelling GENITOURINARY: Negative for: Dysuria and Hematuria HEMATOLOGIC/LYMPHATIC: All other reviewed and negative other than HPI. Problem List ACTIVE PROBLEM LIST Anxiety State Generalized Convulsive Epilepsy (Hcc) Other Emphysema (Hcc) Epigastric Pain Low Back Pain Ddd (Degenerative Disc Disease), Cervical Nerve Sheath Tumor Rls (Restless Legs Syndrome) Migraine Headache Falls Palpitations Positive Ppd Insomnia Cervicalgia Left-Sided Low Back Pain With Left-Sided Sciatica Hnp (Herniated Nucleus Pulposus), Lumbar Rheumatoid Arthritis Involving Multiple Sites With Positive Rheumatoid Factor (Hcc) Dry Eye Syndrome Hyperlipidemia Pain in Toe of Left Foot Prediabetes Constipation, Unspecified Left Sided Colitis Without Complications (Hcc) Syncope Orthostatic Hypotension Steatorrhea, Pancreatic Pancreas Divisum Severe Protein-Calorie Malnutrition (Hcc) Abscess Abscess of Abdominal Cavity (Hcc) Other Chest Pain Nausea & Vomiting Bilateral Carotid Artery Stenosis Past Medical History PAST MEDICAL HISTORY Diagnosis Date Acute hepatitis C without mention of hepatic coma(070.51) negative RNA in 2016 Acute left ankle pain 12/18/2017 Acute pneumonia 01/15/2022 Anxiety state 05/29/2005 Dr. 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 Not on medications, not seeing neurology. 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 Choi-ID Prediabetes Psoriasis Rheumatoid arthritis involving multiple sites with positive rheumatoid factor (HCC) 12/13/[address] Bowden RLS (restless legs syndrome) 08/29/2011 Vasovagal syncope Vitamin D deficiency Past Surgical History PAST SURGICAL HISTORY Procedure Laterality Date BACK SURGERY HX 09/27/2022 CHOLECYSTECTOMY [id number] lap COCHLEAR IMPLANT HX COLONOSCOPY FLX DX W/COLLJ SPEC WHEN PFRMD 10/11/2009 Colonoscopy COLONOSCOPY FLX DX W/COLLJ SPEC WHEN PFRMD 09/30/2018 Colonoscopy EGD EUS N/A 04/06/2020 diffusely dilated PD, suspected pancreas divisum, mild duodenitis ESOPHAGOGASTRODUODENOSCOPY TRANSORAL DIAGNOSTIC 09/30/2018 EGD IR VASCULAR ACCESS TEAM PICC INSERTION RADIO 02/08/2022 OPEN TREATMENT NASAL FRACTURE UNCOMPLICATED x2 no breathing problems PAST SURGICAL HISTORY OF X 2 PAST SURGICAL HISTORY OF FACIAL RECONSTRUCTION PAST SURGICAL HISTORY OF 1997 BILAT. SHOULDER SURGERY PAST SURGICAL HISTORY OF 1994 CERVICAL SPINE FUSION C4, C5 (had cervical fx x3 - even after repair) PAST SURGICAL HISTORY OF 1969 LEFT EAR CHOLESTEATOMA PAST SURGICAL HISTORY OF CLEFT LIP PAST SURGICAL HISTORY OF 02/2006 lasik PAST SURGICAL HISTORY OF 2004 bladder sling PAST SURGICAL HISTORY OF 08/09/2020 Upper endoscopy, percutaneous endoscopic gastrostomy (PEG) tube placed REMV CATARACT EXTRACAP,INSERT LENS Bilateral TRACHEOSTOMY EMERGENCY PROCEDURE TRANSTRACHEAL age 3 or 4 during surgery; lost airway Family History FAMILY HISTORY Problem Relation Age of Onset Stroke Mother Hypertension Mother Diabetes Father Cancer Father melanoma Kidney transplant Father Thyroid Cancer Sister Breast Cancer Sister Thyroid Cancer Sister Breast Cancer Sister Prostate Cancer Brother Cancer Brother 21 testicular Breast Cancer Maternal Aunt Cancer Other X-ftzfjs-[id number] Social History Social History Tobacco Use Smoking status: Former Current packs/day: 0.00 Average packs/day: 1 pack/day for 30.0 years (30.0 ttl pk-yrs) Types: Cigarettes Start date: 06/02/1987 Quit date: 06/02/2017 Years since quittin.7 Smokeless tobacco: Never Vaping Use Vaping status: Never Used Substance Use Topics Alcohol use: No Drug use: No Comment: IV DRUG USER Medications Current Outpatient Medications Medication Sig rizatriptan (MAXALT) 10 mg tablet Take 1 tablet by mouth at onset of headache. May repeat after 1hr ORENCIA 125 mg/mL injection INJECT THE CONTENTS OF 1 SYRINGE (125 MG) UNDER THE SKIN ONCE EACH WEEK cyanocobalamin (VITAMIN B-12) 1,000 mcg tab Take 1 tablet by mouth once daily. ergocalciferol 50,000 unit capsule (VITAMIN D2, DRISDOL) Take 1 capsule by mouth one time a week. magnesium oxide (MAG-OX) 400 mg (241.3 mg magnesium) tablet Take 1 tablet by mouth once daily. omega-3 fatty acids 1,000 mg cap Take 2 capsules by mouth once daily. ibjtxj-bfysbhbb-rrkymzc (CREON) 6,000-19,000 -30,000 unit delayed release capsule Take 2 capsules by mouth with meals and at bedtime. polyethylene glycol 3350 (MIRALAX) 17 gram/dose powder Take 17 g by mouth two times a day as neededfor constipation. folic acid 1 mg tablet Take 1 tablet by mouth once daily. Take with breakfast [employer] Theraworx topical foam for muscle cramp and spasm. Apply 1 to 2 pumps to legs or hands as needed for cramping as directed per package directions. OTEZLA 30 mg tablet Take 30 mg by mouth once daily. albuterol HFA (VENTOLIN HFA) 90 mcg/actuation inhaler Inhale 2 Puffs as instructed every 4 hours asneeded for wheezing/shortness of breath. rOPINIRole (REQUIP) 1 mg tablet take 1 tablet by mouth once daily iv contrast (will be provided with radiology test) CT PANCREAS W Inject, intravenously, once for 1 dose.No IV access, insert saline lock prior to the beginning of sedation, infusion, injection of imaging exam. Discontinue saline lock post exam. If Pt. has a central line or IVAD, may access for administration according to line specific nursing protocol. Once exam is complete flush line and de-access according to line specific nursing protocol in the CT contrast administration guidelines link. (Patient not taking: Reported on 10/30/2023) dicyclomine (BENTYL) 10 mg capsule Take 1 capsule by mouth four times daily as needed. For abdominal pain. omega 6-kix-ryf-fish oil 1,000 mg (250 mg-750 mg)/5 mL liqd Take 1,000 mg by mouth once daily. budesonide-formoterol (SYMBICORT) 160-4.5 mcg/actuation inhaler Inhale 2 Puffs as instructed twice daily. nicotine (NICOTROL) 10 mg inhaler Inhale 1 Puff as instructed as needed. Nebulizers 1 Each once daily. Blood Pressure Monitor (BLOOD PRESSURE KIT) 1 Each once daily as needed. Dx: recurrent syncope R55 ALPRAZolam (XANAX) 1 mg tablet Take 1 mg by mouth twice daily. QUEtiapine (SEROQUEL) 100 mg tablet Take 2 tablets by mouth daily at bedtime. Current Facility-Administered Medications Medication Dose Route Frequency denosumab 60 mg injection (PROLIA) 60 mg SUBCUTANEOUS ONCE (AMB - Up to 30 Days) Adult Home Parenteral Nutrition 3:1 INTRAVENOUS DAILY Physical Exam BP 143/87 Pulse 114 Wt 123 lb 3.8 oz (55.9kg) Physical Exam Vitals and nursing note reviewed. Constitutional: Appearance: Normal appearance. Eyes: Conjunctiva/sclera: Conjunctivae normal. Cardiovascular: Rate and Rhythm: Normal rate and regular rhythm. Heart sounds: Normal heart sounds. Pulmonary: Effort: Pulmonary effort is normal. Breath sounds: Wheezing present. Abdominal: General: There is no distension. Tenderness: There is no abdominal tenderness. Musculoskeletal: General: Swelling and tenderness present. No deformity. Normal range of motion. Cervical back: Normal range of motion and neck supple. Skin: General: Skin is warm and dry. Findings: Bruising and rash present. Comments: + psoriasis hands, scalp Neurological: General: No focal deficit present. Mental Status: She is alert and oriented to person, place, and time. Gait: Gait is intact. Joint Exam 02/04/2024 Right Left Glenohumeral Tender Tender Wrist Tender Tender MCP 1 Tender Tender MCP 2 Tender Tender MCP 3 Tender Tender MCP 4 Tender Tender The following joints were examined and normal: Left Elbow, Right Elbow, Left MCP 5, Right MCP 5, Left IP (thumb), Right IP (thumb), Left PIP 2 (finger), Right PIP 2 (finger), Left PIP 3 (finger), Right PIP 3 (finger), Left PIP 4 (finger), Right PIP 4 (finger), Left PIP 5 (finger), Right PIP 5 (finger), Left Knee, Right Knee Joint Exam Data (across time) 11/29/2021 02/04/2024 Joint Exam Total Tender 4 12 Total Swollen 0 0 CRP (mg/L) 20 Medical Decision Making: Problems: Moderate: 1+ chronic illnesses with change Data: Unique test result(s) reviewed: 3+ Unique test(s) ordered: 3+ Risk: Moderate: Moderate risk from testing/treatment and Drug management Medical Decision Making Level: 4 - Moderate documented [facility] [place] Tele[facility] encounter Note * Telephone Encounter - Cat Cam LPN - 01/29/2024 4:20 PM EDT Orders faxed to number given. Cat Cam LPN [facility]2024 Miscellaneous Notes* Telephone Encounter - Cat Cam LPN - 01/29/2024 4:20 PM EDT Orders faxed to number given. Cat Cam LPN * Telephone Encounter - Delaney Mora APRN.CNP - 01/29/2024 3:40 PM EDT Order placed, please fax. * Telephone Encounter - Lexi Main LPN - 01/23/2024 4:43 PM EDT [facility] calling patient has hospital bed that is 10 years old. Her mattress has large dip in it. Asking if PCP could order new hospital bed mattress and fax order to [facility] fax number is [phone]. Would also need office notes to support need for hospital bed and new mattress. Patient next appt is not until mid March with PCP. Pending order needs diagnosis. Please advise documented in this encounter[facility] [place] Telephone encounter Note * Telephone Encounter - Delaney Mora APRN.CNP - 01/29/2024 3:40 PM EDT Order placed, please fax. [facility]10-10-2024 Telephone encounter Note* Telephone Encounter - Lexi Main LPN - 01/23/2024 4:43 PM EDT Lynn from [facility] calling patient has hospital bed that is 10 years old. Her mattress has large dip in it. Asking if PCP could order new hospital bed mattress and fax order to [facility] fax number is [phone]. Would also need office notes to support need for hospital bed and new mattress. Patient next appt is not until mid March with PCP. Pending order needs diagnosis. Please advise [facility]10-07-2024 Telephone encounter Note* Telephone Encounter - LaneMagui - 01/20/2024 8:19 AM EDT Images from the original note were not included. Most recent Rheumatology visit: 11/29/2021 (with Deloris Juarez) Last Bone Density on file: 12/14/2022 Rheumatology Care Team: None on file Recent Office Visits - This Specialty 11/29/2021 Inflammatory arthritis Rheumatology Deloris Juarez APRN.ALMOND ROASTER 01/12/2019 Rheumatoid arthritis involving multiple sites with positive rheumatoid factor (HCC) Rheumatology Deloris Juarez APRN.ALMOND ROASTER 07/03/2018 Rheumatoid arthritis involving multiple sites with positive rheumatoid factor (HCC) Rheumatology Mary Ellen Glasgow (Capper Machine Operator)(Hist) Upcoming Rheumatology Appointments - Next 365 Days Visit Type Date Time Department [facility] 02/04/2024 11:30 AM [facility] CBC: Latest Ref Rng & Units 05/02/2022 11/21/2023 CBC WBC 3.70 - 11.00 k/uL 7.49 7.64 Hemoglobin 11.5 - 15.5 g/dL 14.4 14.3 Hematocrit 36.0 - 46.0 % 44.4 44.2 Platelet Count 150 - 400 k/uL 247 236 Abs Neut (ANC) 1.45 - 7.50 k/uL 3.12 Abs Lymph 1.00 - 4.00 k/uL 3.80 Vitamin D: Latest Ref Rng & Units 05/02/2022 11/21/2023 Vitamin D Vitamin D 25 Hydroxy 31.0 - 80.0 ng/mL 27.0 43.0 LFT: Latest Ref Rng & Units 11/21/2023 01/06/2024 CMP Sodium 136 - 144 mmol/L 142 Potassium 3.7 - 5.1 mmol/L 5.2 4.2 Chloride 98 - 107 mmol/L 105 CO2 22 - 30 mmol/L 24 Glucose 74 - 99 mg/dL 97 BUN 7 - 21 mg/dL 13 Creatinine 0.58 - 0.96 mg/dL 0.84 Calcium 8.5 - 10.2 mg/dL 9.9 AST 13 - 35 U/L 34 ALT 7 - 38 U/L 28 Alkaline Phosphatase 34 - 123 U/L 73 Hepatic Function: Creatinine: Latest Ref Rng & Units 05/27/2023 11/21/2023 Creatinine Creatinine 0.58 - 0.96 mg/dL 0.84 0.84 ESR/CRP: None on file in the last 6 months Uric Acid: None on file in the last 6 months Open Standing (Multiple Instance) Lab Orders None Open Future (Single Instance) Lab Orders Expected Expires Ordered COMPREHENSIVE METABOLIC PANEL [SQCMP] 03/15/24 06/14/24 11/29/23 Auth. provider: Greg Abrams MD Assoc. diagnoses: Hyperkalemia COMPLETE BLOOD COUNT AND DIFFERENTIAL [SQCBCDIF] 03/15/24 06/14/24 11/29/23 Auth. provider: Greg Abrams MD Assoc. diagnoses: Macrocytosis without anemia FOLATE, SERUM [SQSERFOL] 03/15/24 06/14/24 11/29/23 Auth. provider: Greg Abrams MD Assoc. diagnoses: Macrocytosis without anemia VITAMIN B12 [SQB12] 03/15/24 06/14/24 11/29/23 Auth. provider: Greg Abrams MD Assoc. diagnoses: Macrocytosis without anemia [facility]10-07-2024 Miscellaneous Notes* Telephone Encounter - Magui Sherman - 01/20/2024 8:19 AM EDT Images from the original note were not included. Most recent Rheumatology visit: 11/29/2021 (with Deloris Juarez) Last Bone Density on file: 12/14/2022 Rheumatology Care Team: None on file Recent Office Visits - This Specialty 11/29/2021 Inflammatory arthritis Rheumatology Deloris Juarez APRN.ALMOND ROASTER 01/12/2019 Rheumatoid arthritis involving multiple sites with positive rheumatoid factor (HCC) Rheumatology Deloris Juarez APRN.EDMUND 07/03/2018 Rheumatoid arthritis involving multiple sites with positive rheumatoid factor (HCC) Rheumatology Mary Ellen Glasgow (Capper Machine Operator)(Hist) Upcoming Rheumatology Appointments - Next 365 Days Visit Type Date Time Department [facility] 02/04/2024 11:30 AM [facility] CBC: Latest Ref Rng & Units 05/02/2022 11/21/2023 CBC WBC 3.70 - 11.00 k/uL 7.49 7.64 Hemoglobin 11.5 - 15.5 g/dL 14.4 14.3 Hematocrit 36.0 - 46.0 % 44.4 44.2 Platelet Count 150 - 400 k/uL 247 236 Abs Neut (ANC) 1.45 - 7.50 k/uL 3.12 Abs Lymph 1.00 - 4.00 k/uL 3.80 Vitamin D: Latest Ref Rng & Units 05/02/2022 11/21/2023 Vitamin D Vitamin D 25 Hydroxy 31.0 - 80.0 ng/mL 27.0 43.0 LFT: Latest Ref Rng & Units 11/21/2023 01/06/2024 CMP Sodium 136 - 144 mmol/L 142 Potassium 3.7 - 5.1 mmol/L 5.2 4.2 Chloride 98 - 107 mmol/L 105 CO2 22 - 30 mmol/L 24 Glucose 74 - 99 mg/dL 97 BUN 7 - 21 mg/dL 13 Creatinine 0.58 - 0.96 mg/dL 0.84 Calcium 8.5 - 10.2 mg/dL 9.9 AST 13 - 35 U/L 34 ALT 7 - 38 U/L 28 Alkaline Phosphatase 34 - 123 U/L 73 Hepatic Function: Creatinine: Latest Ref Rng & Units 05/27/2023 11/21/2023 Creatinine Creatinine 0.58 - 0.96 mg/dL 0.84 0.84 ESR/CRP: None on file in the last 6 months Uric Acid: None on file in the last 6 months Open Standing (Multiple Instance) Lab Orders None Open Future (Single Instance) Lab Orders Expected Expires Ordered COMPREHENSIVE METABOLIC PANEL [SQCMP] 03/15/24 06/14/24 11/29/23 Auth. provider: Greg Abrams MD Assoc. diagnoses: Hyperkalemia COMPLETE BLOOD COUNT AND DIFFERENTIAL [SQCBCDIF] 03/15/24 06/14/24 11/29/23 Auth. provider: Greg Abrams MD Assoc. diagnoses: Macrocytosis without anemia FOLATE, SERUM [SQSERFOL] 03/15/24 06/14/24 11/29/23 Auth. provider: Grge Abrams MD Assoc. diagnoses: Macrocytosis without anemia VITAMIN B12 [SQB12] 03/15/24 06/14/24 11/29/23 Auth. provider: Greg Abrams MD Assoc. diagnoses: Macrocytosis without anemia documented in this encounterSelect [facility] [place]-2024 Telephone encounter Note * Telephone Encounter - Leta Berg LPN - 01/07/2024 3:23 PM EDT Voicemail msg left patient to return call to [facility] to review test results. Office phone number provided. Leta Berg LPN [facility]09-24-2024 Miscellaneous Notes* Telephone Encounter - Leta Berg LPN - 01/07/2024 3:23 PM EDT Voicemail msg left patient to return call to [facility] to review test results. Office phone number provided. Leta Berg LPN * Telephone Encounter - Leta Berg LPN - 01/07/2024 3:22 PM EDT ----- Message from Makeda Nelson APRN.ALMOND ROASTER sent at 01/07/2024 3:21 PM EDT ----- Please call the patient and report lab results revealed normal potassium level. Makeda Nelson APRN.ALMOND ROASTER documented in this encounterSelect [facility] [place]09-24-2024 Telephone encounter Note * Telephone Encounter - Leta Berg LPN - 01/07/2024 3:22 PM EDT ----- Message from Makeda Nelson APRN.ALMOND ROASTER sent at 01/07/2024 3:21 PM EDT ----- Please call the patient and report lab results revealed normal potassium level. Makeda Nelson APRN.ALMOND ROASTER [facility] [place]09-16-2024 Telephone encounter Note* Telephone Encounter - Meenu Ceja MA - 12/30/2023 9:44 AM EDT Images from the original note were not included. Most recent Rheumatology visit: 11/29/2021 (with Deloris Juarez) Last Bone Density on file: 12/14/2022 Rheumatology Care Team: None on file Recent Office Visits - This Specialty None Upcoming Rheumatology Appointments - Next 365 Days Visit Type Date Time Department [facility] 02/04/2024 11:30 AM [facility] CBC: Latest Ref Rng & Units 05/02/2022 11/21/2023 CBC WBC 3.70 - 11.00 k/uL 7.49 7.64 Hemoglobin 11.5 - 15.5 g/dL 14.4 14.3 Hematocrit 36.0 - 46.0 % 44.4 44.2 Platelet Count 150 - 400 k/uL 247 236 Abs Neut (ANC) 1.45 - 7.50 k/uL 3.12 Abs Lymph 1.00 - 4.00 k/uL 3.80 Vitamin D: Latest Ref Rng & Units 05/02/2022 11/21/2023 Vitamin D Vitamin D 25 Hydroxy 31.0 - 80.0 ng/mL 27.0 43.0 LFT: Latest Ref Rng & Units 05/27/2023 11/21/2023 CMP Sodium 136 - 144 mmol/L 139 142 Potassium 3.7 - 5.1 mmol/L 3.4 5.2 Chloride 98 - 107 mmol/L 102 105 CO2 22 - 30 mmol/L 24 24 Glucose 74 - 99 mg/dL 106 97 BUN 7 - 21 mg/dL 12 13 Creatinine 0.58 - 0.96 mg/dL 0.84 0.84 Calcium 8.5 - 10.2 mg/dL 10.8 9.9 AST 13 - 35 U/L 102 34 ALT 7 - 38 U/L 68 28 Alkaline Phosphatase 34 - 123 U/L 80 73 Hepatic Function: Creatinine: Latest Ref Rng & Units 05/27/2023 11/21/2023 Creatinine Creatinine 0.58 - 0.96 mg/dL 0.84 0.84 ESR/CRP: None on file in the last 6 months Uric Acid: None on file in the last 6 months Open Standing (Multiple Instance) Lab Orders None Open Future (Single Instance) Lab Orders Expected Expires Ordered POTASSIUM [SQK1] 11/22/23 02/21/24 11/22/23 Auth. provider: Makeda Nelson APRN.ALMOND ROASTER Assoc. diagnoses: Hyperkalemia COMPREHENSIVE METABOLIC PANEL [SQCMP] 03/15/24 06/14/24 11/29/23 Auth. provider: Greg Abrams MD Assoc. diagnoses: Hyperkalemia COMPLETE BLOOD COUNT AND DIFFERENTIAL [SQCBCDIF] 03/15/24 06/14/24 11/29/23 Auth. provider: Greg Abrams MD Assoc. diagnoses: Macrocytosis without anemia FOLATE, SERUM [SQSERFOL] 03/15/24 06/14/24 11/29/23 Auth. provider: Greg Abrams MD Assoc. diagnoses: Macrocytosis without anemia VITAMIN B12 [SQB12] 03/15/24 06/14/24 11/29/23 Auth. provider: Greg Abrams MD Assoc. diagnoses: Macrocytosis without anemia [facility]09-16-2024 Miscellaneous Notes* Telephone Encounter - Meenu Ceja LYNNE - 12/30/2023 9:44 AM EDT Images from the original note were not included. Most recent Rheumatology visit: 11/29/2021 (with Deloris Juarez) Last Bone Density on file: 12/14/2022 Rheumatology Care Team: None on file Recent Office Visits - This Specialty None Upcoming Rheumatology Appointments - Next 365 Days Visit Type Date Time Department [facility] 02/04/2024 11:30 AM [facility] CBC: Latest Ref Rng & Units 05/02/2022 11/21/2023 CBC WBC 3.70 - 11.00 k/uL 7.49 7.64 Hemoglobin 11.5 - 15.5 g/dL 14.4 14.3 Hematocrit 36.0 - 46.0 % 44.4 44.2 Platelet Count 150 - 400 k/uL 247 236 Abs Neut (ANC) 1.45 - 7.50 k/uL 3.12 Abs Lymph 1.00 - 4.00 k/uL 3.80 Vitamin D: Latest Ref Rng & Units 05/02/2022 11/21/2023 Vitamin D Vitamin D 25 Hydroxy 31.0 - 80.0 ng/mL 27.0 43.0 LFT: Latest Ref Rng & Units 05/27/2023 11/21/2023 CMP Sodium 136 - 144 mmol/L 139 142 Potassium 3.7 - 5.1 mmol/L 3.4 5.2 Chloride 98 - 107 mmol/L 102 105 CO2 22 - 30 mmol/L 24 24 Glucose 74 - 99 mg/dL 106 97 BUN 7 - 21 mg/dL 12 13 Creatinine 0.58 - 0.96 mg/dL 0.84 0.84 Calcium 8.5 - 10.2 mg/dL 10.8 9.9 AST 13 - 35 U/L 102 34 ALT 7 - 38 U/L 68 28 Alkaline Phosphatase 34 - 123 U/L 80 73 Hepatic Function: Creatinine: Latest Ref Rng & Units 05/27/2023 11/21/2023 Creatinine Creatinine 0.58 - 0.96 mg/dL 0.84 0.84 ESR/CRP: None on file in the last 6 months Uric Acid: None on file in the last 6 months Open Standing (Multiple Instance) Lab Orders None Open Future (Single Instance) Lab Orders Expected Expires Ordered POTASSIUM [SQK1] 11/22/23 02/21/24 11/22/23 Auth. provider: Makeda Nelson APRN.ALMOND ROASTER Assoc. diagnoses: Hyperkalemia COMPREHENSIVE METABOLIC PANEL [SQCMP] 03/15/24 06/14/24 11/29/23 Auth. provider: Greg Abrams MD Assoc. diagnoses: Hyperkalemia COMPLETE BLOOD COUNT AND DIFFERENTIAL [SQCBCDIF] 03/15/24 06/14/24 11/29/23 Auth. provider: Greg Abrams MD Assoc. diagnoses: Macrocytosis without anemia FOLATE, SERUM [SQSERFOL] 03/15/24 06/14/24 11/29/23 Auth. provider: Greg Abrams MD Assoc. diagnoses: Macrocytosis without anemia VITAMIN B12 [SQB12] 03/15/24 06/14/24 11/29/23 Auth. provider: Greg Abrams MD Assoc. diagnoses: Macrocytosis without anemia * Telephone Encounter - Lilli Worrell - 12/30/2023 9:39 AM EDT Prescription Refill Information The patient has been identified by name and date of : Yes Caregiver verified no other encounters exist for this prescription request: Yes Caregiver confirmed with patient/requestor that no other refills are due, in the near future, with this provider at this time: Yes The last office visit in the department: 08-31-22 Does the patient have a future office visit with this provider/department: Yes Requested Prescriptions Pending Prescriptions Disp Refills abatacept (ORENCIA) 125 mg/mL injection 4 mL 0 Sig: INJECT THE CONTENTS OF 1 SYRINGE (125 MG) UNDER THE SKIN ONCE EACH WEEK Lilli Worrell December 30, 2023 9:42 AM documented in this encounterSelect [facility] [place]-2024 Telephone encounter Note * Telephone Encounter - Lilli Worrell - 12/30/2023 9:39 AM EDT Prescription Refill Information The patient has been identified by name and date of : Yes Caregiver verified no other encounters exist for this prescription request: Yes Caregiver confirmed with patient/requestor that no other refills are due, in the near future, with this provider at this time: Yes The last office visit in the department: 08-31-22 Does the patient have a future office visit with this provider/department: Yes Requested Prescriptions Pending Prescriptions Disp Refills abatacept (ORENCIA) 125 mg/mL injection 4 mL 0 Sig: INJECT THE CONTENTS OF 1 SYRINGE (125 MG) UNDER THE SKIN ONCE EACH WEEK Lilli Worrell December 30, 2023 9:42 AM T [facility]09-13-2024 Telephone encounter Note* Telephone Encounter - Gabby Buitrago RN - 12/27/2023 2:30 PM EDT Call from [facility] to request prescription refills for Magnesium, Vitamin D3, [place] 3, B-12, and Calcium with Vitamin D3. Patient is switching to [facility] and those are the prescriptions that were not transferred. Verified with patient that her preferred pharmacy will be [facility] now as they deliver to her home address. Last OV: 10/30/2023 Next OV: 03/26/2024 Gabby Buitrago RN [facility]09-13-2024 Miscellaneous Notes* Telephone Encounter - Gabby Buitrago RN - 12/27/2023 2:30 PM EDT Call from [facility] to request prescription refills for Magnesium, Vitamin D3, [place] 3, B-12, and Calcium with Vitamin D3. Patient is switching to [facility] and those are the prescriptions that were not transferred. Verified with patient that her preferred pharmacy will be [facility] now as they deliver to her home address. Last OV: 10/30/2023 Next OV: 03/26/2024 Gabby Buitrago, RN documented in this encounterSelect [facility] [place]09-12-2024 Telephone encounter Note * Telephone Encounter - Sintia Canas - 12/26/2023 1:01 PM EDT Patient scheduled appt for 02/04/24 and is asking if this medication can be refilled until her nextappt [facility]09-12-2024 Miscellaneous Notes* Telephone Encounter - Sintia Canas - 12/26/2023 1:01 PM EDT Patient scheduled appt for 02/04/24 and is asking if this medication can be refilled until her nextappt * Telephone Encounter - Deloris Juarez APRN.CNP - 12/10/2023 9:11 AM EDT I have not seen in 2 years, needs follow up for refills. Deloris Juarez APRN.EDMUND * Telephone Encounter - Debbie Toribio OCCA - 12/10/2023 8:52 AM EDT Images from the original note were not included. Most recent Rheumatology visit: 11/29/2021 (with Deloris Juarez) Last Bone Density on file: 12/14/2022 Rheumatology Care Team: None on file Recent Office Visits - This Specialty 11/29/2021 Inflammatory arthritis Rheumatology Deloris Juarez APRN.EDMUND 01/12/2019 Rheumatoid arthritis involving multiple sites with positive rheumatoid factor (HCC) Rheumatology Deloris Juarez APRN.CNP 07/03/2018 Rheumatoid arthritis involving multiple sites with positive rheumatoid factor (HCC) Rheumatology Mary Ellen Glasgow (Edmund)(Hist) Upcoming Rheumatology Appointments - Next 365 Days No appointments to display CBC: Latest Ref Rng & Units 05/02/2022 11/21/2023 CBC WBC 3.70 - 11.00 k/uL 7.49 7.64 Hemoglobin 11.5 - 15.5 g/dL 14.4 14.3 Hematocrit 36.0 - 46.0 % 44.4 44.2 Platelet Count 150 - 400 k/uL 247 236 Abs Neut (ANC) 1.45 - 7.50 k/uL 3.12 Abs Lymph 1.00 - 4.00 k/uL 3.80 Vitamin D: Latest Ref Rng & Units 05/02/2022 11/21/2023 Vitamin D Vitamin D 25 Hydroxy 31.0 - 80.0 ng/mL 27.0 43.0 LFT: Latest Ref Rng & Units 05/27/2023 11/21/2023 CMP Sodium 136 - 144 mmol/L 139 142 Potassium 3.7 - 5.1 mmol/L 3.4 5.2 Chloride 98 - 107 mmol/L 102 105 CO2 22 - 30 mmol/L 24 24 Glucose 74 - 99 mg/dL 106 97 BUN 7 - 21 mg/dL 12 13 Creatinine 0.58 - 0.96 mg/dL 0.84 0.84 Calcium 8.5 - 10.2 mg/dL 10.8 9.9 AST 13 - 35 U/L 102 34 ALT 7 - 38 U/L 68 28 Alkaline Phosphatase 34 - 123 U/L 80 73 Hepatic Function: Creatinine: Latest Ref Rng & Units 05/27/2023 11/21/2023 Creatinine Creatinine 0.58 - 0.96 mg/dL 0.84 0.84 ESR/CRP: None on file in the last 6 months Uric Acid: None on file in the last 6 months Open Standing (Multiple Instance) Lab Orders None Open Future (Single Instance) Lab Orders Expected Expires Ordered POTASSIUM [SQK1] 11/22/23 02/21/24 11/22/23 Auth. provider: Makeda Nelson APRN.ALMOND ROASTER Assoc. diagnoses: Hyperkalemia COMPREHENSIVE METABOLIC PANEL [SQCMP] 03/15/24 06/14/24 11/29/23 Auth. provider: Greg Abrams MD Assoc. diagnoses: Hyperkalemia COMPLETE BLOOD COUNT AND DIFFERENTIAL [SQCBCDIF] 03/15/24 06/14/24 11/29/23 Auth. provider: Greg Abrams MD Assoc. diagnoses: Macrocytosis without anemia FOLATE, SERUM [SQSERFOL] 03/15/24 06/14/24 11/29/23 Auth. provider: Greg Abrams MD Assoc. diagnoses: Macrocytosis without anemia VITAMIN B12 [SQB12] 03/15/24 06/14/24 11/29/23 Auth. provider: Greg Abrams MD Assoc. diagnoses: Macrocytosis without anemia [facility] [place] Telephone encounter Note * Telephone Encounter - Dara Linton - 12/11/2023 4:39 PM EDT Prescription Refill Information The patient has been identified by name and date of : Yes Caregiver verified no other encounters exist for this prescription request: Yes Caregiver confirmed with patient/requestor that no other refills are due, in the near future, with this provider at this time: Yes The last office visit in the department: 10/30/2023 Does the patient have a future office visit with this provider/department: Yes Requested Prescriptions Pending Prescriptions Disp Refills polyethylene glycol 3350 (MIRALAX) 17 gram/dose powder 507 g 1 Sig: Take 17 g by mouth two times a day as needed for constipation. folic acid 1 mg tablet 30 tablet 2 Sig: Take 1 tablet by mouth once daily. Take with breakfast Dara Coles December 11, 2023 4:41 PM [facility]08-28-2024 Miscellaneous Notes* Telephone Encounter - Dara Linton - 12/11/2023 4:39 PM EDT Prescription Refill Information The patient has been identified by name and date of : Yes Caregiver verified no other encounters exist for this prescription request: Yes Caregiver confirmed with patient/requestor that no other refills are due, in the near future, with this provider at this time: Yes The last office visit in the department: 10/30/2023 Does the patient have a future office visit with this provider/department: Yes Requested Prescriptions Pending Prescriptions Disp Refills polyethylene glycol 3350 (MIRALAX) 17 gram/dose powder 507 g 1 Sig: Take 17 g by mouth two times a day as needed for constipation. folic acid 1 mg tablet 30 tablet 2 Sig: Take 1 tablet by mouth once daily. Take with breakfast Dara Coles December 11, 2023 4:41 PM documented in [facility] [place] Telephone encounter Note * Telephone Encounter - Deloris Juarez APRN.CNP - 12/10/2023 9:11 AM EDT I have not seen in 2 years, needs follow up for refills. Deloris Juarez APRN.EDMUND [facility] [place]08-[facility] Telephone encounter Note* Telephone Encounter - Debbie Toribio OCCA - 12/10/2023 8:52 AM EDT Images from the original note were not included. Most recent Rheumatology visit: 11/29/2021 (with Deloris Juarez) Last Bone Density on file: 12/14/2022 Rheumatology Care Team: None on file Recent Office Visits - This Specialty 11/29/2021 Inflammatory arthritis Rheumatology Deloris Juarez APRN.EDMUND 01/12/2019 Rheumatoid arthritis involving multiple sites with positive rheumatoid factor (HCC) Rheumatology Deloris Juarez APRN.CNP 07/03/2018 Rheumatoid arthritis involving multiple sites with positive rheumatoid factor (HCC) Rheumatology Mary Ellen Glasgow ([place])(Hist) Upcoming Rheumatology Appointments - Next 365 Days No appointments to display CBC: Latest Ref Rng & Units 05/02/2022 11/21/2023 CBC WBC 3.70 - 11.00 k/uL 7.49 7.64 Hemoglobin 11.5 - 15.5 g/dL 14.4 14.3 Hematocrit 36.0 - 46.0 % 44.4 44.2 Platelet Count 150 - 400 k/uL 247 236 Abs Neut (ANC) 1.45 - 7.50 k/uL 3.12 Abs Lymph 1.00 - 4.00 k/uL 3.80 Vitamin D: Latest Ref Rng & Units 05/02/2022 11/21/2023 Vitamin D Vitamin D 25 Hydroxy 31.0 - 80.0 ng/mL 27.0 43.0 LFT: Latest Ref Rng & Units 05/27/2023 11/21/2023 CMP Sodium 136 - 144 mmol/L 139 142 Potassium 3.7 - 5.1 mmol/L 3.4 5.2 Chloride 98 - 107 mmol/L 102 105 CO2 22 - 30 mmol/L 24 24 Glucose 74 - 99 mg/dL 106 97 BUN 7 - 21 mg/dL 12 13 Creatinine 0.58 - 0.96 mg/dL 0.84 0.84 Calcium 8.5 - 10.2 mg/dL 10.8 9.9 AST 13 - 35 U/L 102 34 ALT 7 - 38 U/L 68 28 Alkaline Phosphatase 34 - 123 U/L 80 73 Hepatic Function: Creatinine: Latest Ref Rng & Units 05/27/2023 11/21/2023 Creatinine Creatinine 0.58 - 0.96 mg/dL 0.84 0.84 ESR/CRP: None on file in the last 6 months Uric Acid: None on file in the last 6 months Open Standing (Multiple Instance) Lab Orders None Open Future (Single Instance) Lab Orders Expected Expires Ordered POTASSIUM [SQK1] 11/22/23 02/21/24 11/22/23 Auth. provider: Makeda Nelson APRN.ALMOND ROASTER Assoc. diagnoses: Hyperkalemia COMPREHENSIVE METABOLIC PANEL [SQCMP] 03/15/24 06/14/24 11/29/23 Auth. provider: Greg Abrams MD Assoc. diagnoses: Hyperkalemia COMPLETE BLOOD COUNT AND DIFFERENTIAL [SQCBCDIF] 03/15/24 06/14/24 11/29/23 Auth. provider: Greg Abrams MD Assoc. diagnoses: Macrocytosis without anemia FOLATE, SERUM [SQSERFOL] 03/15/24 06/14/24 11/29/23 Auth. provider: Greg Abrams MD Assoc. diagnoses: Macrocytosis without anemia VITAMIN B12 [SQB12] 03/15/24 06/14/24 11/29/23 Auth. provider: Greg Abrams MD Assoc. diagnoses: Macrocytosis without anemia [facility] History of Present illness Narrative* Greg Abrams MD - 11/29/2023 12:45 PM EDT Labs ordered documented in this encounterSelect [facility] [place] Telephone encounter Note * Telephone Encounter - Sarah Turner RN - 11/29/2023 11:08 AM EDT Patient notified of results and provider's instructions. Patient verbalizes understanding. Sarah Turner RN [facility] Miscellaneous Notes* Telephone Encounter - Sarah Turner RN - 11/29/2023 11:08 AM EDT Patient notified of results and provider's instructions. Patient verbalizes understanding. Sarah Turner RN * Telephone Encounter - Linda Hartman RN - 11/29/2023 8:20 AM EDT Called and left a voicemail for the Patient to call back and ask for a nurse to receive the providers message. Linda Hartman RN * Telephone Encounter - Greg Abrams MD - 11/28/2023 11:06 PM EDT Labs overall are fine, Potassium was only slightly above normal range at 5.1--mainly needs to stay hydrated and avoid potassium supplement and too much fruits or veggies high in potassium. MCV was elevated (volume of RBC is larger than normal range)--make sure to get enough B12 and folate in diet. Might be making more large cells (RDW up as well as MCV) due to B12 or folate deficiency.Meats and green leafy vegetables can help. Noted LDL 126; excellent HDL at 79 and TG good at M150. Risk of ASCVD (like having a heart attack) in next 10 years is low at 6.4 % The 10-year ASCVD risk score (Av ESCOBAR, et al., 2019) is: 6.4% Values used to calculate the score: Age: 68 years Sex: Female Is Non- : No Diabetic: No Tobacco smoker: No Systolic Blood Pressure: 136 mmHg Is BP treated: No HDL Cholesterol: 79 mg/dL Total Cholesterol: 225 mg/dL Can follow up BMP and CBC, Folate and B12 before March appointment with me. * Telephone Encounter - Linda Hartman RN - 11/28/2023 4:37 PM EDT Pt called in asking about her lab results. Let her know that her lab results for Dr Abrams came back WNL.Gave her results from [facility], Please call the patient and report lab results revealed normal kidney and liver function, potassium is slightly elevated. Please ensure patient is not taking any potassium supplements and recommend she reduce foods/drinks high in potassium. Needs repeat potassium blood work drawn. CBC stable. Cholesterol is under poor control. Please verify patient is taking her cholesterol medication at bedtime. Makeda Nelson, TANYA.ALMOND ROASTER. Pt reports she is taking her cholesterol medication at bedtime. Pt will check labels of drinks for potassium, I told her she would have to cut back on her milk. I also told her to limit fresh fruits and greens, as well as to look up other foods high in K+ and decrease them. Pt will come in to get K+ rechecked. Please call and advise if provider has anything else. documented in this encounter[facility] [place] Telephone encounter Note * Telephone Encounter - Linda Hartman RN - 11/29/2023 8:20 AM EDT Called and left a voicemail for the Patient to call back and ask for a nurse to receive the providers message. Linda Hartman RN [facility]24 Telephone encounter Note* Telephone Encounter - Greg Abrams MD - 11/28/2023 11:06 PM EDT Labs overall are fine, Potassium was only slightly above normal range at 5.1--mainly needs to stay hydrated and avoid potassium supplement and too much fruits or veggies high in potassium. MCV was elevated (volume of RBC is larger than normal range)--make sure to get enough B12 and folate in diet. Might be making more large cells (RDW up as well as MCV) due to B12 or folate deficiency.Meats and green leafy vegetables can help. Noted LDL 126; excellent HDL at 79 and TG good at M150. Risk of ASCVD (like having a heart attack) in next 10 years is low at 6.4 % The 10-year ASCVD risk score (Av DK, et al., 2019) is: 6.4% Values used to calculate the score: Age: 68 years Sex: Female Is Non- : No Diabetic: No Tobacco smoker: No Systolic Blood Pressure: 136 mmHg Is BP treated: No HDL Cholesterol: 79 mg/dL Total Cholesterol: 225 mg/dL Can follow up BMP and CBC, Folate and B12 before March appointment with me. [facility] Telephone encounter Note* Telephone Encounter - Linda Hartman RN - 11/28/2023 4:37 PM EDT Pt called in asking about her lab results. Let her know that her lab results for Dr Abrams came back WNL.Gave her results from [facility], Please call the patient and report lab results revealed normal kidney and liver function, potassium is slightly elevated. Please ensure patient is not taking any potassium supplements and recommend she reduce foods/drinks high in potassium. Needs repeat potassium blood work drawn. CBC stable. Cholesterol is under poor control. Please verify patient is taking her cholesterol medication at bedtime. Makeda Nelson APRN.ALMOND ROASTER. Pt reports she is taking her cholesterol medication at bedtime. Pt will check labels of drinks for potassium, I told her she would have to cut back on her milk. I also told her to limit fresh fruits and greens, as well as to look up other foods high in K+ and decrease them. Pt will come in to get K+ rechecked. Please call and advise if provider has anything else. [facility] Telephone encounter Note* Telephone Encounter - Sarah Collins LPN - 11/26/2023 8:26 AM EDT Left message for to call [facility] for test results. [facility] phone number provided. I spoke to Jaye and informed her of Makeda's response to lab results. She will relay message to patient and will ensure that she is taking her cholesterol medicine as ordered and will assist with decreasing potassium in diet. Sarah Collins LPN [facility]08-[facility]24 Miscellaneous Notes* Telephone Encounter - Sarah Collins LPN - 11/26/2023 8:26 AM EDT Left message for to call [facility] for test results. [facility] phone number provided. I spoke to Jaye and informed her of Makeda's response to lab results. She will relay message to patient and will ensure that she is taking her cholesterol medicine as ordered and will assist with decreasing potassium in diet. Sarah Collins LPN * Telephone Encounter - Davon Brown LPN - 11/25/2023 8:26 AM EDT Left message for David requesting return call to [facility] for test results. [facility] phone number provided onmessage. Davon Brown LPN * Telephone Encounter - Trinidad Souza LPN - 11/22/2023 12:04 PM EDT Left message for Ms. Berg to call [facility] for test results. [facility] phone number provided. Trinidad Souza LPN * Telephone Encounter - Trinidad Souza LPN - 11/22/2023 12:03 PM EDT ----- Message from Makeda Nelson APRN.ALMOND ROASTER sent at 11/22/2023 12:00 PM EDT ----- Please call the patient and report lab results revealed normal kidney and liver function, potassiumis slightly elevated. Please ensure patient is not taking any potassium supplements and recommend she reduce foods/drinks high in potassium. Needs repeat potassium blood work drawn. CBC stable. Cholesterol is under poor control. Please verify patient is taking her cholesterol medication at bedtime. Makeda Nelson APRN.ALMOND ROASTER documented in this encounter[facility] [place] Telephone encounter Note * Telephone Encounter - Davon Brown LPN - 11/25/2023 8:26 AM EDT Left message for aDvid requesting return call to [facility] for test results. [facility] phone number provided onmessage. Davon Brown LPN [facility]08-09-2024 Telephone encounter Note* Telephone Encounter - Trinidad Souza LPN - 11/22/2023 12:04 PM EDT Left message for Ms. Berg to call [facility] for test results. [facility] phone number provided. Trinidad Souza LPN [facility] [place]08-[facility]-2024 Telephone encounter Note* Telephone Encounter - Trinidad Souza LPN - 11/22/2023 12:03 PM EDT ----- Message from Makeda Nelson APRN.ALMOND ROASTER sent at 11/22/2023 12:00 PM EDT ----- Please call the patient and report lab results revealed normal kidney and liver function, potassiumis slightly elevated. Please ensure patient is not taking any potassium supplements and recommend she reduce foods/drinks high in potassium. Needs repeat potassium blood work drawn. CBC stable. Cholesterol is under poor control. Please verify patient is taking her cholesterol medication at bedtime. Makeda Nelson APRN.ALMOND ROASTER [facility] [place] Telephone encounter Note* Telephone Encounter - Linda Hartman RN - 11/05/2023 5:00 PM EDT Pt called and is notified of providers message and instructions. Pt voices understanding. Linda Hartman RN [facility]24 Miscellaneous Notes* Telephone Encounter - Linda Hartman RN - 11/05/2023 5:00 PM EDT Pt called and is notified of providers message and instructions. Pt voices understanding. Linda Hartman RN * Telephone Encounter - uLana Tripathi APRN.PANEL ASSEMBLER - 11/05/2023 4:39 PM EDT Seen by PCP. Can send a prescription for diclofenac gel if she would like to try that on her hands. Rx to [facility]. She notes difficulty with oral NSAIDs, should stop using the topical if noting any problems with it. * Telephone Encounter - Lexi Main LPN - 11/05/2023 3:31 PM EDT Patient calling said the Theraworxs is over the counter and she can not afford to pay for that. Patient asking for a rx to be sent to [facility] pharmacy that her insurance would cover. She hasno extra money to buy things like that. Patient said she can not move and use her hands. Please advise documented in this encounter[facility] [place] Telephone encounter Note * Telephone Encounter - Luana Tripathi APRN.SERA - 11/05/2023 4:39 PM EDT Seen by PCP. Can send a prescription for diclofenac gel if she would like to try that on her hands. Rx to [facility]. She notes difficulty with oral NSAIDs, should stop using the topical if noting any problems with it. [facility] Telephone encounter Note* Telephone Encounter - Lexi Main LPN - 11/05/2023 3:31 PM EDT Patient calling said the Theraworxs is over the counter and she can not afford to pay for that. Patient asking for a rx to be sent to [facility] pharmacy that her insurance would cover. She hasno extra money to buy things like that. Patient said she can not move and use her hands. Please advise [facility] Instructions* Patient Instructions* Greg Abrams MD - 10/30/2023 10:24 AM EDT Stop taking calcium pills for now Theraworx topical can help with leg cramping and hand cramping. documented in this encounterSelect [facility] [place] History of Present illness Narrative* Greg Abrams MD - 10/30/2023 9:20 AM EDT This note was created using [employer]. Subjective David Berg is a 68 year old female. Patient presents with: Established Patient: X 2 days difficulty urinating and discomfort with urination X 4 days left wrist pain Intermittent possible distonia bilateral hands SUBJECTIVE: David Berg is a 68 year old year old lady here today for follow up appointment for review of medical conditions: intermittent dystonia both hands. Few years of symptoms. Not often. Recently both hands while playing euchre. Very painful. Tried diclofenac cream and helped for a while.But cramped again. Since about 3 years ago. Feet cramps at night--almost every night several time a night since 5 years ago Requip is helping for RLS. Hurts to pee. Feels like a UTI. Noted had to have bladder sling clipped because could not pee. Now does not have to self cath since. PAST MEDICAL HISTORY Diagnosis Date Acute hepatitis C without mention of hepatic coma(070.51) negative RNA in 2016 Acute left ankle pain 12/18/2017 Acute pneumonia 01/15/2022 Anxiety state 05/29/2005 Dr. 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 Not on medications, not seeing neurology. 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 Choi-ID Prediabetes Psoriasis Rheumatoid arthritis involving multiple sites with positive rheumatoid factor (HCC) 12/13/[address] Bowden RLS (restless legs syndrome) 08/29/2011 Vasovagal syncope Vitamin D deficiency Current Outpatient Medications Medication Sig OTEZLA 30 mg tablet Take 30 mg by mouth once daily. albuterol HFA (VENTOLIN HFA) 90 mcg/actuation inhaler Inhale 2 Puffs as instructed every 4 hours asneeded for wheezing/shortness of breath. calcium carbonate 600 mg-cholecalciferol 400 units (CALCIUM 600 + D) 600 mg-10 mcg (400 unit) tab Take 1 tablet by mouth once daily. ergocalciferol 50,000 unit capsule (VITAMIN D2, DRISDOL) Take 1 capsule by mouth one time a week. folic acid 1 mg tablet Take 1 tablet by mouth once daily. Take with breakfast magnesium oxide (MAG-OX) 400 mg (241.3 mg magnesium) tablet Take 1 tablet by mouth once daily. rOPINIRole (REQUIP) 1 mg tablet take 1 tablet by mouth once daily ORENCIA 125 mg/mL injection INJECT THE CONTENTS OF 1 SYRINGE (125 MG) UNDER THE SKIN ONCE EACH WEEK iv contrast (will be provided with radiology test) CT PANCREAS W Inject, intravenously, once for 1 dose.No IV access, insert saline lock prior to the beginning of sedation, infusion, injection of imaging exam. Discontinue saline lock post exam. If Pt. has a central line or IVAD, may access for administration according to line specific nursing protocol. Once exam is complete flush line and de-access according to line specific nursing protocol in the CT contrast administration guidelines link. polyethylene glycol 3350 (MIRALAX) 17 gram/dose powder Take 17 g by mouth two times a day as neededfor constipation. wucrwa-rqnacnpi-cqrrvsa (CREON) 6,000-19,000 -30,000 unit delayed release capsule Take 2 capsules by mouth with meals and at bedtime. omega-3 fatty acids 1,000 mg cap Take 2 capsules by mouth once daily. dicyclomine (BENTYL) 10 mg capsule Take 1 capsule by mouth four times daily as needed. For abdominal pain. omega 6-bpx-wbf-fish oil 1,000 mg (250 mg-750 mg)/5 mL liqd Take 1,000 mg by mouth once daily. cyanocobalamin (VITAMIN B-12) 1,000 mcg tab Take 1 tablet by mouth once daily. budesonide-formoterol (SYMBICORT) 160-4.5 mcg/actuation inhaler Inhale 2 Puffs as instructed twice daily. nicotine (NICOTROL) 10 mg inhaler Inhale 1 Puff as instructed as needed. Nebulizers 1 Each once daily. Blood Pressure Monitor (BLOOD PRESSURE KIT) 1 Each once daily as needed. Dx: recurrent syncope R55 ALPRAZolam (XANAX) 1 mg tablet Take 1 mg by mouth twice daily. QUEtiapine (SEROQUEL) 100 mg tablet Take 2 tablets by mouth daily at bedtime. Current Facility-Administered Medications Medication Dose Route Frequency Adult Home Parenteral Nutrition 3:1 INTRAVENOUS DAILY Review of Systems Objective BP 136/92 Pulse 102 Temp (!) 35.6 C (96 F) Resp 18 Wt 57.4 kg (126 lb 9.6 oz) SpO2 96% BMI 22.15 kg/m Physical Exam Constitutional: Appearance: Normal appearance. HENT: Head: Normocephalic. Eyes: Conjunctiva/sclera: Conjunctivae normal. Cardiovascular: Rate and Rhythm: Normal rate and regular rhythm. Heart sounds: Normal heart sounds. Pulmonary: Effort: Pulmonary effort is normal. Breath sounds: Normal breath sounds. Skin: General: Skin is warm and dry. Neurological: General: No focal deficit present. Mental Status: She is alert and oriented to person, place, and time. Psychiatric: Mood and Affect: Mood normal. Behavior: Behavior normal. Thought Content: Thought content normal. Judgment: Judgment normal. Assessment and Plan ASSESSMENT/PLAN: 1. Difficulty urinating - ICD9: 788.99, ICD10: R39.198 (primary diagnosis) Further evaluation and treatment as indicated. - UA DIP, URINE (POC) - NITROFURANTOIN MONOHYDRATE & MACROCRYSTAL 100 MG ORAL CAP 2. Difficult or painful urination - ICD9: 788.1, ICD10: R30.0 acute - Patient education for prevention given - UA DIP, URINE (POC) - NITROFURANTOIN MONOHYDRATE & MACROCRYSTAL 100 MG ORAL CAP 3. Cramping of feet - ICD9: 729.82, ICD10: R25.2 Discussed management. Further evaluation and treatment as indicated. - COMPREHENSIVE METABOLIC PANEL - COMPLETE BLOOD COUNT - THYROID STIMULATING HORMONE - T4 FREE/FREE THYROXINE - T3, FREE - PTH INTACT - MAGNESIUM 4. Hand cramps - ICD9: 729.82, ICD10: R25.2 Discussed management Further evaluation and treatment as indicated. - COMPREHENSIVE METABOLIC PANEL - COMPLETE BLOOD COUNT - THYROID STIMULATING HORMONE - T4 FREE/FREE THYROXINE - T3, FREE - PTH INTACT - MAGNESIUM 5. Hypercalcemia - ICD9: 275.42, ICD10: E83.52 Follow up labs. Adjust supplements as needed - COMPREHENSIVE METABOLIC PANEL - COMPLETE BLOOD COUNT - THYROID STIMULATING HORMONE - T4 FREE/FREE THYROXINE - T3, FREE - PTH INTACT - MAGNESIUM 6. Hypokalemia - ICD9: 276.8, ICD10: E87.6 Adjust intake as indicated - COMPREHENSIVE METABOLIC PANEL 7. Vitamin D deficiency - ICD9: 268.9, ICD10: E55.9 Adjust supplement as neded - VITAMIN D 25 HYDROXY No problem-specific Assessment & Plan notes found for this encounter. Greg Abrams MD documented [facility] this encounter[facility] Instructions* Patient Instructions* Greg Abrams MD - 09/23/2023 5:14 PM EDT Consider seeing Dr. Milner for Geriatric consult to evaluated memory issues. Consider working with neurologist for issues with PLMS/RLS (periodic limb movement of sleep/restless leg syndrome). May need to adjust meds to help with preventing memory issues that could be side effect of meds. documented in this encounter[facility] [place] History of Present illness Narrative* Greg Abrams MD - 09/23/2023 4:27 PM EDT This note was created using NoteWriter. Subjective David Berg is a 67 year old female. HISTORY David Berg is a 67 year old lady here to be formally established with me. No acute issues to address. 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 Also sees Dr. Carmona in [place] for pain management. Will get epidural soon. Has had prior ones but did not last as long as she would like. Glad for RFA for helping with pancreatitis pain. BPs have been good even without BP meds since get rid of source of stress. Reviewed that diagnosis of personality disorder got stuck on her chart but she was told byDr. Ryan that she does not have this diagnosis. Discussed wanted removed so will start by removing from problems list. Not using Symbicort. Does cough every morning. Does get phlegm then okay the rest of the day. Quit smoking June 02, 2017 and stayed quit. Memory issues noted. Considering getting evaluated. Had PLMS on PSG. No sleep apnea. On Requip. PAST MEDICAL HISTORY Diagnosis Date Acute hepatitis C without mention of hepatic coma(070.51) negative RNA in 2015 Acute left ankle pain 12/18/2017 Acute pneumonia 01/15/2022 Anxiety state 05/29/2005 Dr. 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 Not on medications, not seeing neurology. 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 Choi-ID Prediabetes Psoriasis Rheumatoid arthritis involving multiple sites with positive rheumatoid factor (HCC) 12/13/[address] Bowden RLS (restless legs syndrome) 08/29/2011 Vasovagal syncope Vitamin D deficiency Current Outpatient Medications Medication Sig OTEZLA 30 mg tablet Take 30 mg by mouth once daily. calcium carbonate 600 mg-cholecalciferol 400 units (CALCIUM 600 + D) 600 mg-10 mcg (400 unit) tab Take 1 tablet by mouth once daily. ergocalciferol 50,000 unit capsule (VITAMIN D2, DRISDOL) Take 1 capsule by mouth one time a week. folic acid 1 mg tablet Take 1 tablet by mouth once daily. Take with breakfast magnesium oxide (MAG-OX) 400 mg (241.3 mg magnesium) tablet Take 1 tablet by mouth once daily. rOPINIRole (REQUIP) 1 mg tablet take 1 tablet by mouth once daily ORENCIA 125 mg/mL injection INJECT THE CONTENTS OF 1 SYRINGE (125 MG) UNDER THE SKIN ONCE EACH WEEK polyethylene glycol 3350 (MIRALAX) 17 gram/dose powder Take 17 g by mouth two times a day as neededfor constipation. jjaaqo-wlmqlbrp-pmhyldx (CREON) 6,000-19,000 -30,000 unit delayed release capsule Take 2 capsules by mouth with meals and at bedtime. omega-3 fatty acids 1,000 mg cap Take 2 capsules by mouth once daily. dicyclomine (BENTYL) 10 mg capsule Take 1 capsule by mouth four times daily as needed. For abdominal pain. omega 0-axv-gzl-fish oil 1,000 mg (250 mg-750 mg)/5 mL liqd Take 1,000 mg by mouth once daily. cyanocobalamin (VITAMIN B-12) 1,000 mcg tab Take 1 tablet by mouth once daily. nicotine (NICOTROL) 10 mg inhaler Inhale 1 Puff as instructed as needed. Nebulizers 1 Each once daily. Blood Pressure Monitor (BLOOD PRESSURE KIT) 1 Each once daily as needed. Dx: recurrent syncope R55 ALPRAZolam (XANAX) 1 mg tablet Take 1 mg by mouth twice daily. QUEtiapine (SEROQUEL) 100 mg tablet Take 2 tablets by mouth daily at bedtime. albuterol HFA (VENTOLIN HFA) 90 mcg/actuation inhaler Inhale 2 Puffs as instructed every 4 hours asneeded for wheezing/shortness of breath. iv contrast (will be provided with radiology test) CT PANCREAS W Inject, intravenously, once for 1 dose.No IV access, insert saline lock prior to the beginning of sedation, infusion, injection of imaging exam. Discontinue saline lock post exam. If Pt. has a central line or IVAD, may access for administration according to line specific nursing protocol. Once exam is complete flush line and de-access according to line specific nursing protocol in the CT contrast administration guidelines link. budesonide-formoterol (SYMBICORT) 160-4.5 mcg/actuation inhaler Inhale 2 Puffs as instructed twice daily. Current Facility-Administered Medications Medication Dose Route Frequency Adult Home Parenteral Nutrition 3:1 INTRAVENOUS DAILY ALLERGIES Allergen Reactions Acetaminophen Other: See Comments pt told not to take due to liver damage Bupropion Hcl Unknown Codeine Rash, Itching Darvon [Propoxyphen* Itching Daypro [Oxaprozin] Rash Effexor [Venlafaxin* Intolerance decreased libido Flexeril [Cyclobenz* GI Upset, Vomiting Gabapentin Mental Status Change hangover Ibuprofen Other: See Comments pt was told not to take due to kindey damage Stebbins [Hydrocodone-* GI Upset, Itching nausea, itching Oxybutynin Other: See Comments Urinary retention Pentazocine Itching Iberia Trees [Trees] rash Tramadol Intolerance PAST SURGICAL HISTORY Procedure Laterality Date BACK SURGERY HX 09/27/2022 CHOLECYSTECTOMY 827975 lap COCHLEAR IMPLANT HX COLONOSCOPY FLX DX W/COLLJ SPEC WHEN PFRMD 10/11/2009 Colonoscopy COLONOSCOPY FLX DX W/COLLJ SPEC WHEN PFRMD 09/30/2018 Colonoscopy EGD EUS N/A 04/06/2020 diffusely dilated PD, suspected pancreas divisum, mild duodenitis ESOPHAGOGASTRODUODENOSCOPY TRANSORAL DIAGNOSTIC 09/30/2018 EGD IR VASCULAR ACCESS TEAM PICC INSERTION RADIO 02/08/2022 OPEN TREATMENT NASAL FRACTURE UNCOMPLICATED x2 no breathing problems PAST SURGICAL HISTORY OF X 2 PAST SURGICAL HISTORY OF FACIAL RECONSTRUCTION PAST SURGICAL HISTORY OF 1997 BILAT. SHOULDER SURGERY PAST SURGICAL HISTORY OF 1994 CERVICAL SPINE FUSION C4, C5 (had cervical fx x3 - even after repair) PAST SURGICAL HISTORY OF 1969 LEFT EAR CHOLESTEATOMA PAST SURGICAL HISTORY OF CLEFT LIP PAST SURGICAL HISTORY OF 02/2006 lasik PAST SURGICAL HISTORY OF 2004 bladder sling PAST SURGICAL HISTORY OF 08/09/2020 Upper endoscopy, percutaneous endoscopic gastrostomy (PEG) tube placed REMV CATARACT EXTRACAP,INSERT LENS Bilateral TRACHEOSTOMY EMERGENCY PROCEDURE TRANSTRACHEAL age 3 or 4 during surgery; lost airway FAMILY HISTORY Problem Relation Age of Onset Stroke Mother Hypertension Mother Diabetes Father Cancer Father melanoma Kidney transplant Father Cancer Sister thyroid Breast Cancer Sister Breast Cancer Sister Cancer Brother 21 testicular Breast Cancer Maternal Aunt Cancer Other E-semvya-Ybhrazzeio Social History Tobacco Use Smoking status: Former Packs/day: 1.00 Years: 30.00 Additional pack years: 0.00 Total pack years: 30.00 Types: Cigarettes Quit date: 06/02/2017 Years since quittin.3 Smokeless tobacco: Never Vaping Use Vaping Use: Never used Substance Use Topics Alcohol use: No Drug use: No Comment: IV DRUG USER Review of Systems Objective BP 138/86 Pulse 66 Temp 36.1 C (96.9 F) Resp 18 Ht 161 cm (5' 3.39) Wt 60.7 kg (133 lb 12.8 oz) SpO2 95% BMI 23.41 kg/m Physical Exam Vitals reviewed. Constitutional: Appearance: Normal appearance. She is well-developed. HENT: Head: Normocephalic and atraumatic. Right Ear: External ear normal. Left Ear: External ear normal. Nose: Nose normal. Eyes: Conjunctiva/sclera: Conjunctivae normal. Pupils: Pupils are equal, round, and reactive to light. Neck: Thyroid: No thyromegaly. Cardiovascular: Rate and Rhythm: Normal rate and regular rhythm. Pulses: Normal pulses. Heart sounds: Normal heart sounds. No murmur heard. No friction rub. No gallop. Pulmonary: Effort: Pulmonary effort is normal. Breath sounds: Normal breath sounds. Abdominal: General: Bowel sounds are normal. There is no distension. Palpations: Abdomen is soft. There is no mass. Tenderness: There is no abdominal tenderness. Musculoskeletal: General: No deformity. Normal range of motion. Right lower leg: No edema. Left lower leg: No edema. Lymphadenopathy: Cervical: No cervical adenopathy. Skin: General: Skin is warm and dry. Coloration: Skin is not jaundiced or pale. Findings: No rash. Neurological: General: No focal deficit present. Mental Status: She is alert and oriented to person, place, and time. Cranial Nerves: No cranial nerve deficit. Sensory: No sensory deficit. Motor: No abnormal muscle tone. Coordination: Coordination normal. Deep Tendon Reflexes: Reflexes normal. Psychiatric: Mood and Affect: Mood normal. Behavior: Behavior normal. Thought Content: Thought content normal. Judgment: Judgment normal. Assessment and Plan Encounter Diagnosis ICD-10-CM 1. COPD with chronic bronchitis (HCC) J44.89 Has productive cough every AM.PFTs last year showed responds to bronchodilators Above issues addressed with patient. Patient involved in shared decision making for management of medical issues. History and medications reviewed. Epic updated as needed Refills and/or prescriptions taken care of and meds adjusted as indicated after reviewed history, exam and labs. Health Maintenance reviewed. Updated record and/or ordered tests as recorded. Encouraged on efforts at healthy diet and regular exercise and adequate sleep. I spent a total of at least 38 minutes on the date of the service which included [id number] patient care, completing clinical documentation, obtaining and/or reviewing separately obtained history, performing a medically appropriate examination, counseling and educating the patient/family/caregiver, and ordering medications, tests, or procedures. Greg Abrams MD documented in this encounterSelect [facility] [place]24 Telephone encounter Note * Telephone Encounter - Nisreen Peña MA - 09/13/2023 4:16 PM EDT Lab mailed to home address as requested. [facility] Miscellaneous Notes* Telephone Encounter - Nisreen Peña MA - 09/13/2023 4:16 PM EDT Lab mailed to home address as requested. 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 Needscopy of thyroid lab results from 08/27/22 mailed to her home address. She is unable to print from [employer]. Needs this to prove issues are not related to Thyroid. 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 Needscopy of thyroid lab results from 08/27/22 mailed to her home address. She is unable to print from My[employer]. Needs this to prove issues are not related to Thyroid. [facility] Work Phone: [phone]) 424-219805-14-2024 Telephone encounter Note* Telephone Encounter - Lexi Main LPN - 08/27/2023 3:08 PM EDT Patient calling asking for several rx refills had put this request with that one. Cancelling this note. [facility] Miscellaneous Notes* Telephone Encounter - Lexi Main LPN - 08/27/2023 3:08 PM EDT Patient calling asking for several rx refills had put this request with that one. Cancelling this note. * Telephone Encounter - Cherry Suresh LPN - 08/27/2023 2:55 PM EDT Patient has been identified by name and date of : Yes Patient phones for refill(s): Requested Prescriptions Pending Prescriptions Disp Refills folic acid 1 mg tablet [Pharmacy Med Name: FOLIC ACID 1 MG TABLET] 90 tablet Sig: take 1 tablet by mouth once daily with breakfast Date of last office visit in primary care: 04/26/2023 Date of next office visit in primary care: 09/23/2023 Please advise. Thank you. Cherry Suresh LPN. documented in this encounterSelect [facility] [place]05-14-2024 Telephone encounter Note * Telephone Encounter - Lexi Main LPN - 08/27/2023 3:00 PM EDT Patient calling said pharmacy has not kept up with her medication refills, they used to call her toremind her since has short term memory issues. She was also asking for generic Maxalt rx which she has not had for several years. Did not pend maxalt rx. Pending rx Please advise Patient has been identified by name and date of : Patient phones for refill(s): Requested Prescriptions Pending Prescriptions Disp Refills calcium carbonate 600 mg-cholecalciferol 400 units (CALCIUM 600 + D) 600 mg-10 mcg (400 unit) tab 30 tablet 12 Sig: Take 1 tablet by mouth once daily. ergocalciferol 50,000 unit capsule (VITAMIN D2, DRISDOL) 12 capsule 1 Sig: Take 1 capsule by mouth one time a week. folic acid 1 mg tablet 30 tablet 2 Sig: Take 1 tablet by mouth once daily. Take with breakfast magnesium oxide (MAG-OX) 400 mg (241.3 mg magnesium) tablet 30 tablet 1 Sig: Take 1 tablet by mouth once daily. Date of last office visit in primary care: 04/26/2023 Date of next office visit in primary care: 09/23/2023 Please advise. Thank you. Lexi Main LPN. [facility] Miscellaneous Notes* Telephone Encounter - Lexi Main LPN - 08/27/2023 3:00 PM EDT Patient calling said pharmacy has not kept up with her medication refills, they used to call her toremind her since has short term memory issues. She was also asking for generic Maxalt rx which she has not had for several years. Did not pend maxalt rx. Pending rx Please advise Patient has been identified by name and date of : Patient phones for refill(s): Requested Prescriptions Pending Prescriptions Disp Refills calcium carbonate 600 mg-cholecalciferol 400 units (CALCIUM 600 + D) 600 mg-10 mcg (400 unit) tab 30 tablet 12 Sig: Take 1 tablet by mouth once daily. ergocalciferol 50,000 unit capsule (VITAMIN D2, DRISDOL) 12 capsule 1 Sig: Take 1 capsule by mouth one time a week. folic acid 1 mg tablet 30 tablet 2 Sig: Take 1 tablet by mouth once daily. Take with breakfast magnesium oxide (MAG-OX) 400 mg (241.3 mg magnesium) tablet 30 tablet 1 Sig: Take 1 tablet by mouth once daily. Date of last office visit in primary care: 04/26/2023 Date of next office visit in primary care: 09/23/2023 Please advise. Thank you. Lexi Main LPN. documented in this encounterSelect [facility] [place]05-14-2024 Telephone encounter Note * Telephone Encounter - Cherry Suresh LPN - 08/27/2023 2:55 PM EDT Patient has been identified by name and date of : Yes Patient phones for refill(s): Requested Prescriptions Pending Prescriptions Disp Refills folic acid 1 mg tablet [Pharmacy Med Name: FOLIC ACID 1 MG TABLET] 90 tablet Sig: take 1 tablet by mouth once daily with breakfast Date of last office visit in primary care: 04/26/2023 Date of next office visit in primary care: 09/23/2023 Please advise. Thank you. Cherry Suresh LPN. [facility]-04-[facility] Miscellaneous Notes* Telephone Encounter - Greg Abrams MD - 07/18/2023 10:26 PM EDT The following approved medication requests have been transmitted electronically. Requested Prescriptions Pending Prescriptions Disp Refills rOPINIRole (REQUIP) 1 mg tablet [Pharmacy Med Name: ROPINIROLE HCL 1 MG TABLET] 30 tablet 5 Sig: take 1 tablet by mouth once daily Greg Abrams MD * Telephone Encounter - Cherry Suresh LPN - 07/18/2023 10:26 AM EDT Patient has been identified by name and date of : Yes Patient phones for refill(s): Requested Prescriptions Pending Prescriptions Disp Refills rOPINIRole (REQUIP) 1 mg tablet [Pharmacy Med Name: ROPINIROLE HCL 1 MG TABLET] 30 tablet 5 Sig: take 1 tablet by mouth once daily Date of last office visit in primary care: 04/26/2023 Date of next office visit in primary care: 09/23/2023 Please advise. Thank you. Cherry Suresh LPN. documented in this encounterSelect [facility] [place]03-25-2024 Instructions* Patient Instructions* Natasha Ray MD - 07/08/2023 2:37 PM EDT We are going to repeat an echocardiogram and fasting blood work documented in this encounterSelect [facility] [place]03-25-2024 History of Present illness Narrative* Natasha Ray MD - 07/08/2023 2:20 PM EDT Images from the original note were not included. [facility] Cardiology ([facility]) [address] [facility] [id number] OUTPATIENT VISIT DATE 07/08/2023 PRIMARY CARE PHYSICIAN: Lizbeth Pool [address] [place] [address] HISTORY OF PRESENT ILLNESS: Ms. Berg is a 67 year old woman with a history of SVT (likely atrial tachycardia), syncope due toorthostatic hypotension, hyperlipidemia and prior smoking who presents for routine follow-up. Patient is describing intermittent sharp stabbing chest pain. Is not affected by exertion. There is no associated nausea, shortness of breath, or diaphoresis. Usually lasts only a few minutes. She denies recurrent symptoms of palpitations. She has not had syncope or near syncope. Unfortunately, she continues to use nicotine in the form of vaping. PAST MEDICAL HISTORY Diagnosis Date Acute hepatitis C without mention of hepatic coma(070.51) negative RNA in 2016 Acute left ankle pain 12/18/2017 Acute pneumonia 01/15/2022 Anxiety state 05/29/2005 Dr. 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 Not on medications, not seeing neurology. 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 Choi-ID Prediabetes Psoriasis Rheumatoid arthritis involving multiple sites with positive rheumatoid factor (HCC) 12/13/[address] Bowden RLS (restless legs syndrome) 08/29/2011 Vasovagal syncope Vitamin D deficiency PAST SURGICAL HISTORY Procedure Laterality Date BACK SURGERY HX 09/27/2022 CHOLECYSTECTOMY [id number] lap COCHLEAR IMPLANT HX COLONOSCOPY FLX DX W/COLLJ SPEC WHEN PFRMD 10/11/2009 Colonoscopy COLONOSCOPY FLX DX W/COLLJ SPEC WHEN PFRMD 09/30/2018 Colonoscopy EGD EUS N/A 04/06/2020 diffusely dilated PD, suspected pancreas divisum, mild duodenitis ESOPHAGOGASTRODUODENOSCOPY TRANSORAL DIAGNOSTIC 09/30/2018 EGD IR VASCULAR ACCESS TEAM PICC INSERTION RADIO 02/08/2022 OPEN TREATMENT NASAL FRACTURE UNCOMPLICATED x2 no breathing problems PAST SURGICAL HISTORY OF X 2 PAST SURGICAL HISTORY OF FACIAL RECONSTRUCTION PAST SURGICAL HISTORY OF 1997 BILAT. SHOULDER SURGERY PAST SURGICAL HISTORY OF 1994 CERVICAL SPINE FUSION C4, C5 (had cervical fx x3 - even after repair) PAST SURGICAL HISTORY OF 1969 LEFT EAR CHOLESTEATOMA PAST SURGICAL HISTORY OF CLEFT LIP PAST SURGICAL HISTORY OF 02/2006 lasik PAST SURGICAL HISTORY OF 2004 bladder sling PAST SURGICAL HISTORY OF 08/09/2020 Upper endoscopy, percutaneous endoscopic gastrostomy (PEG) tube placed REMV CATARACT EXTRACAP,INSERT LENS Bilateral TRACHEOSTOMY EMERGENCY PROCEDURE TRANSTRACHEAL age 3 or 4 during surgery; lost airway SOCIAL HISTORY Social History Tobacco Use Smoking status: Former Packs/day: 1.00 Years: 30.00 Additional pack years: 0.00 Total pack years: 30.00 Types: Cigarettes Quit date: 06/02/2017 Years since quittin.1 Smokeless tobacco: Never Vaping Use Vaping Use: Never used Substance Use Topics Alcohol use: No Drug use: No Comment: IV DRUG USER FAMILY HISTORY Problem Relation Age of Onset Stroke Mother Hypertension Mother Diabetes Father Cancer Father melanoma Kidney transplant Father Cancer Sister thyroid Breast Cancer Sister Breast Cancer Sister Cancer Brother 21 testicular Breast Cancer Maternal Aunt Cancer Other S-cidlcw-Bloxmcbxzw ALLERGIES: ALLERGIES Allergen Reactions Acetaminophen Other: See Comments pt told not to take due to liver damage Bupropion Hcl Unknown Codeine Rash, Itching Darvon [Propoxyphen* Itching Daypro [Oxaprozin] Rash Effexor [Venlafaxin* Intolerance decreased libido Flexeril [Cyclobenz* GI Upset, Vomiting Gabapentin Mental Status Change hangover Ibuprofen Other: See Comments pt was told not to take due to kindey damage Stebbins [Hydrocodone-* GI Upset, Itching nausea, itching Oxybutynin Other: See Comments Urinary retention Pentazocine Itching Iberia Trees [Trees] rash Tramadol Intolerance MEDICATIONS: ORENCIA 125 mg/mL injection^INJECT THE CONTENTS OF 1 SYRINGE (125 MG) UNDER THE SKIN ONCE EACH WEEK^Disp: 4 mL^Rfl: 5 polyethylene glycol 3350 (MIRALAX) 17 gram/dose powder^Take 17 g by mouth two times a day as neededfor constipation.^Disp: 507 g^Rfl: 1 rsosby-thxtiusi-penttvn (CREON) 6,000-19,000 -30,000 unit delayed release capsule^Take 2 capsules by mouth with meals and at bedtime.^Disp: 240 capsule^Rfl: 0 rOPINIRole (REQUIP) 1 mg tablet^Take 1 tablet by mouth as directed.^Disp: 30 tablet^Rfl: 5 magnesium oxide (MAG-OX) 400 mg (241.3 mg magnesium) tablet^Take 1 tablet by mouth once daily.^Disp: 30 tablet^Rfl: 1 dicyclomine (BENTYL) 10 mg capsule^Take 1 capsule by mouth four times daily as needed. For abdominal pain.^Disp: 120 capsule^Rfl: 0 omega 7-wxm-jrr-fish oil 1,000 mg (250 mg-750 mg)/5 mL liqd^Take 1,000 mg by mouth once daily.^Disp: 90 mL^Rfl: 1 cyanocobalamin (VITAMIN B-12) 1,000 mcg tab^Take 1 tablet by mouth once daily.^Disp: 90 tablet^Rfl:3 ergocalciferol 50,000 unit capsule (VITAMIN D2, DRISDOL)^Take 1 capsule by mouth one time a week.^Disp: 12 capsule^Rfl: 1 folic acid 1 mg tablet^Take 1 tablet by mouth once daily. Take with breakfast^Disp: 30 tablet^Rfl: 2 calcium carbonate 600 mg-cholecalciferol 400 units (CALCIUM 600 + D) 600 mg-10 mcg (400 unit) tab^Take 1 tablet by mouth once daily.^Disp: 30 tablet^Rfl: 12 atorvastatin (LIPITOR) 40 mg tablet^Take 0.5 tablets by mouth daily at bedtime. For cholesterol.^Disp: 90 tablet^Rfl: 3 albuterol (PROVENTIL) 2.5 mg /3 mL (0.083 %) nebulizer solution^Use 3 mL via nebulizer every 4 hours as needed for wheezing/shortness of breath. Use over 5- 15minutes.^Disp: 3 mL^Rfl: 1 ALPRAZolam (XANAX) 1 mg tablet^Take 1 mg by mouth twice daily.^Disp: ^Rfl: QUEtiapine (SEROQUEL) 100 mg tablet^Take 2 tablets by mouth daily at bedtime.^Disp: 180 tablet^Rfl:1 iv contrast (will be provided with radiology test)^CT PANCREAS W Inject, intravenously, once for 1 dose.No IV access, insert saline lock prior to the beginning of sedation, infusion, injection of imaging exam. Discontinue saline lock post exam. If Pt. has a central line or IVAD, may access for administration according to line specific nursing protocol. Once exam is complete flush line and de-access according to line specific nursing protocol in the CT contrast administration guidelines link.^Disp: 1 Each^Rfl: 0 omega-3 fatty acids 1,000 mg cap^Take 2 capsules by mouth once daily.^Disp: 60 capsule^Rfl: 12 (Patient not taking: Reported on 04/26/2023) predniSONE (DELTASONE) 10 mg tablet^Take 2 tabs po BID for 2 days then 1 tab po BID for 2 days then1/2 tab po BID for 2 days then 1/2 tab daily for 2 days then stop^Disp: 15 tablet^Rfl: 0 (Patient not taking: Reported on 04/26/2023) budesonide-formoterol (SYMBICORT) 160-4.5 mcg/actuation inhaler^Inhale 2 Puffs as instructed twice daily.^Disp: 11 g^Rfl: 5 nicotine (NICOTROL) 10 mg inhaler^Inhale 1 Puff as instructed as needed.^Disp: 1 Each^Rfl: 1 Nebulizers^1 Each once daily.^Disp: 1 Each^Rfl: 0 Blood Pressure Monitor (BLOOD PRESSURE KIT)^1 Each once daily as needed. Dx: recurrent syncope R55^Disp: 1 Kit^Rfl: 0 REVIEW OF SYSTEMS: Review of Systems Constitutional: Negative for chills, fever, malaise/fatigue and weight loss. HENT: Negative for hearing loss and sore throat. Eyes: Negative for blurred vision and double vision. Respiratory: Negative. Cardiovascular: Negative. Gastrointestinal: Positive for abdominal pain, heartburn and nausea. Negative for blood in stool, constipation, diarrhea, melena and vomiting. Genitourinary: Negative for dysuria, frequency, hematuria and urgency. Musculoskeletal: Negative. Skin: Negative. Neurological: Negative for dizziness, seizures, loss of consciousness, weakness and headaches. Endo/Heme/Allergies: Negative for environmental allergies. Does not bruise/bleed easily. Psychiatric/Behavioral: Negative for depression. PHYSICAL EXAMINATION: BP 134/79 (BP Site: Right Arm, BP Position: Sitting, BP Cuff Size: Regular Adult) Pulse 78 [id number]% General: Thin somewhat cachectic woman sitting appears comfortable mildly anxious no apparent distress. HEENT: Carotid upstrokes are brisk bilaterally without bruits. No JVD appreciated. Pulmonary: Lungs are clear no rales, wheezes, rhonchi Cardiovascular: Normal S1, S2 with regular rate and rhythm. No murmurs, rubs, or gallops appreciated. Abdomen: Soft, flat, diminished bowel sounds. Place. No erythema. Extremities: Warm, well-perfused, no lower extremity edema. CARDIOVASCULAR MEDICINE TESTING: Lexiscan Myoview stress test 04/30/2018: CONCLUSIONS: 1. SPECT Perfusion Study: Normal. 2. There is no scintigraphic evidence for inducible ischemia. 3. No evidence of scarred myocardium. 4. Functional capacity N/A (pharmacological). 5. Left ventricle is normal in size. The left ventricle systolic function is hyperdynamic. 6. This is a low risk scan. Gated Stress FBP LVEF % 84 Echocardiogram 01/19/2022: - Technically difficult exam due to uncooperative patient and respiratory interference. - Exam indication: Abnormal ECG - The left ventricle is normal in size. There is no left ventricular hypertrophy. Left ventricular systolic function is normal. EF = 56 5% (3D) Grade I left ventricular diastolic dysfunction. - The right ventricle is normal in size. Right ventricular systolic function is normal. - No significant valve disease: Trivial AI, 1-2+ MR, trivial TR - The patient has not had a prior CC echocardiographic exam for comparison. Echocardiogram 04/22/2020: CONCLUSIONS: - Exam indication: Syncope - The left ventricle is normal in size. Left ventricular systolic function is normal. EF = 63 5% (2D biplane) Normal left ventricular diastolic function. - The right ventricle is normal in size. Right ventricular systolic function is normal. - There is LINDSAY at rest with an LVOT gradient of 3 mmHg. No change with valsalva. No evidence of significant outflow tract obstruction. - Exam was compared with the prior CC echocardiographic exam performed on 02/17/2013 (Stress). There has been no change. Extended Monitor 02/08/20-02/22/20: Patient had a min HR of 45 bpm, max HR of 182 bpm, and avg HR of 79bpm. Predominant underlying rhythm was Sinus Rhythm. 376 Supraventricular Tachycardia runs occurred, the run with the fastest interval lasting 4 beats with a max rate of 182 bpm, the longest lasting 2 mins 43 secs with an avg rate of 133 bpm. Supraventricular Tachycardia was detected within +/- 45 seconds of symptomatic patient event(s). Isolated SVEs were rare (<1.0%), SVE Couplets were rare (<1.0%), andSVE Triplets were rare (<1.0%). Isolated VEs were rare (<1.0%), and no VE Couplets or VE Triplets were present. Holter monitor 12/29/2019: IMPRESSIONS AND FINDINGS: Sinus rhythm Maximum HR-144 bpm, minimum HR-52 bpm. Average HR-79 bpm. Very rare SVEs were seen as singles. Runs of SVT / atrial tachycardia were present. Longest run 16 beats, 108 bpm, fastest run 7 beats, 112 bpm. One VE was seen as a single. No symptoms noted on patient diary. Patient event markers were not activated. Brief Interpretation ; Sinus rhythm ; Supraventricular ectopy ; atrial/supraventricular tachycardiarun(s) ; ventricular ectopic Carotid ultrasound 05/31/2022: IMPRESSION Compared to prior study of 05/15/2019, Unable to reproduce velocities in the right internal carotid artery of 40-59%. No change on the left. RIGHT SIDE Internal carotid artery: 20-39% stenosis. Vertebral artery: Patent and antegrade flow noted. High resistive signal suggests non-dominant vessel or more distal disease; clinical correlation is suggested. Innominate artery: Unable to visualize. LEFT SIDE Internal carotid artery: 20-39% stenosis. Vertebral artery: Patent and antegrade flow noted. Carotid ultrasound 05/15/2019: IMPRESSION RIGHT SIDE Internal carotid artery: 40-59% stenosis. Tortuous vessel from mid to distal . Degree of stenosis may be overestimated due to tortuosity at mid to distal vessel. Vertebral artery: Patent and antegrade flow noted. High resistive signal suggests non-dominant vessel or more distal disease; clinical correlation is suggested. Innominate artery: Unable to visualize. Subclavian artery: Unable to visualized origin. Proximal vessel is patent. LEFT SIDE Internal carotid artery: 20-39% stenosis. Vertebral artery: Patent and antegrade flow noted. CT chest without IV contrast 12/28/2019: Heart, pericardium, and thoracic vessels: The thoracic aorta and main pulmonary artery are normal in caliber. The cardiac chambers are normal in size. No coronary artery atherosclerotic calcifications are noted, although the study is not optimized for coronary assessment. No pericardial effusion orthickening. IMPRESSION: Ms. Berg is a 67 year old woman with multiple medical problems and syncope secondary to orthostatic hypotension. She has history of SVT likely atrial tachycardia with associated feelings of palpitations. Her risk factors for coronary disease include a longstanding history of smoking, known carotid artery disease, and dyslipidemia. She had a low risk stress test completed in 2019. PLAN AND RECOMMENDATIONS: 1. Other chest pain - ICD9: 786.59, ICD10: R07.89 (primary diagnosis) Atypical chest pain symptoms in a patient with multiple risk factors for coronary disease. I have scheduled her for a 2D echocardiogram. May consider repeat ischemic evaluation. - COMP METABOLIC PANEL - CBC - ECHO - PERFLUTREN LIPID MICROSPHERES 1.1 MG/ML INJECTION IN NS 10 ML - SODIUM CHLORIDE 0.9 % (FLUSH) INJECTION SYRINGE 2. Palpitations - ICD9: 785.1, ICD10: R00.2 Asymptomatic since last visit - ECG COMPLETE 3. Primary hypertension - ICD9: 401.9, ICD10: I10 Well-controlled on current regimen - ECG COMPLETE 4. Orthostatic hypotension - ICD9: 458.0, ICD10: I95.1 5. Nicotine use disorder - ICD9: 305.1, ICD10: F17.200 - Cessation encouraged. - Physiologic and physical aspects of tobacco addiction as well as strategies for quitting were discussed. - Counseling was given focusing on the harmful effects of this addiction especially given the patient's medical condition(s) which will be worsened because of the chemicals in tobacco. 6. Hyperlipidemia, unspecified hyperlipidemia type - ICD9: 272.4, ICD10: E78.5 Maintained on Lipitor 40 mg daily. Repeat fasting blood work - ECG COMPLETE - LIPID PANEL BASIC - COMP METABOLIC PANEL 7. Bilateral carotid artery stenosis - ICD9: 433.10, 433.30, ICD10: I65.23 Last carotid ultrasound May 2022. No symptoms concerning for TIA or CVA. 8. Vasovagal syncope - ICD9: 780.2, ICD10: R55 Natasha Ray MD documented in [facility] encounter[facility] [place] Miscellaneous Notes* Telephone Encounter - Alejandra Sheth OCCA - 06/24/2023 8:29 AM EDT Most recent Rheumatology visit: 11/29/2021 (with Deloris Juarez) Rheumatology Care Team: None on file Recent Office Visits - This Specialty 11/29/2021 Inflammatory arthritis Rheumatology Deloris Juarez APRN.[employer] [employer] 01/12/2019 Rheumatoid arthritis involving multiple sites with positive rheumatoid factor (HCC) Rheumatology Deloris Juarez APRN.CNP 07/03/2018 Rheumatoid arthritis involving multiple sites with positive rheumatoid factor (HCC) Rheumatology Mary Ellen Glasgow (C[employer] Machine Operator)(Hist) Upcoming Rheumatology Appointments - Next 365 Days No appointments to display CBC: None on file in the last 6 months Vitamin D: None on file in the last 6 months LFT: CMP Latest Ref Rng & Units 05/02/2022 05/27/2023 SODIUM 136 - 144 mmol/L 143 139 SODIUM, FRANCESCA 132 - 148 mmol/L - - SODIUM, FRANCESCA 132 - 148 mmol/L - - POTASSIUM 3.7 - 5.1 mmol/L 4.5 3.4(L) POTASSIUM, FRANCESCA 3.5 - 5.0 mmol/L - - CHLORIDE 97 - 105 mmol/L 108(H) 102 CHLORIDE, FRANCESCA 98 - 110 mmol/L - - CO2 22 - 30 mmol/L 24 24 CO2, FRANCESCA 23.0 - 32.0 mmol/L - - GLUCOSE 74 - 99 mg/dL 78 106(H) GLUCOSE (U), FRANCESCA NEGAT mg/dL - - GLUCOSE, FRANCESCA 65 - 100 mg/dL - - BUN 7 - 21 mg/dL 20 12 BUN, FRANCESCA 10 - 25 mg/dL - - CREATININE 0.58 - 0.96 mg/dL 0.81 0.84 CREATININE, FRANCESCA 0.7 - 1.4 mg/dL - - CALCIUM, FRANCESCA 8.5 - 10.5 mg/dL - - CALCIUM, TOTAL 8.5 - 10.2 mg/dL 9.7 10.8(H) AST 13 - 35 U/L 35 102(H) AST, FRANCESCA 7 - 40 U/L - - ALT 7 - 38 U/L 25 68(H) ALT, FRANCESCA 0 - 45 U/L - - ALKALINE PHOSPHATASE 34 - 123 U/L 76 80 Hepatic Function: Creatinine: Creatinine Latest Ref Rng & Units 05/02/2022 05/27/2023 CREAT 0.58 - 0.96 mg/dL 0.81 0.84 ESR/CRP: None on file in the last 6 months Uric Acid: None on file in the last 6 months Open Standing (Multiple Instance) Lab Orders None Open Future (Single Instance) Lab Orders None documented in this encounterSelect [facility] [place]24 NoteHNO ID: [id number] Author: JOAN LOUIS MD Service: ? Author Type: Physician Type: Progress Notes Filed: 06/20/2023 13:51 Note Text: VIRTUAL VISIT PROGRESS NOTE This is a virtual visit using Audio Only Visit. It required patient-provider interaction for the medical decision making as documented below. I have communicated my name and active licensure. The patient's identity and physical location were verified at the time of this visit. Either the patient or their legal ambulatory services representative has been informed of the risks and benefits of -- and alternatives to -- treatment through a remote evaluation and consents to proceed with the evaluation remotely. David Berg is a 67 year old female seen for evaluation of EtOH pancreatitis. She also has pancreatic divisum. Her pancreatitis was previously managed with a minor sphincterotomy and stent x2, both of which were complicated by a duodenal perforation managed conservatively. She got no relief from either of these procedures when the stent was in place. I saw her in April when she was looking for new ways to treat her pancreatitis. Since then, she has continued to have abdominal pain that is intermittent. The only thing that relieves it is standing up and bending over. She says she does not drink alcohol at all, but she does smoke a nicotine pen. She had a CT scan that shows pancreas divisum with main duct dilation that is stable with no acute inflammatory changes. Discussed her lab results including her PeTH level, which was 418, indicating heavly or chronic alcohol consumption. She continued to deny any alcohol intake. HISTORY REVIEWED (electronic chart updated): PAST MEDICAL HISTORY Diagnosis Date Acute hepatitis C without mention of hepatic coma(070.51) negative RNA in 2015 Acute left ankle pain 12/18/2017 Acute pneumonia 01/15/2022 Anxiety state 05/29/2005 Dr. 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 Not on medications, not seeing neurology. 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 Choi-ID Prediabetes Psoriasis Rheumatoid arthritis involving multiple sites with positive rheumatoid factor (HCC) 12/13/[address] Bowden RLS (restless legs syndrome) 08/29/2011 Vasovagal syncope Vitamin D deficiency PAST SURGICAL HISTORY Procedure Laterality Date BACK SURGERY HX 09/27/2022 CHOLECYSTECTOMY [id number] lap COCHLEAR IMPLANT HX COLONOSCOPY FLX DX W/COLLJ SPEC WHEN PFRMD 10/11/2009 Colonoscopy COLONOSCOPY FLX DX W/COLLJ SPEC WHEN PFRMD 09/30/2018 Colonoscopy EGD EUS N/A 04/06/2020 diffusely dilated PD, suspected pancreas divisum, mild duodenitis ESOPHAGOGASTRODUODENOSCOPY TRANSORAL DIAGNOSTIC 09/30/2018 EGD IR VASCULAR ACCESS TEAM PICC INSERTION RADIO 02/08/2022 OPEN TREATMENT NASAL FRACTURE UNCOMPLICATED x2 no breathing problems PAST SURGICAL HISTORY OF X 2 PAST SURGICAL HISTORY OF FACIAL RECONSTRUCTION PAST SURGICAL HISTORY OF 1997 BILAT. SHOULDER SURGERY PAST SURGICAL HISTORY OF 1994 CERVICAL SPINE FUSION C4, C5 (had cervical fx x3 - even after repair) PAST SURGICAL HISTORY OF 1969 LEFT EAR CHOLESTEATOMA PAST SURGICAL HISTORY OF CLEFT LIP PAST SURGICAL HISTORY OF 02/2006 lasik PAST SURGICAL HISTORY OF 2004 bladder sling PAST SURGICAL HISTORY OF 08/09/2020 Upper endoscopy, percutaneous endoscopic gastrostomy (PEG) tube placed REMV CATARACT EXTRACAP,INSERT LENS Bilateral TRACHEOSTOMY EMERGENCY PROCEDURE TRANSTRACHEAL age 3 or 4 during surgery; lost airway FAMILY HISTORY Problem Relation Age of Onset Stroke Mother Hypertension Mother Diabetes Father Cancer Father melanoma Kidney transplant Father Cancer Sister thyroid Breast Cancer Sister Breast Cancer Sister Cancer Brother 21 (more content not included)...[facility]03-04-2024 History of Present illness Narrative* Joan Louis MD - 06/17/2023 4:08 PM EST VIRTUAL VISIT PROGRESS NOTE This is a virtual visit using Audio Only Visit. It required patient-provider interaction for the medical decision making as documented below. I have communicated my name and active licensure. The patient's identity and physical location wereverified at the time of this visit. Either the patient or their legal ambulatory services representative has been informed of the risks and benefits of -- and alternatives to -- treatment through a remote evaluation andconsents to proceed with the evaluation remotely. David Berg is a 67 year old female seen for evaluation of EtOH pancreatitis. She also has pancreatic divisum. Her pancreatitis was previously managed with a minor sphincterotomy and stent x2, both of which were complicated by a duodenal perforation managed conservatively. She got no relief fromeither of these procedures when the stent was in place. I saw her in April when she was looking for new ways to treat her pancreatitis. Since then, she has continued to have abdominal pain that is intermittent. The only thing that relieves it is standing up and bending over. She says she does notdrink alcohol at all, but she does smoke a nicotine pen. She had a CT scan that shows pancreas divisum with main duct dilation that is stable with no acute inflammatory changes. Discussed her lab results including her PeTH level, which was 418, indicating heavly or chronic alcohol consumption. She continued to deny any alcohol intake. HISTORY REVIEWED (electronic chart updated): PAST MEDICAL HISTORY Diagnosis Date Acute hepatitis C without mention of hepatic coma(070.51) negative RNA in 2015 Acute left ankle pain 12/18/2017 Acute pneumonia 01/15/2022 Anxiety state 05/29/2005 Dr. 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 Not on medications, not seeing neurology. 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 Choi-ID Prediabetes Psoriasis Rheumatoid arthritis involving multiple sites with positive rheumatoid factor (HCC) 12/13/[address] Bowden RLS (restless legs syndrome) 08/29/2011 Vasovagal syncope Vitamin D deficiency PAST SURGICAL HISTORY Procedure Laterality Date BACK SURGERY HX 09/27/2022 CHOLECYSTECTOMY [id number] lap COCHLEAR IMPLANT HX COLONOSCOPY FLX DX W/COLLJ SPEC WHEN PFRMD 10/11/2009 Colonoscopy COLONOSCOPY FLX DX W/COLLJ SPEC WHEN PFRMD 09/30/2018 Colonoscopy EGD EUS N/A 04/06/2020 diffusely dilated PD, suspected pancreas divisum, mild duodenitis ESOPHAGOGASTRODUODENOSCOPY TRANSORAL DIAGNOSTIC 09/30/2018 EGD IR VASCULAR ACCESS TEAM PICC INSERTION RADIO 02/08/2022 OPEN TREATMENT NASAL FRACTURE UNCOMPLICATED x2 no breathing problems PAST SURGICAL HISTORY OF X 2 PAST SURGICAL HISTORY OF FACIAL RECONSTRUCTION PAST SURGICAL HISTORY OF 1997 BILAT. SHOULDER SURGERY PAST SURGICAL HISTORY OF 1994 CERVICAL SPINE FUSION C4, C5 (had cervical fx x3 - even after repair) PAST SURGICAL HISTORY OF 1969 LEFT EAR CHOLESTEATOMA PAST SURGICAL HISTORY OF CLEFT LIP PAST SURGICAL HISTORY OF 02/2006 lasik PAST SURGICAL HISTORY OF 2004 bladder sling PAST SURGICAL HISTORY OF 08/09/2020 Upper endoscopy, percutaneous endoscopic gastrostomy (PEG) tube placed REMV CATARACT EXTRACAP,INSERT LENS Bilateral TRACHEOSTOMY EMERGENCY PROCEDURE TRANSTRACHEAL age 3 or 4 during surgery; lost airway FAMILY HISTORY Problem Relation Age of Onset Stroke Mother Hypertension Mother Diabetes Father Cancer Father melanoma Kidney transplant Father Cancer Sister thyroid Breast Cancer Sister Breast Cancer Sister Cancer Brother 21 testicular Breast Cancer Maternal Aunt Cancer Other X-skzwcg-Qlbnlpiyzv Social History Tobacco Use Smoking status: Former Packs/day: 1.00 Years: 30.00 Additional pack years: 0.00 Total pack years: 30.00 Types: Cigarettes Quit date: 06/02/2017 Years since quittin.0 Smokeless tobacco: Never Vaping Use Vaping Use: Never used Substance Use Topics Alcohol use: No Drug use: No Comment: IV DRUG USER Current Outpatient Medications Medication Sig iv contrast (will be provided with radiology test) CT PANCREAS W Inject, intravenously, once for 1 dose.No IV access, insert saline lock prior to the beginning of sedation, infusion, injection of imaging exam. Discontinue saline lock post exam. If Pt. has a central line or IVAD, may access for administration according to line specific nursing protocol. Once exam is complete flush line and de-access according to line specific nursing protocol in the CT contrast administration guidelines link. polyethylene glycol 3350 (MIRALAX) 17 gram/dose powder Take 17 g by mouth two times a day as neededfor constipation. lgvhtr-jirjvcum-zwemhsk (CREON) 6,000-19,000 -30,000 unit delayed release capsule Take 2 capsules by mouth with meals and at bedtime. rOPINIRole (REQUIP) 1 mg tablet Take 1 tablet by mouth as directed. ORENCIA 125 mg/mL INJECT THE CONTENTS OF 1 SYRINGE (125 MG) UNDER THE SKIN ONCE EACH WEEK magnesium oxide (MAG-OX) 400 mg (241.3 mg magnesium) tablet Take 1 tablet by mouth once daily. omega-3 fatty acids 1,000 mg cap Take 2 capsules by mouth once daily. (Patient not taking: Reportedon 04/26/2023) dicyclomine (BENTYL) 10 mg capsule Take 1 capsule by mouth four times daily as needed. For abdominal pain. omega 8-mid-qti-fish oil 1,000 mg (250 mg-750 mg)/5 mL liqd Take 1,000 mg by mouth once daily. cyanocobalamin (VITAMIN B-12) 1,000 mcg tab Take 1 tablet by mouth once daily. ergocalciferol 50,000 unit capsule (VITAMIN D2, DRISDOL) Take 1 capsule by mouth one time a week. folic acid 1 mg tablet Take 1 tablet by mouth once daily. Take with breakfast predniSONE (DELTASONE) 10 mg tablet Take 2 tabs po BID for 2 days then 1 tab po BID for 2 days then1/2 tab po BID for 2 days then 1/2 tab daily for 2 days then stop (Patient not taking: Reported on 04/26/2023) budesonide-formoterol (SYMBICORT) 160-4.5 mcg/actuation inhaler Inhale 2 Puffs as instructed twice daily. nicotine (NICOTROL) 10 mg inhaler Inhale 1 Puff as instructed as needed. calcium carbonate 600 mg-cholecalciferol 400 units (CALCIUM 600 + D) 600 mg-10 mcg (400 unit) tab Take 1 tablet by mouth once daily. atorvastatin (LIPITOR) 40 mg tablet Take 0.5 tablets by mouth daily at bedtime. For cholesterol. Nebulizers 1 Each once daily. albuterol (PROVENTIL) 2.5 mg /3 mL (0.083 %) nebulizer solution Use 3 mL via nebulizer every 4 hours as needed for wheezing/shortness of breath. Use over 5-15minutes. Blood Pressure Monitor (BLOOD PRESSURE KIT) 1 Each once daily as needed. Dx: recurrent syncope R55 ALPRAZolam (XANAX) 1 mg tablet Take 1 mg by mouth twice daily. QUEtiapine (SEROQUEL) 100 mg tablet Take 2 tablets by mouth daily at bedtime. Current Facility-Administered Medications Medication Dose Route Frequency Adult Home Parenteral Nutrition 3:1 INTRAVENOUS DAILY ALLERGIES Allergen Reactions Acetaminophen Other: See Comments pt told not to take due to liver damage Bupropion Hcl Unknown Codeine Rash, Itching Darvon [Propoxyphen* Itching Daypro [Oxaprozin] Rash Effexor [Venlafaxin* Intolerance decreased libido Flexeril [Cyclobenz* GI Upset, Vomiting Gabapentin Mental Status Change hangover Ibuprofen Other: See Comments pt was told not to take due to kindey damage Stebbins [Hydrocodone-* GI Upset, Itching nausea, itching Oxybutynin Other: See Comments Urinary retention Pentazocine Itching Iberia Trees [Trees] rash Tramadol Intolerance PHYSICAL EXAMINATION: VIDEO EXAM: (if completed, performed via video enabled technology) No exam performed ASSESSMENT: 67 year old female with pancreas divisum and EtOH pancreatitis who presented for pain management options. Still drinking based on PETH, though she denies. She sees [facility] for back injections, and would benefit from their expertise regarding her pancreatitis pain as well.No surgical or procedural options for her pancreatitis at this point given the lack of success of the PD stent and ongoing drinking making her not a surgical candidate for a pancreatitis related surgery. PLAN: --Referral to [facility] for pancreatitis pain management --Follow-up with me PRN There are no Patient Instructions on file for this visit. Joan Louis MD documented in this encounterCleveland [id number] History of Present illness Narrative* Jody Barahona RT(R) - 05/28/2023 9:20 AM EST Radiology Service Progress Note DATE OF SERVICE: May 28, 2023 TIME: 2:49 PM PATIENT IDENTITY VERIFICATION COMPLETED USING TWO (2) STANDARD IDENTIFIERS: Name and Date of confirmed by patient verbally. FALL SCREENING: Has the patient had 2 falls in the last year or 1 fall with injury or currently using an Ambulatory Assistive Device (Walker, Cane, Wheelchair, Crutches, etc.)? No PATIENT GENDER DATA: Female. status: : No status: NO. PATIENT RELEVANT IMPLANT DATA REVIEWED: Yes PATIENT PRESENTS WITH AN IMPLANTABLE OR ATTACHED DURABLE MEDICAL EQUIPMENT REPAIRER: No ALLERGIES: Reviewed and unchanged CONTRAST ALLERGY: NO. EXAM: CT -CONTRAST INDUCED NEPHROPATHY RISK FACTORS: Patient age > 60 years CREATININE: Creatinine Date Value Ref Range Status 05/27/2023 0.84 0.58 - 0.96 mg/dL Final 05/02/2022 0.81 0.58 - 0.96 mg/dL Final 02/27/2022 0.73 0.58 - 0.96 mg/dL Final Estimated Glomerular Filtration Rate Date Value Ref Range Status 05/27/2023 77 >=60 mL/min/1.73m Final Comment: Estimated Glomerular Filtration Rate (eGFR) is calculated using the 2020 CKD-EPI creatinine equation. This equation utilizes serum creatinine, sex, and age as parameters. The creatinine assay has traceable calibration to isotope dilution- mass spectrometry. Refer to KDIGO guidelines for clinical interpretation. In patients with unstable renal function, e.g. those with acute kidney injury, the eGFRmay not accurately reflect actual GFR. eGFR- Date Value Ref Range Status 02/10/2021 >60 Final P.O.C.T. RESULTS: POC done: Yes, See Lab Tab May 28, 2023 TREATMENT: N/A PERIPHERAL IV DATA: Ambulatory: A peripheral IV was started in the Left antecubital site with a Angio cath: 20 gauge. RADIOLOGY DEPARTMENT: CT; Exam(s) Completed: Pancreas SIGNATURE: RT Sobia(R) PATIENT NAME: David Berg DATE: May 28, 2023 TIME: 2:49 PM documented in this encounterSelect [facility] [place]-29-2024 NoteHNO ID: [id number] Author: JOAN LOUIS MD Service: ? Author Type: Physician Type: Progress Notes Filed: 05/13/2023 16:13 Note Text: [facility] SURGERY HANDP Subjective CHIEF COMPLAINT: Recurrent pancreatitis, pancreatic divisum, pancreatic duct stricture HISTORY OF PRESENT ILLNESS: Ms. Berg is a 67 year old female who presents for recurrent pancreatitis. She was initially a patient of Dr. Esparza. Her first episode of pancreatitis was late 2019. She has been hospitalized 3 or 4 times for pancreatitis and also intermittently had flares that she managed at home. She was diagnosed with pancreatic divisum. TG normal, IgG4 not checked. She underwent lap kayleigh with Dr. Esparza in 05/2020. No cholangiogram was performed at the time. She also has steatorrhea and severe protein calorie malnutrition. She previously had a PEG placed 07/2020, but did not tolerate TF so it was removed. She has had two ERCPs with pancreatic duct stent placement, both of which were complicated by duodenal perforation which was managed conservatively. She was also on TPN for a period of time. She is on Creon and notices symptoms of exocrine insufficiency if she doesn't take it. She does not have diabetes. She was last seen by Dr. Esparza in 02/2022 after her admission for most recent duodenal perforation after ERCP, and at this time was where she was doing well. She did not have abdominal pain and was eating and gaining weight without the need for tube feeds or TPN. At that time, the plan was to monitor her clinically since her symptoms were better and she was eating, and if her symptoms worsen, to return to clinic to discuss surgical options. She is here today to find out if there are new treatment options or clinical trials available since it has been over a year since she saw Dr. Esparza. She has had increasing severity of her pain and also having symptoms more frequently. She is afraid to leave her house in case she has bad pain. She takes Advil for pain and is not on chronic narcotics. She is eating well and her weight has been stable. She is not particularly interested in having surgery, but wants something to help her with the pain. She had a cholecystectomy and two back surgeries. She does not drink alcohol and uses a nicotine pen to smoke. She quit cigarettes in 2018. She has a cousin who had pancreatic cancer and multiple family members with melanoma and breast cancer. No family history of pancreatitis. PAST MEDICAL HISTORY Diagnosis Date Acute hepatitis C without mention of hepatic coma(070.51) negative RNA in 2015 Acute left ankle pain 12/18/2017 Acute pneumonia 01/15/2022 Anxiety state 05/29/2005 Dr. 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 Not on medications, not seeing neurology. 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 Choi-ID Prediabetes Psoriasis Rheumatoid arthritis involving multiple sites with positive rheumatoid factor (HCC) 12/13/[address] Bowden RLS (restless legs syndrome) 08/29/2011 Vasovagal syncope Vitamin D deficiency PAST SURGICAL HISTORY Procedure Laterality Date BACK SURGERY HX 09/27/2022 CHOLECYSTECTOMY 955871 lap COCHLEAR IMPLANT HX COLONOSCOPY FLX DX W/COLLJ SPEC WHEN PFRMD 10/11/2009 Colonoscopy COLONOSCOPY FLX DX W/COLLJ SPEC WHEN PFRMD 09/30/2018 Colonoscopy EGD EUS N/A 04/06/2020 diffusely dilated PD, suspected pancreas divisum, mild duodenitis ESOPHAGOGASTRODUODENOSCOPY TRANSORAL DIAGNOSTIC 09/30/2018 EGD IR VASCULAR ACCESS TEAM PICC INSERTION RADIO 02/08/2022 OPEN TREATMENT NASAL FRACTURE UNCOMPLICATED x2 no breathing problems PAST SURGICAL HISTORY OF X 2 PAST SURGICAL HISTORY OF FACIAL RECONSTRUCTION PAST SURGICAL HISTORY OF 1997 BILA (more content not included)...[facility]10-04-2023 Miscellaneous Notes* Telephone Encounter - Julia Causey - 01/16/2023 2:55 PM EDT Patient has been identified by name and date of : Yes Last office visit in this department: 08/27/2022 RX INSTRUCTIONS: Patient aware RX will be sent to pharmacy. No need to notify patient. Patient phones requesting refills as follows: Requested Prescriptions Pending Prescriptions Disp Refills rOPINIRole (REQUIP) 1 mg tablet Sig: Take by mouth as directed. Please review and advise. Julia Allison documented in this encounterSelect Medical Specialty [facility] [place]08-15-2023 Miscellaneous Notes* Telephone Encounter - Thuy Oconnor - 11/27/2022 2:27 PM EDT 12/13/2022 COLON LODI documented in this encounterSelect Medical Specialty [facility] [place]08-15-2023 History of Present illness Narrative* Linda Rabago PA-C - 11/27/2022 1:12 PM EDT HISTORY AND PHYSICAL David Velazquez [place] 1955 REFERRING PHYSICIAN: Greg Abrams MD CHIEF COMPLAINT: Consult (colonoscopy) HPI: The patient is a 67 year old female referred for endoscopy. David notes bright red blood with bowel movements, irregularity of bowel habits, as well as lower abdominal discomfort. Patient deniesany weight changes or black tarry stools. Denies family history of colon issues. The patient notes no upper GI complaints. David has undergone prior endoscopy. Last colonoscopy [address] Griffith without concerning findings. PAST MEDICAL HISTORY Diagnosis Date Acute hepatitis C without mention of hepatic coma(070.51) negative RNA in 2016 Acute left ankle pain 12/18/2017 Acute pneumonia 01/15/2022 Anxiety state 05/29/2005 Dr. 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 Not on medications, not seeing neurology. 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 Choi-ID Prediabetes Psoriasis Rheumatoid arthritis involving multiple sites with positive rheumatoid factor (HCC) 12/13/[address] Bowden RLS (restless legs syndrome) 08/29/2011 Vasovagal syncope Vitamin D deficiency PAST SURGICAL HISTORY Procedure Laterality Date BACK SURGERY HX 09/27/2022 CHOLECYSTECTOMY [id number] lap COCHLEAR IMPLANT HX COLONOSCOPY FLX DX W/COLLJ SPEC WHEN PFRMD 10/11/2009 Colonoscopy COLONOSCOPY FLX DX W/COLLJ SPEC WHEN PFRMD 09/30/2018 Colonoscopy EGD EUS N/A 04/06/2020 diffusely dilated PD, suspected pancreas divisum, mild duodenitis ESOPHAGOGASTRODUODENOSCOPY TRANSORAL DIAGNOSTIC 09/30/2018 EGD IR VASCULAR ACCESS TEAM PICC INSERTION RADIO 02/08/2022 OPEN TREATMENT NASAL FRACTURE UNCOMPLICATED x2 no breathing problems PAST SURGICAL HISTORY OF X 2 PAST SURGICAL HISTORY OF FACIAL RECONSTRUCTION PAST SURGICAL HISTORY OF 1997 BILAT. SHOULDER SURGERY PAST SURGICAL HISTORY OF 1994 CERVICAL SPINE FUSION C4, C5 (had cervical fx x3 - even after repair) PAST SURGICAL HISTORY OF 1969 LEFT EAR CHOLESTEATOMA PAST SURGICAL HISTORY OF CLEFT LIP PAST SURGICAL HISTORY OF 02/2006 lasik PAST SURGICAL HISTORY OF 2004 bladder sling PAST SURGICAL HISTORY OF 08/09/2020 Upper endoscopy, percutaneous endoscopic gastrostomy (PEG) tube placed REMV CATARACT EXTRACAP,INSERT LENS Bilateral TRACHEOSTOMY EMERGENCY PROCEDURE TRANSTRACHEAL age 3 or 4 during surgery; lost airway Current Outpatient Medications Medication Sig magnesium oxide (MAG-OX) 400 mg (241.3 mg magnesium) tablet Take 1 tablet by mouth once daily. omega-3 fatty acids 1,000 mg cap Take 2 capsules by mouth once daily. dicyclomine (BENTYL) 10 mg capsule Take 1 capsule by mouth four times daily as needed. For abdominal pain. omega 4-ldc-mjt-fish oil 1,000 mg (250 mg-750 mg)/5 mL liqd Take 1,000 mg by mouth once daily. cyanocobalamin (VITAMIN B-12) 1,000 mcg tab Take 1 tablet by mouth once daily. ergocalciferol 50,000 unit capsule (VITAMIN D2, DRISDOL) Take 1 capsule by mouth one time a week. folic acid 1 mg tablet Take 1 tablet by mouth once daily. Take with breakfast predniSONE (DELTASONE) 10 mg tablet Take 2 tabs po BID for 2 days then 1 tab po BID for 2 days then1/2 tab po BID for 2 days then 1/2 tab daily for 2 days then stop abatacept (ORENCIA) 125 mg/mL INJECT THE CONTENTS OF 1 SYRINGE (125 MG) UNDER THE SKIN ONCE EACH WEEK rOPINIRole (REQUIP) 1 mg tablet Take by mouth as directed. polyethylene glycol 3350 (MIRALAX) 17 gram/dose powder Take 17 g by mouth twice daily as needed forconstipation. budesonide-formoterol (SYMBICORT) 160-4.5 mcg/actuation inhaler Inhale 2 Puffs as instructed twice daily. nicotine (NICOTROL) 10 mg inhaler Inhale 1 Puff as instructed as needed. calcium carbonate 600 mg-cholecalciferol 400 units (CALCIUM 600 + D) 600 mg-10 mcg (400 unit) tab Take 1 tablet by mouth once daily. agpfgu-sxsaslve-vtklqmo (CREON) 6,000-19,000 -30,000 unit delayed release capsule Take 2 capsules by mouth with meals and at bedtime. atorvastatin (LIPITOR) 40 mg tablet Take 0.5 tablets by mouth daily at bedtime. For cholesterol. Nebulizers 1 Each once daily. albuterol (PROVENTIL) 2.5 mg /3 mL (0.083 %) nebulizer solution Use 3 mL via nebulizer every 4 hours as needed for wheezing/shortness of breath. Use over 5-15minutes. Blood Pressure Monitor (BLOOD PRESSURE KIT) 1 Each once daily as needed. Dx: recurrent syncope R55 ALPRAZolam (XANAX) 1 mg tablet Take 1 mg by mouth twice daily. QUEtiapine (SEROQUEL) 100 mg tablet Take 2 tablets by mouth daily at bedtime. Current Facility-Administered Medications Medication Dose Route Frequency Adult Home Parenteral Nutrition 3:1 INTRAVENOUS DAILY ALLERGIES: Acetaminophen, Bupropion Hcl, Codeine, Darvon [Propoxyphene], Daypro [Oxaprozin], Effexor [Venlafaxine Hcl], Flexeril [Cyclobenzaprine Hcl], Gabapentin, Ibuprofen, Stebbins [Hydrocodone-Acetaminophen], Oxybutynin, Pentazocine, Iberia Trees [Trees], and Tramadol PERSONAL HISTORY: Social History Tobacco Use Smoking status: Former Packs/day: 1.00 Years: 30.00 Additional pack years: 0.00 Total pack years: 30.00 Types: Cigarettes Quit date: 06/02/2017 Years since quittin.4 Smokeless tobacco: Never Vaping Use Vaping Use: Never used Substance Use Topics Alcohol use: No Drug use: No Comment: IV DRUG USER FAMILY HISTORY: FAMILY HISTORY Problem Relation Age of Onset Stroke Mother Hypertension Mother Diabetes Father Cancer Father melanoma Kidney transplant Father Cancer Sister thyroid Breast Cancer Sister Breast Cancer Sister Cancer Brother 21 testicular Breast Cancer Maternal Aunt Cancer Other [id number] REVIEW OF SYMPTOMS: The review of systems data was entered by the nurse and reviewed by ar Nursing Notes: Krystal Talavera LPN 11/27/2022 1:03 PM Signed REVIEW OF SYSTEMS: General: The patient notes fatigue, denies weight loss, notes weight gain, denies feeling hot, and denies feelings of cold. Eyes: The patient denies glaucoma, denies eye injury/surgery, does not wear glasses or contacts. Ear/Nose/Throat: The patient denies allergies, denies hayfever, denies ear infections, and denies bloody noses. Cardiovascular: The patient denies chest pain, denies heart disease, denies high blood pressure,denies cardiac stent, denies prior heart attack, denies irregular heart beat, denies high cholesterol, denies poor circulation, denies heart failure, other cardiac issues, denies claudication, denies cold feet, denies peripheral arterial stent. Respiratory: The patient denies tuberculosis, denies pneumonia, denies frequent cough, denies pulmonary embolism, denies shortness of breath, and denies coughing up blood, notes COPD. Gastrointestinal: The patient denies difficulty swallowing, denies acid reflux, denies ulcers, denies vomiting, denies jaundice/hepatitis, denies gallbladder problems, denies black or tarry stools, notes hemorrhoids, notes bleeding from rectum, denies diverticulitis, notes constipation, notes diarrhea, denies loss of stool control, and denies hernias. Kidney/Bladder: The patient denies kidney stones, notes kidney failure, denies urine infections, and denies bloody urine. Skin: The patient denies a history of skin cancer, denies bleeding/changing moles, and denies a history of skin rash. Neurologic: The patient denies a history of epilepsy/convulsions, notes headaches, notes head/spinal injuries, and denies stroke/TIA. Psychiatric: The patient denies psychiatric medications, denies depression, and denies voices, denies substance abuse. Endocrine: The patient denies thyroid disorders, denies diabetes, and denies hormonal problems. Hematologic: The patient notes a history of bruising, denies bleeding, and denies anemia, denies blood clots. Infections: The patient notes a history of measles and mumps, denies rheumatic fever, and denies sexually transmitted diseases. Musculoskeletal: The patient notes back pain/injury, notes back problems, denies sciatica, notes knee/foot trouble, notes arthritis, or denies gout. When was patient's last Mammogram screening? 2022 Last Colonoscopy: over 10 years ago Krystal Talavera LPN Correction to above-had colonoscopy in 2019 at [facility] by Dr. Griffith listed under Notes/transcriptions tab in Epic I have confirmed and edited as necessary, the PFSH and ROS obtained by others. Linda Rabago PA-C PHYSICAL EXAMINATION: General: The patient is 67 year old female, well nourished, well hydrated in no acute distress. Thepatient is oriented to time, place, and person. VITALS: Blood pressure 142/98, pulse 98, temperature 36.6 C (97.9 F), height 162.6 cm (5' 4), weight 65.5 kg (144 lb 6.4 oz), SpO2 99 %. Body mass index is 24.79 kg/m . HEENT: Normal cephalic, ataumatic, pupils are equally round, sclera are anicteric, mucous membranesare moist, oropharynx is clear. Neck has no masses, asymmetry or lymphadenopathy. Respiratory: Clear to auscultation and percussion. Normal respiratory excursion and pattern. Cardiac: Examination is regular rate and rhythm. Normal S1/S2 Abdominal exam: Soft, nontender, with no palpable masses. No hepatosplenomegaly. No palpable hernias. Extremities: no clubbing, cyanosis or edema. No adenopathy. LABORATORY VALUES: As Noted RADIOLOGIC STUDIES: As Noted Assessment IMPRESSION: bright red rectal bleeding, anal pain ?anal fissure, change in bowel habits, lower abdominal discomfort PLAN: I have reviewed my findings with the surgeon. Will plan for lower endoscopy. We discussed therisks and benefits of the planned endoscopy. I have informed the patient that complications can occur including failure to complete the endoscopy and perforation. The patient had the opportunity to ask questions concerning the planned endoscopy. My staff has also explained the procedure to the patient in understandable terms and has given the patient printed material concerning the procedure. Thepatient freely consents to surgery. I plan to use Miralax bowel preparation We will plan for Monitored Anesthetic Care. -Recommend sitz baths and dibucaine ointment Diagnoses: (K62.5) Bright red rectal bleeding (primary encounter diagnosis) (R19.4) Change in bowel habits (R10.30) Lower abdominal pain Consultation requested by Dr. Abrams for an opinion regarding rectal bleeding. My final recommendations will be communicated back to the requesting physician by way of shared Medical record or letter to requesting physician via US mail. Linda Rabago PA-C documented in this encounterSelect Medical [facility]ty [facility] [place]08-15-2023 Nurse Note* Krystal TalaveraJAELYN - 11/27/2022 12:58 PM EDT REVIEW OF SYSTEMS: General: The patient notes fatigue, denies weight loss, notes weight gain, denies feeling hot, and denies feelings of cold. Eyes: The patient denies glaucoma, denies eye injury/surgery, does not wear glasses or contacts. Ear/Nose/Throat: The patient denies allergies, denies hayfever, denies ear infections, and denies bloody noses. Cardiovascular: The patient denies chest pain, denies heart disease, denies high blood pressure,denies cardiac stent, denies prior heart attack, denies irregular heart beat, denies high cholesterol, denies poor circulation, denies heart failure, other cardiac issues, denies claudication, denies cold feet, denies peripheral arterial stent. Respiratory: The patient denies tuberculosis, denies pneumonia, denies frequent cough, denies pulmonary embolism, denies shortness of breath, and denies coughing up blood, notes COPD. Gastrointestinal: The patient denies difficulty swallowing, denies acid reflux, denies ulcers, denies vomiting, denies jaundice/hepatitis, denies gallbladder problems, denies black or tarry stools, notes hemorrhoids, notes bleeding from rectum, denies diverticulitis, notes constipation, notes diarrhea, denies loss of stool control, and denies hernias. Kidney/Bladder: The patient denies kidney stones, notes kidney failure, denies urine infections, and denies bloody urine. Skin: The patient denies a history of skin cancer, denies bleeding/changing moles, and denies a history of skin rash. Neurologic: The patient denies a history of epilepsy/convulsions, notes headaches, notes head/spinal injuries, and denies stroke/TIA. Psychiatric: The patient denies psychiatric medications, denies depression, and denies voices, denies substance abuse. Endocrine: The patient denies thyroid disorders, denies diabetes, and denies hormonal problems. Hematologic: The patient notes a history of bruising, denies bleeding, and denies anemia, denies blood clots. Infections: The patient notes a history of measles and mumps, denies rheumatic fever, and denies sexually transmitted diseases. Musculoskeletal: The patient notes back pain/injury, notes back problems, denies sciatica, notes knee/foot trouble, notes arthritis, or denies gout. When was patient's last Mammogram screening? 2022 Last Colonoscopy: over 10 years ago Krystal Talavera LPN documented in this encounterSelect Medical Specialty [facility] [place]07-13-2023 Miscellaneous Notes* Telephone Encounter - Greg Abrams MD - 10/25/2022 4:30 PM EDT Looks like last filled October last ''The following approved medication requests have been transmitted electronically. Requested Prescriptions Signed Prescriptions Disp Refills magnesium oxide (MAG-OX) 400 mg (241.3 mg magnesium) tablet 30 tablet 1 Sig: Take 1 tablet by mouth once daily. Authorizing Provider: GREG ABRAMS MD * Telephone Encounter - Cherry Suresh LPN - 10/25/2022 1:38 PM EDT Patient has refills for Calcium 600 +D & Vitamin D2. Patient has been identified by name and date of : Yes Patient phones for refill(s): Requested Prescriptions Pending Prescriptions Disp Refills magnesium oxide (MAG-OX) 400 mg (241.3 mg magnesium) tablet 30 tablet 1 Sig: Take 1 tablet by mouth once daily. Date of last office visit in primary care: 09/04/2022 Appt: 03/15/2023 Last 2 Encounter Wt Readings: Date: Wt: 10/15/2022 64 kg (141 lb) 08/27/2022 64.9 kg (143 lb) Previous labs/tests for medication: Not applicable Please advise. Thank you. Cherry Suresh LPN * Telephone Encounter - Ketty Muller - 10/25/2022 12:25 PM EDT Patient has been identified by name and date of : Yes Last office visit in this department: 08/27/2022 RX INSTRUCTIONS: Patient aware RX will be sent to pharmacy. No need to notify patient. Patient phones requesting refills as follows: Requested Prescriptions Pending Prescriptions Disp Refills calcium carbonate 600 mg-cholecalciferol 400 units (CALCIUM 600 + D) 600 mg-10 mcg (400 unit) tab 30 tablet 12 Sig: Take 1 tablet by mouth once daily. ergocalciferol 50,000 unit capsule (VITAMIN D2, DRISDOL) 12 capsule 1 Sig: Take 1 capsule by mouth one time a week. magnesium oxide (MAG-OX) 400 mg (241.3 mg magnesium) tablet 30 tablet 1 Sig: Take 1 tablet by mouth once daily. Please review and advise. Ketty Muller documented in this encounterSelect [facility] [place]-03-[facility]23 Instructions* Patient Instructions* Natasha Ray MD - 10/15/2022 1:46 PM EDT Repeat fasting blood work documented in this encounterSelect [facility] [place]-03-[facility]23 History of Present illness Narrative* Natasha Ray MD - 10/15/2022 1:40 PM EDT Images from the original note were not included. [facility] SE[facility] CARDIOLOGY Cardiology ([facility]) [address] [facility] [id number] OUTPATIENT VISIT DATE 10/15/2022 PRIMARY CARE PHYSICIAN: Lizbeth Pool [address] [place] [address] HISTORY OF PRESENT ILLNESS: Ms. Berg is a 66 year old woman with a history of SVT (likely atrial tachycardia), syncope due toorthostatic hypotension, hyperlipidemia and prior smoking who presents for routine follow-up. Patient continues to have difficulty with intermittent chronic pancreatitis, weight gain, and hair loss. She has not had recurrent symptoms of palpitation or heart racing. She tells me she is mostly fatigued and depressed. She plans to see her primary care physician to pression. She denies suicidal thoughts. She has not had symptoms concerning for angina at rest or with exertion. She has chronic shortness of breath on exertion which is unchanged from prior. She denies symptoms concerning for syncope or near syncope. PAST MEDICAL HISTORY Diagnosis Date Acute hepatitis C without mention of hepatic coma(070.51) negative RNA in 2016 Acute left ankle pain 12/18/2017 Acute pneumonia 01/15/2022 Anxiety state 05/29/2005 Dr. 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 Not on medications, not seeing neurology. 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 Choi-ID Prediabetes Psoriasis Rheumatoid arthritis involving multiple sites with positive rheumatoid factor (HCC) 12/13/[address] Bowden RLS (restless legs syndrome) 08/29/2011 Vasovagal syncope Vitamin D deficiency PAST SURGICAL HISTORY Procedure Laterality Date BACK SURGERY HX 09/27/2022 CHOLECYSTECTOMY [id number] lap COCHLEAR IMPLANT HX COLONOSCOPY FLX DX W/COLLJ SPEC WHEN PFRMD 10/11/2009 Colonoscopy COLONOSCOPY FLX DX W/COLLJ SPEC WHEN PFRMD 09/30/2018 Colonoscopy EGD EUS N/A 04/06/2020 diffusely dilated PD, suspected pancreas divisum, mild duodenitis ESOPHAGOGASTRODUODENOSCOPY TRANSORAL DIAGNOSTIC 09/30/2018 EGD IR VASCULAR ACCESS TEAM PICC INSERTION RADIO 02/08/2022 OPEN TREATMENT NASAL FRACTURE UNCOMPLICATED x2 no breathing problems PAST SURGICAL HISTORY OF X 2 PAST SURGICAL HISTORY OF FACIAL RECONSTRUCTION PAST SURGICAL HISTORY OF 1997 BILAT. SHOULDER SURGERY PAST SURGICAL HISTORY OF 1994 CERVICAL SPINE FUSION C4, C5 (had cervical fx x3 - even after repair) PAST SURGICAL HISTORY OF 1969 LEFT EAR CHOLESTEATOMA PAST SURGICAL HISTORY OF CLEFT LIP PAST SURGICAL HISTORY OF 02/2006 lasik PAST SURGICAL HISTORY OF 2004 bladder sling PAST SURGICAL HISTORY OF 08/09/2020 Upper endoscopy, percutaneous endoscopic gastrostomy (PEG) tube placed REMV CATARACT EXTRACAP,INSERT LENS Bilateral TRACHEOSTOMY EMERGENCY PROCEDURE TRANSTRACHEAL age 3 or 4 during surgery; lost airway SOCIAL HISTORY Social History Tobacco Use Smoking status: Former Packs/day: 1.00 Years: 30.00 Pack years: 30.00 Types: Cigarettes Quit date: 06/02/2017 Years since quittin.3 Smokeless tobacco: Never Vaping Use Vaping Use: Never used Substance Use Topics Alcohol use: No Drug use: No Comment: IV DRUG USER FAMILY HISTORY Problem Relation Age of Onset Stroke Mother Hypertension Mother Diabetes Father Cancer Father melanoma Kidney transplant Father Cancer Sister thyroid Breast Cancer Sister Breast Cancer Sister Cancer Brother 21 testicular Breast Cancer Maternal Aunt Cancer Other X-nhrkja-Phqzhgoclx ALLERGIES: ALLERGIES Allergen Reactions Acetaminophen Other: See Comments pt told not to take due to liver damage Bupropion Hcl Unknown Codeine Rash, Itching Darvon [Propoxyphen* Itching Daypro [Oxaprozin] Rash Effexor [Venlafaxin* Intolerance decreased libido Flexeril [Cyclobenz* GI Upset, Vomiting Gabapentin Mental Status Change hangover Ibuprofen Other: See Comments pt was told not to take due to kindey damage Stebbins [Hydrocodone-* GI Upset, Itching nausea, itching Oxybutynin Other: See Comments Urinary retention Pentazocine Itching Iberia Trees [Trees] rash Tramadol Intolerance MEDICATIONS: omega-3 fatty acids 1,000 mg cap^Take 2 capsules by mouth once daily.^Disp: 60 capsule^Rfl: 12 omega 6-ylv-hmd-fish oil 1,000 mg (250 mg-750 mg)/5 mL liqd^Take 1,000 mg by mouth once daily.^Disp: 90 mL^Rfl: 1 cyanocobalamin (VITAMIN B-12) 1,000 mcg tab^Take 1 tablet by mouth once daily.^Disp: 90 tablet^Rfl:3 ergocalciferol 50,000 unit capsule (VITAMIN D2, DRISDOL)^Take 1 capsule by mouth one time a week.^Disp: 12 capsule^Rfl: 1 folic acid 1 mg tablet^Take 1 tablet by mouth once daily. Take with breakfast^Disp: 30 tablet^Rfl: 2 abatacept (ORENCIA) 125 mg/mL^INJECT THE CONTENTS OF 1 SYRINGE (125 MG) UNDER THE SKIN ONCE EACH WEEK^Disp: 4 mL^Rfl: 5 rOPINIRole (REQUIP) 1 mg tablet^Take by mouth as directed.^Disp: ^Rfl: polyethylene glycol 3350 (MIRALAX) 17 gram/dose powder^Take 17 g by mouth twice daily as needed forconstipation.^Disp: 507 g^Rfl: 1 budesonide-formoterol (SYMBICORT) 160-4.5 mcg/actuation inhaler^Inhale 2 Puffs as instructed twice daily.^Disp: 11 g^Rfl: 5 nicotine (NICOTROL) 10 mg inhaler^Inhale 1 Puff as instructed as needed.^Disp: 1 Each^Rfl: 1 calcium carbonate 600 mg-cholecalciferol 400 units (CALCIUM 600 + D) 600 mg-10 mcg (400 unit) tab^Take 1 tablet by mouth once daily.^Disp: 30 tablet^Rfl: 12 ygzdbe-bgogynww-mtoaqxo (CREON) 6,000-19,000 -30,000 unit delayed release capsule^Take 2 capsules by mouth with meals and at bedtime.^Disp: 240 capsule^Rfl: 3 Nebulizers^1 Each once daily.^Disp: 1 Each^Rfl: 0 albuterol (PROVENTIL) 2.5 mg /3 mL (0.083 %) nebulizer solution^Use 3 mL via nebulizer every 4 hours as needed for wheezing/shortness of breath. Use over 5- 15minutes.^Disp: 3 mL^Rfl: 1 Blood Pressure Monitor (BLOOD PRESSURE KIT)^1 Each once daily as needed. Dx: recurrent syncope R55^Disp: 1 Kit^Rfl: 0 ALPRAZolam (XANAX) 1 mg tablet^Take 1 mg by mouth twice daily.^Disp: ^Rfl: QUEtiapine (SEROQUEL) 100 mg tablet^Take 2 tablets by mouth daily at bedtime.^Disp: 180 tablet^Rfl:1 dicyclomine (BENTYL) 10 mg capsule^Take 1 capsule by mouth four times daily as needed. For abdominal pain.^Disp: 120 capsule^Rfl: 0 (Patient not taking: Reported on 10/15/2022) predniSONE (DELTASONE) 10 mg tablet^Take 2 tabs po BID for 2 days then 1 tab po BID for 2 days then1/2 tab po BID for 2 days then 1/2 tab daily for 2 days then stop^Disp: 15 tablet^Rfl: 0 (Patient not taking: Reported on 10/15/2022) atorvastatin (LIPITOR) 40 mg tablet^Take 0.5 tablets by mouth daily at bedtime. For cholesterol.^Disp: 90 tablet^Rfl: 3 (Patient not taking: Reported on 10/15/2022) REVIEW OF SYSTEMS: Review of Systems Constitutional: Negative for chills, fever, malaise/fatigue and weight loss. HENT: Negative for hearing loss and sore throat. Eyes: Negative for blurred vision and double vision. Respiratory: Negative. Cardiovascular: Negative. Gastrointestinal: Positive for abdominal pain, heartburn and nausea. Negative for blood in stool, constipation, diarrhea, melena and vomiting. Genitourinary: Negative for dysuria, frequency, hematuria and urgency. Musculoskeletal: Negative. Skin: Negative. Neurological: Negative for dizziness, seizures, loss of consciousness, weakness and headaches. Endo/Heme/Allergies: Negative for environmental allergies. Does not bruise/bleed easily. Psychiatric/Behavioral: Negative for depression. PHYSICAL EXAMINATION: BP 142/90 (BP Site: Right Arm, BP Position: Sitting, BP Cuff Size: Regular Adult) Pulse 77 Resp16 Wt 64 kg (141 lb) SpO2 93% BMI 24.59 kg/m General: Thin somewhat cachectic woman sitting appears comfortable mildly anxious no apparent distress. HEENT: Carotid upstrokes are brisk bilaterally without bruits. No JVD appreciated. Pulmonary: Lungs are clear no rales, wheezes, rhonchi Cardiovascular: Normal S1, S2 with regular rate and rhythm. No murmurs, rubs, or gallops appreciated. Abdomen: Soft, flat, diminished bowel sounds. Place. No erythema. Extremities: Warm, well-perfused, no lower extremity edema. CARDIOVASCULAR MEDICINE TESTING: Echocardiogram 01/19/2022: - Technically difficult exam due to uncooperative patient and respiratory interference. - Exam indication: Abnormal ECG - The left ventricle is normal in size. There is no left ventricular hypertrophy. Left ventricular systolic function is normal. EF = 56 5% (3D) Grade I left ventricular diastolic dysfunction. - The right ventricle is normal in size. Right ventricular systolic function is normal. - No significant valve disease: Trivial AI, 1-2+ MR, trivial TR - The patient has not had a prior CC echocardiographic exam for comparison. Echocardiogram 04/22/2020: CONCLUSIONS: - Exam indication: Syncope - The left ventricle is normal in size. Left ventricular systolic function is normal. EF = 63 5% (2D biplane) Normal left ventricular diastolic function. - The right ventricle is normal in size. Right ventricular systolic function is normal. - There is LINDSAY at rest with an LVOT gradient of 3 mmHg. No change with valsalva. No evidence of significant outflow tract obstruction. - Exam was compared with the prior CC echocardiographic exam performed on 02/17/2013 (Stress). There has been no change. Extended Monitor 02/08/20-02/22/20: Patient had a min HR of 45 bpm, max HR of 182 bpm, and avg HR of 79bpm. Predominant underlying rhythm was Sinus Rhythm. 376 Supraventricular Tachycardia runs occurred, the run with the fastest interval lasting 4 beats with a max rate of 182 bpm, the longest lasting 2 mins 43 secs with an avg rate of 133 bpm. Supraventricular Tachycardia was detected within +/- 45 seconds of symptomatic patient event(s). Isolated SVEs were rare (<1.0%), SVE Couplets were rare (<1.0%), andSVE Triplets were rare (<1.0%). Isolated VEs were rare (<1.0%), and no VE Couplets or VE Triplets were present. Holter monitor 12/29/2019: IMPRESSIONS AND FINDINGS: Sinus rhythm Maximum HR-144 bpm, minimum HR-52 bpm. Average HR-79 bpm. Very rare SVEs were seen as singles. Runs of SVT / atrial tachycardia were present. Longest run 16 beats, 108 bpm, fastest run 7 beats, 112 bpm. One VE was seen as a single. No symptoms noted on patient diary. Patient event markers were not activated. Brief Interpretation ; Sinus rhythm ; Supraventricular ectopy ; atrial/supraventricular tachycardiarun(s) ; ventricular ectopic Carotid ultrasound 05/31/2022: IMPRESSION Compared to prior study of 05/15/2019, Unable to reproduce velocities in the right internal carotid artery of 40-59%. No change on the left. RIGHT SIDE Internal carotid artery: 20-39% stenosis. Vertebral artery: Patent and antegrade flow noted. High resistive signal suggests non-dominant vessel or more distal disease; clinical correlation is suggested. Innominate artery: Unable to visualize. LEFT SIDE Internal carotid artery: 20-39% stenosis. Vertebral artery: Patent and antegrade flow noted. Carotid ultrasound 05/15/2019: IMPRESSION RIGHT SIDE Internal carotid artery: 40-59% stenosis. Tortuous vessel from mid to distal . Degree of stenosis may be overestimated due to tortuosity at mid to distal vessel. Vertebral artery: Patent and antegrade flow noted. High resistive signal suggests non-dominant vessel or more distal disease; clinical correlation is suggested. Innominate artery: Unable to visualize. Subclavian artery: Unable to visualized origin. Proximal vessel is patent. LEFT SIDE Internal carotid artery: 20-39% stenosis. Vertebral artery: Patent and antegrade flow noted. Lexiscan Myoview stress test 04/30/2018: CONCLUSIONS: 1. SPECT Perfusion Study: Normal. 2. There is no scintigraphic evidence for inducible ischemia. 3. No evidence of scarred myocardium. 4. Functional capacity N/A (pharmacological). 5. Left ventricle is normal in size. The left ventricle systolic function is hyperdynamic. 6. This is a low risk scan. Gated Stress FBP LVEF % 84 CT chest without IV contrast 12/28/2019: Heart, pericardium, and thoracic vessels: The thoracic aorta and main pulmonary artery are normal in caliber. The cardiac chambers are normal in size. No coronary artery atherosclerotic calcifications are noted, although the study is not optimized for coronary assessment. No pericardial effusion orthickening. IMPRESSION: Ms. Berg is a 66 year old woman with multiple medical problems and syncope secondary to orthostatic hypotension. She has history of SVT likely atrial tachycardia with associated feelings of palpitations. Her risk factors for coronary disease include a longstanding history of smoking, known carotid artery disease, and dyslipidemia. She had a low risk stress test completed in 2019. PLAN AND RECOMMENDATIONS: 1. Palpitations - ICD9: 785.1, ICD10: R00.2 (primary diagnosis) No recurrent symptoms since last office visit. 2. Orthostatic hypotension - ICD9: 458.0, ICD10: I95.1 3. Hyperlipidemia, unspecified hyperlipidemia type - ICD9: 272.4, ICD10: E78.5 Patient had been prescribed Lipitor 40 mg daily in the past. However, she is reluctant to consider medical therapy. I recommended repeat fasting blood work for evaluation and next office visit. I discussed the fact that she would benefit from statin therapy with significant reduction in her risk ofstroke or heart attack - LIPID PANEL BASIC 4. Bilateral carotid artery stenosis - ICD9: 433.10, 433.30, ICD10: I65.23 Mild bilateral disease on most recent ultrasound in May 2022 5. Vasovagal syncope - ICD9: 780.2, ICD10: R55 Natasha Ray MD documented in this encounterSelect [facility]06-26-2023 Miscellaneous Notes* Telephone Encounter - Nicky Navarro LPN - 10/08/2022 3:54 PM EDT Good morning. Your recent lab test shows TSH is within normal limits. Regards, Luana Tripathi APRN.PANEL ASSEMBLER PATIENT NOTIFIED OF SAME. Patient states she is needing fish oil capsules sent to [facility] if she is to continue to take it. She mentioned that she has not had it in awhile and it was capsules and not the liquid thatis on current medication list. * Telephone Encounter - Avani Luico Pss - 10/08/2022 10:52 AM EDT Patient had a TSH lab on 08/27 and requesting a call with those results please documented in this encounterSelect Medical [facility] [place]05-17-2023 Miscellaneous Notes* Telephone Encounter - Delaney Mora APRN.ALMOND ROASTER - 08/29/2022 11:30 AM EDT Completed peer to peer rereview for approval of lumbar CT for this patient. Ref # [id number], this was approved, authorization # [id number]. documented in this encounterSelect Medical [facility] [place]05-15-2023 History of Present illness Narrative* Luana Tripathi APRN.PANEL ASSEMBLER - 08/27/2022 1:23 PM EDT SUBJECTIVE: SHINGRIX VACCINE(1 of 2) Never done MAMMOGRAM due on 04/10/2019 LUNG CANCER SCREENING due on 12/27/2020 PAP TESTING due on 01/15/2023 HPV TESTING due on 01/15/2023 HPI David Berg is a 66 year old female. 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) Insomnia Cervicalgia Left-Sided Low Back Pain With Left-Sided Sciatica Hnp (Herniated Nucleus Pulposus), Lumbar Rheumatoid Arthritis Involving Multiple Sites With Positive Rheumatoid Factor (Hcc) Dry Eye Syndrome Hyperlipidemia Pain in Toe of Left Foot Prediabetes Constipation, Unspecified Left Sided Colitis Without Complications (Hcc) Syncope Orthostatic Hypotension Steatorrhea, Pancreatic Pancreas Divisum Severe Protein-Calorie Malnutrition (Hcc) Abscess Abscess of Abdominal Cavity (Hcc) Nausea & Vomiting Bilateral Carotid Artery Stenosis HPI excerpted from previous visit: Current PCP is Lizbeth Pool MD. last seen in office May 02, 2022. Noted prior hospitalization for pancreatitis, stricture of pancreatic duct, and duodenal perforation, no nausea or vomiting noted at last visit some epigastric pain. Office visit with Vonnie Esparza MD General Surgery on February 21 recommended clinical follow-up rather than surgery. Had not notified office of her abdominal pain. Followed at [facility] for anxiety by . Note controlled symptoms with Xanax and Seroquel. Noted lower blood pressures on losartan so self discontinued. Noted working on smoking cessation. COPD and due for PFT. Using albuterol and declined maintenance inhaler. Notes insomnia and RLS controlled with Seroquel. Telephone encounter noted requesting treatment for UTI without testing or visit. Endorsed visit forevaluation and treatment. Telephone encounter noting memory difficulties. Office visit endorsed for further evaluation. Seen by cardiology Dr. Ray for SVT/palpitations, orthostatic hypotension, hyperlipidemia, vasovagal syncope and bilateral carotid artery stenosis on March 19, 2022.. No recurrent symptoms noted. Continued on treatments unchanged. Has seen Dr Lewis neurology, [facility] visit 2020. Rheumatologg Deloris Juarez ALMOND ROASTER taking abatacept. Would like to change to Greg Abrams MD. Smoking:notes she quit after hospitalization Shortness of breath: Inhaler use: rare use, does hel when used PFT:completed Abdominal pain: reports intermittent mid abdominal pain. No current nausea and vomiting She reports that she was told she may if she underwent abdominal surgery so she is putting thatoff for now. Rheumatology: states taking She reports itchy and flaky scalp present for years. She notes hair loss after her recent illness. Today notes that she has had small amount of bright red blood per rectum for the last few days withbowel movements. Pain with bowel movement. Symptoms similar to prior hemorrhoids. She notes lower abdominal pain that she cannot relate to any sort of aggravating activity. Alleviated with heating pad. Heartburn: no Reflux: no Abdominal pain: lower abdomen Nausea: no Vomiting: no Diarrhea: states chronic 5-8BMs per day, stable Constipation: no BRBPR: states yes, 1 tsp/on toilet paper for 4 weeks Notes pain with bowel movement. Black tarry:no Review of Systems Constitutional: Negative. Gastrointestinal: Positive for abdominal pain and anal bleeding. Objective BP 138/80 Pulse 76 Resp 16 Wt 64.9 kg (143 lb) BMI 24.93 kg/m Physical Exam Vitals and nursing note reviewed. Constitutional: Appearance: Normal appearance. HENT: Head: Normocephalic and atraumatic. Eyes: Conjunctiva/sclera: Conjunctivae normal. Cardiovascular: Rate and Rhythm: Normal rate and regular rhythm. Heart sounds: Normal heart sounds. Pulmonary: Effort: Pulmonary effort is normal. Breath sounds: Normal breath sounds. Abdominal: General: Bowel sounds are normal. Palpations: Abdomen is soft. Tenderness: There is abdominal tenderness (mild TTP upper abdomen). Musculoskeletal: Right lower leg: No edema. Left lower leg: No edema. Skin: General: Skin is warm and dry. Neurological: Mental Status: She is alert. Mental status is at baseline. ALLERGIES Allergen Reactions Acetaminophen Other: See Comments pt told not to take due to liver damage Bupropion Hcl Unknown Codeine Rash, Itching Darvon [Propoxyphen* Itching Daypro [Oxaprozin] Rash Effexor [Venlafaxin* Intolerance decreased libido Flexeril [Cyclobenz* GI Upset, Vomiting Gabapentin Mental Status Change hangover Ibuprofen Other: See Comments pt was told not to take due to kindey damage Stebbins [Hydrocodone-* GI Upset, Itching nausea, itching Oxybutynin Other: See Comments Urinary retention Pentazocine Itching Iberia Trees [Trees] rash Tramadol Intolerance Medications omega 9-yon-dth-fish oil 1,000 mg (250 mg-750 mg)/5 mL liqd^Take 1,000 mg by mouth once daily.^Disp: 90 mL^Rfl: 1 cyanocobalamin (VITAMIN B-12) 1,000 mcg tab^Take 1 tablet by mouth once daily.^Disp: 90 tablet^Rfl:3 ergocalciferol 50,000 unit capsule (VITAMIN D2, DRISDOL)^Take 1 capsule by mouth one time a week.^Disp: 12 capsule^Rfl: 1 folic acid 1 mg tablet^Take 1 tablet by mouth once daily. Take with breakfast^Disp: 30 tablet^Rfl: 2 abatacept (ORENCIA) 125 mg/mL^INJECT THE CONTENTS OF 1 SYRINGE (125 MG) UNDER THE SKIN ONCE EACH WEEK^Disp: 4 mL^Rfl: 5 rOPINIRole (REQUIP) 1 mg tablet^Take by mouth as directed.^Disp: ^Rfl: polyethylene glycol 3350 (MIRALAX) 17 gram/dose powder^Take 17 g by mouth twice daily as needed forconstipation.^Disp: 507 g^Rfl: 1 budesonide-formoterol (SYMBICORT) 160-4.5 mcg/actuation inhaler^Inhale 2 Puffs as instructed twice daily.^Disp: 11 g^Rfl: 5 calcium carbonate 600 mg-cholecalciferol 400 units (CALCIUM 600 + D) 600 mg-10 mcg (400 unit) tab^Take 1 tablet by mouth once daily.^Disp: 30 tablet^Rfl: 12 atorvastatin (LIPITOR) 40 mg tablet^Take 0.5 tablets by mouth daily at bedtime. For cholesterol.^Disp: 90 tablet^Rfl: 3 Nebulizers^1 Each once daily.^Disp: 1 Each^Rfl: 0 albuterol (PROVENTIL) 2.5 mg /3 mL (0.083 %) nebulizer solution^Use 3 mL via nebulizer every 4 hours as needed for wheezing/shortness of breath. Use over 5- 15minutes.^Disp: 3 mL^Rfl: 1 Blood Pressure Monitor (BLOOD PRESSURE KIT)^1 Each once daily as needed. Dx: recurrent syncope R55^Disp: 1 Kit^Rfl: 0 ALPRAZolam (XANAX) 1 mg tablet^Take 1 mg by mouth twice daily.^Disp: ^Rfl: QUEtiapine (SEROQUEL) 100 mg tablet^Take 2 tablets by mouth daily at bedtime.^Disp: 180 tablet^Rfl:1 predniSONE (DELTASONE) 10 mg tablet^Take 2 tabs po BID for 2 days then 1 tab po BID for 2 days then1/2 tab po BID for 2 days then 1/2 tab daily for 2 days then stop^Disp: 15 tablet^Rfl: 0 nicotine (NICOTROL) 10 mg inhaler^Inhale 1 Puff as instructed as needed.^Disp: 1 Each^Rfl: 1 metoclopramide HCl (REGLAN) 10 mg tablet^Take 10 mg by mouth four times daily.^Disp: ^Rfl: (Patientnot taking: No sig reported) kgsjow-bsmgqnxg-lrnetfu (CREON) 6,000-19,000 -30,000 unit delayed release capsule^Take 2 capsules by mouth with meals and at bedtime.^Disp: 240 capsule^Rfl: 3 PAST MEDICAL HISTORY Diagnosis Date Acute hepatitis C without mention of hepatic coma(070.51) negative RNA in 2016 Acute left ankle pain 12/18/2017 Acute pneumonia 01/15/2022 Anxiety state 05/29/2005 Dr. 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 Not on medications, not seeing neurology. 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 Choi-ID Prediabetes Psoriasis Rheumatoid arthritis involving multiple sites with positive rheumatoid factor (HCC) 12/13/[address] Bowden RLS (restless legs syndrome) 08/29/2011 Vasovagal syncope Vitamin D deficiency Social History Tobacco Use Smoking status: Former Packs/day: 1.00 Years: 30.00 Pack years: 30.00 Types: Cigarettes Quit date: 06/02/2017 Years since quittin.2 Smokeless tobacco: Never Vaping Use Vaping Use: Never used Substance Use Topics Alcohol use: No Drug use: No Comment: IV DRUG USER Component Latest Ref Rng & Units 02/27/2022 05/02/2022 WBC 3.70 - 11.00 k/uL 7.34 7.49 RBC 3.90 - 5.20 m/uL 4.61 4.63 Hemoglobin 11.5 - 15.5 g/dL 14.0 14.4 Hematocrit 36.0 - 46.0 % 45.8 44.4 MCV 80.0 - 100.0 fL 99.3 95.9 MCH 26.0 - 34.0 pg 30.4 31.1 MCHC 30.5 - 36.0 g/dL 30.6 32.4 RDW-CV 11.5 - 15.0 % 15.0 15.4 (H) Platelet Count 150 - 400 k/uL 323 247 MPV 9.0 - 12.7 fL 11.4 11.6 Neut% % 44.6 41.7 Abs Neut (ANC) 1.45 - 7.50 k/uL 3.27 3.12 Lymph% % 44.1 50.7 Abs Lymph 1.00 - 4.00 k/uL 3.24 3.80 [place]% % 9.1 6.0 Abs [place] <0.87 k/uL 0.67 0.45 Eosin% % 1.4 0.8 Abs Eosin <0.46 k/uL 0.10 0.06 Baso% % 0.7 0.7 Abs Baso <0.11 k/uL 0.05 0.05 Immature Gran % % 0.1 0.1 IMMATURE GRANS (ABS) <0.10 k/uL <0.03 <0.03 NRBC /100 WBC 0.0 0.0 Absolute nRBC <0.01 k/uL <0.01 <0.01 DTYPE Auto Auto Protein, Total 6.3 - 8.0 g/dL 7.3 7.3 Albumin 3.9 - 4.9 g/dL 4.5 4.8 Calcium 8.5 - 10.2 mg/dL 9.9 9.7 Bilirubin, Total 0.2 - 1.3 mg/dL <0.2 (L) 0.2 Alkaline Phosphatase 34 - 123 U/L 81 76 AST 13 - 35 U/L 46 (H) 35 ALT 7 - 38 U/L 46 (H) 25 Glucose 74 - 99 mg/dL 74 78 BUN 7 - 21 mg/dL 15 20 Creatinine 0.58 - 0.96 mg/dL 0.73 0.81 Sodium 136 - 144 mmol/L 140 143 Potassium 3.7 - 5.1 mmol/L 4.8 4.5 Chloride 97 - 105 mmol/L 104 108 (H) CO2 22 - 30 mmol/L 24 24 Anion Gap 9 - 18 mmol/L 12 11 eGFR >=60 mL/min/1.73m 92 81 Hemoglobin A1C 4.3 - 5.6 % 5.6 Estimated Average Glucose mg/dL 114 Lipase 16 - 61 U/L 67 (H) 65 (H) Phosphorus 2.7 - 4.8 mg/dL 3.3 Magnesium 1.7 - 2.3 mg/dL 2.4 (H) Vitamin D 25 Hydroxy 31.0 - 80.0 ng/mL 27.0 (L) . ASSESSMENT/PLAN: 1. BRBPR (bright red blood per rectum) - ICD9: 569.3, ICD10: K62.5 (primary diagnosis) 2. Pain with bowel movements - ICD9: 564.00, ICD10: R19.8 - HYDROCORTISONE 2.5 % TOPICAL CREAM WITH PERINEAL APPLICATOR - CONSULT TO GASTROENTEROLOGY 3. Lower abdominal pain - ICD9: 789.09, ICD10: R10.30 - DICYCLOMINE 10 MG CAPSULE- QID prn ER for any severe or concerning symptoms. Luana Tripathi APRN.CNS Medical Decision Making: Problems: Low: Acute, uncomplicated illness or injury Risk: Moderate: Drug management Medical Decision Making Level: 3 - Low documented in this encounter[facility] [place]23 Miscellaneous Notes* Telephone Encounter - Nicky Navarro LPN - 08/22/2022 9:47 AM EDT Faxed as requested. * Telephone Encounter - Delaney Mora APRN.CNP - 08/22/2022 9:36 AM EDT Order placed, please fax. Thanks! * Telephone Encounter - Nicky Navarro LPN - 08/22/2022 9:11 AM EDT Need an ultrasound order included for the diagnostic mammogram per [facility] mammography. documented in this encounterSelect [facility] [place]-2023 Miscellaneous Notes* Telephone Encounter - Nicky Navarro LPN - 08/21/2022 1:38 PM EDT Order faxed. * Telephone Encounter - Delaney Mora APRN.CNP - 08/21/2022 1:21 PM EDT Order placed for diagnostic mammogram, please fax to [facility]. Thanks * Telephone Encounter - Julia Barrett LPN - 08/21/2022 1:15 PM EDT Pt states she has never had a mammogram, pt states she has family history of breast cancer. Pt is c/o right breast tenderness & her dog keeps sniffing her right breast. Pt is requesting a 3D mgm at [facility]. Please advise. Julia Barrett LPN documented in this encounterSelect [facility] [place]05-09-2023 Miscellaneous Notes* Telephone Encounter - Nicky Navarro LPN - 08/21/2022 1:28 PM EDT Referral faxed to Dr. Guzman's office. * Telephone Encounter - Delaney Mora APRN.CNP - 08/21/2022 12:54 PM EDT Consult placed, please send. Thanks! * Telephone Encounter - Nicky Navarro LPN - 08/21/2022 12:42 PM EDT Patient has seen Dr. Guzman in the past and so would like to be referred to him. * Telephone Encounter - Delaney Mora APRN.CNP - 08/21/2022 11:48 AM EDT I recommend we have her see a accreditation specialist, would she be interested in Dr. Guzman with [facility] or Dr. Mitchell with [facility]? * Telephone Encounter - Linda Hartman RN - 08/21/2022 11:33 AM EDT Pt called and is notified of providers results. Pt voices understanding, she states she had never been told about a T12 compression fracture before. Pt states she is still in a lot of pain about a 9/10. She is laying on her heating pad right now. She reports it's a constant aching. I asked if anything helped relieve it and she said she doesn't have anything to take, just her heating pad. Pt uses [facility] in [place] if provider wanted to call anything in for her. Linda Hartman RN * Telephone Encounter - Delaney Mora APRN.CNP - 08/21/2022 10:45 AM EDT Can we please call patient and let her know the following message I sent on my chart, she has not viewed it yet: Xray readings are finally back. It shows remote (old) L1 and T12 compression fractures. I know we discussed the L1, have you ever been told of a T12 compression fracture? My concern is if not that this is not remote but new from your recent fall. How is your pain? Delaney Mora APRN.CNP documented in this encounterSelect [facility] [place]05-08-2023 Miscellaneous Notes* Telephone Encounter - Shira Mancilla LPN - 08/20/2022 11:44 AM EDT АНДРЕЙ 08/14/22 NOV 03/15/23 * Telephone Encounter - Estelle Camilo Pss - 08/20/2022 11:13 AM EDT Patient has been identified by name and date of : Yes Requested Prescriptions Pending Prescriptions Disp Refills omega 5-hwl-ffh-fish oil 1,000 mg (250 mg-750 mg)/5 mL liqd 90 mL 1 Sig: Take 1,000 mg by mouth once daily. cyanocobalamin (VITAMIN B-12) 1,000 mcg tab 90 tablet 3 Sig: Take 1 tablet by mouth once daily. ergocalciferol 50,000 unit capsule (VITAMIN D2, DRISDOL) 12 capsule 1 Sig: Take 1 capsule by mouth one time a week. RX INSTRUCTIONS: Patient aware RX will be sent to pharmacy. No need to notify patient. Estelle Camilo Pss documented in this encounterSelect [facility] [place]-04-2023 History of Present illness Narrative* Jody Barahona RT(R) - 08/16/2022 9:00 AM EDT Radiology Service Progress Note PATIENT NAME: David Berg DATE OF SERVICE: August 16, 2022 TIME: 12:12 PM PATIENT IDENTITY VERIFICATION COMPLETED USING TWO (2) IDENTIFIERS: Name and Date of confirmedby patient verbally. FALL SCREENING: Has the patient had 2 falls in the last year or 1 fall with injury or currently using an Ambulatory Assistive Device (Walker, Cane, Wheelchair, Crutches, etc.)? No PATIENT GENDER DATA: Female. status: : No status: NO. PATIENT RELEVANT IMPLANT DATA REVIEWED: Yes RADIOLOGY DEPARTMENT: CT; Exam(s) Completed: Spine PERIPHERAL IV DATA: Not applicable SIGNED BY: RT Sobia(R) August 16, 2022 12:12 PM documented in this encounterSelect [facility] [place]05-02-2023 History of Present illness Narrative* Shania Garcia RT(R) - 08/14/2022 1:40 PM EDT Radiology Service Progress Note PATIENT NAME: David Berg DATE OF SERVICE: August 14, 2022 TIME: 1:44 PM PATIENT IDENTITY VERIFICATION COMPLETED USING TWO (2) IDENTIFIERS: Name and Date of confirmedby patient verbally. FALL SCREENING: Has the patient had 2 falls in the last year or 1 fall with injury or currently using an Ambulatory Assistive Device (Walker, Cane, Wheelchair, Crutches, etc.)? No PATIENT GENDER DATA: Female. status: : No status: NO. PATIENT RELEVANT IMPLANT DATA REVIEWED: Not Applicable RADIOLOGY DEPARTMENT: General X-ray: Exam(s) Completed: Spine X-Ray(s): Thoracic and Lumbar AP / LAT / L5-S1 PERIPHERAL IV DATA: Not applicable SIGNED BY: RT Le(R) August 14, 2022 1:44 PM documented in this encounterSelect [facility] [place]-02-2023 History of Present illness Narrative* Delaney Mora APRN.EDMUND - 08/14/2022 1:04 PM EDT Images from the original note were not included. SUBJECTIVE David Berg is a 66 year old female here today for acute concern. Chief Complaint Patient presents with: Fall: happened about 1 week ago Back Pain: from fall lower back Laceration: to back of left hand from fall HPI David Berg is an 66 year old female presents today for back pain. Denies saddle paresthesia andbowel or bladder difficulties/leaking/loss of control. Had a fall last July, broke back. About a week ago she tried to move a fish tank while up on a step ladder but realized it was too heavy. Triedto push the tank back but tipped the ladder. Hit head on side of toilet. Did not have dizziness, lightheadedness and did not black out or pass out. Now having pain in the middle to lower back. Able to walk but having a lot of pain. Feels compressed. Numbness and tingling in the left foot. Denies weakness. Using heat at home. Had surgery from prior fall due to broke L1. Had cementing. No hardware.Does not want to go back to same provider if needed. Also has a cut on hand. This bled a long time.Has had it covered with guaze and a wrap. Her medications were reviewed today and her list is now up to date. Medications Current Outpatient Medications Medication Sig abatacept (ORENCIA) 125 mg/mL INJECT THE CONTENTS OF 1 SYRINGE (125 MG) UNDER THE SKIN ONCE EACH WEEK rOPINIRole (REQUIP) 1 mg tablet Take by mouth as directed. polyethylene glycol 3350 (MIRALAX) 17 gram/dose powder Take 17 g by mouth twice daily as needed forconstipation. budesonide-formoterol (SYMBICORT) 160-4.5 mcg/actuation inhaler Inhale 2 Puffs as instructed twice daily. VITAMIN D2 1,250 mcg (50,000 unit) capsule take 1 capsule by mouth every week omega 0-bwh-nch-fish oil 1,000 mg (250 mg-750 mg)/5 mL liqd Take 1,000 mg by mouth once daily. nicotine (NICOTROL) 10 mg inhaler Inhale 1 Puff as instructed as needed. calcium carbonate 600 mg-cholecalciferol 400 units (CALCIUM 600 + D) 600 mg-10 mcg (400 unit) tab Take 1 tablet by mouth once daily. cyanocobalamin (VITAMIN B-12) 1,000 mcg tab Take 1,000 mcg by mouth once daily. fgeohd-cliothhj-iwbvshg (CREON) 6,000-19,000 -30,000 unit delayed release capsule Take 2 capsules by mouth with meals and at bedtime. atorvastatin (LIPITOR) 40 mg tablet Take 0.5 tablets by mouth daily at bedtime. For cholesterol. albuterol (PROVENTIL) 2.5 mg /3 mL (0.083 %) nebulizer solution Use 3 mL via nebulizer every 4 hours as needed for wheezing/shortness of breath. Use over 5-15minutes. ALPRAZolam (XANAX) 1 mg tablet Take 1 mg by mouth twice daily. QUEtiapine (SEROQUEL) 100 mg tablet Take 2 tablets by mouth daily at bedtime. folic acid 1 mg tablet Take 1 tablet by mouth once daily. Take with breakfast predniSONE (DELTASONE) 10 mg tablet Take 2 tabs po BID for 2 days then 1 tab po BID for 2 days then1/2 tab po BID for 2 days then 1/2 tab daily for 2 days then stop metoclopramide HCl (REGLAN) 10 mg tablet Take 10 mg by mouth four times daily. (Patient not taking:Reported on 07/06/2022) Nebulizers 1 Each once daily. Blood Pressure Monitor (BLOOD PRESSURE KIT) 1 Each once daily as needed. Dx: recurrent syncope R55 Current Facility-Administered Medications Medication Dose Route Frequency Adult Home Parenteral Nutrition 3:1 INTRAVENOUS DAILY ALLERGIES Allergen Reactions Acetaminophen Other: See Comments pt told not to take due to liver damage Bupropion Hcl Unknown Codeine Rash, Itching Darvon [Propoxyphen* Itching Daypro [Oxaprozin] Rash Effexor [Venlafaxin* Intolerance decreased libido Flexeril [Cyclobenz* GI Upset, Vomiting Gabapentin Mental Status Change hangover Ibuprofen Other: See Comments pt was told not to take due to kindey damage Stebbins [Hydrocodone-* GI Upset, Itching nausea, itching Oxybutynin Other: See Comments Urinary retention Pentazocine Itching [place] Trees [Trees] rash Tramadol Intolerance ACTIVE PROBLEM LIST Bilateral Carotid Artery Stenosis - 03/19/2022 Nausea & Vomiting - 02/07/2022 Abscess of Abdominal Cavity (Hcc) - 01/17/2022 Abscess - 01/06/2022 Steatorrhea, Pancreatic - 05/17/2020 Pancreas Divisum - 05/17/2020 Severe Protein-Calorie Malnutrition (Hcc) - 05/17/2020 Syncope - 02/08/2020 Orthostatic Hypotension - 02/08/2020 Left Sided Colitis Without Complications (Hcc) - 07/24/2018 Constipation, Unspecified - 04/20/2018 Prediabetes Pain in Toe of Left Foot - 12/18/2017 Hyperlipidemia Dry Eye Syndrome - 06/28/2016 Rheumatoid Arthritis Involving Multiple Sites With Positive Rheumatoid Factor (Hcc) - 12/13/2015 Left-Sided Low Back Pain With Left-Sided Sciatica - 06/27/2015 Hnp (Herniated Nucleus Pulposus), Lumbar - 06/27/2015 Cervicalgia - 08/19/2014 Insomnia - 08/06/2013 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) - 05/03/2013 Positive Ppd - 03/23/2013 Bulimia - 02/16/2013 Palpitations - 01/14/2013 Migraine Headache - 02/15/2012 Falls - 02/15/2012 Rls (Restless Legs Syndrome) - 08/29/2011 Ddd (Degenerative Disc Disease), Cervical - 05/07/2011 Nerve Sheath Tumor - 05/07/2011 Low Back Pain - 09/08/2010 Tobacco Use Disorder - 02/22/2009 Epigastric Pain - 01/11/2006 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 Negative for jointswelling, neck pain and neck stiffness. Skin: Positive for wound. OBJECTIVE BP 130/90 Pulse 88 Wt 143 lb (64.9kg) SpO2 96% Physical Exam Vitals and nursing note reviewed. Constitutional: General: She is awake. She is not in acute distress. Appearance: Normal appearance. She is well-developed and well-groomed. She is not ill-appearing, toxic-appearing or diaphoretic. HENT: Head: Normocephalic. Right Ear: External ear normal. Left Ear: External ear normal. Nose: Nose normal. Eyes: General: Vision grossly intact. Conjunctiva/sclera: Conjunctivae normal. Pupils: Pupils are equal, round, and reactive to light. Neck: Vascular: No JVD. Trachea: Trachea normal. Cardiovascular: Pulses: Normal pulses. Pulmonary: Effort: Pulmonary effort is normal. No accessory muscle usage, prolonged expiration or respiratory distress. Musculoskeletal: Left wrist: No swelling, deformity, effusion, lacerations, tenderness, bony tenderness or crepitus.Normal range of motion. Normal pulse. Cervical back: Normal and neck supple. Thoracic back: Tenderness (paraspinal to lower thoracic region) and bony tenderness (lower thoracicregion) present. No swelling, edema, deformity, signs of trauma, lacerations or spasms. Decreased range of motion. No scoliosis. Lumbar back: Tenderness and bony tenderness present. No swelling, edema, deformity, signs of trauma, lacerations or spasms. Decreased range of motion. No scoliosis. Skin: General: Skin is warm and dry. Capillary Refill: Capillary refill takes less than 2 seconds. Neurological: General: No focal deficit present. Mental Status: She is alert and oriented to person, place, and time. Mental status is at baseline. Cranial Nerves: Cranial nerves 2-12 are intact. Sensory: Sensation is intact. Motor: Motor function is intact. Coordination: Coordination is intact. Gait: Gait is intact. Psychiatric: Attention and Perception: Attention and perception normal. Mood and Affect: Mood and affect normal. Speech: Speech normal. Behavior: Behavior normal. Behavior is cooperative. Thought Content: Thought content normal. Cognition and Memory: Cognition and memory normal. Judgment: Judgment normal. ASSESSMENT/PLAN: 1. Acute midline low back pain without sciatica - ICD9: 724.2, ICD10: M54.50 (primary diagnosis) Check xrays, pain starts at the upper lumbar region, close to thoracic spine she will check plain flims of thoracic and lumbar spine. Given her prior L1 fracture will set up for CT of spine (cannot do MRI because of cochlear implant). Increased concern for possible refracture or new area of compression fracture. Does not tolerate tramadol, hydrocodone or oxycodone so we will start with a steroid taper to help reduce pain and she can continue with rest, heat/ice. - XR LUMBAR GENERAL 3V AP/LAT/L5-S1 - XR THORACIC LIMITED 2V AP/LAT - CT LUMBAR SPINE WO IVCON - PREDNISONE 10 MG TABLET 2. H/O back injury - ICD9: V15.59, ICD10: Z87.828 See above. 3. Skin tear of left hand without complication, initial encounter - ICD9: 882.0, ICD10: S61.412A Well healing, discussed care of the area, signs and symptoms to monitor for, when to seek medical attention. Wound care provided in the office. 4. Fall, initial encounter - ICD9: E888.9, ICD10: W19.XXXA Portions of this note have been entered by ancillary staff. I have reviewed and when necessary edited, so that they are an adequate record of my encounter with this patient Please note that parts of this document were created using voice recognition software and therefore may contain grammatical errors. Patient verbalizes understanding of instructions from today's visit and in agreement with treatmentplan. Questions answered. Agrees to call the office if questions, concerns of issues with acute symptoms not improving or if they worsen. Return if symptoms worsen or fail to improve, for Keep next scheduled appointment.. Delaney Mora APRN-EDMUND documented in this encounterSelect Medical [facility] [place]04-14-2023 Miscellaneous Notes* Telephone Encounter - Aziza David Linder - 07/27/2022 7:34 AM EDT Most recent Rheumatology visit: 11/29/2021 (with Deloris Juarez) Recent Office Visits - This Specialty Visits with Pr 12/05/2016 Rheumatoid arthritis involving multiple sites with positive rheumatoid factor (HCC) Other Visits 11/29/2021 Inflammatory arthritis Rheumatology Deloris Juarez APRN.EDMUND 01/12/2019 Rheumatoid arthritis involving multiple sites with positive rheumatoid factor (HCC) Rheumatology Deloris Juarez APRN.CNP 07/03/2018 Rheumatoid arthritis involving multiple sites with positive rheumatoid factor (HCC) Rheumatology Mary Ellen (Edmund)(Hist) Pee Upcoming Rheumatology Appointments - Next 365 Days No appointments to display CBC: CBC Latest Ref Rng & Units 02/27/2022 05/02/2022 WBC 3.70 - 11.00 k/uL 7.34 7.49 HGB - - - HEMOGLOBIN 11.5 - 15.5 g/dL 14.0 14.4 HEMOGLOBIN, [place] 12.0 - 16.0 g/dL - - HEMATOCRIT 36.0 - 46.0 % 45.8 44.4 PLATELETS 150 - 400 k/uL 323 247 ABS NEUT (ANC) 1.45 - 7.50 k/uL 3.27 3.12 ABS NEUT, [place] 2.0 - 8.1 k/uL - - LYMPH ABS 1.2 - 4 K/uL - - ABS LYM 1.0 - 4.0 k/uL - - ABS LYMP, [place] 1.0 - 5.5 k/uL - - ABS LYMPH 1.00 - 4.00 k/uL 3.24 3.80 Vitamin D: Vitamin D Latest Ref Rng & Units 11/30/2021 05/02/2022 VITAMIN D 25 HYDROXY 31.0 - 80.0 ng/mL 17.5(L) 27.0(L) LFT: CMP Latest Ref Rng & Units 02/27/2022 05/02/2022 SODIUM 136 - 144 mmol/L 140 143 SODIUM, [place] 132 - 148 mmol/L - - SODIUM, [place] 132 - 148 mmol/L - - POTASSIUM 3.7 - 5.1 mmol/L 4.8 4.5 POTASSIUM, [place] 3.5 - 5.0 mmol/L - - CHLORIDE 97 - 105 mmol/L 104 108(H) CHLORIDE, [place] 98 - 110 mmol/L - - CO2 22 - 30 mmol/L 24 24 CO2, [place] 23.0 - 32.0 mmol/L - - GLUCOSE 74 - 99 mg/dL 74 78 GLUCOSE (U), [place] NEGAT mg/dL - - GLUCOSE, [place] 65 - 100 mg/dL - - BUN 7 - 21 mg/dL 15 20 BUN, [place] 10 - 25 mg/dL - - CREATININE 0.58 - 0.96 mg/dL 0.73 0.81 CREATININE, [place] 0.7 - 1.4 mg/dL - - CALCIUM, [place] 8.5 - 10.5 mg/dL - - CALCIUM, TOTAL 8.5 - 10.2 mg/dL 9.9 9.7 AST 13 - 35 U/L 46(H) 35 AST, [place] 7 - 40 U/L - - ALT 7 - 38 U/L 46(H) 25 ALT, [place]ANC[place] 0 - 45 U/L - - ALKALINE PHOSPHATASE 34 - 123 U/L 81 76 Hepatic Function: Creatinine: Creatinine Latest Ref Rng & Units 02/27/2022 05/02/2022 CREAT 0.58 - 0.96 mg/dL 0.73 0.81 ESR/CRP: None on file in the last 6 months Uric Acid: None on file in the last 6 months Open Standing (Multiple Instance) Lab Orders None Open Future (Single Instance) Lab Orders Expected Expires Ordered TSH BLD [SQTSH] 07/06/22 09/05/22 07/06/22 Auth. provider: Luana Tripathi APRN.[employer]EL [employer] Assoc. diagnoses: Hair loss documented in this encounterSelect Medical [facility]ty [facility] [place]03-24-2023 History of Present illness Narrative* Luana Tripathi APRN.PANEL ASSEMBLER - 07/06/2022 12:20 PM EDT SUBJECTIVE: SHINGRIX VACCINE(1 of 2) Never done MAMMOGRAM due on 04/10/2019 LUNG CANCER SCREENING due on 12/27/2020 HPI David Berg is a 66 year old female. 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 last seen in office May 02, 2022. Noted prior hospitalization for pancreatitis, stricture of pancreatic duct, and duodenal perforation, no nausea or vomiting noted at last visit some epigastric pain. Office visit with Vonnie Esparza MD General Surgery on February 21 recommended clinical follow-up rather than surgery. Had not notified office of her abdominal pain. Followed at [facility] for anxiety by . Note controlled symptoms with Xanax and Seroquel. Noted lower blood pressures on losartan so self discontinued. Noted working on smoking cessation. COPD and due for PFT. Using albuterol and declined maintenance inhaler. Notes insomnia and RLS controlled with Seroquel. Telephone encounter noted requesting treatment for UTI without testing or visit. Endorsed visit forevaluation and treatment. Telephone encounter noting memory difficulties. Office visit endorsed for further evaluation. Seen by cardiology Dr. Ray for SVT/palpitations, orthostatic hypotension, hyperlipidemia, vasovagal syncope and bilateral carotid artery stenosis on March 19, 2022.. No recurrent symptoms noted. Continued on treatments unchanged. Has seen Dr Lewis neurology, [facility] visit 2020. Rheumatologg Deloris Juarez ALMOND ROASTER taking abatacept. Would like to change to Greg Abrams MD. Smoking:notes she quit after hospitalization Shortness of breath: Inhaler use: rare use, does hel when used PFT:completed Abdominal pain: reports intermittent mid abdominal pain. No current nausea and vomiting She reports that she was told she may if she underwent abdominal surgery so she is putting thatoff for now. Rheumatology: states taking She reports itchy and flaky scalp present for years. She notes hair loss after her recent illness. Review of Systems Constitutional: Negative. Skin: Positive for rash. Objective BP 130/80 Pulse 82 Resp 14 Ht 161.3 cm (5' 3.5) Wt 63.5 kg (140 lb) SpO2 95% BMI 24.41kg/m Physical Exam Vitals and nursing note reviewed. Constitutional: Appearance: Normal appearance. HENT: Head: Normocephalic and atraumatic. Comments: Hair is not thin at scalp, +erythema and flakes at ears and crown Eyes: Conjunctiva/sclera: Conjunctivae normal. Cardiovascular: Rate and Rhythm: Normal rate and regular rhythm. Heart sounds: Normal heart sounds. Pulmonary: Effort: Pulmonary effort is normal. Breath sounds: Normal breath sounds. Abdominal: General: Bowel sounds are normal. Palpations: Abdomen is soft. Tenderness: There is abdominal tenderness (mild TTP upper abdomen). Musculoskeletal: Right lower leg: No edema. Left lower leg: No edema. Skin: General: Skin is warm and dry. Neurological: Mental Status: She is alert. Mental status is at baseline. ALLERGIES Allergen Reactions Acetaminophen Other: See Comments pt told not to take due to liver damage Bupropion Hcl Unknown Codeine Rash, Itching Darvon [Propoxyphen* Itching Daypro [Oxaprozin] Rash Effexor [Venlafaxin* Intolerance decreased libido Flexeril [Cyclobenz* GI Upset, Vomiting Gabapentin Mental Status Change hangover Ibuprofen Other: See Comments pt was told not to take due to kindey damage Stebbins [Hydrocodone-* GI Upset, Itching nausea, itching Oxybutynin Other: See Comments Urinary retention Pentazocine Itching [place]ia Trees [Trees] rash Tramadol Intolerance Medications rOPINIRole (REQUIP) 1 mg tablet^Take by mouth as directed.^Disp: ^Rfl: budesonide-formoterol (SYMBICORT) 160-4.5 mcg/actuation inhaler^Inhale 2 Puffs as instructed twice daily.^Disp: 11 g^Rfl: 5 VITAMIN D2 1,250 mcg (50,000 unit) capsule^take 1 capsule by mouth every week^Disp: 12 capsule^Rfl:1 omega 7-zxk-yga-fish oil 1,000 mg (250 mg-750 mg)/5 mL liqd^Take 1,000 mg by mouth once daily.^Disp: 90 mL^Rfl: 1 nicotine (NICOTROL) 10 mg inhaler^Inhale 1 Puff as instructed as needed.^Disp: 1 Each^Rfl: 1 calcium carbonate 600 mg-cholecalciferol 400 units (CALCIUM 600 + D) 600 mg-10 mcg (400 unit) tab^Take 1 tablet by mouth once daily.^Disp: 30 tablet^Rfl: 12 folic acid 1 mg tablet^Take 1 mg by mouth once daily. Take with breakfast^Disp: ^Rfl: cyanocobalamin (VITAMIN B-12) 1,000 mcg tab^Take 1,000 mcg by mouth once daily.^Disp: ^Rfl: abatacept (ORENCIA) 125 mg/mL^INJECT THE CONTENTS OF 1 SYRINGE (125 MG) UNDER THE SKIN ONCE EACH WEEK (NO ADDITIONAL REFILLS UNTIL OFFICE VISIT 10/11/2021)^Disp: 4 mL^Rfl: 5 (Patient taking differently: Inject subcutaneously. INJECT THE CONTENTS OF 1 SYRINGE (125 MG) UNDER THE SKIN ONCE EACH WEEK (NO ADDITIONAL REFILLS UNTIL OFFICE VISIT 10/11/2021)) jplfma-nwwqzbwn-obpihlu (CREON) 6,000-19,000 -30,000 unit delayed release capsule^Take 2 capsules by mouth with meals and at bedtime.^Disp: 240 capsule^Rfl: 3 atorvastatin (LIPITOR) 40 mg tablet^Take 0.5 tablets by mouth daily at bedtime. For cholesterol.^Disp: 90 tablet^Rfl: 3 Nebulizers^1 Each once daily.^Disp: 1 Each^Rfl: 0 albuterol (PROVENTIL) 2.5 mg /3 mL (0.083 %) nebulizer solution^Use 3 mL via nebulizer every 4 hours as needed for wheezing/shortness of breath. Use over 5- 15minutes.^Disp: 3 mL^Rfl: 1 Blood Pressure Monitor (BLOOD PRESSURE KIT)^1 Each once daily as needed. Dx: recurrent syncope R55^Disp: 1 Kit^Rfl: 0 ALPRAZolam (XANAX) 1 mg tablet^Take 1 mg by mouth twice daily.^Disp: ^Rfl: QUEtiapine (SEROQUEL) 100 mg tablet^Take 2 tablets by mouth daily at bedtime.^Disp: 180 tablet^Rfl:1 polyethylene glycol 3350 (MIRALAX) 17 gram/dose powder^Take 17 g by mouth twice daily as needed forconstipation.^Disp: 507 g^Rfl: 1 Ketoconazole 1 % sham^Apply to affected area every 72 hours. For itchy scalp^Disp: 125 mL^Rfl: 1 metoclopramide HCl (REGLAN) 10 mg tablet^Take 10 mg by mouth four times daily.^Disp: ^Rfl: (Patientnot taking: Reported on 07/06/2022) PAST MEDICAL HISTORY Diagnosis Date Acute hepatitis C without mention of hepatic coma(070.51) negative RNA in 2015 Acute left ankle pain 12/18/2017 Acute pneumonia 01/15/2022 Anxiety state 05/29/2005 Dr. 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 Not on medications, not seeing neurology. 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 Choi-ID Prediabetes Psoriasis Rheumatoid arthritis involving multiple sites with positive rheumatoid factor (HCC) 12/13/[address] Bowden RLS (restless legs syndrome) 08/29/2011 Vasovagal syncope Vitamin D deficiency Social History Tobacco Use Smoking status: Former Packs/day: 1.00 Years: 30.00 Pack years: 30.00 Types: Cigarettes Quit date: 06/02/2017 Years since quittin.0 Smokeless tobacco: Never Vaping Use Vaping Use: Never used Substance Use Topics Alcohol use: No Drug use: No Comment: IV DRUG USER Component Latest Ref Rng & Units 02/27/2022 05/02/2022 WBC 3.70 - 11.00 k/uL 7.34 7.49 RBC 3.90 - 5.20 m/uL 4.61 4.63 Hemoglobin 11.5 - 15.5 g/dL 14.0 14.4 Hematocrit 36.0 - 46.0 % 45.8 44.4 MCV 80.0 - 100.0 fL 99.3 95.9 MCH 26.0 - 34.0 pg 30.4 31.1 MCHC 30.5 - 36.0 g/dL 30.6 32.4 RDW-CV 11.5 - 15.0 % 15.0 15.4 (H) Platelet Count 150 - 400 k/uL 323 247 MPV 9.0 - 12.7 fL 11.4 11.6 Neut% % 44.6 41.7 Abs Neut (ANC) 1.45 - 7.50 k/uL 3.27 3.12 Lymph% % 44.1 50.7 Abs Lymph 1.00 - 4.00 k/uL 3.24 3.80 [place]% % 9.1 6.0 Abs [place] <0.87 k/uL 0.67 0.45 Eosin% % 1.4 0.8 Abs Eosin <0.46 k/uL 0.10 0.06 Baso% % 0.7 0.7 Abs Baso <0.11 k/uL 0.05 0.05 Immature Gran % % 0.1 0.1 IMMATURE GRANS (ABS) <0.10 k/uL <0.03 <0.03 NRBC /100 WBC 0.0 0.0 Absolute nRBC <0.01 k/uL <0.01 <0.01 DTYPE Auto Auto Protein, Total 6.3 - 8.0 g/dL 7.3 7.3 Albumin 3.9 - 4.9 g/dL 4.5 4.8 Calcium 8.5 - 10.2 mg/dL 9.9 9.7 Bilirubin, Total 0.2 - 1.3 mg/dL <0.2 (L) 0.2 Alkaline Phosphatase 34 - 123 U/L 81 76 AST 13 - 35 U/L 46 (H) 35 ALT 7 - 38 U/L 46 (H) 25 Glucose 74 - 99 mg/dL 74 78 BUN 7 - 21 mg/dL 15 20 Creatinine 0.58 - 0.96 mg/dL 0.73 0.81 Sodium 136 - 144 mmol/L 140 143 Potassium 3.7 - 5.1 mmol/L 4.8 4.5 Chloride 97 - 105 mmol/L 104 108 (H) CO2 22 - 30 mmol/L 24 24 Anion Gap 9 - 18 mmol/L 12 11 eGFR >=60 mL/min/1.73m 92 81 Hemoglobin A1C 4.3 - 5.6 % 5.6 Estimated Average Glucose mg/dL 114 Lipase 16 - 61 U/L 67 (H) 65 (H) Phosphorus 2.7 - 4.8 mg/dL 3.3 Magnesium 1.7 - 2.3 mg/dL 2.4 (H) Vitamin D 25 Hydroxy 31.0 - 80.0 ng/mL 27.0 (L) ASSESSMENT/PLAN: 1. Hair loss - ICD9: 704.00, ICD10: L65.9 (primary diagnosis) She reports hair loss after serious illness. - TSH BLD 2. Itchy scalp - ICD9: 698.9, ICD10: L29.9 She notes chronic itchy scalp, endorsed trial of ketoconazole shampoo. - KETOCONAZOLE 1 % SHAMPOO 3. Rheumatoid arthritis involving multiple sites with positive rheumatoid factor (HCC) - ICD9: 714.0, ICD10: M05.79 Followed by rheumatology 4. Bilateral carotid artery stenosis - ICD9: 433.10, 433.30, ICD10: I65.23 Follow-up ultrasound shows 20 to 39% bilateral, continue current treatment unchanged 5. Pancreas divisum - ICD9: 751.7, ICD10: Q45.3 Follow up with surgery as indicated, defers for now 6. Intermittent constipation - ICD9: 564.09, ICD10: K59.09 - POLYETHYLENE GLYCOL 3350 17 GRAM/DOSE ORAL POWDER Luana Tripathi APRN.SERA Medical Decision Making: Problems: Low: Acute, uncomplicated illness or injury Moderate: 2+ stable chronic illnesses Data: Unique test(s) ordered: 1 Risk: Low: Low risk from testing/treatment Medical Decision Making Level: 3 - Low documented [facility] [place] Miscellaneous Notes* Telephone Encounter - Julia Arredondo LPN - 06/26/2022 2:58 PM EDT Letter faxed to attchula Blackburn to number provided as requested. * Telephone Encounter - Lizbeth Pool MD - 06/26/2022 2:42 PM EDT Letter printed and signed. In my outbox for patient to picker/puller or to be mailed. * Telephone Encounter - Judith Cordova LPN - 06/26/2022 2:11 PM EDT Patient did not see pulm provider. Likely should come from ordering physician and not PFT retread technician. Will route to PCP. Judith Cordova LPN * Telephone Encounter - Yolande Dempsey - 06/26/2022 11:42 AM EDT Patient called in would like a proof of appt visit on 06/04/2022 for [employer], Fax [phone] (ATT. Bere ). Thank you, Yolande Dempsey PSS 06/26/2022 documented in this encounterSelect [facility] [place]23 History of Present illness Narrative* Sam Castillo DMD - 07/02/2022 12:08 PM EDT [facility] PATIENT VISIT CHIEF COMPLAINT: Toothache HISTORY OF PRESENT ILLNESS: 66 year old female with a pmhx significant for HTN, Emphysema, RA (on abatacept), Generalized convulsive epilepsy, Orthostatic Hypotension, Anxiety, Prediabetes, H/o fosamax use presents to the [facility] clinic for evaluation for #23-29. PAST MEDICAL HISTORY: 66 yrs old Declined To Answer female No past medical history on file. 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) [F60.2] Syncope [R55] Abscess [L02.91] Abscess of abdominal cavity (HCC) [K65.1] Acute left ankle pain [M25.572] Anxiety state [F41.1] Cervicalgia [M54.2] Constipation, unspecified [K59.00] DDD (degenerative disc disease), cervical [M50.30] Epigastric pain [R10.13] Falls [W19.XXXA] HNP (herniated nucleus pulposus), lumbar [M51.26] Hyperlipidemia [E78.5] Insomnia [G47.00] Left sided colitis without complications (HCC) [K51.50] Low back pain [M54.50] Migraine headache [G43.909] Orthostatic hypotension [I95.1] Nausea & vomiting [R11.2] Pain in toe of left foot [M79.675] Palpitations [R00.2] Pancreas divisum [Q45.3] Positive PPD [R76.11] Prediabetes [R73.03] Rheumatoid arthritis involving multiple sites with positive rheumatoid factor (HCC) [M05.79] RLS (restless legs syndrome) [G25.81] Severe protein-calorie malnutrition (HCC) [E43] Steatorrhea, pancreatic [K90.3] Tear film insufficiency [H04.129] Tobacco use disorder [F17.200] MEDICATIONS: Current Outpatient Medications Medication Sig Dispense Refill polyethylene glycol (GLYCOLAX) 17 GM/SCOOP powder Dissolve 17 g in 8 ounces of liquid and drink. Potassium Chloride CR 8 MEQ CPCR Take by mouth. Psyllium 0.52 g CAPS Take 0.52 g by mouth. QUEtiapine (SEROQUEL) 200 MG tablet rizatriptan (Maxalt) 10 MG tablet Take by mouth. rOPINIRole (Requip) 1 MG tablet Take by mouth. senna-docusate (SENOKOT-S) 8.6-50 MG per tablet Take by mouth. topiramate (TOPAMAX) 25 MG tablet Take 25 mg by mouth. Tretinoin 0.025 % GEL Apply topically. dicyclomine (BENTYL) 10 MG capsule Take 10 mg by mouth. vitamin D2 ergocalciferol (DRISDOL) 1.25 MG (32755 UT) capsule Take by mouth. Docusate Sodium (DSS) 100 MG CAPS Take by mouth. folic acid 1 MG tablet Take by mouth. lidocaine (LIDODERM) 5 % patch Apply topically. magnesium oxide (MAG-OX) 400 MG tablet Take 400 mg by mouth. metoclopramide (REGLAN) 10 MG tablet Take by mouth. nicotine (Nicotrol) 10 MG inhaler Inhale 1 Puff by mouth. [place]-3 Fatty Acids (Fish Oil) 1000 MG CAPS Take by mouth. Pancrelipase, Ebj-Jcja-Zojy, (Creon) 6000-43884 units CPEP Take 2 Capsules by mouth. pantoprazole (PROTONIX) 40 MG tablet Take by mouth. benzonatate (TESSALON) 100 MG capsule Take by mouth. bacitracin 500 UNIT/GM ointment Apply topically. bacitracin 500 UNIT/GM OINT ointment augmented betamethasone dipropionate (DIPROLENE) 0.05 % ointment Apply topically. budesonide-formoterol (SYMBICORT) 160-4.5 MCG/ACT inhaler Inhale 2 Puffs by mouth. ALPRAZolam (XANAX) 1 MG tablet calcium carbonate-cholecalciferol (CALTRATE D) 600-10 MG-MCG TABS tablet Take by mouth. cyanocobalamin 500 MCG tablet Take by mouth. carisoprodol (Soma) 350 MG tablet Take by mouth. Abatacept 125 MG/ML SOSY Abatacept Active 125 MG SC FR July 27, 2021 11:00pm On Hold: Resume on 02/14/22. You are on antibiotics for an infection that he had in your abdomen, this medication has been held. Please discuss with your primary care physician to determine when it is appropriate to resume this medication albuterol (PROVENTIL) (2.5 MG/3ML) 0.083% nebulizer solution Inhale 2.5 mg by mouth. alendronate (Fosamax) 70 MG tablet Take by mouth. atorvastatin (LIPITOR) 40 mg tablet Take 20 mg by mouth. No current facility-administered medications for this visit. Patient denies medications except for Aabatcept, Xanax ALLERGIES: Patient has no allergy information on record. SURGICAL HX: See pmhx SOCIAL HX: Tobacco: Yes Other types: Cigarettes 0.5ppd x 40 yrs CLINICAL EXAMINATION Extraoral examination: No sign of infection, redness or tenderness to palpation. No appreciable lymphadenopathy No popping, clicking or crepitus of TMJs bilaterally No tenderness to palpation of temporalis and masseter Range of motion within normal limits, ZOHRA 30mm CN V1, V2, V3, VII intact bilaterally Intraoral examination: Soft tissue pink and moist Oral hygiene fair Oral cancer screen - negative findings Occlusion stable and reproducible Edentulous maxilla Retained root tip #23, 28, 29 #24-27 carious No vestibular swelling No FOM edema or ecchymosis RADIOGRAPHIC INTERPRETATION: [facility] Film taken on 07/02/2022, and Retained in our clinic files Bilateral JOLYNN canals visualized Sinuses clear b/l Wires seen x3 Cochlear implant R Carious teeth #23-29 Atrophic mandible on the right Condyles seated within their fossa DIAGNOSIS: Caries and Retained dental root TREATMENT: Exam, [facility] evaluated, Pt reappointed for procedure, and Awaiting Insurance authorization. Reviewed procedure and complications associated with extractions ,including treatment options and no treatment. Opportunity given to ask all desired questions. Pertinent and more common complicationsof extractions discussed with the patient; pain, swelling, bruising, bleeding, infection (that may require further treatment such as hospitalizations), possible permanent numbness of the tongue, gums, teeth, lip, and chin, injury to adjacent structures (tooth, lip, cheek, jaw bone), damage to adjacent teeth, development of permanent TMJ symptoms/dysfunction, jaw fracture at time of surgery or afterwards, decision to leave root tips behind, displacement of tooth (or portion of) into adjacent spaces (such as sinus, floor of mouth, throat) and the development of sinus symptoms. Complications arenot limited to the above and may include others that are less common. 66 year old female with a pmhx significant for HTN, Emphysema, RA (on abatacept), Generalized convulsive epilepsy, Orthostatic Hypotension, Prediabetes, Anxiety, H/o fosamax use presents to the [facility] clinic for evaluation for #23-29. Pt presents with carious and retained root tips requiring extractio ns to prevent further infection. Procedure to be completed under local anesthetic as the patient was informed she was not a candidate for sedation. PLAN: Extractions # 23-29 and with local anesthesia in clinic. Pt will decide if she would like to continue care and treatment. Sam Castillo DMD [facility] Resident * Joan Daigle - 07/02/2022 11:30 AM EDT Images from the original note were not included. documented in this [id number] Instructions* Patient Instructions* Sam Castillo DMD - 07/02/2022 12:18 PM EDT Dental extraction Instructions Biting on Gauze to Control Bleeding Bleeding may occur for some time after you extraction. In most cases this bleeding can be easily controlled by placing a piece of clean gauze DIRECTLY over the empty tooth socket. Then make sure thatyou bite firmly on this gauze for 30 to 60 minutes. Use the gauze we supplied to you in the bag. Wash your hands with soap and water before touching the gauze and placing it in your mouth. Place the used gauze from your mouth in a plastic bag and dispose the bag in a trash container. Make sure to wash your hands again when you are done touching the used gauze and before touching anything else. If a small amount of bleeding continues after 45 minutes then repeat these instructions. Sometimes biting a tea bag may be helpful in controlling minor bleeding. Very light bleeding for 2 days is not uncommon. If heavy bleeding is still persistent during normal clinic hours than call the Clinic where the extraction was done to speak with an oral surgeon. [facility] [phone]. HELPING THE HEALING PROCESS AND STOPPING THE BLEEDING FOR THE NEXT 24 HOURS (1 DAY) AFTER THE EXTRACTION: DO NOT RINSE YOUR MOUTH OR SPIT 2. DO NOT DRINK ANY HOT LIQUIDS SUCH SOUP, COFFEE, TEA, HOT CHOCOLATE AVOID HEAVY LIFTING, BENDING OR OTHER STENUOUS EXERCISES SLEEP WITH 2 PILLOWS OR IN A RECLINER CHAIR. KEEPING HEAD ELEVATED WILL REDUCE SWELLING. SUTURE WILL DISSOLVE IN 7-10 DAYS FOR THE NEXT 72 HOURS (3 DAYS) AFTER THE EXTRACTION: DO NOT SMOKE OR DRINK ALCOHOL DO NOT DRINK OR SUCK FROM A STRAW OR ANYTHING ELSEDO NOT DRINK. Stitches may have been placed to help healing. Your surgeon will advise you if you need to return to have them removed. TOOTH BRUSHING On the day of the extraction it is best to avoid brushing the teeth right next to the extraction site. On the next day you can start brushing ALL your teeth but in a gentle fashion. Remember to not rinse strongly because it may cause you to start bleeding from the extraction site again. SWELLING AND PAIN After the extraction you may feel some pain and experience some swelling. An ice pack of unopened bag of frozen peas of corn applied to the area should keep the swelling down. Put the ice pack on youface for 10 minutes and then leave it off for the next 20 minutes. You can repeat this patter as you feel is necessary for up to 24 hours after the extraction. To avoid injury, make sure that adults or children avoid biting or chewing on their lips of cheeks, which may be numb following an extraction. If your pain or swelling seems to be getting worse or you feel as though something is not right then call your dentist, as directed above. ANTIBIOTICS AND PAIN MEDICATION If antibiotics have been prescribed then you should take them as directed; this includes taking allthe antibiotic (or liquid) pills that were prescribed. If you don't finish them completely a serious infection could result. You may have little of no discomfort after the extraction. If you have minor pain then you may wantto take acetaminophen (Tylenol) or ibuprofen (Motrin). It is very important that before taking any medications that you read and follow the directions and warnings that come with these products so you know whether they are right for you and you situation. If you have any questions on whether these medications are right for you, first talk to your doctor or pharmacist before taking the medication. Your surgeon may have given you a written prescription for pain relief. It is important that if youdecide to take it you read and understand all the precautions, warnings and directions that come with the medication. If you have any questions on whether the medication is right for you, first talk to your doctor or pharmacist before taking the medication. The pain medication prescription that your dentist gave you may contain a narcotic (like codeine). If so, most narcotic pain medications may upset your stomach. If so, then it is best to take them with food. The pain medication prescription that you were given can also make you drowsy or make you act strangely. If so, you should limit or stop activities such as driving a motor vehicle, operate machinery or other activities that require your full attention. EATING AND DRINKING A soft or liquid diet may be best for you after a difficult extraction. For a simpler extraction just make sure you do your chewing with those teeth that are NOT near the extraction site. POSTOPERATIVE INSTRUCTION AFTER SEDATION / GENERAL ANESTHESIA If you had general anesthesia of IV sedation, do not drive or operate machinery for 24 hours. A responsible adult should be with you for the remainder of the day. When starting oral intake, be sure to consume CLEAR LIQUIDS first. Clear liquids consist of water, Sprite, reyna paulina, Jell-O, and non-pulp containing juices such as cranberry and apple juice. Once tolerating clear-liquids, you may advance your diet. Be sure to follow the specific diet instructions from your doctor according to the type of surgery you have had. It is important that you take any narcotic containing pain medications with food. Patients should not participate in any strenuous activity. Standing and sitting up too quickly following surgery can also result in dizziness and exacerbate these problems. It is also important that patients be supervised for an appropriate amount of time following sedation in order to ensure that they remain safe in the post- operative period. Under NO circumstances should a patient drive the day of surgery or participate in any important decisions. NAUSEA & VOMITING Nausea is not uncommon after surgery. Sometimes pain medications may be the cause. In the event of nausea and/or vomiting following surgery, do not take anything by mouth for at least an hour including the prescribed medicine. You should then sip on Coke, tea, or reyna paulina. You should sip slowly over a 15- minute period. When the nausea subsides, you can begin taking solid foods and the prescribed medicine. You may take the anti-nausea medication if prescribed. If the above is not helpful, contact your surgeon. Please if you have any questions or concerns please contact us: [facility] . Ask for the behavioral health director operational meteorologist (after hours). [employer] Clinic Hours: Mon-Fri 8:30 am to 4:30 pm. documented in this [id number] Miscellaneous Notes* Telephone Encounter - Emi Beck Ma - 06/06/2022 8:31 AM EST Left message for patient on Emi Beck Ma * Telephone Encounter - Lizbeth Pool MD - 06/05/2022 7:32 PM EST Symbicort is tier 1, so will call this in to pharmacy. Take as directed. Call if symptoms of cough,SOB, or wheezing are not improving with this new inhaler. Continue albuterol PRN and keep working on smoking cessation. * Telephone Encounter - Julia Arredondo LPN - 06/05/2022 7:04 PM EST Phoned patient and reviewed results with her. She voiced understanding and stated she is agreeable with whichever bronchodilator PCP thinks is best. She would like Rx sent to [facility]. * Telephone Encounter - Julia Arredondo LPN - 06/05/2022 7:01 PM EST ----- Message from Lizbeth Pool MD sent at 06/05/2022 9:00 AM EST ----- Lung function testing shows moderate COPD which was improved after bronchodilator use. Discussed daily controller inhaler with patient in the office at last OV which she refused. If she changed her mind, would call in Breo or [place] for moderate COPD. * Telephone Encounter - Gabby Buitrago RN - 06/05/2022 9:13 AM EST Call placed to patient and message left to return call to triage nurse to receive provider's message. Gabby Buitrago RN * Telephone Encounter - Sheyla Palafox APRN.CNP - 06/05/2022 8:59 AM EST Please call patient and let her know her pulmonary testing shows moderate obstruction with some improvement after bronchodilator. Would recommend daily inhaler to help with control of symptoms. If she is interested let me know. Continue to use albuterol as needed. Sheyla Palafox APRN.CNP documented [facility] History of Present illness Narrative* RICH Link - 06/04/2022 1:44 PM EST PULM FUNCTION SMARTBLOCK: Provider: Lizbeth Pool MD Assisting Tech: RICH Link Spirometry w/BD: 1 documented in this encounterSelect [facility] [place]-13-2023 Miscellaneous Notes* Telephone Encounter - Julia Arredondo LPN - 05/28/2022 10:05 AM EST Message left for patient to return call to schedule OV to address concerns per PCP. * Telephone Encounter - Lizbeth Pool MD - 05/28/2022 9:25 AM EST This was not discussed at her last OV. Needs to reschedule separate OV if she would like to be worked up for memory impairment. * Telephone Encounter - Sheyla Palafox APRN.CNP - 05/21/2022 2:19 PM EST Let patient know Dr. Pool is out this week. I am unfamiliar with patient so please route to Dr. Pool's inbasket and he can address next week. Sheyla Palafox APRN.EDMUND * Telephone Encounter - Marlene Rodarte RN - 05/21/2022 2:02 PM EST Patient calling to ask if PCP was referring her to a neurologist for memory issues? If so, she is asking referral be sent to [facility]. Marlene Rodarte RN documented in this encounterSelect [facility] [place] History of Present illness Narrative* Swetha Coleman DDS - 05/25/2022 1:47 PM EST ----- Wednesday, May 25, 2022 at 2:32:23 PM ----- ----- Provider: Dior - Swetha Coleman, Resident -- Clinic: [place] ----- INITIAL/COMPREHENSIVE EXAM Patient presents for an Initial Examination. Reviewed patient's medical history. 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 . No contraindications, patient is ready for treatment. Patient's chief complaint: Comp Exam Pain Scale: 0/10 Radiographs taken today were: Panorex Clinical Examination reveals: Decay, Periodontitis- stable and Missing teeth * Teeth # 22,27,28 Remaining root * Teeth # 23,24,25,27 periodontal compromised * Pt had old upper complete denture For almost 15 years * Pt concern about extracting her lower teeth and get lower CD * Pt wants extraction to be done under general anesthesia . Soft tissue evaluation: Within Normal Limits TMJ evaluation: TMJ Clicks and TMJ pain Completed current status of dentition on the charting. Went over needs and treatment plan options with the patient. OHI were discussed with the patient. Written Instructions/AVS were also handed to the patient. Pt Concern: Full Exam was successfully done. Patient consented to the treatment plan. *Extraction # [id number] at [facility]( Referral sent) * Fabricating upper and lower CD PRIOR: Prepared and filled NOTE: Next Visit: EXtraction at [facility] documented in this [id number] Miscellaneous Notes* Telephone Encounter - Aziza Hernandez Ma - 05/17/2022 12:03 PM EST Most recent Rheumatology visit: 11/29/2021 (with Deloris Juarez) Recent Office Visits - This Specialty Visits with Pr 12/05/2016 Rheumatoid arthritis involving multiple sites with positive rheumatoid factor (HCC) Other Visits 11/29/2021 Inflammatory arthritis Rheumatology Deloris Juarez APRN.EDMUND 01/12/2019 Rheumatoid arthritis involving multiple sites with positive rheumatoid factor (HCC) Rheumatology Deloris Juarez APRN.EDMUND 07/03/2018 Rheumatoid arthritis involving multiple sites with positive rheumatoid factor (HCC) Rheumatology Mary Ellen (Capper Machine Operator)(Hist) Pee Upcoming Rheumatology Appointments - Next 365 Days No appointments to display CBC: CBC Latest Ref Rng & Units 02/27/2022 05/02/2022 WBC 3.70 - 11.00 k/uL 7.34 7.49 HGB - - - HEMOGLOBIN 11.5 - 15.5 g/dL 14.0 14.4 HEMOGLOBIN, FRANCESCA 12.0 - 16.0 g/dL - - HEMATOCRIT 36.0 - 46.0 % 45.8 44.4 PLATELETS 150 - 400 k/uL 323 247 ABS NEUT (ANC) 1.45 - 7.50 k/uL 3.27 3.12 ABS NEUT, FRANCESCA 2.0 - 8.1 k/uL - - LYMPH ABS 1.2 - 4 K/uL - - ABS LYM 1.0 - 4.0 k/uL - - ABS LYMP, FRANCESCA 1.0 - 5.5 k/uL - - ABS LYMPH 1.00 - 4.00 k/uL 3.24 3.80 Vitamin D: Vitamin D Latest Ref Rng & Units 11/30/2021 05/02/2022 VITAMIN D 25 HYDROXY 31.0 - 80.0 ng/mL 17.5(L) 27.0(L) LFT: CMP Latest Ref Rng & Units 02/27/2022 05/02/2022 SODIUM 136 - 144 mmol/L 140 143 SODIUM, FRANCESCA 132 - 148 mmol/L - - SODIUM, FRANCESCA 132 - 148 mmol/L - - POTASSIUM 3.7 - 5.1 mmol/L 4.8 4.5 POTASSIUM, FRANCESCA 3.5 - 5.0 mmol/L - - CHLORIDE 97 - 105 mmol/L 104 108(H) CHLORIDE, FRANCESCA 98 - 110 mmol/L - - CO2 22 - 30 mmol/L 24 24 CO2, FRANCESCA 23.0 - 32.0 mmol/L - - GLUCOSE 74 - 99 mg/dL 74 78 GLUCOSE (U), FRANCESCA NEGAT mg/dL - - GLUCOSE, FRANCESCA 65 - 100 mg/dL - - BUN 7 - 21 mg/dL 15 20 BUN, FRANCESCA 10 - 25 mg/dL - - CREATININE 0.58 - 0.96 mg/dL 0.73 0.81 CREATININE, FRANCESCA 0.7 - 1.4 mg/dL - - CALCIUM, FRANCESCA 8.5 - 10.5 mg/dL - - CALCIUM, TOTAL 8.5 - 10.2 mg/dL 9.9 9.7 AST 13 - 35 U/L 46(H) 35 AST, FRANCESCA 7 - 40 U/L - - ALT 7 - 38 U/L 46(H) 25 ALT, FRANCESCA 0 - 45 U/L - - ALKALINE PHOSPHATASE 34 - 123 U/L 81 76 Creatinine: Creatinine Latest Ref Rng & Units 02/27/2022 05/02/2022 CREAT 0.58 - 0.96 mg/dL 0.73 0.81 ESR/CRP: ESR, WSR Latest Ref Rng & Units 12/03/2019 11/30/2021 WSR 0 - 20 mm/hr 2 9 CRP Latest Ref Rng & Units 08/06/2020 11/30/2021 CRP <0.9 mg/dL 3.1(H) 2.0(H) Uric Acid: None on file in the last 6 months Open Standing (Multiple Instance) Lab Orders None Open Future (Single Instance) Lab Orders Expected Expires Ordered ALT/SGPT [SQALT] 03/19/22 05/19/22 03/19/22 Auth. provider: Natasha Ray MD Assoc. diagnoses: Hyperlipidemia, unspecified hyperlipidemia type AST/SGOT BLD [SQAST] 03/19/22 05/19/22 03/19/22 Auth. provider: Natasha Ray MD Assoc. diagnoses: Hyperlipidemia, unspecified hyperlipidemia type BASIC METABOLIC PNL [SQBMP] 03/19/22 05/19/22 03/19/22 Auth. provider: Natasha Ray MD Assoc. diagnoses: Primary hypertension LIPID PANEL BASIC [SQLIPB] 03/19/22 05/19/22 03/19/22 Auth. provider: Natasha Ray MD Assoc. diagnoses: Hyperlipidemia, unspecified hyperlipidemia type documented in this encounterSelect [facility] [place]-01-2023 Miscellaneous Notes* Telephone Encounter - Gabby Buitrago RN - 05/16/2022 9:44 AM EST Patient calls in to request antibiotic again for UTI. Reviewed provider's message and patient was not happy. Patient reports that, I should not have to get out of my hospital bed to come in to be checked for an infection when I know that is what I have. This nurse explained we needed to evaluate for proper treatment and again offered appointment. Patient declined stating we were idiots and that she would go to an Urgent Care if she needed to be seen. Gabby Buitrago RN * Telephone Encounter - Smith Hollins RN - 05/16/2022 8:56 AM EST Left detailed vm on identified vm with provider's message below * Telephone Encounter - Lizbeth Pool MD - 05/16/2022 8:05 AM EST We don't call in abx over the phone. Patient needs to be evaluated for UTI. Recommend OV or EC visit so we can check UA. Push PO fluids in the meanwhile. * Telephone Encounter - Lexi Main LPN - 05/15/2022 3:59 PM EST Patient calling said she has UTI and wants rx sent to the pharmacy. Patient refuses to go to express care or schedule an appt. Patient said I am in my hospital bed and not getting out to get dressed and drive in for an appt, my sister can picker/puller rx for me. Aware PCP is out of office today. Patientsaid I have long history of UTI problems, used to cath myself for many years. [facility] Please advise documented in this encounterSelect [facility] [place]-24-2023 Miscellaneous Notes* Telephone Encounter - Gabby Buitrago RN - 05/08/2022 8:52 AM EST Call placed to patient with no answer. Message left for patient to return call to receive provider's message. Gabby Buitrago RN * Telephone Encounter - Sheyla Palafox APRN.CNP - 05/08/2022 8:35 AM EST Vitamin D improved, still mildly low. Continue vitamin D weekly. Lipase level down some from two months ago. If pain persists would notify Dr. Esparza or if increasing and developing nausea/vomiting would need to go to ER. The rest of her blood work is within normal limits. Continue current medications and follow- up in 6 months as recommended. Sheyla Palafox APRN.EDMUND documented in this encounterSelect [facility] [place]12-05-2022 Miscellaneous Notes* Telephone Encounter - Sarah Turner RN - 03/19/2022 4:22 PM EST Patient notified of results and provider's instructions. Patient verbalizes understanding. Sarah Turner RN * Telephone Encounter - Bernarda Terry LPN - 03/19/2022 2:20 PM EST Message left for patient to call back for update and ask for a triage nurse. Bernarda Terry LPN * Telephone Encounter - Bernarda Terry LPN - 03/19/2022 2:19 PM EST ----- Message from Lizbeth Pool MD sent at 03/19/2022 9:22 AM EST ----- CT scan negative for bowel obstruction. Noted mild pancreatic duct and bile duct dilation which is related to her congenital pancreatic deformity and history of gallbladder removal respectively. No masses or lesions noted. [facility] History of Present illness Narrative* Shania Garcia RT(R) - 03/19/2022 1:00 PM EST Radiology Service Progress Note PATIENT NAME: David Berg DATE OF SERVICE: March 19, 2022 TIME: 12:58 PM PATIENT IDENTITY VERIFICATION COMPLETED USING TWO (2) IDENTIFIERS: Name and Date of confirmedby patient verbally. FALL SCREENING: Has the patient had 2 falls in the last year or 1 fall with injury or currently using an Ambulatory Assistive Device (Walker, Cane, Wheelchair, Crutches, etc.)? No PATIENT GENDER DATA: Female. status: : No status: NO. PATIENT RELEVANT IMPLANT DATA REVIEWED: Not Applicable RADIOLOGY DEPARTMENT: General X-ray: Exam(s) Completed: Chest X-Ray PERIPHERAL IV DATA: Not applicable SIGNED BY: RT Le(R) March 19, 2022 12:58 PM [facility] this [facility] Instructions* Patient Instructions* Natasha Ray MD - 03/19/2022 11:38 AM EST We are going to repeat a carotid ultrasound Repeat fasting blood work prior to your next visit documented [facility] this [facility] History of Present illness Narrative* Natasha Ray MD - 03/19/2022 11:20 AM EST Images from the original note were not included. [facility] Cardiology ([facility]) [address] [facility] [id number] OUTPATIENT VISIT DATE 03/19/2022 PRIMARY CARE PHYSICIAN: Lizbeth Pool [address] [place] [address] HISTORY OF PRESENT ILLNESS: Ms. Berg is a 66 year old woman with a history of SVT (likely atrial tachycardia), syncope due toorthostatic hypotension, hyperlipidemia and prior smoking history who presents for routine follow-up. She had multiple hospital admissions between December and March 2020 for pancreatitis. Unfortunately, she went back to smoking a pack of cigarettes a day after hospital admissions. She does notroutinely check her blood pressure at home. She reports that she has been doing well from a functional standpoint without symptoms of shortness of breath. She has occasional episodes of sharp stabbing chest pain that tend to occur at rest or not reproducible on exertion. There is seem to be no exace rbating relieving factors. There is no associated nausea, vomiting, or shortness of breath. She hasnot had symptoms concerning for CHF including PND, orthopnea, or lower extremity edema PAST MEDICAL HISTORY Diagnosis Date Acute hepatitis C without mention of hepatic coma(070.51) negative RNA in 2016 Anxiety state 05/29/2005 Dr. Ryan Arthritis Bulimia 02/16/2013 Cervical vertebral fracture (HCC) 05/07/2011 Chronic obstructive pulmonary disease (COPD) (HCC) does not use inhalers. 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 Not on medications, not seeing neurology. 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 Choi-ID Prediabetes Psoriasis Rheumatoid arthritis involving multiple sites with positive rheumatoid factor (HCC) 12/13/[address] Bowden RLS (restless legs syndrome) 08/29/2011 Vasovagal syncope Vitamin D deficiency PAST SURGICAL HISTORY Procedure Laterality Date CHOLECYSTECTOMY [id number] lap COCHLEAR IMPLANT HX COLONOSCOPY FLX DX W/COLLJ SPEC WHEN PFRMD 10/11/2009 Colonoscopy COLONOSCOPY FLX DX W/COLLJ SPEC WHEN PFRMD 09/30/2018 Colonoscopy EGD EUS N/A 04/06/2020 diffusely dilated PD, suspected pancreas divisum, mild duodenitis ESOPHAGOGASTRODUODENOSCOPY TRANSORAL DIAGNOSTIC 09/30/2018 EGD IR VASCULAR ACCESS TEAM PICC INSERTION RADIO 02/08/2022 OPEN TREATMENT NASAL FRACTURE UNCOMPLICATED x2 no breathing problems PAST SURGICAL HISTORY OF X 2 PAST SURGICAL HISTORY OF FACIAL RECONSTRUCTION PAST SURGICAL HISTORY OF 1997 BILAT. SHOULDER SURGERY PAST SURGICAL HISTORY OF 1994 CERVICAL SPINE FUSION C4, C5 (had cervical fx x3 - even after repair) PAST SURGICAL HISTORY OF 1969 LEFT EAR CHOLESTEATOMA PAST SURGICAL HISTORY OF CLEFT LIP PAST SURGICAL HISTORY OF 02/2006 lasik PAST SURGICAL HISTORY OF 2004 bladder sling PAST SURGICAL HISTORY OF 08/09/2020 Upper endoscopy, percutaneous endoscopic gastrostomy (PEG) tube placed REMV CATARACT EXTRACAP,INSERT LENS Bilateral TRACHEOSTOMY EMERGENCY PROCEDURE TRANSTRACHEAL age 3 or 4 during surgery; lost airway SOCIAL HISTORY Social History Tobacco Use Smoking status: Every Day Packs/day: 1.00 Years: 30.00 Pack years: 30.00 Types: Cigarettes Smokeless tobacco: Never Vaping Use Vaping Use: Never used Substance Use Topics Alcohol use: No Drug use: No Comment: IV DRUG USER FAMILY HISTORY Problem Relation Age of Onset Stroke Mother Hypertension Mother Diabetes Father Cancer Father melanoma Kidney transplant Father Cancer Sister thyroid Breast Cancer Sister Breast Cancer Sister Cancer Brother 21 testicular Breast Cancer Maternal Aunt Cancer Other Y-pgwkvj-Aldjkvhefb ALLERGIES: ALLERGIES Allergen Reactions Acetaminophen Other: See Comments pt told not to take due to liver damage Bupropion Hcl Unknown Codeine Rash, Itching Darvon [Propoxyphen* Itching Daypro [Oxaprozin] Rash Effexor [Venlafaxin* Intolerance decreased libido Flexeril [Cyclobenz* GI Upset, Vomiting Gabapentin Mental Status Change hangover Ibuprofen Other: See Comments pt was told not to take due to kindey damage Stebbins [Hydrocodone-* GI Upset, Itching nausea, itching Oxybutynin Other: See Comments Urinary retention Pentazocine Itching Iberia Trees [Trees] rash Tramadol Intolerance MEDICATIONS: nicotine (NICOTROL) 10 mg inhaler^Inhale 1 Puff as instructed as needed.^Disp: 1 Each^Rfl: 1 polyethylene glycol 3350 (MIRALAX) 17 gram/dose powder^Take 17 g by mouth twice daily as needed forconstipation.^Disp: 507 g^Rfl: 1 omega 0-xgj-rtq-fish oil 1,000 mg (250 mg-750 mg)/5 mL liqd^Take 1,000 mg by mouth once daily.^Disp: ^Rfl: oiorfh-wxhytome-stflwav (CREON) 6,000-19,000 -30,000 unit delayed release capsule^Take 5 capsules by mouth with meals and at bedtime. currently not taking.^Disp: ^Rfl: folic acid 1 mg tablet^Take 1 mg by mouth once daily. Take with breakfast^Disp: ^Rfl: metoclopramide HCl (REGLAN) 10 mg tablet^Take 10 mg by mouth four times daily.^Disp: ^Rfl: cyanocobalamin (VITAMIN B-12) 1,000 mcg tab^Take 1,000 mcg by mouth once daily.^Disp: ^Rfl: ergocalciferol 50,000 unit capsule (VITAMIN D2, DRISDOL)^Take 1 capsule by mouth one time a week.^Disp: 12 capsule^Rfl: 1 calcium carbonate 600 mg-cholecalciferol 400 units (CALCIUM 600 + D) 600 mg-10 mcg (400 unit) tab^Take 1 tablet by mouth once daily.^Disp: 30 tablet^Rfl: 12 qliepc-jnyqphtd-ujubnfz (CREON) 6,000-19,000 -30,000 unit delayed release capsule^Take 2 capsules by mouth with meals and at bedtime.^Disp: 240 capsule^Rfl: 3 Nebulizers^1 Each once daily.^Disp: 1 Each^Rfl: 0 Blood Pressure Monitor (BLOOD PRESSURE KIT)^1 Each once daily as needed. Dx: recurrent syncope R55^Disp: 1 Kit^Rfl: 0 ALPRAZolam (XANAX) 1 mg tablet^Take 1 mg by mouth twice daily.^Disp: ^Rfl: QUEtiapine (SEROQUEL) 100 mg tablet^Take 2 tablets by mouth daily at bedtime.^Disp: 180 tablet^Rfl:1 water for injection solp with amino acids 10% (FREAMINE)(Standard), dextrose, adult multiple vitamin (> 40 Kg) 10 mL, fat emulsion 30% emul^Inject 1,900 mL intravenously once daily.^Disp: ^Rfl: (Patient not taking: Reported on 02/21/2022) abatacept (ORENCIA) 125 mg/mL^INJECT THE CONTENTS OF 1 SYRINGE (125 MG) UNDER THE SKIN ONCE EACH WEEK (NO ADDITIONAL REFILLS UNTIL OFFICE VISIT 10/11/2021)^Disp: 4 mL^Rfl: 5 (Patient taking differently: Inject subcutaneously. INJECT THE CONTENTS OF 1 SYRINGE (125 MG) UNDER THE SKIN ONCE EACH WEEK (NO ADDITIONAL REFILLS UNTIL OFFICE VISIT 10/11/2021)) guaiFENesin-dextromethorphan (ROBITUSSIN DM) 100-10 mg/5 mL syrup^Take 10 mL by mouth every 4 hoursas needed for cough.^Disp: ^Rfl: (Patient not taking: Reported on 02/21/2022) pantoprazole DR (PROTONIX) 40 mg tablet^Take 1 tablet by mouth DAILY (6 AM).^Disp: 30 tablet^Rfl: 0 losartan (COZAAR) 25 mg tablet^Take 1 tablet by mouth once daily.^Disp: 90 tablet^Rfl: 1 (Patient not taking: No sig reported) Food Supplement, Lactose-Free (ENSURE ORIGINAL) liqd^Take 237 mL by mouth three times daily with meals.^Disp: 90 mL^Rfl: 3 (Patient not taking: Reported on 02/21/2022) atorvastatin (LIPITOR) 40 mg tablet^Take 0.5 tablets by mouth daily at bedtime. For cholesterol.^Disp: 90 tablet^Rfl: 3 (Patient not taking: No sig reported) albuterol (PROVENTIL) 2.5 mg /3 mL (0.083 %) nebulizer solution^Use 3 mL via nebulizer every 4 hours as needed for wheezing/shortness of breath. Use over 5- 15minutes.^Disp: 3 mL^Rfl: 1 (Patient not taking: Reported on 02/21/2022) REVIEW OF SYSTEMS: Review of Systems Constitutional: Negative for chills, fever, malaise/fatigue and weight loss. HENT: Negative for hearing loss and sore throat. Eyes: Negative for blurred vision and double vision. Respiratory: Negative. Cardiovascular: Negative. Gastrointestinal: Positive for abdominal pain, heartburn and nausea. Negative for blood in stool, constipation, diarrhea, melena and vomiting. Genitourinary: Negative for dysuria, frequency, hematuria and urgency. Musculoskeletal: Negative. Skin: Negative. Neurological: Negative for dizziness, seizures, loss of consciousness, weakness and headaches. Endo/Heme/Allergies: Negative for environmental allergies. Does not bruise/bleed easily. Psychiatric/Behavioral: Negative for depression. PHYSICAL EXAMINATION: BP 112/70 (BP Site: Right Arm, BP Position: Sitting, BP Cuff Size: Large Adult) Pulse 84 Wt 132lb (59.9 kg) BMI 22.66 kg/m General: Thin somewhat cachectic woman sitting appears comfortable mildly anxious no apparent distress. HEENT: Carotid upstrokes are brisk bilaterally without bruits. No JVD appreciated. Pulmonary: Lungs are clear no rales, wheezes, rhonchi Cardiovascular: Normal S1, S2 with regular rate and rhythm. No murmurs, rubs, or gallops appreciated. Abdomen: Soft, flat, diminished bowel sounds. Place. No erythema. Extremities: Warm, well-perfused, no lower extremity edema. CARDIOVASCULAR MEDICINE TESTING: Echocardiogram 01/19/2022: - Technically difficult exam due to uncooperative patient and respiratory interference. - Exam indication: Abnormal ECG - The left ventricle is normal in size. There is no left ventricular hypertrophy. Left ventricular systolic function is normal. EF = 56 5% (3D) Grade I left ventricular diastolic dysfunction. - The right ventricle is normal in size. Right ventricular systolic function is normal. - No significant valve disease: Trivial AI, 1-2+ MR, trivial TR - The patient has not had a prior echocardiographic exam for comparison. Echocardiogram 04/22/2020: CONCLUSIONS: - Exam indication: Syncope - The left ventricle is normal in size. Left ventricular systolic function is normal. EF = 63 5% (2D biplane) Normal left ventricular diastolic function. - The right ventricle is normal in size. Right ventricular systolic function is normal. - There is LINDSAY at rest with an LVOT gradient of 3 mmHg. No change with valsalva. No evidence of significant outflow tract obstruction. - Exam was compared with the prior echocardiographic exam performed on 02/17/2013 (Stress). There has been no change. Extended Monitor 02/08/20-02/22/20: Patient had a min HR of 45 bpm, max HR of 182 bpm, and avg HR of 79bpm. Predominant underlying rhythm was Sinus Rhythm. 376 Supraventricular Tachycardia runs occurred, the run with the fastest interval lasting 4 beats with a max rate of 182 bpm, the longest lasting 2 mins 43 secs with an avg rate of 133 bpm. Supraventricular Tachycardia was detected within +/- 45 seconds of symptomatic patient event(s). Isolated SVEs were rare (<1.0%), SVE Couplets were rare (<1.0%), andSVE Triplets were rare (<1.0%). Isolated VEs were rare (<1.0%), and no VE Couplets or VE Triplets were present. Holter monitor 12/29/2019: IMPRESSIONS AND FINDINGS: Sinus rhythm Maximum HR-144 bpm, minimum HR-52 bpm. Average HR-79 bpm. Very rare SVEs were seen as singles. Runs of SVT / atrial tachycardia were present. Longest run 16 beats, 108 bpm, fastest run 7 beats, 112 bpm. One VE was seen as a single. No symptoms noted on patient diary. Patient event markers were not activated. Brief Interpretation ; Sinus rhythm ; Supraventricular ectopy ; atrial/supraventricular tachycardiarun(s) ; ventricular ectopic Carotid ultrasound 05/15/2019: IMPRESSION RIGHT SIDE Internal carotid artery: 40-59% stenosis. Tortuous vessel from mid to distal . Degree of stenosis may be overestimated due to tortuosity at mid to distal vessel. Vertebral artery: Patent and antegrade flow noted. High resistive signal suggests non-dominant vessel or more distal disease; clinical correlation is suggested. Innominate artery: Unable to visualize. Subclavian artery: Unable to visualized origin. Proximal vessel is patent. LEFT SIDE Internal carotid artery: 20-39% stenosis. Vertebral artery: Patent and antegrade flow noted. Lexiscan Myoview stress test 04/30/2018: CONCLUSIONS: 1. SPECT Perfusion Study: Normal. 2. There is no scintigraphic evidence for inducible ischemia. 3. No evidence of scarred myocardium. 4. Functional capacity N/A (pharmacological). 5. Left ventricle is normal in size. The left ventricle systolic function is hyperdynamic. 6. This is a low risk scan. Gated Stress FBP LVEF % 84 CT chest without IV contrast 12/28/2019: Heart, pericardium, and thoracic vessels: The thoracic aorta and main pulmonary artery are normal in caliber. The cardiac chambers are normal in size. No coronary artery atherosclerotic calcifications are noted, although the study is not optimized for coronary assessment. No pericardial effusion orthickening. IMPRESSION: Ms. Berg is a 66 year old woman with multiple medical problems and syncope secondary to orthostatic hypotension. She has history of SVT likely atrial tachycardia with associated feelings of palpitations. Her risk factors for coronary disease include a longstanding history of smoking, known carotid artery disease, and dyslipidemia. She had a low risk stress test completed in 2019. PLAN AND RECOMMENDATIONS: 1. Palpitations - ICD9: 785.1, ICD10: R00.2 (primary diagnosis) No recurrent symptoms concerning for SVT. 2. Orthostatic hypotension - ICD9: 458.0, ICD10: I95.1 Patient remains asymptomatic. She has gained weight since her recent hospital admission for pancreatitis. 3. Primary hypertension - ICD9: 401.9, ICD10: I1 - BASIC METABOLIC PNL 4. Hyperlipidemia, unspecified hyperlipidemia type - ICD9: 272.4, ICD10: E78.5 Patient has been noncompliant with her Lipitor. I discussed the need for cholesterol management given her history. - ALT/SGPT - AST/SGOT BLD - LIPID PANEL BASIC 5. Vasovagal syncope - ICD9: 780.2, ICD10: R55 No recurrent events 6. Bilateral carotid artery stenosis - ICD9: 433.10, 433.30, ICD10: I65.23 No symptoms concerning for TIA or CVA. I discussed smoking cessation with her in detail. She is planning to picker/puller a prescription for Nicotrol. - US CAROTID ARTERIES [facility] Natasha Ray MD documented in this encounterSelect [facility] [place]12-[facility]-2022 Miscellaneous Notes* Telephone Encounter - Pam Smith (Pharmacy It Security Consultant) - 03/19/2022 8:22 AM EST === PHARMACY TEAM ==== ADDITIONAL INFORMATION NEEDED/REQUESTED Case Submitted: Yes Request Type: Provider Date of Service: TBD Additional Information Needed: patient consent form for appeal Request from Payor by: Phone Email Sent to: DELORIS JUAREZ Melanie Cao, Kami Knight via telephone encounter Requested Clinicals/Information Sent: N/A Comments: Called [facility] @[phone] spoke with Osvaldojuliagracy, advised they received another appeal on 03/12 but it is still missing patient consent form. I have uploaded with member consent form into[employer],on 03/09 ([facility]) please have patient sign and fax along with appeal to [employer]. [facility] will not accept an appeal without the consent form from the patient. documented in this encounterSelect Medical [facility]ty [facility] [place]12-02-2022 History of Present illness Narrative* Reef Jody Kinsey RT(R) - 03/16/2022 11:00 AM EST Radiology Service Progress Note DATE OF SERVICE: March 16, 2022 TIME: 12:35 PM PATIENT IDENTITY VERIFICATION COMPLETED USING TWO (2) STANDARD IDENTIFIERS: Name and Date of confirmed by patient verbally. FALL SCREENING: Has the patient had 2 falls in the last year or 1 fall with injury or currently using an Ambulatory Assistive Device (Walker, Cane, Wheelchair, Crutches, etc.)? No PATIENT GENDER DATA: Female. status: : No status: NO. PATIENT RELEVANT IMPLANT DATA REVIEWED: Yes ALLERGIES: Reviewed and unchanged CONTRAST ALLERGY: NO. EXAM: CT -CONTRAST INDUCED NEPHROPATHY RISK FACTORS: Patient age > 60 years CREATININE: Creatinine Date Value Ref Range Status 02/27/2022 0.73 0.58 - 0.96 mg/dL Final 02/20/2022 0.61 0.58 - 0.96 mg/dL Final 02/15/2022 0.55 0.51 - 0.95 mg/dL Final Comment: Patients receiving either N-Acetylcysteine (NAC) or Metamizole prior to venipuncture, may have falsely depressed results. Estimated Glomerular Filtration Rate Date Value Ref Range Status 02/27/2022 92 >=60 mL/min/1.73m Final Comment: Estimated Glomerular Filtration Rate (eGFR) is calculated using the 2020 CKD-EPI creatinine equation. This equation utilizes serum creatinine, sex, and age as parameters. The creatinine assay has traceable calibration to isotope dilution- mass spectrometry. Refer to KDIGO guidelines for clinical interpretation. In patients with unstable renal function, e.g. those with acute kidney injury, the eGFRmay not accurately reflect actual GFR. eGFR- Date Value Ref Range Status 02/10/2021 >60 Final P.O.C.T. RESULTS: POC done: Yes, See Lab Tab March 16, 2022 TREATMENT: N/A PERIPHERAL IV DATA: Ambulatory: A peripheral IV was started in the Left antecubital site with a Angio cath: 22 gauge. RADIOLOGY DEPARTMENT: CT; Exam(s) Completed: Abdomen/Pelvis SIGNATURE: RT Sobia(R) PATIENT NAME: David Berg DATE: March 16, 2022 TIME: 12:35 PM documented in this encounterSelect Medical Specialty [facility] [place]11-30-2022 Miscellaneous Notes* Telephone Encounter - Pam Smith (Pharmacy It Security Consultant) - 03/14/2022 8:15 AM EST ==PHARMACY TEAM== PEER TO PEER/APPEAL REQUESTED Dept. Notification for Rheumatology Reason for Denial: Coverage is provided when the member has had a 12 month trial of a bisphosphonate taken by mouth, such as aledronate or risendronate or a bisphophonate given by injection such as zolendronic acid (reclast) or ibrandronate. Servicing Location Tax ID: [id number] Sent to: DELORIS JUAREZ Melanie Cao, Maria Lyatkher, Cari Culver via telephone encounter P2P or Appeal: Appeal Diagnosis & Dx Code Submitted: M81.0 (ICD-10-CM) - Age-related osteoporosis without current pathological fracture Drug & CPT/HCPCS code submitted: Morgan [id number] Dose & Frequency Submitted: 60 mg every 6 months Contact Name (if applicable): n/a How to complete (verbal or written): written Phone # to call (if verbal): n/a Timeframe to complete/Call to Schedule: 60 days Pending Case/Reference #: [id number] Letter scanned in chart (Y/N): Yes Comments: Called [facility] @[phone] spoke with Mary, advised they did not receive an appeal only seeing the appeal that was closed due to not having member consent with appeal on 02/27. I haveuploaded with member consent form into scanned documents, please have patient sign and fax along with appeal to [employer]. documented in this encounterSelect Medical [facility]ty [facility] [place]11-28-2022 History of Present illness Narrative* Vonnie Esparza MD - 03/12/2022 8:19 PM EST Patient referred by: Dr. Abundio Fu MD HPI: This is a follow-up patient visit from Dr. Fu. 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 She has a history of recurrent episodes of acute pancreatitis occurring several times a month. She has a history of steatorrhea, severe protein calorie malnutrition and weight loss. She underwent a cholecystectomy with me a few months ago. Recently she also had an ERCP with Dr. Vaz where she was found to have an ampullary stricture, very strictured and tortuous pancreatic duct where he was only able to place a short pancreatic duct stent. Unfortunately after her ERCP she developed a contained duodenal perforation which needed to be managed nonoperatively. Following this, she underwent a PEG tube placement for nutritional supplementation however she did not tolerate it well and had it removed. She subsequently underwent a repeat ERCP with PD stenting which helped her for a few months. She subsequently developed recurrent abdominal pain clinically seco ndary to pancreatitis and underwent another attempted ERCP with PD stenting. At that time she suffered from another duodenal perforation and needed admitted to the hospital. Following admission to the hospital she required drain placement and antibiotic therapy. During her hospitalization she was offered IV nutritional supplementation because of her severe protein calorie malnutrition however shedeclined. She was then discharged home. She recently suffered from an episode of pneumonia and was admitted to [facility] where she required an additional drain placement. It appears that parenteral nutrition was recommended there aswell. she was recently admitted to our hospital again. The drains were examined and removed during the hospital stay. She presents today for follow up. States that she has been eating well. She has not bee using TPN any more. She does not have much pain. No nausea/vomiting. No fevers/chills. Urine and stool color are normal. No jaundice. PAST MEDICAL HISTORY Diagnosis Date Acute hepatitis C without mention of hepatic coma(070.51) negative RNA in 2016 Anxiety state 05/29/2005 Dr. Ryan Arthritis Bulimia 02/16/2013 Cervical vertebral fracture (HCC) 05/07/2011 Chronic obstructive pulmonary disease (COPD) (HCC) does not use inhalers. 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 Not on medications, not seeing neurology. 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 Choi-ID Prediabetes Psoriasis Rheumatoid arthritis involving multiple sites with positive rheumatoid factor (HCC) 12/13/[address] Bowden RLS (restless legs syndrome) 08/29/2011 Vasovagal syncope Vitamin D deficiency PAST SURGICAL HISTORY Procedure Laterality Date CHOLECYSTECTOMY [id number] lap COCHLEAR IMPLANT HX COLONOSCOPY FLX DX W/COLLJ SPEC WHEN PFRMD 10/11/2009 Colonoscopy COLONOSCOPY FLX DX W/COLLJ SPEC WHEN PFRMD 09/30/2018 Colonoscopy EGD EUS N/A 04/06/2020 diffusely dilated PD, suspected pancreas divisum, mild duodenitis ESOPHAGOGASTRODUODENOSCOPY TRANSORAL DIAGNOSTIC 09/30/2018 EGD IR VASCULAR ACCESS TEAM PICC INSERTION RADIO 02/08/2022 OPEN TREATMENT NASAL FRACTURE UNCOMPLICATED x2 no breathing problems PAST SURGICAL HISTORY OF X 2 PAST SURGICAL HISTORY OF FACIAL RECONSTRUCTION PAST SURGICAL HISTORY OF 1997 BILAT. SHOULDER SURGERY PAST SURGICAL HISTORY OF 1994 CERVICAL SPINE FUSION C4, C5 (had cervical fx x3 - even after repair) PAST SURGICAL HISTORY OF 1969 LEFT EAR CHOLESTEATOMA PAST SURGICAL HISTORY OF CLEFT LIP PAST SURGICAL HISTORY OF 02/2006 lasik PAST SURGICAL HISTORY OF 2004 bladder sling PAST SURGICAL HISTORY OF 08/09/2020 Upper endoscopy, percutaneous endoscopic gastrostomy (PEG) tube placed REMV CATARACT EXTRACAP,INSERT LENS Bilateral TRACHEOSTOMY EMERGENCY PROCEDURE TRANSTRACHEAL age 3 or 4 during surgery; lost airway FAMILY HISTORY Problem Relation Age of Onset Stroke Mother Hypertension Mother Diabetes Father Cancer Father melanoma Kidney transplant Father Cancer Sister thyroid Breast Cancer Sister Breast Cancer Sister Cancer Brother 21 testicular Breast Cancer Maternal Aunt Cancer Other Q-vathbo-Lljshwjvgq Social History Tobacco Use Smoking status: Every Day Packs/day: 1.00 Years: 30.00 Pack years: 30.00 Types: Cigarettes Smokeless tobacco: Never Vaping Use Vaping Use: Never used Substance Use Topics Alcohol use: No Drug use: No Comment: IV DRUG USER Current Outpatient Medications Medication Sig omega 0-lek-ftx-fish oil 1,000 mg (250 mg-750 mg)/5 mL liqd Take 1,000 mg by mouth once daily. folic acid 1 mg tablet Take 1 mg by mouth once daily. Take with breakfast metoclopramide HCl (REGLAN) 10 mg tablet Take 10 mg by mouth four times daily. cyanocobalamin (VITAMIN B-12) 1,000 mcg tab Take 1,000 mcg by mouth once daily. pantoprazole DR (PROTONIX) 40 mg tablet Take 1 tablet by mouth DAILY (6 AM). ergocalciferol 50,000 unit capsule (VITAMIN D2, DRISDOL) Take 1 capsule by mouth one time a week. calcium carbonate 600 mg-cholecalciferol 400 units (CALCIUM 600 + D) 600 mg-10 mcg (400 unit) tab Take 1 tablet by mouth once daily. Nebulizers 1 Each once daily. Blood Pressure Monitor (BLOOD PRESSURE KIT) 1 Each once daily as needed. Dx: recurrent syncope R55 ALPRAZolam (XANAX) 1 mg tablet Take 1 mg by mouth twice daily. QUEtiapine (SEROQUEL) 100 mg tablet Take 2 tablets by mouth daily at bedtime. nicotine (NICOTROL) 10 mg inhaler Inhale 1 Puff as instructed as needed. polyethylene glycol 3350 (MIRALAX) 17 gram/dose powder Take 17 g by mouth twice daily as needed forconstipation. zmlsgh-qbmsheio-qtsmtld (CREON) 6,000-19,000 -30,000 unit delayed release capsule Take 5 capsules by mouth with meals and at bedtime. currently not taking. water for injection solp with amino acids 10% (FREAMINE)(Standard), dextrose, adult multiple vitamin (> 40 Kg) 10 mL, fat emulsion 30% emul Inject 1,900 mL intravenously once daily. (Patient not taking: Reported on 02/21/2022) abatacept (ORENCIA) 125 mg/mL INJECT THE CONTENTS OF 1 SYRINGE (125 MG) UNDER THE SKIN ONCE EACH WEEK (NO ADDITIONAL REFILLS UNTIL OFFICE VISIT 10/11/2021) (Patient taking differently: Inject subcutaneously. INJECT THE CONTENTS OF 1 SYRINGE (125 MG) UNDER THE SKIN ONCE EACH WEEK (NO ADDITIONAL REFILLS UNTIL OFFICE VISIT 10/11/2021)) guaiFENesin-dextromethorphan (ROBITUSSIN DM) 100-10 mg/5 mL syrup Take 10 mL by mouth every 4 hoursas needed for cough. (Patient not taking: Reported on 02/21/2022) losartan (COZAAR) 25 mg tablet Take 1 tablet by mouth once daily. (Patient not taking: No sig reported) ycwjdf-pbpewuit-kbwpgkt (CREON) 6,000-19,000 -30,000 unit delayed release capsule Take 2 capsules by mouth with meals and at bedtime. Food Supplement, Lactose-Free (ENSURE ORIGINAL) liqd Take 237 mL by mouth three times daily with meals. (Patient not taking: Reported on 02/21/2022) atorvastatin (LIPITOR) 40 mg tablet Take 0.5 tablets by mouth daily at bedtime. For cholesterol. (Patient not taking: No sig reported) albuterol (PROVENTIL) 2.5 mg /3 mL (0.083 %) nebulizer solution Use 3 mL via nebulizer every 4 hours as needed for wheezing/shortness of breath. Use over 5- 15minutes. (Patient not taking: Reported on02/21/2022) Current Facility-Administered Medications Medication Dose Route Frequency Adult Home Parenteral Nutrition 3:1 INTRAVENOUS DAILY ALLERGIES Allergen Reactions Acetaminophen Other: See Comments pt told not to take due to liver damage Bupropion Hcl Unknown Codeine Rash, Itching Darvon [Propoxyphen* Itching Daypro [Oxaprozin] Rash Effexor [Venlafaxin* Intolerance decreased libido Flexeril [Cyclobenz* GI Upset, Vomiting Gabapentin Mental Status Change hangover Ibuprofen Other: See Comments pt was told not to take due to kindey damage Stebbins [Hydrocodone-* GI Upset, Itching nausea, itching Oxybutynin Other: See Comments Urinary retention Pentazocine Itching Iberia Trees [Trees] rash Tramadol Intolerance REVIEW OF SYSTEMS: Review of Systems Constitutional: Negative for chills, fever, malaise/fatigue and weight loss. Respiratory: Negative for cough, shortness of breath and wheezing. Cardiovascular: Negative for chest pain, orthopnea and leg swelling. Gastrointestinal: Negative for abdominal pain, blood in stool, constipation, diarrhea, heartburn, melena, nausea and vomiting. Genitourinary: Negative for dysuria and frequency. Musculoskeletal: Negative for falls and myalgias. Skin: Negative for rash. Neurological: Negative for dizziness, tingling, tremors and weakness. Endo/Heme/Allergies: Does not bruise/bleed easily. Psychiatric/Behavioral: Negative for depression, substance abuse and suicidal ideas. The patient isnot nervous/anxious and does not have insomnia. PHYSICAL EXAM: BP 130/58 Pulse 90 Ht 5' 4 (1.63m) Wt 130 lb (59.0kg) SpO2 93% BMI 22.30 kg/(m^2). Last 2 Encounter Wt Readings: Date: Wt: 02/27/2022 57.9 kg (127 lb 9.6 oz) 02/26/2022 57.6 kg (127 lb) Physical Exam Vitals reviewed. Constitutional: General: She is not in acute distress. Appearance: She is not diaphoretic. HENT: Head: Normocephalic. Eyes: General: No scleral icterus. Conjunctiva/sclera: Conjunctivae normal. Pupils: Pupils are equal, round, and reactive to light. Neck: Thyroid: No thyromegaly. Trachea: No tracheal deviation. Cardiovascular: Rate and Rhythm: Regular rhythm. Pulmonary: Effort: Pulmonary effort is normal. No respiratory distress. Breath sounds: No wheezing. Chest: Chest wall: No tenderness. Abdominal: General: There is no distension. Palpations: There is no mass. Tenderness: There is no abdominal tenderness. There is no guarding or rebound. Hernia: No hernia is present. Comments: Prior incisions are all well healed without any signs of infection or hernia. Musculoskeletal: General: No tenderness or deformity. Normal range of motion. Cervical back: Normal range of motion and neck supple. Lymphadenopathy: Cervical: No cervical adenopathy. Skin: General: Skin is warm and dry. Coloration: Skin is not pale. Findings: No erythema or rash. Neurological: Mental Status: She is alert and oriented to person, place, and time. Coordination: Coordination normal. Psychiatric: Mood and Affect: Mood and affect normal. DATA: Diagnostic tests reviewed for today's visit Most recent labs Most recent imaging Most recent endoscopy I spent a total of 60 minutes on the date of the service which included preparing to see the patient, kzvt-ez-quxx patient care, completing clinical documentation, obtaining and/or reviewing separately obtained history, performing a medically appropriate examination, counseling and educating the pat ient/family/caregiver, communicating with other HCPs (not separately reported), independently interpreting results (not separately reported), and communicating results to the patient/family/caregiver. ASSESSMENT / PLAN: Problem List Items Addressed This Visit Gastrointestinal Severe protein-calorie malnutrition (HCC) Other Visit Diagnoses Ampullary stenosis - Primary Idiopathic chronic pancreatitis (HCC) Medical Decision Making: Problems: Moderate: New problem with uncertain prognosis and 2+ stable chronic illnesses Data: Unique source(s) for external note(s) reviewed: 3+ Unique test result(s) reviewed: 3+ Discussed management or test w/ external physician/QHCP/source Risk: Moderate: Drug management High: High risk from testing/treatment and Decision on elective major surgery w/ risk factors Medical Decision Making Level: 5 - High In summary, this is a 66 y/o lady with 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 After her most recent stenting, she suffered from yet another duodenal perforation, causing several periduodenal/retroperitoneal abscesses - these too were managed non operatively with percutaneous drains. At this time, she has recovered well from this episode however she is still dealing with the ampullary stenosis. It appears that her symptoms are reasonably well controlled at this time. We will follow her clinically for now. She will reach out to us if her symptoms recur. If they do recur, she will no longer be a candidate for safe endoscopic interventions - her only options would be a surgical pancreatic drainage procedure - whipple/peustow. All questions concerns were addressed. She showed good understanding and agreed to proceed. Vonnie Esparza MD documented in this encounterSelect Medical [facility]ty [facility] [place]11-28-2022 Miscellaneous Notes* Telephone Encounter - Lizbeth Pool MD - 03/12/2022 8:05 AM EST Reviewed. * Telephone Encounter - Sen Brown RN - 03/12/2022 7:[address] Pool, This is notification that your patient was discharged from any further home care services as of 02/26/22. No longer taking TPN, no further skilled need noted. Patient was instructed to follow up withher medical team for any future medical concerns. Thank you for choosing [facility] for [facility] to serve your patient's home care needs. Sen Brown RN documented in this encounterSelect Medical Specialty [facility] [place]11-25-2022 Miscellaneous Notes* Telephone Encounter - Pam Smith (Pharmacy Srinivas) - 03/09/2022 9:07 AM EST ==PHARMACY TEAM== PEER TO PEER/APPEAL REQUESTED Dept. Notification for Rheumatology Reason for Denial: M81.0 (ICD-10-CM) - Age-related osteoporosis without current pathological fracture Servicing Location Tax ID: [id number] Sent to: DELORIS JUAREZ Melanie Cao, Maria Lyatkher, Cari Culver via telephone encounter P2P or Appeal: Appeal Diagnosis & Dx Code Submitted: M81.0 (ICD-10-CM) - Age-related osteoporosis without current pathological fracture Drug & CPT/HCPCS code submitted: Morgan [id number] Dose & Frequency Submitted: 60 mg every 6 months Contact Name (if applicable): n/a How to complete (verbal or written): written Phone # to call (if verbal): n/a Timeframe to complete/Call to Schedule: 60 days Pending Case/Reference #: [id number] Letter scanned in chart (Y/N): Yes Comments: I have uploaded with member consent form into scanned documents, please have patient signand fax along with appeal [facility] documented in this encounterSelect Medical Specialty [facility] [place]11-23-2022 History of Present illness Narrative* Hilda Amos RN - 03/07/2022 2:03 PM EST TRANSITION CARE MANAGEMENT (TCM) FOLLOW-UP NOTE Provider Action/FYI CT 03.07.22 Card .09.03 TCM Follow up day 25 Denies new or worsening symptoms Denies n/v States did not know she had a CT apt today and will call to reschedule Reviewed upcoming Card apt Denies further questions or concerns Patient identified by name and date of : YES Spoke to patient SUMMARY: Pt discharged from [place] on 02/09. Admitted for: Nausea and vomiting s/p abcess RUQ abd Medical Communication Specialist plan for next outreach: No further follow up needed at this time Hilda Amos ENTER[employer]ING CONSULTANT Primary Care Transitional Medical Communication Specialist [facility] March 07, 2022 documented in this encounterSelect Medical Specialty [facility] [place]11-22-2022 Miscellaneous Notes* Telephone Encounter - PIERCE Menon - 03/06/2022 1:07 PM EST In looking over pt chart, [facility] [facility] * Telephone Encounter - Bernarda Terry LPN - 02/28/2022 8:30 AM EST TC to central scheduling. Went to again. Bernarda Terry LPN * Telephone Encounter - Julia Arredondo LPN - 02/27/2022 6:10 PM EST Phoned Central Scheduling at [facility] and message left in attempt to see if STAT CT for patient could bescheduled with them sooner than 03/02/22. Faxed order and demographics for patient. Please cancel 03/02/22 CT with [facility] if [facility] can get patient in sooner. documented in this encounterSelect Medical Specialty [facility] [place]11-18-2022 Miscellaneous Notes* Telephone Encounter - Julia Arredondo LPN - 03/02/2022 9:24 AM EST Updated patient with provider's message. She voiced understanding. * Telephone Encounter - Lizbeth Pool MD - 03/01/2022 5:02 PM EST She has both a prevnar and pneumovax documented in 2014 for same day which is likely an error. Pneumovax completed in 2002. Should be up to date. * Telephone Encounter - Lexi Main LPN - 03/01/2022 8:11 AM EST Patient calling asking about having a pneumovax and flu shot? She had appt on Saturday and forgot toask. Her last pneumovax was given in 2014. Please advise documented in this encounterSelect Medical [facility]ty [facility] [place]11-16-2022 History of Present illness Narrative* Lizbeth Pool MD - 02/28/2022 4:55 PM EST Reviewed. * Hilda Amos RN - 02/28/2022 3:11 PM EST TRANSITION CARE MANAGEMENT (TCM) FOLLOW-UP NOTE Provider Action/FYI TCM Follow up day 18 Dr Pool Per patients request, shared results of labs from yesterday Patient would like provider to contact with her with next steps for abnormal values Denies new or worsening symptoms Denies abdominal pain, nausea, vomiting Eating and hydrating well Unable to access MyChart d/t forgotten pass word; [employer] support number provided Patient identified by name and date of : YES Spoke to patient SUMMARY: Pt discharged from [place] on 02/09. Admitted for: Nausea and vomiting s/p abcess RUQ abd Medical Communication Specialist plan for next outreach: Will follow up 7 days Hilda Amos [employer] Primary Care Transitional Medical Communication Specialist [facility] February 28, 2022 documented in this [facility] History of Present illness Narrative* Lizbeth Pool MD - 02/27/2022 2:20 PM EST Chief Complaint Patient presents with: Hospital F/U [facility] David Berg is a 66 year old female who presents here today for Hospital Discharge Follow up. Patient was initially admitted to [facility] from 01/22 to 02/01 for failure to thrive and encephalopathy after just being discharged from [facility] on 01/21 for pancreatitis and drain placement after perforation. Discharged on Bactrim, Augmentin, and fluconazole. GI and ID consulted. PICC line considered for nu trition, but appetite improved significantly during her stay and was able to tolerate PO diet priorto discharge. Recommended whipple procedure for chronic pancreatitis and pancreatic stricture whichshe refused. Repeat CT abdomen negative for abscess. Transitioned to PO Bactrim, Augmentin, and fluconazole for 14 days total. IV dye run through drains to assess for residual perforation prior to discharge with 1 being inconclusive and the other was negative. GI recommending f/u in 1 week with to pull drains if able. Had follow up with Dr. Esparza on 02/07 and was readmitted to hospital from 02/07 to 02/09 with following hospital course: SUMMARY OF WHAT HAPPENED WHILE I WAS IN THE HOSPITAL: You were direct admitted to the hospital after seeing Dr. Esparza in the office and having nausea and vomiting. Nutrition was consulted and you were started on TPN. Since hospitalization, your nausea has been controlled. You had an updated CT scan which demonstrated resolution of your abscess in the RUQ and IR removed your drains. You are eating and are stable and ready for discharge. Since discharge, TPN managed by Dr. Oro up until 02/21 when she refused additional TPN and PICC line was removed. She told them she had been tolerating PO diet and weight was up [address] [facility]. Reviewing patient's recent weights, she is actually down 6 lbs in the last 11 days. She states that shewas not being honest about her oral intake and has actually only been eating 1 bowl of oatmeal and 2 yogurts per day. She continues to have pain epigastric pain which is exacerbated with eating. Has been taking Creon as prescribed. Admits to constipation and denies fever, chills, nausea, vomiting, diarrhea. Would like refill for Miralax for her constipation. Taking Advil for her pain and has oxyco done for breakthrough pain, but makes her itch. Back to smoking 2 packs per day and would like rx for Nicotrol. Able to perform ADLs. Did not need PT/OT on discharge. Has not had any falls. Able to ambulate without cane or walker. Past medical history, appointments, medications, allergies reviewed. Previous Medical History PAST MEDICAL HISTORY Diagnosis Date Acute hepatitis C without mention of hepatic coma(070.51) negative RNA in 2016 Anxiety state 05/29/2005 Dr. Ryan Arthritis Bulimia 02/16/2013 Cervical vertebral fracture (HCC) 05/07/2011 Chronic obstructive pulmonary disease (COPD) (HCC) does not use inhalers. 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 Not on medications, not seeing neurology. 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 Choi-ID Prediabetes Psoriasis Rheumatoid arthritis involving multiple sites with positive rheumatoid factor (HCC) 12/13/[address] Bowden RLS (restless legs syndrome) 08/29/2011 Vasovagal syncope Vitamin D deficiency Previous Surgical History PAST SURGICAL HISTORY Procedure Laterality Date CHOLECYSTECTOMY [id number] lap COCHLEAR IMPLANT HX COLONOSCOPY FLX DX W/COLLJ SPEC WHEN PFRMD 10/11/2009 Colonoscopy COLONOSCOPY FLX DX W/COLLJ SPEC WHEN PFRMD 09/30/2018 Colonoscopy EGD EUS N/A 04/06/2020 diffusely dilated PD, suspected pancreas divisum, mild duodenitis ESOPHAGOGASTRODUODENOSCOPY TRANSORAL DIAGNOSTIC 09/30/2018 EGD IR VASCULAR ACCESS TEAM PICC INSERTION RADIO 02/08/2022 OPEN TREATMENT NASAL FRACTURE UNCOMPLICATED x2 no breathing problems PAST SURGICAL HISTORY OF X 2 PAST SURGICAL HISTORY OF FACIAL RECONSTRUCTION PAST SURGICAL HISTORY OF 1997 BILAT. SHOULDER SURGERY PAST SURGICAL HISTORY OF 1994 CERVICAL SPINE FUSION C4, C5 (had cervical fx x3 - even after repair) PAST SURGICAL HISTORY OF 1969 LEFT EAR CHOLESTEATOMA PAST SURGICAL HISTORY OF CLEFT LIP PAST SURGICAL HISTORY OF 02/2006 lasik PAST SURGICAL HISTORY OF 2004 bladder sling PAST SURGICAL HISTORY OF 08/09/2020 Upper endoscopy, percutaneous endoscopic gastrostomy (PEG) tube placed REMV CATARACT EXTRACAP,INSERT LENS Bilateral TRACHEOSTOMY EMERGENCY PROCEDURE TRANSTRACHEAL age 3 or 4 during surgery; lost airway Family History FAMILY HISTORY Problem Relation Age of Onset Stroke Mother Hypertension Mother Diabetes Father Cancer Father melanoma Kidney transplant Father Cancer Sister thyroid Breast Cancer Sister Breast Cancer Sister Cancer Brother 21 testicular Breast Cancer Maternal Aunt Cancer Other X-sgjrsp-Ictkryngdr Patient Allergies ALLERGIES Allergen Reactions Acetaminophen Other: See Comments pt told not to take due to liver damage Bupropion Hcl Unknown Codeine Rash, Itching Darvon [Propoxyphen* Itching Daypro [Oxaprozin] Rash Effexor [Venlafaxin* Intolerance decreased libido Flexeril [Cyclobenz* GI Upset, Vomiting Gabapentin Mental Status Change hangover Ibuprofen Other: See Comments pt was told not to take due to kindey damage Stebbins [Hydrocodone-* GI Upset, Itching nausea, itching Oxybutynin Other: See Comments Urinary retention Pentazocine Itching Iberia Trees [Trees] rash Tramadol Intolerance Current Medications Current Outpatient Medications on File Prior to Visit Medication Sig omega 7-zah-wxi-fish oil 1,000 mg (250 mg-750 mg)/5 mL liqd Take 1,000 mg by mouth once daily. lzvzhi-dkocvryr-yvsermm (CREON) 6,000-19,000 -30,000 unit delayed release capsule Take 2 capsules by mouth with meals and at bedtime. currently not taking. water for injection solp with amino acids 10% (FREAMINE)(Standard), dextrose, adult multiple vitamin (> 40 Kg) 10 mL, fat emulsion 30% emul Inject 1,900 mL intravenously once daily. (Patient not taking: Reported on 02/21/2022) folic acid 1 mg tablet Take 1 mg by mouth once daily. Take with breakfast metoclopramide HCl (REGLAN) 10 mg tablet Take 10 mg by mouth four times daily. cyanocobalamin (VITAMIN B-12) 1,000 mcg tab Take 1,000 mcg by mouth once daily. abatacept (ORENCIA) 125 mg/mL INJECT THE CONTENTS OF 1 SYRINGE (125 MG) UNDER THE SKIN ONCE EACH WEEK (NO ADDITIONAL REFILLS UNTIL OFFICE VISIT 10/11/2021) (Patient not taking: Reported on 02/21/2022) guaiFENesin-dextromethorphan (ROBITUSSIN DM) 100-10 mg/5 mL syrup Take 10 mL by mouth every 4 hoursas needed for cough. (Patient not taking: Reported on 02/21/2022) pantoprazole DR (PROTONIX) 40 mg tablet Take 1 tablet by mouth DAILY (6 AM). ergocalciferol 50,000 unit capsule (VITAMIN D2, DRISDOL) Take 1 capsule by mouth one time a week. losartan (COZAAR) 25 mg tablet Take 1 tablet by mouth once daily. (Patient not taking: No sig reported) calcium carbonate 600 mg-cholecalciferol 400 units (CALCIUM 600 + D) 600 mg-10 mcg (400 unit) tab Take 1 tablet by mouth once daily. eqzdep-vufkbume-bysudhj (CREON) 6,000-19,000 -30,000 unit delayed release capsule Take 2 capsules by mouth with meals and at bedtime. Food Supplement, Lactose-Free (ENSURE ORIGINAL) liqd Take 237 mL by mouth three times daily with meals. (Patient not taking: Reported on 02/21/2022) atorvastatin (LIPITOR) 40 mg tablet Take 0.5 tablets by mouth daily at bedtime. For cholesterol. (Patient not taking: No sig reported) Nebulizers 1 Each once daily. albuterol (PROVENTIL) 2.5 mg /3 mL (0.083 %) nebulizer solution Use 3 mL via nebulizer every 4 hours as needed for wheezing/shortness of breath. Use over 5- 15minutes. (Patient not taking: Reported on02/21/2022) Blood Pressure Monitor (BLOOD PRESSURE KIT) 1 Each once daily as needed. Dx: recurrent syncope R55 ALPRAZolam (XANAX) 1 mg tablet Take 1 mg by mouth twice daily. QUEtiapine (SEROQUEL) 100 mg tablet Take 2 tablets by mouth daily at bedtime. Current Facility-Administered Medications on File Prior to Visit Medication Adult Home Parenteral Nutrition 3:1 Social History Social History Tobacco Use Smoking status: Every Day Packs/day: 1.00 Years: 30.00 Pack years: 30.00 Types: Cigarettes Last attempt to quit: 06/02/2017 Years since quittin.7 Smokeless tobacco: Never Vaping Use Vaping Use: Never used Substance Use Topics Alcohol use: No Drug use: No Comment: IV DRUG USER Review of Symptoms REVIEW OF SYSTEMS GENERAL: See HPI RESPIRATORY: Negative for cough, hemoptysis, wheezing, COPD, dyspnea or shortness of breath CARDIOVASCULAR: Negative for chest pain, leg swelling, hypertension, CHF or palpitations GI: See HPI SKIN: Negative for lesions, rash, and itching EXAM: BP 128/72 Pulse 98 Temp 37.4 C (99.4 F) Resp 18 Wt 57.9 kg (127 lb 9.6 oz) SpO2 94% BMI21.90 kg/m General Appearance: Well appearing, alert, in no acute distress, well-hydrated, well nourished.. Skin: Skin color, texture, turgor normal, no suspicious rashes or lesions. Lungs: Lungs clear to auscultation. No wheezing, rhonchi, rales.. Heart: RRR without murmur, gallop, or rubs. No ectopy. Abdomen: Positive findings: tenderness moderate and involuntary guarding epigastric, hypoactive bowel sounds. ND, soft. Extremities: No deformities, edema, skin discoloration, clubbing or cyanosis. Good capillary refill. . Health Maintenance List COVID-19 VACCINE(1) Never done SPIROMETRY Never done SHINGRIX VACCINE(1 of 2) Never done ALPHA-1 ANTITRYPSIN DEFICIENCY SCREENING Never done PNEUMOCOCCAL(3 - PPSV23 if available, else PCV20) due on 11/16/2015 MAMMOGRAM due on 04/10/2019 LUNG CANCER SCREENING due on 12/27/2020 DEPRESSION ASSESSMENT Never done INFLUENZA(1) due on 12/14/2021 ANNUAL PCP TEAM CHRONIC DISEASE VISIT due on 10/26/2022 PAP TESTING due on 01/15/2023 HPV TESTING due on 01/15/2023 BP CONTROLLED (<130/80) due on 02/26/2023 DTAP,TDAP,TD(3 - Td or Tdap) due on 09/15/2023 DIABETES SCREEN due on 02/20/2025 LIPID SCREEN due on 12/15/2025 COLORECTAL CANCER SCREENING due on 09/30/2028 HEPATITIS C SCREENING Completed HIV SCREENING Completed Data reviewed Component Latest Ref Rng & Units 02/20/2022 Protein, Total 6.3 - 8.0 g/dL 6.5 Albumin 3.9 - 4.9 g/dL 3.9 Calcium 8.5 - 10.2 mg/dL 9.7 Bilirubin, Total 0.2 - 1.3 mg/dL 0.2 Alkaline Phosphatase 34 - 123 U/L 67 AST 13 - 35 U/L 57 (H) ALT 7 - 38 U/L 52 (H) Glucose 74 - 99 mg/dL 110 (H) BUN 7 - 21 mg/dL 16 Creatinine 0.58 - 0.96 mg/dL 0.61 Sodium 136 - 144 mmol/L 144 Potassium 3.7 - 5.1 mmol/L 3.9 Chloride 97 - 105 mmol/L 104 CO2 22 - 30 mmol/L 26 Anion Gap 9 - 18 mmol/L 14 eGFR >=60 mL/min/1.73m 100 WBC 3.70 - 11.00 k/uL 6.91 RBC 3.90 - 5.20 m/uL 3.74 (L) Hemoglobin 11.5 - 15.5 g/dL 11.5 Hematocrit 36.0 - 46.0 % 37.5 MCV 80.0 - 100.0 fL 100.3 (H) MCH 26.0 - 34.0 pg 30.7 MCHC 30.5 - 36.0 g/dL 30.7 RDW-CV 11.5 - 15.0 % 15.4 (H) Platelet Count 150 - 400 k/uL 243 MPV 9.0 - 12.7 fL 12.2 Absolute nRBC <0.01 k/uL <0.01 Triglyceride <150 mg/dL 132 Fasting Time hrs UNK Magnesium 1.7 - 2.3 mg/dL 2.0 Phosphorus 2.7 - 4.8 mg/dL 3.1 Prealbumin 17 - 36 mg/dL 21 ASSESSMENT/PLAN: 1. Duodenal perforation (HCC) - ICD9: 537.89, ICD10: K63.1 (primary diagnosis) Patient with recurrent epigastric pain and constipation after having PICC line removed and TPN discontinued. Patient is not tolerating PO diet due to discomfort after eating. Weight down 6 lbs. Will order repeat labs and STAT imaging and reach out to Dr. Esparza's office about repeat follow up. Discussed pushing PO fluid and bland diet. Red flags for re-assessment reviewed with patient in detail. - CT ABD/PEL W IVCON - IV CONTRAST (RADIOLOGY PROCEDURE) - ENTERIC CONTRAST (RADIOLOGY PROCEDURE) 2. Peritonitis (HCC) - ICD9: 567.9, ICD10: K65.9 See above. - CT ABD/PEL W IVCON 3. Severe protein-calorie malnutrition (HCC) - ICD9: 262, ICD10: E43 See above. - POLYETHYLENE GLYCOL 3350 17 GRAM/DOSE ORAL POWDER 4. S/P percutaneous endoscopic gastrostomy (PEG) tube placement (HCC) - ICD9: V44.1, ICD10: Z93.1 Removed. See above. 5. On total parenteral nutrition (TPN) - ICD9: V49.89, ICD10: Z78.9 Off TPN. See above. 6. Alcohol-induced chronic pancreatitis (HCC) - ICD9: 577.1, ICD10: K86.0 See above. - COMP METABOLIC PANEL - LIPASE BLD - PHOSPHORUS INORGANIC - MAGNESIUM BLD - CBC + DIFF - CT ABD/PEL W IVCON - IV CONTRAST (RADIOLOGY PROCEDURE) - ENTERIC CONTRAST (RADIOLOGY PROCEDURE) 7. Stricture of pancreatic duct - ICD9: 577.8, ICD10: K86.89 See above. 8. Tobacco use - ICD9: 305.1, ICD10: Z72.0 - Cessation encouraged. - Physiologic and physical aspects of tobacco addiction as well as strategies for quitting were discussed. - Counseling was given focusing on the harmful effects of this addiction especially given the patient's medical condition(s) which will be worsened because of the chemicals in tobacco. - Prescription for nicotrol given - NICOTROL 10 MG INHALATION CARTRIDGE 9. Acute constipation - ICD9: 564.00, ICD10: K59.00 Start miralax BID PRN. Push PO fluids, bland/soft diet. Will f/u results from labs and imaging. If she has evidence of obstruction, repeat abscess, new perforation would recommend ER. - CT ABD/PEL W IVCON - IV CONTRAST (RADIOLOGY PROCEDURE) - ENTERIC CONTRAST (RADIOLOGY PROCEDURE) 10. Epigastric pain - ICD9: 789.06, ICD10: R10.13 See above. - CT ABD/PEL W IVCON - IV CONTRAST (RADIOLOGY PROCEDURE) - ENTERIC CONTRAST (RADIOLOGY PROCEDURE) 11. Weight loss - ICD9: 783.21, ICD10: R63.4 See above. - CT ABD/PEL W IVCON - IV CONTRAST (RADIOLOGY PROCEDURE) - ENTERIC CONTRAST (RADIOLOGY PROCEDURE) I spent a total of 60 minutes on the date of the service which included preparing to see the patient, phtk-nq-dkpl patient care, completing clinical documentation, obtaining and/or reviewing separately obtained history, performing a medically appropriate examination, counseling and educating the pat ient/family/caregiver, and ordering medications, tests, or procedures. Lizbeth Pool MD documented in this encounterSelect [facility]11-15-2022 Miscellaneous Notes* CARE COORDINATION - LUZMA Wild - 02/27/2022 10:45 AM EST 02/27/22 10:51 AM - 10:53 AM ARMED GUARD called Filiberto Bingo Clerk with [employer] regarding the pt. was discharged from [facility] yesterday 02/26/22. Filiberto stated she has been talking with the pt. and was aware that she no longer has TPN. Filiberto stated she will keep in contact with the pt. and follow-up with her. documented in this encounterSelect Medical [facility] [place]11-14-2022 Miscellaneous Notes* SN Agency DC - Darcy De Leon RN - 02/26/2022 12:58 PM EST SITUATION: Assisted agency discharge visit completed today. only patient present during today's visit. patient reports the following: Allergies--reviewed Medications--reviewed current medications Falls--None BACKGROUND: Reason for Home Care: pt previously had been on TPN due to failure to thrive ASSESSMENT: SN greeted at door by patient utilizing cane and demonstrates stable gait. Patient appears in no acute distress. Patient/CG concerns verbalized today: no concerns Vitals (see flow sheet for details): stable SN findings today: Pt is ambulating in the home without a device. She reports that she had had someintermittent abdominal pain but it has not been severe and she reports that she has not needed to take any of the creon. She reports that her appetite has been pretty good and she has been eating regular meals. SN suggested that she keepa supplement on hand to use if some days she does not feel that she eats enough. She states that she has used [employer] in the past and will get some. Pt reports that she has been constipated, see GI notes. Bowel sounds are active. no bloating or abdominal distension is noted. See intervention summary for education details and any skills performed. Specific SN discharge instructions: follow up with Dr Pool as recommended. Call Dr Esparza's office if you are not tolerating your diet and having problems with abdominal pain, nausea and vomting. Patient encouraged to take all medication as ordered, eat a well-balanced diet and follow up with all physician appointments. NOMNC: Not required per insurance Discharged due to no further SN skilled need. Patient discharged from Home Care to: self-care RECOMMENDATION: Additional follow ups recommended: None Patient to follow up with Dr. Pool for additional medical questions/concerns. documented in this encounterSelect Medical [facility] [place]11-10-2022 Miscellaneous Notes* Telephone Encounter - Julia Arredondo LPN - 02/22/2022 1:47 PM EST Patient scheduled for Hospital follow up on 03/05/22 for 40 min d/t multiple issues and difficult for patient to make it into appts because of transportation issues. Patient voicing interest in diclofenac VS narcotics and would like to address at visit. * Telephone Encounter - Lizbeth Pool MD - 02/22/2022 1:25 PM EST Thank you. Patient still has not had f/u since discharge. Recommend OV in 1-2 weeks for follow up. * Telephone Encounter - LUZMA Wild - 02/22/2022 12:21 PM EST 02/22/22 ARMED GUARD spoke to the patient regarding PASSPORT/Waiver. The pt. stated she was on it before but they kicked me off of [facility]. The pt. stated she needs [employer]. ARMED GUARD discussed hiring assist and the pt. stated she could not afford that. ARMED GUARD asked the pt. if she had a Competitive Shopper with [employer] and she stated that she did Ayaka. ARMED GUARD contacted Ayaka and left a message but received a phone call from Filiberto Waters Bingo Clerk # [phone]. ARMED GUARD spoke to Filiberto and she was going to call the patient regarding services and how she was managing. ARMED GUARD spoke to the patient today and she feels she is doing good with her Picc line out and she felt no needs for ARMED GUARD at this time. ARMED GUARD asked the patient if she spoke to Filiberto her [facility] Bingo Clerk and she stated she had left messages and she was going to call her back. The patient denied any transportation needs to medical appointments and stated her sister takes her. ARMED GUARD informed the patient to call ARMED GUARD with any needs. Thank You, documented in this encounterSelect [facility] [place]11-10-2022 Miscellaneous Notes* Telephone Encounter - Deloris Juarez APRN.EDMUND - 02/22/2022 12:58 PM EST needs to file appeal, she has been on fosamax x 7 years cannot take oral therapy due to GERD Ongoing bisphosphanate therapy contraindicated after 3-5 years due to risk of atypical bone fractures. Deloris Juarez APRN.ALMOND ROASTER * Telephone Encounter - Kami Ellis - 02/21/2022 2:24 PM EST Called pt to relay below and cancel visit. Left message. Deloris, what will be new treatment plan? Kami Ellis RN * Telephone Encounter - Isabel Porter - 02/21/2022 2:21 PM EST See message below from Morgan referral: === PHARMACY TEAM ==== PEER TO PEER/APPEAL REQUESTED PROVIDER TO COMPLETE P2P or Appeal: Appeal Payer: [employer] DOS: 02/23/2022 Drug Name(s) & HCPCS/CPTCode(s): Morgan [id number] Dx code(s) submitted: M81.0 (ICD-10-CM) - Age-related osteoporosis without current pathological fracture Provider: DELORIS JUAREZ Peer to Peer/Appeal reason: Coverage is provided when the member has had a 12 month trial of a bisphosphonate taken by mouth, such as aledronate or risendronate or a bisphophonate given by injection such as zolendronic acid (reclast) or ibrandronate. Timeframe to complete: 60 days Date sent to provider: 02/15/2022 02/21/2022 Courtesy page sent (PRN): No Called evelin @[phone] spoke with Leslie no appeal found as of today call ref #[id number] * Telephone Encounter - Isabel Porter - 02/21/2022 2:21 PM EST ----- Message from Kami Ellis sent at 02/19/2022 4:23 PM EST ----- Prolia not authorized, shall we reschedule visit? -Kami documented in this encounterSelect Medical [facility]ty [facility] [place]11-10-2022 Miscellaneous Notes* HH CARE COORDINATION - LUZMA Wild - 02/22/2022 12:15 PM EST 02/22/22 12:06 PM - 12:10 PM ARMED GUARD called the pt. regarding how she was managing and if she spoke to Filiberto [employer] Bingo Clerk. The pt. stated that Filiberto has called her and left messages. She stated she was in Dr. appointments. The pt. stated she got her PICC line out and she is doing good. ARMED GUARD again discussed Waiver with the pt. and more help in the home. The pt. feels she is managing but plans to call Filiberto back her [facility] Case Maager and talk with her. ARMED GUARD asked the pt. if she had Filiberto's phone number. She stated she had it wrote down in her bedroom. ARMED GUARD provided the pt with Filiberto's phone number [phone]. The pt. fels not needs for ARMED GUARD at this time. ARMED GUARD informed the pt. tp call ARMED GUARD with any needs. 02/22/[address] Lizbeth Pool - ARMED GUARD spoke to the patient regarding PASSPORT/Waiver. The pt. stated she was on it before but they kicked me off of [facility]. The pt. stated she needs [employer]. ARMED GUARD discussed hiring assist and the pt. stated she could not afford that. LSWasked the pt. if she had a Competitive Shopper with [employer] and she stated that she did Ayaka. ARMED GUARD contacted Ayaka and left a message but received a phone call from [facility] Bingo Clerk ph# [phone]. ARMED GUARD spoke to Filiberto and she was going to call the patient regarding services and how shewas managing. ARMED GUARD spoke to the patient today and she feels she is doing good with her Picc line outand she felt no needs for ARMED GUARD at this time. ARMED GUARD asked the patient if she spoke to Filiberto her [facility] Bingo Clerk and she stated she had left messages and she was going to call her back. The patientdenied any transportation needs to medical appointments and stated her sister takes her. ARMED GUARD informed the patient to call ARMED GUARD with any needs. Thank You, 02/22/22 ARMED GUARD called Filiberto SEGAL Bingo Clerk with [employer] and left her a message that ARMED GUARD spoke to the pt. today and she has received her messages but the pt. stated she was in Dr. appointments. The pt. was happy to tell ARMED GUARD that she got her PICC line out and was doing good. The pt. feltshe was managing. She stated that her sister takes her to her medical appointments. The pt. stated she was planning to call you back. ARMED GUARD left her name and phone number for Filiberto to call ARMED GUARD back withany questions. documented in this encounterSelect [facility] [place]-10-2022 Miscellaneous Notes* Telephone Encounter - Sen Brown RN - 02/22/2022 11:[address] Oro; This message is to alert you that your patient has verbalized to her primary visit nurse-Darcy through [facility] that she is refusing any further TPN infusions. In fact, [facility] delivery was attempting to deliver the next refill order of TPN and patient did not answer the door and did not accept the delivery of weekly supplies this week. She is reporting that her appetite is increased and has had an 8 lb weight gain since home from the hospital. She is tolerating solid food sources. I thank you in advance for your review of this information. Sen Brown RN documented in this encounterSelect Medical Specialty [facility] [place]11-09-2022 Instructions* Patient Instructions* Vonnie Esparza MD - 02/21/2022 3:12 PM EST Please do not hesitate to call my office for any questions or concerns. documented in this encounterSelect Medical [facility] [place]11-08-2022 Miscellaneous Notes* SN Routine IV care and labs - Darcy De Leon RN - 02/20/2022 2:55 PM EST SITUATION: Assisted routine IV for IV care and labs visit completed today. only patient present during today's visit. patient reports the following: Allergies--reviewed Medications--reviewed current medications Falls--None BACKGROUND: Reason for Home Care: PICC and labs, pt on home TPN ASSESSMENT: SN greeted at door by patient no DME and demonstrates stable gait. Patient appears in no acute distress. Patient/CG concerns verbalized today: pt verbalizes that she is eating well and is seeing Dr Esparza tomorrow and wants him to discontinue the TPN and the PICC line. Vitals (see flow sheet for details): stable SN findings today: Pt is ambulating in the home. See above pt report. Pt reports that her PICC linehas been painful when she moves her arm. When PICC care was completed, SN noted a scab at insertionsite. This was removed with cleansing and after PICC care was completed, pt reports that the pain resolved. Pt reports that she has been doing the TPN every night, she has one bag left for tonight. Delivery for TPN was attempted by [facility] during this vs and pt declined it. Pt reports that her daily urine test has been negative. IV care completed with no issues or concerns noted or reported. See intervention summary for education details and skills performed. Plan of care, progress towards goals, and visit frequency reviewed with patient. Patient demonstrated a need for further skilled SN services for medication education, infusion care, labs and safety. Current Discharge plan: self-care RECOMMENDATION: Next visit to focus on (be specific): probable agency dc documented in this encounterSelect Medical [facility]ty [facility] [place]11-07-2022 Miscellaneous Notes* CARE COORDINATION - Alba Kim RN - 02/19/2022 12:41 PM EST per orders of Dr. PERRY Oro: TPN changes to start on 02/21/22 as follows: Decrease sodium chloride from 150 mEq to 100 mEq per TPN bag Increase sodium acetate from 0 to 50 mEq per TPN bag. 3:1 stable, calcium+magnesium <20, calcium x phosphorus product <200. TPN LABS: 02/20/22 (Labs include CBC, CMP, magnesium, phosphorus, pre-albumin, triglycerides) documented in this encounterSelect Medical Specialty [facility] [place]11-05-2022 Miscellaneous Notes* CARE COORDINATION - Misty Parra RN - 02/17/2022 10:00 PM EDT see case comm documented in this encounterSelect Medical Specialty [facility] [place]11-04-2022 Miscellaneous Notes* [facility] Routine IV - Coty Navarrete RN - 02/16/2022 5:08 PM EDT SITUATION: Assisted routine IV visit completed today. only patient also present during today's visit. patient reports the following: Allergies--reviewed Medications--reviewed current medications Falls--None BACKGROUND: Reason for Home Care: PICC care, labs, TPN education/monitoring ASSESSMENT: SN greeted at door by patient no DME and demonstrates stable gait. Patient appears in no acute distress. During visit, patient demonstrated independence with IV TPN infusion Patient/CG concerns verbalized today: none Vitals (see flow sheet for details): stable SN findings today: Patient pleasant and cooperative with SN assessment. Patient hands on with IV lump room supervisor and successfully completed TPN lump room supervisor with minimal SN cues. Patient denies any medication changes. She reports and fair appetite and adequate hydration. Patient urine negative for glucose. Patient denies any urinary or bowel issues. No other questions or concerns at this time. See intervention summary for education details and skills performed. Plan of care, progress towards goals, and visit frequency reviewed with patient. Patient demonstrated a need for further skilled SN services for chronic disease management & education, medication education, infusion care, labs and safety Current Discharge plan: self-care and family support RECOMMENDATION: Next visit to focus on (be specific): PICC care and labs documented in this encounterSelect Medical [facility]ty [facility] [place]11-04-2022 Miscellaneous Notes* CARE COORDINATION - LUZMA Wild - 02/16/2022 3:15 PM EDT 02/16/22 3:43 PM - 3:45 PM LUZMA called Pam [employer] Competitive [employer] and left her a message that ARMED GUARD was calling regarding the pt. and coordinating her care. ARMED GUARD left her name and phone number and asked Ayaka to call ARMED GUARD back. documented in this encounterSelect Medical [facility]ty [facility] [place]11-03-2022 Miscellaneous Notes* SN ROUTINE IV EDUCATION - Karine Dickerson RN - 02/15/2022 6:42 PM EDT SITUATION: Assisted routine IV visit focused on IV infusion education completed today. only patient also present during today's visit. patient reports the following: reports the following changes since the last homecare visit: Allergies--reviewed Medications--reviewed current medications Falls--None BACKGROUND: Reason for Home Care: PICC care, labs, TPN education/monitoring ASSESSMENT: SN greeted at door by patient no DME and demonstrates stable gait. Patient appears in no acute distress. During visit, patient demonstrated need for continued IV infusion education and needs further instructions focused on let pt do all hands on without SN prompting, pt needs to work through process using her notes/written instructions. Patient/CG concerns verbalized today: none noted Vitals (see flow sheet for details): stable SN findings today: pt pleasant. pt states, the last nurse didn't seem to know what she was doing, I got so flustered and cried. I am happy to see you. I am so sick of this already, as soon as I go to my dr next week, I am telling his to take this IV out! My daughter is coming this weekend, and I don't know if I will be able to do the infusion. pt checked her urine this am for glucose, none noted per pt. pt forgot to weigh herself. pt is trying to eat softer, more bland foods like SN recommended. pt wanted to video SN performing steps to TPN hook- up tonight, SN recommended that pt perform all steps hands on and SN would video, so that pt gets more practice. pt reports short term memory issues, but is able to recall soto points from last SN hook-up with this nurse and pt did better with dexterity of connections tonight. SN suggested pt infusion TPN during the daytime, so that maybe family could learn with pt, pt states, no I have too much to do with the dogs during the day. pt does not want TPN to run until 11pm tonight, SN had pt do hands on with all steps, and have pump set up for infusion later (including priming). pt verbalized steps to complete hook-up tonight and how to disconnect and flush in AM. pt states she is not comfortable with doing whole TPN hook-up process independently yet and would like another visit Saturday night. Prior to visit, SN received phone call from [place] biology research assistant, that Dr. Oro's office needs labs done that were ordered on 02/12. SN naomie labsthis visit. See intervention summary for education details and skills performed. Plan of care, progress towards goals, and visit frequency reviewed with patient. Patient demonstrated a need for further skilled SN services for infusion care and labs Current Discharge plan: self-care RECOMMENDATION: Next visit to focus on (be specific): let pt do all hands on without SN prompting, let pt work through the process using her notes and videos. documented in this encounterSelect Medical [facility]ty [facility] [place]11-03-2022 Miscellaneous Notes* CARE COORDINATION - Taisha Li RN - 02/15/2022 8:26 AM EDT Patient called in, having trouble shutting off TPN pump, she states infusion complete, she disconnected her self and flushed, clamped line, now cant get pump off, keeps beeping, talked her through shutting down pump, she was able to get it turned off. ENcouraged pt. to look through IV pump book to see how to follow the on screen pumps, she gets confused and presses the wrong buttons. She voiced understanding. documented in this encounterSelect Medical Specialty [facility] [place]11-02-2022 Miscellaneous Notes* CARE COORDINATION - LUZMA Wild - 02/14/2022 3:15 PM EDT 02/14/22 3:15 PM Voicemail message from the pt. asking ARMED GUARD to call her back. 02/14/22 3:29 PM - 3:34 PM ARMED GUARD called the pt. regarding how she was managing and regarding communityresources. The pt. stated she needs assist with her IV and she stated she would like to video how to do it. ARMED GUARD discussed with the pt. going into a snf while she has her IV. The pt. stated she has two dogs and she is not doing that. ARMED GUARD asked the pt. if she was on PASSPORT/Waiver. The pt. stated she was on it before but they kicked me off of [facility]. The pt. stated she [facility]. ARMED GUARD discussed hiring assist and the pt. stated she could not afford that. The pt. statedmargarette was in town now at her mother's. She stated she had to go to [employer] to get financial assist with her electric bill. The pt. stated she thought the Nurse was coming today. LSWasked the pt. if she had a Competitive Shopper with [employer] and she stated that she did Ayaka. She stated she has called Ayaka and left her messages and she does not call her back. ARMED GUARD asked the pt.if she had Ayaka's phone number so ARMED GUARD could coordinate with her. She stated she had two phone numbers for Ayaka [phone] and [phone]. ARMED GUARD will contact Ayaka and call her back. ARMED GUARD asked the pt. abut the Living Will and Medical POA. The pt. stated she only wants the Medical POA and asked ARMED GUARD to mail the form to her. ARMED GUARD provided the pt. with her name and phone number. 02/14/22 ARMED GUARD mailed the pt. the Medical POA form and About Advanced Directives pamphlet. 02/14/22 3:48 PM - 3:50 PM ARMED GUARD called Ayaka Competitive Shopper with [employer] and left her a message regarding the pt. was active with [facility] and ARMED GUARD spoke to the pt. today ARMED GUARD calling to coordinate with her and regarding services for the pt. ARMED GUARD left her name and phone number. documented in this encounterSelect Medical Specialty [facility] [place]11-01-2022 Miscellaneous Notes* SN ROUTINE IV EDUCATION - Karine Dickerson RN - 02/13/2022 5:36 PM EDT SITUATION: Assisted routine IV visit focused on IV infusion education completed today. only patient also present during today's visit. patient reports the following: reports the following changes since the last homecare visit: Allergies--reviewed Medications--reviewed current medications Falls--None BACKGROUND: Reason for Home Care: PICC care, labs, TPN education ASSESSMENT: SN greeted at door by patient no DME and demonstrates stable gait. Patient appears in no acute distress. During visit, patient demonstrated need for continued IV infusion education and needs further instructions focused on hands on without SN prompting for TPN infusion. Patient/CG concerns verbalized today: none noted Vitals (see flow sheet for details): stable SN findings today: pt pleasant. pt c/o abd pain after eating 3 slices of meat lovers pizza and raisin bran. SN taught pt that use of TPN is to allow gut rest with soft, bland diet, pt should avoid spicy, fatty, hard to digest food at this time. pt states, I know, but I was hungry. pt states, I have a dr appt on 02/21, I want to be done with TPN by then. SN taught pt to weigh herself daily. SN taught pt to check AM urine for glucose. SN changed PICC line dressing today, SN did not draw lab work ordered from 02/12, pt has not received TPN yet, another nurse is clarifying order. SN applied extension tubing to both ports and taught pt to flush unused port daily. SN taught pt PICC line safety. pt states, I have some short term memory problems, I hope I can remeber all of this. SN taught pt hand hygeine, setting up a clean work area. SN taught pt all aspects of IV TPN infusion. SN taughtpt troubleshooting IV alarms. pt states, I am legally deaf, when I take my hearing aides out, I won't be able to hear the IV pump alarming. SN suggested pt use her vibration bed alarm, set to go off every hour or so, to check on IV pump until she is comfortable that it is infusing without issues.TPN is to now run over 8hrs, pt states, the called me on the phone and had me reset the IV pump. SN verified IV pump settings. pt does not want TPN to run until 11pm, SN offered to set delay so that pt won't have to worry about reconnecting IV and running infusion later. pt declined, states, I can't have that thing attached to me, the dogs will get tangled up in it. TPN is already primed and hung for tonight's infusion, SN made sure pt had hands on and teachback with connecting IV tubing toIV line and running IV pump. pt states she is comfortable to connect at 11pm. pt states she is comfortable to disconnect in AM, but would like another visit Saturday evening for TPN hook- up, pt struggled with dexterity of skills. pt took notes of steps, and SN showed pt handout with pictures of steps as well. SN taught pt to contact home care for any issues. SN sent email to scheduling to have avisit added for 02/14. pt has old drain site to RLQ, SN taught pt to wash site with clean wash cloth, mild soap and water, pat dry, do not soak in tub, ok to shower. SN taught pt s/sx of infection to monitor for. See intervention summary for education details and skills performed. Plan of care, progress towards goals, and visit frequency reviewed with patient. Patient demonstrated a need for further skilled SN services for infusion care, labs and safety Current Discharge plan: self-care RECOMMENDATION: Next visit to focus on (be specific): see if pt had any issues overnight, have pt do hands on with all steps to TPN hook-up. documented in this encounterSelect Medical [facility]ty [facility] [place]10-31-2022 Miscellaneous Notes* Telephone Encounter - Francis Ortez RN - 02/12/2022 8:[address] Esparza and Dr. Oro, SN visit this evening for TPN lump room supervisor. Upon arrival, pt reported that she had contacted MD office to request TPN timeframe be decreased from 12hrs to 8hrs. She states that she is unable to care for her pets and they have been tearing up my house. She declined SN to lump room supervisor TPN tonight d/t no change in orders for TPN infusion time. She denies nausea/vomiting today. She has eaten pizza, cookies, cereal and drank juice. SN educated regarding healthy diet as well as hypoglycemia and electrolyte imbalance. Please contact [facility] at [phone] regarding this if any changes are to be made. If not, please contact patient directly to discuss. Thanks so much, Francis DHILLON, RN documented in this encounterSelect Medical Specialty [facility] [place]10-31-2022 Miscellaneous Notes* SN ROUTINE IV EDUCATION - Francis Ortez RN - 02/12/2022 8:06 PM EDT SITUATION: Assisted routine IV visit focused on IV infusion education completed today. only patient also present during today's visit. patient reports the following: reports the following changes since the last homecare visit: Allergies--reviewed Medications--reviewed current medications Falls--None BACKGROUND: Reason for Home Care: TPN - education, PICC care, labs ASSESSMENT: SN greeted at door by patient no DME and demonstrates stable gait. Patient appears in no acute distress. During visit, patient demonstrated further need for education for TPN lump room supervisor and take down. Patient/CG concerns verbalized today: Pt states she called Dr. Esparza's office to decrease time interval for TPN from 12 hours to 8 hours. She states she does not want to try the book bag this evening for lump room supervisor. She states that Dr. Esparza was to [facility] with orders to change interval and pt provided Dr. Esparza with phone number. SN checked all charting in chart to see any communicationregarding changes in TPN orders and unable to find. SN contacted overnight analytics senior manager to discuss and she advised SN to contact [facility] pharmacy. Pharmacist looked pt up in epic to see if any new orders were placed and there were no changes made to TPN at this time. Pt does not want to lump room supervisor to TPN at this time. SN educated pt on s/s hypoglycemia. Pt denies n/v today and reports she was able to eat 2 pieces of pizza, cereal, cookies and juice today. She does report abdominal pain d/t what she ate today. SN educated pt regarding healthy nutrition. Vitals (see flow sheet for details): stable SN findings today: see above See intervention summary for education details and skills performed. Plan of care, progress towards goals, and visit frequency reviewed with patient. Patient demonstrated a need for further skilled SN services for chronic disease management & education, medication education, infusion care, labs and safety Current Discharge plan: self-care RECOMMENDATION: Next visit to focus on (be specific): TPN - follow up with new orders for decreased interval for TPN, educate regarding TPN lump room supervisor, draw labs, change dressing. TC sent directly to Dr. Esparza & Dr. Oro to update that pt refused TPN lump room supervisor tonight andrequesting TPN interval to be decreased to 8hours. documented in this encounterSelect Medical Specialty [facility] [place]10-31-2022 History of Present illness Narrative* Sarah Gamez, [facility] - 02/12/2022 12:09 PM EDT TRANSITION CARE MANAGEMENT (TCM) PHARMACY CONTACT Provider Action/FYI: TCM Medication Reconciliation partially completed for patient. See medication list table below for details. Medications discussed per patient preference outlined in table below. Initial contact with patient post discharge, spoke to patient. Patient identified by name and . Summary: -Pt discharged from [place] on 02/09/22. -Follow up appointment on to be scheduled. -Medication review done: Partial medication review completed - per patient preference -Admitted for N/v Patient was contacted by telephone, identified for pharmacist care from discharge call list, and gave consent to manage medications related to transitional care management pursuant to the consult agreement with the [facility]. Patient Concerns: Partial medication reconciliation completed (medication adjustments only per patient preference) - no medication questions or concerns identified at this time. History of Present Illness: The following content has been copied and pasted from patient's discharge summary. If discharge summary unavailable, After Visit Summary or last pertinent inpatient notes are copied and pasted. REASON I WAS IN THE HOSPITAL: Nausea and vomiting SUMMARY OF WHAT HAPPENED WHILE I WAS IN THE HOSPITAL: You were direct admitted to the hospital after seeing Dr. Esparza in the office and having nausea and vomiting. Nutrition was consulted and you were started on TPN. Since hospitalization, your nausea has been controlled. You had an updated CT scan which demonstrated resolution of your abscess in the RUQ and IR removed your drains. You are eating and are stable and ready for discharge. Medication Reconciliation: Legend: Stopped, New, Changed, Added to list Medication List Medication Directions Comments Action/Plan abatacept (ORENCIA) 125 mg/mL INJECT THE CONTENTS OF 1 SYRINGE (125 MG) UNDER THE SKIN ONCE EACH WEEK (NO ADDITIONAL REFILLS UNTIL OFFICE VISIT 10/11/2021) albuterol (PROVENTIL) 2.5 mg /3 mL (0.083 %) nebulizer solution Use 3 mL via nebulizer every 4 hours as needed for wheezing/shortness of breath. Use over 5-15minutes. ALPRAZolam (XANAX) 1 mg tablet Take 1 mg by mouth twice daily. Discontinued: 02/09/2022 3:26 PM Pt aware atorvastatin (LIPITOR) 40 mg tablet Take 0.5 tablets by mouth daily at bedtime. For cholesterol. benzonatate (TESSALON PERLE) 100 mg capsule Take 1-2 capsules tid prn, no more than 6 in 24 hours. Patient not taking: Reported on 02/07/2022 Discontinued by patient Removed from med list Blood Pressure Monitor (BLOOD PRESSURE KIT) 1 Each once daily as needed. Dx: recurrent syncope R55 calcium carbonate 600 mg-cholecalciferol 400 units (CALCIUM 600 + D) 600 mg-10 mcg (400 unit) tab Take 1 tablet by mouth once daily. cyanocobalamin (VITAMIN B-12) 1,000 mcg tab Take 1,000 mcg by mouth once daily. ergocalciferol 50,000 unit capsule (VITAMIN D2, DRISDOL) Take 1 capsule by mouth one time a week. Discontinued: 02/09/2022 3:26 PM Pt aware folic acid 1 mg tablet Take 1 mg by mouth once daily. Take with breakfast Food Supplement, Lactose-Free (ENSURE ORIGINAL) liqd Take 237 mL by mouth three times daily with meals. guaiFENesin-dextromethorphan (ROBITUSSIN DM) 100-10 mg/5 mL syrup Take 10 mL by mouth every 4 hoursas needed for cough. vrznco-vipkjigd-bqbozva (CREON) 6,000-19,000 -30,000 unit delayed release capsule Take 2 capsules by mouth with meals and at bedtime. losartan (COZAAR) 25 mg tablet Take 1 tablet by mouth once daily. metoclopramide HCl (REGLAN) 10 mg tablet Take 10 mg by mouth four times daily. oxyCODONE IR (ROXICODONE) 5 mg immediate release tablet Take 1 tablet by mouth every 6 hours as needed. Taking as prescribed without any issues New medication counseling provided pantoprazole DR (PROTONIX) 40 mg tablet Take 1 tablet by mouth DAILY (6 AM). polyethylene glycol 3350 (MIRALAX, GLYCOLAX) 17 gram packet Take 1 Packet by mouth once daily. Dissolve dose in 4 - 8 ounces of liquid and take as directed. QUEtiapine (SEROQUEL) 100 mg tablet Take 2 tablets by mouth daily at bedtime. senna-docusate (SENNA-S) 8.6-50 mg per tablet Take 1 tablet by mouth twice daily. Discontinued: 02/09/2022 3:26 PM Pt aware Preferred pharmacy: [id number] [place] [address] - [id number] [facility] [phone] [id number] [facility] [place] [id number] Estimated Creatinine Clearance: 59.9 mL/min (based on SCr of 0.82 mg/dL). Estimated Glomerular Filtration Rate (mL/min/1.73m ) Date Value 02/09/2022 80 eGFR- (no units) Date Value 02/10/2021 >60 ALLERGIES Allergen Reactions Acetaminophen Hives Bupropion Hcl Unknown Codeine Rash, Itching Darvon [Propoxyphen* Itching Daypro [Oxaprozin] Rash Effexor [Venlafaxin* Intolerance decreased libido Flexeril [Cyclobenz* GI Upset, Vomiting Gabapentin Mental Status Change hangover Stebbins [Hydrocodone-* GI Upset, Itching nausea, itching Oxybutynin Other: See Comments Urinary retention Pentazocine Itching Iberia Trees [Trees] rash Tramadol Intolerance PAST MEDICAL HISTORY Diagnosis Date Acute hepatitis C without mention of hepatic coma(070.51) negative RNA in 2016 Anxiety state 05/29/2005 Dr. Ryan Arthritis Bulimia 02/16/2013 Cervical vertebral fracture (HCC) 05/07/2011 Chronic obstructive pulmonary disease (COPD) (HCC) does not use inhalers. 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 Not on medications, not seeing neurology. 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 Choi-ID Prediabetes Psoriasis Rheumatoid arthritis involving multiple sites with positive rheumatoid factor (HCC) 12/13/[address] Kal MANCINI (restless legs syndrome) 08/29/2011 Vasovagal syncope Vitamin D deficiency Social History Tobacco Use Smoking status: Every Day Packs/day: 1.00 Years: 30.00 Pack years: 30.00 Types: Cigarettes, Pipe Last attempt to quit: 06/02/2017 Years since quittin.7 Smokeless tobacco: Never Vaping Use Vaping Use: Never used Substance Use Topics Alcohol use: No Drug use: No Comment: IV DRUG USER Immunization History Administered Date(s) Administered Influenza 02/15/2015 Influenza ID Quadrivalent Pres Free 02/21/2017 Influenza Nasal, unspecified formulation 02/07/2016 Influenza Seasonal Inj Age 3+ 02/16/2014 Influenza Seasonal Inj Quad Age 6 Mo - 64 Yrs 02/15/2015 02/07/2016 01/08/2018 05/12/2019 01/22/2020 04/11/2021 Influenza Seasonal Trivalent Inj Pres Free 01/13/2017 Influenza Vaccine, Split-Non Spec 02/15/2012 01/24/2013 02/16/2014 Pneumococcal-13 Vac Conjugate 11/15/2014 Pneumovax 02/03/2003 11/15/2014 Tdap (Age 7+) 12/30/2009 09/14/2013 Additional follow up: Appointments for Next 60 Days Date Time Provider Location Dept Phone 02/12/2022 10:15 AM [facility] [phone] 02/12/2022 8:00 PM [facility] [phone] 02/20/2022 2:20 PM LIZBETH POOL [facility] [phone] 02/21/2022 2:30 PM VONNIE ESPARZA [phone] 02/23/2022 1:15 PM NURSE PARRISH [facility] [phone] 03/19/2022 11:20 AM NATASHA RAY [facility] [phone] Interventions Made: Patient education/Medication counseling Pharmacist Recommendations Made None Care Coordination: None at this time Time spent on patient: 15-30 minutes Sarah Gamez [facility] February 12, 2022 12:10 PM documented in this [facility] [place] Miscellaneous Notes* HH SN Abbrev SOC IV 2nd Visit - Anastacio Ibarra RN - 02/12/2022 10:48 AM EDT SITUATION: Assisted Abbreviated SOC IV 2nd visit completed today. only patient also present during today's visit. patient reports the following: Allergies--updated Medications--full medication reconciliation completed Falls--None DME-Reviewed and added to chart BACKGROUND: Discharged/Referral from [facility] on 02/09/22 following treatment for malnutrition. Pertinent referral information: TPN, malnutrition ASSESSMENT: SN greeted at door by patient no DME and demonstrates stable gait. Patient appears in no acute distress. Patient lives at home alone. Home environment: uncluttered, has pets: 2 large breed dogs and safety concerns: ramp into home slippery when wet, bulky rugs present up rest of walkway into home, unveven surfaces through door thresholds.. Patient/CG concerns verbalized today: Pt frustrated with have TPN running for 12 hours. Pt on phonewith MD office when SN arrived and telling them that she is ging to refuse TPN unless it can run for only 8 hours and not 12. She has 2 dogs that she had to lock out of her room for the 12 hours she was running TPN and the dogs were crying outside of door all night to use the bathroom. Pt states dogs tore apart her new couch and had accidents in the home beucase she was unable to let them outsidefor 12 hours. Vitals (see flow sheet for details): stable SN findings today: Pt upset today regarding keeping dogs locked up for her 12 hour TPN infusion which led them to tear up her couch and have accidents inside the house becuase they needed to go outside. Pt on phone with MD office upon SN arrival telling them that her vet said that it will harm the dogs kidneys if they are left without a bathroom break for 12 hours, pt requesting the infusion be only 8 hours or pt is refusing the tx. SN educated pt on use of the bookbag for her pump and TPN bag.Pt excited about this possibility and now willing to comply with 12-hour infusions. Updated PM SN on educating pt on how to manage bookbag for use tonight. Med req completed, some meds pt not taking due to not feeling like she needs them- noted on med req. Pt has bedside commode in bedroom where Snplaced the urine hat for pt to use testing strip on first urine of the day, pt verbilizes understanding of this instruction. Pt educated with teachback on turning off pump. Pt able to unhook self from TPN and flush but will need more education on set up and pump controls. Pt verbilized concern for TPN making her gain weight and not being able to fit into her existing clothes. Pt states, Once I gain 5 pounds from this I am done, I dont want to be getting fat. Pt has two large breed dogs in [facility] and lives alone but her brother is next door neighbor and able to help her if needed for non-medical needs. Daughter is coming in from out of town next weekend to help her organize home and create more space for her now that she is requiring more medical supplies. Opportunity given to pt for questions and concerns. See intervention summary for education details and skills performed. Plan of care and visit frequency established with patient and plan of care agreed upon. Patient demonstrated a need for further skilled SN services for chronic disease management & education, medication education, infusion care, labs, safety and infection control/prevention RECOMMENDATION: Visit Frequency: 5w1 , 1w8, 3 PRN Need for additional services: Patient agreeable to [facility] OPPORTUNITY ASSIST[facility] referrals. Patient declined N/A referrals. Additional concerns to be followed up on: NONE During visit, patient demonstrated need for continued IV infusion education and needs further instructions focused on hooking up TPN. Next visit to focus on (be specific): TPN education, urine monitoring, weight monitoring, labs, PICC care documented in this encounterSelect [facility] [place]10-30-2022 Miscellaneous Notes* HH SN Abbrev SOC IV 1st Visit - Darcy De Leon RN - 02/11/2022 6:26 PM EDT SITUATION: Assisted Abbreviated SOC IV 1st visit completed today. only patient also present during today's visit. patient reports the following: Allergies--reviewed Medications--full medication reconciliation completed Falls--None BACKGROUND: Discharged/Referral from [facility] on 02/09/22 following treatment for pancreatitis and abdominal abscesses. ASSESSMENT: SN greeted at door by patient no DME and demonstrates stable gait. Patient appears in no acute distress. Patient lives at home alone. Home environment: cluttered and has pets: 2 large dogs. SOC booklet reviewed & completed with patient and consent obtained for Home Care services. Patient/CG concerns verbalized today: pt verbalizes that she does not know how she is going to manage the infusion and her dogs. Vitals (see flow sheet for details): stable SN findings today: Pt requires notice before you arrive to the home because she needs to open a gate and manage an electric type cord for her dog control. Pt has 2 large dogs that are friendly but she cannot take the risk of them leaviing her property and has a system in place for this. Upon SN arrival to home; it was discovered that pt lives alone and has no available assistance. CC Home health book reviewed and consent signed by pt. When SN started to review the TPN lump room supervisor procedure; pt reports that she cannot lump room supervisor to TPN until she is able to let her dogs out at about 11 pm. With further discussion, pt feels that she could to this about 9:15-10 pm to accomodate a 12 hour infusion. Shestates that she will need to be in her bedroom with door closed before she is able to connect to infusion. Her dogs will need to be in the home but not in her bedroom. She verbalizzes concerns about this because one of them usually sleeps with her but states that she will keep the door closed because she is concerned of their reaction to all of the new equip. She will need to get up and let them out by 10 am. Much discussion took place and pt is agreeable to start infusion at 10 pm tonight and take down at 10 am tomorrow. This will require pt to be independent with lump room supervisor and take down tonight. This SN concentrated instruction for this purpose, limited instuction for TPN bag preparation; this SN performed and had pt return demonstrate how to flush PICC, connect IV tubing, disconnect IV tubing in am when the pump alarms infusion complete, flush PICC and apply new alcohol cap. Pt is agreeable. This SN prepared infusion, primed line and left at KVO rate with end of tubing in waterproof package. Pt to flush PICC, connect IV tubing when she is ready for bed by 10 pm. Concern expressedfor using bathroom during the night. SN informed pt that she will need to urinate during the night and pt does have a BSC. SN assisted her with setting this up at her bedside. Ptleft with step by step written instructions for what to do tonight and how to contact [facility] if she has difficulty. Pt is not pleased with the whole procedure;she did not realize that this would be so complicated for her. SN provided much encouragement and pt agreeable to plan for tonight. This will need to be re-evaluated in am. Pt will take down IV in am about 10 am, will then let her dogs out and prepare for next SN arrival between 10;30-11:00 am. See intervention summary for education details and skills performed. RECOMMENDATION: During visit, patient demonstrated need for continued IV infusion education and needs further instructions focused on see above. Additional concerns to be followed up on: pt ability to safely manage home infusion. documented in this encounterSelect [facility] [place]10-30-2022 Miscellaneous Notes* CARE COORDINATION - Barbi Perera RN - 02/11/2022 11:20 AM EDT Received a call from this patient wanting to know when a nurse will be out to lump room supervisor her PICC line. Informed patient that she is scheduled for a TPN lump room supervisor this evening as an operational meteorologist visit and thenurse will give her a call approximately after 4-5p today with the time she will be at this patient's house. Patient verbalized understanding. documented in this encounterSelect [facility] [place]10-29-2022 History of Present illness Narrative* Jazmine Frank RN - 02/10/2022 3:21 PM EDT [facility] Home Visit Referral Source of Stratification: [facility] Admission Status: Discharged Readmission Risk Score: 30 TASHA Score: 0.26679 Patient meets program referral criteria: No Patient does not qualify for High Risk TCM Home Visit program due to: Discharged home, does not meet program criteria Jazmine Frank RN February 10, 2022 3:21 PM TRANSITIONAL CARE MANAGEMENT (TCM) COMMUNITY MONITORING PROGRAM Provider Action/FYI: 02/20/22 hospital f/u SUMMARY: Pt discharged from [place] on 02/09. Admitted for: Nausea and vomiting s/p abcess RUQ abd Contact made with patient: Yes Hi my name is Jazmine Frank RN and I am calling from the [facility] on behalf of your PCP,Lizbeth Pool MD I understand you were recently in the hospital so I am calling to check in with you to ensure you are feeling well now that you're home. May I ask you a few questions related to your hospital stay and well-being? Yes Contact with patient post discharge, spoke to patient. Patient identified by name and . Do you feel your health is BETTER, WORSE, or the SAME since leaving the hospital? Better ACTION TAKEN: Patient indicated symptoms are better or same, no action required. Continue outreach. MEDICATIONS: Many patients have questions or concerns about their medications once they are home. Do you have any questions about taking your medications or which medication you should be on? No Do you need any medication refills at this time, including any of the medications you might take only when needed? No ACTION TAKEN: No action required For RNs or Pharmacy completing outreach ONLY, was a medication review completed? Yes Start- oxycodone Pt needs to pickup from pharmacy Stop - Amoxicillin-clavulanic acid fluconazole sulfamethoxazole-trimethoprim SOCIAL: We would like to make sure you have what you need so that your basics needs are met - including your personal safety, food, housing and medications. Would you like to speak with a social work cdl team truck driver to help give you support for any of these needs? No It can be normal to feel anxious or down during a time like this. Would you like to talk to a mental health professional about how you have been feeling? No ACTION TAKEN: No action taken DISCHARGE INTRUCTIONS: Your discharge instructions / After Visit Summary (AVS) are important in guiding you through the recovery process. Do you have any questions related to your discharge instructions? Yes Do you have all the necessary equipment and supplies at home? Yes ACTION TAKEN: No action required I would like to help you schedule a hospital follow-up virtual or telephone visit with your PCP. This is a great way for you to connect with your provider to ensure you have safely transitioned home.If you are agreeable, I will send your request to a project scheduler who will contact and assist you with that appointment. This will give you an opportunity to ask any questions or address any concerns youmay have with your PCP. Inform the patient that if they have any questions or concerns prior to that appointment, to call their PCP's office right away. ACTION TAKEN: No action required, patient already has an appointment scheduled. Your doctor would like us to remind you of the recommendations regarding the coronavirus (Covid19) outbreak: Avoid public places as much as possible. Avoid close contact (within 6 feet) with others you don t live with, especially if they are sick. Stay home if you are sick. Wash your hands regularly for at least 20 seconds with soap and water. Wear a cloth mask in public places to help reduce community spread. Do not go to your Doctor s office unless instructed to do so. For any non- emergency symptoms, call your Doctor s office to get instructions on how to manage (we might recommend a telephone or virtualvisit). For emergency symptoms, proceed to Emergency Department as usual but inform them of cough and fever symptoms RENEE if present (or call on the way if possible). Reviewed with pt: May bathe and shower May use stairs No lifting restrictions No prolonged bedrest, longer than 8 hours in a 24 hour period No walking restrictions Resume pre-hospital activity Diet Instructions Drink 6 to 8 glasses of fluids per day Resume your pre-hospital diet Call Your Doctor If You have a severe headache You have lightheadedness, fainting, or confusion You have persistent nausea/vomiting over 24 hours You have persistent or heavy bleeding You have swollen glands or cold and clammy skin Your temperature is greater than 101F documented in this encounterSelect [facility] [place]10-28-2022 Miscellaneous Notes* Telephone Encounter - Lizbeth Pool MD - 02/09/2022 4:09 PM EDT Agree and will sign HH orders. * Telephone Encounter - Nasrin Baltazar RN - 02/09/2022 2:00 PM EDT Lizbeth Pool MD Patient discharging today from [facility]. New TPN to be managed by Dr. Oro. Please advise if you are agreeable to signing and following for HHC services? Our Clinicians will be sending the Plan of Care to you for review and approval. They will reach out for any appropriate orders required to provide home care services for the patient. We are not able to initiate HHC services without a following provider. Home care clinicians may also obtain orders from [facility] Virtualist Providers Thank you and we would be happy to answer any questions. Nasrin Baltazar RN 02/09/2022 2:01 PM documented in this encounterSelect Medical Specialty [facility] [place]10-28-2022 Miscellaneous Notes* Telephone Encounter - Lexi Main LPN - 02/09/2022 2:58 PM EDT Phoned Nasrin and left detailed message on her voicemail with notes from Dr Nguyen. If any questions to return call to [phone]. * Telephone Encounter - Richard Nguyen MD - 02/09/2022 2:50 PM EDT PCP will follow and sign orders as needed Richard Nguyen MD * Telephone Encounter - Lexi Main LPN - 02/09/2022 2:42 PM EDT Nasrin from [facility] calling patient is being discharged from [facility]. Patient has malnutrition and pancreatitis, abdominal abscess from bowel perforation, going home on TPN. Dr Oro will follow the TPN. Asking if Dr will follow patient and sign orders? Aware PCP is out of office this afternoon. PCP had agreed back on 01/17 but patient refused home care then. aware message is being sent to Dr monitor worker to advise. Please advise documented in this encounterSelect Medical [facility] [place]10-26-2022 History of Present illness Narrative* Vonnie Esparza MD - 02/07/2022 1:07 PM EDT Patient referred by: Dr. Abundio Fu MD HPI: This is a follow-up patient visit from Dr. Fu. 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 She has a history of recurrent episodes of acute pancreatitis occurring several times a month. She has a history of steatorrhea, severe protein calorie malnutrition and weight loss. She underwent a cholecystectomy with me a few months ago. Recently she also had an ERCP with Dr. Vaz where she was found to have an ampullary stricture, very strictured and tortuous pancreatic duct where he was only able to place a short pancreatic duct stent. Unfortunately after her ERCP she developed a contained duodenal perforation which needed to be managed nonoperatively. Following this, she underwent a PEG tube placement for nutritional supplementation however she did not tolerate it well and had it removed. She subsequently underwent a repeat ERCP with PD stenting which helped her for a few months. She subsequently developed recurrent abdominal pain clinically seco ndary to pancreatitis and underwent another attempted ERCP with PD stenting. At that time she suffered from another duodenal perforation and needed admitted to the hospital. Following admission to the hospital she required drain placement and antibiotic therapy. During her hospitalization she was offered IV nutritional supplementation because of her severe protein calorie malnutrition however shedeclined. She was then discharged home. She recently suffered from an episode of pneumonia and was admitted to [facility] where she required an additional drain placement. It appears that parenteral nutrition was recommended there aswell. At this point in time, she suffers from persistent abdominal pain. She is also suffering frombilious emesis for the past day and a half. She is able to take small portions of 2 meals per day only. Her urine and stool color are normal. The drains have had minimal whitish output. No fevers or chills. PAST MEDICAL HISTORY Diagnosis Date Acute hepatitis C without mention of hepatic coma(070.51) negative RNA in 2016 Anxiety state 05/29/2005 Dr. Ryan Arthritis Bulimia 02/16/2013 Cervical vertebral fracture (HCC) 05/07/2011 Chronic obstructive pulmonary disease (COPD) (HCC) does not use inhalers. 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 Not on medications, not seeing neurology. 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 Choi-ID Prediabetes Psoriasis Rheumatoid arthritis involving multiple sites with positive rheumatoid factor (HCC) 12/13/[address] Bowden RLS (restless legs syndrome) 08/29/2011 Vasovagal syncope Vitamin D deficiency PAST SURGICAL HISTORY Procedure Laterality Date CHOLECYSTECTOMY 409499 lap COCHLEAR IMPLANT HX COLONOSCOPY FLX DX W/COLLJ SPEC WHEN PFRMD 10/11/2009 Colonoscopy COLONOSCOPY FLX DX W/COLLJ SPEC WHEN PFRMD 09/30/2018 Colonoscopy EGD EUS N/A 04/06/2020 diffusely dilated PD, suspected pancreas divisum, mild duodenitis ESOPHAGOGASTRODUODENOSCOPY TRANSORAL DIAGNOSTIC 09/30/2018 EGD OPEN TREATMENT NASAL FRACTURE UNCOMPLICATED x2 no breathing problems PAST SURGICAL HISTORY OF X 2 PAST SURGICAL HISTORY OF FACIAL RECONSTRUCTION PAST SURGICAL HISTORY OF 1997 BILAT. SHOULDER SURGERY PAST SURGICAL HISTORY OF 1994 CERVICAL SPINE FUSION C4, C5 (had cervical fx x3 - even after repair) PAST SURGICAL HISTORY OF 1969 LEFT EAR CHOLESTEATOMA PAST SURGICAL HISTORY OF CLEFT LIP PAST SURGICAL HISTORY OF 02/2006 lasik PAST SURGICAL HISTORY OF 2004 bladder sling PAST SURGICAL HISTORY OF 08/09/2020 Upper endoscopy, percutaneous endoscopic gastrostomy (PEG) tube placed REMV CATARACT EXTRACAP,INSERT LENS Bilateral TRACHEOSTOMY EMERGENCY PROCEDURE TRANSTRACHEAL age 3 or 4 during surgery; lost airway FAMILY HISTORY Problem Relation Age of Onset Stroke Mother Hypertension Mother Diabetes Father Cancer Father melanoma Kidney transplant Father Cancer Sister thyroid Breast Cancer Sister Breast Cancer Sister Cancer Brother 21 testicular Breast Cancer Maternal Aunt Cancer Other L-[id number] Social History Tobacco Use Smoking status: Every Day Packs/day: 1.00 Years: 30.00 Pack years: 30.00 Types: Cigarettes, Pipe Last attempt to quit: 06/02/2017 Years since quittin.6 Smokeless tobacco: Never Vaping Use Vaping Use: Never used Substance Use Topics Alcohol use: No Drug use: No Comment: IV DRUG USER Current Outpatient Medications Medication Sig abatacept (ORENCIA) 125 mg/mL INJECT THE CONTENTS OF 1 SYRINGE (125 MG) UNDER THE SKIN ONCE EACH WEEK (NO ADDITIONAL REFILLS UNTIL OFFICE VISIT 10/11/2021) fluconazole (DIFLUCAN) 200 mg tablet Take 1 tablet by mouth once daily. pantoprazole DR (PROTONIX) 40 mg tablet Take 1 tablet by mouth DAILY (6 AM). senna-docusate (SENNA-S) 8.6-50 mg per tablet Take 1 tablet by mouth twice daily. ergocalciferol 50,000 unit capsule (VITAMIN D2, DRISDOL) Take 1 capsule by mouth one time a week. losartan (COZAAR) 25 mg tablet Take 1 tablet by mouth once daily. calcium carbonate 600 mg-cholecalciferol 400 units (CALCIUM 600 + D) 600 mg-10 mcg (400 unit) tab Take 1 tablet by mouth once daily. leafqg-vbkpkhbk-fpfpukq (CREON) 6,000-19,000 -30,000 unit delayed release capsule Take 2 capsules by mouth with meals and at bedtime. atorvastatin (LIPITOR) 40 mg tablet Take 0.5 tablets by mouth daily at bedtime. For cholesterol. albuterol (PROVENTIL) 2.5 mg /3 mL (0.083 %) nebulizer solution Use 3 mL via nebulizer every 4 hours as needed for wheezing/shortness of breath. Use over 5-15minutes. ALPRAZolam (XANAX) 1 mg tablet Take 1 mg by mouth twice daily. QUEtiapine (SEROQUEL) 100 mg tablet Take 2 tablets by mouth daily at bedtime. polyethylene glycol 3350 (MIRALAX, GLYCOLAX) 17 gram packet Take 1 Packet by mouth once daily. Dissolve dose in 4 - 8 ounces of liquid and take as directed. guaiFENesin-dextromethorphan (ROBITUSSIN DM) 100-10 mg/5 mL syrup Take 10 mL by mouth every 4 hoursas needed for cough. Food Supplement, Lactose-Free (ENSURE ORIGINAL) liqd Take 237 mL by mouth three times daily with meals. Nebulizers 1 Each once daily. benzonatate (TESSALON PERLE) 100 mg capsule Take 1-2 capsules tid prn, no more than 6 in 24 hours. (Patient not taking: Reported on 02/07/2022) Blood Pressure Monitor (BLOOD PRESSURE KIT) 1 Each once daily as needed. Dx: recurrent syncope R55 No current facility-administered medications for this visit. ALLERGIES Allergen Reactions Acetaminophen Hives Bupropion Hcl Unknown Codeine Rash, Itching Darvon [Propoxyphen* Itching Daypro [Oxaprozin] Rash Effexor [Venlafaxin* Intolerance decreased libido Flexeril [Cyclobenz* GI Upset, Vomiting Gabapentin Mental Status Change hangover Stebbins [Hydrocodone-* GI Upset, Itching nausea, itching Oxybutynin Other: See Comments Urinary retention Pentazocine Itching Iberia Trees [Trees] rash Tramadol Intolerance REVIEW OF SYSTEMS: Review of Systems Constitutional: Negative for chills, fever, malaise/fatigue and weight loss. Respiratory: Negative for cough, shortness of breath and wheezing. Cardiovascular: Negative for chest pain, orthopnea and leg swelling. Gastrointestinal: Positive for abdominal pain, nausea and vomiting. Negative for blood in stool, constipation, diarrhea, heartburn and melena. Genitourinary: Negative for dysuria and frequency. Musculoskeletal: Negative for falls and myalgias. Skin: Negative for rash. Neurological: Negative for dizziness, tingling, tremors and weakness. Endo/Heme/Allergies: Does not bruise/bleed easily. Psychiatric/Behavioral: Negative for depression, substance abuse and suicidal ideas. The patient isnot nervous/anxious and does not have insomnia. PHYSICAL EXAM: BP 133/84 Pulse 86 Ht 5' 4 (1.63m) Wt 122 lb (55.3kg) BMI 20.93 kg/(m^2). Last 2 Encounter Wt Readings: Date: Wt: 02/07/2022 55.3 kg (122 lb) 01/14/2022 61.9 kg (136 lb 7.4 oz) Physical Exam Vitals reviewed. Constitutional: General: She is not in acute distress. Appearance: She is not diaphoretic. Comments: Cachectic appearing HENT: Head: Normocephalic. Eyes: General: No scleral icterus. Conjunctiva/sclera: Conjunctivae normal. Pupils: Pupils are equal, round, and reactive to light. Neck: Thyroid: No thyromegaly. Trachea: No tracheal deviation. Cardiovascular: Rate and Rhythm: Regular rhythm. Pulmonary: Effort: Pulmonary effort is normal. No respiratory distress. Breath sounds: No wheezing. Chest: Chest wall: No tenderness. Abdominal: General: There is no distension. Palpations: There is no mass. Tenderness: There is no abdominal tenderness. There is no guarding or rebound. Hernia: No hernia is present. Comments: Abdominal drains are in place with purulent output. Musculoskeletal: General: No tenderness or deformity. Normal range of motion. Cervical back: Normal range of motion and neck supple. Lymphadenopathy: Cervical: No cervical adenopathy. Skin: General: Skin is warm and dry. Coloration: Skin is not pale. Findings: No erythema or rash. Neurological: Mental Status: She is alert and oriented to person, place, and time. Coordination: Coordination normal. Psychiatric: Mood and Affect: Mood and affect normal. DATA: Diagnostic tests reviewed for today's visit Most recent labs Most recent imaging I spent a total of 60 minutes on the date of the service which included preparing to see the patient, [id number] patient care, completing clinical documentation, obtaining and/or reviewing separately obtained history, performing a medically appropriate examination, counseling and educating the pat ient/family/caregiver, communicating with other HCPs (not separately reported), independently interpreting results (not separately reported), and communicating results to the patient/family/caregiver. ASSESSMENT / PLAN: Problem List Items Addressed This Visit None Visit Diagnoses Duodenal perforation (HCC) - Primary Idiopathic chronic pancreatitis (HCC) Severe protein-calorie malnutrition (HCC) Bilious vomiting with nausea Medical Decision Making: Problems: Moderate: 2+ stable chronic illnesses and New problem with uncertain prognosis Data: Unique source(s) for external note(s) reviewed: 3+ Unique test result(s) reviewed: 3+ Discussed management or test w/ external physician/QHCP/source Risk: High: High risk from testing/treatment Medical Decision Making Level: 5 - High In summary, this is a 66-year-old female with history of ambulatory stenosis and recurrent, chronicpancreatitis secondary to that. She has been under my care since 2020 and has had at least 3 ERCPs with attempted pancreatic duct stenting's. The stenting has temporarily caused her relief which tends to recur several months after removal of the stent. However she has also suffered from at least 2 duodenal perforations. The most recent of which was in December 2021 and has been quite severe. Margarettehas required at least 3 hospitalizations and 2 drains to be placed within her abdomen to drain intra-abdominal abscesses. At this point in time she is also not tolerating any adequate oral intake. Inthe recent past she has refused parenteral or enteral supplementation because of needing to care for her daughter. I counseled her strongly towards accepting some kind of nutritional supplementation as her current oral intake is quite abysmal. In the same setting, I am also concerned about gastric outlet obstruction or possible complications secondary to the duodenal perforation. In light of all the above, I recommended to her admission to the hospital with the goal expedient imaging evaluation and nutritional supplementation. Depending on her imaging studies she may or may not need more percutaneous drain placement or antibiotics. With regards to the ampullary stenosis, because of her current duodenal perforation and all the inflammation secondary to it, I do not believemargarette is a good candidate for any operative interventions to address that at this time. I also strongly encouraged her to quit tobacco usage. She and her family members were present at the time of discussion. All questions and concerns were addressed. They showed good understanding and agreed to proceed. Vonnie Esparza MD documented in this encounterSelect [facility] [place]-26-2022 Instructions* Patient Instructions* Vonnie Esparza MD - 02/07/2022 11:25 AM EDT Direct admit to the hospital. documented in this encounterSelect Medical Specialty [facility] [place]10-26-2022 Nurse Note* Lina Esquivel MA - 02/07/2022 10:19 AM EDT Patient states she has increased pain and severe nausea and vomiting the past 24 hours, low appetite. documented in this encounterSelect Medical [facility]ty [facility] [place]10-25-2022 Miscellaneous Notes* Telephone Encounter - Nicky Navarro LPN - 02/06/2022 2:45 PM EDT PATIENT NOTIFIED OF SAME. Patient scheduled 02/20/22. * Telephone Encounter - Julia Arredondo LPN - 02/06/2022 2:30 PM EDT Phoned patient and message left that PCP wants her to be seen in office for hospital follow up. Requested she call back to schedule appt. * Telephone Encounter - Sierra Blair Ma - 02/02/2022 1:04 PM EDT Please assist with scheduling in office appt. Sierra Blair Ma * Telephone Encounter - Lizbeth Pool MD - 02/02/2022 10:46 AM EDT Based on what she had done she really needs to be seen in office for this. Phone visit is not appropriate. Recommend OV in the next 1-2 weeks. * Telephone Encounter - Lexi Main LPN - 02/02/2022 9:08 AM EDT Patient calling was discharged last evening from [facility], had been transferred from [facility]. Patient said had procedure per Dr Fu and punctured bowel and she has abdominal abscess, hasdrains. Patient said she can not drive to come in for appt and can not do my chart virtual visit. Patient asking if she could get telephone visit set up for hospital follow up? Please advise documented in this encounterSelect [facility] [place]10-24-2022 Miscellaneous Notes* Telephone Encounter - Aziza Coxdiogo Linder - 02/05/2022 2:57 PM EDT Most recent Rheumatology visit: 11/29/2021 (with Deloris Juarez) Recent Office Visits - This Specialty Visits with Pr 12/05/2016 Rheumatoid arthritis involving multiple sites with positive rheumatoid factor (HCC) Other Visits 11/29/2021 Inflammatory arthritis Rheumatology Deloris Juarez APRN.EDMUND 01/12/2019 Rheumatoid arthritis involving multiple sites with positive rheumatoid factor (HCC) Rheumatology Deloris Juarez APRN.EDMUND 07/03/2018 Rheumatoid arthritis involving multiple sites with positive rheumatoid factor (HCC) Rheumatology Mary Ellen (Capper Machine Operator)(Hist) Pee Upcoming Rheumatology Appointments - Next 365 Days Visit Type Date Time Department AZALIA SHIVANI NURSE [facility] CBC: CBC Latest Ref Rng & Units 01/18/2022 01/19/2022 WBC 3.70 - 11.00 k/uL 9.71 9.88 HGB - - - HEMOGLOBIN 11.5 - 15.5 g/dL 11.1(L) 11.4(L) HEMOGLOBIN, FRANCESCA 12.0 - 16.0 g/dL - - HEMATOCRIT 36.0 - 46.0 % 34.3(L) 35.3(L) PLATELETS 150 - 400 k/uL 385 422(H) ABS NEUT (ANC) 1.45 - 7.50 k/uL 7.28 7.43 ABS NEUT, FRANCESCA 2.0 - 8.1 k/uL - - LYMPH ABS 1.2 - 4 K/uL - - ABS LYM 1.0 - 4.0 k/uL - - ABS LYMP, FRANCESCA 1.0 - 5.5 k/uL - - ABS LYMPH 1.00 - 4.00 k/uL 1.82 1.80 Vitamin D: Vitamin D Latest Ref Rng & Units 12/03/2019 11/30/2021 VITAMIN D 25 HYDROXY 31.0 - 80.0 ng/mL 22.9(L) 17.5(L) LFT: CMP Latest Ref Rng & Units 01/18/2022 01/19/2022 SODIUM 136 - 144 mmol/L 145(H) 141 SODIUM, FRANCESCA 132 - 148 mmol/L - - SODIUM, FRANCESCA 132 - 148 mmol/L - - POTASSIUM 3.7 - 5.1 mmol/L 3.7 4.1 POTASSIUM, FRANCESCA 3.5 - 5.0 mmol/L - - CHLORIDE 97 - 105 mmol/L 108(H) 102 CHLORIDE, FRANCESCA 98 - 110 mmol/L - - CO2 22 - 30 mmol/L 25 27 CO2, FRANCESCA 23.0 - 32.0 mmol/L - - GLUCOSE 74 - 99 mg/dL 121(H) 139(H) GLUCOSE (U), FRANCESCA NEGAT mg/dL - - GLUCOSE, FRANCESCA 65 - 100 mg/dL - - BUN 7 - 21 mg/dL 9 13 BUN, FRANCESCA 10 - 25 mg/dL - - CREATININE 0.58 - 0.96 mg/dL 0.66 0.71 CREATININE, FRANCESCA 0.7 - 1.4 mg/dL - - CALCIUM, FRANCESCA 8.5 - 10.5 mg/dL - - CALCIUM, TOTAL 8.5 - 10.2 mg/dL 9.4 9.8 AST 13 - 35 U/L 27 - AST, FRANCESCA 7 - 40 U/L - - ALT 7 - 38 U/L 26 - ALT, FRANCESCA 0 - 45 U/L - - ALKALINE PHOSPHATASE 34 - 123 U/L 64 - Creatinine: Creatinine Latest Ref Rng & Units 01/18/2022 01/19/2022 CREAT 0.58 - 0.96 mg/dL 0.66 0.71 ESR/CRP: ESR, WSR Latest Ref Rng & Units 12/03/2019 11/30/2021 WSR 0 - 20 mm/hr 2 9 CRP Latest Ref Rng & Units 08/06/2020 11/30/2021 CRP <0.9 mg/dL 3.1(H) 2.0(H) Uric Acid: None on file in the last 6 months Open Standing (Multiple Instance) Lab Orders None Open Future (Single Instance) Lab Orders None * Telephone Encounter - Malika Rory - 02/05/2022 2:21 PM EDT Patient has been identified by name and date of : Yes Requested Prescriptions Pending Prescriptions Disp Refills abatacept (ORENCIA) 125 mg/mL 4 mL 5 Sig: INJECT THE CONTENTS OF 1 SYRINGE (125 MG) UNDER THE SKIN ONCE EACH WEEK (NO ADDITIONAL REFILLSUNTIL OFFICE VISIT 10/11/2021) RX INSTRUCTIONS: Patient aware RX will be sent to pharmacy. No need to notify patient. Patient stated if you call this number they will refill [phone] Malika Valadez documented in this encounterSelect Medical Specialty [facility] [place]10-11-2022 History of Present illness Narrative* Marylin Byrd, [facility] - 01/23/2022 11:51 AM EDT TRANSITION CARE MANAGEMENT (TCM) PHARMACY CONTACT Provider Action/FYI: Medication reconciliation services declined due to patient preference. TCM medication reconciliation incomplete at this time Pt reports she is currently admitted at [facility] (was admitted yesterday 01/22). Initial contact with patient post discharge, spoke to patient. Patient identified by name and . Summary: -Pt discharged from [facility] on 01/20/22. -Follow up appointment on defer to TCM RN. -Medication review done: Declined at this time per patient preference -Admitted for peripancreatic abscesses, serratia pneumonia, acute on chronic pancreatitis, copd Patient was contacted by telephone, identified for pharmacist care from discharge call list, and gave consent to manage medications related to transitional care management pursuant to the consult agreement with the [facility] [place]. Patient Concerns: Deferred as pt is currently admitted. History of Present Illness: The following content has been copied and pasted from patient's discharge summary. If discharge summary unavailable, After Visit Summary or last pertinent inpatient notes are copied and pasted. REASON I WAS IN THE HOSPITAL: peripancreatic abscesses, serratia pneumonia, acute on chronic pancreatitis, copd SUMMARY OF WHAT HAPPENED WHILE I WAS IN THE HOSPITAL: Patient was admitted for peripancreatic abscesses, serratia pneumonia, acute on chronic pancreatitis, copd. 66 year old female with history of RLS, psoriasis, prediabetes, migraines, HLD, depression, COPD, anxiety, Hep C and RA presented to the hospital due to excessive fatigue, cough, shortness of breath, fevers, and ongoing abdominal pain. CT scan showed bilateral pneumonia with pleural effusion and peripancreatic abscess. She was given antibiotics and surgery was consulted. The patient underwent abscessogram and placement of alternate drain and exchange of previous drain. Infectious disease was consulted and antibiotics were adjusted. An antifungal was started. She had a midline IV placed as well. Cultures were sent from the abscess fluid along with a sputum culture. Her antibiotics were adjusted based on culture results. She was given a prednisone burst for COPD exacerbation. Her oxygen was weaned off. She was seen by physical therapy and home health care was recommended. She continued to improve. On the day of discharge she had an ambulatory pulse oximetry study done and did not require oxygen at discharge. She was discharged home with home health care in stable condition. Medication Reconciliation: Legend: Stopped, New, Changed, Added to list Medication List Medication Directions Comments Action/Plan Discontinued: 01/20/2022 2:44 PM Stop per AVS albuterol (PROVENTIL) 2.5 mg /3 mL (0.083 %) nebulizer solution Use 3 mL via nebulizer every 4 hours as needed for wheezing/shortness of breath. Use over 5-15minutes. ALPRAZolam (XANAX) 1 mg tablet Take 1 mg by mouth twice daily. Discontinued: 01/20/2022 2:44 PM Stop per AVS atorvastatin (LIPITOR) 40 mg tablet Take 0.5 tablets by mouth daily at bedtime. For cholesterol. benzonatate (TESSALON PERLE) 100 mg capsule Take 1-2 capsules tid prn, no more than 6 in 24 hours. Blood Pressure Monitor (BLOOD PRESSURE KIT) 1 Each once daily as needed. Dx: recurrent syncope R55 calcium carbonate 600 mg-cholecalciferol 400 units (CALCIUM 600 + D) 600 mg-10 mcg (400 unit) tab Take 1 tablet by mouth once daily. Discontinued: 01/20/2022 2:44 PM Stop per AVS ergocalciferol 50,000 unit capsule (VITAMIN D2, DRISDOL) Take 1 capsule by mouth one time a week. Discontinued: 01/20/2022 2:44 PM E-rx 01/09 #6 fluconazole (DIFLUCAN) 200 mg tablet Take 1 tablet by mouth once daily. E-rx to [facility] #30 Dose and duration increase ECG 01/18/22 Per 01/20 ID note: Continue fluconazole 200 mg daily through next abscessogram/visit with general surgery who will be managing her drains and infected peripancreatic fluid collections. Food Supplement, Lactose-Free (ENSURE ORIGINAL) liqd Take 237 mL by mouth three times daily with meals. guaiFENesin-dextromethorphan (ROBITUSSIN DM) 100-10 mg/5 mL syrup Take 10 mL by mouth every 4 hoursas needed for cough. Med update qhajnv-wbgjmfur-dejgaoh (CREON) 6,000-19,000 -30,000 unit delayed release capsule Take 2 capsules by mouth with meals and at bedtime. losartan (COZAAR) 25 mg tablet Take 1 tablet by mouth once daily. Discontinued: 01/20/2022 2:44 PM Stop per AVS Nebulizers 1 Each once daily. Discontinued: 01/20/2022 2:44 PM Stop per AVS oxyCODONE IR (ROXICODONE) 5 mg immediate release tablet Take 1 tablet by mouth every 8 hours as needed for pain for up to 3 days. E-rx to [facility] Received Fluconazole and Oxycodone together during admission pantoprazole DR (PROTONIX) 40 mg tablet Take 1 tablet by mouth DAILY (6 AM). E- rx to [facility] Discontinued: 01/20/2022 2:44 PM Stop per AVS polyethylene glycol 3350 (MIRALAX, GLYCOLAX) 17 gram packet Take 1 Packet by mouth once daily. Dissolve dose in 4 - 8 ounces of liquid and take as directed. E-rx to [facility] Discontinued: 01/20/2022 2:44 PM Stop per AVS QUEtiapine (SEROQUEL) 100 mg tablet Take 2 tablets by mouth daily at bedtime. Discontinued: 01/20/2022 2:44 PM Stop per AVS Discontinued: 01/20/2022 2:44 PM Stop per AVS senna-docusate (SENNA-S) 8.6-50 mg per tablet Take 1 tablet by mouth twice daily. E-rx to [facility] Discontinued: 01/20/2022 2:44 PM Stop per AVS sulfamethoxazole-trimethoprim (BACTRIM DS,SEPTRA DS) 800-160 mg per tablet Take 1 tablet by mouth every 12 hours for 5 doses. E-rx to [facility] Per 01/20 ID note: Start Bactrim 1 DS tab p.o. twice daily for an additional 3 days through 01/22/2022 Potassium Date Value Ref Range Status 01/19/2022 4.1 3.7 - 5.1 mmol/L Final Discontinued: 02/09/2019 2:31 PM E-rx 12/2018 D/c 02/09/19 Still showing on med list Removed Preferred pharmacy: e- [id number] [place] [address] - [address] [facility] [phone] [address] [facility] [place] [id number] e- [facility] [place] [id number] - [address] [place] [address] - [phone] [address] [facility] [address] [facility] [address] [place] [address] Estimated Creatinine Clearance: 71.4 mL/min (based on SCr of 0.71 mg/dL). Estimated Glomerular Filtration Rate (mL/min/1.73m ) Date Value 01/19/2022 95 eGFR- (no units) Date Value 02/10/2021 >60 ALLERGIES Allergen Reactions Acetaminophen Hives Bupropion Hcl Unknown Codeine Rash, Itching Darvon [Propoxyphen* Itching Daypro [Oxaprozin] Rash Effexor [Venlafaxin* Intolerance decreased libido Flexeril [Cyclobenz* GI Upset, Vomiting Gabapentin Mental Status Change hangover Stebbins [Hydrocodone-* GI Upset, Itching nausea, itching Oxybutynin Other: See Comments Urinary retention Pentazocine Itching Iberia Trees [Trees] rash Tramadol Intolerance PAST MEDICAL HISTORY Diagnosis Date Acute hepatitis C without mention of hepatic coma(070.51) negative RNA in 2016 Anxiety state 05/29/2005 Dr. Ryan Arthritis Bulimia 02/16/2013 Cervical vertebral fracture (HCC) 05/07/2011 Chronic obstructive pulmonary disease (COPD) (HCC) does not use inhalers. 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 Not on medications, not seeing neurology. 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 Choi-ID Prediabetes Psoriasis Rheumatoid arthritis involving multiple sites with positive rheumatoid factor (HCC) 12/13/[address] Bowden RLS (restless legs syndrome) 08/29/2011 Vasovagal syncope Vitamin D deficiency Social History Tobacco Use Smoking status: Former Packs/day: 1.00 Years: 30.00 Pack years: 30.00 Types: Cigarettes, Pipe Quit date: 06/02/2017 Years since quittin.6 Smokeless tobacco: Never Vaping Use Vaping Use: Never used Substance Use Topics Alcohol use: No Drug use: No Comment: IV DRUG USER Immunization History Administered Date(s) Administered Influenza 02/15/2015 Influenza ID Quadrivalent Pres Free 02/21/2017 Influenza Nasal, unspecified formulation 02/07/2016 Influenza Seasonal Inj Age 3+ 02/16/2014 Influenza Seasonal Inj Quad Age 6 Mo - 64 Yrs 02/15/2015 02/07/2016 01/08/2018 05/12/2019 01/22/2020 04/11/2021 Influenza Seasonal Trivalent Inj Pres Free 01/13/2017 Influenza Vaccine, Split-Non Spec 02/15/2012 01/24/2013 02/16/2014 Pneumococcal-13 Vac Conjugate 11/15/2014 Pneumovax 02/03/2003 11/15/2014 Tdap (Age 7+) 12/30/2009 09/14/2013 Additional follow up: Appointments for Next 60 Days Date Time Provider Location Dept Phone 02/07/2022 10:30 AM VONNIE ESPARZA [place] [phone] 03/19/2022 11:20 AM NATASHA RAY Francesca [facility] [phone] Interventions Made: None Pharmacist Recommendations Made None Care Coordination: None at this time Time spent on patient: 15-30 minutes Marylin Byrd RPh January 23, 2022 11:51 AM documented in this encounterSelect Medical [facility]ty [facility] [place]10-10-2022 Miscellaneous Notes* Telephone Encounter - Lizbeth Pool MD - 01/22/2022 4:32 PM EDT Reviewed. * Telephone Encounter - Marylin Easley - 01/22/2022 4:14 PM EDT Spoke with the patient's daughter, Jaye, who informed me that the patient is currently in the emergency room with suspected internal bleeding. The patient's daughter has cancelled the appointment for tomorrow. * Telephone Encounter - Julia Arredondo LPN - 01/22/2022 4:05 PM EDT Phoned patient to discuss her appt for tomorrow. Dr Pool isn't able to do a hospital via VV needs to be in office and for 40 min. Patient's VM was full but able to leave SMS with facilities call back number. documented in this encounterCleveland [id number] History of Present illness Narrative* Elisabet Mann RN - 01/21/2022 1:18 PM EDT Images from the original note were not included. TRANSITIONAL CARE MANAGEMENT (TCM) COMMUNITY MONITORING PROGRAM Provider Action/FYI: REASON I WAS IN THE HOSPITAL: peripancreatic abscesses, serratia pneumonia, acute on chronic pancreatitis, copd Patient speaking in full sentences: -discharged late last night, patient sister picking up rx(s) today -patient not sure if she's flushing drain correctly (drainage leaked on her clothing) Advised patient call phone number on discharge instructions /request RN to review drain care/flushing. Patient repeated back and verbalized understanding. 01/14/2022 - 01/20/2022 (6 days) [facility] Routing message to PSS Team to schedule follow up appt w/ PCP Patient requesting telephone appt [phone] (Home Phone) SUMMARY: Pt discharged from [facility] on 01/20/22 Admitted for: peripancreatic abscesses, serratia pneumonia, acute on chronic pancreatitis, copd Contact made with patient: Yes Hi my name is Elisabet Mann RN and I am calling from the [facility] on behalf of your PCP,Lizbeth Pool MD I understand you were recently in the hospital so I am calling to check in with you to ensure you are feeling well now that you're home. May I ask you a few questions related to your hospital stay and well-being? Yes Contact with patient post discharge, spoke to patient. Patient identified by name and . Do you feel your health is BETTER, WORSE, or the SAME since leaving the hospital? Same ACTION TAKEN: Patient indicated symptoms are better or same, no action required. Continue outreach. MEDICATIONS: Many patients have questions or concerns about their medications once they are home. Do you have any questions about taking your medications or which medication you should be on? No Do you need any medication refills at this time, including any of the medications you might take only when needed? No ACTION TAKEN: No action required For RNs or Pharmacy completing outreach ONLY, was a medication review completed? Yes SOCIAL: We would like to make sure you have what you need so that your basics needs are met - including your personal safety, food, housing and medications. Would you like to speak with a social work cdl team truck driver to help give you support for any of these needs? No It can be normal to feel anxious or down during a time like this. Would you like to talk to a mental health professional about how you have been feeling? No ACTION TAKEN: No action taken DISCHARGE INTRUCTIONS: Your discharge instructions / After Visit Summary (AVS) are important in guiding you through the recovery process. Do you have any questions related to your discharge instructions? No Do you have all the necessary equipment and supplies at home? Yes ACTION TAKEN: No action required I would like to help you schedule a hospital follow-up virtual or telephone visit with your PCP. This is a great way for you to connect with your provider to ensure you have safely transitioned home.If you are agreeable, I will send your request to a project scheduler who will contact and assist you with that appointment. This will give you an opportunity to ask any questions or address any concerns youmay have with your PCP. Inform the patient that if they have any questions or concerns prior to that appointment, to call their PCP's office right away. ACTION TAKEN: Patient desires an appointment - Routed to [facility] [[id number]] for schedulingtelehealth visit (telephonic, virtual visit, or Facetime) within 7 days of discharge with PCP care team. Indicate hospital follow-up appointment needed within 7 days in Provider/FYI box. End Outreach. Your doctor would like us to remind you of the recommendations regarding the coronavirus (Covid19) outbreak: Avoid public places as much as possible. Avoid close contact (within 6 feet) with others you don t live with, especially if they are sick. Stay home if you are sick. Wash your hands regularly for at least 20 seconds with soap and water. Wear a cloth mask in public places to help reduce community spread. Do not go to your Doctor s office unless instructed to do so. For any non- emergency symptoms, call your Doctor s office to get instructions on how to manage (we might recommend a telephone or virtualvisit). For emergency symptoms, proceed to Emergency Department as usual but inform them of cough and fever symptoms RENEE if present (or call on the way if possible). [facility] History of Past illness Narrative* Problem Noted Date Resolved Date Chest pain 01/19/2022 01/20/2022 COPD with exacerbation 01/17/2022 Hypokalemia 01/17/2022 01/18/2022 Pancreatitis 08/04/2020 01/18/2022 Chronic pain syndrome 06/27/2015 06/01/2016 Encounter for long-term (current) use of medicat ions 11/15/2014 06/01/2016 Lumbago 09/02/2014 06/01/2016 Cataract of both eyes 10/26/2013 06/01/2016 Overview: [facility] 10/22/2013 - Combined forms of age-related cataract of both eyes Eating disorder 02/16/2013 06/01/2016 Cervical strain 01/22/2013 06/01/2016 Cervical disc disease 01/22/2013 06/01/2016 Xerosis cutis 09/07/2012 06/01/2016 Arthritis of left knee 02/15/2012 7 Leg ulcer, left 02/15/2012 06/01/2016 Closed fracture of lateral malleolus 11/23/2011 06/01/2016 Contusion of toe 11/23/2011 06/01/2016 Capsulitis 11/06/2011 06/01/2016 Pruritus of forearm 09/07/2011 06/01/2016 Pruritus - disorder 09/07/2011 06/01/2016 Eczematous dermatitis 09/07/2011 06/01/2016 Lichenoid dermatitis 09/07/2011 06/01/2016 Excoriation 09/07/2011 06/01/2016 Nasal septal deviation 08/29/2011 7 Orbital mass 07/15/2011 06/01/2016 Obesity 05/09/2011 01/14/2014 Last Assessment & Plan: Pt disappointed in the amount of weight loss she has had over the past month while on the prescription Adipex 37.5mg daily. States she eats oatmeal in the morning every other day and at night has 1/3 of a bag of kettlecorn popcorn. States she does not eat anything else throughout the day. Ms Otis states since she was in her 20's she would control her wt loss by forcing herself to vomit after eating so she could eat more. Denies having an eating disorder and denies recent forced vomiting. Denies any current exercise routine and states she does not like to exercise. Her goal wt is 115. States she has a good appetite but limits her intake. She says she has a bad sweet tooth especially for chocolate. Cervical vertebral fracture 05/07/201105/16 Muscle spasms of head or neck 08/26/2009 Pain in joint, pelvic region and thigh 0 06/01/2016 Other chronic cystitis 12/21/2008 7 Hypertonicity of bladder 12/21/2008 017 PLANTAR Fasciitis 08/14/2006 06/01/2016 Sprain of neck 04/17/2006 06/01/2016 Rheumatoid arthritis 03/18/2006 06/01/2016 CHOLELITHIASIS SEE ALSO GALL BLADD WITHOUT CHOLECYSTITIS( Without obstruction) 01/11/2006 06/01/2016 HEPATITIS C CARRIER--treated with IFN and ribavirin and is in remission (as of 05/21) 05/29/2005 06/01/2016 Conductive hearing loss of combined types 200506/01/2016 Migraine variant 05/29/2005 06/01/2016 CHRONIC BRONCHITIS NOS--related to smoking 05/2906/01/2016 OSTEOARTHROS NOS-OTHER SITE- -OA vs RA treated with NSAIDs in past. 05/29/2005 06/01/2016 Overview: actonel 2009 start from hx in EPIC, fosamax 2011 started Cleft lip, unspecified 01/24/2005 7 documented as of this encounter (statuses as of 01/21/2022) [facility] History of Past illness Narrative* Problem Noted Date Resolved Date Chest pain 01/19/2022 01/20/2022 COPD with exacerbation 01/17/2022 Hypokalemia 01/17/2022 01/18/2022 Pancreatitis 08/04/2020 01/18/2022 Chronic pain syndrome 06/27/2015 06/01/2016 Encounter for long-term (current) use of medicat ions 11/15/2014 06/01/2016 Lumbago 09/02/2014 06/01/2016 Cataract of both eyes 10/26/2013 06/01/2016 Overview: [facility] 10/22/2013 - Combined forms of age-related cataract of both eyes Eating disorder 02/16/2013 06/01/2016 Cervical strain 01/22/2013 06/01/2016 Cervical disc disease 01/22/2013 06/01/2016 Xerosis cutis 09/07/2012 06/01/2016 Arthritis of left knee 02/15/2012 7 Leg ulcer, left 02/15/2012 06/01/2016 Closed fracture of lateral malleolus 11/23/2011 06/01/2016 Contusion of toe 11/23/2011 06/01/2016 Capsulitis 11/06/2011 06/01/2016 Pruritus of forearm 09/07/2011 06/01/2016 Pruritus - disorder 09/07/2011 06/01/2016 Eczematous dermatitis 09/07/2011 06/01/2016 Lichenoid dermatitis 09/07/2011 06/01/2016 Excoriation 09/07/2011 06/01/2016 Nasal septal deviation 08/29/2011 7 Orbital mass 07/15/2011 06/01/2016 Obesity 05/09/2011 01/14/2014 Last Assessment & Plan: Pt disappointed in the amount of weight loss she has had over the past month while on the prescription Adipex 37.5mg daily. States she eats oatmeal in the morning every other day and at night has 1/3 of a bag of kettlecorn popcorn. States she does not eat anything else throughout the day. Ms Berg states since she was in her 20's she would control her wt loss by forcing herself to vomit after eating so she could eat more. Denies having an eating disorder and denies recent forced vomiting. Denies any current exercise routine and states she does not like to exercise. Her goal wt is 115. States she has a good appetite but limits her intake. She says she has a bad sweet tooth especially for chocolate. Cervical vertebral fracture 05/07/201105/16 Muscle spasms of head or neck 08/26/2009 Pain in joint, pelvic region and thigh 0 06/01/2016 Other chronic cystitis 12/21/2008 7 Hypertonicity of bladder 12/21/2008 017 PLANTAR Fasciitis 08/14/2006 06/01/2016 Sprain of neck 04/17/2006 06/01/2016 Rheumatoid arthritis 03/18/2006 06/01/2016 CHOLELITHIASIS SEE ALSO GALL BLADD WITHOUT CHOLECYSTITIS( Without obstruction) 01/11/2006 06/01/2016 HEPATITIS C CARRIER--treated with IFN and ribavirin and is in remission (as of 05/21) 05/29/2005 06/01/2016 Conductive hearing loss of combined types 200506/01/2016 Migraine variant 05/29/2005 06/01/2016 CHRONIC BRONCHITIS NOS--related to smoking 05/2906/01/2016 OSTEOARTHROS NOS-OTHER SITE- -OA vs RA treated with NSAIDs in past. 05/29/2005 06/01/2016 Overview: actonel 2010 start from hx in EPIC, fosamax 2011 started Cleft lip, unspecified 01/24/2005 7 documented as of this encounter (statuses as of 01/23/2022) [facility] History of Past illness Narrative* Problem Noted Date Resolved Date Chest pain 01/19/2022 01/20/2022 COPD with exacerbation 01/17/2022 Hypokalemia 01/17/2022 01/18/2022 Pancreatitis 08/04/2020 01/18/2022 Chronic pain syndrome 06/27/2015 06/01/2016 Encounter for long-term (current) use of medicat ions 11/15/2014 06/01/2016 Lumbago 09/02/2014 06/01/2016 Cataract of both eyes 10/26/2013 06/01/2016 Overview: [facility] 10/22/2013 - Combined forms of age-related cataract of both eyes Eating disorder 02/16/2013 06/01/2016 Cervical strain 01/22/2013 06/01/2016 Cervical disc disease 01/22/2013 06/01/2016 Xerosis cutis 09/07/2012 06/01/2016 Arthritis of left knee 02/15/2012 7 Leg ulcer, left 02/15/2012 06/01/2016 Closed fracture of lateral malleolus 11/23/2011 06/01/2016 Contusion of toe 11/23/2011 06/01/2016 Capsulitis 11/06/2011 06/01/2016 Pruritus of forearm 09/07/2011 06/01/2016 Pruritus - disorder 09/07/2011 06/01/2016 Eczematous dermatitis 09/07/2011 06/01/2016 Lichenoid dermatitis 09/07/2011 06/01/2016 Excoriation 09/07/2011 06/01/2016 Nasal septal deviation 08/29/2011 7 Orbital mass 07/15/2011 06/01/2016 Obesity 05/09/2011 01/14/2014 Last Assessment & Plan: Pt disappointed in the amount of weight loss she has had over the past month while on the prescription Adipex 37.5mg daily. States she eats oatmeal in the morning every other day and at night has 1/3 of a bag of kettlecorn popcorn. States she does not eat anything else throughout the day. Ms Berg states since she was in her 20's she would control her wt loss by forcing herself to vomit after eating so she could eat more. Denies having an eating disorder and denies recent forced vomiting. Denies any current exercise routine and states she does not like to exercise. Her goal wt is 115. States she has a good appetite but limits her intake. She says she has a bad sweet tooth especially for chocolate. Cervical vertebral fracture 05/07/201105/16 Muscle spasms of head or neck 08/26/2009 Pain in joint, pelvic region and thigh 0 06/01/2016 Other chronic cystitis 12/21/2008 7 Hypertonicity of bladder 12/21/2008 017 PLANTAR Fasciitis 08/14/2006 06/01/2016 Sprain of neck 04/17/2006 06/01/2016 Rheumatoid arthritis 03/18/2006 06/01/2016 CHOLELITHIASIS SEE ALSO GALL BLADD WITHOUT CHOLECYSTITIS( Without obstruction) 01/11/2006 06/01/2016 HEPATITIS C CARRIER--treated with IFN and ribavirin and is in remission (as of 05/21) 05/29/2005 06/01/2016 Conductive hearing loss of combined types 200506/01/2016 Migraine variant 05/29/2005 06/01/2016 CHRONIC BRONCHITIS NOS--related to smoking 05/2906/01/2016 OSTEOARTHROS NOS-OTHER SITE- -OA vs RA treated with NSAIDs in past. 05/29/2005 06/01/2016 Overview: actonel 2009 start from hx in EPIC, fosamax 2011 started Cleft lip, unspecified 01/24/2005 7 documented as of this encounter (statuses as of 02/05/2022) [facility] History of Past illness Narrative* Problem Noted Date Resolved Date Chest pain 01/19/2022 01/20/2022 COPD with exacerbation 01/17/2022 Hypokalemia 01/17/2022 01/18/2022 Pancreatitis 08/04/2020 01/18/2022 Chronic pain syndrome 06/27/2015 06/01/2016 Encounter for long-term (current) use of medicat ions 11/15/2014 06/01/2016 Lumbago 09/02/2014 06/01/2016 Cataract of both eyes 10/26/2013 06/01/2016 Overview: [facility] 10/22/2013 - Combined forms of age-related cataract of both eyes Eating disorder 02/16/2013 06/01/2016 Cervical strain 01/22/2013 06/01/2016 Cervical disc disease 01/22/2013 06/01/2016 Xerosis cutis 09/07/2012 06/01/2016 Arthritis of left knee 02/15/2012 7 Leg ulcer, left 02/15/2012 06/01/2016 Closed fracture of lateral malleolus 11/23/2011 06/01/2016 Contusion of toe 11/23/2011 06/01/2016 Capsulitis 11/06/2011 06/01/2016 Pruritus of forearm 09/07/2011 06/01/2016 Pruritus - disorder 09/07/2011 06/01/2016 Eczematous dermatitis 09/07/2011 06/01/2016 Lichenoid dermatitis 09/07/2011 06/01/2016 Excoriation 09/07/2011 06/01/2016 Nasal septal deviation 08/29/2011 7 Orbital mass 07/15/2011 06/01/2016 Obesity 05/09/2011 01/14/2014 Last Assessment & Plan: Pt disappointed in the amount of weight loss she has had over the past month while on the prescription Adipex 37.5mg daily. States she eats oatmeal in the morning every other day and at night has 1/3 of a bag of kettlecorn popcorn. States she does not eat anything else throughout the day. Ms Berg states since she was in her 20's she would control her wt loss by forcing herself to vomit after eating so she could eat more. Denies having an eating disorder and denies recent forced vomiting. Denies any current exercise routine and states she does not like to exercise. Her goal wt is 115. States she has a good appetite but limits her intake. She says she has a bad sweet tooth especially for chocolate. Cervical vertebral fracture 05/07/201105/16 Muscle spasms of head or neck 08/26/2009 Pain in joint, pelvic region and thigh 0 06/01/2016 Other chronic cystitis 12/21/2008 7 Hypertonicity of bladder 12/21/2008 017 PLANTAR Fasciitis 08/14/2006 06/01/2016 Sprain of neck 04/17/2006 06/01/2016 Rheumatoid arthritis 03/18/2006 06/01/2016 CHOLELITHIASIS SEE ALSO GALL BLADD WITHOUT CHOLECYSTITIS( Without obstruction) 01/11/2006 06/01/2016 HEPATITIS C CARRIER--treated with IFN and ribavirin and is in remission (as of 05/21) 05/29/2005 06/01/2016 Conductive hearing loss of combined types 200506/01/2016 Migraine variant 05/29/2005 06/01/2016 CHRONIC BRONCHITIS NOS--related to smoking 05/2906/01/2016 OSTEOARTHROS NOS-OTHER SITE- -OA vs RA treated with NSAIDs in past. 05/29/2005 06/01/2016 Overview: actonel 2010 start from hx in EPIC, fosamax 2011 started Cleft lip, unspecified 01/24/2005 7 documented as of this encounter (statuses as of 02/06/2022) [facility] History of Past illness Narrative* Problem Noted Date Resolved Date Chest pain 01/19/2022 01/20/2022 COPD with exacerbation 01/17/2022 Hypokalemia 01/17/2022 01/18/2022 Pancreatitis 08/04/2020 01/18/2022 Chronic pain syndrome 06/27/2015 06/01/2016 Encounter for long-term (current) use of medicat ions 11/15/2014 06/01/2016 Lumbago 09/02/2014 06/01/2016 Cataract of both eyes 10/26/2013 06/01/2016 Overview: [facility] 10/22/2013 - Combined forms of age-related cataract of both eyes Eating disorder 02/16/2013 06/01/2016 Cervical strain 01/22/2013 06/01/2016 Cervical disc disease 01/22/2013 06/01/2016 Xerosis cutis 09/07/2012 06/01/2016 Arthritis of left knee 02/15/2012 7 Leg ulcer, left 02/15/2012 06/01/2016 Closed fracture of lateral malleolus 11/23/2011 06/01/2016 Contusion of toe 11/23/2011 06/01/2016 Capsulitis 11/06/2011 06/01/2016 Pruritus of forearm 09/07/2011 06/01/2016 Pruritus - disorder 09/07/2011 06/01/2016 Eczematous dermatitis 09/07/2011 06/01/2016 Lichenoid dermatitis 09/07/2011 06/01/2016 Excoriation 09/07/2011 06/01/2016 Nasal septal deviation 08/29/2011 7 Orbital mass 07/15/2011 06/01/2016 Obesity 05/09/2011 01/14/2014 Last Assessment & Plan: Pt disappointed in the amount of weight loss she has had over the past month while on the prescription Adipex 37.5mg daily. States she eats oatmeal in the morning every other day and at night has 1/3 of a bag of kettlecorn popcorn. States she does not eat anything else throughout the day. Ms Berg states since she was in her 20's she would control her wt loss by forcing herself to vomit after eating so she could eat more. Denies having an eating disorder and denies recent forced vomiting. Denies any current exercise routine and states she does not like to exercise. Her goal wt is 115. States she has a good appetite but limits her intake. She says she has a bad sweet tooth especially for chocolate. Cervical vertebral fracture 05/07/201105/16 Muscle spasms of head or neck 08/26/2009 Pain in joint, pelvic region and thigh 0 06/01/2016 Other chronic cystitis 12/21/2008 7 Hypertonicity of bladder 12/21/2008 017 PLANTAR Fasciitis 08/14/2006 06/01/2016 Sprain of neck 04/17/2006 06/01/2016 Rheumatoid arthritis 03/18/2006 06/01/2016 CHOLELITHIASIS SEE ALSO GALL BLADD WITHOUT CHOLECYSTITIS( Without obstruction) 01/11/2006 06/01/2016 HEPATITIS C CARRIER--treated with IFN and ribavirin and is in remission (as of 05/21) 05/29/2005 06/01/2016 Conductive hearing loss of combined types 200506/01/2016 Migraine variant 05/29/2005 06/01/2016 CHRONIC BRONCHITIS NOS--related to smoking 05/2906/01/2016 OSTEOARTHROS NOS-OTHER SITE- -OA vs RA treated with NSAIDs in past. 05/29/2005 06/01/2016 Overview: actonel 2009 start from hx in EPIC, fosamax 2011 started Cleft lip, unspecified 01/24/2005 7 documented as of this encounter (statuses as of 02/07/2022) [facility] History of Past illness Narrative* Problem Noted Date Resolved Date Chest pain 01/19/2022 01/20/2022 COPD with exacerbation 01/17/2022 Hypokalemia 01/17/2022 01/18/2022 Pancreatitis 08/04/2020 01/18/2022 Chronic pain syndrome 06/27/2015 06/01/2016 Encounter for long-term (current) use of medicat ions 11/15/2014 06/01/2016 Lumbago 09/02/2014 06/01/2016 Cataract of both eyes 10/26/2013 06/01/2016 Overview: [facility] 10/22/2013 - Combined forms of age-related cataract of both eyes Eating disorder 02/16/2013 06/01/2016 Cervical strain 01/22/2013 06/01/2016 Cervical disc disease 01/22/2013 06/01/2016 Xerosis cutis 09/07/2012 06/01/2016 Arthritis of left knee 02/15/2012 7 Leg ulcer, left 02/15/2012 06/01/2016 Closed fracture of lateral malleolus 11/23/2011 06/01/2016 Contusion of toe 11/23/2011 06/01/2016 Capsulitis 11/06/2011 06/01/2016 Pruritus of forearm 09/07/2011 06/01/2016 Pruritus - disorder 09/07/2011 06/01/2016 Eczematous dermatitis 09/07/2011 06/01/2016 Lichenoid dermatitis 09/07/2011 06/01/2016 Excoriation 09/07/2011 06/01/2016 Nasal septal deviation 08/29/2011 7 Orbital mass 07/15/2011 06/01/2016 Obesity 05/09/2011 01/14/2014 Last Assessment & Plan: Pt disappointed in the amount of weight loss she has had over the past month while on the prescription Adipex 37.5mg daily. States she eats oatmeal in the morning every other day and at night has 1/3 of a bag of kettlecorn popcorn. States she does not eat anything else throughout the day. Ms Berg states since she was in her 20's she would control her wt loss by forcing herself to vomit after eating so she could eat more. Denies having an eating disorder and denies recent forced vomiting. Denies any current exercise routine and states she does not like to exercise. Her goal wt is 115. States she has a good appetite but limits her intake. She says she has a bad sweet tooth especially for chocolate. Cervical vertebral fracture 05/07/201105/16 Muscle spasms of head or neck 08/26/2009 Pain in joint, pelvic region and thigh 0 06/01/2016 Other chronic cystitis 12/21/2008 7 Hypertonicity of bladder 12/21/2008 017 PLANTAR Fasciitis 08/14/2006 06/01/2016 Sprain of neck 04/17/2006 06/01/2016 Rheumatoid arthritis 03/18/2006 06/01/2016 CHOLELITHIASIS SEE ALSO GALL BLADD WITHOUT CHOLECYSTITIS( Without obstruction) 01/11/2006 06/01/2016 HEPATITIS C CARRIER--treated with IFN and ribavirin and is in remission (as of 05/21) 05/29/2005 06/01/2016 Conductive hearing loss of combined types 200506/01/2016 Migraine variant 05/29/2005 06/01/2016 CHRONIC BRONCHITIS NOS--related to smoking 05/2906/01/2016 OSTEOARTHROS NOS-OTHER SITE- -OA vs RA treated with NSAIDs in past. 05/29/2005 06/01/2016 Overview: actonel 2009 start from hx in EPIC, fosamax 2011 started Cleft lip, unspecified 01/24/2005 7 documented as of this encounter (statuses as of 02/09/2022) [facility] History of Past illness Narrative* Problem Noted Date Resolved Date Chest pain 01/19/2022 01/20/2022 COPD with exacerbation 01/17/2022 Hypokalemia 01/17/2022 01/18/2022 Pancreatitis 08/04/2020 01/18/2022 Chronic pain syndrome 06/27/2015 06/01/2016 Encounter for long-term (current) use of medicat ions 11/15/2014 06/01/2016 Lumbago 09/02/2014 06/01/2016 Cataract of both eyes 10/26/2013 06/01/2016 Overview: [facility] 10/22/2013 - Combined forms of age-related cataract of both eyes Eating disorder 02/16/2013 06/01/2016 Cervical strain 01/22/2013 06/01/2016 Cervical disc disease 01/22/2013 06/01/2016 Xerosis cutis 09/07/2012 06/01/2016 Arthritis of left knee 02/15/2012 7 Leg ulcer, left 02/15/2012 06/01/2016 Closed fracture of lateral malleolus 11/23/2011 06/01/2016 Contusion of toe 11/23/2011 06/01/2016 Capsulitis 11/06/2011 06/01/2016 Pruritus of forearm 09/07/2011 06/01/2016 Pruritus - disorder 09/07/2011 06/01/2016 Eczematous dermatitis 09/07/2011 06/01/2016 Lichenoid dermatitis 09/07/2011 06/01/2016 Excoriation 09/07/2011 06/01/2016 Nasal septal deviation 08/29/2011 7 Orbital mass 07/15/2011 06/01/2016 Obesity 05/09/2011 01/14/2014 Last Assessment & Plan: Pt disappointed in the amount of weight loss she has had over the past month while on the prescription Adipex 37.5mg daily. States she eats oatmeal in the morning every other day and at night has 1/3 of a bag of kettlecorn popcorn. States she does not eat anything else throughout the day. Ms Berg states since she was in her 20's she would control her wt loss by forcing herself to vomit after eating so she could eat more. Denies having an eating disorder and denies recent forced vomiting. Denies any current exercise routine and states she does not like to exercise. Her goal wt is 115. States she has a good appetite but limits her intake. She says she has a bad sweet tooth especially for chocolate. Cervical vertebral fracture 05/07/201105/16 Muscle spasms of head or neck 08/26/2009 Pain in joint, pelvic region and thigh 0 06/01/2016 Other chronic cystitis 12/21/2008 7 Hypertonicity of bladder 12/21/2008 017 PLANTAR Fasciitis 08/14/2006 06/01/2016 Sprain of neck 04/17/2006 06/01/2016 Rheumatoid arthritis 03/18/2006 06/01/2016 CHOLELITHIASIS SEE ALSO GALL BLADD WITHOUT CHOLECYSTITIS( Without obstruction) 01/11/2006 06/01/2016 HEPATITIS C CARRIER--treated with IFN and ribavirin and is in remission (as of 05/21) 05/29/2005 06/01/2016 Conductive hearing loss of combined types 200506/01/2016 Migraine variant 05/29/2005 06/01/2016 CHRONIC BRONCHITIS NOS--related to smoking 05/2906/01/2016 OSTEOARTHROS NOS-OTHER SITE- -OA vs RA treated with NSAIDs in past. 05/29/2005 06/01/2016 Overview: actonel 2010 start from hx in EPIC, fosamax 2011 started Cleft lip, unspecified 01/24/2005 7 documented as of this encounter (statuses as of 02/10/2022) [facility] History of Past illness Narrative* Problem Noted Date Resolved Date Chest pain 01/19/2022 01/20/2022 COPD with exacerbation 01/17/2022 Hypokalemia 01/17/2022 01/18/2022 Pancreatitis 08/04/2020 01/18/2022 Chronic pain syndrome 06/27/2015 06/01/2016 Encounter for long-term (current) use of medicat ions 11/15/2014 06/01/2016 Lumbago 09/02/2014 06/01/2016 Cataract of both eyes 10/26/2013 06/01/2016 Overview: [facility] 10/22/2013 - Combined forms of age-related cataract of both eyes Eating disorder 02/16/2013 06/01/2016 Cervical strain 01/22/2013 06/01/2016 Cervical disc disease 01/22/2013 06/01/2016 Xerosis cutis 09/07/2012 06/01/2016 Arthritis of left knee 02/15/2012 7 Leg ulcer, left 02/15/2012 06/01/2016 Closed fracture of lateral malleolus 11/23/2011 06/01/2016 Contusion of toe 11/23/2011 06/01/2016 Capsulitis 11/06/2011 06/01/2016 Pruritus of forearm 09/07/2011 06/01/2016 Pruritus - disorder 09/07/2011 06/01/2016 Eczematous dermatitis 09/07/2011 06/01/2016 Lichenoid dermatitis 09/07/2011 06/01/2016 Excoriation 09/07/2011 06/01/2016 Nasal septal deviation 08/29/2011 7 Orbital mass 07/15/2011 06/01/2016 Obesity 05/09/2011 01/14/2014 Last Assessment & Plan: Pt disappointed in the amount of weight loss she has had over the past month while on the prescription Adipex 37.5mg daily. States she eats oatmeal in the morning every other day and at night has 1/3 of a bag of kettlecorn popcorn. States she does not eat anything else throughout the day. Ms Berg states since she was in her 20's she would control her wt loss by forcing herself to vomit after eating so she could eat more. Denies having an eating disorder and denies recent forced vomiting. Denies any current exercise routine and states she does not like to exercise. Her goal wt is 115. States she has a good appetite but limits her intake. She says she has a bad sweet tooth especially for chocolate. Cervical vertebral fracture 05/07/201105/16 Muscle spasms of head or neck 08/26/2009 Pain in joint, pelvic region and thigh 0 06/01/2016 Other chronic cystitis 12/21/2008 7 Hypertonicity of bladder 12/21/2008 017 PLANTAR Fasciitis 08/14/2006 06/01/2016 Sprain of neck 04/17/2006 06/01/2016 Rheumatoid arthritis 03/18/2006 06/01/2016 CHOLELITHIASIS SEE ALSO GALL BLADD WITHOUT CHOLECYSTITIS( Without obstruction) 01/11/2006 06/01/2016 HEPATITIS C CARRIER--treated with IFN and ribavirin and is in remission (as of 05/21) 05/29/2005 06/01/2016 Conductive hearing loss of combined types 200506/01/2016 Migraine variant 05/29/2005 06/01/2016 CHRONIC BRONCHITIS NOS--related to smoking 05/2906/01/2016 OSTEOARTHROS NOS-OTHER SITE- -OA vs RA treated with NSAIDs in past. 05/29/2005 06/01/2016 Overview: actonel 2009 start from hx in EPIC, fosamax 2011 started Cleft lip, unspecified 01/24/2005 7 documented as of this encounter (statuses as of 02/12/2022) [facility]10-07-2022 History of Past illness Narrative* Problem Noted Date Resolved Date Chest pain 01/19/2022 01/20/2022 COPD with exacerbation 01/17/2022 Hypokalemia 01/17/2022 01/18/2022 Pancreatitis 08/04/2020 01/18/2022 Chronic pain syndrome 06/27/2015 06/01/2016 Encounter for long-term (current) use of medicat ions 11/15/2014 06/01/2016 Lumbago 09/02/2014 06/01/2016 Cataract of both eyes 10/26/2013 06/01/2016 Overview: [facility] 10/22/2013 - Combined forms of age-related cataract of both eyes Eating disorder 02/16/2013 06/01/2016 Cervical strain 01/22/2013 06/01/2016 Cervical disc disease 01/22/2013 06/01/2016 Xerosis cutis 09/07/2012 06/01/2016 Arthritis of left knee 02/15/2012 7 Leg ulcer, left 02/15/2012 06/01/2016 Closed fracture of lateral malleolus 11/23/2011 06/01/2016 Contusion of toe 11/23/2011 06/01/2016 Capsulitis 11/06/2011 06/01/2016 Pruritus of forearm 09/07/2011 06/01/2016 Pruritus - disorder 09/07/2011 06/01/2016 Eczematous dermatitis 09/07/2011 06/01/2016 Lichenoid dermatitis 09/07/2011 06/01/2016 Excoriation 09/07/2011 06/01/2016 Nasal septal deviation 08/29/2011 7 Orbital mass 07/15/2011 06/01/2016 Obesity 05/09/2011 01/14/2014 Last Assessment & Plan: Pt disappointed in the amount of weight loss she has had over the past month while on the prescription Adipex 37.5mg daily. States she eats oatmeal in the morning every other day and at night has 1/3 of a bag of kettlecorn popcorn. States she does not eat anything else throughout the day. Ms Berg states since she was in her 20's she would control her wt loss by forcing herself to vomit after eating so she could eat more. Denies having an eating disorder and denies recent forced vomiting. Denies any current exercise routine and states she does not like to exercise. Her goal wt is 115. States she has a good appetite but limits her intake. She says she has a bad sweet tooth especially for chocolate. Cervical vertebral fracture 05/07/201105/16 Muscle spasms of head or neck 08/26/2009 Pain in joint, pelvic region and thigh 0 06/01/2016 Other chronic cystitis 12/21/2008 7 Hypertonicity of bladder 12/21/2008 017 PLANTAR Fasciitis 08/14/2006 06/01/2016 Sprain of neck 04/17/2006 06/01/2016 Rheumatoid arthritis 03/18/2006 06/01/2016 CHOLELITHIASIS SEE ALSO GALL BLADD WITHOUT CHOLECYSTITIS( Without obstruction) 01/11/2006 06/01/2016 HEPATITIS C CARRIER--treated with IFN and ribavirin and is in remission (as of 05/21) 05/29/2005 06/01/2016 Conductive hearing loss of combined types 200506/01/2016 Migraine variant 05/29/2005 06/01/2016 CHRONIC BRONCHITIS NOS--related to smoking 05/2906/01/2016 OSTEOARTHROS NOS-OTHER SITE- -OA vs RA treated with NSAIDs in past. 05/29/2005 06/01/2016 Overview: actonel 2010 start from hx in EPIC, fosamax 2011 started Cleft lip, unspecified 01/24/2005 7 documented as of this encounter (statuses as of 02/12/2022) [facility]10-07-2022 History of Past illness Narrative* Problem Noted Date Resolved Date Chest pain 01/19/2022 01/20/2022 COPD with exacerbation 01/17/2022 Hypokalemia 01/17/2022 01/18/2022 Pancreatitis 08/04/2020 01/18/2022 Chronic pain syndrome 06/27/2015 06/01/2016 Encounter for long-term (current) use of medicat ions 11/15/2014 06/01/2016 Lumbago 09/02/2014 06/01/2016 Cataract of both eyes 10/26/2013 06/01/2016 Overview: [facility] 10/22/2013 - Combined forms of age-related cataract of both eyes Eating disorder 02/16/2013 06/01/2016 Cervical strain 01/22/2013 06/01/2016 Cervical disc disease 01/22/2013 06/01/2016 Xerosis cutis 09/07/2012 06/01/2016 Arthritis of left knee 02/15/2012 7 Leg ulcer, left 02/15/2012 06/01/2016 Closed fracture of lateral malleolus 11/23/2011 06/01/2016 Contusion of toe 11/23/2011 06/01/2016 Capsulitis 11/06/2011 06/01/2016 Pruritus of forearm 09/07/2011 06/01/2016 Pruritus - disorder 09/07/2011 06/01/2016 Eczematous dermatitis 09/07/2011 06/01/2016 Lichenoid dermatitis 09/07/2011 06/01/2016 Excoriation 09/07/2011 06/01/2016 Nasal septal deviation 08/29/2011 7 Orbital mass 07/15/2011 06/01/2016 Obesity 05/09/2011 01/14/2014 Last Assessment & Plan: Pt disappointed in the amount of weight loss she has had over the past month while on the prescription Adipex 37.5mg daily. States she eats oatmeal in the morning every other day and at night has 1/3 of a bag of kettlecorn popcorn. States she does not eat anything else throughout the day. Ms Berg states since she was in her 20's she would control her wt loss by forcing herself to vomit after eating so she could eat more. Denies having an eating disorder and denies recent forced vomiting. Denies any current exercise routine and states she does not like to exercise. Her goal wt is 115. States she has a good appetite but limits her intake. She says she has a bad sweet tooth especially for chocolate. Cervical vertebral fracture 05/07/201105/16 Muscle spasms of head or neck 08/26/2009 Pain in joint, pelvic region and thigh 0 06/01/2016 Other chronic cystitis 12/21/2008 7 Hypertonicity of bladder 12/21/2008 017 PLANTAR Fasciitis 08/14/2006 06/01/2016 Sprain of neck 04/17/2006 06/01/2016 Rheumatoid arthritis 03/18/2006 06/01/2016 CHOLELITHIASIS SEE ALSO GALL BLADD WITHOUT CHOLECYSTITIS( Without obstruction) 01/11/2006 06/01/2016 HEPATITIS C CARRIER--treated with IFN and ribavirin and is in remission (as of 05/21) 05/29/2005 06/01/2016 Conductive hearing loss of combined types 200506/01/2016 Migraine variant 05/29/2005 06/01/2016 CHRONIC BRONCHITIS NOS--related to smoking 05/2906/01/2016 OSTEOARTHROS NOS-OTHER SITE- -OA vs RA treated with NSAIDs in past. 05/29/2005 06/01/2016 Overview: actonel 2009 start from hx in EPIC, fosamax 2011 started Cleft lip, unspecified 01/24/2005 7 documented as of this encounter (statuses as of 02/12/2022) [facility]10-07-2022 History of Past illness Narrative* Problem Noted Date Resolved Date Chest pain 01/19/2022 01/20/2022 COPD with exacerbation 01/17/2022 Hypokalemia 01/17/2022 01/18/2022 Pancreatitis 08/04/2020 01/18/2022 Chronic pain syndrome 06/27/2015 06/01/2016 Encounter for long-term (current) use of medicat ions 11/15/2014 06/01/2016 Lumbago 09/02/2014 06/01/2016 Cataract of both eyes 10/26/2013 06/01/2016 Overview: [facility] 10/22/2013 - Combined forms of age-related cataract of both eyes Eating disorder 02/16/2013 06/01/2016 Cervical strain 01/22/2013 06/01/2016 Cervical disc disease 01/22/2013 06/01/2016 Xerosis cutis 09/07/2012 06/01/2016 Arthritis of left knee 02/15/2012 7 Leg ulcer, left 02/15/2012 06/01/2016 Closed fracture of lateral malleolus 11/23/2011 06/01/2016 Contusion of toe 11/23/2011 06/01/2016 Capsulitis 11/06/2011 06/01/2016 Pruritus of forearm 09/07/2011 06/01/2016 Pruritus - disorder 09/07/2011 06/01/2016 Eczematous dermatitis 09/07/2011 06/01/2016 Lichenoid dermatitis 09/07/2011 06/01/2016 Excoriation 09/07/2011 06/01/2016 Nasal septal deviation 08/29/2011 7 Orbital mass 07/15/2011 06/01/2016 Obesity 05/09/2011 01/14/2014 Last Assessment & Plan: Pt disappointed in the amount of weight loss she has had over the past month while on the prescription Adipex 37.5mg daily. States she eats oatmeal in the morning every other day and at night has 1/3 of a bag of kettlecorn popcorn. States she does not eat anything else throughout the day. Ms Berg states since she was in her 20's she would control her wt loss by forcing herself to vomit after eating so she could eat more. Denies having an eating disorder and denies recent forced vomiting. Denies any current exercise routine and states she does not like to exercise. Her goal wt is 115. States she has a good appetite but limits her intake. She says she has a bad sweet tooth especially for chocolate. Cervical vertebral fracture 05/07/201105/16 Muscle spasms of head or neck 08/26/2009 Pain in joint, pelvic region and thigh 0 06/01/2016 Other chronic cystitis 12/21/2008 7 Hypertonicity of bladder 12/21/2008 017 PLANTAR Fasciitis 08/14/2006 06/01/2016 Sprain of neck 04/17/2006 06/01/2016 Rheumatoid arthritis 03/18/2006 06/01/2016 CHOLELITHIASIS SEE ALSO GALL BLADD WITHOUT CHOLECYSTITIS( Without obstruction) 01/11/2006 06/01/2016 HEPATITIS C CARRIER--treated with IFN and ribavirin and is in remission (as of 05/21) 05/29/2005 06/01/2016 Conductive hearing loss of combined types 200506/01/2016 Migraine variant 05/29/2005 06/01/2016 CHRONIC BRONCHITIS NOS--related to smoking 05/2906/01/2016 OSTEOARTHROS NOS-OTHER SITE- -OA vs RA treated with NSAIDs in past. 05/29/2005 06/01/2016 Overview: actonel 2009 start from hx in EPIC, fosamax 2011 started Cleft lip, unspecified 01/24/2005 7 documented as of this encounter (statuses as of 02/13/2022) [facility]10-07-2022 History of Past illness Narrative* Problem Noted Date Resolved Date Chest pain 01/19/2022 01/20/2022 COPD with exacerbation 01/17/2022 Hypokalemia 01/17/2022 01/18/2022 Pancreatitis 08/04/2020 01/18/2022 Chronic pain syndrome 06/27/2015 06/01/2016 Encounter for long-term (current) use of medicat ions 11/15/2014 06/01/2016 Lumbago 09/02/2014 06/01/2016 Cataract of both eyes 10/26/2013 06/01/2016 Overview: [facility] 10/22/2013 - Combined forms of age-related cataract of both eyes Eating disorder 02/16/2013 06/01/2016 Cervical strain 01/22/2013 06/01/2016 Cervical disc disease 01/22/2013 06/01/2016 Xerosis cutis 09/07/2012 06/01/2016 Arthritis of left knee 02/15/2012 7 Leg ulcer, left 02/15/2012 06/01/2016 Closed fracture of lateral malleolus 11/23/2011 06/01/2016 Contusion of toe 11/23/2011 06/01/2016 Capsulitis 11/06/2011 06/01/2016 Pruritus of forearm 09/07/2011 06/01/2016 Pruritus - disorder 09/07/2011 06/01/2016 Eczematous dermatitis 09/07/2011 06/01/2016 Lichenoid dermatitis 09/07/2011 06/01/2016 Excoriation 09/07/2011 06/01/2016 Nasal septal deviation 08/29/2011 7 Orbital mass 07/15/2011 06/01/2016 Obesity 05/09/2011 01/14/2014 Last Assessment & Plan: Pt disappointed in the amount of weight loss she has had over the past month while on the prescription Adipex 37.5mg daily. States she eats oatmeal in the morning every other day and at night has 1/3 of a bag of kettlecorn popcorn. States she does not eat anything else throughout the day. Ms Berg states since she was in her 20's she would control her wt loss by forcing herself to vomit after eating so she could eat more. Denies having an eating disorder and denies recent forced vomiting. Denies any current exercise routine and states she does not like to exercise. Her goal wt is 115. States she has a good appetite but limits her intake. She says she has a bad sweet tooth especially for chocolate. Cervical vertebral fracture 05/07/201105/16 Muscle spasms of head or neck 08/26/2009 Pain in joint, pelvic region and thigh 0 06/01/2016 Other chronic cystitis 12/21/2008 7 Hypertonicity of bladder 12/21/2008 017 PLANTAR Fasciitis 08/14/2006 06/01/2016 Sprain of neck 04/17/2006 06/01/2016 Rheumatoid arthritis 03/18/2006 06/01/2016 CHOLELITHIASIS SEE ALSO GALL BLADD WITHOUT CHOLECYSTITIS( Without obstruction) 01/11/2006 06/01/2016 HEPATITIS C CARRIER--treated with IFN and ribavirin and is in remission (as of 05/21) 05/29/2005 06/01/2016 Conductive hearing loss of combined types 200506/01/2016 Migraine variant 05/29/2005 06/01/2016 CHRONIC BRONCHITIS NOS--related to smoking 05/2906/01/2016 OSTEOARTHROS NOS-OTHER SITE- -OA vs RA treated with NSAIDs in past. 05/29/2005 06/01/2016 Overview: actonel 2009 start from hx in EPIC, fosamax 2011 started Cleft lip, unspecified 01/24/2005 7 documented as of this encounter (statuses as of 02/13/2022) [facility]10-07-2022 History of Past illness Narrative* Problem Noted Date Resolved Date Chest pain 01/19/2022 01/20/2022 COPD with exacerbation 01/17/2022 Hypokalemia 01/17/2022 01/18/2022 Pancreatitis 08/04/2020 01/18/2022 Chronic pain syndrome 06/27/2015 06/01/2016 Encounter for long-term (current) use of medicat ions 11/15/2014 06/01/2016 Lumbago 09/02/2014 06/01/2016 Cataract of both eyes 10/26/2013 06/01/2016 Overview: [facility] 10/22/2013 - Combined forms of age-related cataract of both eyes Eating disorder 02/16/2013 06/01/2016 Cervical strain 01/22/2013 06/01/2016 Cervical disc disease 01/22/2013 06/01/2016 Xerosis cutis 09/07/2012 06/01/2016 Arthritis of left knee 02/15/2012 7 Leg ulcer, left 02/15/2012 06/01/2016 Closed fracture of lateral malleolus 11/23/2011 06/01/2016 Contusion of toe 11/23/2011 06/01/2016 Capsulitis 11/06/2011 06/01/2016 Pruritus of forearm 09/07/2011 06/01/2016 Pruritus - disorder 09/07/2011 06/01/2016 Eczematous dermatitis 09/07/2011 06/01/2016 Lichenoid dermatitis 09/07/2011 06/01/2016 Excoriation 09/07/2011 06/01/2016 Nasal septal deviation 08/29/2011 7 Orbital mass 07/15/2011 06/01/2016 Obesity 05/09/2011 01/14/2014 Last Assessment & Plan: Pt disappointed in the amount of weight loss she has had over the past month while on the prescription Adipex 37.5mg daily. States she eats oatmeal in the morning every other day and at night has 1/3 of a bag of kettlecorn popcorn. States she does not eat anything else throughout the day. Ms Berg states since she was in her 20's she would control her wt loss by forcing herself to vomit after eating so she could eat more. Denies having an eating disorder and denies recent forced vomiting. Denies any current exercise routine and states she does not like to exercise. Her goal wt is 115. States she has a good appetite but limits her intake. She says she has a bad sweet tooth especially for chocolate. Cervical vertebral fracture 05/07/201105/16 Muscle spasms of head or neck 08/26/2009 Pain in joint, pelvic region and thigh 0 06/01/2016 Other chronic cystitis 12/21/2008 7 Hypertonicity of bladder 12/21/2008 017 PLANTAR Fasciitis 08/14/2006 06/01/2016 Sprain of neck 04/17/2006 06/01/2016 Rheumatoid arthritis 03/18/2006 06/01/2016 CHOLELITHIASIS SEE ALSO GALL BLADD WITHOUT CHOLECYSTITIS( Without obstruction) 01/11/2006 06/01/2016 HEPATITIS C CARRIER--treated with IFN and ribavirin and is in remission (as of 05/21) 05/29/2005 06/01/2016 Conductive hearing loss of combined types 200506/01/2016 Migraine variant 05/29/2005 06/01/2016 CHRONIC BRONCHITIS NOS--related to smoking 05/2906/01/2016 OSTEOARTHROS NOS-OTHER SITE- -OA vs RA treated with NSAIDs in past. 05/29/2005 06/01/2016 Overview: actonel 2010 start from hx in EPIC, fosamax 2011 started Cleft lip, unspecified 01/24/2005 7 documented as of this encounter (statuses as of 02/14/2022) [facility]2022 History of Past illness Narrative* Problem Noted Date Resolved Date Chest pain 01/19/2022 01/20/2022 COPD with exacerbation 01/17/2022 Hypokalemia 01/17/2022 01/18/2022 Pancreatitis 08/04/2020 01/18/2022 Chronic pain syndrome 06/27/2015 06/01/2016 Encounter for long-term (current) use of medicat ions 11/15/2014 06/01/2016 Lumbago 09/02/2014 06/01/2016 Cataract of both eyes 10/26/2013 06/01/2016 Overview: [facility] 10/22/2013 - Combined forms of age-related cataract of both eyes Eating disorder 02/16/2013 06/01/2016 Cervical strain 01/22/2013 06/01/2016 Cervical disc disease 01/22/2013 06/01/2016 Xerosis cutis 09/07/2012 06/01/2016 Arthritis of left knee 02/15/2012 7 Leg ulcer, left 02/15/2012 06/01/2016 Closed fracture of lateral malleolus 11/23/2011 06/01/2016 Contusion of toe 11/23/2011 06/01/2016 Capsulitis 11/06/2011 06/01/2016 Pruritus of forearm 09/07/2011 06/01/2016 Pruritus - disorder 09/07/2011 06/01/2016 Eczematous dermatitis 09/07/2011 06/01/2016 Lichenoid dermatitis 09/07/2011 06/01/2016 Excoriation 09/07/2011 06/01/2016 Nasal septal deviation 08/29/2011 7 Orbital mass 07/15/2011 06/01/2016 Obesity 05/09/2011 01/14/2014 Last Assessment & Plan: Pt disappointed in the amount of weight loss she has had over the past month while on the prescription Adipex 37.5mg daily. States she eats oatmeal in the morning every other day and at night has 1/3 of a bag of kettlecorn popcorn. States she does not eat anything else throughout the day. Ms Berg states since she was in her 20's she would control her wt loss by forcing herself to vomit after eating so she could eat more. Denies having an eating disorder and denies recent forced vomiting. Denies any current exercise routine and states she does not like to exercise. Her goal wt is 115. States she has a good appetite but limits her intake. She says she has a bad sweet tooth especially for chocolate. Cervical vertebral fracture 05/07/201105/16 Muscle spasms of head or neck 08/26/2009 Pain in joint, pelvic region and thigh 0 06/01/2016 Other chronic cystitis 12/21/2008 7 Hypertonicity of bladder 12/21/2008 017 PLANTAR Fasciitis 08/14/2006 06/01/2016 Sprain of neck 04/17/2006 06/01/2016 Rheumatoid arthritis 03/18/2006 06/01/2016 CHOLELITHIASIS SEE ALSO GALL BLADD WITHOUT CHOLECYSTITIS( Without obstruction) 01/11/2006 06/01/2016 HEPATITIS C CARRIER--treated with IFN and ribavirin and is in remission (as of 05/21) 05/29/2005 06/01/2016 Conductive hearing loss of combined types 200506/01/2016 Migraine variant 05/29/2005 06/01/2016 CHRONIC BRONCHITIS NOS--related to smoking 05/2906/01/2016 OSTEOARTHROS NOS-OTHER SITE- -OA vs RA treated with NSAIDs in past. 05/29/2005 06/01/2016 Overview: actonel 2009 start from hx in EPIC, fosamax 2012 started Cleft lip, unspecified 01/24/2005 7 documented as of this encounter (statuses as of 02/14/2022) [facility]2022 History of Past illness Narrative* Problem Noted Date Resolved Date Chest pain 01/19/2022 01/20/2022 COPD with exacerbation 01/17/2022 Hypokalemia 01/17/2022 01/18/2022 Pancreatitis 08/04/2020 01/18/2022 Chronic pain syndrome 06/27/2015 06/01/2016 Encounter for long-term (current) use of medicat ions 11/15/2014 06/01/2016 Lumbago 09/02/2014 06/01/2016 Cataract of both eyes 10/26/2013 06/01/2016 Overview: [facility] 10/22/2013 - Combined forms of age-related cataract of both eyes Eating disorder 02/16/2013 06/01/2016 Cervical strain 01/22/2013 06/01/2016 Cervical disc disease 01/22/2013 06/01/2016 Xerosis cutis 09/07/2012 06/01/2016 Arthritis of left knee 02/15/2012 7 Leg ulcer, left 02/15/2012 06/01/2016 Closed fracture of lateral malleolus 11/23/2011 06/01/2016 Contusion of toe 11/23/2011 06/01/2016 Capsulitis 11/06/2011 06/01/2016 Pruritus of forearm 09/07/2011 06/01/2016 Pruritus - disorder 09/07/2011 06/01/2016 Eczematous dermatitis 09/07/2011 06/01/2016 Lichenoid dermatitis 09/07/2011 06/01/2016 Excoriation 09/07/2011 06/01/2016 Nasal septal deviation 08/29/2011 7 Orbital mass 07/15/2011 06/01/2016 Obesity 05/09/2011 01/14/2014 Last Assessment & Plan: Pt disappointed in the amount of weight loss she has had over the past month while on the prescription Adipex 37.5mg daily. States she eats oatmeal in the morning every other day and at night has 1/3 of a bag of kettlecorn popcorn. States she does not eat anything else throughout the day. Ms Otis states since she was in her 20's she would control her wt loss by forcing herself to vomit after eating so she could eat more. Denies having an eating disorder and denies recent forced vomiting. Denies any current exercise routine and states she does not like to exercise. Her goal wt is 115. States she has a good appetite but limits her intake. She says she has a bad sweet tooth especially for chocolate. Cervical vertebral fracture 05/07/201105/16 Muscle spasms of head or neck 08/26/2009 Pain in joint, pelvic region and thigh 0 06/01/2016 Other chronic cystitis 12/21/2008 7 Hypertonicity of bladder 12/21/2008 017 PLANTAR Fasciitis 08/14/2006 06/01/2016 Sprain of neck 04/17/2006 06/01/2016 Rheumatoid arthritis 03/18/2006 06/01/2016 CHOLELITHIASIS SEE ALSO GALL BLADD WITHOUT CHOLECYSTITIS( Without obstruction) 01/11/2006 06/01/2016 HEPATITIS C CARRIER--treated with IFN and ribavirin and is in remission (as of 05/21) 05/29/2005 06/01/2016 Conductive hearing loss of combined types 200506/01/2016 Migraine variant 05/29/2005 06/01/2016 CHRONIC BRONCHITIS NOS--related to smoking 05/2906/01/2016 OSTEOARTHROS NOS-OTHER SITE- -OA vs RA treated with NSAIDs in past. 05/29/2005 06/01/2016 Overview: actonel 2009 start from hx in EPIC, fosamax 2011 started Cleft lip, unspecified 01/24/2005 7 documented as of this encounter (statuses as of 02/15/2022) [facility] History of Past illness Narrative* Problem Noted Date Resolved Date Chest pain 01/19/2022 01/20/2022 COPD with exacerbation 01/17/2022 Hypokalemia 01/17/2022 01/18/2022 Pancreatitis 08/04/2020 01/18/2022 Chronic pain syndrome 06/27/2015 06/01/2016 Encounter for long-term (current) use of medicat ions 11/15/2014 06/01/2016 Lumbago 09/02/2014 06/01/2016 Cataract of both eyes 10/26/2013 06/01/2016 Overview: [facility] 10/22/2013 - Combined forms of age-related cataract of both eyes Eating disorder 02/16/2013 06/01/2016 Cervical strain 01/22/2013 06/01/2016 Cervical disc disease 01/22/2013 06/01/2016 Xerosis cutis 09/07/2012 06/01/2016 Arthritis of left knee 02/15/2012 7 Leg ulcer, left 02/15/2012 06/01/2016 Closed fracture of lateral malleolus 11/23/2011 06/01/2016 Contusion of toe 11/23/2011 06/01/2016 Capsulitis 11/06/2011 06/01/2016 Pruritus of forearm 09/07/2011 06/01/2016 Pruritus - disorder 09/07/2011 06/01/2016 Eczematous dermatitis 09/07/2011 06/01/2016 Lichenoid dermatitis 09/07/2011 06/01/2016 Excoriation 09/07/2011 06/01/2016 Nasal septal deviation 08/29/2011 7 Orbital mass 07/15/2011 06/01/2016 Obesity 05/09/2011 01/14/2014 Last Assessment & Plan: Pt disappointed in the amount of weight loss she has had over the past month while on the prescription Adipex 37.5mg daily. States she eats oatmeal in the morning every other day and at night has 1/3 of a bag of kettlecorn popcorn. States she does not eat anything else throughout the day. Ms Berg states since she was in her 20's she would control her wt loss by forcing herself to vomit after eating so she could eat more. Denies having an eating disorder and denies recent forced vomiting. Denies any current exercise routine and states she does not like to exercise. Her goal wt is 115. States she has a good appetite but limits her intake. She says she has a bad sweet tooth especially for chocolate. Cervical vertebral fracture 05/07/201105/16 Muscle spasms of head or neck 08/26/2009 Pain in joint, pelvic region and thigh 0 06/01/2016 Other chronic cystitis 12/21/2008 7 Hypertonicity of bladder 12/21/2008 017 PLANTAR Fasciitis 08/14/2006 06/01/2016 Sprain of neck 04/17/2006 06/01/2016 Rheumatoid arthritis 03/18/2006 06/01/2016 CHOLELITHIASIS SEE ALSO GALL BLADD WITHOUT CHOLECYSTITIS( Without obstruction) 01/11/2006 06/01/2016 HEPATITIS C CARRIER--treated with IFN and ribavirin and is in remission (as of 05/21) 05/29/2005 06/01/2016 Conductive hearing loss of combined types 200506/01/2016 Migraine variant 05/29/2005 06/01/2016 CHRONIC BRONCHITIS NOS--related to smoking 05/2906/01/2016 OSTEOARTHROS NOS-OTHER SITE- -OA vs RA treated with NSAIDs in past. 05/29/2005 06/01/2016 Overview: actonel 2010 start from hx in EPIC, fosamax 2012 started Cleft lip, unspecified 01/24/2005 7 documented as of this encounter (statuses as of 02/15/2022) [facility]10-07-2022 History of Past illness Narrative* Problem Noted Date Resolved Date Chest pain 01/19/2022 01/20/2022 COPD with exacerbation 01/17/2022 Hypokalemia 01/17/2022 01/18/2022 Pancreatitis 08/04/2020 01/18/2022 Chronic pain syndrome 06/27/2015 06/01/2016 Encounter for long-term (current) use of medicat ions 11/15/2014 06/01/2016 Lumbago 09/02/2014 06/01/2016 Cataract of both eyes 10/26/2013 06/01/2016 Overview: [facility] 10/22/2013 - Combined forms of age-related cataract of both eyes Eating disorder 02/16/2013 06/01/2016 Cervical strain 01/22/2013 06/01/2016 Cervical disc disease 01/22/2013 06/01/2016 Xerosis cutis 09/07/2012 06/01/2016 Arthritis of left knee 02/15/2012 7 Leg ulcer, left 02/15/2012 06/01/2016 Closed fracture of lateral malleolus 11/23/2011 06/01/2016 Contusion of toe 11/23/2011 06/01/2016 Capsulitis 11/06/2011 06/01/2016 Pruritus of forearm 09/07/2011 06/01/2016 Pruritus - disorder 09/07/2011 06/01/2016 Eczematous dermatitis 09/07/2011 06/01/2016 Lichenoid dermatitis 09/07/2011 06/01/2016 Excoriation 09/07/2011 06/01/2016 Nasal septal deviation 08/29/2011 7 Orbital mass 07/15/2011 06/01/2016 Obesity 05/09/2011 01/14/2014 Last Assessment & Plan: Pt disappointed in the amount of weight loss she has had over the past month while on the prescription Adipex 37.5mg daily. States she eats oatmeal in the morning every other day and at night has 1/3 of a bag of kettlecorn popcorn. States she does not eat anything else throughout the day. Ms Berg states since she was in her 20's she would control her wt loss by forcing herself to vomit after eating so she could eat more. Denies having an eating disorder and denies recent forced vomiting. Denies any current exercise routine and states she does not like to exercise. Her goal wt is 115. States she has a good appetite but limits her intake. She says she has a bad sweet tooth especially for chocolate. Cervical vertebral fracture 05/07/201105/16 Muscle spasms of head or neck 08/26/2009 Pain in joint, pelvic region and thigh 0 06/01/2016 Other chronic cystitis 12/21/2008 7 Hypertonicity of bladder 12/21/2008 017 PLANTAR Fasciitis 08/14/2006 06/01/2016 Sprain of neck 04/17/2006 06/01/2016 Rheumatoid arthritis 03/18/2006 06/01/2016 CHOLELITHIASIS SEE ALSO GALL BLADD WITHOUT CHOLECYSTITIS( Without obstruction) 01/11/2006 06/01/2016 HEPATITIS C CARRIER--treated with IFN and ribavirin and is in remission (as of 05/21) 05/29/2005 06/01/2016 Conductive hearing loss of combined types 200506/01/2016 Migraine variant 05/29/2005 06/01/2016 CHRONIC BRONCHITIS NOS--related to smoking 05/2906/01/2016 OSTEOARTHROS NOS-OTHER SITE- -OA vs RA treated with NSAIDs in past. 05/29/2005 06/01/2016 Overview: actonel 2009 start from hx in EPIC, fosamax 2011 started Cleft lip, unspecified 01/24/2005 7 documented as of this encounter (statuses as of 02/16/2022) [facility]10-07-2022 History of Past illness Narrative* Problem Noted Date Resolved Date Chest pain 01/19/2022 01/20/2022 COPD with exacerbation 01/17/2022 Hypokalemia 01/17/2022 01/18/2022 Pancreatitis 08/04/2020 01/18/2022 Chronic pain syndrome 06/27/2015 06/01/2016 Encounter for long-term (current) use of medicat ions 11/15/2014 06/01/2016 Lumbago 09/02/2014 06/01/2016 Cataract of both eyes 10/26/2013 06/01/2016 Overview: [facility] 10/22/2013 - Combined forms of age-related cataract of both eyes Eating disorder 02/16/2013 06/01/2016 Cervical strain 01/22/2013 06/01/2016 Cervical disc disease 01/22/2013 06/01/2016 Xerosis cutis 09/07/2012 06/01/2016 Arthritis of left knee 02/15/2012 7 Leg ulcer, left 02/15/2012 06/01/2016 Closed fracture of lateral malleolus 11/23/2011 06/01/2016 Contusion of toe 11/23/2011 06/01/2016 Capsulitis 11/06/2011 06/01/2016 Pruritus of forearm 09/07/2011 06/01/2016 Pruritus - disorder 09/07/2011 06/01/2016 Eczematous dermatitis 09/07/2011 06/01/2016 Lichenoid dermatitis 09/07/2011 06/01/2016 Excoriation 09/07/2011 06/01/2016 Nasal septal deviation 08/29/2011 7 Orbital mass 07/15/2011 06/01/2016 Obesity 05/09/2011 01/14/2014 Last Assessment & Plan: Pt disappointed in the amount of weight loss she has had over the past month while on the prescription Adipex 37.5mg daily. States she eats oatmeal in the morning every other day and at night has 1/3 of a bag of kettlecorn popcorn. States she does not eat anything else throughout the day. Ms Berg states since she was in her 20's she would control her wt loss by forcing herself to vomit after eating so she could eat more. Denies having an eating disorder and denies recent forced vomiting. Denies any current exercise routine and states she does not like to exercise. Her goal wt is 115. States she has a good appetite but limits her intake. She says she has a bad sweet tooth especially for chocolate. Cervical vertebral fracture 05/07/201105/16 Muscle spasms of head or neck 08/26/2009 Pain in joint, pelvic region and thigh 0 06/01/2016 Other chronic cystitis 12/21/2008 7 Hypertonicity of bladder 12/21/2008 017 PLANTAR Fasciitis 08/14/2006 06/01/2016 Sprain of neck 04/17/2006 06/01/2016 Rheumatoid arthritis 03/18/2006 06/01/2016 CHOLELITHIASIS SEE ALSO GALL BLADD WITHOUT CHOLECYSTITIS( Without obstruction) 01/11/2006 06/01/2016 HEPATITIS C CARRIER--treated with IFN and ribavirin and is in remission (as of 05/21) 05/29/2005 06/01/2016 Conductive hearing loss of combined types 200506/01/2016 Migraine variant 05/29/2005 06/01/2016 CHRONIC BRONCHITIS NOS--related to smoking 05/2906/01/2016 OSTEOARTHROS NOS-OTHER SITE- -OA vs RA treated with NSAIDs in past. 05/29/2005 06/01/2016 Overview: actonel 2010 start from hx in EPIC, fosamax 2011 started Cleft lip, unspecified 01/24/2005 7 documented as of this encounter (statuses as of 02/16/2022) [facility]-07-2022 History of Past illness Narrative* Problem Noted Date Resolved Date Chest pain 01/19/2022 01/20/2022 COPD with exacerbation 01/17/2022 Hypokalemia 01/17/2022 01/18/2022 Pancreatitis 08/04/2020 01/18/2022 Chronic pain syndrome 06/27/2015 06/01/2016 Encounter for long-term (current) use of medicat ions 11/15/2014 06/01/2016 Lumbago 09/02/2014 06/01/2016 Cataract of both eyes 10/26/2013 06/01/2016 Overview: [facility] 10/22/2013 - Combined forms of age-related cataract of both eyes Eating disorder 02/16/2013 06/01/2016 Cervical strain 01/22/2013 06/01/2016 Cervical disc disease 01/22/2013 06/01/2016 Xerosis cutis 09/07/2012 06/01/2016 Arthritis of left knee 02/15/2012 7 Leg ulcer, left 02/15/2012 06/01/2016 Closed fracture of lateral malleolus 11/23/2011 06/01/2016 Contusion of toe 11/23/2011 06/01/2016 Capsulitis 11/06/2011 06/01/2016 Pruritus of forearm 09/07/2011 06/01/2016 Pruritus - disorder 09/07/2011 06/01/2016 Eczematous dermatitis 09/07/2011 06/01/2016 Lichenoid dermatitis 09/07/2011 06/01/2016 Excoriation 09/07/2011 06/01/2016 Nasal septal deviation 08/29/2011 7 Orbital mass 07/15/2011 06/01/2016 Obesity 05/09/2011 01/14/2014 Last Assessment & Plan: Pt disappointed in the amount of weight loss she has had over the past month while on the prescription Adipex 37.5mg daily. States she eats oatmeal in the morning every other day and at night has 1/3 of a bag of kettlecorn popcorn. States she does not eat anything else throughout the day. Ms Berg states since she was in her 20's she would control her wt loss by forcing herself to vomit after eating so she could eat more. Denies having an eating disorder and denies recent forced vomiting. Denies any current exercise routine and states she does not like to exercise. Her goal wt is 115. States she has a good appetite but limits her intake. She says she has a bad sweet tooth especially for chocolate. Cervical vertebral fracture 05/07/201105/16 Muscle spasms of head or neck 08/26/2009 Pain in joint, pelvic region and thigh 0 06/01/2016 Other chronic cystitis 12/21/2008 7 Hypertonicity of bladder 12/21/2008 017 PLANTAR Fasciitis 08/14/2006 06/01/2016 Sprain of neck 04/17/2006 06/01/2016 Rheumatoid arthritis 03/18/2006 06/01/2016 CHOLELITHIASIS SEE ALSO GALL BLADD WITHOUT CHOLECYSTITIS( Without obstruction) 01/11/2006 06/01/2016 HEPATITIS C CARRIER--treated with IFN and ribavirin and is in remission (as of 05/21) 05/29/2005 06/01/2016 Conductive hearing loss of combined types 200506/01/2016 Migraine variant 05/29/2005 06/01/2016 CHRONIC BRONCHITIS NOS--related to smoking 05/2906/01/2016 OSTEOARTHROS NOS-OTHER SITE- -OA vs RA treated with NSAIDs in past. 05/29/2005 06/01/2016 Overview: actonel 2009 start from hx in EPIC, fosamax 2011 started Cleft lip, unspecified 01/24/2005 7 documented as of this encounter (statuses as of 02/16/2022) [place] [address]-07-2022 History of Past illness Narrative* Problem Noted Date Resolved Date Chest pain 01/19/2022 01/20/2022 COPD with exacerbation 01/17/2022 Hypokalemia 01/17/2022 01/18/2022 Pancreatitis 08/04/2020 01/18/2022 Chronic pain syndrome 06/27/2015 06/01/2016 Encounter for long-term (current) use of medicat ions 11/15/2014 06/01/2016 Lumbago 09/02/2014 06/01/2016 Cataract of both eyes 10/26/2013 06/01/2016 Overview: [facility] 10/22/2013 - Combined forms of age-related cataract of both eyes Eating disorder 02/16/2013 06/01/2016 Cervical strain 01/22/2013 06/01/2016 Cervical disc disease 01/22/2013 06/01/2016 Xerosis cutis 09/07/2012 06/01/2016 Arthritis of left knee 02/15/2012 7 Leg ulcer, left 02/15/2012 06/01/2016 Closed fracture of lateral malleolus 11/23/2011 06/01/2016 Contusion of toe 11/23/2011 06/01/2016 Capsulitis 11/06/2011 06/01/2016 Pruritus of forearm 09/07/2011 06/01/2016 Pruritus - disorder 09/07/2011 06/01/2016 Eczematous dermatitis 09/07/2011 06/01/2016 Lichenoid dermatitis 09/07/2011 06/01/2016 Excoriation 09/07/2011 06/01/2016 Nasal septal deviation 08/29/2011 7 Orbital mass 07/15/2011 06/01/2016 Obesity 05/09/2011 01/14/2014 Last Assessment & Plan: Pt disappointed in the amount of weight loss she has had over the past month while on the prescription Adipex 37.5mg daily. States she eats oatmeal in the morning every other day and at night has 1/3 of a bag of kettlecorn popcorn. States she does not eat anything else throughout the day. Ms Berg states since she was in her 20's she would control her wt loss by forcing herself to vomit after eating so she could eat more. Denies having an eating disorder and denies recent forced vomiting. Denies any current exercise routine and states she does not like to exercise. Her goal wt is 115. States she has a good appetite but limits her intake. She says she has a bad sweet tooth especially for chocolate. Cervical vertebral fracture 05/07/201105/16 Muscle spasms of head or neck 08/26/2009 Pain in joint, pelvic region and thigh 0 06/01/2016 Other chronic cystitis 12/21/2008 7 Hypertonicity of bladder 12/21/2008 017 PLANTAR Fasciitis 08/14/2006 06/01/2016 Sprain of neck 04/17/2006 06/01/2016 Rheumatoid arthritis 03/18/2006 06/01/2016 CHOLELITHIASIS SEE ALSO GALL BLADD WITHOUT CHOLECYSTITIS( Without obstruction) 01/11/2006 06/01/2016 HEPATITIS C CARRIER--treated with IFN and ribavirin and is in remission (as of 05/21) 05/29/2005 06/01/2016 Conductive hearing loss of combined types 200506/01/2016 Migraine variant 05/29/2005 06/01/2016 CHRONIC BRONCHITIS NOS--related to smoking 05/2906/01/2016 OSTEOARTHROS NOS-OTHER SITE- -OA vs RA treated with NSAIDs in past. 05/29/2005 06/01/2016 Overview: actonel 2010 start from hx in EPIC, fosamax 2011 started Cleft lip, unspecified 01/24/2005 7 documented as of this encounter (statuses as of 02/18/2022) [facility]-07-2022 History of Past illness Narrative* Problem Noted Date Resolved Date Chest pain 01/19/2022 01/20/2022 COPD with exacerbation 01/17/2022 Hypokalemia 01/17/2022 01/18/2022 Pancreatitis 08/04/2020 01/18/2022 Chronic pain syndrome 06/27/2015 06/01/2016 Encounter for long-term (current) use of medicat ions 11/15/2014 06/01/2016 Lumbago 09/02/2014 06/01/2016 Cataract of both eyes 10/26/2013 06/01/2016 Overview: [facility] 10/22/2013 - Combined forms of age-related cataract of both eyes Eating disorder 02/16/2013 06/01/2016 Cervical strain 01/22/2013 06/01/2016 Cervical disc disease 01/22/2013 06/01/2016 Xerosis cutis 09/07/2012 06/01/2016 Arthritis of left knee 02/15/2012 7 Leg ulcer, left 02/15/2012 06/01/2016 Closed fracture of lateral malleolus 11/23/2011 06/01/2016 Contusion of toe 11/23/2011 06/01/2016 Capsulitis 11/06/2011 06/01/2016 Pruritus of forearm 09/07/2011 06/01/2016 Pruritus - disorder 09/07/2011 06/01/2016 Eczematous dermatitis 09/07/2011 06/01/2016 Lichenoid dermatitis 09/07/2011 06/01/2016 Excoriation 09/07/2011 06/01/2016 Nasal septal deviation 08/29/2011 7 Orbital mass 07/15/2011 06/01/2016 Obesity 05/09/2011 01/14/2014 Last Assessment & Plan: Pt disappointed in the amount of weight loss she has had over the past month while on the prescription Adipex 37.5mg daily. States she eats oatmeal in the morning every other day and at night has 1/3 of a bag of kettlecorn popcorn. States she does not eat anything else throughout the day. Ms Berg states since she was in her 20's she would control her wt loss by forcing herself to vomit after eating so she could eat more. Denies having an eating disorder and denies recent forced vomiting. Denies any current exercise routine and states she does not like to exercise. Her goal wt is 115. States she has a good appetite but limits her intake. She says she has a bad sweet tooth especially for chocolate. Cervical vertebral fracture 05/07/201105/16 Muscle spasms of head or neck 08/26/2009 Pain in joint, pelvic region and thigh 0 06/01/2016 Other chronic cystitis 12/21/2008 7 Hypertonicity of bladder 12/21/2008 017 PLANTAR Fasciitis 08/14/2006 06/01/2016 Sprain of neck 04/17/2006 06/01/2016 Rheumatoid arthritis 03/18/2006 06/01/2016 CHOLELITHIASIS SEE ALSO GALL BLADD WITHOUT CHOLECYSTITIS( Without obstruction) 01/11/2006 06/01/2016 HEPATITIS C CARRIER--treated with IFN and ribavirin and is in remission (as of 05/21) 05/29/2005 06/01/2016 Conductive hearing loss of combined types 200506/01/2016 Migraine variant 05/29/2005 06/01/2016 CHRONIC BRONCHITIS NOS--related to smoking 05/2906/01/2016 OSTEOARTHROS NOS-OTHER SITE- -OA vs RA treated with NSAIDs in past. 05/29/2005 06/01/2016 Overview: actonel 2009 start from hx in EPIC, fosamax 2011 started Cleft lip, unspecified 01/24/2005 7 documented as of this encounter (statuses as of 02/19/2022) [facility]-07-2022 History of Past illness Narrative* Problem Noted Date Resolved Date Chest pain 01/19/2022 01/20/2022 COPD with exacerbation 01/17/2022 Hypokalemia 01/17/2022 01/18/2022 Pancreatitis 08/04/2020 01/18/2022 Chronic pain syndrome 06/27/2015 06/01/2016 Encounter for long-term (current) use of medicat ions 11/15/2014 06/01/2016 Lumbago 09/02/2014 06/01/2016 Cataract of both eyes 10/26/2013 06/01/2016 Overview: [facility] 10/22/2013 - Combined forms of age-related cataract of both eyes Eating disorder 02/16/2013 06/01/2016 Cervical strain 01/22/2013 06/01/2016 Cervical disc disease 01/22/2013 06/01/2016 Xerosis cutis 09/07/2012 06/01/2016 Arthritis of left knee 02/15/2012 7 Leg ulcer, left 02/15/2012 06/01/2016 Closed fracture of lateral malleolus 11/23/2011 06/01/2016 Contusion of toe 11/23/2011 06/01/2016 Capsulitis 11/06/2011 06/01/2016 Pruritus of forearm 09/07/2011 06/01/2016 Pruritus - disorder 09/07/2011 06/01/2016 Eczematous dermatitis 09/07/2011 06/01/2016 Lichenoid dermatitis 09/07/2011 06/01/2016 Excoriation 09/07/2011 06/01/2016 Nasal septal deviation 08/29/2011 7 Orbital mass 07/15/2011 06/01/2016 Obesity 05/09/2011 01/14/2014 Last Assessment & Plan: Pt disappointed in the amount of weight loss she has had over the past month while on the prescription Adipex 37.5mg daily. States she eats oatmeal in the morning every other day and at night has 1/3 of a bag of kettlecorn popcorn. States she does not eat anything else throughout the day. Ms Berg states since she was in her 20's she would control her wt loss by forcing herself to vomit after eating so she could eat more. Denies having an eating disorder and denies recent forced vomiting. Denies any current exercise routine and states she does not like to exercise. Her goal wt is 115. States she has a good appetite but limits her intake. She says she has a bad sweet tooth especially for chocolate. Cervical vertebral fracture 05/07/201105/16 Muscle spasms of head or neck 08/26/2009 Pain in joint, pelvic region and thigh 0 06/01/2016 Other chronic cystitis 12/21/2008 7 Hypertonicity of bladder 12/21/2008 017 PLANTAR Fasciitis 08/14/2006 06/01/2016 Sprain of neck 04/17/2006 06/01/2016 Rheumatoid arthritis 03/18/2006 06/01/2016 CHOLELITHIASIS SEE ALSO GALL BLADD WITHOUT CHOLECYSTITIS( Without obstruction) 01/11/2006 06/01/2016 HEPATITIS C CARRIER--treated with IFN and ribavirin and is in remission (as of 05/21) 05/29/2005 06/01/2016 Conductive hearing loss of combined types 200506/01/2016 Migraine variant 05/29/2005 06/01/2016 CHRONIC BRONCHITIS NOS--related to smoking 05/2906/01/2016 OSTEOARTHROS NOS-OTHER SITE- -OA vs RA treated with NSAIDs in past. 05/29/2005 06/01/2016 Overview: actonel 2009 start from hx in EPIC, fosamax 2011 started Cleft lip, unspecified 01/24/2005 7 documented as of this encounter (statuses as of 02/21/2022) [facility]2022 History of Past illness Narrative* Problem Noted Date Resolved Date Chest pain 01/19/2022 01/20/2022 COPD with exacerbation 01/17/2022 Hypokalemia 01/17/2022 01/18/2022 Pancreatitis 08/04/2020 01/18/2022 Chronic pain syndrome 06/27/2015 06/01/2016 Encounter for long-term (current) use of medicat ions 11/15/2014 06/01/2016 Lumbago 09/02/2014 06/01/2016 Cataract of both eyes 10/26/2013 06/01/2016 Overview: [facility] [place] 10/22/2013 - Combined forms of age-related cataract of both eyes Eating disorder 02/16/2013 06/01/2016 Cervical strain 01/22/2013 06/01/2016 Cervical disc disease 01/22/2013 06/01/2016 Xerosis cutis 09/07/2012 06/01/2016 Arthritis of left knee 02/15/2012 7 Leg ulcer, left 02/15/2012 06/01/2016 Closed fracture of lateral malleolus 11/23/2011 06/01/2016 Contusion of toe 11/23/2011 06/01/2016 Capsulitis 11/06/2011 06/01/2016 Pruritus of forearm 09/07/2011 06/01/2016 Pruritus - disorder 09/07/2011 06/01/2016 Eczematous dermatitis 09/07/2011 06/01/2016 Lichenoid dermatitis 09/07/2011 06/01/2016 Excoriation 09/07/2011 06/01/2016 Nasal septal deviation 08/29/2011 7 Orbital mass 07/15/2011 06/01/2016 Obesity 05/09/2011 01/14/2014 Last Assessment & Plan: Pt disappointed in the amount of weight loss she has had over the past month while on the prescription Adipex 37.5mg daily. States she eats oatmeal in the morning every other day and at night has 1/3 of a bag of kettlecorn popcorn. States she does not eat anything else throughout the day. Ms Berg states since she was in her 20's she would control her wt loss by forcing herself to vomit after eating so she could eat more. Denies having an eating disorder and denies recent forced vomiting. Denies any current exercise routine and states she does not like to exercise. Her goal wt is 115. States she has a good appetite but limits her intake. She says she has a bad sweet tooth especially for chocolate. Cervical vertebral fracture 05/07/201105/16 Muscle spasms of head or neck 08/26/2009 Pain in joint, pelvic region and thigh 0 06/01/2016 Other chronic cystitis 12/21/2008 7 Hypertonicity of bladder 12/21/2008 017 PLANTAR Fasciitis 08/14/2006 06/01/2016 Sprain of neck 04/17/2006 06/01/2016 Rheumatoid arthritis 03/18/2006 06/01/2016 CHOLELITHIASIS SEE ALSO GALL BLADD WITHOUT CHOLECYSTITIS( Without obstruction) 01/11/2006 06/01/2016 HEPATITIS C CARRIER--treated with IFN and ribavirin and is in remission (as of 05/21) 05/29/2005 06/01/2016 Conductive hearing loss of combined types 200506/01/2016 Migraine variant 05/29/2005 06/01/2016 CHRONIC BRONCHITIS NOS--related to smoking 05/2906/01/2016 OSTEOARTHROS NOS-OTHER SITE- -OA vs RA treated with NSAIDs in past. 05/29/2005 06/01/2016 Overview: actonel 2010 start from hx in EPIC, fosamax 2011 started Cleft lip, unspecified 01/24/2005 7 documented as of this encounter (statuses as of 02/22/2022) [facility] History of Past illness Narrative* Problem Noted Date Resolved Date Chest pain 01/19/2022 01/20/2022 COPD with exacerbation 01/17/2022 Hypokalemia 01/17/2022 01/18/2022 Pancreatitis 08/04/2020 01/18/2022 Chronic pain syndrome 06/27/2015 06/01/2016 Encounter for long-term (current) use of medicat ions 11/15/2014 06/01/2016 Lumbago 09/02/2014 06/01/2016 Cataract of both eyes 10/26/2013 06/01/2016 Overview: [facility] 10/22/2013 - Combined forms of age-related cataract of both eyes Eating disorder 02/16/2013 06/01/2016 Cervical strain 01/22/2013 06/01/2016 Cervical disc disease 01/22/2013 06/01/2016 Xerosis cutis 09/07/2012 06/01/2016 Arthritis of left knee 02/15/2012 7 Leg ulcer, left 02/15/2012 06/01/2016 Closed fracture of lateral malleolus 11/23/2011 06/01/2016 Contusion of toe 11/23/2011 06/01/2016 Capsulitis 11/06/2011 06/01/2016 Pruritus of forearm 09/07/2011 06/01/2016 Pruritus - disorder 09/07/2011 06/01/2016 Eczematous dermatitis 09/07/2011 06/01/2016 Lichenoid dermatitis 09/07/2011 06/01/2016 Excoriation 09/07/2011 06/01/2016 Nasal septal deviation 08/29/2011 7 Orbital mass 07/15/2011 06/01/2016 Obesity 05/09/2011 01/14/2014 Last Assessment & Plan: Pt disappointed in the amount of weight loss she has had over the past month while on the prescription Adipex 37.5mg daily. States she eats oatmeal in the morning every other day and at night has 1/3 of a bag of kettlecorn popcorn. States she does not eat anything else throughout the day. Ms Berg states since she was in her 20's she would control her wt loss by forcing herself to vomit after eating so she could eat more. Denies having an eating disorder and denies recent forced vomiting. Denies any current exercise routine and states she does not like to exercise. Her goal wt is 115. States she has a good appetite but limits her intake. She says she has a bad sweet tooth especially for chocolate. Cervical vertebral fracture 05/07/201105/16 Muscle spasms of head or neck 08/26/2009 Pain in joint, pelvic region and thigh 0 06/01/2016 Other chronic cystitis 12/21/2008 7 Hypertonicity of bladder 12/21/2008 017 PLANTAR Fasciitis 08/14/2006 06/01/2016 Sprain of neck 04/17/2006 06/01/2016 Rheumatoid arthritis 03/18/2006 06/01/2016 CHOLELITHIASIS SEE ALSO GALL BLADD WITHOUT CHOLECYSTITIS( Without obstruction) 01/11/2006 06/01/2016 HEPATITIS C CARRIER--treated with IFN and ribavirin and is in remission (as of 05/21) 05/29/2005 06/01/2016 Conductive hearing loss of combined types 200506/01/2016 Migraine variant 05/29/2005 06/01/2016 CHRONIC BRONCHITIS NOS--related to smoking 05/2906/01/2016 OSTEOARTHROS NOS-OTHER SITE- -OA vs RA treated with NSAIDs in past. 05/29/2005 06/01/2016 Overview: actonel 2009 start from hx in EPIC, fosamax 2011 started Cleft lip, unspecified 01/24/2005 7 documented as of this encounter (statuses as of 02/22/2022) [facility]10-07-2022 History of Past illness Narrative* Problem Noted Date Resolved Date Chest pain 01/19/2022 01/20/2022 COPD with exacerbation 01/17/2022 Hypokalemia 01/17/2022 01/18/2022 Pancreatitis 08/04/2020 01/18/2022 Chronic pain syndrome 06/27/2015 06/01/2016 Encounter for long-term (current) use of medicat ions 11/15/2014 06/01/2016 Lumbago 09/02/2014 06/01/2016 Cataract of both eyes 10/26/2013 06/01/2016 Overview: [facility] 10/22/2013 - Combined forms of age-related cataract of both eyes Eating disorder 02/16/2013 06/01/2016 Cervical strain 01/22/2013 06/01/2016 Cervical disc disease 01/22/2013 06/01/2016 Xerosis cutis 09/07/2012 06/01/2016 Arthritis of left knee 02/15/2012 7 Leg ulcer, left 02/15/2012 06/01/2016 Closed fracture of lateral malleolus 11/23/2011 06/01/2016 Contusion of toe 11/23/2011 06/01/2016 Capsulitis 11/06/2011 06/01/2016 Pruritus of forearm 09/07/2011 06/01/2016 Pruritus - disorder 09/07/2011 06/01/2016 Eczematous dermatitis 09/07/2011 06/01/2016 Lichenoid dermatitis 09/07/2011 06/01/2016 Excoriation 09/07/2011 06/01/2016 Nasal septal deviation 08/29/2011 7 Orbital mass 07/15/2011 06/01/2016 Obesity 05/09/2011 01/14/2014 Last Assessment & Plan: Pt disappointed in the amount of weight loss she has had over the past month while on the prescription Adipex 37.5mg daily. States she eats oatmeal in the morning every other day and at night has 1/3 of a bag of kettlecorn popcorn. States she does not eat anything else throughout the day. Ms Berg states since she was in her 20's she would control her wt loss by forcing herself to vomit after eating so she could eat more. Denies having an eating disorder and denies recent forced vomiting. Denies any current exercise routine and states she does not like to exercise. Her goal wt is 115. States she has a good appetite but limits her intake. She says she has a bad sweet tooth especially for chocolate. Cervical vertebral fracture 05/07/201105/16 Muscle spasms of head or neck 08/26/2009 Pain in joint, pelvic region and thigh 0 06/01/2016 Other chronic cystitis 12/21/2008 7 Hypertonicity of bladder 12/21/2008 017 PLANTAR Fasciitis 08/14/2006 06/01/2016 Sprain of neck 04/17/2006 06/01/2016 Rheumatoid arthritis 03/18/2006 06/01/2016 CHOLELITHIASIS SEE ALSO GALL BLADD WITHOUT CHOLECYSTITIS( Without obstruction) 01/11/2006 06/01/2016 HEPATITIS C CARRIER--treated with IFN and ribavirin and is in remission (as of 05/21) 05/29/2005 06/01/2016 Conductive hearing loss of combined types 200506/01/2016 Migraine variant 05/29/2005 06/01/2016 CHRONIC BRONCHITIS NOS--related to smoking 05/2906/01/2016 OSTEOARTHROS NOS-OTHER SITE- -OA vs RA treated with NSAIDs in past. 05/29/2005 06/01/2016 Overview: actonel 2009 start from hx in EPIC, fosamax 2011 started Cleft lip, unspecified 01/24/2005 7 documented as of this encounter (statuses as of 02/22/2022) [facility]10-07-2022 History of Past illness Narrative* Problem Noted Date Resolved Date Chest pain 01/19/2022 01/20/2022 COPD with exacerbation 01/17/2022 Hypokalemia 01/17/2022 01/18/2022 Pancreatitis 08/04/2020 01/18/2022 Chronic pain syndrome 06/27/2015 06/01/2016 Encounter for long-term (current) use of medicat ions 11/15/2014 06/01/2016 Lumbago 09/02/2014 06/01/2016 Cataract of both eyes 10/26/2013 06/01/2016 Overview: [facility] 10/22/2013 - Combined forms of age-related cataract of both eyes Eating disorder 02/16/2013 06/01/2016 Cervical strain 01/22/2013 06/01/2016 Cervical disc disease 01/22/2013 06/01/2016 Xerosis cutis 09/07/2012 06/01/2016 Arthritis of left knee 02/15/2012 7 Leg ulcer, left 02/15/2012 06/01/2016 Closed fracture of lateral malleolus 11/23/2011 06/01/2016 Contusion of toe 11/23/2011 06/01/2016 Capsulitis 11/06/2011 06/01/2016 Pruritus of forearm 09/07/2011 06/01/2016 Pruritus - disorder 09/07/2011 06/01/2016 Eczematous dermatitis 09/07/2011 06/01/2016 Lichenoid dermatitis 09/07/2011 06/01/2016 Excoriation 09/07/2011 06/01/2016 Nasal septal deviation 08/29/2011 7 Orbital mass 07/15/2011 06/01/2016 Obesity 05/09/2011 01/14/2014 Last Assessment & Plan: Pt disappointed in the amount of weight loss she has had over the past month while on the prescription Adipex 37.5mg daily. States she eats oatmeal in the morning every other day and at night has 1/3 of a bag of kettlecorn popcorn. States she does not eat anything else throughout the day. Ms Berg states since she was in her 20's she would control her wt loss by forcing herself to vomit after eating so she could eat more. Denies having an eating disorder and denies recent forced vomiting. Denies any current exercise routine and states she does not like to exercise. Her goal wt is 115. States she has a good appetite but limits her intake. She says she has a bad sweet tooth especially for chocolate. Cervical vertebral fracture 05/07/201105/16 Muscle spasms of head or neck 08/26/2009 Pain in joint, pelvic region and thigh 0 06/01/2016 Other chronic cystitis 12/21/2008 7 Hypertonicity of bladder 12/21/2008 017 PLANTAR Fasciitis 08/14/2006 06/01/2016 Sprain of neck 04/17/2006 06/01/2016 Rheumatoid arthritis 03/18/2006 06/01/2016 CHOLELITHIASIS SEE ALSO GALL BLADD WITHOUT CHOLECYSTITIS( Without obstruction) 01/11/2006 06/01/2016 HEPATITIS C CARRIER--treated with IFN and ribavirin and is in remission (as of 05/21) 05/29/2005 06/01/2016 Conductive hearing loss of combined types 200506/01/2016 Migraine variant 05/29/2005 06/01/2016 CHRONIC BRONCHITIS NOS--related to smoking 05/2906/01/2016 OSTEOARTHROS NOS-OTHER SITE- -OA vs RA treated with NSAIDs in past. 05/29/2005 06/01/2016 Overview: actonel 2009 start from hx in EPIC, fosamax 2011 started Cleft lip, unspecified 01/24/2005 7 documented as of this encounter (statuses as of 02/23/2022) [facility]10-07-2022 History of Past illness Narrative* Problem Noted Date Resolved Date Chest pain 01/19/2022 01/20/2022 COPD with exacerbation 01/17/2022 Hypokalemia 01/17/2022 01/18/2022 Pancreatitis 08/04/2020 01/18/2022 Chronic pain syndrome 06/27/2015 06/01/2016 Encounter for long-term (current) use of medicat ions 11/15/2014 06/01/2016 Lumbago 09/02/2014 06/01/2016 Cataract of both eyes 10/26/2013 06/01/2016 Overview: [facility] 10/22/2013 - Combined forms of age-related cataract of both eyes Eating disorder 02/16/2013 06/01/2016 Cervical strain 01/22/2013 06/01/2016 Cervical disc disease 01/22/2013 06/01/2016 Xerosis cutis 09/07/2012 06/01/2016 Arthritis of left knee 02/15/2012 7 Leg ulcer, left 02/15/2012 06/01/2016 Closed fracture of lateral malleolus 11/23/2011 06/01/2016 Contusion of toe 11/23/2011 06/01/2016 Capsulitis 11/06/2011 06/01/2016 Pruritus of forearm 09/07/2011 06/01/2016 Pruritus - disorder 09/07/2011 06/01/2016 Eczematous dermatitis 09/07/2011 06/01/2016 Lichenoid dermatitis 09/07/2011 06/01/2016 Excoriation 09/07/2011 06/01/2016 Nasal septal deviation 08/29/2011 7 Orbital mass 07/15/2011 06/01/2016 Obesity 05/09/2011 01/14/2014 Last Assessment & Plan: Pt disappointed in the amount of weight loss she has had over the past month while on the prescription Adipex 37.5mg daily. States she eats oatmeal in the morning every other day and at night has 1/3 of a bag of kettlecorn popcorn. States she does not eat anything else throughout the day. Ms Berg states since she was in her 20's she would control her wt loss by forcing herself to vomit after eating so she could eat more. Denies having an eating disorder and denies recent forced vomiting. Denies any current exercise routine and states she does not like to exercise. Her goal wt is 115. States she has a good appetite but limits her intake. She says she has a bad sweet tooth especially for chocolate. Cervical vertebral fracture 05/07/201105/16 Muscle spasms of head or neck 08/26/2009 Pain in joint, pelvic region and thigh 0 06/01/2016 Other chronic cystitis 12/21/2008 7 Hypertonicity of bladder 12/21/2008 017 PLANTAR Fasciitis 08/14/2006 06/01/2016 Sprain of neck 04/17/2006 06/01/2016 Rheumatoid arthritis 03/18/2006 06/01/2016 CHOLELITHIASIS SEE ALSO GALL BLADD WITHOUT CHOLECYSTITIS( Without obstruction) 01/11/2006 06/01/2016 HEPATITIS C CARRIER--treated with IFN and ribavirin and is in remission (as of 05/21) 05/29/2005 06/01/2016 Conductive hearing loss of combined types 200506/01/2016 Migraine variant 05/29/2005 06/01/2016 CHRONIC BRONCHITIS NOS--related to smoking 05/2906/01/2016 OSTEOARTHROS NOS-OTHER SITE- -OA vs RA treated with NSAIDs in past. 05/29/2005 06/01/2016 Overview: actonel 2010 start from hx in EPIC, fosamax 2011 started Cleft lip, unspecified 01/24/2005 7 documented as of this encounter (statuses as of 02/27/2022) [facility]10-07-2022 History of Past illness Narrative* Problem Noted Date Resolved Date Chest pain 01/19/2022 01/20/2022 COPD with exacerbation 01/17/2022 Hypokalemia 01/17/2022 01/18/2022 Pancreatitis 08/04/2020 01/18/2022 Chronic pain syndrome 06/27/2015 06/01/2016 Encounter for long-term (current) use of medicat ions 11/15/2014 06/01/2016 Lumbago 09/02/2014 06/01/2016 Cataract of both eyes 10/26/2013 06/01/2016 Overview: [facility] 10/22/2013 - Combined forms of age-related cataract of both eyes Eating disorder 02/16/2013 06/01/2016 Cervical strain 01/22/2013 06/01/2016 Cervical disc disease 01/22/2013 06/01/2016 Xerosis cutis 09/07/2012 06/01/2016 Arthritis of left knee 02/15/2012 7 Leg ulcer, left 02/15/2012 06/01/2016 Closed fracture of lateral malleolus 11/23/2011 06/01/2016 Contusion of toe 11/23/2011 06/01/2016 Capsulitis 11/06/2011 06/01/2016 Pruritus of forearm 09/07/2011 06/01/2016 Pruritus - disorder 09/07/2011 06/01/2016 Eczematous dermatitis 09/07/2011 06/01/2016 Lichenoid dermatitis 09/07/2011 06/01/2016 Excoriation 09/07/2011 06/01/2016 Nasal septal deviation 08/29/2011 7 Orbital mass 07/15/2011 06/01/2016 Obesity 05/09/2011 01/14/2014 Last Assessment & Plan: Pt disappointed in the amount of weight loss she has had over the past month while on the prescription Adipex 37.5mg daily. States she eats oatmeal in the morning every other day and at night has 1/3 of a bag of kettlecorn popcorn. States she does not eat anything else throughout the day. Ms Berg states since she was in her 20's she would control her wt loss by forcing herself to vomit after eating so she could eat more. Denies having an eating disorder and denies recent forced vomiting. Denies any current exercise routine and states she does not like to exercise. Her goal wt is 115. States she has a good appetite but limits her intake. She says she has a bad sweet tooth especially for chocolate. Cervical vertebral fracture 05/07/201105/16 Muscle spasms of head or neck 08/26/2009 Pain in joint, pelvic region and thigh 0 06/01/2016 Other chronic cystitis 12/21/2008 7 Hypertonicity of bladder 12/21/2008 017 PLANTAR Fasciitis 08/14/2006 06/01/2016 Sprain of neck 04/17/2006 06/01/2016 Rheumatoid arthritis 03/18/2006 06/01/2016 CHOLELITHIASIS SEE ALSO GALL BLADD WITHOUT CHOLECYSTITIS( Without obstruction) 01/11/2006 06/01/2016 HEPATITIS C CARRIER--treated with IFN and ribavirin and is in remission (as of 05/21) 05/29/2005 06/01/2016 Conductive hearing loss of combined types 200506/01/2016 Migraine variant 05/29/2005 06/01/2016 CHRONIC BRONCHITIS NOS--related to smoking 05/2906/01/2016 OSTEOARTHROS NOS-OTHER SITE- -OA vs RA treated with NSAIDs in past. 05/29/2005 06/01/2016 Overview: actonel 2010 start from hx in EPIC, fosamax 2011 started Cleft lip, unspecified 01/24/2005 7 documented as of this encounter (statuses as of 02/27/2022) [facility]2022 History of Past illness Narrative* Problem Noted Date Resolved Date Chest pain 01/19/2022 01/20/2022 COPD with exacerbation 01/17/2022 Hypokalemia 01/17/2022 01/18/2022 Pancreatitis 08/04/2020 01/18/2022 Chronic pain syndrome 06/27/2015 06/01/2016 Encounter for long-term (current) use of medicat ions 11/15/2014 06/01/2016 Lumbago 09/02/2014 06/01/2016 Cataract of both eyes 10/26/2013 06/01/2016 Overview: [facility] 10/22/2013 - Combined forms of age-related cataract of both eyes Eating disorder 02/16/2013 06/01/2016 Cervical strain 01/22/2013 06/01/2016 Cervical disc disease 01/22/2013 06/01/2016 Xerosis cutis 09/07/2012 06/01/2016 Arthritis of left knee 02/15/2012 7 Leg ulcer, left 02/15/2012 06/01/2016 Closed fracture of lateral malleolus 11/23/2011 06/01/2016 Contusion of toe 11/23/2011 06/01/2016 Capsulitis 11/06/2011 06/01/2016 Pruritus of forearm 09/07/2011 06/01/2016 Pruritus - disorder 09/07/2011 06/01/2016 Eczematous dermatitis 09/07/2011 06/01/2016 Lichenoid dermatitis 09/07/2011 06/01/2016 Excoriation 09/07/2011 06/01/2016 Nasal septal deviation 08/29/2011 7 Orbital mass 07/15/2011 06/01/2016 Obesity 05/09/2011 01/14/2014 Last Assessment & Plan: Pt disappointed in the amount of weight loss she has had over the past month while on the prescription Adipex 37.5mg daily. States she eats oatmeal in the morning every other day and at night has 1/3 of a bag of kettlecorn popcorn. States she does not eat anything else throughout the day. Ms Berg states since she was in her 20's she would control her wt loss by forcing herself to vomit after eating so she could eat more. Denies having an eating disorder and denies recent forced vomiting. Denies any current exercise routine and states she does not like to exercise. Her goal wt is 115. States she has a good appetite but limits her intake. She says she has a bad sweet tooth especially for chocolate. Cervical vertebral fracture 05/07/201105/16 Muscle spasms of head or neck 08/26/2009 Pain in joint, pelvic region and thigh 0 06/01/2016 Other chronic cystitis 12/21/2008 7 Hypertonicity of bladder 12/21/2008 017 PLANTAR Fasciitis 08/14/2006 06/01/2016 Sprain of neck 04/17/2006 06/01/2016 Rheumatoid arthritis 03/18/2006 06/01/2016 CHOLELITHIASIS SEE ALSO GALL BLADD WITHOUT CHOLECYSTITIS( Without obstruction) 01/11/2006 06/01/2016 HEPATITIS C CARRIER--treated with IFN and ribavirin and is in remission (as of 05/21) 05/29/2005 06/01/2016 Conductive hearing loss of combined types 200506/01/2016 Migraine variant 05/29/2005 06/01/2016 CHRONIC BRONCHITIS NOS--related to smoking 05/2906/01/2016 OSTEOARTHROS NOS-OTHER SITE- -OA vs RA treated with NSAIDs in past. 05/29/2005 06/01/2016 Overview: actonel 2009 start from hx in EPIC, fosamax 2011 started Cleft lip, unspecified 01/24/2005 7 documented as of this encounter (statuses as of 02/28/2022) [facility]2022 History of Past illness Narrative* Problem Noted Date Resolved Date Chest pain 01/19/2022 01/20/2022 COPD with exacerbation 01/17/2022 2 Hypokalemia 01/17/2022 01/18/2022 Pancreatitis 08/04/2020 01/18/2022 Chronic pain syndrome 06/27/2015 06/01/2016 Encounter for long-term (current) use of medicat ions 11/15/2014 06/01/2016 Lumbago 09/02/2014 06/01/2016 Cataract of both eyes 10/26/2013 06/01/2016 Overview: [facility] 10/22/2013 - Combined forms of age-related cataract of both eyes Eating disorder 02/16/2013 06/01/2016 Cervical strain 01/22/2013 06/01/2016 Cervical disc disease 01/22/2013 06/01/2016 Xerosis cutis 09/07/2012 06/01/2016 Arthritis of left knee 02/15/2012 7 Leg ulcer, left 02/15/2012 06/01/2016 Closed fracture of lateral malleolus 11/23/2011 06/01/2016 Contusion of toe 11/23/2011 06/01/2016 Capsulitis 11/06/2011 06/01/2016 Pruritus of forearm 09/07/2011 06/01/2016 Pruritus - disorder 09/07/2011 06/01/2016 Eczematous dermatitis 09/07/2011 06/01/2016 Lichenoid dermatitis 09/07/2011 06/01/2016 Excoriation 09/07/2011 06/01/2016 Nasal septal deviation 08/29/2011 7 Orbital mass 07/15/2011 06/01/2016 Obesity 05/09/2011 01/14/2014 Last Assessment & Plan: Pt disappointed in the amount of weight loss she has had over the past month while on the prescription Adipex 37.5mg daily. States she eats oatmeal in the morning every other day and at night has 1/3 of a bag of kettlecorn popcorn. States she does not eat anything else throughout the day. Ms Berg states since she was in her 20's she would control her wt loss by forcing herself to vomit after eating so she could eat more. Denies having an eating disorder and denies recent forced vomiting. Denies any current exercise routine and states she does not like to exercise. Her goal wt is 115. States she has a good appetite but limits her intake. She says she has a bad sweet tooth especially for chocolate. Cervical vertebral fracture 05/07/201105/16 Muscle spasms of head or neck 08/26/2009 Pain in joint, pelvic region and thigh 0 06/01/2016 Other chronic cystitis 12/21/2008 7 Hypertonicity of bladder 12/21/2008 017 PLANTAR Fasciitis 08/14/2006 06/01/2016 Sprain of neck 04/17/2006 06/01/2016 Rheumatoid arthritis 03/18/2006 06/01/2016 CHOLELITHIASIS SEE ALSO GALL BLADD WITHOUT CHOLECYSTITIS( Without obstruction) 01/11/2006 06/01/2016 HEPATITIS C CARRIER--treated with IFN and ribavirin and is in remission (as of 05/21) 05/29/2005 06/01/2016 Conductive hearing loss of combined types 200506/01/2016 Migraine variant 05/29/2005 06/01/2016 CHRONIC BRONCHITIS NOS--related to smoking 05/2906/01/2016 OSTEOARTHROS NOS-OTHER SITE- -OA vs RA treated with NSAIDs in past. 05/29/2005 06/01/2016 Overview: actonel 2010 start from hx in EPIC, fosamax 2011 started Cleft lip, unspecified 01/24/2005 7 documented as of this encounter (statuses as of 02/28/2022) [facility] History of Past illness Narrative* Problem Noted Date Resolved Date Chest pain 01/19/2022 01/20/2022 COPD with exacerbation 01/17/2022 Hypokalemia 01/17/2022 01/18/2022 Pancreatitis 08/04/2020 01/18/2022 Chronic pain syndrome 06/27/2015 06/01/2016 Encounter for long-term (current) use of medicat ions 11/15/2014 06/01/2016 Lumbago 09/02/2014 06/01/2016 Cataract of both eyes 10/26/2013 06/01/2016 Overview: [facility] 10/22/2013 - Combined forms of age-related cataract of both eyes Eating disorder 02/16/2013 06/01/2016 Cervical strain 01/22/2013 06/01/2016 Cervical disc disease 01/22/2013 06/01/2016 Xerosis cutis 09/07/2012 06/01/2016 Arthritis of left knee 02/15/2012 7 Leg ulcer, left 02/15/2012 06/01/2016 Closed fracture of lateral malleolus 11/23/2011 06/01/2016 Contusion of toe 11/23/2011 06/01/2016 Capsulitis 11/06/2011 06/01/2016 Pruritus of forearm 09/07/2011 06/01/2016 Pruritus - disorder 09/07/2011 06/01/2016 Eczematous dermatitis 09/07/2011 06/01/2016 Lichenoid dermatitis 09/07/2011 06/01/2016 Excoriation 09/07/2011 06/01/2016 Nasal septal deviation 08/29/2011 7 Orbital mass 07/15/2011 06/01/2016 Obesity 05/09/2011 01/14/2014 Last Assessment & Plan: Pt disappointed in the amount of weight loss she has had over the past month while on the prescription Adipex 37.5mg daily. States she eats oatmeal in the morning every other day and at night has 1/3 of a bag of kettlecorn popcorn. States she does not eat anything else throughout the day. Ms Berg states since she was in her 20's she would control her wt loss by forcing herself to vomit after eating so she could eat more. Denies having an eating disorder and denies recent forced vomiting. Denies any current exercise routine and states she does not like to exercise. Her goal wt is 115. States she has a good appetite but limits her intake. She says she has a bad sweet tooth especially for chocolate. Cervical vertebral fracture 05/07/201105/16 Muscle spasms of head or neck 08/26/2009 Pain in joint, pelvic region and thigh 0 06/01/2016 Other chronic cystitis 12/21/2008 7 Hypertonicity of bladder 12/21/2008 02/17/2 017 PLANTAR Fasciitis 08/14/2006 06/01/2016 Sprain of neck 04/17/2006 06/01/2016 Rheumatoid arthritis 03/18/2006 06/01/2016 CHOLELITHIASIS SEE ALSO GALL BLADD WITHOUT CHOLECYSTITIS( Without obstruction) 01/11/2006 06/01/2016 HEPATITIS C CARRIER--treated with IFN and ribavirin and is in remission (as of 05/21) 05/29/2005 06/01/2016 Conductive hearing loss of combined types 200506/01/2016 Migraine variant 05/29/2005 06/01/2016 CHRONIC BRONCHITIS NOS--related to smoking 05/2906/01/2016 OSTEOARTHROS NOS-OTHER SITE- -OA vs RA treated with NSAIDs in past. 05/29/2005 06/01/2016 Overview: actonel 2009 start from hx in EPIC, fosamax 2011 started Cleft lip, unspecified 01/24/2005 7 documented as of this encounter (statuses as of 03/02/2022) [facility] History of Past illness Narrative* Problem Noted Date Resolved Date Chest pain 01/19/2022 01/20/2022 COPD with exacerbation 01/17/2022 Hypokalemia 01/17/2022 01/18/2022 Pancreatitis 08/04/2020 01/18/2022 Chronic pain syndrome 06/27/2015 06/01/2016 Encounter for long-term (current) use of medicat ions 11/15/2014 06/01/2016 Lumbago 09/02/2014 06/01/2016 Cataract of both eyes 10/26/2013 06/01/2016 Overview: [facility] [place] 10/22/2013 - Combined forms of age-related cataract of both eyes Eating disorder 02/16/2013 06/01/2016 Cervical strain 01/22/2013 06/01/2016 Cervical disc disease 01/22/2013 06/01/2016 Xerosis cutis 09/07/2012 06/01/2016 Arthritis of left knee 02/15/2012 7 Leg ulcer, left 02/15/2012 06/01/2016 Closed fracture of lateral malleolus 11/23/2011 06/01/2016 Contusion of toe 11/23/2011 06/01/2016 Capsulitis 11/06/2011 06/01/2016 Pruritus of forearm 09/07/2011 06/01/2016 Pruritus - disorder 09/07/2011 06/01/2016 Eczematous dermatitis 09/07/2011 06/01/2016 Lichenoid dermatitis 09/07/2011 06/01/2016 Excoriation 09/07/2011 06/01/2016 Nasal septal deviation 08/29/2011 7 Orbital mass 07/15/2011 06/01/2016 Obesity 05/09/2011 01/14/2014 Last Assessment & Plan: Pt disappointed in the amount of weight loss she has had over the past month while on the prescription Adipex 37.5mg daily. States she eats oatmeal in the morning every other day and at night has 1/3 of a bag of kettlecorn popcorn. States she does not eat anything else throughout the day. Ms Berg states since she was in her 20's she would control her wt loss by forcing herself to vomit after eating so she could eat more. Denies having an eating disorder and denies recent forced vomiting. Denies any current exercise routine and states she does not like to exercise. Her goal wt is 115. States she has a good appetite but limits her intake. She says she has a bad sweet tooth especially for chocolate. Cervical vertebral fracture 05/07/201105/16 Muscle spasms of head or neck 08/26/2009 Pain in joint, pelvic region and thigh 0 06/01/2016 Other chronic cystitis 12/21/2008 7 Hypertonicity of bladder 12/21/2008 017 PLANTAR Fasciitis 08/14/2006 06/01/2016 Sprain of neck 04/17/2006 06/01/2016 Rheumatoid arthritis 03/18/2006 06/01/2016 CHOLELITHIASIS SEE ALSO GALL BLADD WITHOUT CHOLECYSTITIS( Without obstruction) 01/11/2006 06/01/2016 HEPATITIS C CARRIER--treated with IFN and ribavirin and is in remission (as of 05/21) 05/29/2005 06/01/2016 Conductive hearing loss of combined types 200506/01/2016 Migraine variant 05/29/2005 06/01/2016 CHRONIC BRONCHITIS NOS--related to smoking 05/2906/01/2016 OSTEOARTHROS NOS-OTHER SITE- -OA vs RA treated with NSAIDs in past. 05/29/2005 06/01/2016 Overview: actonel 2010 start from hx in EPIC, fosamax 2011 started Cleft lip, unspecified 01/24/2005 7 documented as of this encounter (statuses as of 03/05/2022) [facility] [facility]10-07-[facility]22 History of Past illness Narrative* Problem Noted Date Resolved Date Chest pain 01/19/2022 01/20/2022 COPD with exacerbation 01/17/2022 Hypokalemia 01/17/2022 01/18/2022 Pancreatitis 08/04/2020 01/18/2022 Chronic pain syndrome 06/27/2015 06/01/2016 Encounter for long-term (current) use of medicat ions 11/15/2014 06/01/2016 Lumbago 09/02/2014 06/01/2016 Cataract of both eyes 10/26/2013 06/01/2016 Overview: [facility] 10/22/2013 - Combined forms of age-related cataract of both eyes Eating disorder 02/16/2013 06/01/2016 Cervical strain 01/22/2013 06/01/2016 Cervical disc disease 01/22/2013 06/01/2016 Xerosis cutis 09/07/2012 06/01/2016 Arthritis of left knee 02/15/2012 7 Leg ulcer, left 02/15/2012 06/01/2016 Closed fracture of lateral malleolus 11/23/2011 06/01/2016 Contusion of toe 11/23/2011 06/01/2016 Capsulitis 11/06/2011 06/01/2016 Pruritus of forearm 09/07/2011 06/01/2016 Pruritus - disorder 09/07/2011 06/01/2016 Eczematous dermatitis 09/07/2011 06/01/2016 Lichenoid dermatitis 09/07/2011 06/01/2016 Excoriation 09/07/2011 06/01/2016 Nasal septal deviation 08/29/2011 7 Orbital mass 07/15/2011 06/01/2016 Obesity 05/09/2011 01/14/2014 Last Assessment & Plan: Pt disappointed in the amount of weight loss she has had over the past month while on the prescription Adipex 37.5mg daily. States she eats oatmeal in the morning every other day and at night has 1/3 of a bag of kettlecorn popcorn. States she does not eat anything else throughout the day. Ms Berg states since she was in her 20's she would control her wt loss by forcing herself to vomit after eating so she could eat more. Denies having an eating disorder and denies recent forced vomiting. Denies any current exercise routine and states she does not like to exercise. Her goal wt is 115. States she has a good appetite but limits her intake. She says she has a bad sweet tooth especially for chocolate. Cervical vertebral fracture 05/07/201105/16 Muscle spasms of head or neck 08/26/2009 Pain in joint, pelvic region and thigh 0 06/01/2016 Other chronic cystitis 12/21/2008 7 Hypertonicity of bladder 12/21/2008 017 PLANTAR Fasciitis 08/14/2006 06/01/2016 Sprain of neck 04/17/2006 06/01/2016 Rheumatoid arthritis 03/18/2006 06/01/2016 CHOLELITHIASIS SEE ALSO GALL BLADD WITHOUT CHOLECYSTITIS( Without obstruction) 01/11/2006 06/01/2016 HEPATITIS C CARRIER--treated with IFN and ribavirin and is in remission (as of 05/21) 05/29/2005 06/01/2016 Conductive hearing loss of combined types 200506/01/2016 Migraine variant 05/29/2005 06/01/2016 CHRONIC BRONCHITIS NOS--related to smoking 05/2906/01/2016 OSTEOARTHROS NOS-OTHER SITE- -OA vs RA treated with NSAIDs in past. 05/29/2005 06/01/2016 Overview: actonel 2009 start from hx in EPIC, fosamax 2011 started Cleft lip, unspecified 01/24/2005 7 documented as of this encounter (statuses as of 03/07/2022) [facility]10-07-2022 History of Past illness Narrative* Problem Noted Date Resolved Date Chest pain 01/19/2022 01/20/2022 COPD with exacerbation 01/17/2022 Hypokalemia 01/17/2022 01/18/2022 Pancreatitis 08/04/2020 01/18/2022 Chronic pain syndrome 06/27/2015 06/01/2016 Encounter for long-term (current) use of medicat ions 11/15/2014 06/01/2016 Lumbago 09/02/2014 06/01/2016 Cataract of both eyes 10/26/2013 06/01/2016 Overview: [facility] 10/22/2013 - Combined forms of age-related cataract of both eyes Eating disorder 02/16/2013 06/01/2016 Cervical strain 01/22/2013 06/01/2016 Cervical disc disease 01/22/2013 06/01/2016 Xerosis cutis 09/07/2012 06/01/2016 Arthritis of left knee 02/15/2012 7 Leg ulcer, left 02/15/2012 06/01/2016 Closed fracture of lateral malleolus 11/23/2011 06/01/2016 Contusion of toe 11/23/2011 06/01/2016 Capsulitis 11/06/2011 06/01/2016 Pruritus of forearm 09/07/2011 06/01/2016 Pruritus - disorder 09/07/2011 06/01/2016 Eczematous dermatitis 09/07/2011 06/01/2016 Lichenoid dermatitis 09/07/2011 06/01/2016 Excoriation 09/07/2011 06/01/2016 Nasal septal deviation 08/29/2011 7 Orbital mass 07/15/2011 06/01/2016 Obesity 05/09/2011 01/14/2014 Last Assessment & Plan: Pt disappointed in the amount of weight loss she has had over the past month while on the prescription Adipex 37.5mg daily. States she eats oatmeal in the morning every other day and at night has 1/3 of a bag of kettlecorn popcorn. States she does not eat anything else throughout the day. Ms Berg states since she was in her 20's she would control her wt loss by forcing herself to vomit after eating so she could eat more. Denies having an eating disorder and denies recent forced vomiting. Denies any current exercise routine and states she does not like to exercise. Her goal wt is 115. States she has a good appetite but limits her intake. She says she has a bad sweet tooth especially for chocolate. Cervical vertebral fracture 05/07/201105/16 Muscle spasms of head or neck 08/26/2009 Pain in joint, pelvic region and thigh 0 06/01/2016 Other chronic cystitis 12/21/2008 7 Hypertonicity of bladder 12/21/2008 017 PLANTAR Fasciitis 08/14/2006 06/01/2016 Sprain of neck 04/17/2006 06/01/2016 Rheumatoid arthritis 03/18/2006 06/01/2016 CHOLELITHIASIS SEE ALSO GALL BLADD WITHOUT CHOLECYSTITIS( Without obstruction) 01/11/2006 06/01/2016 HEPATITIS C CARRIER--treated with IFN and ribavirin and is in remission (as of 05/21) 05/29/2005 06/01/2016 Conductive hearing loss of combined types 200506/01/2016 Migraine variant 05/29/2005 06/01/2016 CHRONIC BRONCHITIS NOS--related to smoking 05/2906/01/2016 OSTEOARTHROS NOS-OTHER SITE- -OA vs RA treated with NSAIDs in past. 05/29/2005 06/01/2016 Overview: actonel 2009 start from hx in EPIC, fosamax 2011 started Cleft lip, unspecified 01/24/2005 7 documented as of this encounter (statuses as of 03/07/2022) [facility]10-07-2022 History of Past illness Narrative* Problem Noted Date Resolved Date Chest pain 01/19/2022 01/20/2022 COPD with exacerbation 01/17/2022 Hypokalemia 01/17/2022 01/18/2022 Pancreatitis 08/04/2020 01/18/2022 Chronic pain syndrome 06/27/2015 06/01/2016 Encounter for long-term (current) use of medicat ions 11/15/2014 06/01/2016 Lumbago 09/02/2014 06/01/2016 Cataract of both eyes 10/26/2013 06/01/2016 Overview: [facility] 10/22/2013 - Combined forms of age-related cataract of both eyes Eating disorder 02/16/2013 06/01/2016 Cervical strain 01/22/2013 06/01/2016 Cervical disc disease 01/22/2013 06/01/2016 Xerosis cutis 09/07/2012 06/01/2016 Arthritis of left knee 02/15/2012 7 Leg ulcer, left 02/15/2012 06/01/2016 Closed fracture of lateral malleolus 11/23/2011 06/01/2016 Contusion of toe 11/23/2011 06/01/2016 Capsulitis 11/06/2011 06/01/2016 Pruritus of forearm 09/07/2011 06/01/2016 Pruritus - disorder 09/07/2011 06/01/2016 Eczematous dermatitis 09/07/2011 06/01/2016 Lichenoid dermatitis 09/07/2011 06/01/2016 Excoriation 09/07/2011 06/01/2016 Nasal septal deviation 08/29/2011 7 Orbital mass 07/15/2011 06/01/2016 Obesity 05/09/2011 01/14/2014 Last Assessment & Plan: Pt disappointed in the amount of weight loss she has had over the past month while on the prescription Adipex 37.5mg daily. States she eats oatmeal in the morning every other day and at night has 1/3 of a bag of kettlecorn popcorn. States she does not eat anything else throughout the day. Ms Berg states since she was in her 20's she would control her wt loss by forcing herself to vomit after eating so she could eat more. Denies having an eating disorder and denies recent forced vomiting. Denies any current exercise routine and states she does not like to exercise. Her goal wt is 115. States she has a good appetite but limits her intake. She says she has a bad sweet tooth especially for chocolate. Cervical vertebral fracture 05/07/201105/16 Muscle spasms of head or neck 08/26/2009 Pain in joint, pelvic region and thigh 0 06/01/2016 Other chronic cystitis 12/21/2008 7 Hypertonicity of bladder 12/21/2008 017 PLANTAR Fasciitis 08/14/2006 06/01/2016 Sprain of neck 04/17/2006 06/01/2016 Rheumatoid arthritis 03/18/2006 06/01/2016 CHOLELITHIASIS SEE ALSO GALL BLADD WITHOUT CHOLECYSTITIS( Without obstruction) 01/11/2006 06/01/2016 HEPATITIS C CARRIER--treated with IFN and ribavirin and is in remission (as of 05/21) 05/29/2005 06/01/2016 Conductive hearing loss of combined types 200506/01/2016 Migraine variant 05/29/2005 06/01/2016 CHRONIC BRONCHITIS NOS--related to smoking 05/2906/01/2016 OSTEOARTHROS NOS-OTHER SITE- -OA vs RA treated with NSAIDs in past. 05/29/2005 06/01/2016 Overview: actonel 2010 start from hx in EPIC, fosamax 2011 started Cleft lip, unspecified 01/24/2005 7 documented as of this encounter (statuses as of 03/09/2022) [facility]10-07-2022 History of Past illness Narrative* Problem Noted Date Resolved Date Chest pain 01/19/2022 01/20/2022 COPD with exacerbation 01/17/2022 Hypokalemia 01/17/2022 01/18/2022 Pancreatitis 08/04/2020 01/18/2022 Chronic pain syndrome 06/27/2015 06/01/2016 Encounter for long-term (current) use of medicat ions 11/15/2014 06/01/2016 Lumbago 09/02/2014 06/01/2016 Cataract of both eyes 10/26/2013 06/01/2016 Overview: [facility] 10/22/2013 - Combined forms of age-related cataract of both eyes Eating disorder 02/16/2013 06/01/2016 Cervical strain 01/22/2013 06/01/2016 Cervical disc disease 01/22/2013 06/01/2016 Xerosis cutis 09/07/2012 06/01/2016 Arthritis of left knee 02/15/2012 7 Leg ulcer, left 02/15/2012 06/01/2016 Closed fracture of lateral malleolus 11/23/2011 06/01/2016 Contusion of toe 11/23/2011 06/01/2016 Capsulitis 11/06/2011 06/01/2016 Pruritus of forearm 09/07/2011 06/01/2016 Pruritus - disorder 09/07/2011 06/01/2016 Eczematous dermatitis 09/07/2011 06/01/2016 Lichenoid dermatitis 09/07/2011 06/01/2016 Excoriation 09/07/2011 06/01/2016 Nasal septal deviation 08/29/2011 7 Orbital mass 07/15/2011 06/01/2016 Obesity 05/09/2011 01/14/2014 Last Assessment & Plan: Pt disappointed in the amount of weight loss she has had over the past month while on the prescription Adipex 37.5mg daily. States she eats oatmeal in the morning every other day and at night has 1/3 of a bag of kettlecorn popcorn. States she does not eat anything else throughout the day. Ms Berg states since she was in her 20's she would control her wt loss by forcing herself to vomit after eating so she could eat more. Denies having an eating disorder and denies recent forced vomiting. Denies any current exercise routine and states she does not like to exercise. Her goal wt is 115. States she has a good appetite but limits her intake. She says she has a bad sweet tooth especially for chocolate. Cervical vertebral fracture 05/07/201105/16 Muscle spasms of head or neck 08/26/2009 Pain in joint, pelvic region and thigh 0 06/01/2016 Other chronic cystitis 12/21/2008 7 Hypertonicity of bladder 12/21/2008 017 PLANTAR Fasciitis 08/14/2006 06/01/2016 Sprain of neck 04/17/2006 06/01/2016 Rheumatoid arthritis 03/18/2006 06/01/2016 CHOLELITHIASIS SEE ALSO GALL BLADD WITHOUT CHOLECYSTITIS( Without obstruction) 01/11/2006 06/01/2016 HEPATITIS C CARRIER--treated with IFN and ribavirin and is in remission (as of 05/21) 05/29/2005 06/01/2016 Conductive hearing loss of combined types 200506/01/2016 Migraine variant 05/29/2005 06/01/2016 CHRONIC BRONCHITIS NOS--related to smoking 05/2906/01/2016 OSTEOARTHROS NOS-OTHER SITE- -OA vs RA treated with NSAIDs in past. 05/29/2005 06/01/2016 Overview: actonel 2009 start from hx in EPIC, fosamax 2011 started Cleft lip, unspecified 01/24/2005 7 documented as of this encounter (statuses as of 03/12/2022) [facility]10-07-2022 History of Past illness Narrative* Problem Noted Date Resolved Date Chest pain 01/19/2022 01/20/2022 COPD with exacerbation 01/17/2022 Hypokalemia 01/17/2022 01/18/2022 Pancreatitis 08/04/2020 01/18/2022 Chronic pain syndrome 06/27/2015 06/01/2016 Encounter for long-term (current) use of medicat ions 11/15/2014 06/01/2016 Lumbago 09/02/2014 06/01/2016 Cataract of both eyes 10/26/2013 06/01/2016 Overview: [facility] [place] 10/22/2013 - Combined forms of age-related cataract of both eyes Eating disorder 02/16/2013 06/01/2016 Cervical strain 01/22/2013 06/01/2016 Cervical disc disease 01/22/2013 06/01/2016 Xerosis cutis 09/07/2012 06/01/2016 Arthritis of left knee 02/15/2012 7 Leg ulcer, left 02/15/2012 06/01/2016 Closed fracture of lateral malleolus 11/23/2011 06/01/2016 Contusion of toe 11/23/2011 06/01/2016 Capsulitis 11/06/2011 06/01/2016 Pruritus of forearm 09/07/2011 06/01/2016 Pruritus - disorder 09/07/2011 06/01/2016 Eczematous dermatitis 09/07/2011 06/01/2016 Lichenoid dermatitis 09/07/2011 06/01/2016 Excoriation 09/07/2011 06/01/2016 Nasal septal deviation 08/29/2011 7 Orbital mass 07/15/2011 06/01/2016 Obesity 05/09/2011 01/14/2014 Last Assessment & Plan: Pt disappointed in the amount of weight loss she has had over the past month while on the prescription Adipex 37.5mg daily. States she eats oatmeal in the morning every other day and at night has 1/3 of a bag of kettlecorn popcorn. States she does not eat anything else throughout the day. Ms Berg states since she was in her 20's she would control her wt loss by forcing herself to vomit after eating so she could eat more. Denies having an eating disorder and denies recent forced vomiting. Denies any current exercise routine and states she does not like to exercise. Her goal wt is 115. States she has a good appetite but limits her intake. She says she has a bad sweet tooth especially for chocolate. Cervical vertebral fracture 05/07/201105/16 Muscle spasms of head or neck 08/26/2009 Pain in joint, pelvic region and thigh 0 06/01/2016 Other chronic cystitis 12/21/2008 7 Hypertonicity of bladder 12/21/2008 017 PLANTAR Fasciitis 08/14/2006 06/01/2016 Sprain of neck 04/17/2006 06/01/2016 Rheumatoid arthritis 03/18/2006 06/01/2016 CHOLELITHIASIS SEE ALSO GALL BLADD WITHOUT CHOLECYSTITIS( Without obstruction) 01/11/2006 06/01/2016 HEPATITIS C CARRIER--treated with IFN and ribavirin and is in remission (as of 05/21) 05/29/2005 06/01/2016 Conductive hearing loss of combined types 200506/01/2016 Migraine variant 05/29/2005 06/01/2016 CHRONIC BRONCHITIS NOS--related to smoking 05/2906/01/2016 OSTEOARTHROS NOS-OTHER SITE- -OA vs RA treated with NSAIDs in past. 05/29/2005 06/01/2016 Overview: actonel 2010 start from hx in EPIC, fosamax 2011 started Cleft lip, unspecified 01/24/2005 7 documented as of this encounter (statuses as of 03/13/2022) [facility]10-07-2022 History of Past illness Narrative* Problem Noted Date Resolved Date Chest pain 01/19/2022 01/20/2022 COPD with exacerbation 01/17/2022 Hypokalemia 01/17/2022 01/18/2022 Pancreatitis 08/04/2020 01/18/2022 Chronic pain syndrome 06/27/2015 06/01/2016 Encounter for long-term (current) use of medicat ions 11/15/2014 06/01/2016 Lumbago 09/02/2014 06/01/2016 Cataract of both eyes 10/26/2013 06/01/2016 Overview: [facility] 10/22/2013 - Combined forms of age-related cataract of both eyes Eating disorder 02/16/2013 06/01/2016 Cervical strain 01/22/2013 06/01/2016 Cervical disc disease 01/22/2013 06/01/2016 Xerosis cutis 09/07/2012 06/01/2016 Arthritis of left knee 02/15/2012 7 Leg ulcer, left 02/15/2012 06/01/2016 Closed fracture of lateral malleolus 11/23/2011 06/01/2016 Contusion of toe 11/23/2011 06/01/2016 Capsulitis 11/06/2011 06/01/2016 Pruritus of forearm 09/07/2011 06/01/2016 Pruritus - disorder 09/07/2011 06/01/2016 Eczematous dermatitis 09/07/2011 06/01/2016 Lichenoid dermatitis 09/07/2011 06/01/2016 Excoriation 09/07/2011 06/01/2016 Nasal septal deviation 08/29/2011 7 Orbital mass 07/15/2011 06/01/2016 Obesity 05/09/2011 01/14/2014 Last Assessment & Plan: Pt disappointed in the amount of weight loss she has had over the past month while on the prescription Adipex 37.5mg daily. States she eats oatmeal in the morning every other day and at night has 1/3 of a bag of kettlecorn popcorn. States she does not eat anything else throughout the day. Ms Berg states since she was in her 20's she would control her wt loss by forcing herself to vomit after eating so she could eat more. Denies having an eating disorder and denies recent forced vomiting. Denies any current exercise routine and states she does not like to exercise. Her goal wt is 115. States she has a good appetite but limits her intake. She says she has a bad sweet tooth especially for chocolate. Cervical vertebral fracture 05/07/201105/16 Muscle spasms of head or neck 08/26/2009 Pain in joint, pelvic region and thigh 0 06/01/2016 Other chronic cystitis 12/21/2008 7 Hypertonicity of bladder 12/21/2008 017 PLANTAR Fasciitis 08/14/2006 06/01/2016 Sprain of neck 04/17/2006 06/01/2016 Rheumatoid arthritis 03/18/2006 06/01/2016 CHOLELITHIASIS SEE ALSO GALL BLADD WITHOUT CHOLECYSTITIS( Without obstruction) 01/11/2006 06/01/2016 HEPATITIS C CARRIER--treated with IFN and ribavirin and is in remission (as of 05/21) 05/29/2005 06/01/2016 Conductive hearing loss of combined types 200506/01/2016 Migraine variant 05/29/2005 06/01/2016 CHRONIC BRONCHITIS NOS--related to smoking 05/2906/01/2016 OSTEOARTHROS NOS-OTHER SITE- -OA vs RA treated with NSAIDs in past. 05/29/2005 06/01/2016 Overview: actonel 2009 start from hx in EPIC, fosamax 2011 started Cleft lip, unspecified 01/24/2005 7 documented as of this encounter (statuses as of 03/14/2022) [facility]10-07-2022 History of Past illness Narrative* Problem Noted Date Resolved Date Chest pain 01/19/2022 01/20/2022 COPD with exacerbation 01/17/2022 Hypokalemia 01/17/2022 01/18/2022 Pancreatitis 08/04/2020 01/18/2022 Chronic pain syndrome 06/27/2015 06/01/2016 Encounter for long-term (current) use of medicat ions 11/15/2014 06/01/2016 Lumbago 09/02/2014 06/01/2016 Cataract of both eyes 10/26/2013 06/01/2016 Overview: [facility] 10/22/2013 - Combined forms of age-related cataract of both eyes Eating disorder 02/16/2013 06/01/2016 Cervical strain 01/22/2013 06/01/2016 Cervical disc disease 01/22/2013 06/01/2016 Xerosis cutis 09/07/2012 06/01/2016 Arthritis of left knee 02/15/2012 7 Leg ulcer, left 02/15/2012 06/01/2016 Closed fracture of lateral malleolus 11/23/2011 06/01/2016 Contusion of toe 11/23/2011 06/01/2016 Capsulitis 11/06/2011 06/01/2016 Pruritus of forearm 09/07/2011 06/01/2016 Pruritus - disorder 09/07/2011 06/01/2016 Eczematous dermatitis 09/07/2011 06/01/2016 Lichenoid dermatitis 09/07/2011 06/01/2016 Excoriation 09/07/2011 06/01/2016 Nasal septal deviation 08/29/2011 7 Orbital mass 07/15/2011 06/01/2016 Obesity 05/09/2011 01/14/2014 Last Assessment & Plan: Pt disappointed in the amount of weight loss she has had over the past month while on the prescription Adipex 37.5mg daily. States she eats oatmeal in the morning every other day and at night has 1/3 of a bag of kettlecorn popcorn. States she does not eat anything else throughout the day. Ms Berg states since she was in her 20's she would control her wt loss by forcing herself to vomit after eating so she could eat more. Denies having an eating disorder and denies recent forced vomiting. Denies any current exercise routine and states she does not like to exercise. Her goal wt is 115. States she has a good appetite but limits her intake. She says she has a bad sweet tooth especially for chocolate. Cervical vertebral fracture 05/07/201105/16 Muscle spasms of head or neck 08/26/2009 Pain in joint, pelvic region and thigh 0 06/01/2016 Other chronic cystitis 12/21/2008 7 Hypertonicity of bladder 12/21/2008 017 PLANTAR Fasciitis 08/14/2006 06/01/2016 Sprain of neck 04/17/2006 06/01/2016 Rheumatoid arthritis 03/18/2006 06/01/2016 CHOLELITHIASIS SEE ALSO GALL BLADD WITHOUT CHOLECYSTITIS( Without obstruction) 01/11/2006 06/01/2016 HEPATITIS C CARRIER--treated with IFN and ribavirin and is in remission (as of 05/21) 05/29/2005 06/01/2016 Conductive hearing loss of combined types 200506/01/2016 Migraine variant 05/29/2005 06/01/2016 CHRONIC BRONCHITIS NOS--related to smoking 05/2906/01/2016 OSTEOARTHROS NOS-OTHER SITE- -OA vs RA treated with NSAIDs in past. 05/29/2005 06/01/2016 Overview: actonel 2009 start from hx in EPIC, fosamax 2011 started Cleft lip, unspecified 01/24/2005 7 documented as of this encounter (statuses as of 03/19/2022) [facility]10-[facility]22 History of Past illness Narrative* Problem Noted Date Resolved Date Chest pain 01/19/2022 01/20/2022 COPD with exacerbation 01/17/2022 Hypokalemia 01/17/2022 01/18/2022 Pancreatitis 08/04/2020 01/18/2022 Chronic pain syndrome 06/27/2015 06/01/2016 Encounter for long-term (current) use of medicat ions 11/15/2014 06/01/2016 Lumbago 09/02/2014 06/01/2016 Cataract of both eyes 10/26/2013 06/01/2016 Overview: [facility] 10/22/2013 - Combined forms of age-related cataract of both eyes Eating disorder 02/16/2013 06/01/2016 Cervical strain 01/22/2013 06/01/2016 Cervical disc disease 01/22/2013 06/01/2016 Xerosis cutis 09/07/2012 06/01/2016 Arthritis of left knee 02/15/2012 7 Leg ulcer, left 02/15/2012 06/01/2016 Closed fracture of lateral malleolus 11/23/2011 06/01/2016 Contusion of toe 11/23/2011 06/01/2016 Capsulitis 11/06/2011 06/01/2016 Pruritus of forearm 09/07/2011 06/01/2016 Pruritus - disorder 09/07/2011 06/01/2016 Eczematous dermatitis 09/07/2011 06/01/2016 Lichenoid dermatitis 09/07/2011 06/01/2016 Excoriation 09/07/2011 06/01/2016 Nasal septal deviation 08/29/2011 7 Orbital mass 07/15/2011 06/01/2016 Obesity 05/09/2011 01/14/2014 Last Assessment & Plan: Pt disappointed in the amount of weight loss she has had over the past month while on the prescription Adipex 37.5mg daily. States she eats oatmeal in the morning every other day and at night has 1/3 of a bag of kettlecorn popcorn. States she does not eat anything else throughout the day. Ms Berg states since she was in her 20's she would control her wt loss by forcing herself to vomit after eating so she could eat more. Denies having an eating disorder and denies recent forced vomiting. Denies any current exercise routine and states she does not like to exercise. Her goal wt is 115. States she has a good appetite but limits her intake. She says she has a bad sweet tooth especially for chocolate. Cervical vertebral fracture 05/07/201105/16 Muscle spasms of head or neck 08/26/2009 Pain in joint, pelvic region and thigh 0 06/01/2016 Other chronic cystitis 12/21/2008 7 Hypertonicity of bladder 12/21/2008 017 PLANTAR Fasciitis 08/14/2006 06/01/2016 Sprain of neck 04/17/2006 06/01/2016 Rheumatoid arthritis 03/18/2006 06/01/2016 CHOLELITHIASIS SEE ALSO GALL BLADD WITHOUT CHOLECYSTITIS( Without obstruction) 01/11/2006 06/01/2016 HEPATITIS C CARRIER--treated with IFN and ribavirin and is in remission (as of 05/21) 05/29/2005 06/01/2016 Conductive hearing loss of combined types 200506/01/2016 Migraine variant 05/29/2005 06/01/2016 CHRONIC BRONCHITIS NOS--related to smoking 05/2906/01/2016 OSTEOARTHROS NOS-OTHER SITE- -OA vs RA treated with NSAIDs in past. 05/29/2005 06/01/2016 Overview: actonel 2010 start from hx in EPIC, fosamax 2011 started Cleft lip, unspecified 01/24/2005 7 documented as of this encounter (statuses as of 03/19/2022) [facility]22 History of Past illness Narrative* Problem Noted Date Resolved Date Chest pain 01/19/2022 01/20/2022 COPD with exacerbation 01/17/2022 Hypokalemia 01/17/2022 01/18/2022 Pancreatitis 08/04/2020 01/18/2022 Chronic pain syndrome 06/27/2015 06/01/2016 Encounter for long-term (current) use of medicat ions 11/15/2014 06/01/2016 Lumbago 09/02/2014 06/01/2016 Cataract of both eyes 10/26/2013 06/01/2016 Overview: [facility] 10/22/2013 - Combined forms of age-related cataract of both eyes Eating disorder 02/16/2013 06/01/2016 Cervical strain 01/22/2013 06/01/2016 Cervical disc disease 01/22/2013 06/01/2016 Xerosis cutis 09/07/2012 06/01/2016 Arthritis of left knee 02/15/2012 7 Leg ulcer, left 02/15/2012 06/01/2016 Closed fracture of lateral malleolus 11/23/2011 06/01/2016 Contusion of toe 11/23/2011 06/01/2016 Capsulitis 11/06/2011 06/01/2016 Pruritus of forearm 09/07/2011 06/01/2016 Pruritus - disorder 09/07/2011 06/01/2016 Eczematous dermatitis 09/07/2011 06/01/2016 Lichenoid dermatitis 09/07/2011 06/01/2016 Excoriation 09/07/2011 06/01/2016 Nasal septal deviation 08/29/2011 7 Orbital mass 07/15/2011 06/01/2016 Obesity 05/09/2011 01/14/2014 Last Assessment & Plan: Pt disappointed in the amount of weight loss she has had over the past month while on the prescription Adipex 37.5mg daily. States she eats oatmeal in the morning every other day and at night has 1/3 of a bag of kettlecorn popcorn. States she does not eat anything else throughout the day. Ms Berg states since she was in her 20's she would control her wt loss by forcing herself to vomit after eating so she could eat more. Denies having an eating disorder and denies recent forced vomiting. Denies any current exercise routine and states she does not like to exercise. Her goal wt is 115. States she has a good appetite but limits her intake. She says she has a bad sweet tooth especially for chocolate. Cervical vertebral fracture 05/07/201105/16 Muscle spasms of head or neck 08/26/2009 Pain in joint, pelvic region and thigh 0 06/01/2016 Other chronic cystitis 12/21/2008 7 Hypertonicity of bladder 12/21/2008 017 PLANTAR Fasciitis 08/14/2006 06/01/2016 Sprain of neck 04/17/2006 06/01/2016 Rheumatoid arthritis 03/18/2006 06/01/2016 CHOLELITHIASIS SEE ALSO GALL BLADD WITHOUT CHOLECYSTITIS( Without obstruction) 01/11/2006 06/01/2016 HEPATITIS C CARRIER--treated with IFN and ribavirin and is in remission (as of 05/21) 05/29/2005 06/01/2016 Conductive hearing loss of combined types 200506/01/2016 Migraine variant 05/29/2005 06/01/2016 CHRONIC BRONCHITIS NOS--related to smoking 05/2906/01/2016 OSTEOARTHROS NOS-OTHER SITE- -OA vs RA treated with NSAIDs in past. 05/29/2005 06/01/2016 Overview: actonel 2010 start from hx in EPIC, fosamax 2011 started Cleft lip, unspecified 01/24/2005 7 documented as of this encounter (statuses as of 03/19/2022) [facility]10-07-2022 History of Past illness Narrative* Problem Noted Date Resolved Date Chest pain 01/19/2022 01/20/2022 COPD with exacerbation 01/17/2022 Hypokalemia 01/17/2022 01/18/2022 Pancreatitis 08/04/2020 01/18/2022 Chronic pain syndrome 06/27/2015 06/01/2016 Encounter for long-term (current) use of medicat ions 11/15/2014 06/01/2016 Lumbago 09/02/2014 06/01/2016 Cataract of both eyes 10/26/2013 06/01/2016 Overview: [facility] 10/22/2013 - Combined forms of age-related cataract of both eyes Eating disorder 02/16/2013 06/01/2016 Cervical strain 01/22/2013 06/01/2016 Cervical disc disease 01/22/2013 06/01/2016 Xerosis cutis 09/07/2012 06/01/2016 Arthritis of left knee 02/15/2012 7 Leg ulcer, left 02/15/2012 06/01/2016 Closed fracture of lateral malleolus 11/23/2011 06/01/2016 Contusion of toe 11/23/2011 06/01/2016 Capsulitis 11/06/2011 06/01/2016 Pruritus of forearm 09/07/2011 06/01/2016 Pruritus - disorder 09/07/2011 06/01/2016 Eczematous dermatitis 09/07/2011 06/01/2016 Lichenoid dermatitis 09/07/2011 06/01/2016 Excoriation 09/07/2011 06/01/2016 Nasal septal deviation 08/29/2011 7 Orbital mass 07/15/2011 06/01/2016 Obesity 05/09/2011 01/14/2014 Last Assessment & Plan: Pt disappointed in the amount of weight loss she has had over the past month while on the prescription Adipex 37.5mg daily. States she eats oatmeal in the morning every other day and at night has 1/3 of a bag of kettlecorn popcorn. States she does not eat anything else throughout the day. Ms Berg states since she was in her 20's she would control her wt loss by forcing herself to vomit after eating so she could eat more. Denies having an eating disorder and denies recent forced vomiting. Denies any current exercise routine and states she does not like to exercise. Her goal wt is 115. States she has a good appetite but limits her intake. She says she has a bad sweet tooth especially for chocolate. Cervical vertebral fracture 05/07/201105/16 Muscle spasms of head or neck 08/26/2009 Pain in joint, pelvic region and thigh 0 06/01/2016 Other chronic cystitis 12/21/2008 7 Hypertonicity of bladder 12/21/2008 017 PLANTAR Fasciitis 08/14/2006 06/01/2016 Sprain of neck 04/17/2006 06/01/2016 Rheumatoid arthritis 03/18/2006 06/01/2016 CHOLELITHIASIS SEE ALSO GALL BLADD WITHOUT CHOLECYSTITIS( Without obstruction) 01/11/2006 06/01/2016 HEPATITIS C CARRIER--treated with IFN and ribavirin and is in remission (as of 05/21) 05/29/2005 06/01/2016 Conductive hearing loss of combined types 200506/01/2016 Migraine variant 05/29/2005 06/01/2016 CHRONIC BRONCHITIS NOS--related to smoking 05/2906/01/2016 OSTEOARTHROS NOS-OTHER SITE- -OA vs RA treated with NSAIDs in past. 05/29/2005 06/01/2016 Overview: actonel 2010 start from hx in EPIC, fosamax 2011 started Cleft lip, unspecified 01/24/2005 7 documented as of this encounter (statuses as of 04/08/2022) [facility]10-07-2022 History of Past illness Narrative* Problem Noted Date Resolved Date Chest pain 01/19/2022 01/20/2022 COPD with exacerbation 01/17/2022 Hypokalemia 01/17/2022 01/18/2022 Pancreatitis 08/04/2020 01/18/2022 Chronic pain syndrome 06/27/2015 06/01/2016 Encounter for long-term (current) use of medicat ions 11/15/2014 06/01/2016 Lumbago 09/02/2014 06/01/2016 Cataract of both eyes 10/26/2013 06/01/2016 Overview: [facility] 10/22/2013 - Combined forms of age-related cataract of both eyes Eating disorder 02/16/2013 06/01/2016 Cervical strain 01/22/2013 06/01/2016 Cervical disc disease 01/22/2013 06/01/2016 Xerosis cutis 09/07/2012 06/01/2016 Arthritis of left knee 02/15/2012 7 Leg ulcer, left 02/15/2012 06/01/2016 Closed fracture of lateral malleolus 11/23/2011 06/01/2016 Contusion of toe 11/23/2011 06/01/2016 Capsulitis 11/06/2011 06/01/2016 Pruritus of forearm 09/07/2011 06/01/2016 Pruritus - disorder 09/07/2011 06/01/2016 Eczematous dermatitis 09/07/2011 06/01/2016 Lichenoid dermatitis 09/07/2011 06/01/2016 Excoriation 09/07/2011 06/01/2016 Nasal septal deviation 08/29/2011 7 Orbital mass 07/15/2011 06/01/2016 Obesity 05/09/2011 01/14/2014 Last Assessment & Plan: Pt disappointed in the amount of weight loss she has had over the past month while on the prescription Adipex 37.5mg daily. States she eats oatmeal in the morning every other day and at night has 1/3 of a bag of kettlecorn popcorn. States she does not eat anything else throughout the day. Ms Berg states since she was in her 20's she would control her wt loss by forcing herself to vomit after eating so she could eat more. Denies having an eating disorder and denies recent forced vomiting. Denies any current exercise routine and states she does not like to exercise. Her goal wt is 115. States she has a good appetite but limits her intake. She says she has a bad sweet tooth especially for chocolate. Cervical vertebral fracture 05/07/201105/16 Muscle spasms of head or neck 08/26/2009 Pain in joint, pelvic region and thigh 0 06/01/2016 Other chronic cystitis 12/21/2008 7 Hypertonicity of bladder 12/21/2008 017 PLANTAR Fasciitis 08/14/2006 06/01/2016 Sprain of neck 04/17/2006 06/01/2016 Rheumatoid arthritis 03/18/2006 06/01/2016 CHOLELITHIASIS SEE ALSO GALL BLADD WITHOUT CHOLECYSTITIS( Without obstruction) 01/11/2006 06/01/2016 HEPATITIS C CARRIER--treated with IFN and ribavirin and is in remission (as of 05/21) 05/29/2005 06/01/2016 Conductive hearing loss of combined types 200506/01/2016 Migraine variant 05/29/2005 06/01/2016 CHRONIC BRONCHITIS NOS--related to smoking 05/2906/01/2016 OSTEOARTHROS NOS-OTHER SITE- -OA vs RA treated with NSAIDs in past. 05/29/2005 06/01/2016 Overview: actonel 2009 start from hx in EPIC, fosamax 2011 started Cleft lip, unspecified 01/24/2005 7 documented as of this encounter (statuses as of 05/08/2022) [facility]10-07-2022 History of Past illness Narrative* Problem Noted Date Resolved Date Chest pain 01/19/2022 01/20/2022 COPD with exacerbation 01/17/2022 2 Hypokalemia 01/17/2022 01/18/2022 Pancreatitis 08/04/2020 01/18/2022 Chronic pain syndrome 06/27/2015 06/01/2016 Encounter for long-term (current) use of medicat ions 11/15/2014 06/01/2016 Lumbago 09/02/2014 06/01/2016 Cataract of both eyes 10/26/2013 06/01/2016 Overview: [facility] 10/22/2013 - Combined forms of age-related cataract of both eyes Eating disorder 02/16/2013 06/01/2016 Cervical strain 01/22/2013 06/01/2016 Cervical disc disease 01/22/2013 06/01/2016 Xerosis cutis 09/07/2012 06/01/2016 Arthritis of left knee 02/15/2012 7 Leg ulcer, left 02/15/2012 06/01/2016 Closed fracture of lateral malleolus 11/23/2011 06/01/2016 Contusion of toe 11/23/2011 06/01/2016 Capsulitis 11/06/2011 06/01/2016 Pruritus of forearm 09/07/2011 06/01/2016 Pruritus - disorder 09/07/2011 06/01/2016 Eczematous dermatitis 09/07/2011 06/01/2016 Lichenoid dermatitis 09/07/2011 06/01/2016 Excoriation 09/07/2011 06/01/2016 Nasal septal deviation 08/29/2011 7 Orbital mass 07/15/2011 06/01/2016 Obesity 05/09/2011 01/14/2014 Last Assessment & Plan: Pt disappointed in the amount of weight loss she has had over the past month while on the prescription Adipex 37.5mg daily. States she eats oatmeal in the morning every other day and at night has 1/3 of a bag of kettlecorn popcorn. States she does not eat anything else throughout the day. Ms Berg states since she was in her 20's she would control her wt loss by forcing herself to vomit after eating so she could eat more. Denies having an eating disorder and denies recent forced vomiting. Denies any current exercise routine and states she does not like to exercise. Her goal wt is 115. States she has a good appetite but limits her intake. She says she has a bad sweet tooth especially for chocolate. Cervical vertebral fracture 05/07/201105/16 Muscle spasms of head or neck 08/26/2009 Pain in joint, pelvic region and thigh 0 06/01/2016 Other chronic cystitis 12/21/2008 7 Hypertonicity of bladder 12/21/2008 017 PLANTAR Fasciitis 08/14/2006 06/01/2016 Sprain of neck 04/17/2006 06/01/2016 Rheumatoid arthritis 03/18/2006 06/01/2016 CHOLELITHIASIS SEE ALSO GALL BLADD WITHOUT CHOLECYSTITIS( Without obstruction) 01/11/2006 06/01/2016 HEPATITIS C CARRIER--treated with IFN and ribavirin and is in remission (as of 05/21) 05/29/2005 06/01/2016 Conductive hearing loss of combined types 200506/01/2016 Migraine variant 05/29/2005 06/01/2016 CHRONIC BRONCHITIS NOS--related to smoking 05/2906/01/2016 OSTEOARTHROS NOS-OTHER SITE- -OA vs RA treated with NSAIDs in past. 05/29/2005 06/01/2016 Overview: actonel 2009 start from hx in EPIC, fosamax 2011 started Cleft lip, unspecified 01/24/2005 7 documented as of this encounter (statuses as of 05/16/2022) [facility]10-[facility]2022 History of Past illness Narrative* Problem Noted Date Resolved Date Chest pain 01/19/2022 01/20/2022 COPD with exacerbation 01/17/2022 Hypokalemia 01/17/2022 01/18/2022 Pancreatitis 08/04/2020 01/18/2022 Chronic pain syndrome 06/27/2015 06/01/2016 Encounter for long-term (current) use of medicat ions 11/15/2014 06/01/2016 Lumbago 09/02/2014 06/01/2016 Cataract of both eyes 10/26/2013 06/01/2016 Overview: [facility] 10/22/2013 - Combined forms of age-related cataract of both eyes Eating disorder 02/16/2013 06/01/2016 Cervical strain 01/22/2013 06/01/2016 Cervical disc disease 01/22/2013 06/01/2016 Xerosis cutis 09/07/2012 06/01/2016 Arthritis of left knee 02/15/2012 7 Leg ulcer, left 02/15/2012 06/01/2016 Closed fracture of lateral malleolus 11/23/2011 06/01/2016 Contusion of toe 11/23/2011 06/01/2016 Capsulitis 11/06/2011 06/01/2016 Pruritus of forearm 09/07/2011 06/01/2016 Pruritus - disorder 09/07/2011 06/01/2016 Eczematous dermatitis 09/07/2011 06/01/2016 Lichenoid dermatitis 09/07/2011 06/01/2016 Excoriation 09/07/2011 06/01/2016 Nasal septal deviation 08/29/2011 7 Orbital mass 07/15/2011 06/01/2016 Obesity 05/09/2011 01/14/2014 Last Assessment & Plan: Pt disappointed in the amount of weight loss she has had over the past month while on the prescription Adipex 37.5mg daily. States she eats oatmeal in the morning every other day and at night has 1/3 of a bag of kettlecorn popcorn. States she does not eat anything else throughout the day. Ms Berg states since she was in her 20's she would control her wt loss by forcing herself to vomit after eating so she could eat more. Denies having an eating disorder and denies recent forced vomiting. Denies any current exercise routine and states she does not like to exercise. Her goal wt is 115. States she has a good appetite but limits her intake. She says she has a bad sweet tooth especially for chocolate. Cervical vertebral fracture 05/07/201105/16 Muscle spasms of head or neck 08/26/2009 Pain in joint, pelvic region and thigh 0 06/01/2016 Other chronic cystitis 12/21/2008 7 Hypertonicity of bladder 12/21/2008 017 PLANTAR Fasciitis 08/14/2006 06/01/2016 Sprain of neck 04/17/2006 06/01/2016 Rheumatoid arthritis 03/18/2006 06/01/2016 CHOLELITHIASIS SEE ALSO GALL BLADD WITHOUT CHOLECYSTITIS( Without obstruction) 01/11/2006 06/01/2016 HEPATITIS C CARRIER--treated with IFN and ribavirin and is in remission (as of 05/21) 05/29/2005 06/01/2016 Conductive hearing loss of combined types 200506/01/2016 Migraine variant 05/29/2005 06/01/2016 CHRONIC BRONCHITIS NOS--related to smoking 05/2906/01/2016 OSTEOARTHROS NOS-OTHER SITE- -OA vs RA treated with NSAIDs in past. 05/29/2005 06/01/2016 Overview: actonel 2009 start from hx in EPIC, fosamax 2011 started Cleft lip, unspecified 01/24/2005 7 documented as of this encounter (statuses as of 05/17/2022) [facility]10-07[facility]2022 History of Past illness Narrative* Problem Noted Date Resolved Date Chest pain 01/19/2022 01/20/2022 COPD with exacerbation 01/17/2022 Hypokalemia 01/17/2022 01/18/2022 Pancreatitis 08/04/2020 01/18/2022 Chronic pain syndrome 06/27/2015 06/01/2016 Encounter for long-term (current) use of medicat ions 11/15/2014 06/01/2016 Lumbago 09/02/2014 06/01/2016 Cataract of both eyes 10/26/2013 06/01/2016 Overview: [facility] 10/22/2013 - Combined forms of age-related cataract of both eyes Eating disorder 02/16/2013 06/01/2016 Cervical strain 01/22/2013 06/01/2016 Cervical disc disease 01/22/2013 06/01/2016 Xerosis cutis 09/07/2012 06/01/2016 Arthritis of left knee 02/15/2012 7 Leg ulcer, left 02/15/2012 06/01/2016 Closed fracture of lateral malleolus 11/23/2011 06/01/2016 Contusion of toe 11/23/2011 06/01/2016 Capsulitis 11/06/2011 06/01/2016 Pruritus of forearm 09/07/2011 06/01/2016 Pruritus - disorder 09/07/2011 06/01/2016 Eczematous dermatitis 09/07/2011 06/01/2016 Lichenoid dermatitis 09/07/2011 06/01/2016 Excoriation 09/07/2011 06/01/2016 Nasal septal deviation 08/29/2011 7 Orbital mass 07/15/2011 06/01/2016 Obesity 05/09/2011 01/14/2014 Last Assessment & Plan: Pt disappointed in the amount of weight loss she has had over the past month while on the prescription Adipex 37.5mg daily. States she eats oatmeal in the morning every other day and at night has 1/3 of a bag of kettlecorn popcorn. States she does not eat anything else throughout the day. Ms Berg states since she was in her 20's she would control her wt loss by forcing herself to vomit after eating so she could eat more. Denies having an eating disorder and denies recent forced vomiting. Denies any current exercise routine and states she does not like to exercise. Her goal wt is 115. States she has a good appetite but limits her intake. She says she has a bad sweet tooth especially for chocolate. Cervical vertebral fracture 05/07/201105/16 Muscle spasms of head or neck 08/26/2009 Pain in joint, pelvic region and thigh 0 06/01/2016 Other chronic cystitis 12/21/2008 7 Hypertonicity of bladder 12/21/2008 017 PLANTAR Fasciitis 08/14/2006 06/01/2016 Sprain of neck 04/17/2006 06/01/2016 Rheumatoid arthritis 03/18/2006 06/01/2016 CHOLELITHIASIS SEE ALSO GALL BLADD WITHOUT CHOLECYSTITIS( Without obstruction) 01/11/2006 06/01/2016 HEPATITIS C CARRIER--treated with IFN and ribavirin and is in remission (as of 05/21) 05/29/2005 06/01/2016 Conductive hearing loss of combined types 200506/01/2016 Migraine variant 05/29/2005 06/01/2016 CHRONIC BRONCHITIS NOS--related to smoking 05/2906/01/2016 OSTEOARTHROS NOS-OTHER SITE- -OA vs RA treated with NSAIDs in past. 05/29/2005 06/01/2016 Overview: actonel 2010 start from hx in EPIC, fosamax 2011 started Cleft lip, unspecified 01/24/2005 7 documented as of this encounter (statuses as of 05/21/2022) [facility]-07-2022 History of Past illness Narrative* Problem Noted Date Resolved Date Chest pain 01/19/2022 01/20/2022 COPD with exacerbation 01/17/2022 Hypokalemia 01/17/2022 01/18/2022 Pancreatitis 08/04/2020 01/18/2022 Chronic pain syndrome 06/27/2015 06/01/2016 Encounter for long-term (current) use of medicat ions 11/15/2014 06/01/2016 Lumbago 09/02/2014 06/01/2016 Cataract of both eyes 10/26/2013 06/01/2016 Overview: [facility] 10/22/2013 - Combined forms of age-related cataract of both eyes Eating disorder 02/16/2013 06/01/2016 Cervical strain 01/22/2013 06/01/2016 Cervical disc disease 01/22/2013 06/01/2016 Xerosis cutis 09/07/2012 06/01/2016 Arthritis of left knee 02/15/2012 7 Leg ulcer, left 02/15/2012 06/01/2016 Closed fracture of lateral malleolus 11/23/2011 06/01/2016 Contusion of toe 11/23/2011 06/01/2016 Capsulitis 11/06/2011 06/01/2016 Pruritus of forearm 09/07/2011 06/01/2016 Pruritus - disorder 09/07/2011 06/01/2016 Eczematous dermatitis 09/07/2011 06/01/2016 Lichenoid dermatitis 09/07/2011 06/01/2016 Excoriation 09/07/2011 06/01/2016 Nasal septal deviation 08/29/2011 7 Orbital mass 07/15/2011 06/01/2016 Obesity 05/09/2011 01/14/2014 Last Assessment & Plan: Pt disappointed in the amount of weight loss she has had over the past month while on the prescription Adipex 37.5mg daily. States she eats oatmeal in the morning every other day and at night has 1/3 of a bag of kettlecorn popcorn. States she does not eat anything else throughout the day. Ms Berg states since she was in her 20's she would control her wt loss by forcing herself to vomit after eating so she could eat more. Denies having an eating disorder and denies recent forced vomiting. Denies any current exercise routine and states she does not like to exercise. Her goal wt is 115. States she has a good appetite but limits her intake. She says she has a bad sweet tooth especially for chocolate. Cervical vertebral fracture 05/07/201105/16 Muscle spasms of head or neck 08/26/2009 Pain in joint, pelvic region and thigh 0 06/01/2016 Other chronic cystitis 12/21/2008 7 Hypertonicity of bladder 12/21/2008 017 PLANTAR Fasciitis 08/14/2006 06/01/2016 Sprain of neck 04/17/2006 06/01/2016 Rheumatoid arthritis 03/18/2006 06/01/2016 CHOLELITHIASIS SEE ALSO GALL BLADD WITHOUT CHOLECYSTITIS( Without obstruction) 01/11/2006 06/01/2016 HEPATITIS C CARRIER--treated with IFN and ribavirin and is in remission (as of 05/21) 05/29/2005 06/01/2016 Conductive hearing loss of combined types 200506/01/2016 Migraine variant 05/29/2005 06/01/2016 CHRONIC BRONCHITIS NOS--related to smoking 05/2906/01/2016 OSTEOARTHROS NOS-OTHER SITE- -OA vs RA treated with NSAIDs in past. 05/29/2005 06/01/2016 Overview: actonel 2009 start from hx in EPIC, fosamax 2012 started Cleft lip, unspecified 01/24/2005 7 documented as of this encounter (statuses as of 05/28/2022) [facility]2022 History of Past illness Narrative* Problem Noted Date Resolved Date Chest pain 01/19/2022 01/20/2022 COPD with exacerbation 01/17/2022 Hypokalemia 01/17/2022 01/18/2022 Pancreatitis 08/04/2020 01/18/2022 Chronic pain syndrome 06/27/2015 06/01/2016 Encounter for long-term (current) use of medicat ions 11/15/2014 06/01/2016 Lumbago 09/02/2014 06/01/2016 Cataract of both eyes 10/26/2013 06/01/2016 Overview: [facility] 10/22/2013 - Combined forms of age-related cataract of both eyes Eating disorder 02/16/2013 06/01/2016 Cervical strain 01/22/2013 06/01/2016 Cervical disc disease 01/22/2013 06/01/2016 Xerosis cutis 09/07/2012 06/01/2016 Arthritis of left knee 02/15/2012 7 Leg ulcer, left 02/15/2012 06/01/2016 Closed fracture of lateral malleolus 11/23/2011 06/01/2016 Contusion of toe 11/23/2011 06/01/2016 Capsulitis 11/06/2011 06/01/2016 Pruritus of forearm 09/07/2011 06/01/2016 Pruritus - disorder 09/07/2011 06/01/2016 Eczematous dermatitis 09/07/2011 06/01/2016 Lichenoid dermatitis 09/07/2011 06/01/2016 Excoriation 09/07/2011 06/01/2016 Nasal septal deviation 08/29/2011 7 Orbital mass 07/15/2011 06/01/2016 Obesity 05/09/2011 01/14/2014 Last Assessment & Plan: Pt disappointed in the amount of weight loss she has had over the past month while on the prescription Adipex 37.5mg daily. States she eats oatmeal in the morning every other day and at night has 1/3 of a bag of kettlecorn popcorn. States she does not eat anything else throughout the day. Ms Berg states since she was in her 20's she would control her wt loss by forcing herself to vomit after eating so she could eat more. Denies having an eating disorder and denies recent forced vomiting. Denies any current exercise routine and states she does not like to exercise. Her goal wt is 115. States she has a good appetite but limits her intake. She says she has a bad sweet tooth especially for chocolate. Cervical vertebral fracture 05/07/201105/16 Muscle spasms of head or neck 08/26/2009 Pain in joint, pelvic region and thigh 0 06/01/2016 Other chronic cystitis 12/21/2008 7 Hypertonicity of bladder 12/21/2008 017 PLANTAR Fasciitis 08/14/2006 06/01/2016 Sprain of neck 04/17/2006 06/01/2016 Rheumatoid arthritis 03/18/2006 06/01/2016 CHOLELITHIASIS SEE ALSO GALL BLADD WITHOUT CHOLECYSTITIS( Without obstruction) 01/11/2006 06/01/2016 HEPATITIS C CARRIER--treated with IFN and ribavirin and is in remission (as of 05/21) 05/29/2005 06/01/2016 Conductive hearing loss of combined types 200506/01/2016 Migraine variant 05/29/2005 06/01/2016 CHRONIC BRONCHITIS NOS--related to smoking 05/2906/01/2016 OSTEOARTHROS NOS-OTHER SITE- -OA vs RA treated with NSAIDs in past. 05/29/2005 06/01/2016 Overview: actonel 2009 start from hx in EPIC, fosamax 2011 started Cleft lip, unspecified 01/24/2005 7 documented as of this encounter (statuses as of 06/04/2022) [facility] History of Past illness Narrative* Problem Noted Date Resolved Date Chest pain 01/19/2022 01/20/2022 COPD with exacerbation 01/17/2022 Hypokalemia 01/17/2022 01/18/2022 Pancreatitis 08/04/2020 01/18/2022 Chronic pain syndrome 06/27/2015 06/01/2016 Encounter for long-term (current) use of medicat ions 11/15/2014 06/01/2016 Lumbago 09/02/2014 06/01/2016 Cataract of both eyes 10/26/2013 06/01/2016 Overview: [facility] 10/22/2013 - Combined forms of age-related cataract of both eyes Eating disorder 02/16/2013 06/01/2016 Cervical strain 01/22/2013 06/01/2016 Cervical disc disease 01/22/2013 06/01/2016 Xerosis cutis 09/07/2012 06/01/2016 Arthritis of left knee 02/15/2012 7 Leg ulcer, left 02/15/2012 06/01/2016 Closed fracture of lateral malleolus 11/23/2011 06/01/2016 Contusion of toe 11/23/2011 06/01/2016 Capsulitis 11/06/2011 06/01/2016 Pruritus of forearm 09/07/2011 06/01/2016 Pruritus - disorder 09/07/2011 06/01/2016 Eczematous dermatitis 09/07/2011 06/01/2016 Lichenoid dermatitis 09/07/2011 06/01/2016 Excoriation 09/07/2011 06/01/2016 Nasal septal deviation 08/29/2011 7 Orbital mass 07/15/2011 06/01/2016 Obesity 05/09/2011 01/14/2014 Last Assessment & Plan: Pt disappointed in the amount of weight loss she has had over the past month while on the prescription Adipex 37.5mg daily. States she eats oatmeal in the morning every other day and at night has 1/3 of a bag of kettlecorn popcorn. States she does not eat anything else throughout the day. Ms Berg states since she was in her 20's she would control her wt loss by forcing herself to vomit after eating so she could eat more. Denies having an eating disorder and denies recent forced vomiting. Denies any current exercise routine and states she does not like to exercise. Her goal wt is 115. States she has a good appetite but limits her intake. She says she has a bad sweet tooth especially for chocolate. Cervical vertebral fracture 05/07/201105/16 Muscle spasms of head or neck 08/26/2009 Pain in joint, pelvic region and thigh 0 06/01/2016 Other chronic cystitis 12/21/2008 7 Hypertonicity of bladder 12/21/2008 017 PLANTAR Fasciitis 08/14/2006 06/01/2016 Sprain of neck 04/17/2006 06/01/2016 Rheumatoid arthritis 03/18/2006 06/01/2016 CHOLELITHIASIS SEE ALSO GALL BLADD WITHOUT CHOLECYSTITIS( Without obstruction) 01/11/2006 06/01/2016 HEPATITIS C CARRIER--treated with IFN and ribavirin and is in remission (as of 05/21) 05/29/2005 06/01/2016 Conductive hearing loss of combined types 200506/01/2016 Migraine variant 05/29/2005 06/01/2016 CHRONIC BRONCHITIS NOS--related to smoking 05/2906/01/2016 OSTEOARTHROS NOS-OTHER SITE- -OA vs RA treated with NSAIDs in past. 05/29/2005 06/01/2016 Overview: actonel 2010 start from hx in EPIC, fosamax 2011 started Cleft lip, unspecified 01/24/2005 7 documented as of this encounter (statuses as of 06/06/2022) [facility]10-07-2022 History of Past illness Narrative* Problem Noted Date Resolved Date Chest pain 01/19/2022 01/20/2022 COPD with exacerbation 01/17/2022 Hypokalemia 01/17/2022 01/18/2022 Pancreatitis 08/04/2020 01/18/2022 Chronic pain syndrome 06/27/2015 06/01/2016 Encounter for long-term (current) use of medicat ions 11/15/2014 06/01/2016 Lumbago 09/02/2014 06/01/2016 Cataract of both eyes 10/26/2013 06/01/2016 Overview: [facility] 10/22/2013 - Combined forms of age-related cataract of both eyes Eating disorder 02/16/2013 06/01/2016 Cervical strain 01/22/2013 06/01/2016 Cervical disc disease 01/22/2013 06/01/2016 Xerosis cutis 09/07/2012 06/01/2016 Arthritis of left knee 02/15/2012 7 Leg ulcer, left 02/15/2012 06/01/2016 Closed fracture of lateral malleolus 11/23/2011 06/01/2016 Contusion of toe 11/23/2011 06/01/2016 Capsulitis 11/06/2011 06/01/2016 Pruritus of forearm 09/07/2011 06/01/2016 Pruritus - disorder 09/07/2011 06/01/2016 Eczematous dermatitis 09/07/2011 06/01/2016 Lichenoid dermatitis 09/07/2011 06/01/2016 Excoriation 09/07/2011 06/01/2016 Nasal septal deviation 08/29/2011 7 Orbital mass 07/15/2011 06/01/2016 Obesity 05/09/2011 01/14/2014 Last Assessment & Plan: Pt disappointed in the amount of weight loss she has had over the past month while on the prescription Adipex 37.5mg daily. States she eats oatmeal in the morning every other day and at night has 1/3 of a bag of kettlecorn popcorn. States she does not eat anything else throughout the day. Ms Berg states since she was in her 20's she would control her wt loss by forcing herself to vomit after eating so she could eat more. Denies having an eating disorder and denies recent forced vomiting. Denies any current exercise routine and states she does not like to exercise. Her goal wt is 115. States she has a good appetite but limits her intake. She says she has a bad sweet tooth especially for chocolate. Cervical vertebral fracture 05/07/201105/16 Muscle spasms of head or neck 08/26/2009 Pain in joint, pelvic region and thigh 0 06/01/2016 Other chronic cystitis 12/21/2008 7 Hypertonicity of bladder 12/21/2008 017 PLANTAR Fasciitis 08/14/2006 06/01/2016 Sprain of neck 04/17/2006 06/01/2016 Rheumatoid arthritis 03/18/2006 06/01/2016 CHOLELITHIASIS SEE ALSO GALL BLADD WITHOUT CHOLECYSTITIS( Without obstruction) 01/11/2006 06/01/2016 HEPATITIS C CARRIER--treated with IFN and ribavirin and is in remission (as of 05/21) 05/29/2005 06/01/2016 Conductive hearing loss of combined types 200506/01/2016 Migraine variant 05/29/2005 06/01/2016 CHRONIC BRONCHITIS NOS--related to smoking 05/2906/01/2016 OSTEOARTHROS NOS-OTHER SITE- -OA vs RA treated with NSAIDs in past. 05/29/2005 06/01/2016 Overview: actonel 2009 start from hx in EPIC, fosamax 2011 started Cleft lip, unspecified 01/24/2005 7 documented as of this encounter (statuses as of 06/26/2022) [facility]10-07-2022 History of Past illness Narrative* Problem Noted Date Resolved Date Chest pain 01/19/2022 01/20/2022 COPD with exacerbation 01/17/2022 Hypertension 01/17/2022 07/06/2022 Hypokalemia 01/17/2022 01/18/2022 Acute pneumonia 01/15/2022 07/06/2022 Pancreatitis 08/04/2020 01/18/2022 Acute left ankle pain 12/18/2017 07/06/2022 Chronic pain syndrome 06/27/2015 06/01/2016 Encounter for long-term (current) use of medicat ions 11/15/2014 06/01/2016 Lumbago 09/02/2014 06/01/2016 Cataract of both eyes 10/26/2013 06/01/2016 Overview: [facility] 10/22/2013 - Combined forms of age-related cataract of both eyes Eating disorder 02/16/2013 06/01/2016 Cervical strain 01/22/2013 06/01/2016 Cervical disc disease 01/22/2013 06/01/2016 Xerosis cutis 09/07/2012 06/01/2016 Arthritis of left knee 02/15/2012 7 Leg ulcer, left 02/15/2012 06/01/2016 Closed fracture of lateral malleolus 11/23/2011 06/01/2016 Contusion of toe 11/23/2011 06/01/2016 Capsulitis 11/06/2011 06/01/2016 Pruritus of forearm 09/07/2011 06/01/2016 Pruritus - disorder 09/07/2011 06/01/2016 Eczematous dermatitis 09/07/2011 06/01/2016 Lichenoid dermatitis 09/07/2011 06/01/2016 Excoriation 09/07/2011 06/01/2016 Nasal septal deviation 08/29/2011 7 Orbital mass 07/15/2011 06/01/2016 Obesity 05/09/2011 01/14/2014 Last Assessment & Plan: Pt disappointed in the amount of weight loss she has had over the past month while on the prescription Adipex 37.5mg daily. States she eats oatmeal in the morning every other day and at night has 1/3 of a bag of kettlecorn popcorn. States she does not eat anything else throughout the day. Ms Berg states since she was in her 20's she would control her wt loss by forcing herself to vomit after eating so she could eat more. Denies having an eating disorder and denies recent forced vomiting. Denies any current exercise routine and states she does not like to exercise. Her goal wt is 115. States she has a good appetite but limits her intake. She says she has a bad sweet tooth especially for chocolate. Cervical vertebral fracture 05/07/201105/16 Muscle spasms of head or neck 08/26/2009 Pain in joint, pelvic region and thigh 0 06/01/2016 Other chronic cystitis 12/21/2008 7 Hypertonicity of bladder 12/21/2008 017 PLANTAR Fasciitis 08/14/2006 06/01/2016 Sprain of neck 04/17/2006 06/01/2016 Rheumatoid arthritis 03/18/2006 06/01/2016 CHOLELITHIASIS SEE ALSO GALL BLADD WITHOUT CHOLECYSTITIS( Without obstruction) 01/11/2006 06/01/2016 HEPATITIS C CARRIER--treated with IFN and ribavirin and is in remission (as of 05/21) 05/29/2005 06/01/2016 Conductive hearing loss of combined types 200506/01/2016 Migraine variant 05/29/2005 06/01/2016 CHRONIC BRONCHITIS NOS--related to smoking 05/2906/01/2016 OSTEOARTHROS NOS-OTHER SITE- -OA vs RA treated with NSAIDs in past. 05/29/2005 06/01/2016 Overview: actonel 2010 start from hx in EPIC, fosamax 2011 started Cleft lip, unspecified 01/24/2005 7 documented as of this encounter (statuses as of 07/06/2022) [facility]10-07-2022 History of Past illness Narrative* Problem Noted Date Resolved Date Chest pain 01/19/2022 01/20/2022 COPD with exacerbation 01/17/2022 Hypertension 01/17/2022 07/06/2022 Hypokalemia 01/17/2022 01/18/2022 Acute pneumonia 01/15/2022 07/06/2022 Pancreatitis 08/04/2020 01/18/2022 Acute left ankle pain 12/18/2017 07/06/2022 Chronic pain syndrome 06/27/2015 06/01/2016 Encounter for long-term (current) use of medicat ions 11/15/2014 06/01/2016 Lumbago 09/02/2014 06/01/2016 Cataract of both eyes 10/26/2013 06/01/2016 Overview: [facility] 10/22/2013 - Combined forms of age-related cataract of both eyes Eating disorder 02/16/2013 06/01/2016 Cervical strain 01/22/2013 06/01/2016 Cervical disc disease 01/22/2013 06/01/2016 Xerosis cutis 09/07/2012 06/01/2016 Arthritis of left knee 02/15/2012 7 Leg ulcer, left 02/15/2012 06/01/2016 Closed fracture of lateral malleolus 11/23/2011 06/01/2016 Contusion of toe 11/23/2011 06/01/2016 Capsulitis 11/06/2011 06/01/2016 Pruritus of forearm 09/07/2011 06/01/2016 Pruritus - disorder 09/07/2011 06/01/2016 Eczematous dermatitis 09/07/2011 06/01/2016 Lichenoid dermatitis 09/07/2011 06/01/2016 Excoriation 09/07/2011 06/01/2016 Nasal septal deviation 08/29/2011 7 Orbital mass 07/15/2011 06/01/2016 Obesity 05/09/2011 01/14/2014 Last Assessment & Plan: Pt disappointed in the amount of weight loss she has had over the past month while on the prescription Adipex 37.5mg daily. States she eats oatmeal in the morning every other day and at night has 1/3 of a bag of kettlecorn popcorn. States she does not eat anything else throughout the day. Ms Berg states since she was in her 20's she would control her wt loss by forcing herself to vomit after eating so she could eat more. Denies having an eating disorder and denies recent forced vomiting. Denies any current exercise routine and states she does not like to exercise. Her goal wt is 115. States she has a good appetite but limits her intake. She says she has a bad sweet tooth especially for chocolate. Cervical vertebral fracture 05/07/201105/16 Muscle spasms of head or neck 08/26/2009 Pain in joint, pelvic region and thigh 0 06/01/2016 Other chronic cystitis 12/21/2008 7 Hypertonicity of bladder 12/21/2008 017 PLANTAR Fasciitis 08/14/2006 06/01/2016 Sprain of neck 04/17/2006 06/01/2016 Rheumatoid arthritis 03/18/2006 06/01/2016 CHOLELITHIASIS SEE ALSO GALL BLADD WITHOUT CHOLECYSTITIS( Without obstruction) 01/11/2006 06/01/2016 HEPATITIS C CARRIER--treated with IFN and ribavirin and is in remission (as of 05/21) 05/29/2005 06/01/2016 Conductive hearing loss of combined types 200506/01/2016 Migraine variant 05/29/2005 06/01/2016 CHRONIC BRONCHITIS NOS--related to smoking 05/2906/01/2016 OSTEOARTHROS NOS-OTHER SITE- -OA vs RA treated with NSAIDs in past. 05/29/2005 06/01/2016 Overview: actonel 2010 start from hx in EPIC, fosamax 2011 started Cleft lip, unspecified 01/24/2005 7 documented as of this encounter (statuses as of 07/27/2022) [facility]10-07-2022 History of Past illness Narrative* Problem Noted Date Resolved Date Chest pain 01/19/2022 01/20/2022 COPD with exacerbation 01/17/2022 Hypertension 01/17/2022 07/06/2022 Hypokalemia 01/17/2022 01/18/2022 Acute pneumonia 01/15/2022 07/06/2022 Pancreatitis 08/04/2020 01/18/2022 Acute left ankle pain 12/18/2017 07/06/2022 Chronic pain syndrome 06/27/2015 06/01/2016 Encounter for long-term (current) use of medicat ions 11/15/2014 06/01/2016 Lumbago 09/02/2014 06/01/2016 Cataract of both eyes 10/26/2013 06/01/2016 Overview: [facility] 10/22/2013 - Combined forms of age-related cataract of both eyes Eating disorder 02/16/2013 06/01/2016 Cervical strain 01/22/2013 06/01/2016 Cervical disc disease 01/22/2013 06/01/2016 Xerosis cutis 09/07/2012 06/01/2016 Arthritis of left knee 02/15/2012 7 Leg ulcer, left 02/15/2012 06/01/2016 Closed fracture of lateral malleolus 11/23/2011 06/01/2016 Contusion of toe 11/23/2011 06/01/2016 Capsulitis 11/06/2011 06/01/2016 Pruritus of forearm 09/07/2011 06/01/2016 Pruritus - disorder 09/07/2011 06/01/2016 Eczematous dermatitis 09/07/2011 06/01/2016 Lichenoid dermatitis 09/07/2011 06/01/2016 Excoriation 09/07/2011 06/01/2016 Nasal septal deviation 08/29/2011 7 Orbital mass 07/15/2011 06/01/2016 Obesity 05/09/2011 01/14/2014 Last Assessment & Plan: Pt disappointed in the amount of weight loss she has had over the past month while on the prescription Adipex 37.5mg daily. States she eats oatmeal in the morning every other day and at night has 1/3 of a bag of kettlecorn popcorn. States she does not eat anything else throughout the day. Ms Berg states since she was in her 20's she would control her wt loss by forcing herself to vomit after eating so she could eat more. Denies having an eating disorder and denies recent forced vomiting. Denies any current exercise routine and states she does not like to exercise. Her goal wt is 115. States she has a good appetite but limits her intake. She says she has a bad sweet tooth especially for chocolate. Cervical vertebral fracture 05/07/201105/16 Muscle spasms of head or neck 08/26/2009 Pain in joint, pelvic region and thigh 0 06/01/2016 Other chronic cystitis 12/21/2008 7 Hypertonicity of bladder 12/21/2008 017 PLANTAR Fasciitis 08/14/2006 06/01/2016 Sprain of neck 04/17/2006 06/01/2016 Rheumatoid arthritis 03/18/2006 06/01/2016 CHOLELITHIASIS SEE ALSO GALL BLADD WITHOUT CHOLECYSTITIS( Without obstruction) 01/11/2006 06/01/2016 HEPATITIS C CARRIER--treated with IFN and ribavirin and is in remission (as of 05/21) 05/29/2005 06/01/2016 Conductive hearing loss of combined types 200506/01/2016 Migraine variant 05/29/2005 06/01/2016 CHRONIC BRONCHITIS NOS--related to smoking 05/2906/01/2016 OSTEOARTHROS NOS-OTHER SITE- -OA vs RA treated with NSAIDs in past. 05/29/2005 06/01/2016 Overview: actonel 2009 start from hx in EPIC, fosamax 2011 started Cleft lip, unspecified 01/24/2005 7 documented as of this encounter (statuses as of 08/15/2022) [facility]10-07-2022 History of Past illness Narrative* Problem Noted Date Resolved Date Chest pain 01/19/2022 01/20/2022 COPD with exacerbation 01/17/2022 Hypertension 01/17/2022 07/06/2022 Hypokalemia 01/17/2022 01/18/2022 Acute pneumonia 01/15/2022 07/06/2022 Pancreatitis 08/04/2020 01/18/2022 Acute left ankle pain 12/18/2017 07/06/2022 Chronic pain syndrome 06/27/2015 06/01/2016 Encounter for long-term (current) use of medicat ions 11/15/2014 06/01/2016 Lumbago 09/02/2014 06/01/2016 Cataract of both eyes 10/26/2013 06/01/2016 Overview: [facility] 10/22/2013 - Combined forms of age-related cataract of both eyes Eating disorder 02/16/2013 06/01/2016 Cervical strain 01/22/2013 06/01/2016 Cervical disc disease 01/22/2013 06/01/2016 Xerosis cutis 09/07/2012 06/01/2016 Arthritis of left knee 02/15/2012 7 Leg ulcer, left 02/15/2012 06/01/2016 Closed fracture of lateral malleolus 11/23/2011 06/01/2016 Contusion of toe 11/23/2011 06/01/2016 Capsulitis 11/06/2011 06/01/2016 Pruritus of forearm 09/07/2011 06/01/2016 Pruritus - disorder 09/07/2011 06/01/2016 Eczematous dermatitis 09/07/2011 06/01/2016 Lichenoid dermatitis 09/07/2011 06/01/2016 Excoriation 09/07/2011 06/01/2016 Nasal septal deviation 08/29/2011 7 Orbital mass 07/15/2011 06/01/2016 Obesity 05/09/2011 01/14/2014 Last Assessment & Plan: Pt disappointed in the amount of weight loss she has had over the past month while on the prescription Adipex 37.5mg daily. States she eats oatmeal in the morning every other day and at night has 1/3 of a bag of kettlecorn popcorn. States she does not eat anything else throughout the day. Ms Berg states since she was in her 20's she would control her wt loss by forcing herself to vomit after eating so she could eat more. Denies having an eating disorder and denies recent forced vomiting. Denies any current exercise routine and states she does not like to exercise. Her goal wt is 115. States she has a good appetite but limits her intake. She says she has a bad sweet tooth especially for chocolate. Cervical vertebral fracture 05/07/201105/16 Muscle spasms of head or neck 08/26/2009 Pain in joint, pelvic region and thigh 0 06/01/2016 Other chronic cystitis 12/21/2008 7 Hypertonicity of bladder 12/21/2008 017 PLANTAR Fasciitis 08/14/2006 06/01/2016 Sprain of neck 04/17/2006 06/01/2016 Rheumatoid arthritis 03/18/2006 06/01/2016 CHOLELITHIASIS SEE ALSO GALL BLADD WITHOUT CHOLECYSTITIS( Without obstruction) 01/11/2006 06/01/2016 HEPATITIS C CARRIER--treated with IFN and ribavirin and is in remission (as of 05/21) 05/29/2005 06/01/2016 Conductive hearing loss of combined types 200506/01/2016 Migraine variant 05/29/2005 06/01/2016 CHRONIC BRONCHITIS NOS--related to smoking 05/2906/01/2016 OSTEOARTHROS NOS-OTHER SITE- -OA vs RA treated with NSAIDs in past. 05/29/2005 06/01/2016 Overview: actonel 2009 start from hx in EPIC, fosamax 2011 started Cleft lip, unspecified 01/24/2005 7 documented as of this encounter (statuses as of 08/20/2022) [facility]-07-2022 History of Past illness Narrative* Problem Noted Date Resolved Date Chest pain 01/19/2022 01/20/2022 COPD with exacerbation 01/17/2022 Hypertension 01/17/2022 07/06/2022 Hypokalemia 01/17/2022 01/18/2022 Acute pneumonia 01/15/2022 07/06/2022 Pancreatitis 08/04/2020 01/18/2022 Acute left ankle pain 12/18/2017 07/06/2022 Chronic pain syndrome 06/27/2015 06/01/2016 Encounter for long-term (current) use of medicat ions 11/15/2014 06/01/2016 Lumbago 09/02/2014 06/01/2016 Cataract of both eyes 10/26/2013 06/01/2016 Overview: [facility] 10/22/2013 - Combined forms of age-related cataract of both eyes Eating disorder 02/16/2013 06/01/2016 Cervical strain 01/22/2013 06/01/2016 Cervical disc disease 01/22/2013 06/01/2016 Xerosis cutis 09/07/2012 06/01/2016 Arthritis of left knee 02/15/2012 7 Leg ulcer, left 02/15/2012 06/01/2016 Closed fracture of lateral malleolus 11/23/2011 06/01/2016 Contusion of toe 11/23/2011 06/01/2016 Capsulitis 11/06/2011 06/01/2016 Pruritus of forearm 09/07/2011 06/01/2016 Pruritus - disorder 09/07/2011 06/01/2016 Eczematous dermatitis 09/07/2011 06/01/2016 Lichenoid dermatitis 09/07/2011 06/01/2016 Excoriation 09/07/2011 06/01/2016 Nasal septal deviation 08/29/2011 7 Orbital mass 07/15/2011 06/01/2016 Obesity 05/09/2011 01/14/2014 Last Assessment & Plan: Pt disappointed in the amount of weight loss she has had over the past month while on the prescription Adipex 37.5mg daily. States she eats oatmeal in the morning every other day and at night has 1/3 of a bag of kettlecorn popcorn. States she does not eat anything else throughout the day. Ms Berg states since she was in her 20's she would control her wt loss by forcing herself to vomit after eating so she could eat more. Denies having an eating disorder and denies recent forced vomiting. Denies any current exercise routine and states she does not like to exercise. Her goal wt is 115. States she has a good appetite but limits her intake. She says she has a bad sweet tooth especially for chocolate. Cervical vertebral fracture 05/07/201105/16 Muscle spasms of head or neck 08/26/2009 Pain in joint, pelvic region and thigh 0 06/01/2016 Other chronic cystitis 12/21/2008 7 Hypertonicity of bladder 12/21/2008 017 PLANTAR Fasciitis 08/14/2006 06/01/2016 Sprain of neck 04/17/2006 06/01/2016 Rheumatoid arthritis 03/18/2006 06/01/2016 CHOLELITHIASIS SEE ALSO GALL BLADD WITHOUT CHOLECYSTITIS( Without obstruction) 01/11/2006 06/01/2016 HEPATITIS C CARRIER--treated with IFN and ribavirin and is in remission (as of 05/21) 05/29/2005 06/01/2016 Conductive hearing loss of combined types 200506/01/2016 Migraine variant 05/29/2005 06/01/2016 CHRONIC BRONCHITIS NOS--related to smoking 05/2906/01/2016 OSTEOARTHROS NOS-OTHER SITE- -OA vs RA treated with NSAIDs in past. 05/29/2005 06/01/2016 Overview: actonel 2010 start from hx in EPIC, fosamax 2011 started Cleft lip, unspecified 01/24/2005 7 documented as of this encounter (statuses as of 08/21/2022) [facility] History of Past illness Narrative* Problem Noted Date Resolved Date Chest pain 01/19/2022 01/20/2022 COPD with exacerbation 01/17/2022 Hypertension 01/17/2022 07/06/2022 Hypokalemia 01/17/2022 01/18/2022 Acute pneumonia 01/15/2022 07/06/2022 Pancreatitis 08/04/2020 01/18/2022 Acute left ankle pain 12/18/2017 07/06/2022 Chronic pain syndrome 06/27/2015 06/01/2016 Encounter for long-term (current) use of medicat ions 11/15/2014 06/01/2016 Lumbago 09/02/2014 06/01/2016 Cataract of both eyes 10/26/2013 06/01/2016 Overview: [facility] 10/22/2013 - Combined forms of age-related cataract of both eyes Eating disorder 02/16/2013 06/01/2016 Cervical strain 01/22/2013 06/01/2016 Cervical disc disease 01/22/2013 06/01/2016 Xerosis cutis 09/07/2012 06/01/2016 Arthritis of left knee 02/15/2012 7 Leg ulcer, left 02/15/2012 06/01/2016 Closed fracture of lateral malleolus 11/23/2011 06/01/2016 Contusion of toe 11/23/2011 06/01/2016 Capsulitis 11/06/2011 06/01/2016 Pruritus of forearm 09/07/2011 06/01/2016 Pruritus - disorder 09/07/2011 06/01/2016 Eczematous dermatitis 09/07/2011 06/01/2016 Lichenoid dermatitis 09/07/2011 06/01/2016 Excoriation 09/07/2011 06/01/2016 Nasal septal deviation 08/29/2011 7 Orbital mass 07/15/2011 06/01/2016 Obesity 05/09/2011 01/14/2014 Last Assessment & Plan: Pt disappointed in the amount of weight loss she has had over the past month while on the prescription Adipex 37.5mg daily. States she eats oatmeal in the morning every other day and at night has 1/3 of a bag of kettlecorn popcorn. States she does not eat anything else throughout the day. Ms Berg states since she was in her 20's she would control her wt loss by forcing herself to vomit after eating so she could eat more. Denies having an eating disorder and denies recent forced vomiting. Denies any current exercise routine and states she does not like to exercise. Her goal wt is 115. States she has a good appetite but limits her intake. She says she has a bad sweet tooth especially for chocolate. Cervical vertebral fracture 05/07/201105/16 Muscle spasms of head or neck 08/26/2009 Pain in joint, pelvic region and thigh 0 06/01/2016 Other chronic cystitis 12/21/2008 7 Hypertonicity of bladder 12/21/2008 017 PLANTAR Fasciitis 08/14/2006 06/01/2016 Sprain of neck 04/17/2006 06/01/2016 Rheumatoid arthritis 03/18/2006 06/01/2016 CHOLELITHIASIS SEE ALSO GALL BLADD WITHOUT CHOLECYSTITIS( Without obstruction) 01/11/2006 06/01/2016 HEPATITIS C CARRIER--treated with IFN and ribavirin and is in remission (as of 05/21) 05/29/2005 06/01/2016 Conductive hearing loss of combined types 200506/01/2016 Migraine variant 05/29/2005 06/01/2016 CHRONIC BRONCHITIS NOS--related to smoking 05/2906/01/2016 OSTEOARTHROS NOS-OTHER SITE- -OA vs RA treated with NSAIDs in past. 05/29/2005 06/01/2016 Overview: actonel 2009 start from hx in EPIC, fosamax 2011 started Cleft lip, unspecified 01/24/2005 7 documented as of this encounter (statuses as of 08/21/2022) [facility] History of Past illness Narrative* Problem Noted Date Resolved Date Chest pain 01/19/2022 01/20/2022 COPD with exacerbation 01/17/2022 Hypertension 01/17/2022 07/06/2022 Hypokalemia 01/17/2022 01/18/2022 Acute pneumonia 01/15/2022 07/06/2022 Pancreatitis 08/04/2020 01/18/2022 Acute left ankle pain 12/18/2017 07/06/2022 Chronic pain syndrome 06/27/2015 06/01/2016 Encounter for long-term (current) use of medicat ions 11/15/2014 06/01/2016 Lumbago 09/02/2014 06/01/2016 Cataract of both eyes 10/26/2013 06/01/2016 Overview: [facility] 10/22/2013 - Combined forms of age-related cataract of both eyes Eating disorder 02/16/2013 06/01/2016 Cervical strain 01/22/2013 06/01/2016 Cervical disc disease 01/22/2013 06/01/2016 Xerosis cutis 09/07/2012 06/01/2016 Arthritis of left knee 02/15/2012 7 Leg ulcer, left 02/15/2012 06/01/2016 Closed fracture of lateral malleolus 11/23/2011 06/01/2016 Contusion of toe 11/23/2011 06/01/2016 Capsulitis 11/06/2011 06/01/2016 Pruritus of forearm 09/07/2011 06/01/2016 Pruritus - disorder 09/07/2011 06/01/2016 Eczematous dermatitis 09/07/2011 06/01/2016 Lichenoid dermatitis 09/07/2011 06/01/2016 Excoriation 09/07/2011 06/01/2016 Nasal septal deviation 08/29/2011 7 Orbital mass 07/15/2011 06/01/2016 Obesity 05/09/2011 01/14/2014 Last Assessment & Plan: Pt disappointed in the amount of weight loss she has had over the past month while on the prescription Adipex 37.5mg daily. States she eats oatmeal in the morning every other day and at night has 1/3 of a bag of kettlecorn popcorn. States she does not eat anything else throughout the day. Ms Berg states since she was in her 20's she would control her wt loss by forcing herself to vomit after eating so she could eat more. Denies having an eating disorder and denies recent forced vomiting. Denies any current exercise routine and states she does not like to exercise. Her goal wt is 115. States she has a good appetite but limits her intake. She says she has a bad sweet tooth especially for chocolate. Cervical vertebral fracture 05/07/201105/16 Muscle spasms of head or neck 08/26/2009 Pain in joint, pelvic region and thigh 0 06/01/2016 Other chronic cystitis 12/21/2008 7 Hypertonicity of bladder 12/21/2008 017 PLANTAR Fasciitis 08/14/2006 06/01/2016 Sprain of neck 04/17/2006 06/01/2016 Rheumatoid arthritis 03/18/2006 06/01/2016 CHOLELITHIASIS SEE ALSO GALL BLADD WITHOUT CHOLECYSTITIS( Without obstruction) 01/11/2006 06/01/2016 HEPATITIS C CARRIER--treated with IFN and ribavirin and is in remission (as of 05/21) 05/29/2005 06/01/2016 Conductive hearing loss of combined types 200506/01/2016 Migraine variant 05/29/2005 06/01/2016 CHRONIC BRONCHITIS NOS--related to smoking 05/2906/01/2016 OSTEOARTHROS NOS-OTHER SITE- -OA vs RA treated with NSAIDs in past. 05/29/2005 06/01/2016 Overview: actonel 2010 start from hx in EPIC, fosamax 2011 started Cleft lip, unspecified 01/24/2005 7 documented as of this encounter (statuses as of 08/22/2022) [facility]10-07-2022 History of Past illness Narrative* Problem Noted Date Resolved Date Chest pain 01/19/2022 01/20/2022 COPD with exacerbation 01/17/2022 Hypertension 01/17/2022 07/06/2022 Hypokalemia 01/17/2022 01/18/2022 Acute pneumonia 01/15/2022 07/06/2022 Pancreatitis 08/04/2020 01/18/2022 Acute left ankle pain 12/18/2017 07/06/2022 Chronic pain syndrome 06/27/2015 06/01/2016 Encounter for long-term (current) use of medicat ions 11/15/2014 06/01/2016 Lumbago 09/02/2014 06/01/2016 Cataract of both eyes 10/26/2013 06/01/2016 Overview: [facility] 10/22/2013 - Combined forms of age-related cataract of both eyes Eating disorder 02/16/2013 06/01/2016 Cervical strain 01/22/2013 06/01/2016 Cervical disc disease 01/22/2013 06/01/2016 Xerosis cutis 09/07/2012 06/01/2016 Arthritis of left knee 02/15/2012 7 Leg ulcer, left 02/15/2012 06/01/2016 Closed fracture of lateral malleolus 11/23/2011 06/01/2016 Contusion of toe 11/23/2011 06/01/2016 Capsulitis 11/06/2011 06/01/2016 Pruritus of forearm 09/07/2011 06/01/2016 Pruritus - disorder 09/07/2011 06/01/2016 Eczematous dermatitis 09/07/2011 06/01/2016 Lichenoid dermatitis 09/07/2011 06/01/2016 Excoriation 09/07/2011 06/01/2016 Nasal septal deviation 08/29/2011 7 Orbital mass 07/15/2011 06/01/2016 Obesity 05/09/2011 01/14/2014 Last Assessment & Plan: Pt disappointed in the amount of weight loss she has had over the past month while on the prescription Adipex 37.5mg daily. States she eats oatmeal in the morning every other day and at night has 1/3 of a bag of kettlecorn popcorn. States she does not eat anything else throughout the day. Ms Berg states since she was in her 20's she would control her wt loss by forcing herself to vomit after eating so she could eat more. Denies having an eating disorder and denies recent forced vomiting. Denies any current exercise routine and states she does not like to exercise. Her goal wt is 115. States she has a good appetite but limits her intake. She says she has a bad sweet tooth especially for chocolate. Cervical vertebral fracture 05/07/201105/16 Muscle spasms of head or neck 08/26/2009 Pain in joint, pelvic region and thigh 0 06/01/2016 Other chronic cystitis 12/21/2008 7 Hypertonicity of bladder 12/21/2008 017 PLANTAR Fasciitis 08/14/2006 06/01/2016 Sprain of neck 04/17/2006 06/01/2016 Rheumatoid arthritis 03/18/2006 06/01/2016 CHOLELITHIASIS SEE ALSO GALL BLADD WITHOUT CHOLECYSTITIS( Without obstruction) 01/11/2006 06/01/2016 HEPATITIS C CARRIER--treated with IFN and ribavirin and is in remission (as of 05/21) 05/29/2005 06/01/2016 Conductive hearing loss of combined types 200506/01/2016 Migraine variant 05/29/2005 06/01/2016 CHRONIC BRONCHITIS NOS--related to smoking 05/2906/01/2016 OSTEOARTHROS NOS-OTHER SITE- -OA vs RA treated with NSAIDs in past. 05/29/2005 06/01/2016 Overview: actonel 2009 start from hx in EPIC, fosamax 2011 started Cleft lip, unspecified 01/24/2005 7 documented as of this encounter (statuses as of 08/27/2022) [facility]10-07-2022 History of Past illness Narrative* Problem Noted Date Resolved Date Chest pain 01/19/2022 01/20/2022 COPD with exacerbation 01/17/2022 Hypertension 01/17/2022 07/06/2022 Hypokalemia 01/17/2022 01/18/2022 Acute pneumonia 01/15/2022 07/06/2022 Pancreatitis 08/04/2020 01/18/2022 Acute left ankle pain 12/18/2017 07/06/2022 Chronic pain syndrome 06/27/2015 06/01/2016 Encounter for long-term (current) use of medicat ions 11/15/2014 06/01/2016 Lumbago 09/02/2014 06/01/2016 Cataract of both eyes 10/26/2013 06/01/2016 Overview: [facility] 10/22/2013 - Combined forms of age-related cataract of both eyes Eating disorder 02/16/2013 06/01/2016 Cervical strain 01/22/2013 06/01/2016 Cervical disc disease 01/22/2013 06/01/2016 Xerosis cutis 09/07/2012 06/01/2016 Arthritis of left knee 02/15/2012 7 Leg ulcer, left 02/15/2012 06/01/2016 Closed fracture of lateral malleolus 11/23/2011 06/01/2016 Contusion of toe 11/23/2011 06/01/2016 Capsulitis 11/06/2011 06/01/2016 Pruritus of forearm 09/07/2011 06/01/2016 Pruritus - disorder 09/07/2011 06/01/2016 Eczematous dermatitis 09/07/2011 06/01/2016 Lichenoid dermatitis 09/07/2011 06/01/2016 Excoriation 09/07/2011 06/01/2016 Nasal septal deviation 08/29/2011 7 Orbital mass 07/15/2011 06/01/2016 Obesity 05/09/2011 01/14/2014 Last Assessment & Plan: Pt disappointed in the amount of weight loss she has had over the past month while on the prescription Adipex 37.5mg daily. States she eats oatmeal in the morning every other day and at night has 1/3 of a bag of kettlecorn popcorn. States she does not eat anything else throughout the day. Ms Berg states since she was in her 20's she would control her wt loss by forcing herself to vomit after eating so she could eat more. Denies having an eating disorder and denies recent forced vomiting. Denies any current exercise routine and states she does not like to exercise. Her goal wt is 115. States she has a good appetite but limits her intake. She says she has a bad sweet tooth especially for chocolate. Cervical vertebral fracture 05/07/201105/16 Muscle spasms of head or neck 08/26/2009 Pain in joint, pelvic region and thigh 0 06/01/2016 Other chronic cystitis 12/21/2008 7 Hypertonicity of bladder 12/21/2008 017 PLANTAR Fasciitis 08/14/2006 06/01/2016 Sprain of neck 04/17/2006 06/01/2016 Rheumatoid arthritis 03/18/2006 06/01/2016 CHOLELITHIASIS SEE ALSO GALL BLADD WITHOUT CHOLECYSTITIS( Without obstruction) 01/11/2006 06/01/2016 HEPATITIS C CARRIER--treated with IFN and ribavirin and is in remission (as of 05/21) 05/29/2005 06/01/2016 Conductive hearing loss of combined types 200506/01/2016 Migraine variant 05/29/2005 06/01/2016 CHRONIC BRONCHITIS NOS--related to smoking 05/2906/01/2016 OSTEOARTHROS NOS-OTHER SITE- -OA vs RA treated with NSAIDs in past. 05/29/2005 06/01/2016 Overview: actonel 2010 start from hx in EPIC, fosamax 2011 started Cleft lip, unspecified 01/24/2005 7 documented as of this encounter (statuses as of 08/29/2022) [facility]10-07-2022 History of Past illness Narrative* Problem Noted Date Resolved Date Chest pain 01/19/2022 01/20/2022 COPD with exacerbation 01/17/2022 Hypertension 01/17/2022 07/06/2022 Hypokalemia 01/17/2022 01/18/2022 Acute pneumonia 01/15/2022 07/06/2022 Pancreatitis 08/04/2020 01/18/2022 Acute left ankle pain 12/18/2017 07/06/2022 Chronic pain syndrome 06/27/2015 06/01/2016 Encounter for long-term (current) use of medicat ions 11/15/2014 06/01/2016 Lumbago 09/02/2014 06/01/2016 Cataract of both eyes 10/26/2013 06/01/2016 Overview: [facility] 10/22/2013 - Combined forms of age-related cataract of both eyes Eating disorder 02/16/2013 06/01/2016 Cervical strain 01/22/2013 06/01/2016 Cervical disc disease 01/22/2013 06/01/2016 Xerosis cutis 09/07/2012 06/01/2016 Arthritis of left knee 02/15/2012 7 Leg ulcer, left 02/15/2012 06/01/2016 Closed fracture of lateral malleolus 11/23/2011 06/01/2016 Contusion of toe 11/23/2011 06/01/2016 Capsulitis 11/06/2011 06/01/2016 Pruritus of forearm 09/07/2011 06/01/2016 Pruritus - disorder 09/07/2011 06/01/2016 Eczematous dermatitis 09/07/2011 06/01/2016 Lichenoid dermatitis 09/07/2011 06/01/2016 Excoriation 09/07/2011 06/01/2016 Nasal septal deviation 08/29/2011 7 Orbital mass 07/15/2011 06/01/2016 Obesity 05/09/2011 01/14/2014 Last Assessment & Plan: Pt disappointed in the amount of weight loss she has had over the past month while on the prescription Adipex 37.5mg daily. States she eats oatmeal in the morning every other day and at night has 1/3 of a bag of kettlecorn popcorn. States she does not eat anything else throughout the day. Ms Berg states since she was in her 20's she would control her wt loss by forcing herself to vomit after eating so she could eat more. Denies having an eating disorder and denies recent forced vomiting. Denies any current exercise routine and states she does not like to exercise. Her goal wt is 115. States she has a good appetite but limits her intake. She says she has a bad sweet tooth especially for chocolate. Cervical vertebral fracture 05/07/201105/16 Muscle spasms of head or neck 08/26/2009 Pain in joint, pelvic region and thigh 0 06/01/2016 Other chronic cystitis 12/21/2008 7 Hypertonicity of bladder 12/21/2008 017 PLANTAR Fasciitis 08/14/2006 06/01/2016 Sprain of neck 04/17/2006 06/01/2016 Rheumatoid arthritis 03/18/2006 06/01/2016 CHOLELITHIASIS SEE ALSO GALL BLADD WITHOUT CHOLECYSTITIS( Without obstruction) 01/11/2006 06/01/2016 HEPATITIS C CARRIER--treated with IFN and ribavirin and is in remission (as of 05/21) 05/29/2005 06/01/2016 Conductive hearing loss of combined types 200506/01/2016 Migraine variant 05/29/2005 06/01/2016 CHRONIC BRONCHITIS NOS--related to smoking 05/2906/01/2016 OSTEOARTHROS NOS-OTHER SITE- -OA vs RA treated with NSAIDs in past. 05/29/2005 06/01/2016 Overview: actonel 2010 start from hx in EPIC, fosamax 2011 started Cleft lip, unspecified 01/24/2005 7 documented as of this encounter (statuses as of 09/29/2022) [facility]10-07-2022 History of Past illness Narrative* Problem Noted Date Resolved Date Chest pain 01/19/2022 01/20/2022 COPD with exacerbation 01/17/2022 Hypertension 01/17/2022 07/06/2022 Hypokalemia 01/17/2022 01/18/2022 Acute pneumonia 01/15/2022 07/06/2022 Pancreatitis 08/04/2020 01/18/2022 Acute left ankle pain 12/18/2017 07/06/2022 Chronic pain syndrome 06/27/2015 06/01/2016 Encounter for long-term (current) use of medicat ions 11/15/2014 06/01/2016 Lumbago 09/02/2014 06/01/2016 Cataract of both eyes 10/26/2013 06/01/2016 Overview: [facility] [place] 10/22/2013 - Combined forms of age-related cataract of both eyes Eating disorder 02/16/2013 06/01/2016 Cervical strain 01/22/2013 06/01/2016 Cervical disc disease 01/22/2013 06/01/2016 Xerosis cutis 09/07/2012 06/01/2016 Arthritis of left knee 02/15/2012 7 Leg ulcer, left 02/15/2012 06/01/2016 Closed fracture of lateral malleolus 11/23/2011 06/01/2016 Contusion of toe 11/23/2011 06/01/2016 Capsulitis 11/06/2011 06/01/2016 Pruritus of forearm 09/07/2011 06/01/2016 Pruritus - disorder 09/07/2011 06/01/2016 Eczematous dermatitis 09/07/2011 06/01/2016 Lichenoid dermatitis 09/07/2011 06/01/2016 Excoriation 09/07/2011 06/01/2016 Nasal septal deviation 08/29/2011 7 Orbital mass 07/15/2011 06/01/2016 Obesity 05/09/2011 01/14/2014 Last Assessment & Plan: Pt disappointed in the amount of weight loss she has had over the past month while on the prescription Adipex 37.5mg daily. States she eats oatmeal in the morning every other day and at night has 1/3 of a bag of kettlecorn popcorn. States she does not eat anything else throughout the day. Ms Berg states since she was in her 20's she would control her wt loss by forcing herself to vomit after eating so she could eat more. Denies having an eating disorder and denies recent forced vomiting. Denies any current exercise routine and states she does not like to exercise. Her goal wt is 115. States she has a good appetite but limits her intake. She says she has a bad sweet tooth especially for chocolate. Cervical vertebral fracture 05/07/201105/16 Muscle spasms of head or neck 08/26/2009 Pain in joint, pelvic region and thigh 0 06/01/2016 Other chronic cystitis 12/21/2008 7 Hypertonicity of bladder 12/21/2008 017 PLANTAR Fasciitis 08/14/2006 06/01/2016 Sprain of neck 04/17/2006 06/01/2016 Rheumatoid arthritis 03/18/2006 06/01/2016 CHOLELITHIASIS SEE ALSO GALL BLADD WITHOUT CHOLECYSTITIS( Without obstruction) 01/11/2006 06/01/2016 HEPATITIS C CARRIER--treated with IFN and ribavirin and is in remission (as of 05/21) 05/29/2005 06/01/2016 Conductive hearing loss of combined types 200506/01/2016 Migraine variant 05/29/2005 06/01/2016 CHRONIC BRONCHITIS NOS--related to smoking 05/2906/01/2016 OSTEOARTHROS NOS-OTHER SITE- -OA vs RA treated with NSAIDs in past. 05/29/2005 06/01/2016 Overview: actonel 2009 start from hx in EPIC, fosamax 2011 started Cleft lip, unspecified 01/24/2005 7 documented as of this encounter (statuses as of 10/09/2022) [facility]10-07-2022 History of Past illness Narrative* Problem Noted Date Resolved Date Chest pain 01/19/2022 01/20/2022 COPD with exacerbation 01/17/2022 Hypertension 01/17/2022 07/06/2022 Hypokalemia 01/17/2022 01/18/2022 Acute pneumonia 01/15/2022 07/06/2022 Pancreatitis 08/04/2020 01/18/2022 Acute left ankle pain 12/18/2017 07/06/2022 Chronic pain syndrome 06/27/2015 06/01/2016 Encounter for long-term (current) use of medicat ions 11/15/2014 06/01/2016 Lumbago 09/02/2014 06/01/2016 Cataract of both eyes 10/26/2013 06/01/2016 Overview: [facility] 10/22/2013 - Combined forms of age-related cataract of both eyes Eating disorder 02/16/2013 06/01/2016 Cervical strain 01/22/2013 06/01/2016 Cervical disc disease 01/22/2013 06/01/2016 Xerosis cutis 09/07/2012 06/01/2016 Arthritis of left knee 02/15/2012 7 Leg ulcer, left 02/15/2012 06/01/2016 Closed fracture of lateral malleolus 11/23/2011 06/01/2016 Contusion of toe 11/23/2011 06/01/2016 Capsulitis 11/06/2011 06/01/2016 Pruritus of forearm 09/07/2011 06/01/2016 Pruritus - disorder 09/07/2011 06/01/2016 Eczematous dermatitis 09/07/2011 06/01/2016 Lichenoid dermatitis 09/07/2011 06/01/2016 Excoriation 09/07/2011 06/01/2016 Nasal septal deviation 08/29/2011 7 Orbital mass 07/15/2011 06/01/2016 Obesity 05/09/2011 01/14/2014 Last Assessment & Plan: Pt disappointed in the amount of weight loss she has had over the past month while on the prescription Adipex 37.5mg daily. States she eats oatmeal in the morning every other day and at night has 1/3 of a bag of kettlecorn popcorn. States she does not eat anything else throughout the day. Ms Berg states since she was in her 20's she would control her wt loss by forcing herself to vomit after eating so she could eat more. Denies having an eating disorder and denies recent forced vomiting. Denies any current exercise routine and states she does not like to exercise. Her goal wt is 115. States she has a good appetite but limits her intake. She says she has a bad sweet tooth especially for chocolate. Cervical vertebral fracture 05/07/201105/16 Muscle spasms of head or neck 08/26/2009 Pain in joint, pelvic region and thigh 0 06/01/2016 Other chronic cystitis 12/21/2008 7 Hypertonicity of bladder 12/21/2008 017 PLANTAR Fasciitis 08/14/2006 06/01/2016 Sprain of neck 04/17/2006 06/01/2016 Rheumatoid arthritis 03/18/2006 06/01/2016 CHOLELITHIASIS SEE ALSO GALL BLADD WITHOUT CHOLECYSTITIS( Without obstruction) 01/11/2006 06/01/2016 HEPATITIS C CARRIER--treated with IFN and ribavirin and is in remission (as of 05/21) 05/29/2005 06/01/2016 Conductive hearing loss of combined types 200506/01/2016 Migraine variant 05/29/2005 06/01/2016 CHRONIC BRONCHITIS NOS--related to smoking 05/2906/01/2016 OSTEOARTHROS NOS-OTHER SITE- -OA vs RA treated with NSAIDs in past. 05/29/2005 06/01/2016 Overview: actonel 2010 start from hx in EPIC, fosamax 2011 started Cleft lip, unspecified 01/24/2005 7 documented as of this encounter (statuses as of 10/15/2022) [facility]2022 History of Past illness Narrative* Problem Noted Date Diagnosed Date Resolved Date Chest pain 01/19/2022 01/20/2022 COPD with exacerbation 01/17/202201/20 Hypertension 01/17/2022 07/06/2022 Hypokalemia 01/17/2022 01/18/2022 Acute pneumonia 01/15/2022 07/06/2022 Pancreatitis 08/04/2020 01/18/2022 Acute left ankle pain 12/18/20172022 Chronic pain syndrome 06/27/20152016 Encounter for long-term (cur rent) use of medications 11/15/2014 06/01/2016 Lumbago 09/02/2014 06/01/2016 Cataract of both eyes 10/26/20132016 Overview: [facility] 10/22/2013 - Combined forms of age-related cataract of both eyes Eating disorder 02/16/2013 06/01/2016 Cervical strain 01/22/2013 06/01/2016 Cervical disc disease 01/22/20132016 Xerosis cutis 09/07/2012 06/01/2016 Arthritis of left knee 02/15/201206/01 Leg ulcer, left 02/15/2012 06/01/2016 Closed fracture of lateral malleolus 11/23/2011 06/01/2016 Contusion of toe 11/23/2011 06/01/2016 Capsulitis 11/06/2011 06/01/2016 Pruritus of forearm 09/07/2011 06/01/19 17 Pruritus - disorder 09/07/2011 06/01/19 17 Eczematous dermatitis 09/07/20112016 Lichenoid dermatitis 09/07/2011 017 Excoriation 09/07/2011 06/01/2016 Nasal septal deviation 08/29/201106/01 Orbital mass 07/15/2011 06/01/2016 Obesity 05/09/2011 01/14/2014 Last Assessment & Plan: Pt disappointed in the amount of weight loss she has had over the past month while on the prescription Adipex 37.5mg daily. States she eats oatmeal in the morning every other day and at night has 1/3 of a bag of kettlecorn popcorn. States she does not eat anything else throughout the day. Ms Berg states since she was in her 20's she would control her wt loss by forcing herself to vomit after eating so she could eat more. Denies having an eating disorder and denies recent forced vomiting. Denies any current exercise routine and states she does not like to exercise. Her goal wt is 115. States she has a good appetite but limits her intake. She says she has a bad sweet tooth especially for chocolate. Cervical vertebral fracture 05/07/2011 06/01/2016 Muscle spasms of head or neck 08/26/2009 06/01/2016 Pain in joint, pelvic region and thigh 05/09/2009 06/01/2016 Other chronic cystitis 12/21/200806/01 Hypertonicity of bladder 12/21/2008 PLANTAR Fasciitis 08/14/2006 06/01/2016 Sprain of neck 04/17/2006 06/01/2016 Rheumatoid arthritis 03/18/2006 017 CHOLELITHIASIS SEE ALSO GALL BLADD WITHOUT CHOLECYSTITIS( Without obstruction) 01/11/200605/16 HEPATITIS C CARRIER--treated with IFN and ribavirin and is in remission (as of 05/21) 05/29/2005 06/01/2016 Conductive hearing loss of combined types 05/29/2005 06/01/2016 Migraine variant 05/29/2005 06/01/2016 CHRONIC BRONCHITIS NOS--related to smoking 05/29/2005 06/01/2016 OSTEOARTHROS NOS-OTHER SITE- -OA vs RA treated with NSAIDs in past. 05/29/2005 06/01/2016 Overview: actonel 2009 start from hx in EPIC, fosamax 2011 started Cleft lip, unspecified 01/24/200506/01 documented as of this encounter (statuses as of 11/01/2022) [facility] History of Past illness Narrative* Problem Noted Date Diagnosed Date Resolved Date Chest pain 01/19/2022 01/20/2022 COPD with exacerbation 01/17/202201/20 Hypertension 01/17/2022 07/06/2022 Hypokalemia 01/17/2022 01/18/2022 Acute pneumonia 01/15/2022 07/06/2022 Pancreatitis 08/04/2020 01/18/2022 Acute left ankle pain 12/18/20172022 Chronic pain syndrome 06/27/20152016 Encounter for long-term (cur rent) use of medications 11/15/2014 06/01/2016 Lumbago 09/02/2014 06/01/2016 Cataract of both eyes 10/26/20132016 Overview: [facility] 10/22/2013 - Combined forms of age-related cataract of both eyes Eating disorder 02/16/2013 06/01/2016 Cervical strain 01/22/2013 06/01/2016 Cervical disc disease 01/22/20132016 Xerosis cutis 09/07/2012 06/01/2016 Arthritis of left knee 02/15/201206/01 Leg ulcer, left 02/15/2012 06/01/2016 Closed fracture of lateral malleolus 11/23/2011 06/01/2016 Contusion of toe 11/23/2011 06/01/2016 Capsulitis 11/06/2011 06/01/2016 Pruritus of forearm 09/07/2011 06/01/19 17 Pruritus - disorder 09/07/2011 06/01/19 17 Eczematous dermatitis 09/07/20112016 Lichenoid dermatitis 09/07/2011 017 Excoriation 09/07/2011 06/01/2016 Nasal septal deviation 08/29/201106/01 Orbital mass 07/15/2011 06/01/2016 Obesity 05/09/2011 01/14/2014 Last Assessment & Plan: Pt disappointed in the amount of weight loss she has had over the past month while on the prescription Adipex 37.5mg daily. States she eats oatmeal in the morning every other day and at night has 1/3 of a bag of kettlecorn popcorn. States she does not eat anything else throughout the day. Ms Berg states since she was in her 20's she would control her wt loss by forcing herself to vomit after eating so she could eat more. Denies having an eating disorder and denies recent forced vomiting. Denies any current exercise routine and states she does not like to exercise. Her goal wt is 115. States she has a good appetite but limits her intake. She says she has a bad sweet tooth especially for chocolate. Cervical vertebral fracture 05/07/2011 06/01/2016 Muscle spasms of head or neck 08/26/2009 06/01/2016 Pain in joint, pelvic region and thigh 05/09/2009 06/01/2016 Other chronic cystitis 12/21/200806/01 Hypertonicity of bladder 12/21/2008 PLANTAR Fasciitis 08/14/2006 06/01/2016 Sprain of neck 04/17/2006 06/01/2016 Rheumatoid arthritis 03/18/2006 017 CHOLELITHIASIS SEE ALSO GALL BLADD WITHOUT CHOLECYSTITIS( Without obstruction) 01/11/200605/16 HEPATITIS C CARRIER--treated with IFN and ribavirin and is in remission (as of 05/21) 05/29/2005 06/01/2016 Conductive hearing loss of combined types 05/29/2005 06/01/2016 Migraine variant 05/29/2005 06/01/2016 CHRONIC BRONCHITIS NOS--related to smoking 05/29/2005 06/01/2016 OSTEOARTHROS NOS-OTHER SITE- -OA vs RA treated with NSAIDs in past. 05/29/2005 06/01/2016 Overview: actonel 2010 start from hx in EPIC, fosamax 2011 started Cleft lip, unspecified 01/24/200506/01 documented as of this encounter (statuses as of 11/24/2022) [facility] History of Past illness Narrative* Problem Noted Date Diagnosed Date Resolved Date Chest pain 01/19/2022 01/20/2022 COPD with exacerbation 01/17/202201/20 Hypertension 01/17/2022 07/06/2022 Hypokalemia 01/17/2022 01/18/2022 Acute pneumonia 01/15/2022 07/06/2022 Pancreatitis 08/04/2020 01/18/2022 Acute left ankle pain 12/18/20172022 Chronic pain syndrome 06/27/20152016 Encounter for long-term (cur rent) use of medications 11/15/2014 06/01/2016 Lumbago 09/02/2014 06/01/2016 Cataract of both eyes 10/26/20132016 Overview: [facility] [place] 10/22/2013 - Combined forms of age-related cataract of both eyes Eating disorder 02/16/2013 06/01/2016 Cervical strain 01/22/2013 06/01/2016 Cervical disc disease 01/22/20132016 Xerosis cutis 09/07/2012 06/01/2016 Arthritis of left knee 02/15/201206/01 Leg ulcer, left 02/15/2012 06/01/2016 Closed fracture of lateral malleolus 11/23/2011 06/01/2016 Contusion of toe 11/23/2011 06/01/2016 Capsulitis 11/06/2011 06/01/2016 Pruritus of forearm 09/07/2011 06/01/19 17 Pruritus - disorder 09/07/2011 06/01/19 17 Eczematous dermatitis 09/07/20112016 Lichenoid dermatitis 09/07/2011 017 Excoriation 09/07/2011 06/01/2016 Nasal septal deviation 08/29/201106/01 Orbital mass 07/15/2011 06/01/2016 Obesity 05/09/2011 01/14/2014 Last Assessment & Plan: Pt disappointed in the amount of weight loss she has had over the past month while on the prescription Adipex 37.5mg daily. States she eats oatmeal in the morning every other day and at night has 1/3 of a bag of kettlecorn popcorn. States she does not eat anything else throughout the day. Ms Berg states since she was in her 20's she would control her wt loss by forcing herself to vomit after eating so she could eat more. Denies having an eating disorder and denies recent forced vomiting. Denies any current exercise routine and states she does not like to exercise. Her goal wt is 115. States she has a good appetite but limits her intake. She says she has a bad sweet tooth especially for chocolate. Cervical vertebral fracture 05/07/2011 06/01/2016 Muscle spasms of head or neck 08/26/2009 06/01/2016 Pain in joint, pelvic region and thigh 05/09/2009 06/01/2016 Other chronic cystitis 12/21/200806/01 Hypertonicity of bladder 12/21/2008 PLANTAR Fasciitis 08/14/2006 06/01/2016 Sprain of neck 04/17/2006 06/01/2016 Rheumatoid arthritis 03/18/2006 017 CHOLELITHIASIS SEE ALSO GALL BLADD WITHOUT CHOLECYSTITIS( Without obstruction) 01/11/200605/16 HEPATITIS C CARRIER--treated with IFN and ribavirin and is in remission (as of 05/21) 05/29/2005 06/01/2016 Conductive hearing loss of combined types 05/29/2005 06/01/2016 Migraine variant 05/29/2005 06/01/2016 CHRONIC BRONCHITIS NOS--related to smoking 05/29/2005 06/01/2016 OSTEOARTHROS NOS-OTHER SITE- -OA vs RA treated with NSAIDs in past. 05/29/2005 06/01/2016 Overview: actonel 2010 start from hx in EPIC, fosamax 2011 started Cleft lip, unspecified 01/24/200506/01 documented as of this encounter (statuses as of 11/28/2022) [facility]10-07-2022 History of Past illness Narrative* Problem Noted Date Diagnosed Date Resolved Date Chest pain 01/19/2022 01/20/2022 COPD with exacerbation 01/17/202201/20 Hypertension 01/17/2022 07/06/2022 Hypokalemia 01/17/2022 01/18/2022 Acute pneumonia 01/15/2022 07/06/2022 Pancreatitis 08/04/2020 01/18/2022 Acute left ankle pain 12/18/20172022 Chronic pain syndrome 06/27/20152016 Encounter for long-term (cur rent) use of medications 11/15/2014 06/01/2016 Lumbago 09/02/2014 06/01/2016 Cataract of both eyes 10/26/20132016 Overview: [facility] 10/22/2013 - Combined forms of age-related cataract of both eyes Eating disorder 02/16/2013 06/01/2016 Cervical strain 01/22/2013 06/01/2016 Cervical disc disease 01/22/20132016 Xerosis cutis 09/07/2012 06/01/2016 Arthritis of left knee 02/15/201206/01 Leg ulcer, left 02/15/2012 06/01/2016 Closed fracture of lateral malleolus 11/23/2011 06/01/2016 Contusion of toe 11/23/2011 06/01/2016 Capsulitis 11/06/2011 06/01/2016 Pruritus of forearm 09/07/2011 06/01/19 17 Pruritus - disorder 09/07/2011 06/01/19 17 Eczematous dermatitis 09/07/20112016 Lichenoid dermatitis 09/07/2011 017 Excoriation 09/07/2011 06/01/2016 Nasal septal deviation 08/29/201106/01 Orbital mass 07/15/2011 06/01/2016 Obesity 05/09/2011 01/14/2014 Last Assessment & Plan: Pt disappointed in the amount of weight loss she has had over the past month while on the prescription Adipex 37.5mg daily. States she eats oatmeal in the morning every other day and at night has 1/3 of a bag of kettlecorn popcorn. States she does not eat anything else throughout the day. Ms Berg states since she was in her 20's she would control her wt loss by forcing herself to vomit after eating so she could eat more. Denies having an eating disorder and denies recent forced vomiting. Denies any current exercise routine and states she does not like to exercise. Her goal wt is 115. States she has a good appetite but limits her intake. She says she has a bad sweet tooth especially for chocolate. Cervical vertebral fracture 05/07/2011 06/01/2016 Muscle spasms of head or neck 08/26/2009 06/01/2016 Pain in joint, pelvic region and thigh 05/09/2009 06/01/2016 Other chronic cystitis 12/21/200806/01 Hypertonicity of bladder 12/21/2008 PLANTAR Fasciitis 08/14/2006 06/01/2016 Sprain of neck 04/17/2006 06/01/2016 Rheumatoid arthritis 03/18/2006 017 CHOLELITHIASIS SEE ALSO GALL BLADD WITHOUT CHOLECYSTITIS( Without obstruction) 01/11/200605/16 HEPATITIS C CARRIER--treated with IFN and ribavirin and is in remission (as of 05/21) 05/29/2005 06/01/2016 Conductive hearing loss of combined types 05/29/2005 06/01/2016 Migraine variant 05/29/2005 06/01/2016 CHRONIC BRONCHITIS NOS--related to smoking 05/29/2005 06/01/2016 OSTEOARTHROS NOS-OTHER SITE- -OA vs RA treated with NSAIDs in past. 05/29/2005 06/01/2016 Overview: actonel 2009 start from hx in EPIC, fosamax 2011 started Cleft lip, unspecified 01/24/200506/01 documented as of this encounter (statuses as of 12/10/2022) [facility]10-07-2022 History of Past illness Narrative* Problem Noted Date Diagnosed Date Resolved Date Chest pain 01/19/2022 01/20/2022 COPD with exacerbation 01/17/202201/20 Hypertension 01/17/2022 07/06/2022 Hypokalemia 01/17/2022 01/18/2022 Acute pneumonia 01/15/2022 07/06/2022 Pancreatitis 08/04/2020 01/18/2022 Acute left ankle pain 12/18/20172022 Chronic pain syndrome 06/27/20152016 Encounter for long-term (cur rent) use of medications 11/15/2014 06/01/2016 Lumbago 09/02/2014 06/01/2016 Cataract of both eyes 10/26/20132016 Overview: [facility] 10/22/2013 - Combined forms of age-related cataract of both eyes Eating disorder 02/16/2013 06/01/2016 Cervical strain 01/22/2013 06/01/2016 Cervical disc disease 01/22/20132016 Xerosis cutis 09/07/2012 06/01/2016 Arthritis of left knee 02/15/201206/01 Leg ulcer, left 02/15/2012 06/01/2016 Closed fracture of lateral malleolus 11/23/2011 06/01/2016 Contusion of toe 11/23/2011 06/01/2016 Capsulitis 11/06/2011 06/01/2016 Pruritus of forearm 09/07/2011 06/01/19 17 Pruritus - disorder 09/07/2011 06/01/19 17 Eczematous dermatitis 09/07/20112016 Lichenoid dermatitis 09/07/2011 017 Excoriation 09/07/2011 06/01/2016 Nasal septal deviation 08/29/201106/01 Orbital mass 07/15/2011 06/01/2016 Obesity 05/09/2011 01/14/2014 Last Assessment & Plan: Pt disappointed in the amount of weight loss she has had over the past month while on the prescription Adipex 37.5mg daily. States she eats oatmeal in the morning every other day and at night has 1/3 of a bag of kettlecorn popcorn. States she does not eat anything else throughout the day. Ms Berg states since she was in her 20's she would control her wt loss by forcing herself to vomit after eating so she could eat more. Denies having an eating disorder and denies recent forced vomiting. Denies any current exercise routine and states she does not like to exercise. Her goal wt is 115. States she has a good appetite but limits her intake. She says she has a bad sweet tooth especially for chocolate. Cervical vertebral fracture 05/07/2011 06/01/2016 Muscle spasms of head or neck 08/26/2009 06/01/2016 Pain in joint, pelvic region and thigh 05/09/2009 06/01/2016 Other chronic cystitis 12/21/200806/01 Hypertonicity of bladder 12/21/2008 PLANTAR Fasciitis 08/14/2006 06/01/2016 Sprain of neck 04/17/2006 06/01/2016 Rheumatoid arthritis 03/18/2006 017 CHOLELITHIASIS SEE ALSO GALL BLADD WITHOUT CHOLECYSTITIS( Without obstruction) 01/11/200605/16 HEPATITIS C CARRIER--treated with IFN and ribavirin and is in remission (as of 05/21) 05/29/2005 06/01/2016 Conductive hearing loss of combined types 05/29/2005 06/01/2016 Migraine variant 05/29/2005 06/01/2016 CHRONIC BRONCHITIS NOS--related to smoking 05/29/2005 06/01/2016 OSTEOARTHROS NOS-OTHER SITE- -OA vs RA treated with NSAIDs in past. 05/29/2005 06/01/2016 Overview: actonel 2010 start from hx in EPIC, fosamax 2011 started Cleft lip, unspecified 01/24/200506/01 documented as of this encounter (statuses as of 01/18/2023) [facility]10-07-2022 History of Past illness Narrative* Problem Noted Date Diagnosed Date Resolved Date Chest pain 01/19/2022 01/20/2022 COPD with exacerbation 01/17/202201/20 Hypertension 01/17/2022 07/06/2022 Hypokalemia 01/17/2022 01/18/2022 Acute pneumonia 01/15/2022 07/06/2022 Pancreatitis 08/04/2020 01/18/2022 Acute left ankle pain 12/18/20172022 Chronic pain syndrome 06/27/20152016 Encounter for long-term (cur rent) use of medications 11/15/2014 06/01/2016 Lumbago 09/02/2014 06/01/2016 Cataract of both eyes 10/26/20132016 Overview: [facility] 10/22/2013 - Combined forms of age-related cataract of both eyes Eating disorder 02/16/2013 06/01/2016 Cervical strain 01/22/2013 06/01/2016 Cervical disc disease 01/22/20132016 Xerosis cutis 09/07/2012 06/01/2016 Arthritis of left knee 02/15/201206/01 Leg ulcer, left 02/15/2012 06/01/2016 Closed fracture of lateral malleolus 11/23/2011 06/01/2016 Contusion of toe 11/23/2011 06/01/2016 Capsulitis 11/06/2011 06/01/2016 Pruritus of forearm 09/07/2011 06/01/19 17 Pruritus - disorder 09/07/2011 06/01/19 17 Eczematous dermatitis 09/07/20112016 Lichenoid dermatitis 09/07/2011 017 Excoriation 09/07/2011 06/01/2016 Nasal septal deviation 08/29/201106/01 Orbital mass 07/15/2011 06/01/2016 Obesity 05/09/2011 01/14/2014 Last Assessment & Plan: Pt disappointed in the amount of weight loss she has had over the past month while on the prescription Adipex 37.5mg daily. States she eats oatmeal in the morning every other day and at night has 1/3 of a bag of kettlecorn popcorn. States she does not eat anything else throughout the day. Ms Berg states since she was in her 20's she would control her wt loss by forcing herself to vomit after eating so she could eat more. Denies having an eating disorder and denies recent forced vomiting. Denies any current exercise routine and states she does not like to exercise. Her goal wt is 115. States she has a good appetite but limits her intake. She says she has a bad sweet tooth especially for chocolate. Cervical vertebral fracture 05/07/2011 06/01/2016 Muscle spasms of head or neck 08/26/2009 06/01/2016 Pain in joint, pelvic region and thigh 05/09/2009 06/01/2016 Other chronic cystitis 12/21/200806/01 Hypertonicity of bladder 12/21/2008 PLANTAR Fasciitis 08/14/2006 06/01/2016 Sprain of neck 04/17/2006 06/01/2016 Rheumatoid arthritis 03/18/2006 017 CHOLELITHIASIS SEE ALSO GALL BLADD WITHOUT CHOLECYSTITIS( Without obstruction) 01/11/200605/16 HEPATITIS C CARRIER--treated with IFN and ribavirin and is in remission (as of 05/21) 05/29/2005 06/01/2016 Conductive hearing loss of combined types 05/29/2005 06/01/2016 Migraine variant 05/29/2005 06/01/2016 CHRONIC BRONCHITIS NOS--related to smoking 05/29/2005 06/01/2016 OSTEOARTHROS NOS-OTHER SITE- -OA vs RA treated with NSAIDs in past. 05/29/2005 06/01/2016 Overview: actonel 2010 start from hx in EPIC, fosamax 2011 started Cleft lip, unspecified 01/24/200506/01 documented as of this encounter (statuses as of 02/17/2023) [facility]10-[facility]-2022 History of Past illness Narrative* Problem Noted Date Diagnosed Date Resolved Date Chest pain 01/19/2022 01/20/2022 COPD with exacerbation 01/17/202201/20 Hypertension 01/17/2022 07/06/2022 Hypokalemia 01/17/2022 01/18/2022 Acute pneumonia 01/15/2022 07/06/2022 Pancreatitis 08/04/2020 01/18/2022 Acute left ankle pain 12/18/20172022 Chronic pain syndrome 06/27/20152016 Encounter for long-term (cur rent) use of medications 11/15/2014 06/01/2016 Lumbago 09/02/2014 06/01/2016 Cataract of both eyes 10/26/20132016 Overview: [facility] 10/22/2013 - Combined forms of age-related cataract of both eyes Eating disorder 02/16/2013 06/01/2016 Cervical strain 01/22/2013 06/01/2016 Cervical disc disease 01/22/20132016 Xerosis cutis 09/07/2012 06/01/2016 Arthritis of left knee 02/15/201206/01 Leg ulcer, left 02/15/2012 06/01/2016 Closed fracture of lateral malleolus 11/23/2011 06/01/2016 Contusion of toe 11/23/2011 06/01/2016 Capsulitis 11/06/2011 06/01/2016 Pruritus of forearm 09/07/2011 06/01/19 17 Pruritus - disorder 09/07/2011 06/01/19 17 Eczematous dermatitis 09/07/20112016 Lichenoid dermatitis 09/07/2011 017 Excoriation 09/07/2011 06/01/2016 Nasal septal deviation 08/29/201106/01 Orbital mass 07/15/2011 06/01/2016 Obesity 05/09/2011 01/14/2014 Last Assessment & Plan: Pt disappointed in the amount of weight loss she has had over the past month while on the prescription Adipex 37.5mg daily. States she eats oatmeal in the morning every other day and at night has 1/3 of a bag of kettlecorn popcorn. States she does not eat anything else throughout the day. Ms Berg states since she was in her 20's she would control her wt loss by forcing herself to vomit after eating so she could eat more. Denies having an eating disorder and denies recent forced vomiting. Denies any current exercise routine and states she does not like to exercise. Her goal wt is 115. States she has a good appetite but limits her intake. She says she has a bad sweet tooth especially for chocolate. Cervical vertebral fracture 05/07/2011 06/01/2016 Muscle spasms of head or neck 08/26/2009 06/01/2016 Pain in joint, pelvic region and thigh 05/09/2009 06/01/2016 Other chronic cystitis 12/21/200806/01 Hypertonicity of bladder 12/21/2008 PLANTAR Fasciitis 08/14/2006 06/01/2016 Sprain of neck 04/17/2006 06/01/2016 Rheumatoid arthritis 03/18/2006 017 CHOLELITHIASIS SEE ALSO GALL BLADD WITHOUT CHOLECYSTITIS( Without obstruction) 01/11/200605/16 HEPATITIS C CARRIER--treated with IFN and ribavirin and is in remission (as of 05/21) 05/29/2005 06/01/2016 Conductive hearing loss of combined types 05/29/2005 06/01/2016 Migraine variant 05/29/2005 06/01/2016 CHRONIC BRONCHITIS NOS--related to smoking 05/29/2005 06/01/2016 OSTEOARTHROS NOS-OTHER SITE- -OA vs RA treated with NSAIDs in past. 05/29/2005 06/01/2016 Overview: actonel 2009 start from hx in EPIC, fosamax 2011 started Cleft lip, unspecified 01/24/200506/01 documented as of this encounter (statuses as of 02/17/2023) [facility]10-07-2022 History of Past illness Narrative* Problem Noted Date Diagnosed Date Resolved Date Chest pain 01/19/2022 01/20/2022 COPD with exacerbation 01/17/202201/20 Hypertension 01/17/2022 07/06/2022 Hypokalemia 01/17/2022 01/18/2022 Acute pneumonia 01/15/2022 07/06/2022 Pancreatitis 08/04/2020 01/18/2022 Acute left ankle pain 12/18/20172022 Chronic pain syndrome 06/27/20152016 Encounter for long-term (cur rent) use of medications 11/15/2014 06/01/2016 Lumbago 09/02/2014 06/01/2016 Cataract of both eyes 10/26/20132016 Overview: [facility] 10/22/2013 - Combined forms of age-related cataract of both eyes Eating disorder 02/16/2013 06/01/2016 Cervical strain 01/22/2013 06/01/2016 Cervical disc disease 01/22/20132016 Xerosis cutis 09/07/2012 06/01/2016 Arthritis of left knee 02/15/201206/01 Leg ulcer, left 02/15/2012 06/01/2016 Closed fracture of lateral malleolus 11/23/2011 06/01/2016 Contusion of toe 11/23/2011 06/01/2016 Capsulitis 11/06/2011 06/01/2016 Pruritus of forearm 09/07/2011 06/01/19 17 Pruritus - disorder 09/07/2011 06/01/19 17 Eczematous dermatitis 09/07/20112016 Lichenoid dermatitis 09/07/2011 017 Excoriation 09/07/2011 06/01/2016 Nasal septal deviation 08/29/201106/01 Orbital mass 07/15/2011 06/01/2016 Obesity 05/09/2011 01/14/2014 Last Assessment & Plan: Pt disappointed in the amount of weight loss she has had over the past month while on the prescription Adipex 37.5mg daily. States she eats oatmeal in the morning every other day and at night has 1/3 of a bag of kettlecorn popcorn. States she does not eat anything else throughout the day. Ms Berg states since she was in her 20's she would control her wt loss by forcing herself to vomit after eating so she could eat more. Denies having an eating disorder and denies recent forced vomiting. Denies any current exercise routine and states she does not like to exercise. Her goal wt is 115. States she has a good appetite but limits her intake. She says she has a bad sweet tooth especially for chocolate. Cervical vertebral fracture 05/07/2011 06/01/2016 Muscle spasms of head or neck 08/26/2009 06/01/2016 Pain in joint, pelvic region and thigh 05/09/2009 06/01/2016 Other chronic cystitis 12/21/200806/01 Hypertonicity of bladder 12/21/2008 PLANTAR Fasciitis 08/14/2006 06/01/2016 Sprain of neck 04/17/2006 06/01/2016 Rheumatoid arthritis 03/18/2006 017 CHOLELITHIASIS SEE ALSO GALL BLADD WITHOUT CHOLECYSTITIS( Without obstruction) 01/11/200605/16 HEPATITIS C CARRIER--treated with IFN and ribavirin and is in remission (as of 05/21) 05/29/2005 06/01/2016 Conductive hearing loss of combined types 05/29/2005 06/01/2016 Migraine variant 05/29/2005 06/01/2016 CHRONIC BRONCHITIS NOS--related to smoking 05/29/2005 06/01/2016 OSTEOARTHROS NOS-OTHER SITE- -OA vs RA treated with NSAIDs in past. 05/29/2005 06/01/2016 Overview: actonel 2009 start from hx in EPIC, fosamax 2011 started Cleft lip, unspecified 01/24/200506/01 documented as of this encounter (statuses as of 05/28/2023) [facility]20[facility] History of Past illness Narrative* Problem Noted Date Diagnosed Date Resolved Date Chest pain 01/19/2022 01/20/2022 COPD with exacerbation 01/17/202201/20 Hypertension 01/17/2022 07/06/2022 Hypokalemia 01/17/2022 01/18/2022 Acute pneumonia 01/15/2022 07/06/2022 Pancreatitis 08/04/2020 01/18/2022 Acute left ankle pain 12/18/20172022 Chronic pain syndrome 06/27/20152016 Encounter for long-term (cur rent) use of medications 11/15/2014 06/01/2016 Lumbago 09/02/2014 06/01/2016 Cataract of both eyes 10/26/20132016 Overview: [facility] 10/22/2013 - Combined forms of age-related cataract of both eyes Eating disorder 02/16/2013 06/01/2016 Cervical strain 01/22/2013 06/01/2016 Cervical disc disease 01/22/20132016 Xerosis cutis 09/07/2012 06/01/2016 Arthritis of left knee 02/15/201206/01 Leg ulcer, left 02/15/2012 06/01/2016 Closed fracture of lateral malleolus 11/23/2011 06/01/2016 Contusion of toe 11/23/2011 06/01/2016 Capsulitis 11/06/2011 06/01/2016 Pruritus of forearm 09/07/2011 06/01/19 17 Pruritus - disorder 09/07/2011 06/01/19 17 Eczematous dermatitis 09/07/20112016 Lichenoid dermatitis 09/07/2011 017 Excoriation 09/07/2011 06/01/2016 Nasal septal deviation 08/29/201106/01 Orbital mass 07/15/2011 06/01/2016 Obesity 05/09/2011 01/14/2014 Last Assessment & Plan: Pt disappointed in the amount of weight loss she has had over the past month while on the prescription Adipex 37.5mg daily. States she eats oatmeal in the morning every other day and at night has 1/3 of a bag of kettlecorn popcorn. States she does not eat anything else throughout the day. Ms Berg states since she was in her 20's she would control her wt loss by forcing herself to vomit after eating so she could eat more. Denies having an eating disorder and denies recent forced vomiting. Denies any current exercise routine and states she does not like to exercise. Her goal wt is 115. States she has a good appetite but limits her intake. She says she has a bad sweet tooth especially for chocolate. Cervical vertebral fracture 05/07/2011 06/01/2016 Muscle spasms of head or neck 08/26/2009 06/01/2016 Pain in joint, pelvic region and thigh 05/09/2009 06/01/2016 Other chronic cystitis 12/21/200806/01 Hypertonicity of bladder 12/21/2008 PLANTAR Fasciitis 08/14/2006 06/01/2016 Sprain of neck 04/17/2006 06/01/2016 Rheumatoid arthritis 03/18/2006 017 CHOLELITHIASIS SEE ALSO GALL BLADD WITHOUT CHOLECYSTITIS( Without obstruction) 01/11/200605/16 HEPATITIS C CARRIER--treated with IFN and ribavirin and is in remission (as of 05/21) 05/29/2005 06/01/2016 Conductive hearing loss of combined types 05/29/2005 06/01/2016 Migraine variant 05/29/2005 06/01/2016 CHRONIC BRONCHITIS NOS--related to smoking 05/29/2005 06/01/2016 OSTEOARTHROS NOS-OTHER SITE- -OA vs RA treated with NSAIDs in past. 05/29/2005 06/01/2016 Overview: actonel 2009 start from hx in EPIC, fosamax 2011 started Cleft lip, unspecified 01/24/200506/01 documented as of this encounter (statuses as of 05/29/2023) [facility] History of Past illness Narrative* Problem Noted Date Diagnosed Date Resolved Date Chest pain 01/19/2022 01/20/2022 COPD with exacerbation 01/17/202201/20 Hypertension 01/17/2022 07/06/2022 Hypokalemia 01/17/2022 01/18/2022 Acute pneumonia 01/15/2022 07/06/2022 Pancreatitis 08/04/2020 01/18/2022 Acute left ankle pain 12/18/20172022 Chronic pain syndrome 06/27/20152016 Encounter for long-term (cur rent) use of medications 11/15/2014 06/01/2016 Lumbago 09/02/2014 06/01/2016 Cataract of both eyes 10/26/20132016 Overview: [facility] 10/22/2013 - Combined forms of age-related cataract of both eyes Eating disorder 02/16/2013 06/01/2016 Cervical strain 01/22/2013 06/01/2016 Cervical disc disease 01/22/20132016 Xerosis cutis 09/07/2012 06/01/2016 Arthritis of left knee 02/15/201206/01 Leg ulcer, left 02/15/2012 06/01/2016 Closed fracture of lateral malleolus 11/23/2011 06/01/2016 Contusion of toe 11/23/2011 06/01/2016 Capsulitis 11/06/2011 06/01/2016 Pruritus of forearm 09/07/2011 06/01/19 17 Pruritus - disorder 09/07/2011 06/01/19 17 Eczematous dermatitis 09/07/20112016 Lichenoid dermatitis 09/07/2011 017 Excoriation 09/07/2011 06/01/2016 Nasal septal deviation 08/29/201106/01 Orbital mass 07/15/2011 06/01/2016 Obesity 05/09/2011 01/14/2014 Last Assessment & Plan: Pt disappointed in the amount of weight loss she has had over the past month while on the prescription Adipex 37.5mg daily. States she eats oatmeal in the morning every other day and at night has 1/3 of a bag of kettlecorn popcorn. States she does not eat anything else throughout the day. Ms Berg states since she was in her 20's she would control her wt loss by forcing herself to vomit after eating so she could eat more. Denies having an eating disorder and denies recent forced vomiting. Denies any current exercise routine and states she does not like to exercise. Her goal wt is 115. States she has a good appetite but limits her intake. She says she has a bad sweet tooth especially for chocolate. Cervical vertebral fracture 05/07/2011 06/01/2016 Muscle spasms of head or neck 08/26/2009 06/01/2016 Pain in joint, pelvic region and thigh 05/09/2009 06/01/2016 Other chronic cystitis 12/21/200806/01 Hypertonicity of bladder 12/21/2008 PLANTAR Fasciitis 08/14/2006 06/01/2016 Sprain of neck 04/17/2006 06/01/2016 Rheumatoid arthritis 03/18/2006 017 CHOLELITHIASIS SEE ALSO GALL BLADD WITHOUT CHOLECYSTITIS( Without obstruction) 01/11/200605/16 HEPATITIS C CARRIER--treated with IFN and ribavirin and is in remission (as of 05/21) 05/29/2005 06/01/2016 Conductive hearing loss of combined types 05/29/2005 06/01/2016 Migraine variant 05/29/2005 06/01/2016 CHRONIC BRONCHITIS NOS--related to smoking 05/29/2005 06/01/2016 OSTEOARTHROS NOS-OTHER SITE- -OA vs RA treated with NSAIDs in past. 05/29/2005 06/01/2016 Overview: actonel 2009 start from hx in EPIC, fosamax 2011 started Cleft lip, unspecified 01/24/200506/01 documented as of this encounter (statuses as of 06/20/2023) [facility] History of Past illness Narrative* Problem Noted Date Diagnosed Date Resolved Date Chest pain 01/19/2022 01/20/2022 COPD with exacerbation 01/17/202201/20 Hypertension 01/17/2022 07/06/2022 Hypokalemia 01/17/2022 01/18/2022 Acute pneumonia 01/15/2022 07/06/2022 Pancreatitis 08/04/2020 01/18/2022 Acute left ankle pain 12/18/20172022 Chronic pain syndrome 06/27/20152016 Encounter for long-term (cur rent) use of medications 11/15/2014 06/01/2016 Lumbago 09/02/2014 06/01/2016 Cataract of both eyes 10/26/20132016 Overview: [facility] 10/22/2013 - Combined forms of age-related cataract of both eyes Eating disorder 02/16/2013 06/01/2016 Cervical strain 01/22/2013 06/01/2016 Cervical disc disease 01/22/20132016 Xerosis cutis 09/07/2012 06/01/2016 Arthritis of left knee 02/15/201206/01 Leg ulcer, left 02/15/2012 06/01/2016 Closed fracture of lateral malleolus 11/23/2011 06/01/2016 Contusion of toe 11/23/2011 06/01/2016 Capsulitis 11/06/2011 06/01/2016 Pruritus of forearm 09/07/2011 06/01/19 17 Pruritus - disorder 09/07/2011 06/01/19 17 Eczematous dermatitis 09/07/20112016 Lichenoid dermatitis 09/07/2011 017 Excoriation 09/07/2011 06/01/2016 Nasal septal deviation 08/29/201106/01 Orbital mass 07/15/2011 06/01/2016 Obesity 05/09/2011 01/14/2014 Last Assessment & Plan: Pt disappointed in the amount of weight loss she has had over the past month while on the prescription Adipex 37.5mg daily. States she eats oatmeal in the morning every other day and at night has 1/3 of a bag of kettlecorn popcorn. States she does not eat anything else throughout the day. Ms Berg states since she was in her 20's she would control her wt loss by forcing herself to vomit after eating so she could eat more. Denies having an eating disorder and denies recent forced vomiting. Denies any current exercise routine and states she does not like to exercise. Her goal wt is 115. States she has a good appetite but limits her intake. She says she has a bad sweet tooth especially for chocolate. Cervical vertebral fracture 05/07/2011 06/01/2016 Muscle spasms of head or neck 08/26/2009 06/01/2016 Pain in joint, pelvic region and thigh 05/09/2009 06/01/2016 Other chronic cystitis 12/21/200806/01 Hypertonicity of bladder 12/21/2008 PLANTAR Fasciitis 08/14/2006 06/01/2016 Sprain of neck 04/17/2006 06/01/2016 Rheumatoid arthritis 03/18/2006 017 CHOLELITHIASIS SEE ALSO GALL BLADD WITHOUT CHOLECYSTITIS( Without obstruction) 01/11/200605/16 HEPATITIS C CARRIER--treated with IFN and ribavirin and is in remission (as of 05/21) 05/29/2005 06/01/2016 Conductive hearing loss of combined types 05/29/2005 06/01/2016 Migraine variant 05/29/2005 06/01/2016 CHRONIC BRONCHITIS NOS--related to smoking 05/29/2005 06/01/2016 OSTEOARTHROS NOS-OTHER SITE- -OA vs RA treated with NSAIDs in past. 05/29/2005 06/01/2016 Overview: actonel 2009 start from hx in EPIC, fosamax 2011 started Cleft lip, unspecified 01/24/200506/01 documented as of this encounter (statuses as of 06/24/2023) [facility]10-05-2022 History of Past illness Narrative* Problem Noted Date Diagnosed Date Resolved Date COPD with exacerbation 01/17/202201/20 Hypertension 01/17/2022 07/06/2022 Hypokalemia 01/17/2022 01/18/2022 Acute pneumonia 01/15/2022 07/06/2022 Pancreatitis 08/04/2020 01/18/2022 Acute left ankle pain 12/18/20172022 Chronic pain syndrome 06/27/20152016 Encounter for long-term (cur rent) use of medications 11/15/2014 06/01/2016 Lumbago 09/02/2014 06/01/2016 Cataract of both eyes 10/26/20132016 Overview: [facility] [place] 10/22/2013 - Combined forms of age-related cataract of both eyes Eating disorder 02/16/2013 06/01/2016 Cervical strain 01/22/2013 06/01/2016 Cervical disc disease 01/22/20132016 Xerosis cutis 09/07/2012 06/01/2016 Arthritis of left knee 02/15/201206/01 Leg ulcer, left 02/15/2012 06/01/2016 Closed fracture of lateral malleolus 11/23/2011 06/01/2016 Contusion of toe 11/23/2011 06/01/2016 Capsulitis 11/06/2011 06/01/2016 Pruritus of forearm 09/07/2011 06/01/19 17 Pruritus - disorder 09/07/2011 06/01/19 17 Eczematous dermatitis 09/07/20112016 Lichenoid dermatitis 09/07/2011 017 Excoriation 09/07/2011 06/01/2016 Nasal septal deviation 08/29/201106/01 Orbital mass 07/15/2011 06/01/2016 Obesity 05/09/2011 01/14/2014 Last Assessment & Plan: Pt disappointed in the amount of weight loss she has had over the past month while on the prescription Adipex 37.5mg daily. States she eats oatmeal in the morning every other day and at night has 1/3 of a bag of kettlecorn popcorn. States she does not eat anything else throughout the day. Ms Berg states since she was in her 20's she would control her wt loss by forcing herself to vomit after eating so she could eat more. Denies having an eating disorder and denies recent forced vomiting. Denies any current exercise routine and states she does not like to exercise. Her goal wt is 115. States she has a good appetite but limits her intake. She says she has a bad sweet tooth especially for chocolate. Cervical vertebral fracture 05/07/2011 06/01/2016 Muscle spasms of head or neck 08/26/2009 06/01/2016 Pain in joint, pelvic region and thigh 05/09/2009 06/01/2016 Other chronic cystitis 12/21/200806/01 Hypertonicity of bladder 12/21/2008 PLANTAR Fasciitis 08/14/2006 06/01/2016 Sprain of neck 04/17/2006 06/01/2016 Rheumatoid arthritis 03/18/2006 017 CHOLELITHIASIS SEE ALSO GALL BLADD WITHOUT CHOLECYSTITIS( Without obstruction) 01/11/200605/16 HEPATITIS C CARRIER--treated with IFN and ribavirin and is in remission (as of 05/21) 05/29/2005 06/01/2016 Conductive hearing loss of combined types 05/29/2005 06/01/2016 Migraine variant 05/29/2005 06/01/2016 CHRONIC BRONCHITIS NOS--related to smoking 05/29/2005 06/01/2016 OSTEOARTHROS NOS-OTHER SITE- -OA vs RA treated with NSAIDs in past. 05/29/2005 06/01/2016 Overview: actonel 2009 start from hx in EPIC, fosamax 2011 started Cleft lip, unspecified 01/24/200506/01 documented as of this encounter (statuses as of 07/08/2023) [facility]10-05-20[facility] History of Past illness Narrative* Problem Noted Date Diagnosed Date Resolved Date COPD with exacerbation 01/17/202201/20 Hypertension 01/17/2022 07/06/2022 Hypokalemia 01/17/2022 01/18/2022 Acute pneumonia 01/15/2022 07/06/2022 Pancreatitis 08/04/2020 01/18/2022 Acute left ankle pain 12/18/20172022 Chronic pain syndrome 06/27/20152016 Encounter for long-term (cur rent) use of medications 11/15/2014 06/01/2016 Lumbago 09/02/2014 06/01/2016 Cataract of both eyes 10/26/20132016 Overview: [facility] [place] 10/22/2013 - Combined forms of age-related cataract of both eyes Eating disorder 02/16/2013 06/01/2016 Cervical strain 01/22/2013 06/01/2016 Cervical disc disease 01/22/20132016 Xerosis cutis 09/07/2012 06/01/2016 Arthritis of left knee 02/15/201206/01 Leg ulcer, left 02/15/2012 06/01/2016 Closed fracture of lateral malleolus 11/23/2011 06/01/2016 Contusion of toe 11/23/2011 06/01/2016 Capsulitis 11/06/2011 06/01/2016 Pruritus of forearm 09/07/2011 06/01/19 17 Pruritus - disorder 09/07/2011 06/01/19 17 Eczematous dermatitis 09/07/20112016 Lichenoid dermatitis 09/07/2011 017 Excoriation 09/07/2011 06/01/2016 Nasal septal deviation 08/29/201106/01 Orbital mass 07/15/2011 06/01/2016 Obesity 05/09/2011 01/14/2014 Last Assessment & Plan: Pt disappointed in the amount of weight loss she has had over the past month while on the prescription Adipex 37.5mg daily. States she eats oatmeal in the morning every other day and at night has 1/3 of a bag of kettlecorn popcorn. States she does not eat anything else throughout the day. Ms Berg states since she was in her 20's she would control her wt loss by forcing herself to vomit after eating so she could eat more. Denies having an eating disorder and denies recent forced vomiting. Denies any current exercise routine and states she does not like to exercise. Her goal wt is 115. States she has a good appetite but limits her intake. She says she has a bad sweet tooth especially for chocolate. Cervical vertebral fracture 05/07/2011 06/01/2016 Muscle spasms of head or neck 08/26/2009 06/01/2016 Pain in joint, pelvic region and thigh 05/09/2009 06/01/2016 Other chronic cystitis 12/21/200806/01 Hypertonicity of bladder 12/21/2008 PLANTAR Fasciitis 08/14/2006 06/01/2016 Sprain of neck 04/17/2006 06/01/2016 Rheumatoid arthritis 03/18/2006 017 CHOLELITHIASIS SEE ALSO GALL BLADD WITHOUT CHOLECYSTITIS( Without obstruction) 01/11/200605/16 HEPATITIS C CARRIER--treated with IFN and ribavirin and is in remission (as of 05/21) 05/29/2005 06/01/2016 Conductive hearing loss of combined types 05/29/2005 06/01/2016 Migraine variant 05/29/2005 06/01/2016 CHRONIC BRONCHITIS NOS--related to smoking 05/29/2005 06/01/2016 OSTEOARTHROS NOS-OTHER SITE- -OA vs RA treated with NSAIDs in past. 05/29/2005 06/01/2016 Overview: actonel 2010 start from hx in EPIC, fosamax 2012 started Cleft lip, unspecified 01/24/200506/01 documented as of this encounter (statuses as of 07/19/2023) [facility]10-05-2022 Miscellaneous Notes* Telephone Encounter - Nasrin Lopez - 01/17/2022 12:22 PM EDT Welcome Home Call: A. Date and Time: 12:22 PM 01/17/2022 B. Contact name/relationship: Patient's daughter, Jaye Bailey. Are you interested in initiating services with [facility]? Yes - [facility] would need to fully pay. D. Have you been active with any Home Care company in the last 60 days? Not sure. E. Caregiver: No as long as she continues improving, she will be able to manage independently. At this time no. F. Do you have any upcoming appointments in the next few days, or restrictions to your schedule? Unsure Was patient given Flu shot this Season (After Dec,): No: Unsure Please keep out your medications, both over the counter and prescription, your hospital discharge instructions and write down any questions you might have. Ok In order to maintain a safe environment for our caregivers, [facility] requires anyanimals or weapons present in the home be located in a secured location. Ok Our clinicians will call you the night before or the morning of the appointment. Their # may come up restricted but they'll leave a VM for you. Ok In case you have any questions or concerns in the meantime, our # is [phone], option 1 (need to confirm). Ok Unsure of discharge. Nasrin Lopez, Gis Geographer documented in this [facility] Miscellaneous Notes* Telephone Encounter - Gabby Buitrago RN - 01/16/2022 3:08 PM EDT Patient re-admitted to [facility] for pneumonia and will need hospital follow up scheduled afterdischarge. Gabby Buitrago RN * Telephone Encounter - Lizbeth Pool MD - 01/15/2022 8:01 AM EDT Reviewed and agree with follow up in our office. Recommend she change dressing as directed on discharge. Failure to do so could result in infection. * Telephone Encounter - Gabby Buitrago RN - 01/12/2022 4:59 PM EDT Filiberto with [facility] calls to let provider know that patient isn't performing any wound care to drain site from abscess. Filiberto reports that patient told her she hadn't changed the dressing since returning home as she is afraid to touch the area. Filiberto recommending patient be seen in PCP office earlynext week. Notified Filiberto that patient is declining follow up at this time and that provider was agreeable to home care orders. Filiberto to reach out to patient beginning of next week to encourage PCP follow up. Gabby Buitrago RN documented in this [facility] History of Present illness Narrative* Shira Pelaez RN - 01/15/2022 8:42 AM EDT TRANSITION CARE MANAGEMENT (TCM) FOLLOW-UP NOTE Provider Action/FYI Chart reviewed. Pt readmitted to [facility] 01/14/22 for pneumonia. Name removed from Care Team d/t readmission. Follow-up pending discharge disposition. Medical Communication Specialist plan for next outreach: No further follow up needed at this time Signature Shira Pelaez RN January 15, 2022 documented in this encounterSelect [facility] Miscellaneous Notes* Telephone Encounter - Lizbeth Pool MD - 01/15/2022 7:59 AM EDT Reviewed. * Telephone Encounter - Bernarda Terry LPN - 01/12/2022 4:48 PM EDT Patient telephoned. Declining a follow up at this time. States she is already seeing 2 other doctors and she just doesn't feel well enough to push herself to see another. Bernarda Terry LPN * Telephone Encounter - Lizbeth Pool MD - 01/11/2022 12:55 PM EDT Reviewed, agree with hospital follow up in 5-10 days. * Telephone Encounter - Linda Hartman RN - 01/11/2022 11:02 AM EDT Transferred providers message to Tammie Lord LPN. Called Pt to make Hospital follow up appointment. Pt reports she will call back in to schedule appointment. * Telephone Encounter - Sheyla Palafox APRN.CNP - 01/09/2022 7:46 AM EDT Will sign home health orders. Patient will need hospital discharge follow-up. Thanks, Sheyla Palafox APRN.CNP * Telephone Encounter - Tianna Lord LPN - 01/08/2022 5:58 PM EDT Lizbeth Polo MD Please advise if you are agreeable to signing and following for [facility] services? Our Clinicians will be sending the Plan of Care to you for review and approval. They will reach out for any appropriate orders required to provide home care services for the patient. We are not able to initiate C services without a following provider. Home care clinicians may also obtain orders from [facility] Virtualist Providers Thank you and we would be happy to answer any questions. Tianna Lord LPN 01/08/2022 5:58 PM documented in this encounterSelect [facility] Miscellaneous Notes* Telephone Encounter - Deloris Juarez APRN.EDMUND - 12/28/2021 10:52 AM EDT Called pt, this med cannot be given at home, it must be given in the Health care providers office. Deloris Juarez APRN.CNP * Telephone Encounter - Sen Allison - 12/25/2021 11:47 AM EDT David Berg is calling Deloris Juarez APRN.CNP today to request Prolia script be sent to her pharmacy as she states that Deloris told her she can do her Prolia injections at home like she does the Orencia. Patient does not want to come to a clinic to have this done as there is too much Covid out there Patient has been identified by name and birthdate. Duration of symptoms: N/A Person calling: self Call patient at: on cell [phone] (home) [phone] (cell) Was an appointment scheduled: No Closing statement: Results or non-symptom based questions: Thank you for calling [facility], your call will be returned within the next business day. Sen Allison documented in this encounterSelect [facility] [place] Miscellaneous Notes* Telephone Encounter - Deloris Juarez APRN.CNP - 12/28/2021 10:48 AM EDT Called pt, she can come to my office in [place] for a nurse visit I have placed the order for Prolia. Deloris Juarez APRN.EDMUND * Telephone Encounter - Sheyla Palafox APRN.CNP - 12/22/2021 7:40 PM EDT Looks like this needs to be sent to Rheumatology as they were going to order prolia. Sheyla Palafox APRN.CNP * Telephone Encounter - Smith Hollins RN - 12/22/2021 11:56 AM EDT Patient returned call on her son's phone. Reports her new phone will arrive in the mail in the nextfew days, until then, there is no other phone you can call her on. Reports she is able to give herself the prolia injections if they are SQ. Reports she has been giving herself Orencia injections every week for years, and is totally comfortable doing it. Please send Rx for prolia to [facility]. * Telephone Encounter - Nieves Baker Ma - 12/20/2021 12:51 PM EDT [employer] message sent to pt (active on 12/17) notifying her we've attempted to reach her by phone on multiple occasions with no call back. Asked pt to call back and speak with Triage Nurse to get Nurse visit scheduled for Prolia. Please review messages below if pt calls back. Nieves Baker Ma * Telephone Encounter - Julia Arredondo LPN - 12/15/2021 3:13 PM EDT Left another message for patient to return call to receive provider's message. * Telephone Encounter - Julia Arredondo LPN - 12/14/2021 10:48 AM EDT Letter sent to patient to call office to receive message regarding Prolia. * Telephone Encounter - Julia Arredondo LPN - 12/08/2021 11:44 AM EDT Phoned patient and VM left for her to return call to get provider's message and schedule NV. Pleasebe sure to notify CA nurse so she can order Prolia, Unless patient wants order sent to pharmacy andshe can picker/puller and bring in. * Telephone Encounter - Julia Arredondo LPN - 12/07/2021 8:23 AM EDT Attempted phoning patient, line busy. * Telephone Encounter - Lizbeth Pool MD - 12/06/2021 4:19 PM EDT Thank you. Please notify patient and assist with scheduling. * Telephone Encounter - Linda Hartman RN - 12/06/2021 3:25 PM EDT CA Nurse is able to give, but they need to be scheduled a few weeks out so that she can make sure Ihave medication here for them if we are providing it. If the Pt is picking the medication up from their own pharmacy and bringing it in does not have to be a few weeks out. * Telephone Encounter - Lizbeth Pool MD - 12/06/2021 2:39 PM EDT See message below. Would we be able to administer this here as a NV? * Telephone Encounter - Lizbeth Pool MD - 12/06/2021 2:39 PM EDT ----- Message from Deloris Juarez APRN.ALMOND ROASTER sent at 11/29/2021 3:05 PM EDT ----- Regarding: Morgan Hi there, I am seeing David today, I am recommending Morgan for her bones given her fractures. Are you able to give that so she does not have to come to [place]? Deloris Juarez APRN.ALMOND ROASTER documented in this encounterSelect Medical [facility] [place] Miscellaneous Notes* Telephone Encounter - Aziza Coxdiogo Linder - 12/28/2021 7:11 AM EDT Most recent Rheumatology visit: 11/29/2021 (with Deloris Juarez) Recent Office Visits - This Specialty Visits with Pr 12/05/2016 Rheumatoid arthritis involving multiple sites with positive rheumatoid factor (HCC) Other Visits 11/29/2021 Inflammatory arthritis Rheumatology Deloris Juarez APRN.EDMUND 01/12/2019 Rheumatoid arthritis involving multiple sites with positive rheumatoid factor (HCC) Rheumatology Deloris Juarez APRN.EDMUND 07/03/2018 Rheumatoid arthritis involving multiple sites with positive rheumatoid factor (HCC) Rheumatology Mary Ellen (Edmund)(Hist) Pee Upcoming Rheumatology Appointments - Next 365 Days No appointments to display CBC: CBC Latest Ref Rng & Units 09/21/2021 11/30/2021 WBC 3.70 - 11.00 k/uL 7.50 10.30 HGB - - - HEMOGLOBIN 11.5 - 15.5 g/dL 13.7 13.5 HEMOGLOBIN, FRANCESCA 12.0 - 16.0 g/dL - - HEMATOCRIT 36.0 - 46.0 % 41.9 41.3 PLATELETS 150 - 400 k/uL 261 197 ABS NEUT (ANC) 1.45 - 7.50 k/uL 3.47 - ABS NEUT, FRANCESCA 2.0 - 8.1 k/uL - - LYMPH ABS 1.2 - 4 K/uL - - ABS LYM 1.0 - 4.0 k/uL - - ABS LYMP, FRANCESCA 1.0 - 5.5 k/uL - - ABS LYMPH 1.00 - 4.00 k/uL 3.38 - Vitamin D: Vitamin D Latest Ref Rng & Units 12/03/2019 11/30/2021 VITAMIN D 25 HYDROXY 31.0 - 80.0 ng/mL 22.9(L) 17.5(L) LFT: CMP Latest Ref Rng & Units 09/21/2021 11/30/2021 SODIUM 136 - 144 mmol/L 138 140 SODIUM, FRANCESCA 132 - 148 mmol/L - - SODIUM, FRANCESCA 132 - 148 mmol/L - - POTASSIUM 3.7 - 5.1 mmol/L 4.4 4.4 POTASSIUM, FRANCESCA 3.5 - 5.0 mmol/L - - CHLORIDE 97 - 105 mmol/L 101 104 CHLORIDE, FRANCESCA 98 - 110 mmol/L - - CO2 22 - 30 mmol/L 25 19(L) CO2, FRANCESCA 23.0 - 32.0 mmol/L - - GLUCOSE 74 - 99 mg/dL 100(H) 103(H) GLUCOSE (U), FRANCESCA NEGAT mg/dL - - GLUCOSE, FRANCESCA 65 - 100 mg/dL - - BUN 7 - 21 mg/dL 14 16 BUN, FRANCESCA 10 - 25 mg/dL - - CREATININE 0.58 - 0.96 mg/dL 0.91 0.78 CREATININE, FRANCESCA 0.7 - 1.4 mg/dL - - CALCIUM, FRANCESCA 8.5 - 10.5 mg/dL - - CALCIUM, TOTAL 8.5 - 10.2 mg/dL 10.0 9.6 AST 13 - 35 U/L 35 27 AST, FRANCESCA 7 - 40 U/L - - ALT 7 - 38 U/L 27 18 ALT, FRANCESCA 0 - 45 U/L - - ALKALINE PHOSPHATASE 34 - 123 U/L 90 82 Creatinine: Creatinine Latest Ref Rng & Units 09/21/2021 11/30/2021 CREAT 0.58 - 0.96 mg/dL 0.91 0.78 ESR/CRP: ESR, WSR Latest Ref Rng & Units 12/03/2019 11/30/2021 WSR 0 - 20 mm/hr 2 9 CRP Latest Ref Rng & Units 08/06/2020 11/30/2021 CRP <0.9 mg/dL 3.1(H) 2.0(H) Uric Acid: None on file in the last 6 months Open Standing (Multiple Instance) Lab Orders None Open Future (Single Instance) Lab Orders Expected Expires Ordered VITAMIN D 25 HYDROXY [SQVITD] 12/01/21 01/31/22 12/01/21 Auth. provider: Deloris Juarez APRN.ALMOND ROASTER Assoc. diagnoses: Inflammatory arthritis documented in this encounterSelect Medical [facility]ty [facility] [place]22 History of Present illness Narrative* Deloris Juarez APRN.ALMOND ROASTER - 11/29/2021 2:50 PM EDT Images from the original note were not included. Rheumatology FOLLOW UP VISIT Referring Provider: Deloris Juarez Date of Service: 11/29/2021 Gender: female Ethnicity: White Age: [age] year old Chief Complaint: Follow Up (RA- aches ) Last Rheumatology visit: 11/29/2021 (with Deloris Juarez) David Berg is a 66 year old White female who presents on 11/29/2021 for in person visit for evaluation of Follow Up (RA- aches ). She is currently taking abatacept. David is RF positive - 49 (06/23/2012) and CCP negative - 17 (06/23/2012). Her most recent BOB was negative (08/23/1999). INTERVAL HISTORY She fell off a ladder 18 feet in July- L1, required kyphoplasty, torn ligament of ankle. then fractured her wrist several weeks later, again from a fall. Prior has used fosamax [id number] with ? compliance. DXA has shown Osteopenia. Takes calcium 600 mg per day, takes Mag. Patient has continued on Orencia injections with overall good control of her RA She needs to update her DXA given the fx (although from sig trauma) Osteopenia with L foot fracture. She was on fosamax. ? compliance. [id number], currently on drug holiday DXA stable osteopenia 09/2018. Patient-Entered Data RAPID 3 [place] Activities of Daily Living No Data Dress self? - Get in and out of bed? - Walk outdoors? - Wash and dry body? - Get in and out of car? - RAPID 3 Disease Activity Weighed Score Levels: 0 - 1: Near Remission 1.3 - 2.0: Low Severity 2.3 - 4.0: Moderate Severity 4.3 - 10.0: High Severity RAPID-3 Weighed Score 05/18/2016 12/11/2017 01/12/2019 RAPID 3 Weighed Score 7.6 5.9 5.4 PROMIS Assessments PROMIS Assessments 11/15/2016 12/11/2017 01/12/2019 Physical Health Percentile 6.55 % 3.92 % 3.92 % Mental Health Percentile 3.07 % 18.67 % 5.26 % Pain Score 7 7 6 Impression Diagnoses: (M19.90) Inflammatory arthritis (primary encounter diagnosis) (M81.0) Age-related osteoporosis without current pathological fracture Blood TB: Indeterminate (11/30/2021) Hepatitis B Antibody test: Positive (02/13/2016) At today's visit, the patient's disease appears to be stable Plan (M19.90) Inflammatory arthritis (primary encounter diagnosis) Comment: Stable, needs better follow up. Check labs today Continue current orencia Plan: BLOOD TB SCREEN, SED RATE WESTERGREN, C-REACTIVE PROTEIN (CRP), CBC, COMP METABOLIC PANEL, PTH INTACT BLD (M81.0) Age-related osteoporosis without current pathological fracture Comment: Discussed vert fx, from traumatic fall Repeat DXA May need to consider prolia Check bone labs Plan: DXA-AXIAL SKELETON, VITAMIN D 25 HYDROXY, PTH INTACT BLD Return in about 6 months (around 06/01/2022). I spent a total of 25 minutes on the date of the service which included preparing to see the patient, [id number] patient care, completing clinical documentation, obtaining and/or reviewing separately obtained history, performing a medically appropriate examination, and counseling and educating the patient/family/caregiver. Deloris Juarez APRN.ALMOND ROASTER cc: PCP: Lizbeth Pool [address] [place] [address] Subjective HISTORY OF PRESENT ILLNESS Rheumatology Follow up: Past Prior History: Hx of Hep C interferon/ribavarin/RA Past treatment: SSZ and Enbrel. Per patient Enbrel has helped tremendously but lost efficacy after about 2 1/2 years RF positive, CCP negative, Hep C viral load negative. No cryos, no abnormal proteins. Orencia resumed 11/2009 - stopped 05/2011- lung infections- emphysema. RTX 01/2012, 08/2012. 02/2013- not helpful Resume orencia 07/2013. stopped again 10/2014 (self), resumed orencia 2015- current Repeat quantiferon was negative and she had evaluation with ID - recommended treatment for LTBI- she took for 4 months only. states that was her completed course. Cleared by ID for Orenica. INTERVAL HISTORY She fell off a ladder 18 feet in July- , required kyphoplasty, torn ligament of ankle. then fractured her wrist several weeks later, again from a fall. Prior has used fosamax [id number] with ? compliance. DXA has shown Osteopenia. Takes calcium 600 mg per day, takes Mag. Patient has continued on Orencia injections with overall good control of her RA She needs to update her DXA given the fx (although from sig trauma) Osteopenia with L foot fracture. She was on fosamax. ? compliance. [id number], currently on drug holiday DXA stable osteopenia 09/2018. Disease History PAIN EVALUATION No data found in the last 1 encounters. Objective Treatment History Relevant Previous Investigations CBC Latest Ref Rng & Units 08/11/2020 02/10/2021 09/21/2021 11/30/2021 WBC 3.70 - 11.00 k/uL 9.51 5.74 7.50 10.30 HGB - - - - - HEMOGLOBIN 11.5 - 15.5 g/dL 11.3(L) 13.9 13.7 13.5 HEMOGLOBIN, FRANCESCA 12.0 - 16.0 g/dL - - - - HEMATOCRIT 36.0 - 46.0 % 34.7(L) 43.4 41.9 41.3 PLATELETS 150 - 400 k/uL 167 244 261 197 ABS NEUT (ANC) 1.45 - 7.50 k/uL - 2.93 3.47 - ABS NEUT, FRANCESCA 2.0 - 8.1 k/uL - - - - LYMPH ABS 1.2 - 4 K/uL - - - - ABS LYM 1.0 - 4.0 k/uL - - - - ABS LYMP, FRANCESCA 1.0 - 5.5 k/uL - - - - ABS LYMPH 1.00 - 4.00 k/uL - 2.28 3.38 - CMP Latest Ref Rng & Units 08/11/2020 02/10/2021 09/21/2021 11/30/2021 SODIUM 136 - 144 mmol/L 137 138 138 140 SODIUM, FRANCESCA 132 - 148 mmol/L - - - - SODIUM, FRANCESCA 132 - 148 mmol/L - - - - POTASSIUM 3.7 - 5.1 mmol/L 3.8 4.1 4.4 4.4 POTASSIUM, FRANCESCA 3.5 - 5.0 mmol/L - - - - CHLORIDE 97 - 105 mmol/L 105 106(H) 101 104 CHLORIDE, FRANCESCA 98 - 110 mmol/L - - - - CO2 22 - 30 mmol/L 24 22 25 19(L) CO2, FRANCESCA 23.0 - 32.0 mmol/L - - - - GLUCOSE 74 - 99 mg/dL 122(H) 89 100(H) 103(H) GLUCOSE (U), FRANCESCA NEGAT mg/dL - - - - GLUCOSE, FRANCESCA 65 - 100 mg/dL - - - - BUN 7 - 21 mg/dL 14 14 14 16 BUN, FRANCESCA 10 - 25 mg/dL - - - - CREATININE 0.58 - 0.96 mg/dL 0.89 0.79 0.91 0.78 CREATININE, FRANCESCA 0.7 - 1.4 mg/dL - - - - CALCIUM, FRANCESCA 8.5 - 10.5 mg/dL - - - - CALCIUM, TOTAL 8.5 - 10.2 mg/dL 8.8 9.1 10.0 9.6 AST 13 - 35 U/L - 49(H) 35 27 AST, FRANCESCA 7 - 40 U/L - - - - ALT 7 - 38 U/L - 35 27 18 ALT, FRANCESCA 0 - 45 U/L - - - - ALKALINE PHOSPHATASE 34 - 123 U/L - 72 90 82 Uric Acid Latest Ref Rng & Units 08/23/1999 URIC ACID 2.0 - 7.0 mg/dL 4.8 ESR, WSR Latest Ref Rng & Units 02/23/2019 05/12/2019 12/03/2019 11/30/2021 WSR 0 - 20 mm/hr 5 8 2 9 CRP Latest Ref Rng & Units 05/12/2019 12/03/2019 08/06/2020 11/30/2021 CRP <0.9 mg/dL 0.1 0.1 3.1(H) 2.0(H) C3, C4 Latest Ref Rng & Units 08/23/1999 02/24/2009 09/12/2011 C3 68 - 260 mg/dL - 87 - C4 12 - 46 mg/dL 12(A) 13 23 RF and CCP Latest Ref Rng & Units 08/23/1999 02/24/2009 06/23/2012 RHEUMATOID FACTOR <20 IU/mL 1240(A) 61(H) 49(H) CCP ANTIBODY, IGG <20 Units - <15 17 Hepatitis Screen Latest Ref Rng & Units 08/23/1999 02/24/2009 12/07/2011 02/13/2016 HEPBCOTOL Negative - Negative Negative Negative HEPSABQ Negative - Negative Negative Negative HEPCABEIA Negative Positive(A) Positive(A) Positive(A) Positive(A) HBSAGR Negative - Negative Negative Negative TB Screen 07/25/2017 04/10/2018 02/23/2019 11/30/2021 TBGINT Result is consistent with current or previous infection with Mycobacterium tuberculosis. No evidence of current or previous infection with Mycobacterium tuberculosis. Result is consistent with current or previous infection with Mycobacterium tuberculosis. This result is indeterminate for Mycobacterium tuberculosis complex antigen responsiveness. Specimens from immunocompromised patients, those <5 years of age, and those with a known recent exposuremay fall under this category. Please correlate with clinical picture and other alternative assessments. TBGRES Positive(A) Negative Positive(A) Indeterminate Antibodies Latest Ref Rng & Units 02/24/2009 03/19/2016 07/07/2016 08/04/2020 BOB BY EIA <1.5 OD Ratio - - - - DNA ANTIBODY W/CONFIRMATION <30 IU/mL - - - - CLINICAL ABSTRACTOR ANTIBODY <1.0 AI <0.2 - - - SSA ANTIBODY <1.0 AI <0.2 - - - SSB ANTIBODY <1.0 AI <0.2 - - - [place] 1 ANTIBODY <1.0 AI <0.2 - - - RIBOSOMAL CLINICAL ABSTRACTOR <1.0 AI <0.2 - - - SM ANTIBODY <1.0 AI <0.2 - - - SCLERODERMA AB, IGG <1.0 AI <0.2 - - - CENTROMERE AB <1.0 AI <0.2 - - - CHROMATIN ANTIBODY <1.0 AI 0.2 - - - PT SEC 9.7 - 13.0 sec - 10.6 11.1 10.9 PT INR 0.9 - 1.3 - 1.0 1.0 1.1 PTT 23.0 - 32.4 sec - 28.7 31.1 - CARDIOLIPIN AB, IGG 0 - 10 GPL - - - - CARDIOLIPIN AB, IGM 0 - 10 MPL - - - - CARDIOLIPIN AB, IGA 0 - 10 APL - - - - ANCA Latest Ref Rng & Units 09/12/2011 MYELOPEROXIDASE ANTIBODY (MPO) 0 - 20 Units Test not performed on samples negative by immunofluorescence. PROTEINASE-3 ANTIBODY 0 - 20 Units Test not performed on samples negative by immunofluorescence. P-ANCA FLUORESCENCE NEGAT Negative C-ANCA FLUORESCENCE NEGAT Negative PANCA 0 - 20 Units Test not performed on samples negative by immunofluorescence. CANCA 0 - 20 Units Test not performed on samples negative by immunofluorescence. Urinalysis Latest Ref Rng & Units 09/05/2012 10/22/2012 09/08/2014 09/21/2021 PROTEIN, URINE Negative mg/dL neg neg Negative - PROTEIN (U), FRANCESCA NEGAT mg/dL - - - - PROTEIN UA (POCT) Negative mg/dL - - - Negative RBC, URINE 0 - 3 /HPF - - 0-3 - RBC, URINE, FRANCESCA /hpf - - - - Imaging / Studies Last XR Hand/Finger - Impression Only XR HAND GENERAL 3V PA/LAT/OBL RIGHT Exam End: 10/04/2021 8:11 AM (Final result) Impression: IMPRESSION: No hand fracture or dislocation. Fringing Machine Operator: [email or web address] Transcribe Date/Time: Oct 04 2021 8:22A Dictated by : NELDA ABREU MD... Last MRI Hand - Impression Only No resulted procedures found. Last XR Chest - Impression Only XR CHEST 2V FRONTAL/LAT Exam End: 03/17/2021 4:33 PM (Final result) Impression: IMPRESSION: No acute pulmonary process. Mild COPD. Fringing Machine Operator: ALEXEI ... Last XR Cervical Spine - Impression Only XR CERVICAL SPINE 2-3V Collected: 02/21/2009 12:23 PM (Final result) Review of Systems Review of Systems CONSTITUTION: Negative for: Fever and Recent weight change HEENT: Negative for: Mouth sores and Dry mouth RESPIRATORY: Positive for: Cough GASTROINTESTINAL: Negative for: Diarrhea and Heartburn MUSCULOSKELETAL: Positive for: Arthralgias, Joint swelling and Morning Joint Stiffness Negative for: Myalgias and Muscle weakness NEUROLOGICAL: Negative for: Headaches and Numbness SKIN: Negative for: Rash and Skin changes EYES: Negative for: Eye pain, Eye redness and Eye dryness CARDIOVASCULAR: Negative for: Chest pain and Leg swelling GENITOURINARY: Negative for: Dysuria and Hematuria HEMATOLOGIC/LYMPHATIC: All other reviewed and negative other than HPI. 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) Insomnia Cervicalgia Left-Sided Low Back Pain With Left-Sided Sciatica Hnp (Herniated Nucleus Pulposus), Lumbar Rheumatoid Arthritis Involving Multiple Sites With Positive Rheumatoid Factor (Hcc) Dry Eye Syndrome Hyperlipidemia Acute Left Ankle Pain Pain in Toe of Left Foot Prediabetes Constipation, Unspecified Left Sided Colitis Without Complications (Hcc) Syncope Orthostatic Hypotension Steatorrhea, Pancreatic Pancreas Divisum Severe Protein-Calorie Malnutrition (Hcc) Pancreatitis Past Medical History PAST MEDICAL HISTORY Diagnosis Date Acute hepatitis C without mention of hepatic coma(070.51) negative RNA in 2016 Anxiety state 05/29/2005 Dr. Ryan Arthritis Bulimia 02/16/2013 Cervical vertebral fracture (HCC) 05/07/2011 Chronic obstructive pulmonary disease (COPD) (HCC) does not use inhalers. 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 Not on medications, not seeing neurology. 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 Choi-ID Prediabetes Psoriasis Rheumatoid arthritis involving multiple sites with positive rheumatoid factor (HCC) 12/13/[address] Bowden RLS (restless legs syndrome) 08/29/2011 Vasovagal syncope Vitamin D deficiency Past Surgical History PAST SURGICAL HISTORY Procedure Laterality Date CHOLECYSTECTOMY 798568 lap COCHLEAR IMPLANT HX COLONOSCOPY FLX DX W/COLLJ SPEC WHEN PFRMD 10/11/2009 Colonoscopy COLONOSCOPY FLX DX W/COLLJ SPEC WHEN PFRMD 09/30/2018 Colonoscopy EGD EUS N/A 04/06/2020 diffusely dilated PD, suspected pancreas divisum, mild duodenitis ESOPHAGOGASTRODUODENOSCOPY TRANSORAL DIAGNOSTIC 09/30/2018 EGD OPEN TREATMENT NASAL FRACTURE UNCOMPLICATED x2 no breathing problems PAST SURGICAL HISTORY OF X 2 PAST SURGICAL HISTORY OF FACIAL RECONSTRUCTION PAST SURGICAL HISTORY OF 1997 BILAT. SHOULDER SURGERY PAST SURGICAL HISTORY OF 1994 CERVICAL SPINE FUSION C4, C5 (had cervical fx x3 - even after repair) PAST SURGICAL HISTORY OF 1969 LEFT EAR CHOLESTEATOMA PAST SURGICAL HISTORY OF CLEFT LIP PAST SURGICAL HISTORY OF 02/2006 lasik PAST SURGICAL HISTORY OF 2004 bladder sling PAST SURGICAL HISTORY OF 08/09/2020 Upper endoscopy, percutaneous endoscopic gastrostomy (PEG) tube placed REMV CATARACT EXTRACAP,INSERT LENS Bilateral TRACHEOSTOMY EMERGENCY PROCEDURE TRANSTRACHEAL age 3 or 4 during surgery; lost airway Family History FAMILY HISTORY Problem Relation Age of Onset Stroke Mother Hypertension Mother Diabetes Father Cancer Father melanoma Kidney transplant Father Cancer Sister thyroid Breast Cancer Sister Breast Cancer Sister Cancer Brother 21 testicular Breast Cancer Maternal Aunt Cancer Other [id number] Social History Social History Tobacco Use Smoking status: Former Packs/day: 1.00 Years: 30.00 Pack years: 30.00 Types: Cigarettes, Pipe Quit date: 06/02/2017 Years since quittin.5 Smokeless tobacco: Never Vaping Use Vaping Use: Never used Substance Use Topics Alcohol use: No Drug use: No Comment: IV DRUG USER Medications Current Outpatient Medications Medication Sig ergocalciferol 50,000 unit capsule (VITAMIN D2, DRISDOL) Take 1 capsule by mouth one time a week. losartan (COZAAR) 25 mg tablet Take 1 tablet by mouth once daily. magnesium oxide (MAG-OX) 400 mg (241.3 mg magnesium) tablet Take 1 tablet by mouth once daily. calcium carbonate 600 mg-cholecalciferol 400 units (CALCIUM 600 + D) 600 mg-10 mcg (400 unit) tab Take 1 tablet by mouth once daily. psyllium Husk (DAILY FIBER) 0.52 gram capsule Take 1 capsule by mouth once daily. omega-3 fatty acids 1,000 mg cap Take 2 capsules by mouth once daily. abatacept (ORENCIA) 125 mg/mL INJECT THE CONTENTS OF 1 SYRINGE (125 MG) UNDER THE SKIN ONCE EACH WEEK, NO ADDITIONAL REFILLS UNTIL OFFICE VISIT 10/11/2021 phenazopyridine (PYRIDIUM) 100 mg tablet Take 2 tablets by mouth three times daily as needed. rizatriptan (MAXALT) 10 mg tablet Take 1 tablet by mouth at onset of headache. May repeat after 1hr stvsdy-gnaojagn-qfsmmou (CREON) 6,000-19,000 -30,000 unit delayed release capsule Take 2 capsules by mouth with meals and at bedtime. rOPINIRole (REQUIP) 1 mg tablet Take 1 tablet by mouth daily at bedtime. Food Supplement, Lactose-Free (ENSURE ORIGINAL) liqd Take 237 mL by mouth three times daily with meals. dicyclomine (BENTYL) 10 mg capsule Take 1 capsule by mouth four times daily as needed. For upper abdominal pain. atorvastatin (LIPITOR) 40 mg tablet Take 0.5 tablets by mouth daily at bedtime. For cholesterol. Nebulizers 1 Each once daily. albuterol (PROVENTIL) 2.5 mg /3 mL (0.083 %) nebulizer solution Use 3 mL via nebulizer every 4 hours as needed for wheezing/shortness of breath. Use over 5-15minutes. benzonatate (TESSALON PERLE) 100 mg capsule Take 1-2 capsules tid prn, no more than 6 in 24 hours. Blood Pressure Monitor (BLOOD PRESSURE KIT) 1 Each once daily as needed. Dx: recurrent syncope R55 sodium chloride 1 gram tab Take 1 tablet by mouth three times daily. ALPRAZolam (XANAX) 1 mg tablet Take 1 mg by mouth twice daily. QUEtiapine (SEROQUEL) 100 mg tablet Take 2 tablets by mouth daily at bedtime. No current facility-administered medications for this visit. Physical Exam BP 142/77 Pulse 77 Ht 5' 4 (1.63m) Wt 134 lb 7 oz (61.0kg) BMI 23.06 kg/(m^2). Physical Exam Vitals and nursing note reviewed. Constitutional: Appearance: Normal appearance. Eyes: Conjunctiva/sclera: Conjunctivae normal. Cardiovascular: Rate and Rhythm: Normal rate and regular rhythm. Heart sounds: Normal heart sounds. Pulmonary: Effort: Pulmonary effort is normal. Breath sounds: Wheezing present. Abdominal: General: There is no distension. Tenderness: There is no abdominal tenderness. Musculoskeletal: General: Tenderness present. No deformity. Normal range of motion. Cervical back: Normal range of motion and neck supple. Skin: General: Skin is warm and dry. Findings: Bruising present. Neurological: General: No focal deficit present. Mental Status: She is alert and oriented to person, place, and time. Gait: Gait is intact. Joint Exam 11/29/2021 Right Left Glenohumeral Tender Tender MCP 2 Tender Tender The following joints were examined and normal: Left Elbow, Right Elbow, Left Wrist, Right Wrist, Left MCP 1, Right MCP 1, Left MCP 3, Right MCP 3,Left MCP 4, Right MCP 4, Left MCP 5, Right MCP 5, Left IP, Right IP, Left PIP 2, Right PIP 2, Left PIP 3, Right PIP 3, Left PIP 4, Right PIP 4, Left PIP 5, Right PIP 5, Left Knee, Right Knee Joint Exam Data (across time) Joint Exam 11/29/2021 Total Tender 4 Total Swollen 0 CRP (mg/L) 20 Medical Decision Making: Problems: Low: Stable chronic illness Data: Unique test result(s) reviewed: 3+ Unique test(s) ordered: 3+ Risk: Moderate: Moderate risk from testing/treatment and Drug management Medical Decision Making Level: 4 - Moderate [facility] [place] Instructions* Patient Instructions* Petr Hunt MD - 11/20/2021 3:47 PM EDT Please start taking losartan 25 mg daily. Remember your goal blood pressure (top number) is less than 130. Please do not skip losartan if your top number is higher than that in the morning. [facility] [place] History of Present illness Narrative* Petr Hunt MD - 11/20/2021 3:41 PM EDT CARDIOLOGY CLINIC CONSULT NOTE REASON FOR CONSULT: Poorly controlled blood pressure REQUESTING PHYSICIAN: Dr. Pool HPI: Ms. Berg is a 66 year old female with history of essential hypertension, hyperlipidemia and GERD who is presenting to discuss poorly controlled hypertension. Patient was started on losartan 25 mg daily by her primary care physician and this was later doubled to 50 mg daily. Patient was toleratingthis dose well until she had an episode of symptomatic hypotension in September 2021. Since then she hasbeen skeptical about restarting any antihypertensives. Blood pressure in clinic today is 160/90. She took blood pressure in the morning and was aware that her systolic was in 160s even at that time. Patient checks her blood pressure in the morning and usually waits until 4 PM to take any blood pressure medication. She is not aware of any particular goals for high blood pressure. From a symptom standpoint she denies having any symptoms today but does report an episode of chest pain approximatelya week ago. This was experienced at night, pain was substernal, nonradiating, sharp and lasted less than a minute. She denies having any exertional pain or shortness of breath. PAST MEDICAL HISTORY Diagnosis Date Acute hepatitis C without mention of hepatic coma(070.51) negative RNA in 2016 Anxiety state 05/29/2005 Dr. Ryan Arthritis Bulimia 02/16/2013 Cervical vertebral fracture (HCC) 05/07/2011 Chronic obstructive pulmonary disease (COPD) (HCC) does not use inhalers. 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 Not on medications, not seeing neurology. 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 Choi-ID Prediabetes Psoriasis Rheumatoid arthritis involving multiple sites with positive rheumatoid factor ([facility]) 12/13/[address] Bowden RLS (restless legs syndrome) 08/29/2011 Vasovagal syncope Vitamin D deficiency PAST SURGICAL HISTORY Procedure Laterality Date CHOLECYSTECTOMY [id number] lap COCHLEAR IMPLANT HX COLONOSCOPY FLX DX W/COLLJ SPEC WHEN PFRMD 10/11/2009 Colonoscopy COLONOSCOPY FLX DX W/COLLJ SPEC WHEN PFRMD 09/30/2018 Colonoscopy EGD EUS N/A 04/06/2020 diffusely dilated PD, suspected pancreas divisum, mild duodenitis ESOPHAGOGASTRODUODENOSCOPY TRANSORAL DIAGNOSTIC 09/30/2018 EGD OPEN TREATMENT NASAL FRACTURE UNCOMPLICATED x2 no breathing problems PAST SURGICAL HISTORY OF X 2 PAST SURGICAL HISTORY OF FACIAL RECONSTRUCTION PAST SURGICAL HISTORY OF 1997 BILAT. SHOULDER SURGERY PAST SURGICAL HISTORY OF 1994 CERVICAL SPINE FUSION C4, C5 (had cervical fx x3 - even after repair) PAST SURGICAL HISTORY OF 1969 LEFT EAR CHOLESTEATOMA PAST SURGICAL HISTORY OF CLEFT LIP PAST SURGICAL HISTORY OF 02/2006 lasik PAST SURGICAL HISTORY OF 2004 bladder sling PAST SURGICAL HISTORY OF 08/09/2020 Upper endoscopy, percutaneous endoscopic gastrostomy (PEG) tube placed REMV CATARACT EXTRACAP,INSERT LENS Bilateral TRACHEOSTOMY EMERGENCY PROCEDURE TRANSTRACHEAL age 3 or 4 during surgery; lost airway SOCIAL HISTORY Social History Tobacco Use Smoking status: Former Packs/day: 1.00 Years: 30.00 Pack years: 30.00 Types: Cigarettes, Pipe Quit date: 06/02/2017 Years since quittin.4 Smokeless tobacco: Never Vaping Use Vaping Use: Never used Substance Use Topics Alcohol use: No Drug use: No Comment: IV DRUG USER FAMILY HISTORY Problem Relation Age of Onset Stroke Mother Hypertension Mother Diabetes Father Cancer Father melanoma Kidney transplant Father Cancer Sister thyroid Breast Cancer Sister Breast Cancer Sister Cancer Brother 21 testicular Breast Cancer Maternal Aunt Cancer Other [id number] Family history was reviewed. ALLERGIES Allergen Reactions Acetaminophen Hives Bupropion Hcl Unknown Codeine Rash, Itching Darvon [Propoxyphen* Itching Daypro [Oxaprozin] Rash Effexor [Venlafaxin* Intolerance decreased libido Flexeril [Cyclobenz* GI Upset, Vomiting Gabapentin Mental Status Change hangover Stebbins [Hydrocodone-* GI Upset, Itching nausea, itching Oxybutynin Other: See Comments Urinary retention Pentazocine Itching [place] Trees [Trees] rash Tramadol Intolerance MEDICATIONS: losartan (COZAAR) 50 mg tablet Take 0.5 tablets by mouth once daily. magnesium oxide (MAG-OX) 400 mg (241.3 mg magnesium) tablet Take 1 tablet by mouth once daily. calcium carbonate 600 mg-cholecalciferol 400 units (CALCIUM 600 + D) 600 mg-10 mcg (400 unit) tab Take 1 tablet by mouth once daily. psyllium Husk (DAILY FIBER) 0.52 gram capsule Take 1 capsule by mouth once daily. omega-3 fatty acids 1,000 mg cap Take 2 capsules by mouth once daily. abatacept (ORENCIA) 125 mg/mL INJECT THE CONTENTS OF 1 SYRINGE (125 MG) UNDER THE SKIN ONCE EACH WEEK, NO ADDITIONAL REFILLS UNTIL OFFICE VISIT 10/11/2021 phenazopyridine (PYRIDIUM) 100 mg tablet Take 2 tablets by mouth three times daily as needed. rizatriptan (MAXALT) 10 mg tablet Take 1 tablet by mouth at onset of headache. May repeat after 1hr mbheov-faqmecbl-svkkzkz (CREON) 6,000-19,000 -30,000 unit delayed release capsule Take 2 capsules by mouth with meals and at bedtime. rOPINIRole (REQUIP) 1 mg tablet Take 1 tablet by mouth daily at bedtime. Food Supplement, Lactose-Free (ENSURE ORIGINAL) liqd Take 237 mL by mouth three times daily with meals. dicyclomine (BENTYL) 10 mg capsule Take 1 capsule by mouth four times daily as needed. For upper abdominal pain. atorvastatin (LIPITOR) 40 mg tablet Take 0.5 tablets by mouth daily at bedtime. For cholesterol. Nebulizers 1 Each once daily. albuterol (PROVENTIL) 2.5 mg /3 mL (0.083 %) nebulizer solution Use 3 mL via nebulizer every 4 hours as needed for wheezing/shortness of breath. Use over 5-15minutes. benzonatate (TESSALON PERLE) 100 mg capsule Take 1-2 capsules tid prn, no more than 6 in 24 hours. Blood Pressure Monitor (BLOOD PRESSURE KIT) 1 Each once daily as needed. Dx: recurrent syncope R55 bacitracin zinc 500 unit/gram ointment nicotine (NICOTROL) 10 mg inhaler Inhale 2 Puffs as instructed as needed. apremilast (OTEZLA ORAL) Take 30 mg by mouth once daily. Aug Betamethasone Dipropionate (DIPROLENE) 0.05 % ointment apply to HANDS AT BEDTIME AND WEAR PLASTIC GLOVES OVERNIGHT tretinoin (RETIN-A) 0.025 % gel Apply 1 application to affected area daily at bedtime. DX: Psoriasis L40.9/ 696.1 ALPRAZolam (XANAX) 1 mg tablet Take 1 mg by mouth twice daily. QUEtiapine (SEROQUEL) 100 mg tablet Take 2 tablets by mouth daily at bedtime. omeprazole (PRILOSEC) 40 mg capsule Take 1 capsule by mouth twice daily. topiramate (TOPAMAX) 25 mg tablet Take 1 tablet by mouth daily at bedtime. (Patient not taking: Reported on 11/20/2021) sodium chloride 1 gram tab Take 1 tablet by mouth three times daily. [DISCONTINUED] tofacitinib tablet 5 mg (XELJANZ) Take 1 tablet (5 mg) by mouth twice daily. REVIEW OF SYSTEMS: GENERAL: Negative for:Weight loss and Weight gain HEENT: Negative for:Nosebleeds RESPIRATORY: Negative for:Shortness of breath GASTROINTESTINAL: Negative for:Blood in stool MUSCULOSKELETAL: Negtive for: Muscle or joint pain, stiffness, Joint swelling SKIN: No rash HEMATOLOGICAL/LYMPHATIC: Negative for: Easy bruising and Easy bleeding CARDIOVASCULAR: As stated in HPI. 10 system review negative except as stated in HPI PHYSICAL EXAMINATION: BP 160/90 Pulse 83 Wt 61.7 kg (136 lb) BMI 23.71 kg/m General: Well appearing, appears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 speech, chest pain, SOB. Reviewed triage protocol guidelines and advised ER evaluation per protocol. She refuses ER. States she wants to hear from DOC. Wants to take additional dose of Losartan. Marlene Rodarte RN GO TO THE EMERGENCY ROOM OR CALL 911 IF: * You develop any new symptoms * Your condition worsens * You are concerned or anxious about your condition for any other reason. If you have any questions, you can call Nurse monitor worker back. Reason for Disposition [1] Systolic BP >= 160 OR Diastolic >= 100 AND [2] cardiac or neurologic symptoms (e.g., chest pain, difficulty breathing, unsteady gait, blurred vision) Answer Assessment - Initial Assessment Questions 1. BLOOD PRESSURE: 187/112 P-99 179/105 P-108 2. ONSET: Within the last half hour/ 10 minutes apart 3. HOW: Automatic home BP monitor 4. HISTORY: Yes 5. MEDICATIONS: Losartan 25 mg. Took extra dose as instructed this afternoon 6. OTHER SYMPTOMS: feels tired and has blurred vision in right eye 7. :N/A Protocols used: BLOOD PRESSURE - [id number] documented in this encounterSelect Medical Specialty [facility] [place]07-06-2022 Miscellaneous Notes* Telephone Encounter - Emi Beck Ma - 10/18/2021 9:19 AM EDT Patient was notified and will see if rheumatology was giving if not will get otc Emi Beck Ma * Telephone Encounter - Sheyla Palafox APRN.CNP - 10/18/2021 9:05 AM EDT I don't see where we have ever ordered B12 for her. I have ordered the ones on her medication list. Sheyla Palafox APRN.CNP * Telephone Encounter - Linda Hartman RN - 10/17/2021 4:12 PM EDT Pt reports she was given Vit D and Vit B12, but could not find a Vit D level on her list would needthat to know what provider wants to order. Added generic B12 on. I let Pt know that they may not becovered. She reports that they have always been covered before. Patient has been identified by name and date of : Yes Patient phones for refill(s): Pending Prescriptions Disp Refills POTASSIUM CHLORIDE ER 8 MEQ CAPSULE,EXTENDED RELEASE 90 capsule 1 Sig: take 1 capsule by mouth once daily with BREAKFAST ADAIR: No MAGNESIUM OXIDE 400 MG (241.3 MG MAGNESIUM) TABLET 30 tablet 1 Sig: Take 1 tablet by mouth once daily. ADAIR: No CALCIUM CARBONATE 600 MG-VITAMIN D3 10 MCG (400 UNIT) TABLET 30 tablet 12 Sig: Take 1 tablet by mouth once daily. ADAIR: No PSYLLIUM HUSK 0.52 GRAM CAPSULE 30 capsule 11 Sig: Take 1 capsule by mouth once daily. ADAIR: No OMEGA-3 FATTY ACIDS 1,000 MG CAPSULE 60 capsule 12 Sig: Take 2 capsules by mouth once daily. ADAIR: No Date of last office visit in primary care: 09/22/21 Future visit: none Last 2 Encounter Wt Readings: Date: Wt: 10/04/2021 60.3 kg (133 lb) 09/22/2021 58.5 kg (129 lb) Previous labs/tests for medication: Blood Pressure: BUN (mg/dL) Date Value 09/21/2021 14 02/10/2021 14 Sodium (mmol/L) Date Value 09/21/2021 138 02/10/2021 138 Last 1 Encounter BP Readings: Date: BP: 10/09/2021 167/84[BP Андрей average[ Potassium: No components found for: POT Please advise. Thank you. Linda Hartman RN * Telephone Encounter - Sheyla Palafox APRN.CNP - 10/17/2021 1:36 PM EDT I need specifics of vitamin and supplements. Most insurances will not cover medications you can getover the counter. Agree she needs to call Dr. Guzman's office about the brace. Thanks, Sheyla Palafox APRN.CNP * Telephone Encounter - Bernarda Terry LPN - 10/17/2021 10:47 AM EDT Patient telephoned. Made aware of message below and voices understanding. Appointment made for BP check for this . Patient requesting a back xray be taken so she can get the back brace off. Looks like patient was seen for this by Dr. Guzman. Provided patient with Dr. Shah phone number and states she will call their office. Requesting refills for vitamins/supplements be sent in so she can restart them. Please advise. Bernarda Terry LPN * Telephone Encounter - Sheyla Palafox APRN.CNP - 10/13/2021 7:58 AM EDT Yes she needs to continue the medication and follow-up for BP check. If she has not scheduled this I advise her to schedule as the BP readings she gave us are still higher than we would like. Sheyla Palafox APRN.CNP * Telephone Encounter - Smith Hollins RN - 10/12/2021 5:05 PM EDT Patient reports her BP readings today: 144/83 (80), and 136/69 (90), asking if she should continue to take her BP medication losartan 25 mg daily. Asymptomatic. Advised she should take her BP medication and make sure she is staying hydrated. Advised to watch for symptoms, headache, lightheadedness, dizziness, nausea, and if develops these to call back. Also read providers message written on 10-09,copied below: She needs to be consistent and take the medication daily and follow-up in one month for BP check. Have her bring her home BP cuff to validate at her next blood pressure appointment Sheyla Palafox APRN.CNP Patient agreeable and will call back with any questions or concerns. documented in this encounterSelect [facility] [place]22 Miscellaneous Notes* Telephone Encounter - Kami Ellis - 10/10/2021 11:36 AM EDT Called pt, advised her of below. She will see a provider. Pt says she cannot drive. RN advised pt may schedule a VV. Scheduled pt at her request. Kami Ellis RN * Telephone Encounter - Deloris Juarez APRN.EDMUND - 10/10/2021 8:49 AM EDT she has not been seen in nearly 2 years, I cannot refill at this time. will need follow up with me or another Rheum provider for refill Deloris Juarez APRN.ALMOND ROASTER * Telephone Encounter - Aziza Hernandez Ma - 10/09/2021 7:29 AM EDT Most recent Rheumatology visit: 01/12/2019 (with Deloris Juarez) Upcoming Rheumatology Appointments - Next 365 Days No appointments to display CBC: CBC Latest Ref Rng & Units 02/10/2021 09/21/2021 WBC 3.70 - 11.00 k/uL 5.74 7.50 HGB - - - HEMOGLOBIN 11.5 - 15.5 g/dL 13.9 13.7 HEMOGLOBIN, FRANCESCA 12.0 - 16.0 g/dL - - HEMATOCRIT 36.0 - 46.0 % 43.4 41.9 PLATELETS 150 - 400 k/uL 244 261 ABS NEUT (ANC) 1.45 - 7.50 k/uL 2.93 3.47 ABS NEUT, FRANCESCA 2.0 - 8.1 k/uL - - LYMPH ABS 1.2 - 4 K/uL - - ABS LYM 1.0 - 4.0 k/uL - - ABS LYMP, FRANCESCA 1.0 - 5.5 k/uL - - ABS LYMPH 1.00 - 4.00 k/uL 2.28 3.38 Vitamin D: None on file in the last 6 months LFT: CMP Latest Ref Rng & Units 02/10/2021 09/21/2021 SODIUM 136 - 144 mmol/L 138 138 SODIUM, FRANCESCA 132 - 148 mmol/L - - SODIUM, FRANCESCA 132 - 148 mmol/L - - POTASSIUM 3.7 - 5.1 mmol/L 4.1 4.4 POTASSIUM, FRANCESCA 3.5 - 5.0 mmol/L - - CHLORIDE 97 - 105 mmol/L 106(H) 101 CHLORIDE, FRANCESCA 98 - 110 mmol/L - - CO2 22 - 30 mmol/L 22 25 CO2, FRANCESCA 23.0 - 32.0 mmol/L - - GLUCOSE 74 - 99 mg/dL 89 100(H) GLUCOSE (U), FRANCESCA NEGAT mg/dL - - GLUCOSE, FRANCESCA 65 - 100 mg/dL - - BUN 7 - 21 mg/dL 14 14 BUN, FRANCESCA 10 - 25 mg/dL - - CREATININE 0.58 - 0.96 mg/dL 0.79 0.91 CREATININE, FRANCESCA 0.7 - 1.4 mg/dL - - CALCIUM, FRANCESCA 8.5 - 10.5 mg/dL - - CALCIUM, TOTAL 8.5 - 10.2 mg/dL 9.1 10.0 AST 13 - 35 U/L 49(H) 35 AST, FRANCESCA 7 - 40 U/L - - ALT 7 - 38 U/L 35 27 ALT, FRANCESCA 0 - 45 U/L - - ALKALINE PHOSPHATASE 34 - 123 U/L 72 90 Creatinine: Creatinine Latest Ref Rng & Units 02/10/2021 09/21/2021 CREAT 0.58 - 0.96 mg/dL 0.79 0.91 ESR/CRP: None on file in the last 6 months Uric Acid: None on file in the last 6 months Open Standing (Multiple Instance) Lab Orders None Open Future (Single Instance) Lab Orders None documented in this encounterSelect [facility] [place]06-27-2022 Miscellaneous Notes* Telephone Encounter - Linda Hartman RN - 10/09/2021 4:46 PM EDT Pt called and is notified of providers results and instructions. Pt voices understanding. Pt will call back to schedule her BP check, reports she is on the phone with [employer] for her refrigerator right now. Linda Hartman RN * Telephone Encounter - Sheyla Palafox APRN.ALMOND ROASTER - 10/09/2021 3:28 PM EDT She needs to be consistent and take the medication daily and follow-up in one month for BP check. Have her bring her home BP cuff to validate at her next blood pressure appointment Sheyla Palafox APRN.CNP * Telephone Encounter - Elodia De La Garza JAELYN - 10/09/2021 3:01 PM EDT Manual Readin/82 Pulse: 80 BP Андрей average: 167/84 P: 83 Repeat BP Check: 172/81 P86 #1 164/81 P80 #2 165/84 P82 #3 165/85 P80 #4 164/89 P89 #5 169/83 P78 #6 Reason for blood pressure check - Last BP elevated and Medication adjustment Patient is: Taking medication as prescribed No Took medication today No If no, date medication last taken 10/08/21 Experiencing side effects No BP was elevated at last appt 09/22/21. Was started on Losartan 25mg daily. Reports that she has not been taking the medication everyday (thought that if she has readings under 150 she should hold medication). Discussed with pt what readings would low/normal or elevated. She verbalized understanding.Home readings have ranged 114-173/68-119. She did not take medication today. Denies any chest pain,unusual shortness of breath, or dizziness. Does note headaches aprox 2-3/wk; will use Maxalt to treat. Daily caffeine use; none today. Past personal history of tobacco use; no current exposure. Alertand oriented. Pt has been identified by name and birthdate: Yes Allergies reviewed: Yes Latex allergy: no. Medication - prescribed and OTC reviewed and updated: Yes Do you need any prescription refills prior to your next visit: No Health Maintenance: Reviewed and not up to date and provider notified Patient advised to take medication consistently (recommend that she picks a time of day- evening/morning) and then check readings daily to see where she is ranging. Pt is asking if there are any additional perimeters that she should watch for of when not to take medication. Advised that she would be contacted after review by Dr gillespieoperational meteorologist. Elodia De La Garza LPN documented in this encounterSelect [facility] [place]06-27-2022 History of Present illness Narrative* Elodia De La Garza LPN - 10/09/2021 2:58 PM EDT Manual Readin/82 Pulse: 80 BP Андрей average: 167/84 P: 83 Repeat BP Check: 172/81 P86 #1 164/81 P80 #2 165/84 P82 #3 165/85 P80 #4 164/89 P89 #5 169/83 P78 #6 Reason for blood pressure check - Last BP elevated and Medication adjustment Patient is: Taking medication as prescribed No Took medication today No If no, date medication last taken 10/08/21 Experiencing side effects No BP was elevated at last appt 09/22/21. Was started on Losartan 25mg daily. Reports that she has not been taking the medication everyday (thought that if she has readings under 150 she should hold medication). Discussed with pt what readings would low/normal or elevated. She verbalized understanding.Home readings have ranged 114-173/68-119. She did not take medication today. Denies any chest pain,unusual shortness of breath, or dizziness. Does note headaches aprox 2-3/wk; will use Maxalt to treat. Daily caffeine use; none today. Past personal history of tobacco use; no current exposure. Alertand oriented. Pt has been identified by name and birthdate: Yes Allergies reviewed: Yes Latex allergy: no. Medication - prescribed and OTC reviewed and updated: Yes Do you need any prescription refills prior to your next visit: No Health Maintenance: Reviewed and not up to date and provider notified Patient advised to take medication consistently (recommend that she picks a time of day- evening/morning) and then check readings daily to see where she is ranging. Pt is asking if there are any additional perimeters that she should watch for of when not to take medication. Advised that she would be contacted after review by operational meteorologist. Elodia De La Garza LPN documented in this encounterSelect [facility] [place]06-27-2022 History of Present illness Narrative* Eloisa Bolton Ma - 10/09/2021 2:42 PM EDT PT ASSESSMENT - CASTING ROOM David presents for Application of cast. Applied short cast: to Right wrist using 2 rolls of gortex and 1 roll of fiberglass. Patient tolerated well. Patient has been instructed in Care of cast. Eloisa Bolton Ma * Pema Willis PA-C - 10/09/2021 2:14 PM EDT Pema Willis PA-C Department of Orthopaedics Orthopaedics [facility] [id number] Dept: [phone] Dept October 09, [address] Sher Flores for an opinion regarding right wrist fracture. My final recommendations will be communicated back to the requesting physician by way of shared Medicalrecord or letter to requesting physician via [place] mail. CHIEF COMPLAINT: New and Fracture of the Right Wrist and Referred by Yaniv Flores (X-rays 10/04/21) Ms. David Berg is a 65 year old female she presents with right wrist pain [facility] Patient was having a bonfire, was climbing a ramp into her home when she accidentally tripped falling on an outstretched wrist. Pain today is a 7 out of 10 aching. Patient is right-hand dominant. She denies any previous right hand or wrist injuries. Unfortunately she is wearing a brace for a lumbar fracture that she sustained after falling off an extension ladder this past spring. She lives alone. She is right-hand dominant. ASSESSMENT: M25.531 Right wrist pain (primary encounter diagnosis) S52.551A Other closed extra-articular fracture of distal end of right radius, initial encounter PLAN: She has a nondisplaced right distal radius fracture. We will get her into a waterproof cast. I would like to see her back in 2 and half weeks for cast removal and repeat x-ray. Patient agrees to plan. Ms. David Berg was advised as to contrast therapies and/or to take analgesics/anti-inflammatories as needed and all contraindications were reviewed. OBJECTIVE: Ms. David Berg is a pleasant 65 year old in no apparent distress. Gen:There were no vitals taken for this visit. nl development, non obese, no deformities ENT: Normocephalic, normal hearing, moist mucosa CV: Pulses:Radial= 2+ and symmetric, capillary refill < 2 secs, no peripheral edema/varicosities Skin: no rash, bruising or lesions. Good turgor. Psych: cooperative and appropriate, alert and oriented x 3, good mood and affect. Musculoskeletal: Right wrist with tenderness palpation at the distal radius. Mild but appropriate edema of the wrist, overlying skin is intact. No ecchymosis. Range of motion of the wrist was not tested. Patient is able to form a loose composite fist and extend all digits. Sensation is intact in the radial 3 digits. Imaging: IMPRESSION: Fracture Fringing Machine Operator: [facility]ITAL[facility] Transcribe Date/Time: Oct 04 2021 8:19A Dictated by : NELDA ABREU MD This examination was interpreted and the report reviewed and electronically signed by: NELDA ABREU MD on Oct 04 2021 8:22AM EST Results-Findings * * *Final Report* * * DATE OF EXAM: Oct 04 2021 8:11AM WOX [id number] - XR WRIST 4V PA/LAT/OBL/SCAPH RT / PROCEDURE REASON: Right wrist pain * * * * Physician Interpretation * * * * HISTORY: Right wrist pain fell 5 days ago pain along radial side of right wrist with swelling and pain dorsal side of hand distal MC's TECHNIQUE: 4 views COMPARISON: None RESULT: Nondisplaced hairline fracture distal radial metaphysis Supporting Subjective Information Below: Past Surgical History: PAST SURGICAL HISTORY Procedure Laterality Date CHOLECYSTECTOMY [id number] lap COCHLEAR IMPLANT HX COLONOSCOPY FLX DX W/COLLJ SPEC WHEN PFRMD 10/11/2009 Colonoscopy COLONOSCOPY FLX DX W/COLLJ SPEC WHEN PFRMD 09/30/2018 Colonoscopy EGD EUS N/A 04/06/2020 diffusely dilated PD, suspected pancreas divisum, mild duodenitis ESOPHAGOGASTRODUODENOSCOPY TRANSORAL DIAGNOSTIC 09/30/2018 EGD OPEN TREATMENT NASAL FRACTURE UNCOMPLICATED x2 no breathing problems PAST SURGICAL HISTORY OF X 2 PAST SURGICAL HISTORY OF FACIAL RECONSTRUCTION PAST SURGICAL HISTORY OF 1997 BILAT. SHOULDER SURGERY PAST SURGICAL HISTORY OF 1994 CERVICAL SPINE FUSION C4, C5 (had cervical fx x3 - even after repair) PAST SURGICAL HISTORY OF 1969 LEFT EAR CHOLESTEATOMA PAST SURGICAL HISTORY OF CLEFT LIP PAST SURGICAL HISTORY OF 02/2006 lasik PAST SURGICAL HISTORY OF 2004 bladder sling PAST SURGICAL HISTORY OF 08/09/2020 Upper endoscopy, percutaneous endoscopic gastrostomy (PEG) tube placed REMV CATARACT EXTRACAP,INSERT LENS Bilateral TRACHEOSTOMY EMERGENCY PROCEDURE TRANSTRACHEAL age 3 or 4 during surgery; lost airway Medications: Current Outpatient Medications Medication Sig losartan (COZAAR) 25 mg tablet Take 1 tablet by mouth once daily. rizatriptan (MAXALT) 10 mg tablet Take 1 tablet by mouth at onset of headache. May repeat after 1hr owykds-mljabjyg-vedgxdx (CREON) 6,000-19,000 -30,000 unit delayed release capsule Take 2 capsules by mouth with meals and at bedtime. rOPINIRole (REQUIP) 1 mg tablet Take 1 tablet by mouth daily at bedtime. omega-3 fatty acids 1,000 mg cap Take 2 capsules by mouth once daily. psyllium Husk (DAILY FIBER) 0.52 gram capsule Take 1 capsule by mouth once daily. dicyclomine (BENTYL) 10 mg capsule Take 1 capsule by mouth four times daily as needed. For upper abdominal pain. calcium carbonate 600 mg-cholecalciferol 400 units (CALCIUM 600 + D) 600 mg-10 mcg (400 unit) tab Take 1 tablet by mouth once daily. magnesium oxide (MAG-OX) 400 mg (241.3 mg magnesium) tablet Take 1 tablet by mouth once daily. potassium chloride SR (MICRO-K) 8 mEq cpER take 1 capsule by mouth once daily with BREAKFAST atorvastatin (LIPITOR) 40 mg tablet Take 0.5 tablets by mouth daily at bedtime. For cholesterol. abatacept (ORENCIA) 125 mg/mL INJECT THE CONTENTS OF 1 SYRINGE (125 MG) UNDER THE SKIN ONCE EACH WEEK Nebulizers 1 Each once daily. albuterol (PROVENTIL) 2.5 mg /3 mL (0.083 %) nebulizer solution Use 3 mL via nebulizer every 4 hours as needed for wheezing/shortness of breath. Use over 5-15minutes. sodium chloride 1 gram tab Take 1 tablet by mouth three times daily. bacitracin zinc 500 unit/gram ointment nicotine (NICOTROL) 10 mg inhaler Inhale 2 Puffs as instructed as needed. apremilast (OTEZLA ORAL) Take 30 mg by mouth once daily. Aug Betamethasone Dipropionate (DIPROLENE) 0.05 % ointment apply to HANDS AT BEDTIME AND WEAR PLASTIC GLOVES OVERNIGHT tretinoin (RETIN-A) 0.025 % gel Apply 1 application to affected area daily at bedtime. DX: Psoriasis L40.9/ 696.1 ALPRAZolam (XANAX) 1 mg tablet Take 1 mg by mouth twice daily. QUEtiapine (SEROQUEL) 100 mg tablet Take 2 tablets by mouth daily at bedtime. phenazopyridine (PYRIDIUM) 100 mg tablet Take 2 tablets by mouth three times daily as needed. (Patient not taking: Reported on 10/04/2021 ) Food Supplement, Lactose-Free (ENSURE ORIGINAL) liqd Take 237 mL by mouth three times daily with meals. (Patient not taking: Reported on 09/21/2021 ) benzonatate (TESSALON PERLE) 100 mg capsule Take 1-2 capsules tid prn, no more than 6 in 24 hours. (Patient not taking: Reported on 10/04/2021 ) omeprazole (PRILOSEC) 40 mg capsule Take 1 capsule by mouth twice daily. Blood Pressure Monitor (BLOOD PRESSURE KIT) 1 Each once daily as needed. Dx: recurrent syncope R55 topiramate (TOPAMAX) 25 mg tablet Take 1 tablet by mouth daily at bedtime. (Patient not taking: Reported on 09/21/2021 ) No current facility-administered medications for this visit. Allergies: Acetaminophen, Bupropion Hcl, Codeine, Darvon [Propoxyphene], Daypro [Oxaprozin], Effexor [Venlafaxine Hcl], Flexeril [Cyclobenzaprine Hcl], Gabapentin, Stebbins [Hydrocodone-Acetaminophen], Oxybutynin, Pentazocine, [place] [Trees], and Tramadol ROS: General (negative for fatigue, malaise, weight loss/gain) HEENT (negative for headache, earache, recent vision changes, sinus pain, sore throat) Respiratory (no recent shortness of breath, hemoptysis) CV (negative for chest tightness, palpitations) Musculoskeletal (see HPI) Psych (no depression, anxiety) This note was partially generated using [employer] voice recognition system, and there may be some incorrect words, spellings, and punctuation that were not noted in checking the note before saving. Pema Willis PA-C * Leesa Valencia Ma - 10/09/2021 1:44 PM EDT Patient presents with: Right Wrist - New, Fracture Referred by Yaniv Flores: X-rays 10/04/21 AMB ROOMING INTAKE FLOWSHEET DATA Pain Pain Level: 7 Description: Aching Patient states on 09/30 she was walking back into her house at night and tripped over a landscape log trying to catch herself from falling. She had fallen off of a ladder on 07/20 and is currently wearing a back brace. Splint intact and removed for exam. Patient drove herself here and is having a difficult time bathing, dressing, eating and driving with the splint. Taking no med's for the pain due to unable to take Tylenol and Ibuprofen. Patient is right hand dominant. documented in this encounterSelect Medical [facility] [place]06-27-2022 Instructions* Patient Instructions* Eloisa Bolton Ma - 10/09/2021 2:33 PM EDT CAST CARE INSTRUCTIONS You have a fiberglass/plaster cast. Casts keep broken bones in place so they can heal. They are also used in other injuries to immobilize the injured area and allow for healing. For similar reasons they are used after some types of surgery. Fiberglass casts are taxicab coordinator in weight and more durable. Plaster casts can be made to more accurately conform to your arm or leg. It is possible to take x-rays through the cast to check fracture alignment and healing. Below are some things you should be aware of: 1) You should elevate your injured extremity above the level of your heart (i.e. use pillows to elevate your arm or leg, this will help minimize swelling). If your cast is too tight, fingers or toes may become swollen or numb and often your arm or leg will become more painful. You should continue elevation until swelling is no longer a problem, after days of experience this will be easier for youto determine. A safe rule of thumb is to continue to elevate your injured extremity as much as possible until your first follow-up appointment. 2) Protect your cast until it finishes hardening, this is about 3 days for a plaster cast or 2 hours for a fiberglass cast. This specifically means you SHOULD NOT walk on a walking cast until afterthis time period. 3) If your cast is waterproof, you can skip to #4. If your cast is plaster or not waterproof, keep your cast dry. The fiberglass cast is more water resistant than plaster but the padding inside the cast is not water resistant. Soaking wet cast padding will eventually cause damage to your skin. Use a water tight plastic bag to keep your cast dry while showering. We have bags specifically designed for this purpose if your desire one. Our experience has been that no bag is very effective in keeping the cast dry if you submerge it under water such as in a bathtub or a swimming pool. If your cast does accidentally get wet and you have a fiberglass cast, use a division chair on LOW temperature setting and high FAN setting until the cast completely dried out, including the padding inside it. This will probably take several DAYS. Please note that getting your cast wet will probably also cause it tohave an unpleasant odor. 4) Avoid high temperature and high humidity situations (sweat makes a cast uncomfortable and will cause it to smell). 5) Do not pull any cast padding from inside your cast. If you feel your cast needs trimming contactus so that we may have you come to the office for this purpose. 6) Never try to relieve an itch by inserting anything under the cast such as a coat mash filter cloth changer, wire, stick, etc. This commonly will cause small scratches in your skin which, because of the environment under the cast, may become infected. This infection may not be visible until it becomes quite severe because it is underneath the cast. Often a division chair on a cool setting blowing in the opening of the cast may help. If itching persists please call our office. 7) You may autograph or write on your cast once it is completely dried. Magic marker and pen works best, do not use paint or crayons. WARNING SIGNS -- this can mean something is wrong. 1) Increased pain. 2) Numbness or tingling in your hand or foot. 3) Excessive swelling below the cast, not relieved by elevation. 4) Foul smell or appearance of drainage on your cast. 5) A fever which is not associated with other illnesses. DO'S AND DON'TS 1) DON'T break off rough edges or trim your cast. 2) DO inspect the cast daily, call if it is cracked, becomes soft , or it is rubbing against your skin. 3) DO keep your cast clean and dry. 4) DON'T pull out the cast padding. 5) DON'T stick objects inside the cast. 6) DON'T use ice on your plaster cast. 7) DO exercise your fingers or toes and try to move them as much as the cast will permit. Frequently asked questions: Can I wash my waterproof fiberglass cast? Yes, washing or rinsing inside your fiberglass cast may reduce odor and irritation and improve the overall skin condition of the cast area. You may use a spray nozzle at a sink or flexible shower head to rinse inside your cast with warm water. Never insert any object into your cast for any purpose.No special drying procedures are necessary after wetting. Make sure you rinse out all soap after showering. If you are at the beach, make sure you rinse out any sand. If you have any questions or anything seems wrong, please contact our Orthopedic office immediatelyat and ask to speak with a nurse. After hours you can call the Clinic at and the '[id number]' can answer your questions or she will page Dr. Edgar if needed. documented in this encounterSelect Medical Specialty [facility] [place]06-22-2022 History of Present illness Narrative* Shania Garcia, RT(R) - 10/04/2021 8:00 AM EDT Radiology Service Progress Note PATIENT NAME: David Berg DATE OF SERVICE: October 04, 2021 TIME: 8:00 AM PATIENT IDENTITY VERIFICATION COMPLETED USING TWO (2) IDENTIFIERS: Name and Date of confirmedby patient verbally. FALL SCREENING: Has the patient had 2 falls in the last year or 1 fall with injury or currently using an Ambulatory Assistive Device (Walker, Cane, Wheelchair, Crutches, etc.)? No PATIENT GENDER DATA: Female. status: : No status: NO. PATIENT RELEVANT IMPLANT DATA REVIEWED: Not Applicable RADIOLOGY DEPARTMENT: General X-ray: Exam(s) Completed: Upper Extremity X- Ray(s): Wrist, right and Hand, right PERIPHERAL IV DATA: Not applicable SIGNED BY: RT Le(R) October 04, 2021 8:00 AM documented in this encounter[facility] [place]22-[facility] History of Present illness Narrative* Bruce Flores, TANYA.ALMOND ROASTER - 10/04/2021 7:21 AM EDT Subjective HPI Nontoxic-appearing female presents urgent care chief plaint right wrist pain. Duration of symptoms 4 days. Associated symptoms right wrist pain hand pain swelling. Patient states Saturday evening shetripped and fell on a board.. Fell on her sidewalk. She did land on outstretched wrist. Denies any other injuries. Did recently have back surgery. No head neck or back pain. No LOC. No blood thinners. No OTC medication use today. Pain to 8 out of 10 with movements. Has decreased range of motion dueto discomfort. Denies any numbness no tingling. Past medical history prescription medication use allergies reviewed. .Patient presents with: Wrist Pain: right, fall on saturday PAST MEDICAL HISTORY Diagnosis Date Acute hepatitis C without mention of hepatic coma(070.51) negative RNA in 2016 Anxiety state 05/29/2005 Dr. Ryan Arthritis Bulimia 02/16/2013 Cervical vertebral fracture (HCC) 05/07/2011 Chronic obstructive pulmonary disease (COPD) (HCC) does not use inhalers. 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 Not on medications, not seeing neurology. 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 Choi-ID Prediabetes Psoriasis Rheumatoid arthritis involving multiple sites with positive rheumatoid factor (HCC) 12/13/[address] Bowden RLS (restless legs syndrome) 08/29/2011 Vasovagal syncope Vitamin D deficiency PAST SURGICAL HISTORY Procedure Laterality Date CHOLECYSTECTOMY 999051 lap COCHLEAR IMPLANT HX COLONOSCOPY FLX DX W/COLLJ SPEC WHEN PFRMD 10/11/2009 Colonoscopy COLONOSCOPY FLX DX W/COLLJ SPEC WHEN PFRMD 09/30/2018 Colonoscopy EGD EUS N/A 04/06/2020 diffusely dilated PD, suspected pancreas divisum, mild duodenitis ESOPHAGOGASTRODUODENOSCOPY TRANSORAL DIAGNOSTIC 09/30/2018 EGD OPEN TREATMENT NASAL FRACTURE UNCOMPLICATED x2 no breathing problems PAST SURGICAL HISTORY OF X 2 PAST SURGICAL HISTORY OF FACIAL RECONSTRUCTION PAST SURGICAL HISTORY OF 1997 BILAT. SHOULDER SURGERY PAST SURGICAL HISTORY OF 1994 CERVICAL SPINE FUSION C4, C5 (had cervical fx x3 - even after repair) PAST SURGICAL HISTORY OF 1969 LEFT EAR CHOLESTEATOMA PAST SURGICAL HISTORY OF CLEFT LIP PAST SURGICAL HISTORY OF 02/2006 lasik PAST SURGICAL HISTORY OF 2004 bladder sling PAST SURGICAL HISTORY OF 08/09/2020 Upper endoscopy, percutaneous endoscopic gastrostomy (PEG) tube placed REMV CATARACT EXTRACAP,INSERT LENS Bilateral TRACHEOSTOMY EMERGENCY PROCEDURE TRANSTRACHEAL age 3 or 4 during surgery; lost airway ALLERGIES Acetaminophen, Bupropion Hcl, Codeine, Darvon [Propoxyphene], Daypro [Oxaprozin], Effexor[Venlafaxine Hcl], Flexeril [Cyclobenzaprine Hcl], Gabapentin, Stebbins [Hydrocodone-Acetaminophen], Oxybutynin, Pentazocine, [place] [Trees], and Tramadol MEDICATIONS losartan (COZAAR) 25 mg tablet Take 1 tablet by mouth once daily. rizatriptan (MAXALT) 10 mg tablet Take 1 tablet by mouth at onset of headache. May repeat after 1hr vjcfxc-necynnae-yzexrqa (CREON) 6,000-19,000 -30,000 unit delayed release capsule Take 2 capsules by mouth with meals and at bedtime. rOPINIRole (REQUIP) 1 mg tablet Take 1 tablet by mouth daily at bedtime. omega-3 fatty acids 1,000 mg cap Take 2 capsules by mouth once daily. psyllium Husk (DAILY FIBER) 0.52 gram capsule Take 1 capsule by mouth once daily. dicyclomine (BENTYL) 10 mg capsule Take 1 capsule by mouth four times daily as needed. For upper abdominal pain. calcium carbonate 600 mg-cholecalciferol 400 units (CALCIUM 600 + D) 600 mg-10 mcg (400 unit) tab Take 1 tablet by mouth once daily. magnesium oxide (MAG-OX) 400 mg (241.3 mg magnesium) tablet Take 1 tablet by mouth once daily. potassium chloride SR (MICRO-K) 8 mEq cpER take 1 capsule by mouth once daily with BREAKFAST atorvastatin (LIPITOR) 40 mg tablet Take 0.5 tablets by mouth daily at bedtime. For cholesterol. abatacept (ORENCIA) 125 mg/mL INJECT THE CONTENTS OF 1 SYRINGE (125 MG) UNDER THE SKIN ONCE EACH WEEK Nebulizers 1 Each once daily. albuterol (PROVENTIL) 2.5 mg /3 mL (0.083 %) nebulizer solution Use 3 mL via nebulizer every 4 hours as needed for wheezing/shortness of breath. Use over 5-15minutes. omeprazole (PRILOSEC) 40 mg capsule Take 1 capsule by mouth twice daily. Blood Pressure Monitor (BLOOD PRESSURE KIT) 1 Each once daily as needed. Dx: recurrent syncope R55 sodium chloride 1 gram tab Take 1 tablet by mouth three times daily. bacitracin zinc 500 unit/gram ointment nicotine (NICOTROL) 10 mg inhaler Inhale 2 Puffs as instructed as needed. apremilast (OTEZLA ORAL) Take 30 mg by mouth once daily. Aug Betamethasone Dipropionate (DIPROLENE) 0.05 % ointment apply to HANDS AT BEDTIME AND WEAR PLASTIC GLOVES OVERNIGHT tretinoin (RETIN-A) 0.025 % gel Apply 1 application to affected area daily at bedtime. DX: Psoriasis L40.9/ 696.1 ALPRAZolam (XANAX) 1 mg tablet Take 1 mg by mouth twice daily. QUEtiapine (SEROQUEL) 100 mg tablet Take 2 tablets by mouth daily at bedtime. phenazopyridine (PYRIDIUM) 100 mg tablet Take 2 tablets by mouth three times daily as needed. Food Supplement, Lactose-Free (ENSURE ORIGINAL) liqd Take 237 mL by mouth three times daily with meals. benzonatate (TESSALON PERLE) 100 mg capsule Take 1-2 capsules tid prn, no more than 6 in 24 hours. topiramate (TOPAMAX) 25 mg tablet Take 1 tablet by mouth daily at bedtime. [DISCONTINUED] tofacitinib tablet 5 mg (XELJANZ) Take 1 tablet (5 mg) by mouth twice daily. FAMILY HISTORY Problem Relation Age of Onset Stroke Mother Hypertension Mother Diabetes Father Cancer Father melanoma Cancer Sister thyroid Cancer Brother 21 testicular Breast Cancer Sister Breast Cancer Sister Breast Cancer Maternal Aunt Cancer Other J-avmmyx-Lwqgwfzynr Social History Tobacco Use Smoking status: Former Smoker Packs/day: 1.00 Years: 30.00 Pack years: 30.00 Types: Cigarettes, Pipe Quit date: 06/02/2017 Years since quittin.3 Smokeless tobacco: Never Used Tobacco comment: vapes Vaping Use Vaping Use: Never used Substance Use Topics Alcohol use: No Drug use: No Comment: IV DRUG USER BP 128/82 Pulse 90 Temp 37.1 C (98.7 F) Resp 16 Wt 60.3 kg (133 lb) SpO2 95% BMI 23.19 kg/m Review of Systems Constitutional: Negative for chills, fever and malaise/fatigue. HENT: Negative for congestion, ear discharge, ear pain, sinus pain and sore throat. Eyes: Negative for blurred vision, pain, discharge and redness. Respiratory: Negative for cough, hemoptysis, sputum production, shortness of breath, wheezing and stridor. Cardiovascular: Negative for chest pain. Gastrointestinal: Negative for abdominal pain, diarrhea, nausea and vomiting. Musculoskeletal: Positive for falls and joint pain. Negative for back pain, myalgias and neck pain. Skin: Negative for itching and rash. Neurological: Negative for dizziness and headaches. Objective Physical Exam Constitutional: General: She is not in acute distress. Appearance: She is not diaphoretic. HENT: Head: Normocephalic. Eyes: Conjunctiva/sclera: Conjunctivae normal. Pupils: Pupils are equal, round, and reactive to light. Cardiovascular: Rate and Rhythm: Normal rate and regular rhythm. Heart sounds: Normal heart sounds. Pulmonary: Effort: Pulmonary effort is normal. No tachypnea, accessory muscle usage or respiratory distress. Breath sounds: Normal breath sounds. No stridor. Abdominal: Palpations: Abdomen is soft. Musculoskeletal: Right elbow: Normal. Right forearm: Normal. Right wrist: Swelling, tenderness, bony tenderness and snuff box tenderness present. No deformity, effusion, lacerations or crepitus. Decreased range of motion. Normal pulse. Right hand: Swelling, tenderness and bony tenderness present. No deformity or lacerations. Decreased range of motion. Decreased strength. Normal sensation. Normal capillary refill. Normal pulse. Cervical back: Normal range of motion and neck supple. No rigidity or tenderness. Comments: No breaks in skin. Neurovascular intact. Lymphadenopathy: Cervical: No cervical adenopathy. Skin: General: Skin is warm and dry. Neurological: Mental Status: She is alert and oriented to person, place, and time. ASSESSMENT/PLAN: 1. Injury of right hand, initial encounter - ICD9: 959.4, ICD10: S69.91XA (primary diagnosis) - XR HAND GENERAL 3V PA/LAT/OBL RIGHT - XR HAND GENERAL 3V PA/LAT/OBL RIGHT 2. Right wrist pain - ICD9: 719.43, ICD10: M25.531 - XR WRIST INJURY 4V PA/LAT/OBL/SCAPH RIGHT 3. Closed fracture of distal end of right radius, unspecified fracture morphology, initial encounter - ICD9: 813.42, ICD10: S52.501A RESULT: Nondisplaced hairline fracture distal radial metaphysis IMPRESSION IMPRESSION: Fracture Fracture noted on x-ray. Patient placed in a volar splint. 4 inch Ortho-Glass. Patient placed in sling. Neurovascular checked pre and post splint application. No abnormal findings noted. Will follow up with orthopedic. Referral placed. Patient was educated on supportive therapies. Patient will follow up with primary care provider as needed. Patient was instructed to immediately proceed to emergency room for any new, worsening, or symptoms lasting longer than anticipated. The patient's clinical presentation is otherwise unremarkable at this time. Based on exam and clinical finding, the patientis stable for discharge. Plan of care was discussed with patient. Patient verbalizes understanding and agrees to plan of care. This note was generated using [employer] software. It may contain errors in wording, punctuation, or spelling. Bruce Flores APRN.EDMUND documented in this encounterSelect [facility] [place]06-13-2022 Miscellaneous Notes* Telephone Encounter - Joan Red Ma - 09/25/2021 10:36 AM EDT Pt notified and voiced understanding. Is scheduled for nurse visit appt on 10/07/21 already, reminded to bring her machine with her to visit. She voiced understanding. Joan Red Ma * Telephone Encounter - Sheyla Palafox APRN.CNP - 09/25/2021 10:32 AM EDT Looks like readings have improved. Given her hx of low BP I would like her to just continue what she is on. She is due for follow-up with us for nurse visit. Remind her to bring her BP cuff to that appointment so we can validate it. Sheyla Palafox APRN.CNP * Telephone Encounter - Malika Mott LPN - 09/25/2021 10:11 AM EDT Pt is calling with her BP updates: 09-22-21 PM 198/127 09-23-21 AM 136/80 3 PM 129/78 Evening 114/77 09-24-21 AM 138/80 Evening 126/119 09-25-21 10 AM 147/87 Pt asking if she needs to take an extra pill Cozaar. Please advise pt. Malika Mott LPN documented in this encounterSelect [facility] [place]06-10-2022 History of Present illness Narrative* Sheyla Palafox APRN.ALMOND ROASTER - 09/22/2021 2:15 PM EDT am09/22/2021 Patient presents with: Blood Pressure SUBJECTIVE: This is a 65 year old that is here today for Above Complaints. Reports having some urinary issues since 09/16/2021. She was having just some dribbling of urine so she went to Urgent Care although she was told to go to ER. Went to Urgent Care yesterday and had urine testing completed. Given prescription for pyridium which she thinks is helping. Blood pressure was elevated and she was told to follow-up. Patient is 3 weeks post op from surgery for compression fracture of the lumbar spine. She is still having some difficulty with emptying her bladder- she reports she will go some then just stop and then five minutes later will have to go again. Denies fevers, chills, abdominal pain, nausea, vomiting, or hematuria PAST MEDICAL HISTORY Diagnosis Date Acute hepatitis C without mention of hepatic coma(070.51) negative RNA in 2016 Anxiety state 05/29/2005 Dr. Ryan Arthritis Bulimia 02/16/2013 Cervical vertebral fracture (HCC) 05/07/2011 Chronic obstructive pulmonary disease (COPD) (HCC) does not use inhalers. 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 Not on medications, not seeing neurology. 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 Choi-ID Prediabetes Psoriasis Rheumatoid arthritis involving multiple sites with positive rheumatoid factor ([facility]) 12/13/[address] Bowden RLS (restless legs syndrome) 08/29/2011 Vasovagal syncope Vitamin D deficiency ALLERGIES Acetaminophen, Bupropion Hcl, Codeine, Darvon [Propoxyphene], Daypro [Oxaprozin], Effexor[Venlafaxine Hcl], Flexeril [Cyclobenzaprine Hcl], Gabapentin, Stebbins [Hydrocodone-Acetaminophen], Oxybutynin, Pentazocine, [place] [Trees], and Tramadol MEDICATIONS Current Outpatient Medications Medication Sig phenazopyridine (PYRIDIUM) 100 mg tablet Take 2 tablets by mouth three times daily as needed. rizatriptan (MAXALT) 10 mg tablet Take 1 tablet by mouth at onset of headache. May repeat after 1hr gzrtwh-zbdnctit-hvuspjz (CREON) 6,000-19,000 -30,000 unit delayed release capsule Take 2 capsules by mouth with meals and at bedtime. rOPINIRole (REQUIP) 1 mg tablet Take 1 tablet by mouth daily at bedtime. omega-3 fatty acids 1,000 mg cap Take 2 capsules by mouth once daily. Food Supplement, Lactose-Free (ENSURE ORIGINAL) liqd Take 237 mL by mouth three times daily with meals. (Patient not taking: Reported on 09/21/2021 ) psyllium Husk (DAILY FIBER) 0.52 gram capsule Take 1 capsule by mouth once daily. dicyclomine (BENTYL) 10 mg capsule Take 1 capsule by mouth four times daily as needed. For upper abdominal pain. calcium carbonate 600 mg-cholecalciferol 400 units (CALCIUM 600 + D) 600 mg-10 mcg (400 unit) tab Take 1 tablet by mouth once daily. magnesium oxide (MAG-OX) 400 mg (241.3 mg magnesium) tablet Take 1 tablet by mouth once daily. potassium chloride SR (MICRO-K) 8 mEq cpER take 1 capsule by mouth once daily with BREAKFAST atorvastatin (LIPITOR) 40 mg tablet Take 0.5 tablets by mouth daily at bedtime. For cholesterol. abatacept (ORENCIA) 125 mg/mL INJECT THE CONTENTS OF 1 SYRINGE (125 MG) UNDER THE SKIN ONCE EACH WEEK Nebulizers 1 Each once daily. albuterol (PROVENTIL) 2.5 mg /3 mL (0.083 %) nebulizer solution Use 3 mL via nebulizer every 4 hours as needed for wheezing/shortness of breath. Use over 5-15minutes. benzonatate (TESSALON PERLE) 100 mg capsule Take 1-2 capsules tid prn, no more than 6 in 24 hours. omeprazole (PRILOSEC) 40 mg capsule Take 1 capsule by mouth twice daily. Blood Pressure Monitor (BLOOD PRESSURE KIT) 1 Each once daily as needed. Dx: recurrent syncope R55 topiramate (TOPAMAX) 25 mg tablet Take 1 tablet by mouth daily at bedtime. (Patient not taking: Reported on 09/21/2021 ) sodium chloride 1 gram tab Take 1 tablet by mouth three times daily. bacitracin zinc 500 unit/gram ointment nicotine (NICOTROL) 10 mg inhaler Inhale 2 Puffs as instructed as needed. apremilast (OTEZLA ORAL) Take 30 mg by mouth once daily. Aug Betamethasone Dipropionate (DIPROLENE) 0.05 % ointment apply to HANDS AT BEDTIME AND WEAR PLASTIC GLOVES OVERNIGHT tretinoin (RETIN-A) 0.025 % gel Apply 1 application to affected area daily at bedtime. DX: Psoriasis L40.9/ 696.1 ALPRAZolam (XANAX) 1 mg tablet Take 1 mg by mouth twice daily. QUEtiapine (SEROQUEL) 100 mg tablet Take 2 tablets by mouth daily at bedtime. No current facility-administered medications for this visit. Medications and allergies reviewed by this provider. SOCIAL HISTORY Social History Tobacco Use Smoking status: Former Smoker Packs/day: 1.00 Years: 30.00 Pack years: 30.00 Types: Cigarettes, Pipe Quit date: 06/02/2017 Years since quittin.3 Smokeless tobacco: Never Used Tobacco comment: vapes Vaping Use Vaping Use: Never used Substance Use Topics Alcohol use: No Drug use: No Comment: IV DRUG USER REVIEW OF SYSTEMS All other reviewed and negative other than HPI. OBJECTIVE: BP 162/110 Pulse 107 Resp 16 Wt 58.5 kg (129 lb) SpO2 96% BMI 22.49 kg/m . Vital signs reviewed by this provider. APPEARANCE Well appearing, alert, in no acute distress, well-hydrated, well nourished. EYES PERRLA, conjunctiva and sclera normal. HEART RRR with normal S1 and S2, no murmurs, no gallops, no JVD appreciated LUNG clear to auscultation. No wheezes, rhonchi, or rales ABDOMEN bowel sounds normoactive, no bruits, soft, non-tender, non-distended EXTREMITIES Extremities normal, No deformities, No skin discoloration and No edema SKIN Skin color, texture, turgor normal, no suspicious rashes or lesions to exposed skin COVID-19 VACCINE(1) Never done SPIROMETRY Never done SHINGRIX VACCINE(1 of 2) Never done PNEUMOCOCCAL(3 - PPSV23 or PCV20) due on 11/16/2015 MAMMOGRAM due on 04/10/2019 LUNG CANCER SCREENING due on 12/27/2020 DEPRESSION SCREENING due on 04/11/2022 ANNUAL PCP TEAM CHRONIC DISEASE VISIT due on 09/22/2022 PAP TESTING due on 01/15/2023 HPV TESTING due on 01/15/2023 DTAP,TDAP,TD(3 - Td or Tdap) due on 09/15/2023 DIABETES SCREEN due on 09/21/2024 LIPID SCREEN due on 12/15/2025 COLORECTAL CANCER SCREENING due on 09/30/2028 INFLUENZA Completed HEPATITIS C SCREENING Completed HIV SCREENING Completed ASSESSMENT/PLAN: 1. Difficulty urinating - ICD9: 788.99, ICD10: R39.198 (primary diagnosis) - STAT us shows no urinary retention - US PELVIS BLADDER - stay hydrated with water 2. Urinary tract infection without hematuria, site unspecified - ICD9: 599.0, ICD10: N39.0 acute - Begin treatment with Amoxicillin 875 mg BID for 5 days - stay hydrated with water - culture shows group b streptococcus - AMOXICILLIN 875 MG TABLET 3. Hypertension, unspecified type - ICD9: 401.9, ICD10: I10 - newly diagnosed - Begin losartan(Cozaar) - Encouraged dietary sodium restriction/DASH diet - Recommended regular aerobic exercise. - Recommend home blood pressure monitoring, to bring results in on next visit - Recheck in 2 week, sooner should new symptoms or problems arise. - Goal of BP <130/80 - Recommend home or pharmacy blood pressure monitoring - Recommended no refined sugar, low refined starch, healthy oil intake (olive oil), healthy protein(fish) along the lines of the Mediterranean diet. - LOSARTAN 25 MG TABLET - call ar Saturday with blood pressure readings Sheyla Palafox APRN.CNP Prescription instructions reviewed with patient as applicable. Patient advised if symptoms do not improve or if symptoms worsen sooner, to contact their primary care physician. Potential red flag symptoms discussed with the patient. Reviewed appropriate action plan to take if red flag symptoms occur. Patient agreeable to treatment plan. documented in this encounterSelect [facility] [place]06-10-2022 Miscellaneous Notes* Telephone Encounter - Lexi Main LPN - 09/22/2021 11:15 AM EDT Patient returned call and went over results from urgent care provider with understanding. * Telephone Encounter - Sarah Bosch APRN.CNP - 09/21/2021 7:20 PM EDT CBC has returned normal. We are awaiting her CMP. We will reach out when that returns. documented in this encounterSelect [facility] [place]06-10-2022 Miscellaneous Notes* Telephone Encounter - Sheyla Palafox APRN.CNP - 09/22/2021 9:27 AM EDT Thanks, Sheyla Palafox APRN.CNP * Telephone Encounter - Bernarda Terry LPN - 09/22/2021 9:18 AM EDT Patient scheduled with [employer] this day. Bernarda Terry LPN * Telephone Encounter - Malika Ignacio - 09/21/2021 4:04 PM EDT Spoke with patient. She will call PCP to get nurse visit to have BP rechecked as indicated below. Cardiology does not have any visits in near future. Malika Ignacio * Telephone Encounter - Malika Ignacio - 09/21/2021 3:58 PM EDT Sarah Borges APRN.ALMOND ROASTER Blood pressures at last two office visits with us 100 and 130 systolic. Needs BP check with a nurseto confirm elevation prior to adjusting medications. If patient has a home cuff, bring office to visit for comparison/accuracy. Could also see PCP for BP assessment/management as we are booked out far for office visits with a cardiology provider or can come see me in [place]. Thank you! Message text * Telephone Encounter - Judith Cordova LPN - 09/21/2021 12:44 PM EDT Patient calling and was seen in Urgent Care today for a urinary problem. Her BP was taken twice, and was 198/126. She was advised by the ALMOND ROASTER to follow up with our office. Please advise patient if sheneeds a follow up nurse visit or visit with MD to reassess. She states she typically runs low and has a history of syncope. Judith Cordova LPN documented in this encounterSelect Medical [facility]ty [facility] [place]06-09-2022 History of Present illness Narrative* Pam Lutz APRN.EDMUND - 09/21/2021 10:17 AM EDT Images from the original note were not included. Subjective HPI David Berg is a 65 year old female who presents with the following complaints: Right hand pain following a fall at home 2 days ago. Lost her balance and fell onto floor landing on her right hand. Urinary urgency- feels like she has to go constantly but only dribbles urine when on toilet. During rooming intake her blood pressure is noted to be elevated. She is not on any HTN medications. Review of Systems Constitutional: Negative for chills and fever. Respiratory: Negative for cough, shortness of breath and wheezing. Cardiovascular: Negative for chest pain and leg swelling. Gastrointestinal: Negative for vomiting. Genitourinary: Positive for urgency. Negative for dysuria, frequency and hematuria. Musculoskeletal: Positive for falls and joint pain. BP (!) 198/126 Pulse 100 Temp 36.6 C (97.8 F) Resp 23 Wt 59.8 kg (131 lb 12.8 oz) SpO2 96% BMI 22.98 kg/m PAST MEDICAL HISTORY Diagnosis Date Acute hepatitis C without mention of hepatic coma(070.51) negative RNA in 2016 Anxiety state 05/29/2005 Dr. Ryan Arthritis Bulimia 02/16/2013 Cervical vertebral fracture (HCC) 05/07/2011 Chronic obstructive pulmonary disease (COPD) (HCC) does not use inhalers. 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 Not on medications, not seeing neurology. 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 Choi-ID Prediabetes Psoriasis Rheumatoid arthritis involving multiple sites with positive rheumatoid factor (HCC) 12/13/[address] Bowden RLS (restless legs syndrome) 08/29/2011 Vasovagal syncope Vitamin D deficiency PAST SURGICAL HISTORY Procedure Laterality Date CHOLECYSTECTOMY [id number] lap COCHLEAR IMPLANT HX COLONOSCOPY FLX DX W/COLLJ SPEC WHEN PFRMD 10/11/2009 Colonoscopy COLONOSCOPY FLX DX W/COLLJ SPEC WHEN PFRMD 09/30/2018 Colonoscopy EGD EUS N/A 04/06/2020 diffusely dilated PD, suspected pancreas divisum, mild duodenitis ESOPHAGOGASTRODUODENOSCOPY TRANSORAL DIAGNOSTIC 09/30/2018 EGD OPEN TREATMENT NASAL FRACTURE UNCOMPLICATED x2 no breathing problems PAST SURGICAL HISTORY OF X 2 PAST SURGICAL HISTORY OF FACIAL RECONSTRUCTION PAST SURGICAL HISTORY OF 1997 BILAT. SHOULDER SURGERY PAST SURGICAL HISTORY OF 1994 CERVICAL SPINE FUSION C4, C5 (had cervical fx x3 - even after repair) PAST SURGICAL HISTORY OF 1969 LEFT EAR CHOLESTEATOMA PAST SURGICAL HISTORY OF CLEFT LIP PAST SURGICAL HISTORY OF 02/2006 lasik PAST SURGICAL HISTORY OF 2004 bladder sling PAST SURGICAL HISTORY OF 08/09/2020 Upper endoscopy, percutaneous endoscopic gastrostomy (PEG) tube placed REMV CATARACT EXTRACAP,INSERT LENS Bilateral TRACHEOSTOMY EMERGENCY PROCEDURE TRANSTRACHEAL age 3 or 4 during surgery; lost airway ALLERGIES Acetaminophen, Bupropion Hcl, Codeine, Darvon [Propoxyphene], Daypro [Oxaprozin], Effexor[Venlafaxine Hcl], Flexeril [Cyclobenzaprine Hcl], Gabapentin, Stebbins [Hydrocodone-Acetaminophen], Oxybutynin, Pentazocine, [place] [Trees], and Tramadol MEDICATIONS rizatriptan (MAXALT) 10 mg tablet Take 1 tablet by mouth at onset of headache. May repeat after 1hr wnknzq-faykqhkj-angaqrj (CREON) 6,000-19,000 -30,000 unit delayed release capsule Take 2 capsules by mouth with meals and at bedtime. rOPINIRole (REQUIP) 1 mg tablet Take 1 tablet by mouth daily at bedtime. omega-3 fatty acids 1,000 mg cap Take 2 capsules by mouth once daily. psyllium Husk (DAILY FIBER) 0.52 gram capsule Take 1 capsule by mouth once daily. dicyclomine (BENTYL) 10 mg capsule Take 1 capsule by mouth four times daily as needed. For upper abdominal pain. calcium carbonate 600 mg-cholecalciferol 400 units (CALCIUM 600 + D) 600 mg-10 mcg (400 unit) tab Take 1 tablet by mouth once daily. magnesium oxide (MAG-OX) 400 mg (241.3 mg magnesium) tablet Take 1 tablet by mouth once daily. potassium chloride SR (MICRO-K) 8 mEq cpER take 1 capsule by mouth once daily with BREAKFAST atorvastatin (LIPITOR) 40 mg tablet Take 0.5 tablets by mouth daily at bedtime. For cholesterol. abatacept (ORENCIA) 125 mg/mL INJECT THE CONTENTS OF 1 SYRINGE (125 MG) UNDER THE SKIN ONCE EACH WEEK Nebulizers 1 Each once daily. albuterol (PROVENTIL) 2.5 mg /3 mL (0.083 %) nebulizer solution Use 3 mL via nebulizer every 4 hours as needed for wheezing/shortness of breath. Use over 5-15minutes. benzonatate (TESSALON PERLE) 100 mg capsule Take 1-2 capsules tid prn, no more than 6 in 24 hours. Blood Pressure Monitor (BLOOD PRESSURE KIT) 1 Each once daily as needed. Dx: recurrent syncope R55 sodium chloride 1 gram tab Take 1 tablet by mouth three times daily. bacitracin zinc 500 unit/gram ointment nicotine (NICOTROL) 10 mg inhaler Inhale 2 Puffs as instructed as needed. apremilast (OTEZLA ORAL) Take 30 mg by mouth once daily. Aug Betamethasone Dipropionate (DIPROLENE) 0.05 % ointment apply to HANDS AT BEDTIME AND WEAR PLASTIC GLOVES OVERNIGHT tretinoin (RETIN-A) 0.025 % gel Apply 1 application to affected area daily at bedtime. DX: Psoriasis L40.9/ 696.1 ALPRAZolam (XANAX) 1 mg tablet Take 1 mg by mouth twice daily. QUEtiapine (SEROQUEL) 100 mg tablet Take 2 tablets by mouth daily at bedtime. phenazopyridine (PYRIDIUM) 100 mg tablet Take 2 tablets by mouth three times daily as needed. Food Supplement, Lactose-Free (ENSURE ORIGINAL) liqd Take 237 mL by mouth three times daily with meals. omeprazole (PRILOSEC) 40 mg capsule Take 1 capsule by mouth twice daily. topiramate (TOPAMAX) 25 mg tablet Take 1 tablet by mouth daily at bedtime. [DISCONTINUED] tofacitinib tablet 5 mg (XELJANZ) Take 1 tablet (5 mg) by mouth twice daily. FAMILY HISTORY Problem Relation Age of Onset Stroke Mother Hypertension Mother Diabetes Father Cancer Father melanoma Cancer Sister thyroid Cancer Brother 21 testicular Breast Cancer Sister Breast Cancer Sister Breast Cancer Maternal Aunt Cancer Other A-ddqsep-Kfajethsqa Social History Tobacco Use Smoking status: Former Smoker Packs/day: 1.00 Years: 30.00 Pack years: 30.00 Types: Cigarettes, Pipe Quit date: 06/02/2017 Years since quittin.3 Smokeless tobacco: Never Used Tobacco comment: vapes Vaping Use Vaping Use: Never used Substance Use Topics Alcohol use: No Drug use: No Comment: IV DRUG USER Objective Physical Exam Vitals and nursing note reviewed. Constitutional: General: She is not in acute distress. Appearance: Normal appearance. She is not ill-appearing. Cardiovascular: Rate and Rhythm: Normal rate and regular rhythm. Heart sounds: Normal heart sounds. Pulmonary: Effort: Pulmonary effort is normal. No respiratory distress. Breath sounds: Normal breath sounds. No wheezing or rales. Abdominal: General: Abdomen is flat. There is no distension. Palpations: Abdomen is soft. There is no mass. Tenderness: There is no abdominal tenderness. There is no right CVA tenderness, left CVA tendernessor guarding. Musculoskeletal: General: Tenderness and signs of injury present. No swelling or deformity. Right hand: Tenderness present. No swelling, deformity or bony tenderness. Normal range of motion. Normal strength. Normal sensation. Normal capillary refill. Normal pulse. Hands: Skin: General: Skin is warm and dry. Findings: No bruising, erythema or rash. Neurological: Mental Status: She is alert. ASSESSMENT/PLAN: 1. Urgency of urination - ICD9: 788.63, ICD10: R39.15 (primary diagnosis) - URINE CULTURE - PHENAZOPYRIDINE 100 MG TABLET 2. Hand injury, right, initial encounter - ICD9: 959.4, ICD10: S69.91XA - XR HAND GENERAL 3V PA/LAT/OBL RIGHT. My reading: negative. Radiologist Impression: 1. No acute fracture or dislocation. Fringing Machine Operator: ALEXEI Transcribe Date/Time: Sep 21 2021 10:01A Dictated by : ELODIA LYN MD - JESSICA wrap applied to right hand. - RICE therapy as below 3. Elevated blood pressure reading without diagnosis of hypertension - ICD9: 796.2, ICD10: R03.0 - CBC + DIFF - COMP METABOLIC PANEL - recommend follow up with PCP as soon as possible - Follow-up with your PCP in 3-5 days if symptoms have not improved or sooner if symptoms worsen - Discussed red flags and need for immediate medical evaluation if any occur. - Discussed supportive care treatment with fluids, rest and analgesia. - Discussed expected course of illness Pam Lutz APRN.CNP documented in this encounter[facility] [place] Instructions* Patient Instructions* Pam Lutz APRN.CNP - 09/21/2021 10:16 AM EDT ASSESSMENT/PLAN: 1. Urgency of urination - ICD9: 788.63, ICD10: R39.15 (primary diagnosis) - URINE CULTURE - PHENAZOPYRIDINE 100 MG TABLET 2. Hand injury, right, initial encounter - ICD9: 959.4, ICD10: S69.91XA - XR HAND GENERAL 3V PA/LAT/OBL RIGHT. My reading: negative. Radiologist Impression: 1. No acute fracture or dislocation. Fringing Machine Operator: ALEXEI Transcribe Date/Time: Sep 21 2021 10:01A Dictated by : ELODIA LYN MD - JESSICA wrap applied to right hand. - RICE therapy as below 3. Elevated blood pressure reading without diagnosis of hypertension - ICD9: 796.2, ICD10: R03.0 - CBC + DIFF - COMP METABOLIC PANEL - recommend follow up with PCP as soon as possible - Follow-up with your PCP in 3-5 days if symptoms have not improved or sooner if symptoms worsen - Discussed red flags and need for immediate medical evaluation if any occur. - Discussed supportive care treatment with fluids, rest and analgesia. - Discussed expected course of illness Pam Lutz APRN.CNP documented in this encounterSelect [facility] [place]06-[facility]22 History of Present illness Narrative* Gladys Murillo RT(R) - 09/21/2021 10:00 AM EDT Radiology Service Progress Note PATIENT NAME: David Berg DATE OF SERVICE: September 21, 2021 TIME: 9:51 AM PATIENT IDENTITY VERIFICATION COMPLETED USING TWO (2) IDENTIFIERS: Name and Date of confirmedby patient verbally. FALL SCREENING: Has the patient had 2 falls in the last year or 1 fall with injury or currently using an Ambulatory Assistive Device (Walker, Cane, Wheelchair, Crutches, etc.)? No PATIENT GENDER DATA: Female. status: : No status: NO. PATIENT RELEVANT IMPLANT DATA REVIEWED: Yes RADIOLOGY DEPARTMENT: General X-ray: Exam(s) Completed: Upper Extremity X- Ray(s): Hand, right PERIPHERAL IV DATA: Not applicable SIGNED BY: RT Celia(R) September 21, 2021 9:51 AM documented in this encounterSelect [facility] [place]06-04-2022 Miscellaneous Notes* Telephone Encounter - Isabel Rodrigues RN - 09/16/2021 8:27 AM EDT Reason for call: Urinary Symptoms. Outcome: Go To ED Now. Patient states she has not been able to void since yesterday. Patient had recent back surgery. Patient states she only dribbles when she urinates. Denies hematuria or dysuria. Patient does feel theneed to void. Unable to palpate bladder as she has a body cast from back surgery. Reason for Disposition [1] Unable to urinate (or only a few drops) > 4 hours AND [2] bladder feels very full (e.g., palpable bladder or strong urge to urinate) Protocols used: URINARY LNPADYST-RZIBT-AS documented in this encounterSelect [facility] [place]06-02-2022 Miscellaneous Notes* Telephone Encounter - Marlene Rodarte RN - 09/14/2021 4:16 PM EDT Patient has been identified by name and date of : Yes Patient phones for refill(s): Pending Prescriptions Disp Refills RIZATRIPTAN 10 MG TABLET 24 tablet 2 Sig: Take 1 tablet by mouth at onset of headache. May repeat after 1hr ADAIR: No Date of last office visit with pcp: Date of last office visit in primary care: 08/01/21 Last 2 Encounter Wt Readings: Date: Wt: 04/11/2021 58.5 kg (129 lb) 03/17/2021 59.4 kg (131 lb) Previous labs/tests for medication: Not applicable Please advise. Thank you. Marlene Rodarte RN documented in this encounterSelect [facility] [place]05-13-2022 Miscellaneous Notes* Telephone Encounter - Emi Beck Ma - 08/25/2021 12:55 PM EDT Patient was notified and will go to urgent care due to not able to complete VV Emi Beck Ma * Telephone Encounter - Lizbeth Pool MD - 08/25/2021 10:52 AM EDT Agree or can schedule VV with me or available provider. * Telephone Encounter - Avani Rayo RN - 08/25/2021 10:38 AM EDT Patient calling to state she believes she may have COVID and would like to get tested. She reports she has been exposed to multiple family members who have recently tested positive for COVID. She states her symptoms started about 3 days ago and has had a sore throat and cough. Denies shortness of breath, chest pain, body aches, headaches, nausea, vomiting or diarrhea. Discussed UC is available for COVID testing today and patient states she plans to go there today for evaluation of her symptoms. Avani Rayo RN documented in this encounterSelect [facility] [place]05-09-2022 Miscellaneous Notes* Telephone Encounter - Linda Hartman RN - 08/21/2021 12:03 PM EDT Re faxed referral to Dr Carmona's office at # [phone]. * Telephone Encounter - Tammie Stevens MA - 08/21/2021 11:08 AM EDT Referral printed & faxed to: [phone]. Patient notified. * Telephone Encounter - Sheyla Palafox APRN.CNP - 08/21/2021 11:03 AM EDT Order for pain management placed. Please fax to Dr. Auguste's office as patient requested. Let her know order was faxed. Sheyla Palafox APRN.CNP * Telephone Encounter - Tammie Stevens MA - 08/21/2021 10:55 AM EDT Looked up both providers: Dr. Auguste is at the [facility] separate from Dr. Leach at the [facility]. Referral will need to be replaced. Tammie Stevens MA * Telephone Encounter - Sheyla Palafox APRN.CNP - 08/21/2021 8:43 AM EDT I believe these two physicians are in the same practice so she does not need a referral for this. Sheyla Palafox APRN.EDMUND * Telephone Encounter - Avani Rayo RN - 08/21/2021 8:22 AM EDT Patient calling for a request from Dr. Pool. Patient requesting a Pain Mgmt referral to be written and faxed to Dr. Auguste, if provider agreeable. Patient states she recently has surgery on her L1 vertebral area by Dr. Leach and has been experiencing back pain as well as numbness from her pubic area to left knee since the procedure. She states Dr. Leach states her symptoms are not from the procedure and she may have a pinched nerve and could give her an injection. Patient states she does not prefer to see Dr. Leach any more and would like to see Dr. Auguste. Please update patient at [phone]. Thank you. documented in this encounterSelect [facility] [place]04-19-2022 History of Present illness Narrative* Sheyla Palafox, TANYA.ALMOND ROASTER - 08/01/2021 1:40 PM EDT 08/01/2021 Patient presents with: Recheck Patient unable to get video to work- reports has not link to get on. Phone visit completed SUBJECTIVE: This is a 65 year old that is here today for Above Complaints.. HOSPITAL/ER FOLLOW UP: Reason for visit: fall Which facility: [facility] Date of visit: 07/24/2021 Diagnosis: head injury, L1 vertebral compression Testing done: CT brain without contrast, CT ABD and pelvis with contrast, spine cervical without contrast, CT chest with contrast Treatment given: pain medication and follow-up with spine in [place] Current symptoms: continues pain Followed up with Dr. Guzman, spine, in [place]. She reports he sascha he would refer her to Dr. Avendano surgery- cementing. She is frustrated because she has not heard back with office to make appointment. Taking pain medication as ordered which helps minimally. Patient reports pain is so bad she can not stand up long enough to cook. Patient reports she has been in contact with her care source analytics senior manager for possible help with ADL's, awaiting to here back. Also notes some constipation. She has been suing OTC laxatives which is helping. Admits to a heavier feeling in left lower leg. Denies headaches, visual changes, confusion, saddle anaesthesia, extremity numbness, tingling, weakness, saddle an aesthesia, urinary/bowel incontinence or inability ER record reviewed PAST MEDICAL HISTORY Diagnosis Date Acute hepatitis C without mention of hepatic coma(070.51) negative RNA in 2016 Anxiety state 05/29/2005 Dr. Ryan Arthritis Bulimia 02/16/2013 Cervical vertebral fracture (HCC) 05/07/2011 Chronic obstructive pulmonary disease (COPD) ([facility]) does not use inhalers. 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 Not on medications, not seeing neurology. 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 Choi-ID Prediabetes Psoriasis Rheumatoid arthritis involving multiple sites with positive rheumatoid factor ([facility]) 12/13/[address] Bowden RLS (restless legs syndrome) 08/29/2011 Vasovagal syncope Vitamin D deficiency ALLERGIES Acetaminophen, Bupropion Hcl, Codeine, Darvon [Propoxyphene], Daypro [Oxaprozin], Effexor[Venlafaxine Hcl], Flexeril [Cyclobenzaprine Hcl], Gabapentin, Stebbins [Hydrocodone-Acetaminophen], Oxybutynin, Pentazocine, and [place] [Trees] MEDICATIONS Current Outpatient Medications Medication Sig vzobxx-otghnwdn-bqduaax (CREON) 6,000-19,000 -30,000 unit delayed release capsule Take 2 capsules by mouth with meals and at bedtime. rOPINIRole (REQUIP) 1 mg tablet Take 1 tablet by mouth daily at bedtime. omega-3 fatty acids 1,000 mg cap Take 2 capsules by mouth once daily. Food Supplement, Lactose-Free (ENSURE ORIGINAL) liqd Take 237 mL by mouth three times daily with meals. psyllium Husk (DAILY FIBER) 0.52 gram capsule Take 1 capsule by mouth once daily. dicyclomine (BENTYL) 10 mg capsule Take 1 capsule by mouth four times daily as needed. For upper abdominal pain. calcium carbonate 600 mg-cholecalciferol 400 units (CALCIUM 600 + D) 600 mg-10 mcg (400 unit) tab Take 1 tablet by mouth once daily. magnesium oxide (MAG-OX) 400 mg (241.3 mg magnesium) tablet Take 1 tablet by mouth once daily. potassium chloride SR (MICRO-K) 8 mEq cpER take 1 capsule by mouth once daily with BREAKFAST atorvastatin (LIPITOR) 40 mg tablet Take 0.5 tablets by mouth daily at bedtime. For cholesterol. abatacept (ORENCIA) 125 mg/mL INJECT THE CONTENTS OF 1 SYRINGE (125 MG) UNDER THE SKIN ONCE EACH WEEK Nebulizers 1 Each once daily. albuterol (PROVENTIL) 2.5 mg /3 mL (0.083 %) nebulizer solution Use 3 mL via nebulizer every 4 hours as needed for wheezing/shortness of breath. Use over 5-15minutes. benzonatate (TESSALON PERLE) 100 mg capsule Take 1-2 capsules tid prn, no more than 6 in 24 hours. (Patient not taking: Reported on 04/11/2021 ) omeprazole (PRILOSEC) 40 mg capsule Take 1 capsule by mouth twice daily. Blood Pressure Monitor (BLOOD PRESSURE KIT) 1 Each once daily as needed. Dx: recurrent syncope R55 topiramate (TOPAMAX) 25 mg tablet Take 1 tablet by mouth daily at bedtime. rizatriptan (MAXALT) 10 mg tablet Take 1 tablet by mouth at onset of headache. May repeat after 1hr sodium chloride 1 gram tab Take 1 tablet by mouth three times daily. bacitracin zinc 500 unit/gram ointment nicotine (NICOTROL) 10 mg inhaler Inhale 2 Puffs as instructed as needed. apremilast (OTEZLA ORAL) Take 30 mg by mouth once daily. Aug Betamethasone Dipropionate (DIPROLENE) 0.05 % ointment apply to HANDS AT BEDTIME AND WEAR PLASTIC GLOVES OVERNIGHT tretinoin (RETIN-A) 0.025 % gel Apply 1 application to affected area daily at bedtime. DX: Psoriasis L40.9/ 696.1 ALPRAZolam (XANAX) 1 mg tablet Take 1 mg by mouth twice daily. QUEtiapine (SEROQUEL) 100 mg tablet Take 2 tablets by mouth daily at bedtime. No current facility-administered medications for this visit. Medications and allergies reviewed by this provider. SOCIAL HISTORY Social History Tobacco Use Smoking status: Former Smoker Packs/day: 1.00 Years: 30.00 Pack years: 30.00 Types: Cigarettes, Pipe Quit date: 06/02/2017 Years since quittin.1 Smokeless tobacco: Never Used Tobacco comment: vapes Vaping Use Vaping Use: Never used Substance Use Topics Alcohol use: No Drug use: No Comment: IV DRUG USER REVIEW OF SYSTEMS All other reviewed and negative other than HPI. OBJECTIVE: There were no vitals taken for this visit.. Vital signs reviewed by this provider. Pleasant sounding female. Able to answer al questions with difficulty COVID-19 VACCINE(1) Never done SPIROMETRY Never done SHINGRIX VACCINE(1 of 2) Never done MAMMOGRAM due on 04/10/2019 LUNG CANCER SCREENING due on 12/27/2020 ANNUAL PCP TEAM CHRONIC DISEASE VISIT due on 04/11/2022 DEPRESSION SCREENING due on 04/11/2022 PAP TESTING due on 01/15/2023 HPV TESTING due on 01/15/2023 DTAP,TDAP,TD(3 - Td or Tdap) due on 09/15/2023 DIABETES SCREEN due on 02/11/2024 LIPID SCREEN due on 12/15/2025 COLORECTAL CANCER SCREENING due on 09/30/2028 ONE PNEUMOVAX PRIOR TO AGE 65 Completed INFLUENZA Completed HEPATITIS C SCREENING Completed HIV SCREENING Completed MENINGOCOCCAL CONJUGATE Aged Out ASSESSMENT/PLAN: 1. Compression fracture of L1 vertebra with routine healing, subsequent encounter - ICD9: V54.17, ICD10: S32.010D (primary diagnosis) - discussed with patient she needs to call either Dr. Guzman's office or Dr. Leach's office to getscheduled for follow-up. I looked up phone numbers and gave to her - discussed any worsening pain, leg weakness, saddle anesthesia symptoms or urinary/bowel incontinence or inability go to ER, verbalizes understanding - follow-up as recommended 2. Acute constipation - ICD9: 564.00, ICD10: K59.00 - likely opoid induced - continue OTC medications - follow-up if persists 3. Closed head injury, subsequent encounter - ICD9: V58.89, 959.01, ICD10: S09.90XD - no red flag symptoms - red flag symptoms reviewed and discussed with patient is develops these needs to go to ER, verbalizes understanding Sheyla Palafox APRN.EDMUND Prescription instructions reviewed with patient as applicable. Patient advised if symptoms do not improve or if symptoms worsen sooner, to contact their primary care physician. Potential red flag symptoms discussed with the patient. Reviewed appropriate action plan to take if red flag symptoms occur. Patient agreeable to treatment plan. documented in this encounterSelect [facility] [place]04-12-2022 Miscellaneous Notes* Telephone Encounter - Lizbeth Pool MD - 07/25/2021 1:29 PM EDT Reviewed. * Telephone Encounter - Gabby Buitrago RN - 07/25/2021 10:31 AM EDT Patient calls in. Provider message given. Follow-up appointment scheduled for 08/01. Patient notified to follow-up with Dr. Guzman. Phone number and address given. Patient reports Dr. Sylvester at [facility] ED told her she would be having surgery this week with Dr. Guzman. Encouraged patient to call Dr. Guzman to discuss referral from ED. Patient verbalizes understanding. Gabby Buitrago RN * Telephone Encounter - Julia Arredondo LPN - 07/25/2021 10:18 AM EDT Phoned patient and message left for patient message to return call to discuss CT results and provider recommendations. documented in this encounterSelect [facility] [place]04-11-2022 Miscellaneous Notes* Telephone Encounter - Bernarda Terry LPN - 07/24/2021 8:53 AM EDT Call received from wireless cellular technician [facility] office stating patient was there and wondering of PCPreccomendations. Patient advised of providers response by wireless cellular technician. Bernarda Terry LPN * Telephone Encounter - Lizbeth Pool MD - 07/24/2021 8:34 AM EDT Agree with recommendation for immediate ER evaluation. I would not order further testing at this time. * Telephone Encounter - Avani Rayo RN - 07/24/2021 8:11 AM EDT Protocol Recommended: Call 911 now. Patient declines to have squad contacted and prefers to drive self to ER-she states she drove to [facility] this morning and that she will be able to make it to the ER. Reason for Disposition Dangerous mechanism of injury (e.g., MVA, contact sports, trampoline, diving, fall > 10 feet or 3 meters) (Exception: back pain began > 1 hour after injury) Answer Assessment - Initial Assessment Questions 1. MECHANISM: Patient reports this past 07/20 she was up on a ladder and fell 18-20 feet offof the ladder onto her back on a covered wood pile. She calls this morning to state she is at [facility] in waiting room awaiting a scheduled CT scan of her pancreas and is requesting Dr. Pool to order additional CT scan views of her back and pelvis, along with the ordered pancreas scan. This nurse explained patient needs evaluated immediately before further testing can be ordered. She reports she has 10 out of 10 back pain, blood in her urine that started Saturday night 07/21, has not slept at all since fall, has to use a walker to walk (which she states she does not normally use), severe pain sitting and lying, severe abdominal pain, and severe flank pain. Patient states she doubts she will be able to complete the scheduled CT scan today but was going to try. After triage phone assessment, this nurse instructed patient to go to ER now. 2. ONSET:as above 3. LOCATION: middle to lower 4. SEVERITY: States she can hardly walk or sit 5. PAIN: severe, as above 6. CORD SYMPTOMS: right leg fees tingly but states no pain to right leg 7. SIZE: Denies any open areas. Reports bruising to her back but unable to state location, color orsize due to difficult for her to see. Unsure if swelling. 8. TETANUS: Denies any breaks in skin 9. OTHER SYMPTOMS:as above 10. : n/a Protocols used: BACK [id number] documented in this encounter[facility] [place] Miscellaneous Notes* Telephone Encounter - Bita Christianson LPN - 07/19/2021 4:05 PM EDT PATIENT REQUESTING HER RX FOR CREON BE SENT TO [facility] IN [place]. IT WAS PREVIOUSLY SENT TO HER MAIL SERVICE, BUT THEY ONLY TAKE CARE OF HER INJECTIONS. LEFT MESSAGE FOR PATIENT THE RX WAS SENT TO [facility]. Bita Christianson LPN documented in this encounterSelect [facility] [place]03-30-2022 History of Present illness Narrative* Vonnie Esparza MD - 07/12/2021 10:07 PM EDT AMBULATORY TELEPHONE VISIT David Berg has consented to this telephone encounter. 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 She has a history of recurrent episodes of acute pancreatitis occurring several times a month. She has a history of steatorrhea, severe protein calorie malnutrition and weight loss. She underwent a cholecystectomy with me a few months ago. Recently she also had an ERCP with Dr. Vaz where she was found to have an ampullary stricture, verystrictured and tortuous pancreatic duct where he was only able to place a short pancreatic duct stent. Unfortunately after her ERCP she developed a contained duodenal perforation which needed to be managed nonoperatively. Following this, she underwent a PEG tube placement for nutritional supplementation however she did not tolerate it well and had it removed. She subsequently underwent a repeat ERCP with PD stenting which helped her for a few months. She states that the stent got dislodged spontaneously and recentlyshe has started to have recurrent episodes of abdominal pain, back pain. She also now complains of recurrent steatorrhea and weight loss. No h/o fevers/chills. No h/o change in urine color. Stools are flaky and float in the rosa. Data Reviewed: Most recent labs and imaging results. Most recent endoscopy Assessment: (K86.1) Idiopathic chronic pancreatitis (HCC) (primary encounter diagnosis) (K86.89) Pancreatic duct stricture (E43) Severe protein-calorie malnutrition (HCC) (K90.3) Steatorrhea, pancreatic (R63.4) Abnormal weight loss (R93.2) Abnormal findings on diagnostic imaging of liver and biliary tract (K86.89) Pancreatic duct dilated (Q45.3) Pancreas divisum (K80.20) Calculus of gallbladder without cholecystitis without obstruction Plan: Will consult Dr. Del Castillo Friend for repeat ERCP, and PD stenting. Will obtain a CT of the abdomen pelvis as well to re-evaluate her for intra- abdominal pathologies. She stated that she would like to hold off on any surgical interventions for as long as possible. Total Time Spent: 30 minutes Vonnie Esparza MD documented in this encounterSelect [facility] [place]03-30-2022 Instructions* Patient Instructions* Vonnie Esparza MD - 07/12/2021 1:56 PM EDT My office will call you with scheduling and details about your next appointments and tests. documented in this encounterSelect [facility] [place]02-21-2022 Miscellaneous Notes* Telephone Encounter - Avani Rayo RN - 06/05/2021 11:33 AM EST Patient has been identified by name and date of : Yes Patient phones for refill(s): Pending Prescriptions Disp Refills ROPINIROLE 1 MG TABLET 30 tablet Sig: Take 1 tablet by mouth daily at bedtime. ADAIR: No Date of last office visit in primary care: 04/11/21, next appt: 10/10/21 Last 2 Encounter Wt Readings: Date: Wt: 04/11/2021 58.5 kg (129 lb) 03/17/2021 59.4 kg (131 lb) Please advise. Thank you. Avani Rayo RN documented in this encounterSelect [facility] [place]12-03-2021 History of Present illness Narrative* Shania Garcia RT(R) - 03/17/2021 4:30 PM EST Radiology Service Progress Note PATIENT NAME: David Berg DATE OF SERVICE: March 17, 2021 TIME: 4:23 PM PATIENT IDENTITY VERIFICATION COMPLETED USING TWO (2) IDENTIFIERS: Name and Date of confirmedby patient verbally. FALL SCREENING: Has the patient had 2 falls in the last year or 1 fall with injury or currently using an Ambulatory Assistive Device (Walker, Cane, Wheelchair, Crutches, etc.)? No PATIENT GENDER DATA: Female. status: : No status: NO. PATIENT RELEVANT IMPLANT DATA REVIEWED: Not Applicable RADIOLOGY DEPARTMENT: General X-ray: Exam(s) Completed: Chest X-Ray PERIPHERAL IV DATA: Not applicable SIGNED BY: RT Le(R) March 17, 2021 4:23 PM documented in this encounterSelect [facility] [place]10-21-2021 History of Present illness Narrative* Gladys Murillo RT(R) - 02/02/2021 3:30 PM EDT Radiology Service Progress Note PATIENT NAME: David Berg DATE OF SERVICE: February 02, 2021 TIME: 3:31 PM PATIENT IDENTITY VERIFICATION COMPLETED USING TWO (2) IDENTIFIERS: Name and Date of confirmedby patient verbally. FALL SCREENING: Has the patient had 2 falls in the last year or 1 fall with injury or currently using an Ambulatory Assistive Device (Walker, Cane, Wheelchair, Crutches, etc.)? No PATIENT GENDER DATA: Female. status: : No status: NO. PATIENT RELEVANT IMPLANT DATA REVIEWED: Yes RADIOLOGY DEPARTMENT: General X-ray: Exam(s) Completed: Chest X-Ray PERIPHERAL IV DATA: Not applicable SIGNED BY: RT Celia(R) February 02, 2021 3:31 PM documented in this encounterSelect [facility] [place]09-10-2021 History of Present illness Narrative* Gladys Murillo RT(R) - 12/23/2020 12:30 PM EDT Radiology Service Progress Note PATIENT NAME: David Berg DATE OF SERVICE: December 23, 2020 TIME: 12:36 PM PATIENT IDENTITY VERIFICATION COMPLETED USING TWO (2) IDENTIFIERS: Name and Date of confirmedby patient verbally. FALL SCREENING: Has the patient had 2 falls in the last year or 1 fall with injury or currently using an Ambulatory Assistive Device (Walker, Cane, Wheelchair, Crutches, etc.)? No PATIENT GENDER DATA: Female. status: : No status: NO. PATIENT RELEVANT IMPLANT DATA REVIEWED: Yes RADIOLOGY DEPARTMENT: General X-ray: Exam(s) Completed: Skull X-Ray Nasal bones PERIPHERAL IV DATA: Not applicable SIGNED BY: RT Celia(R) December 23, 2020 12:36 PM documented in this encounterSelect [facility] [place]03-14-2016 History of Past illness Narrative* Problem Noted Date Resolved Date Chronic pain syndrome 06/27/2015 06/01/2016 Encounter for long-term (current) use of medicat ions 11/15/2014 06/01/2016 Lumbago 09/02/2014 06/01/2016 Cataract of both eyes 10/26/2013 06/01/2016 Overview: [facility] 10/22/2013 - Combined forms of age-related cataract of both eyes Eating disorder 02/16/2013 06/01/2016 Cervical strain 01/22/2013 06/01/2016 Cervical disc disease 01/22/2013 06/01/2016 Xerosis cutis 09/07/2012 06/01/2016 Arthritis of left knee 02/15/2012 7 Leg ulcer, left 02/15/2012 06/01/2016 Closed fracture of lateral malleolus 11/23/2011 06/01/2016 Contusion of toe 11/23/2011 06/01/2016 Capsulitis 11/06/2011 06/01/2016 Pruritus of forearm 09/07/2011 06/01/2016 Pruritus - disorder 09/07/2011 06/01/2016 Eczematous dermatitis 09/07/2011 06/01/2016 Lichenoid dermatitis 09/07/2011 06/01/2016 Excoriation 09/07/2011 06/01/2016 Nasal septal deviation 08/29/2011 7 Orbital mass 07/15/2011 06/01/2016 Obesity 05/09/2011 01/14/2014 Last Assessment & Plan: Pt disappointed in the amount of weight loss she has had over the past month while on the prescription Adipex 37.5mg daily. States she eats oatmeal in the morning every other day and at night has 1/3 of a bag of kettlecorn popcorn. States she does not eat anything else throughout the day. Ms Berg states since she was in her 20's she would control her wt loss by forcing herself to vomit after eating so she could eat more. Denies having an eating disorder and denies recent forced vomiting. Denies any current exercise routine and states she does not like to exercise. Her goal wt is 115. States she has a good appetite but limits her intake. She says she has a bad sweet tooth especially for chocolate. Cervical vertebral fracture 05/07/201105/16 Muscle spasms of head or neck 08/26/2009 Pain in joint, pelvic region and thigh 0 06/01/2016 Other chronic cystitis 12/21/2008 7 Hypertonicity of bladder 12/21/2008 017 PLANTAR Fasciitis 08/14/2006 06/01/2016 Sprain of neck 04/17/2006 06/01/2016 Rheumatoid arthritis 03/18/2006 06/01/2016 CHOLELITHIASIS SEE ALSO GALL BLADD WITHOUT CHOLECYSTITIS( Without obstruction) 01/11/2006 06/01/2016 EPIGASTRIC PAIN 01/11/2006 06/01/2016 HEPATITIS C CARRIER--treated with IFN and ribavirin and is in remission (as of 05/21) 05/29/2005 06/01/2016 Conductive hearing loss of combined types 200506/01/2016 Migraine variant 05/29/2005 06/01/2016 CHRONIC BRONCHITIS NOS--related to smoking 05/2906/01/2016 OSTEOARTHROS NOS-OTHER SITE- -OA vs RA treated with NSAIDs in past. 05/29/2005 06/01/2016 Overview: actonel 2009 start from hx in EPIC, fosamax 2011 started Cleft lip, unspecified 01/24/2005 7 documented as of this encounter (statuses as of 07/13/2021) [facility] [place] History of Past illness Narrative* Problem Noted Date Resolved Date Chronic pain syndrome 06/27/2015 06/01/2016 Encounter for long-term (current) use of medicat ions 11/15/2014 06/01/2016 Lumbago 09/02/2014 06/01/2016 Cataract of both eyes 10/26/2013 06/01/2016 Overview: [facility] 10/22/2013 - Combined forms of age-related cataract of both eyes Eating disorder 02/16/2013 06/01/2016 Cervical strain 01/22/2013 06/01/2016 Cervical disc disease 01/22/2013 06/01/2016 Xerosis cutis 09/07/2012 06/01/2016 Arthritis of left knee 02/15/2012 7 Leg ulcer, left 02/15/2012 06/01/2016 Closed fracture of lateral malleolus 11/23/2011 06/01/2016 Contusion of toe 11/23/2011 06/01/2016 Capsulitis 11/06/2011 06/01/2016 Pruritus of forearm 09/07/2011 06/01/2016 Pruritus - disorder 09/07/2011 06/01/2016 Eczematous dermatitis 09/07/2011 06/01/2016 Lichenoid dermatitis 09/07/2011 06/01/2016 Excoriation 09/07/2011 06/01/2016 Nasal septal deviation 08/29/2011 7 Orbital mass 07/15/2011 06/01/2016 Obesity 05/09/2011 01/14/2014 Last Assessment & Plan: Pt disappointed in the amount of weight loss she has had over the past month while on the prescription Adipex 37.5mg daily. States she eats oatmeal in the morning every other day and at night has 1/3 of a bag of kettlecorn popcorn. States she does not eat anything else throughout the day. Ms Berg states since she was in her 20's she would control her wt loss by forcing herself to vomit after eating so she could eat more. Denies having an eating disorder and denies recent forced vomiting. Denies any current exercise routine and states she does not like to exercise. Her goal wt is 115. States she has a good appetite but limits her intake. She says she has a bad sweet tooth especially for chocolate. Cervical vertebral fracture 05/07/201105/16 Muscle spasms of head or neck 08/26/2009 Pain in joint, pelvic region and thigh 0 06/01/2016 Other chronic cystitis 12/21/2008 7 Hypertonicity of bladder 12/21/2008 017 PLANTAR Fasciitis 08/14/2006 06/01/2016 Sprain of neck 04/17/2006 06/01/2016 Rheumatoid arthritis 03/18/2006 06/01/2016 CHOLELITHIASIS SEE ALSO GALL BLADD WITHOUT CHOLECYSTITIS( Without obstruction) 01/11/2006 06/01/2016 EPIGASTRIC PAIN 01/11/2006 06/01/2016 HEPATITIS C CARRIER--treated with IFN and ribavirin and is in remission (as of 05/21) 05/29/2005 06/01/2016 Conductive hearing loss of combined types 200506/01/2016 Migraine variant 05/29/2005 06/01/2016 CHRONIC BRONCHITIS NOS--related to smoking 05/2906/01/2016 OSTEOARTHROS NOS-OTHER SITE- -OA vs RA treated with NSAIDs in past. 05/29/2005 06/01/2016 Overview: actonel 2010 start from hx in EPIC, fosamax 2011 started Cleft lip, unspecified 01/24/2005 7 documented as of this encounter (statuses as of 07/19/2021) [facility] [place] of Past illness Narrative* Problem Noted Date Resolved Date Chronic pain syndrome 06/27/2015 06/01/2016 Encounter for long-term (current) use of medicat ions 11/15/2014 06/01/2016 Lumbago 09/02/2014 06/01/2016 Cataract of both eyes 10/26/2013 06/01/2016 Overview: [facility] 10/22/2013 - Combined forms of age-related cataract of both eyes Eating disorder 02/16/2013 06/01/2016 Cervical strain 01/22/2013 06/01/2016 Cervical disc disease 01/22/2013 06/01/2016 Xerosis cutis 09/07/2012 06/01/2016 Arthritis of left knee 02/15/2012 7 Leg ulcer, left 02/15/2012 06/01/2016 Closed fracture of lateral malleolus 11/23/2011 06/01/2016 Contusion of toe 11/23/2011 06/01/2016 Capsulitis 11/06/2011 06/01/2016 Pruritus of forearm 09/07/2011 06/01/2016 Pruritus - disorder 09/07/2011 06/01/2016 Eczematous dermatitis 09/07/2011 06/01/2016 Lichenoid dermatitis 09/07/2011 06/01/2016 Excoriation 09/07/2011 06/01/2016 Nasal septal deviation 08/29/2011 7 Orbital mass 07/15/2011 06/01/2016 Obesity 05/09/2011 01/14/2014 Last Assessment & Plan: Pt disappointed in the amount of weight loss she has had over the past month while on the prescription Adipex 37.5mg daily. States she eats oatmeal in the morning every other day and at night has 1/3 of a bag of kettlecorn popcorn. States she does not eat anything else throughout the day. Ms Berg states since she was in her 20's she would control her wt loss by forcing herself to vomit after eating so she could eat more. Denies having an eating disorder and denies recent forced vomiting. Denies any current exercise routine and states she does not like to exercise. Her goal wt is 115. States she has a good appetite but limits her intake. She says she has a bad sweet tooth especially for chocolate. Cervical vertebral fracture 05/07/201105/16 Muscle spasms of head or neck 08/26/2009 Pain in joint, pelvic region and thigh 0 06/01/2016 Other chronic cystitis 12/21/2008 7 Hypertonicity of bladder 12/21/2008 017 PLANTAR Fasciitis 08/14/2006 06/01/2016 Sprain of neck 04/17/2006 06/01/2016 Rheumatoid arthritis 03/18/2006 06/01/2016 CHOLELITHIASIS SEE ALSO GALL BLADD WITHOUT CHOLECYSTITIS( Without obstruction) 01/11/2006 06/01/2016 EPIGASTRIC PAIN 01/11/2006 06/01/2016 HEPATITIS C CARRIER--treated with IFN and ribavirin and is in remission (as of 05/21) 05/29/2005 06/01/2016 Conductive hearing loss of combined types 200506/01/2016 Migraine variant 05/29/2005 06/01/2016 CHRONIC BRONCHITIS NOS--related to smoking 05/2906/01/2016 OSTEOARTHROS NOS-OTHER SITE- -OA vs RA treated with NSAIDs in past. 05/29/2005 06/01/2016 Overview: actonel 2009 start from hx in EPIC, fosamax 2011 started Cleft lip, unspecified 01/24/2005 7 documented as of this encounter (statuses as of 07/24/2021) [facility] [place] of Past illness Narrative* Problem Noted Date Resolved Date Chronic pain syndrome 06/27/2015 06/01/2016 Encounter for long-term (current) use of medicat ions 11/15/2014 06/01/2016 Lumbago 09/02/2014 06/01/2016 Cataract of both eyes 10/26/2013 06/01/2016 Overview: [facility] 10/22/2013 - Combined forms of age-related cataract of both eyes Eating disorder 02/16/2013 06/01/2016 Cervical strain 01/22/2013 06/01/2016 Cervical disc disease 01/22/2013 06/01/2016 Xerosis cutis 09/07/2012 06/01/2016 Arthritis of left knee 02/15/2012 7 Leg ulcer, left 02/15/2012 06/01/2016 Closed fracture of lateral malleolus 11/23/2011 06/01/2016 Contusion of toe 11/23/2011 06/01/2016 Capsulitis 11/06/2011 06/01/2016 Pruritus of forearm 09/07/2011 06/01/2016 Pruritus - disorder 09/07/2011 06/01/2016 Eczematous dermatitis 09/07/2011 06/01/2016 Lichenoid dermatitis 09/07/2011 06/01/2016 Excoriation 09/07/2011 06/01/2016 Nasal septal deviation 08/29/2011 7 Orbital mass 07/15/2011 06/01/2016 Obesity 05/09/2011 01/14/2014 Last Assessment & Plan: Pt disappointed in the amount of weight loss she has had over the past month while on the prescription Adipex 37.5mg daily. States she eats oatmeal in the morning every other day and at night has 1/3 of a bag of kettlecorn popcorn. States she does not eat anything else throughout the day. Ms Berg states since she was in her 20's she would control her wt loss by forcing herself to vomit after eating so she could eat more. Denies having an eating disorder and denies recent forced vomiting. Denies any current exercise routine and states she does not like to exercise. Her goal wt is 115. States she has a good appetite but limits her intake. She says she has a bad sweet tooth especially for chocolate. Cervical vertebral fracture 05/07/201105/16 Muscle spasms of head or neck 08/26/2009 Pain in joint, pelvic region and thigh 0 06/01/2016 Other chronic cystitis 12/21/2008 7 Hypertonicity of bladder 12/21/2008 017 PLANTAR Fasciitis 08/14/2006 06/01/2016 Sprain of neck 04/17/2006 06/01/2016 Rheumatoid arthritis 03/18/2006 06/01/2016 CHOLELITHIASIS SEE ALSO GALL BLADD WITHOUT CHOLECYSTITIS( Without obstruction) 01/11/2006 06/01/2016 EPIGASTRIC PAIN 01/11/2006 06/01/2016 HEPATITIS C CARRIER--treated with IFN and ribavirin and is in remission (as of 05/21) 05/29/2005 06/01/2016 Conductive hearing loss of combined types 200506/01/2016 Migraine variant 05/29/2005 06/01/2016 CHRONIC BRONCHITIS NOS--related to smoking 05/2906/01/2016 OSTEOARTHROS NOS-OTHER SITE- -OA vs RA treated with NSAIDs in past. 05/29/2005 06/01/2016 Overview: actonel 2009 start from hx in EPIC, fosamax 2011 started Cleft lip, unspecified 01/24/2005 7 documented as of this encounter (statuses as of 07/25/2021) [facility] of Past illness Narrative* Problem Noted Date Resolved Date Chronic pain syndrome 06/27/2015 06/01/2016 Encounter for long-term (current) use of medicat ions 11/15/2014 06/01/2016 Lumbago 09/02/2014 06/01/2016 Cataract of both eyes 10/26/2013 06/01/2016 Overview: [facility] 10/22/2013 - Combined forms of age-related cataract of both eyes Eating disorder 02/16/2013 06/01/2016 Cervical strain 01/22/2013 06/01/2016 Cervical disc disease 01/22/2013 06/01/2016 Xerosis cutis 09/07/2012 06/01/2016 Arthritis of left knee 02/15/2012 7 Leg ulcer, left 02/15/2012 06/01/2016 Closed fracture of lateral malleolus 11/23/2011 06/01/2016 Contusion of toe 11/23/2011 06/01/2016 Capsulitis 11/06/2011 06/01/2016 Pruritus of forearm 09/07/2011 06/01/2016 Pruritus - disorder 09/07/2011 06/01/2016 Eczematous dermatitis 09/07/2011 06/01/2016 Lichenoid dermatitis 09/07/2011 06/01/2016 Excoriation 09/07/2011 06/01/2016 Nasal septal deviation 08/29/2011 7 Orbital mass 07/15/2011 06/01/2016 Obesity 05/09/2011 01/14/2014 Last Assessment & Plan: Pt disappointed in the amount of weight loss she has had over the past month while on the prescription Adipex 37.5mg daily. States she eats oatmeal in the morning every other day and at night has 1/3 of a bag of kettlecorn popcorn. States she does not eat anything else throughout the day. Ms Berg states since she was in her 20's she would control her wt loss by forcing herself to vomit after eating so she could eat more. Denies having an eating disorder and denies recent forced vomiting. Denies any current exercise routine and states she does not like to exercise. Her goal wt is 115. States she has a good appetite but limits her intake. She says she has a bad sweet tooth especially for chocolate. Cervical vertebral fracture 05/07/201105/16 Muscle spasms of head or neck 08/26/2009 Pain in joint, pelvic region and thigh 0 06/01/2016 Other chronic cystitis 12/21/2008 7 Hypertonicity of bladder 12/21/2008 017 PLANTAR Fasciitis 08/14/2006 06/01/2016 Sprain of neck 04/17/2006 06/01/2016 Rheumatoid arthritis 03/18/2006 06/01/2016 CHOLELITHIASIS SEE ALSO GALL BLADD WITHOUT CHOLECYSTITIS( Without obstruction) 01/11/2006 06/01/2016 EPIGASTRIC PAIN 01/11/2006 06/01/2016 HEPATITIS C CARRIER--treated with IFN and ribavirin and is in remission (as of 05/21) 05/29/2005 06/01/2016 Conductive hearing loss of combined types 200506/01/2016 Migraine variant 05/29/2005 06/01/2016 CHRONIC BRONCHITIS NOS--related to smoking 05/2906/01/2016 OSTEOARTHROS NOS-OTHER SITE- -OA vs RA treated with NSAIDs in past. 05/29/2005 06/01/2016 Overview: actonel 2010 start from hx in EPIC, fosamax 2011 started Cleft lip, unspecified 01/24/2005 7 documented as of this encounter (statuses as of 07/25/2021) [facility] of Past illness Narrative* Problem Noted Date Resolved Date Chronic pain syndrome 06/27/2015 06/01/2016 Encounter for long-term (current) use of medicat ions 11/15/2014 06/01/2016 Lumbago 09/02/2014 06/01/2016 Cataract of both eyes 10/26/2013 06/01/2016 Overview: [facility] 10/22/2013 - Combined forms of age-related cataract of both eyes Eating disorder 02/16/2013 06/01/2016 Cervical strain 01/22/2013 06/01/2016 Cervical disc disease 01/22/2013 06/01/2016 Xerosis cutis 09/07/2012 06/01/2016 Arthritis of left knee 02/15/2012 7 Leg ulcer, left 02/15/2012 06/01/2016 Closed fracture of lateral malleolus 11/23/2011 06/01/2016 Contusion of toe 11/23/2011 06/01/2016 Capsulitis 11/06/2011 06/01/2016 Pruritus of forearm 09/07/2011 06/01/2016 Pruritus - disorder 09/07/2011 06/01/2016 Eczematous dermatitis 09/07/2011 06/01/2016 Lichenoid dermatitis 09/07/2011 06/01/2016 Excoriation 09/07/2011 06/01/2016 Nasal septal deviation 08/29/2011 7 Orbital mass 07/15/2011 06/01/2016 Obesity 05/09/2011 01/14/2014 Last Assessment & Plan: Pt disappointed in the amount of weight loss she has had over the past month while on the prescription Adipex 37.5mg daily. States she eats oatmeal in the morning every other day and at night has 1/3 of a bag of kettlecorn popcorn. States she does not eat anything else throughout the day. Ms Berg states since she was in her 20's she would control her wt loss by forcing herself to vomit after eating so she could eat more. Denies having an eating disorder and denies recent forced vomiting. Denies any current exercise routine and states she does not like to exercise. Her goal wt is 115. States she has a good appetite but limits her intake. She says she has a bad sweet tooth especially for chocolate. Cervical vertebral fracture 05/07/201105/16 Muscle spasms of head or neck 08/26/2009 Pain in joint, pelvic region and thigh 0 06/01/2016 Other chronic cystitis 12/21/2008 7 Hypertonicity of bladder 12/21/2008 017 PLANTAR Fasciitis 08/14/2006 06/01/2016 Sprain of neck 04/17/2006 06/01/2016 Rheumatoid arthritis 03/18/2006 06/01/2016 CHOLELITHIASIS SEE ALSO GALL BLADD WITHOUT CHOLECYSTITIS( Without obstruction) 01/11/2006 06/01/2016 EPIGASTRIC PAIN 01/11/2006 06/01/2016 HEPATITIS C CARRIER--treated with IFN and ribavirin and is in remission (as of 05/21) 05/29/2005 06/01/2016 Conductive hearing loss of combined types 200506/01/2016 Migraine variant 05/29/2005 06/01/2016 CHRONIC BRONCHITIS NOS--related to smoking 05/2906/01/2016 OSTEOARTHROS NOS-OTHER SITE- -OA vs RA treated with NSAIDs in past. 05/29/2005 06/01/2016 Overview: actonel 2009 start from hx in EPIC, fosamax 2011 started Cleft lip, unspecified 01/24/2005 7 documented as of this encounter (statuses as of 08/02/2021) [facility] [place]-14-2016 History of Past illness Narrative* Problem Noted Date Resolved Date Chronic pain syndrome 06/27/2015 06/01/2016 Encounter for long-term (current) use of medicat ions 11/15/2014 06/01/2016 Lumbago 09/02/2014 06/01/2016 Cataract of both eyes 10/26/2013 06/01/2016 Overview: [facility] 10/22/2013 - Combined forms of age-related cataract of both eyes Eating disorder 02/16/2013 06/01/2016 Cervical strain 01/22/2013 06/01/2016 Cervical disc disease 01/22/2013 06/01/2016 Xerosis cutis 09/07/2012 06/01/2016 Arthritis of left knee 02/15/2012 7 Leg ulcer, left 02/15/2012 06/01/2016 Closed fracture of lateral malleolus 11/23/2011 06/01/2016 Contusion of toe 11/23/2011 06/01/2016 Capsulitis 11/06/2011 06/01/2016 Pruritus of forearm 09/07/2011 06/01/2016 Pruritus - disorder 09/07/2011 06/01/2016 Eczematous dermatitis 09/07/2011 06/01/2016 Lichenoid dermatitis 09/07/2011 06/01/2016 Excoriation 09/07/2011 06/01/2016 Nasal septal deviation 08/29/2011 7 Orbital mass 07/15/2011 06/01/2016 Obesity 05/09/2011 01/14/2014 Last Assessment & Plan: Pt disappointed in the amount of weight loss she has had over the past month while on the prescription Adipex 37.5mg daily. States she eats oatmeal in the morning every other day and at night has 1/3 of a bag of kettlecorn popcorn. States she does not eat anything else throughout the day. Ms Berg states since she was in her 20's she would control her wt loss by forcing herself to vomit after eating so she could eat more. Denies having an eating disorder and denies recent forced vomiting. Denies any current exercise routine and states she does not like to exercise. Her goal wt is 115. States she has a good appetite but limits her intake. She says she has a bad sweet tooth especially for chocolate. Cervical vertebral fracture 05/07/201105/16 Muscle spasms of head or neck 08/26/2009 Pain in joint, pelvic region and thigh 0 06/01/2016 Other chronic cystitis 12/21/2008 7 Hypertonicity of bladder 12/21/2008 017 PLANTAR Fasciitis 08/14/2006 06/01/2016 Sprain of neck 04/17/2006 06/01/2016 Rheumatoid arthritis 03/18/2006 06/01/2016 CHOLELITHIASIS SEE ALSO GALL BLADD WITHOUT CHOLECYSTITIS( Without obstruction) 01/11/2006 06/01/2016 EPIGASTRIC PAIN 01/11/2006 06/01/2016 HEPATITIS C CARRIER--treated with IFN and ribavirin and is in remission (as of 05/21) 05/29/2005 06/01/2016 Conductive hearing loss of combined types 200506/01/2016 Migraine variant 05/29/2005 06/01/2016 CHRONIC BRONCHITIS NOS--related to smoking 05/2906/01/2016 OSTEOARTHROS NOS-OTHER SITE- -OA vs RA treated with NSAIDs in past. 05/29/2005 06/01/2016 Overview: actonel 2009 start from hx in EP[facility], fosamax 2011 started Cleft lip, unspecified 01/24/2005 7 documented as of this encounter (statuses as of 08/21/2021) [facility] [place]2016 History of Past illness Narrative* Problem Noted Date Resolved Date Chronic pain syndrome 06/27/2015 06/01/2016 Encounter for long-term (current) use of medicat ions 11/15/2014 06/01/2016 Lumbago 09/02/2014 06/01/2016 Cataract of both eyes 10/26/2013 06/01/2016 Overview: [facility] 10/22/2013 - Combined forms of age-related cataract of both eyes Eating disorder 02/16/2013 06/01/2016 Cervical strain 01/22/2013 06/01/2016 Cervical disc disease 01/22/2013 06/01/2016 Xerosis cutis 09/07/2012 06/01/2016 Arthritis of left knee 02/15/2012 7 Leg ulcer, left 02/15/2012 06/01/2016 Closed fracture of lateral malleolus 11/23/2011 06/01/2016 Contusion of toe 11/23/2011 06/01/2016 Capsulitis 11/06/2011 06/01/2016 Pruritus of forearm 09/07/2011 06/01/2016 Pruritus - disorder 09/07/2011 06/01/2016 Eczematous dermatitis 09/07/2011 06/01/2016 Lichenoid dermatitis 09/07/2011 06/01/2016 Excoriation 09/07/2011 06/01/2016 Nasal septal deviation 08/29/2011 7 Orbital mass 07/15/2011 06/01/2016 Obesity 05/09/2011 01/14/2014 Last Assessment & Plan: Pt disappointed in the amount of weight loss she has had over the past month while on the prescription Adipex 37.5mg daily. States she eats oatmeal in the morning every other day and at night has 1/3 of a bag of kettlecorn popcorn. States she does not eat anything else throughout the day. Ms Berg states since she was in her 20's she would control her wt loss by forcing herself to vomit after eating so she could eat more. Denies having an eating disorder and denies recent forced vomiting. Denies any current exercise routine and states she does not like to exercise. Her goal wt is 115. States she has a good appetite but limits her intake. She says she has a bad sweet tooth especially for chocolate. Cervical vertebral fracture 05/07/201105/16 Muscle spasms of head or neck 08/26/2009 Pain in joint, pelvic region and thigh 0 06/01/2016 Other chronic cystitis 12/21/2008 7 Hypertonicity of bladder 12/21/2008 017 PLANTAR Fasciitis 08/14/2006 06/01/2016 Sprain of neck 04/17/2006 06/01/2016 Rheumatoid arthritis 03/18/2006 06/01/2016 CHOLELITHIASIS SEE ALSO GALL BLADD WITHOUT CHOLECYSTITIS( Without obstruction) 01/11/2006 06/01/2016 EPIGASTRIC PAIN 01/11/2006 06/01/2016 HEPATITIS C CARRIER--treated with IFN and ribavirin and is in remission (as of 05/21) 05/29/2005 06/01/2016 Conductive hearing loss of combined types 200506/01/2016 Migraine variant 05/29/2005 06/01/2016 CHRONIC BRONCHITIS NOS--related to smoking 05/2906/01/2016 OSTEOARTHROS NOS-OTHER SITE- -OA vs RA treated with NSAIDs in past. 05/29/2005 06/01/2016 Overview: actonel 2009 start from hx in EPIC, fosamax 2011 started Cleft lip, unspecified 01/24/2005 7 documented as of this encounter (statuses as of 08/25/2021) [facility] [place]2016 History of Past illness Narrative* Problem Noted Date Resolved Date Chronic pain syndrome 06/27/2015 06/01/2016 Encounter for long-term (current) use of medicat ions 11/15/2014 06/01/2016 Lumbago 09/02/2014 06/01/2016 Cataract of both eyes 10/26/2013 06/01/2016 Overview: [facility] 10/22/2013 - Combined forms of age-related cataract of both eyes Eating disorder 02/16/2013 06/01/2016 Cervical strain 01/22/2013 06/01/2016 Cervical disc disease 01/22/2013 06/01/2016 Xerosis cutis 09/07/2012 06/01/2016 Arthritis of left knee 02/15/2012 7 Leg ulcer, left 02/15/2012 06/01/2016 Closed fracture of lateral malleolus 11/23/2011 06/01/2016 Contusion of toe 11/23/2011 06/01/2016 Capsulitis 11/06/2011 06/01/2016 Pruritus of forearm 09/07/2011 06/01/2016 Pruritus - disorder 09/07/2011 06/01/2016 Eczematous dermatitis 09/07/2011 06/01/2016 Lichenoid dermatitis 09/07/2011 06/01/2016 Excoriation 09/07/2011 06/01/2016 Nasal septal deviation 08/29/2011 7 Orbital mass 07/15/2011 06/01/2016 Obesity 05/09/2011 01/14/2014 Last Assessment & Plan: Pt disappointed in the amount of weight loss she has had over the past month while on the prescription Adipex 37.5mg daily. States she eats oatmeal in the morning every other day and at night has 1/3 of a bag of kettlecorn popcorn. States she does not eat anything else throughout the day. Ms Berg states since she was in her 20's she would control her wt loss by forcing herself to vomit after eating so she could eat more. Denies having an eating disorder and denies recent forced vomiting. Denies any current exercise routine and states she does not like to exercise. Her goal wt is 115. States she has a good appetite but limits her intake. She says she has a bad sweet tooth especially for chocolate. Cervical vertebral fracture 05/07/201105/16 Muscle spasms of head or neck 08/26/2009 Pain in joint, pelvic region and thigh 0 06/01/2016 Other chronic cystitis 12/21/2008 7 Hypertonicity of bladder 12/21/2008 017 PLANTAR Fasciitis 08/14/2006 06/01/2016 Sprain of neck 04/17/2006 06/01/2016 Rheumatoid arthritis 03/18/2006 06/01/2016 CHOLELITHIASIS SEE ALSO GALL BLADD WITHOUT CHOLECYSTITIS( Without obstruction) 01/11/2006 06/01/2016 EPIGASTRIC PAIN 01/11/2006 06/01/2016 HEPATITIS C CARRIER--treated with IFN and ribavirin and is in remission (as of 05/21) 05/29/2005 06/01/2016 Conductive hearing loss of combined types 200506/01/2016 Migraine variant 05/29/2005 06/01/2016 CHRONIC BRONCHITIS NOS--related to smoking 05/2906/01/2016 OSTEOARTHROS NOS-OTHER SITE- -OA vs RA treated with NSAIDs in past. 05/29/2005 06/01/2016 Overview: actonel 2009 start from hx in EPIC, fosamax 2011 started Cleft lip, unspecified 01/24/2005 7 documented as of this encounter (statuses as of 09/15/2021) [facility] [place]2016 History of Past illness Narrative* Problem Noted Date Resolved Date Chronic pain syndrome 06/27/2015 06/01/2016 Encounter for long-term (current) use of medicat ions 11/15/2014 06/01/2016 Lumbago 09/02/2014 06/01/2016 Cataract of both eyes 10/26/2013 06/01/2016 Overview: [facility] 10/22/2013 - Combined forms of age-related cataract of both eyes Eating disorder 02/16/2013 06/01/2016 Cervical strain 01/22/2013 06/01/2016 Cervical disc disease 01/22/2013 06/01/2016 Xerosis cutis 09/07/2012 06/01/2016 Arthritis of left knee 02/15/2012 7 Leg ulcer, left 02/15/2012 06/01/2016 Closed fracture of lateral malleolus 11/23/2011 06/01/2016 Contusion of toe 11/23/2011 06/01/2016 Capsulitis 11/06/2011 06/01/2016 Pruritus of forearm 09/07/2011 06/01/2016 Pruritus - disorder 09/07/2011 06/01/2016 Eczematous dermatitis 09/07/2011 06/01/2016 Lichenoid dermatitis 09/07/2011 06/01/2016 Excoriation 09/07/2011 06/01/2016 Nasal septal deviation 08/29/2011 7 Orbital mass 07/15/2011 06/01/2016 Obesity 05/09/2011 01/14/2014 Last Assessment & Plan: Pt disappointed in the amount of weight loss she has had over the past month while on the prescription Adipex 37.5mg daily. States she eats oatmeal in the morning every other day and at night has 1/3 of a bag of kettlecorn popcorn. States she does not eat anything else throughout the day. Ms Berg states since she was in her 20's she would control her wt loss by forcing herself to vomit after eating so she could eat more. Denies having an eating disorder and denies recent forced vomiting. Denies any current exercise routine and states she does not like to exercise. Her goal wt is 115. States she has a good appetite but limits her intake. She says she has a bad sweet tooth especially for chocolate. Cervical vertebral fracture 05/07/201105/16 Muscle spasms of head or neck 08/26/2009 Pain in joint, pelvic region and thigh 0 06/01/2016 Other chronic cystitis 12/21/2008 7 Hypertonicity of bladder 12/21/2008 017 PLANTAR Fasciitis 08/14/2006 06/01/2016 Sprain of neck 04/17/2006 06/01/2016 Rheumatoid arthritis 03/18/2006 06/01/2016 CHOLELITHIASIS SEE ALSO GALL BLADD WITHOUT CHOLECYSTITIS( Without obstruction) 01/11/2006 06/01/2016 EPIGASTRIC PAIN 01/11/2006 06/01/2016 HEPATITIS C CARRIER--treated with IFN and ribavirin and is in remission (as of 05/21) 05/29/2005 06/01/2016 Conductive hearing loss of combined types 200506/01/2016 Migraine variant 05/29/2005 06/01/2016 CHRONIC BRONCHITIS NOS--related to smoking 05/2906/01/2016 OSTEOARTHROS NOS-OTHER SITE- -OA vs RA treated with NSAIDs in past. 05/29/2005 06/01/2016 Overview: actonel 2009 start from hx in EPIC, fosamax 2011 started Cleft lip, unspecified 01/24/2005 7 documented as of this encounter (statuses as of 09/16/2021) [facility] [place]2016 History of Past illness Narrative* Problem Noted Date Resolved Date Chronic pain syndrome 06/27/2015 06/01/2016 Encounter for long-term (current) use of medicat ions 11/15/2014 06/01/2016 Lumbago 09/02/2014 06/01/2016 Cataract of both eyes 10/26/2013 06/01/2016 Overview: [facility] 10/22/2013 - Combined forms of age-related cataract of both eyes Eating disorder 02/16/2013 06/01/2016 Cervical strain 01/22/2013 06/01/2016 Cervical disc disease 01/22/2013 06/01/2016 Xerosis cutis 09/07/2012 06/01/2016 Arthritis of left knee 02/15/2012 7 Leg ulcer, left 02/15/2012 06/01/2016 Closed fracture of lateral malleolus 11/23/2011 06/01/2016 Contusion of toe 11/23/2011 06/01/2016 Capsulitis 11/06/2011 06/01/2016 Pruritus of forearm 09/07/2011 06/01/2016 Pruritus - disorder 09/07/2011 06/01/2016 Eczematous dermatitis 09/07/2011 06/01/2016 Lichenoid dermatitis 09/07/2011 06/01/2016 Excoriation 09/07/2011 06/01/2016 Nasal septal deviation 08/29/2011 7 Orbital mass 07/15/2011 06/01/2016 Obesity 05/09/2011 01/14/2014 Last Assessment & Plan: Pt disappointed in the amount of weight loss she has had over the past month while on the prescription Adipex 37.5mg daily. States she eats oatmeal in the morning every other day and at night has 1/3 of a bag of kettlecorn popcorn. States she does not eat anything else throughout the day. Ms Berg states since she was in her 20's she would control her wt loss by forcing herself to vomit after eating so she could eat more. Denies having an eating disorder and denies recent forced vomiting. Denies any current exercise routine and states she does not like to exercise. Her goal wt is 115. States she has a good appetite but limits her intake. She says she has a bad sweet tooth especially for chocolate. Cervical vertebral fracture 05/07/201105/16 Muscle spasms of head or neck 08/26/2009 Pain in joint, pelvic region and thigh 0 06/01/2016 Other chronic cystitis 12/21/2008 7 Hypertonicity of bladder 12/21/2008 017 PLANTAR Fasciitis 08/14/2006 06/01/2016 Sprain of neck 04/17/2006 06/01/2016 Rheumatoid arthritis 03/18/2006 06/01/2016 CHOLELITHIASIS SEE ALSO GALL BLADD WITHOUT CHOLECYSTITIS( Without obstruction) 01/11/2006 06/01/2016 EPIGASTRIC PAIN 01/11/2006 06/01/2016 HEPATITIS C CARRIER--treated with IFN and ribavirin and is in remission (as of 05/21) 05/29/2005 06/01/2016 Conductive hearing loss of combined types 200506/01/2016 Migraine variant 05/29/2005 06/01/2016 CHRONIC BRONCHITIS NOS--related to smoking 05/2906/01/2016 OSTEOARTHROS NOS-OTHER SITE- -OA vs RA treated with NSAIDs in past. 05/29/2005 06/01/2016 Overview: actonel 2009 start from hx in EPIC, fosamax 2011 started Cleft lip, unspecified 01/24/2005 7 documented as of this encounter (statuses as of 09/21/2021) [facility] [place]2016 History of Past illness Narrative* Problem Noted Date Resolved Date Chronic pain syndrome 06/27/2015 06/01/2016 Encounter for long-term (current) use of medicat ions 11/15/2014 06/01/2016 Lumbago 09/02/2014 06/01/2016 Cataract of both eyes 10/26/2013 06/01/2016 Overview: [facility] [place] 10/22/2013 - Combined forms of age-related cataract of both eyes Eating disorder 02/16/2013 06/01/2016 Cervical strain 01/22/2013 06/01/2016 Cervical disc disease 01/22/2013 06/01/2016 Xerosis cutis 09/07/2012 06/01/2016 Arthritis of left knee 02/15/2012 7 Leg ulcer, left 02/15/2012 06/01/2016 Closed fracture of lateral malleolus 11/23/2011 06/01/2016 Contusion of toe 11/23/2011 06/01/2016 Capsulitis 11/06/2011 06/01/2016 Pruritus of forearm 09/07/2011 06/01/2016 Pruritus - disorder 09/07/2011 06/01/2016 Eczematous dermatitis 09/07/2011 06/01/2016 Lichenoid dermatitis 09/07/2011 06/01/2016 Excoriation 09/07/2011 06/01/2016 Nasal septal deviation 08/29/2011 7 Orbital mass 07/15/2011 06/01/2016 Obesity 05/09/2011 01/14/2014 Last Assessment & Plan: Pt disappointed in the amount of weight loss she has had over the past month while on the prescription Adipex 37.5mg daily. States she eats oatmeal in the morning every other day and at night has 1/3 of a bag of kettlecorn popcorn. States she does not eat anything else throughout the day. Ms Berg states since she was in her 20's she would control her wt loss by forcing herself to vomit after eating so she could eat more. Denies having an eating disorder and denies recent forced vomiting. Denies any current exercise routine and states she does not like to exercise. Her goal wt is 115. States she has a good appetite but limits her intake. She says she has a bad sweet tooth especially for chocolate. Cervical vertebral fracture 05/07/201105/16 Muscle spasms of head or neck 08/26/2009 Pain in joint, pelvic region and thigh 0 06/01/2016 Other chronic cystitis 12/21/2008 7 Hypertonicity of bladder 12/21/2008 017 PLANTAR Fasciitis 08/14/2006 06/01/2016 Sprain of neck 04/17/2006 06/01/2016 Rheumatoid arthritis 03/18/2006 06/01/2016 CHOLELITHIASIS SEE ALSO GALL BLADD WITHOUT CHOLECYSTITIS( Without obstruction) 01/11/2006 06/01/2016 EPIGASTRIC PAIN 01/11/2006 06/01/2016 HEPATITIS C CARRIER--treated with IFN and ribavirin and is in remission (as of 05/21) 05/29/2005 06/01/2016 Conductive hearing loss of combined types 200506/01/2016 Migraine variant 05/29/2005 06/01/2016 CHRONIC BRONCHITIS NOS--related to smoking 05/2906/01/2016 OSTEOARTHROS NOS-OTHER SITE- -OA vs RA treated with NSAIDs in past. 05/29/2005 06/01/2016 Overview: actonel 2010 start from hx in EPIC, fosamax 2011 started Cleft lip, unspecified 01/24/2005 7 documented as of this encounter (statuses as of 09/22/2021) [facility] [place]2016 History of Past illness Narrative* Problem Noted Date Resolved Date Chronic pain syndrome 06/27/2015 06/01/2016 Encounter for long-term (current) use of medicat ions 11/15/2014 06/01/2016 Lumbago 09/02/2014 06/01/2016 Cataract of both eyes 10/26/2013 06/01/2016 Overview: [facility] 10/22/2013 - Combined forms of age-related cataract of both eyes Eating disorder 02/16/2013 06/01/2016 Cervical strain 01/22/2013 06/01/2016 Cervical disc disease 01/22/2013 06/01/2016 Xerosis cutis 09/07/2012 06/01/2016 Arthritis of left knee 02/15/2012 7 Leg ulcer, left 02/15/2012 06/01/2016 Closed fracture of lateral malleolus 11/23/2011 06/01/2016 Contusion of toe 11/23/2011 06/01/2016 Capsulitis 11/06/2011 06/01/2016 Pruritus of forearm 09/07/2011 06/01/2016 Pruritus - disorder 09/07/2011 06/01/2016 Eczematous dermatitis 09/07/2011 06/01/2016 Lichenoid dermatitis 09/07/2011 06/01/2016 Excoriation 09/07/2011 06/01/2016 Nasal septal deviation 08/29/2011 7 Orbital mass 07/15/2011 06/01/2016 Obesity 05/09/2011 01/14/2014 Last Assessment & Plan: Pt disappointed in the amount of weight loss she has had over the past month while on the prescription Adipex 37.5mg daily. States she eats oatmeal in the morning every other day and at night has 1/3 of a bag of kettlecorn popcorn. States she does not eat anything else throughout the day. Ms Berg states since she was in her 20's she would control her wt loss by forcing herself to vomit after eating so she could eat more. Denies having an eating disorder and denies recent forced vomiting. Denies any current exercise routine and states she does not like to exercise. Her goal wt is 115. States she has a good appetite but limits her intake. She says she has a bad sweet tooth especially for chocolate. Cervical vertebral fracture 05/07/201105/16 Muscle spasms of head or neck 08/26/2009 Pain in joint, pelvic region and thigh 0 06/01/2016 Other chronic cystitis 12/21/2008 7 Hypertonicity of bladder 12/21/2008 017 PLANTAR Fasciitis 08/14/2006 06/01/2016 Sprain of neck 04/17/2006 06/01/2016 Rheumatoid arthritis 03/18/2006 06/01/2016 CHOLELITHIASIS SEE ALSO GALL BLADD WITHOUT CHOLECYSTITIS( Without obstruction) 01/11/2006 06/01/2016 EPIGASTRIC PAIN 01/11/2006 06/01/2016 HEPATITIS C CARRIER--treated with IFN and ribavirin and is in remission (as of 05/21) 05/29/2005 06/01/2016 Conductive hearing loss of combined types 200506/01/2016 Migraine variant 05/29/2005 06/01/2016 CHRONIC BRONCHITIS NOS--related to smoking 05/2906/01/2016 OSTEOARTHROS NOS-OTHER SITE- -OA vs RA treated with NSAIDs in past. 05/29/2005 06/01/2016 Overview: actonel 2009 start from hx in EPIC, fosamax 2011 started Cleft lip, unspecified 01/24/2005 7 documented as of this encounter (statuses as of 09/22/2021) [facility] [place] History of Past illness Narrative* Problem Noted Date Resolved Date Chronic pain syndrome 06/27/2015 06/01/2016 Encounter for long-term (current) use of medicat ions 11/15/2014 06/01/2016 Lumbago 09/02/2014 06/01/2016 Cataract of both eyes 10/26/2013 06/01/2016 Overview: [facility] 10/22/2013 - Combined forms of age-related cataract of both eyes Eating disorder 02/16/2013 06/01/2016 Cervical strain 01/22/2013 06/01/2016 Cervical disc disease 01/22/2013 06/01/2016 Xerosis cutis 09/07/2012 06/01/2016 Arthritis of left knee 02/15/2012 7 Leg ulcer, left 02/15/2012 06/01/2016 Closed fracture of lateral malleolus 11/23/2011 06/01/2016 Contusion of toe 11/23/2011 06/01/2016 Capsulitis 11/06/2011 06/01/2016 Pruritus of forearm 09/07/2011 06/01/2016 Pruritus - disorder 09/07/2011 06/01/2016 Eczematous dermatitis 09/07/2011 06/01/2016 Lichenoid dermatitis 09/07/2011 06/01/2016 Excoriation 09/07/2011 06/01/2016 Nasal septal deviation 08/29/2011 7 Orbital mass 07/15/2011 06/01/2016 Obesity 05/09/2011 01/14/2014 Last Assessment & Plan: Pt disappointed in the amount of weight loss she has had over the past month while on the prescription Adipex 37.5mg daily. States she eats oatmeal in the morning every other day and at night has 1/3 of a bag of kettlecorn popcorn. States she does not eat anything else throughout the day. Ms Berg states since she was in her 20's she would control her wt loss by forcing herself to vomit after eating so she could eat more. Denies having an eating disorder and denies recent forced vomiting. Denies any current exercise routine and states she does not like to exercise. Her goal wt is 115. States she has a good appetite but limits her intake. She says she has a bad sweet tooth especially for chocolate. Cervical vertebral fracture 05/07/201105/16 Muscle spasms of head or neck 08/26/2009 Pain in joint, pelvic region and thigh 0 06/01/2016 Other chronic cystitis 12/21/2008 7 Hypertonicity of bladder 12/21/2008 017 PLANTAR Fasciitis 08/14/2006 06/01/2016 Sprain of neck 04/17/2006 06/01/2016 Rheumatoid arthritis 03/18/2006 06/01/2016 CHOLELITHIASIS SEE ALSO GALL BLADD WITHOUT CHOLECYSTITIS( Without obstruction) 01/11/2006 06/01/2016 EPIGASTRIC PAIN 01/11/2006 06/01/2016 HEPATITIS C CARRIER--treated with IFN and ribavirin and is in remission (as of 05/21) 05/29/2005 06/01/2016 Conductive hearing loss of combined types 200506/01/2016 Migraine variant 05/29/2005 06/01/2016 CHRONIC BRONCHITIS NOS--related to smoking 05/2906/01/2016 OSTEOARTHROS NOS-OTHER SITE- -OA vs RA treated with NSAIDs in past. 05/29/2005 06/01/2016 Overview: actonel 2009 start from hx in EPIC, fosamax 2011 started Cleft lip, unspecified 01/24/2005 7 documented as of this encounter (statuses as of 09/25/2021) [facility] [place]2016 History of Past illness Narrative* Problem Noted Date Resolved Date Chronic pain syndrome 06/27/2015 06/01/2016 Encounter for long-term (current) use of medicat ions 11/15/2014 06/01/2016 Lumbago 09/02/2014 06/01/2016 Cataract of both eyes 10/26/2013 06/01/2016 Overview: [facility] [place] 10/22/2013 - Combined forms of age-related cataract of both eyes Eating disorder 02/16/2013 06/01/2016 Cervical strain 01/22/2013 06/01/2016 Cervical disc disease 01/22/2013 06/01/2016 Xerosis cutis 09/07/2012 06/01/2016 Arthritis of left knee 02/15/2012 7 Leg ulcer, left 02/15/2012 06/01/2016 Closed fracture of lateral malleolus 11/23/2011 06/01/2016 Contusion of toe 11/23/2011 06/01/2016 Capsulitis 11/06/2011 06/01/2016 Pruritus of forearm 09/07/2011 06/01/2016 Pruritus - disorder 09/07/2011 06/01/2016 Eczematous dermatitis 09/07/2011 06/01/2016 Lichenoid dermatitis 09/07/2011 06/01/2016 Excoriation 09/07/2011 06/01/2016 Nasal septal deviation 08/29/2011 7 Orbital mass 07/15/2011 06/01/2016 Obesity 05/09/2011 01/14/2014 Last Assessment & Plan: Pt disappointed in the amount of weight loss she has had over the past month while on the prescription Adipex 37.5mg daily. States she eats oatmeal in the morning every other day and at night has 1/3 of a bag of kettlecorn popcorn. States she does not eat anything else throughout the day. Ms Berg states since she was in her 20's she would control her wt loss by forcing herself to vomit after eating so she could eat more. Denies having an eating disorder and denies recent forced vomiting. Denies any current exercise routine and states she does not like to exercise. Her goal wt is 115. States she has a good appetite but limits her intake. She says she has a bad sweet tooth especially for chocolate. Cervical vertebral fracture 05/07/201105/16 Muscle spasms of head or neck 08/26/2009 Pain in joint, pelvic region and thigh 0 06/01/2016 Other chronic cystitis 12/21/2008 7 Hypertonicity of bladder 12/21/2008 017 PLANTAR Fasciitis 08/14/2006 06/01/2016 Sprain of neck 04/17/2006 06/01/2016 Rheumatoid arthritis 03/18/2006 06/01/2016 CHOLELITHIASIS SEE ALSO GALL BLADD WITHOUT CHOLECYSTITIS( Without obstruction) 01/11/2006 06/01/2016 EPIGASTRIC PAIN 01/11/2006 06/01/2016 HEPATITIS C CARRIER--treated with IFN and ribavirin and is in remission (as of 05/21) 05/29/2005 06/01/2016 Conductive hearing loss of combined types 200506/01/2016 Migraine variant 05/29/2005 06/01/2016 CHRONIC BRONCHITIS NOS--related to smoking 05/2906/01/2016 OSTEOARTHROS NOS-OTHER SITE- -OA vs RA treated with NSAIDs in past. 05/29/2005 06/01/2016 Overview: actonel 2009 start from hx in EPIC, fosamax 2011 started Cleft lip, unspecified 01/24/2005 7 documented as of this encounter (statuses as of 09/25/2021) [facility]03-14-2016 History of Past illness Narrative* Problem Noted Date Resolved Date Chronic pain syndrome 06/27/2015 06/01/2016 Encounter for long-term (current) use of medicat ions 11/15/2014 06/01/2016 Lumbago 09/02/2014 06/01/2016 Cataract of both eyes 10/26/2013 06/01/2016 Overview: [facility] 10/22/2013 - Combined forms of age-related cataract of both eyes Eating disorder 02/16/2013 06/01/2016 Cervical strain 01/22/2013 06/01/2016 Cervical disc disease 01/22/2013 06/01/2016 Xerosis cutis 09/07/2012 06/01/2016 Arthritis of left knee 02/15/2012 7 Leg ulcer, left 02/15/2012 06/01/2016 Closed fracture of lateral malleolus 11/23/2011 06/01/2016 Contusion of toe 11/23/2011 06/01/2016 Capsulitis 11/06/2011 06/01/2016 Pruritus of forearm 09/07/2011 06/01/2016 Pruritus - disorder 09/07/2011 06/01/2016 Eczematous dermatitis 09/07/2011 06/01/2016 Lichenoid dermatitis 09/07/2011 06/01/2016 Excoriation 09/07/2011 06/01/2016 Nasal septal deviation 08/29/2011 7 Orbital mass 07/15/2011 06/01/2016 Obesity 05/09/2011 01/14/2014 Last Assessment & Plan: Pt disappointed in the amount of weight loss she has had over the past month while on the prescription Adipex 37.5mg daily. States she eats oatmeal in the morning every other day and at night has 1/3 of a bag of kettlecorn popcorn. States she does not eat anything else throughout the day. Ms Otis states since she was in her 20's she would control her wt loss by forcing herself to vomit after eating so she could eat more. Denies having an eating disorder and denies recent forced vomiting. Denies any current exercise routine and states she does not like to exercise. Her goal wt is 115. States she has a good appetite but limits her intake. She says she has a bad sweet tooth especially for chocolate. Cervical vertebral fracture 05/07/201105/16 Muscle spasms of head or neck 08/26/2009 Pain in joint, pelvic region and thigh 0 06/01/2016 Other chronic cystitis 12/21/2008 7 Hypertonicity of bladder 12/21/2008 017 PLANTAR Fasciitis 08/14/2006 06/01/2016 Sprain of neck 04/17/2006 06/01/2016 Rheumatoid arthritis 03/18/2006 06/01/2016 CHOLELITHIASIS SEE ALSO GALL BLADD WITHOUT CHOLECYSTITIS( Without obstruction) 01/11/2006 06/01/2016 EPIGASTRIC PAIN 01/11/2006 06/01/2016 HEPATITIS C CARRIER--treated with IFN and ribavirin and is in remission (as of 05/21) 05/29/2005 06/01/2016 Conductive hearing loss of combined types 200506/01/2016 Migraine variant 05/29/2005 06/01/2016 CHRONIC BRONCHITIS NOS--related to smoking 05/2906/01/2016 OSTEOARTHROS NOS-OTHER SITE- -OA vs RA treated with NSAIDs in past. 05/29/2005 06/01/2016 Overview: actonel 2009 start from hx in EPIC, fosamax 2011 started Cleft lip, unspecified 01/24/2005 7 documented as of this encounter (statuses as of 10/04/2021) [facility]03-14-2016 History of Past illness Narrative* Problem Noted Date Resolved Date Chronic pain syndrome 06/27/2015 06/01/2016 Encounter for long-term (current) use of medicat ions 11/15/2014 06/01/2016 Lumbago 09/02/2014 06/01/2016 Cataract of both eyes 10/26/2013 06/01/2016 Overview: [facility] 10/22/2013 - Combined forms of age-related cataract of both eyes Eating disorder 02/16/2013 06/01/2016 Cervical strain 01/22/2013 06/01/2016 Cervical disc disease 01/22/2013 06/01/2016 Xerosis cutis 09/07/2012 06/01/2016 Arthritis of left knee 02/15/2012 7 Leg ulcer, left 02/15/2012 06/01/2016 Closed fracture of lateral malleolus 11/23/2011 06/01/2016 Contusion of toe 11/23/2011 06/01/2016 Capsulitis 11/06/2011 06/01/2016 Pruritus of forearm 09/07/2011 06/01/2016 Pruritus - disorder 09/07/2011 06/01/2016 Eczematous dermatitis 09/07/2011 06/01/2016 Lichenoid dermatitis 09/07/2011 06/01/2016 Excoriation 09/07/2011 06/01/2016 Nasal septal deviation 08/29/2011 7 Orbital mass 07/15/2011 06/01/2016 Obesity 05/09/2011 01/14/2014 Last Assessment & Plan: Pt disappointed in the amount of weight loss she has had over the past month while on the prescription Adipex 37.5mg daily. States she eats oatmeal in the morning every other day and at night has 1/3 of a bag of kettlecorn popcorn. States she does not eat anything else throughout the day. Ms Berg states since she was in her 20's she would control her wt loss by forcing herself to vomit after eating so she could eat more. Denies having an eating disorder and denies recent forced vomiting. Denies any current exercise routine and states she does not like to exercise. Her goal wt is 115. States she has a good appetite but limits her intake. She says she has a bad sweet tooth especially for chocolate. Cervical vertebral fracture 05/07/201105/16 Muscle spasms of head or neck 08/26/2009 Pain in joint, pelvic region and thigh 0 06/01/2016 Other chronic cystitis 12/21/2008 7 Hypertonicity of bladder 12/21/2008 017 PLANTAR Fasciitis 08/14/2006 06/01/2016 Sprain of neck 04/17/2006 06/01/2016 Rheumatoid arthritis 03/18/2006 06/01/2016 CHOLELITHIASIS SEE ALSO GALL BLADD WITHOUT CHOLECYSTITIS( Without obstruction) 01/11/2006 06/01/2016 EPIGASTRIC PAIN 01/11/2006 06/01/2016 HEPATITIS C CARRIER--treated with IFN and ribavirin and is in remission (as of 05/21) 05/29/2005 06/01/2016 Conductive hearing loss of combined types 200506/01/2016 Migraine variant 05/29/2005 06/01/2016 CHRONIC BRONCHITIS NOS--related to smoking 05/2906/01/2016 OSTEOARTHROS NOS-OTHER SITE- -OA vs RA treated with NSAIDs in past. 05/29/2005 06/01/2016 Overview: actonel 2009 start from hx in EPIC, fosamax 2011 started Cleft lip, unspecified 01/24/2005 7 documented as of this encounter (statuses as of 10/09/2021) [facility]03[facility]2016 History of Past illness Narrative* Problem Noted Date Resolved Date Chronic pain syndrome 06/27/2015 06/01/2016 Encounter for long-term (current) use of medicat ions 11/15/2014 06/01/2016 Lumbago 09/02/2014 06/01/2016 Cataract of both eyes 10/26/2013 06/01/2016 Overview: [facility] [place] 10/22/2013 - Combined forms of age-related cataract of both eyes Eating disorder 02/16/2013 06/01/2016 Cervical strain 01/22/2013 06/01/2016 Cervical disc disease 01/22/2013 06/01/2016 Xerosis cutis 09/07/2012 06/01/2016 Arthritis of left knee 02/15/2012 7 Leg ulcer, left 02/15/2012 06/01/2016 Closed fracture of lateral malleolus 11/23/2011 06/01/2016 Contusion of toe 11/23/2011 06/01/2016 Capsulitis 11/06/2011 06/01/2016 Pruritus of forearm 09/07/2011 06/01/2016 Pruritus - disorder 09/07/2011 06/01/2016 Eczematous dermatitis 09/07/2011 06/01/2016 Lichenoid dermatitis 09/07/2011 06/01/2016 Excoriation 09/07/2011 06/01/2016 Nasal septal deviation 08/29/2011 7 Orbital mass 07/15/2011 06/01/2016 Obesity 05/09/2011 01/14/2014 Last Assessment & Plan: Pt disappointed in the amount of weight loss she has had over the past month while on the prescription Adipex 37.5mg daily. States she eats oatmeal in the morning every other day and at night has 1/3 of a bag of kettlecorn popcorn. States she does not eat anything else throughout the day. Ms Berg states since she was in her 20's she would control her wt loss by forcing herself to vomit after eating so she could eat more. Denies having an eating disorder and denies recent forced vomiting. Denies any current exercise routine and states she does not like to exercise. Her goal wt is 115. States she has a good appetite but limits her intake. She says she has a bad sweet tooth especially for chocolate. Cervical vertebral fracture 05/07/201105/16 Muscle spasms of head or neck 08/26/2009 Pain in joint, pelvic region and thigh 0 06/01/2016 Other chronic cystitis 12/21/2008 7 Hypertonicity of bladder 12/21/2008 017 PLANTAR Fasciitis 08/14/2006 06/01/2016 Sprain of neck 04/17/2006 06/01/2016 Rheumatoid arthritis 03/18/2006 06/01/2016 CHOLELITHIASIS SEE ALSO GALL BLADD WITHOUT CHOLECYSTITIS( Without obstruction) 01/11/2006 06/01/2016 EPIGASTRIC PAIN 01/11/2006 06/01/2016 HEPATITIS C CARRIER--treated with IFN and ribavirin and is in remission (as of 05/21) 05/29/2005 06/01/2016 Conductive hearing loss of combined types 200506/01/2016 Migraine variant 05/29/2005 06/01/2016 CHRONIC BRONCHITIS NOS--related to smoking 05/2906/01/2016 OSTEOARTHROS NOS-OTHER SITE- -OA vs RA treated with NSAIDs in past. 05/29/2005 06/01/2016 Overview: actonel 2010 start from hx in EPIC, fosamax 2011 started Cleft lip, unspecified 01/24/2005 7 documented as of this encounter (statuses as of 10/09/2021) [facility]03-14-2016 History of Past illness Narrative* Problem Noted Date Resolved Date Chronic pain syndrome 06/27/2015 06/01/2016 Encounter for long-term (current) use of medicat ions 11/15/2014 06/01/2016 Lumbago 09/02/2014 06/01/2016 Cataract of both eyes 10/26/2013 06/01/2016 Overview: [facility] 10/22/2013 - Combined forms of age-related cataract of both eyes Eating disorder 02/16/2013 06/01/2016 Cervical strain 01/22/2013 06/01/2016 Cervical disc disease 01/22/2013 06/01/2016 Xerosis cutis 09/07/2012 06/01/2016 Arthritis of left knee 02/15/2012 7 Leg ulcer, left 02/15/2012 06/01/2016 Closed fracture of lateral malleolus 11/23/2011 06/01/2016 Contusion of toe 11/23/2011 06/01/2016 Capsulitis 11/06/2011 06/01/2016 Pruritus of forearm 09/07/2011 06/01/2016 Pruritus - disorder 09/07/2011 06/01/2016 Eczematous dermatitis 09/07/2011 06/01/2016 Lichenoid dermatitis 09/07/2011 06/01/2016 Excoriation 09/07/2011 06/01/2016 Nasal septal deviation 08/29/2011 7 Orbital mass 07/15/2011 06/01/2016 Obesity 05/09/2011 01/14/2014 Last Assessment & Plan: Pt disappointed in the amount of weight loss she has had over the past month while on the prescription Adipex 37.5mg daily. States she eats oatmeal in the morning every other day and at night has 1/3 of a bag of kettlecorn popcorn. States she does not eat anything else throughout the day. Ms Berg states since she was in her 20's she would control her wt loss by forcing herself to vomit after eating so she could eat more. Denies having an eating disorder and denies recent forced vomiting. Denies any current exercise routine and states she does not like to exercise. Her goal wt is 115. States she has a good appetite but limits her intake. She says she has a bad sweet tooth especially for chocolate. Cervical vertebral fracture 05/07/201105/16 Muscle spasms of head or neck 08/26/2009 Pain in joint, pelvic region and thigh 0 06/01/2016 Other chronic cystitis 12/21/2008 7 Hypertonicity of bladder 12/21/2008 017 PLANTAR Fasciitis 08/14/2006 06/01/2016 Sprain of neck 04/17/2006 06/01/2016 Rheumatoid arthritis 03/18/2006 06/01/2016 CHOLELITHIASIS SEE ALSO GALL BLADD WITHOUT CHOLECYSTITIS( Without obstruction) 01/11/2006 06/01/2016 EPIGASTRIC PAIN 01/11/2006 06/01/2016 HEPATITIS C CARRIER--treated with IFN and ribavirin and is in remission (as of 05/21) 05/29/2005 06/01/2016 Conductive hearing loss of combined types 200506/01/2016 Migraine variant 05/29/2005 06/01/2016 CHRONIC BRONCHITIS NOS--related to smoking 05/2906/01/2016 OSTEOARTHROS NOS-OTHER SITE- -OA vs RA treated with NSAIDs in past. 05/29/2005 06/01/2016 Overview: actonel 2009 start from hx in EPIC, fosamax 2011 started Cleft lip, unspecified 01/24/2005 7 documented as of this encounter (statuses as of 10/10/2021) [facility]03-[facility]-2016 History of Past illness Narrative* Problem Noted Date Resolved Date Chronic pain syndrome 06/27/2015 06/01/2016 Encounter for long-term (current) use of medicat ions 11/15/2014 06/01/2016 Lumbago 09/02/2014 06/01/2016 Cataract of both eyes 10/26/2013 06/01/2016 Overview: [facility] [place] 10/22/2013 - Combined forms of age-related cataract of both eyes Eating disorder 02/16/2013 06/01/2016 Cervical strain 01/22/2013 06/01/2016 Cervical disc disease 01/22/2013 06/01/2016 Xerosis cutis 09/07/2012 06/01/2016 Arthritis of left knee 02/15/2012 7 Leg ulcer, left 02/15/2012 06/01/2016 Closed fracture of lateral malleolus 11/23/2011 06/01/2016 Contusion of toe 11/23/2011 06/01/2016 Capsulitis 11/06/2011 06/01/2016 Pruritus of forearm 09/07/2011 06/01/2016 Pruritus - disorder 09/07/2011 06/01/2016 Eczematous dermatitis 09/07/2011 06/01/2016 Lichenoid dermatitis 09/07/2011 06/01/2016 Excoriation 09/07/2011 06/01/2016 Nasal septal deviation 08/29/2011 7 Orbital mass 07/15/2011 06/01/2016 Obesity 05/09/2011 01/14/2014 Last Assessment & Plan: Pt disappointed in the amount of weight loss she has had over the past month while on the prescription Adipex 37.5mg daily. States she eats oatmeal in the morning every other day and at night has 1/3 of a bag of kettlecorn popcorn. States she does not eat anything else throughout the day. Ms Berg states since she was in her 20's she would control her wt loss by forcing herself to vomit after eating so she could eat more. Denies having an eating disorder and denies recent forced vomiting. Denies any current exercise routine and states she does not like to exercise. Her goal wt is 115. States she has a good appetite but limits her intake. She says she has a bad sweet tooth especially for chocolate. Cervical vertebral fracture 05/07/201105/16 Muscle spasms of head or neck 08/26/2009 Pain in joint, pelvic region and thigh 0 06/01/2016 Other chronic cystitis 12/21/2008 7 Hypertonicity of bladder 12/21/2008 017 PLANTAR Fasciitis 08/14/2006 06/01/2016 Sprain of neck 04/17/2006 06/01/2016 Rheumatoid arthritis 03/18/2006 06/01/2016 CHOLELITHIASIS SEE ALSO GALL BLADD WITHOUT CHOLECYSTITIS( Without obstruction) 01/11/2006 06/01/2016 EPIGASTRIC PAIN 01/11/2006 06/01/2016 HEPATITIS C CARRIER--treated with IFN and ribavirin and is in remission (as of 05/21) 05/29/2005 06/01/2016 Conductive hearing loss of combined types 200506/01/2016 Migraine variant 05/29/2005 06/01/2016 CHRONIC BRONCHITIS NOS--related to smoking 05/2906/01/2016 OSTEOARTHROS NOS-OTHER SITE- -OA vs RA treated with NSAIDs in past. 05/29/2005 06/01/2016 Overview: actonel 2009 start from hx in EPIC, fosamax 2011 started Cleft lip, unspecified 01/24/2005 7 documented as of this encounter (statuses as of 2021) [facility]03-[facility]2016 History of Past illness Narrative* Problem Noted Date Resolved Date Chronic pain syndrome 06/27/2015 06/01/2016 Encounter for long-term (current) use of medicat ions 11/15/2014 06/01/2016 Lumbago 09/02/2014 06/01/2016 Cataract of both eyes 10/26/2013 06/01/2016 Overview: [facility] [place] 10/22/2013 - Combined forms of age-related cataract of both eyes Eating disorder 02/16/2013 06/01/2016 Cervical strain 01/22/2013 06/01/2016 Cervical disc disease 01/22/2013 06/01/2016 Xerosis cutis 09/07/2012 06/01/2016 Arthritis of left knee 02/15/2012 7 Leg ulcer, left 02/15/2012 06/01/2016 Closed fracture of lateral malleolus 11/23/2011 06/01/2016 Contusion of toe 11/23/2011 06/01/2016 Capsulitis 11/06/2011 06/01/2016 Pruritus of forearm 09/07/2011 06/01/2016 Pruritus - disorder 09/07/2011 06/01/2016 Eczematous dermatitis 09/07/2011 06/01/2016 Lichenoid dermatitis 09/07/2011 06/01/2016 Excoriation 09/07/2011 06/01/2016 Nasal septal deviation 08/29/2011 7 Orbital mass 07/15/2011 06/01/2016 Obesity 05/09/2011 01/14/2014 Last Assessment & Plan: Pt disappointed in the amount of weight loss she has had over the past month while on the prescription Adipex 37.5mg daily. States she eats oatmeal in the morning every other day and at night has 1/3 of a bag of kettlecorn popcorn. States she does not eat anything else throughout the day. Ms Berg states since she was in her 20's she would control her wt loss by forcing herself to vomit after eating so she could eat more. Denies having an eating disorder and denies recent forced vomiting. Denies any current exercise routine and states she does not like to exercise. Her goal wt is 115. States she has a good appetite but limits her intake. She says she has a bad sweet tooth especially for chocolate. Cervical vertebral fracture 05/07/201105/16 Muscle spasms of head or neck 08/26/2009 Pain in joint, pelvic region and thigh 0 06/01/2016 Other chronic cystitis 12/21/2008 7 Hypertonicity of bladder 12/21/2008 017 PLANTAR Fasciitis 08/14/2006 06/01/2016 Sprain of neck 04/17/2006 06/01/2016 Rheumatoid arthritis 03/18/2006 06/01/2016 CHOLELITHIASIS SEE ALSO GALL BLADD WITHOUT CHOLECYSTITIS( Without obstruction) 01/11/2006 06/01/2016 EPIGASTRIC PAIN 01/11/2006 06/01/2016 HEPATITIS C CARRIER--treated with IFN and ribavirin and is in remission (as of 05/21) 05/29/2005 06/01/2016 Conductive hearing loss of combined types 200506/01/2016 Migraine variant 05/29/2005 06/01/2016 CHRONIC BRONCHITIS NOS--related to smoking 05/2906/01/2016 OSTEOARTHROS NOS-OTHER SITE- -OA vs RA treated with NSAIDs in past. 05/29/2005 06/01/2016 Overview: actonel 2009 start from hx in EPIC, fosamax 2011 started Cleft lip, unspecified 01/24/2005 7 documented as of this encounter (statuses as of 10/18/2021) [facility]03[facility] History of Past illness Narrative* Problem Noted Date Resolved Date Chronic pain syndrome 06/27/2015 06/01/2016 Encounter for long-term (current) use of medicat ions 11/15/2014 06/01/2016 Lumbago 09/02/2014 06/01/2016 Cataract of both eyes 10/26/2013 06/01/2016 Overview: [facility] [place] 10/22/2013 - Combined forms of age-related cataract of both eyes Eating disorder 02/16/2013 06/01/2016 Cervical strain 01/22/2013 06/01/2016 Cervical disc disease 01/22/2013 06/01/2016 Xerosis cutis 09/07/2012 06/01/2016 Arthritis of left knee 02/15/2012 7 Leg ulcer, left 02/15/2012 06/01/2016 Closed fracture of lateral malleolus 11/23/2011 06/01/2016 Contusion of toe 11/23/2011 06/01/2016 Capsulitis 11/06/2011 06/01/2016 Pruritus of forearm 09/07/2011 06/01/2016 Pruritus - disorder 09/07/2011 06/01/2016 Eczematous dermatitis 09/07/2011 06/01/2016 Lichenoid dermatitis 09/07/2011 06/01/2016 Excoriation 09/07/2011 06/01/2016 Nasal septal deviation 08/29/2011 7 Orbital mass 07/15/2011 06/01/2016 Obesity 05/09/2011 01/14/2014 Last Assessment & Plan: Pt disappointed in the amount of weight loss she has had over the past month while on the prescription Adipex 37.5mg daily. States she eats oatmeal in the morning every other day and at night has 1/3 of a bag of kettlecorn popcorn. States she does not eat anything else throughout the day. Ms Berg states since she was in her 20's she would control her wt loss by forcing herself to vomit after eating so she could eat more. Denies having an eating disorder and denies recent forced vomiting. Denies any current exercise routine and states she does not like to exercise. Her goal wt is 115. States she has a good appetite but limits her intake. She says she has a bad sweet tooth especially for chocolate. Cervical vertebral fracture 05/07/201105/16 Muscle spasms of head or neck 08/26/2009 Pain in joint, pelvic region and thigh 0 06/01/2016 Other chronic cystitis 12/21/2008 7 Hypertonicity of bladder 12/21/2008 017 PLANTAR Fasciitis 08/14/2006 06/01/2016 Sprain of neck 04/17/2006 06/01/2016 Rheumatoid arthritis 03/18/2006 06/01/2016 CHOLELITHIASIS SEE ALSO GALL BLADD WITHOUT CHOLECYSTITIS( Without obstruction) 01/11/2006 06/01/2016 EPIGASTRIC PAIN 01/11/2006 06/01/2016 HEPATITIS C CARRIER--treated with IFN and ribavirin and is in remission (as of 05/21) 05/29/2005 06/01/2016 Conductive hearing loss of combined types 200506/01/2016 Migraine variant 05/29/2005 06/01/2016 CHRONIC BRONCHITIS NOS--related to smoking 05/2906/01/2016 OSTEOARTHROS NOS-OTHER SITE- -OA vs RA treated with NSAIDs in past. 05/29/2005 06/01/2016 Overview: actonel 2009 start from hx in EPIC, fosamax 2011 started Cleft lip, unspecified 01/24/2005 02/17/201 7 documented as of this encounter (statuses as of 10/18/2021) [facility] History of Past illness Narrative* Problem Noted Date Resolved Date Chronic pain syndrome 06/27/2015 06/01/2016 Encounter for long-term (current) use of medicat ions 11/15/2014 06/01/2016 Lumbago 09/02/2014 06/01/2016 Cataract of both eyes 10/26/2013 06/01/2016 Overview: [facility] 10/22/2013 - Combined forms of age-related cataract of both eyes Eating disorder 02/16/2013 06/01/2016 Cervical strain 01/22/2013 06/01/2016 Cervical disc disease 01/22/2013 06/01/2016 Xerosis cutis 09/07/2012 06/01/2016 Arthritis of left knee 02/15/2012 7 Leg ulcer, left 02/15/2012 06/01/2016 Closed fracture of lateral malleolus 11/23/2011 06/01/2016 Contusion of toe 11/23/2011 06/01/2016 Capsulitis 11/06/2011 06/01/2016 Pruritus of forearm 09/07/2011 06/01/2016 Pruritus - disorder 09/07/2011 06/01/2016 Eczematous dermatitis 09/07/2011 06/01/2016 Lichenoid dermatitis 09/07/2011 06/01/2016 Excoriation 09/07/2011 06/01/2016 Nasal septal deviation 08/29/2011 7 Orbital mass 07/15/2011 06/01/2016 Obesity 05/09/2011 01/14/2014 Last Assessment & Plan: Pt disappointed in the amount of weight loss she has had over the past month while on the prescription Adipex 37.5mg daily. States she eats oatmeal in the morning every other day and at night has 1/3 of a bag of kettlecorn popcorn. States she does not eat anything else throughout the day. Ms Berg states since she was in her 20's she would control her wt loss by forcing herself to vomit after eating so she could eat more. Denies having an eating disorder and denies recent forced vomiting. Denies any current exercise routine and states she does not like to exercise. Her goal wt is 115. States she has a good appetite but limits her intake. She says she has a bad sweet tooth especially for chocolate. Cervical vertebral fracture 05/07/201105/16 Muscle spasms of head or neck 08/26/2009 Pain in joint, pelvic region and thigh 0 06/01/2016 Other chronic cystitis 12/21/2008 7 Hypertonicity of bladder 12/21/2008 017 PLANTAR Fasciitis 08/14/2006 06/01/2016 Sprain of neck 04/17/2006 06/01/2016 Rheumatoid arthritis 03/18/2006 06/01/2016 CHOLELITHIASIS SEE ALSO GALL BLADD WITHOUT CHOLECYSTITIS( Without obstruction) 01/11/2006 06/01/2016 EPIGASTRIC PAIN 01/11/2006 06/01/2016 HEPATITIS C CARRIER--treated with IFN and ribavirin and is in remission (as of 05/21) 05/29/2005 06/01/2016 Conductive hearing loss of combined types 200506/01/2016 Migraine variant 05/29/2005 06/01/2016 CHRONIC BRONCHITIS NOS--related to smoking 05/2906/01/2016 OSTEOARTHROS NOS-OTHER SITE- -OA vs RA treated with NSAIDs in past. 05/29/2005 06/01/2016 Overview: actonel 2009 start from hx in EPIC, fosamax 2011 started Cleft lip, unspecified 01/24/2005 7 documented as of this encounter (statuses as of 10/19/2021) [facility] History of Past illness Narrative* Problem Noted Date Resolved Date Chronic pain syndrome 06/27/2015 06/01/2016 Encounter for long-term (current) use of medicat ions 11/15/2014 06/01/2016 Lumbago 09/02/2014 06/01/2016 Cataract of both eyes 10/26/2013 06/01/2016 Overview: [facility] 10/22/2013 - Combined forms of age-related cataract of both eyes Eating disorder 02/16/2013 06/01/2016 Cervical strain 01/22/2013 06/01/2016 Cervical disc disease 01/22/2013 06/01/2016 Xerosis cutis 09/07/2012 06/01/2016 Arthritis of left knee 02/15/2012 7 Leg ulcer, left 02/15/2012 06/01/2016 Closed fracture of lateral malleolus 11/23/2011 06/01/2016 Contusion of toe 11/23/2011 06/01/2016 Capsulitis 11/06/2011 06/01/2016 Pruritus of forearm 09/07/2011 06/01/2016 Pruritus - disorder 09/07/2011 06/01/2016 Eczematous dermatitis 09/07/2011 06/01/2016 Lichenoid dermatitis 09/07/2011 06/01/2016 Excoriation 09/07/2011 06/01/2016 Nasal septal deviation 08/29/2011 7 Orbital mass 07/15/2011 06/01/2016 Obesity 05/09/2011 01/14/2014 Last Assessment & Plan: Pt disappointed in the amount of weight loss she has had over the past month while on the prescription Adipex 37.5mg daily. States she eats oatmeal in the morning every other day and at night has 1/3 of a bag of kettlecorn popcorn. States she does not eat anything else throughout the day. Ms Berg states since she was in her 20's she would control her wt loss by forcing herself to vomit after eating so she could eat more. Denies having an eating disorder and denies recent forced vomiting. Denies any current exercise routine and states she does not like to exercise. Her goal wt is 115. States she has a good appetite but limits her intake. She says she has a bad sweet tooth especially for chocolate. Cervical vertebral fracture 05/07/201105/16 Muscle spasms of head or neck 08/26/2009 Pain in joint, pelvic region and thigh 0 06/01/2016 Other chronic cystitis 12/21/2008 7 Hypertonicity of bladder 12/21/2008 017 PLANTAR Fasciitis 08/14/2006 06/01/2016 Sprain of neck 04/17/2006 06/01/2016 Rheumatoid arthritis 03/18/2006 06/01/2016 CHOLELITHIASIS SEE ALSO GALL BLADD WITHOUT CHOLECYSTITIS( Without obstruction) 01/11/2006 06/01/2016 EPIGASTRIC PAIN 01/11/2006 06/01/2016 HEPATITIS C CARRIER--treated with IFN and ribavirin and is in remission (as of 05/21) 05/29/2005 06/01/2016 Conductive hearing loss of combined types 200506/01/2016 Migraine variant 05/29/2005 06/01/2016 CHRONIC BRONCHITIS NOS--related to smoking 05/2906/01/2016 OSTEOARTHROS NOS-OTHER SITE- -OA vs RA treated with NSAIDs in past. 05/29/2005 06/01/2016 Overview: actonel 2009 start from hx in EP[facility], fosamax 2011 started Cleft lip, unspecified 01/24/2005 7 documented as of this encounter (statuses as of 10/23/2021) [facility]03-14-2016 History of Past illness Narrative* Problem Noted Date Resolved Date Chronic pain syndrome 06/27/2015 06/01/2016 Encounter for long-term (current) use of medicat ions 11/15/2014 06/01/2016 Lumbago 09/02/2014 06/01/2016 Cataract of both eyes 10/26/2013 06/01/2016 Overview: [facility] 10/22/2013 - Combined forms of age-related cataract of both eyes Eating disorder 02/16/2013 06/01/2016 Cervical strain 01/22/2013 06/01/2016 Cervical disc disease 01/22/2013 06/01/2016 Xerosis cutis 09/07/2012 06/01/2016 Arthritis of left knee 02/15/2012 7 Leg ulcer, left 02/15/2012 06/01/2016 Closed fracture of lateral malleolus 11/23/2011 06/01/2016 Contusion of toe 11/23/2011 06/01/2016 Capsulitis 11/06/2011 06/01/2016 Pruritus of forearm 09/07/2011 06/01/2016 Pruritus - disorder 09/07/2011 06/01/2016 Eczematous dermatitis 09/07/2011 06/01/2016 Lichenoid dermatitis 09/07/2011 06/01/2016 Excoriation 09/07/2011 06/01/2016 Nasal septal deviation 08/29/2011 7 Orbital mass 07/15/2011 06/01/2016 Obesity 05/09/2011 01/14/2014 Last Assessment & Plan: Pt disappointed in the amount of weight loss she has had over the past month while on the prescription Adipex 37.5mg daily. States she eats oatmeal in the morning every other day and at night has 1/3 of a bag of kettlecorn popcorn. States she does not eat anything else throughout the day. Ms Berg states since she was in her 20's she would control her wt loss by forcing herself to vomit after eating so she could eat more. Denies having an eating disorder and denies recent forced vomiting. Denies any current exercise routine and states she does not like to exercise. Her goal wt is 115. States she has a good appetite but limits her intake. She says she has a bad sweet tooth especially for chocolate. Cervical vertebral fracture 05/07/201105/16 Muscle spasms of head or neck 08/26/2009 Pain in joint, pelvic region and thigh 0 06/01/2016 Other chronic cystitis 12/21/2008 7 Hypertonicity of bladder 12/21/2008 017 PLANTAR Fasciitis 08/14/2006 06/01/2016 Sprain of neck 04/17/2006 06/01/2016 Rheumatoid arthritis 03/18/2006 06/01/2016 CHOLELITHIASIS SEE ALSO GALL BLADD WITHOUT CHOLECYSTITIS( Without obstruction) 01/11/2006 06/01/2016 EPIGASTRIC PAIN 01/11/2006 06/01/2016 HEPATITIS C CARRIER--treated with IFN and ribavirin and is in remission (as of 05/21) 05/29/2005 06/01/2016 Conductive hearing loss of combined types 200506/01/2016 Migraine variant 05/29/2005 06/01/2016 CHRONIC BRONCHITIS NOS--related to smoking 05/2906/01/2016 OSTEOARTHROS NOS-OTHER SITE- -OA vs RA treated with NSAIDs in past. 05/29/2005 06/01/2016 Overview: actonel 2010 start from hx in EPIC, fosamax 2011 started Cleft lip, unspecified 01/24/2005 7 documented as of this encounter (statuses as of 10/23/2021) [facility]03-[facility]2016 History of Past illness Narrative* Problem Noted Date Resolved Date Chronic pain syndrome 06/27/2015 06/01/2016 Encounter for long-term (current) use of medicat ions 11/15/2014 06/01/2016 Lumbago 09/02/2014 06/01/2016 Cataract of both eyes 10/26/2013 06/01/2016 Overview: [facility] 10/22/2013 - Combined forms of age-related cataract of both eyes Eating disorder 02/16/2013 06/01/2016 Cervical strain 01/22/2013 06/01/2016 Cervical disc disease 01/22/2013 06/01/2016 Xerosis cutis 09/07/2012 06/01/2016 Arthritis of left knee 02/15/2012 7 Leg ulcer, left 02/15/2012 06/01/2016 Closed fracture of lateral malleolus 11/23/2011 06/01/2016 Contusion of toe 11/23/2011 06/01/2016 Capsulitis 11/06/2011 06/01/2016 Pruritus of forearm 09/07/2011 06/01/2016 Pruritus - disorder 09/07/2011 06/01/2016 Eczematous dermatitis 09/07/2011 06/01/2016 Lichenoid dermatitis 09/07/2011 06/01/2016 Excoriation 09/07/2011 06/01/2016 Nasal septal deviation 08/29/2011 7 Orbital mass 07/15/2011 06/01/2016 Obesity 05/09/2011 01/14/2014 Last Assessment & Plan: Pt disappointed in the amount of weight loss she has had over the past month while on the prescription Adipex 37.5mg daily. States she eats oatmeal in the morning every other day and at night has 1/3 of a bag of kettlecorn popcorn. States she does not eat anything else throughout the day. Ms Berg states since she was in her 20's she would control her wt loss by forcing herself to vomit after eating so she could eat more. Denies having an eating disorder and denies recent forced vomiting. Denies any current exercise routine and states she does not like to exercise. Her goal wt is 115. States she has a good appetite but limits her intake. She says she has a bad sweet tooth especially for chocolate. Cervical vertebral fracture 05/07/201105/16 Muscle spasms of head or neck 08/26/2009 Pain in joint, pelvic region and thigh 0 06/01/2016 Other chronic cystitis 12/21/2008 7 Hypertonicity of bladder 12/21/2008 017 PLANTAR Fasciitis 08/14/2006 06/01/2016 Sprain of neck 04/17/2006 06/01/2016 Rheumatoid arthritis 03/18/2006 06/01/2016 CHOLELITHIASIS SEE ALSO GALL BLADD WITHOUT CHOLECYSTITIS( Without obstruction) 01/11/2006 06/01/2016 EPIGASTRIC PAIN 01/11/2006 06/01/2016 HEPATITIS C CARRIER--treated with IFN and ribavirin and is in remission (as of 05/21) 05/29/2005 06/01/2016 Conductive hearing loss of combined types 200506/01/2016 Migraine variant 05/29/2005 06/01/2016 CHRONIC BRONCHITIS NOS--related to smoking 05/2906/01/2016 OSTEOARTHROS NOS-OTHER SITE- -OA vs RA treated with NSAIDs in past. 05/29/2005 06/01/2016 Overview: actonel 2009 start from hx in EPIC, fosamax 2011 started Cleft lip, unspecified 01/24/2005 7 documented as of this encounter (statuses as of 10/24/2021) [facility]03[facility]2016 History of Past illness Narrative* Problem Noted Date Resolved Date Chronic pain syndrome 06/27/2015 06/01/2016 Encounter for long-term (current) use of medicat ions 11/15/2014 06/01/2016 Lumbago 09/02/2014 06/01/2016 Cataract of both eyes 10/26/2013 06/01/2016 Overview: [facility] 10/22/2013 - Combined forms of age-related cataract of both eyes Eating disorder 02/16/2013 06/01/2016 Cervical strain 01/22/2013 06/01/2016 Cervical disc disease 01/22/2013 06/01/2016 Xerosis cutis 09/07/2012 06/01/2016 Arthritis of left knee 02/15/2012 7 Leg ulcer, left 02/15/2012 06/01/2016 Closed fracture of lateral malleolus 11/23/2011 06/01/2016 Contusion of toe 11/23/2011 06/01/2016 Capsulitis 11/06/2011 06/01/2016 Pruritus of forearm 09/07/2011 06/01/2016 Pruritus - disorder 09/07/2011 06/01/2016 Eczematous dermatitis 09/07/2011 06/01/2016 Lichenoid dermatitis 09/07/2011 06/01/2016 Excoriation 09/07/2011 06/01/2016 Nasal septal deviation 08/29/2011 7 Orbital mass 07/15/2011 06/01/2016 Obesity 05/09/2011 01/14/2014 Last Assessment & Plan: Pt disappointed in the amount of weight loss she has had over the past month while on the prescription Adipex 37.5mg daily. States she eats oatmeal in the morning every other day and at night has 1/3 of a bag of kettlecorn popcorn. States she does not eat anything else throughout the day. Ms Berg states since she was in her 20's she would control her wt loss by forcing herself to vomit after eating so she could eat more. Denies having an eating disorder and denies recent forced vomiting. Denies any current exercise routine and states she does not like to exercise. Her goal wt is 115. States she has a good appetite but limits her intake. She says she has a bad sweet tooth especially for chocolate. Cervical vertebral fracture 05/07/201105/16 Muscle spasms of head or neck 08/26/2009 Pain in joint, pelvic region and thigh 0 06/01/2016 Other chronic cystitis 12/21/2008 7 Hypertonicity of bladder 12/21/2008 017 PLANTAR Fasciitis 08/14/2006 06/01/2016 Sprain of neck 04/17/2006 06/01/2016 Rheumatoid arthritis 03/18/2006 06/01/2016 CHOLELITHIASIS SEE ALSO GALL BLADD WITHOUT CHOLECYSTITIS( Without obstruction) 01/11/2006 06/01/2016 EPIGASTRIC PAIN 01/11/2006 06/01/2016 HEPATITIS C CARRIER--treated with IFN and ribavirin and is in remission (as of 05/21) 05/29/2005 06/01/2016 Conductive hearing loss of combined types 200506/01/2016 Migraine variant 05/29/2005 06/01/2016 CHRONIC BRONCHITIS NOS--related to smoking 05/2906/01/2016 OSTEOARTHROS NOS-OTHER SITE- -OA vs RA treated with NSAIDs in past. 05/29/2005 06/01/2016 Overview: actonel 2009 start from hx in EPIC, fosamax 2011 started Cleft lip, unspecified 01/24/2005 7 documented as of this encounter (statuses as of 10/25/2021) [facility]03-[facility]2016 History of Past illness Narrative* Problem Noted Date Resolved Date Chronic pain syndrome 06/27/2015 06/01/2016 Encounter for long-term (current) use of medicat ions 11/15/2014 06/01/2016 Lumbago 09/02/2014 06/01/2016 Cataract of both eyes 10/26/2013 06/01/2016 Overview: [facility] 10/22/2013 - Combined forms of age-related cataract of both eyes Eating disorder 02/16/2013 06/01/2016 Cervical strain 01/22/2013 06/01/2016 Cervical disc disease 01/22/2013 06/01/2016 Xerosis cutis 09/07/2012 06/01/2016 Arthritis of left knee 02/15/2012 7 Leg ulcer, left 02/15/2012 06/01/2016 Closed fracture of lateral malleolus 11/23/2011 06/01/2016 Contusion of toe 11/23/2011 06/01/2016 Capsulitis 11/06/2011 06/01/2016 Pruritus of forearm 09/07/2011 06/01/2016 Pruritus - disorder 09/07/2011 06/01/2016 Eczematous dermatitis 09/07/2011 06/01/2016 Lichenoid dermatitis 09/07/2011 06/01/2016 Excoriation 09/07/2011 06/01/2016 Nasal septal deviation 08/29/2011 7 Orbital mass 07/15/2011 06/01/2016 Obesity 05/09/2011 01/14/2014 Last Assessment & Plan: Pt disappointed in the amount of weight loss she has had over the past month while on the prescription Adipex 37.5mg daily. States she eats oatmeal in the morning every other day and at night has 1/3 of a bag of kettlecorn popcorn. States she does not eat anything else throughout the day. Ms Berg states since she was in her 20's she would control her wt loss by forcing herself to vomit after eating so she could eat more. Denies having an eating disorder and denies recent forced vomiting. Denies any current exercise routine and states she does not like to exercise. Her goal wt is 115. States she has a good appetite but limits her intake. She says she has a bad sweet tooth especially for chocolate. Cervical vertebral fracture 05/07/201105/16 Muscle spasms of head or neck 08/26/2009 Pain in joint, pelvic region and thigh 0 06/01/2016 Other chronic cystitis 12/21/2008 7 Hypertonicity of bladder 12/21/2008 017 PLANTAR Fasciitis 08/14/2006 06/01/2016 Sprain of neck 04/17/2006 06/01/2016 Rheumatoid arthritis 03/18/2006 06/01/2016 CHOLELITHIASIS SEE ALSO GALL BLADD WITHOUT CHOLECYSTITIS( Without obstruction) 01/11/2006 06/01/2016 EPIGASTRIC PAIN 01/11/2006 06/01/2016 HEPATITIS C CARRIER--treated with IFN and ribavirin and is in remission (as of 05/21) 05/29/2005 06/01/2016 Conductive hearing loss of combined types 200506/01/2016 Migraine variant 05/29/2005 06/01/2016 CHRONIC BRONCHITIS NOS--related to smoking 05/2906/01/2016 OSTEOARTHROS NOS-OTHER SITE- -OA vs RA treated with NSAIDs in past. 05/29/2005 06/01/2016 Overview: actonel 2009 start from hx in EPIC, fosamax 2011 started Cleft lip, unspecified 01/24/2005 7 documented as of this encounter (statuses as of 10/26/2021) [facility]03-[facility]2016 History of Past illness Narrative* Problem Noted Date Resolved Date Chronic pain syndrome 06/27/2015 06/01/2016 Encounter for long-term (current) use of medicat ions 11/15/2014 06/01/2016 Lumbago 09/02/2014 06/01/2016 Cataract of both eyes 10/26/2013 06/01/2016 Overview: [facility] 10/22/2013 - Combined forms of age-related cataract of both eyes Eating disorder 02/16/2013 06/01/2016 Cervical strain 01/22/2013 06/01/2016 Cervical disc disease 01/22/2013 06/01/2016 Xerosis cutis 09/07/2012 06/01/2016 Arthritis of left knee 02/15/2012 7 Leg ulcer, left 02/15/2012 06/01/2016 Closed fracture of lateral malleolus 11/23/2011 06/01/2016 Contusion of toe 11/23/2011 06/01/2016 Capsulitis 11/06/2011 06/01/2016 Pruritus of forearm 09/07/2011 06/01/2016 Pruritus - disorder 09/07/2011 06/01/2016 Eczematous dermatitis 09/07/2011 06/01/2016 Lichenoid dermatitis 09/07/2011 06/01/2016 Excoriation 09/07/2011 06/01/2016 Nasal septal deviation 08/29/2011 7 Orbital mass 07/15/2011 06/01/2016 Obesity 05/09/2011 01/14/2014 Last Assessment & Plan: Pt disappointed in the amount of weight loss she has had over the past month while on the prescription Adipex 37.5mg daily. States she eats oatmeal in the morning every other day and at night has 1/3 of a bag of kettlecorn popcorn. States she does not eat anything else throughout the day. Ms Berg states since she was in her 20's she would control her wt loss by forcing herself to vomit after eating so she could eat more. Denies having an eating disorder and denies recent forced vomiting. Denies any current exercise routine and states she does not like to exercise. Her goal wt is 115. States she has a good appetite but limits her intake. She says she has a bad sweet tooth especially for chocolate. Cervical vertebral fracture 05/07/201105/16 Muscle spasms of head or neck 08/26/2009 Pain in joint, pelvic region and thigh 0 06/01/2016 Other chronic cystitis 12/21/2008 7 Hypertonicity of bladder 12/21/2008 017 PLANTAR Fasciitis 08/14/2006 06/01/2016 Sprain of neck 04/17/2006 06/01/2016 Rheumatoid arthritis 03/18/2006 06/01/2016 CHOLELITHIASIS SEE ALSO GALL BLADD WITHOUT CHOLECYSTITIS( Without obstruction) 01/11/2006 06/01/2016 EPIGASTRIC PAIN 01/11/2006 06/01/2016 HEPATITIS C CARRIER--treated with IFN and ribavirin and is in remission (as of 05/21) 05/29/2005 06/01/2016 Conductive hearing loss of combined types 200506/01/2016 Migraine variant 05/29/2005 06/01/2016 CHRONIC BRONCHITIS NOS--related to smoking 05/2906/01/2016 OSTEOARTHROS NOS-OTHER SITE- -OA vs RA treated with NSAIDs in past. 05/29/2005 06/01/2016 Overview: actonel 2009 start from hx in EPIC, fosamax 2011 started Cleft lip, unspecified 01/24/2005 7 documented as of this encounter (statuses as of 10/26/2021) [facility]03-[facility]2016 History of Past illness Narrative* Problem Noted Date Resolved Date Chronic pain syndrome 06/27/2015 06/01/2016 Encounter for long-term (current) use of medicat ions 11/15/2014 06/01/2016 Lumbago 09/02/2014 06/01/2016 Cataract of both eyes 10/26/2013 06/01/2016 Overview: [facility] [place] 10/22/2013 - Combined forms of age-related cataract of both eyes Eating disorder 02/16/2013 06/01/2016 Cervical strain 01/22/2013 06/01/2016 Cervical disc disease 01/22/2013 06/01/2016 Xerosis cutis 09/07/2012 06/01/2016 Arthritis of left knee 02/15/2012 7 Leg ulcer, left 02/15/2012 06/01/2016 Closed fracture of lateral malleolus 11/23/2011 06/01/2016 Contusion of toe 11/23/2011 06/01/2016 Capsulitis 11/06/2011 06/01/2016 Pruritus of forearm 09/07/2011 06/01/2016 Pruritus - disorder 09/07/2011 06/01/2016 Eczematous dermatitis 09/07/2011 06/01/2016 Lichenoid dermatitis 09/07/2011 06/01/2016 Excoriation 09/07/2011 06/01/2016 Nasal septal deviation 08/29/2011 7 Orbital mass 07/15/2011 06/01/2016 Obesity 05/09/2011 01/14/2014 Last Assessment & Plan: Pt disappointed in the amount of weight loss she has had over the past month while on the prescription Adipex 37.5mg daily. States she eats oatmeal in the morning every other day and at night has 1/3 of a bag of kettlecorn popcorn. States she does not eat anything else throughout the day. Ms Berg states since she was in her 20's she would control her wt loss by forcing herself to vomit after eating so she could eat more. Denies having an eating disorder and denies recent forced vomiting. Denies any current exercise routine and states she does not like to exercise. Her goal wt is 115. States she has a good appetite but limits her intake. She says she has a bad sweet tooth especially for chocolate. Cervical vertebral fracture 05/07/201105/16 Muscle spasms of head or neck 08/26/2009 Pain in joint, pelvic region and thigh 0 06/01/2016 Other chronic cystitis 12/21/2008 7 Hypertonicity of bladder 12/21/2008 017 PLANTAR Fasciitis 08/14/2006 06/01/2016 Sprain of neck 04/17/2006 06/01/2016 Rheumatoid arthritis 03/18/2006 06/01/2016 CHOLELITHIASIS SEE ALSO GALL BLADD WITHOUT CHOLECYSTITIS( Without obstruction) 01/11/2006 06/01/2016 EPIGASTRIC PAIN 01/11/2006 06/01/2016 HEPATITIS C CARRIER--treated with IFN and ribavirin and is in remission (as of 05/21) 05/29/2005 06/01/2016 Conductive hearing loss of combined types 200506/01/2016 Migraine variant 05/29/2005 06/01/2016 CHRONIC BRONCHITIS NOS--related to smoking 05/2906/01/2016 OSTEOARTHROS NOS-OTHER SITE- -OA vs RA treated with NSAIDs in past. 05/29/2005 06/01/2016 Overview: actonel 2009 start from hx in EPIC, fosamax 2011 started Cleft lip, unspecified 01/24/2005 7 documented as of this encounter (statuses as of 10/27/2021) [facility]2016 History of Past illness Narrative* Problem Noted Date Resolved Date Chronic pain syndrome 06/27/2015 06/01/2016 Encounter for long-term (current) use of medicat ions 11/15/2014 06/01/2016 Lumbago 09/02/2014 06/01/2016 Cataract of both eyes 10/26/2013 06/01/2016 Overview: [facility] [place] 10/22/2013 - Combined forms of age-related cataract of both eyes Eating disorder 02/16/2013 06/01/2016 Cervical strain 01/22/2013 06/01/2016 Cervical disc disease 01/22/2013 06/01/2016 Xerosis cutis 09/07/2012 06/01/2016 Arthritis of left knee 02/15/2012 7 Leg ulcer, left 02/15/2012 06/01/2016 Closed fracture of lateral malleolus 11/23/2011 06/01/2016 Contusion of toe 11/23/2011 06/01/2016 Capsulitis 11/06/2011 06/01/2016 Pruritus of forearm 09/07/2011 06/01/2016 Pruritus - disorder 09/07/2011 06/01/2016 Eczematous dermatitis 09/07/2011 06/01/2016 Lichenoid dermatitis 09/07/2011 06/01/2016 Excoriation 09/07/2011 06/01/2016 Nasal septal deviation 08/29/2011 7 Orbital mass 07/15/2011 06/01/2016 Obesity 05/09/2011 01/14/2014 Last Assessment & Plan: Pt disappointed in the amount of weight loss she has had over the past month while on the prescription Adipex 37.5mg daily. States she eats oatmeal in the morning every other day and at night has 1/3 of a bag of kettlecorn popcorn. States she does not eat anything else throughout the day. Ms Berg states since she was in her 20's she would control her wt loss by forcing herself to vomit after eating so she could eat more. Denies having an eating disorder and denies recent forced vomiting. Denies any current exercise routine and states she does not like to exercise. Her goal wt is 115. States she has a good appetite but limits her intake. She says she has a bad sweet tooth especially for chocolate. Cervical vertebral fracture 05/07/201105/16 Muscle spasms of head or neck 08/26/2009 Pain in joint, pelvic region and thigh 0 06/01/2016 Other chronic cystitis 12/21/2008 7 Hypertonicity of bladder 12/21/2008 017 PLANTAR Fasciitis 08/14/2006 06/01/2016 Sprain of neck 04/17/2006 06/01/2016 Rheumatoid arthritis 03/18/2006 06/01/2016 CHOLELITHIASIS SEE ALSO GALL BLADD WITHOUT CHOLECYSTITIS( Without obstruction) 01/11/2006 06/01/2016 EPIGASTRIC PAIN 01/11/2006 06/01/2016 HEPATITIS C CARRIER--treated with IFN and ribavirin and is in remission (as of 2/06) 05/29/2005 06/01/2016 Conductive hearing loss of combined types 200506/01/2016 Migraine variant 05/29/2005 06/01/2016 CHRONIC BRONCHITIS NOS--related to smoking 05/2906/01/2016 OSTEOARTHROS NOS-OTHER SITE- -OA vs RA treated with NSAIDs in past. 05/29/2005 06/01/2016 Overview: actonel 2009 start from hx in EPIC, fosamax 2011 started Cleft lip, unspecified 01/24/2005 7 documented as of this encounter (statuses as of 10/31/2021) [facility] History of Past illness Narrative* Problem Noted Date Resolved Date Chronic pain syndrome 06/27/2015 06/01/2016 Encounter for long-term (current) use of medicat ions 11/15/2014 06/01/2016 Lumbago 09/02/2014 06/01/2016 Cataract of both eyes 10/26/2013 06/01/2016 Overview: [facility] 10/22/2013 - Combined forms of age-related cataract of both eyes Eating disorder 02/16/2013 06/01/2016 Cervical strain 01/22/2013 06/01/2016 Cervical disc disease 01/22/2013 06/01/2016 Xerosis cutis 09/07/2012 06/01/2016 Arthritis of left knee 02/15/2012 7 Leg ulcer, left 02/15/2012 06/01/2016 Closed fracture of lateral malleolus 11/23/2011 06/01/2016 Contusion of toe 11/23/2011 06/01/2016 Capsulitis 11/06/2011 06/01/2016 Pruritus of forearm 09/07/2011 06/01/2016 Pruritus - disorder 09/07/2011 06/01/2016 Eczematous dermatitis 09/07/2011 06/01/2016 Lichenoid dermatitis 09/07/2011 06/01/2016 Excoriation 09/07/2011 06/01/2016 Nasal septal deviation 08/29/2011 7 Orbital mass 07/15/2011 06/01/2016 Obesity 05/09/2011 01/14/2014 Last Assessment & Plan: Pt disappointed in the amount of weight loss she has had over the past month while on the prescription Adipex 37.5mg daily. States she eats oatmeal in the morning every other day and at night has 1/3 of a bag of kettlecorn popcorn. States she does not eat anything else throughout the day. Ms Berg states since she was in her 20's she would control her wt loss by forcing herself to vomit after eating so she could eat more. Denies having an eating disorder and denies recent forced vomiting. Denies any current exercise routine and states she does not like to exercise. Her goal wt is 115. States she has a good appetite but limits her intake. She says she has a bad sweet tooth especially for chocolate. Cervical vertebral fracture 05/07/201105/16 Muscle spasms of head or neck 08/26/2009 Pain in joint, pelvic region and thigh 0 06/01/2016 Other chronic cystitis 12/21/2008 7 Hypertonicity of bladder 12/21/2008 017 PLANTAR Fasciitis 08/14/2006 06/01/2016 Sprain of neck 04/17/2006 06/01/2016 Rheumatoid arthritis 03/18/2006 06/01/2016 CHOLELITHIASIS SEE ALSO GALL BLADD WITHOUT CHOLECYSTITIS( Without obstruction) 01/11/2006 06/01/2016 EPIGASTRIC PAIN 01/11/2006 06/01/2016 HEPATITIS C CARRIER--treated with IFN and ribavirin and is in remission (as of 05/21) 05/29/2005 06/01/2016 Conductive hearing loss of combined types 200506/01/2016 Migraine variant 05/29/2005 06/01/2016 CHRONIC BRONCHITIS NOS--related to smoking 05/2906/01/2016 OSTEOARTHROS NOS-OTHER SITE- -OA vs RA treated with NSAIDs in past. 05/29/2005 06/01/2016 Overview: actonel 2009 start from hx in EPIC, fosamax 2011 started Cleft lip, unspecified 01/24/2005 7 documented as of this encounter (statuses as of 11/06/2021) [facility]03-14-2016 History of Past illness Narrative* Problem Noted Date Resolved Date Chronic pain syndrome 06/27/2015 06/01/2016 Encounter for long-term (current) use of medicat ions 11/15/2014 06/01/2016 Lumbago 09/02/2014 06/01/2016 Cataract of both eyes 10/26/2013 06/01/2016 Overview: [facility] 10/22/2013 - Combined forms of age-related cataract of both eyes Eating disorder 02/16/2013 06/01/2016 Cervical strain 01/22/2013 06/01/2016 Cervical disc disease 01/22/2013 06/01/2016 Xerosis cutis 09/07/2012 06/01/2016 Arthritis of left knee 02/15/2012 7 Leg ulcer, left 02/15/2012 06/01/2016 Closed fracture of lateral malleolus 11/23/2011 06/01/2016 Contusion of toe 11/23/2011 06/01/2016 Capsulitis 11/06/2011 06/01/2016 Pruritus of forearm 09/07/2011 06/01/2016 Pruritus - disorder 09/07/2011 06/01/2016 Eczematous dermatitis 09/07/2011 06/01/2016 Lichenoid dermatitis 09/07/2011 06/01/2016 Excoriation 09/07/2011 06/01/2016 Nasal septal deviation 08/29/2011 7 Orbital mass 07/15/2011 06/01/2016 Obesity 05/09/2011 01/14/2014 Last Assessment & Plan: Pt disappointed in the amount of weight loss she has had over the past month while on the prescription Adipex 37.5mg daily. States she eats oatmeal in the morning every other day and at night has 1/3 of a bag of kettlecorn popcorn. States she does not eat anything else throughout the day. Ms Berg states since she was in her 20's she would control her wt loss by forcing herself to vomit after eating so she could eat more. Denies having an eating disorder and denies recent forced vomiting. Denies any current exercise routine and states she does not like to exercise. Her goal wt is 115. States she has a good appetite but limits her intake. She says she has a bad sweet tooth especially for chocolate. Cervical vertebral fracture 05/07/201105/16 Muscle spasms of head or neck 08/26/2009 Pain in joint, pelvic region and thigh 0 06/01/2016 Other chronic cystitis 12/21/2008 7 Hypertonicity of bladder 12/21/2008 017 PLANTAR Fasciitis 08/14/2006 06/01/2016 Sprain of neck 04/17/2006 06/01/2016 Rheumatoid arthritis 03/18/2006 06/01/2016 CHOLELITHIASIS SEE ALSO GALL BLADD WITHOUT CHOLECYSTITIS( Without obstruction) 01/11/2006 06/01/2016 EPIGASTRIC PAIN 01/11/2006 06/01/2016 HEPATITIS C CARRIER--treated with IFN and ribavirin and is in remission (as of 05/21) 05/29/2005 06/01/2016 Conductive hearing loss of combined types 200506/01/2016 Migraine variant 05/29/2005 06/01/2016 CHRONIC BRONCHITIS NOS--related to smoking 05/2906/01/2016 OSTEOARTHROS NOS-OTHER SITE- -OA vs RA treated with NSAIDs in past. 05/29/2005 06/01/2016 Overview: actonel 2009 start from hx in EPIC, fosamax 2011 started Cleft lip, unspecified 01/24/2005 7 documented as of this encounter (statuses as of 11/07/2021) [facility]03[facility]2016 History of Past illness Narrative* Problem Noted Date Resolved Date Chronic pain syndrome 06/27/2015 06/01/2016 Encounter for long-term (current) use of medicat ions 11/15/2014 06/01/2016 Lumbago 09/02/2014 06/01/2016 Cataract of both eyes 10/26/2013 06/01/2016 Overview: [facility] 10/22/2013 - Combined forms of age-related cataract of both eyes Eating disorder 02/16/2013 06/01/2016 Cervical strain 01/22/2013 06/01/2016 Cervical disc disease 01/22/2013 06/01/2016 Xerosis cutis 09/07/2012 06/01/2016 Arthritis of left knee 02/15/2012 7 Leg ulcer, left 02/15/2012 06/01/2016 Closed fracture of lateral malleolus 11/23/2011 06/01/2016 Contusion of toe 11/23/2011 06/01/2016 Capsulitis 11/06/2011 06/01/2016 Pruritus of forearm 09/07/2011 06/01/2016 Pruritus - disorder 09/07/2011 06/01/2016 Eczematous dermatitis 09/07/2011 06/01/2016 Lichenoid dermatitis 09/07/2011 06/01/2016 Excoriation 09/07/2011 06/01/2016 Nasal septal deviation 08/29/2011 7 Orbital mass 07/15/2011 06/01/2016 Obesity 05/09/2011 01/14/2014 Last Assessment & Plan: Pt disappointed in the amount of weight loss she has had over the past month while on the prescription Adipex 37.5mg daily. States she eats oatmeal in the morning every other day and at night has 1/3 of a bag of kettlecorn popcorn. States she does not eat anything else throughout the day. Ms Berg states since she was in her 20's she would control her wt loss by forcing herself to vomit after eating so she could eat more. Denies having an eating disorder and denies recent forced vomiting. Denies any current exercise routine and states she does not like to exercise. Her goal wt is 115. States she has a good appetite but limits her intake. She says she has a bad sweet tooth especially for chocolate. Cervical vertebral fracture 05/07/201105/16 Muscle spasms of head or neck 08/26/2009 Pain in joint, pelvic region and thigh 0 06/01/2016 Other chronic cystitis 12/21/2008 7 Hypertonicity of bladder 12/21/2008 017 PLANTAR Fasciitis 08/14/2006 06/01/2016 Sprain of neck 04/17/2006 06/01/2016 Rheumatoid arthritis 03/18/2006 06/01/2016 CHOLELITHIASIS SEE ALSO GALL BLADD WITHOUT CHOLECYSTITIS( Without obstruction) 01/11/2006 06/01/2016 EPIGASTRIC PAIN 01/11/2006 06/01/2016 HEPATITIS C CARRIER--treated with IFN and ribavirin and is in remission (as of 05/21) 05/29/2005 06/01/2016 Conductive hearing loss of combined types 200506/01/2016 Migraine variant 05/29/2005 06/01/2016 CHRONIC BRONCHITIS NOS--related to smoking 05/2906/01/2016 OSTEOARTHROS NOS-OTHER SITE- -OA vs RA treated with NSAIDs in past. 05/29/2005 06/01/2016 Overview: actonel 2009 start from hx in EPIC, fosamax 2011 started Cleft lip, unspecified 01/24/2005 7 documented as of this encounter (statuses as of 11/13/2021) [facility]03[facility]2016 History of Past illness Narrative* Problem Noted Date Resolved Date Chronic pain syndrome 06/27/2015 06/01/2016 Encounter for long-term (current) use of medicat ions 11/15/2014 06/01/2016 Lumbago 09/02/2014 06/01/2016 Cataract of both eyes 10/26/2013 06/01/2016 Overview: [facility] 10/22/2013 - Combined forms of age-related cataract of both eyes Eating disorder 02/16/2013 06/01/2016 Cervical strain 01/22/2013 06/01/2016 Cervical disc disease 01/22/2013 06/01/2016 Xerosis cutis 09/07/2012 06/01/2016 Arthritis of left knee 02/15/2012 7 Leg ulcer, left 02/15/2012 06/01/2016 Closed fracture of lateral malleolus 11/23/2011 06/01/2016 Contusion of toe 11/23/2011 06/01/2016 Capsulitis 11/06/2011 06/01/2016 Pruritus of forearm 09/07/2011 06/01/2016 Pruritus - disorder 09/07/2011 06/01/2016 Eczematous dermatitis 09/07/2011 06/01/2016 Lichenoid dermatitis 09/07/2011 06/01/2016 Excoriation 09/07/2011 06/01/2016 Nasal septal deviation 08/29/2011 7 Orbital mass 07/15/2011 06/01/2016 Obesity 05/09/2011 01/14/2014 Last Assessment & Plan: Pt disappointed in the amount of weight loss she has had over the past month while on the prescription Adipex 37.5mg daily. States she eats oatmeal in the morning every other day and at night has 1/3 of a bag of kettlecorn popcorn. States she does not eat anything else throughout the day. Ms Berg states since she was in her 20's she would control her wt loss by forcing herself to vomit after eating so she could eat more. Denies having an eating disorder and denies recent forced vomiting. Denies any current exercise routine and states she does not like to exercise. Her goal wt is 115. States she has a good appetite but limits her intake. She says she has a bad sweet tooth especially for chocolate. Cervical vertebral fracture 05/07/201105/16 Muscle spasms of head or neck 08/26/2009 Pain in joint, pelvic region and thigh 0 06/01/2016 Other chronic cystitis 12/21/2008 7 Hypertonicity of bladder 12/21/2008 017 PLANTAR Fasciitis 08/14/2006 06/01/2016 Sprain of neck 04/17/2006 06/01/2016 Rheumatoid arthritis 03/18/2006 06/01/2016 CHOLELITHIASIS SEE ALSO GALL BLADD WITHOUT CHOLECYSTITIS( Without obstruction) 01/11/2006 06/01/2016 EPIGASTRIC PAIN 01/11/2006 06/01/2016 HEPATITIS C CARRIER--treated with IFN and ribavirin and is in remission (as of 05/21) 05/29/2005 06/01/2016 Conductive hearing loss of combined types 200506/01/2016 Migraine variant 05/29/2005 06/01/2016 CHRONIC BRONCHITIS NOS--related to smoking 05/2906/01/2016 OSTEOARTHROS NOS-OTHER SITE- -OA vs RA treated with NSAIDs in past. 05/29/2005 06/01/2016 Overview: actonel 2010 start from hx in EPIC, fosamax 2011 started Cleft lip, unspecified 01/24/2005 7 documented as of this encounter (statuses as of 11/20/2021) [facility]03[facility]2016 History of Past illness Narrative* Problem Noted Date Resolved Date Chronic pain syndrome 06/27/2015 06/01/2016 Encounter for long-term (current) use of medicat ions 11/15/2014 06/01/2016 Lumbago 09/02/2014 06/01/2016 Cataract of both eyes 10/26/2013 06/01/2016 Overview: [facility] 10/22/2013 - Combined forms of age-related cataract of both eyes Eating disorder 02/16/2013 06/01/2016 Cervical strain 01/22/2013 06/01/2016 Cervical disc disease 01/22/2013 06/01/2016 Xerosis cutis 09/07/2012 06/01/2016 Arthritis of left knee 02/15/2012 7 Leg ulcer, left 02/15/2012 06/01/2016 Closed fracture of lateral malleolus 11/23/2011 06/01/2016 Contusion of toe 11/23/2011 06/01/2016 Capsulitis 11/06/2011 06/01/2016 Pruritus of forearm 09/07/2011 06/01/2016 Pruritus - disorder 09/07/2011 06/01/2016 Eczematous dermatitis 09/07/2011 06/01/2016 Lichenoid dermatitis 09/07/2011 06/01/2016 Excoriation 09/07/2011 06/01/2016 Nasal septal deviation 08/29/2011 7 Orbital mass 07/15/2011 06/01/2016 Obesity 05/09/2011 01/14/2014 Last Assessment & Plan: Pt disappointed in the amount of weight loss she has had over the past month while on the prescription Adipex 37.5mg daily. States she eats oatmeal in the morning every other day and at night has 1/3 of a bag of kettlecorn popcorn. States she does not eat anything else throughout the day. Ms Berg states since she was in her 20's she would control her wt loss by forcing herself to vomit after eating so she could eat more. Denies having an eating disorder and denies recent forced vomiting. Denies any current exercise routine and states she does not like to exercise. Her goal wt is 115. States she has a good appetite but limits her intake. She says she has a bad sweet tooth especially for chocolate. Cervical vertebral fracture 05/07/201105/16 Muscle spasms of head or neck 08/26/2009 Pain in joint, pelvic region and thigh 0 06/01/2016 Other chronic cystitis 12/21/2008 7 Hypertonicity of bladder 12/21/2008 017 PLANTAR Fasciitis 08/14/2006 06/01/2016 Sprain of neck 04/17/2006 06/01/2016 Rheumatoid arthritis 03/18/2006 06/01/2016 CHOLELITHIASIS SEE ALSO GALL BLADD WITHOUT CHOLECYSTITIS( Without obstruction) 01/11/2006 06/01/2016 EPIGASTRIC PAIN 01/11/2006 06/01/2016 HEPATITIS C CARRIER--treated with IFN and ribavirin and is in remission (as of 05/21) 05/29/2005 06/01/2016 Conductive hearing loss of combined types 200506/01/2016 Migraine variant 05/29/2005 06/01/2016 CHRONIC BRONCHITIS NOS--related to smoking 05/2906/01/2016 OSTEOARTHROS NOS-OTHER SITE- -OA vs RA treated with NSAIDs in past. 05/29/2005 06/01/2016 Overview: actonel 2009 start from hx in EPIC, fosamax 2011 started Cleft lip, unspecified 01/24/2005 7 documented as of this encounter (statuses as of 12/01/2021) [facility]03[facility]2016 History of Past illness Narrative* Problem Noted Date Resolved Date Chronic pain syndrome 06/27/2015 06/01/2016 Encounter for long-term (current) use of medicat ions 11/15/2014 06/01/2016 Lumbago 09/02/2014 06/01/2016 Cataract of both eyes 10/26/2013 06/01/2016 Overview: [facility] 10/22/2013 - Combined forms of age-related cataract of both eyes Eating disorder 02/16/2013 06/01/2016 Cervical strain 01/22/2013 06/01/2016 Cervical disc disease 01/22/2013 06/01/2016 Xerosis cutis 09/07/2012 06/01/2016 Arthritis of left knee 02/15/2012 7 Leg ulcer, left 02/15/2012 06/01/2016 Closed fracture of lateral malleolus 11/23/2011 06/01/2016 Contusion of toe 11/23/2011 06/01/2016 Capsulitis 11/06/2011 06/01/2016 Pruritus of forearm 09/07/2011 06/01/2016 Pruritus - disorder 09/07/2011 06/01/2016 Eczematous dermatitis 09/07/2011 06/01/2016 Lichenoid dermatitis 09/07/2011 06/01/2016 Excoriation 09/07/2011 06/01/2016 Nasal septal deviation 08/29/2011 7 Orbital mass 07/15/2011 06/01/2016 Obesity 05/09/2011 01/14/2014 Last Assessment & Plan: Pt disappointed in the amount of weight loss she has had over the past month while on the prescription Adipex 37.5mg daily. States she eats oatmeal in the morning every other day and at night has 1/3 of a bag of kettlecorn popcorn. States she does not eat anything else throughout the day. Ms Berg states since she was in her 20's she would control her wt loss by forcing herself to vomit after eating so she could eat more. Denies having an eating disorder and denies recent forced vomiting. Denies any current exercise routine and states she does not like to exercise. Her goal wt is 115. States she has a good appetite but limits her intake. She says she has a bad sweet tooth especially for chocolate. Cervical vertebral fracture 05/07/201105/16 Muscle spasms of head or neck 08/26/2009 Pain in joint, pelvic region and thigh 0 06/01/2016 Other chronic cystitis 12/21/2008 7 Hypertonicity of bladder 12/21/2008 02/17/2 017 PLANTAR Fasciitis 08/14/2006 06/01/2016 Sprain of neck 04/17/2006 06/01/2016 Rheumatoid arthritis 03/18/2006 06/01/2016 CHOLELITHIASIS SEE ALSO GALL BLADD WITHOUT CHOLECYSTITIS( Without obstruction) 01/11/2006 06/01/2016 EPIGASTRIC PAIN 01/11/2006 06/01/2016 HEPATITIS C CARRIER--treated with IFN and ribavirin and is in remission (as of 05/21) 05/29/2005 06/01/2016 Conductive hearing loss of combined types 200506/01/2016 Migraine variant 05/29/2005 06/01/2016 CHRONIC BRONCHITIS NOS--related to smoking 05/2906/01/2016 OSTEOARTHROS NOS-OTHER SITE- -OA vs RA treated with NSAIDs in past. 05/29/2005 06/01/2016 Overview: actonel 2009 start from hx in EPIC, fosamax 2011 started Cleft lip, unspecified 01/24/2005 7 documented as of this encounter (statuses as of 12/05/2021) [facility]03[facility]2016 History of Past illness Narrative* Problem Noted Date Resolved Date Chronic pain syndrome 06/27/2015 06/01/2016 Encounter for long-term (current) use of medicat ions 11/15/2014 06/01/2016 Lumbago 09/02/2014 06/01/2016 Cataract of both eyes 10/26/2013 06/01/2016 Overview: [facility] 10/22/2013 - Combined forms of age-related cataract of both eyes Eating disorder 02/16/2013 06/01/2016 Cervical strain 01/22/2013 06/01/2016 Cervical disc disease 01/22/2013 06/01/2016 Xerosis cutis 09/07/2012 06/01/2016 Arthritis of left knee 02/15/2012 7 Leg ulcer, left 02/15/2012 06/01/2016 Closed fracture of lateral malleolus 11/23/2011 06/01/2016 Contusion of toe 11/23/2011 06/01/2016 Capsulitis 11/06/2011 06/01/2016 Pruritus of forearm 09/07/2011 06/01/2016 Pruritus - disorder 09/07/2011 06/01/2016 Eczematous dermatitis 09/07/2011 06/01/2016 Lichenoid dermatitis 09/07/2011 06/01/2016 Excoriation 09/07/2011 06/01/2016 Nasal septal deviation 08/29/2011 7 Orbital mass 07/15/2011 06/01/2016 Obesity 05/09/2011 01/14/2014 Last Assessment & Plan: Pt disappointed in the amount of weight loss she has had over the past month while on the prescription Adipex 37.5mg daily. States she eats oatmeal in the morning every other day and at night has 1/3 of a bag of kettlecorn popcorn. States she does not eat anything else throughout the day. Ms Berg states since she was in her 20's she would control her wt loss by forcing herself to vomit after eating so she could eat more. Denies having an eating disorder and denies recent forced vomiting. Denies any current exercise routine and states she does not like to exercise. Her goal wt is 115. States she has a good appetite but limits her intake. She says she has a bad sweet tooth especially for chocolate. Cervical vertebral fracture 05/07/201105/16 Muscle spasms of head or neck 08/26/2009 Pain in joint, pelvic region and thigh 0 06/01/2016 Other chronic cystitis 12/21/2008 7 Hypertonicity of bladder 12/21/2008 017 PLANTAR Fasciitis 08/14/2006 06/01/2016 Sprain of neck 04/17/2006 06/01/2016 Rheumatoid arthritis 03/18/2006 06/01/2016 CHOLELITHIASIS SEE ALSO GALL BLADD WITHOUT CHOLECYSTITIS( Without obstruction) 01/11/2006 06/01/2016 EPIGASTRIC PAIN 01/11/2006 06/01/2016 HEPATITIS C CARRIER--treated with IFN and ribavirin and is in remission (as of 05/21) 05/29/2005 06/01/2016 Conductive hearing loss of combined types 200506/01/2016 Migraine variant 05/29/2005 06/01/2016 CHRONIC BRONCHITIS NOS--related to smoking 05/2906/01/2016 OSTEOARTHROS NOS-OTHER SITE- -OA vs RA treated with NSAIDs in past. 05/29/2005 06/01/2016 Overview: actonel 2009 start from hx in EPIC, fosamax 2011 started Cleft lip, unspecified 01/24/2005 7 documented as of this encounter (statuses as of 12/28/2021) [facility]03[facility]2016 History of Past illness Narrative* Problem Noted Date Resolved Date Chronic pain syndrome 06/27/2015 06/01/2016 Encounter for long-term (current) use of medicat ions 11/15/2014 06/01/2016 Lumbago 09/02/2014 06/01/2016 Cataract of both eyes 10/26/2013 06/01/2016 Overview: [facility] 10/22/2013 - Combined forms of age-related cataract of both eyes Eating disorder 02/16/2013 06/01/2016 Cervical strain 01/22/2013 06/01/2016 Cervical disc disease 01/22/2013 06/01/2016 Xerosis cutis 09/07/2012 06/01/2016 Arthritis of left knee 02/15/2012 7 Leg ulcer, left 02/15/2012 06/01/2016 Closed fracture of lateral malleolus 11/23/2011 06/01/2016 Contusion of toe 11/23/2011 06/01/2016 Capsulitis 11/06/2011 06/01/2016 Pruritus of forearm 09/07/2011 06/01/2016 Pruritus - disorder 09/07/2011 06/01/2016 Eczematous dermatitis 09/07/2011 06/01/2016 Lichenoid dermatitis 09/07/2011 06/01/2016 Excoriation 09/07/2011 06/01/2016 Nasal septal deviation 08/29/2011 7 Orbital mass 07/15/2011 06/01/2016 Obesity 05/09/2011 01/14/2014 Last Assessment & Plan: Pt disappointed in the amount of weight loss she has had over the past month while on the prescription Adipex 37.5mg daily. States she eats oatmeal in the morning every other day and at night has 1/3 of a bag of kettlecorn popcorn. States she does not eat anything else throughout the day. Ms Otis states since she was in her 20's she would control her wt loss by forcing herself to vomit after eating so she could eat more. Denies having an eating disorder and denies recent forced vomiting. Denies any current exercise routine and states she does not like to exercise. Her goal wt is 115. States she has a good appetite but limits her intake. She says she has a bad sweet tooth especially for chocolate. Cervical vertebral fracture 05/07/201105/16 Muscle spasms of head or neck 08/26/2009 Pain in joint, pelvic region and thigh 0 06/01/2016 Other chronic cystitis 12/21/2008 7 Hypertonicity of bladder 12/21/2008 017 PLANTAR Fasciitis 08/14/2006 06/01/2016 Sprain of neck 04/17/2006 06/01/2016 Rheumatoid arthritis 03/18/2006 06/01/2016 CHOLELITHIASIS SEE ALSO GALL BLADD WITHOUT CHOLECYSTITIS( Without obstruction) 01/11/2006 06/01/2016 EPIGASTRIC PAIN 01/11/2006 06/01/2016 HEPATITIS C CARRIER--treated with IFN and ribavirin and is in remission (as of 05/21) 05/29/2005 06/01/2016 Conductive hearing loss of combined types 200506/01/2016 Migraine variant 05/29/2005 06/01/2016 CHRONIC BRONCHITIS NOS--related to smoking 05/2906/01/2016 OSTEOARTHROS NOS-OTHER SITE- -OA vs RA treated with NSAIDs in past. 05/29/2005 06/01/2016 Overview: actonel 2009 start from hx in EPIC, fosamax 2011 started Cleft lip, unspecified 01/24/2005 7 documented as of this encounter (statuses as of 12/28/2021) [facility] History of Past illness Narrative* Problem Noted Date Resolved Date Chronic pain syndrome 06/27/2015 06/01/2016 Encounter for long-term (current) use of medicat ions 11/15/2014 06/01/2016 Lumbago 09/02/2014 06/01/2016 Cataract of both eyes 10/26/2013 06/01/2016 Overview: [facility] 10/22/2013 - Combined forms of age-related cataract of both eyes Eating disorder 02/16/2013 06/01/2016 Cervical strain 01/22/2013 06/01/2016 Cervical disc disease 01/22/2013 06/01/2016 Xerosis cutis 09/07/2012 06/01/2016 Arthritis of left knee 02/15/2012 7 Leg ulcer, left 02/15/2012 06/01/2016 Closed fracture of lateral malleolus 11/23/2011 06/01/2016 Contusion of toe 11/23/2011 06/01/2016 Capsulitis 11/06/2011 06/01/2016 Pruritus of forearm 09/07/2011 06/01/2016 Pruritus - disorder 09/07/2011 06/01/2016 Eczematous dermatitis 09/07/2011 06/01/2016 Lichenoid dermatitis 09/07/2011 06/01/2016 Excoriation 09/07/2011 06/01/2016 Nasal septal deviation 08/29/2011 7 Orbital mass 07/15/2011 06/01/2016 Obesity 05/09/2011 01/14/2014 Last Assessment & Plan: Pt disappointed in the amount of weight loss she has had over the past month while on the prescription Adipex 37.5mg daily. States she eats oatmeal in the morning every other day and at night has 1/3 of a bag of kettlecorn popcorn. States she does not eat anything else throughout the day. Ms Berg states since she was in her 20's she would control her wt loss by forcing herself to vomit after eating so she could eat more. Denies having an eating disorder and denies recent forced vomiting. Denies any current exercise routine and states she does not like to exercise. Her goal wt is 115. States she has a good appetite but limits her intake. She says she has a bad sweet tooth especially for chocolate. Cervical vertebral fracture 05/07/201105/16 Muscle spasms of head or neck 08/26/2009 Pain in joint, pelvic region and thigh 0 06/01/2016 Other chronic cystitis 12/21/2008 7 Hypertonicity of bladder 12/21/2008 017 PLANTAR Fasciitis 08/14/2006 06/01/2016 Sprain of neck 04/17/2006 06/01/2016 Rheumatoid arthritis 03/18/2006 06/01/2016 CHOLELITHIASIS SEE ALSO GALL BLADD WITHOUT CHOLECYSTITIS( Without obstruction) 01/11/2006 06/01/2016 HEPATITIS C CARRIER--treated with IFN and ribavirin and is in remission (as of 05/21) 05/29/2005 06/01/2016 Conductive hearing loss of combined types 200506/01/2016 Migraine variant 05/29/2005 06/01/2016 CHRONIC BRONCHITIS NOS--related to smoking 05/2906/01/2016 OSTEOARTHROS NOS-OTHER SITE- -OA vs RA treated with NSAIDs in past. 05/29/2005 06/01/2016 Overview: actonel 2009 start from hx in EPIC, fosamax 2011 started Cleft lip, unspecified 01/24/2005 7 documented as of this encounter (statuses as of 01/15/2022) [facility] History of Past illness Narrative* Problem Noted Date Resolved Date Chronic pain syndrome 06/27/2015 06/01/2016 Encounter for long-term (current) use of medicat ions 11/15/2014 06/01/2016 Lumbago 09/02/2014 06/01/2016 Cataract of both eyes 10/26/2013 06/01/2016 Overview: [facility] 10/22/2013 - Combined forms of age-related cataract of both eyes Eating disorder 02/16/2013 06/01/2016 Cervical strain 01/22/2013 06/01/2016 Cervical disc disease 01/22/2013 06/01/2016 Xerosis cutis 09/07/2012 06/01/2016 Arthritis of left knee 02/15/2012 7 Leg ulcer, left 02/15/2012 06/01/2016 Closed fracture of lateral malleolus 11/23/2011 06/01/2016 Contusion of toe 11/23/2011 06/01/2016 Capsulitis 11/06/2011 06/01/2016 Pruritus of forearm 09/07/2011 06/01/2016 Pruritus - disorder 09/07/2011 06/01/2016 Eczematous dermatitis 09/07/2011 06/01/2016 Lichenoid dermatitis 09/07/2011 06/01/2016 Excoriation 09/07/2011 06/01/2016 Nasal septal deviation 08/29/2011 7 Orbital mass 07/15/2011 06/01/2016 Obesity 05/09/2011 01/14/2014 Last Assessment & Plan: Pt disappointed in the amount of weight loss she has had over the past month while on the prescription Adipex 37.5mg daily. States she eats oatmeal in the morning every other day and at night has 1/3 of a bag of kettlecorn popcorn. States she does not eat anything else throughout the day. Ms Berg states since she was in her 20's she would control her wt loss by forcing herself to vomit after eating so she could eat more. Denies having an eating disorder and denies recent forced vomiting. Denies any current exercise routine and states she does not like to exercise. Her goal wt is 115. States she has a good appetite but limits her intake. She says she has a bad sweet tooth especially for chocolate. Cervical vertebral fracture 05/07/201105/16 Muscle spasms of head or neck 08/26/2009 Pain in joint, pelvic region and thigh 0 06/01/2016 Other chronic cystitis 12/21/2008 7 Hypertonicity of bladder 12/21/2008 017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 IV complications by throughout certification period. SN IV THERAPY No Interventions Intervention Associated Problem/Goal Status Variance Visit Notes EQUAL OPPORTUNITY ASSISTANT evaluation and treatment Description: EQUAL OPPORTUNITY ASSISTANT Referral eval and treat for Community Resources and patient assist with Advance Directives. Problem:EQUAL OPPORTUNITY ASSISTANT Referral Goal:Patient will be referred to additional discipline as needed Completed Instruct on individual fall risk factors and strategies to prevent falls and injuries caused by falls. Problem:Risk for Falls Goal:Manage Risk for falls Completed SN: Patient instructed on Eliminating Environmental Hazards: Keep pathways clear and Keep pets out of pathways TPN Instruct patient on TPN Take down procedure Description: TPN Take-down procedure: Instruct Patient/Caregiver on the following: Stopping infusion pump when infusion complete; disconnecting IV tubing set; flushing as ordered by physician; disposing waste; checking and recording daily temperature, weight, I&O and urine glucose and to report a weight gain or loss of more than 1 pound in 2 consecutive days, as ordered by physician; removing TPN bag from refrigerator 8-12 hours before next infusion. Problem:SN IV THERAPY Goal:Patient/Caregive r will remain free of IV therapy complications Completed TPN Instruct patient/caregiver on TPN lump room supervisor procedure Description: TPN Hook-up procedure: Verify patient identity using name and . Confirm physician orders for home TPN administration and verify bag label with order for accuracy. Instruct patient on the following: Hand hygiene; assembling and preparing equipment on a clean surface; injecting additives into the TPN bag prior to infusion per physician order; using appropriate size Micron filter tubing TPN with lipids use 1.2 micron filter; using infusion pump to administer TPN; using gravity tubing with control-dial to administer hydration fluids as ordered by physician. Problem:SN IV THERAPY Goal:Patient/Caregive r will remain free of IV therapy complications Completed Instruct and educate on knowledge deficits Problem:SN Learning Assessment Goal:Demonstrate understanding of education Completed patient verbalize and/or demonstrate understanding of nursing education completed today. Education methods include: verbal cues, tactile cues, written instructions, visual cues and teach back. Further education required to improve knowledge and compliance with infusion care management. SPO2 Description: Notify Dr. Lizbeth Pool if pulse ox is <92% at rest. Problem:Physician Specific Parameters Goal:Patient to maintain parameters within physician-specified ranges throughout certification period Completed Instruct patient/cargiver on management of infusion and access device Problem:SN IV THERAPY Goal:Patient/Caregive r will remain free of IV therapy complications Completed patient instructed on the following: name, purpose and goal of infusion therapy, how to contact [facility], how and when to contact the pharmacy, aseptic handling and maintaining a clean area for infusion therapy supplies, preparation and administration of infusion, safe handling, storage and disposal of infusion therapy supplies, medications, flushes and hazardous waste and flushing the venous access device [facility] Visit Details Visit Type -SN IV OC 2 Discipline -Assisted Problems Problem Description Start Date Status Goals Interve ntions Risk for Falls Disciplines: Skilled Services 02/11/2022 Active 1 goal linked to scheduled/document ed intervention 1 goal intervention scheduled/documente d in this visit Pain Disciplines: Skilled Services 02/11/2022 Active 1 goal linked to scheduled/document ed intervention 1 goal intervention scheduled/documente d in this visit SN IV THERAPY Disciplines: SN 02/11/2022 Active 1 goal linked to scheduled/document ed intervention 2 goal interventions scheduled/documente d in this visit SN Learning Assessment Disciplines: SN 02/11/2022 Active 1 goal linked to scheduled/document ed intervention 1 goal intervention scheduled/documente d in this visit Medication Education Disciplines: Skilled Services 02/12/2022 Active 1 goal linked to scheduled/document ed intervention 1 goal intervention scheduled/documente d in this visit Sepsis Disciplines: Skilled Services 02/12/2022 Active 1 goal linked to scheduled/document ed intervention 1 goal intervention scheduled/documente d in this visit Physician Specific Parameters Disciplines: Skilled Services 02/12/2022 Active 1 goal linked to scheduled/document ed intervention 1 goal intervention scheduled/documente d in this visit Nutrition/Hydra tion Disciplines: Skilled Services 02/12/2022 Active 1 goal linked to scheduled/document ed intervention 1 goal intervention scheduled/documente d in this visit High Risk Medications Disciplines: Skilled Services 02/12/2022 Active 1 goal linked to scheduled/document ed intervention 1 goal intervention scheduled/documente d in this visit SN IV THERAPY Disciplines: SN 02/12/2022 Active 1 goal linked to scheduled/document ed intervention 2 goal interventions scheduled/documente d in this visit SN IV THERAPY Disciplines: SN 02/11/2022 Active 1 goal linked to scheduled/document ed intervention 3 goal interventions scheduled/documente d in this visit Goals Goal Associated Problem Outcome Goal Met? Visit Notes Manage Risk for falls Description: Patient/caregiver will verbalize knowledge of individualized fall prevention strategies by 04/11/22. Risk for Falls No Manage Pain Description: Patient/caregiver will verbalize knowledge and understanding of appropriate techniques to control pain, including pain medication. Patient will verbalize or demonstrate an acceptable level of pain as evidenced by a pain score of <5/10 and improvement in ability to perform activities of daily living to be achieved by 03/14/22. Pain No Patient/Caregiver will remain free of IV therapy complications Description: Patient/caregiver will verbalize understanding of infusion therapy & demonstrate appropriate access device management as evidenced by patient remaining free of IV complications by throughout certification period. SN IV THERAPY No Demonstrate understanding of education Description: Patient and/or caregiver will verbalize understanding of educational instruction provided throughout certification period. SN Learning Assessment No Patient/caregiver will demonstrate ability to obtain, store, identify and administer ordered medications, keep accurate medication list in home, and adhere to medication schedule Description: Patient/caregiver will demonstrate ability to obtain, store, identify and administer ordered medications, keep accurate medication list in home, and adhere to medication schedule by 02/26/22. Medication Education No Patient/caregiver will be able to identify and report symptoms of sepsis Description: Patient/caregiver will be able to identify signs/symptoms of sepsis infection and will verbalize actions to take if suspected by 02/26/22. Sepsis No Patient to maintain parameters within physician-specified ranges throughout certification period Physician Specific Parameters No Manage Nutrition/Hydration Description: Patient/caregiver will verbalize/demonstrate knowledge of prescribed diet and/or healthy nutrition to be achieved by 02/26/22. Nutrition/Hydration No Patient/caregiver will teach back high risk medication side effect and precaution education High Risk Medications No Patient/Caregiver will remain free of IV therapy complications Description: Patient/caregiver will verbalize understanding of infusion therapy & demonstrate appropriate access device management as evidenced by patient remaining free of IV complications by throughout certification period. SN IV THERAPY No Patient/Caregiver will remain free of IV therapy complications Description: Patient/caregiver will verbalize understanding of infusion therapy & demonstrate appropriate access device management as evidenced by patient remaining free of IV complications by throughout certification period. SN IV THERAPY No Interventions Intervention Associated Problem/Goal Status Variance Visit Notes Instruct on individual fall risk factors and strategies to prevent falls and injuries caused by falls. Problem:Risk for Falls Goal:Manage Risk for falls Completed SN: Patient and Caregiver instructed on Eliminating Environmental Hazards: Keep pathways clear, Keep pets out of pathways, Remove unsafe rugs, Move furniture from pathways and Keep rooms and walkways well lit Managing Cognitive Impairment/Depression: Recommended use of visual cues/reminders for safety Instruct on pain and instruct on strategies to control pain Problem:Pain Goal:Manage Pain Completed patient instructed on techniques to control pain including Pharmacological measures. TPN Instruct patient on TPN Take down procedure Description: TPN Take-down procedure: Instruct Patient/Caregiver on the following: Stopping infusion pump when infusion complete; disconnecting IV tubing set; flushing as ordered by physician; disposing waste; checking and recording daily temperature, weight, I&O and urine glucose and to report a weight gain or loss of more than 1 pound in 2 consecutive days, as ordered by physician; removing TPN bag from refrigerator 8-12 hours before next infusion. Problem:SN IV THERAPY Goal:Patient/Caregiv er will remain free of IV therapy complications Completed TPN Instruct patient/caregiver on TPN lump room supervisor procedure Description: TPN Hook-up procedure: Verify patient identity using name and . Confirm physician orders for home TPN administration and verify bag label with order for accuracy. Instruct patient on the following: Hand hygiene; assembling and preparing equipment on a clean surface; injecting additives into the TPN bag prior to infusion per physician order; using appropriate size Micron filter tubing TPN with lipids use 1.2 micron filter; using infusion pump to administer TPN; using gravity tubing with control-dial to administer hydration fluids as ordered by physician. Problem:SN IV THERAPY Goal:Patient/Caregiv er will remain free of IV therapy complications Completed Instruct and educate on knowledge deficits Problem:SN Learning Assessment Goal:Demonstrate understanding of education Completed patient verbalize and/or demonstrate understanding of nursing education completed today. Education methods include: verbal cues and teach back. Further education required to improve knowledge and compliance with fall prevention/home safety strategies, gastrointestinal care management, infusion care management, medication management, pain management and surgical care precautions. Medication Education Description: Evaluate/instruct patient/caregiver on obtaining, storing, identifying and administering ordered medications as well as keeping accurate medication list in the home and adhereing to medication schedule Problem:Medication Education Goal:Patient/caregiv er will demonstrate ability to obtain, store, identify and administer ordered medications, keep accurate medication list in home, and adhere to medication schedule Completed Patient and Caregiver instructed on importance of keeping accurate medication list in home, adhering to medication schedule and Medication, route, dose, frequency, purpose, and side effects of all medications. Risk of Sepsis Description: Patient is at risk for sepsis. Monitor closely for s/s of sepsis. Problem:Sepsis Goal:Patient/caregiv er will be able to identify and report symptoms of sepsis Completed SPO2 Description: Notify Dr. Lizbeth Pool if pulse ox is <92% at rest. Problem:Physician Specific Parameters Goal:Patient to maintain parameters within physician-specified ranges throughout certification period Completed Define patient s appetite/hydration status and implement strategies to improve compliance with prescribed diet and/or healthy nutrition. Problem:Nutrition/Hy dration Goal:Manage Nutrition/Hydration Completed instructed patient on implementing strategies to comply with prescribed diet, healthy nutrition and adequate hydration Opioids- Instruct on high risk medication Problem:High Risk Medications Goal:Patient/caregiv er will teach back high risk medication side effect and precaution education Completed patient instructed on the following: Possible side effects of opioid medication including sedation, decreased rate of breathing, and constipation. Instructed on reporting over sedation to prescribing physician, practice deep breathing techniques every hour while awake, and prevention of constipation by increasing water and fiber intake, increase activity as tolerated, and use stool softener as prescribed. Only take opioids as prescribed, do not share your medications, and take proper precautions in storing and properly disposing of opioids once no longer needed. Follow providers guidelines for driving and weaning from prescribed opioid. TPN Instruct patient/caregiver on TPN lump room supervisor procedure Description: TPN Hook-up procedure: Verify patient identity using name and . Confirm physician orders for home TPN administration and verify bag label with order for accuracy. Instruct patient on the following: Hand hygiene; assembling and preparing equipment on a clean surface; injecting additives into the TPN bag prior to infusion per physician order; using appropriate size Micron filter tubing TPN with lipids use 1.2 micron filter; using infusion pump to administer TPN; using gravity tubing with control-dial to administer hydration fluids as ordered by physician. Problem:SN IV THERAPY Goal:Patient/Caregiv er will remain free of IV therapy complications Completed Complete PICC catheter care per order Description: Measure external catheter length with every dressing change. Measure upper arm circumference 10 cm above the anticubital fossa at initial assessment and when clinically indicated. Change needleless connector and extension tubing weekly and PRN. Change dressing weekly and PRN for lifting edges of dressing, visible soiling, presence of moisture, drainage or blood, compromised skin integrity. Cleanse site with 2% chlorhexidine gluconate for 30 seconds. Allow to air dry completely. Apply skin barrier solution and allow to air dry completely. Cover/secure with StatLock , BIOPATCH and transparent semi-permeable dressing. Problem:SN IV THERAPY Goal:Patient/Caregiv er will remain free of IV therapy complications Completed TPN Instruct patient on TPN Take down procedure Description: TPN Take-down procedure: Instruct Patient/Caregiver on the following: Stopping infusion pump when infusion complete; disconnecting IV tubing set; flushing as ordered by physician; disposing waste; checking and recording daily temperature, weight, I&O and urine glucose and to report a weight gain or loss of more than 1 pound in 2 consecutive days, as ordered by physician; removing TPN bag from refrigerator 8-12 hours before next infusion. Problem:SN IV THERAPY Goal:Patient/Caregiv er will remain free of IV therapy complications Completed TPN Instruct patient/caregiver on TPN lump room supervisor procedure Description: TPN Hook-up procedure: Verify patient identity using name and . Confirm physician orders for home TPN administration and verify bag label with order for accuracy. Instruct patient on the following: Hand hygiene; assembling and preparing equipment on a clean surface; injecting additives into the TPN bag prior to infusion per physician order; using appropriate size Micron filter tubing TPN with lipids use 1.2 micron filter; using infusion pump to administer TPN. Problem:SN IV THERAPY Goal:Patient/Caregiv er will remain free of IV therapy complications Completed Instruct patient/suellen on management of infusion and access device Problem:SN IV THERAPY Goal:Patient/Caregiv er will remain free of IV therapy complications Completed patient instructed on the following: name, purpose and goal of infusion therapy, how to contact [facility], how and when to contact the pharmacy, aseptic handling and maintaining a clean area for infusion therapy supplies, preparation and administration of infusion, safe handling, storage and disposal of infusion therapy supplies, medications, flushes and hazardous waste, flushing the venous access device and maintaining accurate records (I&O, weights, infusion times) [facility] Visit Details Visit Type -SN IV OC 1 Discipline -Assisted Problems Problem Description Start Date Status Goals Interve ntions Risk for Falls Disciplines: Skilled Services 02/11/2022 Active 1 goal linked to scheduled/document ed intervention 1 goal intervention scheduled/documente d in this visit Pain Disciplines: Skilled Services 02/11/2022 Active 1 goal linked to scheduled/document ed intervention 1 goal intervention scheduled/documente d in this visit Discharge Disciplines: Skilled Services 02/11/2022 Active 1 goal linked to scheduled/document ed intervention 1 goal intervention scheduled/documente d in this visit SN IV THERAPY Disciplines: SN 02/11/2022 Active 1 goal linked to scheduled/document ed intervention 2 goal interventions scheduled/documente d in this visit SN Learning Assessment Disciplines: SN 02/11/2022 Active 1 goal linked to scheduled/document ed intervention 1 goal intervention scheduled/documente d in this visit SN Labwork Disciplines: SN 02/11/2022 Active 1 goal linked to scheduled/document ed intervention 1 goal intervention scheduled/documente d in this visit Medication Education Disciplines: Skilled Services 02/12/2022 Active 1 goal linked to scheduled/document ed intervention 1 goal intervention scheduled/documente d in this visit Sepsis Disciplines: Skilled Services 02/12/2022 Active 1 goal linked to scheduled/document ed intervention 1 goal intervention scheduled/documente d in this visit Physician Specific Parameters Disciplines: Skilled Services 02/12/2022 Active 1 goal linked to scheduled/document ed intervention 1 goal intervention scheduled/documente d in this visit Nutrition/Hydra tion Disciplines: Skilled Services 02/12/2022 Active 1 goal linked to scheduled/document ed intervention 1 goal intervention scheduled/documente d in this visit High Risk Medications Disciplines: Skilled Services 02/12/2022 Active 1 goal linked to scheduled/document ed intervention 1 goal intervention scheduled/documente d in this visit SN IV THERAPY Disciplines: SN 02/12/2022 Active 1 goal linked to scheduled/document ed intervention 1 goal intervention scheduled/documente d in this visit SN IV THERAPY Disciplines: SN 02/11/2022 Active 1 goal linked to scheduled/document ed intervention 3 goal interventions scheduled/documente d in this visit Goals Goal Associated Problem Outcome Goal Met? Visit Notes Manage Risk for falls Description: Patient/caregiver will verbalize knowledge of individualized fall prevention strategies by 04/11/22. Risk for Falls No Manage Pain Description: Patient/caregiver will verbalize knowledge and understanding of appropriate techniques to control pain, including pain medication. Patient will verbalize or demonstrate an acceptable level of pain as evidenced by a pain score of <5/10 and improvement in ability to perform activities of daily living to be achieved by 03/14/22. Pain No Manage discharge planning Description: Patient/caregiver will verbalize understanding of ongoing discharge plan provided related to disease management, arrangements for outpatient and/or community services, obtaining medications, supplies, and DME, as needed throughout certification period. Discharge No Patient/Caregiver will remain free of IV therapy complications Description: Patient/caregiver will verbalize understanding of infusion therapy & demonstrate appropriate access device management as evidenced by patient remaining free of IV complications by throughout certification period. SN IV THERAPY No Demonstrate understanding of education Description: Patient and/or caregiver will verbalize understanding of educational instruction provided throughout certification period. SN Learning Assessment No SN to obtain lab specimen without difficulty when ordered throughout certification period SN Labwork No Patient/caregiver will demonstrate ability to obtain, store, identify and administer ordered medications, keep accurate medication list in home, and adhere to medication schedule Description: Patient/caregiver will demonstrate ability to obtain, store, identify and administer ordered medications, keep accurate medication list in home, and adhere to medication schedule by 02/26/22. Medication Education No Patient/caregiver will be able to identify and report symptoms of sepsis Description: Patient/caregiver will be able to identify signs/symptoms of sepsis infection and will verbalize actions to take if suspected by 02/26/22. Sepsis No Patient to maintain parameters within physician-specified ranges throughout certification period Physician Specific Parameters No Manage Nutrition/Hydration Description: Patient/caregiver will verbalize/demonstrate knowledge of prescribed diet and/or healthy nutrition to be achieved by 02/26/22. Nutrition/Hydration No Patient/caregiver will teach back high risk medication side effect and precaution education High Risk Medications No Patient/Caregiver will remain free of IV therapy complications Description: Patient/caregiver will verbalize understanding of infusion therapy & demonstrate appropriate access device management as evidenced by patient remaining free of IV complications by throughout certification period. SN IV THERAPY No Patient/Caregiver will remain free of IV therapy complications Description: Patient/caregiver will verbalize understanding of infusion therapy & demonstrate appropriate access device management as evidenced by patient remaining free of IV complications by throughout certification period. SN IV THERAPY No Interventions Intervention Associated Problem/Goal Status Variance Visit Notes Instruct on individual fall risk factors and strategies to prevent falls and injuries caused by falls. Problem:Risk for Falls Goal:Manage Risk for falls SN: Patient and Caregiver instructed on Eliminating Environmental Hazards: Keep pathways clear, Keep pets out of pathways, Remove unsafe rugs, Move furniture from pathways and Keep rooms and walkways well lit Managing Cognitive Impairment/Depression: Recommended use of visual cues/reminders for safety Instruct on pain and instruct on strategies to control pain Problem:Pain Goal:Manage Pain Completed patient instructed on techniques to control pain including Pharmacological measures. Instruct on ongoing discharge plan Problem:Discharge Goal:Manage discharge planning Completed Ongoing Discharge plan: Discharge plan discussed with patient including frequency and duration for home SN and plan for transition to: live independently at home without ongoing services. TPN Instruct patient on TPN Take down procedure Description: TPN Take-down procedure: Instruct Patient/Caregiver on the following: Stopping infusion pump when infusion complete; disconnecting IV tubing set; flushing as ordered by physician; disposing waste; checking and recording daily temperature, weight, I&O and urine glucose and to report a weight gain or loss of more than 1 pound in 2 consecutive days, as ordered by physician; removing TPN bag from refrigerator 8-12 hours before next infusion. Problem:SN IV THERAPY Goal:Patient/Caregiv er will remain free of IV therapy complications Completed TPN Instruct patient/caregiver on TPN lump room supervisor procedure Description: TPN Hook-up procedure: Verify patient identity using name and . Confirm physician orders for home TPN administration and verify bag label with order for accuracy. Instruct patient on the following: Hand hygiene; assembling and preparing equipment on a clean surface; injecting additives into the TPN bag prior to infusion per physician order; using appropriate size Micron filter tubing TPN with lipids use 1.2 micron filter; using infusion pump to administer TPN; using gravity tubing with control-dial to administer hydration fluids as ordered by physician. Problem:SN IV THERAPY Goal:Patient/Caregiv er will remain free of IV therapy complications Completed Instruct and educate on knowledge deficits Problem:SN Learning Assessment Goal:Demonstrate understanding of education Completed patient verbalize and/or demonstrate understanding of nursing education completed today. Education methods include: verbal cues and teach back. Further education required to improve knowledge and compliance with fall prevention/home safety strategies, gastrointestinal care management, infusion care management, medication management, nutrition and pain management. SN to obtain blood specimen (1) Description: Draw blood via PICC for CBC, CMP, magnesium, phosphorus, pre-albumin, triglycerides on 02/12/22. Results to Dr Oro fax: [phone] . Dx code(s): E43. If unable to draw blood through IV access device, may draw blood peripherally. Fax lab results to pharmacy: [phone] Problem:SN Labwork Goal:SN to obtain lab specimen without difficulty when ordered throughout certification period Completed Medication Education Description: Evaluate/instruct patient/caregiver on obtaining, storing, identifying and administering ordered medications as well as keeping accurate medication list in the home and adhereing to medication schedule Problem:Medication Education Goal:Patient/caregiv er will demonstrate ability to obtain, store, identify and administer ordered medications, keep accurate medication list in home, and adhere to medication schedule Completed Patient and Caregiver instructed on importance of keeping accurate medication list in home, adhering to medication schedule and Medication, route, dose, frequency, purpose, and side effects of all medications. Risk of Sepsis Description: Patient is at risk for sepsis. Monitor closely for s/s of sepsis. Problem:Sepsis Goal:Patient/caregiv er will be able to identify and report symptoms of sepsis Completed SPO2 Description: Notify Dr. Lizbeth Pool if pulse ox is <92% at rest. Problem:Physician Specific Parameters Goal:Patient to maintain parameters within physician-specified ranges throughout certification period Completed Define patient s appetite/hydration status and implement strategies to improve compliance with prescribed diet and/or healthy nutrition. Problem:Nutrition/Hy dration Goal:Manage Nutrition/Hydration Completed instructed patient on implementing strategies to comply with prescribed diet and adequate hydration Opioids- Instruct on high risk medication Problem:High Risk Medications Goal:Patient/caregiv er will teach back high risk medication side effect and precaution education Completed patient instructed on the following: Possible side effects of opioid medication including sedation, decreased rate of breathing, and constipation. Instructed on reporting over sedation to prescribing physician, practice deep breathing techniques every hour while awake, and prevention of constipation by increasing water and fiber intake, increase activity as tolerated, and use stool softener as prescribed. Only take opioids as prescribed, do not share your medications, and take proper precautions in storing and properly disposing of opioids once no longer needed. Follow providers guidelines for driving and weaning from prescribed opioid. TPN Instruct patient/caregiver on TPN lump room supervisor procedure Description: TPN Hook-up procedure: Verify patient identity using name and . Confirm physician orders for home TPN administration and verify bag label with order for accuracy. Instruct patient on the following: Hand hygiene; assembling and preparing equipment on a clean surface; injecting additives into the TPN bag prior to infusion per physician order; using appropriate size Micron filter tubing TPN with lipids use 1.2 micron filter; using infusion pump to administer TPN; using gravity tubing with control-dial to administer hydration fluids as ordered by physician. Problem:SN IV THERAPY Goal:Patient/Caregiv er will remain free of IV therapy complications Completed TPN Instruct patient on TPN Take down procedure Description: TPN Take-down procedure: Instruct Patient/Caregiver on the following: Stopping infusion pump when infusion complete; disconnecting IV tubing set; flushing as ordered by physician; disposing waste; checking and recording daily temperature, weight, I&O and urine glucose and to report a weight gain or loss of more than 1 pound in 2 consecutive days, as ordered by physician; removing TPN bag from refrigerator 8-12 hours before next infusion. Problem:SN IV THERAPY Goal:Patient/Caregiv er will remain free of IV therapy complications Completed TPN Instruct patient/caregiver on TPN lump room supervisor procedure Description: TPN Hook-up procedure: Verify patient identity using name and . Confirm physician orders for home TPN administration and verify bag label with order for accuracy. Instruct patient on the following: Hand hygiene; assembling and preparing equipment on a clean surface; injecting additives into the TPN bag prior to infusion per physician order; using appropriate size Micron filter tubing TPN with lipids use 1.2 micron filter; using infusion pump to administer TPN. Problem:SN IV THERAPY Goal:Patient/Caregiv er will remain free of IV therapy complications Completed Instruct patient/suellen on management of infusion and access device Problem:SN IV THERAPY Goal:Patient/Caregiv er will remain free of IV therapy complications Completed patient instructed on the following: name, purpose and goal of infusion therapy, how to contact [facility], how and when to contact the pharmacy, aseptic handling and maintaining a clean area for infusion therapy supplies, preparation and administration of infusion, safe handling, storage and disposal of infusion therapy supplies, medications, flushes and hazardous waste, flushing the venous access device and maintaining accurate records (I&O, weights, infusion times) documented in this encounter [facility] Plan of care note* Visit Details Visit Type -SN IV OC 1 Discipline -Assisted Problems Problem Description Start Date Status Goals Interve ntions Risk for Falls Disciplines: Skilled Services 02/11/2022 Active 1 goal linked to scheduled/document ed intervention 1 goal intervention scheduled/documente d in this visit Pain Disciplines: Skilled Services 02/11/2022 Active 1 goal linked to scheduled/document ed intervention 1 goal intervention scheduled/documente d in this visit Discharge Disciplines: Skilled Services 02/11/2022 Active 1 goal linked to scheduled/document ed intervention 1 goal intervention scheduled/documente d in this visit SN IV THERAPY Disciplines: SN 02/11/2022 Active 1 goal linked to scheduled/document ed intervention 1 goal intervention scheduled/documente d in this visit SN Learning Assessment Disciplines: SN 02/11/2022 Active 1 goal linked to scheduled/document ed intervention 1 goal intervention scheduled/documente d in this visit Medication Education Disciplines: Skilled Services 02/12/2022 Active 1 goal linked to scheduled/document ed intervention 1 goal intervention scheduled/documente d in this visit Sepsis Disciplines: Skilled Services 02/12/2022 Active 1 goal linked to scheduled/document ed intervention 1 goal intervention scheduled/documente d in this visit Risk for skin breakdown Disciplines: Skilled Services 02/12/2022 Active 1 goal linked to scheduled/document ed intervention 1 goal intervention scheduled/documente d in this visit Physician Specific Parameters Disciplines: Skilled Services 02/12/2022 Active 1 goal linked to scheduled/document ed intervention 1 goal intervention scheduled/documente d in this visit Nutrition/Hydra tion Disciplines: Skilled Services 02/12/2022 Active 1 goal linked to scheduled/document ed intervention 1 goal intervention scheduled/documente d in this visit High Risk Medications Disciplines: Skilled Services 02/12/2022 Active 1 goal linked to scheduled/document ed intervention 1 goal intervention scheduled/documente d in this visit SN IV THERAPY Disciplines: SN 02/11/2022 Active 1 goal linked to scheduled/document ed intervention 1 goal intervention scheduled/documente d in this visit Goals Goal Associated Problem Outcome Goal Met? Visit Notes Manage Risk for falls Description: Patient/caregiver will verbalize knowledge of individualized fall prevention strategies by 04/11/22. Risk for Falls No Manage Pain Description: Patient/caregiver will verbalize knowledge and understanding of appropriate techniques to control pain, including pain medication. Patient will verbalize or demonstrate an acceptable level of pain as evidenced by a pain score of <5/10 and improvement in ability to perform activities of daily living to be achieved by 03/14/22. Pain No Manage discharge planning Description: Patient/caregiver will verbalize understanding of ongoing discharge plan provided related to disease management, arrangements for outpatient and/or community services, obtaining medications, supplies, and DME, as needed throughout certification period. Discharge No Patient/Caregiver will remain free of IV therapy complications Description: Patient/caregiver will verbalize understanding of infusion therapy & demonstrate appropriate access device management as evidenced by patient remaining free of IV complications by throughout certification period. SN IV THERAPY No Demonstrate understanding of education Description: Patient and/or caregiver will verbalize understanding of educational instruction provided throughout certification period. SN Learning Assessment No Patient/caregiver will demonstrate ability to obtain, store, identify and administer ordered medications, keep accurate medication list in home, and adhere to medication schedule Description: Patient/caregiver will demonstrate ability to obtain, store, identify and administer ordered medications, keep accurate medication list in home, and adhere to medication schedule by 02/26/22. Medication Education No Patient/caregiver will be able to identify and report symptoms of sepsis Description: Patient/caregiver will be able to identify signs/symptoms of sepsis infection and will verbalize actions to take if suspected by 02/26/22. Sepsis No Manage risk for skin breakdown Description: Patient/caregiver will verbalize and demonstrate understanding of the risks and measures to be taken to monitor and prevent skin breakdown by 02/26/22. Risk for skin breakdown No Patient to maintain parameters within physician-specified ranges throughout certification period Physician Specific Parameters No Manage Nutrition/Hydration Description: Patient/caregiver will verbalize/demonstrate knowledge of prescribed diet and/or healthy nutrition to be achieved by 02/26/22. Nutrition/Hydration No Patient/caregiver will teach back high risk medication side effect and precaution education High Risk Medications No Patient/Caregiver will remain free of IV therapy complications Description: Patient/caregiver will verbalize understanding of infusion therapy & demonstrate appropriate access device management as evidenced by patient remaining free of IV complications by throughout certification period. SN IV THERAPY No Interventions Intervention Associated Problem/Goal Status Variance Visit Notes Instruct on individual fall risk factors and strategies to prevent falls and injuries caused by falls. Problem:Risk for Falls Goal:Manage Risk for falls Completed SN: Patient instructed on Eliminating Environmental Hazards: Keep pathways clear, Keep pets out of pathways, Remove unsafe rugs, Keep rooms and walkways well lit, Wear supportive shoes or non-skid socks and Keep frequently used items within reach Instruct on pain and instruct on strategies to control pain Problem:Pain Goal:Manage Pain Completed patient instructed on techniques to control pain including Pharmacological measures and Non-Pharmacological measures; rest, positioning/elevation and distraction. Instruct on ongoing discharge plan Problem:Discharge Goal:Manage discharge planning Completed Ongoing Discharge plan: Discharge plan discussed with patient including frequency and duration for home SN and plan for transition to: live independently at home without ongoing services. TPN Instruct patient/caregiver on TPN lump room supervisor procedure Description: TPN Hook-up procedure: Verify patient identity using name and . Confirm physician orders for home TPN administration and verify bag label with order for accuracy. Instruct patient on the following: Hand hygiene; assembling and preparing equipment on a clean surface; injecting additives into the TPN bag prior to infusion per physician order; using appropriate size Micron filter tubing TPN with lipids use 1.2 micron filter; using infusion pump to administer TPN; using gravity tubing with control-dial to administer hydration fluids as ordered by physician. Problem:SN IV THERAPY Goal:Patient/Caregiv er will remain free of IV therapy complications Completed Instruct and educate on knowledge deficits Problem:SN Learning Assessment Goal:Demonstrate understanding of education Completed patient verbalize and/or demonstrate understanding of nursing education completed today. Education methods include: verbal cues. Further education required to improve knowledge and compliance with fall prevention/home safety strategies, infusion care management, medication management and nutrition. Medication Education Description: Evaluate/instruct patient/caregiver on obtaining, storing, identifying and administering ordered medications as well as keeping accurate medication list in the home and adhereing to medication schedule Problem:Medication Education Goal:Patient/caregiv er will demonstrate ability to obtain, store, identify and administer ordered medications, keep accurate medication list in home, and adhere to medication schedule Completed Patient instructed on importance of keeping accurate medication list in home and adhering to medication schedule. Risk of Sepsis Description: Patient is at risk for sepsis. Monitor closely for s/s of sepsis. Problem:Sepsis Goal:Patient/caregiv er will be able to identify and report symptoms of sepsis Completed Instruct on the risks and measures to be taken to prevent skin breakdown Description: Patient's Edvin Score is: 17. A Edvin score <= to 18 indicates risk for skin breakdown. Problem:Risk for skin breakdown Goal:Manage risk for skin breakdown Completed patient instructed on maintaining skin integrity including: The need for every 1-2 hour turns, position changes, and maintaining activity as tolerated, Reducing risk of friction and shear, including use of draw sheet as appropriate, Elevating and protecting heels, Inspecting bony prominences, Routine skin care and Notifying [facility] clinician of changes to skin integrity SPO2 Description: Notify Dr. Lizbeth Pool if pulse ox is <92% at rest. Problem:Physician Specific Parameters Goal:Patient to maintain parameters within physician-specified ranges throughout certification period Completed Define patient s appetite/hydration status and implement strategies to improve compliance with prescribed diet and/or healthy nutrition. Problem:Nutrition/Hy dration Goal:Manage Nutrition/Hydration Completed instructed patient on implementing strategies to comply with prescribed diet, healthy nutrition and adequate hydration Opioids- Instruct on high risk medication Problem:High Risk Medications Goal:Patient/caregiv er will teach back high risk medication side effect and precaution education Completed patient instructed on the following: Possible side effects of opioid medication including sedation, decreased rate of breathing, and constipation. Instructed on reporting over sedation to prescribing physician, practice deep breathing techniques every hour while awake, and prevention of constipation by increasing water and fiber intake, increase activity as tolerated, and use stool softener as prescribed. Only take opioids as prescribed, do not share your medications, and take proper precautions in storing and properly disposing of opioids once no longer needed. Follow providers guidelines for driving and weaning from prescribed opioid. Instruct patient/cargiver on management of infusion and access device Problem:SN IV THERAPY Goal:Patient/Caregiv er will remain free of IV therapy complications Completed patient instructed on the following: name, purpose and goal of infusion therapy, how to contact [facility], how and when to contact the pharmacy, aseptic handling and maintaining a clean area for infusion therapy supplies, preparation and administration of infusion, safe handling, storage and disposal of infusion therapy supplies, medications, flushes and hazardous waste, flushing the venous access device and maintaining accurate records (I&O, weights, infusion times) [facility] Visit Details Visit Type -Care Coordinatio n 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 Visit Notes Patient will be referred to additional discipline as needed EQUAL OPPORTUNITY ASSISTANT Referral Completed Yes Interventions Intervention Associated Problem/Goal Status Variance Visit Notes EQUAL OPPORTUNITY ASSISTANT evaluation and treatment Description: EQUAL OPPORTUNITY ASSISTANT Referral eval and treat for Community Resources and patient assist with Advance Directives. Problem:EQUAL OPPORTUNITY ASSISTANT Referral Goal:Patient will be referred to additional discipline as needed Completed documented in this encounter [facility] home Plan of care note* Visit Details Visit Type -SN ROUTINE IV Discipline -Assisted Problems Problem Description Start Date Status Goals Interve ntions Risk for Falls Disciplines: Skilled Services 02/11/2022 Active 1 goal linked to scheduled/document ed intervention 1 goal intervention scheduled/document ed in this visit Pain Disciplines: Skilled Services 02/11/2022 Active 1 goal linked to scheduled/document ed intervention Discharge Disciplines: Skilled Services 02/11/2022 Active 1 goal linked to scheduled/document ed intervention 1 goal intervention scheduled/document ed in this visit Advance Directives Disciplines: Skilled Services 02/11/2022 Resolved on 02/20/2022 1 goal linked to scheduled/document ed intervention SN IV THERAPY Disciplines: SN 02/11/2022 Active 1 goal linked to scheduled/document ed intervention SN Learning Assessment Disciplines: SN 02/11/2022 Active 1 goal linked to scheduled/document ed intervention 1 goal intervention scheduled/document ed in this visit Medication Education Disciplines: Skilled Services 02/12/2022 Active 1 goal linked to scheduled/document ed intervention 1 goal intervention scheduled/document ed in this visit Sepsis Disciplines: Skilled Services 02/12/2022 Active 1 goal linked to scheduled/document ed intervention 1 goal intervention scheduled/document ed in this visit Risk for skin breakdown Disciplines: Skilled Services 02/12/2022 Resolved on 02/20/2022 1 goal linked to scheduled/document ed intervention Physician Specific Parameters Disciplines: Skilled Services 02/12/2022 Active 1 goal linked to scheduled/document ed intervention 1 goal intervention scheduled/document ed in this visit Nutrition/Hydr ation Disciplines: Skilled Services 02/12/2022 Active 1 goal linked to scheduled/document ed intervention 1 goal intervention scheduled/document ed in this visit High Risk Medications Disciplines: Skilled Services 02/12/2022 Resolved on 02/20/2022 1 goal linked to scheduled/document ed intervention SN IV THERAPY Disciplines: SN 02/12/2022 Active 1 goal linked to scheduled/document ed intervention 1 goal intervention scheduled/document ed in this visit SN IV THERAPY Disciplines: 02/11/2022 Active 1 goal linked to scheduled/document ed intervention 1 goal intervention scheduled/document ed in this visit SN Labwork Disciplines: 02/19/2022 Active 1 goal linked to scheduled/document ed intervention 1 goal intervention scheduled/document ed in this visit Goals Goal Associated Problem Outcome Goal Met? Visit Notes Manage Risk for falls Description: Patient/caregiver will verbalize knowledge of individualized fall prevention strategies by 04/11/22. Risk for Falls In Progress No Manage Pain Description: Patient/caregiver will verbalize knowledge and understanding of appropriate techniques to control pain, including pain medication. Patient will verbalize or demonstrate an acceptable level of pain as evidenced by a pain score of <5/10 and improvement in ability to perform activities of daily living to be achieved by 03/14/22. Pain In Progress No Manage discharge planning Description: Patient/caregiver will verbalize understanding of ongoing discharge plan provided related to disease management, arrangements for outpatient and/or community services, obtaining medications, supplies, and DME, as needed throughout certification period. Discharge In Progress No Patient/caregiver will make healthcare providers aware of and any changes to Advance Directives throughout certification period Advance Directives Completed Yes Patient/Caregiver will remain free of IV therapy complications Description: Patient/caregiver will verbalize understanding of infusion therapy & demonstrate appropriate access device management as evidenced by patient remaining free of IV complications by throughout certification period. SN IV THERAPY In Progress No Demonstrate understanding of education Description: Patient and/or caregiver will verbalize understanding of educational instruction provided throughout certification period. SN Learning Assessment In Progress No Patient/caregiver will demonstrate ability to obtain, store, identify and administer ordered medications, keep accurate medication list in home, and adhere to medication schedule Description: Patient/caregiver will demonstrate ability to obtain, store, identify and administer ordered medications, keep accurate medication list in home, and adhere to medication schedule by 02/26/22. Medication Education In Progress No Patient/caregiver will be able to identify and report symptoms of sepsis Description: Patient/caregiver will be able to identify signs/symptoms of sepsis infection and will verbalize actions to take if suspected by 02/26/22. Sepsis In Progress No Manage risk for skin breakdown Description: Patient/caregiver will verbalize and demonstrate understanding of the risks and measures to be taken to monitor and prevent skin breakdown by 02/26/22. Risk for skin breakdown Completed Yes Patient to maintain parameters within physician-specified ranges throughout certification period Physician Specific Parameters In Progress No Manage Nutrition/Hydration Description: Patient/caregiver will verbalize/demonstrate knowledge of prescribed diet and/or healthy nutrition to be achieved by 02/26/22. Nutrition/Hydration In Progress No Patient/caregiver will teach back high risk medication side effect and precaution education High Risk Medications Completed Yes Patient/Caregiver will remain free of IV therapy complications Description: Patient/caregiver will verbalize understanding of infusion therapy & demonstrate appropriate access device management as evidenced by patient remaining free of IV complications by throughout certification period. SN IV THERAPY No Patient/Caregiver will remain free of IV therapy complications Description: Patient/caregiver will verbalize understanding of infusion therapy & demonstrate appropriate access device management as evidenced by patient remaining free of IV complications by throughout certification period. SN IV THERAPY No SN to obtain lab specimen without difficulty when ordered throughout certification period SN Labwork No Interventions Intervention Associated Problem/Goal Status Variance Visit Notes Instruct on individual fall risk factors and strategies to prevent falls and injuries caused by falls. Problem:Risk for Falls Goal:Manage Risk for falls Completed SN: Patient instructed on Eliminating Environmental Hazards: Keep pathways clear and Keep pets out of pathways Instruct on ongoing discharge plan Problem:Discharge Goal:Manage discharge planning Completed Ongoing Discharge plan: Discharge plan discussed with patient including frequency and duration for home SN and plan for transition to: live independently at home without ongoing services. Instruct and educate on knowledge deficits Problem:SN Learning Assessment Goal:Demonstrate understanding of education Completed patient verbalize and/or demonstrate understanding of nursing education completed today. Education methods include: verbal cues, tactile cues and visual cues. Further education required to improve knowledge and compliance with fall prevention/home safety strategies, gastrointestinal care management, infusion care management, medication management and nutrition. Medication Education Description: Evaluate/instruct patient/caregiver on obtaining, storing, identifying and administering ordered medications as well as keeping accurate medication list in the home and adhereing to medication schedule Problem:Medication Education Goal:Patient/caregiv er will demonstrate ability to obtain, store, identify and administer ordered medications, keep accurate medication list in home, and adhere to medication schedule Completed Patient instructed on adhering to medication schedule. Risk of Sepsis Description: Patient is at risk for sepsis. Monitor closely for s/s of sepsis. Problem:Sepsis Goal:Patient/caregiv er will be able to identify and report symptoms of sepsis Completed SPO2 Description: Notify Dr. Lizbeth Pool if pulse ox is <92% at rest. Problem:Physician Specific Parameters Goal:Patient to maintain parameters within physician-specified ranges throughout certification period Completed Define patient s appetite/hydration status and implement strategies to improve compliance with prescribed diet and/or healthy nutrition. Problem:Nutrition/Hy dration Goal:Manage Nutrition/Hydration Completed reinforced patient on implementing strategies to comply with prescribed diet, healthy nutrition and adequate hydration Complete PICC catheter care per order Description: Measure external catheter length with every dressing change. Measure upper arm circumference 10 cm above the anticubital fossa at initial assessment and when clinically indicated. Change needleless connector and extension tubing weekly and PRN. Change dressing weekly and PRN for lifting edges of dressing, visible soiling, presence of moisture, drainage or blood, compromised skin integrity. Cleanse site with 2% chlorhexidine gluconate for 30 seconds. Allow to air dry completely. Apply skin barrier solution and allow to air dry completely. Cover/secure with StatLock , BIOPATCH and transparent semi-permeable dressing. Problem:SN IV THERAPY Goal:Patient/Caregiv er will remain free of IV therapy complications Completed Instruct patient/cargiver on management of infusion and access device Problem:SN IV THERAPY Goal:Patient/Caregiv er will remain free of IV therapy complications Completed patient instructed on the following: purpose and goal of infusion therapy, aseptic handling and maintaining a clean area for infusion therapy supplies, preparation and administration of infusion and flushing the venous access device SN to obtain blood specimen (1) Description: per orders of Dr. PERRY Oro TPN LABS: 02/20/22 (Labs include CBC, CMP, magnesium, phosphorus, pre-albumin, triglycerides) fax all labs to [phone] Problem:SN Labwork Goal:SN to obtain lab specimen without difficulty when ordered throughout certification period Completed documented in this encounter [facility] for referral (narrative)* Diagnostic Procedure Only (Urgent) - Closed Specialty Diagnoses / Procedures Referred By Contac t Referred To Contact XR IMAGING Diagnoses Hand injury, right, initial encounter Procedures XR HAND GENERAL 3V PA/LAT/OBL RIGHT RADEX HAND MINIMUM 3 VIEWS Pam Lutz, TANYA.ALMOND ROASTER [address] [place] [address] Xr Imaging Referral ID Status Reason Start Date Expiration Date V isits Requested Visits Authorized [id number] Closed Auto-Generate d Referral 09/21/2021 10/21/2022 1 1 [facility] for referral (narrative)* Diagnostic Procedure Only (Urgent) - Closed Specialty Diagnoses / Procedures Referred By Contac t Referred To Contact US IMAGING Diagnoses Difficulty urinating Procedures US PELVIS BLADDER US PELVIC NONOBSTETRIC IMAGE DCMTN LIMITED/F/U Sheyla Palafox APRN.CNP [address] [place] [address] Us Imaging Referral ID Status Reason Start Date Expiration Date V isits Requested Visits Authorized [id number] Closed Auto-Generate d Referral 09/22/2021 10/22/2022 1 1 [facility] for referral (narrative)* Diagnostic Procedure Only (Routine) - Pending Review Specialty Diagnoses / Procedures Referred By Contac t Referred To Contact BR IMAGING Diagnoses Encounter for screening mammogram for breast cancer Procedures DELFINA SCREENING SCREENING MAMMOGRAPHY BI 2-VIEW BREAST INC CAD Lizbeth Pool MD [address] [place] [address] [facility] [address] [place] [address] Referral ID Status Reason Start Date Expiration Date Visits Requested Visits Authorized [id number] Pending Review Auto-Generat ed Referral 10/11/2021 11/10/2022 1 1 [facility] for referral (narrative)* Diagnostic Procedure Only (Routine) - Pending Review Specialty Diagnoses / Procedures Referred By Contac t Referred To Contact XR IMAGING Diagnoses Other closed extra-articular fracture of distal end of right radius, initial encounter Procedures XR WRIST GENERAL 3V PA/LAT/OBL RIGHT RADEX WRIST COMPLETE MINIMUM 3 VIEWS Kurt Edgar MD [address] [place] [address] Xr Imaging Referral ID Status Reason Start Date Expiration Date Visits Requested Visits Authorized [id number] Pending Review Auto-Generat ed Referral 10/23/2021 11/22/2022 1 1 [facility] for referral (narrative)* Outpatient Procedure (Routine) - Authorized Specialty Diagnoses / Procedures Referred By Contac t Referred To Contact [facility] Diagnoses Palpitations Procedures ECG COMPLETE ECG ROUTINE ECG W/LEAST 12 LDS W/I&R Sarah Borges LEARNING DISABILITIES TEACHER.ALMOND ROASTER [address] [place] [address] [facility] [address] [address] Referral ID Status Reason Start Date Expiration Date Visits Requested Visits Authorized [id number] Authorized Auto-Generat ed Referral 11/13/2021 11/13/2022 1 1 [facility] for referral (narrative)* Outpatient Procedure (Routine) - Authorized Specialty Diagnoses / Procedures [facility] Diagnoses Bilateral carotid artery stenosis Procedures US CAROTID ARTERIES [facility] VAS LAB DUPLEX SCAN EXTRACRANIAL ART COMPL BI STUDY Natasha Ray MD [address] [place] [address] [address] Referral ID Status Reason Start Date Expiration Date Visits Requested Visits Authorized [id number] Authorized Auto-Generat ed Referral 03/19/2022 03/19/2023 1 1 [facility] for referral (narrative)* Diagnostic Procedure Only (Routine) - Pending Review Specialty Diagnoses / Procedures Referred By Contac t Referred To Contact BR IMAGING Diagnoses Breast tenderness in female Procedures DELFINA DIAGNOSTIC BILATERAL DIAGNOSTIC MAMMOGRAPHY COMPUTER-AIDED DETCJ BI Dleaney Mora LEARNING DISABILITIES TEACHER.ALMOND ROASTER [address] [place] [address] [facility] [address] [place] [address] Referral ID Status Reason Start Date Expiration Date Visits Requested Visits Authorized [id number] Pending Review Auto-Generat ed Referral 08/21/2022 09/20/2023 1 1 [facility] for referral (narrative)* Diagnostic Procedure Only (Routine) - Pending Review Specialty Diagnoses / Procedures Referred By Contac t Referred To Contact BR IMAGING Diagnoses Breast tenderness Procedures US BREAST LTD RIGHT US BREAST UNI REAL TIME WITH IMAGE LIMITED Delaney Mora APRN.CNP [address] [place] [address] [facility] [address] [place] [address] Referral ID Status Reason Start Date Expiration Date Visits Requested Visits Authorized [id number] Pending Review Auto-Generat ed Referral 08/22/2022 09/21/2023 1 1 [facility] for referral (narrative)* Outpatient Procedure (Routine) - Authorized Specialty Diagnoses / Procedures Referred By Contac t Referred To Contact [facility] Diagnoses Rectal bleed Lower abdominal pain Change in bowel habits Procedures COLONOSCOPY DIAGNOSTIC COLONOSCOPY FLX DX W/COLLJ SPEC WHEN PFRMD Linda Rabago PA-C [address] [place] [address] [facility] [address] [place] [address] Referral ID Status Reason Start Date Expiration Date Visits Requested Visits Authorized [id number] Authorized Auto-Generat ed Referral 11/27/2022 11/28/2023 1 1 [facility] for referral (narrative)* Outpatient Procedure (Routine) - Pending Review Specialty Diagnoses / Procedures Referred By Contac t Referred To Contact [facility] Diagnoses Other chest pain Procedures ECHO ECHO TTHRC R-T 2D W/WOM-MODE COMPL SPEC&COLR D Natasha Ray MD [address] [place] [address] [facility] [place] [address] [place] [address] Referral ID Status Reason Start Date Expiration Date Visits Requested Visits Authorized [id number] Pending Review Auto-Generat ed Referral 07/08/2023 07/07/2024 1 1 * Outpatient Procedure (Routine) - Pending Review Specialty Diagnoses / Procedures Referred By Miguel t Referred To Contact [facility] Diagnoses Palpitations Hyperlipidemia, unspecified hyperlipidemia type Primary hypertension Procedures ECG COMPLETE ECG ROUTINE ECG W/LEAST 12 LDS W/I&R Natasha Ray MD [address] [place] [address] [facility] [place] [address] [place] [address] Referral ID Status Reason Start Date Expiration Date Visits Requested Visits Authorized [id number] Pending Review Auto-Generat ed Referral 07/01/2023 06/30/2024 1 1 [facility] for referral (narrative)* Diagnostic Procedure Only (Routine) - Pending Review Specialty Diagnoses / Procedures Referred By Miguel lind Referred To Contact BR IMAG[facility] Diagnoses Encounter for screening mammogram for breast cancer Procedures DELFINA SCREENING W JASSI SCREENING DIGITAL BREAST TOMOSYNTHESIS BI SCREENING MAMMOGRAPHY BI 2-VIEW BREAST INC CAD Greg Abrams MD [facility] [place] [address] [facility] [address] [place] [address] Referral ID Status Reason Start Date Expiration Date Visits Requested Visits Authorized [id number] Pending Review Auto-Generat ed Referral 2023 11/14/2024 1 1 [facility] for referral (narrative)* Diagnostic Procedure Only (Routine) - Closed Specialty Diagnoses / Procedures Referred By Miguel t Referred To Contact XR IMAGING Diagnoses Acute midline low back pain without sciatica Procedures XR THORACIC LIMITED 2V AP/LAT RADEX SPINE THORACIC 2 VIEWS Delaney Mora APRN.ALMOND ROASTER [address] [place] [address] [place] [address] Referral ID Status Reason Start Date Expiration Date V isits Requested Visits Authorized [id number] Closed Auto-Generate d Referral 08/14/2022 09/13/2023 1 1 * Diagnostic Procedure Only (Routine) - Closed Specialty Diagnoses / Procedures Referred By Contac t Referred To Contact XR IMAGING Diagnoses Acute midline low back pain without sciatica Procedures XR LUMBAR GENERAL 3V AP/LAT/L5-S1 RADEX SPINE LUMBOSACRAL 2/3 VIEWS Delaney Mora APRN.ALMOND ROASTER [address] [place] [address] [place] [address] Referral ID Status Reason Start Date Expiration Date V isits Requested Visits Authorized [id number] Closed Auto-Generate d Referral 08/14/2022 09/13/2023 1 1 [facility] for referral (narrative)* Diagnostic Procedure Only (Urgent) - Closed Specialty Diagnoses / Procedures Referred By Contac t Referred To Contact XR IMAGING Diagnoses Hand injury, right, initial encounter Procedures XR HAND GENERAL 3V PA/LAT/OBL RIGHT RADEX HAND MINIMUM 3 VIEWS Pam Lutz APRN.ALMOND ROASTER [address] [place] [address] [place] [address] Referral ID Status Reason Start Date Expiration Date V isits Requested Visits Authorized [id number] Closed Auto-Generate d Referral 09/21/2021 10/21/2022 1 1 [facility] for referral (narrative)* Diagnostic Procedure Only (Urgent) - Closed Specialty Diagnoses / Procedures Referred By Contac t Referred To Contact XR IMAGING Diagnoses Injury of right hand, initial encounter Procedures XR HAND GENERAL 3V PA/LAT/OBL RIGHT RADEX HAND MINIMUM 3 VIEWS Bruce Florse APRN.ALMOND ROASTER [address] [place] [address] [place] [address] Referral ID Status Reason Start Date Expiration Date V isits Requested Visits Authorized [id number] Closed Auto-Generate d Referral 10/04/2021 11/03/2022 1 1 * Diagnostic Procedure Only (Urgent) - Closed Specialty Diagnoses / Procedures Referred By Contac t Referred To Contact XR IMAGING Diagnoses Right wrist pain Procedures XR WRIST INJURY 4V PA/LAT/OBL/SCAPH RIGHT RADEX WRIST COMPLETE MINIMUM 3 VIEWS Bruce Flores APRN.ALMOND ROASTER [address] [place] [address] [place] [address] Referral ID Status Reason Start Date Expiration Date V isits Requested Visits Authorized [id number] Closed Auto-Generate d Referral 10/04/2021 11/03/2022 1 1 [facility] for referral (narrative)* Diagnostic Procedure Only (Urgent) - Closed Specialty Diagnoses / Procedures Referred By Contac t Referred To Contact XR IMAGING Diagnoses Injury of nose, initial encounter Procedures XR NASAL BONES 3V PA/BOTH LAT X-RAY NASAL BONES Solange Barboza PA-C [address] [place] [address] [place] [address] Referral ID Status Reason Start Date Expiration Date V isits Requested Visits Authorized [id number] Closed Auto-Generate d Referral 12/23/2020 01/22/2022 1 1 [facility] for referral (narrative)* Outpatient Procedure (Routine) - Authorized Specialty Diagnoses / Procedures Referred By Contac t Referred To Contact [facility] Diagnoses COPD with exacerbation (HCC) Tobacco use Procedures SPIROMETRY WITH DILATOR IF OBSTRUCTED BRNCDILAT RSPSE SPMTRY PRE&POST-BRNCDILAT ADMN Luana Tripathi APRN.PANEL ASSEMBLER [address] [place] [address] [facility] [place] [address] [place] [address] Referral ID Status Reason Start Date Expiration Date Visits Requested Visits Authorized [id number] Authorized Auto-Generat ed Referral 4 05/14/2025 1 1 * Consult, Test, Treat (Routine) - Authorized Specialty Diagnoses / Procedures Referred By Contac t Referred To Contact Ophthalmology Diagnoses Blurry vision Procedures CONSULT TO OPHTHALMOLOGY OFFICE/OUTPATIENT [facility] 60 MINUTES Luana Tripathi APRN.PANEL ASSEMBLER [address] [place] [address] Referral ID Status Reason Start Date Expiration Date Visits Requested Visits Authorized [id number] Authorized PCP Requested Referral 4 04/14/2025 1 1 [facility]No reason for referral information availableWChildren's [facility] for [facility] Work Phone: Reason for visit Narrative* Diagnostic Procedure Only (Routine) - Closed Specialty Diagnoses / Procedures Referred By Contac t Referred To Contact XR IMAGING Diagnoses Acute midline low back pain without sciatica Procedures XR THORACIC LIMITED 2V AP/LAT RADEX SPINE THORACIC 2 VIEWS Delaney Mora LEARNING DISABILITIES TEACHER.ALMOND ROASTER [address] [place] [address] [place] [address] Referral ID Status Reason Start Date Expiration Date V isits Requested Visits Authorized [id number] Closed Auto-Generate d Referral 08/14/2022 09/13/2023 1 1 [facility] for visit Narrative* Diagnostic Procedure Only (Urgent) - Closed Specialty Diagnoses / Procedures Referred By Contac t Referred To Contact XR IMAGING Diagnoses Hand injury, right, initial encounter Procedures XR HAND GENERAL 3V PA/LAT/OBL RIGHT RADEX HAND MINIMUM 3 VIEWS Pam Lutz APRN.ALMOND ROASTER [address] [place] [address] [place] [address] Referral ID Status Reason Start Date Expiration Date V isits Requested Visits Authorized [id number] Closed Auto-Generate d Referral 09/21/2021 10/21/2022 1 1 [facility] for visit Narrative* Diagnostic Procedure Only (Urgent) - Closed Specialty Diagnoses / Procedures Referred By Contac t Referred To Contact XR IMAGING Diagnoses Injury of right hand, initial encounter Procedures XR HAND GENERAL 3V PA/LAT/OBL RIGHT RADEX HAND MINIMUM 3 VIEWS Bruce Flores, LEARNING DISABILITIES TEACHER.ALMOND ROASTER [address] [facility] [place] [address] [place] [address] Referral ID Status Reason Start Date Expiration Date V isits Requested Visits Authorized [id number] Closed Auto-Generate d Referral 10/04/2021 11/03/2022 1 1 [facility] for visit Narrative* Diagnostic Procedure Only (Urgent) - Closed Specialty Diagnoses / Procedures Referred By Contac t Referred To Contact XR IMAGING Diagnoses Injury of nose, initial encounter Procedures XR NASAL BONES 3V PA/BOTH LAT X-RAY NASAL BONES Solange Barboza, PA-C [address] [place] [address] [place] [address] Referral ID Status Reason Start Date Expiration Date V isits Requested Visits Authorized [id number] Closed Auto-Generate d Referral 12/23/2020 01/22/2022 1 1 [facility] for visit Narrative* MRI/CT (Routine) - Closed Specialty Diagnoses / Procedures Referred By Contac t Referred To Contact CT IMAGING Diagnoses COPD, moderate (HCC) Recurrent pneumonia Other specified rheumatoid arthritis, multiple sites (HCC) Former cigarette smoker Procedures CT CHEST WO IVCON DIAGNOSTIC COMPUTED TOMOGRAPHY THORAX W/O Emi Willis MD [address] [place] [address] Phone: tel: fax: [place] [address] Referral ID Status Reason Start Date Expiration Date V isits Requested Visits Authorized [id number] Closed Auto-Generate d Referral 08/18/2024 10/17/2024 1 1 [facility] Diagnostic Procedure Only (Urgent) - Closed Specialty Diagnoses / Procedures Referred By Contac t Referred To Contact XR IMAGING Diagnoses Acute pain of right knee Procedures XR KNEE GENERAL 4V AP BOTH/PA BOTH/LAT/MERC RIGHT RADIOLOGIC EXAM KNEE COMPLETE 4/MORE VIEWS Lain Martino APRN.ALMOND ROASTER [address] [place] [address] Phone: tel: fax: [place] [address] Referral ID Status Reason Start Date Expiration Date V isits Requested Visits Authorized [id number] Closed Auto-Generate d Referral 09/15/2024 10/15/2025 1 1 [facility] Summary Purpose Family History No Family History Records Found Relationship Condition Age at Onset Recorded Date/T andrea mother Cerebrovascular accident (CVA) Unknown Hypertension Unknown father Malignant neoplasm Unknown Diabetes mellitus Unknown sister Disorder of thyroid Unknown Advance Directives No Advanced Directives Records FoundDocuments on File Type Date Recorded Patient Patient Office Rep Expl anation Advance Directive(s) 09/28/2020 5:34 PM Advance Directive(s) 08/05/2020 10:59 AM Advance Directive(s) 08/02/2020 12:26 PM Advance Directive(s) 06/03/2020 7:37 AM Advance Directive(s) 04/06/2020 8:02 AM Advance Directive(s) 09/30/2018 9:10 AM Documents on File Type Date Recorded Patient Patient Office Rep Expl anation Advance Directive(s) 09/28/2020 5:34 PM Advance Directive(s) 08/05/2020 10:59 AM Advance Directive(s) 08/02/2020 12:26 PM Advance Directive(s) 06/03/2020 7:37 AM Advance Directive(s) 04/06/2020 8:02 AM Advance Directive(s) 09/30/2018 9:10 AM Advance Directive Response Recorded Date/ Time Advance Directives No January 18, 2015 9:14am Living Will No July 24, 2021 10:01am Power of Technical Support Assistant No July 24 10:01am Advance Directive Response Recorded Date/ Time Advance Directives No January 18, 2015 9:14am Living Will No August 09, 2021 1:42pm Power of Technical Support Assistant No August 09 1:42pm Advance Directive Response Recorded Date/ Time Advance Directives No January 18, 2015 9:14am Living Will No October 23, 2021 8:30pm Power of Technical Support Assistant No October 23 8:30pm Advance Directive Response Recorded Date/ Time Advance Directives No November 01 10:15am Living Will No November 06, 2021 11:08pm Power of Technical Support Assistant No November 06 11:08pm Advance Directive Response Recorded Date/ Time Advance Directives No November 01 10:15am Living Will No December 22 3:40pm Power of Technical Support Assistant No December 22, 2021 3:40pm Advance Directive Response Recorded Date/ Time Advance Directives No November 01 10:15am Living Will No January 05, 2022 12:28pm Power of Technical Support Assistant No December 12:28pm Advance Directive Response Recorded Date/ Time Advance Directives No November 01 10:15am Living Will No January 22 5:32pm Power of Technical Support Assistant No January 22, 2022 5:32pm Latest Code Status on File Code Status Date Activated Date Inactivated Comments Full Code 02/12/2022 7:29 PM Latest Code Status on File Code Status Date Activated Date Inactivated Comments Full Code 02/12/2022 7:29 PM Advance Directive Response Recorded Date/ Time Advance Directives No November 01 9:15am Living Will No January 22 4:32pm Power of Technical Support Assistant No January 22, 2022 4:32pm Latest Code Status on File Code Status Date Activated Date Inactivated Comments Full Code 02/12/2022 7:29 PM Latest Code Status on File Code Status Date Activated Date Inactivated Comments Full Code 02/12/2022 7:29 PM Advance Directive Response Recorded Date/ Time Advance Directives No November 01 10:15am Living Will No September 20, 2022 1 1:47am Power of Technical Support Assistant No September 20, 2022 11:47am Latest Code Status on File Code Status Date Activated Date Inactivated Comments Full Code 02/12/2022 7:29 PM 12/13/2022 11:27 AM Latest Code Status on File Code Status Date Activated Date Inactivated Comments Full Code 02/12/2022 7:29 PM 12/13/2022 11:27 AM Advance Directive Response Recorded Date/ Time Advance Directives No November 01 9:15am Living Will No September 20, 2022 1 0:47am Power of Technical Support Assistant No September 20, 2022 10:47am Date Activated Date Inactivated Comments 02/12/2022 7:29 PM 12/13/2022 11:27 AM Date Activated Date Inactivated Comments 02/12/2022 7:29 PM 12/13/2022 11:27 AM Advance Directive Response Recorded Date/ Time Living Will No June 11, 025 3:53pm Do you have a Healthcare Power of Technical Support Assistant? No June 11, 2024 3:53pm Living Will No March 27, 024 5:44pm Do you have a Healthcare Power of Technical Support Assistant? No March 27, 2024 5:44pm Living Will No July 25, 2024 11:40am Do you have a Healthcare Power of Technical Support Assistant? No July 25, 2024 11:40am Advance Directives No November 01 10:15am Advance Directive Response Recorded Date/ Time Do you have a Healthcare Power of Technical Support Assistant? No November 27, 2024 5:24pm Advance Directives No November 01 10:15am Reason for Referral Specialty Diagnoses / Procedures Referred By Miguel lind Referred To Contact CT IMAGING Diagnoses Idiopathic chronic pancreatitis (HCC) Pancreatic duct stricture Severe protein-calorie malnutrition (HCC) Steatorrhea, pancreatic Abnormal weight loss Abnormal findings on diagnostic imaging of liver and biliary tract Procedures CT PANCREAS/PELVIS W IVCON CT ABD & PELVIS W/CONTRAST Vonnie Esparza MD [address] [place] [address] Referral ID Status Reason Start Date Expiration Date Visits Requested Visits Authorized [id number] Additional Clinical Info Needed Auto-Generat ed Referral 07/12/2021 08/11/2022 1 1 Specialty Diagnoses / Procedures Referred By Miguel lind Referred To Contact Gastroenterology Diagnoses Idiopathic chronic pancreatitis (HCC) Pancreatic duct stricture Severe protein-calorie malnutrition (HCC) Steatorrhea, pancreatic Abnormal weight loss Abnormal findings on diagnostic imaging of liver and biliary tract Procedures CONSULT TO GASTROENTEROLOGY OFFICE/OUTPATIENT NEW HIGH MDM 60-74 MINUTES Vonnie Esparza MD [address] [facility] [address] [place] [address] Referral ID Status Reason Start Date Expiration Date Visits Requested Visits Authorized [id number] Authorized PCP Requested Referral 07/12/2021 07/12/2022 1 1 Specialty Diagnoses / Procedures Referred By Contac t Referred To Contact Pain Management Diagnoses Acute low back pain with sciatica, sciatica laterality unspecified, unspecified back pain laterality Hx of compression fracture of spine Procedures CONSULT TO PAIN MGT OFFICE/OUTPATIENT [facility] 60-74 MINUTES PodlogSheyla simpson APRN.ALMOND ROASTER [address] [place] [address] Referral ID Status Reason Start Date Expiration Date Visits Requested Visits Authorized [id number] Authorized PCP Requested Referral 08/21/2021 08/21/2022 1 1 Specialty Diagnoses / Procedures Referred By Contac t Referred To Contact Orthopedics Diagnoses Closed fracture of distal end of right radius, unspecified fracture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 Patient Records regulations: The Federal rules restrict any use of the information to criminally investigate or prosecute any alcohol or drug abuse patient.[facility] CincinnatiIn the event this information is protected by the Federal Confidentiality of Alcohol and Drug Abuse Patient Records regulations: The Federal rules restrict any use of the information to criminally investigate or prosecute any alcohol or drug abuse patient.[facility] CincinnatiIn the event this information is protected by the Federal Confidentiality of Alcohol and Drug Abuse Patient Records regulations: The Federal rules restrict any use of the information to criminally investigate or prosecute any alcohol or drug abuse patient.[facility] CincinnatiIn the event this information is protected by the Federal Confidentiality of Alcohol and Drug Abuse Patient Records regulations: The Federal rules restrict any use of the information to criminally investigate or prosecute any alcohol or drug abuse patient.[facility] CincinnatiIn the event this information is protected by the Federal Confidentiality of Alcohol and Drug Abuse Patient Records regulations: The Federal rules restrict any use of the information to criminally investigate or prosecute any alcohol or drug abuse patient.[facility] CincinnatiIn the event this information is protected by the Federal Confidentiality of Alcohol and Drug Abuse Patient Records regulations: The Federal rules restrict any use of the information to criminally investigate or prosecute any alcohol or drug abuse patient.[facility] CincinnatiIn the event this information is protected by the Federal Confidentiality of Alcohol and Drug Abuse Patient Records regulations: The Federal rules restrict any use of the information to criminally investigate or prosecute any alcohol or drug abuse patient.[facility] CincinnatiIn the event this information is protected by the Federal Confidentiality of Alcohol and Drug Abuse Patient Records regulations: The Federal rules restrict any use of the information to criminally investigate or prosecute any alcohol or drug abuse patient.[facility] CincinnatiIn the event this information is protected by the Federal Confidentiality of Alcohol and Drug Abuse Patient Records regulations: The Federal rules restrict any use of the information to criminally investigate or prosecute any alcohol or drug abuse patient.[facility] CincinnatiIn the event this information is protected by the Federal Confidentiality of Alcohol and Drug Abuse Patient Records regulations: The Federal rules restrict any use of the information to criminally investigate or prosecute any alcohol or drug abuse patient.[facility] CincinnatiIn the event this information is protected by the Federal Confidentiality of Alcohol and Drug Abuse Patient Records regulations: The Federal rules restrict any use of the information to criminally investigate or prosecute any alcohol or drug abuse patient.[facility] CincinnatiIn the event this information is protected by the Federal Confidentiality of Alcohol and Drug Abuse Patient Records regulations: The Federal rules restrict any use of the information to criminally investigate or prosecute any alcohol or drug abuse patient.[facility] CincinnatiIn the event this information is protected by the Federal Confidentiality of Alcohol and Drug Abuse Patient Records regulations: The Federal rules restrict any use of the information to criminally investigate or prosecute any alcohol or drug abuse patient.[facility] CincinnatiIn the event this information is protected by the Federal Confidentiality of Alcohol and Drug Abuse Patient Records regulations: The Federal rules restrict any use of the information to criminally investigate or prosecute any alcohol or drug abuse patient.[facility] CincinnatiIn the event this information is protected by the Federal Confidentiality of Alcohol and Drug Abuse Patient Records regulations: The Federal rules restrict any use of the information to criminally investigate or prosecute any alcohol or drug abuse patient.[facility] CincinnatiIn the event this information is protected by the Federal Confidentiality of Alcohol and Drug Abuse Patient Records regulations: The Federal rules restrict any use of the information to criminally investigate or prosecute any alcohol or drug abuse patient.[facility] CincinnatiIn the event this information is protected by the Federal Confidentiality of Alcohol and Drug Abuse Patient Records regulations: The Federal rules restrict any use of the information to criminally investigate or prosecute any alcohol or drug abuse patient.[facility] CincinnatiIn the event this information is protected by the Federal Confidentiality of Alcohol and Drug Abuse Patient Records regulations: The Federal rules restrict any use of the information to criminally investigate or prosecute any alcohol or drug abuse patient.[facility] CincinnatiIn the event this information is protected by the Federal Confidentiality of Alcohol and Drug Abuse Patient Records regulations: The Federal rules restrict any use of the information to criminally investigate or prosecute any alcohol or drug abuse patient.[facility] CincinnatiIn the event this information is protected by the Federal Confidentiality of Alcohol and Drug Abuse Patient Records regulations: The Federal rules restrict any use of the information to criminally investigate or prosecute any alcohol or drug abuse patient.[facility] CincinnatiIn the event this information is protected by the Federal Confidentiality of Alcohol and Drug Abuse Patient Records regulations: The Federal rules restrict any use of the information to criminally investigate or prosecute any alcohol or drug abuse patient.[facility] CincinnatiIn the event this information is protected by the Federal Confidentiality of Alcohol and Drug Abuse Patient Records regulations: The Federal rules restrict any use of the information to criminally investigate or prosecute any alcohol or drug abuse patient.[facility] CincinnatiIn the event this information is protected by the Federal Confidentiality of Alcohol and Drug Abuse Patient Records regulations: The Federal rules restrict any use of the information to criminally investigate or prosecute any alcohol or drug abuse patient.[facility] CincinnatiIn the event this information is protected by the Federal Confidentiality of Alcohol and Drug Abuse Patient Records regulations: The Federal rules restrict any use of the information to criminally investigate or prosecute any alcohol or drug abuse patient.[facility] CincinnatiIn the event this information is protected by the Federal Confidentiality of Alcohol and Drug Abuse Patient Records regulations: The Federal rules restrict any use of the information to criminally investigate or prosecute any alcohol or drug abuse patient.[facility] CincinnatiIn the event this information is protected by the Federal Confidentiality of Alcohol and Drug Abuse Patient Records regulations: The Federal rules restrict any use of the information to criminally investigate or prosecute any alcohol or drug abuse patient.[facility] CincinnatiIn the event this information is protected by the Federal Confidentiality of Alcohol and Drug Abuse Patient Records regulations: The Federal rules restrict any use of the information to criminally investigate or prosecute any alcohol or drug abuse patient.[facility] CincinnatiIn the event this information is protected by the Federal Confidentiality of Alcohol and Drug Abuse Patient Records regulations: The Federal rules restrict any use of the information to criminally investigate or prosecute any alcohol or drug abuse patient.[facility] CincinnatiIn the event this information is protected by the Federal Confidentiality of Alcohol and Drug Abuse Patient Records regulations: The Federal rules restrict any use of the information to criminally investigate or prosecute any alcohol or drug abuse patient.[facility] CincinnatiIn the event this information is protected by the Federal Confidentiality of Alcohol and Drug Abuse Patient Records regulations: The Federal rules restrict any use of the information to criminally investigate or prosecute any alcohol or drug abuse patient.[facility] CincinnatiIn the event this information is protected by the Federal Confidentiality of Alcohol and Drug Abuse Patient Records regulations: The Federal rules restrict any use of the information to criminally investigate or prosecute any alcohol or drug abuse patient.[facility] the event this information is protected by the Federal Confidentiality of Alcohol and Drug Abuse Patient Records regulations: The Federal rules restrict any use of the information to criminally investigate or prosecute any alcohol or drug abuse patient.[facility] CincinnatiIn the event this information is protected by the Federal Confidentiality of Alcohol and Drug Abuse Patient Records regulations: The Federal rules restrict any use of the information to criminally investigate or prosecute any alcohol or drug abuse patient.[facility] CincinnatiIn the event this information is protected by the Federal Confidentiality of Alcohol and Drug Abuse Patient Records regulations: The Federal rules restrict any use of the information to criminally investigate or prosecute any alcohol or drug abuse patient.[facility]In the event this information is protected by the Federal Confidentiality of Alcohol and Drug Abuse Patient Records regulations: The Federal rules restrict any use of the information to criminally investigate or prosecute any alcohol or drug abuse patient.[facility] CincinnatiIn the event this information is protected by the Federal Confidentiality of Alcohol and Drug Abuse Patient Records regulations: The Federal rules restrict any use of the information to criminally investigate or prosecute any alcohol or drug abuse patient.[facility] CincinnatiIn the event this information is protected by the Federal Confidentiality of Alcohol and Drug Abuse Patient Records regulations: The Federal rules restrict any use of the information to criminally investigate or prosecute any alcohol or drug abuse patient.[facility] CincinnatiIn the event this information is protected by the Federal Confidentiality of Alcohol and Drug Abuse Patient Records regulations: The Federal rules restrict any use of the information to criminally investigate or prosecute any alcohol or drug abuse patient.[facility] CincinnatiIn the event this information is protected by the Federal Confidentiality of Alcohol and Drug Abuse Patient Records regulations: The Federal rules restrict any use of the information to criminally investigate or prosecute any alcohol or drug abuse patient.[facility] CincinnatiIn the event this information is protected by the Federal Confidentiality of Alcohol and Drug Abuse Patient Records regulations: The Federal rules restrict any use of the information to criminally investigate or prosecute any alcohol or drug abuse patient.[facility] [place]In the event this information is protected by the Federal Confidentiality of Alcohol and Drug Abuse Patient Records regulations: The Federal rules restrict any use of the information to criminally investigate or prosecute any alcohol or drug abuse patient.[facility] [place]In the event this information is protected by the Federal Confidentiality of Alcohol and Drug Abuse Patient Records regulations: The Federal rules restrict any use of the information to criminally investigate or prosecute any alcohol or drug abuse patient.[facility] [place]In the event this information is protected by the Federal Confidentiality of Alcohol and Drug Abuse Patient Records regulations: The Federal rules restrict any use of the information to criminally investigate or prosecute any alcohol or drug abuse patient.[facility] [place]In the event this information is protected by the Federal Confidentiality of Alcohol and Drug Abuse Patient Records regulations: The Federal rules restrict any use of the information to criminally investigate or prosecute any alcohol or drug abuse patient.[facility] [place]In the event this information is protected by the Federal Confidentiality of Alcohol and Drug Abuse Patient Records regulations: The Federal rules restrict any use of the information to criminally investigate or prosecute any alcohol or drug abuse patient.[facility] [place]In the event this information is protected by the Federal Confidentiality of Alcohol and Drug Abuse Patient Records regulations: The Federal rules restrict any use of the information to criminally investigate or prosecute any alcohol or drug abuse patient.[facility] [place]In the event this information is protected by the Federal Confidentiality of Alcohol and Drug Abuse Patient Records regulations: The Federal rules restrict any use of the information to criminally investigate or prosecute any alcohol or drug abuse patient.[facility] [place]In the event this information is protected by the Federal Confidentiality of Alcohol and Drug Abuse Patient Records regulations: The Federal rules restrict any use of the information to criminally investigate or prosecute any alcohol or drug abuse patient.[facility] [place]In the event this information is protected by the Federal Confidentiality of Alcohol and Drug Abuse Patient Records regulations: The Federal rules restrict any use of the information to criminally investigate or prosecute any alcohol or drug abuse patient.[facility] [place]In the event this information is protected by the Federal Confidentiality of Alcohol and Drug Abuse Patient Records regulations: The Federal rules restrict any use of the information to criminally investigate or prosecute any alcohol or drug abuse patient.[facility] [place]In the event this information is protected by the Federal Confidentiality of Alcohol and Drug Abuse Patient Records regulations: The Federal rules restrict any use of the information to criminally investigate or prosecute any alcohol or drug abuse patient.[facility] [place]In the event this information is protected by the Federal Confidentiality of Alcohol and Drug Abuse Patient Records regulations: The Federal rules restrict any use of the information to criminally investigate or prosecute any alcohol or drug abuse patient.[facility] [place]In the event this information is protected by the Federal Confidentiality of Alcohol and Drug Abuse Patient Records regulations: The Federal rules restrict any use of the information to criminally investigate or prosecute any alcohol or drug abuse patient.[facility] [place]In the event this information is protected by the Federal Confidentiality of Alcohol and Drug Abuse Patient Records regulations: The Federal rules restrict any use of the information to criminally investigate or prosecute any alcohol or drug abuse patient.[facility] [place]In the event this information is protected by the Federal Confidentiality of Alcohol and Drug Abuse Patient Records regulations: The Federal rules restrict any use of the information to criminally investigate or prosecute any alcohol or drug abuse patient.[facility] [place]In the event this information is protected by the Federal Confidentiality of Alcohol and Drug Abuse Patient Records regulations: The Federal rules restrict any use of the information to criminally investigate or prosecute any alcohol or drug abuse patient.[facility] [place]In the event this information is protected by the Federal Confidentiality of Alcohol and Drug Abuse Patient Records regulations: The Federal rules restrict any use of the information to criminally investigate or prosecute any alcohol or drug abuse patient.[facility] [place]In the event this information is protected by the Federal Confidentiality of Alcohol and Drug Abuse Patient Records regulations: The Federal rules restrict any use of the information to criminally investigate or prosecute any alcohol or drug abuse patient.[facility] [place]In the event this information is protected by the Federal Confidentiality of Alcohol and Drug Abuse Patient Records regulations: The Federal rules restrict any use of the information to criminally investigate or prosecute any alcohol or drug abuse patient.[facility] [place]In the event this information is protected by the Federal Confidentiality of Alcohol and Drug Abuse Patient Records regulations: The Federal rules restrict any use of the information to criminally investigate or prosecute any alcohol or drug abuse patient.[facility] [place]In the event this information is protected by the Federal Confidentiality of Alcohol and Drug Abuse Patient Records regulations: The Federal rules restrict any use of the information to criminally investigate or prosecute any alcohol or drug abuse patient.[facility] [place]In the event this information is protected by the Federal Confidentiality of Alcohol and Drug Abuse Patient Records regulations: The Federal rules restrict any use of the information to criminally investigate or prosecute any alcohol or drug abuse patient.[facility] [place]In the event this information is protected by the Federal Confidentiality of Alcohol and Drug Abuse Patient Records regulations: The Federal rules restrict any use of the information to criminally investigate or prosecute any alcohol or drug abuse patient.[facility] [place]In the event this information is protected by the Federal Confidentiality of Alcohol and Drug Abuse Patient Records regulations: The Federal rules restrict any use of the information to criminally investigate or prosecute any alcohol or drug abuse patient.[facility] [place]In the event this information is protected by the Federal Confidentiality of Alcohol and Drug Abuse Patient Records regulations: The Federal rules restrict any use of the information to criminally investigate or prosecute any alcohol or drug abuse patient.[facility] [place]In the event this information is protected by the Federal Confidentiality of Alcohol and Drug Abuse Patient Records regulations: The Federal rules restrict any use of the information to criminally investigate or prosecute any alcohol or drug abuse patient.[facility] [place]In the event this information is protected by the Federal Confidentiality of Alcohol and Drug Abuse Patient Records regulations: The Federal rules restrict any use of the information to criminally investigate or prosecute any alcohol or drug abuse patient.[facility] [place]In the event this information is protected by the Federal Confidentiality of Alcohol and Drug Abuse Patient Records regulations: The Federal rules restrict any use of the information to criminally investigate or prosecute any alcohol or drug abuse patient.[facility] [place]In the event this information is protected by the Federal Confidentiality of Alcohol and Drug Abuse Patient Records regulations: The Federal rules restrict any use of the information to criminally investigate or prosecute any alcohol or drug abuse patient.[facility] [place]In the event this information is protected by the Federal Confidentiality of Alcohol and Drug Abuse Patient Records regulations: The Federal rules restrict any use of the information to criminally investigate or prosecute any alcohol or drug abuse patient.[facility] [place]In the event this information is protected by the Federal Confidentiality of Alcohol and Drug Abuse Patient Records regulations: The Federal rules restrict any use of the information to criminally investigate or prosecute any alcohol or drug abuse patient.[facility] [place]In the event this information is protected by the Federal Confidentiality of Alcohol and Drug Abuse Patient Records regulations: The Federal rules restrict any use of the information to criminally investigate or prosecute any alcohol or drug abuse patient.[facility] [place]In the event this information is protected by the Federal Confidentiality of Alcohol and Drug Abuse Patient Records regulations: The Federal rules restrict any use of the information to criminally investigate or prosecute any alcohol or drug abuse patient.[facility] [place]In the event this information is protected by the Federal Confidentiality of Alcohol and Drug Abuse Patient Records regulations: The Federal rules restrict any use of the information to criminally investigate or prosecute any alcohol or drug abuse patient.[facility] [place]In the event this information is protected by the Federal Confidentiality of Alcohol and Drug Abuse Patient Records regulations: The Federal rules restrict any use of the information to criminally investigate or prosecute any alcohol or drug abuse patient.[facility] [place]In the event this information is protected by the Federal Confidentiality of Alcohol and Drug Abuse Patient Records regulations: The Federal rules restrict any use of the information to criminally investigate or prosecute any alcohol or drug abuse patient.[facility] [place]In the event this information is protected by the Federal Confidentiality of Alcohol and Drug Abuse Patient Records regulations: The Federal rules restrict any use of the information to criminally investigate or prosecute any alcohol or drug abuse patient.[facility] [place]In the event this information is protected by the Federal Confidentiality of Alcohol and Drug Abuse Patient Records regulations: The Federal rules restrict any use of the information to criminally investigate or prosecute any alcohol or drug abuse patient.[facility] [place]In the event this information is protected by the Federal Confidentiality of Alcohol and Drug Abuse Patient Records regulations: The Federal rules restrict any use of the information to criminally investigate or prosecute any alcohol or drug abuse patient.[facility] [place]In the event this information is protected by the Federal Confidentiality of Alcohol and Drug Abuse Patient Records regulations: The Federal rules restrict any use of the information to criminally investigate or prosecute any alcohol or drug abuse patient.[facility] [place]In the event this information is protected by the Federal Confidentiality of Alcohol and Drug Abuse Patient Records regulations: The Federal rules restrict any use of the information to criminally investigate or prosecute any alcohol or drug abuse patient.[facility] the event this information is protected by the Federal Confidentiality of Alcohol and Drug Abuse Patient Records regulations: The Federal rules restrict any use of the information to criminally investigate or prosecute any alcohol or drug abuse patient.[facility] [place]In the event this information is protected by the Federal Confidentiality of Alcohol and Drug Abuse Patient Records regulations: The Federal rules restrict any use of the information to criminally investigate or prosecute any alcohol or drug abuse patient.[facility] [place]In the event this information is protected by the Federal Confidentiality of Alcohol and Drug Abuse Patient Records regulations: The Federal rules restrict any use of the information to criminally investigate or prosecute any alcohol or drug abuse patient.[facility]In the event this information is protected by the Federal Confidentiality of Alcohol and Drug Abuse Patient Records regulations: The Federal rules restrict any use of the information to criminally investigate or prosecute any alcohol or drug abuse patient.[facility] [place]In the event this information is protected by the Federal Confidentiality of Alcohol and Drug Abuse Patient Records regulations: The Federal rules restrict any use of the information to criminally investigate or prosecute any alcohol or drug abuse patient.[facility] [place]In the event this information is protected by the Federal Confidentiality of Alcohol and Drug Abuse Patient Records regulations: The Federal rules restrict any use of the information to criminally investigate or prosecute any alcohol or drug abuse patient.[facility] [place]In the event this information is protected by the Federal Confidentiality of Alcohol and Drug Abuse Patient Records regulations: The Federal rules restrict any use of the information to criminally investigate or prosecute any alcohol or drug abuse patient.[facility] [place]In the event this information is protected by the Federal Confidentiality of Alcohol and Drug Abuse Patient Records regulations: The Federal rules restrict any use of the information to criminally investigate or prosecute any alcohol or drug abuse patient.[facility] [place]In the event this information is protected by the Federal Confidentiality of Alcohol and Drug Abuse Patient Records regulations: The Federal rules restrict any use of the information to criminally investigate or prosecute any alcohol or drug abuse patient.[facility] [place]In the event this information is protected by the Federal Confidentiality of Alcohol and Drug Abuse Patient Records regulations: The Federal rules restrict any use of the information to criminally investigate or prosecute any alcohol or drug abuse patient.[facility] [place]In the event this information is protected by the Federal Confidentiality of Alcohol and Drug Abuse Patient Records regulations: The Federal rules restrict any use of the information to criminally investigate or prosecute any alcohol or drug abuse patient.[facility] [place]In the event this information is protected by the Federal Confidentiality of Alcohol and Drug Abuse Patient Records regulations: The Federal rules restrict any use of the information to criminally investigate or prosecute any alcohol or drug abuse patient.[facility] [place]In the event this information is protected by the Federal Confidentiality of Alcohol and Drug Abuse Patient Records regulations: The Federal rules restrict any use of the information to criminally investigate or prosecute any alcohol or drug abuse patient.[facility] [place]In the event this information is protected by the Federal Confidentiality of Alcohol and Drug Abuse Patient Records regulations: The Federal rules restrict any use of the information to criminally investigate or prosecute any alcohol or drug abuse patient.[facility] [place]In the event this information is protected by the Federal Confidentiality of Alcohol and Drug Abuse Patient Records regulations: The Federal rules restrict any use of the information to criminally investigate or prosecute any alcohol or drug abuse patient.[facility] [place]In the event this information is protected by the Federal Confidentiality of Alcohol and Drug Abuse Patient Records regulations: The Federal rules restrict any use of the information to criminally investigate or prosecute any alcohol or drug abuse patient.[facility] [place]In the event this information is protected by the Federal Confidentiality of Alcohol and Drug Abuse Patient Records regulations: The Federal rules restrict any use of the information to criminally investigate or prosecute any alcohol or drug abuse patient.[facility] [place]In the event this information is protected by the Federal Confidentiality of Alcohol and Drug Abuse Patient Records regulations: The Federal rules restrict any use of the information to criminally investigate or prosecute any alcohol or drug abuse patient.[facility] [place]In the event this information is protected by the Federal Confidentiality of Alcohol and Drug Abuse Patient Records regulations: The Federal rules restrict any use of the information to criminally investigate or prosecute any alcohol or drug abuse patient.[facility] [place]In the event this information is protected by the Federal Confidentiality of Alcohol and Drug Abuse Patient Records regulations: The Federal rules restrict any use of the information to criminally investigate or prosecute any alcohol or drug abuse patient.[facility] [place]In the event this information is protected by the Federal Confidentiality of Alcohol and Drug Abuse Patient Records regulations: The Federal rules restrict any use of the information to criminally investigate or prosecute any alcohol or drug abuse patient.[facility] [place]In the event this information is protected by the Federal Confidentiality of Alcohol and Drug Abuse Patient Records regulations: The Federal rules restrict any use of the information to criminally investigate or prosecute any alcohol or drug abuse patient.[facility] [place]In the event this information is protected by the Federal Confidentiality of Alcohol and Drug Abuse Patient Records regulations: The Federal rules restrict any use of the information to criminally investigate or prosecute any alcohol or drug abuse patient.[facility] [place]In the event this information is protected by the Federal Confidentiality of Alcohol and Drug Abuse Patient Records regulations: The Federal rules restrict any use of the information to criminally investigate or prosecute any alcohol or drug abuse patient.[facility] [place]In the event this information is protected by the Federal Confidentiality of Alcohol and Drug Abuse Patient Records regulations: The Federal rules restrict any use of the information to criminally investigate or prosecute any alcohol or drug abuse patient.[facility] [place]In the event this information is protected by the Federal Confidentiality of Alcohol and Drug Abuse Patient Records regulations: The Federal rules restrict any use of the information to criminally investigate or prosecute any alcohol or drug abuse patient.[facility] [place]In the event this information is protected by the Federal Confidentiality of Alcohol and Drug Abuse Patient Records regulations: The Federal rules restrict any use of the information to criminally investigate or prosecute any alcohol or drug abuse patient.[facility] [place]In the event this information is protected by the Federal Confidentiality of Alcohol and Drug Abuse Patient Records regulations: The Federal rules restrict any use of the information to criminally investigate or prosecute any alcohol or drug abuse patient.[facility] [place]In the event this information is protected by the Federal Confidentiality of Alcohol and Drug Abuse Patient Records regulations: The Federal rules restrict any use of the information to criminally investigate or prosecute any alcohol or drug abuse patient.[facility] [place]In the event this information is protected by the Federal Confidentiality of Alcohol and Drug Abuse Patient Records regulations: The Federal rules restrict any use of the information to criminally investigate or prosecute any alcohol or drug abuse patient.[facility] [place]In the event this information is protected by the Federal Confidentiality of Alcohol and Drug Abuse Patient Records regulations: The Federal rules restrict any use of the information to criminally investigate or prosecute any alcohol or drug abuse patient.[facility] [place]In the event this information is protected by the Federal Confidentiality of Alcohol and Drug Abuse Patient Records regulations: The Federal rules restrict any use of the information to criminally investigate or prosecute any alcohol or drug abuse patient.[facility] [place]In the event this information is protected by the Federal Confidentiality of Alcohol and Drug Abuse Patient Records regulations: The Federal rules restrict any use of the information to criminally investigate or prosecute any alcohol or drug abuse patient.[facility] [place]In the event this information is protected by the Federal Confidentiality of Alcohol and Drug Abuse Patient Records regulations: The Federal rules restrict any use of the information to criminally investigate or prosecute any alcohol or drug abuse patient.[facility] [place]In the event this information is protected by the Federal Confidentiality of Alcohol and Drug Abuse Patient Records regulations: The Federal rules restrict any use of the information to criminally investigate or prosecute any alcohol or drug abuse patient.[facility] [place]In the event this information is protected by the Federal Confidentiality of Alcohol and Drug Abuse Patient Records regulations: The Federal rules restrict any use of the information to criminally investigate or prosecute any alcohol or drug abuse patient.[facility] [place]In the event this information is protected by the Federal Confidentiality of Alcohol and Drug Abuse Patient Records regulations: The Federal rules restrict any use of the information to criminally investigate or prosecute any alcohol or drug abuse patient.[facility] [place]In the event this information is protected by the Federal Confidentiality of Alcohol and Drug Abuse Patient Records regulations: The Federal rules restrict any use of the information to criminally investigate or prosecute any alcohol or drug abuse patient.[facility] [place]In the event this information is protected by the Federal Confidentiality of Alcohol and Drug Abuse Patient Records regulations: The Federal rules restrict any use of the information to criminally investigate or prosecute any alcohol or drug abuse patient.[facility] [place]In the event this information is protected by the Federal Confidentiality of Alcohol and Drug Abuse Patient Records regulations: The Federal rules restrict any use of the information to criminally investigate or prosecute any alcohol or drug abuse patient.[facility] [place]In the event this information is protected by the Federal Confidentiality of Alcohol and Drug Abuse Patient Records regulations: The Federal rules restrict any use of the information to criminally investigate or prosecute any alcohol or drug abuse patient.[facility] [place]In the event this information is protected by the Federal Confidentiality of Alcohol and Drug Abuse Patient Records regulations: The Federal rules restrict any use of the information to criminally investigate or prosecute any alcohol or drug abuse patient.[facility] [place]In the event this information is protected by the Federal Confidentiality of Alcohol and Drug Abuse Patient Records regulations: The Federal rules restrict any use of the information to criminally investigate or prosecute any alcohol or drug abuse patient.[facility] [place]In the event this information is protected by the Federal Confidentiality of Alcohol and Drug Abuse Patient Records regulations: The Federal rules restrict any use of the information to criminally investigate or prosecute any alcohol or drug abuse patient.[facility] [place]In the event this information is protected by the Federal Confidentiality of Alcohol and Drug Abuse Patient Records regulations: The Federal rules restrict any use of the information to criminally investigate or prosecute any alcohol or drug abuse patient.[facility] [place]In the event this information is protected by the Federal Confidentiality of Alcohol and Drug Abuse Patient Records regulations: The Federal rules restrict any use of the information to criminally investigate or prosecute any alcohol or drug abuse patient.[facility] [place]In the event this information is protected by the Federal Confidentiality of Alcohol and Drug Abuse Patient Records regulations: The Federal rules restrict any use of the information to criminally investigate or prosecute any alcohol or drug abuse patient.[facility] [place]In the event this information is protected by the Federal Confidentiality of Alcohol and Drug Abuse Patient Records regulations: The Federal rules restrict any use of the information to criminally investigate or prosecute any alcohol or drug abuse patient.[facility] [place]In the event this information is protected by the Federal Confidentiality of Alcohol and Drug Abuse Patient Records regulations: The Federal rules restrict any use of the information to criminally investigate or prosecute any alcohol or drug abuse patient.[facility] [place]In the event this information is protected by the Federal Confidentiality of Alcohol and Drug Abuse Patient Records regulations: The Federal rules restrict any use of the information to criminally investigate or prosecute any alcohol or drug abuse patient.[facility] the event this information is protected by the Federal Confidentiality of Alcohol and Drug Abuse Patient Records regulations: The Federal rules restrict any use of the information to criminally investigate or prosecute any alcohol or drug abuse patient.[facility] [place]In the event this information is protected by the Federal Confidentiality of Alcohol and Drug Abuse Patient Records regulations: The Federal rules restrict any use of the information to criminally investigate or prosecute any alcohol or drug abuse patient.[facility] [place]In the event this information is protected by the Federal Confidentiality of Alcohol and Drug Abuse Patient Records regulations: The Federal rules restrict any use of the information to criminally investigate or prosecute any alcohol or drug abuse patient.[facility]In the event this information is protected by the Federal Confidentiality of Alcohol and Drug Abuse Patient Records regulations: The Federal rules restrict any use of the information to criminally investigate or prosecute any alcohol or drug abuse patient.[facility] [place]In the event this information is protected by the Federal Confidentiality of Alcohol and Drug Abuse Patient Records regulations: The Federal rules restrict any use of the information to criminally investigate or prosecute any alcohol or drug abuse patient.[facility] [place]In the event this information is protected by the Federal Confidentiality of Alcohol and Drug Abuse Patient Records regulations: The Federal rules restrict any use of the information to criminally investigate or prosecute any alcohol or drug abuse patient.[facility] [place]In the event this information is protected by the Federal Confidentiality of Alcohol and Drug Abuse Patient Records regulations: The Federal rules restrict any use of the information to criminally investigate or prosecute any alcohol or drug abuse patient.[facility] [place]In the event this information is protected by the Federal Confidentiality of Alcohol and Drug Abuse Patient Records regulations: The Federal rules restrict any use of the information to criminally investigate or prosecute any alcohol or drug abuse patient.[facility] [place]In the event this information is protected by the Federal Confidentiality of Alcohol and Drug Abuse Patient Records regulations: The Federal rules restrict any use of the information to criminally investigate or prosecute any alcohol or drug abuse patient.[facility] [place]In the event this information is protected by the Federal Confidentiality of Alcohol and Drug Abuse Patient Records regulations: The Federal rules restrict any use of the information to criminally investigate or prosecute any alcohol or drug abuse patient.[facility] [place]In the event this information is protected by the Federal Confidentiality of Alcohol and Drug Abuse Patient Records regulations: The Federal rules restrict any use of the information to criminally investigate or prosecute any alcohol or drug abuse patient.[facility] [place]In the event this information is protected by the Federal Confidentiality of Alcohol and Drug Abuse Patient Records regulations: The Federal rules restrict any use of the information to criminally investigate or prosecute any alcohol or drug abuse patient.[facility] [place]In the event this information is protected by the Federal Confidentiality of Alcohol and Drug Abuse Patient Records regulations: The Federal rules restrict any use of the information to criminally investigate or prosecute any alcohol or drug abuse patient.[facility] [place]In the event this information is protected by the Federal Confidentiality of Alcohol and Drug Abuse Patient Records regulations: The Federal rules restrict any use of the information to criminally investigate or prosecute any alcohol or drug abuse patient.[facility] [place]In the event this information is protected by the Federal Confidentiality of Alcohol and Drug Abuse Patient Records regulations: The Federal rules restrict any use of the information to criminally investigate or prosecute any alcohol or drug abuse patient.[facility] [place]In the event this information is protected by the Federal Confidentiality of Alcohol and Drug Abuse Patient Records regulations: The Federal rules restrict any use of the information to criminally investigate or prosecute any alcohol or drug abuse patient.[facility] [place]In the event this information is protected by the Federal Confidentiality of Alcohol and Drug Abuse Patient Records regulations: The Federal rules restrict any use of the information to criminally investigate or prosecute any alcohol or drug abuse patient.[facility] [place]In the event this information is protected by the Federal Confidentiality of Alcohol and Drug Abuse Patient Records regulations: The Federal rules restrict any use of the information to criminally investigate or prosecute any alcohol or drug abuse patient.[facility] [place]In the event this information is protected by the Federal Confidentiality of Alcohol and Drug Abuse Patient Records regulations: The Federal rules restrict any use of the information to criminally investigate or prosecute any alcohol or drug abuse patient.[facility] [place]In the event this information is protected by the Federal Confidentiality of Alcohol and Drug Abuse Patient Records regulations: The Federal rules restrict any use of the information to criminally investigate or prosecute any alcohol or drug abuse patient.[facility] [place]In the event this information is protected by the Federal Confidentiality of Alcohol and Drug Abuse Patient Records regulations: The Federal rules restrict any use of the information to criminally investigate or prosecute any alcohol or drug abuse patient.[facility] [place]In the event this information is protected by the Federal Confidentiality of Alcohol and Drug Abuse Patient Records regulations: The Federal rules restrict any use of the information to criminally investigate or prosecute any alcohol or drug abuse patient.[facility] [place]In the event this information is protected by the Federal Confidentiality of Alcohol and Drug Abuse Patient Records regulations: The Federal rules restrict any use of the information to criminally investigate or prosecute any alcohol or drug abuse patient.[facility] [place]In the event this information is protected by the Federal Confidentiality of Alcohol and Drug Abuse Patient Records regulations: The Federal rules restrict any use of the information to criminally investigate or prosecute any alcohol or drug abuse patient.[facility] [place]In the event this information is protected by the Federal Confidentiality of Alcohol and Drug Abuse Patient Records regulations: The Federal rules restrict any use of the information to criminally investigate or prosecute any alcohol or drug abuse patient.[facility] [place]In the event this information is protected by the Federal Confidentiality of Alcohol and Drug Abuse Patient Records regulations: The Federal rules restrict any use of the information to criminally investigate or prosecute any alcohol or drug abuse patient.[facility] [place]In the event this information is protected by the Federal Confidentiality of Alcohol and Drug Abuse Patient Records regulations: The Federal rules restrict any use of the information to criminally investigate or prosecute any alcohol or drug abuse patient.[facility] [place]In the event this information is protected by the Federal Confidentiality of Alcohol and Drug Abuse Patient Records regulations: The Federal rules restrict any use of the information to criminally investigate or prosecute any alcohol or drug abuse patient.[facility] [place]In the event this information is protected by the Federal Confidentiality of Alcohol and Drug Abuse Patient Records regulations: The Federal rules restrict any use of the information to criminally investigate or prosecute any alcohol or drug abuse patient.[facility] [place]In the event this information is protected by the Federal Confidentiality of Alcohol and Drug Abuse Patient Records regulations: The Federal rules restrict any use of the information to criminally investigate or prosecute any alcohol or drug abuse patient.[facility] [place]In the event this information is protected by the Federal Confidentiality of Alcohol and Drug Abuse Patient Records regulations: The Federal rules restrict any use of the information to criminally investigate or prosecute any alcohol or drug abuse patient.[facility] [place]In the event this information is protected by the Federal Confidentiality of Alcohol and Drug Abuse Patient Records regulations: The Federal rules restrict any use of the information to criminally investigate or prosecute any alcohol or drug abuse patient.[facility] [place]In the event this information is protected by the Federal Confidentiality of Alcohol and Drug Abuse Patient Records regulations: The Federal rules restrict any use of the information to criminally investigate or prosecute any alcohol or drug abuse patient.[facility] [place]In the event this information is protected by the Federal Confidentiality of Alcohol and Drug Abuse Patient Records regulations: The Federal rules restrict any use of the information to criminally investigate or prosecute any alcohol or drug abuse patient.[facility] [place]In the event this information is protected by the Federal Confidentiality of Alcohol and Drug Abuse Patient Records regulations: The Federal rules restrict any use of the information to criminally investigate or prosecute any alcohol or drug abuse patient.[facility] [place]In the event this information is protected by the Federal Confidentiality of Alcohol and Drug Abuse Patient Records regulations: The Federal rules restrict any use of the information to criminally investigate or prosecute any alcohol or drug abuse patient.[facility] [place]In the event this information is protected by the Federal Confidentiality of Alcohol and Drug Abuse Patient Records regulations: The Federal rules restrict any use of the information to criminally investigate or prosecute any alcohol or drug abuse patient.[facility] [place]In the event this information is protected by the Federal Confidentiality of Alcohol and Drug Abuse Patient Records regulations: The Federal rules restrict any use of the information to criminally investigate or prosecute any alcohol or drug abuse patient.[facility] [place]In the event this information is protected by the Federal Confidentiality of Alcohol and Drug Abuse Patient Records regulations: The Federal rules restrict any use of the information to criminally investigate or prosecute any alcohol or drug abuse patient.[facility] [place]In the event this information is protected by the Federal Confidentiality of Alcohol and Drug Abuse Patient Records regulations: The Federal rules restrict any use of the information to criminally investigate or prosecute any alcohol or drug abuse patient.[facility] [place]In the event this information is protected by the Federal Confidentiality of Alcohol and Drug Abuse Patient Records regulations: The Federal rules restrict any use of the information to criminally investigate or prosecute any alcohol or drug abuse patient.[facility] [place]In the event this information is protected by the Federal Confidentiality of Alcohol and Drug Abuse Patient Records regulations: The Federal rules restrict any use of the information to criminally investigate or prosecute any alcohol or drug abuse patient.[facility] [place]In the event this information is protected by the Federal Confidentiality of Alcohol and Drug Abuse Patient Records regulations: The Federal rules restrict any use of the information to criminally investigate or prosecute any alcohol or drug abuse patient.[facility] [place]In the event this information is protected by the Federal Confidentiality of Alcohol and Drug Abuse Patient Records regulations: The Federal rules restrict any use of the information to criminally investigate or prosecute any alcohol or drug abuse patient.[facility] [place]In the event this information is protected by the Federal Confidentiality of Alcohol and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 Natasha Ray MD [address] [place] [facility] [place] [address] Cardiology 05/18/20 Vonnie Esparza MD [address] [facility] [place] [address] Specialty Drying Frame Operator General Surgery 06/28/20 Bike Designer Relationship Specialty Start Date End Date Lizbeth Pool MD [address] [facility] [place] [address] PCP - General Family Practice 04/10/17 Natasha Ray MD [address] [place] [address] Cardiology 05/18/20 Vonnie Esparza MD [address] [facility] [place] [address] Specialty Drying Frame Operator General Surgery 06/28/20 Bike Designer Relationship Specialty Start Date End Date Lizbeth Pool MD [address] [facility] [place] [address] PCP - General Family Practice 04/10/17 Natasha Ray MD [address] [place] [address] Cardiology 05/18/20 Vonnie Esparza MD [address] [facility] [place] [address] Specialty Drying Frame Operator General Surgery 06/28/20 Bike Designer Relationship Specialty Start Date End Date Lizbeth Pool MD [address] [facility] [place] [address] PCP - General Family Practice 04/10/17 Natasha Ray MD [address] [place] [address] Cardiology 05/18/20 Vonnie Esparza MD [address] [facility] [place] [address] Specialty Drying Frame Operator General Surgery 06/28/20 Bike Designer Relationship Specialty Start Date End Date Lizbeth Pool MD [address] [facility] [place] [address] PCP - General Family Practice 04/10/17 Natasha Ray MD [address] [place] [address] Cardiology 05/18/20 Vonnie Esparza MD [address] [facility] [place] [address] Specialty Drying Frame Operator General Surgery 06/28/20 Bike Designer Relationship Specialty Start Date End Date Lizbeth Pool MD [address] [facility] [place] [address] PCP - General Family Practice 04/10/17 Natasha Ray MD [address] [place] [facility] [place] [address] Cardiology 05/18/20 Vonnie Esparza MD [address] [facility] [place] [address] Specialty Drying Frame Operator General Surgery 06/28/20 Bike Designer Relationship Specialty Start Date End Date Lizbeth Pool MD [address] [facility] [place] [address] PCP - General Family Practice 04/10/17 Natasha Ray MD [address] [place] [address] Cardiology 05/18/20 Vonnie Esparza MD [address] [place] [address] Specialty Drying Frame Operator General Surgery 06/28/20 Bike Designer Relationship Specialty Start Date End Date Lizbeth Pool MD [address] [facility] [place] [address] PCP - General Family Practice 04/10/17 Natasha Ray MD [address] [place] [address] Cardiology 05/18/20 Vonnie Esparza MD [address] [place] [address] Specialty Drying Frame Operator General Surgery 06/28/20 Bike Designer Relationship Specialty Start Date End Date Lizbeth Pool MD [address] [place] [place] [address] PCP - General Family Practice 04/10/17 Natasha Ray MD [address] [facility] [address] Cardiology 05/18/20 Vonnie Esparza MD [address] [place] [address] Specialty Drying Frame Operator General Surgery 06/28/20 Bike Designer Relationship Specialty Start Date End Date Lizbeth Pool MD [address] [facility] [place] [address] PCP - General Family Practice 04/10/17 Natasha Ray MD [address] [place] [address] Cardiology 05/18/20 Vonnie Esparza MD [address] [place] [address] Specialty Drying Frame Operator General Surgery 06/28/20 Bike Designer Relationship Specialty Start Date End Date Lizbeth Pool MD [address] [facility] [place] [address] PCP - General Family Practice 04/10/17 Natasha Ray MD [address] [facility] [place] [address] Cardiology 05/18/20 Vonnie Esparza MD [address] [place] [address] Specialty Drying Frame Operator General Surgery 06/28/20 Bike Designer Relationship Specialty Start Date End Date Lizbeth Pool MD [address] [facility] [place] [address] PCP - General Family Practice 04/10/17 Natasha Ray MD [address] [facility] [address] Cardiology 05/18/20 Vonnie Esparza MD [address] [place] [address] Specialty Drying Frame Operator General Surgery 06/28/20 Bike Designer Relationship Specialty Start Date End Date Lizbeth Pool MD [address] [facility] [place] [address] PCP - General Family Practice 04/10/17 Natasha Ray MD [address] [place] [address] Cardiology 05/18/20 Vonnie Esparza MD [address] [place] [address] Specialty Drying Frame Operator General Surgery 06/28/20 Bike Designer Relationship Specialty Start Date End Date Lizbeth Pool MD [address] [facility] [place] [address] PCP - General Family Practice 04/10/17 Natasha Ray MD [address] [place] [facility] [address] Cardiology 05/18/20 Vonnie Esparza MD [address] [place] [address] Specialty Drying Frame Operator General Surgery 06/28/20 Bike Designer Relationship Specialty Start Date End Date Lizbeth Pool MD [address] [facility] [place] [address] PCP - General Family Medicine 04/10/17 Natasha Ray MD [address] [facility] [place] [address] Cardiology 05/18/20 Vonnie Esparza MD [address] [facility] [place] [address] Specialty Drying Frame Operator General Surgery 06/28/20 Bike Designer Relationship Specialty Start Date End Date Lizbeth Pool MD [address] [facility] [place] [address] PCP - General Family Medicine 04/10/17 Natasha Ray MD [address] [place] [address] Cardiology 05/18/20 Vonnie Esparza MD [address] [place] [address] Specialty Drying Frame Operator General Surgery 06/28/20 Shira Pelaez, house repairer Certified Welder 01/09/22 01/14/22 Bike Designer Relationship Specialty Start Date End Date Lizbeth Pool MD [address] [facility] [place] [address] PCP - General Family Medicine 04/10/17 Natasha Ray MD [address] [place] [address] Cardiology 05/18/20 Vonnie Esparza MD [address] [place] [address] Specialty Drying Frame Operator General Surgery 06/28/20 Shira Pelaez, house repairer Certified Welder 01/09/22 01/14/22 Bike Designer Relationship Specialty Start Date End Date Lizbeth Pool MD [address] [facility] [place] [address] PCP - General Family Medicine 04/10/17 Natasha Ray MD [address] [facility] [address] Cardiology 05/18/20 Vonnie Esparza MD [address] [place] [address] Specialty Drying Frame Operator General Surgery 06/28/20 Bike Designer Relationship Specialty Start Date End Date Lizbeth Pool MD [address] [place] [address] PCP - General Family Medicine 04/10/17 Natasha Ray MD [address] [place] [address] Cardiology 05/18/20 Vonnie Esparza MD [address] [place], [place] [id number] Specialty Drying Frame Operator General Surgery 06/28/20 Lizbeth Pool MD [address] [place] [address] Home Care Provider Family Medicine 01/18/22 Elisabet Tapia, DO [address] [place] [address] Referring Internal Medicine 01/18/22 Mary Grace Alexandra, house repairer Certified Welder 01/21/22 02/20/22 Sen Brown, JONATHAN [address] [place], [place] [phone] Quality Assurance Representative Post Acute Care 01/21/22 Bike Designer Relationship Specialty Start Date End Date Lizbeth Pool MD [address] [place] [address] PCP - General Family Medicine 04/10/17 Natasha Ray MD [address] [place] [address] Cardiology 05/18/20 Vonnie Esparza MD [address] [facility] [place], [place] [address] Specialty Drying Frame Operator General Surgery 06/28/20 Lizbeth Pool MD [address] [place] [address] Home Care Provider Family Medicine 01/18/22 Elisabet Tapia DO 1 [place] [address] Referring Internal Medicine 01/18/22 Mary Grace Alexandra RN Primary Care Certified Welder 01/21/22 02/20/22 Sen Brown, JONATHAN [address] [place], [place] [phone] Quality Assurance Representative Post Acute Care 01/21/22 Bike Designer Relationship Specialty Start Date End Date Lizbeth Pool MD [address] [place] [address] PCP - General Family Medicine 04/10/17 Natasha Ray MD [address] [place] [address] Cardiology 05/18/20 Vonnie Esparza MD [address] [place] [address] Specialty Drying Frame Operator General Surgery 06/28/20 Lizbeth Pool MD [address] [place] [address] Home Care Provider Family Medicine 01/18/22 Elisabet Tapia DO 1 [place] [address] Referring Internal Medicine 01/18/22 Mary Grace Alexandra RN Primary Care Certified Welder 01/21/22 02/20/22 Sen Brown, JONATHAN [address] [place], [place] [phone] Quality Assurance Representative Post Acute Care 01/21/22 Bike Designer Relationship Specialty Start Date End Date Lizbeth Pool MD [address] [place] [address] PCP - General Family Medicine 04/10/17 Natasha Ray MD [address] [place] [address] Cardiology 05/18/20 Vonnie Esparza MD [address] [place], [place] [address]6829 [phone] Specialty Drying Frame Operator General Surgery 06/28/20 Lizbeth Pool MD [address] [place] [address] Home Care Provider Family Medicine 01/18/22 Elisabet Tapia DO [address] [place], [place] [phone] Referring Internal Medicine 01/18/22 Mary Grace Alexandra, house repairer Certified Welder 01/21/22 02/20/22 Sen Brown, JONATHAN [address] [place], [place] [phone] Quality Assurance Representative Post Acute Care 01/21/22 Bike Designer Relationship Specialty Start Date End Date Lizbeth Pool MD [address] [place] [address] PCP - General Family Medicine 04/10/17 Natasha Ray MD [address] [place] [address] Cardiology 05/18/20 Vonnie Esparza MD [address] [place] [address] Specialty Drying Frame Operator General Surgery 06/28/20 Lizbeth Pool MD [address] [place] [address] Home Care Provider Family Medicine 01/18/22 Elisabet Tapia DO 1 [place], [place] [phone] Referring Internal Medicine 01/18/22 Mary Grace Alexandra, house repairer Certified Welder 01/21/22 02/20/22 Sen Brown, JONATHAN [address] [place] [address] Quality Assurance Representative Post Acute Care 01/21/22 Bike Designer Relationship Specialty Start Date End Date Lizbeth Pool MD [address] [place] [address] PCP - General Family Medicine 04/10/17 Natasha Ray MD [address] [place] [address] Cardiology 05/18/20 Vonnie Esparza MD [address] [place], [place] [id number] Specialty Drying Frame Operator General Surgery 06/28/20 Mary Grace Alexandra RN Primary Care Certified Welder 01/21/22 02/20/22 Sen Brown, JONATHAN [address] [place] [address] Quality Assurance Representative Post Acute Care 01/21/22 Jenna Claudio PA-C 1 [place], [place] [phone] Referring General Surgery 02/09/22 Shay Oro MD [address] [place], [place] [phone] Consulting General Surgery 02/09/22 Lizbeth Pool MD [address] [place] [address] Home Care Provider Family Medicine 02/09/22 Bike Designer Relationship Specialty Start Date End Date Lizbeth Pool MD [address] [place] [address] PCP - General Family Medicine 04/10/17 Natasha Ray MD [address] [place] [address] Cardiology 05/18/20 Vonnie Esparza MD [address] [place] [address] Specialty Drying Frame Operator General Surgery 06/28/20 Mary Grace Alexandra, house repairer Certified Welder 01/21/22 02/20/22 Sen Brown RN [address] [place] [address] Quality Assurance Representative Post Acute Care 01/21/22 Jenna Claudio PA-C 1 [place] [address] Referring General Surgery 02/09/22 Shay Oro MD [address] [place] [address] Consulting General Surgery 02/09/22 Lizbeth Pool MD [address] [place] [address] Home Care Provider Family Medicine 02/09/22 Bike Designer Relationship Specialty Start Date End Date Lizbeth Pool MD [address] [place] [address] PCP - General Family Medicine 04/10/17 Natasha Ray MD [address] [facility] [place] [address] Cardiology 05/18/20 Vonnie Esparza MD [address] [place] [address] Specialty Drying Frame Operator General Surgery 06/28/20 Sen Brown RN [address] [place] [address] Quality Assurance Representative Post Acute Care 02/10/22 Jenna Claudio PA-C 1 [place], [place] [phone] Referring General Surgery 02/09/22 Shay Oro MD [address] [place] [address] Consulting General Surgery 02/09/22 Lizbeth Pool MD [address] [place] [address] Home Care Provider Family Medicine 02/09/22 Hilda Amos RN Primary Care Certified Welder Internal Medicine 02/10/22 03/12/22 Bike Designer Relationship Specialty Start Date End Date Lizbeth Pool MD [address] [place] [address] PCP - General Family Medicine 04/10/17 Natasha Ray MD [address] [place] [address] Cardiology 05/18/20 Vonnie Esparza MD [address] [place] [address] Specialty Drying Frame Operator General Surgery 06/28/20 Sen Brown RN [address] [place] [address] Quality Assurance Representative Post Acute Care 02/10/22 Jenna Claudio PA-C 1 [place] [address] Referring General Surgery 02/09/22 Shay Oro MD [address] [place] [address] Consulting General Surgery 02/09/22 Lizbeth Pool MD [address] [place] [address] Home Care Provider Family Medicine 02/09/22 Hilda Amos RN Primary Care Certified Welder Internal Medicine 02/10/22 03/12/22 Bike Designer Relationship Specialty Start Date End Date Lizbeth Pool MD [address] [place] [address] PCP - General Family Medicine 04/10/17 Natasha Ray MD [address] [place] [address] Cardiology 05/18/20 Vonnie Esparza MD [address] [place], [place] [phone] Specialty Drying Frame Operator General Surgery 06/28/20 Sen Brown RN [address] [place] [address] Quality Assurance Representative Post Acute Care 02/10/22 Jenna Claudio PA-C 1 [place], [place] [phone] Referring General Surgery 02/09/22 Shay Oro MD [address] [place] [address] Consulting General Surgery 02/09/22 Lizbeth Pool MD [address] [place] [address] Home Care Provider Family Medicine 02/09/22 Hilda Amos RN Primary Care Certified Welder Internal Medicine 02/10/22 03/12/22 Sarah Gamez, [facility] [address] [place] [address] Transitional Care Pharmacist Pharmacy 02/12/22 03/12/22 Bike Designer Relationship Specialty Start Date End Date Lizbeth Pool MD [address] [place] [address] PCP - General Family Medicine 04/10/17 Natasha Ray MD [address] [facility] [place] [address] Cardiology 05/18/20 Vonnie Esparza MD [address] [place], [place] [id number] Specialty Drying Frame Operator General Surgery 06/28/20 Sen Brown, JONATHAN [address] [place], [place] [phone] Quality Assurance Representative Post Acute Care 02/10/22 Jenna Claudio PA-C 1 [place], [place] [phone] Referring General Surgery 02/09/22 Shay Oro MD [address] [place], [place] [phone] Consulting General Surgery 02/09/22 Lizbeth Pool MD [address] [place] [address] Home Care Provider Family Medicine 02/09/22 Hilda Amos, house repairer Certified Welder Internal Medicine 02/10/22 03/12/22 Sarah Gamez, [facility] [address] [place] [address] Transitional Care Pharmacist Pharmacy 02/12/22 03/12/22 Bike Designer Relationship Specialty Start Date End Date Lizbeth Pool MD [address] [place] [address] PCP - General Family Medicine 04/10/17 Natasha Ray MD [address] [facility] [place] [address] Cardiology 05/18/20 Vonnie Esparza MD [address] [place], [place] [id number] Specialty Drying Frame Operator General Surgery 06/28/20 Sen Brown RN [address] [place] [address] Quality Assurance Representative Post Acute Care 02/10/22 Jenna Claudio PA-C 1 [place], [place] [id number] Referring General Surgery 02/09/22 Shay Oro MD [address] [place], [place] [phone] Consulting General Surgery 02/09/22 Lizbeth Pool MD [address] [place] [address] Home Care Provider Family Medicine 02/09/22 Hilda Amos RN Primary Care Certified Welder Internal Medicine 02/10/22 03/12/22 Sarah Gamez, [facility] [address] [place] [address] Transitional Care Pharmacist Pharmacy 02/12/22 03/12/22 Bike Designer Relationship Specialty Start Date End Date Lizbeth Pool MD [address] [place] [address] PCP - General Family Medicine 04/10/17 Natasha Ray MD [address] [place] [address] Cardiology 05/18/20 Vonnie Esparza MD [address] [place], [place] [address] Specialty Drying Frame Operator General Surgery 06/28/20 Sen Brown RN [address] [place] [address] Quality Assurance Representative Post Acute Care 02/10/22 Jenna Claudio PA-C 1 [place], [place] [phone] Referring General Surgery 02/09/22 Shay Oro MD [address] [place] [address] Consulting General Surgery 02/09/22 Lizbeth Pool MD [address] [place] [address] Home Care Provider Family Medicine 02/09/22 Hilda Amos RN Primary Care Certified Welder Internal Medicine 02/10/22 03/12/22 Bike Designer Relationship Specialty Start Date End Date Lizbeth Pool MD [address] [place] [address] PCP - General Family Medicine 04/10/17 Natasha Ray MD [address] [place] [address] Cardiology 05/18/20 Vonnie Esparza MD [address] [place], [place] 281735 [phone] Specialty Drying Frame Operator General Surgery 06/28/20 Sen Brown RN [address] [place], [place] [phone] Quality Assurance Representative Post Acute Care 02/10/22 Jenna Claudio PA-C 1 [place], [place] [phone] Referring General Surgery 02/09/22 Shay Oro MD [address] [place] [address] Consulting General Surgery 02/09/22 Lizbeth Pool MD [address] [place] [address] Home Care Provider Family Medicine 02/09/22 Hilda Amos RN Primary Care Certified Welder Internal Medicine 02/10/22 03/12/22 Sarah Gamez, [facility] [address] [place] [address] Transitional Care Pharmacist Pharmacy 02/12/22 03/12/22 Bike Designer Relationship Specialty Start Date End Date Lizbeth Pool MD [address] [place], [place] [phone] PCP - General Family Medicine 04/10/17 Natasha Ray MD [address] [place] [address] Cardiology 05/18/20 Vonnie Esparza MD [address] [place], [place] [id number] Specialty Drying Frame Operator General Surgery 06/28/20 Sen Brown RN [address] [place] [address] Quality Assurance Representative Post Acute Care 02/10/22 Jenna Claudio PA-C 1 [place], [place] [phone] Referring General Surgery 02/09/22 Shay Oro MD [address] [place], [place] [phone] Consulting General Surgery 02/09/22 Lizbeth Pool MD [address] [place], [place] 19366691 Home Care Provider Family Medicine 02/09/22 Hilda Amos RN Primary Care Certified Welder Internal Medicine 02/10/22 03/12/22 Sarah Gamez [facility] [address] [place] [address] Transitional Care Pharmacist Pharmacy 02/12/22 03/12/22 Bike Designer Relationship Specialty Start Date End Date Lizbeth Pool MD [address] [place] [address] PCP - General Family Medicine 04/10/17 Natasha Ray MD [address] [place] [address] Cardiology 05/18/20 Vonnie Esparza MD [address] [place], [place] 560325 Specialty Drying Frame Operator General Surgery 06/28/20 Sen Brown RN [address] [place] [address] Quality Assurance Representative Post Acute Care 02/10/22 Jenna Claudio PA-C 1 [place], [place] [phone] Referring General Surgery 02/09/22 Shay Oro MD [address] [place], [place] 613443 Consulting General Surgery 02/09/22 Lizbeth Pool MD [address] [place] [address] Home Care Provider Family Medicine 02/09/22 Hilda Amos, house repairer Certified Welder Internal Medicine 02/10/22 03/12/22 Sarah Gamez, [facility] [address] [place] [address] Transitional Care Pharmacist Pharmacy 02/12/22 03/12/22 Bike Designer Relationship Specialty Start Date End Date Lizbeth Pool MD [address] [place] [address] PCP - General Family Medicine 04/10/17 Natasha Ray MD [address] [place] [address] Cardiology 05/18/20 Vonnie Esparza MD [address] [place] [id number] Specialty Drying Frame Operator General Surgery 06/28/20 Sen Brown, JONATHAN [address] [place], [place] 6541831 Quality Assurance Representative Post Acute Care 02/10/22 Jenna Claudio PA-C 1 [place], [place] [phone] Referring General Surgery 02/09/22 Shay Oro MD [address] [place], [place] [phone] Consulting General Surgery 02/09/22 Lizbeth Pool MD [address] [place] [address] Home Care Provider Family Medicine 02/09/22 Hilda Amos, house repairer Certified Welder Internal Medicine 02/10/22 03/12/22 Sarah Gamez, [facility] [address] [place] [address] Transitional Care Pharmacist Pharmacy 02/12/22 03/12/22 Bike Designer Relationship Specialty Start Date End Date Lizbeth Pool MD [address] [place] [address] PCP - General Family Medicine 04/10/17 Natasha Ray MD [address] [place] [address] Cardiology 05/18/20 Vonnie Esparza MD [address] [place], [place] [phone] Specialty Drying Frame Operator General Surgery 06/28/20 Sen Brown RN [address] [place], [place] [id number] Quality Assurance Representative Post Acute Care 02/10/22 Jenna Claudio PA-C 1 [place], [place] [phone] Referring General Surgery 02/09/22 Shay Oro MD [address] [place], [place] [phone] Consulting General Surgery 02/09/22 Lizbeth Pool MD [address] [place] [address] Home Care Provider Family Medicine 02/09/22 Hilda Amos RN Primary Care Certified Welder Internal Medicine 02/10/22 03/12/22 [facility] [address] [place], [place] [phone] Transitional Care Pharmacist Pharmacy 02/12/22 03/12/22 Bike Designer Relationship Specialty Start Date End Date Lizbeth Pool MD [address] [place] [address] PCP - General Family Medicine 04/10/17 Natasha Ray MD [address] [place] [address] Cardiology 05/18/20 Vonnie Esparza MD [address] [place], [place] [phone] Specialty Drying Frame Operator General Surgery 06/28/20 Sen Brown RN [address] [place], [place] [id number] Quality Assurance Representative Post Acute Care 02/10/22 Jenna Claudio PA-C 1 [place], [place] [id number] Referring General Surgery 02/09/22 Shay Oro MD [address] [place], [place] [phone] Consulting General Surgery 02/09/22 Lizbeth Pool MD [address] [place] [address] Home Care Provider Family Medicine 02/09/22 Hilda Amos RN Primary Care Certified Welder Internal Medicine 02/10/22 03/12/22 Sarah Gamez, [facility] [address] [place] [address] Transitional Care Pharmacist Pharmacy 02/12/22 03/12/22 Bike Designer Relationship Specialty Start Date End Date Lizbeth Pool MD [address] [place] [address] PCP - General Family Medicine 04/10/17 Natasha Ray MD [address] [place] [address] Cardiology 05/18/20 Vonnie Esparza MD [address] [place], [place] [id number] Specialty Drying Frame Operator General Surgery 06/28/20 Sen Brown RN [address] [place], [place] 3136531 Quality Assurance Representative Post Acute Care 02/10/22 Jenna Claudio PA-C 1 [place], [place] [phone] Referring General Surgery 02/09/22 Shay Oro MD [address] [place], [place] [phone] Consulting General Surgery 02/09/22 Lizbeth Pool MD [address] [place] [address] Home Care Provider Family Medicine 02/09/22 Hilda Amos RN Primary Care Certified Welder Internal Medicine 02/10/22 03/12/22 Sarah Gamez [facility] [address] [place], [place] [phone] Transitional Care Pharmacist Pharmacy 02/12/22 03/12/22 Bike Designer Relationship Specialty Start Date End Date Lizbeth Pool MD [address] [place] [address] PCP - General Family Medicine 04/10/17 Natasha Ray MD [address] [place] [address] Cardiology 05/18/20 Vonnie Esparza MD [address] [place], [place] [id number] Specialty Drying Frame Operator General Surgery 06/28/20 Sen Brown RN [address] [place], [place] 8402831 Quality Assurance Representative Post Acute Care 02/10/22 Jenna Claudio PA-C 1 [place], [place] [id number] Referring General Surgery 02/09/22 Shay Oro MD [address] [place] [address] Consulting General Surgery 02/09/22 Lizbeth Pool MD [address] [place] [address] Home Care Provider Family Medicine 02/09/22 Hilda Amos RN Primary Care Certified Welder Internal Medicine 02/10/22 03/12/22 Sarah Gamez [facility] [address] [place] [address] Transitional Care Pharmacist Pharmacy 02/12/22 03/12/22 Bike Designer Relationship Specialty Start Date End Date Lizbeth Pool MD [address] [place], [place] [phone] PCP - General Family Medicine 04/10/17 Natasha Ray MD [address] [place] [address] Cardiology 05/18/20 Vonnie Esparza MD [address] [place], [place] [phone] Specialty Drying Frame Operator General Surgery 06/28/20 Sen Brown RN [address] [place], [place] [phone] Quality Assurance Representative Post Acute Care 02/10/22 Jenna Claudio PA-C 1 [facility], [place] [phone] Referring General Surgery 02/09/22 Shay Oro MD [address] [place], [place] [phone] Consulting General Surgery 02/09/22 Lizbeth Pool MD [address] [place], [place] [phone] Home Care Provider Family Medicine 02/09/22 Hilda Amos, house repairer Certified Welder Internal Medicine 02/10/22 03/12/22 Sarah Gamez, [facility] [address] [place] [address] Transitional Care Pharmacist Pharmacy 02/12/22 03/12/22 Bike Designer Relationship Specialty Start Date End Date Lizbeth Pool MD [address] [place], [place] [phone] PCP - General Family Medicine 04/10/17 Natasha Ray MD [address] [place] [address] Cardiology 05/18/20 Vonnie Esparza MD [address] [place], [place] [phone] Specialty Drying Frame Operator General Surgery 06/28/20 Lizbeth Pool MD [address] [place], [place] [phone] Home Care Provider Family Medicine 01/18/22 02/08/22 Elisabet Tapia DO [address] [place], [place] [phone] Referring Internal Medicine 01/18/22 02/08/22 Mary Grace Alexandra, house repairer Certified Welder 01/21/22 02/07/22 Sen Brown, JONATHAN [address] [place], [place] [phone] Quality Assurance Representative Post Acute Care 02/10/22 Jenna Claudio PA-C 1 [place], [place] [phone] Referring General Surgery 02/09/22 Shay Oro MD [address] [place], [place] [phone] Consulting General Surgery 02/09/22 Lizbeth Pool MD [address] [place], [place] [id number] Home Care Provider Family Medicine 02/09/22 Hilda Amos, house repairer Certified Welder Internal Medicine 02/10/22 03/12/22 Sarah Gamez, [facility] [address] [place] [address] Transitional Care Pharmacist Pharmacy 02/12/22 03/12/22 Bike Designer Relationship Specialty Start Date End Date Lizbeth Pool MD [address] [place] [address] PCP - General Family Medicine 04/10/17 Natasha Ray MD [address] [place] [address] Cardiology 05/18/20 Vonnie Esparza MD [address] [place], [place] 829815 Specialty Drying Frame Operator General Surgery 06/28/20 Sen Brown RN [address] [place] [address] Quality Assurance Representative Post Acute Care 02/10/22 Jenna Claudio PA-C 1 [place], [place] [phone] Referring General Surgery 02/09/22 Shay Oro MD [address] [place], [place] 566393 Consulting General Surgery 02/09/22 Lizbeth Pool MD [address] [place] [address] Home Care Provider Family Medicine 02/09/22 Hilda Amos, house repairer Certified Welder Internal Medicine 02/10/22 03/12/22 Sarah Gamez, [facility] [address] [place] [address] Transitional Care Pharmacist Pharmacy 02/12/22 03/12/22 Bike Designer Relationship Specialty Start Date End Date Lizbeth Pool MD [address] [place] [address] PCP - General Family Medicine 04/10/17 Natasha Ray MD [address] [facility] [place] [address] Cardiology 05/18/20 Vonnie Esparza MD [address] [place], [place] [phone] Specialty Drying Frame Operator General Surgery 06/28/20 Sen Brown RN [address] [place] [address] Quality Assurance Representative Post Acute Care 02/10/22 Jenna Claudio PA-C 1 [place], [place] [phone] Referring General Surgery 02/09/22 Shay Oro MD [address] [place] [address] Consulting General Surgery 02/09/22 Lizbeth Pool MD [address] [place] [address] Home Care Provider Family Medicine 02/09/22 Hilda Amos, house repairer Certified Welder Internal Medicine 02/10/22 03/12/22 Sarah Gamez, [facility] [address] [place] [address] Transitional Care Pharmacist Pharmacy 02/12/22 03/12/22 Bike Designer Relationship Specialty Start Date End Date Lizbeth Pool MD [address] [place] [address] PCP - General Family Medicine 04/10/17 Natasha Ray MD [address] [place] [address] Cardiology 05/18/20 Vonnie Esparza MD [address] [place], [place] [id number] Specialty Drying Frame Operator General Surgery 06/28/20 Sen Bronw RN [address] [place], [place] [phone] Quality Assurance Representative Post Acute Care 02/10/22 Jenna Claudio PA-C 1 [place], [place] [phone] Referring General Surgery 02/09/22 Shay Oro MD [address] [place], [place] [phone] Consulting General Surgery 02/09/22 Lizbeth Pool MD [address] [place] [address] Home Care Provider Family Medicine 02/09/22 Hilda Amos RN Primary Care Certified Welder Internal Medicine 02/10/22 03/12/22 [facility] [address] [place] [address] Transitional Care Pharmacist Pharmacy 02/12/22 03/12/22 Bike Designer Relationship Specialty Start Date End Date Lizbeth Pool MD [address] [place] [address] PCP - General Family Medicine 04/10/17 Natasha Ray MD [address] [place], [place] [id number] [phone] Cardiology 05/18/20 Vonnie Esparza MD [address] [place], [place] [phone] Specialty Drying Frame Operator General Surgery 06/28/20 Sen Brown RN [address] [place] [address] Quality Assurance Representative Post Acute Care 02/10/22 Jenna Claudio PA-C 1 [place], [place] [phone] Referring General Surgery 02/09/22 Shay Oro MD [address] [place], [place] [phone] Consulting General Surgery 02/09/22 Lizbeth Pool MD [address] [place] [address] Home Care Provider Family Medicine 02/09/22 Hilda Amos RN Primary Care Certified Welder Internal Medicine 02/10/22 03/12/22 Sarah Gamez, [facility] [address] [place] [address] Transitional Care Pharmacist Pharmacy 02/12/22 03/12/22 Bike Designer Relationship Specialty Start Date End Date Lizbeth Pool MD [address] [place] [address] PCP - General Family Medicine 04/10/17 Natasha Ray MD [address] [place] [address] Cardiology 05/18/20 Vonnie Esparza MD [address] [place], [place] [phone] Specialty Drying Frame Operator General Surgery 06/28/20 Sen Brown RN [address] [place], [place] [phone] Quality Assurance Representative Post Acute Care 02/10/22 Jenna Claudio PA-C 1 [place], [place] [phone] Referring General Surgery 02/09/22 Shay Oro MD [address] [place], [place] [phone] Consulting General Surgery 02/09/22 Lizbeth Pool MD [address] [place] [address] Home Care Provider Family Medicine 02/09/22 Hilda Amos RN Primary Care Certified Welder Internal Medicine 02/10/22 03/12/22 [facility] [address] [place], [place] [phone] Transitional Care Pharmacist Pharmacy 02/12/22 03/12/22 Bike Designer Relationship Specialty Start Date End Date Lizbeth Pool MD [address] [place] [address] PCP - General Family Medicine 04/10/17 Natasha Ray MD [address] [place] [address] Cardiology 05/18/20 Vonnie Esparza MD [address] [place], [place] [id number] Specialty Drying Frame Operator General Surgery 06/28/20 Sen Brown RN [address] [place], [place] [id number] Quality Assurance Representative Post Acute Care 02/10/22 Jenna Claudio PA-C [address] [facility] [place] [phone] Referring General Surgery 02/09/22 Shay Oro MD [address] [place], [place] [id number] Consulting General Surgery 02/09/22 Lizbeth Pool MD [address] [place] [address] Home Care Provider Family Medicine 02/09/22 Hilda Amos RN Primary Care Certified Welder Internal Medicine 02/10/22 03/12/22 Sarah Gamez [facility] [address] [place] [address] Transitional Care Pharmacist Pharmacy 02/12/22 03/12/22 Bike Designer Relationship Specialty Start Date End Date Lizbeth Pool MD [address] [place], [place] [id number] PCP - General Family Medicine 04/10/17 Natasha Ray MD [address] [place] [address] Cardiology 05/18/20 Vonnie Esparza MD [address] [place] [address] Specialty Drying Frame Operator General Surgery 06/28/20 Sen Brown RN [address] [place] [address] Quality Assurance Representative Post Acute Care 02/10/22 Jenna Claudio PA-C 1 [facility] [place], [place] [phone] Referring General Surgery 02/09/22 Shay Oro MD [address] [place] [address] Consulting General Surgery 02/09/22 Lizbeth Pool MD [address] [place], [place] [id number] Home Care Provider Family Medicine 02/09/22 Hilda Amos, house repairer Certified Welder Internal Medicine 02/10/22 03/12/22 Sarah Gamez, [facility] [address] [place] [address] Transitional Care Pharmacist Pharmacy 02/12/22 03/12/22 Bike Designer Relationship Specialty Start Date End Date Lizbeth Pool MD [address] [place], [place] [phone] PCP - General Family Medicine 04/10/17 Natasha Ray MD [address] [facility] [place] [address] Cardiology 05/18/20 Vonnie Esparza MD [address] [place], [place] [phone] Specialty Drying Frame Operator General Surgery 06/28/20 Sen Brown, JONATHAN [address] [place], [place] [id number] Quality Assurance Representative Post Acute Care 02/10/22 Jenna Claudio PA-C 1 [place], [place] [phone] Referring General Surgery 02/09/22 Shay Oro MD [address] [place], [place] [id number] Consulting General Surgery 02/09/22 Lizbeth Pool MD [address] [place], [place] [id number] [phone] Home Care Provider Family Medicine 02/09/22 Hilda Amos RN Primary Care Certified Welder Internal Medicine 02/10/22 03/12/22 Sarah Gamez, [facility] [address] [place] [address] Transitional Care Pharmacist Pharmacy 02/12/22 03/12/22 Bike Designer Relationship Specialty Start Date End Date Lizbeth Pool MD [address] [place] [address] PCP - General Family Medicine 04/10/17 Natasha Ray MD [address] [place] [address] Cardiology 05/18/20 Vonnie Esparza MD [address] [place], [place] [id number] Specialty Drying Frame Operator General Surgery 06/28/20 Sen Brown RN [address] [place], [place] [phone] Quality Assurance Representative Post Acute Care 02/10/22 Jenna Claudio PA-C 1 [place], [place] [phone] Referring General Surgery 02/09/22 Shay Oro MD [address] [place], [place] 234513 Consulting General Surgery 02/09/22 Lizbeth Pool MD [address] [place] [address] Home Care Provider Family Medicine 02/09/22 Hilda Amos RN Primary Care Certified Welder Internal Medicine 02/10/22 03/12/22 [facility] [address] [place] [address] Transitional Care Pharmacist Pharmacy 02/12/22 03/12/22 Bike Designer Relationship Specialty Start Date End Date Lizbeth Pool MD [address] [place] [address] PCP - General Family Medicine 04/10/17 Natasha Ray MD [address] [place] [address] Cardiology 05/18/20 Vonnie Esparza MD [address] [place], [place] [phone] Specialty Drying Frame Operator General Surgery 06/28/20 Sen Brown RN [address] [place] [address] Quality Assurance Representative Post Acute Care 02/10/22 Jenna Claudio PA-C 1 [place], [place] [phone] Referring General Surgery 02/09/22 Shay Oro MD [address] [place], [place] [phone] Consulting General Surgery 02/09/22 Lizbeth Pool MD [address] [place] [address] Home Care Provider Family Medicine 02/09/22 Hilda Amos, house repairer Certified Welder Internal Medicine 02/10/22 03/12/22 [facility] [address] [place] [address] Transitional Care Pharmacist Pharmacy 02/12/22 03/12/22 Bike Designer Relationship Specialty Start Date End Date Lizbeth Pool MD [address] [place] [address] PCP - General Family Medicine 04/10/17 Natasha Ray MD [address] [place] [address] Cardiology 05/18/20 Vonnie Esparza MD [address] [place], [place] [id number] Specialty Drying Frame Operator General Surgery 06/28/20 Jenna Claudio PA-C 1 [place], [place] [phone] Referring General Surgery 02/09/22 Shay Oro MD [address] [place] [address] Consulting General Surgery 02/09/22 Lizbeth Pool MD [address] [place] [address] Home Care Provider Family Medicine 02/09/22 Bike Designer Relationship Specialty Start Date End Date Lizbeth Pool MD [address] [place] [address] PCP - General Family Medicine 04/10/17 Natasha Ray MD [address] [place] [address] Cardiology 05/18/20 Vonnie Esparza MD [address] [place] [address] Specialty Drying Frame Operator General Surgery 06/28/20 Jenna Claudio PA-C 1 [place] [address] Referring General Surgery 02/09/22 Shay Oro MD [address] [place] [address] Consulting General Surgery 02/09/22 Lizbeth Pool MD [address] [place] [address] Home Care Provider Family Medicine 02/09/22 Bike Designer Relationship Specialty Start Date End Date Lizbeth Pool MD [address] [place] [address] PCP - General Family Medicine 04/10/17 Natasha Ray MD [address] [place] [address] Cardiology 05/18/20 Vonnie Esparza MD [address] [place] [address] Specialty Drying Frame Operator General Surgery 06/28/20 Jenna Claudio PA-C 1 [place] [address] Referring General Surgery 02/09/22 Shay Oro MD [address] [place] [address] Consulting General Surgery 02/09/22 Lizbeth Pool MD [address] [facility] [place] [address] Home Care Provider Family Medicine 02/09/22 Bike Designer Relationship Specialty Start Date End Date Lizbeth Pool MD [address] [place] [address] PCP - General Family Medicine 04/10/17 Natasha Ray MD [address] [place] [address] Cardiology 05/18/20 Vonnie Esparza MD [address] [place] [address] Specialty Drying Frame Operator General Surgery 06/28/20 Jenna Claudio PA-C 1 [place], [place] [phone] Referring General Surgery 02/09/22 Shay Oro MD [address] [place] [address] Consulting General Surgery 02/09/22 Lizbeth Polo MD [address] [place] [address] Home Care Provider Family Medicine 02/09/22 Bike Designer Relationship Specialty Start Date End Date Lizbeth Pool MD [address] [facility] [place] [address] PCP - General Family Medicine 04/10/17 Natasha Ray MD [address] [place] [address] Cardiology 05/18/20 Vonnie Esparza MD [address] [place], [place] [phone] Specialty Drying Frame Operator General Surgery 06/28/20 Shira Pelaez, house repairer Certified Welder 01/09/22 01/14/22 Lizbeth Pool MD [address] [place], [place] [phone] Home Care Provider Family Medicine 01/18/22 02/08/22 Elisabet Tapia, DO [address] [place] [address] [phone] Referring Internal Medicine 01/18/22 02/08/22 Mary Grace Alexandra RN Primary Care Certified Welder 01/21/22 02/07/22 Sen Brown RN [address] [place], [place] [phone] Quality Assurance Representative Post Acute Care 02/10/22 03/13/22 Jenna Claudio PA-C 1 [place], [place] [phone] Referring General Surgery 02/09/22 Shay Oro MD [address] [place], [place] [phone] Consulting General Surgery 02/09/22 Lizbeth Pool MD [address] [place], [place] [phone] Home Care Provider Family Medicine 02/09/22 Hilda Amos, house repairer Certified Welder Internal Medicine 02/10/22 03/12/22 Sarah Gamez, [facility] [address] [place] [address] Transitional Care Pharmacist Pharmacy 02/12/22 03/12/22 Bike Designer Relationship Specialty Start Date End Date Lizbeth Pool MD [address] [facility] [place] [address] PCP - General Family Medicine 04/10/17 Natasha Ray MD [address] [place] [address] Cardiology 05/18/20 Vonnie Esparza MD [address] [place] [address] Specialty Drying Frame Operator General Surgery 06/28/20 Jenna Caludio PA-C [address] [place] [address] Referring General Surgery 02/09/22 Shay Oro MD [address] [place] [address] Consulting General Surgery 02/09/22 Lizbeth Pool MD [address] [place] [address] Home Care Provider Family Medicine 02/09/22 Bike Designer Relationship Specialty Start Date End Date Lizbeth Pool MD [address] [place] [address] PCP - General Family Medicine 04/10/17 Natasha Ray MD [address] [place] [address] Cardiology 05/18/20 Vonnie Esparza MD [address] [place] [address] Specialty Drying Frame Operator General Surgery 06/28/20 Jenna Claudio PA-C [address] [place] [address] Referring General Surgery 02/09/22 Shay Oro MD [address] [place], [place] 061823 Consulting General Surgery 02/09/22 Lizbeth Pool MD [address] [place] [address] Home Care Provider Family Medicine 02/09/22 Bike Designer Relationship Specialty Start Date End Date Lizbeth Pool MD [address] [place] [address] PCP - General Family Medicine 04/10/17 Natasha Ray MD [address] [place] [address] Cardiology 05/18/20 Vonnie Esparza MD [address] [place], [place] [phone] Specialty Drying Frame Operator General Surgery 06/28/20 Sen Brown, JONATHAN [address] [place], [place] [phone] Quality Assurance Representative Post Acute Care 02/10/22 03/13/22 Jenna Claudio PA-C [address] [place], [place] [phone] Referring General Surgery 02/09/22 Shay Oro MD [address] [place], [place] [phone] Consulting General Surgery 02/09/22 Lizbeth Pool MD [address] [place] [address] Home Care Provider Family Medicine 02/09/22 Hilda Amos, house repairer Certified Welder Internal Medicine 02/10/22 03/12/22 Sarah Gamez, [facility] [address] [place] [address] Transitional Care Pharmacist Pharmacy 02/12/22 03/12/22 Bike Designer Relationship Specialty Start Date End Date Lizbeth Pool MD [address] [place] [address] PCP - General Family Medicine 04/10/17 Natasha Ray MD [address] [place] [address] Cardiology 05/18/20 Vonnie Esparza MD [address] [place] [address] Specialty Drying Frame Operator General Surgery 06/28/20 Jenna Claudio PA-C 1 [place] [address] Referring General Surgery 02/09/22 Shay Oro MD [address] [place] [address] Consulting General Surgery 02/09/22 Lizbeth Pool MD [address] [place] [address] Home Care Provider Family Medicine 02/09/22 Bike Designer Relationship Specialty Start Date End Date Lizbeth Pool MD [address] [place] [address] PCP - General Family Medicine 04/10/17 Natasha Ray MD [address] [place] [address] Cardiology 05/18/20 Vonnie Esparza MD [address] [place] [address] Specialty Drying Frame Operator General Surgery 06/28/20 Jenna Claudio PA-C 1 [place] [address] Referring General Surgery 02/09/22 Shay Oro MD [address] [place] [address] Consulting General Surgery 02/09/22 Lizbeth Pool MD [address] [place] [address] Home Care Provider Family Medicine 02/09/22 Bike Designer Relationship Specialty Start Date End Date Greg Abrams MD [address] [place] [address] PCP - General Internal Medicine 07/06/22 Natasha Ray MD [address] [place] [address] Cardiology 05/18/20 Vonnie Esparza MD [address] [place] [address] Specialty Drying Frame Operator General Surgery 06/28/20 Jenna Claudio PA-C 1 [place] [address] Referring General Surgery 02/09/22 Shay Oro MD [address] [place] [address] Consulting General Surgery 02/09/22 Lizbeth Pool MD [address] [place] [address] Home Care Provider Family Medicine 02/09/22 Bike Designer Relationship Specialty Start Date End Date Greg Abrams MD [address] [place] [address] PCP - General Internal Medicine 07/06/22 Natasha Ray MD [address] [place] [address] Cardiology 05/18/20 Vonnie Esparza MD [address] [place], [place] 004175 Specialty Drying Frame Operator General Surgery 06/28/20 Jenna Claudio PA-C 1 [place], [place] [phone] Referring General Surgery 02/09/22 Shay Oro MD [address] [place], [place] 465653 Consulting General Surgery 02/09/22 Lizbeth Pool MD [address] [place] [address] Home Care Provider Family Medicine 02/09/22 Bike Designer Relationship Specialty Start Date End Date Greg Abrams MD [address] [place] [address] PCP - General Internal Medicine 07/06/22 Natasha Ray MD [address] [place] [address] Cardiology 05/18/20 Vonnie Esparza MD [address] [facility] [place], [place] [phone] Specialty Drying Frame Operator General Surgery 06/28/20 Jenna Claudio PA-C [address] [place], [place] 943365 Referring General Surgery 02/09/22 Shay Oro MD [address] [place] [address] Consulting General Surgery 02/09/22 Lizbeth Pool MD [address] [place] [address] Home Care Provider Family Medicine 02/09/22 Bike Designer Relationship Specialty Start Date End Date Greg Abrams MD [address] [place] [address] PCP - General Internal Medicine 07/06/22 Natasha Ray MD [address] [place] [address] Cardiology 05/18/20 Vonnie Esparza MD [address] [place], [place] 445825 Specialty Drying Frame Operator General Surgery 06/28/20 Jenna Claudio PA-C [address] [place], [place] [phone] Referring General Surgery 02/09/22 Shay Oro MD [address] [place] [address] Consulting General Surgery 02/09/22 Lizbeth Pool MD [address] [place] [address] Home Care Provider Family Medicine 02/09/22 Bike Designer Relationship Specialty Start Date End Date Greg Abrams MD [address] [place] [address] PCP - General Internal Medicine 07/06/22 Natasha Ray MD [address] [place] [address] Cardiology 05/18/20 Vonnie Esparza MD [address] [place], [place] 116[address] Specialty Drying Frame Operator General Surgery 06/28/20 Jenna Claudio PA-C [address] [facility] [address] [place], [place] 210195 Referring General Surgery 02/09/22 Shay Oro MD [address] [place], [place] 448403 Consulting General Surgery 02/09/22 Lizbeth Pool MD [address] [facility] [place] [address] Home Care Provider Family Medicine 02/09/22 Bike Designer Relationship Specialty Start Date End Date Greg Abrams MD [address] [place] [address] PCP - General Internal Medicine 07/06/22 Natasha Ray MD [address] [place] [address] Cardiology 05/18/20 Vonnie Esparza MD [address] [place], [place] 072925 Specialty Drying Frame Operator General Surgery 06/28/20 Jenna Claudio PA-C [address] [place], [place] [phone] Referring General Surgery 02/09/22 Shay Oro MD [address] [place], [place] 144803 Consulting General Surgery 02/09/22 Lizbeth Pool MD [address] [facility] [place] [address] Home Care Provider Family Medicine 02/09/22 Bike Designer Relationship Specialty Start Date End Date Greg Abrams MD [address] [facility] [place] [address] PCP - General Internal Medicine 07/06/22 Natasha Ray MD [address] [place] [address] Cardiology 05/18/20 Vonnie Esparza MD [address] [place] [address] Specialty Drying Frame Operator General Surgery 06/28/20 Jenna Claudio PA-C [address] [place], [place] 349775 Referring General Surgery 02/09/22 Shay Oro MD [address] [place] [address] Consulting General Surgery 02/09/22 Lizbeth Pool MD [address] [place] [address] Home Care Provider Family Medicine 02/09/22 Bike Designer Relationship Specialty Start Date End Date Greg Abrams MD [address] [place] [address] PCP - General Internal Medicine 07/06/22 Natasha Ray MD [address] [place] [address] Cardiology 05/18/20 Vonnie Esparza MD [address] [place], [place] [phone] Specialty Drying Frame Operator General Surgery 06/28/20 Jenna Claudio PA-C [address] [place], [place] 344255 Referring General Surgery 02/09/22 Shay Oro MD [address] [facility] [place] [address] Consulting General Surgery 02/09/22 Lizbeth Pool MD [address] [place] [address] Home Care Provider Family Medicine 02/09/22 Bike Designer Relationship Specialty Start Date End Date Greg Abrams MD [address] [place] [address] PCP - General Internal Medicine 07/06/22 Natasha Ray MD [address] [place] [address] Cardiology 05/18/20 Vonnie Esparza MD [address] [place], [place] 970735 Specialty Drying Frame Operator General Surgery 06/28/20 Jenna Claudio PA-C [address] [place], [place] 493825 Referring General Surgery 02/09/22 Shay Oro MD [address] [place], [place] 445683 Consulting General Surgery 02/09/22 Lizbeth Pool MD [address] [place] [address] Home Care Provider Family Medicine 02/09/22 Bike Designer Relationship Specialty Start Date End Date Lizbeth Pool MD [address] [place] [address] PCP - General Family Medicine 04/10/17 07/05/22 Greg Abrams MD [address] [place] [address] PCP - General Internal Medicine 07/06/22 Natasha Ray MD [address] [place] [address] Cardiology 05/18/20 Vonnie Esparza MD [address] [place], [place] [phone] Specialty Drying Frame Operator General Surgery 06/28/20 Sen Brown, JONATHAN [address] [place], [place] [phone] Quality Assurance Representative Post Acute Care 02/10/22 03/13/22 Jenna Claudio PA-C [address] [place], [place] 7888231 Referring General Surgery 02/09/22 Shay Oro MD [address] [place], [place] [phone] Consulting General Surgery 02/09/22 Lizbeth Pool MD [address] [place], [place] [phone] Home Care Provider Family Medicine 02/09/22 Hilda Amos RN Primary Care Certified Welder Internal Medicine 02/10/22 03/12/22 Sarah Gamez, [facility] [address] [place] [address] Transitional Care Pharmacist Pharmacy 02/12/22 03/12/22 Bike Designer Relationship Specialty Start Date End Date Greg Abrams MD [address] [place], [place] [phone] PCP - General Internal Medicine 07/06/22 Natasha Ray MD [address] [place], [place] [phone] Cardiology 05/18/20 Vonnie Esparza MD [address] [place], [place] [phone] Specialty Drying Frame Operator General Surgery 06/28/20 Jenna Claudio PA-C [address] [place], [place] [phone] Referring General Surgery 02/09/22 Shay Oro MD [address] [place], [place] 270343 Consulting General Surgery 02/09/22 Lizbeth Pool MD [address] [place] [address] Home Care Provider Family Medicine 02/09/22 Bike Designer Relationship Specialty Start Date End Date Greg Abrams MD [address] [place], [place] 408711 PCP - General Internal Medicine 07/06/22 Natasha Ray MD [address] [place], [place] [phone] Cardiology 05/18/20 Vonnie Esparza MD [address] [place], [place] 095655 Specialty Drying Frame Operator General Surgery 06/28/20 Jenna Claudio PA-C [address] [facility] [place], [place] [phone] Referring General Surgery 02/09/22 Shay Oro MD [address] [place] [address] Consulting General Surgery 02/09/22 Lizbeth Pool MD [address] [place] [address] Home Care Provider Family Medicine 02/09/22 Bike Designer Relationship Specialty Start Date End Date Greg Abrams MD [address] [place] [address] PCP - General Internal Medicine 07/06/22 Natasha Ray MD [address] [place], [place] 334211 Cardiology 05/18/20 Vonnie Esparza MD [address] [place], [place] 999785 Specialty Drying Frame Operator General Surgery 06/28/20 Jenna Claudio PA-C [address] [place], [place] 173545 Referring General Surgery 02/09/22 Shay Oro MD [address] [place], [place] 108943 Consulting General Surgery 02/09/22 Lizbeth Pool MD [address] [place], [place] 513531 Home Care Provider Family Medicine 02/09/22 Bike Designer Relationship Specialty Start Date End Date Greg Abrams MD [address] [place] [address] PCP - General Internal Medicine 07/06/22 Natasha Ray MD [address] [place] [address] Cardiology 05/18/20 Vonnie Esparza MD [address] [place] [address] Specialty Drying Frame Operator General Surgery 06/28/20 Jenna Claudio PA-C [address] [place], [place] 18[address]65 Referring General Surgery 02/09/22 Shay Oro MD [address] [place] [place] 248[address] Consulting General Surgery 02/09/22 Lizbeth Pool MD [address] [place], [place] 042691 Home Care Provider Family Medicine 02/09/22 Bike Designer Relationship Specialty Start Date End Date Greg Abrams MD [address] [place], [place] 843821 PCP - General Internal Medicine 07/06/22 Natasha Ray MD [address] [place], [place] 608591 Cardiology 05/18/20 Vonnie Esparza MD [address] [place], [place] [phone] Specialty Drying Frame Operator General Surgery 06/28/20 Jenna Claudio PA-C [address] [place], [place] [phone] Referring General Surgery 02/09/22 Shay Oro MD [address] [facility] [place], [place] 438513 Consulting General Surgery 02/09/22 Lizbeth Pool MD [address] [place], [place] 22608691 Home Care Provider Family Medicine 02/09/22 Team Status: Active Member Role Status Dates Dr. Rodney Pool MD Family Provider Active Dr. Greg Abrams MD Primary Care Provider Active Team Status: Inactive Member Role Status Dates Dr. Rodney Pool MD Primary Care Provider, Ref erring Provider Active Dr. Bari Guzman DO Attending Provider Active Team Status: Inactive Member Role Status Dates Dr. Rodney Pool MD Primary Care Provider Acti ve Dr. Grant Obrien MD Attending Provider Active Team Status: Inactive Member Role Status Dates Dr. Greg Abrams MD Primary Care Provider, Referr ing Provider Active Dr. Bari Guzman DO Attending Provider Active Team Status: Inactive Member Role Status Dates Dr. Greg Abrams MD Primary Care Provider Active Dr. Grant Obrien MD Attending Provider Active Team Status: Inactive Member Role Status Dates Dr. Rodney Pool MD Primary Care Provider Acti ve Delaney Mora [employer], [employer]-C Attending Provider, Referring Pr ovider Active Team Status: Inactive Member Role Status Dates Dr. Bruce Carmona MD Attending Provider, Referring Provider Active Dr. Greg Abrams MD Primary Care Provider Active Team Status: Inactive Member Role Status Dates Dr. Greg Abrams MD Primary Care Provider Active Dr. Lizbeth Sloan MD Attending Provider, Refe rring Provider Active Bike Designer Relationship Specialty Start Date End Date Lizbeth Pool MD [address] [place] [address] PCP - General Family Medicine 04/10/17 07/05/22 Natasha Ray MD [address] [place] [address] Cardiology 05/18/20 Vonnie Esparza MD [address] [place], [place] 066285 Specialty Drying Frame Operator General Surgery 06/28/20 Jenna Claudio PA-C [address] [facility] [place] [place] [place] [address] Referring General Surgery 02/09/22 Shay Oro MD [address] [place], [place] 397633 Consulting General Surgery 02/09/22 Lizbeth Pool MD [address] [place] [address] Home Care Provider Family Medicine 02/09/22 Bike Designer Relationship Specialty Start Date End Date Greg Abrams MD [address] [place] [address] PCP - General Internal Medicine 07/06/22 Natasha Ray MD [address] [place] [address] Cardiology 05/18/20 Vonnie Esparza MD [address] [facility] [place], [place] [address]25 Specialty Drying Frame Operator General Surgery 06/28/20 Jenna Claudio PA-C [address] [place], [place] [phone] Referring General Surgery 02/09/22 Shay Oro MD [address] [place], [place] 885883 Consulting General Surgery 02/09/22 Lizbeth Pool MD [address] [place] [address] Home Care Provider Family Medicine 02/09/22 Team Status: Active Member Role Status Dates Dr. Greg Abrams MD Primary Care Provider Active Dr. Bari Guzman DO Attending Provider, Referring P rovider Active Team Status: Inactive Member Role Status Dates Dr. Greg Abrams MD Primary Care Provider Active Dr. Lizbeth Sloan MD Attending Provider Activ e Bike Designer Relationship Specialty Start Date End Date Greg Abrams MD [address] [place], [place] 272111 PCP - General Internal Medicine 07/06/22 Natasha Ray MD [address] [place], [place] [id number] Cardiology 05/18/20 Vonnie Esparza MD [address] [place], [place] [phone] Specialty Drying Frame Operator General Surgery 06/28/20 Jenna Claudio PA-C [address] [place], [place] 503285 Referring General Surgery 02/09/22 Shay Oro MD [address] [place], [place] 604633 Consulting General Surgery 02/09/22 Lizbeth Pool MD [address] [place], [place] 867831 Home Care Provider Family Medicine 02/09/22 Team Status: Inactive Member Role Status Dates Dr. Greg Abrams MD Primary Care Provider Active Dr. Bari Guzman DO Attending Provider, Referring P rovider Active Bike Designer Relationship Specialty Start Date End Date Greg Abrams MD [address] [place], [place] [phone] PCP - General Internal Medicine 07/06/22 Natasha Ray MD [address] [facility] 63[address]51 Cardiology 05/18/20 Vonnie Esparza MD [address] [place], [place] [phone] Specialty Drying Frame Operator General Surgery 06/28/20 Jenna Claudio PA-C [address] [place], [place] [phone] Referring General Surgery 02/09/22 Shay Oro MD [address] [place], [place] 524063 Consulting General Surgery 02/09/22 Lizbeth Pool MD [address] [place] [address] Home Care Provider Family Medicine 02/09/22 Bike Designer Relationship Specialty Start Date End Date Greg Abrams MD [address] [place] [address] PCP - General Internal Medicine 07/06/22 Natasha Ray MD [address] [place] [address] Cardiology 05/18/20 Vonnie Esparza MD [address] [place], [place] 107575 Specialty Drying Frame Operator General Surgery 06/28/20 Jenna Claudio PA-C [address] [place], [place] [phone] Referring General Surgery 02/09/22 Shay Oro MD [address] [place] [address]013 Consulting General Surgery 02/09/22 Lizbeth Pool MD [address] [place] [address] Home Care Provider Family Medicine 02/09/22 Bike Designer Relationship Specialty Start Date End Date Greg Abrams MD [address] [place] [address] PCP - General Internal Medicine 07/06/22 Natasha Ray MD [address] [place] [address] Cardiology 05/18/20 Vonnie Esparza MD [address] [facility] [place], [place] [id number] Specialty Drying Frame Operator General Surgery 06/28/20 Jenna Claudio PA-C [address] [place], [place] [id number] Referring General Surgery 02/09/22 Shay Oro MD [address] [place] [address] Consulting General Surgery 02/09/22 Lizbeth Pool MD [address] [place] [address] Home Care Provider Family Medicine 02/09/22 Bike Designer Relationship Specialty Start Date End Date Greg Abrams MD [address] [place] [address] PCP - General Internal Medicine 07/06/22 Natasha Ray MD [address] [facility] [place] [place] [address] Cardiology 05/18/20 Vonnie Esparza MD [address] [place], [place] 972525 Specialty Drying Frame Operator General Surgery 06/28/20 Jenna Claudio PA-C [address] [place], [place] [address]65 Referring General Surgery 02/09/22 Shay Oro MD [address] [place], [place] 446463 Consulting General Surgery 02/09/22 Lizbeth Pool MD [address] [place], [place] 195731 Home Care Provider Family Medicine 02/09/22 Bike Designer Relationship Specialty Start Date End Date Greg Abrams MD [address] [place] [address] PCP - General Internal Medicine 07/06/22 Natasha Ray MD [address] [place] [address] Cardiology 05/18/20 Vonnie Esparza MD [address] [place], [place] [id number] Specialty Drying Frame Operator General Surgery 06/28/20 Jenna Claudio PA-C [address] [place], [place] [address] Referring General Surgery 02/09/22 Shay Oro MD [address] [place], [place] [address]83 Consulting General Surgery 02/09/22 Lizbeth Pool MD [address] [place] [address] Home Care Provider Family Medicine 02/09/22 Bike Designer Relationship Specialty Start Date End Date Greg Abrams MD [address] [place] [address] PCP - General Internal Medicine 07/06/22 Natasha Ray MD [address] [place] [address] Cardiology 05/18/20 Vonnie Esparza MD [address] [place], [place] 813915 Specialty Drying Frame Operator General Surgery 06/28/20 Jenna Claudio PA-C [address] [place], [place] 157335 Referring General Surgery 02/09/22 Shay Oro MD [address] [facility], [place] [address]113 Consulting General Surgery 02/09/22 Lizbeth Pool MD [address] [place] [address] Home Care Provider Family Medicine 02/09/22 Bike Designer Relationship Specialty Start Date End Date Greg Arbams MD [address] [place] [address] PCP - General Internal Medicine 07/06/22 Natasha Ray MD [address] [place] [address] Cardiology 05/18/20 Vonnie Esparza MD [address] [facility] [place] [address] Specialty Drying Frame Operator General Surgery 06/28/20 Jenna Claudio PA-C [address] [facility] [place], [place] 990705 Referring General Surgery 02/09/22 Shay Oro MD [address] [place] [address] Consulting General Surgery 02/09/22 Lizbeth Pool MD [address] [place] [address] Home Care Provider Family Medicine 02/09/22 Bike Designer Relationship Specialty Start Date End Date Greg Abrams MD [address] [place] [address] PCP - General Internal Medicine 07/06/22 Natasha Ray MD [address] [place] [address] Cardiology 05/18/20 Vonnie Esparza MD [address] [place], [place] 125545 Specialty Drying Frame Operator General Surgery 06/28/20 Jenna Claudio PA-C [address] [facility] [address] Referring General Surgery 02/09/22 Shay Oro MD [address] [place], [place] 425673 Consulting General Surgery 02/09/22 Lizbeth Pool MD [address] [place], [place] 311631 Home Care Provider Family Medicine 02/09/22 Bike Designer Relationship Specialty Start Date End Date Greg Abrams MD [address] [place], [place] 853531 PCP - General Internal Medicine 07/06/22 Natasha Ray MD [address] [facility] [place] [address] Cardiology 05/18/20 Vonnie Esparza MD [address] [place], [place] [phone] Specialty Drying Frame Operator General Surgery 06/28/20 Jenna Claudio PA-C [address] [facility] [address]25 Referring General Surgery 02/09/22 Shay Oro MD [address] [place], [place] 492903 Consulting General Surgery 02/09/22 Lizbeth Pool MD [address] [facility], [place] 894391 Home Care Provider Family Medicine 02/09/22 Bike Designer Relationship Specialty Start Date End Date Greg Abrams MD [address] [facility] 116481 PCP - General Internal Medicine 07/06/22 Natasha Ray MD [address] [facility] [place] 882811 Cardiology 05/18/20 Vonnie Esparza MD [address] [place], [place] [phone] Specialty Drying Frame Operator General Surgery 06/28/20 Jenna Claudio PA-C [address] [place] 167235 Referring General Surgery 02/09/22 Shay Oro MD [address] [place], [place] 090023 Consulting General Surgery 02/09/22 Lizbeth Pool MD [address] [facility] [place] [address] Home Care Provider Family Medicine 02/09/22 Bike Designer Relationship Specialty Start Date End Date Greg Abrams MD [address] [place] [address] PCP - General Internal Medicine 07/06/22 Natasha Ray MD [address] [place] [address] Cardiology 05/18/20 Vonnie Esparza MD [address] [place], [place] 90127685 Specialty Drying Frame Operator General Surgery 06/28/20 Jenna Claudio PA-C [address] [facility] [address]85 Referring General Surgery 02/09/22 Shay Oro MD [address] [place], [place] 384573 Consulting General Surgery 02/09/22 Lizbeth Pool MD [address] [place] [address] Home Care Provider Family Medicine 02/09/22 Bike Designer Relationship Specialty Start Date End Date Greg Abrams MD [address] [place] [address] PCP - General Internal Medicine 07/06/22 Natasha Ray MD [address] [place] [address] Cardiology 05/18/20 Vonnie Esparza MD [address] [facility] 134865 Specialty Drying Frame Operator General Surgery 06/28/20 Jenna Claudio PA-C [address] [facility] 9[address]25 Referring General Surgery 02/09/22 Shay Oro MD [address] [place], [place] 657603 Consulting General Surgery 02/09/22 Lizbeth Pool MD [address] [place], [place] 861041 Home Care Provider Family Medicine 02/09/22 Bike Designer Relationship Specialty Start Date End Date Lizbeth Pool MD [address] [place], [place] 808391 PCP - General Family Medicine 04/10/17 07/05/22 Greg Abrams MD [address] [place], [place] 838971 PCP - General Internal Medicine 07/06/22 Natasha Ray MD [address] [place], [place] 648421 Cardiology 05/18/20 Vonnie Esparza MD [address] [place], [place] [phone] Specialty Drying Frame Operator General Surgery 06/28/20 Sen Brown, JONATHAN [address] [place] [address] Quality Assurance Representative Post Acute Care 02/10/22 03/13/22 Jenna Claudio PA-C [address] [place], [place] 1340531 Referring General Surgery 02/09/22 Shay Oro MD [address] [place], [place] 762653 Consulting General Surgery 02/09/22 Lizbeth Pool MD [address] [place] [address] Home Care Provider Family Medicine 02/09/22 Hilda Amos, house repairer Certified Welder Internal Medicine 02/10/22 03/12/22 Sarah Gamez [facility] [address] [place] [address] Transitional Care Pharmacist Pharmacy 02/12/22 03/12/22 Bike Designer Relationship Specialty Start Date End Date Greg Abrams MD [address] [place], [place] 198611 PCP - General Internal Medicine 07/06/22 Natasha Ray MD [address] [place], [place] 434031 Cardiology 05/18/20 Vonnie Esparza MD [address] [place], [place] [id number] Specialty Drying Frame Operator General Surgery 06/28/20 Jenna Claudio PA-C [address] [place], [place] [phone] Referring General Surgery 02/09/22 Shay Oro MD [address] [place] [address] Consulting General Surgery 02/09/22 Lizbeth Pool MD [address] [place] [address] Home Care Provider Family Medicine 02/09/22 Bike Designer Relationship Specialty Start Date End Date Greg Abrams MD [address] [place] [address] PCP - General Internal Medicine 07/06/22 Natasha Ray MD [address] [place] [address] Cardiology 05/18/20 Vonnie Esparza MD [address] [place], [place] 542185 Specialty Drying Frame Operator General Surgery 06/28/20 Jenna Claudio PA-C [address] [place], [place] 678635 Referring General Surgery 02/09/22 Shay Oro MD [address] [place] [address] Consulting General Surgery 02/09/22 Lizbeth Pool MD [address] [place] [address] Home Care Provider Family Medicine 02/09/22 Bike Designer Relationship Specialty Start Date End Date Greg Abrams MD [address] [place] [place] [address] PCP - General Internal Medicine 07/06/22 Natasha Ray MD [address] [place] [address] Cardiology 05/18/20 Vonnie Esparza MD [address] [place], [place] [phone] Specialty Drying Frame Operator General Surgery 06/28/20 Jenna Claudio PA-C [address] [place], [place] 35588685 Referring General Surgery 02/09/22 Shay Oro MD [address] [facility] 089033 Consulting General Surgery 02/09/22 Lizbeth Pool MD [address] [facility] [place] [address] Home Care Provider Family Medicine 02/09/22 Bike Designer Relationship Specialty Start Date End Date Greg Abrams MD [address] [place] [address] PCP - General Internal Medicine 07/06/22 Natasha Ray MD [address] [place], [place] 555611 Cardiology 05/18/20 Vonnie Esparza MD [address] [place], [place] 196085 Specialty Drying Frame Operator General Surgery 06/28/20 Jenna Claudio PA-C [address] [place], [place] 706525 Referring General Surgery 02/09/22 Shay Oro MD [address] [facility] [place] 439[place] Consulting General Surgery 02/09/22 Lizbeth Pool MD [address] [place] [address] Home Care Provider Family Medicine 02/09/22 Bike Designer Relationship Specialty Start Date End Date Lizbeth Pool MD [address] [place] [address] PCP - General Family Medicine 04/10/17 07/05/22 Natasha Ray MD [address] [place] [address] Cardiology 05/18/20 Vonnie Esparza MD [address] [place], [place] [phone] Specialty Drying Frame Operator General Surgery 06/28/20 Jenna Claudio PA-C [address] [place], [place] [phone] Referring General Surgery 02/09/22 Shay Oro MD [address] [place], [place] 961083 Consulting General Surgery 02/09/22 Lizbeth Pool MD [address] [place] [address] Home Care Provider Family Medicine 02/09/22 Bike Designer Relationship Specialty Start Date End Date Lizbeth Pool MD [address] [place] [address] PCP - General Family Medicine 04/10/17 07/05/22 Natasha Ray MD [address] [place] [address] Cardiology 05/18/20 Vonnie Esparza MD [address] [place], [place] 02287685 Specialty Drying Frame Operator General Surgery 06/28/20 Bike Designer Relationship Specialty Start Date End Date Lizbeth Pool MD [address] [place], [place] 495521 PCP - General Family Medicine 04/10/17 07/05/22 Natasha Ray MD [address] [place], [place] 267891 Cardiology 05/18/20 Vonnie Esparza MD [address] [place], [place] 061325 Specialty Drying Frame Operator General Surgery 06/28/20 Bike Designer Relationship Specialty Start Date End Date Greg Abrams MD [address] [place], [place] 671011 PCP - General Internal Medicine 07/06/22 Natasha Ray MD [address] [place] [place] 644281 Cardiology 05/18/20 Vonnie Esparza MD [address] [place], [place] 193225 Specialty Drying Frame Operator General Surgery 06/28/20 Jenna Claudio PA-C [address] [place], [place] [phone] Referring General Surgery 02/09/22 Shay Oro MD [address] [place], [place] 320383 Consulting General Surgery 02/09/22 Lizbeth Pool MD [address] [place], [place] 708341 Home Care Provider Family Medicine 02/09/22 Bike Designer Relationship Specialty Start Date End Date Lizbeth Pool MD [address] [place], [place] 110851 PCP - General Family Medicine 04/10/17 07/05/22 Natasha Ray MD [address] [place], [place] 89959691 Cardiology 05/18/20 Vonnie Esparza MD [address] [place], [place] 069445 Specialty Drying Frame Operator General Surgery 06/28/20 Bike Designer Relationship Specialty Start Date End Date Lizbeth Pool MD [address] [place], [place] 680361 PCP - General Family Medicine 04/10/17 07/05/22 Natasha Ray MD [address] [place], [place] 401441 Cardiology 05/18/20 Vonnie Esparza MD [address] [place], [place] 202855 Specialty Drying Frame Operator General Surgery 06/28/20 Bike Designer Relationship Specialty Start Date End Date Greg Abrams MD [address] [place], [place] 559731 PCP - General Internal Medicine 07/06/22 Natasha Ray MD [address] [place] 7857[address] Cardiology 05/18/20 Vonnie Esparza MD [address] [place], [place] 86824685 Specialty Drying Frame Operator General Surgery 06/28/20 Jenna Claudio PA-C [address] [place], [place] 22743685 Referring General Surgery 02/09/22 Shay Oro MD [address] [place] [address] Consulting General Surgery 02/09/22 Lizbeth Pool MD [address] [place] [address] Home Care Provider Family Medicine 02/09/22 Bike Designer Relationship Specialty Start Date End Date Greg Abrams MD [address] [place] [address] PCP - General Internal Medicine 07/06/22 Natasha Ray MD [address] [place] [address] Cardiology 05/18/20 Vonnie Esparza MD [address] [facility] 167[address] Specialty Drying Frame Operator General Surgery 06/28/20 Jenna Claudio PA-C [address] [place], [place] 801465 Referring General Surgery 02/09/22 Shay Oro MD [address] [place], [place] 808643 Consulting General Surgery 02/09/22 Lizbeth Pool MD [address] [place] [address] Home Care Provider Family Medicine 02/09/22 Bike Designer Relationship Specialty Start Date End Date Greg Abrams MD [address] [place] [address] PCP - General Internal Medicine 07/06/22 Natasha Ray MD [address] [place] [address] Cardiology 05/18/20 Vonnie Esparza MD [address] [facility] [place] [place] [address] [phone] Specialty Drying Frame Operator General Surgery 06/28/20 Jenna Claudio PA-C [address] [place], [place] 278467 [phone] Referring General Surgery 02/09/22 Shay Oro MD [address] [place] [address] Consulting General Surgery 02/09/22 Lizbeth Pool MD [address] [place] [address] Home Care Provider Family Medicine 02/09/22 Bike Designer Relationship Specialty Start Date End Date Greg Abrams MD [address] [place] [address] PCP - General Internal Medicine 07/06/22 Natasha Ray MD [address] [place] [address] Cardiology 05/18/20 Vonnie Esparza MD [address] [place], [place] 278305 Specialty Drying Frame Operator General Surgery 06/28/20 Jenna Claudio PA-C [address] [place], [place] 828145 Referring General Surgery 02/09/22 Shay Oro MD [address] [place] [address] Consulting General Surgery 02/09/22 Lizbeth Pool MD [address] [place] [place] [address] Home Care Provider Family Medicine 02/09/22 Bike Designer Relationship Specialty Start Date End Date Greg Abrams MD [address] [place] [place] [address] PCP - General Internal Medicine 07/06/22 Natasha Ray MD [address] [place] [address] Cardiology 05/18/20 Vonnie Esparza MD [address] [place], [place] 84786685 Specialty Drying Frame Operator General Surgery 06/28/20 Jenna Claudio PA-C [address] [place], [place] 854315 Referring General Surgery 02/09/22 Shay Oro MD [address] [place], [place] 122843 Consulting General Surgery 02/09/22 Lizbeth Pool MD [address] [place] [address] Home Care Provider Family Medicine 02/09/22 Bike Designer Relationship Specialty Start Date End Date Greg Abrams MD [address] [place] [address] PCP - General Internal Medicine 07/06/22 Natasha Ray MD [address] [place], [place] 872741 Cardiology 05/18/20 Vonnie Esparza MD [address] [place], [place] 983625 Specialty Drying Frame Operator General Surgery 06/28/20 Jenna Claudio PA-C [address] [place], [place] 828985 Referring General Surgery 02/09/22 Shay Oro MD [address] [place], [place] 769433 Consulting General Surgery 02/09/22 Lizbeth Pool MD [address] [place] [address] Home Care Provider Family Medicine 02/09/22 Luana Tripathi APRN.PANEL ASSEMBLER [address] [place], [place] [phone] Leadership Program Associate Internal Medicine 03/23/24 Delaney Mora APRN.ALMOND ROASTER [address] [place], [place] [phone] Leadership Program Associate Internal Medicine 03/23/24 Bike Designer Relationship Specialty Start Date End Date Greg Abrams MD [address] [place] [address] [id number] PCP - General Internal Medicine 07/06/22 Natasha Ray MD [address] [place], [place] 70485691 Cardiology 05/18/20 Vonnie Esparza MD [address], [place] 39293685 Specialty Drying Frame Operator General Surgery 06/28/20 Jenna Claudio PA-C [address] [place], [place] 93301685 Referring General Surgery 02/09/22 Shay Oro MD [address] [place], [place] 482883 Consulting General Surgery 02/09/22 Lizbeth Pool MD [facility] [place], [place] 475111 Home Care Provider Family Medicine 02/09/22 Luana Tripathi APRN.PANEL ASSEMBLER [address] [place], [place] 410741 Leadership Program Associate Internal Medicine 03/23/24 Delaney Mora APRN.ALMOND ROASTER [address] [place], [place] 725701 Leadership Program Associate Internal Medicine 03/23/24 Bike Designer Relationship Specialty Start Date End Date Greg Abrams MD [address] [place], [place] 409651 PCP - General Internal Medicine 07/06/22 Natasha Ray MD [address] [place], [place] 09220691 Cardiology 05/18/20 Vonnie Esparza MD [address] [place], [place] 25343685 Specialty Drying Frame Operator General Surgery 06/28/20 Jenna Claudio PA-C [address] [place], [place] [phone] Referring General Surgery 02/09/22 Shay Oro MD [address] [place], [place] 82423333 Consulting General Surgery 02/09/22 Lizbeth Pool MD [address] [place], [place] 57875691 Home Care Provider Family Medicine 02/09/22 Luana Tripathi APRN.PANEL ASSEMBLER [address] [place], [place] 072741 Leadership Program Associate Internal Medicine 03/23/24 Delaney Mora APRN.ALMOND ROASTER [address] [place], [place] 197911 Leadership Program Associate Internal Medicine 03/23/24 Bike Designer Relationship Specialty Start Date End Date Greg Abrams MD [address] [place], [place] [phone] PCP - General Internal Medicine 07/06/22 Natasha Ray MD [address] [place], [place] 58317691 Cardiology 05/18/20 Vonnie Esparza MD [address] [place], [place] 125[address]85 Specialty Drying Frame Operator General Surgery 06/28/20 Jenna Claudio PA-C [address], [place] [phone] Referring General Surgery 02/09/22 Shay Oro MD [address] [place], [place] 16513333 Consulting General Surgery 02/09/22 Lizbeth Pool MD [address] [place], [place] 385711 Home Care Provider Family Medicine 02/09/22 Luana Tripathi APRN.PANEL ASSEMBLER [address] [place], [place] 628401 Leadership Program Associate Internal Medicine 03/23/24 Delaney Mora APRN.ALMOND ROASTER [address] [place], [place] [phone] Leadership Program Associate Internal Medicine 03/23/24 Bike Designer Relationship Specialty Start Date End Date Greg Abrams MD [address] [place], [place] 573461 PCP - General Internal Medicine 07/06/22 Natasha Ray MD [address] [place], [place] 571861 Cardiology 05/18/20 Vonnie Esparza MD [address] [place], [place] 21693685 Specialty Drying Frame Operator General Surgery 06/28/20 Jenna Claudio PA-C [address] [place], [place] [phone] Referring General Surgery 02/09/22 Shay Oro MD [address] [place], [place] 026523 Consulting General Surgery 02/09/22 Lizbeth Pool MD [address] [place], [place] 647241 Home Care Provider Family Medicine 02/09/22 Luana Tripathi, TANYA.PANEL ASSEMBLER [address] [place] [address] Leadership Program Associate Internal Medicine 03/23/24 Delaney Mora APRN.ALMOND ROASTER [address] [place] [address] Leadership Program Associate Internal Medicine 03/23/24 Bike Designer Relationship Specialty Start Date End Date Greg Abrams MD [address] [place], [place] 345101 PCP - General Internal Medicine 07/06/22 Natasha Ray MD [address] [place], [place] 653821 Cardiology 05/18/20 Vonnie Esparza MD [address] [place], [place] 69716685 Specialty Drying Frame Operator General Surgery 06/28/20 Jenna Claudio PA-C [address] [place], [place] [phone] Referring General Surgery 02/09/22 Shay Oro MD [address] [place], [place] 707843 Consulting General Surgery 02/09/22 Lizbeth Pool MD [address] [place], [place] 457721 Home Care Provider Family Medicine 02/09/22 Luana Tripathi, LEARNING DISABILITIES TEACHER.PANEL ASSEMBLER [address] [place], [place] 475471 Leadership Program Associate Internal Medicine 03/23/24 Delaney Mora, LEARNING DISABILITIES TEACHER.ALMOND ROASTER [address] [place], [place] 004141 Leadership Program Associate Internal Medicine 03/23/24 Bike Designer Relationship Specialty Start Date End Date Greg Abrams MD [address] [place], [place] 809981 PCP - General Internal Medicine 07/06/22 Natasha Ray MD [address], [place] 1998[address]91 Cardiology 05/18/20 Vonnie Esparza MD [address] [place], [place] [phone] Specialty Drying Frame Operator General Surgery 06/28/20 Jenna Claudio PA-C [address] [place], [place] [phone] Referring General Surgery 02/09/22 Shay Oro MD [address] [place], [place] 829743 Consulting General Surgery 02/09/22 Lizbeth Pool MD [address] [place], [place] 772861 Home Care Provider Family Medicine 02/09/22 Luana Tripathi, TANYA.PANEL ASSEMBLER [address] [place] [address] Leadership Program Associate Internal Medicine 03/23/24 Delaney Mora LEARNING DISABILITIES TEACHER.ALMOND ROASTER [address] [place] [address] Leadership Program Associate Internal Medicine 03/23/24 Bike Designer Relationship Specialty Start Date End Date Greg Abrams MD [address] [place] [address] PCP - General Internal Medicine 07/06/22 Natasha Ray MD [address] [place], [place] 572111 Cardiology 05/18/20 Vonnie Esparza MD [address] [place], [place] 54862685 Specialty Drying Frame Operator General Surgery 06/28/20 Jenna Claudio PA-C [address] [place], [place] [phone] Referring General Surgery 02/09/22 Shay Oro MD [address] [place], [place] 85651333 Consulting General Surgery 02/09/22 Lizbeth Pool MD [address] [place], [place] 055501 Home Care Provider Family Medicine 02/09/22 Luana Tripathi, LEARNING DISABILITIES TEACHER.PANEL ASSEMBLER [address] [place], [place] 635861 Leadership Program Associate Internal Medicine 03/23/24 Delaney Mora, LEARNING DISABILITIES TEACHER.ALMOND ROASTER [address] [place], [place] 087691 Leadership Program Associate Internal Medicine 03/23/24 Bike Designer Relationship Specialty Start Date End Date Greg Abrams MD [address] [place] [address] PCP - General Internal Medicine 07/06/22 Natasha Ray MD [address] [place], [place] 117191 [phone] Cardiology 05/18/20 Vonnie Esparza MD [address] [place], [place] 726075 Specialty Drying Frame Operator General Surgery 06/28/20 Jenna Claudio PA-C [address] [place], [place] [phone] Referring General Surgery 02/09/22 Shay Oor MD [address] [place], [place] 93788333 Consulting General Surgery 02/09/22 Lizbeth Pool MD [address] [place], [place] 45692691 Home Care Provider Family Medicine 02/09/22 Luana Tripathi APRN.PANEL ASSEMBLER [address] [place], [place] [phone] Leadership Program Associate Internal Medicine 03/23/24 Delaney Mora APRN.ALMOND ROASTER [address] [place], [place] [phone] Leadership Program Associate Internal Medicine 03/23/24 Bike Designer Relationship Specialty Start Date End Date Greg Abrams MD [address] [place], [place] 910021 PCP - General Internal Medicine 07/06/22 Natasha Ray MD [address] [place], [place] [phone] Cardiology 05/18/20 Vonnie Esparza MD [address] [place], [place] 83200685 Specialty Drying Frame Operator General Surgery 06/28/20 Jenna Claudio PA-C [address] [place], [place] [phone] Referring General Surgery 02/09/22 Shay Oro MD [address] [place] 306293 Consulting General Surgery 02/09/22 Lizbeth Pool MD [address] [place], [place] 245091 Home Care Provider Family Medicine 02/09/22 Luana Tripathi APRN.PANEL ASSEMBLER [address] [place], [place] 782361 Leadership Program Associate Internal Medicine 03/23/24 Delaney Mora APRN.ALMOND ROASTER [address] [place], [place] 674961 Leadership Program Associate Internal Medicine 03/23/24 Bike Designer Relationship Specialty Start Date End Date Greg Abrams MD [address] [place], [place] 481601 PCP - General Internal Medicine 07/06/22 Natasha Ray MD [address] [place], [place] [phone] Cardiology 05/18/20 Vonnie Esparza MD [address] [place], [place] 92685685 Specialty Drying Frame Operator General Surgery 06/28/20 Jenna Claudio PA-C [address] [place], [place] [phone] Referring General Surgery 02/09/22 Shay Oro MD [address] [place], [place] 61712333 Consulting General Surgery 02/09/22 Lizbeth Pool MD [address] [place], [place] 93923691 Home Care Provider Family Medicine 02/09/22 Luana Tripathi, LEARNING DISABILITIES TEACHER.PANEL ASSEMBLER [address] [place], [place] 170341 Leadership Program Associate Internal Medicine 03/23/24 Delaney Mora LEARNING DISABILITIES TEACHER.ALMOND ROASTER [address] [place], [place] [id number] Leadership Program Associate Internal Medicine 03/23/24 Bike Designer Relationship Specialty Start Date End Date Greg Abrams MD [address] [place], [place] [id number] PCP - General Internal Medicine 07/06/22 Natasha Ray MD [address], [place] [id number] Cardiology 05/18/20 Vonnie Esparza MD [address] [place], [place] [id number] Specialty Drying Frame Operator General Surgery 06/28/20 Jenna Claudio PA-C [address] [place], [place] [id number] Referring General Surgery 02/09/22 Shay Oro MD [address] [place], [place] 305843 Consulting General Surgery 02/09/22 Lizbeth Pool MD [address] [place], [place] 148061 Home Care Provider Family Medicine 02/09/22 Luana Tripathi APRN.PANEL ASSEMBLER [address] [place], [place] 757231 Leadership Program Associate Internal Medicine 03/23/24 Delaney Mora APRN.ALMOND ROASTER [address] [place], [place] [id number] Leadership Program Associate Internal Medicine 03/23/24 Bike Designer Relationship Specialty Start Date End Date Greg Abrams MD [address] [place], [place] 286121 PCP - General Internal Medicine 07/06/22 Natasha Ray MD [address], [place] [id number] Cardiology 05/18/20 Vonnie Esparza MD [address] [place], [place] [id number] Specialty Drying Frame Operator General Surgery 06/28/20 Jenna Claudio PA-C [address] [place], [place] [id number] Referring General Surgery 02/09/22 Shay Oro MD [address] [place], [place] 924863 Consulting General Surgery 02/09/22 Lizbeth Pool MD [address] [place], [place] 950661 Home Care Provider Family Medicine 02/09/22 Luana Tripathi APRN.PANEL ASSEMBLER [address] [place], [place] 595591 Leadership Program Associate Internal Medicine 03/23/24 Delaney Mora LEARNING DISABILITIES TEACHER.ALMOND ROASTER [address] [place], [place] 988261 Leadership Program Associate Internal Medicine 03/23/24 Bike Designer Relationship Specialty Start Date End Date Greg Abrams MD [address] [place], [place] [id number] PCP - General Internal Medicine 07/06/22 Natasha Ray MD [address], [place] [id number] Cardiology 05/18/20 Vonnie Esparza MD [address] [place], [place] 87867685 Specialty Drying Frame Operator General Surgery 06/28/20 Jenna Claudio PA-C [address] [place], [place] 28631685 Referring General Surgery 02/09/22 Shay Oro MD [address] [place], [place] 784773 Consulting General Surgery 02/09/22 Lizbeth Pool MD [address] [place], [place] 31978691 Home Care Provider Family Medicine 02/09/22 Luana Tripathi APRN.PANEL ASSEMBLER [address] [place], [place] [phone] Leadership Program Associate Internal Medicine 03/23/24 Delaney Mora APRN.ALMOND ROASTER [address] [place], [place] [phone] Leadership Program Associate Internal Medicine 03/23/24 Bike Designer Relationship Specialty Start Date End Date Greg Abrams MD [address] [place], [place] [id number] PCP - General Internal Medicine 07/06/22 Natasha Ray MD [address], [place] [id number] Cardiology 05/18/20 Vonnie Espazra MD [address] [place], [place] [phone] Specialty Drying Frame Operator General Surgery 06/28/20 Jenna Claudio PA-C [address] [place], [place] [phone] Referring General Surgery 02/09/22 Shay Oro MD [address] [place], [place] 755593 Consulting General Surgery 02/09/22 Lizbeth Pool MD [address] [place], [place] 45434691 Home Care Provider Family Medicine 02/09/22 Luana Tripathi APRN.PANEL ASSEMBLER [address] [place], [place] 933601 Leadership Program Associate Internal Medicine 03/23/24 Delaney Mora APRN.ALMOND ROASTER [address] [place], [place] 889981 Leadership Program Associate Internal Medicine 03/23/24 Bike Designer Relationship Specialty Start Date End Date Greg Abrams MD [address] [place], [place] 733191 PCP - General Internal Medicine 07/06/22 Natasha Ray MD [address], [place] 658241 Cardiology 05/18/20 Vonnie Esparza MD [address] [place], [place] [phone] Specialty Drying Frame Operator General Surgery 06/28/20 Jenna Claudio PA-C [address] [place], [place] [phone] Referring General Surgery 02/09/22 Shay Oro MD [address] [place], [place] 86947333 Consulting General Surgery 02/09/22 Lizbeth Pool MD [address] [place], [place] 689271 Home Care Provider Family Medicine 02/09/22 Luana rTipathi APRN.PANEL ASSEMBLER [address] [place], [place] 210031 Leadership Program Associate Internal Medicine 03/23/24 Delaney Mora APRN.ALMOND ROASTER [address] [facility], [place] 884191 Leadership Program Associate Internal Medicine 03/23/24 Bike Designer Relationship Specialty Start Date End Date Greg Abrams MD [address] [facility], [place] 916101 PCP - General Internal Medicine 07/06/22 Natasha Ray MD [address] [place] [address] Cardiology 05/18/20 Vonnie Esparza MD [address] [place], [place] [phone] Specialty Drying Frame Operator General Surgery 06/28/20 Jenna Claudio PA-C [address] [place], [place] [phone] Referring General Surgery 02/09/22 Shay Oro MD [address] [place], [place] 969953 Consulting General Surgery 02/09/22 Lizbeth Pool MD [address] [place] [address] Home Care Provider Family Medicine 02/09/22 Luana Tripathi APRN.PANEL ASSEMBLER [address] [place] [address] Leadership Program Associate Internal Medicine 03/23/24 Delaney Mora APRN.ALMOND ROASTER [address] [place] [address] Leadership Program Associate Internal Medicine 03/23/24 Bike Designer Relationship Specialty Start Date End Date Greg Abrams MD [address] [place] [address] PCP - General Internal Medicine 07/06/22 Natasha Ray MD [address] [place] [address] Cardiology 05/18/20 Vonnie Esparza MD [address] [place], [place] [phone] Specialty Drying Frame Operator General Surgery 06/28/20 Jenna Claudio PA-C [address] [facility] [place] [place] [phone] Referring General Surgery 02/09/22 Shay Oro MD [address] [place], [place] 994853 Consulting General Surgery 02/09/22 Lizbeth Pool MD [address] [place] [address] Home Care Provider Family Medicine 02/09/22 Luana Tripathi, LEARNING DISABILITIES TEACHER.PANEL ASSEMBLER [address] [place] [place] [address] Leadership Program Associate Internal Medicine 03/23/24 Delaney Mora APRN.ALMOND ROASTER [address] [place] [address] Leadership Program Associate Internal Medicine 03/23/24 Bike Designer Relationship Specialty Start Date End Date Greg Abrams MD [address] [place] [address] PCP - General Internal Medicine 07/06/22 Natasha Ray MD [address] [facility] [place] [address] Cardiology 05/18/20 Vonnie Esparza MD [address] [place], [place] [id number] Specialty Drying Frame Operator General Surgery 06/28/20 Jenna Claudio PA-C [address] [place], [place] [phone] Referring General Surgery 02/09/22 Shay Oro MD [address] [place], [place] 389243 Consulting General Surgery 02/09/22 Lizbeth Pool MD [address] [place] [address] Home Care Provider Family Medicine 02/09/22 Luana Tripathi, LEARNING DISABILITIES TEACHER.PANEL ASSEMBLER [address] [place] [place] [address] Leadership Program Associate Internal Medicine 03/23/24 Delaney Mora, LEARNING DISABILITIES TEACHER.ALMOND ROASTER [address] [place] [address] Leadership Program Associate Internal Medicine 03/23/24 Bike Designer Relationship Specialty Start Date End Date Greg Abrams MD [address] [place] [address] PCP - General Internal Medicine 07/06/22 Natasha Ray MD [address] [facility] [place] 092881 Cardiology 05/18/20 Vonnie Esparza MD [address] [place], [place] 18393685 Specialty Drying Frame Operator General Surgery 06/28/20 Jenna Claudio PA-C [address] [place], [place] 342645 Referring General Surgery 02/09/22 Shay Oro MD [address] [facility], [place] 414723 Consulting General Surgery 02/09/22 Lizbeth Pool MD [address] [facility] [place] [address] Home Care Provider Family Medicine 02/09/22 Luana Tripathi APRN.PANEL ASSEMBLER [address] [facility] [place] [address] Leadership Program Associate Internal Medicine 03/23/24 Delaney Mora APRN.ALMOND ROASTER [address] [place] [address] Leadership Program Associate Internal Medicine 07/07/24 Team Status: Active Member Role Status Dates Dr. Greg Abrams MD Primary Care Provider Active Team Status: Inactive Member Role Status Dates Dr. Greg Abrams MD Primary Care Provider Active Start: March 27, 2024 End: March 27, 2024 Dr. Kevon No DO Attending Provider Active Start : March 27, 2024 End: March 27, 2024 Dr. Kevon No DO Emergency Provider Active Start : March 27, 2024 End: March 27, 2024 Team Status: Inactive Member Role Status Dates Dr. Greg Abrams MD Primary Care Provider Active Start: April 23, 2024 End: April 23, 2024 Dr. Greg Abrams MD Referring Provider Active Start: April 23, 2024 End: April 23, 2024 DARREN Tijerina Attending Provider Active Star t: April 23, 2024 End: April 23, 2024 Team Status: Inactive Member Role Status Dates Dr. Greg Abrams MD Primary Care Provider Active Start: April 23, 2024 End: April 23, 2024 Dr. Grant Obrien MD Attending Provider Active S tart: April 23, 2024 End: April 23, 2024 Team Status: Inactive Member Role Status Dates Dr. Greg Abrams MD Primary Care Provider Active Start: May 07, 2024 End: May 07, 2024 Dr. Lizbeth Sloan MD Attending Provider Activ e Start: May 07, 2024 End: May 07, 2024 Dr. Lizbeth Sloan MD Referring Provider Activ e Start: May 07, 2024 End: May 07, 2024 Team Status: Inactive Member Role Status Dates Dr. Greg Abrams MD Primary Care Provider Active Start: June 11, 2024 End: June 11, 2024 Jose Armando Kirkpatrick MD Attending Provider Active Star t: June 11, 2024 End: June 11, 2024 Jose Armando Kirkpatrick MD Emergency Provider Active Star t: June 11, 2024 End: June 11, 2024 Team Status: Inactive Member Role Status Dates Dr. Greg Abrams MD Primary Care Provider Active Start: July 25, 2024 End: July 25, 2024 Dr. Yaniv Buenrostro MD Emergency Provider Active S tart: July 25, 2024 End: July 25, 2024 Bike Designer Relationship Specialty Start Date End Date Greg Abrams MD [address] [place] [address] PCP - General Internal Medicine 07/06/22 Natasha Ray MD [address] [facility] [place] 159521 Cardiology 05/18/20 Vonnie Esparza MD [address] [place], [place] 715495 Specialty Drying Frame Operator General Surgery 06/28/20 Jenna Claudio PA-C [address] [place], [place] 393665 Referring General Surgery 02/09/22 Shay Oro MD [address] [place] 166023 Consulting General Surgery 02/09/22 Lizbeth Pool MD [address] [place] [address] Home Care Provider Family Medicine 02/09/22 Luana Tripathi, LEARNING DISABILITIES TEACHER.PANEL ASSEMBLER [address] [place] [address] Leadership Program Associate Internal Medicine 03/23/24 Delaney Mora LEARNING DISABILITIES TEACHER.ALMOND ROASTER [address] [place] [place] [address] Leadership Program Associate Internal Medicine 07/07/24 Bike Designer Relationship Specialty Start Date End Date Greg Abrams MD [address] [place] [address] PCP - General Internal Medicine 07/06/22 Natasha Ray MD [address] [place] [place] 778911 Cardiology 05/18/20 Vonnie Esparza MD [address] [place], [place] [id number] Specialty Drying Frame Operator General Surgery 06/28/20 Jenna Claudio PA-C [address] [place], [place] [phone] Referring General Surgery 02/09/22 Shay Oro MD [address] [place] 185983 Consulting General Surgery 02/09/22 Lizbeth Pool MD [address] [place] [address] Home Care Provider Family Medicine 02/09/22 Luana Tripathi APRN.PANEL ASSEMBLER [address] [place] [address] Leadership Program Associate Internal Medicine 03/23/24 Delaney Mora APRN.ALMOND ROASTER [address] [place] [address] Leadership Program Associate Internal Medicine 07/07/24 Bike Designer Relationship Specialty Start Date End Date Greg Abrams MD [address] [place] [address] PCP - General Internal Medicine 07/06/22 Natasha Ray MD [address] [place] [address] Cardiology 05/18/20 Vonnie Esparza MD [address] [place], [place] [phone] Specialty Drying Frame Operator General Surgery 06/28/20 Jenna Claudio PA-C [address] [place], [place] [phone] Referring General Surgery 02/09/22 Shay Oro MD [address] [place], [place] 11475333 Consulting General Surgery 02/09/22 Lizbeth Pool MD [address] [place] [address] Home Care Provider Family Medicine 02/09/22 Luana Tripathi APRN.PANEL ASSEMBLER [address] [place] [address] Leadership Program Associate Internal Medicine 03/23/24 Delaney Mora APRN.ALMOND ROASTER [address] [place] [address] Leadership Program Associate Internal Medicine 03/23/24 07/03/24 Delaney Mora APRN.ALMOND ROASTER [address] [place] [address] Leadership Program Associate Internal Medicine 07/07/24 Bike Designer Relationship Specialty Start Date End Date Greg Abrams MD [address] [place] [address] PCP - General Internal Medicine 07/06/22 Natasha Ray MD [address] [place] [address] Cardiology 05/18/20 Vonnie Esparza MD [address] [place], [place] 910955 Specialty Drying Frame Operator General Surgery 06/28/20 Jenna Claudio PA-C [address] [place], [place] 936925 Referring General Surgery 02/09/22 Shay Oro MD [address] [place] 034763 Consulting General Surgery 02/09/22 Lizbeth Pool MD [address] [place], [place] 138381 Home Care Provider Family Medicine 02/09/22 Luana Tripathi APRN.PANEL ASSEMBLER [address] [place] [address] Leadership Program Associate Internal Medicine 03/23/24 Delaney Mora LEARNING DISABILITIES TEACHER.ALMOND ROASTER [address] [place], [place] 624181 Leadership Program Associate Internal Medicine 07/07/24 Bike Designer Relationship Specialty Start Date End Date Greg Abrams MD [address] [place] [address] PCP - General Internal Medicine 07/06/22 Natasha Ray MD [address] [place], [place] 261081 Cardiology 05/18/20 Vonnie Esparza MD [address] [place], [place] [phone] Specialty Drying Frame Operator General Surgery 06/28/20 Jenna Claudio PA-C [address] [place], [place] [phone] Referring General Surgery 02/09/22 Shay Oro MD [address] [place] 052033 Consulting General Surgery 02/09/22 Lizbeth Pool MD [address] [place], [place] 868291 Home Care Provider Family Medicine 02/09/22 Luana Tripathi APRN.PANEL ASSEMBLER [address] [place] [address] Leadership Program Associate Internal Medicine 03/23/24 Delaney Mora LEARNING DISABILITIES TEACHER.ALMOND ROASTER [address] [place], [place] 210331 Leadership Program Associate Internal Medicine 07/07/24 Bike Designer Relationship Specialty Start Date End Date Greg Abrams MD [address] [place], [place] 317091 PCP - General Internal Medicine 07/06/22 Natasha Ray MD [address], [place] 474791 Cardiology 05/18/20 Vonnie Esparza MD [address] [place], [place] [phone] Specialty Drying Frame Operator General Surgery 06/28/20 Jenna Claudio PA-C [address] [place], [place] 12428685 Referring General Surgery 02/09/22 Shay Oro MD [address] [place], [place] 40477333 Consulting General Surgery 02/09/22 Lizbeth Pool MD [address] [place], [place] 149891 Home Care Provider Family Medicine 02/09/22 Luana Tripathi, LEARNING DISABILITIES TEACHER.PANEL ASSEMBLER [address] [place], [place] 699061 Leadership Program Associate Internal Medicine 03/23/24 Delaney Mora, LEARNING DISABILITIES TEACHER.ALMOND ROASTER [address] [place], [place] 562641 Leadership Program Associate Internal Medicine 07/07/24 Bike Designer Relationship Specialty Start Date End Date Greg Abrams MD [address] [place], [place] 458431 PCP - General Internal Medicine 07/06/22 Natasha Ray MD [address], [place] [phone] Cardiology 05/18/20 Vonnie Esparza MD [address] [place], [place] 67967685 Specialty Drying Frame Operator General Surgery 06/28/20 Jenna Claudio PA-C [address] [place], [place] 546005 Referring General Surgery 02/09/22 Shay Oro MD [address] [place] 689553 Consulting General Surgery 02/09/22 Lizbeth Pool MD [address] [place] [address] Home Care Provider Family Medicine 02/09/22 Luana Tripathi APRN.PANEL ASSEMBLER [address] [place] [address] Leadership Program Associate Internal Medicine 03/23/24 Delaney Mora APRN.ALMOND ROASTER [address] [place] [address] Leadership Program Associate Internal Medicine 07/07/24 Bike Designer Relationship Specialty Start Date End Date Greg Abrams MD [address] [place] [address] PCP - General Internal Medicine 07/06/22 Natasha Ray MD [address], [place] 066621 Cardiology 05/18/20 Vonnie Esparza MD [address] [place], [place] [phone] Specialty Drying Frame Operator General Surgery 06/28/20 Jenna Claudio PA-C [address] [place], [place] [phone] Referring General Surgery 02/09/22 Shay Oro MD [address] [place], [place] 336483 Consulting General Surgery 02/09/22 Lizbeth Pool MD [address] [place], [place] 365211 Home Care Provider Family Medicine 02/09/22 Luana Tripathi, LEARNING DISABILITIES TEACHER.PANEL ASSEMBLER [address] [place] [address] Leadership Program Associate Internal Medicine 03/23/24 Delaney Mora LEARNING DISABILITIES TEACHER.ALMOND ROASTER [address] [place], [place] 243501 Leadership Program Associate Internal Medicine 07/07/24 Bike Designer Relationship Specialty Start Date End Date Greg Abrams MD [address] [place], [place] 329511 PCP - General Internal Medicine 07/06/22 Natasha Ray MD [address], [place] 478791 Cardiology 05/18/20 Vonnie Esparza MD [address] [place], [place] [id number] Specialty Drying Frame Operator General Surgery 06/28/20 Jenna Claudio PA-C [address] [place], [place] 87812685 Referring General Surgery 02/09/22 Shay Oro MD [address] [place] [address] Consulting General Surgery 02/09/22 Lizbeth Pool MD [address] [place], [place] 460671 Home Care Provider Family Medicine 02/09/22 Luana Tripathi APRN.PANEL ASSEMBLER [address] [place], [place] 343211 Leadership Program Associate Internal Medicine 03/23/24 Delaney Mora APRN.ALMOND ROASTER [address] [place] [address] Leadership Program Associate Internal Medicine 07/07/24 Bike Designer Relationship Specialty Start Date End Date Greg Abrams MD [address] [place], [place] [id number] PCP - General Internal Medicine 07/06/22 Natasha Ray MD [address], [place] 173141 Cardiology 05/18/20 Vonnie Esparza MD [address] [place], [place] 84300685 Specialty Drying Frame Operator General Surgery 06/28/20 Jenna Claudio PA-C [address] [place], [place] [phone] Referring General Surgery 02/09/22 Shay Oro MD [address] [place] [address] Consulting General Surgery 02/09/22 Lizbeth Pool MD [address] [place] [address] Home Care Provider Family Medicine 02/09/22 Luana Tripathi APRN.PANEL ASSEMBLER [address] [place] [address] Leadership Program Associate Internal Medicine 03/23/24 Delaney Mora APRN.ALMOND ROASTER [address] [place] [address] Leadership Program Associate Internal Medicine 07/07/24 Bike Designer Relationship Specialty Start Date End Date Greg Abrams MD [address] [place] [address] PCP - General Internal Medicine 07/06/22 Natasha Ray MD [address] [place] [address] Cardiology 05/18/20 Vonnie Esparza MD [address] [place], [place] 19769685 Specialty Drying Frame Operator General Surgery 06/28/20 Jenna Claudio PA-C [address] [place], [place] [phone] Referring General Surgery 02/09/22 Shay Oro MD [address] [place], [place] 087433 Consulting General Surgery 02/09/22 Lizbeth Pool MD [address] [place] [address] Home Care Provider Family Medicine 02/09/22 Delaney Mora APRN.ALMOND ROASTER [address] [place] [address] Leadership Program Associate Internal Medicine 07/07/24 Luana Tripathi APRN.PANEL ASSEMBLER [address] [facility] [place] [address] Leadership Program Associate Internal Medicine 09/02/24 Bike Designer Relationship Specialty Start Date End Date Greg Abrams MD [address] [facility] 422221 PCP - General Internal Medicine 07/06/22 Natasha Ray MD [address], [place] 705321 Cardiology 05/18/20 Vonnie Esparza MD [address] [place], [place] [phone] Specialty Drying Frame Operator General Surgery 06/28/20 Jenna Claudio PA-C [address] [place], [place] [phone] Referring General Surgery 02/09/22 Shay Oro MD [address] [place], [place] 693603 Consulting General Surgery 02/09/22 Lizbeth Pool MD [address] [place] [address] Home Care Provider Family Medicine 02/09/22 Delaney Mora, LEARNING DISABILITIES TEACHER.ALMOND ROASTER [address] [place] [address] Leadership Program Associate Internal Medicine 07/07/24 Luana Tripathi, LEARNING DISABILITIES TEACHER.PANEL ASSEMBLER [address] [place] [address] Leadership Program Associate Internal Medicine 09/02/24 Bike Designer Relationship Specialty Start Date End Date Greg Abrams MD [address] [place] [address] PCP - General Internal Medicine 07/06/22 Natasha Ray MD [address] [place] [address] Cardiology 05/18/20 Vonnie Esparza MD [address] [place], [place] [phone] Specialty Drying Frame Operator General Surgery 06/28/20 Jenna Claudio PA-C [address] [facility] [place], [place] 10247685 Referring General Surgery 02/09/22 Shay Oro MD [address] [place], [place] 693663 Consulting General Surgery 02/09/22 Lizbeth Pool MD [address] [place] [address] Home Care Provider Family Medicine 02/09/22 Delaney Mora, LEARNING DISABILITIES TEACHER.ALMOND ROASTER [address] [place] [address] Leadership Program Associate Internal Medicine 07/07/24 Luana Tripathi APRN.PANEL ASSEMBLER [address] [place] [address] Leadership Program Associate Internal Medicine 09/02/24 Bike Designer Relationship Specialty Start Date End Date Greg Abrams MD [address] [facility] [place] [place] 020[address] PCP - General Internal Medicine 07/06/22 Natasha Ray MD [address] [place] 337551 Cardiology 05/18/20 Vonnie Esparza MD [address] [place], [place] 59014685 Specialty Drying Frame Operator General Surgery 06/28/20 Jenna Claudio PA-C [address] [place], [place] [phone] Referring General Surgery 02/09/22 Shay Oro MD [address] [place], [place] 34501333 Consulting General Surgery 02/09/22 Lizbeth Pool MD [address] [place], [place] 757851 Home Care Provider Family Medicine 02/09/22 Delaney Mora, LEARNING DISABILITIES TEACHER.ALMOND ROASTER [address] [place] [place] [address] Leadership Program Associate Internal Medicine 07/07/24 Luana Tripathi, LEARNING DISABILITIES TEACHER.PANEL ASSEMBLER [address] [place] [place] [address] Leadership Program Associate Internal Medicine 09/02/24 Bike Designer Relationship Specialty Start Date End Date Greg Abrams MD [address] [place] [address] PCP - General Internal Medicine 07/06/22 Natasha Ray MD [address] [place] [address] Cardiology 05/18/20 Vonnie Esparza MD [address] [place], [place] 685545 Specialty Drying Frame Operator General Surgery 06/28/20 Jenna Claudio PA-C [address] [facility] [place] [place] 9[address]15 Referring General Surgery 02/09/22 Shay Oro MD [address] [place] 239433 Consulting General Surgery 02/09/22 Lizbeth Pool MD [address] [place] [address] Home Care Provider Family Medicine 02/09/22 Delaney Mora APRN.ALMOND ROASTER [address] [place] [address] Leadership Program Associate Internal Medicine 07/07/24 Luana Tripathi APRN.PANEL ASSEMBLER [address] [place] [address] Leadership Program Associate Internal Medicine 09/02/24 Bike Designer Relationship Specialty Start Date End Date Greg Abrams MD [address] [place] [address] PCP - General Internal Medicine 07/06/22 Natasha Ray MD [address] [place] [address] Cardiology 05/18/20 Vonnie Esparza MD [address] [place], [place] [phone] Specialty Drying Frame Operator General Surgery 06/28/20 Jenna Claudio PA-C [address] [place], [place] [phone] Referring General Surgery 02/09/22 Shay Oro MD [address] [place], [place] 43524333 Consulting General Surgery 02/09/22 Lizbeth Pool MD [address] [place], [place] [phone] Home Care Provider Family Medicine 02/09/22 Delaney Mora, LEARNING DISABILITIES TEACHER.ALMOND ROASTER [address] [place] [address] Leadership Program Associate Internal Medicine 07/07/24 Luana Tripathi, TANYA.PANEL ASSEMBLER [address] [place] [address] Leadership Program Associate Internal Medicine 09/02/24 Bike Designer Relationship Specialty Start Date End Date Greg Abrams MD [address] [place] [address] PCP - General Internal Medicine 07/06/22 Natasha Ray MD [address] [place] [address] Cardiology 05/18/20 Vonnie Esparza MD [address] [place], [place] 954175 Specialty Drying Frame Operator General Surgery 06/28/20 Jenna Claudio PA-C [address] [place], [place] 789355 Referring General Surgery 02/09/22 Shay Oro MD [address] [place], [place] 74852333 Consulting General Surgery 02/09/22 Lizbeth Pool MD [address] [place] [address] Home Care Provider Family Medicine 02/09/22 Delaney Mora APRN.ALMOND ROASTER [address] [place], [place] 956471 Leadership Program Associate Internal Medicine 07/07/24 Luana Tripathi, TANYA.PANEL ASSEMBLER [address] [place], [place] 858541 Leadership Program Associate Internal Medicine 09/02/24 Bike Designer Relationship Specialty Start Date End Date Greg Abrams MD [address] [place], [place] 620721 PCP - General Internal Medicine 07/06/22 Natasha Ray MD [address], [place] [address] Cardiology 05/18/20 Vonnie Esparza MD [address] [place], [place] [address] Specialty Drying Frame Operator General Surgery 06/28/20 Jenna Claudio PA-C [address] [place], [place] [id number] Referring General Surgery 02/09/22 Shay Oro MD [address] [place], [place] [address]83 Consulting General Surgery 02/09/22 Lizbeth Pool MD [address] [place], [place] 296131 Home Care Provider Family Medicine 02/09/22 Delaney Mora APRN.ALMOND ROASTER [address] [place] [address] Leadership Program Associate Internal Medicine 07/07/24 Luana Tripathi APRN.PANEL ASSEMBLER [address] [place] [address] Leadership Program Associate Internal Medicine 09/02/24 Bike Designer Relationship Specialty Start Date End Date Greg Abrams MD [address] [place], [place] [id number] PCP - General Internal Medicine 07/06/22 Natasha Ray MD [address], [place] [address] Cardiology 05/18/20 Vonnie Esparza MD [address] [place], [place] [id number] Specialty Drying Frame Operator General Surgery 06/28/20 Jenna Claudio PA-C [address] [place], [place] [id number] Referring General Surgery 02/09/22 Shay Oro MD [address] [place] [place], [place] [id number] Consulting General Surgery 02/09/22 Lizbeth Pool MD [address] [place] [address] Home Care Provider Family Medicine 02/09/22 Delaney Mora LEARNING DISABILITIES TEACHER.ALMOND ROASTER [address] [place], [place] 497551 Leadership Program Associate Internal Medicine 07/07/24 Luana Tripathi, TANYA.PANEL ASSEMBLER [address] [place], [place] 9[address]791 Leadership Program Associate Internal Medicine 09/02/24 Bike Designer Relationship Specialty Start Date End Date Greg Abrams MD [address] [place], [place] 665271 PCP - General Internal Medicine 07/06/22 Natasha Ray MD [address], [place] [id number] Cardiology 05/18/20 Vonnie Esparza MD [address] [place], [place] [id number] Specialty Drying Frame Operator General Surgery 06/28/20 Jenna Claudio PA-C [address] [place], [place] [id number] Referring General Surgery 02/09/22 Shay Oro MD [address] [place], [place] [address] Consulting General Surgery 02/09/22 Lizbeth Pool MD [address] [place], [place] [address]271 Home Care Provider Family Medicine 02/09/22 Delaney Mora APRN.ALMOND ROASTER [address] [place], [place] 16[address]91 Leadership Program Associate Internal Medicine 07/07/24 Luana Tripathi APRN.PANEL ASSEMBLER [address] [place], [place] [address]6811 Leadership Program Associate Internal Medicine 09/02/24 Bike Designer Relationship Specialty Start Date End Date Greg Abrams MD [address] [place], [place] 8[address]861 PCP - General Internal Medicine 07/06/22 Natasha Ray MD [address], [place] [id number] Cardiology 05/18/20 Vonnie Esparza MD [address] [place], [place] [id number] Specialty Drying Frame Operator General Surgery 06/28/20 Jenna Claudio PA-C [address] [place], [place] [id number] Referring General Surgery 02/09/22 Shay Oro MD [address] [place] [address] Consulting General Surgery 02/09/22 Lizbeth Pool MD [address] [place], [place] [address] Home Care Provider Family Medicine 02/09/22 Delaney Mora APRN.ALMOND ROASTER [address] [facility] [place] [address] Leadership Program Associate Internal Medicine 07/07/24 Luana Tripathi APRN.PANEL ASSEMBLER [address] [place], [place] 506331 Leadership Program Associate Internal Medicine 09/02/24 Bike Designer Relationship Specialty Start Date End Date Greg Abrams MD [address] [place], [place] [address]31 PCP - General Internal Medicine 07/06/22 Natasha Ray MD [address], [place] [address]761 Cardiology 05/18/20 Vonnie Esparza MD [address] [place], [place] [id number] Specialty Drying Frame Operator General Surgery 06/28/20 Jenna Claudio PA-C [address] [place], [place] [phone] Referring General Surgery 02/09/22 Shay Oro MD [address] [place], [place] 201143 Consulting General Surgery 02/09/22 Lizbeth Pool MD [address] [place], [place] 759311 Home Care Provider Family Medicine 02/09/22 Delaney Mora APRN.ALMOND ROASTER [address] [place], [place] 468481 Leadership Program Associate Internal Medicine 07/07/24 Luana Tripathi APRN.PANEL ASSEMBLER [address] [place], [place] 610341 Leadership Program Associate Internal Medicine 09/02/24 Bike Designer Relationship Specialty Start Date End Date Greg Abrams MD [address] [place], [place] 28[address]81 PCP - General Internal Medicine 07/06/22 Natasha Ray MD [address], [place] [id number] Cardiology 05/18/20 Vonnie Esparza MD [address] [place], [place] [phone] Specialty Drying Frame Operator General Surgery 06/28/20 Jenna Claudio PA-C [address] [place], [place] [phone] Referring General Surgery 02/09/22 Shay Oro MD [address] [place] [address] Consulting General Surgery 02/09/22 Lizbeth Pool MD [address] [place] [address] Home Care Provider Family Medicine 02/09/22 Delaney Mora APRN.ALMOND ROASTER [address] [place], [place] 9[address]11 Leadership Program Associate Internal Medicine 07/07/24 Luana Tripathi APRN.PANEL ASSEMBLER [address] [place] [address] Leadership Program Associate Internal Medicine 09/02/24 Bike Designer Relationship Specialty Start Date End Date Greg Abrams MD [address] [facility] [place] [address] PCP - General Internal Medicine 07/06/22 Natasha Ray MD [address] [facility] [place] [address] Cardiology 05/18/20 Vonnie Esparza MD [address] [place], [place] [id number] Specialty Drying Frame Operator General Surgery 06/28/20 Jenna Claudio PA-C [address] [place], [place] [phone] Referring General Surgery 02/09/22 Shay Oro MD [address] [place], [place] 535603 Consulting General Surgery 02/09/22 Lizbeth Pool MD [address] [facility] [place] [address] Home Care Provider Family Medicine 02/09/22 Delaney Mora APRN.ALMOND ROASTER [address] [place] [address] Leadership Program Associate Internal Medicine 07/07/24 Luana Tripathi APRN.PANEL ASSEMBLER [address] [place] [address] Leadership Program Associate Internal Medicine 09/02/24 Bike Designer Relationship Specialty Start Date End Date Greg Abrams MD [address] [place], [place] 595251 PCP - General Internal Medicine 07/06/22 Natasha Ray MD [address], [place] 505371 Cardiology 05/18/20 Vonnie Esparza MD [address] [place], [place] [phone] Specialty Drying Frame Operator General Surgery 06/28/20 Jenna Claudio PA-C [address] [place], [place] [phone] Referring General Surgery 02/09/22 Shay Oro MD [address] [place], [place] [address]13 Consulting General Surgery 02/09/22 Lizbeth Pool MD [address] [place] [address] Home Care Provider Family Medicine 02/09/22 Luana Tripathi APRN.PANEL ASSEMBLER [address] [place], [place] 897871 Leadership Program Associate Internal Medicine 03/23/24 09/01/24 Delaney Mora APRN.ALMOND ROASTER [address] [place], [place] 976451 Leadership Program Associate Internal Medicine 07/07/24 Luana Tripathi APRN.PANEL ASSEMBLER [address] [place], [place] 045991 Leadership Program Associate Internal Medicine 09/02/24 Bike Designer Relationship Specialty Start Date End Date Greg Abrams MD [address] [place], [place] [address]301 PCP - General Internal Medicine 07/06/22 Natasha Ray MD [address], [place] [id number] Cardiology 05/18/20 Vonnie Esparza MD [address] [place], [place] [phone] Specialty Drying Frame Operator General Surgery 06/28/20 Jenna Claudio PA-C [address] [place], [place] [phone] Referring General Surgery 02/09/22 Shay Oro MD [address] [place] [address]173 Consulting General Surgery 02/09/22 Lizbeth Pool MD [address] [place], [place] 445011 Home Care Provider Family Medicine 02/09/22 Delaney Mora APRN.ALMOND ROASTER [address] [place] [address] Leadership Program Associate Internal Medicine 07/07/24 Luana Tripathi APRN.PANEL ASSEMBLER [address] [place] [address] Leadership Program Associate Internal Medicine 09/02/24 Team Status: Active Member Role/Relationship Status Dates Dr. Gerg Abrams MD Primary Care Provider Active Team Status: Inactive Member Role/Relationship Status Dates Dr. Greg Abrams MD Primary Care Provider Active Start: July 31, 2024 End: July 31, 2024 Dr. Greg Abrams MD Referring Provider Active Start: July 31, 2024 End: July 31, 2024 Toni Quintana MD Attending Provider Active St art: July 31, 2024 End: July 31, 2024 Team Status: Inactive Member Role/Relationship Status Dates Dr. Greg Abrams MD Primary Care Provider Active Start: November 27, 2024 End: November 27, 2024 Dr. Russell Anthony MD Emergency Provider Active S tart: November 27, 2024 End: November 27, 2024 Bike Designer Relationship Specialty Start Date End Date Greg Abrams MD [address] [place] [address] PCP - General Internal Medicine 07/06/22 Natasha Ray MD [address], [place] 848181 Cardiology 05/18/20 Vonnie Esparza MD [address] [place], [place] [id number] Specialty Drying Frame Operator General Surgery 06/28/20 Jenna Claudio PA-C [address] [place], [place] [phone] Referring General Surgery 02/09/22 Shay Oro MD [address] [place], [place] [address]303 Consulting General Surgery 02/09/22 Lizbeth Pool MD [address] [place], [place] 925251 Home Care Provider Family Medicine 02/09/22 Delaney Mora LEARNING DISABILITIES TEACHER.ALMOND ROASTER [address] [facility] [place] [address] Leadership Program Associate Internal Medicine 07/07/24 Luana Tripathi, LEARNING DISABILITIES TEACHER.PANEL ASSEMBLER [address] [place], [place] 498741 Leadership Program Associate Internal Medicine 09/02/24 Bike Designer Relationship Specialty Start Date End Date Greg Abrams MD [address] [place], [place] [address]7421 PCP - General Internal Medicine 07/06/22 Natasha Ray MD [address], [place] [id number] Cardiology 05/18/20 Vonnie Esparza MD [address] [place], [place] [phone] Specialty Drying Frame Operator General Surgery 06/28/20 Jenna Claudio PA-C [address] [place], [place] [phone] Referring General Surgery 02/09/22 Shay Oro MD [address] [place] [address] Consulting General Surgery 02/09/22 Lizbeth Pool MD [address] [place], [place] [id number] Home Care Provider Family Medicine 02/09/22 Delaney Mora LEARNING DISABILITIES TEACHER.ALMOND ROASTER [address] [place], [place] [address]281 Leadership Program Associate Internal Medicine 07/07/24 Luana Tripathi, LEARNING DISABILITIES TEACHER.PANEL ASSEMBLER [address] [place], [place] 222661 Leadership Program Associate Internal Medicine 09/02/24 Team Status: Active Member Role/Relationship Status Dates Dr. Greg Abrams MD Primary care physician Active Team Status: Inactive Member Role/Relationship Status Dates Dr. Greg Abrams MD Primary care physician Active Start: November 27, 2024 End: November 27, 2024 Dr. Russell Anthony MD Attending physician Active Start: November 27, 2024 End: November 27, 2024 Dr. Russell [facility] Active Start: November 27, 2024 End: November 27, 2024 Team Status: Inactive Member Role/Relationship Status Dates Dr. Greg Abrams MD Primary care physician Active Start: December 30, 2024 End: December 30, 2024 Dr. Lesvia Milner MD Attending physician Active Start: December 30, 2024 End: December 30, 2024 Dr. Lesvia Milner MD Referring Provider Active Start: December 30, 2024 End: December 30, 2024 Team Status: Inactive Member Role/Relationship Status Dates Dr. Greg Abrams MD Primary care physician Active Start: January 08, 2025 End: January 08, 2025 Dr. Greg Abrams MD Referring Provider Active Start: January 08, 2025 End: January 08, 2025 DARREN Joyce Attending physician Active Start: January 08, 2025 End: January 08, 2025 Team Status: Active Member Role/Relationship Status Dates Dr. Greg Abrams MD Primary care physician Active Start: January 19, 2025 Dr. Greg Abrams MD Referring Provider Active Start: January 19, 2025 SLICK Johnson Attending physician Active Start: January 19, 2025 Team Status: Inactive Member Role/Relationship Status Dates Dr. Greg Abrams MD Primary care physician Active Start: January 19, 2025 End: January 19, 2025 Dr. Grant Obrien MD Attending physician Active Start: January 19, 2025 End: January 19, 2025 Team Status: Inactive Member Role/Relationship Status Dates Dr. Greg Abrams MD Primary care physician Active Start: January 19, 2025 End: January 19, 2025 Dr. Greg Abrams MD Referring Provider Active Start: January 19, 2025 End: January 19, 2025 SLICK Johnson Attending physician Active Start: January 19, 2025 End: January 19, 2025 Goals (unrecognized section and content) Goals may be documented in a n alternate sectionGoals may be documented in an alternate sectionGoals may be documented in an alternate sectionGoals may be documented in an alternate sectionGoals may be documented in an alternate sectionGoals may be documented in an alternate sectionGoals may be documented in an alternate sectionGoals may be documented in an alternate sectionGoals may be documented in an alternate sectionGoals may be documented in an alternate sectionGoals may be documented in an alternate sectionGoals may be documented in an alternate sectionGoals may be documented in an alternate section FOR RECORDS PERTAINING TO PATIENTS WHO ARE OR HAVE BEEN ENROLLED IN A CHEMICAL DEPENDENCY/SUBSTANCEABUSE PROGRAM, SOME INFORMATION MAY BE OMITTED. This clinical summary was aggregated from multiple sources. Caution should be exercised in using it in the provision of clinical care. This summary normalizes information from multiple sources, and as a consequence, information in this document may materially change the coding, format and clinical context of patient data. In addition, data may be omitted in some cases. CLINICAL DECISIONS SHOULD BE BASED ON THE PRIMARY CLINICAL RECORDS. [employer] provides no warranty or guarantee of the accuracy or completeness of information in this document.
[2025-03-06 05:45] LABS: Hematocrit 40.0 % (37-47); Hemoglobin 13.4 g/dL (12.0-15.0); Immature Granulocytes Count 0.020 X10^3/uL (0.0-0.0); Mean Corp Hgb Conc 33.5 g/dL (32-36); Mean Corpuscular Volume 95.7 fL (81-99); Mean Platelet Vol. 11.1 fl (6.2-12.0); NRBC Flagged by Analyzer 0 % (0-5); Platelet Count 240 K/mm3 (150-450); RBC Distribution Width CV 15.0 % (11.6-14.6); RBC Distribution Width SD 53.3 fl (35.1-43.9); Red Blood Count 4.18 M/mm3 (4.2-5.4); White Blood Count 7.1 K/mm3 (4.4-11.0)
[2025-03-06 05:52] LABS: Mucous, Urine 0 SEEN /hpf (<or=2+); Red Blood Cells-Urine 0 SEEN /hpf (0-5); Squamous Epithelial Cells - UA 0 SEEN /hpf (5-10)
[2025-03-06 05:54] LABS: Color, Urine Straw (Yellow); Glucose, Dipstick Normal (Normal); Ketone-Dipstick Negative (Negative); Leukocyte Esterase-Dipstick 100 /ul (Negative); Nitrite-Dipstick Negative (Negative); Occult Blood-Urine Negative /ul (Negative); Protein-Dipstick 15 mg/dl (Negative); Specific Gravity, Urine 1.010 (1.002-1.030); Urine Bilirubin Dipstick Negative (Negative)
[2025-03-06 05:59] LABS: Ammonia 12.4 umol/L (11-51)
--- NOTE | 2025-03-06 06:05 | ED.RN ---
Was guiding the pt back to her room from the bathroom and she swore up and down that he daughter was in the the department and that this nurse was talking to her. Pt was also paranoid about leaving her items in room 2 while she went to the bathroom,felt that they are going to get my stuff. when asked who,she replied them. At one time was the pt was laying in the bed she was trying to catch something in the air that was not there.
[2025-03-06 06:18] LABS: Acetaminophen (Tylenol) Level < 5.0 ug/mL (8.0-19.0); Alcohol, Blood (Medical)-Serum 59.8 mg/dL (<=10.0); Salicylate < 0.5 mg/dL (2.8-20.0)
[2025-03-06 06:25] LABS: AST(SGOT) 41 U/L (<=31); Alanine Aminotransfer ALT/SGPT 32 U/L (<=34); Albumin, Serum 4.6 g/dL (3.4-4.8); Alkaline Phosphatase 69 U/L (35-104); Anion Gap 18 (5-15); BUN 17 mg/dL (4-19); BUN/Creat Ratio 16.9 RATIO (10-20); Bilirubin, Direct 0.17 mg/dL (0.00-0.30); Calcium,Total 9.9 mg/dL (7.6-11.0); Carbon Dioxide 20.3 mmol/L (21.0-32.0); Chloride 99 mmol/L (98-108); Estimated Creatinine Clearance 42.31 ml/min (50-250); Globulin 2.8 g/dL (2.2-4.2); Glucose 112 mg/dL (70-99); Potassium 3.8 mmol/L (3.3-5.1)
[2025-03-06 06:30] LABS: Barbiturate Urine NEGATIVE (< 200 ng/mL); Benzodiazepine Urine NEGATIVE (< 200 ng/mL); PCP Urine NEGATIVE (< 25 ng/mL); THC Urine NEGATIVE (< 50 ng/mL)
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
[2025-03-06 07:00] VITALS: BP 126/78; PULSE 125; RESP 16; O2SAT 95
[2025-03-06] MEDS: 0.9% Normal Saline (1000mL) 1,000 ML 999 ML IV (07:27)
[2025-03-06] MEDS: Ziprasidone IM 20 MG/ML VIAL 10 MG IM (08:06)
--- NOTE | 2025-03-06 08:34 | PCA ---
This us called crisis this morning at 0646 to set up eval for this patient. Mackenzie called back and came and evaluated, decided placement. pink slipped copied and put in the chart. shai called with acceptance and stated she is going to the [place] location, non n2n needed as everything should be in the packet faxed over pink slipped that was filled out and waiting for call back to set up transport.
[2025-03-06 09:00] VITALS: BP 125/60; PULSE 117; RESP 22; O2SAT 94
[2025-03-06 10:55] VITALS: BP 125/60; PULSE 117; RESP 22; TEMP 36.7; O2SAT 94
--- NOTE | 2025-03-08 17:33 | CM.ED ---
Social Work Spoke with patient's sister Meli Rutledge on the phone ([phone]), who was looking for help regarding this patient's recent ED stay. The sister shared patient was just transferred out of the ED to a psychiatric facility and was hoping to get POAHC established for patient but does not know how to go about this. Sister reports that she and patient's daughters have been researching and believe the patient has undiagnosed Lewy Body Dementia. The sister expresses much concern that patient will be prescribed medication detrimental to patient's alf safety, such as if patient has this diagnosis, the sister read that Haldol can be fatal. Much supportive listening provided. Without sharing any details regarding the patient's stay: Educated how to get a POAHC established Encouraged the sister to call and speak with the social welfare administrator assigned to the patient, at whatever psychiatric unit patient is at. Educated can call the patient advocate if no one at the facility will listen to the family's concerns. Educated the facility may not be able to share information but can listen. Educated sister to other geropsychiatric units, at the sister's request to know other options which may be closer to [facility]. The sister shared concern that patient has history of Cdiff and has been receiving treatment for this over the last 3 months, though admittedly has not been taking as prescribed, consistently at least, due to regiment being every 6 hours and patient is hard of hearing to hear the alarm reminders. This grant writer gently broached that patient may be at the place to have some increased supervision for help with medication management, once patient is ready for discharge from psychiatric unit. Encouraged to speak with the social welfare administrator at the facility. Sister expressed appreciation for social welfare administrator's time and information provided this date. No other services requested or indicated. -SPENCER Leigh
== END 2025-03-06 11:05 ==
PROVIDERS: Emergency Provider Emergency Medicine; PCP Internal Medicine; Visit Provider Emergency Medicine
DX: R41.0 Disorientation, unspecified (principal); J44.9 Chronic obstructive pulmonary disease, unspecified; F10.139 Alcohol abuse with withdrawal, unspecified; G93.40 Encephalopathy, unspecified; E78.00 Pure hypercholesterolemia, unspecified; F17.200 Nicotine dependence, unspecified, uncomplicated; Z86.73 Personal history of transient ischemic attack (TIA), and cerebral infarction without residual deficits; F41.9 Anxiety disorder, unspecified; Z79.899 Other long term (current) drug therapy; G43.909 Migraine, unspecified, not intractable, without status migrainosus; Z79.51 Long term (current) use of inhaled steroids; G25.81 Restless legs syndrome; Z98.51 Tubal ligation status; Z90.49 Acquired absence of other specified parts of digestive tract
CPT/HCPCS: 70450; 80048; 80076; 80143; 80179; 80307; 81001; 82077; 82140; 84443; 85025; 93005; 96361; 96372; 96374; 96375; 99285; A4216